=== PATIENT | female | born 1960 | race Caucasian/White ===

== ENCOUNTER 2018-02-24 00:49 | Outpatient (CLI) | payer BC, SELFPAY ==
--- NOTE | 2018-02-24 16:10 | DI.MAMMO_ITS ---
SYMPTOM/DIAGNOSIS: SCREENING, Z12.31 MAMMOGRAMS: Mammograms were interpreted according to the usual protocol including computer analysis with CAD system, tomosynthesis and C view imaging. Comparison is made with prior examinations. Breast density, Category B. No masses or microcalcifications are seen. There is nothing to suggest malignancy. IMPRESSION: Negative mammogram. Routine screening is recommended. Category 1. MQSA ASSESSMENT OF FINDINGS: Negative. Category 1. Patient will receive a letter notifying them of these results. BI-RADS category B. There are scattered areas of fibroglandular density.
== END 2018-02-24 01:09 ==
PROVIDERS: PCP Nurse Practitioner; Visit Provider Nurse Practitioner
DX: Z12.31 Encounter for screening mammogram for malignant neoplasm of breast (principal)
CPT/HCPCS: 77063; 77067

== ENCOUNTER 2018-02-27 07:25 | Outpatient (CLI) | payer BC, SELFPAY ==
[2018-02-27 07:48] LABS: HCT 43.3 % (36.0-46.0); HGB 15.2 g/dL (12.0-15.5); Mean Corp. HGB Concentration 35.1 g/dL (32.0-36.0); Mean Corpuscular Hemoglobin 34.6 pg (27.0-33.0); Mean Corpuscular Volume 98.6 fL (80-95); Mean Platelet Volume 9.2 fL (8.0-11.0); Platelet Count 277 x1000/uL (130-400); RBC 4.39 m/cumm (4.00-5.20); RBC Distribution Width 11.6 % (11.7-14.6); White Blood Cell Count 5.58 k/cumm (4.4-10.8)
[2018-02-27 08:34] LABS: ALT 23 U/L (12-78); AST 16 U/L (15-37); Albumin 3.8 g/dL (3.4-5.0); Alkaline Phosphatase 68 U/L (46-116); Anion Gap 9.7 mmol/L (3-11); BUN 15 mg/dL (7-18); Bilirubin, Total 1.1 mg/dL (0.2-1.0); CO2 28.3 mmol/L (21.0-32.0); Calcium 9.3 mg/dL (8.5-10.1); Chloride 101 mmol/L (98-107); Cholesterol 236 mg/dL (50-200); Glucose 100 mg/dL (70-100); HDL Cholesterol 92 mg/dL (40-60); LDL CHOLESTEROL 127 mg/dL (<100); Potassium 4.2 mmol/L (3.5-5.1); Sodium 139 mmol/L (136-145); TSH (W/Ref FT4) 2.96 uIU/mL (0.358-3.74); Total Protein 6.7 g/dL (6.4-8.2); Triglyceride 70 mg/dL (30-150)
== END 2018-02-27 07:45 ==
PROVIDERS: PCP Nurse Practitioner; Visit Provider Nurse Practitioner
DX: I35.0 Nonrheumatic aortic (valve) stenosis (principal); I47.1 Supraventricular tachycardia; E78.5 Hyperlipidemia, unspecified; R79.89 Other specified abnormal findings of blood chemistry
CPT/HCPCS: 36415; 80053; 80061; 83721; 85027; 84443

== ENCOUNTER 2018-04-17 03:14 | Emergency (ER) | payer BC, SELFPAY ==
[2018-04-17] VITALS (59 sets, daily range): BP systolic 120–176; BP diastolic 69–101; PULSE 63–89; RESP 9–27; TEMP 36.8; O2SAT 94–98
--- NOTE | 2018-04-17 03:39 | W.ED.GENAD ---
Discharge Plan Disposition Patient Disposition: [facility] INPATIENT Condition: Good Discharge Details Chief Complaint: Chest Pain Clinical Impression: Chest pain Primary Care Provider: Evelyne Hunt ED Provider: Yovani Barrera [place] Meds and New Rx's Prescriptions: No Action atorvastatin 10 mg tablet 10 mg PO DAILY RF: 0 biotin 5 mg capsule 5 mg PO DAILY RF: 0 diltiazem HCl 180 mg capsule,extended release 24hr 180 mg PO DAILY Qty: 90 RF: 3 clobetasol-emollient 0.05 % cream 15 gm Topical BID Qty: 1 RF: 5 Estring 2 mg (7.5 mcg /24 hour) ring 1 vag ring VG [id number] Qty: 1 RF: 5 hydrochlorothiazide 25 MG tablet 25 mg PO DAILY Qty: 90 RF: 3 diltiazem HCl 30 MG tablet 30 mg PO PRN Qty: 30 RF: 0 bupropion HCl [Wellbutrin XL] 300 mg tablet extended release 24 hr 300 mg PO QAM Qty: 90 RF: 3 Medical Decision Making Patient presenting with atypical chest pain lasting minutes. She does have risk factors. Her EKG is sinus rhythm at a rate of 89. She has subtle ST depression in V3 through V6 that is nondiagnostic. May have a little depression in lead II but otherwise the limb leads look good. There is no ST elevation. She is given aspirin. She is not having chest pain here. IV established and laboratory studies obtained. Chest x-ray obtained. Laboratory studies unremarkable other than being hemoconcentrated. First troponin negative. D-dimer negative. Chest x-ray per my review unremarkable. Patient's HEART score is [address] and with the ST depression despite the atypical presentation, I feel observation admission and stress testing is appropriate. Case discussed with hospitalist. Patient accepted for admission. Lab Data Lab results reviewed: Yes I reviewed the patient's lab results. ECG Data Attestation: I personally reviewed and interpreted this ECG (s) as follows: Prior ECG tracings: available for review Interpretation: Normal sinus rhythm at 89. Normal axis and intervals. ST depression noted in V3 through V6 approximately one box. Possible mild depression in lead II. This is new compared to old. HPI General Mode of arrival: ambulatory. Date/Time Provider Initiated Documentation: 04/17/18 03:38. Limitations to Documentation: no limitations. Information obtained by: patient. HPI Narrative: Patient presents to ED with complaint of chest pain. Patient reports that she has had intermittent left-sided chest pain lasting minutes at a time. It does not radiate anywhere. She has no associated symptoms with it. She has no trauma. She has not been ill. She has never had this before. She has known SVT and aortic stenosis. She does have high blood pressure and high cholesterol. She has brothers with heart disease at young age. She has not smoked in a long time. She is not having chest pain currently. Related Data Home Medications Medication Instructions Recorded Confirmed hydrochlorothiazide 25 mg PO DAILY #90 tab 04/23/17 04/17/18 diltiazem HCl 30 mg PO PRN #30 tab-cap 09/03/17 04/17/18 bupropion HCl XL 300 mg 24 hr 300 mg PO QAM #90 tab 12/23/17 04/17/18 tablet, extended release atorvastatin 10 mg tablet 10 mg PO DAILY 12/30/17 04/17/18 biotin 5 mg capsule 5 mg PO DAILY 02/04/18 04/17/18 diltiazem CD 180 mg 180 mg PO DAILY #90 tab-cap 02/04/18 04/17/18 capsule,extended release 24 hr clobetasol-emollient 0.05 % 15 gm TOPICAL BID #1 tube 03/09/18 04/17/18 topical cream estradiol 2 mg (7.5 mcg/24 hour) 1 vag ring VG [id number] #1 each 03/09/18 04/17/18 vaginal ring Previous Rx's Medication Instructions Recorded hydrochlorothiazide 25 mg PO DAILY #90 tab 04/23/17 diltiazem HCl 30 mg PO PRN #30 tab-cap 09/03/17 bupropion HCl XL 300 mg 24 hr 300 mg PO QAM #90 tab 12/23/17 tablet, extended release diltiazem CD 180 mg 180 mg PO DAILY #90 tab-cap 02/04/18 capsule,extended release 24 hr clobetasol-emollient 0.05 % 15 gm TOPICAL BID #1 tube 03/09/18 topical cream estradiol 2 mg (7.5 mcg/24 hour) 1 vag ring VG [id number] #1 each 03/09/18 vaginal ring Allergies Allergy/AdvReac Type Severity Reaction Status Date / Time paroxetine Allergy Intermediate Unverified 04/17/18 03:39 penicillin V Allergy Intermediate Unverified 04/17/18 03:39 sertraline AdvReac Intermediate Unverified 04/17/18 03:39 venlafaxine AdvReac Intermediate Unverified 04/17/18 03:39 General Stated Complaint: Chest Pain KADY: 2 Review of Systems Review of Systems All systems reviewed & are unremarkable except as noted in HPI and below Constitutional Denies body ache(s), Denies chills, Denies fatigue, Denies fever(s), Denies headache(s), Denies malaise and Denies weakness Eyes Denies change in vision, Denies eye discharge and Denies eye pain ENT Denies otalgia, Denies facial pain, Denies headache(s), Denies nasal congestion, Denies neck pain, Denies sinus pain and Denies sore throat Cardiovascular Reports chest pain, Denies diaphoresis, Denies syncope, Denies pedal edema, Denies edema, Denies lightheadedness, Denies radiating jaw, neck or arm pain, Denies palpitations, Denies dyspnea and Denies dyspnea on exertion Respiratory Denies cough, Denies pain on inspiration, Denies pain with cough, Denies dyspnea and Denies dyspnea on exertion Gastrointestinal Denies abdominal pain, Denies diarrhea, Denies nausea and Denies vomiting Genitourinary Denies hematuria, Denies dysuria and Denies pelvic pain Musculoskeletal Denies back pain, Denies myalgias, Denies arthralgias, Denies neck pain and Denies numbness Integumentary/Breasts Denies erythema and Denies rash Neurologic Denies confusion, Denies syncope, Denies headache(s), Denies focal weakness, Denies numbness and Denies weakness Psychiatric Denies confusion Endocrine Denies fatigue and Denies palpitations [facility] Medical History Elevated cholesterol Depression Hypertension Dyspareunia (Acute 12/02/14) Atrophic vaginitis (Chronic 11/28/16) 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 [employer] frequency: 5-6 times per week Smoking/Tobacco Use Status: Former Tobacco Use alcohol intake: current alcohol intake frequency: 0-2 drinks per day Alcohol type: wine substance use type: does not use Female Reproductive History Menstrual control method: none Menopause type: natural Date of menopause: 04/21/10 (approximately 50yo) History History 2 Para Hx # Term Pregnancies 2 Multiple births Hx # Pregnancies 0 Ectopic pregnancies 0 AB induced Hx Number of Living Children AB spontaneous Exam Const General: cooperative, comfortable and no acute distress Orientation: alert and oriented x3 HENMT Head: normocephalic and atraumatic Mouth: moist mucous membranes Eyes Conjunctivae: conjunctivae normal Pupils: PERRL EOM: EOM intact bilaterally Neck Neck: normal visual inspection, trachea midline and supple Chest Chest: no tenderness Resp Effort & Inspection: normal respiratory effort Auscultation: clear to auscultation bilaterally Cardio Rate: regular rate Rhythm: regular rhythm Heart Sounds: S1 normal, S2 normal and murmur Pulses: normal peripheral pulses GI Inspection: non-distended Palpation: soft, not firm, no guarding and nontender Skin General skin exam: no erythema Rashes: no rashes Trauma: no lacerations or abrasions Other: warm and dry Neuro General: alert, oriented x3, no focal motor deficits and CN's II-XI intact bilaterally Cognition: normal cognition Speech: speech normal Sensory Exam: no sensory deficits noted Extrem General: normal to inspection, full ROM, no clubbing, cyanosis or edema and no calf tenderness Psych Appearance: grossly normal Mental Status: mental status grossly normal Affect: normal affect Attitude: cooperative Course Vital Signs Temperature 98.2 F 04/17/18 03:35 Pulse 78 04/17/18 03:35 Respiratory Rate 12 04/17/18 03:35 Blood Pressure 166/87 H 04/17/18 03:35 Pulse Oximetry 97 04/17/18 03:35 Temperature 98.2 F 04/17/18 03:35 Temperature Source Temporal Artery Scan 04/17/18 03:35 Pulse 78 04/17/18 03:35 Respiratory Rate 12 04/17/18 03:35 Respiratory Effort Non-Labored 04/17/18 03:35 Blood Pressure 166/87 H 04/17/18 03:35 Blood Pressure Position Sitting 04/17/18 03:35 Pulse Oximetry 97 04/17/18 03:35 Oxygen Delivery Method Room Air 04/17/18 03:35 Oxygen Flow Rate 0 04/17/18 03:35 Pain Level 7 04/17/18 03:35
[2018-04-17 03:55] LABS: Abs Immature Grans 0.01 k/cumm (0.0-0.09); Absolute Basophil Count 0.09 k/cumm (0.0-0.2); Absolute Eosinophil Count 0.27 k/cumm (0.0-0.7); Absolute Neutrophil Count 2.97 k/cumm (1.2-6.7); Basophils % 1.5; Eosinophils % 4.6; HCT 47.4 % (36.0-46.0); HGB 16.6 g/dL (12.0-15.5); Immature Grans % 0.2; Lymphocytes % 34.2; Mean Corpuscular Hemoglobin 34.4 pg (27.0-33.0); Mean Corpuscular Volume 98.3 fL (80-95); Mean Platelet Volume 9.4 fL (8.0-11.0); Monocytes % 8.6; Neutrophils % 50.9; Platelet Count 284 x1000/uL (130-400); RBC 4.82 m/cumm (4.00-5.20); RBC Distribution Width 11.5 % (11.7-14.6); White Blood Cell Count 5.84 k/cumm (4.4-10.8)
[2018-04-17] MEDS: Aspirin 81 MG CHEW 324 MG CH (03:55)
--- NOTE | 2018-04-17 04:00 | DI.RAD_ITS ---
SYMPTOM/DIAGNOSIS: CHEST PAIN PA AND LATERAL CHEST; The heart is normal in size. The lungs are clear. The mediastinal structures and pleura appear intact. CONCLUSION: Normal chest. No evidence of acute cardiopulmonary disease.
[2018-04-17 04:10] LABS: ALT 27 U/L (12-78); AST 18 U/L (15-37); Albumin 4.2 g/dL (3.4-5.0); Alkaline Phosphatase 86 U/L (46-116); Anion Gap 9.4 mmol/L (3-11); BUN 12 mg/dL (7-18); Bilirubin, Total 0.7 mg/dL (0.2-1.0); CO2 28.6 mmol/L (21.0-32.0); CREATININE 0.68 mg/dL (0.55-1.02); Calcium 9.6 mg/dL (8.5-10.1); Chloride 101 mmol/L (98-107); Glucose 107 mg/dL (70-100); Potassium 3.8 mmol/L (3.5-5.1); Sodium 139 mmol/L (136-145); Total Protein 8.1 g/dL (6.4-8.2)
[2018-04-17 04:12] LABS: Troponin I < 0.02 ng/mL (0.00-0.06)
[2018-04-17 04:25] LABS: D-Dimer 202 ng/mlFEU (<500)
--- NOTE | 2018-04-17 05:45 | DI.VRAD_ITS ---
EXAM: XR Chest, 2 Views EXAM DATE/TIME: 04/17/2018 3:49 AM CLINICAL HISTORY: 57 years old, female; Pain; Chest pain; Type not specified; Patient HX: Chest pain since last evening, no prior surgery TECHNIQUE: XR of the chest, 2 views. COMPARISON: CR LEFT RIBS TO INCLUDE CXR 07/07/2017 4:05 PM FINDINGS: Lungs: The lung rodríguez appear clear bilaterally. Pleural space: No pleural effusion or pneumothorax is seen. Heart/Mediastinum: The heart is normal in size. The mediastinal contours appear normal. Bones/joints: The visualized bony structures appear grossly intact. IMPRESSION: No active disease is seen in the chest. Dictated and Authenticated by: Alessandro Zaidi MD. Ordering:NEYDA Pina MD
[2018-04-17 07:45] LABS: Troponin I 0.02 ng/mL (0.00-0.06)
== END 2018-04-17 10:24 | disposition short-term general hospital (02) ==
PROVIDERS: Emergency Medicine; Emergency Provider Student in an Organized Health Care Education/Training Program; PCP Nurse Practitioner
DX: R07.9 Chest pain, unspecified (principal); I47.1 Supraventricular tachycardia; I35.0 Nonrheumatic aortic (valve) stenosis; I10 Essential (primary) hypertension; E78.5 Hyperlipidemia, unspecified; Z82.49 Family history of ischemic heart disease and other diseases of the circulatory system
CPT/HCPCS: 36415; 80053; 93005; 96374; 99285; 71046; 83735; 84484; 85025; 85379; 93010; J2405

== ENCOUNTER 2019-04-08 07:41 | Outpatient (CLI) | payer OTHER, SELFPAY ==
[2019-04-08 08:07] LABS: HCT 43.4 % (36.0-46.0); HGB 15.1 g/dL (12.0-15.5); Mean Corp. HGB Concentration 34.8 g/dL (32.0-36.0); Mean Corpuscular Hemoglobin 33.9 pg (27.0-33.0); Mean Corpuscular Volume 97.3 fL (80-95); Mean Platelet Volume 9.4 fL (8.0-11.0); Platelet Count 277 x1000/uL (130-400); RBC 4.46 m/cumm (4.00-5.20); RBC Distribution Width 11.5 % (11.7-14.6); White Blood Cell Count 5.29 k/cumm (4.4-10.8)
[2019-04-08 09:30] LABS: ALT 25 U/L (14-59); AST 15 U/L (15-37); Albumin 4.1 g/dL (3.4-5.0); Alkaline Phosphatase 71 U/L (46-116); Anion Gap 8.5 mmol/L (3-11); BUN 14 mg/dL (7-18); Bilirubin, Total 0.9 mg/dL (0.2-1.0); CO2 28.5 mmol/L (21.0-32.0); CREATININE 0.72 mg/dL (0.55-1.02); Calcium 9.1 mg/dL (8.5-10.1); Calculated LDL 134 mg/dL; Chloride 102 mmol/L (98-107); Cholesterol 239 mg/dL (<200); Glucose 88 mg/dL (74-106); HDL Cholesterol 88 mg/dL (40-60); Potassium 3.9 mmol/L (3.5-5.1); Sodium 139 mmol/L (136-145); Total Protein 7.4 g/dL (6.4-8.2); Triglyceride 88 mg/dL (<150)
== END 2019-04-08 08:01 ==
PROVIDERS: PCP Nurse Practitioner; Visit Provider Nurse Practitioner
DX: E78.5 Hyperlipidemia, unspecified (principal)
CPT/HCPCS: 36415; 80053; 80061; 85027

== ENCOUNTER 2019-05-05 13:37 | Outpatient (CLI) | payer OTHER, SELFPAY ==
--- NOTE | 2019-05-05 14:00 | DI.US_ITS ---
APPROVED REPORT EXAM: Comprehensive 2D, Doppler, and color-flow Echocardiogram Patient Location: Out-Patient Undercutter: Luana Tariq RDCS (AE) Rhythm: NSR Indications: non rheumatic moderate aortic stenosis i35.0 Conclusion Left Ventricle : The left ventricle is normal size. There is normal left ventricular wall thickness. The left ventricular systolic function is normal. The left ventricular ejection fraction is within th e normal range. There is normal LV segmental wall motion. Diastolic function is indeterminate. LVEF i s estimated to be 60-65%. Right Ventricle : The right ventricle is normal size. The right ventricular systolic function appears normal. Atria : The left atrium size is mildly dilated. The right atrium size is normal. Aortic Valve : Aortic valve leaflets are moderately thickened. Moderate aortic valve sclerosis. Aorti c valve is possibly bicuspid. Moderate regurgitation is present. Moderate to severe aortic stenosis ( mean gradient is 39 m mercury. Aortic valve area is 1.01 cm???). Mitral Valve : Mitral valve leaflets are mildly thickened. Mild mitral regurgitation. Mild mitral aly ve prolapse of PVML. No evidence of mitral valve stenosis. Tricuspid Valve : Tricuspid valve leaflets are midly thickened but open well. Mild tricuspid regurgit ation. Great Vessels : IVC is normal in size and collapses >50% with inspiration. Estimated RVSP is 27-30 m mHg. Compared to prior echocardiogram dated 08/28/2017, patient's aortic valve stenosis has worsened with a mean gradient increasing from 30 to 39 mmHg. LV dimensions remain within normal limits. Wall motion Left Ventricle The left ventricle is normal size. The left ventricular systolic function is normal. The left ventric ular ejection fraction is within the normal range. There is normal left ventricular wall thickness. T here is normal LV segmental wall motion. Diastolic function is indeterminate LVEF is estimated to be 60-65%. Right Ventricle The right ventricle is normal size. The right ventricular systolic function appears normal. Atria The left atrium size is mildly dilated. The right atrium size is normal. Aortic Valve Aortic valve leaflets are moderately thickened. Moderate aortic valve sclerosis. Aortic valve is poss ibly bicuspid. Moderate to severe aortic stenosis (mean gradient is 39 m mercury. Aortic valve area i s 1.01 cm???). Moderate regurgitation is present. Mitral Valve Mitral valve leaflets are mildly thickened. No evidence of mitral valve stenosis. Mild mitral regurgi tation. Mild mitral valve prolapse of PVML. Tricuspid Valve Tricuspid valve leaflets are midly thickened but open well. Mild tricuspid regurgitation. Great Vessels The aortic root is normal in size. The ascending aorta is top normal in size. IVC is normal in size a nd collapses >50% with inspiration. Estimated RVSP is 27-30 mmHg. Pericardium There is no pericardial effusion. 2D Dimensions IVSd 0.80 cm F: 0.6-1.0 LV EDV A2C 68.30 mL PWd 0.85 cm F: 0.6 - 1.0 LV EDV A4C 74.70 mL LVDd 4.95 cm F: 3.8 - 5.2 LA Volume Index A2C 39.32 mL/m2 LVDs 3.15 cm F: 2.2 - 3.5 LA Volume Index A4C 39.45 mL/m2 Aortic Root 3.25 cm F: 2.7 - 3.3 LA Volume Index Biplane 40.63 mL/m2 RVID Base (AP4) 3.40 cm (M/F) 2.5-4.1 LA Area A4C 20.58 cm2 RA Area A4C 16.44 cm2 LA Area A2C 21.19 cm2 LVOT 2.00 cm (M/F) 1.5-2.5 EF AP4 64.93 % Ascending Aorta 3.50 cm F: 2.3 - 3.1 EF AP2 55.93 % LVEF (Teich) 65.67 % EF BP 56.42 % LVEF (Arndt's) 56.42 % F: 54 - 74 IVC 2.01 cm LV Volume 56.59 mL F: 46 - 106 LV Volume Index 33.88 mL/m2 F: 29 - 61 FS 36.20 % LV Diastology E/A Ratio 1.3 MED E' 0.07 (>0.07 m/s) LV E/e MED 10.50 (<14) LAT E' 0.08 (>0.1 m/s) LV E/e LAT 9.10 (<14) Aortic Valve LVOT Area 3.21 cm2 LVOT Vmax 1.22 m/s LVOT Mean Kiko. 0.91 m/s LVOT Peak Gr. 6.0 mmHg LVOT Mean Gr. 3.7 mmHg AoV Area/ BSA (Vmax) 0.56 cm2/m2 LVOT VTI 0.300 m AoV Vmax 4.20 (0.5-1.3 m/s) SUDHAKAR Mean Kiko. Index 0.60 cm2/m2 AoV Mean Kiko. 2.92 m/s AoV Peak Grad 70.5 mmHg AI PHT 250.74 msec AoV Mean Grad 38.9 (<5 mmHg) AoV VTI 0.956 (0.18-0.25 m) AV Regurg Decel. 864.61 msec AoV Area VTI 1.01 (2.5-4.5 cm2) AoV Area/ BSA (VTI) 0.60 cm/m2 Mitral Valve MV E Max Kiko. 0.76 (0.4-1.3 m/s) MVA VTI 9.52 (4.0-6.0 cm2) MV A Velocity 0.60 (0.4-1.3 m/s) E/A Ratio 1.21 MV Decel. Time 201.45 (160-240 msec) MV PHT 58.43 msec MVA PHT 3.75 cm2 Pulmonary Valve PV Peak Velocity 0.82 (0.5-1.5 m/s) RVOT Peak Gr. 1.75 mmHg RVOT Peak Kiko. 0.66 m/s RVOT Mean Gr. 1.20 mmHg RVOT VTI 0.15 m Tricuspid Valve TR P. Velocity 2.61 m/s TV Regurg Vmax 2.61 m/s RAP Estimate 3.00 mmHg RVSP 30.19 mmHg TR P. Gradient 27.15 mmHg
== END 2019-05-05 13:57 ==
PROVIDERS: PCP Nurse Practitioner; Visit Provider Nurse Practitioner
DX: I35.2 Nonrheumatic aortic (valve) stenosis with insufficiency (principal); I34.1 Nonrheumatic mitral (valve) prolapse; I10 Essential (primary) hypertension; E78.5 Hyperlipidemia, unspecified
CPT/HCPCS: 93306

== ENCOUNTER 2019-07-05 10:38 | Outpatient (CLI) | payer OTHER, SELFPAY ==
--- NOTE | 2019-07-05 13:00 | DI.US_ITS ---
EXAM: US PELVIS AND TRANSVAGINAL CLINICAL HISTORY: PELVIC PAIN FOR TWO WEEKS, R10.2. TECHNIQUE: Transabdominal and transvaginal pelvic ultrasound was performed using standard protocol. COMPARISON: PELVIS TRANSVAG US from 05/19/2012 ABD PELVIS WITH CONTRAST from 08/26/2013 FINDINGS: KIDNEYS: Kidneys are symmetric in size. No evidence of renal calculi. No evidence of hydronephrosis. No renal mass or cyst identified. Note is made again of a simple cyst in the right lobe of the liver. This was present on the CT scan of the abdomen and pelvis from 08/26/2013. UTERUS: Position: Anteverted. Size: 6.5 x 2.9 x 3.8 cm Endometrium: 0.2 cm. Normal for patient's menstrual status. Myometrium: 2 discrete fundal masses are noted. The larger measures 1.7 x 1.6 x 1.9 cm. The smaller measures 0.9 x 0.9 x 1.0 cm. These are most suggestive of uterine fibroids. Cervix: Unremarkable. OVARIES: Right: 3.8 x 1.3 x 3.3 cm Cyst or mass: Complex fluid is seen around the right ovary. This may represent hemorrhagic or infect ed material. Left: 3.2 x 1.6 x 2.9 cm Cyst or mass: There is a 7.3 x 5.4 cm complex round lesion surrounding the left ovary. No internal b lood flow is seen. There is posterior acoustic enhancement. DOPPLER: Color: Symmetric and uniform flow to both ovaries. No hyperemia. Duplex: Normal ovarian arterial waveforms visualized. CUL-DE-SAC: Free fluid: Complex fluid is seen in the cul-de-sac and pelvis. This may represent hemorrhagic or in fected material. Other: None. IMPRESSION: 1. Normal sonographic appearance of the kidneys. 2. Uterine fibroids. 3. 7.3 x 5.4 cm complex lesion surrounding the left ovary. There is internal debris and posterior ac oustic enhancement suggesting complex fluid. 4. Complex free fluid in the pelvis and cul-de-sac. This may represent hemorrhage or infection. 5. CT scan of the abdomen and pelvis with oral and intravenous contrast material is recommended for f urther evaluation. DATA REPOSITORY:
== END 2019-07-05 10:58 ==
PROVIDERS: PCP Nurse Practitioner; Visit Provider Nurse Practitioner
DX: R10.2 Pelvic and perineal pain (principal); K76.89 Other specified diseases of liver; D25.9 Leiomyoma of uterus, unspecified; N83.8 Other noninflammatory disorders of ovary, fallopian tube and broad ligament
CPT/HCPCS: 76830; 76856

== ENCOUNTER 2019-07-05 13:01 | Outpatient (REF) | payer OTHER, SELFPAY | END 2019-07-05 13:21 | LOC: LBN 13:01 | PROVIDERS: PCP Nurse Practitioner; Visit Provider Nurse Practitioner | DX: R10.2 Pelvic and perineal pain (principal) | CPT/HCPCS: 87086 ==

== ENCOUNTER 2019-07-08 00:35 | Outpatient (CLI) | payer OTHER, SELFPAY ==
--- NOTE | 2019-07-08 06:45 | DI.CT_ITS ---
EXAM: CT ABDOMEN PELVIS W CLINICAL HISTORY: PELVIC Pain, large left ovarian complex cyst,FREE FLUID,N83.292,R10.2 COMPARISON: ABD PELVIS WITH CONTRAST from 08/26/2013 US PELVIS TRANSVAGINAL from 07/05/2019 US PELVIS TRANSVAGINAL from 07/05/2019 FINDINGS: CT examination of the abdomen and pelvis was performed with a bolus infusion of 100 cc of Omnipaque 3 50 and ingestion of dilute barium. Images obtained through the lung bases are unremarkable. There is mild hepatic steatosis and there is a low-attenuation, well-circumscribed posterior segment right hepatic lobe lesion consistent with cyst, a cyst was also present although smaller on prior CT of 2013 at this site. Spleen is unremarkable in appearance. No biliary dilatation or gallbladder ab normality by CT criteria. Pancreas is unremarkable. Adrenals and kidneys appear normal, no evidence of urinary tract calcification or obstruction. Abdominal aorta is of normal diameter and no major vascular abnormality is seen. There are vascular clips at the expected site of the appendix, no evidence of appendicitis, diverticu litis or bowel obstruction. No significant abdominal wall hernia seen. No gross abdominal or pelvic adenopathy. There is a complex multi cystic mass of the pelvis with multiple apparent solid components, overall a j ulis the level of the uterine fundus, this measures about 12 x 8 cm in diameter. Although the findin gs could represent inflammatory process, in this age group neoplastic disease is much more likely, ov cj carcinoma is suspected. Urinary bladder grossly unremarkable although deformed by the pelvic m ass. Uterus grossly intact, please see the recent ultrasound report. IMPRESSION: Large complex pelvic mass, multi septated with significant solid components, findings are worrisome f or ovarian carcinoma in this age group. Small quantity of free pelvic fluid noted but no general asc ites. No other significant findings apart from hepatic steatosis.
[2019-07-08] MEDS: Breeza Beverage 473 ML BTL PO ×2 (07:31→07:32)
[2019-07-08] MEDS: Omnipaque 350 MG/ML 50 ML BTL IJ (07:31)
[2019-07-08 07:37] LABS: CREATININE 0.65 mg/dL (0.55-1.02)
[2019-07-08] MEDS: Omnipaque 350 MG/ML 100 ML BTL IV (08:59)
== END 2019-07-08 00:55 ==
PROVIDERS: PCP Nurse Practitioner; Visit Provider Nurse Practitioner
DX: R10.2 Pelvic and perineal pain (principal); N83.292 Other ovarian cyst, left side; K76.89 Other specified diseases of liver; R19.07 Generalized intra-abdominal and pelvic swelling, mass and lump
CPT/HCPCS: 74177; 82565; J3490; Q9967

== ENCOUNTER 2019-08-25 02:07 | Outpatient (CLI) | payer OTHER, SELFPAY ==
[2019-08-25 15:16] LABS: Abs Immature Grans 0.01 k/cumm (0.0-0.09); Absolute Basophil Count 0.04 k/cumm (0.0-0.2); Absolute Eosinophil Count 0.31 k/cumm (0.0-0.7); Absolute Lymphocyte Count 1.95 k/cumm (1.2-3.4); Absolute Monocyte Count 0.54 k/cumm (0.11-0.7); Basophils % 0.5; Eosinophils % 3.9; HCT 38.8 % (36.0-46.0); HGB 13.7 g/dL (12.0-15.5); Immature Grans % 0.1 %; Lymphocytes % 24.2; Mean Corp. HGB Concentration 35.3 g/dL (32.0-36.0); Mean Corpuscular Hemoglobin 33.6 pg (27.0-33.0); Mean Corpuscular Volume 95.1 fL (80-95); Monocytes % 6.7; Neutrophils % 64.6; Platelet Count 294 x1000/uL (130-400); RBC 4.08 m/cumm (4.00-5.20); RBC Distribution Width 11.8 % (11.7-14.6); White Blood Cell Count 8.05 k/cumm (4.4-10.8)
[2019-08-25 16:10] LABS: ALT 24 U/L (14-59); AST 15 U/L (15-37); Albumin 4.1 g/dL (3.4-5.0); Alkaline Phosphatase 93 U/L (46-116); Anion Gap 7.9 mmol/L (3-11); BUN 14 mg/dL (7-18); Bilirubin, Total 0.8 mg/dL (0.2-1.0); CO2 28.1 mmol/L (21.0-32.0); CREATININE 0.59 mg/dL (0.55-1.02); Calcium 9.7 mg/dL (8.5-10.1); Chloride 100 mmol/L (98-107); Glucose 104 mg/dL (74-106); Potassium 3.3 mmol/L (3.5-5.1); Sodium 136 mmol/L (136-145); Total Protein 7.2 g/dL (6.4-8.2)
[2019-08-26 11:49] LABS: CA 125 23 U/mL (<30)
== END 2019-08-25 02:27 ==
PROVIDERS: PCP Nurse Practitioner; Visit Provider Obstetrics & Gynecology Gynecologic Oncology
DX: C56.9 Malignant neoplasm of unspecified ovary (principal)
CPT/HCPCS: 36415; 80053; 86304; 85025

== ENCOUNTER 2019-09-14 01:55 | Outpatient (CLI) | payer OTHER, SELFPAY ==
[2019-09-14 12:37] LABS: Abs Immature Grans 0.01 k/cumm (0.0-0.09); Absolute Basophil Count 0.05 k/cumm (0.0-0.2); Absolute Eosinophil Count 0.08 k/cumm (0.0-0.7); Absolute Lymphocyte Count 1.58 k/cumm (1.2-3.4); Absolute Monocyte Count 0.84 k/cumm (0.11-0.7); Absolute Neutrophil Count 1.16 k/cumm (1.2-6.7); Basophils % 1.3; Eosinophils % 2.2; Immature Grans % 0.3 %; Lymphocytes % 42.5; Mean Corp. HGB Concentration 35.9 g/dL (32.0-36.0); Mean Corpuscular Hemoglobin 33.4 pg (27.0-33.0); Mean Corpuscular Volume 93.1 fL (80-95); Mean Platelet Volume 9.2 fL (8.0-11.0); Monocytes % 22.6; Neutrophils % 31.1; Platelet Count 273 x1000/uL (130-400); RBC 4.19 m/cumm (4.00-5.20); RBC Distribution Width 12.5 % (11.7-14.6); White Blood Cell Count 3.72 k/cumm (4.4-10.8)
[2019-09-14 13:50] LABS: ALT 35 U/L (14-59); AST 19 U/L (15-37); Albumin 4.1 g/dL (3.4-5.0); Alkaline Phosphatase 84 U/L (46-116); Anion Gap 9.6 mmol/L (3-11); BUN 15 mg/dL (7-18); Bilirubin, Total 0.8 mg/dL (0.2-1.0); CO2 27.4 mmol/L (21.0-32.0); CREATININE 0.64 mg/dL (0.55-1.02); Calcium 9.5 mg/dL (8.5-10.1); Chloride 99 mmol/L (98-107); Glucose 98 mg/dL (74-106); Potassium 3.5 mmol/L (3.5-5.1); Sodium 136 mmol/L (136-145); Total Protein 7.2 g/dL (6.4-8.2)
[2019-09-15 10:17] LABS: CA 125 12 U/mL (<30)
== END 2019-09-14 02:15 ==
PROVIDERS: PCP Nurse Practitioner; Visit Provider Obstetrics & Gynecology Gynecologic Oncology
DX: C56.9 Malignant neoplasm of unspecified ovary (principal)
CPT/HCPCS: 36415; 80053; 86304; 85025

== ENCOUNTER 2019-10-18 01:53 | Outpatient (RCR) | payer OTHER, SELFPAY ==
[2019-09-27] MEDS: Normal Saline Flush 10 ML SYR IVP (11:22)
[2019-09-27 11:23] LABS: Abs Immature Grans 0.02 k/cumm (0.0-0.09); Absolute Basophil Count 0.03 k/cumm (0.0-0.2); Absolute Eosinophil Count 0.12 k/cumm (0.0-0.7); Absolute Lymphocyte Count 1.39 k/cumm (1.2-3.4); Absolute Monocyte Count 0.26 k/cumm (0.11-0.7); Absolute Neutrophil Count 4.09 k/cumm (1.2-6.7); Basophils % 0.5; HCT 36.7 % (36.0-46.0); HGB 13.4 g/dL (12.0-15.5); Immature Grans % 0.3 %; Lymphocytes % 23.5; Mean Corp. HGB Concentration 36.5 g/dL (32.0-36.0); Mean Corpuscular Hemoglobin 33.6 pg (27.0-33.0); Mean Platelet Volume 9.1 fL (8.0-11.0); Monocytes % 4.4; Neutrophils % 69.3; Platelet Count 213 x1000/uL (130-400); RBC 3.99 m/cumm (4.00-5.20); RBC Distribution Width 12.8 % (11.7-14.6); White Blood Cell Count 5.91 k/cumm (4.4-10.8)
[2019-09-27] MEDS: Heparin 500 UNITS/5 ML SYRINGE IV (11:23)
[2019-10-04] MEDS: Heparin 500 UNITS/5 ML SYRINGE IV (11:06)
[2019-10-04] MEDS: Normal Saline Flush 10 ML SYR IVP (11:06)
[2019-10-04 11:55] LABS: Absolute Basophil Count 0.02 k/cumm (0.0-0.2); Absolute Eosinophil Count 0.05 k/cumm (0.0-0.7); Absolute Lymphocyte Count 1.34 k/cumm (1.2-3.4); Absolute Monocyte Count 0.61 k/cumm (0.11-0.7); Absolute Neutrophil Count 2.01 k/cumm (1.2-6.7); Basophils % 0.5; Eosinophils % 1.2; HCT 39.1 % (36.0-46.0); HGB 13.9 g/dL (12.0-15.5); Lymphocytes % 33.3; Mean Corp. HGB Concentration 35.5 g/dL (32.0-36.0); Mean Corpuscular Volume 95.6 fL (80-95); Mean Platelet Volume 9.4 fL (8.0-11.0); Monocytes % 15.1; Neutrophils % 49.9; Platelet Count 231 x1000/uL (130-400); RBC 4.09 m/cumm (4.00-5.20); White Blood Cell Count 4.03 k/cumm (4.4-10.8)
[2019-10-07 11:15] LABS: Abs Immature Grans 0.01 k/cumm (0.0-0.09); Absolute Basophil Count 0.02 k/cumm (0.0-0.2); Absolute Eosinophil Count 0.05 k/cumm (0.0-0.7); Absolute Monocyte Count 0.59 k/cumm (0.11-0.7); Absolute Neutrophil Count 2.42 k/cumm (1.2-6.7); Basophils % 0.4; Eosinophils % 1.1; HCT 37.8 % (36.0-46.0); HGB 13.5 g/dL (12.0-15.5); Immature Grans % 0.2 %; Lymphocytes % 32.7; Mean Corp. HGB Concentration 35.7 g/dL (32.0-36.0); Mean Corpuscular Hemoglobin 34.3 pg (27.0-33.0); Mean Corpuscular Volume 95.9 fL (80-95); Mean Platelet Volume 8.8 fL (8.0-11.0); Monocytes % 12.9; Neutrophils % 52.7; Platelet Count 226 x1000/uL (130-400); RBC 3.94 m/cumm (4.00-5.20); RBC Distribution Width 14.4 % (11.7-14.6); White Blood Cell Count 4.59 k/cumm (4.4-10.8)
[2019-10-07 11:30] LABS: ALT 35 U/L (14-59); AST 19 U/L (15-37); Albumin 4.1 g/dL (3.4-5.0); Alkaline Phosphatase 76 U/L (46-116); Anion Gap 9.2 mmol/L (3-11); BUN 14 mg/dL (7-18); Bilirubin, Total 0.9 mg/dL (0.2-1.0); CO2 27.8 mmol/L (21.0-32.0); CREATININE 0.78 mg/dL (0.55-1.02); Calcium 9.2 mg/dL (8.5-10.1); Chloride 98 mmol/L (98-107); Glucose 103 mg/dL (74-106); Potassium 3.7 mmol/L (3.5-5.1); Sodium 135 mmol/L (136-145); Total Protein 7.6 g/dL (6.4-8.2)
[2019-10-07] MEDS: Heparin 500 UNITS/5 ML SYRINGE IV (11:45)
[2019-10-07] MEDS: Normal Saline Flush 10 ML SYR IVP (11:45)
[2019-10-08 11:33] LABS: CA 125 10 U/mL (<30)
[2019-10-18 11:07] LABS: Abs Immature Grans 0.01 k/cumm (0.0-0.09); Absolute Basophil Count 0.02 k/cumm (0.0-0.2); Absolute Eosinophil Count 0.08 k/cumm (0.0-0.7); Absolute Lymphocyte Count 1.38 k/cumm (1.2-3.4); Absolute Monocyte Count 0.21 k/cumm (0.11-0.7); Absolute Neutrophil Count 2.83 k/cumm (1.2-6.7); Basophils % 0.4; Eosinophils % 1.8; HCT 35.4 % (36.0-46.0); HGB 12.8 g/dL (12.0-15.5); Immature Grans % 0.2 %; Lymphocytes % 30.5; Mean Corp. HGB Concentration 36.2 g/dL (32.0-36.0); Mean Corpuscular Hemoglobin 34.3 pg (27.0-33.0); Mean Corpuscular Volume 94.9 fL (80-95); Mean Platelet Volume 8.9 fL (8.0-11.0); Monocytes % 4.6; Neutrophils % 62.5; Platelet Count 166 x1000/uL (130-400); RBC 3.73 m/cumm (4.00-5.20); RBC Distribution Width 14.1 % (11.7-14.6); White Blood Cell Count 4.53 k/cumm (4.4-10.8)
[2019-10-18] MEDS: Heparin 500 UNITS/5 ML SYRINGE IV (11:25)
[2019-10-18] MEDS: Normal Saline Flush 10 ML SYR IVP (11:25)
== END 2019-10-19 23:59 | disposition home or self-care (01) ==
LOC: INF 01:53
PROVIDERS: PCP Nurse Practitioner; Visit Provider Obstetrics & Gynecology Gynecologic Oncology
DX: C56.9 Malignant neoplasm of unspecified ovary (principal); Z45.2 Encounter for adjustment and management of vascular access device
CPT/HCPCS: 36591; 80053; 86304; 85025

== ENCOUNTER 2019-10-26 07:55 | Outpatient (CLI) | payer OTHER, SELFPAY ==
[2019-10-26 22:51] LABS: COVID-19 RT-PCR UVMMC Result Negative (Negative)
== END 2019-10-26 08:15 ==
PROVIDERS: PCP Nurse Practitioner; Visit Provider Nurse Practitioner
DX: Z11.59 Encounter for screening for other viral diseases (principal)
CPT/HCPCS: U0003

== ENCOUNTER 2019-11-18 01:56 | Outpatient (RCR) | payer OTHER, SELFPAY ==
[2019-10-25 11:45] LABS: Absolute Basophil Count 0.02 k/cumm (0.0-0.2); Absolute Eosinophil Count 0.02 k/cumm (0.0-0.7); Absolute Lymphocyte Count 1.09 k/cumm (1.2-3.4); Absolute Monocyte Count 0.46 k/cumm (0.11-0.7); Basophils % 0.8; Eosinophils % 0.8; HGB 12.6 g/dL (12.0-15.5); Lymphocytes % 42.1; Mean Corpuscular Hemoglobin 34.8 pg (27.0-33.0); Mean Corpuscular Volume 96.7 fL (80-95); Mean Platelet Volume 8.9 fL (8.0-11.0); Monocytes % 17.8; Neutrophils % 38.5; Platelet Count 270 x1000/uL (130-400); RBC 3.62 m/cumm (4.00-5.20); RBC Distribution Width 15.7 % (11.7-14.6); White Blood Cell Count 2.59 k/cumm (4.4-10.8)
[2019-10-25] MEDS: Normal Saline Flush 10 ML SYR IVP (12:05)
[2019-10-25] MEDS: Heparin 500 UNITS/5 ML SYRINGE IV (12:05)
[2019-10-28] MEDS: Normal Saline Flush 10 ML SYR IVP (10:58)
[2019-10-28] MEDS: Heparin 500 UNITS/5 ML SYRINGE IV (10:58)
[2019-10-28 11:18] LABS: Abs Immature Grans 0.01 k/cumm (0.0-0.09); Absolute Basophil Count 0.01 k/cumm (0.0-0.2); Absolute Eosinophil Count 0.03 k/cumm (0.0-0.7); Absolute Lymphocyte Count 1.27 k/cumm (1.2-3.4); Absolute Monocyte Count 0.57 k/cumm (0.11-0.7); Absolute Neutrophil Count 1.73 k/cumm (1.2-6.7); Basophils % 0.3; Eosinophils % 0.8; HCT 36.2 % (36.0-46.0); Immature Grans % 0.3 %; Lymphocytes % 35.1; Mean Corp. HGB Concentration 35.9 g/dL (32.0-36.0); Mean Corpuscular Hemoglobin 34.9 pg (27.0-33.0); Mean Corpuscular Volume 97.3 fL (80-95); Mean Platelet Volume 8.6 fL (8.0-11.0); Monocytes % 15.7; Neutrophils % 47.8; Platelet Count 323 x1000/uL (130-400); RBC 3.72 m/cumm (4.00-5.20); RBC Distribution Width 15.8 % (11.7-14.6); White Blood Cell Count 3.62 k/cumm (4.4-10.8)
[2019-10-28 11:37] LABS: ALT 32 U/L (14-59); AST 19 U/L (15-37); Alkaline Phosphatase 76 U/L (46-116); Anion Gap 9.8 mmol/L (3-11); BUN 12 mg/dL (7-18); Bilirubin, Total 0.9 mg/dL (0.2-1.0); CO2 28.2 mmol/L (21.0-32.0); CREATININE 0.66 mg/dL (0.55-1.02); Calcium 9.7 mg/dL (8.5-10.1); Chloride 98 mmol/L (98-107); Glucose 109 mg/dL (74-106); Potassium 3.5 mmol/L (3.5-5.1); Sodium 136 mmol/L (136-145); Total Protein 7.8 g/dL (6.4-8.2)
[2019-10-29 10:07] LABS: CA 125 9 U/mL (<30)
[2019-11-08] MEDS: Heparin 500 UNITS/5 ML SYRINGE IV (11:26)
[2019-11-08] MEDS: Normal Saline Flush 10 ML SYR IVP (11:26)
[2019-11-08 11:35] LABS: Abs Immature Grans 0.02 k/cumm (0.0-0.09); Absolute Basophil Count 0.03 k/cumm (0.0-0.2); Absolute Eosinophil Count 0.05 k/cumm (0.0-0.7); Absolute Lymphocyte Count 1.16 k/cumm (1.2-3.4); Absolute Monocyte Count 0.15 k/cumm (0.11-0.7); Absolute Neutrophil Count 2.83 k/cumm (1.2-6.7); Basophils % 0.7; Eosinophils % 1.2; HCT 32.6 % (36.0-46.0); HGB 11.7 g/dL (12.0-15.5); Immature Grans % 0.5 %; Lymphocytes % 27.4; Mean Corp. HGB Concentration 35.9 g/dL (32.0-36.0); Mean Corpuscular Hemoglobin 35.3 pg (27.0-33.0); Mean Corpuscular Volume 98.5 fL (80-95); Monocytes % 3.5; Neutrophils % 66.7; Platelet Count 179 x1000/uL (130-400); RBC 3.31 m/cumm (4.00-5.20); White Blood Cell Count 4.24 k/cumm (4.4-10.8)
[2019-11-15] MEDS: Heparin 500 UNITS/5 ML SYRINGE IV (11:10)
[2019-11-15] MEDS: Normal Saline Flush 10 ML SYR IVP (11:10)
[2019-11-15 11:11] LABS: Absolute Basophil Count 0.01 k/cumm (0.0-0.2); Absolute Eosinophil Count 0.03 k/cumm (0.0-0.7); Absolute Lymphocyte Count 1.07 k/cumm (1.2-3.4); Absolute Neutrophil Count 1.19 k/cumm (1.2-6.7); Basophils % 0.3; Lymphocytes % 36.9; Mean Corp. HGB Concentration 35.3 g/dL (32.0-36.0); Mean Corpuscular Hemoglobin 35.6 pg (27.0-33.0); Mean Corpuscular Volume 100.9 fL (80-95); Mean Platelet Volume 8.5 fL (8.0-11.0); Monocytes % 20.7; Neutrophils % 41.1; Platelet Count 234 x1000/uL (130-400); RBC 3.37 m/cumm (4.00-5.20); RBC Distribution Width 15.1 % (11.7-14.6)
[2019-11-18] MEDS: Heparin 500 UNITS/5 ML SYRINGE IV (11:00)
[2019-11-18] MEDS: Normal Saline Flush 10 ML SYR IVP (11:00)
[2019-11-18 11:20] LABS: Abs Immature Grans 0.01 10^3/uL (0.0-0.06); Absolute Basophil Count 0.02 10^3/uL (0.0-0.2); Absolute Eosinophil Count 0.02 10^3/uL (0.0-0.7); Absolute Lymphocyte Count 1.18 10^3/uL (1.2-3.4); Absolute Monocyte Count 0.57 10^3/uL (0.1-0.8); Absolute Neutrophil Count 1.92 10^3/uL (1.2-6.7); Basophils % 0.5; Eosinophils % 0.5; HGB 11.9 g/dL (11.2-15.7); Immature Grans % 0.3; Lymphocytes % 31.7; MCH 35.6 pg (27.0-33.0); MCV 101.8 fL (80-95); MPV 8.7 fL (8.0-11.0); Monocytes % 15.3; Neutrophils % 51.7; Platelet Count 224 10^3/uL (130-400); RBC 3.34 10^6/uL (3.93-5.22); RDW 15.3 % (11.7-14.6); RDW-SD 56.4 fL; WBC 3.72 10^3/uL (4.4-10.8)
[2019-11-18 11:35] LABS: ALT 28 U/L (14-59); AST 18 U/L (15-37); Albumin 3.9 g/dL (3.4-5.0); Alkaline Phosphatase 75 U/L (46-116); Anion Gap 9.4 mmol/L (3-11); BUN 10 mg/dL (7-18); Bilirubin, Total 0.8 mg/dL (0.2-1.0); CO2 27.6 mmol/L (21.0-32.0); CREATININE 0.61 mg/dL (0.55-1.02); Calcium 9.4 mg/dL (8.5-10.1); Chloride 98 mmol/L (98-107); Glucose 108 mg/dL (74-106); Potassium 3.4 mmol/L (3.5-5.1); Sodium 135 mmol/L (136-145); Total Protein 7.5 g/dL (6.4-8.2)
[2019-11-19 10:42] LABS: CA 125 9 U/mL (<30)
== END 2019-11-19 23:59 | disposition home or self-care (01) ==
LOC: INF 01:56
PROVIDERS: PCP Nurse Practitioner; Visit Provider Obstetrics & Gynecology Gynecologic Oncology
DX: C56.1 Malignant neoplasm of right ovary (principal); Z45.2 Encounter for adjustment and management of vascular access device
CPT/HCPCS: 36591; 80053; 86304; 85025

== ENCOUNTER 2019-12-20 02:42 | Outpatient (RCR) | payer OTHER, SELFPAY ==
[2019-11-29] MEDS: Heparin 500 UNITS/5 ML SYRINGE IV (10:58)
[2019-11-29] MEDS: Normal Saline Flush 10 ML SYR IVP (10:58)
[2019-11-29 11:07] LABS: Abs Immature Grans 0.04 10^3/uL (0.0-0.06); Absolute Basophil Count 0.02 10^3/uL (0.0-0.2); Absolute Eosinophil Count 0.07 10^3/uL (0.0-0.7); Absolute Lymphocyte Count 1.13 10^3/uL (1.2-3.4); Absolute Monocyte Count 0.17 10^3/uL (0.1-0.8); Basophils % 0.4; Eosinophils % 1.3; HCT 31.5 % (36.0-46.0); HGB 11.3 g/dL (11.2-15.7); Immature Grans % 0.8; Lymphocytes % 21.2; MCH 36.2 pg (27.0-33.0); MCHC 35.9 % (32.0-36.0); MPV 9.2 fL (8.0-11.0); Monocytes % 3.2; Neutrophils % 73.1; Nucleated RBC 0 %; Platelet Count 128 10^3/uL (130-400); RBC 3.12 10^6/uL (3.93-5.22); RDW 12.9 % (11.7-14.6); RDW-SD 47.8 fL; WBC 5.33 10^3/uL (4.4-10.8)
[2019-12-06] MEDS: Heparin 500 UNITS/5 ML SYRINGE IV (11:05)
[2019-12-06] MEDS: Normal Saline Flush 10 ML SYR IVP (11:05)
[2019-12-06 11:13] LABS: Absolute Basophil Count 0.02 10^3/uL (0.0-0.2); Absolute Eosinophil Count 0.03 10^3/uL (0.0-0.7); Absolute Lymphocyte Count 1.15 10^3/uL (1.2-3.4); Absolute Monocyte Count 0.57 10^3/uL (0.1-0.8); Absolute Neutrophil Count 1.21 10^3/uL (1.2-6.7); Basophils % 0.7; HCT 32.4 % (36.0-46.0); HGB 11.3 g/dL (11.2-15.7); Lymphocytes % 38.6; MCH 36.3 pg (27.0-33.0); MCHC 34.9 % (32.0-36.0); MCV 104.2 fL (80-95); MPV 9.2 fL (8.0-11.0); Monocytes % 19.1; Neutrophils % 40.6; Nucleated RBC 0 %; Platelet Count 158 10^3/uL (130-400); RBC 3.11 10^6/uL (3.93-5.22); RDW 14.1 % (11.7-14.6); RDW-SD 51.8 fL; WBC 2.98 10^3/uL (4.4-10.8)
[2019-12-09] MEDS: Heparin 500 UNITS/5 ML SYRINGE IV (10:55)
[2019-12-09] MEDS: Normal Saline Flush 10 ML SYR IVP (10:55)
[2019-12-09 11:11] LABS: Abs Immature Grans 0.01 10^3/uL (0.0-0.06); Absolute Basophil Count 0.01 10^3/uL (0.0-0.2); Absolute Eosinophil Count 0.02 10^3/uL (0.0-0.7); Absolute Neutrophil Count 2.36 10^3/uL (1.2-6.7); Basophils % 0.2; Eosinophils % 0.5; HCT 33.6 % (36.0-46.0); Immature Grans % 0.2; Lymphocytes % 30.2; MCH 37.5 pg (27.0-33.0); MCHC 35.7 % (32.0-36.0); MPV 8.9 fL (8.0-11.0); Neutrophils % 54.9; Nucleated RBC 0 %; Platelet Count 165 10^3/uL (130-400); RDW 14.6 % (11.7-14.6); RDW-SD 56.2 fL
[2019-12-09 11:24] LABS: ALT 30 U/L (14-59); AST 20 U/L (15-37); Alkaline Phosphatase 76 U/L (46-116); Anion Gap 11.1 mmol/L (3-11); BUN 12 mg/dL (7-18); Bilirubin, Total 0.8 mg/dL (0.2-1.0); CO2 27.9 mmol/L (21.0-32.0); CREATININE 0.59 mg/dL (0.55-1.02); Calcium 9.5 mg/dL (8.5-10.1); Chloride 99 mmol/L (98-107); Glucose 101 mg/dL (74-106); Potassium 3.5 mmol/L (3.5-5.1); Sodium 138 mmol/L (136-145); Total Protein 7.9 g/dL (6.4-8.2)
[2019-12-10 09:28] LABS: CA 125 8 U/mL (<30)
[2019-12-20] MEDS: Normal Saline Flush 10 ML SYR IVP (11:05)
[2019-12-20] MEDS: Heparin 500 UNITS/5 ML SYRINGE IV (11:05)
[2019-12-20 11:13] LABS: Abs Immature Grans 0.05 10^3/uL (0.0-0.06); Absolute Basophil Count 0.02 10^3/uL (0.0-0.2); Absolute Eosinophil Count 0.05 10^3/uL (0.0-0.7); Absolute Lymphocyte Count 1.34 10^3/uL (1.2-3.4); Absolute Monocyte Count 0.23 10^3/uL (0.1-0.8); Absolute Neutrophil Count 3.34 10^3/uL (1.2-6.7); Basophils % 0.4; HGB 11.2 g/dL (11.2-15.7); Lymphocytes % 26.6; MCH 36.4 pg (27.0-33.0); MCHC 36.1 % (32.0-36.0); MCV 100.6 fL (80-95); MPV 9.3 fL (8.0-11.0); Monocytes % 4.6; Neutrophils % 66.4; Nucleated RBC 0 %; Platelet Count 135 10^3/uL (130-400); RBC 3.08 10^6/uL (3.93-5.22); RDW-SD 47.7 fL; WBC 5.03 10^3/uL (4.4-10.8)
== END 2019-12-20 23:59 | disposition home or self-care (01) ==
LOC: INF 02:42
PROVIDERS: PCP Nurse Practitioner; Visit Provider Obstetrics & Gynecology Gynecologic Oncology
DX: C56.9 Malignant neoplasm of unspecified ovary (principal); Z45.2 Encounter for adjustment and management of vascular access device
CPT/HCPCS: 36591; 80053; 86304; 85025

== ENCOUNTER 2019-12-28 03:58 | Outpatient (RCR) | payer OTHER, SELFPAY ==
[2019-12-28] MEDS: Normal Saline Flush 10 ML SYR IVP (10:54)
[2019-12-28] MEDS: Heparin 500 UNITS/5 ML SYRINGE IV (10:54)
[2019-12-28 10:58] LABS: Absolute Basophil Count 0.01 10^3/uL (0.0-0.2); Absolute Eosinophil Count 0.03 10^3/uL (0.0-0.7); Absolute Lymphocyte Count 1.22 10^3/uL (1.2-3.4); Absolute Monocyte Count 0.55 10^3/uL (0.1-0.8); Absolute Neutrophil Count 0.79 10^3/uL (1.2-6.7); Basophils % 0.4; Eosinophils % 1.2; HCT 30.1 % (36.0-46.0); HGB 10.5 g/dL (11.2-15.7); Lymphocytes % 46.9; MCH 36.7 pg (27.0-33.0); MCHC 34.9 % (32.0-36.0); MCV 105.2 fL (80-95); MPV 9.2 fL (8.0-11.0); Monocytes % 21.2; Neutrophils % 30.3; Nucleated RBC 0 %; Platelet Count 124 10^3/uL (130-400); RBC 2.86 10^6/uL (3.93-5.22); RDW 14.9 % (11.7-14.6); RDW-SD 54.1 fL
[2019-12-28 11:11] LABS: ALT 25 U/L (14-59); AST 19 U/L (15-37); Albumin 3.8 g/dL (3.4-5.0); Alkaline Phosphatase 75 U/L (46-116); Anion Gap 7.3 mmol/L (3-11); BUN 15 mg/dL (7-18); Bilirubin, Total 0.8 mg/dL (0.2-1.0); CO2 28.7 mmol/L (21.0-32.0); CREATININE 0.68 mg/dL (0.55-1.02); Chloride 99 mmol/L (98-107); Glucose 105 mg/dL (74-106); Potassium 3.2 mmol/L (3.5-5.1); Sodium 135 mmol/L (136-145); Total Protein 7.4 g/dL (6.4-8.2)
[2019-12-28 11:14] LABS: Diff Comment Agrees w/ Instrument
[2019-12-28 11:15] LABS: Macrocytosis 2+; Polychromasia Present
[2019-12-29 10:58] LABS: CA 125 9 U/mL (<30)
== END 2020-01-19 23:59 | disposition home or self-care (01) ==
LOC: INF 03:58
PROVIDERS: PCP Nurse Practitioner; Visit Provider Obstetrics & Gynecology Gynecologic Oncology
DX: C56.1 Malignant neoplasm of right ovary (principal); Z45.2 Encounter for adjustment and management of vascular access device
CPT/HCPCS: 36591; 80053; 86304; 96523; 85025

== ENCOUNTER 2020-01-27 09:47 | Emergency (ER) | payer OTHER, SELFPAY ==
[2020-01-27] VITALS (37 sets, daily range): BP systolic 123–167; BP diastolic 80–119; PULSE 82–114; RESP 9–18; TEMP 36.3–37; O2SAT 98–100
--- NOTE | 2020-01-27 09:45 | RT.EKG_ITS ---
APPROVED REPORT Exam: Resting ECG Patient Location: E HR:109 bpm ECG Measurements Heart Rate 109 AXIS SD 163 P 0 QRSd 92 QRS 33 QT 332 T 54 QTc 447 Conclusion Sinus tachycardia...rate 109 Anterolateral...ST dep, I aVL V2-V6
--- NOTE | 2020-01-27 10:00 | ED.GENADUL_ITS ---
Discharge Plan Disposition Patient Disposition: HOME Condition: Stable Discharge Details Clinical Impression: Heart palpitations Primary Care Provider: Evelyne Hunt ED Provider: Rosamaria Whitlock Home Meds and New Rx's Prescriptions: Continued cannabidiol 100 mg/mL solution 25 mg PO ONCE RF: 0 atorvastatin 10 mg tablet 10 mg PO DAILY Qty: 90 RF: 3 hydrochlorothiazide 25 mg tablet 25 mg PO DAILY Qty: 90 RF: 3 cholecalciferol (vitamin D3) 2,000 unit tablet,chewable 2,000 unit PO DAILY RF: 0 diltiazem HCl 180 mg capsule,extended release 24hr 180 mg PO DAILY Qty: 90 RF: 3 acetaminophen [Tylenol] 325 mg tablet 650 mg PO Q6H PRN (Reason: pain) Qty: 300 RF: 6 ibuprofen 600 mg tablet 600 mg PO Q6H PRN (Reason: pain) Qty: 120 RF: 6 prochlorperazine maleate [Compazine] 10 mg tablet 10 mg PO Q6H PRNRF: 0 ondansetron HCl [Zofran] 8 mg tablet 8 mg PO Q8H PRN (Reason: nausea ) RF: 0 bupropion HCl [Wellbutrin XL] 300 mg tablet extended release 24 hr 300 mg PO QAM Qty: 90 RF: 3 zinc 50 mg tablet 50 mg PO DAILY RF: 0 ascorbic acid (vitamin C) 1,000 mg tablet 1 gm PO DAILY RF: 0 pyridoxine (vitamin B6) 100 mg tablet 100 mg PO DAILY RF: 0 glutamine 15 gram powder in packet 15 gm PO DAILY RF: 0 alpha lipoic acid 600 mg capsule 600 mg PO DAILY RF: 0 diltiazem HCl 30 mg tablet 30 mg PO .COMPLEX PRNRF: 0 Zejula 100 mg capsule 200 mg PO HS RF: 0 Discharge Instructions Instructions: Heart Palpitations (ED) Additional Instructions: Follow up with primary care provider in 3-5 days. Return to ED sooner if any worsening or concerns. Increase oral fluids. Please follow-up with cardiology regarding Holter monitor reading. Follow respiratory therapies instructions regarding monitor. Return to the ED for any chest pain, worsening shortness of breath, worsening palpitations or any concerns. I spoke with Dr. Vallejo who recommended that you continue taking the Zejula medication as previously prescribed. She is aware of the Holter monitor being placed and is in agreement with plan of care. Referrals: Evelyne Hunt NP [Primary Care Provider] - Medical Decision Making 59-year-old female presents to the ED chief complaint of palpitations and heart racing which began yesterday while riding in a car. She is currently undergoing treatment for metastatic ovarian cancer. She began a new medication called Zejula or niraparib shortly before the palpitations began. She also endorses shortness of breath with exertion. She denies any fever, chest pain, abdominal pain, nausea vomiting diarrhea or any other associated symptoms. She does have a past medical history of aortic stenosis, depression, hyper cholesterolemia, hypertension past surgical history includes appendectomy, , total abdominal hysterectomy and bilateral salpingo-oophorectomy. She does have a Port-A-Cath in place. Upon initial exam she is tachycardic at a rate of 114, sinus tachycardia. Cardiac work-up ordered including chest CT to rule out PE. EKG was reviewed by Manfred Jackson MD ER attending, please see his official reading. Does have sinus tachycardia with some slightly depressed ST segments in the anterior lateral leads. Old EKG available for review. EXAM: CT CHEST PE CTA CLINICAL HISTORY: SOB, Tachycardia, hx of CA. TECHNIQUE: Imaging Protocol: Axial CT angiography was performed with multi- slice acquisition and multi-planar and/or 3D reconstructions. CONTRAST MATERIAL: Intravenous: Omnipaque 350 Contrast volume:structured data in ml COMPARISON: CT CT ABDOMEN PELVIS W from 07/08/2019 FINDINGS: CT angiography of the chest was performed with intravenous infusion of 60 cc of Omnipaque 350. The lungs are clear with an incidental small calcified left upper lobe pulmonary nodule.. No pleural effusion. Tracheobronchial tree appears intact. No evidence of pulmonary embolic disease. Thoracic aorta is of normal diameter, no thoracic aortic aneurysm or dissection, major branch vessels appear intact. No mediastinal or hilar adenopathy. Images obtained through the upper abdomen show unremarkable appearance of the visualized portions of the liver, except for an apparent right hepatic cyst. There is unremarkable appearance of the visualized portions of the, spleen, pancreas, adrenals, and kidneys. IMPRESSION: Negative CT angiogram of the chest. No evidence of pulmonary embolic disease. 1149[place] [facility] [place]. Patients DrBogdan Ramirez 1316: Spoke with Dr. Soria with [facility] oncology discussed patient case in details with him. He reports that this is a diagnostic patient and not under his service but he does recommend a possible Holter monitor to go home with patient. 1317: Spoke with Dr White regarding patient she agrees to Holter monitor and cardiology follow up. Spoke with patient regarding home care, verbalized understanding. Medical Records Medical records reviewed: Yes I reviewed the patient's medical records. Medical records narrative: Medical records reviewed from [facility] from September 14, 2019 from [facility] with cardiology, echocardiogram reviewed from May 05, 2019 which showed mild tricuspid regurgitation, normal left ventricular pole segmental wall motion and ejection fraction estimated to be 60 to 65% which is within normal limits, telehealth visit record reviewed from January 03, 2020 [place] [facility] [place] started taking niraparib 200 mg p.o. twice daily on the sixth, HPI General Mode of arrival: ambulatory . Date/Time Provider Initiated Documentation: 01/27/20 09:48 . Limitations to Documentation: no limitations . Information obtained by: patient and old records reviewed . HPI Narrative: 59-year-old female presents to the ED chief complaint of palpitations and heart racing which began yesterday while riding in a car. She is currently undergoing treatment for metastatic ovarian cancer. She began a new medication called Zejula or niraparib shortly before the palpitations began. She also endorses shortness of breath with exertion. She denies any fever, chest pain, abdominal pain, nausea vomiting diarrhea or any other associated symptoms. She does have a past medical history of aortic stenosis, depression, hyper cholesterolemia, hypertension past surgical history includes appendectomy, , total abdominal hysterectomy and bilateral salpingo-oophorectomy. She does have a Port-A-Cath in place. Upon initial exam she is tachycardic at a rate of 114, sinus tachycardia. Related Data Home Medications Medication Instructions Recorded Confirmed diltiazem HCl 180 mg 180 mg PO DAILY #90 tab-cap 02/19/19 01/27/20 capsule,extended release 24 hr atorvastatin 10 mg tablet 10 mg PO DAILY #90 tab 03/29/19 01/27/20 hydrochlorothiazide 25 mg tablet 25 mg PO DAILY #90 tab 03/29/19 01/27/20 cannabidiol 100 mg/mL oral solution 25 mg PO ONCE ml 06/01/19 01/27/20 cholecalciferol (vitamin D3) 50 2,000 unit PO DAILY 06/01/19 10/25/19 mcg (2,000 unit) chewable tablet acetaminophen 325 mg tablet 650 mg PO Q6H PRN #300 tab 08/11/19 01/27/20 ibuprofen 600 mg tablet 600 mg PO Q6H PRN #120 tab 08/11/19 01/27/20 ondansetron HCl 8 mg tablet 8 mg PO Q8H PRN 08/19/19 01/27/20 prochlorperazine maleate 10 mg 10 mg PO Q6H PRN 08/19/19 01/27/20 tablet bupropion HCl 300 mg 24 hr tablet, 300 mg PO QAM #90 tab 09/17/19 01/27/20 extended release alpha lipoic acid 600 mg capsule 600 mg PO DAILY 09/21/19 10/25/19 ascorbic acid (vitamin C) 1,000 mg 1 gm PO DAILY tab 09/21/19 10/25/19 tablet diltiazem HCl 30 mg tablet 30 mg PO .COMPLEX PRN 09/21/19 01/27/20 glutamine 15 gram oral powder 15 gm PO DAILY 09/21/19 10/25/19 packet pyridoxine (vitamin B6) 100 mg 100 mg PO DAILY tab 09/21/19 01/27/20 tablet zinc 50 mg tablet 50 mg PO DAILY 09/21/19 10/25/19 Zejula 200 mg PO HS 01/27/20 01/27/20 Previous Rx's Medication Instructions Recorded diltiazem HCl 180 mg 180 mg PO DAILY #90 tab-cap 02/19/19 capsule,extended release 24 hr atorvastatin 10 mg tablet 10 mg PO DAILY #90 tab 03/29/19 hydrochlorothiazide 25 mg tablet 25 mg PO DAILY #90 tab 03/29/19 acetaminophen 325 mg tablet 650 mg PO Q6H PRN #300 tab 08/11/19 ibuprofen 600 mg tablet 600 mg PO Q6H PRN #120 tab 08/11/19 bupropion HCl 300 mg 24 hr tablet, 300 mg PO QAM #90 tab 09/17/19 extended release Allergies Allergy/AdvReac Type Severity Reaction Status Date / Time penicillin V Allergy Severe Verified 01/27/20 09:58 paroxetine Allergy Intermediate Verified 01/27/20 09:58 paclitaxel [From Taxol] AdvReac Intermediate Other (See Verified 01/27/20 09:58 Comment) sertraline AdvReac Intermediate Verified 01/27/20 09:58 venlafaxine AdvReac Intermediate Verified 01/27/20 09:58 General Stated Complaint: Palpitatns KADY: 2 Review of Systems Narrative: Constitutional: Negative for weight loss, alert and oriented, well groomed, normal body habitus, appears comfortable. HEENT: Denies trauma, headaches, blurry vision, nasal discharge, sore throat, trouble swallowing. Chest: Denies chest pain, irregular rhythm, hypertension. Positive palpitations Respiratory: Denies cough, hemoptysis. Positive shortness of breath. GI: Denies abdominal pain, nausea, vomiting, diarrhea, constipation. : Denies dysuria, hematuria, flank pain, rectal bleeding. Neuro: Denies dizziness, blurry vision, weakness, syncope, headache or facial numbness. Hematologic: Denies easy bruising, intolerance to heat or cold. FORMERLY [facility], [facility]–1983 Medical History Aortic stenosis, severe [place] [facility] [place] Atrophic vaginitis (11/28/16) 10/2017 RX vaginal estrogen 10 mcg tablet 2x/week 02/2018 Rx for Estring. Depression (08/08/15) Long-term use of Wellbutrin, stopped and takes CBD oil. Has increased vitamin D supplements. Dyspareunia (12/02/14) Elevated cholesterol Hypertension Lichen sclerosus et atrophicus of the vulva Involving the periclitoral region and labia minora treated with clobetasol 0.05% with good results. 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 Tumor grade IIIB. 08/18/19 [place] [facility] [place] Teaching Pelvic pain Onset 05/2019 left sided. Surgical History Appendectomy (08/26/13) Dr. Rabago section x2 S/P total abdominal hysterectomy and bilateral salpingo-oophorectomy (07/20/19) bilateral pelvic and paraaortic lymphadenectomy, infracolic omentectomy, rectosigmoid resection and reanastomosis Family History Mother Personal history of malignant neoplasm cervical Father No problems noted. 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 Appears stated age. Normal body habitus. Head: Normocephalic, no trauma. Eyes: Pupils PERRLA, Red reflex noted, EOM's intact. Eyelids symmetrical without lesions, discharge, or swelling. ENT: Bilateral TM's WNL, External ear normal to inspection, no mastoid TTP, swelling, or erythema, Nasal turbinates WNL, no nasal discharge. Normal dentition, Posterior pharynx WNL, no exudate. Chest: Sinus tachycardia, normal S1, S2, distal pulses intact. Resp: Lungs clear to auscultation bilaterally, no wheezes, rales, or rhonchi. Musculoskeletal: Normal gait, 5/5 strength to all four extremities. Skin: No suspicious rashes or lesions. Capillary refill less than 2 sec. Neurologic: Cranial nerves II-XII intact. Alert and oriented x 3. DTR's intact. Hematologic/Lymphatic: No ecchymosis, no lymphadenopathy. Course Vital Signs Vital signs: Vital Signs Temperature 36.3 C L 01/27/20 09:50 Pulse 114 H 01/27/20 09:50 Respiratory Rate 16 01/27/20 09:50 Blood Pressure 167/109 H 01/27/20 09:50 Pulse Oximetry 100 10/08/20 09:50 Temperature 36.3 C L 01/27/20 09:50 Temperature Source Temporal Artery Scan 01/27/20 09:50 Pulse 114 H 01/27/20 09:50 Respiratory Rate 16 01/27/20 09:50 Respiratory Effort Non-Labored 01/27/20 09:56 Blood Pressure 167/109 H 01/27/20 09:50 Blood Pressure Position Supine 01/27/20 09:50 Pulse Oximetry 100 01/27/20 09:50 Oxygen Delivery Method Room Air 01/27/20 09:50 Oxygen Flow Rate 0 01/27/20 09:50 Pain Level 0 01/27/20 09:50
[2020-01-27] MEDS: Normal Saline Flush 10 ML SYR IVP (10:13)
[2020-01-27] MEDS: Normal Saline 1,000 ML 1000 ML IV (10:13)
[2020-01-27 10:16] LABS: Abs Immature Grans 0.03 10^3/uL (0.0-0.06); Absolute Basophil Count 0.04 10^3/uL (0.0-0.2); Absolute Eosinophil Count 0.23 10^3/uL (0.0-0.7); Absolute Lymphocyte Count 1.11 10^3/uL (1.2-3.4); Absolute Monocyte Count 0.69 10^3/uL (0.1-0.8); Absolute Neutrophil Count 6.31 10^3/uL (1.2-6.7); Basophils % 0.5; Eosinophils % 2.7; HCT 38.4 % (36.0-46.0); HGB 13.1 g/dL (11.2-15.7); Immature Grans % 0.4; Lymphocytes % 13.2; MCH 36.1 pg (27.0-33.0); MCHC 34.1 % (32.0-36.0); MCV 105.8 fL (80-95); MPV 8.7 fL (8.0-11.0); Monocytes % 8.2; Nucleated RBC 0 %; Platelet Count 240 10^3/uL (130-400); RBC 3.63 10^6/uL (3.93-5.22); RDW 13.1 % (11.7-14.6); RDW-SD 51.2 fL; WBC 8.41 10^3/uL (4.4-10.8)
[2020-01-27 10:37] LABS: Bilirubin Negative (Negative); Blood Negative (Negative); Clarity Clear (Clear); Glucose Negative (Negative); Ketones Negative (Negative); Leukocyte Esterase Negative (Negative); Nitrite Negative (Negative); Specific Gravity 1.015 (1.005-1.025); Urobilinogen 0.2 EU/dL (Up TO 0.2)
[2020-01-27 10:46] LABS: ALT 21 U/L (14-59); AST 19 U/L (15-37); Albumin 3.9 g/dL (3.4-5.0); Alkaline Phosphatase 72 U/L (46-116); Anion Gap 9.2 mmol/L (3-11); BUN 14 mg/dL (7-18); Bilirubin, Total 0.8 mg/dL (0.2-1.0); CO2 27.8 mmol/L (21.0-32.0); CREATININE 0.72 mg/dL (0.55-1.02); Calcium 9.6 mg/dL (8.5-10.1); Chloride 99 mmol/L (98-107); Glucose 96 mg/dL (74-106); Macrocytosis 1+; Magnesium 1.5 mg/dL (1.8-2.4); Polychromasia Present; Potassium 3.7 mmol/L (3.5-5.1); Sodium 136 mmol/L (136-145); TSH 4.16 uIU/mL (0.36-3.74); Total Protein 7.6 g/dL (6.4-8.2)
[2020-01-27 10:47] LABS: Troponin I < 0.05 ng/mL (<0.06)
[2020-01-27] MEDS: Normal Saline - Diluent 50 ML VIAL IV ×2 (10:56→11:00)
[2020-01-27] MEDS: Omnipaque 350 MG/ML 100 ML BTL IJ ×2 (10:59→11:04)
--- NOTE | 2020-01-27 11:09 | DI.CT_ITS ---
EXAM: CT CHEST PE CTA CLINICAL HISTORY: SOB, Tachycardia, hx of CA. TECHNIQUE: Imaging Protocol: Axial CT angiography was performed with multi-slice acquisition and mu lti-planar and/or 3D reconstructions. CONTRAST MATERIAL: Intravenous: Omnipaque 350 Contrast volume:structured data in ml COMPARISON: CT CT ABDOMEN PELVIS W from 07/08/2019 FINDINGS: CT angiography of the chest was performed with intravenous infusion of 60 cc of Omnipaque 350. The lungs are clear with an incidental small calcified left upper lobe pulmonary nodule.. No pleural effusion. Tracheobronchial tree appears intact. No evidence of pulmonary embolic disease. Thoracic aorta is of normal diameter, no thoracic aortic an eurysm or dissection, major branch vessels appear intact. No mediastinal or hilar adenopathy. Images obtained through the upper abdomen show unremarkable appearance of the visualized portions of the liver, except for an apparent right hepatic cyst. There is unremarkable appearance of the visual ized portions of the, spleen, pancreas, adrenals, and kidneys. IMPRESSION: Negative CT angiogram of the chest. No evidence of pulmonary embolic disease. RADIATION DOSE DELIVERED: 259.37mGy.cm Total DLP 259.37mGy.cm Total DLP DATA REPOSITORY: All CT scans at this facility are submitted to the National Radiology Data Registry (NRDR) Dose Index Registry (DIR) with the [employer] ([employer]). RADIATION OPTIMIZATION: All CT scans at this facility use at least one of these dose optimization te chniques: automated exposure control; mA and/or kV adjustment per patient size (includes targeted exa ms where dose is matched to clinical indication); or iterative reconstruction.
[2020-01-27 11:44] LABS: FREE T4 0.95 ng/dL (0.76-1.46)
[2020-01-27] MEDS: MAGNESIUM SULFATE 1 GM/100 ML BAG IVPB (11:45)
[2020-01-27 13:23] LABS: Troponin I < 0.05 ng/mL (<0.06)
[2020-01-27] MEDS: Heparin 500 UNITS/5 ML SYRINGE (13:30)
[2020-01-27 17:44] LABS: T3,Free 3.5 pg/mL (2.8-5.3)
== END 2020-01-27 13:50 | disposition home or self-care (01) ==
PROVIDERS: Emergency Provider Registered Nurse Emergency; PCP Nurse Practitioner
DX: R00.2 Palpitations (principal); R06.02 Shortness of breath; T45.1X5A Adverse effect of antineoplastic and immunosuppressive drugs, initial encounter; C56.1 Malignant neoplasm of right ovary; C56.2 Malignant neoplasm of left ovary; Z95.828 Presence of other vascular implants and grafts; I10 Essential (primary) hypertension
CPT/HCPCS: 36591; 71275; 80053; 93005; 96361; 96365; 99285; 81003; 83735; 84439; 84443; 84481; 84484; 85025; 93010; 93225; J3475; J3490

== ENCOUNTER 2020-01-31 09:31 | Outpatient (CLI) | payer OTHER, SELFPAY ==
--- NOTE | 2020-01-31 11:48 | W.HOLTRPT ---
Date of service: 01/31/20 Time of Service: 11:48 Holter Monitor Report Referring Provider:: Tati Indications:: Tachycardia Holter Monitor Note: This is a 48-hour Holter monitor ordered for indication of tachycardia. ?Patient was in normal sinus rhythm for majority of the recording with an average heart rate of 83 bpm. ?There were 15 episodes of supraventricular tachycardia with the longest lasting 54 beats. ?There were rare PACs and rare PVCs. There are no episodes of ventricular tachycardia. ?There were no episodes of atrial fibrillation, no pauses or in 3 seconds no evidence of high degree heart block.
== END 2020-01-31 09:51 ==
PROVIDERS: PCP Nurse Practitioner; Visit Provider Registered Nurse Emergency
DX: R00.0 Tachycardia, unspecified (principal); I47.1 Supraventricular tachycardia
CPT/HCPCS: 93226

== ENCOUNTER 2020-02-18 11:00 | Outpatient (RCR) | payer OTHER, SELFPAY ==
[2020-01-24] MEDS: Heparin 500 UNITS/5 ML SYRINGE (11:15)
[2020-01-24] MEDS: Normal Saline Flush 10 ML SYR IVP (11:17)
[2020-01-24 11:27] LABS: Abs Immature Grans 0.02 10^3/uL (0.0-0.06); Absolute Basophil Count 0.05 10^3/uL (0.0-0.2); Absolute Eosinophil Count 0.08 10^3/uL (0.0-0.7); Absolute Lymphocyte Count 1.32 10^3/uL (1.2-3.4); Absolute Monocyte Count 0.52 10^3/uL (0.1-0.8); Absolute Neutrophil Count 4.16 10^3/uL (1.2-6.7); Basophils % 0.8; Eosinophils % 1.3; HCT 37.3 % (36.0-46.0); HGB 13.1 g/dL (11.2-15.7); Immature Grans % 0.3; Lymphocytes % 21.5; MCH 37.3 pg (27.0-33.0); MCHC 35.1 % (32.0-36.0); MCV 106.3 fL (80-95); Monocytes % 8.5; Neutrophils % 67.6; Nucleated RBC 0 %; RBC 3.51 10^6/uL (3.93-5.22); RDW 13.4 % (11.7-14.6); RDW-SD 52.6 fL; WBC 6.15 10^3/uL (4.4-10.8)
[2020-01-24 11:42] LABS: Diff Comment RBC Morph Reviewed; Macrocytosis 2+; Platelet Count 263 10^3/uL (130-400); Polychromasia Present
[2020-01-24 11:57] LABS: ALT 22 U/L (14-59); AST 18 U/L (15-37); Albumin 4.1 g/dL (3.4-5.0); Alkaline Phosphatase 70 U/L (46-116); Anion Gap 8.9 mmol/L (3-11); BUN 8 mg/dL (7-18); CO2 28.1 mmol/L (21.0-32.0); CREATININE 0.63 mg/dL (0.55-1.02); Calcium 9.9 mg/dL (8.5-10.1); Chloride 99 mmol/L (98-107); Glucose 92 mg/dL (74-106); Potassium 3.5 mmol/L (3.5-5.1); Sodium 136 mmol/L (136-145); Total Protein 7.8 g/dL (6.4-8.2)
[2020-01-29 12:19] LABS: TSH 4.29 uIU/mL (0.36-3.74)
[2020-01-31] MEDS: Heparin 500 UNITS/5 ML SYRINGE IV (11:39)
[2020-01-31] MEDS: Normal Saline Flush 10 ML SYR IVP (11:39)
[2020-01-31 11:44] LABS: Abs Immature Grans 0.02 10^3/uL (0.0-0.06); Absolute Basophil Count 0.04 10^3/uL (0.0-0.2); Absolute Eosinophil Count 0.15 10^3/uL (0.0-0.7); Absolute Lymphocyte Count 1.24 10^3/uL (1.2-3.4); Absolute Monocyte Count 0.56 10^3/uL (0.1-0.8); Absolute Neutrophil Count 4.88 10^3/uL (1.2-6.7); Basophils % 0.6; Eosinophils % 2.2; HCT 37.9 % (36.0-46.0); HGB 13.4 g/dL (11.2-15.7); Immature Grans % 0.3; MCH 36.7 pg (27.0-33.0); MCHC 35.4 % (32.0-36.0); MCV 103.8 fL (80-95); MPV 8.5 fL (8.0-11.0); Monocytes % 8.1; Neutrophils % 70.8; Nucleated RBC 0 %; Platelet Count 254 10^3/uL (130-400); RBC 3.65 10^6/uL (3.93-5.22); RDW 12.4 % (11.7-14.6); RDW-SD 47.4 fL; WBC 6.89 10^3/uL (4.4-10.8)
[2020-01-31 13:31] LABS: TSH (W/Ref FT4) 7.43 uIU/mL (0.36-3.74)
[2020-01-31 22:09] LABS: Thyroglobulin Antibody <15 U/mL (<=60); Thyroperoxidase Antibody 32 U/mL (<=60)
[2020-02-08 09:15] LABS: Abs Immature Grans 0.02 10^3/uL (0.0-0.06); Absolute Basophil Count 0.09 10^3/uL (0.0-0.2); Absolute Eosinophil Count 0.28 10^3/uL (0.0-0.7); Absolute Neutrophil Count 3.78 10^3/uL (1.2-6.7); Basophils % 1.5; Eosinophils % 4.8; HCT 32.2 % (36.0-46.0); HGB 11.5 g/dL (11.2-15.7); Immature Grans % 0.3; Lymphocytes % 22.1; MCHC 35.7 % (32.0-36.0); MCV 103.5 fL (80-95); Monocytes % 6.8; Neutrophils % 64.5; Nucleated RBC 0 %; Platelet Count 128 10^3/uL (130-400); RBC 3.11 10^6/uL (3.93-5.22); RDW 12.2 % (11.7-14.6); RDW-SD 45.9 fL; WBC 5.87 10^3/uL (4.4-10.8)
[2020-02-08] MEDS: Heparin 500 UNITS/5 ML SYRINGE IV (09:20)
[2020-02-08] MEDS: Normal Saline Flush 10 ML SYR IVP (09:20)
[2020-02-08 09:31] LABS: ALT 35 U/L (14-59); AST 27 U/L (15-37); Albumin 3.8 g/dL (3.4-5.0); Alkaline Phosphatase 82 U/L (46-116); Anion Gap 7.2 mmol/L (3-11); BUN 16 mg/dL (7-18); Bilirubin, Total 1.1 mg/dL (0.2-1.0); CO2 28.8 mmol/L (21.0-32.0); Calcium 9.3 mg/dL (8.5-10.1); Chloride 97 mmol/L (98-107); Glucose 106 mg/dL (74-106); Potassium 3.5 mmol/L (3.5-5.1); Sodium 133 mmol/L (136-145); Total Protein 7.3 g/dL (6.4-8.2)
[2020-02-14] MEDS: Normal Saline Flush 10 ML SYR IVP (11:15)
[2020-02-14] MEDS: Heparin 500 UNITS/5 ML SYRINGE IV (11:15)
[2020-02-14 11:22] LABS: Abs Immature Grans 0.02 10^3/uL (0.0-0.06); Absolute Basophil Count 0.06 10^3/uL (0.0-0.2); Absolute Eosinophil Count 0.24 10^3/uL (0.0-0.7); Absolute Lymphocyte Count 1.82 10^3/uL (1.2-3.4); Absolute Neutrophil Count 3.94 10^3/uL (1.2-6.7); Basophils % 0.9; Eosinophils % 3.8; HGB 10.2 g/dL (11.2-15.7); Immature Grans % 0.3; Lymphocytes % 28.5; MCH 35.7 pg (27.0-33.0); MCHC 35.2 % (32.0-36.0); MCV 101.4 fL (80-95); MPV 11.4 fL (8.0-11.0); Monocytes % 4.7; Neutrophils % 61.8; Nucleated RBC 0 %; RBC 2.86 10^6/uL (3.93-5.22); WBC 6.38 10^3/uL (4.4-10.8)
[2020-02-14 11:37] LABS: ALT 35 U/L (14-59); AST 24 U/L (15-37); Albumin 3.9 g/dL (3.4-5.0); Alkaline Phosphatase 95 U/L (46-116); Anion Gap 5.4 mmol/L (3-11); BUN 22 mg/dL (7-18); CO2 28.6 mmol/L (21.0-32.0); CREATININE 0.83 mg/dL (0.55-1.02); Calcium 9.4 mg/dL (8.5-10.1); Chloride 99 mmol/L (98-107); Glucose 115 mg/dL (74-106); Potassium 3.5 mmol/L (3.5-5.1); Sodium 133 mmol/L (136-145); Total Protein 7.5 g/dL (6.4-8.2)
[2020-02-14 11:48] LABS: Diff Comment PLT Morph Reviewed; Platelet Count 18 10^3/uL (130-400)
[2020-02-14 11:49] LABS: Macrocytosis 1+
[2020-02-15 09:01] LABS: CA 125 7 U/mL (<30)
[2020-02-16] MEDS: Normal Saline Flush 10 ML SYR IVP (11:11)
[2020-02-16 11:18] LABS: Abs Immature Grans 0.01 10^3/uL (0.0-0.06); Absolute Basophil Count 0.06 10^3/uL (0.0-0.2); Absolute Eosinophil Count 0.23 10^3/uL (0.0-0.7); Absolute Monocyte Count 0.33 10^3/uL (0.1-0.8); Absolute Neutrophil Count 3.08 10^3/uL (1.2-6.7); HCT 27.2 % (36.0-46.0); HGB 9.8 g/dL (11.2-15.7); Immature Grans % 0.2; Lymphocytes % 36.1; MCH 36.4 pg (27.0-33.0); MCV 101.1 fL (80-95); MPV 11.7 fL (8.0-11.0); Monocytes % 5.7; Nucleated RBC 0 %; RBC 2.69 10^6/uL (3.93-5.22); RDW 12.1 % (11.7-14.6); RDW-SD 44.8 fL; WBC 5.81 10^3/uL (4.4-10.8)
[2020-02-16 11:33] LABS: Diff Comment Diff Reviewed; Macrocytosis 1+
[2020-02-16 11:40] LABS: Platelet Count 8 10^3/uL (130-400)
[2020-02-18] MEDS: Normal Saline Flush 10 ML SYR IVP (11:23)
[2020-02-18 11:44] LABS: Abs Immature Grans 0.01 10^3/uL (0.0-0.06); Absolute Basophil Count 0.05 10^3/uL (0.0-0.2); Absolute Eosinophil Count 0.16 10^3/uL (0.0-0.7); Absolute Lymphocyte Count 2.19 10^3/uL (1.2-3.4); Absolute Monocyte Count 0.27 10^3/uL (0.1-0.8); Absolute Neutrophil Count 2.12 10^3/uL (1.2-6.7); Eosinophils % 3.3; HCT 26.2 % (36.0-46.0); HGB 9.3 g/dL (11.2-15.7); Immature Grans % 0.2; Lymphocytes % 45.6; MCH 35.9 pg (27.0-33.0); MCHC 35.5 % (32.0-36.0); MCV 101.2 fL (80-95); MPV 10.7 fL (8.0-11.0); Monocytes % 5.6; Neutrophils % 44.3; Nucleated RBC 0 %; RBC 2.59 10^6/uL (3.93-5.22); RDW 11.9 % (11.7-14.6)
[2020-02-18 11:57] LABS: Diff Comment PLT Morph Reviewed; Platelet Count 50 10^3/uL (130-400); RBC Morphology Normal
== END 2020-02-19 23:59 | disposition home or self-care (01) ==
LOC: INF 11:00
PROVIDERS: Nurse Practitioner Adult Health; Student in an Organized Health Care Education/Training Program; PCP Nurse Practitioner; Visit Provider Obstetrics & Gynecology Gynecologic Oncology
DX: C56.9 Malignant neoplasm of unspecified ovary (principal); Z45.2 Encounter for adjustment and management of vascular access device; E07.81 Sick-euthyroid syndrome; R00.2 Palpitations; F41.9 Anxiety disorder, unspecified
CPT/HCPCS: 36591; 80053; 86304; 86376; 84439; 84443; 85025

== ENCOUNTER 2020-02-23 12:30 | Emergency (ER) | payer OTHER, SELFPAY ==
[2020-02-23] VITALS (42 sets, daily range): BP systolic 110–149; BP diastolic 67–113; PULSE 71–94; RESP 10–23; TEMP 36.6–36.9; O2SAT 98–100
--- NOTE | 2020-02-23 12:30 | RT.EKG_ITS ---
APPROVED REPORT Exam: Resting ECG Patient Location: E HR:77 bpm ECG Measurements Heart Rate 77 AXIS LA 133 P 74 QRSd 106 QRS 52 QT 403 T 55 QTc 457 Conclusion Sinus rhythm...normal P axis, V-rate 60- [address] depression, anterolateral leads...ST <-0.07mV, I aVL V2-V6. 1mm ST depression in II, III, aVF, V3-6, seen in previous EKG 01/27/20. No STEMI. I have reviewed and interpreted ECG and agree with software generated interpretation.
--- NOTE | 2020-02-23 12:37 | ED.GENADUL_ITS ---
Discharge Plan Disposition Patient Disposition: HOME Condition: Improving Discharge Details Clinical Impression: Acute on chronic anemia, Thrombocytopenia, History of ovarian cancer, Medication adverse effect Primary Care Provider: Evelyne Hunt ED Provider: Vanda Diaz Home Meds and New Rx's Prescriptions: Continued cannabidiol 100 mg/mL solution 25 mg PO ONCE RF: 0 atorvastatin 10 mg tablet 10 mg PO DAILY Qty: 90 RF: 3 cholecalciferol (vitamin D3) 2,000 unit tablet,chewable 2,000 unit PO DAILY RF: 0 diltiazem HCl 180 mg capsule,extended release 24hr 180 mg PO DAILY Qty: 90 RF: 3 acetaminophen [Tylenol] 325 mg tablet 650 mg PO Q6H PRN (Reason: pain) Qty: 300 RF: 6 ibuprofen 600 mg tablet 600 mg PO Q6H PRN (Reason: pain) Qty: 120 RF: 6 prochlorperazine maleate [Compazine] 10 mg tablet 10 mg PO Q6H PRNRF: 0 ondansetron HCl [Zofran] 8 mg tablet 8 mg PO Q8H PRN (Reason: nausea ) RF: 0 bupropion HCl [Wellbutrin XL] 300 mg tablet extended release 24 hr 300 mg PO QAM Qty: 90 RF: 3 zinc 50 mg tablet 50 mg PO DAILY RF: 0 ascorbic acid (vitamin C) 1,000 mg tablet 1 gm PO DAILY RF: 0 pyridoxine (vitamin B6) 100 mg tablet 100 mg PO DAILY RF: 0 glutamine 15 gram powder in packet 15 gm PO DAILY RF: 0 alpha lipoic acid 600 mg capsule 600 mg PO DAILY RF: 0 diltiazem HCl 30 mg tablet 30 mg PO .COMPLEX PRNRF: 0 metoprolol succinate 50 mg tablet extended release 24 hr 50 mg PO DAILY RF: 0 Zejula 100 mg capsule 200 mg PO HS RF: 0 Discharge Instructions Instructions: Anemia (ED) Additional Instructions: Call Dr. White's office tomorrow to schedule a follow-up appointment for reevaluation. Call the infusion center tomorrow to have a recheck of your hemoglobin and platelets on Friday. Return immediately to the emergency department if you develop any worsening or new concerning symptoms. 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 1400 -- labs and imaging reviewed. Hemoglobin down trended from 8-7.4 within the last couple hours. Platelets 21. Troponin negative. Magnesium 1.6. CT chest negative for PE. Patient reassessed and she appears in no acute distress. Will order a unit of PRBCs. Patient would prefer to go home which I feel like is a reasonable plan at this time. Will give transfusion and continue to monitor. Will reach out to her oncologist Dr. Vallejo. 1600 --Case discussed with [facility] heme-onc who agreed with plan for RBC transfusion. Agrees that her anemia and thrombocytopenia could likely be caused by the Zejula which was recently stopped, but also could be due to underlying bone marrow disease from cancer. Recommend that she have a repeat CBC in 2 days and follow-up with Dr. Vallejo this week. 1730 --patient finished 1 unit PRBC transfusion and feels great and is requesting to go home. Vitals within normal limits. She appears nontoxic and in no acute distress. Usual and customary return precautions given prior to discharge. Medical Records Medical records reviewed: Yes I reviewed the patient's medical records. Imaging Data Radiologic Study: Radiologist's impression: CT CHEST PE CTA CLINICAL HISTORY: sob, r/o acute PE. TECHNIQUE: Imaging Protocol: Axial CT angiography was performed with multi- slice acquisition and multi-planar and/or 3D reconstructions. CONTRAST MATERIAL: Intravenous: Omnipaque 350 Contrast volume:60 mL COMPARISON: CT CT CHEST PE CTA from 01/27/2020 FINDINGS: Pulmonary Arteries: No evidence of filling defect to suggest pulmonary emboli. Tracheobronchial tree: Patent where visualized. Mediastinum and Kae: No dominant adenopathy or fluid collection. Small hiatal hernia. Pulmonary parenchyma: No consolidation or dominant measurable mass. No architectural distortion. Mild dependent atelectasis. Pleura: No effusion or pneumothorax. Heart: The heart is not dilated. Mild coronary artery calcification. No pericardial effusion. Aorta: Thoracic aorta non-dilated. No evidence of dissection. Upper abdomen: Stable right hepatic cyst. Bones: Degenerative changes in the spine. Tubes, Catheters, and Lines: There is an indwelling central venous catheter in good position. Soft tissues: Unremarkable. IMPRESSION: No evidence of pulmonary embolism, thoracic aortic dissection or aneurysm. Lab Data Lab results reviewed: Yes I reviewed the patient's lab results. Labs: Laboratory Tests Range/Units 02/23/20 02/23/20 02/23/20 13:11 13:11 13:11 WBC (4.4-10.8) 10^3/uL 3.97 L RBC (3.93-5.22) 10^6/uL 2.10 L Hgb (11.2-15.7) g/dL 7.4 L Hct (36.0-46.0) % 21.0 L MCV (80-95) fL 100.0 H MCH (27.0-33.0) pg 35.2 H MCHC (32.0-36.0) % 35.2 RDW (11.7-14.6) % 11.8 Plt Count (130-400) 10^3/uL 21 L* MPV (8.0-11.0) fL 10.8 Immature Gran % 0.3 Neutrophils % 38.4 Lymphocytes % 48.4 Monocytes % 10.6 Eosinophils % 1.8 Basophils % 0.5 Nucleated RBC % % 0 Absolute Neutrophils (1.2-6.7) 10^3/uL 1.52 Absolute Lymphocytes (1.2-3.4) 10^3/uL 1.92 Absolute Monocytes (0.1-0.8) 10^3/uL 0.42 Absolute Eosinophils (0.0-0.7) 10^3/uL 0.07 Absolute Basophils (0.0-0.2) 10^3/uL 0.02 RBC Morphology Normal PT (9.3-11.0) sec 10.4 INR (0.9-1.1) 1.0 APTT (21.0-27.5) sec 20.8 L Sodium (136-145) mmol/L 138 Potassium (3.5-5.1) mmol/L 3.6 Chloride (98-107) mmol/L 102 Carbon Dioxide (21.0-32.0) mmol/L 25.9 Anion Gap (3-11) mmol/L 10.1 BUN (7-18) mg/dL 16 Creatinine (0.55-1.02) mg/dL 0.82 Estimated GFR/1.73 m2 (mL/min/1.73m2) >= 60.00 Glucose (74-106) mg/dL 116 H Calcium (8.5-10.1) mg/dL 9.2 Magnesium (1.8-2.4) mg/dL 1.6 L Total Bilirubin (0.2-1.0) mg/dL 0.8 AST (15-37) U/L 14 L ALT (14-59) U/L 22 Alkaline Phosphatase (46-116) U/L 78 Troponin I (<0.06) ng/mL < 0.05 Total Protein (6.4-8.2) g/dL 7.0 Albumin (3.4-5.0) g/dL 3.8 Patient ABO/Rh Antibody Screen Crossmatch Range/Units 02/23/20 14:00 WBC (4.4-10.8) 10^3/uL RBC (3.93-5.22) 10^6/uL Hgb (11.2-15.7) g/dL Hct (36.0-46.0) % MCV (80-95) fL MCH (27.0-33.0) pg MCHC (32.0-36.0) % RDW (11.7-14.6) % Plt Count (130-400) 10^3/uL MPV (8.0-11.0) fL Immature Gran % Neutrophils % Lymphocytes % Monocytes % Eosinophils % Basophils % Nucleated RBC % % Absolute Neutrophils (1.2-6.7) 10^3/uL Absolute Lymphocytes (1.2-3.4) 10^3/uL Absolute Monocytes (0.1-0.8) 10^3/uL Absolute Eosinophils (0.0-0.7) 10^3/uL Absolute Basophils (0.0-0.2) 10^3/uL RBC Morphology PT (9.3-11.0) sec INR (0.9-1.1) APTT (21.0-27.5) sec Sodium (136-145) mmol/L Potassium (3.5-5.1) mmol/L Chloride (98-107) mmol/L Carbon Dioxide (21.0-32.0) mmol/L Anion Gap (3-11) mmol/L BUN (7-18) mg/dL Creatinine (0.55-1.02) mg/dL Estimated GFR/1.73 m2 (mL/min/1.73m2) Glucose (74-106) mg/dL Calcium (8.5-10.1) mg/dL Magnesium (1.8-2.4) mg/dL Total Bilirubin (0.2-1.0) mg/dL AST (15-37) U/L ALT (14-59) U/L Alkaline Phosphatase (46-116) U/L Troponin I (<0.06) ng/mL Total Protein (6.4-8.2) g/dL Albumin (3.4-5.0) g/dL Patient ABO/Rh O Positive Antibody Screen Negative Crossmatch See Detail ECG Data Attestation: I personally reviewed and interpreted this ECG (s) as follows: Interpretation: Rate of 77, sinus, less than [address] depression in 2, 3, aVF, V3 through V6 which has been seen in previous EKG. No STEMI. NJ 133. QRS 106. QTc 457. HPI General Mode of arrival: ambulatory . Date/Time Provider Initiated Documentation: 02/23/20 12:31 . Limitations to Documentation: no limitations . Information obtained by: patient . HPI Narrative: Patient is a 59-year-old female with a history of ovarian cancer s/p TAHBSO, bilateral pelvic and paraaortic lymphadenectomy, infracolic omentectomy, rectosigmoid resection and reanastomosis currently receiving chemotherapy treatments to gynecology oncology at [facility] presents after sent by [facility] rail switch operator onc for increasing shortness of breath and to r/o PE. Hemoglobin on labs drawn today 8, compared to 9.3 on labs drawn 5 days ago. Related Data Home Medications Medication Instructions Recorded Confirmed diltiazem HCl 180 mg 180 mg PO DAILY #90 tab-cap 02/19/19 02/23/20 capsule,extended release 24 hr atorvastatin 10 mg tablet 10 mg PO DAILY #90 tab 03/29/19 02/23/20 cannabidiol 100 mg/mL oral solution 25 mg PO ONCE ml 06/01/19 02/23/20 cholecalciferol (vitamin D3) 50 2,000 unit PO DAILY 06/01/19 02/23/20 mcg (2,000 unit) chewable tablet acetaminophen 325 mg tablet 650 mg PO Q6H PRN #300 tab 08/11/19 02/23/20 ibuprofen 600 mg tablet 600 mg PO Q6H PRN #120 tab 08/11/19 02/23/20 ondansetron HCl 8 mg tablet 8 mg PO Q8H PRN 08/19/19 02/23/20 prochlorperazine maleate 10 mg 10 mg PO Q6H PRN 08/19/19 02/23/20 tablet bupropion HCl 300 mg 24 hr tablet, 300 mg PO QAM #90 tab 09/17/19 02/23/20 extended release alpha lipoic acid 600 mg capsule 600 mg PO DAILY 09/21/19 02/23/20 ascorbic acid (vitamin C) 1,000 mg 1 gm PO DAILY tab 09/21/19 02/23/20 tablet diltiazem HCl 30 mg tablet 30 mg PO .COMPLEX PRN 09/21/19 02/23/20 glutamine 15 gram oral powder 15 gm PO DAILY 09/21/19 02/23/20 packet pyridoxine (vitamin B6) 100 mg 100 mg PO DAILY tab 09/21/19 02/23/20 tablet zinc 50 mg tablet 50 mg PO DAILY 09/21/19 02/23/20 Zejula 200 mg PO HS 01/27/20 02/23/20 metoprolol succinate 50 mg 50 mg PO DAILY 02/07/20 02/23/20 tablet,extended release 24 hr Previous Rx's Medication Instructions Recorded diltiazem HCl 180 mg 180 mg PO DAILY #90 tab-cap 02/19/19 capsule,extended release 24 hr atorvastatin 10 mg tablet 10 mg PO DAILY #90 tab 03/29/19 acetaminophen 325 mg tablet 650 mg PO Q6H PRN #300 tab 08/11/19 ibuprofen 600 mg tablet 600 mg PO Q6H PRN #120 tab 08/11/19 bupropion HCl 300 mg 24 hr tablet, 300 mg PO QAM #90 tab 09/17/19 extended release Allergies Allergy/AdvReac Type Severity Reaction Status Date / Time penicillin V Allergy Severe Verified 02/23/20 13:21 paroxetine Allergy Intermediate Verified 02/23/20 13:21 paclitaxel [From Taxol] AdvReac Intermediate Other (See Verified 02/23/20 13:21 Comment) sertraline AdvReac Intermediate Verified 02/23/20 13:21 venlafaxine AdvReac Intermediate Verified 02/23/20 13:21 General KADY: 2 Review of Systems All systems reviewed & are unremarkable except as noted in HPI and below Constitutional Constitutional: Reports as per HPI, Denies chills, Reports fatigue, Denies f ever(s) and Reports poor appetite Eyes Eyes: Denies blurry vision ENT Ears, Nose, Mouth, and Throat: Denies dizziness, Denies sore throat and Denies throat swelling Cardiovascular Cardiovascular: Denies chest pain and Reports dyspnea Respiratory Respiratory: Denies cough and Reports dyspnea Gastrointestinal Gastrointestinal: Denies abdominal pain, Denies diarrhea and Denies vomiting Genitourinary Genitourinary: Denies hematuria and Denies dysuria Musculoskeletal Musculoskeletal: Denies back pain and Denies numbness Integumentary/Breasts Skin/Breast: Denies lesions and Denies rash Neurologic Neurologic: Denies dizziness, Denies localized weakness and Denies numbness Endocrine Endocrine: Reports fatigue Allergic/Immunologic Allergic/Immunologic: Denies throat swelling [facility] Medical History Aortic stenosis, severe [place] [facility] [place] vaginitis (11/28/16) 10/2017 RX vaginal estrogen 10 mcg tablet 2x/week 02/2018 Rx for Estring. Depression (08/08/15) Long-term use of Wellbutrin, stopped and takes CBD oil. Has increased vitamin D supplements. Dyspareunia (12/02/14) Elevated cholesterol Hypertension Lichen sclerosus et atrophicus of the vulva Involving the periclitoral region and labia minora treated with clobetasol 0.05% with good results. 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 Tumor grade IIIB. 08/18/19 [place] [facility] [place] Teaching Pelvic pain Onset 05/2019 left sided. Pulse irregularity Per palpation & puls-ox. Wearing HOLTOR MON[employer]OR, so no EKG done.. considering marleny BECKHAM (01/28/20). Sick-euthyroid syndrome Possible Dx .. Palpitations with Hx changing TSH levels.. Surgical History Appendectomy (08/26/13) Dr. Rabago section x2 S/P total abdominal hysterectomy and bilateral salpingo-oophorectomy (07/20/19) bilateral pelvic and paraaortic lymphadenectomy, infracolic omentectomy, rectosigmoid resection and reanastomosis Family History Mother Personal history of malignant neoplasm cervical Father No problems noted. 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 [employer] What type of physical activity do you participate in: swimming and additional Details: up and down stairs at work Frequency: 5-6 times per week Do you feel safe at home: Yes Do you feel safe in your relationship?: Yes Female Reproductive History Menstrual control method: none Menopause type: natural Date of menopause: 04/21/10 (approximately 50yo) History History 2 Para Hx # Term Pregnancies 2 Multiple births Hx # Pregnancies 0 Ectopic pregnancies 0 AB induced Hx Number of Living Children AB spontaneous Exam Const General: cooperative, healthy appearing and no acute distress HENMT Head: normal to inspection Face and sinus: normal facial exam Eyes General: appearance normal, both eyes and all related structures Pupils: PERRL EOM: EOM intact bilaterally Neck Neck: normal visual inspection and No submandibular swelling Lymphatic: no lymphadenopathy noted Chest Chest: normal inspection of the chest and no tenderness Resp Effort & Inspection: normal respiratory effort and able to speak in complete sentences Auscultation: clear to auscultation bilaterally Cardio Rate: regular rate Rhythm: regular rhythm GI Inspection: normal to inspection Palpation: soft, not firm, not rigid and nontender Auscultation: normal bowel sounds Back/Spine/Pelvis Thoracic/Lumbar Spine: thoracic and lumbar spine normal to inspection Pelvis: no pain with anterior-posterior compression Skin General skin exam: no rashes or lesions noted Neuro General: patient alert, patient awake and patient oriented x3 Cognition: normal cognition Speech: speech normal Motor: muscle tone normal throughout Sensory Exam: no sensory deficits noted Extrem General: normal to inspection, full ROM, capillary refill normal, no calf tenderness bilaterally and no edema Psych Appearance: grossly normal Mental Status: mental status grossly normal Speech and Movement: speech and movement normal Affect: normal affect
--- NOTE | 2020-02-23 13:15 | DI.CT_ITS ---
EXAM: CT CHEST PE CTA CLINICAL HISTORY: sob, r/o acute PE. TECHNIQUE: Imaging Protocol: Axial CT angiography was performed with multi-slice acquisition and mu lti-planar and/or 3D reconstructions. CONTRAST MATERIAL: Intravenous: Omnipaque 350 Contrast volume:60 mL COMPARISON: CT CT CHEST PE CTA from 01/27/2020 FINDINGS: Pulmonary Arteries: No evidence of filling defect to suggest pulmonary emboli. Tracheobronchial tree: Patent where visualized. Mediastinum and Kae: No dominant adenopathy or fluid collection. Small hiatal hernia. Pulmonary parenchyma: No consolidation or dominant measurable mass. No architectural distortion. Mild dependent atelectasis. Pleura: No effusion or pneumothorax. Heart: The heart is not dilated. Mild coronary artery calcification. No pericardial effusion. Aorta: Thoracic aorta non-dilated. No evidence of dissection. Upper abdomen: Stable right hepatic cyst. Bones: Degenerative changes in the spine. Tubes, Catheters, and Lines: There is an indwelling central venous catheter in good position. Soft tissues: Unremarkable. IMPRESSION: No evidence of pulmonary embolism, thoracic aortic dissection or aneurysm. Findings were discussed with the emergency department on the date of the examination. RADIATION DOSE DELIVERED: 239.36mGy.cm Total DLP DATA REPOSITORY: All CT scans at this facility are submitted to the National Radiology Data Registry (NRDR) Dose Index Registry (DIR) with the [employer] (A[employer]). RADIATION OPTIMIZATION: All CT scans at this facility use at least one of these dose optimization te chniques: automated exposure control; mA and/or kV adjustment per patient size (includes targeted exa ms where dose is matched to clinical indication); or iterative reconstruction.
[2020-02-23 13:17] LABS: Abs Immature Grans 0.01 10^3/uL (0.0-0.06); Absolute Basophil Count 0.02 10^3/uL (0.0-0.2); Absolute Eosinophil Count 0.07 10^3/uL (0.0-0.7); Absolute Lymphocyte Count 1.92 10^3/uL (1.2-3.4); Absolute Monocyte Count 0.42 10^3/uL (0.1-0.8); Basophils % 0.5; Eosinophils % 1.8; HGB 7.4 g/dL (11.2-15.7); Immature Grans % 0.3; Lymphocytes % 48.4; MCH 35.2 pg (27.0-33.0); MCHC 35.2 % (32.0-36.0); MPV 10.8 fL (8.0-11.0); Monocytes % 10.6; Neutrophils % 38.4; Nucleated RBC 0 %; RDW 11.8 % (11.7-14.6); RDW-SD 42.8 fL; WBC 3.97 10^3/uL (4.4-10.8)
[2020-02-23 13:33] LABS: ALT 22 U/L (14-59); AST 14 U/L (15-37); Absolute Neutrophil Count 1.52 10^3/uL (1.2-6.7); Albumin 3.8 g/dL (3.4-5.0); Alkaline Phosphatase 78 U/L (46-116); Anion Gap 10.1 mmol/L (3-11); BUN 16 mg/dL (7-18); Bilirubin, Total 0.8 mg/dL (0.2-1.0); CO2 25.9 mmol/L (21.0-32.0); CREATININE 0.82 mg/dL (0.55-1.02); Calcium 9.2 mg/dL (8.5-10.1); Chloride 102 mmol/L (98-107); Glucose 116 mg/dL (74-106); Magnesium 1.6 mg/dL (1.8-2.4); Potassium 3.6 mmol/L (3.5-5.1); Sodium 138 mmol/L (136-145)
[2020-02-23 13:34] LABS: Troponin I < 0.05 ng/mL (<0.06)
[2020-02-23 13:35] LABS: PTT Activated 20.8 sec (21.0-27.5); Prothrombin Time 10.4 sec (9.3-11.0)
[2020-02-23 13:38] LABS: Platelet Count 21 10^3/uL (130-400)
[2020-02-23 13:39] LABS: RBC Morphology Normal
[2020-02-23 13:40] LABS: Diff Comment Diff Reviewed
[2020-02-23] MEDS: Omnipaque 350 MG/ML 100 ML BTL 60 ML IJ (14:07)
[2020-02-23] MEDS: Normal Saline - Diluent 50 ML VIAL IV (14:08)
[2020-02-23] MEDS: Normal Saline 500 ML IV (14:27)
== END 2020-02-23 17:38 | disposition home or self-care (01) ==
PROVIDERS: Emergency Provider Physician Assistant; PCP Nurse Practitioner
DX: D64.81 Anemia due to antineoplastic chemotherapy (principal); D69.6 Thrombocytopenia, unspecified; T45.1X5A Adverse effect of antineoplastic and immunosuppressive drugs, initial encounter; C56.1 Malignant neoplasm of right ovary; Z79.899 Other long term (current) drug therapy; Z95.828 Presence of other vascular implants and grafts
CPT/HCPCS: 36430; 36591; 71275; 80053; 86850; 86900; 86901; 86920; 93005; 96360; 99285; 83735; 84484; 85025; 85610; 85730; 93010; J3490; P9016

== ENCOUNTER 2020-03-20 02:01 | Outpatient (RCR) | payer OTHER, SELFPAY ==
[2020-02-23] MEDS: Normal Saline Flush 10 ML SYR IVP (11:17)
[2020-02-23 11:27] LABS: Abs Immature Grans 0.01 10^3/uL (0.0-0.06); Absolute Basophil Count 0.01 10^3/uL (0.0-0.2); Absolute Eosinophil Count 0.09 10^3/uL (0.0-0.7); Absolute Monocyte Count 0.53 10^3/uL (0.1-0.8); Absolute Neutrophil Count 1.95 10^3/uL (1.2-6.7); Basophils % 0.2; Eosinophils % 1.9; HCT 22.8 % (36.0-46.0); Immature Grans % 0.2; Lymphocytes % 45.9; MCH 35.4 pg (27.0-33.0); MCHC 35.1 % (32.0-36.0); MCV 100.9 fL (80-95); Monocytes % 11.1; Neutrophils % 40.7; Nucleated RBC 0 %; RBC 2.26 10^6/uL (3.93-5.22); RDW 11.9 % (11.7-14.6); RDW-SD 43.7 fL; WBC 4.79 10^3/uL (4.4-10.8)
[2020-02-23 11:39] LABS: ALT 22 U/L (14-59); AST 15 U/L (15-37); Alkaline Phosphatase 83 U/L (46-116); Anion Gap 7.2 mmol/L (3-11); BUN 16 mg/dL (7-18); Bilirubin, Total 0.8 mg/dL (0.2-1.0); CO2 27.8 mmol/L (21.0-32.0); CREATININE 0.73 mg/dL (0.55-1.02); Calcium 9.2 mg/dL (8.5-10.1); Chloride 101 mmol/L (98-107); Glucose 113 mg/dL (74-106); Potassium 4.1 mmol/L (3.5-5.1); Sodium 136 mmol/L (136-145); Total Protein 7.5 g/dL (6.4-8.2)
[2020-02-23 11:59] LABS: Diff Comment PLT Morph Reviewed
[2020-02-23 12:00] LABS: RBC Morphology Normal
[2020-02-23 12:01] LABS: Platelet Count 26 10^3/uL (130-400)
[2020-02-23 12:24] LABS: TSH (W/Ref FT4) 3.98 uIU/mL (0.36-3.74)
[2020-02-23 12:45] LABS: FREE T4 0.98 ng/dL (0.76-1.46)
[2020-02-24 16:35] LABS: T3,Free 4.06 pg/mL (2.8-5.3)
[2020-02-28 11:22] LABS: Abs Immature Grans 0.04 10^3/uL (0.0-0.06); Absolute Basophil Count 0.01 10^3/uL (0.0-0.2); Absolute Eosinophil Count 0.05 10^3/uL (0.0-0.7); Absolute Lymphocyte Count 1.75 10^3/uL (1.2-3.4); Absolute Monocyte Count 0.77 10^3/uL (0.1-0.8); Absolute Neutrophil Count 2.47 10^3/uL (1.2-6.7); Basophils % 0.2; HCT 27.8 % (36.0-46.0); HGB 9.7 g/dL (11.2-15.7); Immature Grans % 0.8; Lymphocytes % 34.4; MCH 34.6 pg (27.0-33.0); MCHC 34.9 % (32.0-36.0); MCV 99.3 fL (80-95); MPV 9.9 fL (8.0-11.0); Monocytes % 15.1; Neutrophils % 48.5; Nucleated RBC 0 %; Platelet Count 145 10^3/uL (130-400); RDW 14.4 % (11.7-14.6); RDW-SD 50.4 fL; WBC 5.09 10^3/uL (4.4-10.8)
[2020-02-28] MEDS: Normal Saline Flush 10 ML SYR IVP (11:32)
[2020-02-28 11:34] LABS: ALT 21 U/L (14-59); AST 15 U/L (15-37); Alkaline Phosphatase 82 U/L (46-116); Anion Gap 9.4 mmol/L (3-11); BUN 12 mg/dL (7-18); Bilirubin, Total 0.7 mg/dL (0.2-1.0); CO2 26.6 mmol/L (21.0-32.0); CREATININE 0.72 mg/dL (0.55-1.02); Calcium 9.5 mg/dL (8.5-10.1); Chloride 102 mmol/L (98-107); Glucose 104 mg/dL (74-106); Potassium 3.9 mmol/L (3.5-5.1); Sodium 138 mmol/L (136-145); Total Protein 7.6 g/dL (6.4-8.2)
[2020-03-06] MEDS: Heparin 500 UNITS/5 ML SYRINGE IV (11:02)
[2020-03-06] MEDS: Normal Saline Flush 10 ML SYR IVP (11:02)
[2020-03-06 11:16] LABS: Abs Immature Grans 0.03 10^3/uL (0.0-0.06); Absolute Basophil Count 0.05 10^3/uL (0.0-0.2); Absolute Eosinophil Count 0.01 10^3/uL (0.0-0.7); Absolute Lymphocyte Count 1.38 10^3/uL (1.2-3.4); Absolute Monocyte Count 0.58 10^3/uL (0.1-0.8); Absolute Neutrophil Count 3.87 10^3/uL (1.2-6.7); Basophils % 0.8; Eosinophils % 0.2; HCT 31.2 % (36.0-46.0); HGB 10.3 g/dL (11.2-15.7); Immature Grans % 0.5; Lymphocytes % 23.3; MCH 34.2 pg (27.0-33.0); MCV 103.7 fL (80-95); MPV 9.1 fL (8.0-11.0); Monocytes % 9.8; Neutrophils % 65.4; Nucleated RBC 0 %; Platelet Count 306 10^3/uL (130-400); RBC 3.01 10^6/uL (3.93-5.22); RDW 18.2 % (11.7-14.6); RDW-SD 68.1 fL; WBC 5.92 10^3/uL (4.4-10.8)
[2020-03-06 11:25] LABS: ALT 24 U/L (14-59); AST 14 U/L (15-37); Albumin 3.9 g/dL (3.4-5.0); Alkaline Phosphatase 81 U/L (46-116); Anion Gap 8.1 mmol/L (3-11); BUN 11 mg/dL (7-18); Bilirubin, Total 0.6 mg/dL (0.2-1.0); CO2 25.9 mmol/L (21.0-32.0); Calcium 9.1 mg/dL (8.5-10.1); Chloride 104 mmol/L (98-107); Glucose 103 mg/dL (74-106); Potassium 3.8 mmol/L (3.5-5.1); Sodium 138 mmol/L (136-145); Total Protein 7.4 g/dL (6.4-8.2)
[2020-03-13] MEDS: Normal Saline Flush 10 ML SYR IVP (11:06)
[2020-03-13] MEDS: Heparin 500 UNITS/5 ML SYRINGE IV (11:06)
[2020-03-13 11:21] LABS: Abs Immature Grans 0.02 10^3/uL (0.0-0.06); Absolute Basophil Count 0.07 10^3/uL (0.0-0.2); Absolute Eosinophil Count 0.02 10^3/uL (0.0-0.7); Absolute Lymphocyte Count 1.29 10^3/uL (1.2-3.4); Absolute Monocyte Count 0.68 10^3/uL (0.1-0.8); Absolute Neutrophil Count 5.98 10^3/uL (1.2-6.7); Basophils % 0.9; Eosinophils % 0.2; HCT 32.5 % (36.0-46.0); Immature Grans % 0.2; MCH 35.5 pg (27.0-33.0); MCHC 33.8 % (32.0-36.0); MCV 104.8 fL (80-95); Monocytes % 8.4; Neutrophils % 74.3; Nucleated RBC 0 %; Platelet Count 275 10^3/uL (130-400); RDW 17.7 % (11.7-14.6); RDW-SD 68.5 fL; WBC 8.06 10^3/uL (4.4-10.8)
[2020-03-13 11:43] LABS: ALT 20 U/L (14-59); AST 18 U/L (15-37); Alkaline Phosphatase 77 U/L (46-116); Anion Gap 9.5 mmol/L (3-11); BUN 16 mg/dL (7-18); Bilirubin, Total 1.1 mg/dL (0.2-1.0); CO2 25.5 mmol/L (21.0-32.0); CREATININE 0.71 mg/dL (0.55-1.02); Chloride 101 mmol/L (98-107); Glucose 96 mg/dL (74-106); Potassium 3.9 mmol/L (3.5-5.1); Sodium 136 mmol/L (136-145); Total Protein 7.5 g/dL (6.4-8.2)
[2020-03-20] MEDS: Heparin 500 UNITS/5 ML SYRINGE IV (11:14)
[2020-03-20] MEDS: Normal Saline Flush 10 ML SYR IVP (11:14)
[2020-03-20 11:30] LABS: Abs Immature Grans 0.02 10^3/uL (0.0-0.06); Absolute Basophil Count 0.05 10^3/uL (0.0-0.2); Absolute Eosinophil Count 0.13 10^3/uL (0.0-0.7); Absolute Lymphocyte Count 1.15 10^3/uL (1.2-3.4); Absolute Monocyte Count 0.49 10^3/uL (0.1-0.8); Absolute Neutrophil Count 4.89 10^3/uL (1.2-6.7); Basophils % 0.7; Eosinophils % 1.9; HCT 35.9 % (36.0-46.0); HGB 11.9 g/dL (11.2-15.7); Immature Grans % 0.3; Lymphocytes % 17.1; MCH 35.1 pg (27.0-33.0); MCHC 33.1 % (32.0-36.0); MCV 105.9 fL (80-95); MPV 9.1 fL (8.0-11.0); Monocytes % 7.3; Neutrophils % 72.7; Nucleated RBC 0 %; Platelet Count 188 10^3/uL (130-400); RBC 3.39 10^6/uL (3.93-5.22); RDW 17.6 % (11.7-14.6); RDW-SD 68.8 fL; WBC 6.73 10^3/uL (4.4-10.8)
[2020-03-20 11:43] LABS: CA 125 6 U/mL (<30)
[2020-03-20 11:43] LABS: ALT 27 U/L (14-59); AST 17 U/L (15-37); Albumin 4.1 g/dL (3.4-5.0); Alkaline Phosphatase 76 U/L (46-116); Anion Gap 7.1 mmol/L (3-11); BUN 14 mg/dL (7-18); Bilirubin, Total 0.9 mg/dL (0.2-1.0); CO2 26.9 mmol/L (21.0-32.0); CREATININE 0.86 mg/dL (0.55-1.02); Calcium 9.5 mg/dL (8.5-10.1); Chloride 104 mmol/L (98-107); Glucose 81 mg/dL (74-106); Potassium 3.9 mmol/L (3.5-5.1); Sodium 138 mmol/L (136-145); Total Protein 7.6 g/dL (6.4-8.2)
== END 2020-03-20 23:59 | disposition home or self-care (01) ==
LOC: INF 02:01
PROVIDERS: Student in an Organized Health Care Education/Training Program; PCP Nurse Practitioner; Visit Provider Obstetrics & Gynecology Gynecologic Oncology
DX: C56.9 Malignant neoplasm of unspecified ovary (principal); Z45.2 Encounter for adjustment and management of vascular access device
CPT/HCPCS: 36591; 80053; 86304; 84439; 84443; 84481; 85025

== ENCOUNTER 2020-04-18 11:00 | Outpatient (RCR) | payer OTHER, SELFPAY ==
[2020-03-27] MEDS: Normal Saline Flush 10 ML SYR IVP (11:13)
[2020-03-27] MEDS: Heparin 500 UNITS/5 ML SYRINGE IV (11:14)
[2020-03-27 11:18] LABS: Abs Immature Grans 0.03 10^3/uL (0.0-0.06); Absolute Basophil Count 0.04 10^3/uL (0.0-0.2); Absolute Eosinophil Count 0.14 10^3/uL (0.0-0.7); Absolute Lymphocyte Count 1.38 10^3/uL (1.2-3.4); Absolute Neutrophil Count 4.44 10^3/uL (1.2-6.7); Basophils % 0.6; Eosinophils % 2.1; HCT 35.3 % (36.0-46.0); HGB 11.8 g/dL (11.2-15.7); Immature Grans % 0.5; Lymphocytes % 20.8; MCH 35.4 pg (27.0-33.0); MCHC 33.4 % (32.0-36.0); MPV 8.9 fL (8.0-11.0); Nucleated RBC 0 %; Platelet Count 165 10^3/uL (130-400); RBC 3.33 10^6/uL (3.93-5.22); RDW 16.7 % (11.7-14.6); RDW-SD 66.5 fL; WBC 6.63 10^3/uL (4.4-10.8)
[2020-03-27 11:30] LABS: Anisocytosis 1+; Diff Comment RBC Morph Reviewed; Macrocytosis 2+; Polychromasia Present
[2020-03-27 11:38] LABS: ALT 25 U/L (14-59); AST 18 U/L (15-37); Albumin 4.1 g/dL (3.4-5.0); Alkaline Phosphatase 79 U/L (46-116); Anion Gap 5.5 mmol/L (3-11); BUN 16 mg/dL (7-18); Bilirubin, Total 0.9 mg/dL (0.2-1.0); CO2 27.5 mmol/L (21.0-32.0); CREATININE 0.81 mg/dL (0.55-1.02); Calcium 9.5 mg/dL (8.5-10.1); Chloride 101 mmol/L (98-107); Glucose 115 mg/dL (74-106); Potassium 4.1 mmol/L (3.5-5.1); Sodium 134 mmol/L (136-145); Total Protein 7.6 g/dL (6.4-8.2)
[2020-04-18] MEDS: Normal Saline Flush 10 ML SYR IVP (11:16)
[2020-04-18] MEDS: Heparin 500 UNITS/5 ML SYRINGE IV (11:17)
[2020-04-18 11:34] LABS: Abs Immature Grans 0.02 10^3/uL (0.0-0.06); Absolute Basophil Count 0.04 10^3/uL (0.0-0.2); Absolute Eosinophil Count 0.09 10^3/uL (0.0-0.7); Absolute Monocyte Count 0.52 10^3/uL (0.1-0.8); Absolute Neutrophil Count 4.58 10^3/uL (1.2-6.7); Basophils % 0.6; Eosinophils % 1.3; HCT 36.9 % (36.0-46.0); HGB 12.5 g/dL (11.2-15.7); Immature Grans % 0.3; Lymphocytes % 22.2; MCH 36.2 pg (27.0-33.0); MCHC 33.9 % (32.0-36.0); MPV 9.2 fL (8.0-11.0); Monocytes % 7.7; Neutrophils % 67.9; Nucleated RBC 0 %; Platelet Count 178 10^3/uL (130-400); RBC 3.45 10^6/uL (3.93-5.22); RDW 14.6 % (11.7-14.6); RDW-SD 57.1 fL; WBC 6.75 10^3/uL (4.4-10.8)
[2020-04-18 11:54] LABS: ALT 27 U/L (14-59); AST 17 U/L (15-37); Albumin 4.1 g/dL (3.4-5.0); Alkaline Phosphatase 81 U/L (46-116); Anion Gap 6.8 mmol/L (3-11); BUN 21 mg/dL (7-18); Bilirubin, Total 0.9 mg/dL (0.2-1.0); CO2 27.2 mmol/L (21.0-32.0); CREATININE 0.83 mg/dL (0.55-1.02); Calcium 9.5 mg/dL (8.5-10.1); Chloride 103 mmol/L (98-107); Glucose 98 mg/dL (74-106); Sodium 137 mmol/L (136-145); Total Protein 7.5 g/dL (6.4-8.2)
[2020-04-19 09:48] LABS: CA 125 6 U/mL (<30)
== END 2020-04-20 23:59 | disposition home or self-care (01) ==
LOC: INF 11:00
PROVIDERS: PCP Nurse Practitioner; Visit Provider Obstetrics & Gynecology Gynecologic Oncology
DX: C56.9 Malignant neoplasm of unspecified ovary (principal); Z45.2 Encounter for adjustment and management of vascular access device
CPT/HCPCS: 36591; 80053; 86304; 85025

== ENCOUNTER 2020-05-08 01:56 | Outpatient (RCR) | payer OTHER, SELFPAY ==
[2020-05-08 11:28] LABS: Abs Immature Grans 0.01 10^3/uL (0.0-0.06); Absolute Basophil Count 0.05 10^3/uL (0.0-0.2); Absolute Lymphocyte Count 1.67 10^3/uL (1.2-3.4); Absolute Monocyte Count 0.54 10^3/uL (0.1-0.8); Absolute Neutrophil Count 4.26 10^3/uL (1.2-6.7); Basophils % 0.8; Eosinophils % 1.5; HCT 36.5 % (36.0-46.0); HGB 12.7 g/dL (11.2-15.7); Immature Grans % 0.2; Lymphocytes % 25.2; MCHC 34.8 % (32.0-36.0); MCV 106.4 fL (80-95); MPV 8.8 fL (8.0-11.0); Monocytes % 8.1; Neutrophils % 64.2; Nucleated RBC 0 %; Platelet Count 187 10^3/uL (130-400); RBC 3.43 10^6/uL (3.93-5.22); RDW 13.2 % (11.7-14.6); RDW-SD 51.5 fL; WBC 6.63 10^3/uL (4.4-10.8)
[2020-05-08 11:40] LABS: ALT 28 U/L (14-59); AST 18 U/L (15-37); Alkaline Phosphatase 87 U/L (46-116); Anion Gap 7.5 mmol/L (3-11); BUN 18 mg/dL (7-18); Bilirubin, Total 0.8 mg/dL (0.2-1.0); CO2 27.5 mmol/L (21.0-32.0); Calcium 9.3 mg/dL (8.5-10.1); Chloride 103 mmol/L (98-107); Glucose 91 mg/dL (74-106); Potassium 3.7 mmol/L (3.5-5.1); Sodium 138 mmol/L (136-145); Total Protein 7.4 g/dL (6.4-8.2)
[2020-05-08] MEDS: Heparin 500 UNITS/5 ML SYRINGE IV (11:53)
[2020-05-08] MEDS: Normal Saline Flush 10 ML SYR IVP (11:53)
[2020-05-09 10:10] LABS: CA 125 6 U/mL (<30)
== END 2020-05-21 23:59 | disposition home or self-care (01) ==
LOC: INF 01:56
PROVIDERS: PCP Nurse Practitioner; Visit Provider Obstetrics & Gynecology Gynecologic Oncology
DX: C56.9 Malignant neoplasm of unspecified ovary (principal); Z45.2 Encounter for adjustment and management of vascular access device
CPT/HCPCS: 36591; 80053; 86304; 85025

== ENCOUNTER 2020-06-05 01:21 | Outpatient (RCR) | payer OTHER, SELFPAY ==
[2020-06-05] MEDS: Heparin 500 UNITS/5 ML SYRINGE IV (11:18)
[2020-06-05] MEDS: Normal Saline Flush 10 ML SYR IVP (11:18)
[2020-06-05 11:33] LABS: Abs Immature Grans 0.02 10^3/uL (0.0-0.06); Absolute Basophil Count 0.05 10^3/uL (0.0-0.2); Absolute Eosinophil Count 0.11 10^3/uL (0.0-0.7); Absolute Lymphocyte Count 1.86 10^3/uL (1.2-3.4); Absolute Monocyte Count 0.61 10^3/uL (0.1-0.8); Absolute Neutrophil Count 5.38 10^3/uL (1.2-6.7); Basophils % 0.6; Eosinophils % 1.4; HCT 36.8 % (36.0-46.0); HGB 12.7 g/dL (11.2-15.7); Immature Grans % 0.2; Lymphocytes % 23.2; MCH 36.9 pg (27.0-33.0); MCHC 34.5 % (32.0-36.0); MPV 9.2 fL (8.0-11.0); Monocytes % 7.6; Nucleated RBC 0 %; Platelet Count 201 10^3/uL (130-400); RBC 3.44 10^6/uL (3.93-5.22); RDW 12.5 % (11.7-14.6); RDW-SD 49.1 fL; WBC 8.03 10^3/uL (4.4-10.8)
[2020-06-05 11:44] LABS: ALT 30 U/L (14-59); AST 21 U/L (15-37); Albumin 3.9 g/dL (3.4-5.0); Alkaline Phosphatase 96 U/L (46-116); Anion Gap 7.8 mmol/L (3-11); BUN 19 mg/dL (7-18); CO2 26.2 mmol/L (21.0-32.0); CREATININE 0.7 mg/dL (0.55-1.02); Calcium 9.2 mg/dL (8.5-10.1); Chloride 103 mmol/L (98-107); Glucose 110 mg/dL (74-106); Potassium 3.8 mmol/L (3.5-5.1); Sodium 137 mmol/L (136-145); Total Protein 7.3 g/dL (6.4-8.2)
[2020-06-06 11:05] LABS: CA 125 6 U/mL (<30)
== END 2020-06-18 23:59 | disposition home or self-care (01) ==
LOC: INF 01:21
PROVIDERS: PCP Nurse Practitioner; Visit Provider Obstetrics & Gynecology Gynecologic Oncology
DX: C56.9 Malignant neoplasm of unspecified ovary (principal); Z45.2 Encounter for adjustment and management of vascular access device
CPT/HCPCS: 36591; 80053; 86304; 85025

== ENCOUNTER 2020-07-20 22:33 | Observation (INO) | payer OTHER, SELFPAY ==
[2020-07-20] VITALS (12 sets, daily range): BP systolic 102–148; BP diastolic 64–103; PULSE 80–122; RESP 9–17; TEMP 36.9; O2SAT 95–97
--- NOTE | 2020-07-20 22:30 | RT.EKG_ITS ---
APPROVED REPORT Exam: Resting ECG Patient Location: E HR:111 bpm ECG Measurements Heart Rate 111 AXIS OK 176 P 101 QRSd 78 QRS 41 QT 319 T 33 QTc 434 Conclusion Sinus tachycardia...rate> 99 Consider anteroseptal infarct...Q >30mS, dimin R, V1-V2 Physician: No STEMI, sinus tach, no significant ST elevations or depressions, intervals unremarkable.
--- NOTE | 2020-07-20 22:44 | W.ED.GENAD ---
Discharge Plan Disposition Patient Disposition: [facility] INPATIENT Condition: Stable Discharge Details Clinical Impression: Heart palpitations Admit Date/Time: 07/21/20 00:57 Admit Provider: Cristóbal Zendejas Attending Provider: Cristóbal Zendejas Primary Care Provider: Evelyne Hunt ED Provider: Rosamaria Whitlock Discharge Data Discharge Date/Time-TO BE ENTERED AT DEPARTURE: 07/21/20 04:28 Medical Decision Making 59-year-old female presents to the ER with chief complaint of heart racing and palpitations which began this morning. Patient does have a history of SVT. She states that she did take a breakthrough medication prior to arrival. She takes diltiazem 30 mg tablets and diltiazem 240 extended release daily. She does not take any blood thinners or aspirin. She denies any chest pain, shortness of breath, nausea vomiting diarrhea or any other associated symptoms. Patient has a past medical history of aortic stenosis, ovarian cancer, depression, high cholesterol, hypertension she did not take any anticoagulation currently. At this time work-up ordered including CBC, CMP, serial troponins, CT chest rule out PE. EKG was reviewed by Jono Izquierdo DO ER attending, please see his official report. There was no old EKG available for review. At this time rate is regular, does not appear patient is in atrial fibrillation. At this time differential diagnosis includes but not limited to coronary artery disease, dehydration, converted SVT, pulmonary embolism. Work-up is initially largely within normal limits, CBC shows no leukocytosis, CMP largely within normal limits, albumin 4.1 initial troponin is less than 0.05, repeat troponin is due at 01 37. 0018: Patient's heart rate is now 89, she did have a short 3 to 4-second run of tachycardia and then converted out of this rhythm 0040: Discussed admission for observation and cardiology consult with patient who verbalizes understanding and is in agreement with the plan. COMPARISON: CT CHEST PE CTA 02/23/2020 1:53 PM FINDINGS: Tubes, catheters and devices: Right chest wall medication port with central venous catheter. Pulmonary arteries: Normal. No pulmonary emboli. Aorta: Unremarkable. No aortic aneurysm. No aortic dissection. Lungs: Calcified granuloma in the lingula. Mild biapical pleuroparenchymal scarring. Dependent subsegmental atelectasis in the lung bases. Pleural spaces: Unremarkable. No pneumothorax. No pleural effusion. Heart: Unremarkable. No cardiomegaly. No pericardial effusion. Lymph nodes: Unremarkable. No enlarged lymph nodes. Liver: No intrahepatic contrast reflux. 2.6 cm posterior right lobe hepatic cyst. Bones/joints: Unremarkable. No acute fracture. Soft tissues: Unremarkable. IMPRESSION: 1. No pulmonary embolism. 2. Prior granulomatous infection. 3. Unchanged posterior right lobe hepatic cyst. 0056: Spoke with Dr. Zendejas regarding patient case and details. He agrees to accept patient for admission. Will place ED holding orders. HPI General Mode of arrival: ambulatory. Date/Time Provider Initiated Documentation: 07/20/20 22:37. Limitations to Documentation: no limitations. Information obtained by: patient. HPI Narrative: 59-year-old female presents to the ER with chief complaint of heart racing and palpitations which began this morning. Patient does have a history of SVT. She states that she did take a breakthrough medication prior to arrival. She takes diltiazem 30 mg tablets and diltiazem 240 extended release daily. She does not take any blood thinners or aspirin. She denies any chest pain, shortness of breath, nausea vomiting diarrhea or any other associated symptoms. Patient has a past medical history of aortic stenosis, ovarian cancer, depression, high cholesterol, hypertension she does not take any anticoagulation currently. Related Data Home Medications Medication Instructions Recorded Confirmed prochlorperazine maleate 10 mg 10 mg PO Q6H PRN 08/19/19 07/21/20 tablet bupropion HCl 300 mg 24 hr tablet, 300 mg PO QAM #90 tab 09/17/19 07/21/20 extended release pyridoxine (vitamin B6) 100 mg 100 mg PO DAILY tab 09/21/19 07/21/20 tablet niraparib 100 mg capsule 100 mg PO HS cap 04/03/20 07/21/20 metoprolol succinate 25 mg 25 mg PO DAILY 05/11/20 07/21/20 tablet,extended release 24 hr atorvastatin 10 mg tablet 10 mg PO DAILY #90 tab 05/24/20 07/21/20 diltiazem HCl 360 mg PO DAILY #30 cap 07/21/20 Previous Rx's Medication Instructions Recorded bupropion HCl 300 mg 24 hr tablet, 300 mg PO QAM #90 tab 09/17/19 extended release atorvastatin 10 mg tablet 10 mg PO DAILY #90 tab 05/24/20 diltiazem HCl 360 mg PO DAILY #30 cap 07/21/20 Allergies Allergy/AdvReac Type Severity Reaction Status Date / Time penicillin V Allergy Severe Verified 02/23/20 13:21 paroxetine Allergy Intermediate Verified 02/23/20 13:21 paclitaxel [From Taxol] AdvReac Intermediate Other (See Verified 02/23/20 13:21 Comment) sertraline AdvReac Intermediate Verified 02/23/20 13:21 venlafaxine AdvReac Intermediate Verified 02/23/20 13:21 General Stated Complaint: Palpitatns KADY: 2 Review of Systems Narrative: Constitutional: Negative for weight loss, alert and oriented, well groomed, normal body habitus, appears comfortable. HEENT: Denies trauma, headaches, blurry vision, nasal discharge, sore throat, trouble swallowing. Chest: Denies chest pain, positive palpitations, heart racing which began early this morning. Has a history of SVT. Has a Port-A-Cath in place is on some oral chemo treatment for diagnosis of ovarian cancer. Respiratory: Denies Shortness of breath, cough, hemoptysis. GI: Denies abdominal pain, nausea, vomiting, diarrhea, constipation. : Denies dysuria, hematuria, flank pain, rectal bleeding. Neuro: Denies dizziness, blurry vision, weakness, syncope, headache or facial numbness. Hematologic: Denies easy bruising, intolerance to heat or cold, hair loss. [facility] Medical History Aortic stenosis, severe Followed at [facility] Atrophic vaginitis (11/28/16) 10/2017 RX vaginal estrogen 10 mcg tablet 2x/week 02/2018 Rx for Estring. Depression (08/08/15) Long-term use of Wellbutrin, stopped and takes CBD oil. Has increased vitamin D supplements. Dyspareunia (12/02/14) Elevated cholesterol Hypertension Lichen sclerosus et atrophicus of the vulva Involving the periclitoral region and labia minora treated with clobetasol 0.05% with good results. 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 Tumor grade IIIB. 08/18/19 Telehealth [facility] for Chemo Teaching Pelvic pain Onset 05/2019 left sided. Pulse irregularity Per palpation & puls-ox. Wearing [employer]OL[employer], so no EKG done.. considering [place] ik (01/28/20). Sick-euthyroid syndrome Possible Dx .. Palpitations with Hx changing TSH levels.. Surgical History Appendectomy (08/26/13) Dr. Rabago section x2 S/P total abdominal hysterectomy and bilateral salpingo-oophorectomy (07/20/19) bilateral pelvic and paraaortic lymphadenectomy, infracolic omentectomy, rectosigmoid resection and reanastomosis Family History Mother Personal history of malignant neoplasm cervical Father No problems noted. 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 Appears stated age. Normal body habitus. Head: Normocephalic, no trauma. Eyes: Pupils PERRLA, Red reflex noted, EOM's intact. Eyelids symmetrical without lesions, discharge, or swelling. ENT: Bilateral TM's WNL, External ear normal to inspection Chest: Sinus tachycardia at a rate of 120, normal S1, S2, distal pulses intact and equal bilaterally. Does have a Port-A-Cath noted to the right anterior chest wall. Resp: Lungs clear to auscultation bilaterally, no wheezes, rales, or rhonchi. Abdomen: Soft, nontender to palpation all 4 quadrants. Musculoskeletal: Normal gait, 5/5 strength to all four extremities. Skin: No suspicious rashes or lesions. Capillary refill less than 2 sec. Neurologic: Cranial nerves II-XII intact. Alert and oriented x 3. DTR's intact. Hematologic/Lymphatic: No ecchymosis, no lymphadenopathy. Course Vital Signs Vital signs: Vital Signs Temperature 36.9 C 07/20/20 22:38 Pulse 122 H 07/20/20 22:38 Respiratory Rate 12 07/20/20 22:38 Blood Pressure 148/103 H 07/20/20 22:38 Pulse Oximetry 97 07/20/20 22:38 Temperature 36.9 C 07/20/20 22:38 Temperature Source Temporal Artery Scan 07/20/20 22:38 Pulse 122 H 07/20/20 22:38 Respiratory Rate 12 07/20/20 22:38 Respiratory Effort Non-Labored 07/20/20 22:42 Blood Pressure 148/103 H 07/20/20 22:38 Pulse Oximetry 97 07/20/20 22:38 Oxygen Delivery Method Room Air 07/20/20 22:38 Oxygen Flow Rate 0 07/20/20 22:38 Pain Level 0 07/20/20 22:38
[2020-07-20] MEDS: Aspirin 81 MG CHEW 324 MG CH (22:56)
[2020-07-20 23:00] LABS: Abs Immature Grans 0.01 10^3/uL (0.0-0.06); Absolute Basophil Count 0.06 10^3/uL (0.0-0.2); Absolute Eosinophil Count 0.27 10^3/uL (0.0-0.7); Absolute Lymphocyte Count 2.12 10^3/uL (1.2-3.4); Absolute Monocyte Count 0.68 10^3/uL (0.1-0.8); Absolute Neutrophil Count 3.31 10^3/uL (1.2-6.7); Basophils % 0.9; Eosinophils % 4.2; HCT 39.4 % (36.0-46.0); Immature Grans % 0.2; Lymphocytes % 32.9; MCH 37.7 pg (27.0-33.0); MCHC 35.5 % (32.0-36.0); MCV 106.2 fL (80-95); MPV 8.9 fL (8.0-11.0); Monocytes % 10.5; Neutrophils % 51.3; Nucleated RBC 0 %; Platelet Count 188 10^3/uL (130-400); RBC 3.71 10^6/uL (3.93-5.22); RDW-SD 47.6 fL; WBC 6.45 10^3/uL (4.4-10.8)
[2020-07-20 23:07] LABS: Diff Comment RBC Morph Reviewed
[2020-07-20 23:10] LABS: Macrocytosis 1+
[2020-07-20 23:12] LABS: ALT 31 U/L (14-59); AST 17 U/L (15-37); Albumin 4.1 g/dL (3.4-5.0); Alkaline Phosphatase 106 U/L (46-116); Anion Gap 12.2 mmol/L (3-11); BUN 16 mg/dL (7-18); Bilirubin, Total 0.6 mg/dL (0.2-1.0); CO2 24.8 mmol/L (21.0-32.0); CREATININE 0.9 mg/dL (0.55-1.02); Calcium 9.9 mg/dL (8.5-10.1); Chloride 104 mmol/L (98-107); Glucose 105 mg/dL (74-106); Magnesium 1.8 mg/dL (1.8-2.4); Potassium 3.9 mmol/L (3.5-5.1); Sodium 141 mmol/L (136-145); Total Protein 7.9 g/dL (6.4-8.2)
[2020-07-20 23:15] LABS: Troponin I < 0.05 ng/mL (<0.06)
[2020-07-20] MEDS: Normal Saline 1,000 ML 1000 ML IV (23:21)
--- NOTE | 2020-07-20 23:55 | DI.CT_ITS ---
EXAM: CT CHEST PE CTA CLINICAL HISTORY: R/O PE, Palpitations, Port cath in place. TECHNIQUE: Imaging Protocol: Axial CT angiography was performed with multi-slice acquisition and mu lti-planar and/or 3D reconstructions. CONTRAST MATERIAL: Intravenous: Omnipaque 350 Contrast volume:structured data in ml COMPARISON: CT CT CHEST PE CTA from 02/23/2020 FINDINGS: CT angiography of the chest was performed with intravenous infusion of 61 cc of Omnipaque 350. The lungs are predominantly clear with an incidental left upper lobe calcified pulmonary granuloma no seferino.. No pleural effusion. Tracheobronchial tree appears intact. No evidence of pulmonary embolic disease. Thoracic aorta is of normal diameter, no thoracic aortic an eurysm or dissection, major branch vessels appear intact. No mediastinal or hilar adenopathy. Images obtained through the upper abdomen show unremarkable appearance of the visualized portions of the liver with a previously noted incidental hepatic cyst. Visualized portions of spleen pancreas ad renals and kidneys are unremarkable., IMPRESSION: Negative CT angiogram of the chest. No evidence of pulmonary embolic disease. RADIATION DOSE DELIVERED: 307.25mGy.cm Total DLP 307.25mGy.cm Total DLP DATA REPOSITORY: All CT scans at this facility are submitted to the National Radiology Data Registry (NRDR) Dose Index Registry (DIR) with the [employer] (ACR). RADIATION OPTIMIZATION: All CT scans at this facility use at least one of these dose optimization te chniques: automated exposure control; mA and/or kV adjustment per patient size (includes targeted exa ms where dose is matched to clinical indication); or iterative reconstruction.
[2020-07-21] VITALS (41 sets, daily range): BP systolic 100–139; BP diastolic 60–84; PULSE 68–98; RESP 10–25; TEMP 36.3–36.9; O2SAT 95–100
--- NOTE | 2020-07-21 | DI.US_ITS ---
APPROVED REPORT EXAM: Comprehensive 2D, Doppler, and color-flow Echocardiogram Patient Location: In-Patient Speedboat Driver: Harper Garcia RDCS (AE) Indications: Aortic Stenosis, New Arrhythmia, presycope Other Information Study Quality: Good Conclusion Left Ventricle : The left ventricle is normal size. The left ventricular systolic function is normal. The left ventricular ejection fraction is within the normal range. There is normal left ventricular wall thickness with basal septal hypertrophy. Echo findings are consistent with a mild left ventricul ar outflow tract obstruction. There is normal LV segmental wall motion. The left ventricular diastoli c function is normal. LVEF is 60-65%. Right Ventricle : The right ventricle is normal size. The right ventricular systolic function is norm al. The RVSP is 30.4mmHg. Aortic Valve : Severe aortic valve sclerosis. Number of aortic valve leaflets could not be assessed. Moderate aortic stenosis. Peak aortic valve gradient is 50.2mmHg. Highest mean aortic valve gradient is 30mmHg. Calculated SUDHAKAR by the continuity equation is 1.06cm2. Moderate aortic regurgitation. Mitral Valve : The mitral valve is normal in structure. Mild mitral regurgitation. No evidence of geremias ral valve stenosis. Great Vessels : The aortic root is normal in size. Ascending aorta is not well visualized. Aortic arc h is normal in caliber. IVC is normal in size and collapses >50% with inspiration. Compared to study at [facility] from January 2020, there is no significant change. Wall motion Left Ventricle The left ventricle is normal size. The left ventricular systolic function is normal. The left ventric ular ejection fraction is within the normal range. There is normal left ventricular wall thickness wi th basal septal hypertrophy. Echo findings are consistent with a mild left ventricular outflow tract obstruction. There is normal LV segmental wall motion. The left ventricular diastolic function is nor mal. There is no ventricular septal defect visualized. LVEF is 60-65%. Right Ventricle The right ventricle is normal size. The right ventricular systolic function is normal. The RVSP is 30 .4mmHg. Atria The left atrium size is normal. The right atrium size is normal. The interatrial septum is intact wit h no evidence for an atrial septal defect. Aortic Valve Severe aortic valve sclerosis. Number of aortic valve leaflets could not be assessed. Moderate aortic stenosis. Peak aortic valve gradient is 50.2mmHg. Highest mean aortic valve gradient is 30mmHg. Calc ulated SUDHAKAR by the continuity equation is 1.06cm2. Moderate aortic regurgitation. Mitral Valve The mitral valve is normal in structure. No evidence of mitral valve stenosis. Mild mitral regurgitat ion. There is a small degree of JERRY Tricuspid Valve The tricuspid valve is normal in structure. There is no tricuspid valve stenosis. Trace to mild tricu spid regurgitation. Pulmonic Valve Pulmonic valve is not well visualized. There is no pulmonic valvular stenosis. There is no pulmonic v alvular regurgitation. Great Vessels The aortic root is normal in size. Ascending aorta is not well visualized. Aortic arch is normal in c aliber. IVC is normal in size and collapses >50% with inspiration. Pericardium There is no pericardial effusion. 2D Dimensions IVSD d PLAX 1.00 cm F: 0.6-1.0 LV Vol A2C d MOD 83.2 mL LVPW d PLAX 1.04 cm F: 0.6 - 1.0 LV Vol A4C d MOD 94.7 mL LVID d PLAX 4.10 cm F: 3.8 - 5.2 LA vol/ BSA A2C s A-L 26.9 mL/m2 LVDs 2.70 cm F: 2.2 - 3.5 LA vol/ BSA A4C s A-L 18.0 mL/m2 Ao Root d 3.37 cm F: 2.7 - 3.3 LA Vol/ BSA Biplane s A-L 23.7 mL/m2 LV EF Teichholz 62.3 % LA Area A4C s MOD 11.94 cm2 LVEF (Arndt's) 62.67 % F: 54 - 74 LA Area A2C s MOD 15.70 cm2 LV Volume 71.03 mL F: 46 - 106 LV EF A4C MOD 65.9 % LV Volume Index 43.04 mL/m2 F: 29 - 61 LV EF A2C MOD 60.1 % LV Vol Biplane MOD 88.6 mL LV EF Biplane MOD 62.7 % FS 33.20 % SV 55.53 mL SV Index 33.50 mL/m2 M-Mode TAPSE 2.36 cm (M/F) >1.7 LV Diastology MV E' medial 0.057 (>0.07 m/s) E/A Ratio 1.0 LV E/e MED 9.20 (<14) MV E Vmax 0.53 (0.4-1.3 m/s) MV E' lateral 0.086 (>0.1 m/s) MV A Vmax 0.55 (0.4-1.3 m/s) LV E/e LAT 6.20 (<14) MV E/A Ratio 0.89 MV E/E' medial 9.24 MV E/E' lateral 6.20 Aortic Valve LVOT Area 3.40 cm2 AoV Area Vmax 1.06 cm2 LVOT Vmax 1.10 m/s AoV Area/ BSA (Vmax) 0.64 cm2/m2 LVOT Mean Kiko. 0.91 m/s SUDHAKAR Mean Kiko. 1.20 cm2 LVOT Peak Grad 4.9 mmHg SUDHAKAR Mean Kiko. Index 0.72 cm2/m2 LVOT Mean Grad 3.5 mmHg AR DT 1908 msec LVOT VTI 0.276 m AR PHT 553 msec LVOT Diam s 2.05 cm AoV Vmax 3.54 m/s Velocity Ratio 0.31 AoV Mean Kiko. 2.59 m/s AoV Peak Grad 50.2 mmHg LVOT SV 93.91 mL AoV Mean Grad 29.9 mmHg AoV VTI 0.691 m AoV Area VTI 1.36 cm2 AoV Area/ BSA (VTI) 0.82 cm/m2 Mitral Valve MV DT 294 (160-240 msec) MV PHT 85 msec MV Area PHT 2.58 cm2 Pulmonary Valve PV Vmax 0.83 (0.5-1.5 m/s) RVOT Peak Gr. 2.35 mmHg PV Peak Grad 2.8 mmHg RVOT Mean Gr. 1.30 mmHg PV Mean Grad 1.4 mmHg RVOT VTI 0.145 m PV VTI 0.165 m RVOT Vmax 0.77 m/s Tricuspid Valve TR Peak Grad 27.3 mmHg TR Vmax 2.62 m/s RA Pressure 3.00 mmHg RVSP (TR) 30.4 mmHg
[2020-07-21] MEDS: Normal Saline - Diluent 50 ML VIAL IV (00:21)
[2020-07-21] MEDS: Omnipaque 350 MG/ML 100 ML BTL IJ (00:21)
[2020-07-21] MEDS: Normal Saline Flush 10 ML SYR IVP (00:22)
--- NOTE | 2020-07-21 00:43 | DI.VRAD_ITS ---
PROCEDURE INFORMATION: Exam: CT Angiography Chest With Contrast Exam date and time: 07/20/2020 11:11 PM Age: 59 years old Clinical indication: Other: R/O pe, palpitations, port cath in place TECHNIQUE: Imaging protocol: Computed tomographic angiography of the chest with contrast. 3D rendering (Not supervised by radiologist): MIP and/or 3D reconstructed images were created by the technologist. Radiation optimization: All CT scans at this facility use at least one of these dose optimization techniques: automated exposure control; mA and/or kV adjustment per patient size (includes targeted exams where dose is matched to clinical indication); or iterative reconstruction. Contrast material: OMNIPAQUE 350; Contrast volume: 61 ml; Contrast route: IV; COMPARISON: CT CHEST PE CTA 02/23/2020 1:53 PM FINDINGS: Tubes, catheters and devices: Right chest wall medication port with central venous catheter. Pulmonary arteries: Normal. No pulmonary emboli. Aorta: Unremarkable. No aortic aneurysm. No aortic dissection. Lungs: Calcified granuloma in the lingula. Mild biapical pleuroparenchymal scarring. Dependent subsegmental atelectasis in the lung bases. Pleural spaces: Unremarkable. No pneumothorax. No pleural effusion. Heart: Unremarkable. No cardiomegaly. No pericardial effusion. Lymph nodes: Unremarkable. No enlarged lymph nodes. Liver: No intrahepatic contrast reflux. 2.6 cm posterior right lobe hepatic cyst. Bones/joints: Unremarkable. No acute fracture. Soft tissues: Unremarkable. IMPRESSION: 1. No pulmonary embolism. 2. Prior granulomatous infection. 3. Unchanged posterior right lobe hepatic cyst. Dictated and Authenticated by: Erick Hoover MD. Ordering:KRISTY Blank MD
--- NOTE | 2020-07-21 00:45 | RT.EKG_ITS ---
APPROVED REPORT Exam: Resting ECG Patient Location: E HR:78 bpm ECG Measurements Heart Rate 78 AXIS ND 138 P 54 QRSd 94 QRS 38 QT 392 T 46 QTc 448 Conclusion Sinus rhythm...normal P axis, V-rate 60- 99 Physician: No STEMI
[2020-07-21 01:49] LABS: Source Nasal/Nares
[2020-07-21 01:59] LABS: Troponin I < 0.05 ng/mL (<0.06)
--- NOTE | 2020-07-21 06:25 | HPE_ITS ---
Date of service: 07/21/20 Time of Service: 05:40 Assessment and Plan Assessment and plan (1) Heart palpitations: Status: Acute Assessment and plan: Patient has a well documented and assessed history of paroxysmal supraventricular tachycardia which accounts for much of her symptoms. However, it is unclear why her symtpoms are suddenly worse in the day prior to admission, and she also appears to be experiencing new symptoms of skipped heartbeats, causing significant distress. Given her history, I she was admitted for cardiac monitoring. I will also order an echocardiogram to reassess her to make sure it hasn't become critical. Given complex history I requested cardiology consult, I will not adjust medications myself. (2) SVT (supraventricular tachycardia): Status: Acute Assessment and plan: As above. No clear trigger for increase in symptoms. Continue diltiazem and metoprolol. (3) Aortic stenosis, severe: Status: Acute Assessment and plan: As above progressing could be trigger for symptoms, I think reassessing this is the most important aspect of evaluation. Echo ordered. (4) Hypertension: Status: None Assessment and plan: well controlled on current medications (5) Subclinical hypothyroidism: Status: Acute Assessment and plan: I doubt this is related but will recheck. (6) Ovarian cancer, bilateral: Status: Acute Assessment and plan: Has been in remission on niraparib, a PARP inhibitor. Had thrombocytopenia related to this in the past, but not currently (7) DVT prophylaxis: Status: Acute Assessment and plan: lovenox (8) Discharge planning issues: Status: Acute Assessment and plan: currently stable on medical floor on tele. Full code. History of Present Illness History of Present Illness Chief Complaint: heart skipping/racing Narrative: 59 yo F in remission from ovarian cancer on niraparib with history of moderate to severe aortic stenosis and well documented history of SVTs presented with worsening episodes of heart racing and stopping which began the morning prior to admission. She takes diltiazem 240mg and metoprolol succinate 25mg chronically and has prn short acting 30mg diltiazem that she took the day of admission, but it did not resolve her symptoms. She also tried doing valsava maneuvers prior to taking her prn but it didn't help. Prior to these episodes she had been feeling as good as she has felt in a long time. She has been active and exercis ing but nothing too vigorous. She has not been getting symtpoms such as chest pain or dizziness with activity. She has not changed her medication or diet recently. She is meditating more recently. She describes heart racing, which is not new for her. SHe also describes feeling that her heart is stopping for a few seconds, which feels aweful to her and is what really prompted her to come in. She feels unsteady during these episodes. SHe asked her neighbor who is a nurse to listen to her heart and she was concerned so she came into ED. She [place] [facility] [place], was doing well and had plan to repeat echo for in one year. To clarify, she does not have a history of atrial fibrillation, just SVTs. Her BP meds were adjusted at that point (stopped diuretic due to physiology). Anxiety has not been worse, though she is now back to work. Has been on bupropion for years. Review of Systems Constitutional Constitutional: Denies chills, Denies fever(s), Denies headache(s), Denies lethargy, Denies poor appetite, Denies weakness, Denies weight gain and Denies weight loss Eyes Eyes: Denies change in vision and Denies irritation ENT Ears, Nose, Mouth, and Throat: Denies vertigo, Denies headache(s), Denies nasal congestion, Denies nasal discharge and Denies sore throat Cardiovascular Cardiovascular: Denies chest pain, Denies leg edema, Denies dyspnea on exertion and Denies orthopnea Respiratory Respiratory: Denies cough, Denies excessive phlegm production, Denies dyspnea on exertion and Denies wheezing Gastrointestinal Gastrointestinal: Denies abdominal pain, Denies change in stool character, See es nausea and Denies vomiting Genitourinary Genitourinary: Denies hematuria, Denies dysuria and Denies urinary incontinence Musculoskeletal Musculoskeletal: Denies arthralgias Integumentary/Breasts Skin/Breast: Denies rash and Denies skin ulcer Neurologic Neurologic: Denies confusion, Denies vertigo, Denies headache(s), Denies sensory deficit and Denies weakness Psychiatric Psychiatric: Denies confusion, Denies mood swings and Denies panic attacks Endocrine Endocrine: Denies heat intolerance Hematologic/Lymphatic Hematologic/Lymphatic: Denies easy bleeding Allergic/Immunologic Allergic/Immunologic: Denies wheezing [facility] Medical History Aortic stenosis, severe [place] [facility] [place]rophic vaginitis (11/28/16) 10/2017 RX vaginal estrogen 10 mcg tablet 2x/week 02/2018 Rx for Estring. Depression (08/08/15) Long-term use of Wellbutrin, stopped and takes CBD oil. Has increased vitamin D supplements. Dyspareunia (12/02/14) Elevated cholesterol Hypertension Lichen sclerosus et atrophicus of the vulva Involving the periclitoral region and labia minora treated with clobetasol 0.05% with good results. 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 Tumor grade IIIB. 08/18/19 [place]health [facility] [place] Teaching Pelvic pain Onset 05/2019 left sided. Pulse irregularity Per palpation & puls-ox. Wearing HOLTOR MONITOR, so no EKG done.. considering marleny BECKHAM (01/28/20). Sick-euthyroid syndrome Possible Dx .. Palpitations with Hx changing TSH levels.. Surgical History Appendectomy (08/26/13) Dr. Rabago section x2 S/P total abdominal hysterectomy and bilateral salpingo-oophorectomy (07/20/19) bilateral pelvic and paraaortic lymphadenectomy, infracolic omentectomy, rectosigmoid resection and reanastomosis Family History Mother Personal history of malignant neoplasm cervical Father No problems noted. 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 [employer] What type of physical activity do you participate in: swimming and additional Details: up and down stairs at work Frequency: 5-6 times per week Do you feel safe at home: Yes Do you feel safe in your relationship?: Yes Female Reproductive History Menstrual control method: none Menopause type: natural Date of menopause: 04/21/10 (approximately 50yo) History History 2 Para Hx # Term Pregnancies 2 Multiple births Hx # Pregnancies 0 Ectopic pregnancies 0 AB induced Hx Number of Living Children AB spontaneous Meds Home Medications and Allergies Allergies Allergy/AdvReac Type Severity Reaction Status Date / Time penicillin V Allergy Severe Verified 02/23/20 13:21 paroxetine Allergy Intermediate Verified 02/23/20 13:21 paclitaxel [From Taxol] AdvReac Intermediate Other (See Verified 02/23/20 13:21 Comment) sertraline AdvReac Intermediate Verified 02/23/20 13:21 venlafaxine AdvReac Intermediate Verified 02/23/20 13:21 Home Medications Medication Instructions Recorded Confirmed Type prochlorperazine maleate 10 mg 10 mg PO Q6H PRN 08/19/19 07/21/20 History tablet bupropion HCl 300 mg 24 hr tablet, 300 mg PO QAM #90 tab 09/17/19 07/21/20 Rx extended release diltiazem HCl 30 mg tablet 30 mg PO .COMPLEX PRN 09/21/19 07/21/20 History pyridoxine (vitamin B6) 100 mg 100 mg PO DAILY tab 09/21/19 07/21/20 History tablet niraparib 100 mg capsule 100 mg PO HS cap 04/03/20 07/21/20 History diltiazem HCl 240 mg 240 mg PO DAILY 05/11/20 07/21/20 History capsule,extended release 24 hr metoprolol succinate 25 mg 25 mg PO DAILY 05/11/20 07/21/20 History tablet,extended release 24 hr atorvastatin 10 mg tablet 10 mg PO DAILY #90 tab 05/24/20 07/21/20 Rx Exam Narrative Exam Narrative: GEN: Alert and oriented, pleasent and cooperative, gives linear history. No acute distress at rest. HEENT: Head atraumatic. Conjunctiva clear, no icterus. PEERL, EOMI. no rhinorrhea. MMM, OP benign. Neck is supple with no masses or lymphadenopathy, trachea midline LUNGS: CTAB with normal effort CV: RRR with 2-3/6 systolic murmur loudest in upper chest radiating to neck. no gallops, or rubs. Carotid pulse strong susan. ABD: +BS, soft, NT/ND EXT: no cyanosis, clubbing, or edema. legs not tender MSK: No joint redness or swelling NEURO: CN 2-12 grossly intact. Normal movement of 4 extremities. Normal spe ech and coordination SKIN: No rashs or open wounds. PSYCH: normal mood and affect Results Imaging CT scan - chest: report reviewed (no masses or PE) EKG: report reviewed (EKG x 3, sinus rhythm each time, no change in [address] ST depression) and image reviewed Labs Result diagrams: 07/20/20 22:50 07/20/20 22:50 Labs: Laboratory Results - last 24 hr 07/20/20 07/20/20 07/21/20 22:50 22:50 01:30 WBC 6.45 RBC 3.71 L Hgb 14.0 Hct 39.4 MCV 106.2 H MCH 37.7 H MCHC 35.5 RDW 12.0 Plt Count 188 MPV 8.9 Immature Gran % 0.2 Neutrophils % 51.3 Lymphocytes % 32.9 Monocytes % 10.5 Eosinophils % 4.2 Basophils % 0.9 Nucleated RBC % 0 Absolute Neutrophils 3.31 Absolute Lymphocytes 2.12 Absolute Monocytes 0.68 Absolute Eosinophils 0.27 Absolute Basophils 0.06 RBC Morphology See below Macrocytosis 1+ Sodium 141 Potassium 3.9 Chloride 104 Carbon Dioxide 24.8 Anion Gap 12.2 H BUN 16 Creatinine 0.9 Estimated GFR/1.73 m2 >= 60.00 Glucose 105 Calcium 9.9 Magnesium 1.8 Total Bilirubin 0.6 AST 17 ALT 31 Alkaline Phosphatase 106 Troponin I < 0.05 < 0.05 Total Protein 7.9 Albumin 4.1 COVID-19 Source 07/21/20 01:30 WBC RBC Hgb Hct MCV MCH MCHC RDW Plt Count MPV Immature Gran % Neutrophils % Lymphocytes % Monocytes % Eosinophils % Basophils % Nucleated RBC % Absolute Neutrophils Absolute Lymphocytes Absolute Monocytes Absolute Eosinophils Absolute Basophils RBC Morphology Macrocytosis Sodium Potassium Chloride Carbon Dioxide Anion Gap BUN Creatinine Estimated GFR/1.73 m2 Glucose Calcium Magnesium Total Bilirubin AST ALT Alkaline Phosphatase Troponin I Total Protein Albumin COVID-19 Source Nasal/nares Last Vital Signs Temp 36.7 C 07/21/20 03:57 Pulse 82 07/21/20 04:16 Resp 17 07/21/20 03:57 BP 109/74 07/21/20 03:57 Pulse Ox 100 07/21/20 03:57 COVID-19 Screening Have you, or household traveled for leisure in last 14 days?: No Had IN PERSON contact w/suspected or confirmed C-19 person: No
[2020-07-21 07:32] LABS: TSH (W/Ref FT4) 3.58 uIU/mL (0.36-3.74)
[2020-07-21] MEDS: Atorvastatin 10 MG TAB PO (08:12)
[2020-07-21] MEDS: Metoprolol CR 25 MG TABCR PO (08:13)
[2020-07-21] MEDS: buPROPion-XL 150 MG TABCR 300 MG PO (08:13)
[2020-07-21] MEDS: Enoxaparin 40 MG/0.4 ML SYR SC (08:13)
[2020-07-21] MEDS: dilTIAZem CD 120 MG CAPCR 240 MG PO (08:13)
--- NOTE | 2020-07-21 08:56 | CCONE_ITS ---
Date of service: 07/21/20 Time of Service: 08:56 Assessment and Plan Assessment and plan (1) Heart palpitations: Status: Acute (2) Aortic stenosis, severe: Status: Acute (3) SVT (supraventricular tachycardia): Status: Acute Assessment and plan: 1. Aortic stenosis: Moderate to severe with last SUDHAKAR 1.3 cm?. Mean gradient was in the high 30s. This last echocardiogram was done just 6 months ago. I think it is reasonable to repeat the echocardiogram here though I do not think her aortic stenosis is the main cause of her symptoms, when her heart is racing that could lead to decreased preload and worsening symptoms especially in the setting of mild LVOT obstruction due to her basal septal hypertrophy. ?Echocardiogram as above ?Encourage good hydration ?Continue both calcium channel jessa and beta-jessa given her difficult to control SVT. Would avoid any significant afterload reduction 2. History of SVT: She has been monitored on telemetry which is showed a few brief episodes of SVT but no other significant worrisome arrhythmias. ?Continue dual AV clark blocking agents. It sounds as though she had some symptoms with higher doses of metoprolol so I do not think we can push that much further at this point. ?I discussed with her briefly the option of antiarrhythmic medicine versus ablation after being seen by EP. She is favoring ablation as she says she is already taking a lot of medications and does not want to add something that could potentially have side effects as well. I will set her up to see electrophysiology locally at the next available appointment. 3. Mild LVOT obstruction due to basal septal hypertrophy. She has a little bit of systolic anterior motion of her mitral valve as well. We will repeat echocardiogram. Encouraged maneuvers to keep her preload up including hydration and limiting episodes of tachycardia. ?Echocardiogram as above ?Continue dual AV clark blockade I offered her the option to see me locally as well and she thinks she would like to do that as it is more convenient than going down to [facility]. History of Present Illness History of Present Illness Chief Complaint: heart racing Narrative: Ms. Luna is a 59-year-old female with past medical history significant for moderate to severe aortic stenosis (echo in 01/2020:SUDHAKAR of 1.3 with a mean gradient of 33 mmHg), mild LVOT obstruction due to basal septal hypertrophy and JERRY, as well as SVT who presented yesterday with feelings of heart racing heart pauses. The patient is followed at [facility] for her cardiac conditions and most recently saw Dr. Franklyn Toure in [place] [facility] in January 2020. Since that time she is also noted worsening fatigue and question whether or not this had to do with thyroid or metoprolol. Her loader machine did not feel this was due to her aortic stenosis. She had a Holter monitor done at [facility] which showed 15 brief episodes of SVT over a period of 48 hours. She has had her diltiazem uptitrated as well as given a as needed dose. She is also had increased doses of metoprolol but has not tolerated them well and is settled on 25 mg daily. Despite these increased doses she says she still has periods of her heart racing quite often. They usually abort on their own or with vagal maneuvers. The patient reports that yesterday she had a number of episodes of feeling like her heart was racing which is not a new symptom for her. However she did notice when she felt that her heart was stopping which made her feel quite symptomatic and brought her to the emergency room. This morning she feels back to her normal self though did notice some heart racing yesterday. She says she is quite frustrated with the fact that she cannot control this tachycardia. That said she has been feeling well as her ovarian cancer is now in remission and she has been exercising more. Review of Systems All systems reviewed & are unremarkable except as noted in HPI and below PFSH Medical History Aortic stenosis, severe [place] [facility] [place] Atrophic vaginitis (11/28/16) 10/2017 RX vaginal estrogen 10 mcg tablet 2x/week 02/2018 Rx for Estring. Depression (08/08/15) Long-term use of Wellbutrin, stopped and takes CBD oil. Has increased vitamin D supplements. Dyspareunia (12/02/14) Elevated cholesterol Hypertension Lichen sclerosus et atrophicus of the vulva Involving the periclitoral region and labia minora treated with clobetasol 0.05% with good results. 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 Tumor grade IIIB. 08/18/19 [place] [facility] [place]o Teaching Pelvic pain Onset 05/2019 left sided. Pulse irregularity Per palpation & puls-ox. Wearing HOLTOR MONITOR, so no EKG done.. considering marleny BECKHAM (01/28/20). Sick-euthyroid syndrome Possible Dx .. Palpitations with Hx changing TSH levels.. Surgical History Appendectomy (08/26/13) Dr. Rabago section x2 S/P total abdominal hysterectomy and bilateral salpingo-oophorectomy (07/20/19) bilateral pelvic and paraaortic lymphadenectomy, infracolic omentectomy, rectosigmoid resection and reanastomosis Family History Mother Personal history of malignant neoplasm cervical Father No problems noted. 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 What type of physical activity do you participate in: swimming and additional Details: up and down stairs at work Frequency: 5-6 times per week Do you feel safe at home: Yes Do you feel safe in your relationship?: Yes Female Reproductive History Menstrual control method: none Menopause type: natural Date of menopause: 04/21/10 (approximately 50yo) History History 2 Para Hx # Term Pregnancies 2 Multiple births Hx # Pregnancies 0 Ectopic pregnancies 0 AB induced Hx Number of Living Children AB spontaneous Exam Const General: comfortable and no acute distress HENMT Head: normocephalic and atraumatic Eyes General: appearance normal, both eyes and all related structures Resp Effort & Inspection: normal respiratory effort Auscultation: clear to auscultation bilaterally Cardio Jugular venous pressure: no JVD Palpation: normal PMI Rate: regular rate Rhythm: regular rhythm Heart Sounds: S1 normal and murmur systolic mid and II/ GI Palpation: soft Auscultation: normoactive bowel sounds Skin General skin exam: no rashes or lesions noted Extrem General: normal to inspection and no clubbing, cyanosis or edema Psych Appearance: grossly normal Results Last Vital Signs Temp 36.5 C 07/21/20 08:01 Pulse 82 07/21/20 08:01 Resp 18 07/21/20 08:01 BP 119/82 07/21/20 08:01 Pulse Ox 98 07/21/20 08:01 Labs Result diagrams: 07/20/20 22:50 07/20/20 22:50 Labs: Laboratory Results - last 24 hr 07/20/20 07/20/20 07/21/20 22:50 22:50 01:30 WBC 6.45 RBC 3.71 L Hgb 14.0 Hct 39.4 MCV 106.2 H MCH 37.7 H MCHC 35.5 RDW 12.0 Plt Count 188 MPV 8.9 Immature Gran % 0.2 Neutrophils % 51.3 Lymphocytes % 32.9 Monocytes % 10.5 Eosinophils % 4.2 Basophils % 0.9 Nucleated RBC % 0 Absolute Neutrophils 3.31 Absolute Lymphocytes 2.12 Absolute Monocytes 0.68 Absolute Eosinophils 0.27 Absolute Basophils 0.06 RBC Morphology See below Macrocytosis 1+ Sodium 141 Potassium 3.9 Chloride 104 Carbon Dioxide 24.8 Anion Gap 12.2 H BUN 16 Creatinine 0.9 Estimated GFR/1.73 m2 >= 60.00 Glucose 105 Calcium 9.9 Magnesium 1.8 Total Bilirubin 0.6 AST 17 ALT 31 Alkaline Phosphatase 106 Troponin I < 0.05 < 0.05 Total Protein 7.9 Albumin 4.1 TSH COVID-19 Source 07/21/20 07/21/20 01:30 01:30 WBC RBC Hgb Hct MCV MCH MCHC RDW Plt Count MPV Immature Gran % Neutrophils % Lymphocytes % Monocytes % Eosinophils % Basophils % Nucleated RBC % Absolute Neutrophils Absolute Lymphocytes Absolute Monocytes Absolute Eosinophils Absolute Basophils RBC Morphology Macrocytosis Sodium Potassium Chloride Carbon Dioxide Anion Gap BUN Creatinine Estimated GFR/1.73 m2 Glucose Calcium Magnesium Total Bilirubin AST ALT Alkaline Phosphatase Troponin I Total Protein Albumin TSH 3.58 COVID-19 Source Nasal/nares
[2020-07-21 10:06] LABS: COVID-19 PCR Negative (Negative)
--- NOTE | 2020-07-21 13:06 | PDOC.CMIN ---
- If Service Date Differs Date of service: 07/21/20 Time of Service: 13:06 Care Management Initial Assess REASON FOR HOSPITALIZATION:: Heart Palpitations PAST MEDICAL HISTORY/PAST SURGICAL HISTORY:: Medical History . Aortic stenosis, severe. Followed at [facility] [place]. Atrophic vaginitis (11/28/16). 10/2017 RX vaginal estrogen 10 mcg tablet 2x/week. 02/2018 Rx for Estring. Depression (08/08/15). Long-term use of Wellbutrin, stopped and takes CBD oil. Has increased vitamin D supplements. Dyspareunia (12/02/14). Elevated cholesterol. Hypertension. Lichen sclerosus et atrophicus of the vulva. Involving the periclitoral region and labia minora treated with clobetasol 0.05% with good results. Ovarian cancer, bilateral. 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 Tumor grade IIIB. 08/18/19 Telehealth [facility] for Chemo Teaching. Pelvic pain. Onset 05/2019 left sided. Pulse irregularity. Per palpation & puls-ox. Wearing HOLTOR MONITOR, so no EKG done.. considering BB, ik (01/28/20). Sick-euthyroid syndrome. Possible Dx .. Palpitations with Hx changing TSH levels.. Surgical History . Appendectomy (08/26/13). Dr. Rabago. section. x2. S/P total abdominal hysterectomy and bilateral salpingo-oophorectomy (07/20/19). 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 She is independent in the community. CURRENT FUNCTIONAL STATUS:: Gabi was sitting up in bed when CM met with her. She was preparing for discharge at the time. Gabi denied the need for services. ADVANCE DIRECTIVES:: none on file Has patient been provided with info about the portal/API?: Yes Did the patient sign up for the portal?: Yes (previously) CODE STATUS:: Full Code INSURANCE COVERAGE / FINANCIAL ISSUES:: [facility] CURRENT HOME/COMMUNITY SERVICES/EQUIPMENT:: none PRIMARY CARE PHYSICIAN:: Evelyne Hunt POTENTIAL DISCHARGE NEEDS:: Follow up with PCP and plan of care PATIENT/FAMILY EDUCATION NEEDS:: Review of discharge plan, follow up plan, limitations, Ask Me Three TRANSPORTATION:: via private vehicle with family PLAN:: Gabi will be discharged home with no new services. She will follow up with his community providers and plan of care and transport with family.
--- NOTE | 2020-07-21 14:17 | W.PM.DS.N ---
Date of service: 07/21/20 Time of Service: 14:17 DS: Diagnosis Discharge Diagnosis (1) Heart palpitations: Start date: 07/21/20 Start time: 14:18 Status: Acute Asessment and Plan: She did have 2 bouts of SVT overnight, no CP or pressure. She has been in SR with Regular rate all day. She is agreeable to increase in diltiazem. Will increase to 360 mg PO daily. She has appt with cardiology next week. Will order 30 day event recorder She is interested in ablation (2) Aortic stenosis, severe: Start date: 07/21/20 Start time: 14:31 Status: Acute Asessment and Plan: Conclusion Left Ventricle : The left ventricle is normal size. The left ventricular systolic function is normal. The left ventricular ejection fraction is within the normal range. There is normal left ventricular wall thickness with basal septal hypertrophy. Echo findings are consistent with a mild left ventricular outflow tract obstruction. There is normal LV segmental wall motion. The left ventricular diastolic function is normal. LVEF is 60-65%. Right Ventricle : The right ventricle is normal size. The right ventricular systolic function is normal. The RVSP is 30.4mmHg. Aortic Valve : Severe aortic valve sclerosis. Number of aortic valve leaflets could not be assessed. Moderate aortic stenosis. Peak aortic valve gradient is 50.2mmHg. Highest mean aortic valve gradient is 30mmHg. Calculated SUDHAKAR by the continuity equation is 1.06cm2. Moderate aortic regurgitation. Mitral Valve : The mitral valve is normal in structure. Mild mitral regurgitation. No evidence of mitral valve stenosis. Great Vessels : The aortic root is normal in size. Ascending aorta is not well visualized. Aortic arch is normal in caliber. IVC is normal in size and collapses >50% with inspiration. Compared to study at [facility] from January 2020, there is no significant change. (3) SVT (supraventricular tachycardia): Start date: 07/21/20 Start time: 14:31 Status: Acute Asessment and Plan: Will increase dilt to 360 as above above case discussed with Dr. Guadarrama. Discharge Plan Disposition Patient Disposition: HOME Condition: Stable Discharge Details Reason For Visit: PALPITATIONS Admit Date/Time: 07/21/20 00:57 Admit Provider: Cristóbal Zendejas Attending Provider: Cristóbal Zendejas [facility] Course: 59 yo F in remission from ovarian cancer on niraparib with history of moderate to severe aortic stenosis and well documented history of SVTs presented with worsening episodes of heart racing and stopping which began the morning prior to admission. She takes diltiazem 240mg and metoprolol succinate 25mg chronically and has prn short acting 30mg diltiazem that she took the day of admission, but it did not resolve her symptoms. She also tried doing valsava maneuvers prior to taking her prn but it didn't help. Prior to these episodes she had been feeling as good as she has felt in a long time. She has been active and exercising but nothing too vigorous. She has not been getting symtpoms such as chest pain or dizziness with activity. She has not changed her medication or diet recently. She is meditating more recently. She describes heart racing, which is not new for her. She also describes feeling that her heart is stopping for a few seconds, which feels aweful to her and is what really prompted her to come in. She feels unsteady during these episodes. She asked her neighbor who is a nurse to listen to her heart and she was concerned so she came into ED. She last saw cardiology 02/19/20 at [facility] with echo, was doing well and had plan to repeat echo for in one year. To clarify, she does not have a history of atrial fibrillation, just SVTs. Her BP meds were adjusted at that point (stopped diuretic due to physiology). Anxiety has not been worse, though she is now back to work. Has been on bupropion for years. Admitted to [facility] for further management. Over night she did have 2 episodes of SVT, no requiring any intervention. She denies CP or pressure. Repeat echo with EF 60-65% EF. RVSP 30.4, mild left vent outflow tract obstruction. Severe aortic valve sclerosis. Moderate aortic stenosis. Cardiology consulted, encourage hydration, she would like to be evaluated for an ablation by EP vs taking medication. She has an appt with cardiology on the to further discuss this until then we will increase her dilt to 360 mg daily. She is being discharged home. She feels good. She will have a 30 day event recorder. Follow up appt next week and push fluids. She denies CP, SOB, N/v/d Home Meds and New Rx's Prescriptions: New diltiazem HCl 120 mg Capsule,Extended Release 24hr 360 mg PO DAILY Qty: 30 RF: 0 Continued prochlorperazine maleate [Compazine] 10 mg tablet 10 mg PO Q6H PRNRF: 0 bupropion HCl [Wellbutrin XL] 300 mg tablet extended release 24 hr 300 mg PO QAM Qty: 90 RF: 3 pyridoxine (vitamin B6) 100 mg tablet 100 mg PO DAILY RF: 0 Zejula 100 mg capsule 100 mg PO HS RF: 0 metoprolol succinate 25 mg tablet extended release 24 hr 25 mg PO DAILY RF: 0 atorvastatin 10 mg tablet 10 mg PO DAILY Qty: 90 RF: 3 Discontinued diltiazem HCl 30 mg tablet 30 mg PO .COMPLEX PRNRF: 0 diltiazem HCl 240 mg capsule,extended release 24hr 240 mg PO DAILY RF: 0 Discharge Instructions Instructions: Supraventricular Tachycardia (DC), Valsalva Maneuver (ED), Cardiac Ablation (DC) Additional Instructions: Increase fluid intake, drink more Your diltizem dosing has been increased to 360 mg daily. Stop taking the 30 mg as needed dosing Follow up with Dr. Gibson on 06/25 Continue with the equipment monitor phototypesetting for 30 days Referrals: Dwain Gibson MD [MD CONSULTING PHYSICIAN] - 07/26/20 3:00 pm (Appointment at [facility]) Erick Subramanian MD [ CONSULTING PHYSICIAN] - 09/01/20 10:40 am (Appt at [facility]) Activity:: Activity as Tolerated Equipment/Supplies:: cardiac event recorder Diet:: As Tolerated Discharge Orders Discharge Orders: Discharge Order (Routine); Ordered 07/21/20 Ordered By: Akanksha Frye DS: Summary Time Spent with Patient providing and/or coordinating discharge services: Greater than 30 minutes (approx 40 mins) Status at Discharge Functional status at discharge: independent ambulation Overall status at discharge: patient is back to baseline Mental Status: mental status grossly normal Speech and Movement: speech and movement normal Mood: congruent mood Affect: normal affect Exam Narrative Exam Narrative: GEN: Alert and oriented, pleasent and cooperative, gives linear history. No acute distress at rest. HEENT: Head atraumatic. Conjunctiva clear, no icterus. PEERL, EOMI. no rhinorrhea. MMM, OP benign. Neck is supple with no masses or lymphadenopathy, trachea midline LUNGS: CTAB with normal effort CV: RRR with 2-3/6 systolic murmur loudest in upper chest radiating to neck. no gallops, or rubs. Carotid pulse strong susan. ABD: +BS, soft, NT/ND EXT: no cyanosis, clubbing, or edema. legs not tender MSK: No joint redness or swelling NEURO: CN 2-12 grossly intact. Normal movement of 4 extremities. Normal speech and coordination SKIN: No rashs or open wounds. PSYCH: normal mood and affect Psych Mental Status: mental status grossly normal Speech and Movement: speech and movement normal Mood: congruent mood Affect: normal affect DS: Data Vitals/I&O Vitals and I&O: Vital Signs Temperature 36.3 C L 07/21/20 11:37 Temperature Source Tympanic 07/21/20 11:37 Pulse 73 07/21/20 11:37 Pulse Rhythm Regular 07/21/20 03:57 Pulse 71 07/21/20 03:20 Respiratory Rate 18 07/21/20 11:37 Respiratory Effort Non-Labored 07/21/20 03:57 Respiratory Depth Normal 07/21/20 03:57 Respiratory Pattern Normal 07/21/20 03:57 Blood Pressure 124/84 07/21/20 11:37 Blood Pressure Mean 80 07/21/20 03:16 Pulse Oximetry 98 07/21/20 11:37 Oxygen Delivery Method Room Air 07/21/20 11:37 Oxygen Flow Rate 0 07/21/20 11:37 Pain Level 0 07/21/20 12:15 Comment 07/21/20 12:15 Intake & Output 07/20/20 07/21/20 07/21/20 23:59 11:59 23:59 Intake Total 173 / 1910 180 / 1910 Balance [id number] 180 / 1910 Weight 62.8 kg 60.2 kg Intake: IV 1000 / 1000 Oral 730 / 910 180 / 910 Other: Urine Color Yellow Urine Appearance Clear Urine Odor Normal Comment Void x1 in the toilet. Voiding Methods Toilet Data Completed and Pending Completed studies during hospitalization [Text1]: Exam(s) a CT:CT chest PE CTA EXAM: CT CHEST PE CTA CLINICAL HISTORY: R/O PE, Palpitations, Port cath in place. TECHNIQUE: Imaging Protocol: Axial CT angiography was performed with multi-slice acquisition and multi-planar and/or 3D reconstructions. CONTRAST MATERIAL: Intravenous: Omnipaque 350 Contrast volume:structured data in ml COMPARISON: CT CT CHEST PE CTA from 02/23/2020 FINDINGS: CT angiography of the chest was performed with intravenous infusion of 61 cc of Omnipaque 350. The lungs are predominantly clear with an incidental left upper lobe calcified pulmonary granuloma noted.. No pleural effusion. Tracheobronchial tree appears intact. No evidence of pulmonary embolic disease. Thoracic aorta is of normal diameter, no thoracic aortic aneurysm or dissection, major branch vessels appear intact. No mediastinal or hilar adenopathy. Images obtained through the upper abdomen show unremarkable appearance of the visualized portions of the liver with a previously noted incidental hepatic cyst. Visualized portions of spleen pancreas adrenals and kidneys are unremarkable., IMPRESSION: Negative CT angiogram of the chest. No evidence of pulmonary embolic disease. EXAM: Comprehensive 2D, Doppler, and color-flow Echocardiogram Patient Location: In-Patient Clinical Staff Anesthesiologist: Harper Garcia RDCS (AE) Indications: Aortic Stenosis, New Arrhythmia, presycope Other Information Study Quality: Good Conclusion Left Ventricle : The left ventricle is normal size. The left ventricular systolic function is normal. The left ventricular ejection fraction is within the normal range. There is normal left ventricular wall thickness with basal septal hypertrophy. Echo findings are consistent with a mild left ventricular outflow tract obstruction. There is normal LV segmental wall motion. The left ventricular diastolic function is normal. LVEF is 60-65%. Right Ventricle : The right ventricle is normal size. The right ventricular systolic function is normal. The RVSP is 30.4mmHg. Aortic Valve : Severe aortic valve sclerosis. Number of aortic valve leaflets could not be assessed. Moderate aortic stenosis. Peak aortic valve gradient is 50.2mmHg. Highest mean aortic valve gradient is 30mmHg. Calculated SUDHAKAR by the continuity equation is 1.06cm2. Moderate aortic regurgitation. Mitral Valve : The mitral valve is normal in structure. Mild mitral regurgitation. No evidence of mitral valve stenosis. Great Vessels : The aortic root is normal in size. Ascending aorta is not well visualized. Aortic arch is normal in caliber. IVC is normal in size and collapses >50% with inspiration. Compared to study at [facility] from January 2020, there is no significant change. Wall motion Labs on day of discharge: Labs from last 24 hours 07/21/20 07/21/20 07/21/20 01:30 01:30 01:30 WBC RBC Hgb Hct MCV MCH MCHC RDW Plt Count MPV Immature Gran % Neutrophils % Lymphocytes % Monocytes % Eosinophils % Basophils % Nucleated RBC % Absolute Neutrophils Absolute Lymphocytes Absolute Monocytes Absolute Eosinophils Absolute Basophils RBC Morphology Macrocytosis Sodium Potassium Chloride Carbon Dioxide Anion Gap BUN Creatinine Estimated GFR/1.73 m2 Glucose Calcium Magnesium Total Bilirubin AST ALT Alkaline Phosphatase Troponin I < 0.05 Total Protein Albumin TSH 3.58 COVID-19 Source Nasal/nares SARS-CoV-2 (PCR) Negative 07/20/20 07/20/20 22:50 22:50 WBC 6.45 RBC 3.71 L Hgb 14.0 Hct 39.4 MCV 106.2 H MCH 37.7 H MCHC 35.5 RDW 12.0 Plt Count 188 MPV 8.9 Immature Gran % 0.2 Neutrophils % 51.3 Lymphocytes % 32.9 Monocytes % 10.5 Eosinophils % 4.2 Basophils % 0.9 Nucleated RBC % 0 Absolute Neutrophils 3.31 Absolute Lymphocytes 2.12 Absolute Monocytes 0.68 Absolute Eosinophils 0.27 Absolute Basophils 0.06 RBC Morphology See below Macrocytosis 1+ Sodium 141 Potassium 3.9 Chloride 104 Carbon Dioxide 24.8 Anion Gap 12.2 H BUN 16 Creatinine 0.9 Estimated GFR/1.73 m2 >= 60.00 Glucose 105 Calcium 9.9 Magnesium 1.8 Total Bilirubin 0.6 AST 17 ALT 31 Alkaline Phosphatase 106 Troponin I < 0.05 Total Protein 7.9 Albumin 4.1 TSH COVID-19 Source SARS-CoV-2 (PCR) [facility] Medical History Aortic stenosis, severe Followed at [facility] Atrophic vaginitis (11/28/16) 10/2017 RX vaginal estrogen 10 mcg tablet 2x/week 02/2018 Rx for Estring. Depression (08/08/15) Long-term use of Wellbutrin, stopped and takes CBD oil. Has increased vitamin D supplements. Dyspareunia (12/02/14) Elevated cholesterol Hypertension Lichen sclerosus et atrophicus of the vulva Involving the periclitoral region and labia minora treated with clobetasol 0.05% with good results. 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 Tumor grade IIIB. 08/18/19 Telehealth [facility] for Chemo Teaching Pelvic pain Onset 05/2019 left sided. Pulse irregularity Per palpation & puls-ox. Wearing HOLTOR MONITOR, so no EKG done.. considering [place] ik (01/28/20). Sick-euthyroid syndrome Possible Dx .. Palpitations with Hx changing TSH levels.. Surgical History Appendectomy (08/26/13) Dr. Rabago section x2 S/P total abdominal hysterectomy and bilateral salpingo-oophorectomy (07/20/19) bilateral pelvic and paraaortic lymphadenectomy, infracolic omentectomy, rectosigmoid resection and reanastomosis Family History Mother Personal history of malignant neoplasm cervical Father No problems noted. 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
[2020-07-21] MEDS: dilTIAZem CD 120 MG CAPCR PO (15:11)
--- NOTE | 2020-08-11 12:34 | W.CARDEVENT ---
Date of service: 08/11/20 Time of Service: 12:35 Cardiac Event Recorder Referring Provider:: Cristóbal Zenedjas Indications:: Palpitations Cardiac Event Note: This event monitor recorded for a total period of 19 days, indications being palpitations and supraventricular tachycardia The rhythm throughout was sinus. Average heart rate was 70. Minimum was 57 There was no atrial fibrillation. There were no pauses greater than 3 seconds. There was no high-grade AV block Rare PVCs were noted
== END 2020-07-21 15:52 | disposition home or self-care (01) | DRG 310 ==
LOC: ER 07-21 01:08 → MS 07-21 04:16
PROVIDERS: Admitting Provider Family Medicine; Emergency Provider Registered Nurse Emergency; PCP Nurse Practitioner; Visit Provider Family Medicine
DX: I47.1 Supraventricular tachycardia (principal); I35.0 Nonrheumatic aortic (valve) stenosis; I10 Essential (primary) hypertension; Z85.43 Personal history of malignant neoplasm of ovary; Z79.899 Other long term (current) drug therapy; F32.9 Major depressive disorder, single episode, unspecified; E78.00 Pure hypercholesterolemia, unspecified; E07.81 Sick-euthyroid syndrome
CPT/HCPCS: 36415; 71275; 80053; 87635; 93005; 93270; 96360; 96361; 99222; 99239; 99254; 99285; J1650; 83735; 84443; 84484; 85025; 93010; 93306; J3490

== ENCOUNTER 2020-07-31 02:52 | Outpatient (RCR) | payer OTHER, SELFPAY ==
[2020-07-31] MEDS: Normal Saline Flush 10 ML SYR IVP (12:31)
[2020-07-31] MEDS: Heparin 500 UNITS/5 ML SYRINGE IV (12:32)
[2020-07-31 12:43] LABS: Abs Immature Grans 0.02 10^3/uL (0.0-0.06); Absolute Basophil Count 0.07 10^3/uL (0.0-0.2); Absolute Eosinophil Count 0.22 10^3/uL (0.0-0.7); Absolute Lymphocyte Count 1.45 10^3/uL (1.2-3.4); Absolute Monocyte Count 0.53 10^3/uL (0.1-0.8); Absolute Neutrophil Count 3.51 10^3/uL (1.2-6.7); Basophils % 1.2; Eosinophils % 3.8; HCT 35.8 % (36.0-46.0); HGB 12.8 g/dL (11.2-15.7); Immature Grans % 0.3; MCH 38.1 pg (27.0-33.0); MCHC 35.8 % (32.0-36.0); MCV 106.5 fL (80-95); MPV 8.9 fL (8.0-11.0); Monocytes % 9.1; Neutrophils % 60.6; Nucleated RBC 0 %; Platelet Count 207 10^3/uL (130-400); RBC 3.36 10^6/uL (3.93-5.22); RDW-SD 47.1 fL
[2020-07-31 12:56] LABS: ALT 28 U/L (14-59); AST 18 U/L (15-37); Albumin 4.3 g/dL (3.4-5.0); Alkaline Phosphatase 95 U/L (46-116); Anion Gap 9.8 mmol/L (3-11); BUN 13 mg/dL (7-18); Bilirubin, Total 0.8 mg/dL (0.2-1.0); CO2 27.2 mmol/L (21.0-32.0); CREATININE 0.8 mg/dL (0.55-1.02); Chloride 101 mmol/L (98-107); Glucose 128 mg/dL (74-106); Potassium 3.8 mmol/L (3.5-5.1); Sodium 138 mmol/L (136-145); Total Protein 7.6 g/dL (6.4-8.2)
[2020-08-01 09:29] LABS: CA 125 3 U/mL (<30)
== END 2020-08-18 23:59 | disposition home or self-care (01) ==
LOC: INF 02:52
PROVIDERS: PCP Nurse Practitioner; Visit Provider Obstetrics & Gynecology Gynecologic Oncology
DX: C56.9 Malignant neoplasm of unspecified ovary (principal); Z45.2 Encounter for adjustment and management of vascular access device
CPT/HCPCS: 36591; 80053; 86304; 85025

== ENCOUNTER 2020-09-12 02:53 | Outpatient (RCR) | payer OTHER, SELFPAY ==
[2020-09-12] MEDS: Normal Saline Flush 10 ML SYR IVP (14:34)
[2020-09-12] MEDS: Heparin 500 UNITS/5 ML SYRINGE IV (14:35)
[2020-09-12 14:45] LABS: Abs Immature Grans 0.02 10^3/uL (0.0-0.06); Absolute Basophil Count 0.08 10^3/uL (0.0-0.2); Absolute Eosinophil Count 0.27 10^3/uL (0.0-0.7); Absolute Lymphocyte Count 1.78 10^3/uL (1.2-3.4); Absolute Monocyte Count 0.72 10^3/uL (0.1-0.8); Absolute Neutrophil Count 4.18 10^3/uL (1.2-6.7); Basophils % 1.1; Eosinophils % 3.8; HCT 34.9 % (36.0-46.0); HGB 12.2 g/dL (11.2-15.7); Immature Grans % 0.3; Lymphocytes % 25.2; MCH 37.4 pg (27.0-33.0); MCV 107.1 fL (80-95); MPV 8.9 fL (8.0-11.0); Monocytes % 10.2; Neutrophils % 59.4; Nucleated RBC 0 %; Platelet Count 208 10^3/uL (130-400); RBC 3.26 10^6/uL (3.93-5.22); RDW 12.2 % (11.7-14.6); RDW-SD 48.6 fL; WBC 7.05 10^3/uL (4.4-10.8)
[2020-09-12 15:02] LABS: ALT 26 U/L (14-59); AST 21 U/L (15-37); Alkaline Phosphatase 96 U/L (46-116); Anion Gap 9.3 mmol/L (3-11); BUN 17 mg/dL (7-18); Bilirubin, Total 0.8 mg/dL (0.2-1.0); CO2 26.7 mmol/L (21.0-32.0); Calcium 9.1 mg/dL (8.5-10.1); Chloride 100 mmol/L (98-107); Estimated GFR 56.75 (mL/min/1.73m2); Glucose 101 mg/dL (74-106); Sodium 136 mmol/L (136-145); Total Protein 7.2 g/dL (6.4-8.2)
[2020-09-13 10:16] LABS: CA 125 5 U/mL (<30)
== END 2020-09-18 23:59 | disposition home or self-care (01) ==
LOC: INF 02:53
PROVIDERS: PCP Nurse Practitioner; Visit Provider Obstetrics & Gynecology Gynecologic Oncology
DX: C56.9 Malignant neoplasm of unspecified ovary (principal); Z45.2 Encounter for adjustment and management of vascular access device
CPT/HCPCS: 36591; 80053; 86304; 85025

== ENCOUNTER 2020-10-26 03:02 | Outpatient (CLI) | payer OTHER, SELFPAY ==
[2020-10-26 11:20] LABS: Abs Immature Grans 0.01 10^3/uL (0.0-0.06); Absolute Basophil Count 0.07 10^3/uL (0.0-0.2); Absolute Eosinophil Count 0.21 10^3/uL (0.0-0.7); Absolute Lymphocyte Count 1.51 10^3/uL (1.2-3.4); Absolute Monocyte Count 0.54 10^3/uL (0.1-0.8); Basophils % 1.1; Eosinophils % 3.2; HCT 41.7 % (36.0-46.0); HGB 14.6 g/dL (11.2-15.7); Immature Grans % 0.2; Lymphocytes % 22.7; MCV 108.6 fL (80-95); MPV 8.8 fL (8.0-11.0); Monocytes % 8.1; Neutrophils % 64.7; Nucleated RBC 0 %; Platelet Count 229 10^3/uL (130-400); RBC 3.84 10^6/uL (3.93-5.22); RDW 12.3 % (11.7-14.6); RDW-SD 49.1 fL; WBC 6.64 10^3/uL (4.4-10.8)
[2020-10-26 12:16] LABS: ALT 34 U/L (14-59); AST 25 U/L (15-37); Albumin 4.5 g/dL (3.4-5.0); Alkaline Phosphatase 125 U/L (46-116); Anion Gap 11.7 mmol/L (3-11); BUN 17 mg/dL (7-18); CO2 26.3 mmol/L (21.0-32.0); CREATININE 0.8 mg/dL (0.55-1.02); Calcium 9.4 mg/dL (8.5-10.1); Chloride 99 mmol/L (98-107); Glucose 82 mg/dL (74-106); Potassium 4.1 mmol/L (3.5-5.1); Sodium 137 mmol/L (136-145); Total Protein 7.6 g/dL (6.4-8.2)
[2020-10-27 10:18] LABS: CA 125 7 U/mL (<30)
== END 2020-10-26 03:03 | disposition home or self-care (01) ==
LOC: LBO 03:03
PROVIDERS: PCP Nurse Practitioner; Visit Provider Obstetrics & Gynecology Gynecologic Oncology
DX: C56.1 Malignant neoplasm of right ovary (principal); C56.2 Malignant neoplasm of left ovary
CPT/HCPCS: 36415; 80053; 86304; 85025

== ENCOUNTER 2020-11-10 12:56 | Outpatient (CLI) | payer OTHER, SELFPAY ==
--- OUTSIDE RECORDS SUMMARY | 2020-11-10 12:58 | XMS_ITS | Encounter Summary ---
:1960 Author Reason for Visit None recorded. Assessment and Plan Assessment Note Ddx for fatigue: cardiac--SVT/ dx , significant stress following dx and tx for cancer, nutritional deficiencies, functional mitochondrial concern -I will review recent medical records to further work on ddx/etiologic considerations. Reviewing labs on VITL. -Discussed ongoing self-care, working wi th lovingkindness meditations in context of sensation of fear/grief. 1. Fatigue Discussed Organix Comprehensiv e Profile in context of ongoing fatigue. ? unlisted lab - organix com prehensive profile 2. History of malignant neoplasm of ovary Discussion Note: None recorded.Patient educational handouts: No information available. Plan of Care Patient Instructions Dear Ivana, It was such a pleasure to meet you on ! I am looking forward to having the [facility] to review the Organic Acid test profile together when this is final. I will also be reviewing your recent medical records as I consider your care plan recommendations. I was thinking of our conversation about meditation. As I mentioned in the visit, I really like the idea of working with lovingkindness or metta meditations. I love these books: Lovingkindness by Roderick Abarca and Johanny by Jimena ramirez. Those have both been influential in my own healing and they might resonate with you if you haven't already read them. Reminders Provider Appointments Telehealth - Ne ton He [place] Return Patient 11/16/2020 1:30PM Lab Unlisted Lab [facility] 10/16/2020 Referral None ? ? recorded. Procedures None ? ? recorded. Surgeries None ? ? recorded. Imaging None ? ? recorded. Medications Name Start Date ? ? atorvastatin 10 mg tablet ? TAKE 1 TABLET BY MOUTH DAILY bupropion HCl XL 150 mg 24 hr tablet, extended release ? TK 1 T PO QAM bupropion HCl XL 300 mg 24 hr tablet, extended release ? TAKE 1 TABLET BY MOUTH EVERY MORNING clobetasol 0.05 % topical ointment ? APPLY A SMALL DOT SPARINGLY 3 MM WIDE E VERY NIGHT FOR 6 WEEKS THEN 1TO 3 TIMES PER WEEK FOR MAINTAINCE diltiazem CD 120 mg capsule,extended release 24 hr ? TAKE 3 CAPSULES BY MOUTH DAILY diltiazem CD 180 mg capsule,extended release 24 hr ? TK ONE C PO D diltiazem CD 240 mg capsule,extended release 24 hr ? TAKE 1 CAPSULE BY MOUTH DAILY hydrochlorothiazide 25 mg tablet ? TK 1 T PO QD hydrocodone 5 mg-acetaminophen 325 mg tablet ? ibuprofen 800 mg tablet ? TAKE 1 TABLET BY MOUTH THREE TIMES DAILY NEEDED FO R FOR PAIN lorazepam 0.5 mg tablet ? TAKE 1 TABLET BY MOUTH EVERY 6 HOURS NEEDED FOR AN XIETY metoprolol succinate ER 25 mg tablet,extended release 24 hr ? TAKE 1 TABLET BY MOUTH DAILY metoprolol succinate ER 50 mg tablet,extended release 24 hr ? TAKE ONE TABLET BY MOUTH DAILY prochlorperazine maleate 10 mg tablet ? TK 1 T PO Q 6 H PRF NAUSEA Zejula 100 mg capsule ? Take 1 capsule every day by oral route. Medications Administered None recorded. Vitals Height Weight BMI 5 ft 5 in 134 lbs 22.3 kg/m2 Results Lab Results None recorded. Allergies Code Code System Name Reaction Severity Onset 11346 RxNorm Paclitaxel Anaphylaxis ? ? 25869 RxNorm Paroxetine Other ? ? Penicillins Anaphylaxis ? ? Problems None recorded. Procedures Date Name Performed by ? 04/21/2019 Appendectomy Information not avai lable 04/21/2019 Hysterectomy Information not avai lable 04/21/[address] [facility] Notes: 1981 Vaccine List None recorded. Social History None recorded. Family History Relation Problem Onset Age of Age Notes Brother Heart disease (No N/A (No Notes) Information) Brother Parkinson's disease (No N/A (No Note s) Information) Brother Alcohol abuse (No N/A (No Notes) Information) Mother Heart disease (No N/A (No Notes) Information) Mother Asthma (No N/A (No Notes) Information) Father Alcohol abuse (No N/A (No Notes) Information) Maternal Aunt Ovarian cancer, (No N/A (No Notes) disseminated Information) Functional Status Unknown. Past Encounters 08/21/2020 Fatigue; History of Malignant Neoplasm o f Ovary Jaqueline He, [place]: [address] [facility] [address] [place] [address], [place] [address], Ph. History of Present Illness Note: <p>Ivana and I had an in person DUKEY RIDER consult today to discuss fatigue associated with post-cancer tx and SVT/aortic stenosis concerns. </p><p>
</p><p>History ofovarian cancer:</p><p>Ovarian cancer remissioning healthy</p><p>Stage 3B when diagnosed with mets to upper abdodmen</p><p>Full hysterectomy</p><p>Primarily seeking support in stay</p><p>
</p><p>Dx with ovarian cancer during the first week of the pandemic.</p><p>Has been diagnosed due to continual pain. Pain in the abdomen. She would feel discomfort when she would sit down.</p><p>Tired all the time. Busy in work life, but fatigue was more pronounced.</p><p>Lack of appetite.</p><p>Hysterectomy in July.</p><p>Last chemo was December 19.</p><p>Chemo dri p</p><p>
</p><p>PCP: Evelyne Hunt</p><p>Regi Harrison gy necologist</p><p>Chemotherapy tx and full hysterectomy following diagnosis. </p><p>
</p><p>Current has cardiac functional monitor patch, Zio patch, this is being removed this week and then she will have follow-up with Dr. Taylor, lithographed plate inspector, on 09/01/20.< /p><p>
</p><p>Diltiazem and metropolol are pharmaceutical current strategies to address SVT.</p><p>
</p><p>1 month ago. Severe tachycardiaepisode, required ER visit..</p><p>Dajuan Carranza at the [facility] is providing care and she's had some relief from this modality. </p><p>Incorporates breathing into tryingto self regulate her heart.</p><p>
</p><p>Point Of Care Specialist: Dr. Esqueda</p><p>Mother: heart disease, brothers heart disease</p><p>
</p><p>Dx with SVT and aortic stenosis</p><p>Unsuccessful cardiac ablation 2 weeks ago.</p><p>Hospitalized about 1 month ago</p><p>Severe palpitations related to SVT.</p><p>Heart would go tachy and then drop out.</p><p>2 episodes while in the ER.</p><p>This was the impetus for the ablation. Couldn't perform the ablationdue to lack of SVT episode at the time of the procedure.</p><p>
</p><p>Meditates daily.</p><p>No stamina. No energy.</p><p>The episodes take a lot out of her when she has more severe tachycardia. </p><p>
</p><p>Lost mother and brother in the same year--2 years ago.</p><p>
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 Workaholic. Starting this week, she will be working 32 hours per week.</p><p>
</p><p>Son (38 yo) and Hung (infant) and daughter (36 yo). Granddaughter Shahnaz (11 yo).</p><p>
</p><p><br& gt;</p><p>
</p> Review of Systems ? Comprehensive General Adult ROS Reported By: Patient Constitutional: Constitutional: ; Frequently wakes to urinate. Drinks a great deal of water all day long. 2 cups of coffee per day. Goes back to sleep relatively wel l. Bedtime between 8-9 nightly, Up by 6:00 to 6:30AM. Feels refreshed upon awakening. Morning person.Gets tired by the early evening, when she gets home from work. Ready to drop by 3:30-4:00pm. Energy level concern: she really fe els that this is related to her cardiac health. No stamina. Exhausts at the drop of a hat. Walking up a hill is untenab le. Walking on flat surface is enough to wear her out. Had been 118 lbs when she was ill. Lost 2 lbs per week when goi ng through chemo. She has a good appetite. She has moved up to around 130 lb. Eyes: Eyes: no vision change, wear s glasses/contact lenses ENMT: Ears: no difficulty hearing, no ear pain. Nose: no frequent nosebleeds, no nose problems , no sinus problems. Mouth/Throat: no sore throat, no bleeding gums, no snoring, no dry mouth, no mouth ulcers, no ringing in the ears; mouth ulcers resolved following discontinuation of chemotherapy Cardiovascular: Cardiovascular: no chest arnulfo n, light-headed on standing; SOB with acute SVTLightheadednes s at night Respiratory: Respiratory: no cough, no wh eezing Gastrointestinal: Gastrointestinal: constipati on; Bowel movements: constipation during chemotherapy. Severe , involving enemas.Currently regulated with dliligent. V ega vegan protein powder with miralax. Must use this to f aciliate BM. 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 Inguinal (right sided)neuro flo has resolved. This has been an AE of chemotherpy tx Psychiatric: Psych: feeling safe in a rel ationship, depression, sleep disturbances; lives with hus band and 2 dogs Endocrine: Endocrine: fatigue, increase d thirst, hair loss Hematologic/Lymphatic: Hematologic/Lymphatic no bru ising, anemia; post-chemo Allergic/Immunologic: Allergy/Immunologic: no hive s Physical Exam ? General Adult Exam Reported By: Patient Constitutional: General Appearance: healthy- appearing, well-nourished, well-developed. Level of Dis tress: NAD. Ambulation: ambulating normally Psychiatric: Insight: good judgement. Men stephon Status: active and alert, normal mood, normal affect. Orienta tion: to time, to place, to person. Memory: recent memory normal , remote memory normal Head: Head: normocephalic, atrauma tic Eyes: Lids and Conjunctivae: non-i njected, no discharge, no pallor. Pupils: PERRLA ENMT: Ears: no lesions on external ear, EACs clear, TMs clear. Nose: no lesions on external nose, na res patent. Lips, Teeth, and Gums: no mouth or lip ulcers, no blee ding gums, normal dentition. Oropharynx: moist mucous mem branes, no erythema, no exudates Neck: Neck: supple, trachea midlin e, no masses. Lymph Nodes: no cervical LAD, no supraclavicular LAD. Thyroid: no enlargement, non-tender, no nodules Lungs: Respiratory effort: no dyspn ea. Auscultation: breath sounds normal, good air movement Cardiovascular: Heart Auscultation: RRR, nor mal S1, normal S2, murmur; murmur consistent with aortic steno sis concern Abdomen: Bowel Sounds: normal. Inspec tion and Palpation: soft, non-distended, no tenderness , no guarding, no rebound tenderness, no masses. Liver: non-tender , no hepatomegaly. Spleen: non-tender, no splenomegaly. Hernia: non e palpable; surgical scar noted at midline of the abdomen, vert ical orientation, well-healed from hysterectomy. Skin intact. No evidence of infection Musculoskeletal:: Extremities: no cyanosis, no edema Neurologic: Gait and Station: normal gai t, normal station Skin: Inspection and palpation: no rash, no lesions, good turgor. Nails: normal; capillary refill WNL Notes: <p></p>
--- OUTSIDE RECORDS SUMMARY | 2020-11-10 12:58 | XMS_ITS | Encounter Summary ---
:1960 Author Reason for Visit Telemedicine Consult reviewed diet diary; reviewed diet diary ; Assessment and Plan Assessment Note Telemedicine consult today. Consent attained prior to our meeting today, concept of telemedicine is well-understood. 30 minutes in consult today. Reviewed organic acid profile, reviewed diet diary. Discussed care plan options. 1. Fatigue Discussed Organix Comprehensiv e Profile findings in context of ongoing fatigue. Remarkable for abnormal markers consiste nt with need for additional antioxidant support, B-vitamin support, GI mucosa support. Recommendations are noted below. 2. History of malignant neoplasm of ovary 3. Supraventricular tachycardia -monitored by cardiology, ongo ing concern 4. Aortic valve stenosis -monitored by cardiology, ongo ing concern Discussion Note: None recorded.Patient educational handouts: No information available. Plan of Care Patient Instructions Ivana Atkins! It was so nice to see you today in our v isit. As promised, I am including an attachment (See the attachment to this correspondence) with an interpretive guide to the organic acid testing. I am hoping th e the recommendations that I made will b e a helpful part of your healing strategy. I was able to locate a liposomal form of the glutathione supplement here, so it will be straightforward to have it ordered all in one spot after all. The glutathione is a powerful antioxidan t. Make sure to hold under your tongue for 30 seconds before swallowing. The glutathione was directly indicated o n your organic acid test and I hope it will be helpful in gnosticism. I would like to start the GI healing wit h a glutamine supplement indicated below. This is utilized frequently post-chemo to assist in healing cells and I am hoping it may be restorative to your gastrointestinal tract. The CoQ10 recommended here is important in a number of chemical reactions and often gets depleted with statin drugs. This is used in the mitochondria of the cells for energy production. The B vitamins were indicated in a numbe r of areas. These should be important to improving energy levels as well. For dietary recommendations, let's focus on the following: -Make it a goal to eat 5 full servings o f vegetables daily. For reference, a full serving is generally 1/2 cup cooked vegetables or 1 cup raw. -Consider the food choices on the low-gl ycemic handout that I have attached here. -Ideally, please include at least 1 anim al source of protein per day. -Focus on hydration. I want to make sure we support your digestive tract with adequate water each day. Make sure to drink at least 60 oz water per day. Continue to work with salomon/janak ss exercises daily. I am hoping this is a good start. We hav e lots of tools to help in your healing process. Let's plan to follow-up on your progress in 4 weeks. Jose A, MM Attached documents: [email or web address]_[email or web address], Organix_ -_Interpretive_Guide.pdf Supplement recommendations: Active B-Complex (60 capsules) ([employer]): Please take 2 capsules, once / day (with meals. With breakfast or lunch. Can divide dose to one capsule daily. ). Liposomal Glutathione (50 Milliliters) ( [employer]): 2 pumps, twice daily. Hold under tongue for 30 seconds before swallowing. Can be taken with or away from meals. . CoQ10 100mg (60 Softgels) ([employer]): Please take 1 gel, twice / day (with meals). L-Glutamine Powder (300 Grams) (Klaire L abs): Please take 1 scoop, twice / day (1 scoop to liquid twice daily. Morning, Evening. Away from food by 30 minutes or more. ) Reminders Provider Appointments Telehealth - Sd ton He, Return Patient 11/16/2020 ND 1:30PM Lab None recorded. ? ? Referral None recorded. ? ? Procedures None recorded. ? ? Surgeries None recorded. ? ? Imaging None recorded. ? ? Medications Name Start Date ? ? atorvastatin [...] oral route. Medications Administered None recorded. Vitals None recorded. Results Lab Results None recorded. Allergies Code Code System Name Reaction Severity Onset 87457 RxNorm Paclitaxel Anaphylaxis ? ? 12075 RxNorm Paroxetine Other ? ? Penicillins Anaphylaxis ? ? Problems None recorded. Procedures Date Name Performed by ? 04/21/2019 Appendectomy Information not avai lable 04/21/2019 Hysterectomy Information not avai lable 04/21/1981 Section Information not avai lable Notes: 1981 Vaccine List None recorded. Social [...] disseminated Information) Functional Status Unknown. Past Encounters 09/19/2020 Fatigue; History of Malignant Neoplasm o f Ovary; Supraventricular Tachycardia; Aortic Valve Stenosis Jaqueline He, ND: [address] [address], Ph. 08/21/2020 Fatigue; History of Malignant Neoplasm o f Ovary Jaqueline He, [place]: 250 [facility], [facility] [address], [place] [address], Ph. History of Present Illness Note: <p>Ivana and I met by by telemedicine today to review labs and to review updates since last meeting.
</p><p>
</p><p>Ivana reports that she did have continuous cardiac event monitoring for 19 days. 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 </p><p>
</p><p>Ivana reports intense fatigue. This is the aspect of her current health status that creates disruption. </p><p>
</p><p>Ivana has anemia following chemo and constipation tendency. She is currently monitored for this concern. </p><p>
</p> Review of Systems None recorded. Physical Exam ? General Adult Exam Reported By: Patient Constitutional: General Appearance: healthy- appearing. Level of Distress: NAD Psychiatric: Insight: good judgement. Men stephon Status: active and alert, normal mood, normal affect. Orienta tion: to time, to place, to person
--- OUTSIDE RECORDS SUMMARY | 2020-11-10 12:58 | XMS_ITS | Encounter Summary ---
:1960 Author Reason for Visit Telemedicine Consult Assessment and Plan Assessment Note Telemedicine consult today. Consent attained prior to our meeting today, concept of telemedicine is well-understood. 30 minutes in consult today. 1. Fatigue -improving on current protocol , continue all except glutamine -for cognitive concern, memory, add: dakota sphatidylserine as a trial 2. History of malignant neoplasm of ovary -blood test next week to asses s CBC, CMP, CA125, will contact me with any updates 3. Supraventricular tachycardia -monitored by cardiology, ongo ing concern -palpitations have been absent since las t reporting 4. Aortic valve stenosis -monitored by cardiology, ongo ing concern Discussion Note: None recorded.Patient educational handouts: No information available. Plan of Care Patient Instructions Ivana Atkins! It was so nice to see you today! As a summary: -Consider a chiropractic consult for you r neck pain and leg swelling. -Keep an eye on the swelling. If you not e that there is any pain, throbbing, or discoloration of your skin, please get a physical exam or elicit an urgent care visit. Let's plan to discontinue glutamine for now to make sure that it's not contributing to the headaches. I am more suspicious that this is sinus related. -Let's plan to try mucinex and do some n serafin/saline rinses to clear passages. I like the NeilMed rinses and squeeze bottles which can be found at the drug store. For memory, let's trial the phosphatidyl serine listed below. Here are the recommendations that we'll trial this time. MAU Naranjo Supplement recommendations: Active B-Complex (60 capsules) ([employer]): Please take 2 capsules, once / day (with meals. With breakfast or lunch. Can divide dose to one capsule daily. ). Liposomal Glutathione (50 Milliliters) ( [employer]): 2 pumps, twice daily. Hold under tongue for 30 seconds before swallowing. Can be taken with or away from meals. . CoQ10 100mg (60 Softgels) ([facility] herapeutics): Please take 1 gel, twice / day (with meals). Phosphatidyl Serine (60 capsules) ([employer]): Please take 1 capsule, twice / day Reminders Provider Appointments Telehealth - ton He, Return Patient 11/16/2020 ND 1:30PM [...] Code Code System Name Reaction Severity Onset 25292 RxNorm Paclitaxel Anaphylaxis ? ? 45533 RxNorm Paroxetine Other ? ? Penicillins Anaphylaxis ? ? Problems None recorded. Procedures Date Name Performed by ? 04/21/2019 Appendectomy Information not avai lable 04/21/2019 Hysterectomy Information not avai lable 04/21/1981 Section Information not [facility] lable Notes: 1983, 1981 Vaccine List None recorded. Social History [...] disseminated Information) Functional Status Unknown. Past Encounters 10/18/2020 Fatigue; History of Malignant Neoplasm o f Ovary; Supraventricular Tachycardia; Aortic Valve Stenosis Jaqueline He, ND: [address] [address], Ph. 09/19/2020 Fatigue; History of Malignant Neoplasm o f Ovary; Supraventricular Tachycardia; Aortic Valve Stenosis Jaqueline He, ND: [address] [address], [place] [address], Ph. History of Present Illness Note: <p>Ivana and I had a telemedicine consult today to check in on chronic concerns and progress on protocol.</p><p>
</p><p>A couple of weeks ago, she had a massage and after this, had an onset of symptoms come on for which she cannot pinpoint a cause.</p><p>
</p><p>Ivana noted that she had some body work recently and found herself very sore after the body work.</p><p>Swelling of left leg. This is up and down, intermit tently symptom. She notes that there is no pitting edema. Swelling includes knee to ankle.</p><p>
</p><p>Prior trauma to the L. ankle but nothing recent.</p><p>She denies pain in the leg. No throbbing, no temperature change in the leg.</p><p>Shedoes have neuropathy in both feet.</p><p>She finds that her left foot looks a bit more blue, but this is not a major concern to her.</p><p>
</p><p>She notesthat the symptom tends to come on late in the day.</p><p>Elevating the leg helps somewhat.</p><p>
</p><p>She felt very sore following the</p><p>She notes swelling of the left leg.</p><p>She is having headache, origin is at the left or bit.</p><p>She finds that her neck is very sore.</p><p>
</p><p>She has had MONTANO intermittently. Several times per week.</p><p>Ivana has a hx of migr rich MONTANO.</p><p>She has a hx of left-sided migraines.</p><p>These current MONTANO are not as severe. This is a dull, constant ache.</p><p>Localized pain in the orbit.</p ><p>She is trying not to take acetaminophen or NSAIDs for fear of rebound MONTANO.</p><p>She is adequately hydrated.</p><p>
</p><p>She has had more post- nasal drip than typical.</p><p>
</p><p>She has had once incident inwhich she feels cross eyed. This seems to last for a few seconds. She can close her eyes and things improve shortly thereafter.</p><p>
</p><p>Ivana had her port removed 2 weeks ago today.</p><p>She is scheduled for blood work next week and has a meeting withthe oncologist soon.</p><p>
</p><p>She reports that since she begantaking the new supplements, her energy has improved and fatigue has been minimized.</p><p>
</p><p>Ivana reports that she hasn't had any palpitations. This has improved.&l t;/p><p>
</p><p>She was planning to have her blood drawn next Friday or Friday.</p><p>
</p><p>Neck pain--worse with movement. Pain in upper traps and neck. 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
</p><p>She reports that one things she had hoped to discuss today is that she's having some memory issues.This is making her feel less confident in her professional life. She notes that the healthier she gets, the more she notices this. She gets stuck. Someone can tell her something and then in five minutes, she cannot recall what they have said.</p>Review of Systems: ROS as noted in the HPI Review of Systems ? Notes: <p>
</p> Physical Exam ? General Adult Exam Reported By: Patient Constitutional: General Appearance: healthy- appearing. Level of Distress: NAD Psychiatric: Insight: good judgement. Men stephon Status: active and alert, normal mood, normal affect. Orienta tion: to time, to place, to person
--- OUTSIDE RECORDS SUMMARY | 2020-11-10 12:58 | XMS_ITS ---
:1960 Author Care Team Providers Name Role Phone Jaqueline He Primary Care Provider Unavailable Allergies Code Code System Name Reaction Severity Status Onset 03639 RxNorm Paclitaxel Anaphylaxis ? Active ? 76557 RxNorm Paroxetine Other ? Active ? Penicillins Anaphylaxis ? Active ? Medications Name Status Start Date Stop Date ? ? atorvastatin 10 mg tablet Active ? Not av ailable TAKE 1 TABLET BY MOUTH DAILY bupropion HCl XL 150 mg 24 hr tablet, extended release Active ? Not available TK 1 T PO QAM bupropion HCl XL 300 mg 24 hr tablet, extended release Active ? Not available TAKE 1 TABLET BY MOUTH EVERY MORNING clobetasol 0.05 % topical ointment Active ? Not available APPLY A SMALL DOT SPARINGLY 3 MM WIDE E VERY NIGHT FOR 6 WEEKS THEN 1TO 3 TIMES PER WEEK FOR MAINTAINCE diltiazem CD 120 mg capsule,extended release 24 hr Active ? Not available TAKE 3 CAPSULES BY MOUTH DAILY diltiazem CD 180 mg capsule,extended release 24 hr Active ? Not available TK ONE C PO D diltiazem CD 240 mg capsule,extended Active ? Not available release 24 hr hydrochlorothiazide 25 mg tablet Active ? Not available TK 1 T PO QD hydrocodone 5 mg-acetaminophen 325 mg Active ? Not available tablet ibuprofen 800 mg tablet Active ? Not avai lable TAKE 1 TABLET BY MOUTH THREE TIMES DAILY NEEDED FOR FOR PAIN lorazepam 0.5 mg tablet Active ? Not avai lable TAKE 1 TABLET BY MOUTH EVERY 6 HOURS NEEDED FOR ANXIETY metoprolol succinate ER 25 mg tablet,extended release 24 hr Acti ve ? Not available TAKE 1 TABLET BY MOUTH DAILY metoprolol succinate ER 50 mg tablet,extended release 24 hr Acti ve ? Not available TAKE ONE TABLET BY MOUTH DAILY prochlorperazine maleate 10 mg tablet Active ? Not available TK 1 T PO Q 6 H PRF NAUSEA Zejula 100 mg capsule Active ? Not availa ble Problems None recorded. Procedures Date Name Performed by ? 04/21/2019 Appendectomy Information not avai lable 04/21/2019 Hysterectomy Information not avai lable 04/21/1981 Section Information not avai lable Notes: 1983, 1981 Results Lab Results None recorded. Past Encounters 10/18/2020 Fatigue; History of Malignant Neoplasm o f Ovary; Supraventricular Tachycardia; Aortic Valve Stenosis Jaqueline He, ND: [address] [facility], [place] [address], [place] [address], Ph. 09/19/2020 Fatigue; History of Malignant Neoplasm o f Ovary; Supraventricular Tachycardia; Aortic Valve Stenosis Jaqueline He, ND: [address] [facility], [place] [address], [place] [address], Ph. 08/21/2020 Fatigue; History of Malignant Neoplasm o f Ovary Jaqueline He, ND: [address] [facility], [place] [address], [place] [address], Ph. Social History None recorded. Vaccine List None recorded. Plan of Care Patient Instructions Ivana Atkins! [...] the recommendations that we'll trial this time. Warmly, MM Supplement recommendations: Active B-Complex (60 capsules) ([employer] T1 [employer]): Please take 2 capsules, once / day (with meals. With breakfast or lunch. Can divide dose to one capsule daily. ). Liposomal Glutathione (50 Milliliters) ( [employer]): 2 pumps, twice daily. Hold under tongue for 30 seconds before swallowing. Can be taken with or away from meals. . CoQ10 100mg (60 Softgels) ([employer]): Please take 1 gel, twice / day (with meals). Phosphatidyl Serine (60 capsules) ([employer]): Please take 1 capsule, twice / day Ivana Atkins! 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 I would like to start the GI [...] water per day. Continue to work with metta/janak ss exercises daily. I am hoping this [...] daily. ). Liposomal Glutathione (50 Milliliters) ( [employer]): 2 pumps, twice daily. Hold under tongue [...] food by 30 minutes or more. ) Dear Ivana, It was such a pleasure to meet you on [place] ! I am looking forward to having the [facility] department e to review the Organic Acid test [...] haven't already read them. Reminders Provider Appointments None recorded. ? ? Lab None recorded. ? ? Referral None recorded. ? ? Procedures None recorded. ? ? Surgeries None recorded. ? ? Imaging None recorded. ? ? Vitals Height Weight BMI 5 ft 5 in 134 lbs 22.3 kg/m2
[2020-11-10 13:22] LABS: Abs Immature Grans 0.02 10^3/uL (0.0-0.06); Absolute Basophil Count 0.06 10^3/uL (0.0-0.2); Absolute Eosinophil Count 0.16 10^3/uL (0.0-0.7); Absolute Lymphocyte Count 1.45 10^3/uL (1.2-3.4); Absolute Monocyte Count 0.56 10^3/uL (0.1-0.8); Absolute Neutrophil Count 3.54 10^3/uL (1.2-6.7); Eosinophils % 2.8; HCT 38.6 % (36.0-46.0); HGB 13.5 g/dL (11.2-15.7); Immature Grans % 0.3; MCH 36.9 pg (27.0-33.0); MCV 105.5 fL (80-95); Monocytes % 9.7; Neutrophils % 61.2; Nucleated RBC 0 %; Platelet Count 223 10^3/uL (130-400); RBC 3.66 10^6/uL (3.93-5.22); RDW-SD 47.2 fL; WBC 5.79 10^3/uL (4.4-10.8)
[2020-11-10 13:31] LABS: ESR 5 mm/hr (0-30)
[2020-11-10 13:35] LABS: ALT 27 U/L (14-59); AST 27 U/L (15-37); Albumin 4.3 g/dL (3.4-5.0); Alkaline Phosphatase 105 U/L (46-116); BUN 19 mg/dL (7-18); CREATININE 0.8 mg/dL (0.55-1.02); Calcium 9.5 mg/dL (8.5-10.1); Calculated LDL 87 mg/dL (<100); Chloride 103 mmol/L (98-107); Cholesterol 201 mg/dL (<200); Glucose 89 mg/dL (74-106); HDL Cholesterol 84 mg/dL (40-60); Sodium 140 mmol/L (136-145); Total Protein 7.4 g/dL (6.4-8.2); Triglyceride 151 mg/dL (<150)
== END 2020-11-10 12:57 | disposition home or self-care (01) ==
LOC: LBO 12:56
PROVIDERS: PCP Nurse Practitioner; Visit Provider Nurse Practitioner Adult Health
DX: L29.9 Pruritus, unspecified (principal); R21 Rash and other nonspecific skin eruption; E78.5 Hyperlipidemia, unspecified; R74.8 Abnormal levels of other serum enzymes
CPT/HCPCS: 36415; 80053; 80061; 85652; 84080; 85025

== ENCOUNTER 2020-11-20 00:50 | Outpatient (CLI) | payer OTHER, SELFPAY ==
--- NOTE | 2020-11-20 15:38 | DI.MAMMO_ITS ---
Exam(s) MAMMO SCREENING EXAM: MAMMO SCREENING CLINICAL HISTORY: screening,Z12.39. TECHNIQUE: Bilateral full field digital CC and MLO mammographic images were obtained with 3D tomosyn thesis and utilizing computer aided detection (CAD). COMPARISON: Prior mammograms dating back to 2010, the most recent being February 2018. FINDINGS: There are no CAD designations There are no new spiculated masses nor malignant appearing microcalcification groups. There is no significant architectural distortion nor skin thickening-retraction. IMPRESSION: No radiographic evidence of malignancy. BI-RADS Category 1 - Negative Breast Density - Category B - Scattered areas of fibroglandular density Breast density Category C or D implies that the patient has dense breast tissue. Dense breast tissue can make it harder to find cancer on a mammogram. Dense breast tissue is also associated with an incr eased risk of breast cancer. This information about the result of the mammogram report was provided to the patient to raise their awareness. Use this report when you speak with the patient about their risks for breast cancer, which includes their family history. At that time, you may recommend additional screening tests (Ultrasoun d or MRI) as these tests may add significant information. A negative radiographic report should not delay biopsy if a dominant or clinically suspicious mass is present. Up to ten percent of cancers are not identified on mammography. A negative report may reinforce clinical impression. Adenosis and dense breasts may obscure an underlying neoplasm. False positive reports average 6 to 10%. Patient will receive a letter notifying them of these results.
== END 2020-11-20 01:10 ==
PROVIDERS: PCP Nurse Practitioner; Visit Provider Nurse Practitioner
DX: Z12.31 Encounter for screening mammogram for malignant neoplasm of breast (principal)
CPT/HCPCS: 77063; 77067

== ENCOUNTER 2020-12-28 02:55 | Outpatient (CLI) | payer OTHER, SELFPAY ==
[2020-12-28 11:31] LABS: Abs Immature Grans 0.02 10^3/uL (0.0-0.06); Absolute Basophil Count 0.05 10^3/uL (0.0-0.2); Absolute Eosinophil Count 0.15 10^3/uL (0.0-0.7); Absolute Monocyte Count 0.67 10^3/uL (0.1-0.8); Absolute Neutrophil Count 3.07 10^3/uL (1.2-6.7); HCT 38.6 % (36.0-46.0); HGB 13.6 g/dL (11.2-15.7); Immature Grans % 0.4; Lymphocytes % 20.2; MCH 38.3 pg (27.0-33.0); MCHC 35.2 % (32.0-36.0); MCV 108.7 fL (80-95); MPV 8.7 fL (8.0-11.0); Monocytes % 13.5; Neutrophils % 61.9; Nucleated RBC 0 %; Platelet Count 191 10^3/uL (130-400); RBC 3.55 10^6/uL (3.93-5.22); RDW-SD 48.4 fL; WBC 4.96 10^3/uL (4.4-10.8)
[2020-12-28 11:55] LABS: Macrocytosis 1+
[2020-12-28 13:04] LABS: ALT 26 U/L (14-59); AST 21 U/L (15-37); Albumin 4.4 g/dL (3.4-5.0); Alkaline Phosphatase 114 U/L (46-116); Anion Gap 10.9 mmol/L (3-11); BUN 13 mg/dL (7-18); CO2 25.1 mmol/L (21.0-32.0); CREATININE 0.8 mg/dL (0.55-1.02); Calcium 9.2 mg/dL (8.5-10.1); Chloride 100 mmol/L (98-107); Glucose 95 mg/dL (74-106); Potassium 3.9 mmol/L (3.5-5.1); Sodium 136 mmol/L (136-145); Total Protein 7.3 g/dL (6.4-8.2)
[2020-12-29 09:37] LABS: CA 125 6 U/mL (<30)
== END 2020-12-28 02:56 | disposition home or self-care (01) ==
LOC: LBO 02:56
PROVIDERS: PCP Nurse Practitioner; Visit Provider Obstetrics & Gynecology Gynecologic Oncology
DX: C56.1 Malignant neoplasm of right ovary (principal); C56.2 Malignant neoplasm of left ovary
CPT/HCPCS: 80053; 86304; 85025

== ENCOUNTER 2021-01-30 03:33 | Outpatient (CLI) | payer OTHER, SELFPAY ==
[2021-01-30 10:43] LABS: Abs Immature Grans 0.01 10^3/uL (0.0-0.06); Absolute Basophil Count 0.04 10^3/uL (0.0-0.2); Absolute Eosinophil Count 0.12 10^3/uL (0.0-0.7); Absolute Lymphocyte Count 1.01 10^3/uL (1.2-3.4); Absolute Monocyte Count 0.51 10^3/uL (0.1-0.8); Absolute Neutrophil Count 4.89 10^3/uL (1.2-6.7); Basophils % 0.6; Eosinophils % 1.8; HCT 38.6 % (36.0-46.0); HGB 13.4 g/dL (11.2-15.7); Immature Grans % 0.2; Lymphocytes % 15.3; MCH 37.4 pg (27.0-33.0); MCHC 34.7 % (32.0-36.0); MCV 107.8 fL (80-95); MPV 8.7 fL (8.0-11.0); Monocytes % 7.8; Neutrophils % 74.3; Nucleated RBC 0 %; Platelet Count 194 10^3/uL (130-400); RBC 3.58 10^6/uL (3.93-5.22); RDW 11.7 % (11.7-14.6); WBC 6.58 10^3/uL (4.4-10.8)
[2021-01-30 12:15] LABS: ALT 27 U/L (14-59); AST 19 U/L (15-37); Albumin 4.2 g/dL (3.4-5.0); Alkaline Phosphatase 105 U/L (46-116); Anion Gap 9.6 mmol/L (3-11); BUN 18 mg/dL (7-18); Bilirubin, Total 1.1 mg/dL (0.2-1.0); CO2 26.4 mmol/L (21.0-32.0); CREATININE 0.8 mg/dL (0.55-1.02); Calcium 9.2 mg/dL (8.5-10.1); Chloride 101 mmol/L (98-107); Glucose 97 mg/dL (74-106); Potassium 4.2 mmol/L (3.5-5.1); Sodium 137 mmol/L (136-145)
[2021-01-31 11:52] LABS: CA 125 5 U/mL (<30)
== END 2021-01-30 03:34 | disposition home or self-care (01) ==
LOC: LBO 03:33
PROVIDERS: PCP Nurse Practitioner; Visit Provider Obstetrics & Gynecology Gynecologic Oncology
DX: C56.9 Malignant neoplasm of unspecified ovary (principal)
CPT/HCPCS: 36415; 80053; 86304; 85025

== ENCOUNTER 2021-02-05 14:28 | Outpatient (REF) | payer OTHER, SELFPAY ==
[2021-02-05 13:42] LABS: C Diff PCR Negative (Negative)
[2021-02-06 11:54] LABS: Campylobacter PCR Negative (Negative); Salmonella PCR Negative (Negative); Shiga Toxin PCR Negative (Negative); Shigella/Enteroinvasive Ecoli Negative (Negative)
== END 2021-02-05 14:29 | disposition home or self-care (01) ==
LOC: LBN 14:28
PROVIDERS: PCP Nurse Practitioner; Visit Provider Nurse Practitioner
DX: R10.9 Unspecified abdominal pain (principal); R19.7 Diarrhea, unspecified
CPT/HCPCS: 87493; 87505; 87177

== ENCOUNTER 2021-03-22 02:26 | Outpatient (CLI) | payer OTHER, SELFPAY ==
[2021-03-22 11:34] LABS: Abs Immature Grans 0.01 10^3/uL (0.0-0.06); Absolute Basophil Count 0.05 10^3/uL (0.0-0.2); Absolute Eosinophil Count 0.18 10^3/uL (0.0-0.7); Absolute Lymphocyte Count 1.48 10^3/uL (1.2-3.4); Absolute Monocyte Count 0.66 10^3/uL (0.1-0.8); Absolute Neutrophil Count 3.71 10^3/uL (1.2-6.7); Basophils % 0.8; HCT 38.5 % (36.0-46.0); HGB 13.4 g/dL (11.2-15.7); Immature Grans % 0.2; Lymphocytes % 24.3; MCH 37.9 pg (27.0-33.0); MCHC 34.8 % (32.0-36.0); MCV 108.8 fL (80-95); MPV 8.8 fL (8.0-11.0); Monocytes % 10.8; Neutrophils % 60.9; Nucleated RBC 0 %; Platelet Count 208 10^3/uL (130-400); RBC 3.54 10^6/uL (3.93-5.22); RDW 11.9 % (11.7-14.6); RDW-SD 48.1 fL; WBC 6.09 10^3/uL (4.4-10.8)
[2021-03-22 12:33] LABS: ALT 36 U/L (14-59); AST 21 U/L (15-37); Albumin 4.1 g/dL (3.4-5.0); Alkaline Phosphatase 109 U/L (46-116); Anion Gap 8.1 mmol/L (3-11); BUN 17 mg/dL (7-18); Bilirubin, Total 0.9 mg/dL (0.2-1.0); CO2 26.9 mmol/L (21.0-32.0); CREATININE 0.7 mg/dL (0.55-1.02); Calcium 9.3 mg/dL (8.5-10.1); Chloride 100 mmol/L (98-107); Glucose 90 mg/dL (74-106); Potassium 4.5 mmol/L (3.5-5.1); Sodium 135 mmol/L (136-145)
[2021-03-23 09:50] LABS: CA 125 7 U/mL (<30)
== END 2021-03-22 02:27 | disposition home or self-care (01) ==
LOC: LBO 02:27
PROVIDERS: PCP Nurse Practitioner; Visit Provider Obstetrics & Gynecology Gynecologic Oncology
DX: C56.9 Malignant neoplasm of unspecified ovary (principal)
CPT/HCPCS: 36415; 80053; 86304; 85025

== ENCOUNTER 2021-05-08 02:33 | Outpatient (CLI) | payer OTHER, SELFPAY ==
[2021-05-08 12:09] LABS: Abs Immature Grans 0.01 10^3/uL (0.0-0.06); Absolute Basophil Count 0.05 10^3/uL (0.0-0.2); Absolute Eosinophil Count 0.14 10^3/uL (0.0-0.7); Absolute Lymphocyte Count 1.52 10^3/uL (1.2-3.4); Absolute Neutrophil Count 3.53 10^3/uL (1.2-6.7); Basophils % 0.9; Eosinophils % 2.4; HCT 39.9 % (36.0-46.0); HGB 13.8 g/dL (11.2-15.7); Immature Grans % 0.2; Lymphocytes % 26.4; MCH 37.3 pg (27.0-33.0); MCHC 34.6 % (32.0-36.0); MCV 107.8 fL (80-95); MPV 8.9 fL (8.0-11.0); Monocytes % 8.7; Neutrophils % 61.4; Nucleated RBC 0 %; Platelet Count 218 10^3/uL (130-400); RDW 11.8 % (11.7-14.6); RDW-SD 46.7 fL; WBC 5.75 10^3/uL (4.4-10.8)
[2021-05-08 13:05] LABS: ALT 28 U/L (14-59); AST 18 U/L (15-37); Albumin 4.3 g/dL (3.4-5.0); Alkaline Phosphatase 118 U/L (46-116); Anion Gap 7.4 mmol/L (3-11); BUN 14 mg/dL (7-18); CO2 28.6 mmol/L (21.0-32.0); CREATININE 1.2 mg/dL (0.55-1.02); Calcium 9.5 mg/dL (8.5-10.1); Chloride 102 mmol/L (98-107); Estimated GFR 45.83 (mL/min/1.73m2); Glucose 103 mg/dL (74-106); Potassium 4.6 mmol/L (3.5-5.1); Sodium 138 mmol/L (136-145); Total Protein 7.4 g/dL (6.4-8.2)
[2021-05-09 11:24] LABS: CA 125 8 U/mL (<30)
== END 2021-05-08 02:34 | disposition home or self-care (01) ==
LOC: LBO 02:33
PROVIDERS: PCP Nurse Practitioner; Visit Provider Obstetrics & Gynecology Gynecologic Oncology
DX: C56.9 Malignant neoplasm of unspecified ovary (principal)
CPT/HCPCS: 36415; 80053; 86304; 85025

== ENCOUNTER 2021-06-25 16:05 | Outpatient (CLI) | payer OTHER, SELFPAY ==
--- NOTE | 2021-06-25 12:12 | DI.RAD_ITS ---
Exam(s) XR LUMBAR SPINE COMPLETE EXAM: XR LUMBAR SPINE COMPLETE CLINICAL HISTORY: right hip and buttock pain for over a month, M25.551, M79.18. TECHNIQUE: 2D digital imaging was performed. COMPARISON: No exams were available for comparison FINDINGS: BONES: No fracture or destructive lesion. Vertebral bodies are unremarkable. Mild facet hypertrophy i dentified. DISKS: Intervertebral disc spaces are maintained. Small endplate osteophytes at L3-4 and L4-5. ALIGNMENT: Lumbar spinal alignment is within normal limits. SOFT TISSUE: Surgical clips pelvis and right paraspinal region. Bowel gas pattern unremarkable. IMPRESSION: Mild degenerative changes lower lumbar spine. DATA REPOSITORY: RADIATION DOSE DELIVERED:
--- NOTE | 2021-06-25 12:12 | DI.RAD_ITS ---
Exam(s) XR HIP RT COMPLETE AP PELVIS EXAM: XR HIP RT COMPLETE AP PELVIS INDICATION: right hip and buttock pain for over a month, M25.551, M79.18. COMPARISON: No exams were available for comparison TECHNIQUE: 2D digital imaging was performed. FINDINGS: Hip joint spaces are well maintained. There is minimal bilateral acetabular spurring and mild spurri ng at the margin of the femoral heads. Surgical clips are noted and right lower quadrant. No soft t issue or joint space calcifications. IMPRESSION: Mild degenerative changes of both hips. DATA REPOSITORY: RADIATION DOSE DELIVERED:
== END 2021-06-25 16:25 ==
PROVIDERS: PCP Nurse Practitioner; Visit Provider Nurse Practitioner
DX: M25.551 Pain in right hip (principal); M16.11 Unilateral primary osteoarthritis, right hip; M53.3 Sacrococcygeal disorders, not elsewhere classified; M47.816 Spondylosis without myelopathy or radiculopathy, lumbar region; M79.18 Myalgia, other site
CPT/HCPCS: 72110; 73502

== ENCOUNTER 2021-08-10 02:06 | Outpatient (CLI) | payer OTHER, SELFPAY ==
[2021-08-10 11:55] LABS: Abs Immature Grans 0.02 10^3/uL (0.0-0.06); Absolute Basophil Count 0.06 10^3/uL (0.0-0.2); Absolute Eosinophil Count 0.19 10^3/uL (0.0-0.7); Absolute Lymphocyte Count 1.55 10^3/uL (1.2-3.4); Absolute Monocyte Count 0.62 10^3/uL (0.1-0.8); Absolute Neutrophil Count 3.85 10^3/uL (1.2-6.7); HCT 38.4 % (36.0-46.0); HGB 13.4 g/dL (11.2-15.7); Immature Grans % 0.3; Lymphocytes % 24.6; MCH 37.9 pg (27.0-33.0); MCHC 34.9 % (32.0-36.0); MCV 108.5 fL (80-95); MPV 8.4 fL (8.0-11.0); Monocytes % 9.9; Neutrophils % 61.2; Platelet Count 212 10^3/uL (130-400); RBC 3.54 10^6/uL (3.93-5.22); RDW 11.8 % (11.7-14.6); RDW-SD 47.2 fL; WBC 6.29 10^3/uL (4.4-10.8)
[2021-08-10 12:08] LABS: ALT 29 U/L (14-59); AST 20 U/L (15-37); Alkaline Phosphatase 117 U/L (46-116); Anion Gap 6.2 mmol/L (3-11); BUN 15 mg/dL (7-18); Bilirubin, Total 1.1 mg/dL (0.2-1.0); CO2 26.8 mmol/L (21.0-32.0); CREATININE 0.8 mg/dL (0.55-1.02); Chloride 97 mmol/L (98-107); Glucose 95 mg/dL (74-106); Potassium 4.2 mmol/L (3.5-5.1); Sodium 130 mmol/L (136-145); Total Protein 7.2 g/dL (6.4-8.2)
[2021-08-13 10:44] LABS: CA 125 8 U/mL (<30)
== END 2021-08-10 02:07 | disposition home or self-care (01) ==
LOC: LBO 02:06
PROVIDERS: PCP Nurse Practitioner; Visit Provider Obstetrics & Gynecology Gynecologic Oncology
DX: Z85.43 Personal history of malignant neoplasm of ovary (principal)
CPT/HCPCS: 36415; 80053; 86304; 85025

== ENCOUNTER 2021-09-25 08:51 | Outpatient (CLI) | payer OTHER, SELFPAY | END 2021-09-25 08:52 | disposition home or self-care (01) | PROVIDERS: PCP Nurse Practitioner; Visit Provider Dermatology | DX: L80 Vitiligo (principal) | CPT/HCPCS: 96900 ==

== ENCOUNTER 2021-09-28 07:22 | Outpatient (CLI) | payer OTHER, SELFPAY | END 2021-09-28 07:23 | disposition home or self-care (01) | LOC: PUVA 07:22 | PROVIDERS: PCP Nurse Practitioner; Visit Provider Dermatology | DX: L80 Vitiligo (principal) | CPT/HCPCS: 96900 ==

== ENCOUNTER 2021-10-02 08:58 | Outpatient (CLI) | payer OTHER, SELFPAY | END 2021-10-02 08:59 | disposition home or self-care (01) | LOC: PUVA 08:58 | PROVIDERS: PCP Nurse Practitioner; Visit Provider Dermatology | DX: L80 Vitiligo (principal) | CPT/HCPCS: 96900 ==

== ENCOUNTER 2021-10-05 07:42 | Outpatient (CLI) | payer OTHER, SELFPAY | END 2021-10-05 07:43 | disposition home or self-care (01) | LOC: PUVA 07:43 | PROVIDERS: PCP Nurse Practitioner; Visit Provider Dermatology | DX: L80 Vitiligo (principal) | CPT/HCPCS: 96900 ==

== ENCOUNTER 2021-10-09 09:30 | Outpatient (CLI) | payer OTHER, SELFPAY | END 2021-10-09 09:31 | disposition home or self-care (01) | LOC: PUVA 09:31 | PROVIDERS: PCP Nurse Practitioner; Visit Provider Dermatology | DX: L80 Vitiligo (principal) | CPT/HCPCS: 96900 ==

== ENCOUNTER 2021-10-12 07:15 | Outpatient (CLI) | payer OTHER, SELFPAY | END 2021-10-12 07:16 | disposition home or self-care (01) | LOC: PUVA 07:15 | PROVIDERS: PCP Nurse Practitioner; Visit Provider Dermatology | DX: L80 Vitiligo (principal) | CPT/HCPCS: 96900 ==

== ENCOUNTER 2021-10-16 07:32 | Outpatient (CLI) | payer OTHER, SELFPAY | END 2021-10-16 07:33 | disposition home or self-care (01) | LOC: PUVA 07:32 | PROVIDERS: PCP Nurse Practitioner; Visit Provider Dermatology | DX: L80 Vitiligo (principal) | CPT/HCPCS: 96900 ==

== ENCOUNTER 2021-10-19 07:49 | Outpatient (CLI) | payer OTHER, SELFPAY | END 2021-10-19 07:50 | disposition home or self-care (01) | LOC: PUVA 07:49 | PROVIDERS: PCP Nurse Practitioner; Visit Provider Dermatology | DX: L80 Vitiligo (principal) | CPT/HCPCS: 96900 ==

== ENCOUNTER 2021-10-23 07:16 | Outpatient (CLI) | payer OTHER, SELFPAY | END 2021-10-23 07:17 | disposition home or self-care (01) | LOC: PUVA 07:16 | PROVIDERS: PCP Nurse Practitioner; Visit Provider Dermatology | DX: L80 Vitiligo (principal) | CPT/HCPCS: 96900 ==

== ENCOUNTER 2021-10-26 02:24 | Outpatient (CLI) | payer OTHER, SELFPAY ==
[2021-10-26 12:34] LABS: Abs Immature Grans 0.03 10^3/uL (0.0-0.06); Absolute Basophil Count 0.05 10^3/uL (0.0-0.2); Absolute Eosinophil Count 0.15 10^3/uL (0.0-0.7); Absolute Lymphocyte Count 1.57 10^3/uL (1.2-3.4); Absolute Monocyte Count 0.52 10^3/uL (0.1-0.8); Absolute Neutrophil Count 3.28 10^3/uL (1.2-6.7); Basophils % 0.9; Eosinophils % 2.7; HCT 39.7 % (36.0-46.0); HGB 14.2 g/dL (11.2-15.7); Immature Grans % 0.5; MCH 38.4 pg (27.0-33.0); MCHC 35.8 % (32.0-36.0); MCV 107 fL (80-95); Monocytes % 9.3; Neutrophils % 58.6; Platelet Count 225 10^3/uL (130-400); RDW 11.6 % (11.7-14.6); RDW-SD 45.7 fL
[2021-10-26 12:57] LABS: ALT 27 U/L (14-59); AST 21 U/L (15-37); Albumin 4.2 g/dL (3.4-5.0); Alkaline Phosphatase 127 U/L (46-116); Anion Gap 8.5 mmol/L (3-11); BUN 12 mg/dL (7-18); Bilirubin, Total 0.9 mg/dL (0.2-1.0); CO2 27.5 mmol/L (21.0-32.0); CREATININE 0.7 mg/dL (0.55-1.02); Calcium 9.3 mg/dL (8.5-10.1); Calculated LDL 78 mg/dL (<100); Chloride 97 mmol/L (98-107); Cholesterol 232 mg/dL (<200); Glucose 106 mg/dL (74-106); HDL Cholesterol 94 mg/dL (40-60); Potassium 3.5 mmol/L (3.5-5.1); Sodium 133 mmol/L (136-145); Total Protein 7.4 g/dL (6.4-8.2); Triglyceride 303 mg/dL (<150)
[2021-10-26 13:01] LABS: Diff Comment RBC Morph Reviewed; Macrocytosis 2+
[2021-10-29 09:04] LABS: CA 125 8 U/mL (<30)
== END 2021-10-26 02:25 | disposition home or self-care (01) ==
LOC: LBO 02:25
PROVIDERS: PCP Nurse Practitioner; Visit Provider Obstetrics & Gynecology Gynecologic Oncology
DX: E78.5 Hyperlipidemia, unspecified (principal); Z85.43 Personal history of malignant neoplasm of ovary
CPT/HCPCS: 36415; 80053; 80061; 86304; 85025

== ENCOUNTER 2021-10-26 07:35 | Outpatient (CLI) | payer OTHER, SELFPAY | END 2021-10-26 07:36 | disposition home or self-care (01) | LOC: PUVA 07:36 | PROVIDERS: PCP Nurse Practitioner; Visit Provider Dermatology | DX: L80 Vitiligo (principal) | CPT/HCPCS: 96900 ==

== ENCOUNTER 2021-10-30 09:28 | Outpatient (CLI) | payer OTHER, SELFPAY | END 2021-10-30 09:29 | disposition home or self-care (01) | LOC: PUVA 09:28 | PROVIDERS: PCP Nurse Practitioner; Visit Provider Dermatology | DX: L80 Vitiligo (principal) | CPT/HCPCS: 96900 ==

== ENCOUNTER 2021-11-02 07:28 | Outpatient (CLI) | payer OTHER, SELFPAY | END 2021-11-02 07:29 | disposition home or self-care (01) | PROVIDERS: PCP Nurse Practitioner; Visit Provider Dermatology ==

== ENCOUNTER 2021-11-06 08:36 | Outpatient (CLI) | payer OTHER, SELFPAY | END 2021-11-06 08:37 | disposition home or self-care (01) | LOC: PUVA 08:37 | PROVIDERS: PCP Nurse Practitioner; Visit Provider Dermatology | DX: L80 Vitiligo (principal) | CPT/HCPCS: 96900 ==

== ENCOUNTER 2021-11-09 07:37 | Outpatient (CLI) | payer OTHER, SELFPAY | END 2021-11-09 07:38 | disposition home or self-care (01) | LOC: PUVA 07:37 | PROVIDERS: PCP Nurse Practitioner; Visit Provider Dermatology | DX: L80 Vitiligo (principal) | CPT/HCPCS: 96900 ==

== ENCOUNTER 2021-11-13 07:55 | Outpatient (CLI) | payer OTHER, SELFPAY | END 2021-11-13 07:56 | LOC: PUVA 11-19 07:55 | PROVIDERS: PCP Nurse Practitioner; Visit Provider Dermatology | DX: L80 Vitiligo (principal) | CPT/HCPCS: 96900 ==

== ENCOUNTER 2021-11-16 10:26 | Outpatient (CLI) | payer OTHER, SELFPAY | END 2021-11-16 10:27 | disposition home or self-care (01) | LOC: PUVA 10:26 | PROVIDERS: PCP Nurse Practitioner; Visit Provider Dermatology | DX: L80 Vitiligo (principal) | CPT/HCPCS: 96900 ==

== ENCOUNTER 2021-11-23 07:51 | Outpatient (CLI) | payer OTHER, SELFPAY | END 2021-11-23 07:52 | disposition home or self-care (01) | LOC: PUVA 07:52 | PROVIDERS: PCP Nurse Practitioner; Visit Provider Dermatology | DX: L80 Vitiligo (principal) | CPT/HCPCS: 96900 ==

== ENCOUNTER 2021-11-30 07:56 | Outpatient (CLI) | payer OTHER, SELFPAY | END 2021-11-30 07:57 | disposition home or self-care (01) | LOC: PUVA 07:56 | PROVIDERS: PCP Nurse Practitioner; Visit Provider Dermatology | DX: L80 Vitiligo (principal) | CPT/HCPCS: 96900 ==

== ENCOUNTER 2021-12-04 09:05 | Outpatient (CLI) | payer OTHER, SELFPAY | END 2021-12-04 09:06 | disposition home or self-care (01) | LOC: PUVA 09:06 | PROVIDERS: PCP Nurse Practitioner; Visit Provider Dermatology | DX: L80 Vitiligo (principal) | CPT/HCPCS: 96900 ==

== ENCOUNTER 2021-12-11 07:11 | Outpatient (CLI) | payer OTHER, SELFPAY | END 2021-12-11 07:12 | disposition home or self-care (01) | LOC: PUVA 07:11 | PROVIDERS: PCP Nurse Practitioner; Visit Provider Dermatology | DX: L80 Vitiligo (principal) | CPT/HCPCS: 96900 ==

== ENCOUNTER 2021-12-14 07:38 | Outpatient (CLI) | payer OTHER, SELFPAY | END 2021-12-14 07:39 | disposition home or self-care (01) | LOC: PUVA 07:38 | PROVIDERS: PCP Nurse Practitioner; Visit Provider Dermatology | DX: L80 Vitiligo (principal) | CPT/HCPCS: 96900 ==

== ENCOUNTER 2021-12-19 16:51 | Outpatient (CLI) | payer OTHER, SELFPAY | END 2021-12-19 16:52 | disposition home or self-care (01) | LOC: PUVA 16:52 | PROVIDERS: PCP Nurse Practitioner; Visit Provider Dermatology | DX: L80 Vitiligo (principal) | CPT/HCPCS: 96900 ==

== ENCOUNTER 2021-12-25 08:37 | Outpatient (CLI) | payer OTHER, SELFPAY | END 2021-12-25 08:38 | disposition home or self-care (01) | LOC: PUVA 08:37 | PROVIDERS: PCP Nurse Practitioner; Visit Provider Dermatology | DX: L80 Vitiligo (principal) | CPT/HCPCS: 96900 ==

== ENCOUNTER 2021-12-28 12:24 | Outpatient (CLI) | payer OTHER, SELFPAY | END 2021-12-28 12:25 | disposition home or self-care (01) | LOC: PUVA 01-04 12:24 | PROVIDERS: PCP Nurse Practitioner; Visit Provider Dermatology | DX: L80 Vitiligo (principal) | CPT/HCPCS: 96900 ==

== ENCOUNTER 2022-01-01 12:24 | Outpatient (CLI) | payer OTHER, SELFPAY | END 2022-01-01 12:25 | disposition home or self-care (01) | LOC: PUVA 01-04 12:24 | PROVIDERS: PCP Nurse Practitioner; Visit Provider Dermatology | DX: L80 Vitiligo (principal) | CPT/HCPCS: 96900 ==

== ENCOUNTER 2022-01-04 12:25 | Outpatient (CLI) | payer OTHER, SELFPAY | END 2022-01-04 12:26 | disposition home or self-care (01) | LOC: PUVA 12:25 | PROVIDERS: PCP Nurse Practitioner; Visit Provider Dermatology | DX: L80 Vitiligo (principal) | CPT/HCPCS: 96900 ==

== ENCOUNTER 2022-01-08 14:30 | Outpatient (CLI) | payer OTHER, SELFPAY | END 2022-01-08 14:31 | disposition home or self-care (01) | LOC: PUVA 01-11 14:30 | PROVIDERS: PCP Nurse Practitioner; Visit Provider Dermatology | DX: L80 Vitiligo (principal) | CPT/HCPCS: 96900 ==

== ENCOUNTER 2022-01-11 14:34 | Outpatient (CLI) | payer OTHER, SELFPAY | END 2022-01-11 14:35 | disposition home or self-care (01) | LOC: PC 14:35 | PROVIDERS: PCP Nurse Practitioner; Visit Provider Dermatology | DX: L80 Vitiligo (principal) | CPT/HCPCS: 96900 ==

== ENCOUNTER 2022-01-15 09:58 | Outpatient (CLI) | payer OTHER, SELFPAY | END 2022-01-15 09:59 | disposition home or self-care (01) | LOC: PUVA 09:58 | PROVIDERS: PCP Nurse Practitioner; Visit Provider Dermatology | DX: L80 Vitiligo (principal) | CPT/HCPCS: 96900 ==

== ENCOUNTER 2022-01-18 10:03 | Outpatient (CLI) | payer OTHER, SELFPAY | END 2022-01-18 10:04 | disposition home or self-care (01) | PROVIDERS: PCP Nurse Practitioner; Visit Provider Dermatology | DX: L80 Vitiligo (principal) | CPT/HCPCS: 96900 ==

== ENCOUNTER 2022-01-22 10:11 | Outpatient (CLI) | payer OTHER, SELFPAY | END 2022-01-22 10:12 | disposition home or self-care (01) | LOC: PUVA 10:12 | PROVIDERS: PCP Nurse Practitioner; Visit Provider Dermatology | DX: L80 Vitiligo (principal) | CPT/HCPCS: 96900 ==

== ENCOUNTER 2022-01-25 10:07 | Outpatient (CLI) | payer OTHER, SELFPAY | END 2022-01-25 10:08 | disposition home or self-care (01) | LOC: PUVA 10:07 | PROVIDERS: PCP Nurse Practitioner; Visit Provider Dermatology | DX: L80 Vitiligo (principal) | CPT/HCPCS: 96900 ==

== ENCOUNTER 2022-02-12 15:29 | Outpatient (REF) | payer OTHER, SELFPAY ==
[2022-02-12 13:59] LABS: HCT 36.9 % (36.0-46.0); HGB 12.5 g/dL (11.2-15.7); MCHC 33.9 % (32.0-36.0); MCV 109 fL (80-95); MPV 8.8 fL (8.0-11.0); Platelet Count 445 10^3/uL (130-400); RBC 3.38 10^6/uL (3.93-5.22); RDW 12.5 % (11.7-14.6); RDW-SD 49.4 fL; WBC 8.97 10^3/uL (4.4-10.8)
== END 2022-02-12 15:30 | disposition home or self-care (01) ==
LOC: LBN 15:29
PROVIDERS: PCP Nurse Practitioner; Visit Provider Nurse Practitioner
DX: R42 Dizziness and giddiness (principal)
CPT/HCPCS: 85027

== ENCOUNTER 2022-03-20 11:02 | Outpatient (RCR) | payer OTHER, SELFPAY | END 2022-03-20 23:59 | disposition home or self-care (01) | LOC: CR 11:02 | PROVIDERS: PCP Nurse Practitioner; Visit Provider Internal Medicine Cardiovascular Disease | DX: Z95.2 Presence of prosthetic heart valve (principal); Z51.89 Encounter for other specified aftercare | CPT/HCPCS: S9472 ==

== ENCOUNTER 2022-04-19 10:41 | Outpatient (RCR) | payer OTHER, SELFPAY | END 2022-04-20 23:59 | disposition home or self-care (01) | LOC: CR 10:41 | PROVIDERS: PCP Nurse Practitioner; Visit Provider Internal Medicine Cardiovascular Disease | DX: Z95.2 Presence of prosthetic heart valve (principal); Z51.89 Encounter for other specified aftercare | CPT/HCPCS: S9472 ==

== ENCOUNTER 2022-05-20 10:18 | Outpatient (RCR) | payer OTHER, SELFPAY | END 2022-05-21 23:59 | disposition home or self-care (01) | LOC: CR 10:18 | PROVIDERS: PCP Nurse Practitioner; Visit Provider Internal Medicine Cardiovascular Disease | DX: Z95.2 Presence of prosthetic heart valve (principal); Z51.89 Encounter for other specified aftercare | CPT/HCPCS: S9472 ==

== ENCOUNTER 2022-05-21 03:10 | Outpatient (CLI) | payer OTHER, SELFPAY ==
[2022-05-21 09:23] LABS: Calculated LDL 93 mg/dL (<100); Cholesterol 197 mg/dL (<200); HDL Cholesterol 87 mg/dL (40-60); Triglyceride 85 mg/dL (<150)
[2022-05-21 09:49] LABS: FREE T4 0.54 ng/dL (0.76-1.46)
[2022-05-21 09:55] LABS: Lab Add On Test DONE
[2022-05-22 10:39] LABS: CA 125 7 U/mL (<30)
== END 2022-05-21 03:11 | disposition home or self-care (01) ==
LOC: LBO 03:10
PROVIDERS: PCP Nurse Practitioner; Visit Provider Nurse Practitioner
DX: E78.5 Hyperlipidemia, unspecified (principal); I10 Essential (primary) hypertension; C56.1 Malignant neoplasm of right ovary; C56.2 Malignant neoplasm of left ovary
CPT/HCPCS: 36415; 80061; 86304; 84439; 84443

== ENCOUNTER 2022-06-12 10:35 | Outpatient (RCR) | payer OTHER, SELFPAY | END 2022-06-18 23:59 | disposition home or self-care (01) | LOC: CR 10:35 | PROVIDERS: PCP Nurse Practitioner; Visit Provider Internal Medicine Cardiovascular Disease | DX: Z95.2 Presence of prosthetic heart valve (principal); Z51.89 Encounter for other specified aftercare | CPT/HCPCS: S9472 ==

== ENCOUNTER 2022-06-19 09:46 | Outpatient (REF) | payer OTHER, SELFPAY ==
[2022-06-19 15:30] LABS: COVID-19 PCR Negative (Negative); Influenza A PCR Negative (Negative); Influenza B PCR Negative (Negative); RSV PCR Negative (Negative)
[2022-06-19 15:32] LABS: Source Nasopharynx
== END 2022-06-19 09:47 | disposition home or self-care (01) ==
LOC: LBN 09:46
PROVIDERS: PCP Nurse Practitioner; Referring Provider Nurse Practitioner; Visit Provider Nurse Practitioner
DX: R05.8 Other specified cough (principal); R53.83 Other fatigue; Z20.822 Contact with and (suspected) exposure to COVID-19
CPT/HCPCS: 87637

== ENCOUNTER 2022-07-01 10:04 | Outpatient (RCR) | payer OTHER, SELFPAY | END 2022-07-19 23:59 | disposition home or self-care (01) | LOC: CR 10:04 | PROVIDERS: PCP Nurse Practitioner; Visit Provider Internal Medicine Cardiovascular Disease | DX: Z95.2 Presence of prosthetic heart valve (principal) | CPT/HCPCS: S9472 ==

== ENCOUNTER 2022-07-17 02:12 | Outpatient (CLI) | payer OTHER, SELFPAY ==
[2022-07-17 12:34] LABS: Abs Immature Grans 0.03 10^3/uL (0.0-0.06); Absolute Basophil Count 0.08 10^3/uL (0.0-0.2); Absolute Lymphocyte Count 1.47 10^3/uL (1.2-3.4); Absolute Monocyte Count 0.53 10^3/uL (0.1-0.8); Absolute Neutrophil Count 4.84 10^3/uL (1.2-6.7); Basophils % 1.1; Eosinophils % 2.8; HCT 38.2 % (36.0-46.0); HGB 13.5 g/dL (11.2-15.7); Immature Grans % 0.4; Lymphocytes % 20.6; MCH 37.1 pg (27.0-33.0); MCHC 35.3 % (32.0-36.0); MCV 105 fL (80-95); MPV 8.8 fL (8.0-11.0); Monocytes % 7.4; Neutrophils % 67.7; Platelet Count 219 10^3/uL (130-400); RBC 3.64 10^6/uL (3.93-5.22); RDW 11.7 % (11.7-14.6); RDW-SD 45.1 fL; WBC 7.15 10^3/uL (4.4-10.8)
[2022-07-17 12:59] LABS: ALT 26 U/L (14-59); AST 20 U/L (15-37); Alkaline Phosphatase 99 U/L (46-116); Anion Gap 10.5 mmol/L (3-11); BUN 13 mg/dL (7-18); Bilirubin, Total 1.2 mg/dL (0.2-1.0); CO2 24.5 mmol/L (21.0-32.0); CREATININE 0.9 mg/dL (0.55-1.02); Calcium 9.4 mg/dL (8.5-10.1); Chloride 100 mmol/L (98-107); Estimated GFR 72.73 (mL/min/1.73m2); Glucose 88 mg/dL (74-106); Potassium 4.3 mmol/L (3.5-5.1); Sodium 135 mmol/L (136-145); Total Protein 7.1 g/dL (6.4-8.2)
[2022-07-19 09:49] LABS: CA 125 8 U/mL (<30)
[2022-07-22 11:01] LABS: FREE T4 1.17 ng/dL (0.76-1.46)
[2022-07-22 11:05] LABS: TSH 5.63 uIU/mL (0.36-3.74)
== END 2022-07-17 02:13 | disposition home or self-care (01) ==
PROVIDERS: PCP Nurse Practitioner; Visit Provider Obstetrics & Gynecology Gynecologic Oncology
DX: Z85.43 Personal history of malignant neoplasm of ovary (principal)
CPT/HCPCS: 36415; 80053; 86304; 84439; 84443; 85025

== ENCOUNTER 2022-07-17 10:52 | Outpatient (RCR) | payer SELFPAY ==
[2022-07-05 10:11] VITALS: BP 112/76; PULSE 74
[2022-07-10 11:12] VITALS: BP 141/84; PULSE 63
== END 2022-07-19 23:59 | disposition home or self-care (01) ==
LOC: CR 10:52
PROVIDERS: PCP Nurse Practitioner; Visit Provider Internal Medicine Cardiovascular Disease

== ENCOUNTER 2022-08-02 10:58 | Outpatient (RCR) | payer SELFPAY ==
[2022-07-20 00:23] VITALS: BP 141/84; PULSE 63
[2022-07-26 11:09] VITALS: BP 128/81; PULSE 62
[2022-08-02 10:56] VITALS: BP 113/71; PULSE 63
== END 2022-08-18 23:59 | disposition home or self-care (01) ==
LOC: CR 10:58
PROVIDERS: PCP Nurse Practitioner; Visit Provider Internal Medicine Cardiovascular Disease
DX: R69 Illness, unspecified (principal)

== ENCOUNTER 2022-09-04 10:58 | Outpatient (RCR) | payer SELFPAY ==
[2022-08-19 00:20] VITALS: BP 113/71; PULSE 63
[2022-08-21 15:32] VITALS: BP 122/83; PULSE 63
[2022-08-23 11:04] VITALS: BP 147/79; PULSE 66
[2022-08-28 11:25] VITALS: BP 112/75; PULSE 66
[2022-09-04 13:36] VITALS: BP 130/86; PULSE 68
== END 2022-09-18 23:59 | disposition home or self-care (01) ==
LOC: CR 10:58
PROVIDERS: PCP Nurse Practitioner; Visit Provider Internal Medicine Cardiovascular Disease

== ENCOUNTER 2022-11-18 07:50 | Outpatient (CLI) | payer OTHER, SELFPAY | END 2022-11-18 07:51 | disposition home or self-care (01) | LOC: PUVA 07:51 | PROVIDERS: PCP Nurse Practitioner; Visit Provider Dermatology | DX: L80 Vitiligo (principal) | CPT/HCPCS: 96900 ==

== ENCOUNTER 2022-11-21 12:07 | Outpatient (REF) | payer OTHER, SELFPAY ==
[2022-11-21 15:15] LABS: Abs Immature Grans 0.02 10^3/uL (0.0-0.06); Absolute Basophil Count 0.08 10^3/uL (0.0-0.2); Absolute Eosinophil Count 0.32 10^3/uL (0.0-0.7); Absolute Lymphocyte Count 1.35 10^3/uL (1.2-3.4); Absolute Monocyte Count 0.51 10^3/uL (0.1-0.8); Absolute Neutrophil Count 3.59 10^3/uL (1.2-6.7); Basophils % 1.4; Eosinophils % 5.5; HCT 41.5 % (36.0-46.0); HGB 14.6 g/dL (11.2-15.7); Immature Grans % 0.3; MCH 36.7 pg (27.0-33.0); MCHC 35.2 % (32.0-36.0); MCV 104 fL (80-95); MPV 9.3 fL (8.0-11.0); Monocytes % 8.7; Neutrophils % 61.1; Platelet Count 226 10^3/uL (130-400); RBC 3.98 10^6/uL (3.93-5.22); RDW 10.8 % (11.7-14.6); RDW-SD 41.7 fL; WBC 5.87 10^3/uL (4.4-10.8)
[2022-11-21 15:35] LABS: ALT 25 U/L (14-59); AST 21 U/L (15-37); Albumin 4.2 g/dL (3.4-5.0); Alkaline Phosphatase 98 U/L (46-116); Anion Gap 6.9 mmol/L (3-11); BUN 16 mg/dL (7-18); Bilirubin, Total 1.2 mg/dL (0.2-1.0); CO2 28.1 mmol/L (21.0-32.0); CREATININE 0.8 mg/dL (0.55-1.02); Calcium 9.8 mg/dL (8.5-10.1); Chloride 102 mmol/L (98-107); Estimated GFR 83.26 (mL/min/1.73m2); FREE T4 0.99 ng/dL (0.76-1.46); Glucose 87 mg/dL (74-106); Potassium 4.6 mmol/L (3.5-5.1); Sodium 137 mmol/L (136-145); TSH 5.07 uIU/mL (0.36-3.74); Total Protein 7.2 g/dL (6.4-8.2)
[2022-11-21 15:45] LABS: Vitamin D 25 Total 71.2 ng/mL (30-100)
[2022-11-21 18:42] LABS: Vitamin B12 559 pg/mL (193-986)
[2022-11-22 12:18] LABS: Lyme Ab w Rflx to Lyme Confirm Negative (Negative)
[2022-11-23 23:50] LABS: Anaplasma phagocytophilum Negative (Negative); B. miyamotoi PCR Negative (Negative); Babesia divergens/MO-1 Negative (Negative); Babesia duncani Negative (Negative); Babesia microti Negative (Negative); Ehrlichia chaffeensis Negative (Negative); Ehrlichia ewingii/canis Negative (Negative); Ehrlichia muris eauclairensis Negative (Negative)
== END 2022-11-21 12:08 | disposition home or self-care (01) ==
LOC: LBN 12:07
PROVIDERS: PCP Nurse Practitioner; Visit Provider Nurse Practitioner
DX: E03.9 Hypothyroidism, unspecified (principal); E55.9 Vitamin D deficiency, unspecified; R53.83 Other fatigue; J45.909 Unspecified asthma, uncomplicated; F41.8 Other specified anxiety disorders; Z79.899 Other long term (current) drug therapy; I10 Essential (primary) hypertension; Z85.43 Personal history of malignant neoplasm of ovary
CPT/HCPCS: 80053; 82306; 87798; 82607; 84439; 84443; 85025; 86618

== ENCOUNTER 2022-11-22 07:12 | Outpatient (CLI) | payer OTHER, SELFPAY | END 2022-11-22 07:13 | disposition home or self-care (01) | LOC: PUVA 07:12 | PROVIDERS: PCP Nurse Practitioner; Visit Provider Dermatology | DX: L80 Vitiligo (principal) | CPT/HCPCS: 96900 ==

== ENCOUNTER 2022-11-25 07:47 | Outpatient (CLI) | payer OTHER, SELFPAY | END 2022-11-25 07:48 | disposition home or self-care (01) | LOC: PUVA 12-02 07:48 | PROVIDERS: PCP Nurse Practitioner; Visit Provider Dermatology | DX: L80 Vitiligo (principal) | CPT/HCPCS: 96900 ==

== ENCOUNTER → 2022-11-29 01:04 | Outpatient (CLI) | payer OTHER, SELFPAY ==
--- NOTE | 2022-11-29 09:28 | DI.MAMMO_ITS ---
Exam(s) MAMMO SCREENING EXAM: MAMMO SCREENING CLINICAL HISTORY: screening,Z12.39 TECHNIQUE: Mammograms were interpreted according to the usual protocol including computer analysis w [employer] CAD system, tomosynthesis and C-view imaging. COMPARISON: 2015 through 2020 FINDINGS: The breasts are composed of scattered fibroglandular densities, Breast Density category B. No suspicious masses or suspicious microcalcifications are seen. No skin thickening or abnormal axillary lymph nodes are seen. There has been no significant change from prior exams. IMPRESSION: BI-RADS Category 1, Negative mammogram Yearly screening mammography is recommended. Breast Density - Category B, scattered fibroglandular densities. A negative radiographic report should not delay biopsy if a dominant or clinically suspicious mass is present. Up to ten percent of cancers are not identified on mammography. A negative report may reinforce clinical impression. Adenosis and dense breasts may obscure an underlying neoplasm. False positive reports average 6 to 10%. Patient will receive a letter notifying them of these results.
== END ==
PROVIDERS: PCP Nurse Practitioner; Visit Provider Nurse Practitioner
DX: Z12.31 Encounter for screening mammogram for malignant neoplasm of breast (principal)
CPT/HCPCS: 77063; 77067

== ENCOUNTER 2022-11-29 07:48 | Outpatient (CLI) | payer OTHER, SELFPAY | END 2022-11-29 07:49 | disposition home or self-care (01) | LOC: PUVA 12-02 07:48 | PROVIDERS: PCP Nurse Practitioner; Visit Provider Dermatology | DX: L80 Vitiligo (principal) | CPT/HCPCS: 96900 ==

== ENCOUNTER 2022-12-02 07:31 | Outpatient (CLI) | payer OTHER, SELFPAY | END 2022-12-02 07:32 | disposition home or self-care (01) | LOC: PUVA 07:31 | PROVIDERS: PCP Nurse Practitioner; Visit Provider Dermatology | DX: L80 Vitiligo (principal) | CPT/HCPCS: 96900 ==

== ENCOUNTER 2022-12-06 07:15 | Outpatient (CLI) | payer OTHER, SELFPAY | END 2022-12-06 07:16 | disposition home or self-care (01) | LOC: PUVA 07:15 | PROVIDERS: PCP Nurse Practitioner; Visit Provider Dermatology | DX: L80 Vitiligo (principal) | CPT/HCPCS: 96900 ==

== ENCOUNTER 2022-12-09 07:19 | Outpatient (CLI) | payer OTHER, SELFPAY | END 2022-12-09 07:20 | disposition home or self-care (01) | LOC: PUVA 07:19 | PROVIDERS: PCP Nurse Practitioner; Visit Provider Dermatology | DX: L80 Vitiligo (principal) | CPT/HCPCS: 96900 ==

== ENCOUNTER 2022-12-13 07:17 | Outpatient (CLI) | payer OTHER, SELFPAY | END 2022-12-13 07:18 | disposition home or self-care (01) | LOC: PUVA 07:17 | PROVIDERS: PCP Nurse Practitioner; Visit Provider Dermatology | DX: L80 Vitiligo (principal) | CPT/HCPCS: 96900 ==

== ENCOUNTER 2022-12-16 07:08 | Outpatient (CLI) | payer OTHER, SELFPAY | END 2022-12-16 07:09 | disposition home or self-care (01) | LOC: PUVA 07:09 | PROVIDERS: PCP Nurse Practitioner; Visit Provider Dermatology | DX: L80 Vitiligo (principal) | CPT/HCPCS: 96900 ==

== ENCOUNTER 2022-12-20 07:19 | Outpatient (CLI) | payer OTHER, SELFPAY | END 2022-12-20 07:20 | disposition home or self-care (01) | LOC: PUVA 07:19 | PROVIDERS: PCP Nurse Practitioner; Visit Provider Dermatology | DX: L80 Vitiligo (principal) | CPT/HCPCS: 96900 ==

== ENCOUNTER 2022-12-27 07:07 | Outpatient (CLI) | payer OTHER, SELFPAY | END 2022-12-27 07:08 | disposition home or self-care (01) | LOC: PUVA 07:07 | PROVIDERS: PCP Nurse Practitioner; Visit Provider Dermatology | DX: L80 Vitiligo (principal) | CPT/HCPCS: 96900 ==

== ENCOUNTER 2022-12-30 07:03 | Outpatient (CLI) | payer OTHER, SELFPAY | END 2022-12-30 07:04 | disposition home or self-care (01) | LOC: PUVA 07:04 | PROVIDERS: PCP Nurse Practitioner; Visit Provider Dermatology | DX: L80 Vitiligo (principal) | CPT/HCPCS: 96900 ==

== ENCOUNTER → 2023-08-02 09:58 | Outpatient (REF) | payer MEDICARE, OTHER, SELFPAY ==
--- NOTE | 2023-08-02 | DI.RAD_ITS ---
Exam(s) XR CHEST 2V PA LATERAL EXAM: XR CHEST 2V PA LATERAL CLINICAL HISTORY: COUGH TECHNIQUE: 2D digital imaging was performed of the chest. Two images were obtained. PA and lateral views were obtained. COMPARISON: CR XR CHEST 2V PA LATERAL from 04/17/2018 FINDINGS: MEDIASTINUM: Normal. HEART: Normal. There is an aortic valve prosthesis. PULMONARY VASCULATURE: Normal. LUNGS: Clear. PLEURAL SPACE: No pleural effusion or pneumothorax. BONE:Within normal limits for the patient's age. Sternal wires are in place. OTHER FINDINGS:Normal. IMPRESSION: No acute pulmonary findings. DATA REPOSITORY: RADIATION DOSE DELIVERED:
--- NOTE | 2023-08-02 10:38 | DI.VRAD_ITS ---
PROCEDURE INFORMATION: Exam: XR Chest Exam date and time: 08/02/2023 10:10 AM Age: 62 years old Clinical indication: Cough; Prior surgery; Surgery date: 6+ months; Surgery type: Heart TECHNIQUE: Imaging protocol: Radiologic exam of the chest. Views: 2 views. COMPARISON: CT CHEST/ABD/PEL W 02/01/2021 1:52 PM FINDINGS: Lungs: Unremarkable. No consolidation. Pleural spaces: Unremarkable. No pleural effusion. No pneumothorax. Heart/Mediastinum: No cardiomegaly. The aorta is normal in diameter. Prior sternotomy for aortic valve replacement. Bones/joints: See Heart/Mediastinum finding. IMPRESSION: No acute findings. Dictated and Authenticated by: Rayray Olivarez MD. Ordering:DARIEL WINN MD
== END ==
LOC: DI 09:58
PROVIDERS: PCP Nurse Practitioner; Visit Provider Nurse Practitioner Family
DX: R05.9 Cough, unspecified (principal)
CPT/HCPCS: 71046

== ENCOUNTER 2023-08-04 11:36 | Outpatient (REF) | payer MEDICARE, SELFPAY ==
[2023-08-04 16:42] LABS: COVID-19 PCR Negative (Negative); Influenza A PCR Negative (Negative); Influenza B PCR Negative (Negative); RSV PCR Negative (Negative)
[2023-08-04 16:50] LABS: Source Nasopharynx
== END 2023-08-04 11:37 | disposition home or self-care (01) ==
LOC: LBN 11:36
PROVIDERS: PCP Nurse Practitioner; Visit Provider Nurse Practitioner
DX: R06.2 Wheezing (principal); R05.9 Cough, unspecified
CPT/HCPCS: 87637

== ENCOUNTER 2023-08-13 05:03 | Outpatient (CLI) | payer MEDICARE, SELFPAY ==
[2023-08-13 19:27] LABS: CA 125 13 U/mL (<30)
== END 2023-08-13 05:04 | disposition home or self-care (01) ==
PROVIDERS: PCP Nurse Practitioner; Referring Provider Nurse Practitioner; Visit Provider Nurse Practitioner
DX: Z85.43 Personal history of malignant neoplasm of ovary (principal)
CPT/HCPCS: 36415; 86304

== ENCOUNTER 2023-09-13 22:05 | Observation (INO) | payer MEDICARE, SELFPAY ==
[2023-09-13] VITALS (14 sets, daily range): BP systolic 141–206; BP diastolic 101–169; PULSE 80–139; RESP 12–29; TEMP 36.8; O2SAT 99
--- NOTE | 2023-09-13 22:00 | RT.EKG_ITS ---
APPROVED REPORT Exam: Resting ECG Reason for Exam: afib Patient Location: E HR:111 bpm ECG Measurements Heart Rate 111 AXIS WV [id number] P [id number] QRSd 100 QRS -44 QT 358 T 102 QTc 487 Conclusion Atrial fibrillation...? atrial activity Left axis deviation...QRS axis (-30,-90) Anteroseptal infarct, age indeterminate...Q >35mS, T neg, V1-V2 no ST segment or T wave abnormalities to suggest occlusive MO
--- NOTE | 2023-09-13 22:10 | ED.GENADUL_ITS ---
Discharge Plan Disposition Patient Disposition: Admit to [facility] Condition: Serious Discharge Details Chief Complaint: Arrhythmia Clinical Impression: Heart failure, A-fib Admit Date/Time: 09/14/23 02:24 Admit Provider: Erick Bryan Attending Provider: Erick Bryan Primary Care Provider: Evelyne Hunt ED Provider: Jody De Santiago Discharge Data Discharge Date/Time-TO BE ENTERED AT DEPARTURE: 09/14/23 04:07 HPI General Mode of arrival: EMS . Date/Time Provider Initiated Documentation: 09/13/23 22:10 . Limitations to Documentation: no limitations . Information obtained by: patient, EMS and old records reviewed . HPI Narrative: 62yo F with hx ovarian cancer, aortic stenosis and regurg s/p AVR (2021), SVT with unsuccessfull ablation, presenting for palpitations. Was previously on amiodarone and Eliquis for possible afib, had Zio for a time which showed no episodes so these were discontinued. This evening began to feel unwell, diaphoretic, lightheaded, palpitations, short of breath and so called EMS; EMS found her to be in afib with rate in 110's. She did take her evening metoprolol already. No chest pain at any point. Feeling somewhat better now but still having palpitations and some lightheadedness. She is otherwise in her usual state of health with no fevers, chills, rash, nausea, vomiting, abdominal pain, dysuria, hematuria, pleurtic pain, LE edema, numbness, weakness, or other concerns. Related Data Home Medications Medication Instructions Recorded Confirmed aspirin 81 mg tablet,delayed 81 mg PO DAILY 02/22/22 09/13/23 release (Adult Aspirin Regimen) cholecalciferol (vitamin D3) 50 50 mcg PO DAILY 06/19/22 09/13/23 mcg (2,000 unit) capsule ebfvnfkdxnwa-Me-nrid-minerals 1 tab PO DAILY 06/19/22 09/13/23 metoprolol succinate 50 mg 50 mg PO HS 11/18/22 09/13/23 tablet,extended release 24 hr atorvastatin 10 mg tablet 10 mg PO HS #90 tabs 05/26/23 09/13/23 trazodone 50 mg tablet See Rx Instructions .Route 06/23/23 09/13/23 .COMPLEX #180 tabs bupropion HCl 300 mg 24 hr tablet, 300 mg PO QAM #90 tabs 08/04/23 09/13/23 extended release (Wellbutrin XL) Previous Rx's Medication Instructions Recorded atorvastatin 10 mg tablet 10 mg PO HS #90 tabs 05/26/23 trazodone 50 mg tablet See Rx Instructions .Route 06/23/23 .COMPLEX #180 tabs bupropion HCl 300 mg 24 hr tablet, 300 mg PO QAM #90 tabs 08/04/23 extended release (Wellbutrin XL) Allergies Allergy/AdvReac Type Severity Reaction Status Date / Time penicillin V Allergy Severe swollen Verified 09/13/23 22:14 lips, couldnt breath paroxetine Allergy Unknown unknown Verified 09/13/23 22:14 paclitaxel [From Taxol] AdvReac Intermediate Other (See Verified 09/13/23 22:14 Comment) sertraline AdvReac Intermediate unknown Verified 09/13/23 22:14 venlafaxine AdvReac Intermediate unknown Verified 09/13/23 22:14 betamethasone AdvReac anxious, Verified 09/13/23 22:14 irritated, raceing heart General KADY: 2 Review of Systems Narrative: see HPI Exam Narrative Exam Narrative: General: Alert, well appearing, well nourished, in no acute distress. Head: Normocephalic, atraumatic Neck: Trachea midline, ?Neck supple. Cardiac: ?Irregular, HR 110's Resp: No respiratory distress. CTAB. Abd: ?Soft, non-distended, nontender : ?No suprapubic tenderness. Extremities: ?No deformities.? No peripheral edema. Neurologic: GCS 15. ? Moves all extremities freely against gravity Medical Decision Making 62yo F with hx ovarian cancer, aortic stenosis and regurg s/p AVR (2021), SVT with unsuccessfull ablation, presenting for palpitations. History from patient, EMS, and [facility] cardiology consult note 07/16/23. Was previously on amiodarone and Eliquis for possible afib, had Zio for a time which showed no episodes so these were discontinued. This evening began to feel unwell, diaphoretic, lightheaded, palpitations, short of breath and so called EMS; EMS found her to be in afib with rate in 110's. 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 No chest pain at any po int. Hypertensive on arrival 202/169 with HR in 113; on my exam shortly after arrival she is non-toxic appearing, not in distress, HR in 110's with clear lungs and BP 160's/110. EKG shows afib with rate in 110's, no no ST segment or T wave abnormalities to suggest occlusive ME. Will give additional dose of 50mg PO metoprolol here for rate control and blood pressure management. Will evalaute for provoking causes with labs, UA, CXR given shortness of breath. -CXR independently reviewed, no focal pneumonia or pneumothorax on my view, agree with radiology read below. -Labs reviewed as below, CBC reassuring with no leukocytosis or anemia, CMP with mild hyponatremia at 131 (pt asymptomatic with this; will give additional 500cc NS ), Mg slightly low (oral replacement ordered), TSH high with normal T4, dimer + (CTA ordered), troponin negative x 2. BNP markedly elevated at ~3500; pt with no history of heart failure and clinically not in failure at this time with clear lungs and normal O2 sat with no increased work of breathing and no shortness of breath at this time. UA not suggestive of infection. Respiratory viral swab negative. -CT independently reviewed, no large saddle embolus on my view, agree with radiology read below. -Repeat EKG remains afib, rate now in 90's. Discussed with [facility] cardiology Dr. David, including potential for cardioversion. With symptoms since this afternoon, she recommended against electrical or chemical cardioversion until atrial appendage able to be assessed for thrombus i.e. with TON. Advised restarting anticoagulation; options include 21 days of AC followed by cardioversion, or cardioversion sooner if atrial appendage clear. All recommended EP followup upon discharge. On reassessment patient continues to feel symptomatic, distressing palpitations, intermittent lightheadedness despite heart rate in 80's. BP 140's/80's. Given her age, significant prior cardiac history and valvular issues, and elevated BNP as well as persistent symptoms, warrants hospitalization for new-onset afib, TON when available, and possibly cardioversion. Discussed with hospitalist Dr. Bryan; patient accepted to medicine service. Requested bridging orders be placed including anticoagulation and code status which was done. Awaiting transfer to the floor. Medical Records Medical records reviewed: Yes I reviewed the patient's medical records. Imaging Data Radiologic Study: Radiologist's impression: IMPRESSION: The lungs are hyperinflated, consistent with underlying small airways disease. Radiologic Study #2: Imaging: CT Scan Radiologist's impression: IMPRESSION: 1. There is mild heterogeneous attenuation of the pulmonary parenchyma, consistent with mild air trapping from underlying small airways disease. 2. Scattered patchy ground-glass opacities within the lungs. These findings are nonspecific and may represent hypoventilatory change,edema, hemorrhage, or an infectious/inflammatory process (acute or chronic). The pulmonary arteries are normal in caliber. 3. No evidence of acute pulmonary embolism. Lab Data Lab results reviewed: Yes I reviewed the patient's lab results. Labs: Laboratory Tests Range/Units 09/13/23 09/13/23 09/13/23 22:20 22:30 22:50 WBC (4.4-10.8) 10^3/uL 6.34 RBC (3.93-5.22) 10^6/uL 4.07 Hgb (11.2-15.7) g/dL 13.8 Hct (36.0-46.0) % 39.6 MCV (80-95) fL 97 H MCH (27.0-33.0) pg 33.9 H MCHC (32.0-36.0) % 34.8 RDW (11.7-14.6) % 11.5 L Plt Count (130-400) 10^3/uL 220 MPV (8.0-11.0) fL 9.3 Immature Gran % % 0.5 Neutrophils % % 53.1 Lymphocytes % % 32.5 Monocytes % % 9.8 Eosinophils % % 3.2 Basophils % % 0.9 Nucleated RBC % (0.0-0.3) % 0.0 Absolute Neutrophils (1.2-6.7) 10^3/uL 3.37 Absolute Lymphocytes (1.2-3.4) 10^3/uL 2.06 Absolute Monocytes (0.1-0.8) 10^3/uL 0.62 Absolute Eosinophils (0.0-0.7) 10^3/uL 0.20 Absolute Basophils (0.0-0.2) 10^3/uL 0.06 PT (9.1-11.1) sec 10.5 INR (0.9-1.1) 1.0 APTT (23.6-32.8) sec 28.3 D-Dimer (<500) ng/mlFEU 1930 H Sodium Cancelled 131 L Potassium Cancelled 3.8 Chloride Cancelled 97 L Carbon Dioxide Cancelled 24.3 Anion Gap Cancelled 9.7 BUN Cancelled 13 Creatinine Cancelled 0.7 Est GFR (CKD-EPI 2020) Cancelled 97.72 Glucose Cancelled 102 Calcium Cancelled 8.9 Magnesium Cancelled 1.4 L Total Bilirubin Cancelled 0.8 AST Cancelled 25 ALT Cancelled 29 Alkaline Phosphatase Cancelled 92 Troponin I Cancelled < 50 Total Protein Cancelled 6.9 Albumin Cancelled 3.4 TSH Cancelled 5.71 H Free T4 (0.76-1.46) ng/dL 1.14 Urine Color (Yellow) Yellow Urine Clarity (Clear) Clear Urine pH (5-8) 7.0 Ur Specific [place] (1.005-1.025) 1.010 Urine Protein (Neg-Trace) mg/dL Negative Urine Ketones (Negative) mg/dL Negative Urine Blood (Negative) Negative Urine Nitrite (Negative) Negative Urine Bilirubin (Negative) Negative Urine Urobilinogen (Up to 0.2) mg/dL 0.2 Ur Leukocyte Esterase (Negative) Negative Urine Glucose (Negative) mg/dL Negative COVID-19 Source Nasopharynx SARS-CoV-2 (PCR) (Negative) Negative Influenza Type A (PCR) (Negative) Negative Influenza Type B (PCR) (Negative) Negative RSV (PCR) (Negative) Negative Quality:SDOH Health Related Social Needs: No Data to Display [facility] All Active Problems (Updated 09/14/23 @ 04:46 by Jody De Santiago MD) A-fib (Chronic) Heart failure (Acute) Irritable bowel syndrome with mixed bowel habits (Acute) [facility] 07/04/23 Bloating (Acute ~05/2023) 06/03/23 [facility] Acne vulgaris (Acute ~11/2022) 12/09/22 Derm History of ovarian cancer (Acute) Bilateral tinnitus (Acute) History of aortic valve replacement (Acute) 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 Wearing HOLTOR MONITOR, so no EKG done.. considering BB ik (01/28/20). 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 2019 FREDI/BSO debulking. 6 cycles of Taxol/Carbo/Avastin. 3 yrs ARPi stopped 10/07/22. Q6mo exam with CA 125. Pelvic pain (Acute) Onset 05/2019 left sided. Depression (Chronic 08/08/15) Long-term use of Wellbutrin, stopped and takes CBD oil. Has increased vitamin D supplements. Complex cyst of left ovary (Acute) Pelvic pain (Acute) Aortic stenosis, severe (Acute) Followed at [facility], echo 11/29/21 w/ mod regurgitation Cough (Acute) Muscle spasm (Acute) Subclinical hypothyroidism (Acute 11/03/12) TSH slightly elevated in 05/2012 Started on Levothyroxine 2013 levothyroxin stopped 11/21/[address] Cortes per pt inquiry, SVT (supraventricular tachycardia) (Acute 09/23/17) 09/17/17 [facility] Lichen sclerosus et atrophicus of the vulva (Chronic 10/20/17) No biopsy performed. Clobetasol improving symptoms Hyperlipidemia, unspecified (Acute 07/02/17) Hot flashes, menopausal (Acute 11/30/13) RX Gabapentin, 11/2013 Headache (Acute 06/06/11) Family history of cardiovascular disease (Acute 07/07/13) M Bx3; all >55yo Essential hypertension (Acute 06/06/15) Elevated blood pressure reading (Acute 08/29/11) ASCVD risk score: 1.6% DASH Plans on decreasing salt intake Elevated blood pressure reading without diagnosis of hypertension (Acute 08/29/11) ASCVD risk score: 1.6% DASH Plans on decreasing salt intake Dyspareunia (Acute 12/02/14) Atrophic vaginitis (Chronic 11/28/16) 10/2017 RX vaginal estrogen 10 mcg tablet 2x/week 02/2018 Rx for Estring. Aortic valve disorder (Acute 09/23/17) [facility] 09/17/17 Anxiety (Acute 12/23/12) Allergic rhinitis (Acute 11/03/12) History of Surgical Procedure (Chronic) a. sections x2. b. Laparoscopic appendectomy - 08/26/13. Appendiceal abscess (Acute) Hypothyroidism (Chronic) Medical History Notalgia paresthetica (~07/2022) 07/29/22 Derm shelter current use of anticoagulants with INR goal of 2.0-3.0 dc'd 03/2022 Ovarian mass, left 07/08/2019 12 x 8 cm cystic mass with solid components. Patient has been referred to [facility] [employer] [facility] oncology. 10/07/22 F/U Abnormal ultrasound of pelvis Lichen sclerosus et atrophicus of the vulva Involving the periclitoral region and labia minora treated with clobetasol 0.05% with good results. Surgical History H/O ventricular septal myectomy (~01/29/22) S/P AVR (~01/29/22) H/O colectomy S/P total abdominal hysterectomy S/P total abdominal hysterectomy and bilateral salpingo-oophorectomy (07/20/19) bilateral pelvic and paraaortic lymphadenectomy, infracolic omentectomy, rectosigmoid resection and reanastomosis section x2 Appendectomy (08/26/13) Dr. Rabago Family History Mother Personal history of malignant neoplasm cervical Father No problems noted. Brother Myocardial infarction Brother Myocardial infarction Brother Myocardial infarction Grandfather Myocardial infarction Social History Smoking/Tobacco Use Status: Former Tobacco Use Smoking risk assessment performed?: Yes Alcohol Intake: current Alcohol Intake frequency: a few times a month Alcohol type: wine Drug use: Never Substance use type: does not use Adopted: No Household members: spouse Housing: house Number of Children: 2 number of grandchildren: 3 current occupation: not working at this time What is your relationship status?: How often do you talk on the phone with friends or family?: three or more times per week How often do you get together with friends or relatives?: three or more times per week Panel score (0-1 are the most socially isolated patients): 2 What type of physical activity do you participate in: walking and additional Details: starting to get back into exercise, meditating daily Frequency: 5-6 times per week Seatbelt use: always Working smoke detector in home: Yes Fire extinguisher in home: Yes Carbon monox detector in home: Yes Do you feel safe at home: Yes Do you feel safe in your relationship?: Yes Female Reproductive History Menstrual control method: none Menopause type: natural Date of menopause: 04/21/10 History History 2 Para Hx # Term Pregnancies 2 Multiple births Hx # Pregnancies 0 Ectopic pregnancies 0 AB induced Hx Number of Living Children AB spontaneous
--- NOTE | 2023-09-13 22:15 | DI.RAD_ITS ---
Exam(s) XR CHEST 2V PA LATERAL EXAM: XR CHEST 2V PA LATERAL CLINICAL HISTORY: short of breath TECHNIQUE: 2D digital imaging was performed. Two views. COMPARISON: CR,XR XR CHEST 2V PA LATERAL from 08/02/2023 FINDINGS: HEART: Normal size. Aorta: Not dilated. Aortic valve prosthesis. PULMONARY VASCULATURE: Normal. LUNGS: Clear. PLEURAL SPACE: No pleural effusion or pneumothorax. BONE:Unremarkable for age. Sternal wires. Soft tissues: Unremarkable. IMPRESSION: No acute abnormality. DATA REPOSITORY: RADIATION DOSE DELIVERED:
--- NOTE | 2023-09-13 22:30 | RT.EKG_ITS ---
APPROVED REPORT Exam: Resting ECG Reason for Exam: afib Patient Location: E HR:96 bpm ECG Measurements Heart Rate 96 AXIS WY [id number] P [id number] QRSd 102 QRS -43 QT 396 T 89 QTc 501 Conclusion Atrial fibrillation...? atrial activity Left axis deviation...QRS axis (-30,-90) Anteroseptal infarct, age indeterminate...Q >35mS, T neg, V1-V2 Prolonged QT interval...QTc >500mS no ST segment or T wave abnormalities to suggest occlusive NH
[2023-09-13 22:34] LABS: Abs Immature Grans 0.03 10^3/uL (0.0-0.06); Absolute Basophil Count 0.06 10^3/uL (0.0-0.2); Absolute Lymphocyte Count 2.06 10^3/uL (1.2-3.4); Absolute Monocyte Count 0.62 10^3/uL (0.1-0.8); Absolute Neutrophil Count 3.37 10^3/uL (1.2-6.7); Basophils % 0.9 %; Eosinophils % 3.2 %; HCT 39.6 % (36.0-46.0); HGB 13.8 g/dL (11.2-15.7); Immature Grans % 0.5 %; Lymphocytes % 32.5 %; MCH 33.9 pg (27.0-33.0); MCHC 34.8 % (32.0-36.0); MCV 97 fL (80-95); MPV 9.3 fL (8.0-11.0); Monocytes % 9.8 %; Neutrophils % 53.1 %; Platelet Count 220 10^3/uL (130-400); RBC 4.07 10^6/uL (3.93-5.22); RDW 11.5 % (11.7-14.6); RDW-SD 41.6 fL; WBC 6.34 10^3/uL (4.4-10.8)
[2023-09-13] MEDS: Metoprolol 50 MG TAB PO (22:39)
[2023-09-13 22:46] LABS: PTT Activated 28.3 sec (23.6-32.8); Prothrombin Time 10.5 sec (9.1-11.1)
[2023-09-13 22:46] LABS: Bilirubin Negative (Negative); Blood Negative (Negative); Clarity Clear (Clear); Glucose Negative (Negative); Ketones Negative (Negative); Leukocyte Esterase Negative (Negative); Nitrite Negative (Negative); Urobilinogen 0.2 mg/dL (Up to 0.2)
[2023-09-13 23:20] LABS: ALT 29 U/L (14-59); AST 25 U/L (15-37); Albumin 3.4 g/dL (3.4-5.0); Alkaline Phosphatase 92 U/L (46-116); Anion Gap 9.7 mmol/L (3-11); BUN 13 mg/dL (7-18); Bilirubin, Total 0.8 mg/dL (0.2-1.0); CO2 24.3 mmol/L (21.0-32.0); CREATININE 0.7 mg/dL (0.55-1.02); Calcium 8.9 mg/dL (8.5-10.1); Chloride 97 mmol/L (98-107); Estimated GFR 97.72 (mL/min/1.73m2); Glucose 102 mg/dL (74-106); Magnesium 1.4 mg/dL (1.8-2.4); Potassium 3.8 mmol/L (3.5-5.1); Sodium 131 mmol/L (136-145); TSH (W/Ref FT4) 5.71 uIU/mL (0.36-3.74); Total Protein 6.9 g/dL (6.4-8.2); Troponin I < 50 ng/L (< or =60)
[2023-09-13 23:22] LABS: COVID-19 PCR Negative (Negative); Influenza A PCR Negative (Negative); Influenza B PCR Negative (Negative); RSV PCR Negative (Negative)
[2023-09-13 23:27] LABS: Source Nasopharynx
--- NOTE | 2023-09-13 23:28 | DI.VRAD_ITS ---
PROCEDURE INFORMATION: Exam: XR Chest Exam date and time: 09/13/2023 10:48 PM Age: 62 years old Clinical indication: Shortness of breath TECHNIQUE: Imaging protocol: Radiologic exam of the chest. Views: 2 views. COMPARISON: CR XR CHEST 2V PA LATERAL 08/02/2023 10:10 AM FINDINGS: Tubes, catheters and devices: There are sternal wires consistent with previous sternotomy incision. Lungs: The lungs are hyperinflated, consistent with underlying small airways disease. Pleural spaces: No pleural effusion. No pneumothorax. Heart/Mediastinum: There is an aortic valvular replacement. The cardiac structures are normal. Bones/joints: The skeletal structures and soft tissues show no evidence of fracture or other acute processes. Soft tissues: Probable right nipple piercing. The soft tissues of the extrathoracic region are unremarkable. Other findings: These are determined to be new findings when correlated with the prior examination. IMPRESSION: The lungs are hyperinflated, consistent with underlying small airways disease. Dictated and Authenticated by: Akira Casper MD. Ordering:MARIA VICTORIA Vera MD
[2023-09-13 23:29] LABS: D-Dimer 1930 ng/mlFEU (<500)
--- NOTE | 2023-09-13 23:30 | DI.CT_ITS ---
Exam(s) CT CHEST PE CTA EXAM: CT CHEST PE CTA CLINICAL HISTORY: new afib tachycardia elevated dimer. TECHNIQUE: Imaging Protocol: Axial CT angiography was performed with multi-slice acquisition and mu lti-planar reconstructions as well as axial, coronal and sagittal MIP reconstructions. CONTRAST MATERIAL: Intravenous: Omnipaque 350 Contrast volume:59 ml COMPARISON: CT CT ABDOMEN PELVIS W from 08/30/2022 FINDINGS: Pulmonary Arteries: No evidence of filling defect to suggest pulmonary emboli. Tracheobronchial tree: No mucous plugging. Mediastinum and Kae: No dominant adenopathy or fluid collection. Pulmonary parenchyma: Dependent changes. No consolidation or dominant measurable mass. Pleura: No effusion or pneumothorax. Heart: There is [id number] dilatation of both atria. Mild coronary artery calcifications are s een. Aortic valve replacement. Aorta: Ascending aorta measures 4 cm. Descending aorta measures 2.4 cm. No dissection. Upper abdomen: No acute findings. Bones: Sternal wires. Tubes, Catheters, and Lines: None Soft tissues: Unremarkable. IMPRESSION: No evidence of pulmonary embolism or other acute abnormality. RADIATION DOSE DELIVERED: Total DLP DATA REPOSITORY: All CT scans at this facility are submitted to the National Radiology Data Registry (NRDR) Dose Index Registry (DIR) with the [employer] (ACR). RADIATION OPTIMIZATION: All CT scans at this facility use at least one of these dose optimization te chniques: automated exposure control; mA and/or kV adjustment per patient size (includes targeted exa ms where dose is matched to clinical indication); or iterative reconstruction.
[2023-09-13 23:46] LABS: FREE T4 1.14 ng/dL (0.76-1.46)
[2023-09-14] VITALS (33 sets, daily range): BP systolic 105–167; BP diastolic 83–117; PULSE 66–115; RESP 14–30; TEMP 36.2–37.1; O2SAT 95–100
[2023-09-14] MEDS: Normal Saline 500 ML IV (00:06)
[2023-09-14] MEDS: Magnesium Gluconate 500 MG TAB 1000 MG PO (00:06)
[2023-09-14] MEDS: Omnipaque 350 MG/ML 100 ML BTL IJ (00:10)
[2023-09-14] MEDS: Normal Saline Flush 10 ML SYR IVP ×2 (00:11→20:00)
[2023-09-14] MEDS: Normal Saline - Diluent 50 ML VIAL IJ (00:11)
--- NOTE | 2023-09-14 00:35 | DI.VRAD_ITS ---
PROCEDURE INFORMATION: Exam: CTA Chest With Contrast Exam date and time: 09/13/2023 11:56 PM Age: 62 years old Clinical indication: Other: New afib tachycardia, elevated d dimer; Prior surgery; Surgery date: 6+ months; Surgery type: Heart value replaced; Patient HX: New afib achycardia, elevated d dimer TECHNIQUE: Imaging protocol: Computed tomographic angiography of the chest with contrast. Exam focused on the arteries. 3D rendering (Not supervised by radiologist): MIP and/or 3D reconstructed images were created by the technologist. Radiation optimization: All CT scans at this facility use at least one of these dose optimization techniques: automated exposure control; mA and/or kV adjustment per patient size (includes targeted exams where dose is matched to clinical indication); or iterative reconstruction. Contrast material: [id number]; Contrast volume: 59 ml; Contrast route: INTRAVENOUS (IV); COMPARISON: CT CHEST PE CTA 07/21/2020 12:00 AM FINDINGS: Tubes, catheters and devices: There are sternal wires consistent with previous sternotomy incision. Pulmonary arteries: No evidence of acute pulmonary embolism. Aorta: The aorta is normal without evidence of aneurysmal dilatation, dissection or occlusive disease. Lungs: There is mild heterogeneous attenuation of the pulmonary parenchyma, consistent with mild air trapping from underlying small airways disease. There is minimal bibasilar atelectasis. Scattered patchy ground-glass opacities within the lungs. These findings are nonspecific and may represent hypoventilatory change,edema, hemorrhage, or an infectious/inflammatory process (acute or chronic). Mild paraseptal emphysematous changes at the lung bases. There is no evidence of pulmonary masses. Pleural spaces: There is no evidence of pneumothorax. There are no pleural effusions present. Heart: There has been an aortic valve replacement. The cardiac structures are normal. The right ventricular to left ventricular ratio is normal measuring approximately 0.8. Coronary arteries: There is mild atherosclerotic calcification of the coronary arteries. Lymph nodes: There is no evidence of lymphadenopathy. Bones/joints: The spine, sternum, ribs, and pectoral girdles show no evidence of acute abnormality. Soft tissues: There are no soft tissue masses or fluid collections. The upper abdominal viscera are unremarkable. Other findings: The mediastinal structures are normal. IMPRESSION: 1. There is mild heterogeneous attenuation of the pulmonary parenchyma, consistent with mild air trapping from underlying small airways disease. 2. Scattered patchy ground-glass opacities within the lungs. These findings are nonspecific and may represent hypoventilatory change,edema, hemorrhage, or an infectious/inflammatory process (acute or chronic). The pulmonary arteries are normal in caliber. 3. No evidence of acute pulmonary embolism. Dictated and Authenticated by: Akira Casper MD. Ordering:MARIA VICTORIA Vera MD
[2023-09-14 01:34] LABS: Troponin I < 50 ng/L (< or =60)
[2023-09-14 01:38] LABS: NT-proBNP 3583 pg/mL (<300)
--- NOTE | 2023-09-14 06:30 | W.PM.HP.N ---
Date of service: 09/14/23 Time of Service: 06:31 Assessment and Plan Assessment and plan (1) A-fib: Start date: 09/13/23 Status: Acute Assessment and plan: This is a 62-year-old lady who had previous atrial fibrillation after aortic valve replacement in 2021 and now has symptomatic, recurrent atrial fibrillation though she is not necessarily tachycardic or hypotensive at this time. He does have slightly elevated blood pressure and is on metoprolol chronically. She is not on anticoagulation and this was initiated in the ED with plans for either a TON and cardioversion if she remains symptomatic versus anticoagulation for at least 21 days prior to elective cardioversion. Patient is stable with negative troponins and these will be trended. She does need her echocardiogram updated also for evaluation of previous CHF with a BNP elevated. She does have slight low sodium and a decreased magnesium which will be repleted. She is comfortable at time of my exam with no complaints of chest discomfort or palpitations. She is a full code. Qualifiers: Atrial fibrillation type: paroxysmal Qualified Code(s): I48.0 - Paroxysmal atrial fibrillation (2) Nonrheumatic aortic (valve) stenosis: Status: Chronic Assessment and plan: Patient is status post aortic valve replacement with tissue valve in 2021. She was not on anticoagulation but now just initiated because of her rhythm change. (3) Hyperlipidemia, unspecified: Status: Chronic Assessment and plan: Continue statin therapy. Qualifiers: Hyperlipidemia type: other hyperlipidemia Qualified Code(s): E78.49 - Other hyperlipidemia (4) Heart failure: Status: Chronic Assessment and plan: Patient BNP is elevated and needs follow-up echocardiogram despite whether she has TON for elective cardioversion of atrial fibrillation. Qualifiers: Heart failure type: other Qualified Code(s): I50.89 - Other heart failure (5) Depression: Status: Chronic Assessment and plan: Continue outpatient medical therapy. Patient is on trazodone and Wellbutrin. Qualifiers: Depression Type: other depression Qualified Code(s): F32.89 - Other specified depressive episodes History of Present Illness History of Present Illness Chief Complaint: Palpitations with acute onset of racing heart Narrative: This is a 62-year-old female patient has a history of paroxysmal atrial fibrillation after aortic valve replacement with tissue valve in 2021. She was on anticoagulation with beta-blockade and return to normal sinus rhythm for a prolonged time and anticoagulation was discontinued. She continues to be on metoprolol for treatment of hypertension. She has also had some dysrhythmias with PSVT and atrial fibrillation as well as a diagnosis of CHF though no recent echocardiogram greater than 2020 with this prior to her aortic valve replacement. She is not on chronic diuretics. She has sudden onset of palpitations with racing heart at 7 in the morning on the day prior to admission. She was seen in the ED for evaluation and found to have atrial fibrillation as a rhythm change with consultation by phone with cardiology at [facility] recommending not cardioversion at this time until patient can have TON to ensure no clot in the left atrium or be on anticoagulation least 21 days prior to cardioversion with patient not decompensating but symptomatic. She was stable with no hypotension but was symptomatic. She was initiated on Eliquis which will be continued and I will split dose of metoprolol for blood pressure and heart rate control. She is on Toprol-XL 50 mg daily. This will be switched to metoprolol to tartrate 25 mg every 8 hours. The patient troponins were negative and EKG did not show any acute ischemic changes with labs to be trended. Will order TON and this was initiated. The patient is a full code. Review of Systems Narrative: 13 point review of systems otherwise unrevealing or stable. PFS All Active Problems (Updated 09/14/23 @ 10:01 by Erick Bryan) A-fib (Acute) Heart failure (Chronic) Irritable bowel syndrome with mixed bowel habits (Acute) [facility] 07/04/23 Bloating (Acute ~05/2023) 06/03/23 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 Wearing HOLTOR MONITOR, so no EKG done.. considering marleny BECKHAM (01/28/20). 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 2019 FREDI/BSO debulking. 6 cycles of Taxol/Carbo/Avastin. 3 yrs ARPi stopped 10/07/22. Q6mo exam with CA 125. Pelvic pain (Acute) Onset 05/2019 left sided. Depression (Chronic 08/08/15) Long-term use of Wellbutrin, stopped and takes CBD oil. Has increased vitamin D supplements. Complex cyst of left ovary (Acute) Pelvic pain (Acute) Aortic stenosis, severe (Acute) Followed at [facility], echo 11/29/21 w/ mod regurgitation Cough (Acute) Muscle spasm (Acute) Subclinical hypothyroidism (Acute 11/03/12) TSH slightly elevated in 05/2012 Started on Levothyroxine 2013 levothyroxin stopped 11/21/[address] Cortes per pt inquiry, SVT (supraventricular tachycardia) (Acute 09/23/17) 09/17/17 [facility] Lichen sclerosus et atrophicus of the vulva (Chronic 10/20/17) No biopsy performed. Clobetasol improving symptoms Hyperlipidemia, unspecified (Chronic 07/02/17) Hot flashes, menopausal (Acute 11/30/13) RX Gabapentin, 11/2013 Headache (Acute 06/06/11) Family history of cardiovascular disease (Acute 07/07/13) M Bx3; all >55yo Essential hypertension (Acute 06/06/15) Elevated blood pressure reading (Acute 08/29/11) ASCVD risk score: 1.6% DASH Plans on decreasing salt intake Elevated blood pressure reading without diagnosis of hypertension (Acute 08/29/11) ASCVD risk score: 1.6% DASH Plans on decreasing salt intake Dyspareunia (Acute 12/02/14) Atrophic vaginitis (Chronic 11/28/16) 10/2017 RX vaginal estrogen 10 mcg tablet 2x/week 02/2018 Rx for Estring. Aortic valve disorder (Acute 09/23/17) [facility] 09/17/17 Anxiety (Acute 12/23/12) Allergic rhinitis (Acute 11/03/12) History of Surgical Procedure (Chronic) a. sections x2. b. Laparoscopic appendectomy - 08/26/13. 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 Patient has been referred to [facility] oncology. 10/07/22 F/U Abnormal ultrasound of pelvis Lichen sclerosus et atrophicus of the vulva Involving the periclitoral region and labia minora treated with clobetasol 0.05% with good results. Surgical History H/O ventricular septal myectomy (~01/29/22) S/P AVR (~01/29/22) H/O colectomy S/P total abdominal hysterectomy S/P total abdominal hysterectomy and bilateral salpingo-oophorectomy (07/20/19) bilateral pelvic and paraaortic lymphadenectomy, infracolic omentectomy, rectosigmoid resection and reanastomosis section x2 Appendectomy (08/26/13) Dr. Rabago Family History Mother Personal history of malignant neoplasm cervical Father No problems noted. Brother Myocardial infarction Brother Myocardial infarction Brother Myocardial infarction Grandfather Myocardial infarction Social History Smoking/Tobacco Use Status: Former Tobacco Use Smoking risk assessment performed?: Yes Alcohol Intake: current Alcohol Intake frequency: a few times a month Alcohol type: wine Drug use: Never Substance use type: does not use Adopted: No Household members: spouse Housing: house Number of Children: 2 number of grandchildren: 3 current occupation: not working at this time What is your relationship status?: How often do you talk on the phone with friends or family?: three or more times per week How often do you get together with friends or relatives?: three or more times per week Panel score (0-1 are the most socially isolated patients): 2 What type of physical activity do you participate in: walking and additional Details: starting to get back into exercise, meditating daily Frequency: 5-6 times per week Seatbelt use: always Working smoke detector in home: Yes Fire extinguisher in home: Yes Carbon monox detector in home: Yes Do you feel safe at home: Yes Do you feel safe in your relationship?: Yes Female Reproductive History Menstrual control method: none Menopause type: natural Date of menopause: 04/21/10 History History 2 Para Hx # Term Pregnancies 2 Multiple births Hx # Pregnancies 0 Ectopic pregnancies 0 AB induced Hx Number of Living Children AB spontaneous Meds Allergies and Home Medications Allergies Allergy/AdvReac Type Severity Reaction Status Date / Time penicillin V Allergy Severe swollen Verified 09/13/23 22:14 lips, couldnt breath paroxetine Allergy Unknown unknown Verified 09/13/23 22:14 paclitaxel [From Taxol] AdvReac Intermediate Other (See Verified 09/13/23 22:14 Comment) sertraline AdvReac Intermediate unknown Verified 09/13/23 22:14 venlafaxine AdvReac Intermediate unknown Verified 09/13/23 22:14 betamethasone AdvReac anxious, Verified 09/13/23 22:14 irritated, raceing heart Home Medications Medication Instructions Recorded Confirmed Type aspirin 81 mg tablet,delayed 81 mg PO DAILY 02/22/22 09/13/23 History release (Adult Aspirin Regimen) cholecalciferol (vitamin D3) 50 50 mcg PO DAILY 06/19/22 09/13/23 History mcg (2,000 unit) capsule mbzycpsllvyz-Df-oluq-minerals 1 tab PO DAILY 06/19/22 09/13/23 History metoprolol succinate 50 mg 50 mg PO HS 11/18/22 09/13/23 History tablet,extended release 24 hr atorvastatin 10 mg tablet 10 mg PO HS #90 tabs 05/26/23 09/13/23 Rx trazodone 50 mg tablet See Rx Instructions .Route 06/23/23 09/13/23 Rx .COMPLEX #180 tabs bupropion HCl 300 mg 24 hr tablet, 300 mg PO QAM #90 tabs 08/04/23 09/13/23 Rx extended release (Wellbutrin XL) Exam Narrative Exam Narrative: General: Patient appears appropriate for age of slightly older, darkly tanned, alert and oriented x 3 and in no acute distress. She is thinly built. HEENT: Normocephalic, eyes with pupils equal and reactive light symmetrically, extraocular movement intact and sclera anicteric. Oropharynx with moist mucosa and fair dentition. Neck: Supple without JVD. Back: Normal posture without CVA tenderness. Lungs: Clear to auscultation percussion with no focalizing rales or rhonchi. No increased expiratory phase or expiratory wheeze. Vesicular breath sounds with fair aeration. Breast: Exam deferred. Heart: Irregularly irregular rhythm with 2/6 to 3/6 systolic murmur left border. Sternal scar. No gallops or rubs. Abdomen: Scaphoid contour, soft and nontender to palpation with no palpable hepatosplenomegaly. Bowel sounds positive in all quadrants. Genitalia/rectal: Exam deferred. Extremities: Without clubbing, cyanosis or peripheral edema. Peripheral pulses intact. Skin: Darkly tanned, otherwise normal color, warm and dry. Neuro: Cranial nerves II through XII gross intact, no focalizing motor deficits. No tremor. Psych: Normal affect and mood, no abnormal thought processes. Remote and recent memory intact. Results Imaging Imaging Studies: Exam: XR Chest Exam date and time: 09/13/2023 10:48 PM Age: 62 years old Clinical indication: Shortness of breath TECHNIQUE: Imaging protocol: Radiologic exam of the chest. Views: 2 views. COMPARISON: CR XR CHEST 2V PA LATERAL 08/02/2023 10:10 AM FINDINGS: Tubes, catheters and devices: There are sternal wires consistent with previous sternotomy incision. Lungs: The lungs are hyperinflated, consistent with underlying small airways disease. Pleural spaces: No pleural effusion. No pneumothorax. Heart/Mediastinum: There is an aortic valvular replacement. The cardiac structures are normal. Bones/joints: The skeletal structures and soft tissues show no evidence of fracture or other acute processes. Soft tissues: Probable right nipple piercing. The soft tissues of the extrathoracic region are unremarkable. Other findings: These are determined to be new findings when correlated with the prior examination. IMPRESSION: The lungs are hyperinflated, consistent with underlying small airways disease. Exam: CTA Chest With Contrast Exam date and time: 09/13/2023 11:56 PM Age: 62 years old Clinical indication: Other: New afib tachycardia, elevated d dimer; Prior surgery; Surgery date: 6+ months; Surgery type: Heart value replaced; Patient HX: New afib achycardia, elevated d dimer TECHNIQUE: Imaging protocol: Computed tomographic angiography of the chest with contrast. Exam focused on the arteries. 3D rendering (Not supervised by radiologist): MIP and/or 3D reconstructed images were created by the technologist. Radiation optimization: All CT scans at this facility use at least one of these dose optimization techniques: automated exposure control; mA and/or kV adjustment per patient size (includes targeted exams where dose is matched to clinical indication); or iterative reconstruction. Contrast material: [id number]; Contrast volume: 59 ml; Contrast route: INTRAVENOUS (IV); COMPARISON: CT CHEST PE CTA 07/21/2020 12:00 AM FINDINGS: Tubes, catheters and devices: There are sternal wires consistent with previous sternotomy incision. Pulmonary arteries: No evidence of acute pulmonary embolism. Aorta: The aorta is normal without evidence of aneurysmal dilatation, dissection or occlusive disease. Lungs: There is mild heterogeneous attenuation of the pulmonary parenchyma, consistent with mild air trapping from underlying small airways disease. There is minimal bibasilar atelectasis. Scattered patchy ground-glass opacities within the lungs. These findings are nonspecific and may represent hypoventilatory change,edema, hemorrhage, or an infectious/inflammatory process (acute or chronic). Mild paraseptal emphysematous changes at the lung bases. There is no evidence of pulmonary masses. Pleural spaces: There is no evidence of pneumothorax. There are no pleural effusions present. Heart: There has been an aortic valve replacement. The cardiac structures are normal. The right ventricular to left ventricular ratio is normal measuring approximately 0.8. Coronary arteries: There is mild atherosclerotic calcification of the coronary arteries. Lymph nodes: There is no evidence of lymphadenopathy. Bones/joints: The spine, sternum, ribs, and pectoral girdles show no evidence of acute abnormality. Soft tissues: There are no soft tissue masses or fluid collections. The upper abdominal viscera are unremarkable. Other findings: The mediastinal structures are normal. IMPRESSION: 1. There is mild heterogeneous attenuation of the pulmonary parenchyma, consistent with mild air trapping from underlying small airways disease. 2. Scattered patchy ground-glass opacities within the lungs. These findings are nonspecific and may represent hypoventilatory change,edema, hemorrhage, or an infectious/inflammatory process (acute or chronic). The pulmonary arteries are normal in caliber. 3. No evidence of acute pulmonary embolism. Labs 09/13/23 22:20 09/14/23 07:50 Labs: Laboratory Results - last 24 hr 09/13/23 09/13/23 09/13/23 22:20 22:30 22:50 WBC 6.34 RBC 4.07 Hgb 13.8 Hct 39.6 MCV 97 H MCH 33.9 H MCHC 34.8 RDW 11.5 L Plt Count 220 MPV 9.3 Immature Gran % 0.5 Neutrophils % 53.1 Lymphocytes % 32.5 Monocytes % 9.8 Eosinophils % 3.2 Basophils % 0.9 Nucleated RBC % 0.0 Absolute Neutrophils 3.37 Absolute Lymphocytes 2.06 Absolute Monocytes 0.62 Absolute Eosinophils 0.20 Absolute Basophils 0.06 PT 10.5 INR 1.0 APTT 28.3 D-Dimer 1930 H Sodium Cancelled 131 L Potassium Cancelled 3.8 Chloride Cancelled 97 L Carbon Dioxide Cancelled 24.3 Anion Gap Cancelled 9.7 BUN Cancelled 13 Creatinine Cancelled 0.7 Est GFR (CKD-EPI 2020) Cancelled 97.72 Glucose Cancelled 102 Calcium Cancelled 8.9 Magnesium Cancelled 1.4 L Total Bilirubin Cancelled 0.8 AST Cancelled 25 ALT Cancelled 29 Alkaline Phosphatase Cancelled 92 Troponin I Cancelled < 50 NT-Pro-B Natriuret Pep Total Protein Cancelled 6.9 Albumin Cancelled 3.4 TSH Cancelled 5.71 H Free T4 1.14 Urine Color Yellow Urine Clarity Clear Urine pH 7.0 Ur Specific Phyllis 1.010 Urine Protein Negative Urine Ketones Negative Urine Blood Negative Urine Nitrite Negative Urine Bilirubin Negative Urine Urobilinogen 0.2 Ur Leukocyte Esterase Negative Urine Glucose Negative COVID-19 Source Nasopharynx SARS-CoV-2 (PCR) Negative Influenza Type A (PCR) Negative Influenza Type B (PCR) Negative RSV (PCR) Negative 09/14/23 01:15 WBC RBC Hgb Hct MCV MCH MCHC RDW Plt Count MPV Immature Gran % Neutrophils % Lymphocytes % Monocytes % Eosinophils % Basophils % Nucleated RBC % Absolute Neutrophils Absolute Lymphocytes Absolute Monocytes Absolute Eosinophils Absolute Basophils PT INR APTT D-Dimer Sodium Potassium Chloride Carbon Dioxide Anion Gap BUN Creatinine Est GFR (CKD-EPI 2020) Glucose Calcium Magnesium Total Bilirubin AST ALT Alkaline Phosphatase Troponin I < 50 NT-Pro-B Natriuret Pep 3583 H Total Protein Albumin TSH Free T4 Urine Color Urine Clarity Urine pH Ur Specific Phyllis Urine Protein Urine Ketones Urine Blood Urine Nitrite Urine Bilirubin Urine Urobilinogen Ur Leukocyte Esterase Urine Glucose COVID-19 Source SARS-CoV-2 (PCR) Influenza Type A (PCR) Influenza Type B (PCR) RSV (PCR) Last Vital Signs Temp 36.6 C 09/14/23 04:06 Pulse 87 09/14/23 04:06 Resp 16 09/14/23 04:06 BP 112/83 09/14/23 04:06 Pulse Ox 97 09/14/23 04:06 PAWSS Have you Been Recently Intoxicated or Drunk Within the Last 30 days?: No Have you Ever Experienced Previous Episodes of Alcohol Withdrawal?: No Have you ever Experienced Withdrawal Seizures?: No Have you ever Experienced Delirium Tremens(DT)s?: No Have you ever undergone Alcohol Rehabilitation Treatment (i.e, inpt ot outpatient treatment programs)?: No Have you ever Experienced Blackouts?: No Have you ever Combined Alcohol with other Downers within the last 90 days?: No Have you ever Combined Alcohol with any other Substance of Abuse during the last 90 days?: No Positive Blood Alcohol level on Presentation? [PCS.BAL]: No Evidence of Increased Autonomic Activity (i.e. HR>120, tremor, sweating, agitation, nausea)?: No Result: 0 Time Spent Time spent with Patient: >75 minutes Time was spent: preparing to see the patient(eg.review tests), obtaining and/or reviewing separately otained hiistory, ordering medications,tests, procedures, referring, communicating with other health home health care case manager, indepentently interpreting results, counseling the patient and care coordination
[2023-09-14 08:24] LABS: Anion Gap 9.7 mmol/L (3-11); BUN 8 mg/dL (7-18); CO2 26.3 mmol/L (21.0-32.0); CREATININE 0.7 mg/dL (0.55-1.02); Calcium 9.5 mg/dL (8.5-10.1); Chloride 103 mmol/L (98-107); Estimated GFR 97.72 (mL/min/1.73m2); Glucose 102 mg/dL (74-106); Magnesium 1.8 mg/dL (1.8-2.4); Potassium 4.2 mmol/L (3.5-5.1); Sodium 139 mmol/L (136-145); Troponin I < 50 ng/L (< or =60)
[2023-09-14] MEDS: Cholecalciferol (Vitamin D3) 1,000 UNIT TAB 2000 UNITS PO (08:30)
[2023-09-14] MEDS: Multivitamin w/Minerals TAB 1 TAB PO (08:30)
[2023-09-14] MEDS: buPROPion-CR 150 MG TABCR 300 MG PO (08:31)
[2023-09-14] MEDS: Aspirin E.C. 81 MG TABEC PO (08:31)
[2023-09-14] MEDS: Apixaban 5 MG TAB PO ×2 (08:31→19:57)
--- NOTE | 2023-09-14 09:54 | PDOC.CMIN ---
Date of service: 09/14/23 Time of Service: 09:54 Care Management Initial Assmt Initial Assessment Reason for Hospitalization: New onset Afib with PAF Functional Status/Living Situation Patient Presentation: Independent at baseline Town of Residence: [place] Resides with: Spouse Significant Other/Family: Local Advance Directives Advance Directives: Do you have an Advance Directive: N 02/28/22 09:57 AD On File at [facility]: N 02/28/22 09:57 Date Asked 09/13/23 09/13/23 22:12 AD Date Reviewed COLST On File at [facility] No 09/13/23 22:12 COLST Date Scanned Code Status Resuscitation Status Full Code Insurance Coverage/Financial Issues Insurance: BC/BS ACO Member: No Care Team Visit Care Team Role Provider Type Evelyne Hunt NP Primary Care Provider NURSE PRACTITIONER Jody De Santiago MD Emergency Provider [facility] STAFF PHYSICIAN Erick Bryan Admit Provider NON-[facility] STAFF PHYSICIAN Attending Provider Discharge Potential Discharge Needs: Imaging/labs Anticipated Barriers to Discharge: None Identified Patient/Family Education Needs: Review discharge instructions, discuss Ask Me Three Transportation: Private vehicle Plan: Anticipate Ivana will return home when ready per MD. She will follow up with her PCP and plan of care as prescribed, and per MD will likely have new prescription for anticoagulation. She will transport via private vehicle. 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 Wearing HOLTOR MONITOR, so no EKG done.. considering marleny BECKHAM (01/28/20). 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 2019 FREDI/BSO debulking. 6 cycles of Taxol/Carbo/Avastin. 3 yrs ARPi stopped 10/07/22. Q6mo exam with CA 125. Pelvic pain (Acute) Onset 05/2019 left sided. Depression (Chronic 08/08/15) Long-term use of Wellbutrin, stopped and takes CBD oil. Has increased vitamin D supplements. Complex cyst of left ovary (Acute) Pelvic pain (Acute) Aortic stenosis, severe (Acute) Followed at [facility] [place] [place], echo 11/29/21 w/ mod regurgitation Cough (Acute) Muscle spasm (Acute) Subclinical hypothyroidism (Acute 11/03/12) TSH slightly elevated in 05/2012 Started on Levothyroxine 2013 levothyroxin stopped 11/21/[address] Cortes per pt inquiry, SVT (supraventricular tachycardia) (Acute 09/23/17) 09/17/17 [facility] [place] [place] Lichen sclerosus et atrophicus of the vulva (Chronic 10/20/17) No biopsy performed. Clobetasol improving symptoms Hyperlipidemia, unspecified (Chronic 07/02/17) Hot flashes, menopausal (Acute 11/30/13) RX Gabapentin, 11/2013 Headache (Acute 06/06/11) Family history of cardiovascular disease (Acute 07/07/13) M Bx3; all >55yo Essential hypertension (Acute 06/06/15) Elevated blood pressure reading (Acute 08/29/11) ASCVD risk score: 1.6% DASH Plans on decreasing salt intake Elevated blood pressure reading without diagnosis of hypertension (Acute 08/29/11) ASCVD risk score: 1.6% DASH Plans on decreasing salt intake Dyspareunia (Acute 12/02/14) Atrophic vaginitis (Chronic 11/28/16) 10/2017 RX vaginal estrogen 10 mcg tablet 2x/week 02/2018 Rx for Estring. Aortic valve disorder (Acute 09/23/17) [facility] [place] [place] 09/17/17 Anxiety (Acute 12/23/12) Allergic rhinitis (Acute 11/03/12) History of Surgical Procedure (Chronic) a. sections x2. b. Laparoscopic appendectomy - 08/26/13. 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 10/07/22 F/U Abnormal ultrasound of pelvis Lichen sclerosus et atrophicus of the vulva Involving the periclitoral region and labia minora treated with clobetasol 0.05% with good results. Surgical History H/O ventricular septal myectomy (~01/29/22) S/P AVR (~01/29/22) H/O colectomy S/P total abdominal hysterectomy S/P total abdominal hysterectomy and bilateral salpingo-oophorectomy (07/20/19) bilateral pelvic and paraaortic lymphadenectomy, infracolic omentectomy, rectosigmoid resection and reanastomosis section x2 Appendectomy (08/26/13) Dr. Rabago Family History Mother Personal history of malignant neoplasm cervical Father No problems noted. Brother Myocardial infarction Brother Myocardial infarction Brother Myocardial infarction Grandfather Myocardial infarction Social History Smoking/Tobacco Use Status: Former Tobacco Use Smoking risk assessment performed?: Yes Alcohol Intake: current Alcohol Intake frequency: a few times a month Alcohol type: wine Drug use: Never Substance use type: does not use Adopted: No Household members: spouse Housing: house Number of Children: 2 number of grandchildren: 3 current occupation: not working at this time What is your relationship status?: How often do you talk on the phone with friends or family?: three or more times per week How often do you get together with friends or relatives?: three or more times per week Panel score (0-1 are the most socially isolated patients): 2 What type of physical activity do you participate in: walking and additional Details: starting to get back into exercise, meditating daily Frequency: 5-6 times per week Seatbelt use: always Working smoke detector in home: Yes Fire extinguisher in home: Yes Carbon monox detector in home: Yes Do you feel safe at home: Yes Do you feel safe in your relationship?: Yes Female Reproductive History Menstrual control method: none Menopause type: natural Date of menopause: 04/21/10 History History 2 Para Hx # Term Pregnancies 2 Multiple births Hx # Pregnancies 0 Ectopic pregnancies 0 AB induced Hx Number of Living Children AB spontaneous SDOH(Care Management) Screening Will the Patient Participate in the Screening?: Yes Do you worry about having a steady place to live?: no Problems where you live: no known problems In the past 12 months, have you had to go without electric, gas, oil or water in your home?: no Have you or anyone in your house had to go without enough food to eat?: no Has lack of transportation kept you from medical appointments or from doing things needed for daily living?: no Has anyone in your support network made you feel unsafe for any reason?: no
[2023-09-14] MEDS: Metoprolol 25 MG TAB PO ×2 (10:38→17:28)
[2023-09-14] MEDS: Atorvastatin 10 MG TAB PO (19:58)
[2023-09-14] MEDS: traZODone 50 MG TAB PO (21:35)
[2023-09-15 03:27] VITALS: BP 97/68; PULSE 78; RESP 16; TEMP 36; O2SAT 97
[2023-09-15] MEDS: Metoprolol 25 MG TAB PO ×3 (06:08→12:17)
[2023-09-15 06:59] LABS: HCT 45.7 % (36.0-46.0); HGB 15.6 g/dL (11.2-15.7); MCH 34.1 pg (27.0-33.0); MCHC 34.1 % (32.0-36.0); MCV 100 fL (80-95); MPV 9.1 fL (8.0-11.0); Platelet Count 308 10^3/uL (130-400); RBC 4.58 10^6/uL (3.93-5.22); RDW 11.9 % (11.7-14.6); RDW-SD 43.7 fL; WBC 5.17 10^3/uL (4.4-10.8)
[2023-09-15 07:18] LABS: ALT 25 U/L (14-59); AST 15 U/L (15-37); Albumin 3.4 g/dL (3.4-5.0); Alkaline Phosphatase 83 U/L (46-116); Anion Gap 9.1 mmol/L (3-11); BUN 12 mg/dL (7-18); Bilirubin, Total 0.8 mg/dL (0.2-1.0); CO2 25.9 mmol/L (21.0-32.0); CREATININE 0.7 mg/dL (0.55-1.02); Calcium 9.4 mg/dL (8.5-10.1); Chloride 103 mmol/L (98-107); Estimated GFR 97.72 (mL/min/1.73m2); Glucose 91 mg/dL (74-106); Magnesium 1.8 mg/dL (1.8-2.4); Potassium 4.2 mmol/L (3.5-5.1); Sodium 138 mmol/L (136-145); Total Protein 7.3 g/dL (6.4-8.2)
[2023-09-15 07:47] VITALS: BP 99/76; PULSE 76; RESP 17; TEMP 36.5; O2SAT 97
[2023-09-15] MEDS: Multivitamin w/Minerals TAB 1 TAB PO (08:48)
[2023-09-15] MEDS: buPROPion-CR 150 MG TABCR 300 MG PO (08:48)
[2023-09-15] MEDS: Aspirin E.C. 81 MG TABEC PO (08:48)
[2023-09-15] MEDS: Cholecalciferol (Vitamin D3) 1,000 UNIT TAB 2000 UNITS PO (08:48)
[2023-09-15] MEDS: Apixaban 5 MG TAB PO (08:49)
--- NOTE | 2023-09-15 10:55 | W.PM.DS.N ---
Date of service: 09/15/23 Time of Service: 10:55 DS: Diagnosis Discharge Diagnosis (1) A-fib: Status: Acute (2) Nonrheumatic aortic (valve) stenosis: Status: Chronic (3) Hyperlipidemia, unspecified: Status: Chronic (4) Heart failure: Status: Chronic (5) Depression: Status: Chronic Discharge Plan Disposition Patient Disposition: Home Condition: Stable Discharge Details Reason For Visit: New onset atrial fibrillation with PAF Admit Date/Time: 09/14/23 02:24 Admit Provider: Erick Bryan Attending Provider: Erick Bryan Primary Care Provider: Evelyne Hunt [place] Hospital Course Hospital Course: This is a 62-year-old female patient has a history of paroxysmal atrial fibrillation after aortic valve replacement with tissue valve in 2021. She was on anticoagulation with beta-blockade and return to normal sinus rhythm for a prolonged time and anticoagulation was discontinued. She continues to be on metoprolol for treatment of hypertension. She has also had some dysrhythmias with PSVT and atrial fibrillation as well as a diagnosis of CHF though no recent echocardiogram greater than 2020 with this prior to her aortic valve replacement. She is not on chronic diuretics. She has sudden onset of palpitations with racing heart at 7 in the morning on the day prior to admission. She was seen in the ED for evaluation and found to have atrial fibrillation as a rhythm change with consultation by phone with cardiology at [facility] [place] recommending not cardioversion at this time until patient can have TON to ensure no clot in the left atrium or be on anticoagulation least 21 days prior to cardioversion with patient not decompensating but symptomatic. She was stable with no hypotension but was symptomatic. She was initiated on Eliquis which will be continued. She is on Toprol-XL 50 mg daily. This will be switched to metoprolol to tartrate 25 mg every 8 hours. The patient troponins were negative and EKG did not show any acute ischemic changes. She remained hemodynamically stable and tolerating the 75 mg of Metroprolol daily she will be discharged home on the increased dose and will be given a prescription of Metroprolol tartrate if she has breakthrough symptoms. She will follow-up outpatient with her machine skiver. I did try to arrange a cardiac event recorder which will need to be done outpatient. Discharge discussed with Dr. Zendejas Home Meds and New Rx's Prescriptions: New metoprolol tartrate 25 mg Tablet 25 mg PO Q6H PRN (Reason: Tachycardia) Qty: 20 0RF Eliquis 5 mg Tablet 5 mg PO BID Qty: 60 0RF Continued cholecalciferol (vitamin D3) 50 mcg (2,000 unit) capsule 50 mcg PO DAILY hoxuluyetfwb-Xh-rbxo-minerals Tablet 1 tab PO DAILY bupropion HCl [Wellbutrin XL] 300 mg tablet extended release 24 hr 300 mg PO QAM Qty: 90 3RF aspirin [Adult Aspirin Regimen] 81 mg tablet,delayed release (DR/EC) 81 mg PO DAILY Rx Instructions: [facility] [place] 02/06- atorvastatin 10 mg tablet 10 mg PO HS Qty: 90 3RF trazodone 50 mg tablet See Rx Instructions .ROUTE .COMPLEX Qty: 180 3RF Dose Instruction: TAKE ONE TO TWO TABLETS BY MOUTH AT BEDTIME NEEDED Rx Instructions: TAKE ONE TO TWO TABLETS BY MOUTH AT BEDTIME NEEDED Changed metoprolol succinate 50 mg tablet extended release 24 hr 75 mg PO HS Qty: 0 0RF Patient Comments: TAKE ONE TABLET BY MOUTH EVERY DAY Discharge Instructions Instructions: A-fib (Atrial Fibrillation) (DC) Additional Instructions: wear heart monitor as directed Stand Alone Forms: Nursing Discharge Form Referrals: Gus Mcarthur [ NON-[facility] STAFF PHYSICIAN] - (Please call on Friday and set up a hospital follow up ) Activity:: Activity as Tolerated Equipment/Supplies:: No Equipment Needed Diet:: As Tolerated Discharge Orders Discharge Orders: Discharge Order (Routine); Ordered 09/15/23 Ordered By: Lisy Ritter Other Ambulatory Orders: Cardiac Event Recorder (Routine) Timeframe: [id number] Facility: [facility] - Location: Respiratory Therapy Ordered By: Lisy Ritter Discharge Data Discharge Date/Time-TO BE ENTERED AT DEPARTURE: 09/15/23 12:39 DS: Summary Time Spent with Patient providing and/or coordinating discharge services: Greater than 30 minutes Status at Discharge Functional status at discharge: independent ambulation Overall status at discharge: patient is progressing back to baseline Mental Status: mental status grossly normal Speech and Movement: speech and movement normal Mood: congruent mood Affect: normal affect Quality:SDOH Health Related Social Needs: No Data to Display Exam Const General: cooperative, healthy appearing, comfortable and no acute distress Nutritional Appearance: average body habitus Orientation: alert, awake and oriented x3 HENMT Head: normal to inspection, normocephalic and atraumatic Face and sinus: normal facial exam Mouth: oral mucosae normal Chest Chest: normal inspection of the chest Resp Effort & Inspection: normal respiratory effort Auscultation: clear to auscultation bilaterally Cardio Rate: regular rate Rhythm: abnormal rhythm (Controlled atrial fibrillation) GI Inspection: normal to inspection Palpation: soft Skin General skin exam: no rashes or lesions noted Neuro General: patient alert, patient awake and patient oriented x3 Cognition: normal cognition Speech: speech normal Extrem General: normal to inspection and full ROM Psych Mental Status: mental status grossly normal Speech and Movement: speech and movement normal Mood: congruent mood Affect: normal affect DS: Data Vitals/I&O Vitals and I&O: Vital Signs Temperature 36.5 C 09/15/23 07:47 Temperature Source Skin 09/15/23 07:47 Pulse 76 09/15/23 07:47 Pulse Rhythm Irregular 09/14/23 17:30 Pulse 82 09/14/23 03:00 Respiratory Rate 17 09/15/23 07:47 Respiratory Effort Normal, Non-Labored 09/14/23 20:05 Respiratory Depth Normal 09/14/23 20:05 Respiratory Pattern Normal 09/14/23 20:05 Blood Pressure 99/76 L 09/15/23 07:47 Blood Pressure Mean 107 09/14/23 02:31 Blood Pressure Position Supine 09/13/23 22:05 Pulse Oximetry 97 09/15/23 07:47 Oxygen Delivery Method Room Air 09/15/23 07:47 Oxygen Flow Rate 0 09/15/23 07:47 Pain Level 0 09/15/23 07:47 Comment RN Notified 09/15/23 03:27 Intake & Output 09/14/23 09/14/23 09/15/23 11:59 23:59 11:59 Intake Total 500 / 1240 740 / 1240 250 / 250 Output Total 1250 / 1850 600 / 1850 Balance -750 / -610 140 / -610 250 / 250 Weight 56.382 kg 54.522 kg Intake: IV 500 / 500 Oral 740 / 740 250 / 250 Output: Urine 1250 / 1850 600 / 1850 Other: Urine Color Yellow Yellow Urine Appearance Clear Clear Urine Odor None Comment pt uses toilet independently. Voiding Methods Toilet Toilet Toilet Data Completed and Pending Labs on day of discharge: Labs from last 24 hours 09/15/23 06:31 WBC 5.17 RBC 4.58 Hgb 15.6 Hct 45.7 MCV 100 H MCH 34.1 H MCHC 34.1 RDW 11.9 Plt Count 308 MPV 9.1 Sodium 138 Potassium 4.2 Chloride 103 Carbon Dioxide 25.9 Anion Gap 9.1 BUN 12 Creatinine 0.7 Est GFR (CKD-EPI 2020) 97.72 Glucose 91 Calcium 9.4 Magnesium 1.8 Total Bilirubin 0.8 AST 15 ALT 25 Alkaline Phosphatase 83 Total Protein 7.3 Albumin 3.4 PFSH All Active Problems (Updated 09/16/23 @ 00:08 by KASIA PRIETO) A-fib (Acute) Heart failure (Chronic) Irritable bowel syndrome with mixed bowel habits (Acute) [facility] 07/04/23 Bloating (Acute ~05/2023) 06/03/23 [facility] Acne vulgaris (Acute ~11/2022) 12/09/22 Derm History of ovarian cancer (Acute) Bilateral tinnitus (Acute) History of aortic valve replacement (Acute) Systolic anterior movement of mitral valve (Acute ~12/2021) Nonrheumatic aortic (valve) stenosis (Chronic) 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 Wearing HOLTOR MONITOR, so no EKG done.. considering marleny BECKHAM (01/28/20). 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 2019 FREDI/BSO debulking. 6 cycles of Taxol/Carbo/Avastin. 3 yrs ARPi stopped 6/19/23. Q6mo exam with CA 125. Pelvic pain (Acute) Onset 05/2019 left sided. Depression (Chronic 08/08/15) Long-term use of Wellbutrin, stopped and takes CBD oil. Has increased vitamin D supplements. Complex cyst of left ovary (Acute) Pelvic pain (Acute) Aortic stenosis, severe (Acute) Followed at [facility] [place], echo 11/29/21 w/ mod regurgitation Cough (Acute) Muscle spasm (Acute) Subclinical hypothyroidism (Acute 11/03/12) TSH slightly elevated in 05/2012 Started on Levothyroxine 2013 levothyroxin stopped 11/21/[address] 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 Clobetasol improving symptoms Hyperlipidemia, unspecified (Chronic 07/02/17) Hot flashes, menopausal (Acute 11/30/13) RX Gabapentin, 11/2013 Headache (Acute 06/06/11) Family history of cardiovascular disease (Acute 07/07/13) M Bx3; all >55yo Essential hypertension (Acute 06/06/15) Elevated blood pressure reading (Acute 08/29/11) ASCVD risk score: 1.6% DASH Plans on decreasing salt intake Elevated blood pressure reading without diagnosis of hypertension (Acute 08/29/11) ASCVD risk score: 1.6% DASH Plans on decreasing salt intake Dyspareunia (Acute 12/02/14) Atrophic vaginitis (Chronic 11/28/16) 10/2017 RX vaginal estrogen 10 mcg tablet 2x/week 02/2018 Rx for Estring. Aortic valve disorder (Acute 09/23/17) [facility] [place] 09/17/17 Anxiety (Acute 12/23/12) Allergic rhinitis (Acute 11/03/12) History of Surgical Procedure (Chronic) a. sections x2. b. Laparoscopic appendectomy - 08/26/13. Appendiceal abscess (Acute) Hypothyroidism (Chronic) Medical History Notalgia paresthetica (~07/2022) 07/29/22 Derm intermediate current use of anticoagulants with INR goal of 2.0-3.0 dc'd 03/2022 Ovarian mass, left 07/08/2019 12 x 8 cm cystic mass with solid components. 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 10/07/22 F/U Abnormal ultrasound of pelvis Lichen sclerosus et atrophicus of the vulva Involving the periclitoral region and labia minora treated with clobetasol 0.05% with good results. Surgical History H/O ventricular septal myectomy (~01/29/22) S/P AVR (~01/29/22) H/O colectomy S/P total abdominal hysterectomy S/P total abdominal hysterectomy and bilateral salpingo-oophorectomy (07/20/19) bilateral pelvic and paraaortic lymphadenectomy, infracolic omentectomy, rectosigmoid resection and reanastomosis section x2 Appendectomy (08/26/13) Dr. Rabago Family History Mother Personal history of malignant neoplasm cervical Father No problems noted. Brother Myocardial infarction Brother Myocardial infarction Brother Myocardial infarction Grandfather Myocardial infarction Social History Smoking/Tobacco Use Status: Former Tobacco Use Smoking risk assessment performed?: Yes Alcohol Intake: current Alcohol Intake frequency: a few times a month Alcohol type: wine Drug use: Never Substance use type: does not use Adopted: No Household members: spouse Housing: house Number of Children: 2 number of grandchildren: 3 current occupation: not working at this time What is your relationship status?: How often do you talk on the phone with friends or family?: three or more times per week How often do you get together with friends or relatives?: three or more times per week Panel score (0-1 are the most socially isolated patients): 2 What type of physical activity do you participate in: walking and additional Details: starting to get back into exercise, meditating daily Frequency: 5-6 times per week Seatbelt use: always Working smoke detector in home: Yes Fire extinguisher in home: Yes Carbon monox detector in home: Yes Do you feel safe at home: Yes Do you feel safe in your relationship?: Yes Female Reproductive History Menstrual control method: none Menopause type: natural Date of menopause: 04/21/10 History History 2 Para Hx # Term Pregnancies 2 Multiple births Hx # Pregnancies 0 Ectopic pregnancies 0 AB induced Hx Number of Living Children AB spontaneous Time Spent with Patient Time Spent with Patient: >85 minutes Time was spent: preparing to see the patient(eg.review tests), obtaining and/or reviewing separately otained hiistory, ordering medications,tests, procedures, indepentently interpreting results and counseling the patient
[2023-09-15 11:02] VITALS: BP 110/88; BP 114/87; BP 114/90; PULSE 61; PULSE 90; PULSE 93; RESP 18; TEMP 36.7; O2SAT 96
--- NOTE | 2023-09-18 10:18 | NUR.NOTE ---
Patient called with frustration about getting a referral to [facility] Electrophysiology, that she was told that she needed when she was in the ED. She stated that she was also told that one would be sent. Patient was admitted at that time. After reviewing the provider notes for Med/Surg and ED; the ED is the only one that refers to the need of this referral. I called Care Mgmt.; sent a referral to Anna so that she can send out the referral so that the patient can be seen. Nursing Note:
--- NOTE | 2023-09-22 15:17 | NUR.NOTE ---
Accessed pt chart. Patient called stating that she is trying to get the follow up that is mentioned in her portal notes. I told the patient that she could speak with the care managers at [facility] or the one that is at [place]. I suggested the one at [place] first and that she should be able to help her with all these referrals. Nursing Note:
== END 2023-09-15 12:39 | disposition home or self-care (01) ==
LOC: ER 09-14 02:34 → MS 09-14 03:56
PROVIDERS: Admitting Provider Family Medicine; Emergency Provider Student in an Organized Health Care Education/Training Program; PCP Nurse Practitioner; Visit Provider Family Medicine
DX: I48.0 Paroxysmal atrial fibrillation (principal); E78.5 Hyperlipidemia, unspecified; F32.A Depression, unspecified; I50.9 Heart failure, unspecified; Z95.3 Presence of xenogenic heart valve; Z79.899 Other long term (current) drug therapy; I11.0 Hypertensive heart disease with heart failure; K58.2 Mixed irritable bowel syndrome; Z85.43 Personal history of malignant neoplasm of ovary; F41.9 Anxiety disorder, unspecified
CPT/HCPCS: 00123; 36415; 71275; 80048; 80053; 85027; 87637; 93005; 96360; 99285; 71046; 81003; 83735; 83880; 84439; 84443; 84484; 85025; 85379; 85610; 85730; 93010; 99233; 99239; G0378; J3490

== ENCOUNTER 2023-09-18 15:04 | Outpatient (CLI) | payer MEDICARE, SELFPAY | END 2023-09-18 15:05 | disposition home or self-care (01) | PROVIDERS: PCP Nurse Practitioner; Visit Provider Nurse Practitioner Acute Care | DX: I48.91 Unspecified atrial fibrillation (principal) | CPT/HCPCS: 93270 ==

== ENCOUNTER 2023-10-06 07:49 | Outpatient (CLI) | payer MEDICARE, SELFPAY ==
--- NOTE | 2023-10-06 14:24 | W.CARDCONSUL ---
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 Wearing HOLTOR MONITOR, so no EKG done.. considering marleny BECKHAM (01/28/20). 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 2019 FREDI/BSO debulking. 6 cycles of Taxol/Carbo/Avastin. 3 yrs ARPi stopped 10/07/22. Q6mo exam with CA 125. Pelvic pain (Acute) Onset 05/2019 left sided. Depression (Chronic 08/08/15) Long-term use of Wellbutrin, stopped and takes CBD oil. Has increased vitamin D supplements. Complex cyst of left ovary (Acute) Pelvic pain (Acute) Aortic stenosis, severe (Acute) Followed at [facility], echo 11/29/21 w/ mod regurgitation Cough (Acute) Muscle spasm (Acute) Subclinical hypothyroidism (Acute 11/03/12) TSH slightly elevated in 05/2012 Started on Levothyroxine 2013 levothyroxin stopped 11/21/[address] 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 Clobetasol improving symptoms Hyperlipidemia, unspecified (Chronic 07/02/17) Hot flashes, menopausal (Acute 11/30/13) RX Gabapentin, 11/2013 Headache (Acute 06/06/11) Family history of cardiovascular disease (Acute 07/07/13) M Bx3; all >55yo Essential hypertension (Acute 06/06/15) Elevated blood pressure reading (Acute 08/29/11) ASCVD risk score: 1.6% DASH Plans on decreasing salt intake Elevated blood pressure reading without diagnosis of hypertension (Acute 08/29/11) ASCVD risk score: 1.6% DASH Plans on decreasing salt intake Dyspareunia (Acute 12/02/14) Atrophic vaginitis (Chronic 11/28/16) 10/2017 RX vaginal estrogen 10 mcg tablet 2x/week 02/2018 Rx for Estring. Aortic valve disorder (Acute 09/23/17) [facility] 09/17/17 Anxiety (Acute 12/23/12) Allergic rhinitis (Acute 11/03/12) History of Surgical Procedure (Chronic) a. sections x2. b. Laparoscopic appendectomy - 08/26/13. Appendiceal abscess (Acute) Hypothyroidism (Chronic) Medical History Notalgia paresthetica (~07/2022) 07/29/22 Derm detention current use of anticoagulants with INR goal of 2.0-3.0 dc'd 03/2022 Ovarian mass, left 07/08/2019 12 x 8 cm cystic mass with solid components. Patient has been referred to [facility] oncology. 10/07/22 F/U Abnormal ultrasound of pelvis Lichen sclerosus et atrophicus of the vulva Involving the periclitoral region and labia minora treated with clobetasol 0.05% with good results. Surgical History H/O ventricular septal myectomy (~01/29/22) S/P AVR (~01/29/22) H/O colectomy S/P total abdominal hysterectomy S/P total abdominal hysterectomy and bilateral salpingo-oophorectomy (07/20/19) bilateral pelvic and paraaortic lymphadenectomy, infracolic omentectomy, rectosigmoid resection and reanastomosis section x2 Appendectomy (08/26/13) Dr. Rabago Family History Mother Personal history of malignant neoplasm cervical Father No problems noted. Brother Myocardial infarction Brother Myocardial infarction Brother Myocardial infarction Grandfather Myocardial infarction Social History Smoking/Tobacco Use Status: Former Tobacco Use Smoking risk assessment performed?: Yes Alcohol Intake: current Alcohol Intake frequency: a few times a month Alcohol type: wine Drug use: Never Substance use type: does not use Adopted: No Household members: spouse Housing: house Number of Children: 2 number of grandchildren: 3 current occupation: not working at this time What is your relationship status?: How often do you talk on the phone with friends or family?: three or more times per week How often do you get together with friends or relatives?: three or more times per week Panel score (0-1 are the most socially isolated patients): 2 What type of physical activity do you participate in: walking and additional Details: starting to get back into exercise, meditating daily Frequency: 5-6 times per week Seatbelt use: always Working smoke detector in home: Yes Fire extinguisher in home: Yes Carbon monox detector in home: Yes Do you feel safe at home: Yes Do you feel safe in your relationship?: Yes Female Reproductive History Menstrual control method: none Menopause type: natural Date of menopause: 04/21/10 History History 2 Para Hx # Term Pregnancies 2 Multiple births Hx # Pregnancies 0 Ectopic pregnancies 0 AB induced Hx Number of Living Children AB spontaneous
--- NOTE | 2023-10-06 14:25 | W.CARDEVENT ---
Date of service: 10/06/23 Time of Service: 14:25 Cardiac Event Recorder Referring Provider:: Evelyne Hunt Indications:: Atrial fibrillation Cardiac Event Note: This is a cardiac event monitor. Patient was monitored for 6 days and 2 hours rhythm throughout was atrial fibrillation. Average heart rate was 81 Minimum heart rate was 58, maximum 125 There were no significant ventricular dysrhythmias Symptoms were reported which correlated with atrial fibrillation controlled ventricular response
== END 2023-10-06 07:50 | disposition home or self-care (01) ==
LOC: CARDOPNVT 07:49
PROVIDERS: PCP Nurse Practitioner; Visit Provider Internal Medicine Cardiovascular Disease
DX: I48.91 Unspecified atrial fibrillation (principal)
CPT/HCPCS: 93272

== ENCOUNTER 2023-12-01 02:06 | Outpatient (CLI) | payer MEDICARE, SELFPAY ==
--- OUTSIDE RECORDS SUMMARY | 2023-12-01 02:08 | XMS_ITS | Encounter Summary ---
[place] [address] Care Team Providers Care Lamps Tester And Inspector Name Role Phone Evelyne Hunt APRN Primary Care Provider [phone] Reason for Visit * Reason Onset Date Comments Questions 10/21/2023 About medication interaction (Paxlovid) Encounter Details Date Type Department Care Team (Late st Contact Info) Description 10/21/2023 Telephone Cardiology at [address] [phone] Maria Esther Villatoro, RN Questions (About medication interaction (Paxlovid)) Social History Tobacco Use Types Packs/Day Years Used Date Smoking Tobacco: Former Cigarettes Q uit: 07/12/1977 Smokeless Tobacco: Never Alcohol Use Standard Drinks/Week Comments Not Currently 0 (1 standard drink = 0.6 oz pur e alcohol) [facility] Utilities Answer Date Recorded In the past 12 months has e [employer], gas, oil, or water [employer] threatened to shut off services in your home? No 09/25/2023 Hunger Vital Sign Answer Date Recorded Worried About Running Out of Food in the Last Ye ar Not on file 09/25/2023 Within the past 12 months, t he food you bought just didn't last and you didn't have money to get more. Never true 09/25/2023 PRAPARE - Transportation Answer Date Re corded In the past 12 months, has l ack of transportation kept you from medical appointments or from getting medications? No 09/2023 In the past 12 months, has l ack of transportation kept you from meetings, work, or from getting things needed for daily living? No 09/25/2023 Housing Stability Vital Sign Answer Srikanth e Recorded In the last 12 months, was t here a time when you were not able to pay the mortgage or rent on time? No 09/25/2023 Number of Times Moved in the Last Year Not on fi le 09/25/2023 At any time in the past 12 m [facility], were you homeless or living in a senior care (including now)? No 09/25/2023 DH IPV Inpatient Questions Answer Date Recorded Does Anyone Try to Keep You From Having Contact with Others or Doing Things Outside Your Home? no 09/25/2023 Feels Threatened by Someone no 09/2023 Feels Unsafe at Home or Work/School no 09/25/2023 Physical Signs of Abuse Present no 09/25/2023 Sex and Gender Information Value Date Recorded Sex Assigned at Not on file Gender Identity Not on file Sexual Orientation Not on file documented as of this encounter Miscellaneous Notes * Telephone Encounter - Maria Esther Villatoro RN - 10/30/2023 1:49 PM EDT Pt was notified by DMITRY Grissom of the information below from RENU Morales. * Telephone Encounter - Carmen Castaneda PA - 10/21/2023 8:56 PM EDT Wilbert, I agree that she should avoid taking Paxlovid with the combination of the Eliquis, especially sinceit is for prophylactic use at this time. She can also review this interaction more in depth with her local pharmacist who will likely be able to provide further details on the specific interaction. All the best, Carmen * Telephone Encounter - Maria Esther Villatoro RN - 10/21/2023 4:00 PM EDT Ivana called today stating that she was exposed to COVID via her daughter and although she is currently not positive for it, she is wondering if she can take Paxlovid? She is concerned about a possible interaction between Paxlovid and her cardiac meds and wanted to check with her complementary health therapists first. This RN noted upon medication review/research that Paxlovid has a severe interaction warning with Eliquis which she is currently taking. It can cause life-threatening bleeding. Will send this encounter to pt's complementary health therapists for final review and call her back when we receive a response. documented in this encounter Plan of Treatment Upcoming Encounters Date Type Department Care Team (Latest Contact Info) Description 12/25/2023 9:[address] [place] [phone] Xavier Malhotra MD [facility] [place] [address] 12/29/2023 Hospital Encounter Electrophysiology Lab at [place] [phone] Xavier Malhotra MD [facility] [place] [address] Paroxysmal atrial fibrillation 12/29/2023 7:30 AM EDT - 12/29/2023 12:00 PM EDT Surgery Electrophysiology [place] [phone] Xavier Malhotra MD [facility] [place] [address] ELECTROPHYSIOLOGY PROCEDURE 01/14/2024 10:40 AM EDT Office Visit Cardiology at [address] [phone] Carmen Castaneda PA [facility] [place] [address] Scheduled Procedures Name Priority Associated Diagnoses Date/Ti me TRANSESOPHAGEAL ECHO DURING CATH/EP PROCEDURE Paroxysmal atrial fibrillation 12/29/2023 7:30 AM EDT documented as of this encounter Goals Goal Patient Goal Type Associated Problems Recent Progress Patient-Stated? Author DH Home Medication Compliance and Understanding Patient Facing Action Plan No Lani Vargas, [facility] Note: Maintain control of disease for as long as possible as assessed by tumor marker levels and scans in clinic every 3 to 6 months documented as of this encounter Visit Diagnoses Not on filedocumented in this encounter Care Teams Lamps Tester And Inspector Relationship Specialty Start Date End Date Evelyne Hunt APRN [address] [place] [address] PCP - General Internal Medicine 09/23/17 documented as of this encounter
--- OUTSIDE RECORDS SUMMARY | 2023-12-01 02:08 | XMS_ITS | Encounter Summary ---
Author Organization [facility] Address [facility] [place] [address] Care Team Providers Care Orthotic/Prosthetic Clinician Name Role Phone Evelyne Hunt APRN Primary Care Provider [phone] Reason for Referral * Consultation (Routine) - Authorized Specialty Diagnoses / Procedures Referred By Marcel edwards Referred To Contact Cardiology Diagnoses Atrial fibrillation, unspecified type S/P ED [facility] for HF & afib. Last seen 07/16/23 [facility]-Kspfzb-Kpgghb/Joan pt Lisy Ritter APRN [address] [place] [address] [place] [address] Mandeep Franco MD [facility] [place] [address] Referral ID Status Reason Start Date Expiration Date Visits Requested Visits Authorized [id number] Authorized Consult, Test & Treat PCP Updated and/or Approved 09/26/2023 09/25/2024 6 6 Encounter Details Date Type Department Care Team (Latest Contact Info) Description 09/26/2023 Transcribe Orders eDH Incoming Referrals [phone] Lisy Ritter APRN [facility] [address] [place] [address] Atrial fibrillation, unspecified type Social History Tobacco Use Types Packs/Day Years Used Date Smoking Tobacco: Former Cigarettes Q uit: 07/12/1977 Smokeless Tobacco: Never Alcohol Use Standard Drinks/Week Comments Not Currently 0 (1 standard drink = 0.6 oz pur e alcohol) [facility] Utilities Answer Date Recorded In the past 12 months has th e electric, gas, oil, or water company threatened to shut off services in your [...] any time in the past 12 m [facility], were you homeless or living in a halfway (including now)? No 09/25/2023 IPV Inpatient Questions Answer Date Recorded Does [...] on file documented as of this encounter Plan of Treatment Upcoming Encounters Date Type Department Care Team (Latest Contact Info) Description 12/25/2023 9:[address] [place] [place] [address] Xavier Malhotra MD [facility] [place] [address] 12/29/2023 Hospital Encounter [place] [phone] Xavier Malhotra MD [facility] [place] [address] Paroxysmal atrial fibrillation 12/29/2023 7:30 AM EDT - 12/29/2023 12:00 PM EDT Surgery [place] [phone] Xavier Malhotra MD [facility] [place] [address] ELECTROPHYSIOLOGY PROCEDURE 01/14/2024 10:40 AM EDT Office Visit Cardiology at [address] [phone] Carmen Castaneda PA [facility] [place] [address] Scheduled Procedures Name Priority Associated Diagnoses Date/Ti me TRANSESOPHAGEAL ECHO DURING CATH/EP PROCEDURE Paroxysmal atrial fibrillation 12/29/2023 7:30 AM EDT Scheduled Referrals Name Type Priority Associated Diagnoses Orde r Schedule Referral to Cardiology Outpatient Referral Routine Atrial fibrillation, unspecified type Ordered: 09/26/2023 documented as of this encounter Goals Goal Patient Goal Type Associated Problems Recent Progress Patient-Stated? Author DH Home Medication Compliance and Understanding Patient Facing Action Plan Lani Love, [facility] Note: Maintain control of disease for as long as possible as assessed by tumor marker levels and scans in clinic every 3 to 6 months documented as of this encounter Visit Diagnoses Diagnosis Atrial fibrillation, unspecified type Paroxysmal atrial fibrillation Atrial fibrillation Paroxysmal atrial fibrillation Atrial fibrillation documented in this encounter Care Teams Orthotic/Prosthetic Clinician Relationship Specialty Start Date End Date Evelyne Hunt APRN [address] [place] [address] PCP - General Internal Medicine 09/23/17 documented as of this encounter
--- OUTSIDE RECORDS SUMMARY | 2023-12-01 02:08 | XMS_ITS | Encounter Summary ---
Author Organization [facility] Address [facility] [place] [address] Care Team Providers Care Ice Cream Truck Driver Name Role Phone Evelyne Hunt APRN Primary Care Provider [phone] Reason for Referral * Diagnostic Test (Routine) - Authorized Specialty Diagnoses / Procedures Referred By Contbeatriz t Referred To Contact Radiology Diagnoses Paroxysmal atrial fibrillation Procedures CT Cardiac for Morphology & Function Nadia Good PA [facility] [place] [address] [facility] [place] [address] Referral ID Status Reason Start Date Expiration Date Visits Requested Visits Authorized [id number] Authorized Specialty Service Requested 11/18/2023 05/20/2025 1 1 Encounter Details Date Type Department Care Team (Late st Contact Info) Description 11/18/2023 Orders Only Cardiology at [address] [phone] Nadia Godo PA [facility] [place] [address] Paroxysmal atrial fibrillation Social History Tobacco Use Types Packs/Day Years Used Date Smoking Tobacco: Former Cigarettes Q uit: 07/12/1977 Smokeless Tobacco: Never Alcohol Use Standard Drinks/Week Comments Not Currently 0 (1 standard drink = 0.6 oz pur e alcohol) [facility] Utilities Answer Date Recorded In the past [...] any time in the past 12 m [facility], were you homeless or living in a usp (including now)? No 09/25/2023 IPV Inpatient Questions [...] 9:[address] [place] [phone] Xavier Malhotra MD [facility] [place] [address] 12/29/2023 Hospital Encounter [place] [phone] Xavier Malhotra MD [facility] [place] [address] Paroxysmal atrial fibrillation 12/29/2023 7:30 AM EDT - 12/29/2023 12:00 PM EDT Surgery Electrophysiology Lab at [place] [phone] Xavier Malhotra MD [facility] [place] [address] ELECTROPHYSIOLOGY PROCEDURE 01/14/2024 10:40 AM EDT Office [place] [address] Carmen Castaneda PA [facility] [place] [address] Scheduled Orders Name Type Priority Associated Diagnoses Orde r Schedule CT Cardiac for Morphology & Function Imaging Routine Paroxysmal atrial fibrillation Expected: 12/02/2023 (Approximate), Expires: 06/02/2024 Scheduled Procedures Name Priority Associated Diagnoses Date/Ti me TRANSESOPHAGEAL ECHO DURING CATH/EP PROCEDURE Paroxysmal atrial fibrillation 12/29/2023 7:30 AM EDT documented as of this encounter Goals Goal Patient Goal Type Associated Problems Recent Progress Patient-Stated? Author [facility] Medication Compliance and Understanding Patient Facing Action Plan No Lani Vargas, [facility] Note: Maintain control of disease for as long as possible as assessed by tumor marker levels and scans in clinic every 3 to 6 months documented as of this encounter Visit Diagnoses Diagnosis Paroxysmal atrial fibrillation Atrial fibrillation Paroxysmal atrial fibrillation Atrial fibrillation Paroxysmal atrial fibrillation Atrial fibrillation documented in this encounter Care Teams Ice Cream Truck Driver Relationship Specialty Start Date End Date Evelyne Hunt APRN [address] [place] [address] PCP - General Internal Medicine 09/23/17 documented as of this encounter
--- OUTSIDE RECORDS SUMMARY | 2023-12-01 02:08 | XMS_ITS | Encounter Summary ---
Author Organization [facility] [place] [address] Care Team Providers Care Audiology Doctor Name Role Phone Evelyne Hunt APRN Primary Care Provider [phone] Encounter Details Date Type Department Care Team (Latest Contact Info) Description 11/18/2023 Travel Social History Tobacco Use Types Packs/Day Years Used Date Smoking Tobacco: Former Cigarettes Q uit: 07/12/1977 Smokeless Tobacco: Never Alcohol Use Standard Drinks/Week Comments Not Currently 0 (1 standard drink = 0.6 oz pur e alcohol) [facility] Utilities Answer Date Recorded In the [...] any time in the past 12 m [facility], were you homeless or living in a [...] 9:[address] Scan at [place] [phone] Xavier Malhotra MD [facility] [place] [address] 12/29/2023 Hospital Encounter Electrophysiology Lab at [place] [phone] Xavier Malhotra MD [facility] [place] [address] Paroxysmal atrial fibrillation 12/29/2023 7:30 AM EDT - 12/29/2023 12:00 PM EDT Surgery Electrophysiology Lab at [place] [phone] Xavier Malhotra MD [facility] [place] [address] ELECTROPHYSIOLOGY PROCEDURE 01/14/2024 10:40 AM EDT Office Visit Cardiology at [place] [phone] Carmen Castaneda PA [facility] [place] [address] Scheduled Procedures Name Priority Associated Diagnoses Date/Ti me TRANSESOPHAGEAL ECHO DURING CATH/EP PROCEDURE Paroxysmal atrial fibrillation 12/29/2023 7:30 AM EDT documented as of this encounter Goals Goal Patient Goal Type Associated Problems Recent Progress Patient-Stated? Author DH Home Medication Compliance and Understanding Patient Facing Action Plan Lani Love, [facility] Note: Maintain control of disease for as long as possible as assessed by tumor marker levels and scans in clinic every 3 to 6 months documented as of this encounter Visit Diagnoses Not on filedocumented in this encounter Care Teams Audiology Doctor Relationship Specialty Start Date End Date Evelyne Hunt APRN [address] [place] [address] PCP - General Internal Medicine 09/23/17 documented as of this encounter
--- OUTSIDE RECORDS SUMMARY | 2023-12-01 02:08 | XMS_ITS | Encounter Summary ---
Author Organization [facility] Address [facility] [place] [address] Care Team Providers Care Internal Control Analyst Name Role Phone MarileeEvelyne hoffmann APRN Primary Care Provider [phone] Reason for Referral * Physical Therapy (Routine) - Authorized Specialty Diagnoses / Procedures Referred By Contbeatriz t Referred To Contact Physical Therapy Diagnoses Dyspareunia, female Iram Laird MD [facility] [address] OBST[place] [address] Physical Therapy, Jerem[address] [address] Referral ID Status Reason Start Date Expiration Date Visits Requested Visits Authorized [id number] Authorized Evaluate and Treat 11/09/2023 05/07/2024 12 12 Encounter Details Date Type Department Care Team (Late st Contact Info) Description 11/07/2023 Orders Only [place] [address] Sayda Doan RN Dyspareunia, female Social History Tobacco Use Types Packs/Day Years Used Date Smoking Tobacco: Former Cigarettes Q uit: 07/12/1977 Smokeless Tobacco: Never Alcohol Use Standard Drinks/Week Comments Not Currently 0 (1 standard drink = 0.6 oz pur e alcohol) [facility] Utilities Answer Date Recorded In the past 12 months has [employer], gas, oil, or water company threatened to [...] any time in the past 12 m [facility], were you homeless or living in a penitentiary (including now)? No 09/25/2023 IPV Inpatient Questions [...] 9:[address] [place] [phone] Xavier Malhotra MD [facility] [place] [address] 12/29/2023 Hospital Encounter [place] [phone] Xavier Malhotra MD [facility] [place] [address] Paroxysmal atrial fibrillation 12/29/2023 7:30 AM EDT - 12/29/2023 12:00 PM EDT Surgery [place] [phone] Xavier Malhotra MD [facility] [place] [address] ELECTROPHYSIOLOGY PROCEDURE 01/14/2024 10:40 AM EDT Office Visit Cardiology at [address] [phone] Carmen Castaneda PA [facility] [place] [place] [address] Scheduled Procedures Name Priority Associated Diagnoses Date/Ti me TRANSESOPHAGEAL ECHO DURING CATH/EP PROCEDURE Paroxysmal atrial fibrillation 12/29/2023 7:30 AM EDT Scheduled Referrals Name Type Priority Associated Diagnoses Orde r Schedule Referral to Physical Therapy Outpatient Referral Routine Dyspareunia, female Ordered: 11/09/2023 documented as of this encounter Goals Goal Patient Goal Type Associated Problems Recent Progress Patient-Stated? Author [facility] Medication Compliance and Understanding Patient Facing Action Plan Lani Love, [facility] Note: Maintain control of disease for as long as possible as assessed by tumor marker levels and scans in clinic every 3 to 6 months documented as of this encounter Visit Diagnoses Diagnosis Dyspareunia, female Dyspareunia Paroxysmal atrial fibrillation Atrial fibrillation Paroxysmal atrial fibrillation Atrial fibrillation documented in this encounter Care Teams Internal Control Analyst Relationship Specialty Start Date End Date Evelyne Hunt APRN [address] [place] [address] PCP - General Internal Medicine 09/23/17 documented as of this encounter
--- OUTSIDE RECORDS SUMMARY | 2023-12-01 02:08 | XMS_ITS | Encounter Summary ---
Author Organization [facility] Address [facility] [place] [address] Care Team Providers Care Upholstery Tech Name Role Phone Evelyne Hunt APRN Primary Care Provider [phone] Reason for Referral * Diagnostic Test (Routine) - Closed Specialty Diagnoses / Procedures Referred By Contac t Referred To Contact Cardiology Diagnoses Atrial fibrillation, unspecified type SOB (shortness of breath) Fatigue, unspecified type Procedures Ziopatch 48 Hrs-15 Days Carmen Castaneda PA [facility] [place] [address] [facility] [place] [address] Referral ID Status Reason Start Date Expiration Date V isits Requested Visits Authorized [id number] Closed Specialty Service Requested 10/09/2023 10/08/2024 1 1 Encounter Details Date Type Department Care Team (Late st Contact Info) Description 10/09/2023 Orders Only Cardiology at [address] [phone] Carmen Castaneda PA [facility] [place] [address] Atrial fibrillation, unspecified type (Primary Dx); SOB (shortness of breath); Fatigue, unspecified type Social History Tobacco Use Types Packs/Day Years Used Date Smoking Tobacco: Former Cigarettes Q uit: 07/12/1977 Smokeless Tobacco: Never Alcohol Use Standard Drinks/Week Comments Not Currently 0 (1 standard drink = 0.6 oz pur e alcohol) [facility] Utilities Answer Date Recorded In the [...] any time in the past 12 m [facility], were you homeless or living in a prison (including now)? No 09/25/2023 IPV Inpatient Questions [...] 9:[address] [place] [phone] Xavier Malhotra MD [facility] [place] [address] 12/29/2023 Hospital Encounter Electrophysiology Lab at [place] [phone] Xavier Malhotra MD [facility] [place] [address] Paroxysmal atrial fibrillation 12/29/2023 7:30 AM EDT - 12/29/2023 12:00 PM EDT Surgery [place] [phone] Xavier Malhotra MD [facility] [place] [place] [address] ELECTROPHYSIOLOGY PROCEDURE 01/14/2024 10:40 AM EDT Office Visit Cardiology at [address] [phone] Carmen Castaneda PA [facility] [place] [address] Scheduled Procedures Name Priority Associated Diagnoses Date/Ti me TRANSESOPHAGEAL ECHO DURING CATH/EP PROCEDURE Paroxysmal atrial fibrillation 12/29/2023 7:30 AM EDT documented as of this encounter Goals Goal Patient Goal Type Associated Problems Recent Progress Patient-Stated? Author [facility] Medication Compliance and Understanding Patient Facing Action Plan Lani Love, [facility] Note: Maintain control of disease for as long as possible as assessed by tumor marker levels and scans in clinic every 3 to 6 months documented as of this encounter Results * Ziopatch 48 Hrs-15 Days (10/31/2023 7:27 AM EDT) Pathologist [facility] Total Enrollment Period [id number] IRHYTHM Anatomical Region Laterality Modality Other 10/31/2023 Narrative 11/28/2023 7:53 AM EDT [facility] ? [facility]io [facility] Ambulatory Cardiac Event Monitor Report Indication for Study: [Unspecified atrial fibrillation] Duration of recording: ??[10 days 19 hours] Summary Data: Minimum rate: ??[44] Average rate: ??[62] Maximum rate: ??[89] Predominant Rhythm: ??[Normal sinus rhythm] Atrial fibrillation: ??[None seen] Significant Pauses: ??[None seen] Patient Diary Events: Triggered Events (button pushes): ??[9] Diary Events: [0] Ectopic beats: Atrial premature beats (APC? s): [Less than 1%] Ventricular premature beats (VPC's): [Less than 1%] Lucas Rhythm Findings: 1. ??[Throughout the recording normal sinus rhythm is the predominant rhythm with an average heart rate of 62 bpm Rare isolated supraventricular ectopic beats were seen. ??There were 52 supraventricular tachycardia episodes with the longest episode lasting 25 seconds and the fastest for 7 beats at a rate of 160 bpm. ??These episodes where symptomatic. ??There were no episodes of atrial fibrillation Rare isolated premature ventricular contractions were seen with no complex ventricular arrhythmia episodes There were no pauses] Note: ??The full PDF version of this Zio evaluation is available for review. ??For medical providers accessing via the electronic medical record, the PDF can be found on the Chart Review > Media tab. ??For patients accessing the study from [facility] (My Chart), click on the link or links found in the IMAGES area below the text of the report. Valeriy Waddell MD FACC Mandeep Franco MD CARDIAC SERVICES [facility] documented in this encounter Visit Diagnoses Diagnosis Atrial fibrillation, unspecified type- Primary SOB (shortness of breath) Shortness of breath Fatigue, unspecified type Atrial fibrillation, unspecified type SOB (shortness of breath) Shortness of breath Fatigue, unspecified type Paroxysmal atrial fibrillation Atrial fibrillation Paroxysmal atrial fibrillation Atrial fibrillation documented in this encounter Care Teams Upholstery Tech Relationship Specialty Start Date End Date Evelyne Hunt APRN [address] [place] [address] PCP - General Internal Medicine 09/23/17 documented as of this encounter
--- OUTSIDE RECORDS SUMMARY | 2023-12-01 02:08 | XMS_ITS | Encounter Summary ---
Author Organization [facility] Address [facility] [place] [address] Care Team Providers Care Sausage Maker Name Role Phone Evelyne Hunt APRN Primary Care Provider [phone] Encounter Details Date Type Department Care Team (Latest Contact Info) Description 11/04/2023 9:35 AM EDT - 11/04/2023 11:59 PM EDT Hospital Encounter Hematology [place] [address] Ovarian cancer, unspecified laterality Discharge Disposition: Home Social History Tobacco Use Types Packs/Day Years Used Date Smoking Tobacco: Former Cigarettes Q uit: 07/12/1977 Smokeless Tobacco: Never Alcohol Use Standard Drinks/Week Comments Not Currently 0 (1 standard drink = 0.6 oz pur e alcohol) [facility] Utilities Answer Date Recorded In the past 12 months has e [employer], gas, oil, or water [employer] threatened to shut off services in your [...] any time in the past 12 m [facility], were you homeless or living in a chcf (including now)? No 09/25/2023 DH IPV Inpatient [...] on file documented as of this encounter Medications at Time of Discharge Medication Sig Dispensed Refills Start Date End Date metoproloL tartrate (Lopressor) 25 mg tabletIndications:SOB (shortness of breath) Take 1 tablet by mouth as needed. 180 tablet 3 10/17/2023 magnesium oxide (Mag-Ox) 400 mg (241.3 mg magnesium) TabletIndications:Atria l fibrillation, unspecified type Take 1 tablet by mouth daily. 10/17/2023 Eliquis 5 mg tablet Take 1 tablet by mouth 2 times daily. 09/19/2023 metoprolol succinate XL (Toprol-XL) 50 mg ER 24 hr tablet Take 1.5 tablets by mouth nightly. 30 tablet 3 09/25/2023 aspirin EC 81 mg EC (DR) tablet daily. 02/22/2022 clobetasoL (Temovate) 0.05 % OintmentIndications:Lic hen sclerosus et atrophicus Apply topically daily. 30 g 10/07/2022 cholecalciferol, Vitamin D3, 50 mcg (2,000 unit) Capsule Take by mouth. multivitamin Capsule Take 1 capsule by mouth daily. traZODone (Desyrel) 50 mg Tablet TAKE ONE TO TWO TABLETS BY MOUTH AT BEDTIME NEEDED 02/20/2022 atorvastatin (Lipitor) 10 mg Tablet Take 10 mg by mouth daily. 11/24/2021 buPROPion XL (Wellbutrin XL) 300 mg Tablet Extended Release 24 hr TK 1 T PO QAM 10/01/2019 documented as of this encounter Plan of Treatment Upcoming Encounters Date Type Department Care Team (Latest Contact Info) Description 12/25/2023 9:[address] Scan at [place] [phone] Xavier Malhotra MD [facility] [place] [address] 12/29/2023 Hospital Encounter [place] [phone] Xavier Malhotra MD [facility] [place] [address] Paroxysmal atrial fibrillation 12/29/2023 7:30 AM EDT - 12/29/2023 12:00 PM EDT Surgery [place] [phone] Xavier Malhotra MD [facility] [place] [address] ELECTROPHYSIOLOGY PROCEDURE 01/14/2024 10:40 AM EDT Office Visit Cardiology at [address] [phone] Carmen Castaneda PA [facility] [place] [address] Scheduled Procedures Name Priority Associated Diagnoses Date/Ti me TRANSESOPHAGEAL ECHO DURING CATH/EP PROCEDURE Paroxysmal atrial fibrillation 12/29/2023 7:30 AM EDT documented as of this encounter Goals Goal Patient Goal Type Associated Problems Recent Progress Patient-Stated? Author [facility] Medication Compliance and Understanding Patient Facing Action Plan Lani Love, [facility] Note: Maintain control of disease for as long as possible as assessed by tumor marker levels and scans in clinic every 3 to 6 months documented as of this encounter Procedures Procedure Name Priority Date/Time Associated Diagnosis Comments CANCER ANTIGEN 125 Routine 11/04/2023 9: 44 AM EDT Ovarian cancer, unspecified laterality documented in this encounter Results * Cancer Antigen 125 (11/04/2023 9:44 AM EDT) CA 125 9.9 <=38.1 unit/mL [facility] Comment: CA 125 Reference Interval ??Postmenopausal: 6.2 to 31.5 U/mL. ??Premenopausal: 6.9 to 45.9 U/mL. ??Pre and Postmenopausal subjects combined: 6.4 to 38.1 U/mL. This result was generated using a Elo Elizabeth immunoassay. ??Results obtained from other methods or manufacturers cannot be used interchangeably with this method. Blood 11/04/2023 9:44 AM EDT 11/04/2023 9:53 AM EDT Narrative Resulting Agency Comment Spec In Lab Iram Laird MD CHEMISTRY ORDERABLES Performing Organization Address City/State/[facility] Co de Phone Number [facility] [place] [address] documented in this encounter Visit Diagnoses Diagnosis Ovarian cancer, unspecified laterality Paroxysmal atrial fibrillation Atrial fibrillation Paroxysmal atrial fibrillation Atrial fibrillation documented in this encounter Care Teams Sausage Maker Relationship Specialty Start Date End Date Evelyne Hunt APRN [address] [place] [address] PCP - General Internal Medicine 09/23/17 documented as of this encounter
--- OUTSIDE RECORDS SUMMARY | 2023-12-01 02:08 | XMS_ITS | Encounter Summary ---
Author Organization [facility] [address] Care Team Providers Care Mixing Machine Operator Name Role Phone Evelyne Hunt APRN Primary Care Provider [phone] Encounter Details Date Type Department Care Team (Latest Contact Info) Description 11/04/2023 Travel Social History Tobacco Use Types Packs/Day Years Used Date Smoking Tobacco: Former Cigarettes Q uit: 07/12/1977 Smokeless Tobacco: Never Alcohol Use Standard Drinks/Week Comments Not Currently 0 (1 standard drink = 0.6 oz pur e alcohol) [facility] Utilities Answer Date Recorded In the [...] any time in the past [address] [facility], were you homeless or living in a [...] 9:[address] Scan at [place] [phone] Xavier Malhotra MD [facility] [place] [place] [address] 12/29/2023 Hospital Encounter Electrophysiology Lab at [place] [phone] Xavier Malhotra MD [facility] [place] [address] Paroxysmal atrial fibrillation 12/29/2023 7:30 AM EDT - 12/29/2023 12:00 PM EDT Surgery Electrophysiology Lab at [place] [phone] Xavier Malhotra MD [facility] [place] [address] ELECTROPHYSIOLOGY PROCEDURE 01/14/2024 10:40 AM EDT Office Visit Cardiology at [place] [phone] Carmen Castaneda PA [facility] [place] [address] Scheduled Procedures Name Priority Associated Diagnoses Date/Ti me TRANSESOPHAGEAL ECHO DURING CATH/EP PROCEDURE Paroxysmal atrial fibrillation 12/29/2023 7:30 AM EDT documented as of this encounter Goals Goal Patient Goal Type Associated Problems Recent Progress Patient-Stated? Author [facility] Home Medication Compliance and Understanding Patient Facing Action Plan Lani Love, [facility] Note: Maintain control of disease for as long as possible as assessed by tumor marker levels and scans in clinic every 3 to 6 months documented as of this encounter Visit Diagnoses Not on filedocumented in this encounter Care Teams Mixing Machine Operator Relationship Specialty Start Date End Date Evelyne Hunt APRN [address] [place] [address] PCP - General Internal Medicine 09/23/17 documented as of this encounter
--- OUTSIDE RECORDS SUMMARY | 2023-12-01 02:08 | XMS_ITS | Encounter Summary ---
Author Organization [facility] Address [facility] [place] [address] Care Team Providers Care Webmaster Name Role Phone Evelyne Hunt APRN Primary Care Provider [phone] Reason for Referral * Consultation (Urgent) - Closed Specialty Diagnoses / Procedures Referred By Contact Referred To Contact Electrophysiology / Cardiology Diagnoses Palpitations S/P ED @ for worsening fatigue, palpitations and nausea in setting of Afib in which she underwent TON/cardioversion successfully on 09/24. 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 Jody De Santiago MD [address] [place] [address] [place] [address] [facility] Cardiology [address] [place] [phone] Referral ID Status Reason Start Date Expiration Date V isits Requested Visits Authorized [id number] Closed Consult, Test & Treat 09/26/2023 09/25/2024 1 1 Encounter Details Date Type Department Care Team (Late st Contact Info) Description 09/26/2023 Transcribe Orders Cardiology at [address] [phone] Alyssa Keene Stephany Palpitations Social History Tobacco Use Types Packs/Day Years Used Date Smoking Tobacco: Former Cigarettes Q uit: 07/12/1977 Smokeless Tobacco: Never Alcohol Use Standard Drinks/Week Comments Not Currently 0 (1 standard drink = 0.6 oz pur e alcohol) [facility] Utilities Answer Date Recorded In the [...] any time in the past 12 m [facility], were you homeless or living in a detention (including now)? No 09/25/2023 IPV Inpatient Questions [...] 9:[address] [place] [phone] Xavier Malhotra MD [facility] [place] [address] 12/29/2023 Hospital Encounter [place] [phone] Xavier Malhotra MD [facility] [place] [address] Paroxysmal atrial fibrillation 12/29/2023 7:30 AM EDT - 12/29/2023 12:00 PM EDT Surgery [place] [phone] Xavier Malhotra MD [facility] [place] [address] ELECTROPHYSIOLOGY PROCEDURE 01/14/2024 10:40 AM EDT Office Visit Cardiology at [address] [phone] Carmen Castaneda PA [facility] [place] [address] Scheduled Procedures Name Priority Associated Diagnoses Date/Ti me TRANSESOPHAGEAL ECHO DURING CATH/EP PROCEDURE Paroxysmal atrial fibrillation 12/29/2023 7:30 AM EDT Scheduled Referrals Name Type Priority Associated Diagnoses Order Schedule Referral to Cardiac Electrophysiology Outpatient Referral Urgent Palpitations Ordered: 09/26/2023 documented as of this encounter Goals Goal Patient Goal Type Associated Problems Recent Progress Patient-Stated? Author [facility] Medication Compliance and Understanding Patient Facing Action Plan Lani Love, [facility] Note: Maintain control of disease for as long as possible as assessed by tumor marker levels and scans in clinic every 3 to 6 months documented as of this encounter Visit Diagnoses Diagnosis Palpitations Paroxysmal atrial fibrillation Atrial fibrillation Paroxysmal atrial fibrillation Atrial fibrillation documented in this encounter Care Teams Webmaster Relationship Specialty Start Date End Date Evelyne Hunt APRN [address] [place] [address] PCP - General Internal Medicine 09/23/17 documented as of this encounter
--- OUTSIDE RECORDS SUMMARY | 2023-12-01 02:08 | XMS_ITS ---
[place] [address] Care Team Providers Care Grain Roaster Name Role Phone Evelyne Hunt Dat STEVEN Primary Care Provider [phone] Active Problems Problem Noted Date Diagnosed Date Atrial fibrillation 09/25/2023 (aortic stenosis) 01/29/2022 BRCA negative 10/18/2019 Overview (10/18/2019): no germline (heritable) mutation was detected. This means that Ivana does not carry a mutation in the genes detectable by this test. The genes included on this panel are APC, KIRSTIN, BARD1, BMPR1A, BRCA1, BRCA2, BRIP1, CDH1, CDK4, CDKN2A, CHEK2, DICER1, HOXB13, MLH1, MRE11A, MSH2, MSH6, MUTYH, NBN, NF1, PALB2, PMS2, POLD1, POLE, PTEN, RAD50, RAD51C, RAD51D, SMAD4, SMARCA4, STK11, TP53, (sequencing and deletion/duplication); EPCAM andGREM1 (deletion/duplication only). ?? The TumorNext-HRD analysis showed no mutation in Ivana's tumor tissue. The genes included on this panel are KIRSTIN, BARD1, BRIP1, CHEK2, MRE11A, NBN, PALB2, RAD51C, RAD51D, BRCA1, BRCA2 (sequencing only). ? Ovarian cancer, lateral, sta ge IIIb high-grade serous/endometrioid, 07/20/2019 s/p FREDI/BSO/oment/PPALND/RSReanstomosis 08/10/2019 HTN (hypertension) 07/13/2019 Aortic valve stenosis 05/18/2019 Chest pain 04/17/2018 SVT (supraventricular tachycardia) 09/17/2017 Bicuspid aortic valve 09/17/2017 Hypothyroidism 09/10/2013 Current Oncology Plans [facility] Plan Start Date:09/20/2019 Plan Provider:Amrit Ram MD Linked Problems Ovarian cancer, unspecified laterality Treatment Medications No medications scheduled. Past Plans ADULT TREATMENT Plan Name Start Date Discontinue Date Treatment Medications Discontinue Reason Plan Provider Cycles BCN AMB VALVE MACHINE OPERATOR ONC OVARIAN CANCER - CARBOplatin / PACLitaxel / BEVACizumab 08/30/19 20 06/28/2020 BEVACizumab-awwb (MVASI) in sodium chloride 0.9% 100 mL infusionCARBOplatin (Paraplatin) in 150 mL infusionPACLitaxeL (Taxol) in Non-PVC sodium chloride 0.9% 250 mL infusion Therapy Complete Natalie Vallejo MD 6 of 6 cycles started Radiation Treatments * No radiation treatments are documented for this patient in [facility]. Treatments may have been administered in another system. Resolved Problems Problem Noted Date Diagnosed Date Resolved Date Pelvic mass 07/20/2019 08/10/2019 H/O: 09/10/2013 07/13/2019 Overview (09/10/2013): x2
--- OUTSIDE RECORDS SUMMARY | 2023-12-01 02:08 | XMS_ITS | Encounter Summary ---
Author Organization [facility] Address [facility] [place] [address] Care Team Providers Care Imaging Engineer Name Role Phone Evelyne Hunt APRN Primary Care Provider [phone] Reason for Visit * Reason Comments Follow-up 6 month follow u Encounter Details Date Type Department Care Team (Late st Contact Info) Description 11/04/2023 10:20 AM EDT Office Visit [place] [address] Iram Laird MD [facility] [address] OBSTETRICS [place] [address] Ovarian cancer, unspecified laterality Social History Tobacco Use Types Packs/Day Years Used Date Smoking Tobacco: Former Cigarettes Q uit: 07/12/1977 Smokeless Tobacco: Never Alcohol Use Standard Drinks/Week Comments Not Currently 0 (1 standard drink = 0.6 oz pur e alcohol) [facility] Utilities Answer Date Recorded In the past 12 months has e [employer], gas, oil, or water [employer] threatened to shut off services in your [...] any time in the past 12 m [facility], were you homeless or living in a correction (including now)? No 09/25/2023 DH IPV Inpatient [...] on file documented as of this encounter Last Filed Vital Signs Vital Sign Reading Time Taken Comments Blood Pressure 133/87 11/04/2023 11:16 AM EDT Pulse 53 11/04/2023 11:16 AM EDT Temperature 36.4 ??C (97.6 ??F) 11/04/2023 11:16 AM E DT Respiratory Rate 15 11/04/2023 11:16 AM EDT Oxygen Saturation 99% 11/04/2023 11:16 AM EDT Inhaled Oxygen Concentration - - Weight 55.6 kg (122 lb 8 oz) 11/04/2023 11:16 AM EDT Height 165.1 cm (5' 5) 11/04/2023 11:16 AM EDT Body Mass Index 20.39 11/04/2023 11:16 AM EDT documented in this encounter Progress Notes * Iram Laird MD - 11/04/2023 10:20 AM EDT Division [place] [address] 11/04/2023 Follow-up Visit: Patient Active Problem List Diagnosis Code Hypothyroidism E03.9 SVT (supraventricular tachycardia) I47.10 Bicuspid aortic valve Q23.1 Chest pain R07.9 Aortic valve stenosis I35.0 HTN (hypertension) I10 Ovarian cancer, lateral, stage IIIb high-grade serous/endometrioid, 07/20/2019 s/p FREDI/BSO/oment/PPALND/RSReanstomosis C56.9 BRCA negative Z13.71 (aortic stenosis) I35.0 Atrial fibrillation I48.91 History anemia necessitated transfusion X 2 01/2020 Oncology history: 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 07/20/19 TAHBSO/omentectomy/rectosigmoid resection/PPALND. R0. CA125 350. 08/30/19 #1 Taxol/carbo/Avastin - 01/08 #6 12/2019 Patient started PARP inhibitors 200 mg bid 04/11: CA125 14.9 10/07/22: CA125 10.9, Stopped PARP inhibitor 11/04/23: CA125 9.9 Tumor Testing: The CancerNext analysis of Ivana's blood showed no germline (heritable) mutation was detected. This [...] (sequencing and deletion/duplication); EPCAM andGREM1 (deletion/duplication only). The TumorNext-HRD analysis showed no mutation in Ivana's tumor tissue. The genes included on this panel are KIRSTIN, BARD1, BRIP1, CHEK2, MRE11A, NBN, PALB2, RAD51C, RAD51D, BRCA1, BRCA2 (sequencing only). 01/25/20: Niraparib maintenance, 200-->100 mg qhs Pertinent history: On 01/29/22, she underwent an aortic valve replacement and septal for progressive aortic stensosis,in the setting of congenital bicuspid valve. She has recovered from this well and is off of warfarin and back to driving. She remains established with a pourer buggy ladle. Subjective: Gabi Luna returns to the office today for a cancer surveillance visit. She stopped taking her PARP inhibitor on 10/07/22. She went to the lab prior to today's appointment to obtain CA 125, which was wnl at 9.9. Last visit 04/2023 Interval history: GI: Saw primary care for abdominal discomfort no precipitating factors , healthy diet. Small amountfull bowel movement daily does not feel like normal evacuation sometimes. Gas worse and foul smelling more than usual. Not more distended and no unusual bloating. All of the bowel discomfort has since resolved. Vulva: Has had lichen flare recently. Using clobetasol, pea sized 2x per week. Right side there are3 spots that are bothering her. Urinary: No problems Neuropathy: Longstanding neuropathy is stable, located on the bottoms of her feet, does not impact gait or stability Ambulation: Not as active with cardiac sx Cardiac: Visiting with pourer buggy ladle next week. Had an admission on 09/23/23 for A fib and underwent cardioversion. Metoprolol and eliquis now. Hx of SVT in addition to Afib. Patient can feel the difference. Hx open heart surgery in 2021 with valve replacement. She lost her friend Emelina to ovarian cancer last week, which was upsetting. She reports no changes to her medical history, surgical history, medications, allergies since her last visit. ROS - Negative for fever, chills, SOB, chest pain, AUB Health care maintenance Mammogram - [facility] Colonoscopy - 04/2021 DATA - Latest Reference Range & Units 10/07/22 08:19 01/06/23 07:31 05/05/23 11:20 11/04/23 09:44 CA 125 <=38.1 unit/mL 10.9 10.7 11.1 9.9 Objective: BP 133/87 (Patient Position: Sitting) Pulse 53 Temp 36.4 ??C (97.6 ??F) (Temporal) Resp 15 Ht 165.1 cm (5' 5) Wt 55.6 kg (122 lb 8 oz) SpO2 99% BMI 20.39 kg/m?? General: Well appearing female. Skin: no rashes Neck: no thyromegaly Lungs: clear to auscultation bilaterally, no wheezes or rales Heart: bradycardia, regular rhythm, normal S1/S2, + murmur Breast: no axillary or supraclavicular lymphadenopathy Abdomen: vertical midline scar well healed; no masses or hepatosplenomegaly; soft, nontender, nondistended Extremities: no lower ext edema Neuro: grossly intact Pelvic: External genitalia/vulva- hypopigmentation in an hourglass distribution, atrophy of labia majora, minimal clitoral beaver retraction Bartholin's- normal, no masses or tenderness Urethral meatus- normal size, no prolapse, no lesions Vagina- light pink vaginal mucosa, physiologic discharge, no blood in the vault, no lesions, no adnexal masses palpated Bladder- no masses or tendernes Pelvic floor - pain and hypertonicity at the levator ani, no prasad with light touch of the vulva, main with initial insertion, no pain with deep penetration Assessment and Plan: Gabi Luna is a 63 y.o. 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 #Stage IIIB Mixed Serous and Endometrioid Ovarian Cancer In 2019 she underwent FREDI BSO Debulking, followed by 6 cycles of Taxol/Carbo/Avastin. She subsequently did almost 3 years of PARPi. She stopped the PARPi on 10/07/2022 with a plan for i5pywnv visits and CA-125. CA 125 values have been stable throughout the year. Today she is doing well and has no evidence of recurrent cancer. CA125 was reassuring. Based on reassuring exam today, we will continue with surveillance physical exam and CA125 every [address] Laird or TENISHA. Signs and symptoms of recurrent disease reviewed. - RTC 6 months + CA 125 #Lichen Sclerosis Symptomatic and signs of active disease on physical exam today. - Continue clobetasol twice weekly. - Referral to Dr. Webster, vulvar derm specialist #Pelvic Floor Hypertonicity #Dyspareunia One of the patient's goals is to have penetrative sexual intercourse. Physical exam today was able to accommodate a Julia speculum and revealed appropriate vaginal length. It appears that hypertonicity of the pelvic floor muscles is the main source of her pain. No signs of vulvodynia on exam. - Referral to pelvic floor PT, near [place] if possible. If not, could consider referral toDr Webster here at [facility]. I personally spent a total of 30 minute visit independently reviewing relevant interval data including imaging, lab tests, counseling and coordinating care for Gabi Luna. We discussed the plan and rationale for ongoing surveillance. Eleni Ng DO, PGY-3 Obstetrics and Gynecology CEMENT KILN OPERATOR ONC ATTENDING I have reviewed and concur with the resident's note, exam, and assessment. The patient was seen andexamined by Dr. Laird and all pertinent portions of the history, exam and decision-making for this patient encounter were performed by Dr Laird. 11/04/23 documented in this encounter Plan of Treatment Upcoming Encounters Date Type Department Care Team (Latest Contact Info) Description 12/25/2023 9:[address] Scan at [place] [phone] Xavier Malhotra MD [facility] [address] [place] [address] 12/29/2023 Hospital Encounter Electrophysiology Lab at [place] [phone] Xavier Malhotra MD [facility] [place] [address] Paroxysmal atrial fibrillation 12/29/2023 7:30 AM EDT - 12/29/2023 12:00 PM EDT Surgery Electrophysiology Lab at [place] [phone] Xavier Malhotra MD [facility] [place] [address] ELECTROPHYSIOLOGY PROCEDURE 01/14/2024 10:40 AM EDT Office Visit Cardiology at [place] [phone] Carmen Castaneda PA [facility] [place] [address] Scheduled Procedures Name Priority Associated Diagnoses Date/Ti me TRANSESOPHAGEAL ECHO DURING CATH/EP PROCEDURE Paroxysmal atrial fibrillation 12/29/2023 7:30 AM EDT documented as of this encounter Goals Goal Patient Goal Type Associated Problems Recent Progress Patient-Stated? Author DH Home Medication Compliance and Understanding Patient Facing Action Plan Lani Love, [facility] Note: Maintain control of disease for as long as possible as assessed by tumor marker levels and scans in clinic every 3 to 6 months documented as of this encounter Visit Diagnoses Diagnosis Ovarian cancer, unspecified laterality Paroxysmal atrial fibrillation Atrial fibrillation Paroxysmal atrial fibrillation Atrial fibrillation documented in this encounter Care Teams Imaging Engineer Relationship Specialty Start Date End Date Evelyne Hunt, TRAVEL REGISTERED NURSE ONCOLOGY [address] [place] [address] PCP - General Internal Medicine 09/23/17 documented as of this encounter
--- OUTSIDE RECORDS SUMMARY | 2023-12-01 02:08 | XMS_ITS | Encounter Summary ---
Author Organization [facility] [place] [address] Care Team Providers Care Classification Inspector Name Role Phone Evelyne Hunt APRN Primary Care Provider [phone] Encounter Details Date Type Department Care Team (Late st Contact Info) Description 10/09/2023 Telephone Cardiology at [address] [phone] Praveena Petty, RN Social History Tobacco Use Types Packs/Day Years Used Date Smoking Tobacco: Former Cigarettes Q uit: 07/12/1977 Smokeless Tobacco: Never Alcohol Use Standard Drinks/Week Comments Not Currently 0 (1 standard drink = 0.6 oz pur e alcohol) [facility] Utilities Answer Date Recorded In the past [...] any time in the past 12 m [facility], were you homeless or living in a alf (including now)? No 09/25/2023 IPV Inpatient Questions [...] encounter Miscellaneous Notes * Telephone Encounter - Praveena Petty RN - 10/09/2023 9:41 AM EDT Patient called to report that she is still not feeling well after her CV on [facility]23[facility],palpitations and nausea. She had the CV and felt better for about a week then sx came back. Since 2019 she feels she has had little relief and she is still SOB, drained all the time and shehas chest pressure. All this is keeping her from watching her grandson and doing her usual activities. She ended up taking an extra metoprolol for breakthrough sx but overall not much has changed. She continues to take Eliquis and Toprol 75mg HS. Patient had a failed ablation in the past for SVT. She says I can't live like this. Praveena Vega RNrailroad car checker [facility] General Team-Ottoniel documented in this encounter Plan of Treatment Upcoming Encounters Date Type Department Care Team (Latest Contact Info) Description 12/25/2023 9:[address] [place] [phone] Xavier Malhotra MD [facility] [place] [address] 12/29/2023 Hospital Encounter [place] [phone] Xavier Malhotra MD [facility] [place] [address] Paroxysmal atrial fibrillation 12/29/2023 7:30 AM EDT - 12/29/2023 12:00 PM EDT Surgery [place] [phone] Xavier Malhotra MD [facility] [place] [address] ELECTROPHYSIOLOGY PROCEDURE 01/14/2024 10:40 AM EDT Office Visit Cardiology at [address] [phone] Carmen Castaneda PA [facility] [place] [address] Scheduled Procedures Name Priority Associated Diagnoses Date/Ti me TRANSESOPHAGEAL ECHO DURING CATH/EP PROCEDURE Paroxysmal atrial fibrillation 12/29/2023 7:30 AM EDT documented as of this encounter Goals Goal Patient Goal Type Associated Problems Recent Progress Patient-Stated? Author DH Home Medication Compliance and Understanding Patient Facing Action Plan No Lani Vargas, [facility] Note: Maintain control of disease for as long as possible as assessed by tumor marker levels and scans in clinic every 3 to 6 months documented as of this encounter Visit Diagnoses Not on filedocumented in this encounter Care Teams Classification Inspector Relationship Specialty Start Date End Date Evelyne Hunt APRN [address] [facility] [place] [address] PCP - General Internal Medicine 09/23/17 documented as of this encounter
--- OUTSIDE RECORDS SUMMARY | 2023-12-01 02:08 | XMS_ITS | Encounter Summary ---
Author Organization [facility] Address [facility] [place] [address] Care Team Providers Care Family Program Specialist Name Role Phone Evelyne Hunt APRN Primary Care Provider [phone] Reason for Visit * Consultation (Urgent) - Closed Specialty Diagnoses [...] h/o Ovarian Cancer. Jody De Santiago MD [address] [place] [address] [place] [address] [facility] [address] [place] [id number] Referral ID Status Reason Start Date Expiration Date V isits Requested Visits Authorized [id number] Closed Consult, Test & Treat 09/26/2023 09/25/2024 1 1 Encounter Details Date Type Department Care Team (Late st Contact Info) Description 11/18/2023 11:00 AM EDT Office Visit Cardiology at [address] [phone] Nadia Good, PA [facility] [place] [address] Paroxysmal atrial fibrillation Social History Tobacco Use Types Packs/Day Years Used Date Smoking Tobacco: Former Cigarettes Q uit: 07/12/1977 Smokeless Tobacco: Never Alcohol Use Standard Drinks/Week Comments Not Currently 0 (1 standard drink = 0.6 oz pur e alcohol) [facility] Utilities Answer Date Recorded In the past [...] any time in the past 12 m [facility], were you homeless or living in a retirement (including now)? No 09/25/2023 IPV Inpatient Questions [...] Sign Reading Time Taken Comments Blood Pressure 125/81 11/18/2023 10:45 AM EDT Pulse 56 11/18/2023 10:45 AM EDT Temperature - - Respiratory Rate - - Oxygen Saturation 100% 11/18/2023 10:45 AM EDT Inhaled Oxygen Concentration - - Weight 55.9 kg (123 lb 3.2 oz) 11/18/2023 10:45 AM EDT Height 165.1 cm (5' 5) 11/18/2023 10:45 AM EDT Body Mass Index 20.5 11/18/2023 10:45 AM EDT documented in this encounter Progress Notes * Nadia Good PA - 11/18/2023 11:00 AM EDT Cardiac Electrophysiology Clinic Note Atrial Fibrillation Management Patient: Gabi Luna : 1960 Indication for Referral: Atrial fibrillation/flutter Problem List: Patient Active Problem List Diagnosis Atrial fibrillation (aortic stenosis) BRCA negative Overview Note: no germline (heritable) mutation was detected. This [...] PALB2, RAD51C, RAD51D, BRCA1, BRCA2 (sequencing only). Ovarian cancer, lateral, stage IIIb high-grade serous/endometrioid, 07/20/2019 s/p FREDI/BSO/oment/PPALND/RSReanstomosis HTN (hypertension) Aortic valve stenosis Chest pain SVT (supraventricular tachycardia) Bicuspid aortic valve Hypothyroidism HPI: 63 y.o. female with a past medical history of paroxysmal atrial fibrillation on Eliquis, palpitations s/p EPS 08/08/20 (not inducible for SVT), severe , moderate AI s/p AVR (01/2022), ovarian cancer s/p FREDI/BSO, bilateral pelvic and paraaortic lymph adenectomy, omentectomy, rectosigmoid resection and reanastomosis for large multicystic pelvic mass, HTN, hypothyroidism, who presents to discuss atrial fibrillation management. Diagnosis: Post-op s/p AVR in 01/2022, then September 2023- admitted to [facility] [place] for management of afib with RVR Symptoms: palpitations, lightheadedness, MIRANDA, exertional fatigue Anticoagulation: Eliquis Current Rate Control: Metoprolol succinate 75mg nightly Current Rhythm control: Prior AAD: Previously on amiodarone following AVR in 01/2022, discontinued in February 2022 Prior Ablation: None (EPS for SVT, although no ablation, not inducible) Prior DCCV: 09/25/2023 (during admission for AF with RVR) Currently wearing a Zio patch- to be returned for analysis on 11/21/23 (will take ~2 weeks to process). Today, Mrs. Donnelly explains that since discharge, she believes she has had minimal recurrence ofAF, if any. However, she is profoundly fatigued. She reports that she gets emotional discussing hersymptoms because she feels that she is a young 63 yo and wants to get her life back. She enjoys hiking with her , boating, and spending time with her grandchildren. She adds that she previously belonged to a walking group and now cannot participate in these activities. Since discharge on metoprolol, she has been feeling extremely limited, predominantly with fatigue. Her goal is to get off (or at least reduce metoprolol), reduce recurrence of atrial fibrillation, and get back to an active lifestyle. She experiences lightheadedness while in AF, none since discharge. She has occasional palpitations.She denies CP and leg swelling. Denies bleeding issues on Eliquis (aside from minor bruising). However, she is interested in the Watchman in the future to hopefully discontinue oral anticoagulation. She lives in [place], [place] [address] with her , Sandoval. They have twins, and grandchildren with whom they enjoy spending time. Risk Factor Assessment Risk Factor Goal Current Weight management (BMI) <27 kg/m2 Body mass index is 20.5 kg/m??. Exercise at least 30 mins, 3-4x per week Limited by exertional fatigue HLD LDL <129 mg/dL TG <150 mg/dL Total Chol <200 mg/dL Lipid Panel N/A LOUISE CPAP if indicated Low risk HTN <130/80mmHg Controlled Diabetes HbA1c <6.5% No results found for: HA1C Tobacco Use Abstinence/Cessation Abstinence EtOH Women: <1 drink/day, <7/week Men: <2/day, <14/week LA Size Normal 09/2023 TTE Olamide ELLIS et al., Eur Heart J 2016 Vitals: Last Set of Vitals and range of vitals over past 24 hours: Last value Range last 24 hrs Temperature Temp: -- Heart Rate Heart Rate: 56 Heart Rate: [56] Blood Pressure BP: 125/81 BP: (125)/(81) Respiratory Rate Resp: -- SpO2 SpO2: 100 % SpO2: [100 %] Physical Exam: General- No acute distress, sitting comfortably in exam room chair HEENT- Head atraumatic, normocephalic Skin- Warm and dry Neck- No JVD noted, no goiter appreciated Cardiovascular- S1/S2 regular rate and regular rhythm. Lungs- Clear to auscultation bilaterally Extremities- Pulses equal bilaterally. No edema noted Neuro- A&Ox3 EKG - SR at 53 bpm, MN 126ms, QRS 92ms, QT 458ms, QTc 429ms Laboratory (Last 24 Hours): Lab Results Component Value Date WBC 6.2 09/25/2023 HGB 14.4 09/25/2023 HCT 40.9 09/25/2023 PLATELET 260 09/25/2023 Lab Results Component Value Date NA 137 10/17/2023 K 4.4 10/17/2023 CL 102 10/17/2023 BUN 11 10/17/2023 CREATININE 0.76 10/17/2023 MAGNESIUM 0.89 10/17/2023 CrCl: 67 mL/min Lab Results Component Value Date TSH 1.74 10/17/2023 Diagnostics: Rima In progress Transthoracic Echo 09/25/23 Interpretation Summary -Left ventricle is of normal size. Wall thickness is normal. Left ventricular systolic function is normal. The left ventricular ejection fraction is 58% by 3D volumetric assessment. There are no segmental wall motion abnormalities -The right ventricle is of normal size. Right ventricular systolic function is normal. -The aortic prosthetic valve appears to be functioning normally. -There is moderate tricuspid regurgitation. -Compared to 03/08/2022, there has not been a significant change. Assessment: 63 y.o. female with a past medical history of paroxysmal atrial fibrillation on Eliquis, palpitations s/p EPS 08/08/20 (not inducible for SVT), severe , moderate AI s/p AVR (01/2022), ovarian cancers/p FREDI/BSO, bilateral pelvic and paraaortic lymph adenectomy, omentectomy, rectosigmoid resection and reanastomosis for large multicystic pelvic mass, HTN, hypothyroidism, who presents to discuss atrial fibrillation management. Mrs. Luna believes she has had a minimal burden of AF since her admission for AF with RVR and successful DCCV in September, however, she is experiencing profound exertional fatigue with metoprolol. Her primary goal is to pursue a more definitive approach to atrial fibrillation management acknowledging that she is likely to experience recurrence and has a strong preference to avoid medications. She is particularly interested in a PFA. She is a good ablation candidate as she is relatively healthywith a normal LA size and normal LVEF. Currently wearing a Zio which she will return on Friday, although it is unlikely that these resultswill alter recommendations. 1. Atrial fibrillation, paroxysmal - Currently in SR 2. Anticoagulation: Eliquis 5mg BID - Would like to discuss PALLAVI-C in the future 3. Rate control: Metoprolol succinate 75mg daily - Symptoms consistent with chronotropic incompetence - Rates in the low 50s today 4. Rhythm control: No current AAD, interested in PFA Plan: No medication changes today Discuss scheduled PFA with Dr. Malhotra I appreciate the opportunity to be involved with Ms. Luna's care. Please do not hesitate to contact EP with any further questions (pager [phone]). RENU Mann 11:00 AM 11/18/23 documented in this encounter Plan of Treatment Upcoming Encounters Date Type Department Care Team (Latest Contact Info) Description 12/25/2023 9:[address] [place] [phone] Xavier Malhotra MD [facility] [place] [address] 12/29/2023 Hospital Encounter Electrophysiology Lab at [place] [phone] Xavier Malhotra MD [facility] [place] [address] Paroxysmal atrial fibrillation 12/29/2023 7:30 AM EDT - 12/29/2023 12:00 PM EDT Surgery Electrophysiology Lab at [place] [phone] Xavier Malhotra MD [facility] [place] [address] ELECTROPHYSIOLOGY PROCEDURE 01/14/2024 10:40 AM EDT Office Visit Cardiology at [address] [phone] Carmen Castaneda PA [facility] [place] [address] Scheduled Procedures Name Priority Associated Diagnoses Date/Ti [...] Procedure Name Priority Date/Time Associated Diagnosis Comments EKG 12-LEAD Routine 11/18/2023 11:02 AM EDT Paroxysmal atrial fibrillation documented in this encounter Results * EKG 12 Lead (11/18/2023 11:02 AM EDT) Ventricular rate 53 BPM MUSE SYSTEM Atrial Rate 53 BPM MUSE SYSTEM P-R Interval 126 ms MUSE SYSTEM QRS Duration 92 ms MUSE SYSTEM Q-T Interval 458 ms MUSE SYSTEM QTC Calculated (Bezet) 429 ms MUSE SYSTEM Calculated P [place] 63 degrees MUSE SYSTEM Calculated R [place] -17 degrees MUSE SYSTEM Calculated T [place] 49 degrees MUSE SYSTEM INTERPRETATION Sinus bradycardia Septal infarct , age undetermined Abnormal ECG When compared with ECG of 17-OCT-2023 08:34, Septal infarct is now Present Confirmed by MD Erin, Favio ([id number]) on 11/18/2023 1:41:38 PM MUSE SYSTEM 11/18/2023 11:0 2 AM EDT 11/18/2023 1:41 PM EDT Chon Reynoso MD ECG ORDERABLES MUSE SYSTEM documented in this encounter Visit Diagnoses Diagnosis Paroxysmal atrial fibrillation Atrial fibrillation Paroxysmal atrial fibrillation Atrial fibrillation Paroxysmal atrial fibrillation Atrial fibrillation documented in this encounter Care Teams Family Program Specialist Relationship Specialty Start Date End Date Evelyne Hunt APRN [address] [place] [address] PCP - General Internal Medicine 09/23/17 documented as of this encounter
--- OUTSIDE RECORDS SUMMARY | 2023-12-01 02:08 | XMS_ITS | Encounter Summary ---
Author Organization [facility] [place] [address] Care Team Providers Care Motor Boss Name Role Phone Evelyne Hunt APRN Primary Care Provider [phone] Encounter Details Date Type Department Care Team (Latest Contact Info) Description 10/17/2023 Travel Social History Tobacco Use Types Packs/Day Years Used Date Smoking Tobacco: Former Cigarettes Q uit: 07/12/1977 Smokeless Tobacco: Never Alcohol Use Standard Drinks/Week Comments Not Currently 0 (1 standard drink = 0.6 oz pur e alcohol) [facility] Utilities Answer Date Recorded In [...] any time in the past 12 m [facility], were you homeless or living in a half-way (including now)? No 09/25/2023 IPV Inpatient Questions [...] 9:[address] Scan at [place] [phone] Xavier Malhotra MD [facility] [place] [address] 12/29/2023 Hospital Encounter Electrophysiology Lab at [place] [phone] Xavier Malhotra MD [facility] [place] [address] Paroxysmal atrial fibrillation 12/29/2023 7:30 AM EDT - 12/29/2023 12:00 PM EDT Surgery Electrophysiology Lab at [place] [phone] Xavier Malhotra MD [facility] [place] [place] [address] ELECTROPHYSIOLOGY PROCEDURE 01/14/2024 10:40 AM EDT Office Visit Cardiology at [place] [phone] Carmen Castaneda PA [facility] [place] [address] Scheduled Procedures Name Priority Associated Diagnoses Date/Ti me TRANSESOPHAGEAL ECHO DURING CATH/EP PROCEDURE Paroxysmal atrial fibrillation 12/29/2023 7:30 AM EDT documented as of this encounter Goals Goal Patient Goal Type Associated Problems Recent Progress Patient-Stated? Author DH Home Medication Compliance and Understanding Patient Facing Action Plan Lani Love, [facility] Note: Maintain control of disease for as long as possible as assessed by tumor marker levels and scans in clinic every 3 to 6 months documented as of this encounter Visit Diagnoses Not on filedocumented in this encounter Care Teams Motor Boss Relationship Specialty Start Date End Date Evelyne Hunt APRN [address] [place] [address] PCP - General Internal Medicine 09/23/17 documented as of this encounter
--- OUTSIDE RECORDS SUMMARY | 2023-12-01 02:08 | XMS_ITS | Encounter Summary ---
Author Organization [facility] Address [facility] [place] [address] Care Team Providers Care Papier Mache' Molder Name Role Phone Evelyne Hunt APRN Primary Care Provider [phone] Reason for Visit * Consultation (Routine) - Authorized Specialty Diagnoses / Procedures Referred By Marcel t Referred To Contact Cardiology Diagnoses Atrial fibrillation, unspecified type S/P ED @[facility] for HF & afib. Last seen 07/16/23 IAU-Xirldu-Xtegev/Joan pt Lisy Ritter APRN [address] [place] [address] [place] [address] Mandeep Franco MD [facility] [place] [address] Referral ID Status Reason Start Date Expiration Date Visits Requested Visits Authorized [id number] Authorized Consult, Test & Treat PCP Updated and/or Approved 09/26/2023 09/25/2024 6 6 Encounter Details Date Type Department Care Team (Late st Contact Info) Description 10/17/2023 8:40 AM EDT Office Visit Cardiology at [address] [phone] Carmen Castaneda PA [facility] [place] [address] SOB (shortness of breath); Atrial fibrillation, unspecified type Social History Tobacco Use Types Packs/Day Years Used Date Smoking Tobacco: Former Cigarettes Q uit: 07/12/1977 Smokeless Tobacco: Never Alcohol Use Standard Drinks/Week Comments Not Currently 0 (1 standard drink = 0.6 oz pur e alcohol) [facility] Utilities Answer Date Recorded In the [...] any time in the past 12 m [facility], were you homeless or living in a custodial (including now)? No 09/25/2023 IPV Inpatient Questions [...] Sign Reading Time Taken Comments Blood Pressure 129/91 10/17/2023 8:24 AM EDT Pulse 53 10/17/2023 8:24 AM EDT Temperature - - Respiratory Rate - - Oxygen Saturation 100% 10/17/2023 8:24 AM EDT Inhaled Oxygen Concentration - - Weight 55.5 kg (122 lb 6.4 oz) 10/17/2023 8:24 A M EDT Height 165.1 cm (5' 5) 10/17/2023 8:24 AM EDT Body Mass Index 20.37 10/17/2023 8:24 AM EDT documented in this encounter Patient Instructions * Patient Instructions* Carmen Castaneda PA - 10/17/2023 8:40 AM EDT - ZioPatch will be mailed to you, you can wear this for 7 days then send back to us - Continue daily metoprolol and as needed metoprolol - Continue Eliquis as prescribed - Will arrange for labwork today to check electrolytes and thyroid function - Arranging for EP appointment as soon as possible with cancellation list - Seek care in the ER if your heart rate sustains over 120bpm for more than 1 hours or if your symptoms do not mayco on their own - Continue hydration, limit caffeine, limit alcohol intake - Recommend Kardia device to track rhythm documented in this encounter Progress Notes * Carmen Castaneda PA - 10/17/2023 8:40 AM EDT Images from the original note were not included. [facility] [place] [address] CARDIOVASCULAR MEDICINE OUTPATIENT VISIT Gabi Luna [id number] 10/17/2023 REFERRING PROVIDER: Evelyne Hunt PROBLEM LIST: Patient Active Problem List Diagnosis Atrial fibrillation (aortic stenosis) BRCA negative no germline (heritable) mutation was detected. This [...] SVT (supraventricular tachycardia) Bicuspid aortic valve Hypothyroidism HISTORY OF PRESENT ILLNESS: Gabi Luna is a 63 y.o. female with PMHx of ovarian cancer, severe , moderate AI s/p bp AVR (01/2022) as well as SVT status post unsuccessful ablation previously followed by Dr. Subramanian. Presents today for follow up. Last seen by Dr. Franco in 04/2022 and at that time reported that she was feeling well without specific complaints. Completed cardiac rehab at [facility] 3 days/week. Last seen by myself in 06/2023 and had been feeling well at that time without any new symptoms. TODAY: Recently admission to the Cardiology Service 09/24/23 for atrial fibrillation with RVR and now s/p DCCV About a week after her discharge from the hospital she developed recurrent shortness of breath and palpitations She can tell SVT vs atrial fibrillation symptoms ; SVT is short in duration, goes away on it's own vs atrial fibrillation symptoms are more intense, last longer, and requires metoprolol tartrate to feel better The metoprolol tartrate does help relieve her symptoms when she gets her paroxysms Continues on her DOAC without interrupted doses No exacerbating factors that seem to trigger the atrial fibrillation She has cut out alcohol, caffeine and increased her hydration No chest pain, dizziness, weakness, falls, or other symptoms REVIEW OF SYSTEMS: Negative unless stated above PAST MEDICAL HISTORY: Past Medical History: Diagnosis Date Allergic rhinitis Anxiety Aortic insufficiency due to bicuspid aortic valve Aortic stenosis, moderate Bicuspid aortic valve BRCA negative 10/18/2019 no germline (heritable) mutation was detected. This means that Ivana does not carry a mutation in the genes detectable by this test. The genes included on this panel are APC, KIRSTIN, BARD1, BMPR1A, BRCA1, BRCA2, BRIP1, CDH1, CDK4, CDKN2A, CHEK2, DICER1, HOXB13, MLH1, MRE11A, MSH2, MSH6, MUTYH, NBN, NF1, PALB2, PMS2, POLD1, POLE, PTEN, RAD50, RAD51C, RAD51D, SMAD4, SMARCA4, STK11, TP53, (sequencing an H/O: 09/10/2013 x2 Heart valve disease aortic stenosis High blood pressure CONTROLLED WITH MEDICATION History of appendectomy Hyperlipidemia Hypertension Irregular heart beat SVT last episode 07-04-2019, does vagal maneuvers, and medication for breakthrough Ovarian cancer, lateral, stage IIIb high-grade serous/endometrioid, 07/20/2019 s/p FREDI/BSO/oment/PPALND/RSReanstomosis 08/10/2019 Ovarian cancer, lateral, stage IIIb high-grade serous/endometrioid, 07/20/2019 s/p FREDI/BSO/oment/PPALND/RSReanstomosis 08/10/2019 Subclinical hypothyroidism SVT (supraventricular tachycardia) SOCIAL HISTORY: Social History Tobacco Use Smoking status: Former Current packs/day: 0.00 Types: Cigarettes Quit date: 07/12/1977 Years since quittin.2 Smokeless tobacco: Never Substance Use Topics Alcohol use: Not Currently MEDICATIONS: No outpatient medications have been marked as taking for the 10/17/23 encounter (Office Visit) with Carmen Castaneda PA. ALLERGIES: Paclitaxel, Paroxetine, Penicillins, Sertraline, Venlafaxine, and Betamethasone PHYSICAL EXAMINATION: Vital Signs: BP (!) 129/91 Pulse 53 Ht 165.1 cm (5' 5) Wt 55.5 kg (122 lb 6.4 oz) SpO2 100% BMI 20.37kg/m?? Exam Details: General: Pleasant female in no acute distress. HEENT: No scleral icterus, moist mucous membranes. Neck: JVP <8 cm of water Heart: Regular rate and rhythm, normal S1/S2, soft 2/6 KANDY. No rubs/gallops appreciated Lungs: Clear to ascultation bilaterally Abdomen: Soft, non-tender, non-distended, normoactive bowel sounds noted. Extremities: No peripheral edema noted. Distal pulses intact. Skin: Warm and well perfused. No visible lesions or rashes. Neuro: No gross abnormalities noted. Psych: Alert and oriented 3 x, normal affect DATA PERSONALLY REVIEWED: Last 3 wbc, hgb, hct plt Recent Labs 09/25/23 0307 09/24/231999 WBC 6.2 7.8 HGB 14.4 14.7 HCT 40.9 41.5 PLATELET 260 302 Last 3 Lytes Recent Labs 10/17/23 0954 09/25/23 0307 09/24/231999 NA 137 138 134* K 4.4 3.9 4.2 CL 102 105 98 CO2 26 22 23 BUN 11 8 11 CREATININE 0.76 0.67* 0.71 Lipid Panel TTE 09/25/23: Interpretation Summary -Left ventricle is of normal [...] there has not been a significant change. TTE 02/2022 Interpretation Summary Left ventricle is of normal size. Wall thickness is normal. Left ventricular systolic function is normal. The left ventricular ejection fraction is 70% by Arndt's biplane. There are no segmental wall motion abnormalities. There is no JERRY or LVOT gradient. The right ventricle is of normal size. Right ventricular systolic function is normal. There is a 23 mm Inspiris bioprosthetic valve in the aortic position implanted on 01-29-2022. The mean gradient across the aortic valve is 9 mmHg. The dimensionless index is 0.65. No significant regurgitation. Zio Patch 2021 Conclusion(s): This monitor is notable for normal sinus rhythm with a relatively constricted rate histogram between 53 and 87 bpm. This could correspond to pharmacotherapy or patient inactivity. There is no atrial fibrillation detected. The 14 triggered or diary events correspond to normal sinus rhythm with normal rates. [facility] 11/2021 Hemodynamics: Right Heart Pressures Resting: Syst Diast EDP a v m RA 5 3 3 RV 28 5 PA 28 11 18 PCW 13 15 12 Hemodynamic Profile: Profile 1 CO 4.10 CI 2.48 TSR 1,854 SVR 1,795 TPR 351 PVR 117 Technique Estimated Brendan Left Heart Pressures Resting: Syst Diast EDP a v m Ao 127 72 95 Oximetry: Location %Sat Location %Sat Superior Vena Cava 74.0 Main Pulmonary Artery 68.0 Peripheral Arterial 96.0 Coronary Angiography: Dominance: Right Left Main The left main was normal, free of disease. Left Anterior Descending There was mild diffuse (<=25% stenosis) disease of the proximal segment of the left anterior descending artery (LAD). The mid segment of the LAD had mild diffuse (<=25% stenosis) disease. There was a 25% hazy single discrete stenosis of the ostial segment of the first diagonal branch (Diagonal 1) of the LAD. The Diagonal 1 was large. Left Circumflex The left circumflex (LCX) was normal, free of disease. Right Coronary Artery There was mild diffuse (<=25% stenosis) disease of the proximal segment of the right coronary artery (RCA). The RCA was large. Ramus The ramus was normal, free of disease. Indication for Selected Procedures: Right Heart catheterization was initiated for Nonrheumatic aortic (valve) stenosis (I35.0). Vascular Access: Vascular Access Management: Manual Compression of the right median antecubital vein access site was performed. Mechanical Compression of the right radial artery access site was performed. Conclusions: * Nonobstructive coronary artery disease TON/DCCV 09/23/23 Interpretation Summary TON performed to rule PALLAVI/LA thrombus prior to DCCV: - There was no thrombus in the LA/PALLAVI. The left atrial emptying velocity before DCCV was normal. - After the LA/PALLAVI were cleared, the patient underwent cardioversion with 120J with successful conversion to normal sinus rhythm. Imaging of the remaining cardiac structures was then performed. - The left ventricular function was normal with an LV EF of 56% by 3D analysis. - The right ventricular function is mildly decreased with an RV EF of 40% by 3D analysis. FAC 34%. - There is a bioprosthetic valve in the aortic position. It appears well- positioned with a mean gradient of 6 mmHg and trace intravalvular regurgitation. - There is moderate tricuspid regurgitation. - Refer to report for additional details. - Compared with TTE from earlier today, RV dysfunction now identified. ASSESSMENT AND PLAN: 63 y.o. female with PMHx of ovarian cancer, severe , moderate AI s/p bp AVR (01/2022) as well as SVT status post unsuccessful ablation previously followed by Dr. Subramanian. TTE at that visit demonstrated a bicuspid valve now with severe stenosis and moderate regurgitation. The mean gradient across her valve increased from 33 mmHg on her last study (01/2020) to 49 mmHg. Calculated SUDHAKAR is 0.7 cm?? with a max velocity across the aortic valve of 4.6 m/s. There is moderate basal septal hypertrophy with JERRY and an LVOT gradient of 5 mmHg at rest (34 mmHg with Valsalva). Referred for Surgery and s/p AVR in 01/2022. Last saw Dr. Franco in 04/2022 and was feeling well. Completed cardiac rehab. A Zio in 02/2022 showed no atrial fibrillation so her amiodarone and Eliquis were discontinued. At our last visit in Spring 2023 she was without symptoms and feeling well overall. Recurrence of atrial fibrillation with RVR symptoms in August which resulted in an admission to Cardiology in early September. She underwent a TON/cardioversion during that admission which restored her to normal sinus rhythm. Unfortunately, her symptoms quickly returned post discharge from the hospital. She struggles with her symptoms when she is in atrial fibrillation and this causes her much disruptionof her daily activities. When she is in normal sinus her rates are historically fairly bradycardic leading to difficulty with increasing her AV clark blockade. Today we plan to keep long acting metoprolol succinate 75mg daily the same and keep her as needed metoprolol tartrate 25mg if symptoms of palpitations. We plan for a ZioPatch to assess her atrial fibrillation burden. We also discussed obtaining a Kardia to monitor her symptoms as they are paroxysmal. We have referred her to Electrophysiology given her debilitating symptoms when she is in atrial fibrillation and bradycardia which she is sinus. She likely would be a good antiarrhythmic candidate or ablation candidate. She has been on amiodarone in the past but we discussed deferring this today given potential side effects and her young age. Also given it's long half life it may delay other ant iarrhythmic drug strategies. Red flag symptoms of when to seek emergent care reviewed. # Atrial fibrillation, paroxysmal, post operative - Last Zio revealed no AF (02/2022) - Recent hospitalization for recurrence of atrial fibrillation with RVR - ZioPatch reordered to assess burden of arrhythmia ; Kardia recommended for the interim - Continue metoprolol succinate 75mg daily ; metoprolol tartrate 25mg PRN for symptoms - Referral to EP for discussion of antiarrhythmic therapy vs ablation - Continue Eliquis 5mg BID - TSH, BMP, Mag ordered today # Severe s/p bp AVR (23 mm Inspiris) # Hx of bicuspid aortic valve - Prior to surgery-- SUDHAKAR: 0.7 cm2, M mmHg, Vmax: 4.6 m/sec - Recent TTE 09/2023 reveals MG 9 mmHg. The dimensionless index is 0.65. - Repeat TTE in 2026 for 5 year surveillance as per 2020 ACC/AHA valve guidelines - continue ASA 81mg daily # Septal thickening w/ JERRY s/p myectomy - prior to surgery-- MG at rest: 5 mmHg; MG with Valsalva: 34 mmHg - MG during surgery was 7 mmHg; no gradient on TTE (02/2022) - continue metoprolol succinate 75mg daily # ASCVD, non-obstructive - continue ASA, statin, BB - lipids managed through her PCP # SVT - No SVT during EPS Return in 3 months. Thank you for allowing me to participate in the care of your patient. Please donot hesitate to contact me with any questions or concerns. [facility] [address] Patient Instructions - ZioPatch will be mailed to you, you can wear this for 7 days then send back to us - Continue daily metoprolol and as needed metoprolol - Continue Eliquis as prescribed - Will arrange for labwork today to check electrolytes and thyroid function - Arranging for EP appointment as soon as possible with cancellation list - Seek care in the ER if your heart rate sustains over 120bpm for more than 1 hours or if your symptoms do not mayco on their own - Continue hydration, limit caffeine, limit alcohol intake - Recommend Kardia device to track rhythm documented in this encounter Plan of Treatment Upcoming Encounters Date Type Department Care Team (Latest Contact Info) Description 12/25/2023 9:[address] [place] [phone] Xavier Malhotra MD [facility] [place] [address] 12/29/2023 Hospital Encounter Electrophys[place] [phone] Xavier Malhotra MD [facility] [place] [address] Paroxysmal atrial fibrillation 12/29/2023 7:30 AM EDT - 12/29/2023 12:00 PM EDT Surgery [place]rophys[place] [phone] Xavier Malhotra MD [facility] [place] [place] [address] ELECTROPHYSIOLOGY PROCEDURE 01/14/2024 10:40 AM EDT Office Visit Cardiology at [address] [phone] Carmen Castaneda PA [facility] [place] [address] Scheduled Procedures Name Priority Associated Diagnoses Date/Ti me TRANSESOPHAGEAL ECHO DURING CATH/EP PROCEDURE Paroxysmal atrial fibrillation 12/29/2023 7:30 AM EDT documented as of this encounter Goals Goal Patient Goal Type Associated Problems Recent Progress Patient-Stated? Author DH Home Medication Compliance and Understanding Patient Facing Action Plan No Lani Vargas, [facility] Note: Maintain control of disease for as long as possible as assessed by tumor marker levels and scans in clinic every 3 to 6 months documented as of this encounter Procedures Procedure Name Priority Date/Time Associated Diagnosis Comments TSH CASCADE Routine 10/17/2023 9:54 AM EDT Atrial fibrillation, unspecified type MAGNESIUM Routine 10/17/2023 9:54 AM EDT Atrial fibrillation, unspecified type BASIC METABOLIC PANEL Routine 10/17/2023 9:54 AM EDT Atrial fibrillation, unspecified type EKG 12-LEAD Routine 10/17/2023 8:34 AM EDT SOB (shortness of breath) documented in this encounter Results * Magnesium (10/17/2023 9:54 AM EDT) Magnesium 0.89 0.69 - 1.07 mmol/L [facility] Blood 10/17/2023 9:54 AM EDT 10/17/2023 10:05 AM EDT Narrative Resulting Agency Comment Spec In Lab Mandeep Franco MD CHEMISTRY ORDERABL ES Performing Organization Address City/State/[facility] Co de Phone Number [facility] [place] [address] * Basic Metabolic Panel (non-fasting) (10/17/2023 9:54 AM EDT) Glucose 94 65 - 199 mg/dL [facility] Comment:Diabetes: >=200 mg/d L plus symptoms Blood Urea Nitrogen 11 8 - 18 mg/dL [facility] Creatinine 0.76 0.70 - 1.20 mg/dL [facility] Sodium 137 135 - 145 mmol/L [facility] Potassium 4.4 3.5 - 5.0 mmol/L [facility] Comment: Please note: ??Patients with WBC >100,000 may have falsely elevated Potassium levels. ??For accurate Potassium quantification in these patients send serum separator tube (gold top) for subsequent determinations. ??Contact the Clinical Chemistry Laboratory if there are any questions. Chloride 102 98 - 107 mmol/L [facility] Carbon Dioxide 26 22 - 31 mmol/L [facility] Anion Gap 9 5 - 15 mmol/L [facility] Calcium 10.3 8.5 - 10.5 mg/dL [facility] Est Glomerular Filtration Rate 88 >=60 mL/min/1. 73 m?? [facility] Comment: This patient's estimated GFR was calculated using the 2020 CKD-EPI equation. The estimated GFR can vary from the measured GFR by up to 30% in the absence of rapidly changing kidney function. Assessment of the estimated GFR is not appropriate when creatinine concentrations are rapidly changing. For clinical situations in which a more precise estimate of GFR is necessary, consider alternative methods of GFR estimation such as a 24-hour urine creatinine clearance. Assignment of CKD stage 1-5 for patients with an eGFR near the transition point between stages may be based on clinical assessment of muscle mass and symptoms in addition to eGFR. Blood 10/17/2023 9:54 AM EDT 10/17/2023 10:05 AM EDT Narrative Resulting Agency Comment Spec In Lab Mandeep Franco MD CHEMISTRY ORDERABL ES Performing Organization Address [facility] Co de Phone Number [facility] [place] [address] * TSH [place] (10/17/2023 9:54 AM EDT) Thyroid Stimulating Hormone 1.74 0.27 - 4.20 mcIU/mL [facility] Comment: Reference Interval (mcIU/mL): Females: ??First Trimester: 0.23-3.88 ??Second Trimester: 0.22-3.90 ??Third Trimester: 0.44-4.66 Blood 10/17/2023 9:54 AM EDT 10/17/2023 10:05 AM EDT Narrative Resulting Agency Comment Spec In Lab Mandeep Franco MD CHEMISTRY ORDERABL ES Performing Organization Address City/[facility] Co de Phone Number [facility] [place] [address] * EKG 12 Lead (10/17/2023 8:34 AM EDT) Ventricular rate 50 BPM MUSE SYSTEM Atrial Rate 50 BPM MUSE SYSTEM P-R Interval 132 ms MUSE SYSTEM QRS Duration 98 ms MUSE SYSTEM Q-T Interval 468 ms MUSE SYSTEM QTC Calculated (Bezet) 426 ms MUSE SYSTEM Calculated P Rohwer 65 degrees MUSE SYSTEM Calculated R Rohwer -43 degrees MUSE SYSTEM Calculated T Rohwer 28 degrees MUSE SYSTEM INTERPRETATION Sinus bradycardia Left axis deviation Incomplete right bundle branch block Nonspecific ST abnormality Abnormal ECG When compared with ECG of 25-SEP-2023 14:08, Borderline criteria for Anterior infarct are no longer Present Confirmed by MD Bairon, Valeriy ([id number]) on 10/17/2023 11:50:17 AM MUSE SYSTEM 10/17/2023 8:34 AM EDT 10/17/2023 11:50 AM EDT Mandeep Franco MD ECG ORDERABLES MUSE SYSTEM documented in this encounter Visit Diagnoses Diagnosis SOB (shortness of breath) Shortness of breath Atrial fibrillation, unspecified type Paroxysmal atrial fibrillation Atrial fibrillation Paroxysmal atrial fibrillation Atrial fibrillation documented in this encounter Care Teams Papier Mache' Molder Relationship Specialty Start Date End Date Evelyne Hunt, [employer] [address] [place] [address] PCP - General Internal Medicine 09/23/17 documented as of this encounter
--- OUTSIDE RECORDS SUMMARY | 2023-12-01 02:08 | XMS_ITS | Clinical Summary ---
Author Organization [facility] Address [facility] [place] [address] Care Team Providers Care Retail Pos Specialist Name Role Phone Evelyne Hunt APRN Primary Care Provider [phone] Allergies Active Allergy Reactions Criticality Noted Date Comments Betamethasone 11/21/2022 Other Reaction(s): anxious, irritated, raceing heart Paclitaxel Other (See Comments),Palpitations High 08/30/2019 17 mls into Taxol C/O of palpitations/lower back pain.Drug stopped. Benadryl/Pepcid/Ativan given. Was able to start drug at half rate when symptoms subsided and increased rate every 30-60 mins. Was able to complete drug. Other Reaction(s): Other (See Comment) Paroxetine High 01/28/2020 Penicillins Anaphylaxis High PAT Penicillin Allergy Risk Assessment 01/07/2022: Moderate risk reaction. Patient referred to allergy clinic for pre-op testing. Patient refused referral. Sertraline High 01/28/2020 Venlafaxine High 01/28/2020 Medications Medication Sig Dispensed Refills Start Date End Date Status buPROPion XL (Wellbutrin XL) 300 mg Tablet Extended Release 24 hr TK 1 T PO QAM 10/01/2019 Active atorvastatin (Lipitor) 10 mg Tablet Take 10 mg by mouth daily. 11/24/2021 Active traZODone (Desyrel) 50 mg Tablet TAKE ONE TO TWO TABLETS BY MOUTH AT BEDTIME NEEDED 02/20/2022 Active cholecalciferol, Vitamin D3, 50 mcg (2,000 unit) Capsule Take by mouth. Active multivitamin Capsule Take 1 capsule by mouth daily. Active clobetasoL (Temovate) 0.05 % OintmentIndications :Lichen sclerosus et atrophicus Apply topically daily. 30 g 10/07/2022 Active aspirin EC 81 mg EC (DR) tablet daily. 02/22/2022 Active Eliquis 5 mg tablet Take 1 tablet by mouth 2 times daily. 09/19/2023 Active metoprolol succinate XL (Toprol-XL) 50 mg ER 24 hr tablet Take 1.5 tablets by mouth nightly. 30 tablet 3 09/25/2023 Active metoproloL tartrate (Lopressor) 25 mg tabletIndications:S OB (shortness of breath) Take 1 tablet by mouth as needed. 180 tablet 3 10/17/2023 Active Additional Information Patient taking differently: 75 mgOral PRN, Reported on 11/04/2023 magnesium oxide (Mag-Ox) 400 mg (241.3 mg magnesium) TabletIndications:A trial fibrillation, unspecified type Take 1 tablet by mouth daily. 10/17/2023 Active Additional Information Patient not taking.Reported on 11/18/2023 Active Problems Problem Noted Date Diagnosed Date [...] 09/17/2017 Bicuspid aortic valve 09/17/2017 Hypothyroidism 09/10/2013 Resolved Problems Problem Noted Date Diagnosed Date Resolved Date Pelvic mass 07/20/2019 08/10/2019 H/O: 09/10/2013 07/13/2019 Overview (09/10/2013): x2 Encounters Date Type Department Care Team Description 11/18/2023 11:00 AM EDT Office Visit Cardiology at [address] [phone] Nadia Good PA Paroxysmal atrial fibrillation 11/18/2023 Orders Only Cardiology at [address] [phone] Nadia Good PA Paroxysmal atrial fibrillation 11/18/2023 Travel 11/07/2023 Orders Only [place] [address] Sayda Doan RN Dyspareunia, female 11/04/2023 10:20 AM EDT Office Visit [place] [address] Iram Laird MD Ovarian cancer, unspecified laterality 11/04/2023 9:35 AM EDT - 11/04/2023 11:59 PM EDT Hospital Encounter [place] [address] Ovarian cancer, unspecified laterality Discharge Disposition: Home 11/04/2023 Telephone [place] [address] Eleni Ng DO 11/04/2023 Travel 11/02/2023 Travel 10/31/2023 7:27 AM EDT - 10/31/2023 11:59 PM EDT Hospital Encounter Non-Invasive Cardiology Lab [place] [phone] Mandeep Franco MD Atrial fibrillation, unspecified type; SOB (shortness of breath); Fatigue, unspecified type Discharge Disposition: Home 10/21/2023 Telephone Cardiology at [place] [phone] Maria Esther Villatoro RN Questions (About medication interaction (Paxlovid)) 10/17/2023 8:40 AM EDT Office Visit Cardiology at [place] [phone] Carmen Castaneda PA SOB (shortness of breath); Atrial fibrillation, unspecified type 10/17/2023 Travel 10/09/2023 Orders Only Cardiology at [place] [phone] Carmen Castaneda PA Atrial fibrillation, unspecified type (Primary Dx); SOB (shortness of breath); Fatigue, unspecified type 10/09/2023 Telephone Cardiology at [address] [phone] Praveena Petty RN 09/26/2023 Transcribe Orders eDH Incoming Referrals [phone] Lisy Ritter APRN Atrial fibrillation, unspecified type 09/26/2023 Transcribe Orders Cardiology at [address] [phone] Alyssa Keene Palpitations 09/25/2023 11:15 AM EDT - 09/25/2023 12:05 PM EDT Surgery Main Operating Room [place] [phone] Arben Leon MD TRANSESOPHAGEAL ECHOCARDIOGRAM (WRVU 2.3) 09/25/2023 11:14 AM EDT Anesthesia Event Main Operating Room [place] [phone] Rebecca Turner MD 09/24/2023 8:36 PM EDT - 09/25/2023 4:33 PM EDT Emergency Heart and Vascular Unit Level 4 [place] [phone] Favio Topete MD Ahmad, Shawn M, MD Atrial fibrillation (Primary Dx); Nonrheumatic aortic valve stenosis Discharge Disposition: Home 09/24/2023 Telephone Cardiology [place] [phone] Aakash Joseph MD 09/22/2023 Telephone Cardiology at [address] [phone] Praveena Petty RN 09/18/2023 Transcribe Orders eDH Incoming Referrals [phone] Jody De Santiago MD 09/14/2023 Telephone Cardiology at [address] [phone] Ernie Saenz MD 09/14/2023 External [place] [address] 09/13/2023 12:05 AM EDT Ancillary Procedure [place] [phone] Jody De Santiago MD 09/13/2023 Ancillary Procedure [place] [phone] Jody De Santiago MD from Last 3 Months Immunizations Name Administration Dates Next Due Influenza (Novel [id number]) Injectable 04/06/2009 Family History Medical History Relation Comments Heart Disease Brother 3 brothers, all with history of PA; one with valvular disease Ovarian Cancer Maternal Aunt Breast Cancer Maternal Cousin 1 recurrence at 71 Breast Cancer Maternal Cousin 2 daughter had b reast cancer in her 30's Heart Disease Maternal Grandfather Heart Disease Mother Relation Status Comments Brother Alive Maternal Aunt Maternal Cousin 1 Maternal Cousin 2 Maternal Grandfather Mother Social History Tobacco Use Types Packs/Day Years Used Date Smoking Tobacco: Former Cigarettes Q uit: 07/12/1977 Smokeless Tobacco: Never Alcohol Use Standard Drinks/Week Comments Not Currently 0 (1 standard drink = 0.6 oz pur e alcohol) [facility] Utilities Answer Date Recorded In [...] any time in the past 12 m [facility], were you homeless or living in a long term (including now)? No 09/25/2023 IPV Inpatient Questions [...] on file Sexual Orientation Not on file Last Filed Vital Signs Vital Sign Reading Time Taken Comments Blood Pressure 125/81 11/18/2023 10:45 AM EDT Pulse 56 11/18/2023 10:45 AM EDT Temperature 36.4 ??C (97.6 ??F) 11/04/2023 11:16 AM E DT Respiratory Rate 15 11/04/2023 11:16 AM EDT Oxygen Saturation 100% 11/18/2023 10:45 AM EDT Inhaled Oxygen Concentration - - Weight 55.9 kg (123 lb 3.2 oz) 11/18/2023 10:45 AM EDT Height 165.1 cm (5' 5) 11/18/2023 10:45 AM EDT Body Mass Index 20.5 11/18/2023 10:45 AM EDT Plan of Treatment Upcoming Encounters Date Type Department Care Team (Latest Contact Info) Description 12/25/2023 9:[address] [place] [place] [phone] Xavier Malhotra MD [facility] [place] [address] 12/29/2023 Hospital Encounter [place] [phone] Xavier Malhotra MD [facility] [place] [address] Paroxysmal atrial fibrillation 12/29/2023 7:30 AM EDT - 12/29/2023 12:00 PM EDT Surgery [place] [phone] Xavier Malhotra MD [facility] [place] [address] ELECTROPHYSIOLOGY PROCEDURE 01/14/2024 10:40 AM EDT Office Visit Cardiology at [address] [phone] Carmen Castaneda PA [facility] [place] [address] Scheduled Procedures Name Priority Associated Diagnoses Date/Ti me TRANSESOPHAGEAL ECHO DURING CATH/EP PROCEDURE Paroxysmal atrial fibrillation 12/29/2023 7:30 AM EDT Health Maintenance Due Date Last Done Comments CT Colonography 1960 FIT DNA 1960 FIT 1960 Sigmoidoscopy 1960 HIV screen 1978 Hepatitis C Screening 1978 Tdap adult 09/30/1979 Tetanus vaccine 09/30/1979 HPV test 1990 PAP Smear 1990 Breast Cancer Share Decision Needed 2000 Breast Cancer screening 2000 Zoster vaccine (1 of 2) 2010 Advance Directive 09/30/2015 Covid-19 Vaccine (1 - 2022-24 season) 2022 Influenza (Flu) vaccine (1 o f 1 - Influenza standard series) 12/21/2023 04/06/2009 Colonoscopy 05/01/2031 05/01/2021, 05/01/2021 Colorectal Cancer Screening 05/01/2031 Sigmoidoscopy (10 year) with FIT yearly 05/01/2031 0 05/01/2021, 05/01/2021 Goals Goal Patient Goal Type Associated Problems Recent Progress Patient-Stated? Author DH Home Medication Compliance and Understanding Patient Facing Action Plan Lani Love, [facility] Note: Maintain control of disease for as long as possible as assessed by tumor marker levels and scans in clinic every 3 to 6 months Medical Devices Implanted Type Area Canary Breeder Device Identifier Shelf Expiration Date Model / Serial / Lot Cable 45in Sternal Tapered Blunt Needle Curved Bijal ([id number]) - [id number] Implanted:Qty : 2 on 01/29/2022 by Efrain Felder MD at [facility] IMPLANTS N/A: Sternum [employer] - A E MEDICA 03/29/2026 [id number] / / [id number] Cable Sternal Tapered Blunt Needle Cutting Edge Plover ([id number]) - [id number] Implanted:Qty : 1 on 01/29/2022 by Efrain Felder MD at [facility] IMPLANTS N/A: Sternum [employer] - RTI SURGIC 10/29/2026 [id number] / / [id number] Description:4 cables used Valve Coronary Aortic 23mm Tissue Trnscath Biopros Inspiris ([id number]) (Autoreq) - [id number] Implanted:Qty : 1 on 01/29/2022 by Efrain Felder MD at [facility] IMPLANTS N/A: Heart [employer] - LAW LI 11/11/2025 [id number] 23MM / [id number] / Explanted Type Area Canary Breeder Device Identifier Shelf Expiration Date Model / Serial / Lot Pro Silva WGabriela Marilyn awad, 8f ([id number])-08/19 Implanted:Qty : 1 on 08/20/2019 by Jourdan Lopez PA Explanted:Qty : 1 on 10/04/2020 by Mahesh Wick MD IMPLANTS Right: Chest Wall [employer] - MED[employer] [place] 01/19/2024 [id number] / [id number] / [id number] Procedures Procedure Name Priority Date/Time Associated Diagnosis Comments EKG 12-LEAD Routine 11/18/2023 11:02 AM EDT Paroxysmal atrial fibrillation CANCER ANTIGEN 125 Routine 11/04/2023 9: 44 AM EDT Ovarian cancer, unspecified laterality ZIOPATCH 48 HRS-15 DAYS Routine 10/31/19 24 7:27 AM EDT Atrial fibrillation, unspecified type SOB (shortness of breath) Fatigue, unspecified type TSH CASCADE Routine 10/17/2023 9:54 AM EDT Atrial fibrillation, unspecified type BASIC METABOLIC PANEL Routine 10/17/2023 9:54 AM EDT Atrial fibrillation, unspecified type MAGNESIUM Routine 10/17/2023 9:54 AM EDT Atrial fibrillation, unspecified type EKG 12-LEAD Routine 10/17/2023 8:34 AM EDT SOB (shortness of breath) EKG 12-LEAD STAT 09/25/2023 2:08 PM EDT SCAN DOC: TELEMETRY STRIPS 09/25/2023 2:03 PM EDT TON W LMTD SPECTRAL DOPPLER COLOR DOPPLER AND CARDIOVERSION Routine 09/25/2023 1:14 PM EDT Atrial fibrillation SCAN DOC: TELEMETRY STRIPS 09/25/2023 12:23 PM EDT Cardioversion Elective Arrhythmia External (67091) 09/25/2023 11:14 AM EDT af TON complete wo contrast (06465) 09/25/2023 11:14 AM EDT af TRANSESOPHAGEAL ECHOCARDIOGRAM-OR Routine 09/25/2023 8:10 AM EDT CARDIOVERSION-OR Routine 09/25/2023 8:10 AM EDT ECHO COMPLETE Routine 09/25/2023 8:09 AM EDT Nonrheumatic aortic valve stenosis SCAN DOC: TELEMETRY STRIPS 09/25/2023 7:53 AM EDT SCAN DOC: TELEMETRY STRIPS 09/25/2023 7:30 AM EDT SCAN DOC: TELEMETRY STRIPS 09/25/2023 7:26 AM EDT SCAN DOC: TELEMETRY STRIPS 09/25/2023 3:49 AM EDT EKG 12-LEAD STAT 09/25/2023 3:08 AM EDT Atrial fibrillation GOLD TUBE HOLD Routine 09/25/2023 3:07 AM EDT BLUE TUBE HOLD Routine 09/25/2023 3:07 AM EDT MAGNESIUM Routine 09/25/2023 3:07 AM EDT COMPREHENSIVE METABOLIC PANEL Routine 09/25/2023 3:07 AM EDT HEMOGRAM Routine 09/25/2023 3:07 AM EDT HC TROPONIN T STAT 09/24/2023 10:56 PM EDT XR CHEST PA AND LATERAL STAT 09/24/19 10:55 PM EDT PRO-BRAIN NATRIURETIC PEPTIDE STAT 09/24/2023 8:00 PM EDT MAGNESIUM STAT 09/24/2023 8:00 PM EDT HEPATIC FUNCTION PANEL STAT 8:00 PM EDT DIFFERENTIAL, AUTOMATED STAT 09/24/19 8:00 PM EDT HEMOGRAM STAT 09/24/2023 8:00 PM EDT GOLD TUBE HOLD STAT 09/24/2023 8:00 PM EDT BLUE TUBE HOLD STAT 09/24/2023 8:00 PM EDT HC TROPONIN T STAT 09/24/2023 8:00 PM EDT BASIC METABOLIC PANEL STAT 09/24/2023 8:00 PM EDT CBC (WITH DIFF) STAT 09/24/2023 8:00 PM EDT 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 Ventricular rate 53 BPM MUSE SYSTEM Atrial Rate 53 BPM MUSE SYSTEM P-R Interval 126 ms MUSE SYSTEM QRS Duration 92 ms MUSE SYSTEM Q-T Interval 458 ms MUSE SYSTEM QTC Calculated (Bezet) 429 ms MUSE SYSTEM Calculated P [employer] Mdl 63 degrees MUSE SYSTEM Calculated R [employer] Mdl -17 degrees MUSE SYSTEM Calculated T [employer] Mdl 49 degrees MUSE SYSTEM INTERPRETATION Sinus bradycardia Septal infarct , age undetermined Abnormal ECG When compared with ECG of 17-OCT-2023 08:34, Septal infarct is now Present Confirmed by MD Erin, Favio ([id number]) on 11/18/2023 1:41:38 PM MUSE SYSTEM 11/18/2023 11:0 2 AM EDT 11/18/2023 1:41 PM EDT Chon Reynoso MD ECG ORDERABLES Performing Organization Address City/[facility]/ZIP Co de Phone Number MUSE SYSTEM * Cancer Antigen 125 (11/04/2023 9:44 AM EDT) CA 125 9.9 <=38.1 unit/mL [facility] Comment: CA 125 Reference Interval [...] Laird MD CHEMISTRY ORDERABLES Performing Organization Address City/[facility]/ZIP Co de Phone Number [facility] [place] [address] * Ziopatch 48 Hrs-15 Days (10/31/2023 7:27 AM EDT) Total Enrollment Period [id number] Anatomical Region Laterality Modality Other 10/31/2023 Narrative 11/28/2023 7:53 AM EDT [facility] ? [facility]io Patch Ambulatory Cardiac Event Monitor [...] tab. ??For patients accessing the study from [facility] (My Chart), click on the link or links found in the IMAGES area below the text of the report. Valeriy Waddell MD FACC Mandeep Franco MD CARDIAC SERVICES O [place] * TSH [place] (10/17/2023 9:54 AM EDT) Thyroid Stimulating Hormone 1.74 0.27 - 4.20 mcIU/mL [facility] Comment: Reference Interval (mcIU/mL): Females: ??First Trimester: 0.23-3.88 ??Second Trimester: 0.22-3.90 ??Third Trimester: 0.44-4.66 Blood 10/17/2023 9:54 AM EDT 10/17/2023 10:05 AM EDT Narrative Resulting Agency Comment Spec In Lab Mandeep Franco MD CHEMISTRY ORDERABL ES Performing Organization Address [facility] Co de Phone Number [facility] [place] [address] * Magnesium (10/17/2023 9:54 AM EDT) Only the most recent of3 resultswithin the time period is included. Magnesium 0.89 0.69 - 1.07 mmol/L [facility] Blood 10/17/2023 9:54 AM EDT 10/17/2023 10:05 AM EDT Narrative Resulting Agency Comment Spec In Lab Mandeep Franco MD CHEMISTRY ORDERABL ES Performing Organization Address [facility] de Phone Number [facility] [place] [address] * Basic Metabolic Panel (non-fasting) (10/17/2023 9:54 AM EDT) Only the most recent of2 resultswithin the time period is included. Glucose 94 65 - 199 mg/dL [facility] Comment:Diabetes: >=200 mg/d L plus symptoms Blood Urea Nitrogen 11 8 - 18 mg/dL [facility] Creatinine 0.76 0.70 - 1.20 mg/dL [facility] Sodium 137 135 - 145 mmol/L [facility] Potassium 4.4 3.5 - 5.0 mmol/L [facility] Comment: Please note: ??Patients with WBC >100,000 may have falsely elevated Potassium levels. ??For accurate Potassium quantification in these patients send serum separator tube (gold top) for subsequent determinations. ??Contact the Clinical Chemistry Laboratory if there are any questions. Chloride 102 98 - 107 mmol/L [facility] Carbon Dioxide 26 22 - 31 mmol/L [facility] Anion Gap 9 5 - 15 mmol/L [facility] Calcium 10.3 8.5 - 10.5 mg/dL [facility] Est Glomerular Filtration Rate 88 >=60 mL/min/1. 73 m?? [facility] Comment: This patient's estimated GFR [...] Lab Mandeep Franco MD CHEMISTRY ORDERABL ES [facility] [place] [address] * Scan Doc: Telemetry Strips (09/25/2023 2:03 PM EDT) Only the most recent of6 resultswithin the time period is included. Narrative 09/25/2023 2:03 PM EDT Ordered by an unspecified provider. Scanning Provider MEDIA MGR SCAN EXT O RDR/RSLT * TON W LMTD SPECTRAL DOPPLER COLOR DOPPLER AND CARDIOVERSION (09/25/2023 1:14 PM EDT) EF 56 HEART[facility] SYSTEM Anatomical Region Laterality Modality Cardiac Other 09/25/2023 11:2 1 AM EDT Narrative 09/25/2023 2:18 PM EDT ? Transesophageal Echocardiogram Report Name: NIALISAErmiasGABI ?Study Date: 09/25/2023 11:21 AM ? Patient Location: [address] : 1960 ? Account: [id number] Age: 62 yrs Gender: Female Ordering Physician: AAKASH JOSEPH Performed By: Rosalva David Interpreting Fellow: Rosalva David. Exam Location: [facility]. Interpretation Summary TON performed to rule PALLAVI/LA [...] from earlier today, RV dysfunction now identified. Procedure A complete TON study was performed under deep sedation with anesthesia provided by the anesthesiology service. Standard views were obtained in the transgastric, mid esophageal, and basal planes using a multiplane transesophageal echo probe. Additional evaluation with color flow Doppler and limited spectral Doppler was performed. After suitable sedation by anesthesia, the probe was inserted without difficulty. Probe passed by: Rosalva David. 3D image acquisition, rendering with interpretation and reporting, not requiring post-processing on an independent workstation. There were no complications during the procedure. Informed consent from the patient in writing. The risks and benefits of the procedure were explained in detail to the patient, including but not limited to the risk of aspiration, dysphagia, and esophageal perforation. Patient agreed to proceed. Left Ventricle Left ventricle is of normal size. Left ventricular size and systolic function are normal. The left ventricular ejection fraction is 56% by 3D volumetric assessment. There are no segmental wall motion abnormalities. Right Ventricle The right ventricle is of normal size. Right ventricular systolic function is mildly decreased. Right ventricular ejection fraction by 3D is 40%. Right ventricular fractional area change is mildly decreased at 33%. Left Atrium There is no thrombus in the left atrial appendage. There is no evidence for a patent foramen ovale. Pulsed wave Doppler of the left atrial appendage demonstrates normal emptying velocity. Aortic Valve There is a bioprosthetic valve in the aortic position. The date or year of insertion is 2021. The peak gradient across the prosthesis is 6.3 mmHg . The mean gradient across the prosthesis is 3.3 mmHg . The aortic prosthetic valve appears to be functioning normally. There appears to be trace intravalvular regurgitation. The mean gradient across the prosthesis is 6 mmHg. Mitral Valve The mitral valve is structurally normal. There is no mitral stenosis. There is mild mitral regurgitation. Blunted systolic flow in the pulmonary veins suggests significant mitral regurgitation. Tricuspid Valve The tricuspid valve is structurally normal. There is moderate tricuspid regurgitation. Pulmonic Valve The pulmonic valve is not well visualized. There is no pulmonic valve regurgitation. Great Arteries The ascending aorta is not well visualized. Aortic Arch Plaque grade 1: (normal Intima). Descending Thoracic Aorta Plaque grade 1: (normal Intima). Pericardium/Pleural There is no pericardial effusion. Doppler LV V1 VTI: 35.0 cm Ao V2 VTI: 46.4 cm Ao Max: 216.2 cm/sec Ao valve max: 18.7 mmHg Ao valve mean: 5.8 mmHg Dimensionless index Aov: 0.75 TR max kiko: 232.0 cm/sec I ?WMSI = 1.00 ? % Normal = 100 ?Segments ??Size X - Cannot ?2 - ?4 - ?1-2 ? small Interpret ?1 - Normal ?? Hypokinetic 3 - Akinetic Dyskinetic ?? 3-5 ? moderate 5 - ? 6-14 ?large Aneurysmal ?15-16 ?? diffuse Procedure Note Arben Leon MD - 09/25/2023 Transesophageal Echocardiogram Report Name: SRIDHAR GABI Velázquez Study Date: 1:21 AM Patient Location: [address] : 1960 Account: [id number] Age: 62 yrs Gender: Female Ordering Physician: AAKASH JOSEPH Performed By: Rosalva David Interpreting Fellow: Rosalva David. Exam Location: [facility]. Interpretation Summary TON performed to rule PALLAVI/LA thrombus prior to DCCV: - There was no thrombus in the LA/PALLAVI. The left atrial emptying velocitybefore DCCV was normal. - After the LA/PALLAVI were cleared, the patient underwent cardioversion [id number] with successful conversion to normal sinus rhythm. Imaging of theremaining cardiac structures was then performed. - The left ventricular function was normal with an LV EF of 56% by 3Danalysis. - The right ventricular function is mildly decreased with an RV EF of 40%by 3D analysis. FAC 34%. - There is a bioprosthetic valve in the aortic position. It appearswell- positioned with a mean gradient of 6 mmHg and trace intravalvularregurgitation. - There is moderate tricuspid regurgitation. - Refer to report for additional details. - Compared with TTE from earlier today, RV dysfunction now identified. Procedure A complete TON study was performed under deep sedation with anesthesiaprovided by the anesthesiology service. Standard views were obtained in thetransgastric, mid esophageal, and basal planes using a multiplane transesophageal echoprobe. Additional evaluation with color flow Doppler and limited spectral Dopplerwas performed. After suitable sedation by anesthesia, the probe was insertedwithout difficulty. Probe passed by: Rosalva David. 3D image acquisition, renderingwith interpretation and reporting, not requiring post-processing on anindependent workstation. There were no complications during the procedure. Informedconsent from the patient in writing. The risks and benefits of the procedurewere explained in detail to the patient, including but not limited to the riskof aspiration, dysphagia, and esophageal perforation. Patient agreed toproceed. Left Ventricle Left ventricle is of normal size. Left ventricular size and systolicfunction are normal. The left ventricular ejection fraction is 56% by 3D volumetricassessment. There are no segmental wall motion abnormalities. Right Ventricle The right ventricle is of normal size. Right ventricular systolic functionis mildly decreased. Right ventricular ejection fraction by 3D is 40%.Right ventricular fractional area change is mildly decreased at 33%. Left Atrium There is no thrombus in the left atrial appendage. There is no evidencefor a patent foramen ovale. Pulsed wave Doppler of the left atrial appendage demonstrates normal emptying velocity. Aortic Valve There is a bioprosthetic valve in the aortic position. The date or yearof insertion is 2021. The peak gradient across the prosthesis is 6.3 mmHg .The mean gradient across the prosthesis is 3.3 mmHg . The aortic prosthetic valveappears to be functioning normally. There appears to be trace intravalvularregurgitation. The mean gradient across the prosthesis is 6 mmHg. Mitral Valve The mitral valve is structurally normal. There is no mitral stenosis.There is mild mitral regurgitation. Blunted systolic flow in the pulmonary veinssuggests significant mitral regurgitation. Tricuspid Valve The tricuspid valve is structurally normal. There is moderate tricuspid regurgitation. Pulmonic Valve The pulmonic valve is not well visualized. There is no pulmonic valve regurgitation. Great Arteries The ascending aorta is not well visualized. Aortic Arch Plaque grade 1:(normal Intima). Descending Thoracic Aorta Plaque grade 1: (normal Intima). Pericardium/Pleural There is no pericardial effusion. Doppler LV V1 VTI: 35.0 cm Ao V2 VTI: 46.4 cm Ao Max: 216.2 cm/sec Ao valve max: 18.7 mmHg Ao valve mean: 5.8 mmHg Dimensionless index Aov: 0.75 TR max kiko: 232.0 cm/sec I WMSI = 1.00 % Normal = 100 SegmentsSize X - Cannot 2 - 4 - 1-2small Interpret 1 - Normal Hypokinetic 3 - Akinetic Dyskinetic 3-5moderate 5 - 6-14large Aneurysmal 15-16diffuse Aakash Joseph MD ECHO ORDERABLES * ECHO COMPLETE (09/25/2023 8:09 AM EDT) Anatomical Region Laterality Modality Cardiac Other 09/25/2023 6:57 AM EDT Narrative 09/25/2023 12:00 PM EDT [address] [place] [address] ? Echocardiogram Report Name: GABI WALLER ?Study Date: 09/25/2023 06:57 AMBP: 102/75 mmHg ? Patient Location: [address] : 1960 ? Height: 165 cm ? Account: [id number] Age: 62 yrs ? Weight: 56 kg Gender: Female ?BSA: 1.6 m2 Ordering Physician: LINDA BAILEY Performed By: Shaylee Suazo RDCS Reason For Study: avr Exam Location: [facility]. Interpretation Summary -Left ventricle is of normal [...] there has not been a significant change. Procedure Complete-[id number]. Satisfactory quality. Left Ventricle Left ventricle is of normal size. Wall thickness is normal. Left ventricular systolic function is normal. The left ventricular ejection fraction is 58% by 3D volumetric assessment. There are no segmental wall motion abnormalities. Right Ventricle The right ventricle is of normal size. Right ventricular systolic function is normal. Left Atrium The left atrium is normal. No abnormality of the interatrial septum is identified. Right Atrium The right atrium is normal. Aortic Valve The aortic valve is tricuspid. There is no aortic stenosis. There is no aortic regurgitation. The date or year of insertion is 2021. The peak gradient across the prosthesis is 6.3 mmHg . The mean gradient across the prosthesis is 3.3 mmHg . The aortic prosthetic valve appears to be functioning normally. Mitral Valve The mitral valve is structurally normal. There is no mitral stenosis. There is mild mitral regurgitation. Tricuspid Valve The tricuspid valve is structurally and functionally normal. There is no tricuspid stenosis. There is moderate tricuspid regurgitation. Pulmonic Valve The pulmonic valve appears to be structurally and functionally normal. Great Arteries The aortic root is of normal size. No abnormalities are identified. No abnormalities of the pulmonary artery are identified. Venous Inferior vena cava is normal in size. Inferior vena cava collapse greater than 50% with respiration. Pericardium/Pleural There is no pericardial effusion. Hemodynamics The estimated right atrial pressure is 3mmHg. The peak right ventricular systolic pressure is 24 mmHg. Left ventricular diastolic function is normal. Left ventricular filling pressure is normal. Ejection Fraction ?2D Measurements ? Volumes EF (HM)_phl: 58.0 % ? IVSd: 0.98 cm ?LAV(MOD-bp) Indexed: ?LVIDd: 3.6 cm ?LVIDs: 2.1 cm ?28.0 ml/m2 ? RA A4Cs_phl: 17.9 cm2 ?LVPWd: 0.93 cm ? EDV(HM) Indexed: ?RWT: 0.52 {ratio} ?LV mass(C)d: 99.4 grams ?68.4 ml/m2 ?LV mass(C)dI: 61.8 grams/m2 ?ESV(HM) Indexed: ?LVOT diam: 1.7 cm ?29.2 ml/m2 ?TAPSE_phl: 1.7 cm ?SV(LVOT): 26.0 ml ? SI(LVOT): 16.2 ml/m2 Doppler LV V1 VTI: 11.7 cm Ao V2 VTI: 21.3 cm Ao Max: 125.3 cm/sec Ao valve max: 6.3 mmHg Ao valve mean: 3.3 mmHg MV E max kiko: 77.2 cm/sec Med Peak E' Kiko: 9.6 cm/sec E/e' (med): 8.1 SUDHAKAR(I,D): 1.2 cm2 Dimensionless index Aov: 0.55 TR max kiko: 214.2 cm/sec I ?WMSI = 1.00 ? % Normal = 100 ?Segments ??Size X - Cannot ?2 - ?4 - ?1-2 ? small Interpret ?1 - Normal ?? Hypokinetic 3 - Akinetic Dyskinetic ?? 3-5 ? moderate 5 - ? 6-14 ?large Aneurysmal ?15-16 ?? diffuse Procedure Note Mandeep Franco MD - 09/25/2023 [address] [place] [address] Echocardiogram Report Name: GABI WALLER Study Date: 406:57 AMBP: 102/75 mmHg Patient Location: [address] : 1960 Height: 165 cm Account: [id number] Age: 62 yrs Weight: 56 kg Gender: Female BSA: 1.6 m2 Ordering Physician: LINAD BAILEY Performed By: Shaylee Suazo RDCS Reason For Study: avr Exam Location: [facility]. Interpretation Summary -Left ventricle is of normal size. Wall thickness is normal. Leftventricular systolic function is normal. The left ventricular ejection fraction is 58%by 3D volumetric assessment. There are no segmental wall motion abnormalities -The right ventricle is of normal size. Right ventricular systolicfunction is normal. -The aortic prosthetic valve appears to be functioning normally. -There is moderate tricuspid regurgitation. -Compared to 03/08/2022, there has not been a significant change. Procedure Complete-[id number]. Satisfactory quality. Left Ventricle Left ventricle is of normal size. Wall thickness is normal. Leftventricular systolic function is normal. The left ventricular ejection fraction is 58%by 3D volumetric assessment. There are no segmental wall motion abnormalities. Right Ventricle The right ventricle is of normal size. Right ventricular systolic functionis normal. Left Atrium The left atrium is normal. No abnormality of the interatrial septum isidentified. Right Atrium The right atrium is normal. Aortic Valve The aortic valve is tricuspid. There is no aortic stenosis. There is noaortic regurgitation. The date or year of insertion is 2021. The peak gradientacross the prosthesis is 6.3 mmHg . The mean gradient across the prosthesis is 3.3mmHg . The aortic prosthetic valve appears to be functioning normally. Mitral Valve The mitral valve is structurally normal. There is no mitral stenosis.There is mild mitral regurgitation. Tricuspid Valve The tricuspid valve is structurally and functionally normal. There is notricuspid stenosis. There is moderate tricuspid regurgitation. Pulmonic Valve The pulmonic valve appears to be structurally and functionally normal. Great Arteries The aortic root is of normal size. No abnormalities are identified. No abnormalities of the pulmonary artery are identified. Venous Inferior vena cava is normal in size. Inferior vena cava collapse greaterthan 50% with respiration. Pericardium/Pleural There is no pericardial effusion. Hemodynamics The estimated right atrial pressure is 3mmHg. The peak right ventricularsystolic pressure is 24 mmHg. Left ventricular diastolic function is normal. Left ventricular filling pressure is normal. Ejection Fraction 2D Measurements Volumes EF (HM)_phl: 58.0 % IVSd: 0.98 cm LAV(MOD-bp)Indexed: LVIDd: 3.6 cm LVIDs: 2.1 cm 28.0 ml/m2 RA A4Cs_phl: 17.9cm2 LVPWd: 0.93 cm EDV()Indexed: RWT: 0.52 {ratio} LV mass(C)d: 99.4 grams 68.4 ml/m2 LV mass(C)dI: 61.8 grams/m2 ESV()Indexed: LVOT diam: 1.7 cm 29.2 ml/m2 TAPSE_phl: 1.7 cm SV(LVOT): 26.0ml SI(LVOT): 16.2ml/m2 Doppler LV V1 VTI: 11.7 cm Ao V2 VTI: 21.3 cm Ao Max: 125.3 cm/sec Ao valve max: 6.3 mmHg Ao valve mean: 3.3 mmHg MV E max kiko: 77.2 cm/sec Med Peak E' Kiko: 9.6 cm/sec E/e' (med): 8.1 SUDHAKAR(I,D): 1.2 cm2 Dimensionless index Aov: 0.55 TR max kiko: 214.2 cm/sec I WMSI = 1.00 % Normal = 100 SegmentsSize X - Cannot 2 - 4 - 1-2small Interpret 1 - Normal Hypokinetic 3 - Akinetic Dyskinetic 3-5moderate 5 - 6-14large Aneurysmal 15-16diffuse Linda Bailey MD ECHO ORDERABLES * (ABNORMAL) Hemogram (09/25/2023 3:07 AM EDT) Only the most recent of2 resultswithin the time period is included. White Blood Cell 6.2 4.0 - 9.5 x10(3)/mc L [facility] Red Blood Cell 4.23 4.00 - 5.21 x10(6)/mc L [facility] Hemoglobin 14.4 11.7 - 15.5 g/dL [facility] Hematocrit 40.9 35.7 - 45.8 % [facility] Mean Cell Volume 96.7(H) 82.6 - 94.4 fL [facility] Mean Cell Hemoglobin 34.0(H) 27.1 - 32.0 pg [facility] Mean Cell Hemoglobin Concentration 35.2(H) 31.7 - 35.0 g/dL [facility] Platelet 260 145 - 357 x10(3)/mc L [facility] RDW Standard Deviation 40.9 37.0 - 46.0 fL [facility] RDW coefficient of variation 11.5 11.5 - 14.1 % [facility] Mean Platelet Volume 8.7 7.6 - 12.9 fL [facility] NRBC% auto 0.0 % [facility] NRBC Absolute 0.000 0.000 - 0.000 x10(3)/mc L [facility] Blood 09/25/2023 3:07 AM EDT 09/25/2023 3:17 AM EDT Narrative Resulting Agency Comment Spec In Lab Linda Bailey MD HEMATOLOGY ORDERABLE S Performing Organization Address City/[facility]/ZIP Co de Phone Number [facility] [place] [address] * Gold Tube HOLD (09/25/2023 3:07 AM EDT) Only the most recent of2 resultswithin the time period is included. Gold Hold Sample in lab. [facility] Blood Venous Draw / Unknown 09/25/2023 3:07 AM EDT 09/25/2023 3:[address] Wiliam Hidalgo MD CHEMISTRY ORDERABLES [facility] [place] [id number] * Blue Tube HOLD (09/25/2023 3:07 AM EDT) Only the most recent of2 resultswithin the time period is included. Blue Hold Sample in lab. [facility] Blood Venous Draw / Unknown 09/25/2023 3:07 AM EDT 09/25/2023 3:[address] Wiliam Hidalgo MD HEMATOLOGY ORDERABLE S [facility] [place] [address] * (ABNORMAL) Comprehensive metabolic panel (non-fasting) (09/25/2023 3:07 AM EDT) Glucose 100 65 - 199 mg/dL [facility] Comment:Diabetes: >=200 mg/d L plus symptoms Blood Urea Nitrogen 8 8 - 18 mg/dL [facility] Creatinine 0.67(L) 0.70 - 1.20 mg/dL [facility] Sodium 138 135 - 145 mmol/L [facility] Potassium 3.9 3.5 - 5.0 mmol/L [facility] Comment: Please note: ??Patients with WBC >100,000 may have falsely elevated Potassium levels. ??For accurate Potassium quantification in these patients send serum separator tube (gold top) for subsequent determinations. ??Contact the Clinical Chemistry Laboratory if there are any questions. Chloride 105 98 - 107 mmol/L [facility] Carbon Dioxide 22 22 - 31 mmol/L [facility] Anion Gap 11 5 - 15 mmol/L [facility] Calcium 9.7 8.5 - 10.5 mg/dL [facility] Protein, Total 6.6 6.1 - 8.0 g/dL [facility] Albumin 4.1 3.2 - 5.2 g/dL [facility] Aspartate Aminotransferase 18 0 - 30 unit/L [facility] Alanine Aminotransferase 21 0 - 30 unit/L [facility] Alkaline Phosphatase 83 35 - 105 unit/L [facility] Bilirubin, Total 0.8 0.2 - 1.3 mg/dL [facility] Est Glomerular Filtration Rate 99 >=60 mL/min/1. 73 m?? [facility] Comment: This patient's estimated GFR [...] and symptoms in addition to eGFR. Blood 09/25/2023 3:07 AM EDT 09/25/2023 3:17 AM EDT Narrative Resulting Agency Comment Spec In Lab Linda Bailey MD CHEMISTRY ORDERABLES [facility] [place] [address] * Troponin (09/24/2023 10:56 PM EDT) Only the most recent of2 resultswithin the time period is included. Troponin-T, High Sensitivity 7 <=14 ng/L [facility] Comment: This patient's troponin T concentration was determined using the Elo 5th Generation troponin T assay. The 99th percentile for Troponin T for this test is 14 ng/L for females, and 22 ng/L for males. According to the fourth universal definition of myocardial infarction, the term acute myocardial infarction should be used when there is acute myocardial injury with clinical evidence of acute myocardial ischemia and with detection of a rise and/or fall of cardiac troponin values with at least one value above the 99th percentile and at least one of the following: - Symptoms of myocardial ischemia; - New ischemic ECG changes; - Development of pathological Q waves; - Imaging evidence of new loss of viable myocardium or new regional wall motion abnormality in a pattern consistent with an ischemic etiology; - Identification of a coronary thrombus by angiography or autopsy (not for type 2 or 3 MIs) Serial measurement of troponin and the change in troponin concentration over time (delta) is crucial for the diagnosis of acute myocardial infarction. Guidance on the interpretation of the new 5th Generation Troponin T values and the delta troponin value can be found in the [facility] Test Catalog Troponin - [facility] Test Catalog Reference: Fourth Mears Definition of Myocardial Infarction. Journal of the [place] [employer] 2018;72:5686-2284 Blood 09/24/2023 10:5 6 PM EDT 09/24/2023 11:02 PM EDT Narrative Resulting Agency Comment Spec In Lab Nick Nichols MD CHEMISTRY ORDERABLE S [facility] [place] [address] * XR Chest PA & Lateral (Generic) (09/24/2023 10:55 PM EDT) WORKSTATION ID [id number] RAD Anatomical Region Laterality Modality Chest N/A Digital Radiogra phy Impressions 09/24/2023 11:06 PM EDT No acute finding. Thank you for letting us participate in the care of this patient. ??If you are a health care provider and have any questions regarding this report, please contact the number below. ??For patients who have questions please contact the health aged or disabled care worker that requested your imaging first. ? Narrative 09/24/2023 11:06 PM EDT EXAMINATION: XR CHEST PA AND LATERAL (GENERIC) CLINICAL HISTORY: SOB, a fib, ? edema TECHNIQUE: PA and lateral views of the chest COMPARISON: Chest CT 09/13/2023 and chest radiograph 09/13/2023 FINDINGS: Unchanged appearance of median sternotomy and aortic valve. The lungs are clear. The kassie and cardiomediastinal silhouette are normal. No pleural collection or pneumothorax. Review of bone windows is unremarkable. Procedure Note Sabrina Sánchez MD - 09/24/2023 EXAMINATION: XR CHEST PA AND LATERAL (GENERIC) CLINICAL HISTORY: SOB, a fib, ? edema TECHNIQUE: PA and lateral views of the chest COMPARISON: Chest CT 09/13/2023 and chest radiograph 09/13/2023 FINDINGS: Unchanged appearance of median sternotomy and aortic valve. The lungs are clear. The kassie and cardiomediastinal silhouette are normal.No pleural collection or pneumothorax. Review of bone windows is unremarkable. IMPRESSION No acute finding. Thank you for letting us participate in the care of this patient. If youare a health care provider and have any questions regarding this report,please contact the number below. For patients who have questions please contactthe health aged or disabled care worker that requested your imaging first. Favio Topete MD IMG DX ORDERABLES * Differential, Automated (09/24/2023 8:00 PM EDT) Neutrophil % 51.3 % [facility] Neutrophil Absolute 3.99 1.70 - 6.10 x10(3)/[facility] Lymph % 34.7 % [facility] Lymphocytes Abs 2.7 0.9 - 3.2 x10(3)/[facility] Monocyte % 8.9 % [facility] Monocyte Abs 0.7 0.3 - 0.9 x10(3)/[facility] Eos % 3.3 % [facility] Eosinophils Abs 0.3 0.0 - 0.4 x10(3)/[facility] Basophil % 1.3 % [facility] Baso Absolute 0.1 0.0 - 0.1 x10(3)/[facility] Immature Gran % 0.50 % [facility] Comment: Immature granulocytes(IG's)percentage and absolute count will include metamyelocytes, myelocytes, and promyelocytes. Blood smears from CBCs yielding IG's will be scanned manually for concordance. If this scan disagrees with the automated IG or if promyelocytes are noted, a manual differential will be performed. Immature Gran Absolute 0.04 0.00 - 0.04 x10(3)/mcL [facility] Blood 09/24/2023 8:00 PM EDT 09/24/2023 8:27 PM EDT Narrative Resulting Agency Comment Spec In Lab Clem SEARS HEMATOLOGY ORDERABLE S Performing Organization Address [facility] Co de Phone Number [facility] [place] [address] * (ABNORMAL) pro-Brain Natriuretic Peptide (09/24/2023 8:00 PM EDT) NT-proBNP 1,397(H) <=124 pg/mL [facility] Blood Venous Draw / Unknown 09/24/2023 8:00 PM EDT 09/24/2023 8:13 PM EDT Narrative Resulting Agency Comment Spec In Lab Vivian Campbell MD CHEMISTRY ORDERABLES Performing Organization Address [facility] Co de Phone Number [facility] [place] [address] * Hepatic Function Panel (09/24/2023 8:00 PM EDT) Protein, Total 7.1 6.1 - 8.0 g/dL [facility] Albumin 4.4 3.2 - 5.2 g/dL [facility] Aspartate Aminotransferase 27 0 - 30 unit/L [facility] Alanine Aminotransferase 24 0 - 30 unit/L [facility] Alkaline Phosphatase 99 35 - 105 unit/L [facility] Bilirubin, Total 0.6 0.2 - 1.3 mg/dL [facility] Bilirubin, Direct 0.1 0.0 - 0.3 mg/dL [facility] Blood Venous Draw / Unknown 09/24/2023 8:00 PM EDT 09/24/2023 8:13 PM EDT Narrative Resulting Agency Comment Spec In Lab Vivian Campbell MD CHEMISTRY ORDERABLES Performing Organization Address [facility]/ZIP Co de Phone Number [facility] [place] [address] * Scan Doc: Blood Bank Business Manager (09/24/2023 12:00 AM EDT) Anatomical Region Laterality Modality Other Narrative 09/24/2023 12:00 AM EDT Ordered by an unspecified provider. Scanning Provider MEDIA MGR SCAN EXT O RDR/RSLT * Scan Doc: ECG (09/14/2023 1:03 AM EDT) Historical Provider MEDIA MGR SCAN EX T ORDR/RSLT * Film Library- Storage Only DX Chest (09/13/2023 12:05 AM EDT) Narrative [facility] 09/14/2023 12:46 AM EDT This exam is auto-finalizing. It's purpose is for storage only. Jody De Santiago MD IMG FILM LIBRARY ORD ERABLES Performing Organization Address [facility] de Phone Number [place], [place] * Film Library- Storage Only CT Chest (09/13/2023 12:00 AM EDT) Narrative [facility] 09/14/2023 12:46 AM EDT This exam is auto-finalizing. It's purpose is for storage only. Jody De Santiago MD IMG FILM LIBRARY ORD ERABLES Performing Organization Address [facility] Co de Phone Number [place], [place] * COLONOSCOPY (05/01/2021 10:39 AM EST) COLONOSCOPY [facility] Endoscopy Procedure Date: 05/01/2021 10:39 AM ? Patient Name: Gabi Waller ? Date of : 1960 ? Age: 60 ? Order #: [id number] ? Instrument Name: [id number] ? Procedure: ? Colonoscopy Indications: ? Screening for colorectal malignant ? neoplasm Providers: ? Arlin Agudelo MD, Adriana Gray ? Alvarez Phipps, Manager Strategic Marketing Referring MD: ?Evelyne Hunt Medicines: ? Midazolam 4 mg IV, Fentanyl 175 ? micrograms IV Complications: ? No immediate complications. Procedure: ? The procedure, indications, benefits, ? risks and alternatives were explained ? to the patient. Specifically ? discussed were potential ? complications including, but not ? limited to, bleeding, perforation, ? infection, missing a cancer, and ? adverse medication reactions. The ? patient was placed in the left ? lateral decubitus position, and a ? digital rectal exam was performed. ? The Colonoscope was inserted in the ? anus and under direct visualization, ? advanced to the cecum, identified by ? appendiceal orifice and ileocecal ? valve. Careful inspection was made as ? the colonoscope was withdrawn. The ? colonoscopy was performed without ? difficulty. The patient tolerated the ? procedure well. The quality of the ? bowel preparation was evaluated using ? the BBPS (Mabie Bowel Preparation ? Scale) with scores of: Right Colon = ? 2, Transverse Colon = 3 and Left ? Colon = 3. The total BBPS score ? equals 8. The quality of the bowel ? preparation was excellent. ? Findings: ? A 3 mm polyp was found in the ascending colon. The ? polyp was sessile. The polyp was removed with a cold ? snare. Resection and retrieval were complete. ? The exam was otherwise normal. ? Moderate Sedation: ? I was present during the intraservice time as ? documented by the sedation RN. Impression: ?- One 3 mm polyp in the ascending ? colon, removed with a cold snare. ? Resected and retrieved. ? - The examination was otherwise ? normal. Recommendation: ?- Await pathology results. Interval ? of next colonoscopy to be determined ? after reviewing pathology (anticipate ? 10 years). ? - Discharge home ambulatory. ? Attending Participation: ? I personally performed the entire procedure. ? Arlin Agudelo MD 05/01/2021 11:10:41 AM Number of Addenda: 0 Note Initiated On: 05/01/2021 10:39 AM PROVATION 05/01/2021 10:3 9 AM EST Evelyne Hunt APRN GENERAL SURGICAL ORD ERABLES PROVATION from Last 3 Months or Most Recently Relevant to Health Maintenance Advance Directives * Attempt Cardiopulmonary Resuscitation - Inpatient (Latest Code Status on File) Date Activated Date Inactivated Comments 09/25/2023 1:44 AM 09/25/2023 6:38 PM Question Answer Comments Code Status decision made by: Patient * Attempt Cardiopulmonary Resuscitation - Inpatient Date Activated Date Inactivated Comments 01/29/2022 12:45 PM 02/06/2022 1:11 PM Question Answer Comments Code Status decision made by: Patient * Attempt Cardiopulmonary Resuscitation - Inpatient Date Activated Date Inactivated Comments 01/29/2022 7:08 AM 01/29/2022 12:45 PM Question Answer Comments Code Status decision made by: Patient * Attempt Cardiopulmonary Resuscitation - Inpatient Date Activated Date Inactivated Comments 12/17/2021 11:55 AM 12/17/2021 6:54 PM Question Answer Comments Code Status decision made by: Patient * Attempt Cardiopulmonary Resuscitation - Inpatient Date Activated Date Inactivated Comments 12/17/2021 11:55 AM 12/17/2021 11:55 AM Question Answer Comments Code Status decision made by: Patient Care Teams Retail Pos Specialist Relationship Specialty Start Date End Date Evelyne Hunt APRN [address] [place] [address] PCP - General Internal Medicine 09/23/17
--- OUTSIDE RECORDS SUMMARY | 2023-12-01 02:08 | XMS_ITS | Encounter Summary ---
Author Organization [facility] [place] [address] Care Team Providers Care Upholstery Auto Trimmer Name Role Phone Evelyne Hunt APRN Primary Care Provider [phone] Encounter Details Date Type Department Care Team (Latest Contact Info) Description 11/02/2023 Travel Social History Tobacco Use Types Packs/Day Years Used Date Smoking Tobacco: Former Cigarettes Q uit: 07/12/1977 Smokeless Tobacco: Never Alcohol Use Standard Drinks/Week Comments Not Currently 0 (1 standard drink = 0.6 oz pur e alcohol) [facility] Utilities Answer Date Recorded In [...] any time in the past 12 m [facility], were you homeless or living in a senior living (including now)? No 09/25/2023 IPV Inpatient Questions [...] 9:[address] Scan at [place] [phone] Xavier Malhotra MD [facility] [place] [address] 12/29/2023 Hospital Encounter Electrophysiology Lab at [place] [phone] Xavier Malhotra MD [facility] [place] [address] Paroxysmal atrial fibrillation 12/29/2023 7:30 AM EDT - 12/29/2023 12:00 PM EDT Surgery Electrophysiology Lab at [place] [phone] Xavier Malhotra MD [facility] [place] [address] ELECTROPHYSIOLOGY PROCEDURE 01/14/2024 10:40 AM EDT Office Visit Cardiology at [place] [phone] Carmen Castaneda PA [facility] [place] [address] Scheduled Procedures Name Priority Associated Diagnoses Date/Ti me TRANSESOPHAGEAL ECHO DURING CATH/EP PROCEDURE Paroxysmal atrial fibrillation 12/29/2023 7:30 AM EDT documented as of this encounter Goals Goal Patient Goal Type Associated Problems Recent Progress Patient-Stated? Author DH Home Medication Compliance and Understanding Patient Facing Action Plan Lani Love, [facility] Note: Maintain control of disease for as long as possible as assessed by tumor marker levels and scans in clinic every 3 to 6 months documented as of this encounter Visit Diagnoses Not on filedocumented in this encounter Care Teams Upholstery Auto Trimmer Relationship Specialty Start Date End Date Evelyne Hunt APRN [address] [place] [address] PCP - General Internal Medicine 09/23/17 documented as of this encounter
--- OUTSIDE RECORDS SUMMARY | 2023-12-01 02:08 | XMS_ITS | Encounter Summary ---
Author Organization [facility] Address [facility] [place] [address] Care Team Providers Care Exotic Dancer Name Role Phone Evelyne Hunt APRN Primary Care Provider [phone] Reason for Referral * Diagnostic Test (Routine) - Closed Specialty Diagnoses / Procedures Referred By Contac t Referred To Contact Cardiology Diagnoses Atrial fibrillation, unspecified type SOB (shortness of breath) Fatigue, unspecified type Procedures Ziopatch 48 Hrs-15 Days Carmen Castaneda PA [facility] [place] [address] [facility] [place] [address] Referral ID Status Reason Start Date Expiration Date V isits Requested Visits Authorized [id number] Closed Specialty Service Requested 10/09/2023 10/08/2024 1 1 Reason for Visit * Diagnostic Test (Routine) - Closed Specialty Diagnoses / Procedures Referred By Contac t Referred To Contact Cardiology Diagnoses Atrial fibrillation, unspecified type SOB (shortness of breath) Fatigue, unspecified type Procedures Ziopatch 48 Hrs-15 Days Carmen Castaneda PA [facility] [place] [address] [facility] [place] [address] Referral ID Status Reason Start Date Expiration Date V isits Requested Visits Authorized [id number] Closed Specialty Service Requested 10/09/2023 10/08/2024 1 1 Encounter Details Date Type Department Care Team (Latest Contact Info) Description 10/31/2023 7:27 AM EDT - 10/31/2023 11:59 PM EDT Hospital Encounter Non-Invasive Cardiology Lab [facility] [place] [phone] Mandeep Franco MD [facility] [place] [address] Atrial fibrillation, unspecified type; SOB (shortness of breath); Fatigue, unspecified type Discharge Disposition: Home Social History Tobacco Use Types Packs/Day Years Used Date Smoking Tobacco: Former Cigarettes Q uit: 07/12/1977 Smokeless Tobacco: Never Alcohol Use Standard Drinks/Week Comments Not Currently 0 (1 standard drink = 0.6 oz pur e alcohol) [facility] Utilities Answer Date Recorded In [...] any time in the past 12 m [facility], were you homeless or [...] 9:[address] [place] [address] Xavier Malhotra MD [facility] [address] [place] [address] 12/29/2023 Hospital Encounter Electrophysiology Lab at [place] [phone] Xavier Malhotra MD [facility] [place] [address] Paroxysmal atrial fibrillation 12/29/2023 7:30 AM EDT - 12/29/2023 12:00 PM EDT Surgery Electrophysiology Lab at [address] Xavier Malhotra MD [facility] [place] [address] ELECTROPHYSIOLOGY PROCEDURE 01/14/2024 10:40 AM EDT Office [place] [address] Carmen Castaneda PA [facility] [place] [address] Scheduled Procedures Name Priority Associated Diagnoses Date/Ti me TRANSESOPHAGEAL ECHO DURING CATH/EP PROCEDURE Paroxysmal atrial fibrillation 12/29/2023 7:30 AM EDT documented as of this encounter Goals Goal Patient Goal Type Associated Problems Recent Progress Patient-Stated? Author DH Home Medication Compliance and Understanding Patient Facing Action Plan Lani Love, [facility] Note: Maintain control of disease for as long as possible as assessed by tumor marker levels and scans in clinic every 3 to 6 months documented as of this encounter Procedures Procedure Name Priority Date/Time Associated Diagnosis Comments ZIOPATCH 48 HRS-15 DAYS Routine 10/31/2023 7:27 AM EDT Atrial fibrillation, unspecified type SOB (shortness of breath) Fatigue, unspecified type documented in this encounter Results * Ziopatch 48 Hrs-15 Days (10/31/2023 7:27 AM EDT) Total Enrollment Period [id number] IRHYTHM Anatomical Region Laterality Modality Other 10/31/2023 Narrative 11/28/2023 7:53 AM EDT [facility] ? [facility]io Patch Ambulatory Cardiac Event [...] tab. ??For patients accessing the study from [facility] (My Chart), click on the link or links found in the IMAGES area below the text of the report. Valeriy Waddell MD FACC Mandeep Franco MD CARDIAC [facility] documented in this encounter Visit Diagnoses Diagnosis Atrial fibrillation, unspecified type SOB (shortness of breath) Shortness of breath Fatigue, unspecified type Paroxysmal atrial fibrillation Atrial fibrillation Paroxysmal atrial fibrillation Atrial fibrillation documented in this encounter Care Teams Exotic Dancer Relationship Specialty Start Date End Date Evelyne Hunt, CALENDER OPERATOR HELPER [address] [place] [address] PCP - General Internal Medicine 09/23/17 documented as of this encounter
--- OUTSIDE RECORDS SUMMARY | 2023-12-01 02:08 | XMS_ITS | Encounter Summary ---
Author Organization [facility] [place] [address] Care Team Providers Care Service Unit Operator Name Role Phone Evelyne Hunt APRN Primary Care Provider [phone] Encounter Details Date Type Department Care Team (Late st Contact Info) Description 11/04/2023 Telephone [place] [phone] Eleni Ng, [facility] OBSTETRICS & [place] [address] Social History Tobacco Use Types Packs/Day Years Used Date Smoking Tobacco: Former Cigarettes Q uit: 07/12/1977 Smokeless Tobacco: Never Alcohol Use Standard Drinks/Week Comments Not Currently 0 (1 standard drink = 0.6 oz pur e alcohol) [facility] Utilities Answer Date Recorded In the past 12 months has e [place] [employer], gas, oil, or water [employer] threatened to shut off services in your [...] any time in the past 12 m [facility], were you homeless or living in a group home (including now)? No 09/25/2023 IPV Inpatient Questions [...] encounter Miscellaneous Notes * Telephone Encounter - Eleni Ng DO - 11/04/2023 3:35 PM EDT Voicemail confirmed name and phone number in patient voice. Left a message offering referral to Consumer Relations Complaint Clerk Dr. Webster who specializes in both her problems oflichen sclerosis and pelvic pain. Instructed the patient to call the clinic if she wishes to schedule with Dr. Webster. I would anticipate it appropriate to schedule in ~3 months, so that she can see if pelvic floor PT is helping when she comes for follow up on the pelvic pain / dyspareunia problem. Eleni Ng DO, PGY-3 Obstetrics and Gynecology 11/04/23 documented in this encounter Plan of Treatment Upcoming Encounters Date Type Department Care Team (Latest Contact Info) Description 12/25/2023 9:[address] [place] [address] [facility] [place] [address] 12/29/2023 Hospital Encounter [place] [address] [facility] ELECTROP[place] [address] Paroxysmal atrial fibrillation 12/29/2023 7:30 AM EDT - 12/29/2023 12:00 PM EDT Surgery [place] [phone] [facility] [place] [address] ELECTROPHYSIOLOGY PROCEDURE 01/14/2024 10:40 AM EDT Office Visit Cardiology at [address] [place] [address] [phone] [facility] [place] [address] Scheduled Procedures Name Priority Associated Diagnoses Date/Ti me TRANSESOPHAGEAL ECHO DURING CATH/EP PROCEDURE Paroxysmal atrial fibrillation 12/29/2023 7:30 AM EDT documented as of this encounter Goals Goal Patient Goal Type Associated Problems Recent Progress Patient-Stated? Author [facility] Medication Compliance and Understanding Patient Facing Action Plan Lani Love, [facility] Note: Maintain control of disease for as long as possible as assessed by tumor marker levels and scans in clinic every 3 to 6 months documented as of this encounter Visit Diagnoses Not on filedocumented in this encounter Care Teams Service Unit Operator Relationship Specialty Start Date End Date Evelyne Hunt APRN [address] [facility] [place] [address] PCP - General Internal Medicine 09/23/17 documented as of this encounter
--- OUTSIDE RECORDS SUMMARY | 2023-12-01 02:09 | XMS_ITS | Encounter Summary ---
Author Organization [facility] Address [facility] [place] [address] Care Team Providers Care Welt Slasher Name Role Phone Evelyne Hunt Dat STEVEN Primary Care Provider [phone] Encounter Details Date Type Department Care Team (Late st Contact Info) Description 07/11/2023 Notes [place] [phone] Cait Giron, DEANDRE Social History Tobacco Use Types Packs/Day Years Used Date Smoking Tobacco: Former Cigarettes Q uit: 07/12/1977 Smokeless Tobacco: Never Alcohol Use Standard Drinks/Week Comments Not Currently 0 (1 standard drink = 0.6 oz pur e alcohol) Sex and Gender Information Value Date Recorded Sex Assigned at Not on file Gender Identity Not on file Sexual Orientation Not on file documented as of this encounter Progress Notes * Cait Giron MSW - 07/11/2023 10:40 AM EDT Per referral from bushel worker onc nursing team I'm able to contact Ivana to assess for supports and resources in addition to mental health referral placed by gynecology oncologist Dr. Iram Laird. Ivana reports that she was diagnosed with ovarian cancer in 2019 during and found herself veryisolated during this time. She realized then that she needed to be very self-reliant. She describesself care practice that includes meditation, walking almost every day with different friends (one an ovarian cancer survivor and another with metastatic ovarian disease). She recently attended the [employer] in [facility], a group for women that includes meditation, sound healing, and support. She has done therapy in the past and feels ready to try it again. We review option of starting with usp practitioner in the community (e.g. [facility] atebere) but Ivana would like to follow through with [facility] psychotherapy team for short term counseling, as she's interested to begin therapy with a practitioner familiar with cancer diagnosis and treatment. Ivana reports that the impetus for getting back into therapy is that she has lost many people lately, stating I feel like I'm surrounded by sadness and loss. Someone she knows recently committed suicide. She states, I live constantly like I live in two worlds, the living and the sadness. I'm sad all the time and I don't want to be. We discuss the reality of Ivana's perception of sadness in the world, and the need for robust support as she experiences this. She reports that in the past she would try to avoid feeling/awareness of the sadness, but this didn't worked. Ivana receives another call and we have to hang up quickly. I will continue to be available to her as needed throughout treatment. Completed today: Brief assessment Supportive Counseling Nola Giron (Stephanie) [facility] Comprehensive Breast Program [facility] documented in this encounter Plan of Treatment Upcoming Encounters Date Type Department Care Team (Latest Contact Info) Description 12/25/2023 9:[address] [place] [phone] Xavier Malhotra MD [facility] [place] [address] 12/29/2023 Hospital Encounter [place] [phone] Xavier Malhotra MD [facility] [place] [address] Paroxysmal atrial fibrillation 12/29/2023 7:30 AM EDT - 12/29/2023 12:00 PM EDT Surgery [place] [phone] Xavier Malhotra MD [facility] [place] [address] ELECTROPHYSIOLOGY PROCEDURE 01/14/2024 10:40 AM EDT Office Visit Cardiology at [address] [phone] Carmen Castaneda PA [facility] [place] [address] Scheduled Procedures Name Priority Associated Diagnoses Date/Ti me TRANSESOPHAGEAL ECHO DURING CATH/EP PROCEDURE Paroxysmal atrial fibrillation 12/29/2023 7:30 AM EDT documented as of this encounter Goals Goal Patient Goal Type Associated Problems Recent Progress Patient-Stated? Author DH Home Medication Compliance and Understanding Patient Facing Action Plan Lani Love, [facility] Note: Maintain control of disease for as long as possible as assessed by tumor marker levels and scans in clinic every 3 to 6 months documented as of this encounter Visit Diagnoses Not on filedocumented in this encounter Care Teams Welt Slasher Relationship Specialty Start Date End Date Evelyne Hunt APRN [address] [place] [address] PCP - General Internal Medicine 09/23/17 documented as of this encounter
--- OUTSIDE RECORDS SUMMARY | 2023-12-01 02:09 | XMS_ITS | Encounter Summary ---
Author Organization [facility] [place] [address] Care Team Providers Care Electrical Systems Drafter Name Role Phone Kiki Huntjunaid Daugherty APRN Primary Care Provider [phone] Encounter Details Date Type Department Care Team (Latest Contact Info) Description 11/11/2022 Travel Social History Tobacco Use Types Packs/Day [...] 9:[address] [place] [address] Xavier Malhotra MD [facility] [place] [address] 12/29/2023 Hospital Encounter [place] [phone] Xavier Malhotra MD [facility] [place] [address] Paroxysmal atrial fibrillation 12/29/2023 7:30 AM EDT - 12/29/2023 12:00 PM EDT Surgery [place] [address] Xavier Malhotra MD [facility] [place] [address] ELECTROPHYSIOLOGY PROCEDURE 01/14/2024 10:40 AM EDT Office Visit Cardiology at [address] [phone] Carmen Castaneda PA [facility] [place] [address] Scheduled Procedures Name Priority Associated Diagnoses Date/Ti me TRANSESOPHAGEAL ECHO DURING CATH/EP PROCEDURE Paroxysmal atrial fibrillation 12/29/2023 7:30 AM EDT documented as of this encounter Goals Goal Patient Goal Type Associated Problems Recent Progress Patient-Stated? Author DH Home Medication Compliance and Understanding Patient Facing Action Plan No Lani Vargas, [facility] Note: Maintain control of disease for as long as possible as assessed by tumor marker levels and scans in clinic every 3 to 6 months documented as of this encounter Visit Diagnoses Not on filedocumented in this encounter Care Teams Electrical Systems Drafter Relationship Specialty Start Date End Date Evelyne Hunt APRN [address] [place] [address] PCP - General Internal Medicine 09/23/17 documented as of this encounter
--- OUTSIDE RECORDS SUMMARY | 2023-12-01 02:09 | XMS_ITS | Encounter Summary ---
Author Organization [facility] [place] [address] Care Team Providers Care Lead Systems Analyst Name Role Phone Marilee Evelyne Daugherty APRN Primary Care Provider [phone] Encounter Details Date Type Department Care Team (Late st Contact Info) Description 09/14/2023 Telephone Cardiology at [address] [phone] Ernie Saenz MD [facility] [place] [address] Social History Tobacco Use Types Packs/Day Years [...] encounter Miscellaneous Notes * Telephone Encounter - Ernie Saenz MD - 09/14/2023 1:05 AM EDT Telephone Triage Note Initial Contact Date: 09/14/2023 Initial Contact Time: 1:06 Referring Provider: Dr. De Santiago Patient [facility] Presenting Symptoms per OSH: Ms. 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 VS: BP 145/112, HR 118, RR 15, SpO2 98% on RA Pertinent Diagnostic Findings: - ECG notable for atrial fibrillation (HR 111 BPM) and LAFB, non-specific TW changes OSH Interventions: - Metoprolol with improvement in HR 110s to 90s - Mg replacement - No K derrangement Plan: Symptomatic atrial fibrillation, hemodynamically stable and currently rate controlled Recommend starting therapeutic anticoagulation Can plan for cardioversion, though the PALLAVI MUST be cleared beforehand (I see a history of paroxysmal atrial fibrillation in the chart). This can be achieved either by TON or dedicated cardiac CT. If unable to clear the PALLAVI, can plan for cardioversion after 21 days of therapeutic anticoagulation. Recommend follow-up with EP outpatient. Above recommendations/plans are based on my conversation with the referring provider. I have not personally interviewed or examined this patient. Ernie Saenz MD Heel Coverer PGY-6 [facility] documented in this encounter Plan of Treatment Upcoming Encounters Date Type Department Care Team (Latest Contact Info) Description 12/25/2023 9:[address] [place] [address] Xavier Malhotra MD [facility] [place] [address] 12/29/2023 Hospital Encounter Electrophys[place] [address] Xavier Malhotra MD [facility] [place] [address] Paroxysmal atrial fibrillation 12/29/2023 7:30 AM EDT - 12/29/2023 12:00 PM EDT Surgery Electrophys[place] [address] Xavier Malhotra MD [facility] [place] [address] ELECTROPHYSIOLOGY PROCEDURE 01/14/2024 10:40 AM EDT Office Visit Cardiology at [address] [address] Carmen Castaneda PA [facility] [place] [address] Scheduled Procedures Name Priority Associated Diagnoses Date/Ti me TRANSESOPHAGEAL ECHO DURING CATH/EP PROCEDURE Paroxysmal atrial fibrillation 12/29/2023 7:30 AM EDT documented as of this encounter Goals Goal Patient Goal Type Associated Problems Recent Progress Patient-Stated? Author [facility] Medication Compliance and Understanding Patient Facing Action Plan Lani Love, [facility] Note: Maintain control of disease for as long as possible as assessed by tumor marker levels and scans in clinic every 3 to 6 months documented as of this encounter Visit Diagnoses Not on filedocumented in this encounter Care Teams Lead Systems Analyst Relationship Specialty Start Date End Date Evelyne Hunt, TENISHA [address] [place] [address] PCP - General Internal Medicine 09/23/17 documented as of this encounter
--- OUTSIDE RECORDS SUMMARY | 2023-12-01 02:09 | XMS_ITS | Encounter Summary ---
[place] [address] Care Team Providers Care Engineer Booster And Exhauster Name Role Phone Kiki Huntyce Dat STEVEN Primary Care Provider [phone] Reason for Visit * Reason Comments Skin Check Encounter Details Date Type Department Care Team (Late st Contact Info) Description 11/11/2022 8:00 AM EDT Office Visit Dermatology at [address] [phone] Haresh Erwin MD [address] [facility] [place] [address] Vitiligo; Actinic keratosis Social History Tobacco Use Types Packs/Day Years [...] as of this encounter Progress Notes * Haresh Erwin MD - 11/11/2022 8:00 AM EDT Problem: 1. Follow-up vitiligo 2. Patient vitiligo, successfully treated with 4 months of narrowband UVB phototherapy through January 2022 3. History of ovarian cancer 4. Status post aortic valve replacement Ivana follows up regarding recurrence of her vitiligo. Physical examination reveals a pleasant 62-year-old woman who for the last month or so has noted new areas of involvement on her wrist the dorsal hands and shins. She does not have any involvement onher face. She is a single actinic on her left forehead Assessment plan: Vitiligo, recurrent 1. Resume narrowband UVB phototherapy at [facility] orders written, consent signed 2. Return to clinic in 3 months for repeat check Actinic keratosis left forehead 1. LN 2 x 2 applied to single site. CC: Evelyne Hunt APRN documented in this encounter Plan of Treatment Upcoming Encounters Date Type Department Care Team (Latest Contact Info) Description 12/25/2023 9:[address] Scan at [place] [phone] Xavier Malhotra MD [facility] [place] [address] 12/29/2023 Hospital Encounter Electrophysiology Lab at [place] [phone] Xavier Malhotra MD [facility] [place] [address] Paroxysmal atrial fibrillation 12/29/2023 7:30 AM EDT - 12/29/2023 12:00 PM EDT Surgery Electrophysiology Lab at [address] Xavier Malhotra MD [facility] [place] [address] ELECTROPHYSIOLOGY PROCEDURE 01/14/2024 10:40 AM EDT Office Visit Cardiology at [place] [phone] Carmen Castaneda PA [facility] [place] [address] Scheduled Procedures Name Priority Associated Diagnoses Date/Ti me TRANSESOPHAGEAL ECHO DURING CATH/EP PROCEDURE Paroxysmal atrial fibrillation 12/29/2023 7:30 AM EDT documented as of this encounter Goals Goal Patient Goal Type Associated Problems Recent Progress Patient-Stated? Author DH Home Medication Compliance and Understanding Patient Facing Action Plan Lani Love, [facility] Note: Maintain control of disease for as long as possible as assessed by tumor marker levels and scans in clinic every 3 to 6 months documented as of this encounter Visit Diagnoses Diagnosis Vitiligo Actinic keratosis Paroxysmal atrial fibrillation Atrial fibrillation Paroxysmal atrial fibrillation Atrial fibrillation documented in this encounter Care Teams Engineer Booster And Exhauster Relationship Specialty Start Date End Date Evelyne Hunt, MARINA [employer] DOCK MANAGER [address] [place] [address] PCP - General Internal Medicine 09/23/17 documented as of this encounter
--- OUTSIDE RECORDS SUMMARY | 2023-12-01 02:09 | XMS_ITS | Encounter Summary ---
Author Organization Formerly [facility] [place] [address] Care Team Providers Care Printing Assistant Name Role Phone Kiki Huntyce Dat STEVEN Primary Care Provider [phone] Reason for Visit * Reason Comments Shortness of Breath Atrial Fibrillation * Auth/Cert (Routine) Specialty Diagnoses / Procedures Referred By Marcel t Referred To Contact Diagnoses Atrial fibrillation Nonrheumatic aortic valve stenosis Procedures ER OBSLinda Newby MD [facility] [place] [address] [facility] Referral ID Status Reason Start Date Expiration Date Visits Re quested Visits Authorized [id number] 1 1 Encounter Details Date Type Department Care Team (Late st Contact Info) Description 09/25/2023 11:15 AM EDT - 09/25/2023 12:05 PM EDT Surgery [place] [id number] Arben Leon MD [facility] [place] [address] TRANSESOPHAGEAL ECHOCARDIOGRAM (WRVU 2.3) Social History Tobacco Use Types Packs/Day Years Used Date Smoking Tobacco: Former Cigarettes Q uit: 07/12/1977 Smokeless Tobacco: Never Alcohol Use Standard Drinks/Week Comments Not Currently 0 (1 standard drink = 0.6 oz pur e alcohol) [facility] Utilities Answer Date Recorded In the past [...] any time in the past [address] [facility], were you homeless or living in a skilled nursing (including now)? No 09/25/2023 IPV Inpatient Questions [...] Sign Reading Time Taken Comments Blood Pressure 99/84 09/25/2023 8:10 AM EDT Pulse 70 09/25/2023 8:10 AM EDT Temperature 36.7 ??C (98.1 ??F) 09/25/2023 8:10 AM ED T Respiratory Rate 18 09/25/2023 8:10 AM EDT Oxygen Saturation 100% 09/25/2023 8:10 AM EDT Inhaled Oxygen Concentration - - Weight 55.8 kg (123 lb 1.6 oz) 09/25/2023 3:53 A M EDT Height 165.1 cm (5' 5) 09/25/2023 3:53 AM EDT Body Mass Index 20.48 09/25/2023 3:53 AM EDT documented in this encounter Discharge Summaries * Kar Bryant MD - 09/25/2023 3:34 PM EDT Images from the original note were not included. Hospital Discharge Summary Patient Name: Gabi Waller Patient Age: 62 y.o. Birthdate: 1960 Admit date: 09/24/2023 Discharge date and time: 09/25/2023 Attending Physician: Linda Bailey MD ID: Gabi Waller 62 y.o. 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 Follow-up Recommendations: 1) Ivana underwent TON/Cardioversion on 09/24 and converted back to sinus successfully. She is kept onher home medications: metoprolol 75 mg daily and Eliquis 5 mg BID for her Afib. Her home ASA is also continued due to hx of aortic valve replacement. The rest of medications are as below. Discharge Diagnoses (Hospital Problems) and Secondary Diagnoses (Chronic Problems): Active Hospital Problems Diagnosis Atrial fibrillation Resolved Hospital Problems No resolved problems to display. Active Non-Hospital Problems Diagnosis (aortic stenosis) BRCA negative no germline (heritable) [...] SVT (supraventricular tachycardia) Bicuspid aortic valve Hypothyroidism History of Presentation (per 09/24/2023 Admission H&P): Gabi Eber Luisrhonda 62 y.o. 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 History was obtained from patient at bedside. The patient was recently admitted to [facility] 2 weeks ago due to feelings of dizziness and palpitations. During that admission she was found to be in A-fib with RVR. Pertelephone triage note on 09/14/2023, the patient was treated with metoprolol with improvement in heart rate, started on therapeutic anticoagulation with Eliquis with the plan for cardioversion after assessment of left atrial appendage by either TON or dedicated cardiac CT through an outpatient follow-up with electrophysiology. Per the patient, she was subsequently discharged with an increase in her home but ligia succinate from 50 mg to 75 mg and being started on Eliquis. Since her hospital visit, she mentions that she has not reached her baseline. Mentions that over the last 2 weeks her symptoms of fatigue and palpitation have progressively worsened, associated with a chest tightness. She says she has not felt like this since her valve replacement back in 2021, buteven with that she says she did not experience this level of fatigue. Due to the persistence of her symptoms, she decided to report to [facility] for further management. She denies any symptoms of fevers, chills, visual changes, changes in hearing, focal weakness worsening cough, chest pain, diarrhea, abdominal pain, dysuria, rash in any parts of the body. She mentions that she has been compliant with her medications since discharge. Social Hx - Lives in [place], [place] [address] - Enjoys swimming and walking for exercise. Is very active at baseline, hikes regularly. - Spends time with grandchildren - Has 1 son and 1 daughter - Tobacco: Non smoker - EtOH: 1 glass of wine on the weekends Family Hx: - Mother (Anuja Cain, 02/09/23) had a Bicuspid aortic valve and was cared for by Dr. Scherer - Brothers with BAV as well In the ER Vitals: 144/90, HR 90s irregular, on room air RR 18 SpO2 98% Labs: WBC 7.8, Hb 14.7, platelets 302 Sodium 134, potassium 4.2, bicarb 23 Creatinine 0.71, BUN 11 Magnesium 0.8 At bedtime troponin 7> 7 AST 27 ALT 24 ALP 99 proBNP 1397 Chest x-ray showed no acute findings. Patient was admitted to cardiology for further management Hospital Course: Gabi Waller was admitted to the Cardiology Service on 09/24/2023. The following acute and chronic medical issues were identified during this phase of their hospitalization, and managed as summarized below by problem: A fib s/p TON/Cardioversion on 09/24 H/o paroxysmal A fib H/o SVT s/p unsuccessful ablation Ivana presented with dizziness/fatigue/palpitations in setting of known Afib. She underwent TON, clear her appendage, and successfully cardioverted on 09/24 to sinus rythm. She was put back on her home medications: metoprolol 75 mg qd and eliquis 5 mg BID. Severe s/p bp aortic valve replacement ASCVD non obstructive Septal thickening w/ JERRY s/p myectomy She was continued on home ASA , Lipitor, and metoprolol. Insomnia She was continued on trazodone 100 mg PRN HS MDD/peripheral neuropathy She was continued on wellbutrin 300 mg daily Procedures: TON and cardioversion Pertinent diagnostic studies: TON Interpretation Summary TON performed to rule PALLAVI/LA [...] from earlier today, RV dysfunction now identified. TTE Interpretation Summary -Left ventricle is of normal [...] there has not been a significant change. Pertinent radiology studies: XR Chest PA & Lateral (Generic) Final Result No acute finding. Thank you for letting us participate in the care of this patient. If you are a health care provider and have any questions regarding this report, please contact the number below. For patients who have questions please contact the health daycare worker that requested your imaging first. Electronically signed by: Sabrina Sánchez MD, [facility] ([phone]), at 09/24/2023 11:06 PM Microbiology: N/A Discharge Conditions/Prognosis: Upon discharge the pt is hemodynamically stable, fully ambulatory without requiring supplemental oxygen, afebrile and pain free . Discharge to: home Discharge Medications: Your Medications Continued medications, unchanged Dose Details aspirin EC 81 mg EC (DR) tablet daily. Refills: 0 atorvastatin 10 mg tablet Commonly known as: Lipitor Take 10 mg by mouth daily. 10 mg Refills: 0 buPROPion XL 300 mg XL 24 hr tablet Commonly known as: Wellbutrin XL TK 1 T PO QAM Refills: 0 cholecalciferol (Vitamin D3) 50 mcg (2,000 unit) Capsule Take by mouth. Refills: 0 clobetasoL 0.05 % Ointment Commonly known as: Temovate Apply topically daily. Quantity: 30 g Refills: 0 Eliquis 5 mg tablet Take 1 tablet by mouth 2 times daily. Generic drug: apixaban 1 tablet Refills: 0 metoprolol succinate XL 50 mg ER 24 hr tablet Commonly known as: Toprol-XL Take 1.5 tablets by mouth nightly. 75 mg Quantity: 30 tablet Refills: 3 multivitamin Capsule Take 1 capsule by mouth daily. 1 capsule Refills: 0 traZODone 50 mg tablet Commonly known as: Desyrel TAKE ONE TO TWO TABLETS BY MOUTH AT BEDTIME NEEDED Refills: 0 Instructions Given to Patient at Discharge: Patient Instructions Instructions on Discharge to Home Why you were hospitalized - You were hospitalized due to worsening shortness of breath /palpitations from your Atrial fibrillation in which you undergone a procedure called transesophageal echocardiogram (TON) along with cardioversion (shock) in which your heart rhythm was successfully converted tonormal regular rhythm. We have made no changes to your home medications. Please continue to take those medications as prescribed. Call your doctor or seek medical attention if you develop the following - chest pain, shortness of breath, fever, cough, weakness in an arm or leg Activity level - as tolerated Diet - Heart-healthy diet. Please try to eat fresh fruits and vegetables. Please try to limit your intake of: fats (especially saturated and trans), salt (sodium), and limit alcohol use. Driving - as before hospitalization Shower/Bath - as before Wound Care - None Home Oxygen therapy - None Your Medications Continued medications, unchanged Dose Details aspirin EC 81 mg EC (DR) tablet daily. Refills: 0 atorvastatin 10 mg tablet Commonly known as: Lipitor Take 10 mg by mouth daily. 10 mg Refills: 0 buPROPion XL 300 mg XL 24 hr tablet Commonly known as: Wellbutrin XL TK 1 T PO QAM Refills: 0 cholecalciferol (Vitamin D3) 50 mcg (2,000 unit) Capsule Take by mouth. Refills: 0 clobetasoL 0.05 % Ointment Commonly known as: Temovate Apply topically daily. Quantity: 30 g Refills: 0 Eliquis 5 mg tablet Take 1 tablet by mouth 2 times daily. Generic drug: apixaban 1 tablet Refills: 0 metoprolol succinate XL 50 mg ER 24 hr tablet Commonly known as: Toprol-XL Take 1.5 tablets by mouth nightly. 75 mg Quantity: 30 tablet Refills: 3 multivitamin Capsule Take 1 capsule by mouth daily. 1 capsule Refills: 0 traZODone 50 mg tablet Commonly known as: Desyrel TAKE ONE TO TWO TABLETS BY MOUTH AT BEDTIME NEEDED Refills: 0 Follow-up: Future Appointments Date Time Provider Department Center 11/04/2023 10:20 AM Iram Laird MD [facility] SMART ENERGY SPECIALIST [address] [place] [address] 11/28/2023 10:00 AM Mandeep Franco MD [facility] CARD [address] [place] [address] Your Inpatient Doctor: MD Linda Contreras MD ChanBormey Leatheng, MD Your Primary Care Provider: Evelyne Hunt, [employer] [phone] For questions regarding this document or issues relating to this hospitalization on the Medical Service, please contact your inpatient physician through the [facility] Chemistry Account Manager . Issues afterhours and on weekends will be handled by the Hospitalist staff on-call. General Instructions None Future Appointments and Orders Future Appointments and Orders Future Appointments Provider Department Dept Phone 11/04/2023 10:20 AM Iram Laird MD Gynecology Oncology at [facility] Arrive at: [employer] Preparer Area 3K [phone] 11/28/2023 10:00 AM Mandeep Franco MD Cardiology at [facility] Arrive at: [employer] [facility] Area [phone] Provider Contact Information: Evelyne Hunt, [employer] [address] [facility] [place] [address] Discharge References/Attachments: Discharge References/Attachments None documented in this encounter Discharge Instructions * Patient Instructions* Kar Bryant MD - 09/25/2023 3:45 PM EDT Instructions on Discharge to Home Why you were hospitalized - You were hospitalized due to worsening shortness of breath /palpitations from your Atrial fibrillation in which you undergone a procedure called transesophageal echocardiogram (TON) along with cardioversion (shock) in which your heart rhythm was successfully converted tonormal regular rhythm. We have made no changes to your home medications. Please continue to take those medications as prescribed. Call your doctor or seek medical attention if you develop the following - chest pain, shortness of breath, fever, cough, weakness in an arm or leg Activity level - as tolerated Diet - Heart-healthy diet. Please try to eat fresh fruits and vegetables. Please try to limit your intake of: fats (especially saturated and trans), salt (sodium), and limit alcohol use. Driving - as before hospitalization Shower/Bath - as before Wound Care - None Home Oxygen therapy - None Your Medications Continued medications, unchanged Dose Details aspirin EC 81 mg EC (DR) tablet daily. Refills: 0 atorvastatin 10 mg tablet Commonly known as: Lipitor Take 10 mg by mouth daily. 10 mg Refills: 0 buPROPion XL 300 mg XL 24 hr tablet Commonly known as: Wellbutrin XL TK 1 T PO QAM Refills: 0 cholecalciferol (Vitamin D3) 50 mcg (2,000 unit) Capsule Take by mouth. Refills: 0 clobetasoL 0.05 % Ointment Commonly known as: Temovate Apply topically daily. Quantity: 30 g Refills: 0 Eliquis 5 mg tablet Take 1 tablet by mouth 2 times daily. Generic drug: apixaban 1 tablet Refills: 0 metoprolol succinate XL 50 mg ER 24 hr tablet Commonly known as: Toprol-XL Take 1.5 tablets by mouth nightly. 75 mg Quantity: 30 tablet Refills: 3 multivitamin Capsule Take 1 capsule by mouth daily. 1 capsule Refills: 0 traZODone 50 mg tablet Commonly known as: Desyrel TAKE ONE TO TWO TABLETS BY MOUTH AT BEDTIME NEEDED Refills: 0 Follow-up: Future Appointments Date Time Provider Department Center 11/04/2023 10:20 AM Iram Larid MD [facility] SMART ENERGY SPECIALIST 3K [facility] 11/28/2023 10:00 AM Mandeep Franco MD [facility] CARD 4A [facility] Your Inpatient Doctor: MD Linda Contreras MD ChanBormey Leatheng, MD Your Primary Care Provider: Evelyne A Marilee, [employer] [phone] For questions regarding this document or issues relating to this hospitalization on the Medical Service, please contact your inpatient physician through the [facility] Chemistry Account Manager . Issues afterhours and on weekends will be handled by the Hospitalist staff on-call. documented in this encounter Medications at Time of Discharge Medication Sig Dispensed Refills Start Date End Date Eliquis 5 mg tablet Take 1 tablet [...] QAM 10/01/2019 documented as of this encounter Progress Notes * Love Gutierres RN - 09/25/2023 4:33 PM EDT Patient AVS reviewed, questions answered, PIV removed intact, VSS, patient discharge to home. * Sia Marino RN - 09/25/2023 12:40 PM EDT 1210) Patient into PACU from [facility]. Attached to monitors, alarms on and appropriate for patient.Kylah ANDRES 1240) BP WNL as patient awake. Handoff accepted to nurse for 490A. Will grab one more bp and then request transportation. Kylah RN documented in this encounter H&P Notes * Aakash Joseph MD - 09/25/2023 6:23 AM EDT Gabi Waller is a 62 y.o. female referred for TON + DCCV There have not been any changes in health status since last seen in clinic. No fevers, no chills, no bleeding. Outpatient Medications Marked as Taking for the 09/24/23 encounter (Hospital Encounter) Medication Sig Dispense Refill Eliquis 5 mg tablet Take 1 tablet by mouth 2 times daily. metoprolol succinate XL (Toprol-XL) 50 mg ER 24 hr tablet TAKE ONE TABLET BY MOUTH EVERY DAY (Patient taking differently: Take 75 mg by mouth nightly.) 90 tablet 1 aspirin EC 81 mg EC (DR) tablet daily. cholecalciferol, Vitamin D3, 50 mcg (2,000 unit) Capsule Take by mouth. traZODone (Desyrel) 50 mg Tablet TAKE ONE TO TWO TABLETS BY MOUTH AT BEDTIME NEEDED atorvastatin (Lipitor) 10 mg Tablet Take 10 mg by mouth daily. buPROPion XL (Wellbutrin XL) 300 mg Tablet Extended Release 24 hr TK 1 T PO QAM BP (!) 117/93 (Patient Position: Sitting) Pulse 76 Temp 36.6 ??C (97.8 ??F) (Oral) Resp 18 Ht 165.1 cm (5' 5) Wt 55.8 kg (123 lb 1.6 oz) SpO2 98% BMI 20.48 kg/m?? Gen: Alert, comfortable appearing, in NAD CV: RRR, no M/R/G appreciated Pulm CTAB Abd soft, nt MSK/SKIN warm, dry Pulses: 2+ bilateral radial pulses, 2+ bilateral femoral pulses, no femoral bruit appreciated, 2+ bilateral DP pulses Labs reviewed and notable for: Lab Results Component Value Date WBC 6.2 09/25/2023 HGB 14.4 09/25/2023 HCT 40.9 09/25/2023 MCV 96.7 (H) 09/25/2023 PLATELET 260 09/25/2023 Lab Results Component Value Date CREATININE 0.67 (L) 09/25/2023 BUN 8 09/25/2023 NA 138 09/25/2023 K 3.9 09/25/2023 CL 105 09/25/2023 CO2 22 09/25/2023 Lab Results Component Value Date INR 2.3 02/06/2022 A/P 62 y.o. female here for TEEDCCV - consent signed [employer] Pager [phone] * Linda Bailey MD - 09/25/2023 1:58 AM EDT Images from the original note were not included. Cardiovascular Medicine Admission History and Physical Patient Name: Gabi Waller Service: Cardiology S 1 Responsible Attending: Linda Bailey MD PCP: Evelyne Hunt APRN ID:Gabi Smithrhonda 62 y.o. 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 07/20/19 TAHBSO, s/p adjuvant chemo Taxol/carbo/Avastin 6 cycles maintenance PARP/niraparib 09/2022), Vitiligo, MDD, peripheral neuropathy. History of Present Illness: Gabi Smithrhonda 62 y.o. 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 History was obtained from patient at bedside. The patient was recently admitted to [facility] 2 weeks ago due to feelings of dizziness and palpitations. During that admission she was found to be in A-fib with RVR. Pertelephone triage note on 09/14/2023, the patient was treated with metoprolol with improvement in heart rate, started on therapeutic anticoagulation with Eliquis with the plan for cardioversion after assessment of left atrial appendage by either TON or dedicated cardiac CT through an outpatient follow-up with electrophysiology. Per the patient, she was subsequently discharged with an increase in her home but ligia succinate from 50 mg to 75 mg and being started on Eliquis. Since her hospital visit, she mentions that she has not reached her baseline. Mentions that over the last 2 weeks her symptoms of fatigue and palpitation have progressively worsened, associated with a chest tightness. She says she has not felt like this since her valve replacement back in 2021, buteven with that she says she did not experience this level of fatigue. Due to the persistence of her symptoms, she decided to report to [facility] for further management. She denies any symptoms of fevers, chills, visual changes, changes in hearing, focal weakness worsening cough, chest pain, diarrhea, abdominal pain, dysuria, rash in any parts of the body. She mentions that she has been compliant with her medications since discharge. Social Hx - Lives in [place], [place] on [address] - Enjoys swimming and walking for exercise. Is very active at baseline, hikes regularly. - Spends time with grandchildren - Has 1 son and 1 daughter - Tobacco: Non smoker - EtOH: 1 glass of wine on the weekends Family Hx: - Mother (Anuja Cain, 02/09/23) had a Bicuspid aortic valve and was cared for by Dr. Scherer - Brothers with BAV as well In the ER Vitals: 144/90, HR 90s irregular, on room air RR 18 SpO2 98% Labs: WBC 7.8, Hb 14.7, platelets 302 Sodium 134, potassium 4.2, bicarb 23 Creatinine 0.71, BUN 11 Magnesium 0.8 At bedtime troponin 7> 7 AST 27 ALT 24 ALP 99 proBNP 1397 Chest x-ray showed no acute findings. Patient was admitted to cardiology for further management Review of Systems: as per HPI. Problem List/Past Medical History Patient Active Problem List Diagnosis Atrial fibrillation [...] SVT (supraventricular tachycardia) Bicuspid aortic valve Hypothyroidism Meds: Allergies: Allergies Allergen Reactions Paclitaxel Other (See Comments) and Palpitations 17 mls into Taxol C/O of palpitations/lower back pain.Drug stopped. Benadryl/Pepcid/Ativan given. Was able to start drug at half rate when symptoms subsided and increased rate every 30-60 mins. Was able to complete drug. Other Reaction(s): Other (See Comment) Paroxetine Penicillins Anaphylaxis PAT Penicillin Allergy Risk Assessment 01/07/2022: Moderate risk reaction. Patient referred to allergy clinic for pre-op testing. Patient refused referral. Sertraline Venlafaxine Betamethasone Other Reaction(s): anxious, irritated, raceing heart Family History: Mother: Father: Social History: Tobacco: EtOH: Illicits: Living Situation: Vitals: Last value Range last 24 hrs Temperature Temp: 36.4 ??C (97.5 ??F) Temp: [36.4 ??C (97.5 ??F)] Heart Rate Heart Rate: 81 Heart Rate: [77-94] Blood Pressure BP: (!) 121/100 BP: (121-153)/(86-108) Respiratory Rate Resp: 12 Resp: [10-20] SpO2 SpO2: 97 % SpO2: [97 %-99 %] Examination: General: pleasant, alert, appropriate, in no acute distress. Appears stated age. HEENT: EOMI, PERRL, anicteric sclera. Oropharynx clear w/o lesions. Moist mucous membranes Neck: supple with normal range of motion. JVD ~ Cardiac: Irregularly irregular heart rate, and A-fib, radial 2+, DP 2+, S1 plus S2 plus mild systolic murmur Respiratory: non labored. Clear to auscultation bilaterally; No wheezes/ rhonci/ crackles appreciated. Abd: + BS; soft, non-tender, non-distended, no obvious masses. Ext: WWP without le edema Neuro: The patient is alert and oriented x 3 Paresthesias plantar surface of her feet, from chemotherapy Motor Exam: Upper Limb Bilateral: Rescue Instructor Strength 5/5 Wrist Flexion/Extension 5/5 Elbow Flexion/Extension 5/5 Shoulder Abduction 5/5 Lower Limb Bilateral: Dorsi/Plantarflexion 5/5 Knee Flexion/Extension 5/5 Hip Flexion 5/5 Finger to nose test not significant Gait not assessed Skin: No rashs, no lesions, no petechiae. Laboratory: CBC: Recent Labs 09/24/231999 WBC 7.8 HGB 14.7 PLATELET 302 Chemistry: Recent Labs 09/24/231999 NA 134* K 4.2 CL 98 CO2 23 BUN 11 CREATININE 0.71 GLUCOSE 92 Recent Labs 09/24/231999 CALCIUM 10.2 MAGNESIUM 0.80 LFT's: Recent Labs 09/24/231999 BILITOT 0.6 BILIDIR 0.1 ALBUMIN 4.4 ALKPHOS 99 ALT 24 AST 27 Coags: No results for input(s): PT, INR, PTT, FIBRINOGEN, DDIMER in the last 168 hours. Invalid input(s): THROMBIN TIME Cardiac enzymes: No results for input(s): TROPONINT, CK in the last 7068 hours. Endocrine: No results for input(s): TSH, CORTISOL in the last 7068 hours. Invalid input(s): [id number] Heme: No results for input(s): LDH, HAPTOGLOBIN, URICACID in the last 168 hours. Diagnostic Studies: CXR: No acute findings ECG: Pending TTE: TTE 03/08/2022 Interpretation Summary Left ventricle is of normal [...] dimensionless index is 0.65. No significant regurgitation. ASSESSMENT: Gabi Waller 62 y.o. 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 The patient currently presents due to her symptomatic A-fib, and RVR. Though during her time in theER she was mostly rate controlled. She had previous episodes of paroxysmal A fib post surgery in 02/2022, but a zio patch at the time did not reveal A fib. She did have a history of SVT for which there was an unsuccessful trial at ablation. Will make her n.p.o., with plans for TON tomorrow and DC cardioversion. Will hold Eliquis, continueon heparin for now. Remaining plan as below A fib with RVR H/o paroxysmal A fib H/o SVT > Home meds: Eliquis 5 mg BID, metoprolol [id number] mg PLAN - Currently rate controlled. - Cont with metop tartrate 37.5 mg BID, PRN metop 5 mg IV pushes - Hold eliquis, cont on heparin ggt for now - NPO for TON and DCCV in morning. Severe s/p bp aortic valve replacement ASCVD non obstructive - Cont ASA, lipitor and Beta jessa. Septal thickening w/ JERRY s/p myectomy ->prior to surgery-- MG at rest: 5 mmHg; MG with Valsalva: 34 mmHg > MG during surgery was 7 mmHg; no gradient on TTE (02/2022) - continue metoprolol Insomnia - Cont trazodone 100 mg PRN HS MDD/peripheral neuropathy - cont wellbutrin 300 mg daily Routine: - DVT prophylaxis: heparin ggt - GI prophylaxis: none - Diet: NPO - Code Status: full code - Dispo:admit to inpatient cardiology service Claudine Fox MD PGY-2 Internal Medicine Inpatient cardiology Service Cardiology Staff Addendum Gabi Waller is a 62 y.o. female whom I saw today with Dr. Fox. Patient with history of post-op AF now admitted with rate controlled though symptomatic atrial fibrillation. For TON-DCCV. Linda Bailey MD, LYUBOV, FACC, FACP, FASE Cardiovascular Medicine documented in this encounter ED Notes * Yesi Byrd RN - 09/24/2023 10:55 PM EDT Pt reports feeling crappy, my breathing, the fluttering in my chest, I am dizzy and my stomach is just not good. Pts last BM was this morning normal for her, pt denies any vomiting. Pt reports today felt different, it was hard to catch a breath. * Vivian Campbell MD - 09/24/2023 10:30 PM EDT ED Resident Note HPI: Gabi Waller is a 62 y.o. female with hx of TAVR, a fib who presents to the Emergency Department with c/o fatigue, MIRANDA and lightheadedness. Patient reports she had a fib briefly after her TAVR 2 years ago. 2 weeks ago she developed palpitations and was seen at an OSH. Diagnosed with a fib again.. She was started on eliquis and had a zio placed. She reports persistent fatigue, worsening lightheadedness and MIRANDA. Denies chest pain. Deniesfever, cough, congestion, MONTANO, nausea, vomiting, abdominal pain, leg swelling. ROS as per HPI Vitals: ED Triage Vitals [09/24/230] BP: (!) 144/97 Pulse: n/a Resp: 20 Temp: 36.4 ??C (97.5 ??F) Temp src: n/a SpO2: 99 % O2 Device: RA O2 Flow Rate (L/min): n/a Physical Exam Gen: awake and alert, speaking in full sentences, well-developed and well-nourished HEENT: normocephalic, atraumatic; no scleral icterus, no conjunctival injection; normal nares; MMM Pulm: CTAB, no wheezes/rhonchi/rales Card: irregularly irregular, no LE edema, well perfused Abd: soft, nontender, no rebound or guarding Ext: moves all extremities equally, no appreciable joint swelling or deformity Neuro: aox3, no focal deficit, fluent speech Skin: no rashes or lesions noted on already exposed skin Psych: normal affect and behavior ED Course: I have reviewed labs and imaging, images and available reports, and they are significant for: ED Course as of 09/25/232043 Louisa Sep 25, 2023 0016 Paged cardiology 0113 WBC: 7.8 0113 Hemoglobin: 14.7 0113 Platelets: 302 0113 CBC (with Diff)(!) Unremarkable CBC 0113 Glucose Lvl: 92 0113 BUN: 11 0113 Creatinine: 0.71 0113 Sodium(!): 134 0113 Potassium: 4.2 0113 Chloride: 98 0113 CO2: 23 0113 Anion Gap: 13 0113 Calcium: 10.2 0113 Basic Metabolic Panel (non-fasting)(!) Slight hyponatremia otherwise normal 0113 ProBNP(!): 1,397 Mildly elevated 0113 AST: 27 0113 ALT: 24 0113 Alk Phos: 99 0113 Total Bilirubin: 0.6 0113 Bili, Direct: 0.1 0113 Hepatic Function Panel Normal LFTs 0113 Magnesium: 0.80 normal 0113 Troponin-T HS: 7 Delta 0, ACS ruled out 2043 EKG 12 Lead A fib with a ventricular rate in the 70s. Normal axis and intervals. No ST/TW changes concerning for ischemia. XR Chest PA & Lateral (Generic) Final Result No acute finding. Thank you for letting us participate in the care of this patient. If you are a health care provider and have any questions regarding this report, please contact the number below. For patients who have questions please contact the health daycare worker that requested your imaging first. Electronically signed by: Sabrina Sánchez MD, [facility] ([phone]), at 09/24/2023 11:06 PM Procedures Assessment and Plan: 62 y.o. female with hx of TAVR, a fib who presents to the Emergency Department with c/o fatigue, MIRANDA and lightheadedness. The patient was hemodynamically stable and vital signs were notable for tachycardia. Patient presented with symptoms consistent with symptomatic a fib. Considered ACS, EKG non-ischemic and troponin reassuring. Considered tachycardiomyopathy, BNP mildly elevated but no significant pulmonary or periph eral edema. Patient is anticoagulated and her lightheadednes/MIRANDA began after her anticoagulation - inconsistent with PE. No infectious symptoms. Cardiology was consulted. As she has not been anticoagulated for a sufficient period of time and is symptomatic she was admitted for TON and cardioversion. The visit findings, diagnosis, and care plan were discussed with the patient. Vivian Campbell MD Resident 09/25/232043 Associated attestation - Favio Topete MD - 09/26/2023 11:38 PM EDT ED ATTENDING ATTESTATION NOTE The patient was seen in conjunction with the resident physician. I have independently performed thekey portions of the history and physical exam. I have reviewed the diagnostic studies including labs, imaging studies and EKGs. I have discussed the details of the case with the resident and agree with the assessment and plan as described in the resident note unless noted below or in my separate note. * Clem Johnson PA - 09/24/2023 7:37 PM EDT Brief Provider Triage Note: 62 y.o. female presents to the emergency department with with lightheadedness. She states she went into a-fib about 2 weeks ago and was seen at an OSH for this, but today she started feeling significantly worse with lightheadedness, sweating, shortness of breath. Denies chest pain States she had a-fib in the past after her aortic valve was replaced. Preliminary testing was ordered. The patient is awaiting a bed in the Emergency Department. Clem Johnson PA 09/24/231940 documented in this encounter Miscellaneous Notes * Initial Assessments - Kalpesh Smith RN - 09/25/2023 2:15 PM EDT Office of Care Management Initial Assessment Medical record reviewed. Plan of care and patient status discussed with direct care Registered Nurse and/or Care Team in multidisciplinary rounds. Reason for Hospitalization: Heart problems and lightheadedness Per H&P: 62 y.o. 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 The patient currently presents due to her symptomatic A-fib, and RVR. Though during her time in theER she was mostly rate controlled. She had previous episodes of paroxysmal A fib post surgery in 02/2022, but a zio patch at the time did not reveal A fib. She did have a history of SVT for which there was an unsuccessful trial at ablation. Will make her n.p.o., with plans for TON tomorrow and DC cardioversion. Will hold Eliquis, continueon heparin for now. Last COVID test: Lab Results Component Value Date [id number] Not Detected 08/08/2020 Present on Admission: Atrial fibrillation 09/24: s/p Cardioversion Hospitalizations Within the Past 30 Days: The patient was recently admitted to [facility] 2 weeks ago due to feelings of dizziness and palpitations. Patient receiving hospital care under Inpatient status. Admission order reviewed. Health/Prescription Coverage: Primary Insurance: [employer] MEDICARE Payor: [employer] MEDICARE / Plan: [place] [employer] [facility] / Product Type: *No Product type* / Secondary Insurance: N/A ; Prescription Coverage: Yes Preferred Pharmacy: [facility] Home Delivery - [facility] [address] [facility] [address] [facility] [address] [address] - [place], [place] - [address] [facility] [address] [facility] [address] Advance Care Planning: Attempt Cardiopulmonary Resuscitation - Inpatient <no information> -Advanced Directive: Other (Sandoval Cheryl (Spouse)) Current Functional Ability: Independent Functional Status Prior to Admission: Independent Home Environment: Others in the home: spouse. Current Living Arrangements: home/apartment/condo. Accessibility Concerns:denies issues. Current DME: none [address] [place] [id number] Social & Family Supports: All names listed below confirmed with patient as current and correct Extended Emergency Contact Information Primary Emergency Contact: Sandoval Waller Address: [address] [address] [facility] Mobile Relation: Spouse Secondary Emergency Contact: [place] [address] [facility] Relation: Friend Current Care Provided by: self Transportation: no concerns Transportation Anticipated: family or friend will provide Assessment: Patient with no apparent RNCM/SW needs at this time. No housing, transportation, insurance, resources concerns identified at this time. Supports in place to achieve a safe post-hospital transition. No identified barriers to accessing necessary care and/or follow-up after discharge. Plan: Patient to d/c to home without services via car when medically ready. Registered Nurse Sugar Mill Worker / Roll Forming Machine Operator will continue to follow patient???s progress and remain available if situation changes for coordination of care, psychosocial support and/or discharge planning. Office of Care Management Kalpesh Smith RN RN/CM - Cellphone: [phone] Pager: [phone] Covering Service RN/CM * Plan of Care - Nabor Hammond RN - 09/25/2023 6:03 AM EDT SHIFT EVALUATION NOTE: SHIFT SUMMARY: Pt arrived to HVU in service technician. Pt AOx4. VSS on RA, assessment as charted. Pt denies CP or SOB.Afib on tele, see scanned documents. See flowsheets for I&O. Mag repleted (See EMAR). NPO for TON & cardioversion. PRN trazadone given (See EMAR). Heparin gtt started (EMAR). Uneventful shiftfor pt, call sun within reach. PLAN MOVING FORWARD: Continue to monitor per protocol Discharge planning as appropriate INDIVIDUALIZED FALL PREVENTION INTERVENTIONS: Patient-specific fall risk factors per assessment: [current deficits]: Limited mobility, tele wires, SpO2 monitor wire, unfamiliar environment Assistance [level of assistance required for transfers and ambulation]: Independent Supervision [direct monitoring required during toileting and ADLs]: Independent Surveillance [continuous indirect monitoring]: Telemetry, continuous pulse oximetry Patient-specific fall prevention interventions for sensory deficits provided, if applicable: Lighting adjusted for specific tasks/activities, purposeful rounding, able to make needs known, non skid socks, bed in lowest/locked position, personal items within reach, call sun within reach CARE PLAN GOAL OUTCOME EVALUATION: Problem: Adult Inpatient Plan of Care Goal: Plan of Care Review Outcome: Ongoing (Interventions Implemented as Appropriate) Goal: Patient-Specific Goal (Individualized) Outcome: Ongoing (Interventions Implemented as Appropriate) Goal: Absence of Hospital-Acquired Illness or Injury Outcome: Ongoing (Interventions Implemented as Appropriate) Goal: Optimal Comfort and Wellbeing Outcome: Ongoing (Interventions Implemented as Appropriate) Goal: Readiness for Transition of Care Outcome: Ongoing (Interventions Implemented as Appropriate) Problem: Dysrhythmia Goal: Normalized Cardiac Rhythm Outcome: Ongoing (Interventions Implemented as Appropriate) * ED Triage - Praveena Hopson RN - 09/24/2023 7:40 PM EDT Pt speaking in clear, logical, full sentences. Reports slight SOB with ambulation. Alert & oriented x4. HPI (Adult) Stated Reason for Visit: Pt had afib 2 weks ago (hx of open heart suregery), when in afib she has palpitations as is symptomatic but this afternoon she began feeling worse and is now also lightheaded, nauseous, and SOB. History Obtained From: patient documented in this encounter Plan of Treatment Upcoming Encounters Date Type Department Care Team (Latest Contact Info) Description 12/25/2023 9:[address] [place] [address] Xavier Malhotra MD [facility] [place] [address] 12/29/2023 Hospital Encounter Electrophysiology [place] [address] Xavier Malhotra MD [facility] [place] [address] Paroxysmal atrial fibrillation 12/29/2023 7:30 AM EDT - 12/29/2023 12:00 PM EDT Surgery Electrophysiology [place] [address] Xavier Malhotra MD [facility] [place] [address] ELECTROPHYSIOLOGY PROCEDURE 01/14/2024 10:40 AM EDT Office Visit Cardiology at [address] [phone] Carmen Castaneda PA [facility] [place] [address] Scheduled Procedures Name Priority Associated Diagnoses Date/Ti me TRANSESOPHAGEAL ECHO DURING CATH/EP PROCEDURE Paroxysmal atrial fibrillation 12/29/2023 7:30 AM EDT documented as of this encounter Goals Goal Patient Goal Type Associated Problems Recent Progress Patient-Stated? Author DH Home Medication Compliance and Understanding Patient Facing Action Plan Lani Love, [facility] Note: Maintain control of disease for as long as possible as assessed by tumor marker levels and scans in clinic every 3 to 6 months documented as of this encounter Procedures Procedure Name Priority Date/Time Associated Diagnosis Comments EKG 12-LEAD STAT 09/25/2023 2:08 PM EDT TON W LMTD SPECTRAL DOPPLER COLOR DOPPLER AND CARDIOVERSION Routine 09/25/2023 1:14 PM EDT Atrial fibrillation Cardioversion Elective Arrhythmia External ([id number]) 09/25/2023 11:14 AM EDT af TON complete wo contrast ([id number]) 09/25/2023 11:14 AM EDT af TRANSESOPHAGEAL ECHOCARDIOGRAM-OR Routine 09/25/2023 8:10 AM EDT CARDIOVERSION-OR Routine 09/25/2023 8:10 AM EDT ECHO COMPLETE Routine 09/25/2023 8:09 AM EDT Nonrheumatic aortic valve stenosis EKG 12-LEAD STAT 09/25/2023 3:08 AM EDT Atrial fibrillation HEMOGRAM Routine 09/25/2023 3:07 AM EDT GOLD TUBE HOLD Routine 09/25/2023 3:07 AM EDT BLUE TUBE HOLD Routine 09/25/2023 3:07 AM EDT MAGNESIUM Routine 09/25/2023 3:07 AM EDT COMPREHENSIVE METABOLIC PANEL Routine 09/25/2023 3:07 AM EDT HC TROPONIN T STAT 09/24/2023 10:56 PM EDT XR CHEST PA AND LATERAL STAT 09/24/19 10:55 PM EDT HC TROPONIN T STAT 09/24/2023 8:00 PM EDT HEMOGRAM STAT 09/24/2023 8:00 PM EDT DIFFERENTIAL, AUTOMATED STAT 09/24/19 8:00 PM EDT GOLD TUBE HOLD STAT 09/24/2023 8:00 PM EDT BLUE TUBE HOLD STAT 09/24/2023 8:00 PM EDT CBC (WITH DIFF) STAT 09/24/2023 8:00 PM EDT PRO-BRAIN NATRIURETIC PEPTIDE STAT 09/24/2023 8:00 PM EDT MAGNESIUM STAT 09/24/2023 8:00 PM EDT HEPATIC FUNCTION PANEL STAT 8:00 PM EDT BASIC METABOLIC PANEL STAT 09/24/2023 8:00 PM EDT documented in this encounter Results * EKG 12 Lead (09/25/2023 2:08 PM EDT) Ventricular rate 67 BPM MUSE SYSTEM Atrial Rate 67 BPM MUSE SYSTEM P-R Interval 140 ms MUSE SYSTEM QRS Duration 92 ms MUSE SYSTEM Q-T Interval 432 ms MUSE SYSTEM QTC Calculated (Bezet) 456 ms MUSE SYSTEM Calculated R Bagley -44 degrees MUSE SYSTEM Calculated T Bagley 9 degrees MUSE SYSTEM INTERPRETATION Normal sinus rhythm Left axis deviation Possible Anterior infarct (cited on or before 01-FEB-2022) Abnormal ECG When compared with ECG of 25-SEP-2023 03:08, Sinus rhythm has replaced Atrial fibrillation Questionable change in initial forces of Anteroseptal leads Nonspecific T wave abnormality, improved in Lateral leads Confirmed by MD JARED, DANIEL ([id number]) on 09/25/2023 10:17:38 PM MUSE SYSTEM 09/25/2023 2:08 PM EDT 09/25/2023 10:17 PM EDT Linda Bailey MD ECG ORDERABLES MUSE SYSTEM * TON W LMTD SPECTRAL DOPPLER COLOR DOPPLER AND CARDIOVERSION (09/25/2023 1:14 PM EDT) EF 56 HEARTLAB SYSTEM Anatomical Region Laterality Modality Cardiac Other 09/25/2023 11:2 1 AM EDT Narrative 09/25/2023 2:18 PM EDT ? Transesophageal Echocardiogram Report Name: GABI WALLER ?Study Date: 09/25/2023 11:21 AM ? Patient Location: [address] : 1960 ? Account: [id number] Age: 62 yrs Gender: Female Ordering Physician: AAKASH JOSEPH Performed By: Rosalva David Interpreting Fellow: Rosalva David. Exam Location: [facility]. Interpretation Summary TON performed to rule PALLAVI/LA [...] MD - 09/25/2023 Transesophageal Echocardiogram Report Name: GABI WALLER Study Date: :21 AM Patient Location: [address] : 1960 Account: [id number] Age: 62 yrs Gender: Female Ordering Physician: AAKASH JOSEPH Performed By: Rosalva David Interpreting Fellow: Rosalva David. Exam Location: [facility]. Interpretation Summary TON performed to rule PALLAVI/LA thrombus prior to DCCV: - There was no thrombus in the LA/PALLAVI. The left atrial emptying velocitybefore DCCV was normal. - After the LA/PALLAVI were cleared, the patient underwent cardioversion [id number] with successful conversion to normal sinus rhythm. [...] EDT Narrative 09/25/2023 12:00 PM EDT [address] [place] [address] ? Echocardiogram Report Name: GABI WALLER ?Study Date: 09/25/2023 06:57 AMBP: 102/75 mmHg ? Patient Location: [address] : 1960 ? Height: 165 cm ? Account: [id number] Age: 62 yrs ? Weight: 56 kg Gender: Female ?BSA: 1.6 m2 Ordering Physician: LINDA BAILEY Performed By: Shaylee Suazo RDCS Reason For Study: avr Exam Location: [facility]. Interpretation Summary -Left ventricle is of normal [...] has not been a significant change. Procedure Complete-[id number]. Satisfactory quality. Left Ventricle Left ventricle is [...] Note Mandeep Franco MD - 09/25/2023 [address] [place] [address] Echocardiogram Report Name: GABI WALLER Study Date: 406:57 AMBP: 102/75 mmHg Patient Location: [id number] : 1960 Height: 165 cm Account: [id number] Age: 62 yrs Weight: 56 kg Gender: Female BSA: 1.6 m2 Ordering Physician: LINDA BAILEY Performed By: Shaylee Suazo RDCS Reason For Study: avr Exam Location: [facility]. Interpretation Summary -Left ventricle is of normal [...] has not been a significant change. Procedure Complete-[id number]. Satisfactory quality. Left Ventricle Left ventricle is [...] normal. Ejection Fraction 2D Measurements Volumes EF ()_phl: 58.0 % IVSd: 0.98 cm LAV(MOD-bp)Indexed: LVIDd: [...] 15-16diffuse Linda Bailey MD ECHO ORDERABLES * EKG 12 Lead (09/25/2023 3:08 AM EDT) Ventricular rate 69 BPM MUSE SYSTEM QRS Duration 102 ms MUSE SYSTEM Q-T Interval 416 ms MUSE SYSTEM QTC Calculated (Bezet) 445 ms MUSE SYSTEM Calculated R Bagley -23 degrees MUSE SYSTEM Calculated T Bagley 81 degrees MUSE SYSTEM INTERPRETATION Atrial fibrillation Septal infarct (cited on or before 01-FEB-2022) Abnormal ECG When compared with ECG of 01-FEB-2022 04:30, Vent. rate has decreased BY ??58 BPM T wave inversion no longer evident in Lateral leads I personally reviewed the tracing and edited the fellows interpretation Confirmed by fellow MD Gregoria, Alf ([id number]) on 09/25/2023 10:12:30 AM Confirmed by MD JARED, DANIEL ([id number]) on 09/25/2023 9:12:17 PM MUSE SYSTEM 09/25/2023 3:08 AM EDT 09/25/2023 9:12 PM EDT Linda Bailey MD ECG ORDERABLES MUSE SYSTEM * Gold Tube HOLD (09/25/2023 3:07 AM EDT) Gold Hold Sample in lab. [facility] Blood Venous Draw / Unknown 09/25/2023 3:07 AM EDT 09/25/2023 3:[address] Wiliam Hidalgo MD CHEMISTRY ORDERABLES [facility] [place] [address] * Blue Tube HOLD (09/25/2023 3:07 AM EDT) [facility] Blue Hold Sample in lab. [facility] Blood Venous Draw / Unknown 09/25/2023 3:07 AM EDT 09/25/2023 3:[address] Wiliam Hidalgo MD HEMATOLOGY ORDERABLE S Performing Organization Address [facility] Co de Phone Number [facility] [place] [address] * (ABNORMAL) Comprehensive metabolic panel (non-fasting) (09/25/2023 3:07 AM EDT) [facility] Glucose 100 65 - 199 mg/dL [facility] Comment:Diabetes: >=200 mg/d L plus symptoms Blood Urea Nitrogen 8 8 - 18 mg/dL [facility] Creatinine 0.67(L) 0.70 - 1.20 mg/dL [facility] Sodium 138 135 - 145 mmol/L [facility] Potassium 3.9 3.5 - 5.0 mmol/L [facility] Comment: Please note: ??Patients with WBC >100,000 may have falsely elevated Potassium levels. ??For accurate Potassium quantification in these patients send serum separator tube (gold top) for subsequent determinations. ??Contact the Clinical Chemistry Laboratory if there are any questions. Chloride 105 98 - 107 mmol/L [facility] Carbon Dioxide 22 22 - 31 mmol/L [facility] Anion Gap 11 5 - 15 mmol/L [facility] Calcium 9.7 8.5 - 10.5 mg/dL [facility] Protein, Total 6.6 6.1 - 8.0 g/dL [facility] Albumin 4.1 3.2 - 5.2 g/dL [facility] Aspartate Aminotransferase 18 0 - 30 unit/L [facility] Alanine Aminotransferase 21 0 - 30 unit/L [facility] Alkaline Phosphatase 83 35 - 105 unit/L [facility] Bilirubin, Total 0.8 0.2 - 1.3 mg/dL [facility] Est Glomerular Filtration Rate 99 >=60 mL/min/1. 73 m?? [facility] Comment: This patient's estimated GFR [...] In Lab Linda Bailey MD CHEMISTRY ORDERABLES [facility] [place] [address] * (ABNORMAL) Hemogram (09/25/2023 3:07 AM EDT) White Blood Cell 6.2 4.0 - 9.5 x10(3)/mc L [facility] Red Blood Cell 4.23 4.00 - 5.21 x10(6)/mc L [facility] Hemoglobin 14.4 11.7 - 15.5 g/dL [facility] Hematocrit 40.9 35.7 - 45.8 % [facility] Mean Cell Volume 96.7(H) 82.6 - 94.[address] [facility] Mean Cell Hemoglobin 34.0(H) 27.1 - 32.[address] [facility] Mean Cell Hemoglobin Concentration 35.2(H) 31.7 - 35.0 g/dL [facility] Platelet 260 145 - 357 x10(3)/mc L [facility] RDW Standard Deviation 40.9 37.0 - 46.[address] [facility] RDW coefficient of variation 11.5 11.5 - 14.1 % [facility] Mean Platelet Volume 8.7 7.6 - 12.[address] [facility] NRBC% auto 0.0 % [facility] NRBC Absolute 0.000 0.000 - 0.000 x10(3)/mc L [facility] Blood 09/25/2023 3:07 AM EDT 09/25/2023 3:17 AM EDT Narrative Resulting Agency Comment Spec In Lab Linda Bailey MD HEMATOLOGY ORDERABLE S [facility] [place] [address] * Magnesium (09/25/2023 3:07 AM EDT) Pathologist [facility] Magnesium 0.84 0.69 - 1.07 mmol/L [facility] Blood 09/25/2023 3:07 AM EDT 09/25/2023 3:17 AM EDT Narrative Resulting Agency Comment Spec In Lab Linda Bailey MD CHEMISTRY ORDERABLES [facility] [place] [address] * Troponin (09/24/2023 10:56 PM EDT) [facility] [place] Troponin-T, High Sensitivity 7 <=14 ng/L [facility] Comment: This patient's troponin T [...] troponin value can be found in the [facility] Test Catalog Troponin - [facility] Test Catalog Reference: Fourth [place] Definition of Myocardial Infarction. Journal of the [place] [employer] 2018;72:6085-3896 Blood 09/24/2023 10:5 6 PM EDT 09/24/2023 11:02 PM EDT Narrative Resulting Agency Comment Spec In Lab Nick Nichols MD CHEMISTRY ORDERABLE S Performing Organization Address City/State/[facility] Co de Phone Number [facility] [place] [address] * XR Chest PA & Lateral (Generic) (09/24/2023 10:55 PM EDT) WORKSTATION ID [id number] RAD Anatomical Region Laterality Modality Chest N/A Digital Radiogra phy Impressions 09/24/2023 11:06 PM EDT No acute finding. Thank you for letting us participate in the care of this patient. ??If you are a health care provider and have any questions regarding this report, please contact the number below. ??For patients who have questions please contact the health daycare worker that requested your imaging first. ? Electronically signed by: Sabrina Sánchez MD, [facility] ([phone]), at 09/24/2023 11:06 PM Narrative 09/24/2023 11:06 PM EDT EXAMINATION: XR [...] patients who have questions please contactthe health daycare worker that requested your imaging first. Electronically signed by: Sabrina Sánchez MD, [facility]([phone]), at 09/24/2023 11:06 PM Favio Topete MD IMG DX ORDERABLES * (ABNORMAL) pro-Brain Natriuretic Peptide (09/24/2023 8:00 PM EDT) NT-proBNP 1,397(H) <=124 pg/mL [facility] Blood Venous Draw / Unknown 09/24/2023 8:00 PM EDT 09/24/2023 8:13 PM EDT Narrative Resulting Agency Comment Spec In Lab Vivian Campbell MD CHEMISTRY ORDERABLES Performing Organization Address City/[facility]/ZIP Co de Phone Number [facility] [place] [address] * Magnesium (09/24/2023 8:00 PM EDT) Magnesium 0.80 0.69 - 1.07 mmol/L [facility] Blood Venous Draw / Unknown 09/24/2023 8:00 PM EDT 09/24/2023 8:13 PM EDT Narrative Resulting Agency Comment Spec In Lab Vivian Campbell MD CHEMISTRY ORDERABLES Performing Organization Address [facility] Co de Phone Number [facility] [place] [address] * Hepatic Function Panel (09/24/2023 8:00 PM EDT) Protein, Total 7.1 6.1 - 8.0 g/dL [facility] Albumin 4.4 3.2 - 5.2 g/dL [facility] Aspartate Aminotransferase 27 0 - 30 unit/L [facility] Alanine Aminotransferase 24 0 - 30 unit/L [facility] Alkaline Phosphatase 99 35 - 105 unit/L [facility] Bilirubin, Total 0.6 0.2 - 1.3 mg/dL [facility] Bilirubin, Direct 0.1 0.0 - 0.3 mg/dL [facility] Blood Venous Draw / Unknown 09/24/2023 8:00 PM EDT 09/24/2023 8:13 PM EDT Narrative Resulting Agency Comment Spec In Lab Vivian Campbell MD CHEMISTRY ORDERABLES [facility] [place] [address] * Differential, Automated (09/24/2023 8:00 PM EDT) Pathologist [facility] Neutrophil % 51.3 % [facility] Neutrophil Absolute 3.99 1.70 - 6.10 x10(3)/[facility] Lymph % 34.7 % [facility] Lymphocytes Abs 2.7 0.9 - 3.2 x10(3)/[facility] Monocyte % 8.9 % [facility] Monocyte Abs 0.7 0.3 - 0.9 x10(3)/[facility] Eos % 3.3 % [facility] Eosinophils Abs 0.3 0.0 - 0.4 x10(3)/[facility] Basophil % 1.3 % [facility] Baso Absolute 0.1 0.0 - 0.1 x10(3)/[facility] Immature Gran % 0.50 % [facility] Comment: Immature granulocytes(IG's)percentage and absolute count will include metamyelocytes, myelocytes, and promyelocytes. Blood smears from CBCs yielding IG's will be scanned manually for concordance. If this scan disagrees with the automated IG or if promyelocytes are noted, a manual differential will be performed. Immature Gran Absolute 0.04 0.00 - 0.04 x10(3)/[facility] Blood 09/24/2023 8:00 PM EDT 09/24/2023 8:27 PM EDT Narrative Resulting Agency Comment Spec In Lab Clem SEARS HEMATOLOGY ORDERABLE S Performing Organization Address City/[facility]/ZIP Co de Phone Number [facility] [place] [address] * (ABNORMAL) Hemogram (09/24/2023 8:00 PM EDT) [facility] White Blood Cell 7.8 4.0 - 9.5 x10(3)/[facility] Red Blood Cell 4.27 4.00 - 5.21 x10(6)/[facility] Hemoglobin 14.7 11.7 - 15.5 g/dL [facility] Hematocrit 41.5 35.7 - 45.8 % [facility] Mean Cell Volume 97.2(H) 82.6 - 94.[address] [facility] Mean Cell Hemoglobin 34.4(H) 27.1 - 32.[address] [facility] Mean Cell Hemoglobin Concentration 35.4(H) 31.7 - 35.0 g/dL [facility] Platelet 302 145 - 357 x10(3)/[facility] RDW Standard Deviation 41.6 37.0 - 46.[address] [facility] RDW coefficient of variation 11.6 11.5 - 14.1 % [facility] Mean Platelet Volume 8.8 7.6 - 12.[address] [facility] NRBC% auto 0.0 % [facility] NRBC Absolute 0.000 0.000 - 0.000 x10(3)/[facility] Blood 09/24/2023 8:00 PM EDT 09/24/2023 8:27 PM EDT Narrative Resulting Agency Comment Spec In Lab Clem SEARS HEMATOLOGY ORDERABLE S [facility] [place] [address] * Gold Tube HOLD (09/24/2023 8:00 PM EDT) Gold Hold Sample in lab. [facility] Blood Venous Draw / Unknown 09/24/2023 8:00 PM EDT 09/24/2023 8:12 PM EDT Clem SEARS CHEMISTRY ORDERABLES Performing Organization Address City/[facility]/ZIP Co de Phone Number [facility] [place] [address] * Blue Tube HOLD (09/24/2023 8:00 PM EDT) Blue Hold Sample in lab. [facility] Blood Venous Draw / Unknown 09/24/2023 8:00 PM EDT 09/24/2023 8:11 PM EDT Clem SEARS HEMATOLOGY ORDERABLE S Performing Organization Address [facility] Co de Phone Number [facility] [place] [address] * Troponin (09/24/2023 8:00 PM EDT) Pathologist [facility] Troponin-T, High Sensitivity 7 <=14 ng/L [facility] Comment: This patient's troponin T [...] troponin value can be found in the [facility] Test Catalog Troponin - [facility] Test Catalog Reference: Fourth [place] Definition of Myocardial Infarction. Journal of the [place] [employer] 2018;72:8664-4074 Blood 09/24/2023 8:00 PM EDT 09/24/2023 8:10 PM EDT Narrative Resulting Agency Comment Spec In Lab Nick Nichols MD CHEMISTRY ORDERABLE S [facility] [place] [address] * (ABNORMAL) Basic Metabolic Panel (non-fasting) (09/24/2023 8:00 PM EDT) Glucose 92 65 - 199 mg/dL [facility] Comment:Diabetes: >=200 mg/d L plus symptoms Blood Urea Nitrogen 11 8 - 18 mg/dL [facility] Creatinine 0.71 0.70 - 1.20 mg/dL [facility] Sodium 134(L) 135 - 145 mmol/L [facility] Potassium 4.2 3.5 - 5.0 mmol/L [facility] Comment: Please note: ??Patients with WBC >100,000 may have falsely elevated Potassium levels. ??For accurate Potassium quantification in these patients send serum separator tube (gold top) for subsequent determinations. ??Contact the Clinical Chemistry Laboratory if there are any questions. Chloride 98 98 - 107 mmol/L [facility] Carbon Dioxide 23 22 - 31 mmol/L [facility] Anion Gap 13 5 - 15 mmol/L [facility] Calcium 10.2 8.5 - 10.5 mg/dL [facility] Est Glomerular Filtration Rate 96 >=60 mL/min/1. 73 m?? [facility] Comment: This patient's estimated GFR [...] and symptoms in addition to eGFR. Blood 09/24/2023 8:00 PM EDT 09/24/2023 8:10 PM EDT Narrative Resulting Agency Comment Spec In Lab Nick Nichols MD CHEMISTRY ORDERABLE S [facility] [place] [address] documented in this encounter Visit Diagnoses Not on filedocumented in this encounter Admitting Diagnoses Diagnosis Atrial fibrillation documented in this encounter Administered Medications Inactive Administered Medications - up to 3 most recent administrations Medication Order MAR Action Action Date Dose Rate Site apixaban (Eliquis) tablet 5 mg 5 mg, Oral, 2 TIMES DAILY, First dose on Louisa 09/25/23 at 1500, Until Discontinued, Anticoagulant, Routine, apixaban (Eliquis) Indication: Non-Valvular Atrial Fibrillation Given 09/25/2023 2:24 PM EDT 5 mg aspirin EC tablet 81 mg 81 mg, Oral, DAILY, First dose on Louisa 09/25/23 at 0900, Until Discontinued, Routine Given 09/25/2023 9:13 AM EDT 81 mg atorvastatin (Lipitor) tablet 10 mg 10 mg, Oral, DAILY, First dose on Louisa 09/25/23 at 0900, Until Discontinued, Routine Given 09/25/2023 9:13 AM EDT 10 mg buPROPion XL (Wellbutrin XL) tablet 300 mg 300 mg, Oral, DAILY, First dose on Louisa 09/25/23 at 0900, Until Discontinued, DO NOT CRUSH OR OPEN, Routine Given 09/25/2023 9:13 AM EDT 300 mg cholecalciferoL (Vitamin D3) tablet 2,000 Units 2,000 Units, Oral, DAILY, First dose on Louisa 09/25/23 at 0900, Until Discontinued Given 09/25/2023 9:13 AM EDT 2,000 Units heparin (porcine) 50 units/mL in dextrose 5% 500 mL infusion 0-5,000 Units/hr (0-100 mL/hr), Intravenous, CONTINUOUS, Starting on Louisa 09/25/23 at 0615, Until Louisa 09/25/23 at 1350, Begin infusion at 850 units per hr (15 units/kg/hr). Maximum initial infusion rate is 2,000 units/hr Infusion doses are rounded to the nearest 50 units. Target Heparin UFH Level (anti-Xa activity) = 0.3 - 0.7 international unit/mL Start adjustment schedule 6 hours after starting infusion. If Heparin UFH Level is: -?Less than 0.1 international unit/mL:?Administer PRN bolus and increase rate by 200 units per hr (4 units/kg/hr) -?0.1 - 0.19 international unit/mL:? Administer PRN bolus and increase rate by 100 units per hr (2 units/kg/hr) -?0.2 - 0.29 international unit/mL:?NO BOLUS and increase rate by 100 units per hr (2 units/kg/hr) -?0.3 - 0.7 international unit/mL:?No change -?0.71 - 0.79 international unit/mL:?NO BOLUS and decrease rate by 50 units per hr (1 units/kg/hr) -?0.8 - 0.99 international unit/mL:?NO BOLUS and decrease rate by 100 units per hr (2 units/kg/hr) -?Greater than or equal to 1.00 international unit/mL:?Hold infusion for 60 minutes then decrease rate by 150 units per hour (3 units/kg/hr) Obtain Heparin UFH Level 6 hours after initiating heparin. Then 6 hours after each dose adjustment. When 2 consecutive Heparin UFH Level within target range of 0.3 - 0.7 international unit/mL, change Heparin UFH Level to once every 24 hours with A.M. labs while on heparin. RN to order required Heparin UFH Level - Per Protocol, Routine Rate/Dose Change 09/25/2023 11:22 AM EDT 850 Units/hr 17 mL/hr New Bag 09/25/2023 6:30 AM EDT 850 Units/hr 17 mL/hr lidocaine (Xylocaine) 5 % ointment PRN, Starting on Louisa 09/25/23 at 1121, Until Louisa 09/25/23 at 1833, Intra-Operative (Intra-Procedure) Given 09/25/2023 11:21 AM EDT 1 inch magnesium sulfate 2 g in sterile water 50 mL infusion 2 g, Intravenous, ONCE, 1 dose, On Louisa 09/25/23 at 0223, Administer over 120 Minutes New Bag 09/25/2023 3:10 AM EDT 2 g 25 mL/hr metoprolol (LOPRESSOR) injection 5 mg 5 mg, Intravenous, EVERY 5 MIN PRN, Starting on Louisa 09/25/23 at 0526, Until Louisa 09/25/23 at 1833, Elevated Heart Rate, HR > 130 metoprolol tartrate (Lopressor) tablet 37.5 mg 37.5 mg, Oral, EVERY 12 HOURS SCHEDULED (2 times per day), First dose on Louisa 09/25/23 at 0615, Until Discontinued, Routine Given 09/25/2023 6:30 AM EDT 37.5 mg traZODone (Desyrel) tablet 100 mg 100 mg, Oral, NIGHTLY PRN, Starting on Louisa 09/25/23 at 0145, Until Louisa 09/25/23 at 1833, Sleep, Routine Given 09/25/2023 4:04 AM EDT 100 mg documented in this encounter Active and Recently Administered Medications Times are shown in EDT. Scheduled Medication Order 09/23/2023 09/24/2023 09/25/2023 apixaban (Eliquis) tablet 5 mg 5 mg, Oral, 2 TIMES DAILY, First dose on Louisa 09/25/23 at 1500, Until Discontinued, Anticoagulant, Routine, apixaban (Eliquis) Indication: Non-Valvular Atrial Fibrillation 1424 (Given - Provid er: Love Gutierres RN) aspirin EC tablet 81 mg 81 mg, Oral, DAILY, First dose on Louisa 09/25/23 at 0900, Until Discontinued, Routine 09 (Given - Provid er: Love Gutierres RN)1115 (JUN Hold - Provider: Admin Adt - Reason: Transfer to a Procedural area)1312 (JUN Unhold - Provider: Admin Adt) atorvastatin (Lipitor) tablet 10 mg 10 mg, Oral, DAILY, First dose on Louisa 24 at 0900, Until Discontinued, Routine 0913 (Given - Provid er: Love Gutierres RN)1115 (JUN Hold - Provider: Admin Adt - Reason: Transfer to a Procedural area)131 ([facility] Unhold - Provider: Admin Adt) buPROPion XL (Wellbutrin XL) tablet 300 mg 300 mg, Oral, DAILY, First dose on Louisa 09/25/23 at 0900, Until Discontinued, DO NOT CRUSH OR OPEN, Routine 0913 (Given - Provid er: Love Gutierres RN)1115 ([facility] Hold - Provider: Admin Adt - Reason: Transfer to a Procedural area)131 ([facility] Unhold - Provider: Admin Adt) cholecalciferoL (Vitamin D3) tablet 2,000 Units 2,000 Units, Oral, DAILY, First dose on Louisa 09/25/23 at 0900, Until Discontinued 09 (Given - Provid er: Love Gutierres RN)111 ([facility] Hold - Provider: Admin Adt - Reason: Transfer to a Procedural area)131 ([facility] Unhold - Provider: Admin Adt) magnesium sulfate 2 g in sterile water 50 mL infusion (COMPLETED) 2 g, Intravenous, ONCE, 1 dose, On Louisa 09/25/23 at 0223, Administer over 120 Minutes 0310 (New Bag - Prov ider: Dali Gonzalez RN)0510 (Stopped - Provider: Nabor Hammond RN) metoprolol tartrate (Lopressor) tablet 37.5 mg 37.5 mg, Oral, EVERY 12 HOURS SCHEDULED (2 times per day), First dose on Louisa 09/25/23 at 0615, Until Discontinued, Routine 0630 (Given - Provid er: Nabor Hammond RN)111 ([facility] Hold - Provider: Admin Adt - Reason: Transfer to a Procedural area)131 ([facility] Unhold - Provider: Admin Adt) sodium chloride 0.9 % (flush) (BD PosiFlush Normal Saline 0.9) flush 5 mL 5 mL, Intravenous, 2 TIMES DAILY, First dose on Louisa 09/25/23 at 0146, Until Discontinued, Routine 0146 (Not Given - Pr ovider: Dali Gonzalez RN - Reason: See comment - Comment: not needed, line in use)0900 (Not Given - Provider: Love Gutierres RN - Reason: See comment - Comment: infusing)1115 (MAR Hold - Provider: Admin Adt - Reason: Transfer to a Procedural area)1312 (MAR Unhold - Provider: Admin Adt) Continuous Medication Order 09/23/2023 09/24/2023 09/25/2023 heparin (porcine) 50 units/mL in dextrose 5% 500 mL infusion (CANCELED)(Linked Group 1) 0-5,000 Units/hr (0-100 mL/hr), Intravenous, CONTINUOUS, Starting on Louisa 09/25/23 at 0615, Until Louisa 09/25/23 at 1350, Begin infusion at 850 units per hr (15 units/kg/hr). Maximum initial infusion rate is 2,000 units/hr Infusion doses are rounded to the nearest 50 units. Target Heparin UFH Level (anti-Xa activity) = 0.3 - 0.7 international unit/mL Start adjustment schedule 6 hours after starting infusion. If Heparin UFH Level is: -?Less than 0.1 international unit/mL:?Administer PRN bolus and increase rate by 200 units per hr (4 units/kg/hr) -?0.1 - 0.19 international unit/mL:? Administer PRN bolus and increase rate by 100 units per hr (2 units/kg/hr) -?0.2 - 0.29 international unit/mL:?NO BOLUS and increase rate by 100 units per hr (2 units/kg/hr) -?0.3 - 0.7 international unit/mL:?No change -?0.71 - 0.79 international unit/mL:?NO BOLUS and decrease rate by 50 units per hr (1 units/kg/hr) -?0.8 - 0.99 international unit/mL:?NO BOLUS and decrease rate by 100 units per hr (2 units/kg/hr) -?Greater than or equal to 1.00 international unit/mL:?Hold infusion for 60 minutes then decrease rate by 150 units per hour (3 units/kg/hr) Obtain Heparin UFH Level 6 hours after initiating heparin. Then 6 hours after each dose adjustment. When 2 consecutive Heparin UFH Level within target range of 0.3 - 0.7 international unit/mL, change Heparin UFH Level to once every 24 hours with A.M. labs while on heparin. RN to order required Heparin UFH Level - Per Protocol, Routine 0630 (New Bag - Prov ider: Nabor Hammond RN)1115 ([facility] Hold - Provider: Admin Adt - Reason: Transfer to a Procedural area)1122 (Rate/Dose Change - Provider: Germiane Capellan CRNA - Comment: Continued from floor; verified with cardiology)1312 ([facility] Unhold - Provider: Admin Adt) PRN Medication Order 09/23/2023 09/24/2023 09/25/2023 lidocaine (Xylocaine) 1% (10 mg/mL) injection 3 mg 3 mg (0.3 mL), Subcutaneous, ONCE PRN, 1 dose, Starting on Louisa 624 at 0145, Until Louisa 624 at 1833, for discomfort with PIV insertion, Routine 1115 (JUN Hold - Pro vider: Admin Adt - Reason: Transfer to a Procedural area)1312 ([facility] Unhold - Provider: Admin Adt) lidocaine (Xylocaine) 5 % ointment (CANCELED) PRN, Starting on Louisa 09/25/23 at 1121, Until Louisa 6//24 at 1833, Intra-Operative (Intra-Procedure) 1121 (Given - Provid er: Jil Moraes RN) metoprolol (LOPRESSOR) injection 5 mg 5 mg, Intravenous, EVERY 5 MIN PRN, Starting on Louisa 24 at 0526, Until Louisa 624 at 1833, Elevated Heart Rate, HR > 130 1115 (JUN Hold - Pro vider: Admin Adt - Reason: Transfer to a Procedural area)1312 ([facility] Unhold - Provider: Admin Adt) nitroGLYcerin (Nitrostat) disintegrating tablet 0.4 mg 0.4 mg, Sublingual, EVERY 5 MIN PRN, Starting on Louisa 624 at 0145, Until Louisa 624 at 1833, Chest pain, May repeat every 5 minutes for a total of three doses. Notify provider if chest pain not relieved with nitroglycerin. Do not administer nitroglycerin if the patient has received or taken phosphodiesterase (PDE-5) inhibitors such as sildenafil, tadalafil or vardenafil within the last 24 to 72 hours., Routine 1115 (JUN Hold - Pro vider: Admin Adt - Reason: Transfer to a Procedural area)1312 ([facility] Unhold - Provider: Admin Adt) sodium chloride 0.9 % (flush) (BD PosiFlush Normal Saline 0.9) flush 5-20 mL 5-20 mL, Intravenous, EVERY 1 MIN PRN, Starting on Louisa 6/6/24 at 0145, Until Louisa 6/6/24 at 1833, flush, Flush pertains to all indwelling lines. Flush per protocol found in the job aid using the link provided on this medication record., Routine 1115 (JUN Hold - Pro vider: Admin Adt - Reason: Transfer to a Procedural area)1312 ([facility] Unhold - Provider: Admin Adt) traZODone (Desyrel) tablet 100 mg 100 mg, Oral, NIGHTLY PRN, Starting on Louisa 6/6/24 at 0145, Until Louisa 6/6/24 at 1833, Sleep, Routine 0404 (Given - Provid er: Nabor Hammond RN)1115 ([facility] Hold - Provider: Admin Adt - Reason: Transfer to a Procedural area)1312 ([facility] Unhold - Provider: Admin Adt) Linked Groups Order Group 1: heparin (porcine) 50 units/mL in dextrose 5% 500 mL infusion (CANCELED)Jump to med 0-5,000 Units/hr (0-100 mL/hr), Intravenous, CONTINUOUS, Starting on Louisa 6/6/24 at 0615, Until Louisa 6/6/24 at 1350, Begin infusion at 850 units per hr (15 units/kg/hr). Maximum initial infusion rate is 2,000 units/hr Infusion doses are rounded to the nearest 50 units. Target Heparin UFH Level (anti-Xa activity) = 0.3 - 0.7 international unit/mL Start adjustment schedule 6 hours after starting infusion. If Heparin UFH Level is: -?Less than 0.1 international unit/mL:?Administer PRN bolus and increase rate by 200 units per hr (4 units/kg/hr) -?0.1 - 0.19 international unit/mL:? Administer PRN bolus and increase rate by 100 units per hr (2 units/kg/hr) -?0.2 - 0.29 international unit/mL:?NO BOLUS and increase rate by 100 units per hr (2 units/kg/hr) -?0.3 - 0.7 international unit/mL:?No change -?0.71 - 0.79 international unit/mL:?NO BOLUS and decrease rate by 50 units per hr (1 units/kg/hr) -?0.8 - 0.99 international unit/mL:?NO BOLUS and decrease rate by 100 units per hr (2 units/kg/hr) -?Greater than or equal to 1.00 international unit/mL:?Hold infusion for 60 minutes then decrease rate by 150 units per hour (3 units/kg/hr) Obtain Heparin UFH Level 6 hours after initiating heparin. Then 6 hours after each dose adjustment. When 2 consecutive Heparin UFH Level within target range of 0.3 - 0.7 international unit/mL, change Heparin UFH Level to once every 24 hours with A.M. labs while on heparin. RN to order required Heparin UFH Level - Per Protocol, Routine And heparin (porcine) (1,000 units/mL) injection 0-8,000 Units (CANCELED) 0-8,000 Units, Intravenous, BOLUS PER HEPARIN PROTOCOL, Starting on Louisa 6/24 at 0518, Until Louisa 6/24 at 1350, Per Protocol, START ADJUSTMENT SCHEDULE 6 HOURS AFTER STARTING INFUSION Bolus doses are rounded to the nearest 100 units. If Heparin UFH Level is: - Less than 0.1 international unit/mL: Bolus 70 units/kg (Maximum of 8,000 units) = Bolus 3,900 units - 0.1 - 0.19 International unit/mL: Bolus 35 units/kg (Maximum of 4,000 units) = Bolus 2,000 units - Equal to or greater than 0.2 international unit/mL: No Bolus, Routine documented in this encounter Care Teams Printing Assistant Relationship Specialty Start Date End Date Evelyne Hunt APRN [id number] [place] [address] PCP - General Internal Medicine 09/23/17 documented as of this encounter
--- OUTSIDE RECORDS SUMMARY | 2023-12-01 02:09 | XMS_ITS | Encounter Summary ---
Author Organization [facility] [place] [address] Care Team Providers Care International Sourcing Manager Name Role Phone Evelyne Hunt Dat STEVEN Primary Care Provider [phone] Encounter Details Date Type Department Care Team (Late st Contact Info) Description 04/18/2023 Orders Only [place] [address] Sayda Doan RN Ovarian cancer, unspecified laterality Social History Tobacco [...] 9:[address] [place] [address] Xavier Malhotra MD [facility] [place] [address] 12/29/2023 Hospital Encounter [place] [address] Xavier Malhotra MD [facility] [place] [address] Paroxysmal atrial fibrillation 12/29/2023 7:30 AM EDT - 12/29/2023 12:00 PM EDT Surgery [place] [phone] Xavier Malhotra MD [facility] [place] [address] ELECTROPHYSIOLOGY PROCEDURE 01/14/2024 10:40 AM EDT Office Visit Cardiology at [address] [phone] Carmen Castaneda PA [facility] [place] [address] Scheduled Orders Name Type Priority Associated Diagnoses Orde r Schedule Cancer Antigen 125 Lab Routine Ovarian cancer, unspecified laterality Every 3 months for 4 Occurrences starting 04/18/2023 until 04/18/2024, 2 completed Scheduled Procedures Name Priority Associated Diagnoses Date/Ti me TRANSESOPHAGEAL ECHO DURING CATH/EP PROCEDURE Paroxysmal atrial fibrillation 12/29/2023 7:30 AM EDT documented as of this encounter Goals Goal Patient Goal Type Associated Problems Recent Progress Patient-Stated? Author DH Home Medication Compliance and Understanding Patient Facing Action Plan Lani Love, [facility] Note: Maintain control of disease for as long as possible as assessed by tumor marker levels and scans in clinic every 3 to 6 months documented as of this encounter Results * Cancer Antigen 125 (11/04/2023 9:44 AM EDT) CA 125 9.9 <=38.1 unit/mL [facility] Comment: CA 125 Reference Interval [...] Laird MD CHEMISTRY ORDERABLES Performing Organization Address [facility] Co de Phone Number [facility] [place] [address] * Cancer Antigen 125 (05/05/2023 11:20 AM EST) CA 125 11.1 <=38.1 unit/mL [facility] Comment: CA 125 Reference Interval ??Postmenopausal: 6.2 to 31.5 U/mL. ??Premenopausal: 6.9 to 45.9 U/mL. ??Pre and Postmenopausal subjects combined: 6.4 to 38.1 U/mL. This result was generated using a Elo Elizabeth immunoassay. ??Results obtained from other methods or manufacturers cannot be used interchangeably with this method. Blood 05/05/2023 11:2 0 AM EST 05/05/2023 11:28 AM EST Narrative Resulting Agency Comment Spec In Lab Iram Laird MD CHEMISTRY ORDERABLES Performing Organization Address City/[facility]/ZIP Co de Phone Number [facility] [place] [address] documented in this encounter Visit Diagnoses Diagnosis Ovarian cancer, unspecified laterality Paroxysmal atrial fibrillation Atrial fibrillation Paroxysmal atrial fibrillation Atrial fibrillation documented in this encounter Care Teams International Sourcing Manager Relationship Specialty Start Date End Date Evelyne Hunt APRN [address] [place] [address] PCP - General Internal Medicine 09/23/17 documented as of this encounter
--- OUTSIDE RECORDS SUMMARY | 2023-12-01 02:09 | XMS_ITS | Encounter Summary ---
Author Organization [facility] [place] [address] Care Team Providers Care Typing Teacher Name Role Phone Evelyne Hunt Dat STEVEN Primary Care Provider [phone] Encounter Details Date Type Department Care Team (Late st Contact Info) Description 10/14/2022 Telephone [place] [address] Yulisa Alves Social History Tobacco Use Types Packs/Day Years [...] encounter Miscellaneous Notes * Telephone Encounter - Yulisa Alves - 10/14/2022 2:12 PM EDT Left message to schedule follow up (around ) with Dr. Laird. documented in this encounter Plan of Treatment Upcoming Encounters Date Type Department Care Team (Latest Contact Info) Description 12/25/2023 9:[address] [place] [phone] Xavier Malhotra MD [facility] [place] [place] [address] 12/29/2023 Hospital Encounter [place] [phone] Xavier Malhotra MD [facility] [place] [address] Paroxysmal atrial fibrillation 12/29/2023 7:30 AM EDT - 12/29/2023 12:00 PM EDT Surgery [place] [phone] Xavier Malhotra MD [facility] [place] [address] ELECTROPHYSIOLOGY PROCEDURE 01/14/2024 10:40 AM EDT Office Visit Cardiology at [address] [phone] Carmen Castaneda PA [facility] [place] [address] Scheduled Procedures Name Priority Associated Diagnoses Date/Ti me TRANSESOPHAGEAL ECHO DURING CATH/EP PROCEDURE Paroxysmal atrial fibrillation 12/29/2023 7:30 AM EDT documented as of this encounter Goals Goal Patient Goal Type Associated Problems Recent Progress Patient-Stated? Author DH Home Medication Compliance and Understanding Patient Facing Action Plan No Lani Vargas, [facility] Note: Maintain control of disease for as long as possible as assessed by tumor marker levels and scans in clinic every 3 to 6 months documented as of this encounter Visit Diagnoses Not on filedocumented in this encounter Care Teams Typing Teacher Relationship Specialty Start Date End Date Evelyne Hunt APRN [address] [place] [address] PCP - General Internal Medicine 09/23/17 documented as of this encounter
--- OUTSIDE RECORDS SUMMARY | 2023-12-01 02:09 | XMS_ITS | Encounter Summary ---
Author Organization [facility] [place] [address] Care Team Providers Care Firestopper Installer Name Role Phone Evelyne Hunt APRN Primary Care Provider [phone] Encounter Details Date Type Department Care Team (Latest Contact Info) Description 01/06/2023 7:08 AM EDT - 01/06/2023 11:59 PM EDT Hospital Encounter [place] [address] History of ovarian cancer Discharge Disposition: Home Social History Tobacco Use [...] Sig Dispensed Refills Start Date End Date aspirin EC 81 mg EC (DR) tablet daily. 02/22/2022 clobetasoL (Temovate) 0.05 % OintmentIndications:Tri garcia sclerosus et atrophicus Apply topically daily. 30 [...] hr TK 1 T PO QAM 10/01/2019 dilTIAZem (Tiazac) 240 mg ER 24 hr capsule Take 1 capsule by mouth daily. 02/13/2023 metoproloL tartrate (Lopressor) 25 mg tablet Take 25 mg by mouth 2 times daily. 05/07/2022 02/13/2023 metoprolol succinate XL (Toprol-XL) 50 mg Tablet Sustained Release 24 hr Take 1 tablet by mouth daily. 90 tablet 3 05/07/2022 05/05/2023 clindamycin (CLEOCIN) 300 mg Capsule Take 2 capsules by mouth as needed (dental procedures). Take 1 hour prior to dental procedures 2 capsule 02/06/2022 02/13/2023 documented as of this encounter Plan of Treatment Upcoming Encounters Date Type Department Care Team (Latest Contact Info) Description 12/25/2023 9:[address] [place] [place] [address] Xavier Malhotra MD [facility] [place] [place] [address] 12/29/2023 Hospital Encounter [place] [phone] Xavier Malhotra MD [facility] [place] [place] [address] Paroxysmal atrial fibrillation 12/29/2023 7:30 AM EDT - 12/29/2023 12:00 PM EDT Surgery [place] [phone] Xavier Malhotra MD [facility] [place] [address] ELECTROPHYSIOLOGY PROCEDURE 01/14/2024 10:40 AM EDT Office Visit Cardiology at [address] [phone] Carmen Castaneda PA [facility] CARDIOLOGY [place] [id number] Scheduled Procedures Name Priority Associated Diagnoses Date/Ti [...] Associated Diagnosis Comments CANCER ANTIGEN 125 Routine 01/06/2023 7: 31 AM EDT History of ovarian cancer documented in this encounter Results * Cancer Antigen 125 (01/06/2023 7:31 AM EDT) CA 125 10.7 <=38.1 unit/mL [facility] Comment: CA 125 Reference Interval ??Postmenopausal: 6.2 to 31.5 U/mL. ??Premenopausal: 6.9 to 45.9 U/mL. ??Pre and Postmenopausal subjects combined: 6.4 to 38.1 U/mL. This result was generated using a Elo Elizabeth immunoassay. ??Results obtained from other methods or manufacturers cannot be used interchangeably with this method. Blood 01/06/2023 7:31 AM EDT 01/06/2023 7:35 AM EDT Narrative Resulting Agency Comment Spec In Lab Gabriela Singh MD CHEMISTRY ORDERABL ES [facility] [place] [address] documented in this encounter Visit Diagnoses Diagnosis History of ovarian cancer Personal history of malignant neoplasm of ovary Paroxysmal atrial fibrillation Atrial fibrillation Paroxysmal atrial fibrillation Atrial fibrillation documented in this encounter Care Teams Firestopper Installer Relationship Specialty Start Date End Date Evelyne Hunt APRN [address] [place] [address] PCP - General Internal Medicine 09/23/17 documented as of this encounter
--- OUTSIDE RECORDS SUMMARY | 2023-12-01 02:09 | XMS_ITS | Encounter Summary ---
Author Organization [facility] [place] [address] Care Team Providers Care Accountant Supervisor Name Role Phone Kiki Huntyce Dat STEVEN Primary Care Provider [phone] Encounter Details Date Type Department Care Team (Late st Contact Info) Description 09/22/2023 Telephone Cardiology at [address] [phone] Praveena Petty, RN Social History Tobacco Use [...] Telephone Encounter - Praveena Petty RN - 09/22/2023 3:09 PM EDT Patient called asking what to do about her recent ED visit at [facility] 2 weeks ago with a return of herAF. She says she went 2 years without it and was doing great. Reference Dr. Saenz's note as on-call was contacted for advice by the ED. So far patient has not had a referral to EP done as promised and no TON has been arranged or appt's. Plan was for CV if she hada cleared PALLAVI. Patient was advised to reach back out to the ED to see where the plans have stalled and see if she can get some answers. If she has any resistance she will call team nurse back. In the meantime patient has been prescribed Eliquis 5mg BID in the ED and she is on metoprolol. Praveena Vega RNdemand planning manager Cardiovascular [facility] General Team-Ottoniel documented in this encounter Plan of Treatment Upcoming Encounters Date Type Department Care Team (Latest Contact Info) Description 12/25/2023 9:[address] Scan at [place] [phone] Xavier Malhotra MD [facility] [place] [address] 12/29/2023 Hospital Encounter Electrophysiology Lab at [place] [phone] Xavier Malhotra MD [facility] [place] [address] Paroxysmal atrial fibrillation 12/29/2023 7:30 AM EDT - 12/29/2023 12:00 PM EDT Surgery Electrophysiology Lab at [address] Xavier Malhotra MD [facility] [place] [address] ELECTROPHYSIOLOGY PROCEDURE 01/14/2024 10:40 AM EDT Office Visit Cardiology at [place] [phone] Carmen Castaneda PA [facility] [place] [address] Scheduled Procedures Name Priority Associated Diagnoses Date/Ti me TRANSESOPHAGEAL ECHO DURING CATH/EP PROCEDURE Paroxysmal atrial fibrillation 12/29/2023 7:30 AM EDT documented as of this encounter Goals Goal Patient Goal Type Associated Problems Recent Progress Patient-Stated? Author DH Home Medication Compliance and Understanding Patient Facing Action Plan Lani Love, [facility] Note: Maintain control of disease for as long as possible as assessed by tumor marker levels and scans in clinic every 3 to 6 months documented as of this encounter Visit Diagnoses Not on filedocumented in this encounter Care Teams Accountant Supervisor Relationship Specialty Start Date End Date Evelyne Hunt APRN [address] [place] [address] PCP - General Internal Medicine 09/23/17 documented as of this encounter
--- OUTSIDE RECORDS SUMMARY | 2023-12-01 02:09 | XMS_ITS | Encounter Summary ---
[place] [address] Care Team Providers Care Applied Mathematician Name Role Phone Kiki Huntyce Dat STEVEN Primary Care Provider [phone] Reason for Visit * Reason Comments Follow-up Encounter Details Date Type Department Care Team (Late st Contact Info) Description 02/13/2023 8:00 AM EDT Office Visit Dermatology at [address] [address] Haresh Erwin MD [address] [facility] [place] [address] Vitiligo Social History Tobacco Use Types Packs/Day Years [...] Progress Notes * Haresh Erwin MD - 02/13/2023 8:00 AM EDT Problem: 1. Follow-up vitiligo 2. Patient vitiligo, successfully treated with 4 months of narrowband UVB phototherapy through January 2022 3. History of ovarian cancer 4. Status post aortic valve replacement Ivana follows up for repeat check on her vitiligo. I last saw her 3 months ago. I prescribed narrowband UVB phototherapy which has been successful for her in the past, but her insurance would not donnie prior authorization for treatment this time around. Their decision was rendered however after she had already received quite a number of treatments hashad pretty good response with clearance of the dorsal hands the volar wrists and most of her shins.She is happy with the level of control now and does not need any further therapy. Physical examination reveals a pleasant 62-year-old woman who has had near total resolution of her vitiligo. Assessment plan: Vitiligo, in remission 1. We have contacted [facility] where the light unit is housed and they will work with Ivana find a payment solution for the treatments given to date, and we gave Ivana a phone number to the 4 patient assistance program at [facility] in case future for therapy is required so that she can receive it at a reduced rate. 2. We are both very disappointed with her [facility] insurance and lack of coverage for this noncosmetic condition 3. Discontinue narrowband phototherapy for now 4. Return to clinic here as needed CC: Evelyne Hunt APRN documented in this encounter Plan of Treatment Upcoming Encounters Date Type Department Care Team (Latest Contact Info) Description 12/25/2023 9:[address] [place] [phone] Xavier Malhotra MD [facility] [place] [address] 12/29/2023 Hospital Encounter [place] [phone] Xavier Malhotra MD [facility] [place] [address] Paroxysmal atrial fibrillation 12/29/2023 7:30 AM EDT - 12/29/2023 12:00 PM EDT Surgery [place] [phone] Xavier Malhotra MD [facility] [place] [address] ELECTROPHYSIOLOGY PROCEDURE 01/14/2024 10:40 AM EDT Office Visit Cardiology at [address] [address] Carmen Castaneda PA [facility] [place] [address] Scheduled Procedures Name Priority Associated Diagnoses Date/Ti [...] of this encounter Visit Diagnoses Diagnosis Vitiligo Paroxysmal atrial fibrillation Atrial fibrillation Paroxysmal atrial fibrillation Atrial fibrillation documented in this encounter Care Teams Applied Mathematician Relationship Specialty Start Date End Date Evelyne Hunt APRN [address] [place] [address] PCP - General Internal Medicine 09/23/17 documented as of this encounter
--- OUTSIDE RECORDS SUMMARY | 2023-12-01 02:09 | XMS_ITS | Encounter Summary ---
[place] [address] Care Team Providers Care Magneto Specialist Name Role Phone Evelyne Hunt APRN Primary Care Provider [phone] Encounter Details Date Type Department Care Team (Late st Contact Info) Description 07/08/2023 Telephone Cardiology at [address] [phone] Antionette Doran, RN Social History Tobacco Use Types Packs/Day [...] encounter Miscellaneous Notes * Telephone Encounter - Antionette Doran RN - 07/08/2023 11:12 AM EDT VMM left by patient on nurse line to see if she still needed to take antibiotics before her dental procedure tomorrow. RTC to Patient and explained the following from her discharge instructions from valve replacement surgery: Antibiotic prophylaxis: You will need to take antibiotics prior to many invasive tests and treatments, such as dental cleaning, which should be done every 6 months. Your primary care physician or your dentist can prescribe this medication. A one time prescription has been ordered for you today. Any future refills should go through your PCP or Dentist. This nurse confirmed that patient had clindamycin 300 mg tablets on hand. Patient confirmed antibiotic and stated she had 5 pills ordered by her PCP. Patient instructed to take 2 pills one hour before her procedure tomorrow. Patient able to repeat medication, dosing and instructions back to this nurse. Patient verbalizes understanding and has no further questions at this time. Antionette Doran RN, BSN Ambulatory Cardiology Clinic, [facility] [phone] documented in this encounter Plan of Treatment Upcoming Encounters Date Type Department Care Team (Latest Contact Info) Description 12/25/2023 9:[address] [place] [address] Xavier Malhotra MD [facility] [place] [address] 12/29/2023 Hospital Encounter Elect[place] [phone] Xavier Malhotra MD [facility] [place] [address] Paroxysmal atrial fibrillation 12/29/2023 7:30 AM EDT - 12/29/2023 12:00 PM EDT Surgery [place]rophys[place] [phone] Xavier Malhotra MD [facility] [place] [address] ELECTROPHYSIOLOGY PROCEDURE 01/14/2024 10:40 AM EDT Office Visit Cardiology at [address] [phone] Carmen Csataneda PA [facility] [place] [place] [address] Scheduled Procedures Name Priority Associated Diagnoses Date/Ti me TRANSESOPHAGEAL ECHO DURING CATH/EP PROCEDURE Paroxysmal atrial fibrillation 12/29/2023 7:30 AM EDT documented as of this encounter Goals Goal Patient Goal Type Associated Problems Recent Progress Patient-Stated? Author DH Home Medication Compliance and Understanding Patient Facing Action Plan No Lani Vargas, [facility] Note: Maintain control of disease for as long as possible as assessed by tumor marker levels and scans in clinic every 3 to 6 months documented as of this encounter Visit Diagnoses Not on filedocumented in this encounter Care Teams Magneto Specialist Relationship Specialty Start Date End Date Evelyne Hunt, [employer] [address] [place] [address] PCP - General Internal Medicine 09/23/17 documented as of this encounter
--- OUTSIDE RECORDS SUMMARY | 2023-12-01 02:09 | XMS_ITS | Encounter Summary ---
Author Organization [facility] [place] [address] Care Team Providers Care Box Blank Machine Operator Helper Name Role Phone Kiki Huntyce Dat STEVEN Primary Care Provider [phone] Encounter Details Date Type Department Care Team (Latest Contact Info) Description 05/05/2023 Travel Social History Tobacco Use Types Packs/Day [...] 9:[address] [place] [address] Xavier Malhotra MD [facility] [address] 12/29/2023 Hospital Encounter Electrophys[place] [phone] Xavier Malhotra MD [facility] [place] [address] Paroxysmal atrial fibrillation 12/29/2023 7:30 AM EDT - 12/29/2023 12:00 PM EDT Surgery [place] [address] Xavier Malhotra MD [facility] [place] [address] ELECTROPHYSIOLOGY PROCEDURE 01/14/2024 10:40 AM EDT Office Visit Cardiology at [address] [phone] Carmen Castaneda PA [facility] [place] [address] Scheduled Procedures Name Priority Associated Diagnoses Date/Ti me TRANSESOPHAGEAL ECHO DURING CATH/EP PROCEDURE Paroxysmal atrial fibrillation 12/29/2023 7:30 AM EDT documented as of this encounter Goals Goal Patient Goal Type Associated Problems Recent Progress Patient-Stated? Author DH Home Medication Compliance and Understanding Patient Facing Action Plan No Lani Vargas, [facility] Note: Maintain control of disease for as long as possible as assessed by tumor marker levels and scans in clinic every 3 to 6 months documented as of this encounter Visit Diagnoses Not on filedocumented in this encounter Care Teams Box Blank Machine Operator Helper Relationship Specialty Start Date End Date Evelyne Hunt APRN [address] [place] [address] PCP - General Internal Medicine 09/23/17 documented as of this encounter
--- OUTSIDE RECORDS SUMMARY | 2023-12-01 02:09 | XMS_ITS | Encounter Summary ---
Author Organization [facility] [place] [address] Care Team Providers Care Raspberry Checker Name Role Phone Kiki Huntjunaid Daugherty APRN Primary Care Provider [phone] Encounter Details Date Type Department Care Team (Latest Contact Info) Description 02/13/2023 Travel Social History Tobacco Use Types Packs/Day [...] 9:[address] [place] [address] Xavier Malhotra MD [facility] [place] [address] 12/29/2023 Hospital Encounter [place] [phone] Xavier Malhotra MD [facility] [place] [address] Paroxysmal atrial fibrillation 12/29/2023 7:30 AM EDT - 12/29/2023 12:00 PM EDT Surgery [place] [address] Xavier Malhotra MD [facility] [place] [address] ELECTROPHYSIOLOGY PROCEDURE 01/14/2024 10:40 AM EDT Office Visit Cardiology at [address] [phone] Carmen Castaneda PA [facility] [place] [address] Scheduled Procedures Name Priority Associated Diagnoses Date/Ti me TRANSESOPHAGEAL ECHO DURING CATH/EP PROCEDURE Paroxysmal atrial fibrillation 12/29/2023 7:30 AM EDT documented as of this encounter Goals Goal Patient Goal Type Associated Problems Recent Progress Patient-Stated? Author DH Home Medication Compliance and Understanding Patient Facing Action Plan No Lani Vargas, [facility] Note: Maintain control of disease for as long as possible as assessed by tumor marker levels and scans in clinic every 3 to 6 months documented as of this encounter Visit Diagnoses Not on filedocumented in this encounter Care Teams Raspberry Checker Relationship Specialty Start Date End Date Evelyne Hunt APRN [address] [place] [address] PCP - General Internal Medicine 09/23/17 documented as of this encounter
--- OUTSIDE RECORDS SUMMARY | 2023-12-01 02:09 | XMS_ITS | Encounter Summary ---
Author Organization Formerly [facility] [place] [address] Care Team Providers Care Assembly Hand Name Role Phone MarileeEvelyne APRN Primary Care Provider [phone] Reason for Visit * Reason Comments Shortness of Breath Atrial Fibrillation * Auth/Cert (Routine) Specialty Diagnoses / Procedures Referred By Marcel t Referred To Contact Diagnoses Atrial fibrillation Nonrheumatic aortic valve stenosis Procedures ER OBSVO Linda Bailey MD [facility] [place] [address] [facility] Referral ID Status Reason Start Date Expiration Date Visits Re quested Visits Authorized [id number] 1 1 Encounter Details Date Type Department Care Team (Late st Contact Info) Description 09/24/2023 8:36 PM EDT - 09/25/2023 4:33 PM EDT Emergency Heart and Vascular Unit Level 4 [place] [address] Favio Topete MD [facility] [place] [address] Linda Bailey MD [facility] [place] [address] Atrial fibrillation (Primary Dx); Nonrheumatic aortic valve stenosis Discharge Disposition: Home Social History Tobacco Use Types Packs/Day Years Used Date Smoking Tobacco: Former Cigarettes Q uit: 07/12/1977 Smokeless Tobacco: Never Alcohol Use Standard Drinks/Week Comments Not Currently 0 (1 standard drink = 0.6 oz pur e alcohol) [facility] Utilities Answer Date Recorded In the [...] any time in the past 12 m [facility], were you homeless or living in a intermediate (including now)? No 09/25/2023 IPV Inpatient Questions [...] Sign Reading Time Taken Comments Blood Pressure 99/78 09/25/2023 1:15 PM EDT Pulse 63 09/25/2023 1:15 PM EDT Temperature 36.6 ??C (97.8 ??F) 09/25/2023 1:15 PM ED T Respiratory Rate 16 09/25/2023 1:15 PM EDT Oxygen Saturation 99% 09/25/2023 1:15 PM EDT Inhaled Oxygen Concentration - - Weight [...] of Presentation (per 09/24/2023 Admission H&P): Gabi Waller 62 y.o. female with a [...] bedside. The patient was recently admitted to [facility] 2 weeks ago due to feelings of dizziness and palpitations. During that admission she was found to be in A-fib with RVR. [facility] on 09/14/2023, the patient was [...] her symptoms, she decided to report to [facility] for further management. She denies any symptoms of fevers, chills, visual changes, changes in hearing, focal weakness worsening cough, chest pain, diarrhea, abdominal pain, dysuria, rash in any parts of the body. She mentions that she has been compliant with her medications since discharge. Social Hx - Lives in [place], [place] on [facility] - Enjoys swimming and walking for exercise. [...] who have questions please contact the health care transition coordinator that requested your imaging first. Electronically signed by: Sabrina Sánchez MD, [facility] ([phone]), at 09/24/2023 11:06 PM Microbiology: N/A Discharge [...] Center 11/04/2023 10:20 AM Iram Laird MD [facility] DIE PRESSER 3K [facility] 11/28/2023 10:00 AM Mandeep Franco MD [facility] CARD 4A [facility] Your Inpatient Doctor: MD Linda Contreras MD ChanBormey Leatheng, MD Your Primary Care Provider: Evelyne Hunt, HOUSEKEEPING LEAD [phone] For questions regarding this document or issues relating to this hospitalization on the Medical Service, please contact your inpatient physician through the [facility] Technical Cable Jointer . Issues afterhours and on weekends will be handled by the Hospitalist staff on-call. General Instructions None Future Appointments and Orders Future Appointments and Orders Future Appointments Provider Department Dept Phone 11/04/2023 10:20 AM Iram Laird MD Gynecology Oncology at [facility] Arrive at: Epidemiologist Area [phone] 11/28/2023 10:00 AM Mandeep Franco MD Cardiology at [facility] Arrive at: Epidemiologist Area [phone] Provider Contact Information: Evelyne Hunt, HOUSEKEEPING LEAD [address] / [place] [address] Discharge References/Attachments: Discharge References/Attachments None documented in [...] Center 11/04/2023 10:20 AM Iram Laird MD [facility] DIE PRESSER 3K [facility] 11/28/2023 10:00 AM Mandeep Franco MD [facility] CARD 4A [facility] Your Inpatient Doctor: MD Linda Contreras MD ChanBormey Leatheng, MD Your Primary Care Provider: Evelyne Hunt, TENISHA [phone] For questions regarding this document or issues relating to this hospitalization on the Medical Service, please contact your inpatient physician through the [facility] Technical Cable Jointer . Issues afterhours and on weekends will [...] here for TEEDCCV - consent signed Max myContactCard Pager [phone] * Linda Bailey MD - 09/25/2023 1:58 AM EDT Images from the original note were not included. Cardiovascular Medicine Admission History and Physical Patient Name: Gabi Velázquez Cheryl Service: Cardiology S 1 Responsible Attending: Linda Bailey MD PCP: Evelyne Hunt APRN ID:Gabi Eber Waller 62 y.o. female with a PMH [...] peripheral neuropathy. History of Present Illness: Gabi Waller 62 y.o. female with a [...] bedside. [facility] [...] her symptoms, she decided to report to [facility] for further management. She denies any symptoms of fevers, chills, visual changes, changes in hearing, focal weakness worsening cough, chest pain, diarrhea, abdominal pain, dysuria, rash in any parts of the body. She mentions that she has been compliant with her medications since discharge. Social Hx - Lives in [place], [place] on [employer] [address] - Enjoys swimming and walking for [...] from chemotherapy Motor Exam: Upper Limb Bilateral: Home Coordinator Strength 5/5 Wrist Flexion/Extension 5/5 Elbow Flexion/Extension [...] in the last 7068 hours. Invalid input(s): [id number] Heme: No results for input(s): LDH, HAPTOGLOBIN, [...] Home meds: Eliquis 5 mg BID, metoprolol [id number] mg PLAN - Currently rate controlled. - [...] as per HPI Vitals: ED Triage Vitals [09/24/23 1940] BP: (!) 144/97 Pulse: n/a Resp: 20 [...] significant for: ED Course as of 09/25/232043 [facility] Sep 25, 2023 0016 Paged cardiology [phone] [...] who have questions please contact the health care transition coordinator that requested your imaging first. Electronically signed by: Sabrina Sánchez MD, [facility] ([phone]), at 09/24/2023 11:06 PM Procedures Assessment and [...] COVID test: Lab Results Component Value Date [id number] Not Detected 08/08/2020 Present on Admission: Atrial fibrillation 09/24: s/p Cardioversion Hospitalizations Within the Past 30 Days: The patient was recently admitted to [facility] 2 weeks ago due to feelings of dizziness and palpitations. Patient receiving hospital care under Inpatient status. Admission order reviewed. Health/Prescription Coverage: Primary Insurance: [employer] [facility] MGD MEDICARE Payor: [facility] MGD MEDICARE / Plan: [facility] / Product Type: *No Product type* / Secondary Insurance: N/A ; Prescription Coverage: Yes Preferred Pharmacy: [facility] - [address] [facility] [address] [address] [id number] - [place], [place] - [address] [facility] [address] [place] [id number] Advance Care Planning: Attempt Cardiopulmonary Resuscitation - Inpatient <no information> -Advanced Directive: Other (Sandoval Waller (Spouse)) Current Functional Ability: Independent Functional Status Prior to Admission: Independent Home Environment: Others in the home: spouse. Current Living Arrangements: home/apartment/condo. Accessibility Concerns:denies issues. Current DME: none [address] [facility] [address] Social & Family Supports: All names listed below confirmed with patient as current and correct Extended Emergency Contact Information Primary Emergency Contact: Sandoval Waller Address: [address] [place] [address] [facility] Relation: Spouse Secondary Emergency Contact: [place] [address] [facility] Relation: Friend Current Care Provided by: [...] via car when medically ready. Registered Nurse Bag Cutter / Box Covering Machine Operator will continue to follow patient???s progress and remain available if situation changes for coordination of care, psychosocial support and/or discharge planning. Office of Care Management Kalpesh Smith RN RN/CM - Cellphone: [phone] Pager: [phone] Covering Service RN/CM * Plan of Care - Nabor Hammond RN - 09/25/2023 6:03 AM EDT SHIFT EVALUATION NOTE: SHIFT SUMMARY: Pt arrived to HVU in activities counselor. Pt AOx4. VSS on RA, assessment as [...] 9:[address] [place] [phone] Xavier Malhotra MD [facility] [place] [address] 12/29/2023 Hospital Encounter [place] [phone] Xavier Malhotra MD [facility] [place] [address] Paroxysmal atrial fibrillation 12/29/2023 7:30 AM EDT - 12/29/2023 12:00 PM EDT Surgery [place] [phone] Xavier Malhotra MD [facility] ELECTROPHY[place] [address] ELECTROPHYSIOLOGY PROCEDURE 01/14/2024 10:40 AM EDT Office Visit Cardiology at [address] [phone] Carmen Castaneda PA [facility] [place] [address] Scheduled Procedures Name Priority Associated Diagnoses Date/Ti me TRANSESOPHAGEAL ECHO DURING CATH/EP PROCEDURE Paroxysmal atrial fibrillation 12/29/2023 7:30 AM EDT documented as of this encounter Goals Goal Patient Goal Type Associated Problems Recent Progress Patient-Stated? Author [facility] Medication Compliance and Understanding Patient Facing Action Plan Lani Love, [facility] Note: Maintain control [...] EDT Atrial fibrillation Cardioversion Elective Arrhythmia External (59540) 09/25/2023 11:14 AM EDT af TON complete wo contrast (38892) 09/25/2023 11:14 AM EDT af TRANSESOPHAGEAL ECHOCARDIOGRAM-OR [...] (Bezet) 456 ms MUSE SYSTEM Calculated R Sula -44 degrees MUSE SYSTEM Calculated T Sula 9 degrees MUSE SYSTEM INTERPRETATION Normal sinus [...] Date: 09/25/2023 11:21 AM ? Patient Location: [address] : 1960 ? Account: [id number] Age: 62 yrs Gender: Female Ordering Physician: AAKASH JOSEPH Performed By: Rosalva David Interpreting Fellow: Rosalva David. Exam Location: [facility]. Interpretation Summary TON performed to rule [...] Echocardiogram Report Name: GABI WALLER Study Date: 1:21 AM Patient Location: [address] : 1960 Account: [id number] Age: 62 yrs Gender: Female Ordering Physician: AAKASH JOSEPH Performed By: Rosalva David Interpreting Fellow: Rosalva David. Exam Location: [facility]. Interpretation Summary TON performed to rule PALLAVI/LA thrombus prior to DCCV: - There was no thrombus in the LA/PALLAVI. The left atrial emptying velocitybefore DCCV was normal. - After the LA/PALLAVI were cleared, the patient underwent cardioversion [id number] with successful conversion to normal sinus rhythm. [...] AM EDT Narrative 09/25/2023 12:00 PM EDT [address] [place] [address] ? Echocardiogram Report Name: GABI WALLER ?Study Date: 09/25/2023 06:57 AMBP: 102/75 mmHg ? Patient Location: [address] : 1960 ? Height: 165 cm ? Account: [id number] Age: 62 yrs ? Weight: 56 kg Gender: Female ?BSA: 1.6 m2 Ordering Physician: LINDA BAILEY Performed By: Shaylee Suazo RDCS Reason For Study: avr Exam Location: [facility]. Interpretation Summary -Left ventricle is of [...] has not been a significant change. Procedure Complete-54126. Satisfactory quality. Left Ventricle Left ventricle is [...] Note Mandeep Franco MD - 09/25/2023 1 [place] [address] Echocardiogram Report Name: GABI WALLER Study Date: 406:57 AMBP: 102/75 mmHg Patient Location: [address] : 1960 Height: 165 cm Account: [id number] Age: 62 yrs Weight: 56 kg Gender: Female BSA: 1.6 m2 Ordering Physician: LINDA BAILEY Performed By: Shaylee Suazo RDCS Reason For Study: avr Exam Location: [facility]. Interpretation Summary -Left ventricle is of [...] has not been a significant change. Procedure Complete-55740. Satisfactory quality. Left Ventricle Left ventricle is [...] grams 68.4 ml/m2 LV mass(C)dI: 61.8 grams/m2 ESV(HM)Indexed: LVOT diam: 1.7 cm 29.2 ml/m2 TAPSE_phl: [...] (Bezet) 445 ms MUSE SYSTEM Calculated R Sula -23 degrees MUSE SYSTEM Calculated T Sula 81 degrees MUSE SYSTEM INTERPRETATION Atrial fibrillation Septal infarct (cited on or before 01-FEB-2022) Abnormal ECG When compared with ECG of 01-FEB-2022 04:30, Vent. rate has decreased BY ??58 BPM T wave inversion no longer evident in Lateral leads I personally reviewed the tracing and edited the fellows interpretation Confirmed by fellow MD Gregoria, Alf ([id number]) on 09/25/2023 10:12:30 AM Confirmed by MD JARED, DANIEL ([id number]) on 09/25/2023 9:12:17 PM MUSE SYSTEM 09/25/2023 3:08 AM EDT 09/25/2023 9:12 PM EDT Linda Bailey MD ECG ORDERABLES MUSE SYSTEM * Gold Tube HOLD (09/25/2023 3:07 AM EDT) Gold Hold Sample in lab. [facility] Blood Venous Draw / Unknown 09/25/2023 3:07 AM EDT 09/25/2023 3:[address] Wiliam Hidalgo MD CHEMISTRY ORDERABLES Performing Organization Address [facility] Co de Phone Number [facility] [place] [address] * Blue Tube HOLD (09/25/2023 3:07 AM EDT) [facility] Blue Hold Sample in lab. [facility] Blood Venous Draw / Unknown 09/25/2023 3:07 AM EDT 09/25/2023 3:[address] Wiliam Hidalgo MD HEMATOLOGY ORDERABLE S Performing Organization Address [facility] Co de Phone Number [facility] [place] [address] * (ABNORMAL) Comprehensive metabolic panel (non-fasting) (09/25/2023 3:07 AM EDT) Pathologist [facility] Glucose 100 65 - 199 mg/dL [facility] Comment:Diabetes: >=200 mg/d L plus symptoms Blood Urea Nitrogen 8 8 - 18 mg/dL [facility] Creatinine 0.67(L) 0.70 - 1.20 mg/dL [facility] Sodium 138 135 - 145 mmol/L [facility] Potassium 3.9 3.5 - 5.0 mmol/L [facility] Comment: Please note: ??Patients with WBC >100,000 may have falsely elevated Potassium levels. ??For accurate Potassium quantification in these patients send serum separator tube (gold top) for subsequent determinations. ??Contact the Clinical Chemistry Laboratory if there are any questions. Chloride 105 98 - 107 mmol/L [facility] Carbon Dioxide 22 22 - 31 mmol/L [facility] Anion Gap 11 5 - 15 mmol/L [facility] Calcium 9.7 8.5 - 10.5 mg/dL [facility] Protein, Total 6.6 6.1 - 8.0 g/dL [facility] Albumin 4.1 3.2 - 5.2 g/dL [facility] Aspartate Aminotransferase 18 0 - 30 unit/L [facility] Alanine Aminotransferase 21 0 - 30 unit/L [facility] Alkaline Phosphatase 83 35 - 105 unit/L [facility] Bilirubin, Total 0.8 0.2 - 1.3 mg/dL [facility] Est Glomerular Filtration Rate 99 >=60 mL/min/1. 73 m?? [facility] Comment: This patient's estimated GFR [...] In Lab Linda Bailey MD CHEMISTRY ORDERABLES [facility] [place] [address] * (ABNORMAL) Hemogram (09/25/2023 3:07 AM EDT) White Blood Cell 6.2 4.0 - 9.5 x10(3)/mc L [facility] Red Blood Cell 4.23 4.00 - 5.21 x10(6)/mc [facility] Hemoglobin 14.4 11.7 - 15.5 g/dL [facility] Hematocrit 40.9 35.7 - 45.8 % [facility] Mean Cell Volume 96.7(H) 82.6 - 94.4 fL [facility] Mean Cell Hemoglobin 34.0(H) 27.1 - 32.0 pg [facility] Mean Cell Hemoglobin Concentration 35.2(H) 31.7 - 35.0 g/dL [facility] Platelet 260 145 - 357 x10(3)/mc L [facility] RDW Standard Deviation 40.9 37.0 - 46.0 [facility] RDW coefficient of variation 11.5 11.5 - 14.1 % [facility] Mean Platelet Volume 8.7 7.6 - 12.9 [facility] NRBC% auto 0.0 % [facility] NRBC Absolute 0.000 0.000 - 0.000 x10(3)/mc L [facility] Blood 09/25/2023 3:07 AM EDT 09/25/2023 3:17 AM EDT Narrative Resulting Agency Comment Spec In Lab Linda Bailey MD HEMATOLOGY ORDERABLE S Performing Organization Address City/[facility] Co de Phone Number [facility] [place] [address] * Magnesium (09/25/2023 3:07 AM EDT) [facility] Magnesium 0.84 0.69 - 1.07 mmol/L [facility] Blood 09/25/2023 3:07 AM EDT 09/25/2023 3:17 AM EDT Narrative Resulting Agency Comment Spec In Lab Linda Bailey MD CHEMISTRY ORDERABLES Performing Organization Address [facility]/ZIP Co de Phone Number [facility] [place] [address] * Troponin (09/24/2023 10:56 PM EDT) Pathologist [facility] Troponin-T, High Sensitivity 7 <=14 ng/L [facility] Comment: This patient's troponin T [...] troponin value can be found in the [facility] Test Catalog Troponin - [facility] Test Catalog Reference: Fourth Squires Definition of Myocardial Infarction. Journal of the [place] [employer] 2018;72:6798-1092 Blood 09/24/2023 10:5 6 PM EDT 09/24/2023 11:02 PM EDT Narrative Resulting Agency Comment Spec In Lab Nick Nichols MD CHEMISTRY ORDERABLE S [facility] [place] [address] * XR Chest PA & Lateral (Generic) (09/24/2023 10:55 PM EDT) Pathologist [facility] WORKSTATION ID [id number] DH RAD Anatomical Region Laterality Modality Chest N/A Digital Radiogra phy Impressions 09/24/2023 11:06 PM EDT No acute finding. Thank you for letting us participate in the care of this patient. ??If you are a health care provider and have any questions regarding this report, please contact the number below. ??For patients who have questions please contact the health care transition coordinator that requested your imaging first. ? Electronically signed by: Sabrina Sánchez MD, [facility] ([phone]), at 09/24/2023 11:06 PM Narrative 09/24/2023 11:06 [...] patients who have questions please contactthe health care transition coordinator that requested your imaging first. Electronically signed by: Sabrina Sánchez MD, [facility]([phone]), at 09/24/2023 11:06 PM Favio Topete MD IMG DX ORDERABLES * (ABNORMAL) pro-Brain Natriuretic Peptide (09/24/2023 8:00 PM EDT) Pathologist [facility] NT-proBNP 1,397(H) <=124 pg/mL [facility] Blood Venous Draw / Unknown 09/24/2023 8:00 PM EDT 09/24/2023 8:13 PM EDT Narrative Resulting Agency Comment Spec In Lab Vivian Campbell MD CHEMISTRY ORDERABLES Performing Organization Address City/[facility]/ZIP Co de Phone Number [facility] [place] [address] * Magnesium (09/24/2023 8:00 PM EDT) [facility] Magnesium 0.80 0.69 - 1.07 mmol/L [facility] Blood Venous Draw / Unknown 09/24/2023 8:00 PM EDT 09/24/2023 8:13 PM EDT Narrative Resulting Agency Comment Spec In Lab Vivian Campbell MD CHEMISTRY ORDERABLES Performing Organization Address City/[facility]/ZIP Co de Phone Number [facility] [place] [address] * Hepatic Function Panel (09/24/2023 8:00 PM EDT) Pathologist [facility] Protein, Total 7.1 6.1 - 8.0 g/dL [facility] Albumin 4.4 3.2 - 5.2 g/dL [facility] Aspartate Aminotransferase 27 0 - 30 unit/L [facility] Alanine Aminotransferase 24 0 - 30 unit/L [facility] Alkaline Phosphatase 99 35 - 105 unit/L [facility] Bilirubin, Total 0.6 0.2 - 1.3 mg/dL [facility] Bilirubin, Direct 0.1 0.0 - 0.3 mg/dL [facility] Blood Venous Draw / Unknown 09/24/2023 8:00 PM EDT 09/24/2023 8:13 PM EDT Narrative Resulting Agency Comment Spec In Lab Vivian Campbell MD CHEMISTRY ORDERABLES [facility] [place] [address] * Differential, Automated (09/24/2023 8:00 PM EDT) Neutrophil % 51.3 % [facility] Neutrophil Absolute 3.99 1.70 - 6.10 x10(3)/[facility] Lymph % 34.7 % [facility] Lymphocytes Abs 2.7 0.9 - 3.2 x10(3)/[facility] Monocyte % 8.9 % [facility] Monocyte Abs 0.7 0.3 - 0.9 x10(3)/[facility] Eos % 3.3 % [facility] Eosinophils Abs 0.3 0.0 - 0.4 x10(3)/[facility] Basophil % 1.3 % [facility] Baso Absolute 0.1 0.0 - 0.1 x10(3)/[facility] LABORATORY Immature Gran % 0.50 % [facility] Comment: Immature granulocytes(IG's)percentage and absolute count will include metamyelocytes, myelocytes, and promyelocytes. Blood smears from CBCs yielding IG's will be scanned manually for concordance. If this scan disagrees with the automated IG or if promyelocytes are noted, a manual differential will be performed. Immature Gran Absolute 0.04 0.00 - 0.04 x10(3)/[facility] Blood 09/24/2023 8:00 PM EDT 09/24/2023 8:27 PM EDT Narrative Resulting Agency Comment Spec In Lab Clem SEARS HEMATOLOGY ORDERABLE S [facility] [place] [address] * (ABNORMAL) Hemogram (09/24/2023 8:00 PM EDT) White Blood Cell 7.8 4.0 - 9.5 x10(3)/[facility]OR[facility] Red Blood Cell 4.27 4.00 - 5.21 x10(6)/[facility] Hemoglobin 14.7 11.7 - 15.5 g/dL [facility] Hematocrit 41.5 35.7 - 45.8 % [facility] Mean Cell Volume 97.2(H) 82.6 - 94.4 fL [facility] Mean Cell Hemoglobin 34.4(H) 27.1 - 32.0 pg [facility] Mean Cell Hemoglobin Concentration 35.4(H) 31.7 - 35.0 g/dL [facility] Platelet 302 145 - 357 x10(3)/[facility] LABORATORY RDW Standard Deviation 41.6 37.0 - 46.0 [facility]ORATORY RDW coefficient of variation 11.6 11.5 - 14.1 % [facility] Mean Platelet Volume 8.8 7.6 - 12.9 [facility] LABORATORY NRBC% auto 0.0 % [facility] NRBC Absolute 0.000 0.000 - 0.000 x10(3)/[facility] Blood 09/24/2023 8:00 PM EDT 09/24/2023 8:27 PM EDT Narrative Resulting Agency Comment Spec In Lab Clem SEARS HEMATOLOGY ORDERABLE S [facility] [place] [address] * Gold Tube HOLD (09/24/2023 8:00 PM EDT) Pathologist [facility] Gold Hold Sample in lab. [facility] Blood Venous Draw / Unknown 09/24/2023 8:00 PM EDT 09/24/2023 8:12 PM EDT Clem SEARS CHEMISTRY ORDERABLES Performing Organization Address City/[facility] Co de Phone Number [facility] [place] [address] * Blue Tube HOLD (09/24/2023 8:00 PM EDT) Blue Hold Sample in lab. [facility] Blood Venous Draw / Unknown 09/24/2023 8:00 PM EDT 09/24/2023 8:11 PM EDT Clem SEARS HEMATOLOGY ORDERABLE S Performing Organization Address [facility] de Phone Number [facility] [place] [address] * Troponin (09/24/2023 8:00 PM EDT) Troponin-T, High Sensitivity 7 <=14 ng/L [facility] Comment: This patient's troponin T [...] troponin value can be found in the [facility] Test Catalog Troponin - [facility] Test Catalog Reference: Fourth Squires Definition of Myocardial Infarction. Journal of the [employer] 2018;72:9471-3836 Blood 09/24/2023 8:00 PM EDT 09/24/2023 8:10 PM EDT Narrative Resulting Agency Comment Spec In Lab Nick Nichols MD CHEMISTRY ORDERABLE S [facility] [place] [address] * (ABNORMAL) Basic Metabolic Panel (non-fasting) (09/24/2023 8:00 PM EDT) Glucose 92 65 - 199 mg/dL [facility] Comment:Diabetes: >=200 mg/d L plus symptoms Blood Urea Nitrogen 11 8 - 18 mg/dL [facility] Creatinine 0.71 0.70 - 1.20 mg/dL [facility] Sodium 134(L) 135 - 145 mmol/L [facility] Potassium 4.2 3.5 - 5.0 mmol/L [facility] Comment: Please note: ??Patients with WBC >100,000 may have falsely elevated Potassium levels. ??For accurate Potassium quantification in these patients send serum separator tube (gold top) for subsequent determinations. ??Contact the Clinical Chemistry Laboratory if there are any questions. Chloride 98 98 - 107 mmol/L [facility] Carbon Dioxide 23 22 - 31 mmol/L [facility] Anion Gap 13 5 - 15 mmol/L [facility] Calcium 10.2 8.5 - 10.5 mg/dL [facility] Est Glomerular Filtration Rate 96 >=60 mL/min/1. 73 m?? [facility] Comment: This patient's estimated GFR [...] Lab Nick Nichols MD CHEMISTRY ORDERABLE S [facility] [place] [address] documented in this encounter Visit Diagnoses Diagnosis Atrial fibrillation- Primary Atrial fibrillation Nonrheumatic aortic valve stenosis Aortic valve disorders Paroxysmal atrial fibrillation Atrial fibrillation Paroxysmal atrial fibrillation Atrial fibrillation documented in this encounter Admitting Diagnoses Diagnosis Atrial [...] 6:30 AM EDT 850 Units/hr 17 mL/hr magnesium sulfate 2 g in sterile water 50 mL infusion 2 g, Intravenous, ONCE, 1 dose, On Luoisa 09/25/23 at 0223, Administer over 120 Minutes [...] Louisa 09/25/23 at 0900, Until Discontinued, Routine 912 (Given - Provid er: Love Gutierres RN)1115 (JUN Hold - Provider: Admin Adt - Reason: Transfer to a Procedural area)1312 (JUN Unhold - Provider: Admin Adt) atorvastatin (Lipitor) tablet 10 mg 10 mg, Oral, DAILY, First dose on Louisa 09/25/23 at 0900, Until Discontinued, Routine 912 (Given - Provid er: Love Gutierres RN)1115 ([facility] Hold - Provider: Admin Adt - Reason: Transfer to a Procedural area)131 ([facility] Unhold - Provider: Admin Adt) buPROPion XL (Wellbutrin XL) tablet 300 mg 300 mg, Oral, DAILY, First dose on Louisa 09/25/23 at 0900, Until Discontinued, DO NOT CRUSH OR OPEN, Routine 0913 (Given - Provid er: Love Gutierres RN)111 ([facility] Hold - Provider: Admin Adt - Reason: Transfer to a Procedural area)131 ([facility] Unhold - Provider: Admin Adt) cholecalciferoL (Vitamin D3) tablet 2,000 Units 2,000 Units, Oral, DAILY, First dose on Louisa 09/25/23 at 0900, Until Discontinued 09 (Given - Provid er: Love Gutierres RN)111 ([facility] Hold - Provider: Admin Adt - Reason: Transfer to a Procedural area)131 ([facility] Unhold - Provider: Admin Adt) magnesium sulfate [...] (Given - Provid er: Nabor Hammond RN)111 ([facility] Hold - Provider: Admin Adt - Reason: Transfer to a Procedural area)131 ([facility] Unhold - Provider: Admin Adt) sodium chloride 0.9 % (flush) (BD PosiFlush Normal Saline 0.9) flush 5 mL 5 mL, Intravenous, 2 TIMES DAILY, First dose on Louisa 09/25/23 at 0146, Until Discontinued, Routine 0146 (Not Given - Pr ovider: Dali Gonzalez RN - Reason: See comment - Comment: not needed, line in use)0900 (Not Given - Provider: Love M Potter, RN - Reason: See comment - Comment: [...] Heparin UFH Level - Per Protocol, Routine 06 (New Bag - Prov ider: Nabor Hammond RN)1115 ([facility] Hold - Provider: Admin Adt - Reason: Transfer to a Procedural area)1122 (Rate/Dose Change - Provider: Germaine Capellan CRNA - Comment: Continued from floor; verified with cardiology)1312 ([facility] Unhold - Provider: Admin Adt) PRN Medication Order 09/23/2023 09/24/2023 09/25/2023 lidocaine (Xylocaine) 1% (10 mg/mL) injection 3 mg 3 mg (0.3 mL), Subcutaneous, ONCE PRN, 1 dose, Starting on Louisa 624 at 0145, Until Louisa 624 at 1833, for discomfort with PIV insertion, Routine 1115 (JUN Hold - Pro vider: Admin Adt - Reason: Transfer to a Procedural area)1312 ([facility] Unhold - Provider: Admin Adt) lidocaine (Xylocaine) 5 % ointment (CANCELED) PRN, Starting on Louisa 624 at 1121, Until Louisa 6//24 at 1833, Intra-Operative (Intra-Procedure) 112 (Given - Provid er: Jil Moraes RN) metoprolol (LOPRESSOR) injection 5 mg 5 mg, Intravenous, EVERY 5 MIN PRN, Starting on Louisa 24 at 0526, Until Louisa 6/24 at 1833, Elevated Heart Rate, HR > 130 1115 (JUN Hold - Pro vider: Admin Adt - Reason: Transfer to a Procedural area)1312 ([facility] Unhold - Provider: Admin Adt) nitroGLYcerin (Nitrostat) disintegrating tablet 0.4 mg 0.4 mg, Sublingual, EVERY 5 MIN PRN, Starting on Louisa 6//24 at 0145, Until Louisa 6//24 at 1833, Chest pain, May repeat every [...] - Reason: Transfer to a Procedural area)1312 ([facility] Unhold - Provider: Admin Adt) sodium chloride 0.9 % (flush) (BD PosiFlush Normal Saline 0.9) flush 5-20 mL 5-20 mL, Intravenous, EVERY 1 MIN PRN, Starting on Louisa 6//24 at 0145, Until Louisa 6/24 at 1833, flush, Flush pertains to all indwelling lines. Flush per protocol found in the job aid using the link provided on this medication record., Routine 1115 (JUN Hold - Pro vider: Admin Adt - Reason: Transfer to a Procedural area)1312 ([facility] Unhold - Provider: Admin Adt) traZODone (Desyrel) tablet 100 mg 100 mg, Oral, NIGHTLY PRN, Starting on Louisa 624 at 0145, Until Louisa 624 at 1833, Sleep, Routine 0404 (Given - Provid er: Nabor Hammond RN)1115 ([facility] Hold - Provider: Admin Adt - Reason: Transfer to a Procedural area)1312 ([facility] Unhold - Provider: Admin Adt) Linked Groups Order Group 1: heparin (porcine) 50 units/mL in dextrose 5% 500 mL infusion (CANCELED)Jump to med 0-5,000 Units/hr (0-100 mL/hr), Intravenous, CONTINUOUS, Starting on Louisa 624 at 0615, Until Louisa 6/24 at 1350, Begin infusion at 850 units [...] BOLUS PER HEPARIN PROTOCOL, Starting on Louisa 6/6/24 at 0518, Until Louisa 6/6/24 at 1350, Per Protocol, START ADJUSTMENT SCHEDULE [...] Routine documented in this encounter Care Teams Assembly Hand Relationship Specialty Start Date End Date Evelyne Hunt APRN [address], [place] [id number] PCP - General Internal Medicine 09/23/17 documented as of this encounter
--- OUTSIDE RECORDS SUMMARY | 2023-12-01 02:09 | XMS_ITS | Encounter Summary ---
Author Organization Formerly [facility] [place] [address] Care Team Providers Care Burn Nurse Name Role Phone Kiki Huntyce Dat STEVEN Primary Care Provider [phone] Reason for Visit * Auth/Cert (Routine) Specialty Diagnoses / Procedures Referred By Contac t Referred To Contact Diagnoses Atrial fibrillation Nonrheumatic aortic valve stenosis Procedures ER OBSVO Yasmani Bailey MD [facility] [place] [address] [facility] Referral ID Status Reason Start Date Expiration Date Visits Re quested Visits Authorized [id number] 1 1 Encounter Details Date Type Department Care Team (Late st Contact Info) Description 09/25/2023 11:14 AM EDT Anesthesia Event [place] [address] Rebecca Turner MD [facility] [place] [address] Anesthesia Record Procedure Summary Procedure Name Responsible Anesthesiologist Anesthesia Start Time Anesthesia Stop Time TRANSESOPHAGEAL ECHOCARDIOGRAM (WRVU 2.3) Rebecca Turner MD 09/25/23 1114 09/25/23 1213 Events Date Time Event Comment 09/25/2023 1114 AN Verify 1114 Start 1114 An Start Data 1122 1122 Anesthesia Ready 1126 An Induction 1132 Procedure Start 1139 Quick Note cardioversion 1206 an stop data 1213 Recovery or ICU Handoff Lorena ent care was transferred to the destination unit staff after review of the patient's medical history, current anesthetic/surgical status and plan, according to the Provider Handoff Checklist. 1213 Stop Meds Name Total Propofol 100 mg Propofol INF 227.39 mg heparin (porcine) 50 units/mL in dextros e 5% 500 mL infusion 722.5 Units PHENYLephrine 240 mcg ePHEDrine 10 mg lactated ringers 500 mL * Agents Name O2 Air N2O O2 Auxiliary Flowmeter 1 * Blood No blood administrations on file. Lines, Drains, and Airways Type Details Placement Removal Incision 01/29/22; 837; midl ine; sternal; vertical 01/29/22837 by Vincenzo Nick RN PIV 09/24/23; 1957; over -the-needle catheter system; 18 gauge; median cubital vein (antecubital fossa), left; Anatomical Landmarks; US Not Used; Charissa Sanches; tolerated well, appears comfortable 09/24/231957 by Jody Sanches documented in this encounter Social History Tobacco Use Types Packs/Day Years Used Date Smoking Tobacco: Former Cigarettes Q uit: 07/12/1977 Smokeless Tobacco: Never Alcohol Use Standard Drinks/Week Comments Not Currently 0 (1 standard drink = 0.6 oz pur e alcohol) [facility] Utilities Answer Date Recorded In the past 12 months has th e [employer], gas, oil, or water [employer] threatened to shut off services in your [...] time in the past 12 m [facility], were you homeless or living in a fdc (including now)? No 09/25/2023 DH IPV Inpatient [...] on file documented as of this encounter OR Notes * Anesthesia Postprocedure Evaluation - Rebecca Turner MD - 09/25/2023 1:43 PM EDT Department of Anesthesiology Post-procedure Note Patient: Gabi Luna Procedure Summary Date: 09/25/23 Room / Location: [facility] MINOR SURGERY 2 / [facility] MAIN OR Anesthesia Start: 1114 Anesthesia Stop: 1213 Procedures: TRANSESOPHAGEAL ECHOCARDIOGRAM (WRVU 2.3) CARDIOVERSION-ELECTIVE (WRVU 2) Diagnosis: (af) Surgeons: Arben Leon MD Responsible Provider: Rebecca Turner MD Anesthesia Type: general ASA Status: 3 All Anesthesia Providers: Anesthesiologist: Rebecca Turner MD CHIEF MERCHANDISING OFFICER: Germaine Capellan CRNA Vitals Value Taken Time BP 97/77 09/25/23 1245 Temp Pulse 53 09/25/23 1246 Resp 14 09/25/23 1246 SpO2 96 % 09/25/23 1259 Pain Level Vitals shown include unfiled device data. Patient Location: PACU/[facility] Level of Consciousness: Awake and Alert Pain Management: Satisfactory Analgesia PONV: None Cardiovascular Status: At Baseline and Hemodynamically Stable Respiratory Status: At Baseline and Room Air Postoperative Fluid Status: Intravascular EUvolemia Possible Anesthetic Complications: NONE apparent at time of evaluation Final Primary Anesthesia Type: MAC (The anesthetic type performed was the same as planned.) Comments: Rebecca Turner MD * Anesthesia Preprocedure Evaluation - Rebecca Turner MD - 09/25/2023 10:14 AM EDT Pre-Anesthesia Evaluation for: Gabi Luna a 62 y.o. female. Procedure(s): TRANSESOPHAGEAL ECHOCARDIOGRAM (WRVU 2.3) CARDIOVERSION-ELECTIVE (WRVU 2) Patient Active Problem List Diagnosis Date Noted ??? *Atrial fibrillation 09/25/2023 ??? (aortic stenosis) 01/29/2022 ??? BRCA negative 10/18/2019 ??? Ovarian cancer, lateral, stage IIIb high-grade serous/endometrioid, 07/20/2019 s/p FREDI/BSO/oment/PPALND/RSReanstomosis 08/10/2019 ??? HTN (hypertension) 07/13/2019 ??? Aortic valve stenosis 05/18/2019 ??? Chest pain 04/17/2018 ??? SVT (supraventricular tachycardia) 09/17/2017 ??? Bicuspid aortic valve 09/17/2017 ??? Hypothyroidism 09/10/2013 Past Medical History: Diagnosis Date ??? Allergic rhinitis ??? Anxiety ??? Aortic insufficiency due to bicuspid aortic valve ??? Aortic stenosis, moderate ??? Bicuspid aortic valve ??? BRCA negative 10/18/2019 no germline (heritable) mutation [...] RAD51D, SMAD4, SMARCA4, STK11, TP53, (sequencing an ??? H/O: 09/10/2013 x2 ??? Heart valve disease aortic stenosis ??? High blood pressure CONTROLLED WITH MEDICATION ??? History of appendectomy ??? Hyperlipidemia ??? Hypertension ??? Irregular heart beat SVT last episode 07-04-2019, does vagal maneuvers, and medication for breakthrough ??? Ovarian cancer, lateral, stage IIIb high-grade serous/endometrioid, 07/20/2019 s/p FREDI/BSO/oment/PPALND/RSReanstomosis 08/10/2019 ??? Ovarian cancer, lateral, stage IIIb high-grade serous/endometrioid, 07/20/2019 s/p FREDI/BSO/oment/PPALND/RSReanstomosis 08/10/2019 ??? Subclinical hypothyroidism ??? SVT (supraventricular tachycardia) Past Surgical History: Procedure Laterality Date ??? APPENDECTOMY 08/26/2013 ??? SECTION ??? IR MEDIPORT PLACEMENT 08/20/2019 IR Mediport Placement 08/20/2019 Jourdan Lopez PA [facility] INTERVENTIONL RAD ??? IR MEDIPORT REMOVAL 10/04/2020 IR Mediport Removal 10/04/2020 Mahesh Wick MD [facility] INTERVENTIONL RAD ? ? PRG CATH PLND CORONARY ART W/INJ FOR ANGIO W/R HEART CATH IMG S&I N/A 12/17/2021 CORONARY ANGIOGRAPHY; W RHC performed by Cristóbal Cuevas MD at [facility] CATH LABS ??? PRO GINA SALP-OOPH W/OMENTECT, FREDI, RAD DISSECT N/A 07/20/2019 @HYSTERECTOMY, FREDI, BSO, DEBULKING (WRVU 34.13) performed by Natalie Vallejo MD at [facility] MAIN OR ??? PRO COLONOSCOPY, REMV LESN, SNARE N/A 05/01/2021 COLONOSCOPY, POLYPECTOMY, REMOVAL LESION BY SNARE (WRVU 4.67) performed by Arlin Agudelo MDat [facility] ENDOSCOPY ??? PRO REPLACEMENT PROSTHETIC AORTIC VALVE OPEN W CARDIOPULMONARY BYPASS HOMOGRF/STENT N/A 01/29/2022 @REPLACE AORTIC VALVE, OPEN, W\CPB, W\PROSTHETIC VALVE (WRVU 41.32) performed by Efrain Felder MD at [facility] MAIN OR ??? PRO FABRIZIO VENT MUSC FOR IHSS N/A 01/29/2022 @VENTRICULOMYOTOMY (-MYECTOMY) FOR IDIOPATHIC HYPERTROPHIC SUBAORTIC STENOSIS (WRVU 36.56) performed by Efrain Felder MD at [facility] MAIN OR Social History Tobacco Use ??? Smoking status: Former Current packs/day: 0.00 Types: Cigarettes Quit date: 07/12/1977 Years since quittin.2 ??? Smokeless tobacco: Never Substance Use Topics ??? Alcohol use: Not Currently Social History Substance and Sexual Activity Drug Use Never Allergies Allergen Reactions ??? Paclitaxel Other (See Comments) and Palpitations 17 mls into Taxol C/O of palpitations/lower back pain.Drug stopped. Benadryl/Pepcid/Ativan given. Was able to start drug at half rate when symptoms subsided and increased rate every 30-60 mins. Was able to complete drug. Other Reaction(s): Other (See Comment) ??? Paroxetine ??? Penicillins Anaphylaxis PAT Penicillin Allergy Risk Assessment 01/07/2022: Moderate risk reaction. Patient referred to allergy clinic for pre-op testing. Patient refused referral. ??? Sertraline ??? Venlafaxine ??? Betamethasone Other Reaction(s): anxious, irritated, raceing heart Medications: MAR and/or home medications have been reviewed. Physical Exam: Preprocedure Vitals Current as of 09/25/23 1014 BP: 99/84 Pulse: 70 Resp: 18 SpO2: 100 Temp: 36.7 ??C (98.1 ??F) Height: 165.1 cm (5' 5) (09/25/23) Weight: 55.8 kg (123 lb 1.6 oz) (09/25/23) BMI: 20.48 IBW: 57 kg (125 lb 10.6 oz) Last edited 09/25/23 0810 by Airway Assessment: Mallampati: II TM distance: >3 FB Neck ROM: full Cardiovascular Assessment: Rhythm: irregular Pulmonary Assessment: pulmonary exam normal Dental Assessment: - normal exam Misc Assessment: Patient is wearing No contact(s). IV access: Peripheral line Last Filed Perioperative Cognitive Screening Value Time User CFS Frailty Score: 3 01/07/2022 11:00 AM Cristóbal Eddy RN Anesthesia Plan: ASA 3 general, with a(n) intravenous induction 62 yo 56kg F with history of bicuspid aortic valve stenosis s/p AVR/myotomy in 01/2022 currently admitted with symptomatic Afib presenting for TON/DCCV. TTE from 03/08/22 (post AVR) showed normal LV (EF ~70%), normal RV, normally functioning prostheticvalve, no JERRY or LVOT. PMH is otherwise notable for stage III ovarian cancer s/p TAHBSO in 06/2019, s/p adjuvant chemo, SVTs/p unsuccessful ablation, anxiety, HTN, HLD. Airway hx: Gr2v with Mac 3 DL, easy mask ventilation. Allergy to PCN (anaphylaxis) Plan is MAC with topical lidocaine and gentle titration of sedation. The patient was informed of the risks, benefits and alternatives of anesthesia. These risks included, but were not limited to, post-operative nausea and/or vomiting, pain, sore throat, dental/lip trauma, and other rare but serious complications such as major organ damage, awareness, severe allergicreactions, position-related nerve injuries, corneal abrasion/blindness and need blood transfusions.All questions were sought and answered. Consent was signed and placed in chart. Region - Other Informed Consent: Anesthetic plan and risks discussed with patient. Plan discussed with CHIEF MERCHANDISING OFFICER. Anesthesia Screening documented in this encounter Plan of Treatment Upcoming Encounters Date Type Department Care Team (Latest Contact Info) Description 12/25/2023 9:[address] [place] [phone] Xavier Malhotra MD [facility] [place] [address] 12/29/2023 Hospital Encounter Electrophys[place] [phone] Xavier Malhotra MD [facility] [place] [address] Paroxysmal atrial fibrillation 12/29/2023 7:30 AM EDT - 12/29/2023 12:00 PM EDT Surgery [place]rophys[place] [phone] Xavier Mlahotra MD [facility] [address] [place] [address] ELECTROPHYSIOLOGY PROCEDURE 01/14/2024 10:40 AM EDT Office Visit Cardiology at [address] [place] [address] Carmen Castaneda PA [facility] [address] Scheduled Procedures Name Priority Associated Diagnoses Date/Ti me TRANSESOPHAGEAL ECHO DURING CATH/EP PROCEDURE Paroxysmal atrial fibrillation 12/29/2023 7:30 AM EDT documented as of this encounter Goals Goal Patient Goal Type Associated Problems Recent Progress Patient-Stated? Author [facility] Medication Compliance and Understanding Patient Facing Action Plan Lani Love, [facility] Note: Maintain control of disease for as long as possible as assessed by tumor marker levels and scans in clinic every 3 to 6 months documented as of this encounter Visit Diagnoses Not on filedocumented in this encounter Administered Medications Inactive Administered Medications - up to 3 most recent administrations Medication Order MAR Action Action Date Dose Rate Site ePHEDrine sulfate (5 mg/mL) multi-dose injection Intravenous, PRN, Starting on Louisa 09/25/23 at 1156, Until Louisa 09/25/23 at 1213, Anesthesia Intra-op, Routine Given 09/25/2023 12:13 PM EDT 5 mg Given 09/25/2023 11:56 AM EDT 5 mg heparin (porcine) 50 units/mL in dextrose 5% 500 mL infusion 0-5,000 Units/hr (0-100 mL/hr), Intravenous, CONTINUOUS, Starting on Louisa 09/25/23 at 0615, Until Luoisa 09/25/23 at 1350, Begin infusion at 850 [...] 6:30 AM EDT 850 Units/hr 17 mL/hr lactated ringers infusion Intravenous, CONTINUOUS PRN, Starting on Louisa 09/25/23 at 1114, Until Louisa 09/25/23 at 1213, Anesthesia Intra-op New Bag 09/25/2023 11:14 AM EDT PHENYLephrine in NS (PF) (JESUS-SYNEPHRINE) 0.8 mg/10 mL (80 mcg/mL) multi-dose injection Syringe Intravenous, PRN, Starting on Louisa 09/25/23 at 1137, Until Louisa 09/25/23 at 1213, Anesthesia Intra-op, Routine Given 09/25/2023 11:43 AM EDT 80 mcg Given 09/25/2023 11:38 AM EDT 80 mcg Given 09/25/2023 11:37 AM EDT 80 mcg propofoL (Diprivan) (10 mg/mL) infusion Intravenous, CONTINUOUS PRN, Starting on Louisa 09/25/23 at 1126, Until Louisa 09/25/23 at 1213, Anesthesia Intra-op, Routine Rate/Dose Change 09/25/2023 11:58 AM EDT 50 mcg/kg/min 16.74 mL/hr Rate/Dose Change 09/25/2023 11:43 AM EDT 75 mcg/kg/min 25. 11 mL/hr Rate/Dose Change 09/25/2023 11:34 AM EDT 100 mcg/kg/min 33 .48 mL/hr propofoL (Diprivan) 10 mg/mL bolus injection (Anesthesia) Intravenous, PRN, Starting on Louisa 09/25/23 at 1132, Until Louisa 09/25/23 at 1213, Anesthesia Intra-op Given 09/25/2023 11:35 AM EDT 50 mg Given 09/25/2023 11:33 AM EDT 20 mg Given 09/25/2023 11:32 AM EDT 30 mg documented in this encounter Care Teams Burn Nurse Relationship Specialty Start Date End Date Evelyne Hunt APRN [address] [place] [address] PCP - General Internal Medicine 09/23/17 documented as of this encounter
--- OUTSIDE RECORDS SUMMARY | 2023-12-01 02:09 | XMS_ITS | Encounter Summary ---
Author Organization [facility] [place] [address] Care Team Providers Care Shared Services Manager Name Role Phone MarileeEvelyne APRN Primary Care Provider [phone] Encounter Details Date Type Department Care Team (Late st Contact Info) Description 12/02/2022 Telephone Cardiology at [address] [phone] Praveena Petty, RN Social History Tobacco Use [...] Telephone Encounter - Praveena Petty RN - 12/02/2022 1:15 PM EDT Patient called to report that over the past few weeks so has felt dizziness and LH but on further description it may be vertigo- she senses the room spinning even at rest. She also has felt faint butno LOC. It comes and goes. No recent illnesses or fever, chills reported, no appetite changes, she feels she does well with fluid intake daily. She saw her PCP last week who did an assessment and didn't find anything particular going on, labs at [facility] were reportedly OK and patient will call to get those faxed to the team. She sees her Oncologist next week ( Q 3 months). She had a friend/neighbor who is a nurse check her BP and HR: 120/80, HR 54-56. She is still taking her Metoprolol. Before this she was feeling healthy overall. Patient was transferred to scheduling but schedule is not open yet for February per Jose Daniel ( and no mid levels available). She will be put on the call list. Praveena Vega RNwind operations manager Cardiovascular Clinic General Team-Green documented in this encounter Plan of Treatment Upcoming Encounters Date Type Department Care Team (Latest Contact Info) Description 12/25/2023 9:[address] [place] [phone] Xavier Malhotra MD [facility] [place] [address] 12/29/2023 Hospital Encounter [place] [phone] Xavier Malhotra MD [facility] [place] [address] Paroxysmal atrial fibrillation 12/29/2023 7:30 AM EDT - 12/29/2023 12:00 PM EDT Surgery [place] [phone] Xavier Malhotra MD [facility] [place] [address] ELECTROPHYSIOLOGY PROCEDURE 01/14/2024 10:40 AM EDT Office Visit Cardiology at [address] [phone] Carmen Castaneda PA [facility] [place] [address] Scheduled Procedures Name Priority Associated Diagnoses Date/Ti me TRANSESOPHAGEAL ECHO DURING CATH/EP PROCEDURE Paroxysmal atrial fibrillation 12/29/2023 7:30 AM EDT documented as of this encounter Goals Goal Patient Goal Type Associated Problems Recent Progress Patient-Stated? Author DH Home Medication Compliance and Understanding Patient Facing Action Plan No Lani Vargas, [facility] Note: Maintain control of disease for as long as possible as assessed by tumor marker levels and scans in clinic every 3 to 6 months documented as of this encounter Visit Diagnoses Not on filedocumented in this encounter Care Teams Shared Services Manager Relationship Specialty Start Date End Date Evelyne Hunt APRN [address] [place] [address] PCP - General Internal Medicine 09/23/17 documented as of this encounter
--- OUTSIDE RECORDS SUMMARY | 2023-12-01 02:09 | XMS_ITS | Encounter Summary ---
Author Organization [facility] [place] [address] Care Team Providers Care Bill Collector Name Role Phone Evelyne Hunt Dat STEVEN Primary Care Provider [phone] Encounter Details Date Type Department Care Team (Late st Contact Info) Description 09/13/2023 12:05 AM EDT Ancillary Procedure [place] [address] Jody De Santiago MD [address] [place] [address] [address] [place], [place] [address] Social History Tobacco Use Types Packs/Day Years [...] 9:[address] [place] [address] Xavier Malhotra MD [facility] [place] [address] 12/29/2023 Hospital Encounter [place] [address] Xavier Malhotra MD [facility] [place] [address] Paroxysmal atrial fibrillation 12/29/2023 7:30 AM EDT - 12/29/2023 12:00 PM EDT Surgery [place] [phone] Xavier Malhotra MD [facility] [place] [address] ELECTROPHYSIOLOGY PROCEDURE 01/14/2024 10:40 AM EDT Office Visit Cardiology at [address] [phone] Carmen Castaneda PA [facility] [place] [place] [address] Scheduled Procedures Name Priority Associated Diagnoses Date/Ti me TRANSESOPHAGEAL ECHO DURING CATH/EP PROCEDURE Paroxysmal atrial fibrillation 12/29/2023 7:30 AM EDT documented as of this encounter Goals Goal Patient Goal Type Associated Problems Recent Progress Patient-Stated? Author Home Medication Compliance and Understanding Patient Facing Action Plan Lani Love, [facility] Note: Maintain control of disease for as long as possible as assessed by tumor marker levels and scans in clinic every 3 to 6 months documented as of this encounter Procedures Procedure Name Priority Date/Time Associated Diagnosis Comments FILM LIBRARY STORAGE ONLY DX CHEST Routine 09/13/2023 12:05 AM EDT documented in this encounter Results * Film Library- Storage Only DX Chest (09/13/2023 12:05 AM EDT) Narrative MART[facility]N - 09/14/2023 12:46 AM EDT This exam is auto-finalizing. It's purpose is for storage only. Jody De Santiago MD IMG FILM LIBRARY ORD ERABLES [place], [place] documented in this encounter Visit Diagnoses Not on filedocumented in this encounter Care Teams Bill Collector Relationship Specialty Start Date End Date Evelyne Hunt, TENISHA [address] [place] [address] PCP - General Internal Medicine 09/23/17 documented as of this encounter
--- OUTSIDE RECORDS SUMMARY | 2023-12-01 02:09 | XMS_ITS | Encounter Summary ---
Author Organization [facility] [place] [address] Care Team Providers Care Sr Vice President Name Role Phone Kiki Huntyce Dat STEVEN Primary Care Provider [phone] Encounter Details Date Type Department Care Team (Late st Contact Info) Description 09/14/2023 External Results [place] [address] Social History Tobacco Use Types Packs/Day Years [...] 9:[address] [place] [address] Xavier Malhotra MD [facility] [place] [address] 12/29/2023 Hospital Encounter Electrophys[place] [address] Xavier Malhotra MD [facility] [place] [address] Paroxysmal atrial fibrillation 12/29/2023 7:30 AM EDT - 12/29/2023 12:00 PM EDT Surgery [place]rophys[place] [phone] Xavier Malhotra MD [facility] [place] [address] ELECTROPHYSIOLOGY PROCEDURE 01/14/2024 10:40 AM EDT Office Visit Cardiology at [address] [phone] Carmen Castaneda PA [facility] [place] [address] Scheduled Procedures Name Priority Associated Diagnoses Date/Ti me TRANSESOPHAGEAL ECHO DURING CATH/EP PROCEDURE Paroxysmal atrial fibrillation 12/29/2023 7:30 AM EDT documented as of this encounter Goals Goal Patient Goal Type Associated Problems Recent Progress Patient-Stated? Author Home Medication Compliance and Understanding Patient Facing Action Plan No Lani Vargas, [facility] Note: Maintain control of disease for as long as possible as assessed by tumor marker levels and scans in clinic every 3 to 6 months documented as of this encounter Procedures Procedure Name Priority Date/Time Associated Diagnosis Comments ECG SCAN Routine 09/14/2023 1:03 AM EDT documented in this encounter Results * Scan Doc: ECG (09/14/2023 1:03 AM EDT) Historical Provider MD [facility] Laura SCAN EX T ORDR/RSLT documented in this encounter Visit Diagnoses Not on filedocumented in this encounter Care Teams Sr Vice President Relationship Specialty Start Date End Date Evelyne Hunt APRN [address] [place] [address] PCP - General Internal Medicine 09/23/17 documented as of this encounter
--- OUTSIDE RECORDS SUMMARY | 2023-12-01 02:09 | XMS_ITS | Encounter Summary ---
Author Organization [facility] [place] [address] Care Team Providers Care Air Pumper Name Role Phone Kiki Huntyce Dat STEVEN Primary Care Provider [phone] Encounter Details Date Type Department Care Team (Late st Contact Info) Description 09/13/2023 Ancillary Procedure [place] [address] Jody De Santiago MD [address] [place] [address] [address] [place], [place] [address] Social History Tobacco Use Types Packs/Day Years [...] 9:[address] [place] [address] Xavier Malhotra MD [facility] [place] [address] 12/29/2023 Hospital Encounter [place] [address] Xavier Malhotra MD [facility] [place] [address] Paroxysmal atrial fibrillation 12/29/2023 7:30 AM EDT - 12/29/2023 12:00 PM EDT Surgery Electrophys[place] [phone] Xavier Malhotra MD [facility] [place] [address] ELECTROPHYSIOLOGY PROCEDURE 01/14/2024 10:40 AM EDT Office Visit Cardiology at [address] [phone] Carmen Castaneda PA [facility] [place] [address] Scheduled Procedures Name Priority Associated Diagnoses Date/Ti me TRANSESOPHAGEAL ECHO DURING CATH/EP PROCEDURE Paroxysmal atrial fibrillation 12/29/2023 7:30 AM EDT documented as of this encounter Goals Goal Patient Goal Type Associated Problems Recent Progress Patient-Stated? Author Home Medication Compliance and Understanding Patient Facing Action Plan Lani Love, [facility] Note: Maintain control of disease for as long as possible as assessed by tumor marker levels and scans in clinic every 3 to 6 months documented as of this encounter Procedures Procedure Name Priority Date/Time Associated Diagnosis Comments FILM LIBRARY STORAGE ONLY CT CHEST Routine 09/13/2023 12:00 AM EDT documented in this encounter Results * Film Library- Storage Only CT Chest (09/13/2023 12:00 AM EDT) Narrative [facility] - 09/14/2023 12:46 AM EDT This exam is auto-finalizing. It's purpose is for storage only. Jody De Santiago MD IMG FILM LIBRARY ORD ERABLES [place], [place] documented in this encounter Visit Diagnoses Not on filedocumented in this encounter Care Teams Air Pumper Relationship Specialty Start Date End Date Evelyne Hunt APRN [address] [place] [address] PCP - General Internal Medicine 09/23/17 documented as of this encounter
--- OUTSIDE RECORDS SUMMARY | 2023-12-01 02:09 | XMS_ITS | Encounter Summary ---
Author Organization [facility] [place] [address] Care Team Providers Care Coil Shaper Name Role Phone Kiki Huntyce Dat STEVEN Primary Care Provider [phone] Encounter Details Date Type Department Care Team (Latest Contact Info) Description 01/06/2023 Travel Social History Tobacco Use Types Packs/Day [...] AM EDT [place]ment [place] [address] Xavier Malhotra MD [facility] [place] [address] 12/29/2023 Hospital Encounter Electrophys[place] [phone] Xavier Malhotra MD [facility] [place] [place] [address] Paroxysmal atrial fibrillation 12/29/2023 7:30 AM EDT - 12/29/2023 12:00 PM EDT Surgery [place]rophys[place] [address] Xavier Malhotra MD [facility] [place] [address] ELECTROPHYSIOLOGY PROCEDURE 01/14/2024 10:40 AM EDT Office Visit Cardiology at [address] [phone] Carmen Castaneda PA [facility] [place] [address] Scheduled Procedures Name Priority Associated Diagnoses Date/Ti me TRANSESOPHAGEAL ECHO DURING CATH/EP PROCEDURE Paroxysmal atrial fibrillation 12/29/2023 7:30 AM EDT documented as of this encounter Goals Goal Patient Goal Type Associated Problems Recent Progress Patient-Stated? Author DH Home Medication Compliance and Understanding Patient Facing Action Plan No Lani Vargas, [facility] Note: Maintain control of disease for as long as possible as assessed by tumor marker levels and scans in clinic every 3 to 6 months documented as of this encounter Visit Diagnoses Not on filedocumented in this encounter Care Teams Coil Shaper Relationship Specialty Start Date End Date Evelyne Hunt APRN [address] [place] [address] PCP - General Internal Medicine 09/23/17 documented as of this encounter
--- OUTSIDE RECORDS SUMMARY | 2023-12-01 02:09 | XMS_ITS | Encounter Summary ---
Author Organization [facility] Address [facility] [place] [address] Care Team Providers Care Feeder/Folder Name Role Phone Evelyne Hunt APRN Primary Care Provider [phone] Encounter Details Date Type Department Care Team (Late st Contact Info) Description 07/16/2023 10:40 AM EDT Office Visit Cardiology at [address] [phone] Carmen Castaneda PA [facility] [place] [address] Aortic valve stenosis, etiology of cardiac valve disease unspecified Social History Tobacco Use Types Packs/Day Years [...] Sign Reading Time Taken Comments Blood Pressure 142/88 07/16/2023 10:35 AM EDT Pulse 60 07/16/2023 10:35 AM EDT Temperature - - Respiratory Rate - - Oxygen Saturation 99% 07/16/2023 10:35 AM EDT Inhaled Oxygen Concentration - - Weight 56.9 kg (125 lb 6.4 oz) 07/16/2023 10:35 AM EDT Height 165.1 cm (5' 5) 07/16/2023 10:35 AM EDT Body Mass Index 20.87 07/16/2023 10:35 AM EDT documented in this encounter Patient Instructions * Patient Instructions* Carmen Castaneda PA - 07/16/2023 10:40 AM EDT Follow up in one year. Plan for echo in 4 years Plan for a lipid panel at your PCP office Keep up the diet, exercise, lifestyle changes Call us if any change in your symptoms [phone] ; option 1 scheduling and option 4 for nursing documented in this encounter Progress Notes * Carmen Castaneda PA - 07/16/2023 10:40 AM EDT Images from the original note were not included. [facility] [place] [address] CARDIOVASCULAR MEDICINE OUTPATIENT VISIT Gabi Eber Luna [id number] 07/16/2023 REFERRING PROVIDER: Evelyne Hunt PROBLEM LIST: Patient Active Problem List Diagnosis (aortic stenosis) BRCA negative no germline [...] lateral, stage IIIb high-grade serous/endometrioid, 07/20/2019 s/p FRDEI/BSO/oment/PPALND/RSReanstomosis HTN (hypertension) Aortic valve stenosis Chest pain SVT (supraventricular tachycardia) Bicuspid aortic valve Hypothyroidism HISTORY OF PRESENT ILLNESS: Gabi Luna is a 62 y.o. female with PMHx of ovarian cancer, severe , moderate AI s/p bp AVR (01/2022) as well as SVT status post unsuccessful ablation previously followed by Dr. Subramanian. Presents today for follow up. Last seen by Dr. Franco in 04/2022 and at that time reported that she was feeling well without specific complaints. Completed cardiac rehab at [facility] 3 days/week. TODAY: Feeling incredibly well Energy has greatly improved post valve repair Is active, hiking, cross country skiing, walking Denies LE swelling, orthopnea, SOB, MIRANDA Diet is varied with fruits, vegetables, limited sweets No tobacco, minimal alcohol Mother and brother with need for AV repairs, both brothers requiring cardiac stenting REVIEW OF SYSTEMS: Review of Systems Constitutional: Negative for activity change, appetite change, chills, diaphoresis, fatigue, fever and unexpected weight change. Respiratory: Negative for apnea, cough, choking, chest tightness, shortness of breath, wheezing andstridor. Cardiovascular: Negative for chest pain, palpitations and leg swelling. Gastrointestinal: Negative for abdominal distention, diarrhea, nausea and vomiting. Neurological: Negative for dizziness, tremors, speech difficulty, weakness and headaches. PAST MEDICAL HISTORY: Past Medical History: Diagnosis [...] Social History Tobacco Use Smoking status: Former Types: Cigarettes Quit date: 07/12/1977 Years since quittin.0 Smokeless tobacco: Never Substance Use Topics Alcohol use: Not Currently MEDICATIONS: Outpatient Medications Marked as Taking for the 07/16/23 encounter (Office Visit) with Carmen Castaneda PA Medication Sig Dispense Refill metoprolol succinate XL (Toprol-XL) 50 mg ER 24 hr tablet TAKE ONE TABLET BY MOUTH EVERY DAY 90 tablet 1 aspirin EC 81 mg EC (DR) tablet daily. clobetasoL (Temovate) 0.05 % Ointment Apply topically daily. 30 g 0 cholecalciferol, Vitamin D3, 50 mcg (2,000 unit) Capsule Take by mouth. multivitamin Capsule Take 1 capsule by mouth daily. traZODone (Desyrel) 50 mg Tablet TAKE ONE TO TWO TABLETS BY MOUTH AT BEDTIME NEEDED atorvastatin (Lipitor) 10 mg Tablet Take 10 mg by mouth daily. buPROPion XL (Wellbutrin XL) 300 mg Tablet Extended Release 24 hr TK 1 T PO QAM ALLERGIES: Paclitaxel, Paroxetine, Penicillins, Sertraline, Venlafaxine, and Betamethasone PHYSICAL EXAMINATION: Vital Signs: BP 142/88 Pulse 60 Ht 165.1 cm (5' 5) Wt 56.9 kg (125 lb 6.4 oz) SpO2 99% BMI 20.87 kg/m?? Exam Details: General: Pleasant female in no acute distress. HEENT: No scleral icterus, moist mucous membranes. Neck: JVP <8 cm of water. No carotid bruits appreciated. Heart: Regular rate and rhythm, normal S1/S2, [...] 3 wbc, hgb, hct plt Recent Labs 10/07/22 08 WBC 6.4 HGB 15.0 HCT 42.3 PLATELET 218 Last 3 Lytes Recent Labs 10/07/22818 NA 139 K 4.5 CL 103 CO2 26 BUN 13 CREATININE 0.80 Lipid Panel TTE 02/2022 Interpretation Summary Left ventricle is [...] to normal sinus rhythm with normal rates. [facility] 11/2021 Hemodynamics: Right Heart Pressures Resting: Syst [...] performed. Conclusions: * Nonobstructive coronary artery disease ASSESSMENT AND PLAN: 62 y.o. female with PMHx of ovarian cancer, [...] so her amiodarone and Eliquis were discontinued. Today she is feeling well. Some episodes of SVT but not frequent and not cumbersome. Plan to keep all medications as is and will follow up with routine exam in one year. # Severe s/p bp AVR (23 mm Inspiris) # Hx of bicuspid aortic valve - Prior to surgery-- SUDHAKAR: 0.7 cm2, M mmHg, Vmax: 4.6 m/sec - Recent TTE reveals M mmHg with DVI of 0.65 (02/2022) - Repeat TTE in 2026 for 5 year surveillance as per 2020 ACC/AHA valve guidelines - continue ASA 81mg daily # Septal thickening w/ JERRY s/p myectomy - prior to surgery-- MG at rest: 5 mmHg; MG with Valsalva: 34 mmHg - MG during surgery was 7 mmHg; no gradient on TTE (02/2022) - continue metoprolol succinate 50mg daily # Atrial fibrillation, paroxysmal, post operative - recent Zio revealed no AF (02/2022) - not currently on DOAC or amiodarone # ASCVD, non-obstructive - continue ASA, statin, BB - follow up lipid panel to be obtained with PCP # SVT - No SVT during EPS Return to clinic in one year. Thank you for allowing me to participate in the care of your patient.Please do not hesitate to contact me with any questions or concerns. [facility] [address] Patient Instructions Follow up in one year Plan to get echocardiogram at that visit Plan for a lipid panel at your PCP office Keep up the diet, exercise, lifestyle changes Call us if any change in your symptoms [phone] ; option 1 scheduling and option 4 for nursing documented in this encounter Plan of Treatment Upcoming Encounters Date Type Department Care Team (Latest Contact Info) Description 12/25/2023 9:[address] [place] [phone] Xavier Malhotra MD [facility] [place] [address] 12/29/2023 Hospital Encounter [place]rophys[place] [phone] Xavier Malhotra MD [facility] [place] [address] Paroxysmal atrial fibrillation 12/29/2023 7:30 AM EDT - 12/29/2023 12:00 PM EDT Surgery [place]rophys[place] [phone] Xavier Malhotra MD [facility] [place] [address] ELECTROPHYSIOLOGY PROCEDURE 01/14/2024 10:40 AM EDT Office Visit Cardiology at [address] [phone] Carmen Castaneda PA [facility] [place] [address] Scheduled Procedures Name Priority Associated Diagnoses Date/Ti me TRANSESOPHAGEAL ECHO DURING CATH/EP PROCEDURE Paroxysmal atrial fibrillation 12/29/2023 7:30 AM EDT documented as of this encounter Goals Goal Patient Goal Type Associated Problems Recent Progress Patient-Stated? Author DH Home Medication Compliance and Understanding Patient Facing Action Plan Lani Love, [facility] Note: Maintain control of disease for as long as possible as assessed by tumor marker levels and scans in clinic every 3 to 6 months documented as of this encounter Visit Diagnoses Diagnosis Aortic valve stenosis, etiology of cardiac valve disease unspecified Paroxysmal atrial fibrillation Atrial fibrillation Paroxysmal atrial fibrillation Atrial fibrillation documented in this encounter Care Teams Feeder/Folder Relationship Specialty Start Date End Date Evelyne Hunt APRN [address] [place] [address] PCP - General Internal Medicine 09/23/17 documented as of this encounter
--- OUTSIDE RECORDS SUMMARY | 2023-12-01 02:09 | XMS_ITS | Encounter Summary ---
[place] [address] Care Team Providers Care Import/Export Clerk Name Role Phone Evelyne Hunt APRN Primary Care Provider [phone] Encounter Details Date Type Department Care Team (Latest Contact Info) Description 05/05/2023 11:10 AM EST - 05/05/2023 11:59 PM [facility] Hospital Encounter [place] [address] Ovarian cancer, unspecified laterality; History of ovarian cancer Discharge Disposition: Home [...] tablet daily. 02/22/2022 clobetasoL (Temovate) 0.05 % OintmentIndications:Li garcia sclerosus et atrophicus Apply topically daily. [...] hr TK 1 T PO QAM 10/01/2019 metoprolol succinate XL (Toprol-XL) 50 mg ER 24 hr tablet TAKE ONE TABLET BY MOUTH EVERY DAY 90 tablet 1 05/05/2023 09/25/2023 documented as of this encounter Plan of Treatment Upcoming Encounters Date Type Department Care Team (Latest Contact Info) Description 12/25/2023 9:[address] [place] [phone] Xavier Malhotra MD [facility] [place] [address] 12/29/2023 Hospital Encounter [place] [phone] Xavier Malhotra MD [facility] [place] [address] Paroxysmal atrial fibrillation 12/29/2023 7:30 AM EDT - 12/29/2023 12:00 PM EDT Surgery [place] [phone] Xavier Malhotra MD [facility] [place] [address] ELECTROPHYSIOLOGY PROCEDURE 01/14/2024 10:40 AM EDT Office Visit Cardiology at [address] [phone] Carmen Castaneda PA [facility] [place] [address] Scheduled Orders Name Type Priority Associated Diagnoses Orde r Schedule Cancer Antigen 125 Lab Routine History of ovarian cancer 1 Occurrences starting 05/05/2023 until 05/05/2023 Scheduled Procedures Name Priority Associated Diagnoses Date/Ti me TRANSESOPHAGEAL ECHO DURING CATH/EP PROCEDURE Paroxysmal atrial fibrillation 12/29/2023 7:30 AM EDT documented as of this encounter Goals Goal Patient Goal Type Associated Problems Recent Progress Patient-Stated? Author DH Home Medication Compliance and Understanding Patient Facing Action Plan No Lani Vargas, [facility] Note: Maintain control of disease for as long as possible as assessed by tumor marker levels and scans in clinic every 3 to 6 months documented as of this encounter Procedures Procedure Name Priority Date/Time Associated Diagnosis Comments CANCER ANTIGEN 125 Routine 05/05/2023 11 :20 AM EST Ovarian cancer, unspecified laterality documented in this encounter Results * Cancer Antigen 125 (05/05/2023 11:20 AM EST) CA 125 11.1 <=38.1 unit/mL [facility] Comment: CA 125 Reference Interval ??Postmenopausal: [...] Laird MD CHEMISTRY ORDERABLES Performing Organization Address City/State/[facility] Co de Phone Number [facility] [place] [address] documented in this encounter Visit Diagnoses Diagnosis Ovarian cancer, unspecified laterality History of ovarian cancer Personal history of malignant neoplasm of ovary Paroxysmal atrial fibrillation Atrial fibrillation Paroxysmal atrial fibrillation Atrial fibrillation documented in this encounter Care Teams Import/Export Clerk Relationship Specialty Start Date End Date Evelyne Hunt APRN [address] [place] [address] PCP - General Internal Medicine 09/23/17 documented as of this encounter
--- OUTSIDE RECORDS SUMMARY | 2023-12-01 02:09 | XMS_ITS | Encounter Summary ---
Author Organization [facility] [place] [address] Care Team Providers Care Utilities Ground Worker Name Role Phone Evelyne Hunt APRN Primary Care Provider [phone] Encounter Details Date Type Department Care Team (Late st Contact Info) Description 01/06/2023 8:20 AM EDT Office Visit [place] [phone] Iram Laird MD [facility] [place] [address] Ovarian cancer, unspecified laterality Social History Tobacco [...] Sign Reading Time Taken Comments Blood Pressure 128/85 01/06/2023 9:10 AM EDT Pulse 52 01/06/2023 9:10 AM EDT Temperature 35.8 ??C (96.4 ??F) 01/06/2023 9:10 AM ED T Respiratory Rate 14 01/06/2023 9:10 AM EDT Oxygen Saturation 99% 01/06/2023 9:10 AM EDT Inhaled Oxygen Concentration - - Weight 58.6 kg (129 lb 3.2 oz) 01/06/2023 9:10 A M EDT Height - - Body Mass Index 21.5 05/07/2022 12:46 PM EST documented in this encounter Progress Notes * Iram Laird MD - 01/06/2023 8:20 AM EDT Division of [place] [address] 01/06/2023 Follow-up Visit: Patient Active Problem List Diagnosis Code Hypothyroidism E03.9 SVT (supraventricular tachycardia) I47.1 Bicuspid aortic valve Q23.1 Chest pain R07.9 Aortic valve stenosis I35.0 HTN (hypertension) I10 Ovarian cancer, lateral, stage IIIb high-grade serous/endometrioid, 07/20/2019 s/p FREDI/BSO/oment/PPALND/RSReanstomosis C56.9 BRCA negative Z13.71 (aortic stenosis) I35.0 History anemia necessitated transfusion X 2 01/2020 Oncology history: 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 07/20/19 TAHBSO/omentectomy/rectosigmoid resection/PPALND. R0. CA125 350. 5/03/10 #1 Taxol/carbo/Avastin - 01/08 #6 12/2019 Patient started PARP inhibitors 200 mg bid 04/11: CA125 14.9 10/07/22: CA125 10.9, Stopped PARP inhibitor Tumor Testing: The CancerNext analysis of Ivana's [...] only). 01/25/20: Niraparib maintenance, 200-->100 mg qhs Last visit: 10/07/22 Subjective: Gabi Luna returns to the office today for a cancer surveillance visit. She stopped taking her PARP inhibitor the day of her last visit with Dr. Laird on 10/07/22. She went to the lab prior to today's appointment to obtain CA 125. Fatigue: Reports less since coming off PARPi Pain: No pelvic pain, pelvic pressure or abdominal fullness Diet: Tolerating regular diet without N/V. Bowels: Regular, no bloating Urinary: No problems Neuropathy: Longstanding neuropathy is stable Ambulation: Very active this summer with hiking, walking, and pickleball. Notes that if she has lost some weight, it is likely due to all of her activity. Rash: None Continues to have dryness with sexual intercourse. Pertinent history: On 01/29/22, she underwent an aortic valve replacement and septal for progressive aortic stensosis , in the setting of congenital bicuspid valve. She has recovered from this well and is off of warfarin and back to driving. 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 She reports no changes to her medical history, surgical history, medications, allergies since her last visit. ROS - Negative for fever, chills, SOB, chest pain, AUB Health care maintenance Mammogram - [facility] Colonoscopy - 04/2021 DATA - Latest Reference Range & Units 01/07/22 12:14 04/08/22 13:17 10/07/22 08:19 CA 125 <=38.1 unit/mL 10.8 14.9 10.9 CA 125 pending today Objective: Vitals: 01/06/23 0910 BP: 128/85 Patient Position: Sitting Pulse: 52 Resp: 14 Temp: 35.8 ??C (96.4 ??F) TempSrc: Temporal SpO2: 99% Weight: 58.6 kg (129 lb 3.2 oz) Body mass index is 21.5 kg/m??. Body surface area is 1.64 meters squared. Physical Exam Constitutional: General: She is not in acute distress. Appearance: Normal appearance. She is well-developed. She is not ill-appearing. Comments: Here with her . Eyes: General: No scleral icterus. Right eye: No discharge. Left eye: No discharge. Cardiovascular: Rate and Rhythm: Normal rate and regular rhythm. Heart sounds: Murmur heard. No friction rub. No gallop. Pulmonary: Effort: Pulmonary effort is normal. No respiratory distress. Breath sounds: Normal breath sounds. No wheezing, rhonchi or rales. Abdominal: General: Abdomen is flat. There is no distension. Palpations: Abdomen is soft. There is no mass. Tenderness: There is no abdominal tenderness. There is no rebound. Comments: Vertical midline scar Musculoskeletal: General: No tenderness. Cervical back: Neck supple. Lymphadenopathy: Cervical: No cervical adenopathy. Upper Body: Right upper body: No supraclavicular adenopathy. Left upper body: No supraclavicular adenopathy. Skin: General: Skin is warm and dry. Coloration: Skin is not pale. Findings: No erythema or rash. Neurological: Mental Status: She is alert. Coordination: Coordination normal. Psychiatric: Behavior: Behavior normal. : External genitalia/vulva- normal, no lesions Bartholin's- normal, no masses or tenderness Urethral meatus- normal size, no prolapse, no lesions Vagina- no lesions palpated Rectal/perineum- no nodularity Assessment and Plan: Gabi Luna is a 62 y.o. 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 In 2019 she underwent FREDI BSO Debulking, followed by 6 cycles of Taxol/Carbo/Avastin. She subsequently did almost 3 years of PARPi. She stopped the PARPi the day of her last visit on 10/07/2022 with aplan for d2qqbai visits and CA-125. Today she is doing well and has no evidence of recurrent cancer. CA125 was drawn this morning and pending. We will message her with the results when they become available. Based on reassuring exam today, we will continue with surveillance physical exam and CA125 every 3 months. Signs and symptoms of recurrent disease reviewed. - RTC 3 months - q3 month CA 125 Eleni Ng DO, PGY-2 Obstetrics and Gynecology 01/06/23 I personally spent a total of 30 minute visit independently reviewing relevant interval data including imaging, lab tests, counseling and coordinating care for Gabi Luna. We discussed the plan and rationale for ongoing surveillance. Iram Laird MD documented in this encounter Plan of Treatment Upcoming Encounters Date Type Department Care Team (Latest Contact Info) Description 12/25/2023 9:[address] Scan at [place] [phone] Xavier Malhotra MD [facility] [place] [address] 12/29/2023 Hospital Encounter [place] [address] Xavier Malhotra MD [facility] [address] [place] [address] Paroxysmal atrial fibrillation 12/29/2023 7:30 AM EDT - 12/29/2023 12:00 PM EDT Surgery Electrophysiology Lab at [address] Xavier Malhotra MD [facility] [place] [address] ELECTROPHYSIOLOGY PROCEDURE 01/14/2024 10:40 AM EDT Office [place] [address] Carmen Castaneda PA [facility] [place] [address] Scheduled Procedures Name Priority Associated Diagnoses Date/Ti me TRANSESOPHAGEAL ECHO DURING CATH/EP PROCEDURE Paroxysmal atrial fibrillation 12/29/2023 7:30 AM EDT documented as of this encounter Goals Goal Patient Goal Type Associated Problems Recent Progress Patient-Stated? Author DH [place] Medication Compliance and Understanding Patient Facing Action Plan Lani Love, [facility] Note: Maintain control of disease for as long as possible as assessed by tumor marker levels and scans in clinic every 3 to 6 months documented as of this encounter Visit Diagnoses Diagnosis Ovarian cancer, unspecified laterality Paroxysmal atrial fibrillation Atrial fibrillation Paroxysmal atrial fibrillation Atrial fibrillation documented in this encounter Care Teams Utilities Ground Worker Relationship Specialty Start Date End Date Evelyne Hunt APRN [address] [place] [address] PCP - General Internal Medicine 09/23/17 documented as of this encounter
--- OUTSIDE RECORDS SUMMARY | 2023-12-01 02:09 | XMS_ITS | Encounter Summary ---
Author Organization [facility] Address [facility] [place] [address] Care Team Providers Care Counseling Center Manager Name Role Phone MarileeEvelyne APRN Primary Care Provider [phone] Encounter Details Date Type Department Care Team (Late st Contact Info) Description 10/18/2022 Specialty [place] [phone] Lani Vargas [facility] Social History Tobacco Use Types Packs/Day Years [...] as of this encounter Progress Notes * Lani Vargas RPH - 10/18/2022 1:22 PM EDT Clinical Management Plan: Discontinuation of Therapy Specialty Services (Optional) If modifying Specialty services, patient unenrolls from: n/a Specialty Pharmacy Consultation; Lani Vargas RPH Comprehensive Medication Management (CMM) Gabi Benitoyvonne [address] [facility] [address] Telephone Information: Work Phone Not on file. Medication: Zejula Reason for discontinuation or transfer: Pt tolerated 2 years of goal oral chemotherapy Approximate date of discontinuation or transfer: 10/18/22 Patient's response to therapy: Labs remained stable (CA 125) Summary of services provided by D- Specialty: Counseling, billing assistance, refill reminders Summary of on-going needs: follow up scheduled Referral for additional services (if applicable): N/A Instructions provided to patient about discharge/transfer: Yes, per specialist Provider aware of discontinuation or transfer: Yes Patient understands no changes to current drug regimen were made at the appointment and that [facility] is[facility] recommendations (summary located at top of note) for provider review and follow up. Lani Vargas RPH 10/18/22 1:23 PM documented in this encounter Miscellaneous Notes * Addendum Note - Adilene Brown RPH - 10/18/2022 1:22 PM EDTAddended by: ADILENE BROWN on: 11/05/2022 08:57 AM Modules accepted: Orders documented in this encounter Plan of Treatment Upcoming Encounters Date Type Department Care Team (Latest Contact Info) Description 12/25/2023 9:[address] [place] [address] Xavier Malhotra MD [facility] [place] [address] 12/29/2023 Hospital Encounter Elect[place] [address] Xavier Malhotra MD [facility] [place] [address] Paroxysmal atrial fibrillation 12/29/2023 7:30 AM EDT - 12/29/2023 12:00 PM EDT Surgery [place] [phone] Xavier Malhotra MD [facility] [place] [address] ELECTROPHYSIOLOGY PROCEDURE 01/14/2024 10:40 AM EDT Office Visit Cardiology at [address] [address] Carmen Castaneda PA [facility] [place] [address] Scheduled Procedures Name Priority Associated Diagnoses Date/Ti me TRANSESOPHAGEAL ECHO DURING CATH/EP PROCEDURE Paroxysmal atrial fibrillation 12/29/2023 7:30 AM EDT documented as of this encounter Goals Goal Patient Goal Type Associated Problems Recent Progress Patient-Stated? Author [facility] Medication Compliance and Understanding Patient Facing Action Plan No Lani Vargas, [facility] Note: Maintain control of disease for as long as possible as assessed by tumor marker levels and scans in clinic every 3 to 6 months documented as of this encounter Visit Diagnoses Not on filedocumented in this encounter Care Teams Counseling Center Manager Relationship Specialty Start Date End Date Evelyne Hunt APRN [address] [place] [address] PCP - General Internal Medicine 09/23/17 documented as of this encounter
--- OUTSIDE RECORDS SUMMARY | 2023-12-01 02:09 | XMS_ITS | Encounter Summary ---
Author Organization [facility] [place] [address] Care Team Providers Care Senior Environmental Scientist Name Role Phone Kiki Huntyce Dat STEVEN Primary Care Provider [phone] Encounter Details Date Type Department Care Team (Latest Contact Info) Description 04/28/2023 Travel Social History Tobacco Use Types Packs/Day [...] 9:[address] [place] [address] Xavier Malhotra MD [facility] [place] [address] 12/29/2023 Hospital Encounter [place]rophys[place] [phone] Xavier Malhotra MD [facility] [place] [address] Paroxysmal atrial fibrillation 12/29/2023 7:30 AM EDT - 12/29/2023 12:00 PM EDT Surgery [place] [address] Xavier Malhotra MD [facility] [place] [address] ELECTROPHYSIOLOGY PROCEDURE 01/14/2024 10:40 AM EDT Office Visit Cardiology at [address] [phone] Carmen Castaneda PA [facility] [place] [address] Scheduled Procedures Name Priority Associated Diagnoses Date/Ti me TRANSESOPHAGEAL ECHO DURING CATH/EP PROCEDURE Paroxysmal atrial fibrillation 12/29/2023 7:30 AM EDT documented as of this encounter Goals Goal Patient Goal Type Associated Problems Recent Progress Patient-Stated? Author DH Home Medication Compliance and Understanding Patient Facing Action Plan No Lani Vargas, [facility] Note: Maintain control of disease for as long as possible as assessed by tumor marker levels and scans in clinic every 3 to 6 months documented as of this encounter Visit Diagnoses Not on filedocumented in this encounter Care Teams Senior Environmental Scientist Relationship Specialty Start Date End Date Evelyne Hunt APRN [address] [place] [address] PCP - General Internal Medicine 09/23/17 documented as of this encounter
--- OUTSIDE RECORDS SUMMARY | 2023-12-01 02:09 | XMS_ITS | Encounter Summary ---
Author Organization [facility] [place] [address] Care Team Providers Care Transformer Maker Name Role Phone Evelyne Hunt Dat STEVEN Primary Care Provider [phone] Reason for Visit * Reason Comments Medication Refill Encounter Details Date Type Department Care Team (Late st Contact Info) Description 05/03/2023 Refill Cardiology at [address] [address] Mandeep Franco MD [facility] [place] [address] Medication Refill Social History Tobacco Use Types Packs/Day Years [...] 9:[address] [place] [address] Xavier Malhotra MD [facility] [address] [place], [place] [phone] 12/29/2023 Hospital Encounter [place] [address] Xavier Malhotra MD [facility] [place] [address] Paroxysmal atrial fibrillation 12/29/2023 7:30 AM EDT - 12/29/2023 12:00 PM EDT Surgery [place] [phone] Xavier Malhotra MD [facility] [place] [address] ELECTROPHYSIOLOGY PROCEDURE 01/14/2024 10:40 AM EDT Office Visit Cardiology at [address] [phone] Carmen Castaneda PA [facility] [place] [address] Scheduled Procedures Name Priority Associated Diagnoses Date/Ti me TRANSESOPHAGEAL ECHO DURING CATH/EP PROCEDURE Paroxysmal atrial fibrillation 12/29/2023 7:30 AM EDT documented as of this encounter Goals Goal Patient Goal Type Associated Problems Recent Progress Patient-Stated? Author DH Home Medication Compliance and Understanding Patient Facing Action Plan Lani Love, [facility] Note: Maintain control of disease for as long as possible as assessed by tumor marker levels and scans in clinic every 3 to 6 months documented as of this encounter Visit Diagnoses Not on filedocumented in this encounter Care Teams Transformer Maker Relationship Specialty Start Date End Date Evelyne Hunt APRN [address] [place] [address] PCP - General Internal Medicine 09/23/17 documented as of this encounter
--- OUTSIDE RECORDS SUMMARY | 2023-12-01 02:09 | XMS_ITS | Encounter Summary ---
Author Organization [facility] Address [facility] [place] [address] Care Team Providers Care Night Worker Name Role Phone Evelyne Hunt APRN Primary Care Provider [phone] Encounter Details Date Type Department Care Team (Late st Contact Info) Description 09/24/2023 [place] [phone] Aakash Hayes MD [facility] [place] [address] Social History Tobacco Use Types Packs/Day Years Used Date Smoking Tobacco: Former Cigarettes Q uit: 07/12/1977 Smokeless Tobacco: Never Alcohol Use Standard Drinks/Week Comments Not Currently 0 (1 standard drink = 0.6 oz pur e alcohol) [facility] Utilities Answer Date Recorded In the past 12 months has e [employer], gas, oil, or water [employer] threatened to shut off services in your [...] any time in the past 12 m onths, were you homeless or living in a assisted (including now)? No 09/25/2023 IPV Inpatient Questions [...] encounter Miscellaneous Notes * Telephone Encounter - Aakash Hayes MD - 09/24/2023 5:35 PM EDT Received a TC call from patient's physician due to significant symptomatic AF/AFL, and issues with being seen outpatient. Given the significant limitation, I recommended that, should she wish to, daphniecould present to the ED here and we can figure out what is going on from there. documented in this encounter Plan of Treatment Upcoming Encounters Date Type Department Care Team (Latest Contact Info) Description 12/25/2023 9:[address] [place] [phone] Xavier Malhotra MD [facility] [place] [address] 12/29/2023 Hospital Encounter Elect[place] [phone] Xavier Malhotra MD [facility] [place] [address] Paroxysmal atrial fibrillation 12/29/2023 7:30 AM EDT - 12/29/2023 12:00 PM EDT Surgery [place] [phone] Xavier Malhotra MD [facility] [place] [address] ELECTROPHYSIOLOGY PROCEDURE 01/14/2024 10:40 AM EDT Office Visit Cardiology at [address] [phone] Carmen Castaneda PA [facility] CARDIOLOGY [place], [place] [phone] Scheduled Procedures Name Priority Associated Diagnoses Date/Ti me TRANSESOPHAGEAL ECHO DURING CATH/EP PROCEDURE Paroxysmal atrial fibrillation 12/29/2023 7:30 AM EDT documented as of this encounter Goals Goal Patient Goal Type Associated Problems Recent Progress Patient-Stated? Author [facility] Medication Compliance and Understanding Patient Facing Action Plan No Lani Vargas, [facility] Note: Maintain control of disease for as long as possible as assessed by tumor marker levels and scans in clinic every 3 to 6 months documented as of this encounter Visit Diagnoses Not on filedocumented in this encounter Care Teams Night Worker Relationship Specialty Start Date End Date Evelyne Hunt APRN [address] [facility] [place] [place] [address] PCP - General Internal Medicine 09/23/17 documented as of this encounter
--- OUTSIDE RECORDS SUMMARY | 2023-12-01 02:09 | XMS_ITS | Encounter Summary ---
Author Organization [facility] [place] [address] Care Team Providers Care Ore Puncher Name Role Phone Kiki Huntyce Dat STEVEN Primary Care Provider [phone] Encounter Details Date Type Department Care Team (Latest Contact Info) Description 07/16/2023 Travel Social History Tobacco Use Types Packs/Day [...] 9:[address] [place] [address] Xavier Malhotra MD [facility] [place] [address] 12/29/2023 Hospital Encounter [place] [phone] Xavier Malhotra MD [facility] [place] [address] Paroxysmal atrial fibrillation 12/29/2023 7:30 AM EDT - 12/29/2023 12:00 PM EDT Surgery [place] [address] Xavier Malhotra MD [facility] [place] [address] ELECTROPHYSIOLOGY PROCEDURE 01/14/2024 10:40 AM EDT Office Visit Cardiology at [address] [phone] Carmen Castaneda PA [facility] [place] [address] Scheduled Procedures Name Priority Associated Diagnoses Date/Ti me TRANSESOPHAGEAL ECHO DURING CATH/EP PROCEDURE Paroxysmal atrial fibrillation 12/29/2023 7:30 AM EDT documented as of this encounter Goals Goal Patient Goal Type Associated Problems Recent Progress Patient-Stated? Author DH Home Medication Compliance and Understanding Patient Facing Action Plan No Lani Vargas, [facility] Note: Maintain control of disease for as long as possible as assessed by tumor marker levels and scans in clinic every 3 to 6 months documented as of this encounter Visit Diagnoses Not on filedocumented in this encounter Care Teams Ore Puncher Relationship Specialty Start Date End Date Evelyne Hunt APRN [address] [place] [address] PCP - General Internal Medicine 09/23/17 documented as of this encounter
--- OUTSIDE RECORDS SUMMARY | 2023-12-01 02:09 | XMS_ITS | Encounter Summary ---
Author Organization [facility] [place] [address] Care Team Providers Care Grounds Keeper Name Role Phone MarileeEvelyne hoffmann APRN Primary Care Provider [phone] Encounter Details Date Type Department Care Team (Late st Contact Info) Description 09/18/2023 Transcribe Orders eDH Incoming Referrals [phone] Jody De Santiago MD [address] [place] [address] [address] [place], [place] [address] Social History Tobacco Use Types Packs/Day Years [...] 9:[address] [place] [phone] Xavier Malhotra MD [facility] [place] [address] 12/29/2023 Hospital Encounter [place] [address] Xavier Malhotra MD [facility] [place] [address] Paroxysmal atrial fibrillation 12/29/2023 7:30 AM EDT - 12/29/2023 12:00 PM EDT Surgery [place] [phone] Xavier Malhotra MD [facility] [place] [address] ELECTROPHYSIOLOGY PROCEDURE 01/14/2024 10:40 AM EDT Office Visit Cardiology at [address] [phone] Carmen Castaneda PA [facility] [place] [address] Scheduled Procedures Name Priority Associated Diagnoses Date/Ti me TRANSESOPHAGEAL ECHO DURING CATH/EP PROCEDURE Paroxysmal atrial fibrillation 12/29/2023 7:30 AM EDT documented as of this encounter Goals Goal Patient Goal Type Associated Problems Recent Progress Patient-Stated? Author DH Home Medication Compliance and Understanding Patient Facing Action Plan No Lani Vargas, [facility] Note: Maintain control of disease for as long as possible as assessed by tumor marker levels and scans in clinic every 3 to 6 months documented as of this encounter Visit Diagnoses Not on filedocumented in this encounter Care Teams Grounds Keeper Relationship Specialty Start Date End Date Evelyne Hunt APRN [address] [place] [address] PCP - General Internal Medicine 09/23/17 documented as of this encounter
--- OUTSIDE RECORDS SUMMARY | 2023-12-01 02:09 | XMS_ITS | Encounter Summary ---
Author Organization [facility] Address [facility] [place] [address] Care Team Providers Care Geotechnical Field Technician Name Role Phone Evelyne Hunt APRN Primary Care Provider [phone] Reason for Visit * Reason Comments Established 3 month follow up Encounter Details Date Type Department Care Team (Late st Contact Info) Description 05/05/2023 12:00 PM EST Office Visit [place] [address] Iram Laird MD [facility] DR OBSTETRICS [place] [address] Ovarian cancer, unspecified laterality Social History Tobacco [...] Reading Time Taken Comments Blood Pressure 125/81 05/05/2023 12:04 PM EST Pulse 61 05/05/2023 12:04 PM EST Temperature 35.7 ??C (96.3 ??F) 05/05/2023 12:[address] Respiratory Rate 16 05/05/2023 12:04 PM EST Oxygen Saturation 99% 05/05/2023 12:04 PM EST Inhaled Oxygen Concentration - - Weight - - Height - - Body Mass Index - - documented in this encounter Progress Notes * Iram Laird MD - 05/05/2023 12:00 PM EST Division [place] [address] 05/02/2023 Follow-up Visit: Patient Active Problem List Diagnosis [...] to driving. 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 Subjective: Gabi Luna returns to the office today for a cancer surveillance visit. She stopped taking her PARP inhibitor on 10/07/22. She went to the lab prior to today's appointment to obtain CA 125. Last visit 12/2022 Interval history: saw primary care for abdominal discomfort no precipitating factors , healthy diet small amount full bowel movement daily does not feel like normal evacuation sometimes Gas worse and foul smelling more than usual Not more distended and no unusual bloating Urinary: No problems Neuropathy: Longstanding neuropathy is stable Ambulation: Very active this summer with hiking, walking, and pickleball. Notes that if she has lost some weight, it is likely due to all of her activity. Continues to have dryness with sexual intercourse using samples uberlube She reports no changes to her medical history, surgical history, medications, allergies since her last visit. ROS - Negative for fever, chills, SOB, chest pain, AUB Health care maintenance Mammogram - [facility] Colonoscopy - 04/2021 DATA - Latest Reference Range & Units 10/07/22 08:19 01/06/23 07:31 05/05/23 11:20 CA 125 <=38.1 unit/mL 10.9 10.7 11.1 Objective: BP 125/81 (Patient Position: Sitting) Pulse 61 Temp 35.7 ??C (96.3 ??F) (Temporal) Resp 16 SpO2 99% Physical Exam Constitutional: General: She is not [...] last visit on 10/07/2022 with aplan for [id number] visits and CA-125. Today she is doing well and has no evidence of recurrent cancer. CA125 was reassuring. We will message her with the results when they become available. Based on reassuring exam today, we will continue with surveillance physical exam and CA125 every 3 months. Signs and symptoms of recurrent disease reviewed. Patient is encouraged to follow-up with her PCP for possible gastroenterology referral in light of the patient's complaints of increased belching and abdominal discomfort especially following eating.The patient was otherwise reassured with regards to the status of her history of ovarian cancer that she remains without any evidence of disease. The patient appeared very reassured by this information. - RTC 6 months - q3 month CA 125 I personally spent a total of 30 minute visit independently reviewing relevant interval data including imaging, lab tests, counseling and coordinating care for Gabi Luna. We discussed the plan and rationale for ongoing surveillance. Iram Laird MD * Blake Peralta LNA - 05/05/2023 12:00 PM EST This patient was seen in the OBGYN clinic today. I was present as rn gyn for the sensitive partsof her examination. In 3K with ALEJANDRO Armenta documented in this encounter Plan of Treatment Upcoming Encounters Date Type Department Care Team (Latest Contact Info) Description 12/25/2023 9:[address] [place] [place] [address] Xavier Malhotra MD [facility] [place] [address] 12/29/2023 Hospital Encounter [place] [phone] Xavier Malhotra MD [facility] [place] [address] Paroxysmal atrial fibrillation 12/29/2023 7:30 AM EDT - 12/29/2023 12:00 PM EDT Surgery [place] [phone] Xavier Malhotra MD [facility] [place] [address] ELECTROPHYSIOLOGY PROCEDURE 01/14/2024 10:40 AM EDT Office Visit Cardiology at [address] [phone] Carmen Castaneda PA [facility] [place] [address] Scheduled Procedures Name Priority Associated Diagnoses Date/Ti [...] fibrillation documented in this encounter Care Teams Geotechnical Field Technician Relationship Specialty Start Date End Date Evelyne Hunt, CUSTOMER EXPERIENCE LEADER [address] [place] [address] PCP - General Internal Medicine 09/23/17 documented as of this encounter
--- OUTSIDE RECORDS SUMMARY | 2023-12-01 02:10 | XMS_ITS | Encounter Summary ---
Author Organization [facility] [place] [address] Care Team Providers Care Technical Service Specialist Name Role Phone Kiki Huntjunaid Daugherty APRN Primary Care Provider [phone] Encounter Details Date Type Department Care Team (Latest Contact Info) Description 04/04/2022 Travel Social History Tobacco Use Types Packs/Day [...] 9:[address] [place] [address] Xavier Malhotra MD [facility] [place] [address] 12/29/2023 Hospital Encounter [place] [phone] Xavier Malhotra MD [facility] [place] [address] Paroxysmal atrial fibrillation 12/29/2023 7:30 AM EDT - 12/29/2023 12:00 PM EDT Surgery [place] [address] Xavier Malhotra MD [facility] [place] [address] ELECTROPHYSIOLOGY PROCEDURE 01/14/2024 10:40 AM EDT Office Visit Cardiology at [address] [phone] Carmen aCstaneda PA [facility] [place] [address] Scheduled Procedures Name Priority Associated Diagnoses Date/Ti [...] on filedocumented in this encounter Care Teams Technical Service Specialist Relationship Specialty Start Date End Date Evelyne Hunt APRN [address] [place] [address] PCP - General Internal Medicine 09/23/17 documented as of this encounter
--- OUTSIDE RECORDS SUMMARY | 2023-12-01 02:10 | XMS_ITS | Encounter Summary ---
Author Organization [facility] [place] [address] Care Team Providers Care Counselor Manager Name Role Phone Evelyne Hunt Dat STEVEN Primary Care Provider [phone] Encounter Details Date Type Department Care Team (Late st Contact Info) Description 03/28/2022 Abstract Cardiology at [address] [address] Praveena Petty, RN Social History Tobacco Use [...] 9:[address] [place] [address] Xavier Malhotra MD [facility] [place] [place] [address] 12/29/2023 Hospital Encounter [place] [address] Xavier Malhotra MD [facility] [place] [address] Paroxysmal atrial fibrillation 12/29/2023 7:30 AM EDT - 12/29/2023 12:00 PM EDT Surgery [place] [phone] aXvier Malhotra MD [facility] [place] [address] ELECTROPHYSIOLOGY PROCEDURE 01/14/2024 10:40 AM EDT Office Visit Cardiology at [address] [phone] Carmen Castaneda PA [facility] CARDIOLOGY [place], [place] [phone] Scheduled Procedures Name Priority Associated Diagnoses Date/Ti me TRANSESOPHAGEAL ECHO DURING CATH/EP PROCEDURE Paroxysmal atrial fibrillation 12/29/2023 7:30 AM EDT documented as of this encounter Goals Goal Patient Goal Type Associated Problems Recent Progress Patient-Stated? Author [facility] Medication Compliance and Understanding Patient Facing Action Plan No Lani Vargas, [facility] Note: Maintain control of disease for as long as possible as assessed by tumor marker levels and scans in clinic every 3 to 6 months documented as of this encounter Visit Diagnoses Not on filedocumented in this encounter Care Teams Counselor Manager Relationship Specialty Start Date End Date Evelyne Hunt APRN [address] [place] [address] PCP - General Internal Medicine 09/23/17 documented as of this encounter
--- OUTSIDE RECORDS SUMMARY | 2023-12-01 02:10 | XMS_ITS | Encounter Summary ---
Author Organization [facility] [place] [address] Care Team Providers Care Sales Administration Manager Name Role Phone Evelyne Hunt APRN Primary Care Provider [phone] Reason for Referral * Diagnostic Test (Routine) - Closed Specialty Diagnoses / Procedures Referred By Contac t Referred To Contact Cardiology Diagnoses Aortic valve stenosis, etiology of cardiac valve disease unspecified Procedures Echocardiogram Transthoracic Jourdan Beyer PA [facility] DR [place] [address] [place] [address] Referral ID Status Reason Start Date Expiration Date V isits Requested Visits Authorized [id number] Closed Specialty Service Requested 01/09/2022 01/09/2023 1 1 Reason for Visit * Diagnostic Test (Routine) - Closed Specialty Diagnoses / Procedures Referred By Contac t Referred To Contact Cardiology Diagnoses Aortic valve stenosis, etiology of cardiac valve disease unspecified Procedures Echocardiogram Transthoracic Jourdan Beyer PA [facility] DR [place] [address] [facility] [address] Referral ID Status Reason Start Date Expiration Date V isits Requested Visits Authorized [id number] Closed Specialty Service Requested 01/09/2022 01/09/2023 1 1 Encounter Details Date Type Department Care Team (Latest Contact Info) Description 03/08/2022 10:00 AM EST - 03/08/2022 11:59 PM EST Hospital Encounter Non-Invasive Cardiology Lab [facility] [place] [address] Estrella Felder MD [facility] [place] [address] Aortic valve stenosis, etiology of cardiac valve disease unspecified Discharge Disposition: Home Social History Tobacco Use [...] 81 mg EC (DR) tablet daily. 02/22/2022 traZODone (Desyrel) 50 mg Tablet TAKE ONE TO TWO TABLETS BY MOUTH AT BEDTIME NEEDED 02/20/2022 atorvastatin (Lipitor) 10 mg Tablet Take 10 mg by mouth daily. 11/24/2021 buPROPion XL (Wellbutrin XL) 300 mg Tablet Extended Release 24 hr TK 1 T PO QAM 10/01/2019 warfarin (Coumadin) 2.5 mg Tablet Take as instructed by your PCP 90 tablet 03/04/2022 03/28/2022 LORazepam (Ativan) 0.5 mg Tablet Take 0.5 mg by mouth 2 times daily as needed. 02/11/2022 07/29/2022 AMIOdarone (PACERONE) 400 mg Tablet Take 1 tablet by mouth daily for 30 days. 30 tablet 02/07/2022 03/09/2022 aspirin 81 mg Tablet, Chewable Take 81 mg by mouth daily for 90 days. 30 tablet 2 02/07/2022 05/08/2022 acetaminophen (Tylenol) 500 mg Tablet Take 2 tablets by mouth every 6 hours as needed for Pain. 30 tablet 1 02/06/2022 07/29/2022 metoproloL tartrate (Lopressor) 25 mg Tablet Take 1 tablet by mouth 2 times daily for 90 days. 60 tablet 2 02/06/2022 05/07/2022 clindamycin (CLEOCIN) 300 mg Capsule Take 2 capsules by mouth as needed (dental procedures). Take 1 hour prior to dental procedures 2 capsule 02/06/2022 02/13/2023 niraparib (Zejula) 100 mg capsuleIndications:ep ithelial ovarian cancer Take 1 capsule (100 mg) by mouth daily. 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 30 capsule 11 04/24/2021 05/02/2022 documented as of this encounter Plan of Treatment Upcoming Encounters Date Type Department Care Team (Latest Contact Info) Description 12/25/2023 9:[address] [place] [address] Xavier Malhotra MD [facility] [place] [address] 12/29/2023 Hospital Encounter [place] [phone] Xavier Malhotra MD [facility] [place] [address] Paroxysmal atrial fibrillation 12/29/2023 7:30 AM EDT - 12/29/2023 12:00 PM EDT Surgery [place] [address] Xavier Malhotra MD [facility] [place] [address] ELECTROPHYSIOLOGY PROCEDURE 01/14/2024 10:40 AM EDT Office Visit Cardiology at [address] [phone] Carmen Castaneda PA [facility] [place] [address] Scheduled Procedures Name Priority Associated Diagnoses Date/Ti me TRANSESOPHAGEAL ECHO DURING CATH/EP PROCEDURE Paroxysmal atrial fibrillation 12/29/2023 7:30 AM EDT documented as of this encounter Goals Goal Patient Goal Type Associated Problems Recent Progress Patient-Stated? Author [facility] Home Medication Compliance and Understanding Patient Facing Action Plan No Lani Vargas, [facility] Note: Maintain control of disease for as long as possible as assessed by tumor marker levels and scans in clinic every 3 to 6 months documented as of this encounter Procedures Procedure Name Priority Date/Time Associated Diagnosis Comments ECHO COMPLETE Routine 03/08/2022 11:59 AM EST Aortic valve stenosis, etiology of cardiac valve disease unspecified documented in this encounter Results * ECHO COMPLETE (03/08/2022 11:59 AM EST) Anatomical Region Laterality Modality Cardiac Other 03/08/2022 11:0 4 AM EST Narrative 03/08/2022 1:03 PM EST ? Echocardiogram Report Name: GABI WALLER ?Study Date: 03/08/2022 11:04 AMBP: 121/72 mmHg ? Patient Location: : 1960 ? Height: 166 cm ? Account: [id number] Age: 61 yrs ? Weight: 59 kg Gender: Female ?BSA: 1.7 m2 Ordering Physician: ESTRELLA FELDER Referring Physician: JOURDAN BEYER Performed By: Praveena Alvarez RDCS Reason For Study: Aortic valve stenosis Exam Location: [facility]. Interpretation Summary Left ventricle is of normal [...] dimensionless index is 0.65. No significant regurgitation. Procedure Complete-[id number]. Satisfactory quality. Left Ventricle There is no ventricular septal defect. Left ventricle is of normal size. Wall thickness is normal. Left ventricular systolic function is normal. The left ventricular ejection fraction is 70% by Arndt's biplane. There are no segmental wall motion abnormalities. Right Ventricle The right ventricle is of normal size. Right ventricular systolic function is normal. Left Atrium The left atrium is mildly dilated. There is no evidence for a patent foramen ovale. Right Atrium The right atrium is normal. Aortic Valve There is a 23 mm Inspiris bioprosthetic valve in the aortic position implanted on 01-29-2022. The peak instantaneous gradient across the aortic valve is 15.5 mmHg. The mean gradient across the aortic valve is 9 mmHg. The aortic valve area calculated using the continuity equation is 1.8 cm2. The dimensionless index is 0.65. The stroke volume index is 49 mL/m2. There appears to be no paravalvular regurgitation. There appears to be trace intravalvular regurgitation. Mitral Valve Minimal calcification of the mitral annulus. There is mild to moderate mitral regurgitation. Tricuspid Valve The tricuspid valve is structurally normal. There is mild tricuspid regurgitation. Pulmonic Valve The pulmonic valve is not well visualized. Great Arteries The aortic root at the level of the sinuses of Valsalva is mildly dilated. (3.7 cm). The ascending aorta is not well visualized. Venous Inferior vena cava is normal in size. Inferior vena cava collapse greater than 50% with respiration. Pericardium/Pleural The pericardium appears normal. Hemodynamics The peak right ventricular systolic pressure is 25 mmHg. The estimated right atrial pressure is 3mmHg. Left ventricular filling pressure is normal. Ejection Fraction ?2D Measurements ? Volumes LV Biplane EF: 69.6 % ? IVSd: 1.1 cm ? LA Volume Index: ?LVIDd: 4.0 cm ?LVIDs: 2.4 cm ?38.1 ml/m2 ?LVPWd: 1.0 cm ?RA A4Cs_phl: 17.2 cm2 ? EDV Biplane: 65.7 ml ?LV mass(C)d: 137.9 grams ? EDV Biplane Index: 39.7 ?LV mass(C)dI: 83.4 grams/m2 ?ESV Biplane: 20.0 ml ?Ao Sinus Diam_phl: 3.7 cm ?ESV Biplane Index: 12.1 ?LVOT diam: 1.9 cm ?SV(LVOT): 80.5 ml ? LV Stroke Volume: 81.0 ml ? SI(LVOT): 48.7 ml/m2 Doppler TR max kiko: 234.9 cm/sec RVSP(TR): 25.1 mmHg LV V1 VTI: 28.4 cm LVOT max Velocity: 132.0 cm/sec Ao V2 VTI: 43.8 cm Ao Max: 197.0 cm/sec Ao valve max: 15.5 mmHg Ao valve mean: 9.0 mmHg MV E max kiko: 85.0 cm/sec MV A max kiko: 56.3 cm/sec MV E/A: 1.5 MV dec time: 0.21 sec Lat Peak E' Kiko: 14.6 cm/sec E/ e' (lat): 5.8 Med Peak E' Kiko: 8.5 cm/sec E/e' (med): 10.0 E/e' Average: 7.9 SUDHAKAR(I,D): 1.8 cm2 Dimensionless index Aov: 0.65 I ?WMSI = 1.00 ? % Normal = 100 ?Segments ??Size X - Cannot ?? 1 - Normal ?? 2 - ? 3 - Akinetic 4 - ?1-2 ? small Interpret ? Hypokinetic ?Dyskinetic ?? 3-5 ? moderate 5 - ? 6-14 ?large Aneurysmal ?15-16 ?? diffuse Procedure Note Mandeep Franco MD - 03/08/2022 Echocardiogram Report Name: GABI WALLER Study Date: 1:04 AMBP: 121/72 mmHg Patient Location: : 1960 Height: 166 cm Account: [id number] Age: 61 yrs Weight: 59 kg Gender: Female BSA: 1.7 m2 Ordering Physician: ESTRELLA FELDER Referring Physician: JOURDAN BEYER Performed By: Praveena Alvarez RDCS Reason For Study: Aortic valve stenosis Exam Location: [facility]. Interpretation Summary Left ventricle is of normal size. Wall thickness is normal. Leftventricular systolic function is normal. The left ventricular ejection fraction is 70%by Arndt's biplane. There are no segmental wall motion abnormalities. Thereis no JERRY or LVOT gradient. The right ventricle is of normal size. Right ventricular systolic functionis normal. There is a 23 mm Inspiris bioprosthetic valve in the aortic positionimplanted on 01-29-2022. The mean gradient across the aortic valve is 9 mmHg. Thedimensionless index is 0.65. No significant regurgitation. Procedure Complete-[id number]. Satisfactory quality. Left Ventricle There is no ventricular septal defect. Left ventricle is of normal size.Wall thickness is normal. Left ventricular systolic function is normal. Theleft ventricular ejection fraction is 70% by Arndt's biplane. There are nosegmental wall motion abnormalities. Right Ventricle The right ventricle is of normal size. Right ventricular systolic functionis normal. Left Atrium The left atrium is mildly dilated. There is no evidence for a patentforamen ovale. Right Atrium The right atrium is normal. Aortic Valve There is a 23 mm Inspiris bioprosthetic valve in the aortic positionimplanted on 01-29-2022. The peak instantaneous gradient across the aortic valve is15.5 mmHg. The mean gradient across the aortic valve is 9 mmHg. The aortic valvearea calculated using the continuity equation is 1.8 cm2. The dimensionlessindex is 0.65. The stroke volume index is 49 mL/m2. There appears to be noparavalvular regurgitation. There appears to be trace intravalvular regurgitation. Mitral Valve Minimal calcification of the mitral annulus. There is mild to moderatemitral regurgitation. Tricuspid Valve The tricuspid valve is structurally normal. There is mild tricuspidregurgitation. Pulmonic Valve The pulmonic valve is not well visualized. Great Arteries The aortic root at the level of the sinuses of Valsalva is mildly dilated.(3.7 cm). The ascending aorta is not well visualized. Venous Inferior vena cava is normal in size. Inferior vena cava collapse greaterthan 50% with respiration. Pericardium/Pleural The pericardium appears normal. Hemodynamics The peak right ventricular systolic pressure is 25 mmHg. The estimatedright atrial pressure is 3mmHg. Left ventricular filling pressure is normal. Ejection Fraction 2D Measurements Volumes LV Biplane EF: 69.6 % IVSd: 1.1 cm LA VolumeIndex: LVIDd: 4.0 cm LVIDs: 2.4 cm 38.1 ml/m2 LVPWd: 1.0 cm RA A4Cs_phl: 17.2cm2 EDV Biplane: 65.7ml LV mass(C)d: 137.9 grams EDV BiplaneIndex: 39.7 LV mass(C)dI: 83.4 grams/m2 ESV Biplane: 20.0ml Ao Sinus Diam_phl: 3.7 cm ESV BiplaneIndex: 12.1 LVOT diam: 1.9 cm SV(LVOT): 80.5ml LV Stroke Volume:81.0 ml SI(LVOT): 48.7ml/m2 Doppler TR max kiko: 234.9 cm/sec RVSP(TR): 25.1 mmHg LV V1 VTI: 28.4 cm LVOT max Velocity: 132.0 cm/sec Ao V2 VTI: 43.8 cm Ao Max: 197.0 cm/sec Ao valve max: 15.5 mmHg Ao valve mean: 9.0 mmHg MV E max kiko: 85.0 cm/sec MV A max kiko: 56.3 cm/sec MV E/A: 1.5 MV dec time: 0.21 sec Lat Peak E' Kiko: 14.6 cm/sec E/ e' (lat): 5.8 Med Peak E' Kiko: 8.5 cm/sec E/e' (med): 10.0 E/e' Average: 7.9 SUDHAKAR(I,D): 1.8 cm2 Dimensionless index Aov: 0.65 I WMSI = 1.00 % Normal = 100 SegmentsSize X - Cannot 1 - Normal 2 - 3 - Akinetic 4 - 1-2small Interpret Hypokinetic Dyskinetic 3-5moderate 5 - 6-14large Aneurysmal 15-16diffuse Estrella Felder MD ECHO ORDERABLES documented in this encounter Visit Diagnoses Diagnosis Aortic valve stenosis, etiology of cardiac valve disease unspecified Paroxysmal atrial fibrillation Atrial fibrillation Paroxysmal atrial fibrillation Atrial fibrillation documented in this encounter Care Teams Sales Administration Manager Relationship Specialty Start Date End Date Evelyne Hunt APRN [address] [place] [address] PCP - General Internal Medicine 09/23/17 documented as of this encounter
--- OUTSIDE RECORDS SUMMARY | 2023-12-01 02:10 | XMS_ITS | Encounter Summary ---
Author Organization [facility] [place] [address] Care Team Providers Care Mower Operator Name Role Phone Evelyne Hunt Dat STEVEN Primary Care Provider [phone] Encounter Details Date Type Department Care Team (Late st Contact Info) Description 07/16/2022 Telephone [place] [phone] Eleni Marcial LNA Social History Tobacco Use Types Packs/Day Years [...] Miscellaneous Notes * Telephone Encounter - Eleni Marcial LNA - 07/16/2022 1:27 PM EDT Called and spoke with patient. Informed her of the departure of Dr. Vallejo from [facility] [employer] Load[employer]ed Onc. Answered patient's questions and concerns to the best of ability. Informed patient that their care wouldbe taken over by [facility] one of Dr. Vallejo's colleagues. Patient was encouraged to call to clinic or send a message with any further questions or concerns should they arise. documented in this encounter Plan of Treatment Upcoming Encounters Date Type Department Care Team (Latest Contact Info) Description 12/25/2023 9:[address] [place] [address] Xavier Malhotra MD [facility] [address] 12/29/2023 Hospital Encounter Electrophysiology Lab at [address] Xavier Malhotra MD [facility] [place] [address] Paroxysmal atrial fibrillation 12/29/2023 7:30 AM EDT - 12/29/2023 12:00 PM EDT Surgery Electrophysiology Lab at [place] [phone] Xavier Malhotra MD [facility] [place] [address] ELECTROPHYSIOLOGY PROCEDURE 01/14/2024 10:40 AM EDT Office Visit Cardiology at [place] [phone] Carmen Catsaneda PA [facility] [place] [address] Scheduled Procedures Name Priority Associated Diagnoses Date/Ti me TRANSESOPHAGEAL ECHO DURING CATH/EP PROCEDURE Paroxysmal atrial fibrillation 12/29/2023 7:30 AM EDT documented as of this encounter Goals Goal Patient Goal Type Associated Problems Recent Progress Patient-Stated? Author [facility] Medication Compliance and Understanding Patient Facing Action Plan Lani Love, [facility] Note: Maintain control of disease for as long as possible as assessed by tumor marker levels and scans in clinic every 3 to 6 months documented as of this encounter Visit Diagnoses Not on filedocumented in this encounter Care Teams Mower Operator Relationship Specialty Start Date End Date Evelyne Hunt APRN [address] [place] [address] PCP - General Internal Medicine 09/23/17 documented as of this encounter
--- OUTSIDE RECORDS SUMMARY | 2023-12-01 02:10 | XMS_ITS | Encounter Summary ---
Author Organization [facility] [place] [address] Care Team Providers Care Hatch Supervisor Name Role Phone Evelyne Hunt APRN Primary Care Provider Encounter Details Date Type Department Care Team (Latest Contact Info) Description 08/27/2022 Transcribe [place] [address] Evelyne Hunt APRN [address] [place], [place] [address] Hypothyroidism, unspecified type Social History Tobacco Use Types [...] 9:[address] [place] [address] Xavier Malhotra MD [facility] [place] [address] 12/29/2023 Hospital Encounter [place] [address] Xavier Malhotra MD [facility] [place] [address] Paroxysmal atrial fibrillation 12/29/2023 7:30 AM EDT - 12/29/2023 12:00 PM EDT Surgery [place]rophys[place] [phone] Xavier Malhotra MD [facility] [place] [address] ELECTROPHYSIOLOGY PROCEDURE 01/14/2024 10:40 AM EDT Office Visit Cardiology at [address] [phone] Carmen Castaneda PA [facility] [place] [address] Scheduled Procedures Name Priority Associated Diagnoses Date/Ti [...] as of this encounter Visit Diagnoses Diagnosis Hypothyroidism, unspecified type Paroxysmal atrial fibrillation Atrial fibrillation Paroxysmal atrial fibrillation Atrial fibrillation documented in this encounter Care Teams Hatch Supervisor Relationship Specialty Start Date End Date Evelyne Hunt APRN [address] [place] [address] PCP - General Internal Medicine 09/23/17 documented as of this encounter
--- OUTSIDE RECORDS SUMMARY | 2023-12-01 02:10 | XMS_ITS | Encounter Summary ---
[place] [address] Care Team Providers Care Division Field Inspector Name Role Phone Kiki Huntyce Dat STEVEN Primary Care Provider [phone] Reason for Visit * Reason Onset Date Comments Advice Only 03/12/2022 Warfarin Encounter Details Date Type Department Care Team (Late st Contact Info) Description 03/12/2022 Telephone Cardiology at [address] [phone] Rosalee Toledo, stitch bonding machine tender helper Only (Warfarin) Social History Tobacco Use Types Packs/Day Years [...] encounter Miscellaneous Notes * Telephone Encounter - Rosalee Toledo RN - 03/12/2022 11:05 AM EST VM from pt asking if now that she is done wearing her ZIO does she stop her Warfarin. Chart reviewed.I plan to extend her Coumadin until we have the results of her Zio. We discussed this today. as per visit with Dr. Franco on 03-04-22 Call to pt and reviewed visit in structions Teach back method done. Rosalee Toledo RN 4A Cardiology documented in this encounter Plan of Treatment Upcoming Encounters Date Type Department Care Team (Latest Contact Info) Description 12/25/2023 9:[address] Scan at [place] [phone] Xavier Malhotra MD [facility] [place] [address] 12/29/2023 Hospital Encounter Electrophysiology Lab at [place] [phone] Xavier Malhotra MD [facility] [place] [address] Paroxysmal atrial fibrillation 12/29/2023 7:30 AM EDT - 12/29/2023 12:00 PM EDT Surgery Electrophysiology Lab at [place] [phone] Xavier Malhotra MD [facility] [place] [address] ELECTROPHYSIOLOGY PROCEDURE 01/14/2024 10:40 AM EDT Office Visit Cardiology at [address] [phone] Carmen Castaneda PA [facility] [place] [address] Scheduled Procedures Name Priority Associated Diagnoses Date/Ti me TRANSESOPHAGEAL ECHO DURING CATH/EP PROCEDURE Paroxysmal atrial fibrillation 12/29/2023 7:30 AM EDT documented as of this encounter Goals Goal Patient Goal Type Associated Problems Recent Progress Patient-Stated? Author [facility] Medication Compliance and Understanding Patient Facing Action Plan Lani Love, [facility] Note: Maintain control of disease for as long as possible as assessed by tumor marker levels and scans in clinic every 3 to 6 months documented as of this encounter Visit Diagnoses Not on filedocumented in this encounter Care Teams Division Field Inspector Relationship Specialty Start Date End Date Evelyne Hunt, BORDERER [address] [place] [address] PCP - General Internal Medicine 09/23/17 documented as of this encounter
--- OUTSIDE RECORDS SUMMARY | 2023-12-01 02:10 | XMS_ITS | Encounter Summary ---
Author Organization [facility] [place] [address] Care Team Providers Care Solid Waste Disposal Manager Name Role Phone Marilee Evelyne Daugherty APRN Primary Care Provider [phone] Encounter Details Date Type Department Care Team (Late st Contact Info) Description 07/19/2022 Telephone Gynecology [place] [phone] Sayda Doan RN Social History Tobacco Use Types Packs/Day [...] encounter Miscellaneous Notes * Telephone Encounter - Sayda Doan RN - 07/19/2022 12:55 PM EDT Called and spoke with patient. Informed her that her CA 125 from 07/17/22 is 8. Patient verbalized understanding and denies any questions at this time. * Telephone Encounter - Sayda Doan RN - 07/19/2022 12:55 PM EDT ----- Message from Radha Marcial sent at 07/19/2022 12:50 PM EDT ----- Patietn calling about CA 125 lab results, I cannot see anything in her chart. Can you please call her back at [phone] documented in this encounter Plan of Treatment Upcoming Encounters Date Type Department Care Team (Latest Contact Info) Description 12/25/2023 9:[address] [place] [address] Xavier Malhotra MD [facility] [place] [address] 12/29/2023 Hospital Encounter [place] [address] Xavier Malhotra MD [facility] [place] [address] Paroxysmal atrial fibrillation 12/29/2023 7:30 AM EDT - 12/29/2023 12:00 PM EDT Surgery [place] [address] Xavier Malhotra MD [facility] [place] [address] ELECTROPHYSIOLOGY PROCEDURE 01/14/2024 10:40 AM EDT Office Visit Cardiology at [place] [phone] Carmen Castaneda PA [facility] [place] [address] Scheduled Procedures Name Priority Associated Diagnoses Date/Ti me TRANSESOPHAGEAL ECHO DURING CATH/EP PROCEDURE Paroxysmal atrial fibrillation 12/29/2023 7:30 AM EDT documented as of this encounter Goals Goal Patient Goal Type Associated Problems Recent Progress Patient-Stated? Author [facility] Home Medication Compliance and Understanding Patient Facing Action Plan Lani Love, [facility] Note: Maintain control of disease for as long as possible as assessed by tumor marker levels and scans in clinic every 3 to 6 months documented as of this encounter Visit Diagnoses Not on filedocumented in this encounter Care Teams Solid Waste Disposal Manager Relationship Specialty Start Date End Date Evelyne Hunt APRN [address] [place] [address] PCP - General Internal Medicine 09/23/17 documented as of this encounter
--- OUTSIDE RECORDS SUMMARY | 2023-12-01 02:10 | XMS_ITS | Encounter Summary ---
Author Organization [facility] Address [facility] [place] [address] Care Team Providers Care Director Of Medical Review Name Role Phone Evelyne Hunt APRN Primary Care Provider [phone] Encounter Details Date Type Department Care Team (Late st Contact Info) Description 03/08/2022 11:40 AM EST Office [place] [phone] Efrain Felder MD [facility] [place] [address] S/P AVR; S/P ventricular septal myectomy Social History Tobacco Use Types Packs/Day Years [...] Sign Reading Time Taken Comments Blood Pressure 141/90 03/08/2022 11:55 AM EST Pulse 67 03/08/2022 11:55 AM EST Temperature - - Respiratory Rate - - Oxygen Saturation 100% 03/08/2022 11:55 AM EST Inhaled Oxygen Concentration - - Weight 60 kg (132 lb 3.2 oz) 03/08/2022 11:55 AM EST Height 165.1 cm (5' 5) 03/08/2022 11:55 AM EST Body Mass Index 22 03/08/2022 11:55 AM EST documented in this encounter Progress Notes * Efrain Felder MD - 03/08/2022 11:40 AM EST I am seeing Ivana in followup. She has had her ups and downs. Some days she feels great and other days she does not. Pain has not been a big issue. Breathing seems ok. Energy level has been a problem. She has had significant constipation as well. She saw Dr. Franco, who had her start a ZIO patch for continued palpitations. CXR shows clear lung rodríguez without effusion ECHO shows hyperdynamic lv function, no significant outflow tract obstruction, mild MR and no significant AI Outpatient Medications Marked as Taking for the 03/08/22 encounter (Office Visit) with Efrain Felder MD Medication Sig Dispense Refill ??? traZODone (Desyrel) 50 mg Tablet TAKE ONE TO TWO TABLETS BY MOUTH AT BEDTIME NEEDED ??? warfarin (Coumadin) 2.5 mg Tablet Take as instructed by your PCP 90 tablet 0 ??? LORazepam (Ativan) 0.5 mg Tablet Take 0.5 mg by mouth 2 times daily as needed. ??? aspirin 81 mg Tablet, Chewable Take 81 mg by mouth daily for 90 days. 30 tablet 2 ??? metoproloL tartrate (Lopressor) 25 mg Tablet Take 1 tablet by mouth 2 times daily for 90 days. 60 tablet 2 ??? atorvastatin (Lipitor) 10 mg Tablet Take 10 mg by mouth daily. ??? niraparib (Zejula) 100 mg capsule Take 1 capsule (100 mg) by mouth daily. 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 buPROPion XL (Wellbutrin XL) 300 mg Tablet Extended Release 24 hr TK 1 T PO QAM Physical Exam: BP 141/90 Pulse 67 Ht 165.1 cm (5' 5) Wt 60 kg (132 lb 3.2 oz) SpO2 100% BMI 22.00 kg/m?? Sternum is stable, incision is well healed No edema A/P: I think she is actually doing pretty well. She may resume driving and increase activity as tolerated. She will stay on coumadin until the zio is finished and she gets the results. I will let decided about this. She does not need to see me again, but I would be happy to see her should the need arise. documented in this encounter Plan of Treatment Upcoming Encounters Date Type Department Care Team (Latest Contact Info) Description 12/25/2023 9:[address] [place] [address] Xavier Malhotra MD [facility] [place] [address] 12/29/2023 Hospital Encounter [place] [address] Xavier Malhotra MD [facility] [place] [address] Paroxysmal atrial fibrillation 12/29/2023 7:30 AM EDT - 12/29/2023 12:00 PM EDT Surgery [place] [address] Xavier Malhotra MD [facility] [place] [address] ELECTROPHYSIOLOGY PROCEDURE 01/14/2024 10:40 AM EDT Office Visit Cardiology at [place] [phone] Carmen Castaneda PA [facility] [place] [address] Scheduled Procedures Name Priority Associated Diagnoses Date/Ti [...] as of this encounter Visit Diagnoses Diagnosis S/P AVR Heart valve replaced by other means S/P ventricular septal myectomy Other postprocedural status Paroxysmal atrial fibrillation Atrial fibrillation Paroxysmal atrial fibrillation Atrial fibrillation documented in this encounter Care Teams Director Of Medical Review Relationship Specialty Start Date End Date Evelyne Hunt APRN [address] [place] [address] PCP - General Internal Medicine 09/23/17 documented as of this encounter
--- OUTSIDE RECORDS SUMMARY | 2023-12-01 02:10 | XMS_ITS | Encounter Summary ---
Author Organization [facility] [place] [address] Care Team Providers Care Welding Machine Setter Name Role Phone Kiki Huntyce Dat STEVEN Primary Care Provider [phone] Reason for Visit * Reason Comments Specialty Pharmacy Review Zejula 100mg c apsule Encounter Details Date Type Department Care Team (Late st Contact Info) Description 04/08/2022 Specialty [place] [address] Jody Zaragoza, [facility] Social History Tobacco Use Types Packs/Day Years [...] as of this encounter Progress Notes * Jody Zaragoza - 04/08/2022 11:59 PM EST The [facility] has completed a benefits investigation for Gabi Luna to review their eligibility to fill at [facility]. Per patient's medication list they are prescribed Zejula 100mg capsule and the medication is able to be filled at the [facility]. The patient currently fills the medication through [facility] with a $0 copay. No PA required at this time. documented in this encounter Plan of Treatment Upcoming Encounters Date Type Department Care Team (Latest Contact Info) Description 12/25/2023 9:[address] [place] [phone] Xavier Malhotra MD [facility] [place] [address] 12/29/2023 Hospital Encounter [place] [phone] Xavier Malhotra MD [facility] [place] [address] Paroxysmal atrial fibrillation 12/29/2023 7:30 AM EDT - 12/29/2023 12:00 PM EDT Surgery [place] [phone] Xavier Malhotra MD [facility] [place] [address] ELECTROPHYSIOLOGY PROCEDURE 01/14/2024 10:40 AM EDT Office Visit Cardiology at [address] [phone] Carmen Castaneda PA [facility] [address] Scheduled Procedures Name Priority Associated Diagnoses Date/Ti me TRANSESOPHAGEAL ECHO DURING CATH/EP PROCEDURE Paroxysmal atrial fibrillation 12/29/2023 7:30 AM EDT documented as of this encounter Goals Goal Patient Goal Type Associated Problems Recent Progress Patient-Stated? Author DH Home Medication Compliance and Understanding Patient Facing Action Plan Lani Love, [facility] Note: Maintain control of disease for as long as possible as assessed by tumor marker levels and scans in clinic every 3 to 6 months documented as of this encounter Visit Diagnoses Not on filedocumented in this encounter Care Teams Welding Machine Setter Relationship Specialty Start Date End Date Evelyne Hunt, ASSOCIATE TRAINER [address] [place] [address] PCP - General Internal Medicine 09/23/17 documented as of this encounter
--- OUTSIDE RECORDS SUMMARY | 2023-12-01 02:10 | XMS_ITS | Encounter Summary ---
Author Organization [facility] [place] [address] Care Team Providers Care Career Based Intervention Coordinator Name Role Phone Evelyne Hunt Dat STEVEN Primary Care Provider [phone] Encounter Details Date Type Department Care Team (Late st Contact Info) Description 05/02/2022 Orders Only [place] [address] Natalie Vallejo MD [facility] [place] [address] Social History Tobacco Use Types Packs/Day Years [...] AM EDT [place] [address] Xavier Malhotra MD [facility] [place] [address] 12/29/2023 Hospital Encounter [place] [address] Xavier Malhotra MD [facility] [place] [address] Paroxysmal atrial fibrillation 12/29/2023 7:30 AM EDT - 12/29/2023 12:00 PM EDT Surgery [place] [phone] Xavier Malhotra MD [facility] [place] [address] ELECTROPHYSIOLOGY PROCEDURE 01/14/2024 10:40 AM EDT Office Visit Cardiology at [address] [phone] Carmen Castaneda PA [facility] [place] [address] Scheduled Procedures Name Priority Associated Diagnoses Date/Ti me TRANSESOPHAGEAL ECHO DURING CATH/EP PROCEDURE Paroxysmal atrial fibrillation 12/29/2023 7:30 AM EDT documented as of this encounter Goals Goal Patient Goal Type Associated Problems Recent Progress Patient-Stated? Author DH Home Medication Compliance and Understanding Patient Facing Action Plan Lani Love, [facility] Note: Maintain control of disease for as long as possible as assessed by tumor marker levels and scans in clinic every 3 to 6 months documented as of this encounter Visit Diagnoses Not on filedocumented in this encounter Care Teams Career Based Intervention Coordinator Relationship Specialty Start Date End Date Evelyne Hunt APRN [address] [place] [address] PCP - General Internal Medicine 09/23/17 documented as of this encounter
--- OUTSIDE RECORDS SUMMARY | 2023-12-01 02:10 | XMS_ITS | Encounter Summary ---
Author Organization [facility] [place] [address] Care Team Providers Care Tree Pruner Name Role Phone Kiki Huntyce Dat STEVEN Primary Care Provider [phone] Reason for Visit * Reason Comments Specialty Pharmacy Review Zajula 100mg c apsule Encounter Details Date Type Department Care Team (Late st Contact Info) Description 10/07/2022 Specialty [place] [address] Jody Zaragoza, [facility] Social History Tobacco Use Types Packs/Day Years [...] encounter Progress Notes * Jody Zaragoza - 10/07/2022 11:59 PM EDT The [facility] has completed a benefits investigation for Gabi Luna to review their eligibility to fill at [facility]. Per patient's medication list they are prescribed Zejula 100mg capsule and the medication is able to be filled at the [facility]. The patient currently fills the medication through [facility] with a $0 copay. No PA required at this time. documented in this encounter Plan of Treatment Upcoming Encounters Date Type Department Care Team (Latest Contact Info) Description 12/25/2023 9:[address] Scan at [place] [phone] Xavier Malhotra MD [facility] [place] [address] 12/29/2023 Hospital Encounter Electrophysiology Lab at [place] [phone] Xavier Malhotra MD [facility] [place] [address] Paroxysmal atrial fibrillation 12/29/2023 7:30 AM EDT - 12/29/2023 12:00 PM EDT Surgery [place] [phone] Xavier Malhotra MD [facility] [place] [address] ELECTROPHYSIOLOGY PROCEDURE 01/14/2024 10:40 AM EDT Office Visit Cardiology at [address] [phone] Carmen Castaneda PA [facility] [place] [address] Scheduled Procedures Name Priority Associated Diagnoses Date/Ti me TRANSESOPHAGEAL ECHO DURING CATH/EP PROCEDURE Paroxysmal atrial fibrillation 12/29/2023 7:30 AM EDT documented as of this encounter Goals Goal Patient Goal Type Associated Problems Recent Progress Patient-Stated? Author DH Home Medication Compliance and Understanding Patient Facing Action Plan Lani Love, [facility] Note: Maintain control of disease for as long as possible as assessed by tumor marker levels and scans in clinic every 3 to 6 months documented as of this encounter Visit Diagnoses Not on filedocumented in this encounter Care Teams Tree Pruner Relationship Specialty Start Date End Date Evelyne Hunt, PROCESS ARCHITECT [address] [place] [address] PCP - General Internal Medicine 09/23/17 documented as of this encounter
--- OUTSIDE RECORDS SUMMARY | 2023-12-01 02:10 | XMS_ITS | Encounter Summary ---
Author Organization [facility] [place] [address] Care Team Providers Care Testing Engineer Name Role Phone Evelyne Hunt Dat STEVEN Primary Care Provider [phone] Encounter Details Date Type Department Care Team (Late st Contact Info) Description 08/20/2022 Orders Only [place] [address] Iram Laird MD [facility] [place] [address] Social History Tobacco Use Types [...] 9:[address] [place] [address] Xavier Malhotra MD [facility] [place] [address] 12/29/2023 Hospital Encounter [place] [address] Xavier Malhotra MD [facility] [place] [address] Paroxysmal atrial fibrillation 12/29/2023 7:30 AM EDT - 12/29/2023 12:00 PM EDT Surgery [place] [phone] Xavier Malhotra MD [facility] [place] [address] ELECTROPHYSIOLOGY PROCEDURE 01/14/2024 10:40 AM EDT Office Visit Cardiology at [address] [phone] Carmen Castaneda PA [facility] [place] [address] Scheduled Procedures Name Priority Associated Diagnoses Date/Ti [...] on filedocumented in this encounter Care Teams Testing Engineer Relationship Specialty Start Date End Date Evelyne Hunt APRN [address] [place] [address] PCP - General Internal Medicine 09/23/17 documented as of this encounter
--- OUTSIDE RECORDS SUMMARY | 2023-12-01 02:10 | XMS_ITS | Encounter Summary ---
Author Organization [facility] [place] [address] Care Team Providers Care Vice President Medical Affairs Name Role Phone Kiki Huntyce Dat STEVEN Primary Care Provider [phone] Reason for Visit * Reason Comments Specialty Refill Management Encounter Details Date Type Department Care Team (Late st Contact Info) Description 06/17/2022 Specialty [place] [phone] Cait Bass CPHT Social History Tobacco Use Types Packs/Day Years [...] of this encounter Progress Notes * Cait Bass CPHT - 06/17/2022 10:03 AM EST Clinical Management Plan: Refill Specialty Pharmacy Consultation; Cait Bass CPHT Comprehensive Medication Management (CMM) Gabi Benitoyvonne Ms. Gabi Luna is a 61 y.o. (1960) female who was contacted in regard to a specialty medication refill reminder. Contact made with patient regarding Zejula. A review of the medication therapy was performed. The medication was refilled as scheduled, and all medication related questions and concerns were addressed. The specialty pharmacy staff will follow up with the patient 5-7 days prior to next refill. Was a change made to the Care Plan: No Allergies and Drug intolerance: Allergies Allergen Reactions ??? Paroxetine ??? Penicillins Anaphylaxis PAT Penicillin Allergy Risk Assessment 01/07/2022: Moderate risk reaction. Patient referred to allergy clinic for pre-op testing. Patient refused referral. ??? Sertraline ??? Venlafaxine ??? Taxol [Paclitaxel] Palpitations and Other (See Comments) 17 mls into Taxol C/O of palpitations/lower back pain.Drug stopped. Benadryl/Pepcid/Ativan given. Was able to start drug at half rate when symptoms subsided and increased rate every 30-60 mins. Was able to complete drug. Medication Reconciliation Discrepancies (compared to [facility] med list) No Specialty Pharmacy Refill Questionnaire Refill Questionnaire 06/17/2022 What is the name of the specialty medication you are refilling? Zejula Are you taking any new medications? No Please explain - Any new medical condition? No Please explain - Any new allergies? No Any new side effects that are bothersome? No What date will you need this fill by? 06/24/2022 Adherence: Any missed doses? No Patient understands no changes to current drug regimen were made. Cait Bass CPHT 06/17/22 10:04 AM documented in this encounter Plan of Treatment Upcoming Encounters Date Type Department Care Team (Latest Contact Info) Description 12/25/2023 9:[address] [place] [phone] Xavier Malhotra MD [facility] [place] [address] 12/29/2023 Hospital Encounter [place] [phone] Xavier Malhotra MD [facility] [place] [address] Paroxysmal atrial fibrillation 12/29/2023 7:30 AM EDT - 12/29/2023 12:00 PM EDT Surgery [place] [address] Xavier Malhotra MD [facility] [place] [address] ELECTROPHYSIOLOGY PROCEDURE 01/14/2024 10:40 AM EDT Office Visit Cardiology at [address] [phone] Carmen Castaneda PA [facility] [place] [address] Scheduled Procedures Name Priority Associated Diagnoses Date/Ti [...] on filedocumented in this encounter Care Teams Vice President Medical Affairs Relationship Specialty Start Date End Date Evelyne Hunt APRN [address] [place] [address] PCP - General Internal Medicine 09/23/17 documented as of this encounter
--- OUTSIDE RECORDS SUMMARY | 2023-12-01 02:10 | XMS_ITS | Encounter Summary ---
Author Organization [facility] [place] [address] Care Team Providers Care Principal Systems Architect Name Role Phone Kiki Huntyce Dat STEVEN Primary Care Provider [phone] Encounter Details Date Type Department Care Team (Latest Contact Info) Description 10/07/2022 Travel Social History Tobacco Use Types Packs/Day [...] 9:[address] [place] [address] Xavier Malhotra MD [facility] [place] [address] 12/29/2023 Hospital Encounter [place] [phone] Xavier Malhotra MD [facility] [place] [address] Paroxysmal atrial fibrillation 12/29/2023 7:30 AM EDT - 12/29/2023 12:00 PM EDT Surgery [place] [address] Xavier Malhotra MD [facility] [address] ELECTROPHYSIOLOGY PROCEDURE 01/14/2024 10:40 AM EDT Office Visit Cardiology at [address] [phone] Carmen Castaneda PA [facility] [place] [address] Scheduled Procedures Name Priority Associated Diagnoses Date/Ti [...] on filedocumented in this encounter Care Teams Principal Systems Architect Relationship Specialty Start Date End Date Evelyne Hunt APRN [address] [place] [address] PCP - General Internal Medicine 09/23/17 documented as of this encounter
--- OUTSIDE RECORDS SUMMARY | 2023-12-01 02:10 | XMS_ITS | Encounter Summary ---
Author Organization [facility] Address [facility] [place] [address] Care Team Providers Care Lithostripper Name Role Phone Evelyne Hunt APRN Primary Care Provider [phone] Encounter Details Date Type Department Care Team (Latest Contact Info) Description 04/08/2022 1:00 PM EST - 04/08/2022 11:59 PM EST Hospital Encounter Hematology [place] [address] Discharge Disposition: Home Social History Tobacco Use [...] hr TK 1 T PO QAM 10/01/2019 LORazepam (Ativan) 0.5 mg Tablet Take 0.5 mg by mouth 2 times daily as needed. 02/11/2022 07/29/2022 aspirin 81 mg Tablet, Chewable Take 81 [...] 9:[address] [place] [address] Xavier Malhotra MD [facility] [place] [address] 12/29/2023 Hospital Encounter [place] [address] Xavier Malhotra MD [facility] [place] [address] Paroxysmal atrial fibrillation 12/29/2023 7:30 AM EDT - 12/29/2023 12:00 PM EDT Surgery [place] [address] Xavier Malhotra MD [facility] [place] [address] ELECTROPHYSIOLOGY PROCEDURE 01/14/2024 10:40 AM EDT Office Visit Cardiology at [address] [address] Carmen Castaneda PA [facility] [place] [address] Scheduled Procedures Name Priority Associated Diagnoses Date/Ti me TRANSESOPHAGEAL ECHO DURING CATH/EP PROCEDURE Paroxysmal atrial fibrillation 12/29/2023 7:30 AM EDT documented as of this encounter Goals Goal Patient Goal Type Associated Problems Recent Progress Patient-Stated? Author DH Home Medication Compliance and Understanding Patient Facing Action Plan Lani Love, [facility] Note: Maintain control of disease for as long as possible as assessed by tumor marker levels and scans in clinic every 3 to 6 months documented as of this encounter Visit Diagnoses Not on filedocumented in this encounter Care Teams Lithostripper Relationship Specialty Start Date End Date Evelyne Hunt APRN [address] [place] [address] PCP - General Internal Medicine 09/23/17 documented as of this encounter
--- OUTSIDE RECORDS SUMMARY | 2023-12-01 02:10 | XMS_ITS | Encounter Summary ---
Author Organization [facility] [place] [address] Care Team Providers Care Boiling House Hand Name Role Phone Evelyne Hunt Dat STEVEN Primary Care Provider [phone] Reason for Visit * Reason Comments Medication Refill Encounter Details Date Type Department Care Team (Late st Contact Info) Description 07/16/2022 Specialty [place] [phone] Lizz Jones [facility] Social History Tobacco Use Types Packs/Day Years [...] as of this encounter Progress Notes * Lizz Jones RPH - 07/16/2022 9:26 AM EDT Clinical Management Plan: Refill Specialty Pharmacy Consultation; Lizz Jones Red Comprehensive Medication Management (CMM) Gabi Benitoyvonne Ms. Gabi Luna is a 61 y.o. (1960) female who was contacted in regard to a specialty medication refill reminder. Contact made with caregiver. Caregiver name: patient, Ivana Alonso. A review of the medication therapy was performed. The medication was refilled as scheduled, and all medication related questions and concerns were addressed. The specialty pharmacy staff will follow up with the patient 5-7 days prior to next refill. Was a change made to the Care Plan: no If yes, should the medication be held: No Assessment and Recommendations: Medication Management Type of Medication Management: targeted medication review Recipient: beneficiary Provider: plan sponsor pharmacist Visit Type: [facility] Follow-up Time Spent: 1-15 min Method of Contact: by telephone Cognitive Ability: good Cognitive Impairment Status Verified this Year: no Allergies and Drug intolerance: Allergies Allergen Reactions [...] complete drug. Medication Reconciliation Discrepancies (compared to [facility] med list) -now taking levothyroxine Specialty Pharmacy Refill Questionnaire 07/16/2022 Refill Questionnaire What is the name of the specialty medication you are refilling? Zejula Are you taking any new medications? Yes Please explain levothyroxine Any new medical condition? No Any new allergies? No Any missed doses since your last fill? 0 Any new side effects that are bothersome? No What date will you need this fill by? 07/23/2022 Multiple values from one day are sorted in reverse-chronological order Adherence: Specialty Med Adherence Patient Demonstrates Understanding of Importance of Adherence: Yes Educational Information or Adherence Tools Provided: No How many doses does patient have remaining at home?: 8 Patient Reported X Missed Doses in the Last Month: 0 Provider-Estimated Medication Adherence Level: 90-100% Adherence Tools Used: directed education, calendar Pt understands no changes to current drug regimen were made at the appointment and that [facility] is providing recommendations (summary located at top of note) for provider review and follow up. Lizz Jones RPH 07/16/22 9:29 AM documented in this encounter Plan of Treatment Upcoming Encounters Date Type Department Care Team (Latest Contact Info) Description 12/25/2023 9:[address] Scan at [place] [phone] Xavier Malhotra MD [facility] [address] 12/29/2023 Hospital Encounter Electrophysiology Lab at [place] [phone] Xavier Malhotra MD [facility] [place] [address] Paroxysmal atrial fibrillation 12/29/2023 7:30 AM EDT - 12/29/2023 12:00 PM EDT Surgery Electrophysiology Lab at [place] [phone] Xavier Malhotra MD [facility] [place] [address] ELECTROPHYSIOLOGY PROCEDURE 01/14/2024 10:40 AM EDT Office Visit Cardiology at [address] [phone] Carmen Castaneda PA [facility] [place] [address] Scheduled Procedures Name Priority Associated Diagnoses Date/Ti me TRANSESOPHAGEAL ECHO DURING CATH/EP PROCEDURE Paroxysmal atrial fibrillation 12/29/2023 7:30 AM EDT documented as of this encounter Goals Goal Patient Goal Type Associated Problems Recent Progress Patient-Stated? Author [facility] Medication Compliance and Understanding Patient Facing Action Plan Lani Love, [facility] Note: Maintain control of disease for as long as possible as assessed by tumor marker levels and scans in clinic every 3 to 6 months documented as of this encounter Visit Diagnoses Not on filedocumented in this encounter Care Teams Boiling House Hand Relationship Specialty Start Date End Date Evelyne Hunt APRN [address] [place] [address] PCP - General Internal Medicine 09/23/17 documented as of this encounter
--- OUTSIDE RECORDS SUMMARY | 2023-12-01 02:10 | XMS_ITS | Encounter Summary ---
Author Organization [facility] [place] [address] Care Team Providers Care Air Motor Repairer Name Role Phone Kiki Huntyce Dat STEVEN Primary Care Provider [phone] Reason for Visit * Reason Comments Medication Management Medication Refill Encounter Details Date Type Department Care Team (Late st Contact Info) Description 02/20/2022 Specialty Pharmacy [place] [phone] Gus Call, [facility] Social History Tobacco Use Types Packs/Day [...] as of this encounter Progress Notes * Gus Call RPH - 02/20/2022 2:06 PM EDT Specialty Pharmacy Consultation; Gus Call RPH Comprehensive Medication Management (CMM) Gabi Benitoyvonne Diagnosis: ovarian cancer Therapy Start Date: 01/06/2020 Contact in person or via telephone: telephone Ms. Gabi Luna is a 61 y.o. (1960) female who was contacted in regard to specialty medication. Spoke with patient regarding ZEJULA. A review of the medication therapy was performed. The medication was refilled as scheduled, and all medication related questions and concerns were addressed. The specialty pharmacy staff will follow up with the patient 5-7 days prior to next refill. Is the patient willing to proceed with the Clinical Assessment? Yes Summary and Recommendations: Provided follow-up consult and assessment with Ivana regarding her Zejula therapy. Ivana has been on the Zejula for a few years and said that she is tolerating it very well with no side effects. She still takes 100mg once a day by mouth. She was a bit hesitant to do the follow-up because she is rehabi litating at home from recent cardiac surgery but we were able to complete the encounter without herhaving to get up and check any of her meds, and she was otherwise alert, oriented, and engaged. Ivana opted out of formal review of the drug information since she has been using it for this length of time without problems. But we reviewed her allergy list and reconciled / updated her medication list. While she didn't rate her quality of life in the context of her rehab, she said that prior to surgery she felt fine and that the Zejula had no effect on her quality of life. She denied any issues with pain, aside from the surgery, and said that her mood is fine other than she does not like the process of rehab and having limited activity. But no s/s depression offered. Ivana's goal is maintainingcontrol of her disease as long as possible, and it sounds like she is on target with that. We also reviewed safe handling, storage, and home safety - especially in the context of her post-surgical status. She mentioned that she has frequent visits from home health workers which helps with home safety. Clinic follow-up needed: yes - Ivana will maintain her regularly scheduled onc FUVs Allergies and Drug intolerance: Allergies Allergen Reactions [...] 30-60 mins. Was able to complete drug. Problem List: Patient Active Problem List Diagnosis Code ??? Hypothyroidism E03.9 ??? SVT (supraventricular tachycardia) I47.1 ??? Bicuspid aortic valve Q23.1 ??? Chest pain R07.9 ??? Aortic valve stenosis I35.0 ??? HTN (hypertension) I10 ??? 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 BRCA negative Z13.71 ??? (aortic stenosis) I35.0 Special Dietary or Hydration Requirements: no Medication Reconciliation Discrepancies (compared to [facility] med list) yes - imported prn lorazepam from outside pharmacy records, and marked clindamycin as not using at this time Medication List: Current Outpatient Medications Medication Sig Note Dispense Refill ??? LORazepam (Ativan) 0.5 mg Tablet Take 0.5 mg by mouth 2 times daily as needed. ??? acetaminophen (Tylenol) 500 mg Tablet Take 2 tablets by mouth every 6 hours as needed for Pain.30 tablet 1 ??? AMIOdarone (PACERONE) 400 mg Tablet Take 1 tablet by mouth daily for 30 days. 30 tablet 0 ??? aspirin 81 mg Tablet, Chewable Take 81 mg by mouth daily for 90 days. 30 tablet 2 ??? metoproloL tartrate (Lopressor) 25 mg Tablet Take 1 tablet by mouth 2 times daily for 90 days. 60 tablet 2 ??? warfarin (Coumadin) 2.5 mg Tablet Take as instructed by your PCP 30 tablet 0 ??? atorvastatin (Lipitor) 10 mg Tablet Take 10 mg by mouth daily. ??? niraparib (Zejula) 100 mg capsule Take 1 capsule (100 mg) by mouth daily. 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 buPROPion XL (Wellbutrin XL) 300 mg Tablet Extended Release 24 hr TK 1 T PO QAM ??? clindamycin (CLEOCIN) 300 mg Capsule Take 2 capsules by mouth as needed (dental procedures). Take 1 hour prior to dental procedures (Patient not taking: Reported on 02/20/2022) 02/20/2022: Not using 2 capsule 0 No current facility-administered medications for this visit. Most Recent Vitals: Ht Readings from Last 1 Encounters: 01/29/22 166.4 cm (5' 5.5) Wt Readings from Last 3 Encounters: 02/05/22 63.2 kg (139 lb 4.8 oz) 01/07/22 60.6 kg (133 lb 8 oz) 12/17/21 59.5 kg (131 lb 3.2 oz) Temp Readings from Last 3 Encounters: 02/06/22 37 ??C (98.6 ??F) (Oral) 12/17/21 36.6 ??C (97.9 ??F) (Temporal) 05/01/21 36.7 ??C (98 ??F) (Temporal) BP Readings from Last 3 Encounters: 02/06/22 146/89 01/07/22 144/73 12/17/21 117/78 Pulse Readings from Last 3 Encounters: 02/06/22 66 01/07/22 74 12/17/21 65 There is no height or weight on file to calculate BMI. Pertinent Lab values: Lab Results Component Value Date NA 136 02/01/2022 K 3.6 02/06/2022 CL 103 02/01/2022 CO2 24 02/01/2022 BUN 10 02/01/2022 CREATININE 0.64 (L) 02/01/2022 GLUCOSE 95 02/01/2022 GLUCFASTING 100 (H) 12/17/2021 CALCIUM 8.7 02/01/2022 Lab Results Component Value Date ALT 27 02/06/2022 AST 16 02/06/2022 ALKPHOS 81 02/06/2022 BILITOT 0.4 02/06/2022 BILIDIR 0.1 02/06/2022 ALBUMIN 3.7 02/06/2022 PROT 5.9 (L) 02/06/2022 Lab Results Component Value Date WBC 8.9 02/01/2022 HGB 9.6 (L) 02/01/2022 HCT 27.4 (L) 02/01/2022 MCV 108.3 (H) 02/01/2022 PLATELET 145 02/01/2022 No results found for: HA1C Immunization History Administered Date(s) Administered ??? Influenza Vaccine (Novel) [id number], Injectable 04/06/2009 Assessment and Recommendations: Patient Counseling Patient accepted offer to membership counselor: select all, adherence/missed doses, cost of medications/cost implications, doses and administration, possible drug/OTC drug and food interactions, possible adverse side effects and management, pharmacy contact information, lab monitoring/follow up, possible drug/Rx drug interactions, safe handling, storage, and disposal, therapeutic rationale Medication Management Summary Topics discussed: reviewed medication changes since last visit, medication safety precautions education provided, drug interaction education provided to patient, safe handling, storage, and disposal discussed, possible adverse effects and management discussed, lab monitoring and follow-up discussed, cost of medications and cost implications discussed, adherence and missed doses discussed, monitoring medication discussed, over the counter products discussed, referral needs discussed Number of adverse drug events identified: 0 Time spent: 16-30 min Treatment Outcomes 02/20/2022 1435 Disease progression: Stable Patient Overall Status: Stable Reviewed in detail with patient: Dose appropriateness based on recommended standard dosing Current medication list including OTC medications Medication and disease problems Allergies Comorbid conditions/ Problem List Past adverse events if any Special needs of the patient including physical and cognitive limitations Goals of therapy and management strategies Warnings, precautions, and contraindications Side effects Drug-drug and drug-food interactions Administration instructions including dose, frequency and method Handling, storage, and disposal Verifying expiration dates on products before use Rotating medication inventory to use oldest product first Relevant lab data Treatments impact on disease Dose appropriateness based on recommended standard dosing schedule, including any variations from FDA approved dosing Patient verbalizes understanding and is able to read-back instructions on self-administration/injection, proper storage, drug stability, importance of adherence and management strategies, side effect avoidance and mitigation strategies, and interruptions in therapy: Yes Patient is aware a licensed pharmacist is available 24 hours a day, 7 days a week to discuss medication-related questions or concerns: Yes Patient verbalizes understanding of the common side effect profile of their medication. The patient is able to call 911 or seek urgent care if signs/symptoms of allergy or harmful adverse reactions occur: Yes Additional care/services needed: No Additional equipment/supplies required: No Patient satisfied with care/services provided: Yes Specialty Assessment: Physical and Cognitive Assessment: Functional limitations identified: Yes If yes, explain: s/p open heart surgery Cognitive limitations identified: No Concern regarding orientation/memory: No Concern with reasoning/judgement: No Is patient a fall risk: Yes If yes, explain: rehab at home but has home health to help w safety Social Assessment: Does patient have a primary janitor caretaker: No Does patient have an emergency contact on file: Yes Does patient need referral to social media marketing analyst: No Does patient need referral to advocacy group: No Home Health Assessment: Is the patient in a safe home environment?: Yes Is the patient able to store their medication as directed?: Yes Does the patient have a support network at home?: Yes Reviewed potential home safety hazards with patient: Yes Economic Assessment: Patient is agreeable to medication copay: Yes Actual Copay: $: 0 Days Supply: 30 Welcome Packet and Rights and Responsibilities: Patient provided welcome packet/rights and responsibilities: Yes Date Confirmed: 08/22/20 Confirmation: Verbal Specialty Med Adherence Patient Demonstrates Understanding of Importance of Adherence: Yes Educational Information or Adherence Tools Provided: No How many doses does patient have remaining at home?: 4 Patient Reported X Missed Doses in the Last Month: 4 If >0, reason for missed doses: instructed by provider to hold or take differently Other reason for missed dose: told to hold in proximity to cardiac surgery Provider-Estimated Medication Adherence Level: 90-100% Adherence Tools Used: directed education, calendar Therapy Assessment: Current Medication Dosing/Route/Frequency: ZEJULA: Take one capsule (100mg) by mouth every day. Appropriate Therapy: Yes Effective: yes, in the context of patient maintaining her quality of life during therapy and not feeling any side effects as well as provider noting that she is doing well from a cancer standpoint. Patient-Reported Side Effects: no Patient assessed for pertinent side effects such as arthralgia, neuropathy, vision changes, cough, rash, hand/foot syndrome, hot flashes, nausea, and diarrhea or constipation. Adjunct medication needed? no Is the patient experiencing pain? no Patient Goals: Hematology/Oncology related goals may include remission, palliative or hospice care, a bridge to future surgery, transplant, and radiation or infusion therapy. Patient's specific desired goal: maintain control of disease for as long as possible Measured by: tumor markers, scans, provider assessments, patient-reported symptoms Time-frame to meet goal: assessed every 3-6 months or as indicated Is the patient on track to achieve goals of therapy? Yes If no, what are the barriers and action plan to reach the goal: n/a Care Plan and Interventions: Care Plan Reviewed and Approved by both Pharmacist and Patient: Yes Did Care Plan Change? Yes If yes: Change to plans of care based on: Patient's request: no Condition: yes - aortic stenosis diagnosed & repair needed Response to therapy: no Provider request: recommended by non-onc provider (carburizing furnace operator) Follow-up needed: Yes Interventions (if applicable): no Patient experienced change in condition that affects treatment: yes - Zejula was held for a short time pre and post surgery Patient Satisfied with Therapy: yes - happy that she is not experiencing any side effects Pharmacist follow-up needed: Yes Patient understands no changes to current drug regimen were made at the appointment and that [facility]summary located at top of note) for provider review and follow up. Gus Call RPH 02/20/22 2:35 PM documented in this encounter Plan of Treatment Upcoming Encounters Date Type Department Care Team (Latest Contact Info) Description 12/25/2023 9:[address] [place] [phone] Xavier Malhotra MD [facility] [place] [address] 12/29/2023 Hospital Encounter [place] [phone] Xavier Malhotra MD [facility] [place] [place] [address] Paroxysmal atrial fibrillation 12/29/2023 7:30 AM EDT - 12/29/2023 12:00 PM EDT Surgery [place]rophys[place] [phone] Xavier Malhotra MD [facility] [place] [address] ELECTROPHYSIOLOGY PROCEDURE 01/14/2024 10:40 AM EDT Office Visit Cardiology at [address] [phone] Carmen Castaneda PA [facility] [place] [address] Scheduled Procedures Name Priority Associated Diagnoses Date/Ti me TRANSESOPHAGEAL ECHO DURING CATH/EP PROCEDURE Paroxysmal atrial fibrillation 12/29/2023 7:30 AM EDT documented as of this encounter Goals Goal Patient Goal Type Associated Problems Recent Progress Patient-Stated? Author [facility] Medication Compliance and Understanding Patient Facing Action Plan Lani Love, [facility] Note: Maintain control of disease for as long as possible as assessed by tumor marker levels and scans in clinic every 3 to 6 months documented as of this encounter Visit Diagnoses Not on filedocumented in this encounter Care Teams Air Motor Repairer Relationship Specialty Start Date End Date Evelyne Hunt APRN [address] [place] [address] PCP - General Internal Medicine 09/23/17 documented as of this encounter
--- OUTSIDE RECORDS SUMMARY | 2023-12-01 02:10 | XMS_ITS | Encounter Summary ---
Author Organization [facility] [place] [address] Care Team Providers Care Dag Coater Name Role Phone Evelyne Hunt Dat STEVEN Primary Care Provider [phone] Encounter Details Date Type Department Care Team (Late st Contact Info) Description 07/16/2022 Orders Only Gynecology [place] [address] Sayda Doan RN History of ovarian cancer Social History Tobacco Use Types Packs/Day Years [...] 9:[address] [place] [address] Xavier Malhotra MD [facility] [place] [address] 12/29/2023 Hospital Encounter [place] [address] Xavier Malhotra MD [facility] [place] [address] Paroxysmal atrial fibrillation 12/29/2023 7:30 AM EDT - 12/29/2023 12:00 PM EDT Surgery [place] [phone] Xavier Malhotra MD [facility] [place] [address] ELECTROPHYSIOLOGY PROCEDURE 01/14/2024 10:40 AM EDT Office Visit Cardiology at [address] [phone] Carmen Castaneda PA [facility] [place] [address] Scheduled Procedures Name Priority Associated Diagnoses Date/Ti me TRANSESOPHAGEAL ECHO DURING CATH/EP PROCEDURE Paroxysmal atrial fibrillation 12/29/2023 7:30 AM EDT documented as of this encounter Goals Goal Patient Goal Type Associated Problems Recent Progress Patient-Stated? Author [facility] Medication Compliance and Understanding Patient Facing Action Plan No Lani Vargas, [facility] Note: Maintain control of disease for as long as possible as assessed by tumor marker levels and scans in clinic every 3 to 6 months documented as of this encounter Visit Diagnoses Diagnosis History of ovarian cancer Personal history of malignant neoplasm of ovary Paroxysmal atrial fibrillation Atrial fibrillation Paroxysmal atrial fibrillation Atrial fibrillation documented in this encounter Care Teams Dag Coater Relationship Specialty Start Date End Date Evelyne Hunt APRN [address] [place] [address] PCP - General Internal Medicine 09/23/17 documented as of this encounter
--- OUTSIDE RECORDS SUMMARY | 2023-12-01 02:10 | XMS_ITS | Encounter Summary ---
Author Organization [facility] Address [facility] [place] [address] Care Team Providers Care Political Anthropologist Name Role Phone Kiki Huntyce Dat STEVEN Primary Care Provider [phone] Reason for Visit * Reason Comments Established 6month f/u STIC cons ent Encounter Details Date Type Department Care Team (Late st Contact Info) Description 10/07/2022 9:20 AM EDT Office Visit [place] [address] Iram Laird MD [facility] OBSTETRICS [place] [address] Encounter for chemotherapy management; Ovarian cancer, lateral, stage IIIb high-grade serous/endometrioid, 07/20/2019 s/p FREDI/BSO/oment/PPALND/ RSReanstomosis; BRCA negative; Lichen sclerosus et atrophicus Social History Tobacco Use Types Packs/Day Years [...] Sign Reading Time Taken Comments Blood Pressure 123/89 10/07/2022 8:26 AM EDT Pulse 60 10/07/2022 8:26 AM EDT Temperature 35.6 ??C (96.1 ??F) 10/07/2022 8:26 AM ED T Respiratory Rate 18 10/07/2022 8:26 AM EDT Oxygen Saturation 99% 10/07/2022 8:26 AM EDT Inhaled Oxygen Concentration - - Weight 57.4 kg (126 lb 8 oz) 10/07/2022 8:26 AM EDT Height - - Body Mass Index 21.05 05/07/2022 12:46 PM EST documented in this encounter Progress Notes * Iram Laird MD - 10/07/2022 9:20 AM EDT Division of Gynecologic Oncology [place] [id number] 10/07/22 Follow-up Visit: Patient Active Problem List Diagnosis [...] serous ovarian carcinoma. 07/20/19 TAHBSO/omentectomy/rectosigmoid resection/PPALND. R0. 5/03/10 #1 Taxol/carbo/Avastin - 01/08 #6 CA 125 07/08 350 12/2019 Patient started PARP inhibitors 200 mg bid Tumor Testing: The CancerNext analysis of Ivana's [...] only). 01/25/20: Niraparib maintenance, 200-->100 mg qhs Subjective: Gabi Luna returns to the office today for a cancer surveillance visit. This is her first inperson follow-up visit after many telehealth visits. On 01/29/22, she underwent an aortic valve replacement and spetal myectomy for progressive aortic stensosis . She has recovered from this well and is off of warfarin and back to driving. Patient has congenital bicuspid valve Patient walking a lot ongoing cardiac rehab Bowel movement She is having regular bowel movements and is eating well. Prone constipation uses colace and miralax since chemotherapy Her appetite and energy level is improving since her heart surgery. She denies fevers, chills, dysuria, abdominal/pelvic pain, vaginal bleeding, nausea, vomiting or diarrhea. She has no abdominal or pelvic pain. 4. Sexually active -dryness tried uber She stopped her zejula for a few days around the surgery and has been tolerating it well at 100 mg per day. Health care maintenance Mammogram - [facility] Colonoscopy - 04/2021 DATA - CBC 07/2022 hgb 13 Latest Reference Range & Units 04/08/22 13:17 10/07/22 08:19 CA 125 <=38.1 unit/mL 14.9 10.9 Objective: There were no vitals filed for this visit. There is no height or weight on file to calculate BMI. There is no height or weight on file to calculate BSA. Physical Exam Constitutional: General: She is not [...] no abdominal tenderness. There is no rebound. Musculoskeletal: General: No tenderness. Cervical back: Neck supple. Lymphadenopathy: Cervical: No cervical adenopathy. Upper Body: Right upper body: No supraclavicular adenopathy. Left upper body: No supraclavicular adenopathy. Skin: General: Skin is warm and dry. Coloration: Skin is not pale. Findings: No erythema or rash. Neurological: Mental Status: She is alert. Coordination: Coordination normal. Psychiatric: Behavior: Behavior normal. Assessment and Plan: Gabi Luna is a 62 y.o. 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 She is doing well and has no evidence of recurrent cancer. Signs and symptoms of recurrent disease reviewed. She is currently on maintenance niraparib and is tolerating this very well which is approaching 3 years of treatment. D/w patient and at length rationale for d/c of medication in consideration of side effects and cost and potential impact on future chemotherapy agents. D/w patient plan to d/c niraparib by 12/2022 based upon literature and available data and could d/c anytime as we approach end Mckenna and 34 months of PARP treatment. We discussed monitoring lab with CA 125 every 3 months in future as surveillance as ratioanle for this surveillance plan. Patient and b\very pleased with plan. RTC 3 months. I personally spent a total of 30 minute visit independently reviewing relevant interval data including imaging, lab tests, counseling and coordinating care for Gabi Luna. We discussed the plan and rationale for ongoing surveillance. Iram Laird MD documented in this encounter Plan of Treatment Upcoming Encounters Date Type Department Care Team (Latest Contact Info) Description 12/25/2023 9:[address] [place] [address] Xavier Malhotra MD [facility] [place] [address] 12/29/2023 Hospital Encounter [place] [phone] Xavier Malhotra MD [facility] [place] [address] Paroxysmal atrial fibrillation 12/29/2023 7:30 AM EDT - 12/29/2023 12:00 PM EDT Surgery [place]rophys[place] [phone] Xavier Malhotra MD [facility] [place] [address] ELECTROPHYSIOLOGY PROCEDURE 01/14/2024 10:40 AM EDT Office Visit Cardiology at [address] [phone] Carmen Castaneda PA [facility] [place] [address] Scheduled Procedures Name Priority Associated Diagnoses Date/Ti me TRANSESOPHAGEAL ECHO DURING CATH/EP PROCEDURE Paroxysmal atrial fibrillation 12/29/2023 7:30 AM EDT documented as of this encounter Goals Goal Patient Goal Type Associated Problems Recent Progress Patient-Stated? Author DH Home Medication Compliance and Understanding Patient Facing Action Plan Lani Love, [facility] Note: Maintain control of disease for as long as possible as assessed by tumor marker levels and scans in clinic every 3 to 6 months documented as of this encounter Visit Diagnoses Diagnosis Encounter for chemotherapy management Ovarian cancer, lateral, stage IIIb high-grade serous/endometrioid, 07/20/2019 s/p FREDI/BSO/oment/PPALND/RSReanstomosis BRCA negative Screening for genetic disease carrier status Lichen sclerosus et atrophicus Circumscribed scleroderma Paroxysmal atrial fibrillation Atrial fibrillation Paroxysmal atrial fibrillation Atrial fibrillation documented in this encounter Care Teams Political Anthropologist Relationship Specialty Start Date End Date Evelyne Hunt APRN [address] [place] [address] PCP - General Internal Medicine 09/23/17 documented as of this encounter
--- OUTSIDE RECORDS SUMMARY | 2023-12-01 02:10 | XMS_ITS | Encounter Summary ---
[place] [address] Care Team Providers Care Biazzi Nitrator Operator Name Role Phone Kiki Huntyce Dat STEVEN Primary Care Provider [phone] Reason for Visit * Reason Comments Follow-up Encounter Details Date Type Department Care Team (Late st Contact Info) Description 04/04/2022 9:45 AM EST Office Visit Dermatology at [address] [phone] Haresh Erwin MD [address] [facility] DERMATOLOGY [place], [place] [id number] Vitiligo Social History Tobacco Use Types Packs/Day [...] Progress Notes * Haresh Erwin MD - 04/04/2022 9:45 AM EST Problem: 1. ??Follow-up vitiligo, status post 4 months of narrowband UVB phototherapy 2. History of ovarian cancer Ivana follows up for a 3-month check on her vitiligo being treated with narrowband UVB at [facility]. Physical examination reveals a pleasant 61-year-old woman who has had essentially total resolution of her vitiligo with repigmentation at sites of involvement on dorsal hands on her wrists on her shins and also around her mouth. Assessment plan: Vitiligo with total response narrowband UVB phototherapy 1. Patient stopped phototherapy in mid January at the time of a open heart surgery/valve replacement 2. Her total treatment has been around 40 treatment sessions 3. No further treatment is necessary, patient is very happy with her care at [facility] in response to therapy 4. Return to clinic here as needed 5. In case of recurrence, first initiate her corticosteroid creams at home for a month and a half and if no response then return to clinic for UVB therapy CC: Evelyne Hunt APRN documented in this encounter Plan of Treatment Upcoming Encounters Date Type Department Care Team (Latest Contact Info) Description 12/25/2023 9:[address] [place] [address] Xavier Malhotra MD [facility] [place] [address] 12/29/2023 Hospital Encounter [place] [phone] Xavier Malhotra MD [facility] [place] [address] Paroxysmal atrial fibrillation 12/29/2023 7:30 AM EDT - 12/29/2023 12:00 PM EDT Surgery [place] [address] Xavier Malhotra MD [facility] [place] [address] ELECTROPHYSIOLOGY PROCEDURE 01/14/2024 10:40 AM EDT Office Visit Cardiology at [address] [phone] Carmen Castaneda PA [facility] [place] [address] Scheduled Procedures Name Priority Associated Diagnoses Date/Ti me TRANSESOPHAGEAL ECHO DURING CATH/EP PROCEDURE Paroxysmal atrial fibrillation 12/29/2023 7:30 AM EDT documented as of this encounter Goals Goal Patient Goal Type Associated Problems Recent Progress Patient-Stated? Author DH Home Medication Compliance and Understanding Patient Facing Action Plan No Lani Vargas, [facility] Note: Maintain control of disease for as long as possible as assessed by tumor marker levels and scans in clinic every 3 to 6 months documented as of this encounter Visit Diagnoses Diagnosis Vitiligo Paroxysmal atrial fibrillation Atrial fibrillation Paroxysmal atrial fibrillation Atrial fibrillation documented in this encounter Care Teams Biazzi Nitrator Operator Relationship Specialty Start Date End Date Evelyne Hunt APRN [address] [place] [address] PCP - General Internal Medicine 09/23/17 documented as of this encounter
--- OUTSIDE RECORDS SUMMARY | 2023-12-01 02:10 | XMS_ITS | Encounter Summary ---
Author Organization [facility] [place] [address] Care Team Providers Care Educational Therapist Name Role Phone Kiki Huntyce Dat STEVEN Primary Care Provider [phone] Reason for Visit * Reason Comments Medication Refill Encounter Details Date Type Department Care Team (Late st Contact Info) Description 04/16/2022 Specialty [place] [phone] Lizz Jones [facility] Social History Tobacco Use Types Packs/Day Years [...] Progress Notes * Lizz Jones RPH - 04/16/2022 10:26 AM EST Clinical Management Plan: Refill Specialty Pharmacy Consultation; Lizz Jones [facility] Comprehensive Medication Management (CMM) Gabi Benitoyvonne Ms. [...] complete drug. Medication Reconciliation Discrepancies (compared to [facility] med list) No Specialty Pharmacy Refill Questionnaire Refill Questionnaire 04/16/2022 What is the name of the specialty medication you are refilling? zejula Are you taking any new medications? No Please explain - Any new medical condition? No Please explain - Any new allergies? No Any new side effects that are bothersome? No What date will you need this fill by? 04/26/2022 Adherence: Any missed doses? No Patient understands no changes to current drug regimen were made. Lizz Jones RPH 04/16/22 10:28 AM documented in this encounter Plan of Treatment Upcoming Encounters Date Type Department Care Team (Latest Contact Info) Description 12/25/2023 9:[address] [place] [phone] Xavier Malhotra MD [facility] [place] [address] 12/29/2023 Hospital Encounter [place] [phone] Xavier Malhotra MD [facility] [place] [address] Paroxysmal atrial fibrillation 12/29/2023 7:30 AM EDT - 12/29/2023 12:00 PM EDT Surgery [place] [phone] Xavier Malhotra MD [facility] [place] [address] ELECTROPHYSIOLOGY PROCEDURE 01/14/2024 10:40 AM EDT Office Visit Cardiology at [address] [phone] Carmen Castaneda PA [facility] [place] [address] Scheduled Procedures Name Priority Associated Diagnoses Date/Ti me TRANSESOPHAGEAL ECHO DURING CATH/EP PROCEDURE Paroxysmal atrial fibrillation 12/29/2023 7:30 AM EDT documented as of this encounter Goals Goal Patient Goal Type Associated Problems Recent Progress Patient-Stated? Author DH Home Medication Compliance and Understanding Patient Facing Action Plan Lani Love, [facility] Note: Maintain control of disease for as long as possible as assessed by tumor marker levels and scans in clinic every 3 to 6 months documented as of this encounter Visit Diagnoses Not on filedocumented in this encounter Care Teams Educational Therapist Relationship Specialty Start Date End Date Evelyne Hunt APRN [address] [place] [address] PCP - General Internal Medicine 09/23/17 documented as of this encounter
--- OUTSIDE RECORDS SUMMARY | 2023-12-01 02:10 | XMS_ITS | Encounter Summary ---
Author Organization [facility] Address [facility] [place] [address] Care Team Providers Care Hairspring Studder Name Role Phone Evelyne Hunt APRN Primary Care Provider [phone] Reason for Referral * Diagnostic Test (Routine) - Closed Specialty Diagnoses / Procedures Referred By Contac t Referred To Contact Cardiology Diagnoses PAF (paroxysmal atrial fibrillation) Procedures Ziopatch 48 Hrs-15 Days Mandeep Franco MD [facility] [place] [address] [facility] [place] [address] Referral ID Status Reason Start Date Expiration Date V isits Requested Visits Authorized [id number] Closed Specialty Service Requested 03/04/2022 03/04/2023 1 1 Encounter Details Date Type Department Care Team (Late st Contact Info) Description 03/04/2022 1:20 PM EST Office Visit Cardiology at [address] [phone] Mandeep Franco MD [facility] [place] [address] PAF (paroxysmal atrial fibrillation); Generalized weakness; Bicuspid aortic valve Social History Tobacco Use Types Packs/Day Years [...] Sign Reading Time Taken Comments Blood Pressure 137/87 03/04/2022 1:12 PM EST Pulse 73 03/04/2022 1:12 PM EST Temperature - - Respiratory Rate - - Oxygen Saturation 100% 03/04/2022 1:12 PM EST Inhaled Oxygen Concentration - - Weight 59.3 kg (130 lb 11.2 oz) 03/04/2022 1:12 PM EST Height 166.4 cm (5' 5.5) 03/04/2022 1:12 PM EST Body Mass Index 21.42 03/04/2022 1:12 PM EST documented in this encounter Progress Notes * Mandeep Franco MD - 03/04/2022 1:20 PM EST Images from the original note were not included. Formerly [facility] [place] [phone] Cardiology Clinic Note CC: Aortic valve disease Patient Name: Gabi Luna HPI: Gabi Luna is a 61 y.o. year old female with a PMH of ovarian cancer, severe , moderate AI s/p bp AVR (01/2022) as well as SVT status post unsuccessful ablation previously followed by Dr. Subramanian. Here today for follow up after cardiac surgery. Has been home for ~ 4 weeks. States that she is getting stronger every day. Notices that her leftchest is numb. Complains of generalized fatigue and static in her right ear. Seen by ENT for the latter issue, which was attributed to tinnitus. Had AF briefly post-operatively. Notices occasional palpitations particularly when she is laying inbed. Was discharged on amiodarone and warfarin; just about out of both medications. Due to start cardiac rehab next week at [facility]. States that she is walking all of the time. Goes out for a 30 min walk essentially everyday. States that she feels fine with this level of activity. Feels better when she is active than when she isn't. Has a TTE and f/u with Dr. Felder this Friday. FROM D/C SUMMARY (01/2022)-- Major Procedures/Operations: 01/29/22 AVR (23 INSPIRIS), LV MYECTOMY, TON ?? Hospital Course: s/p AVR and Septal Myectomy Gabi Luna was admitted to [facility] on 01/29/2022 via the Same DayProgram. She was brought to the operating room where Dr. Efrain Felder performed a tissue aortic valve replacement with septal myectomy. She tolerated the procedure and was brought to the Cardiovascular Intensive Care Unit for recovery. She initially required the pharmacologic support of intravenous vasopressin and levophed. She was extubated from the ventilator on the day of surgery. ?? All drips were weaned to off. Routine postoperative and home medications were started. Aspirin 81mgdaily was started. Statin therapy was continued. She was continued on beta blockade and this was optimized. Diuretics were started and she responded appropriately. She was near euvolemic by discharge. Coumadin was started for postop pAF (see below). ?? She was transferred to the Intermediate Cardiac Care Unit for continued rehabilitation. All tubes, lines, and epicardial pacing wires were removed without incident. She voided normally after her [place] was removed. She was seen by Physical Therapy and Cardiac Rehabilitation. Sternal precaution education was provided. She had walked 5 minutes and gone up and down stairs. She was tolerating a regular diet and had a bowel movement. Pain was controlled on oral medications. ?? Postoperative course was complicated by the following: Postoperative atrial fibrillation secondary to cardiac surgery Patient developed several episodes of atrial fibrillation postop. She initially was symptomatic with mild hypotension requiring IVF and subjective symptoms. She received several boluses of IV amio/amio infusion. Her rhythm settled down over days. She was transitioned to PO amio x 30 days and metoprolol was titrated. Coumadin was added for AC therapy. She maintained NSR for >48hrs prior to disch arge. 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 Felder - Brothers with BAV as well Patient Active Problem List Diagnosis Code ??? Hypothyroidism E03.9 ??? SVT (supraventricular tachycardia) I47.1 ??? Bicuspid aortic valve Q23.1 ??? Chest pain R07.9 ??? Aortic valve stenosis I35.0 ??? HTN (hypertension) I10 ??? 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 BRCA negative Z13.71 ??? (aortic stenosis) I35.0 Past Surgical History: Procedure Laterality Date ??? APPENDECTOMY 08/26/2013 ??? SECTION ??? IR MEDIPORT PLACEMENT 08/20/2019 IR Mediport Placement 08/20/2019 Jourdan Lopez PA [facility] INTERVENTIONL RAD ??? IR MEDIPORT REMOVAL 10/04/2020 IR Mediport Removal 10/04/2020 Mahesh Wick MD [facility] INTERVENTIONL RAD ? ? PRG CATH [facility] CORONARY ART W/INJ FOR ANGIO W/R HEART CATH IMG S&I N/A 12/17/2021 CORONARY ANGIOGRAPHY; W RHC performed by Cristóbal Cuevas MD at [facility] CATH LABS ??? PRO GINA SALP-OOPH W/OMENTECT, FREDI, RAD DISSECT N/A 07/20/2019 @HYSTERECTOMY, FREDI, BSO, DEBULKING (WRVU 34.13) performed by Natalie Vallejo MD at [facility] MAIN OR ??? PRO COLONOSCOPY, REMV LESN, SNARE N/A 05/01/2021 COLONOSCOPY, POLYPECTOMY, REMOVAL LESION BY SNARE (WRVU 4.67) performed by Arlin Agudelo MDat [facility] ENDOSCOPY ??? PRO REPLACEMENT PROSTHETIC AORTIC VALVE OPEN W CARDIOPULMONARY BYPASS HOMOGRF/STENT N/A 01/29/2022 @REPLACE AORTIC VALVE, OPEN, W\CPB, W\PROSTHETIC VALVE (WRVU 41.32) performed by Efrain Felder MD at [facility] MAIN OR ??? PRO FABRIZIO VENT MUSC FOR IHSS N/A 01/29/2022 @VENTRICULOMYOTOMY (-MYECTOMY) FOR IDIOPATHIC HYPERTROPHIC SUBAORTIC STENOSIS (WRVU 36.56) performed by Efrain Felder MD at [facility] MAIN OR Current Outpatient Medications Medication Instructions ??? acetaminophen (TYLENOL) 1,000 mg, Oral, EVERY 6 HOURS PRN ??? AMIOdarone (PACERONE) 400 mg, Oral, DAILY ??? aspirin 81 mg, Oral, DAILY ??? atorvastatin (LIPITOR) 10 mg, Oral, DAILY ??? buPROPion XL (Wellbutrin XL) 300 mg Tablet Extended Release 24 hr TK 1 T PO QAM ??? clindamycin (CLEOCIN) 600 mg, Oral, PRN, Take 1 hour prior to dental procedures ??? LORazepam (ATIVAN) 0.5 mg, Oral, 2 TIMES DAILY PRN ??? metoproloL tartrate (LOPRESSOR) 25 mg, Oral, 2 TIMES DAILY ??? niraparib (ZEJULA) 100 mg, Oral, DAILY ??? traZODone (Desyrel) 50 mg Tablet TAKE ONE TO TWO TABLETS BY MOUTH AT BEDTIME NEEDED ??? warfarin (Coumadin) 2.5 mg Tablet Take as instructed by your PCP Social History Socioeconomic History ??? Marital status: Spouse name: Not on file ??? Number of children: Not on file ??? Years of education: Not on file ??? Highest education level: Not on file Occupational History ??? Not on file Tobacco Use ??? Smoking status: Former Types: Cigarettes Quit date: 07/12/1977 Years since quittin.6 ??? Smokeless tobacco: Never Vaping Use ??? Vaping Use: Never used Substance and Sexual Activity ??? Alcohol use: Not Currently ??? Drug use: Never ??? Sexual activity: Not on file Other Topics Concern ??? Not on file Social History Narrative ??? Not on file Social Determinants of Health Financial Resource Strain: Not on file Food Insecurity: Not on file Transportation Needs: Not on file Physical Activity: Not on file Housing Stability: Not on file 24 HR Review of Systems: Constitutional: No fevers; chills or malaise Eyes: No visual disturbances ENT: No jaw pain; no difficulty swallowing or chewing, no mouth sores/mucositis Neck: No neck pain Cardiovascular: No Chest Pain; No palpitations Respiratory: No SOB; No MIRANDA; No cough GI/Abdomen: No Diarrhea; No Constipation; No Nausea/Vomiting : No dysuria; no hematuria Extremities: No swelling; No calf tenderness; no bleeding Neuro: No headaches; No sensory deficits Vitals: Last value Range last 24 hrs Temperature Temp: -- Heart Rate Heart Rate: 73 Heart Rate: [73] Blood Pressure BP: 137/87 BP: (137)/(87) Respiratory Rate Resp: -- SpO2 SpO2: 100 % SpO2: [100 %] Examination: CONST: Pleasant, Well-appearing NEURO: Oriented x3; no obvious deficits PSYCH: NAD, Normal mood HEENT: Non-icteric sclera MSK: Ambulates w/o difficulty CV: JVP not elevated; RRR, well healed sternotomy, soft, 1/6 KANDY at LUSB PULM: CTAB GI: Soft, non-tender, non-distended, +BS EXTREMITIES: No lower extremity edema; 2+ Radial pulses bilaterally SKIN: No rashes Laboratory: No results for input(s): WBC, HGB, HCT, PLATELET in the last 168 hours. No results for input(s): NA, K, CL, CO2, BUN, CREATININE in the last 168 hours. No results for input(s): AST, ALT, ALKPHOS, BILITOT, BILIDIR in the last 168 hours. No results for input(s): CALCIUM, PHOS in the last 168 hours. Diagnostic Studies: TON (01/2022) Post Procedure Findings: Patient is s/p bioprosthetic aortic valve replacement. Myectomy. Left ventricular ejection fraction is estimated visually at 75 %. No changes from pre-bypass exam. There are no segmental wall motion abnormalities,. No changes from pre-bypass exam. Right ventricular systolic function is normal. No changes from pre-bypass exam. The date of insertion is 01/29/2022. 23mm Inspiris valve placed in the aortic position. There is no evidence of addie-valvular leak. Gradient through the LVOT was 7mmHG at 70bpm though this might be an overestimate due to ongoing volume resuscitation and relative LV underfilling. Cardiac Cath (11/2021) Conclusions: * Nonobstructive coronary artery disease TTE (11/2021) Interpretation Summary 1. The left ventricle is normal in chamber size with moderate basal septal hypertrophy and mitral JERRY with evidence of flow acceleration and a mild inducible gradient (5mmHg at rest, 34mmHg with Valsalva). Global and segmental LV systolic function is normalwith LVEF of 74% by Arndt's biplane. 2. The right ventricle is normal in size and global systolic function. Estimated PASP is 25mmHg. 3. The aortic valve appears bicommissural with possible fusion of the non- coronary and left coronary cusps. It is very thickened and calcified. There is evidence for severe aortic stenosis (SUDHAKAR 0.74cm2 by VTI continuity, gradients 83/49mmHg, DOI 0.28). There is probably also moderate eccentric regurgitation. 4. See remainder of report for additional findings. When compared to the prior study dated 02/01/2020, LVOT gradients appear decreased but the aortic valve disease has progressed to severe. TTE (01/2020) 1. Technically limited imaging. 2. The left ventricular chamber size is normal. Basal septal hypertrophy is observed (1.7 cm). Global left ventricular systolic function appears hyperdynamic. The quantitative left ventricular ejection fraction by biplane Arndt's method is 75%. 3. There is LV mid-cavitary flow acceleration (obstruction). There is also systolic anterior motion of the mitral valve is present with what appears to be mild left ventricular outflow tract obstruction (peak resting LVOT gradient of approximately 14 mmHg). 4. The right ventricle is normal in size. Right ventricular global systolic function is normal. Theestimated pulmonary artery systolic pressure is 27 mmHg. 5. The aortic valve is not well visualized but appears bicommissural and heavily calcified. There appears to be moderate aortic valve stenosis. Doppler assessment is made less accurate by LV obstructive physiology. The calculated aortic valve area is 1.34 cm2. The mean trans-valvular gradient across the aortic valve is 33 mmHg. Moderate (2+/4+) aortic valve regurgitation is present. 6. There is mild dilatation of the aortic root (4 cm). 7. See remainder of report for additional findings. Compared to the outside TTE dated 1/15/20, findings appear qualitatively similar. I have personally reviewed the above ECG & imaging studies ASSESSMENT: This is an extraordinarily pleasant 61-year-old woman with a history of a bicuspid aortic valve andSVT who was previously followed by Dr. Subramanian. I met her once previously in November 2021. Her echo performed at that visit demonstrated a bicuspid valve now with severe stenosis and moderate regurgitation. The valve appears calcified with impaired systolic motion of the leaflets. The meangradient across her valve increased from 33 mmHg on her last study (01/2020) to 49 mmHg. CalculatedAVA is 0.7 cm?? with a max velocity across the aortic valve of 4.6 m/s. There is moderate basal septal hypertrophy with JERRY and an LVOT gradient of 5 mmHg at rest (34 mmHg with Valsalva). Given that she had symptoms (MIRANDA, lightheadedness) in the setting of severe , I referred her for a surgical valve replacement. She has been home for ~ 4 weeks and is getting stronger every day. Still notices fatigue as well as some tinnitus and lip numbness which she finds bothersome. From a cardiovascular perspective, she appears to be progressing nicely. She has been walking on a daily basis and notices that she feels better when she is active. Her sternotomy has healed well and there is no detectable, pathologicmurmur notable on her exam. She has an echocardiogram coming up later this week to evaluate both valve function and LVOT gradient (was 7 mmHg on TON during her surgery). Regarding her palpitations, Iplan to get a Zio today to further evaluate. This could be SVT, PACs/PVCs or paroxysms of atrial fibrillation which were noted during her hospitalization. She finishes her amiodarone and Coumadin in a few days, however, I plan to extend her Coumadin until we have the results of her Zio. We discussed this today. She is due to start cardiac rehab next week and has a follow-up with Dr. Felder on Friday. PLAN: # Severe s/p bp AVR (23 mm Inspiris) # Hx of bicuspid aortic valve - Prior to surgery-- SUDHAKAR: 0.7 cm2, M mmHg, Vmax: 4.6 m/sec - due for repeat TTE later this week - continue ASA # Septal thickening w/ JERRY s/p myectomy - prior to surgery-- MG at rest: 5 mmHg; MG with Valsalva: 34 mmHg - MG during surgery was 7 mmHg - will reassess with TTE later this week - continue metoprolol # Atrial fibrillation, paroxysmal, post operative - discharged with 30 days of amiodarone and warfarin - experiencing palpitations in the evening - will check a Zio to evaluate for AF - continue coumadin for now # ASCVD, non-obstructive - continue ASA, statin, BB # SVT - No SVT during EPS Mandeep Franco MD, FACP, FACC Section of Cardiovascular Medicine [facility] [employer] Feederdecker operator [facility] [employer] [facility] documented in this encounter Plan of Treatment Upcoming Encounters Date Type Department Care Team (Latest Contact Info) Description 12/25/2023 9:[address] [place] [phone] Xavier Malhotra MD [facility] [place] [address] 12/29/2023 Hospital Encounter Electrophysiology Lab at [place] [phone] Xavier Malhotra MD [facility] [place] [address] Paroxysmal atrial fibrillation 12/29/2023 7:30 AM EDT - 12/29/2023 12:00 PM EDT Surgery [place] [phone] Xavier Malhotra MD [facility] [place] [address] ELECTROPHYSIOLOGY PROCEDURE 01/14/2024 10:40 AM EDT Office Visit Cardiology at [place] [phone] Carmen Castaneda PA [facility] [place] [address] Scheduled Procedures Name Priority Associated Diagnoses Date/Ti me TRANSESOPHAGEAL ECHO DURING CATH/EP PROCEDURE Paroxysmal atrial fibrillation 12/29/2023 7:30 AM EDT documented as of this encounter Goals Goal Patient Goal Type Associated Problems Recent Progress Patient-Stated? Author DH Home Medication Compliance and Understanding Patient Facing Action Plan Lani Love, [facility] Note: Maintain control of disease for as long as possible as assessed by tumor marker levels and scans in clinic every 3 to 6 months documented as of this encounter Results * Ziopatch 48 Hrs-15 Days (03/04/2022 2:07 PM EST) Anatomical Region Laterality Modality Other Narrative 03/27/2022 6:46 PM EST [facility] ? Zio Patch? Ambulatory Cardiac Event Monitor Report Duration of recording : 6 days and 16 hours Indication: Paroxysmal atrial fibrillation Summary Data Predominant rhythm: Sinus rhythm Minimum sinus rate 53. Maximum sinus rate 87. Average heart rate 64 bpm Sinus rates >100bpm occurred 0% of the time. Sinus rates <50bpm occurred 0% of the time. Atrial fibrillation: Was not detected Pauses: Were not detected Atrial ectopic beats: Rare atrial premature beats (APC? s) Ventricular ectopic beats: Rare ventricular premature beats (VPC's) (less than 1%) No high grade ectopy Abnormal tachycardia: There were 2 episodes of supraventricular tachycardia with an average rate of 113 bpm. ??Longest lasted 8 beats with an average rate of 103 bpm. Triggered and Patient Diary Events There were 10 triggered and 4 patient diary events: The 14 triggered or diary events corresponded to normal sinus rhythm with rates between 58 and 67 bpm without ectopy. Conclusion(s): ?? This monitor is notable for normal sinus rhythm with a relatively constricted rate histogram between 53 and 87 bpm. ??This could correspond to pharmacotherapy or patient inactivity. There is no atrial fibrillation detected. The 14 triggered or diary events correspond to normal sinus rhythm with normal rates. Mandeep Franco MD [facility] documented in this encounter Visit Diagnoses Diagnosis PAF (paroxysmal atrial fibrillation) Atrial fibrillation Generalized weakness Other malaise and fatigue Bicuspid aortic valve Congenital insufficiency of aortic valve PAF (paroxysmal atrial fibrillation) Atrial fibrillation Paroxysmal atrial fibrillation Atrial fibrillation Paroxysmal atrial fibrillation Atrial fibrillation documented in this encounter Care Teams Hairspring Studder Relationship Specialty Start Date End Date Evelyne Hunt APRN [address] [place] [address] PCP - General Internal Medicine 09/23/17 documented as of this encounter
--- OUTSIDE RECORDS SUMMARY | 2023-12-01 02:10 | XMS_ITS | Encounter Summary ---
[place] [address] Care Team Providers Care Muffle Worker Name Role Phone Evelyne Hunt APRN Primary Care Provider [phone] Reason for Visit * Reason Comments Patient Education Encounter Details Date Type Department Care Team (Late st Contact Info) Description 08/15/2022 Specialty [place] [phone] Lani Vargas Red Social History Tobacco Use Types Packs/Day Years [...] Progress Notes * Lani Vargas RPH - 08/15/2022 10:18 AM EDT Specialty Pharmacy Consultation; Lani Vargas RPH Comprehensive Medication Management (CMM): Specialty Consult, Opt Out Gabi Benitoyvonne Diagnosis: 1. Ovarian cancer, lateral, stage IIIb high-grade serous/endometrioid, 07/20/2019 s/p FREDI/BSO/oment/PPALND/RSReanstomosis Therapy Start Date: 01/06/2020 Contact in person or via telephone: phone Ms. Gabi Luna is a 61 y.o. (1960) female who was contacted in regard to specialty medication. Spoke with patient regarding Zejula. A review of the medication therapy was performed. The medication was refilled as scheduled, and all medication related questions and concerns were addressed. The specialty pharmacy staff will follow up with the patient 7 days prior to next refill. Is the patient willing to proceed with the Clinical Assessment? No Summary and Recommendations: The patient was feeling well today and not experiencing any side effects such as nausea, rash, or edema. Med list reviewed with no major interactions identified. The patient is aware of the importance of lab follow up and infection prevention precautions as well as adherence to treatment. The patient was instructed to notify the clinic of any upcoming procedures or new medications and OTC products . Resources are available to the patient from the cancer center such as gas refrigerator servicer consultation or social scientist. Administration, allergies, dosage, safe storage reviewed. The pharmacy's contact information and operating hours with on-call services were given to the patient both verbally and in writing. Economic Assessment: Patient is agreeable to medication copay: Yes Copay Amount: $0 Day Supply: 30 Date Needed: 08/23/22 Therapy Assessment: Appropriate Therapy: Yes Current Medication Dosing/Route/Frequency: Zejula 100mg PO QD Additional equipment/supplies required: No Care Plan Reviewed and Approved by Pharmacist : Yes Problem List: Patient Active Problem List Diagnosis Code ??? Hypothyroidism E03.9 ??? SVT (supraventricular tachycardia) I47.1 ??? Bicuspid aortic valve Q23.1 ??? Chest pain R07.9 ??? Aortic valve stenosis I35.0 ??? HTN (hypertension) I10 ??? 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 BRCA negative Z13.71 ??? (aortic stenosis) I35.0 Medications Reviewed: Yes Medications reconciled: No Allergies Reviewed: Yes Allergies reconciled: No Pharmacist follow-up needed: No Informed patient of specialty pharmacy services: Yes (Optional) Patient unenrolls from routine specialty pharmacy services (Y/N): Yes. If yes, services unenrolled from: Consults Welcome Packet and Rights and Responsibilities: Patient provided welcome packet/rights and responsibilities: Yes Date Confirmed: 08/22/20 Confirmation: Verbal -Patient is aware a licensed pharmacist is available 24 hours a day, 7 days a week to discuss medication-related questions or concerns: Yes -Patient verbalizes understanding of the common side effect profile of their medication. The patient is able to call 911 or seek urgent care if signs/symptoms of allergy or harmful adverse reactions occur: Yes Patient understands no changes to current drug regimen were made at the appointment and that the pharmacist is providing recommendations (summary located at top of note) for provider review and follow up. Lani Vargas RPH 08/15/22 10:21 AM documented in this encounter Plan of Treatment Upcoming Encounters Date Type Department Care Team (Latest Contact Info) Description 12/25/2023 9:[address] [place] [address] Xavier Malhotra MD [facility] [place] [address] 12/29/2023 Hospital Encounter [place] [address] Xavier Malhotra MD [facility] [place] [address] Paroxysmal atrial fibrillation 12/29/2023 7:30 AM EDT - 12/29/2023 12:00 PM EDT Surgery [place] [address] Xavier Malhotra MD [facility] [place] [address] ELECTROPHYSIOLOGY PROCEDURE 01/14/2024 10:40 AM EDT Office Visit Cardiology at [address] [address] Carmen Castaneda PA [facility] [place] [address] Scheduled Procedures Name Priority Associated Diagnoses Date/Ti me TRANSESOPHAGEAL ECHO DURING CATH/EP PROCEDURE Paroxysmal atrial fibrillation 12/29/2023 7:30 AM EDT documented as of this encounter Goals Goal Patient Goal Type Associated Problems Recent Progress Patient-Stated? Author DH Home Medication Compliance and Understanding Patient Facing Action Plan No Lani Vargas, [facility] Note: Maintain control of disease for as long as possible as assessed by tumor marker levels and scans in clinic every 3 to 6 months documented as of this encounter Visit Diagnoses Diagnosis Ovarian cancer, lateral, stage IIIb high-grade serous/endometrioid, 07/20/2019 s/p FREDI/BSO/oment/PPALND/RSReanstomosis Paroxysmal atrial fibrillation Atrial fibrillation Paroxysmal atrial fibrillation Atrial fibrillation documented in this encounter Care Teams Muffle Worker Relationship Specialty Start Date End Date Evelyne Hunt APRN [address] [place] [address] PCP - General Internal Medicine 09/23/17 documented as of this encounter
--- OUTSIDE RECORDS SUMMARY | 2023-12-01 02:10 | XMS_ITS | Encounter Summary ---
Author Organization [facility] [place] [address] Care Team Providers Care Rn Neurology Name Role Phone Kiki Huntyce Dat STEVEN Primary Care Provider [phone] Reason for Visit * Reason Comments Medication Refill Encounter Details Date Type Department Care Team (Late st Contact Info) Description 03/20/2022 Specialty [place] [phone] Lani Vargas [facility] Social History Tobacco Use Types Packs/Day [...] Progress Notes * Lani Vargas RPH - 03/20/2022 4:10 PM EST Clinical Management Plan: Refill Specialty Pharmacy Consultation; Lani Vargas Red Comprehensive Medication Management (CMM) Gabi Smithrhonda Ms. Gabi Luna is a 61 y.o. [...] complete drug. Medication Reconciliation Discrepancies (compared to [facility] med list) No Specialty Pharmacy Refill Questionnaire Refill Questionnaire 03/20/2022 What is the name of the specialty medication you are refilling? Zejula Are you taking any new medications? No Please explain - Any new medical condition? No Please explain - Any new allergies? No Any new side effects that are bothersome? No What date will you need this fill by? 03/27/2022 Adherence: Any missed doses? No Patient understands no changes to current drug regimen were made. Lani Vargas RPH 03/20/22 4:12 PM documented in this encounter Plan of Treatment Upcoming Encounters Date Type Department Care Team (Latest Contact Info) Description 12/25/2023 9:[address] [place] [phone] Xavier Malhotra MD [facility] [place] [address] 12/29/2023 Hospital Encounter Elect[place] [phone] Xavier Malhotra MD [facility] [place] [address] Paroxysmal atrial fibrillation 12/29/2023 7:30 AM EDT - 12/29/2023 12:00 PM EDT Surgery [place] [phone] Xavier Malhotra MD [facility] [place] [address] ELECTROPHYSIOLOGY PROCEDURE 01/14/2024 10:40 AM EDT Office Visit Cardiology at [address] [phone] Carmen Castaneda PA [facility] [place] [address] Scheduled Procedures Name Priority Associated Diagnoses Date/Ti me TRANSESOPHAGEAL ECHO DURING CATH/EP PROCEDURE Paroxysmal atrial fibrillation 12/29/2023 7:30 AM EDT documented as of this encounter Goals Goal Patient Goal Type Associated Problems Recent Progress Patient-Stated? Author DH Home Medication Compliance and Understanding Patient Facing Action Plan No Lani Vargas, [facility] Note: Maintain control of disease for as long as possible as assessed by tumor marker levels and scans in clinic every 3 to 6 months documented as of this encounter Visit Diagnoses Not on filedocumented in this encounter Care Teams Rn Neurology Relationship Specialty Start Date End Date Evelyne Hunt APRN [address] [place] [address] PCP - General Internal Medicine 09/23/17 documented as of this encounter
--- OUTSIDE RECORDS SUMMARY | 2023-12-01 02:10 | XMS_ITS | Encounter Summary ---
Author Organization [facility] [place] [address] Care Team Providers Care Reliability Technologist Name Role Phone Evelyne Hunt APRN Primary Care Provider [phone] Reason for Referral * Diagnostic Test (Routine) - Closed Specialty Diagnoses / Procedures Referred By Contac t Referred To Contact Cardiology Diagnoses PAF (paroxysmal atrial fibrillation) Procedures Ziopatch 48 Hrs-15 Days Mandeep Franco MD [facility] [place] [address] [facility] [place] [address] Referral ID Status Reason Start Date Expiration Date V isits Requested Visits Authorized [id number] Closed Specialty Service Requested 03/04/2022 03/04/2023 1 1 Reason for Visit * Diagnostic Test (Routine) - Closed Specialty Diagnoses / Procedures Referred By Contac t Referred To Contact Cardiology Diagnoses PAF (paroxysmal atrial fibrillation) Procedures Ziopatch 48 Hrs-15 Days Mandeep Franco MD [facility] [place] [address] [facility] [place] [address] Referral ID Status Reason Start Date Expiration Date V isits Requested Visits Authorized [id number] Closed Specialty Service Requested 03/04/2022 03/04/2023 1 1 Encounter Details Date Type Department Care Team (Latest Contact Info) Description 03/04/2022 2:00 PM EST - 03/04/2022 11:59 PM EST Hospital Encounter Non-Invasive Cardiology Lab [facility] [place] [address] Mandeep Franco MD [facility] [place] [address] PAF (paroxysmal atrial fibrillation) Discharge Disposition: Home Social History Tobacco Use [...] 9:[address] [place] [address] Xavier Malhotra MD [facility] [place] [address] 12/29/2023 Hospital Encounter Electrophys[place] [phone] Xavier Malhotra MD [facility] [place] [address] Paroxysmal atrial fibrillation 12/29/2023 7:30 AM EDT - 12/29/2023 12:00 PM EDT Surgery [place]rophys[place] [address] Xavier Malhotra MD [facility] [place] [address] ELECTROPHYSIOLOGY PROCEDURE 01/14/2024 10:40 AM EDT Office Visit Cardiology at [address] [address] Carmen Castaneda PA [facility] [place] [address] Scheduled Procedures Name Priority Associated Diagnoses Date/Ti me TRANSESOPHAGEAL ECHO DURING CATH/EP PROCEDURE Paroxysmal atrial fibrillation 12/29/2023 7:30 AM EDT documented as of this encounter Goals Goal Patient Goal Type Associated Problems Recent Progress Patient-Stated? Author Home Medication Compliance and Understanding Patient Facing Action Plan Lani Love, [facility] Note: Maintain control of disease for as long as possible as assessed by tumor marker levels and scans in clinic every 3 to 6 months documented as of this encounter Procedures Procedure Name Priority Date/Time Associated Diagnosis Comments ZIOPATCH 48 HRS-15 DAYS Routine 03/04/2022 2:07 PM EST PAF (paroxysmal atrial fibrillation) documented in this encounter Results * Ziopatch 48 Hrs-15 Days (03/04/2022 2:07 PM EST) Anatomical Region Laterality Modality Other Narrative 03/27/2022 6:[address] [facility] ? Zio Patch? Ambulatory Cardiac Event [...] Diagnosis PAF (paroxysmal atrial fibrillation) Atrial fibrillation Paroxysmal atrial fibrillation Atrial fibrillation Paroxysmal atrial fibrillation Atrial fibrillation documented in this encounter Care Teams Reliability Technologist Relationship Specialty Start Date End Date Evelyne Hunt APRN [address] [place] [address] PCP - General Internal Medicine 09/23/17 documented as of this encounter
--- OUTSIDE RECORDS SUMMARY | 2023-12-01 02:10 | XMS_ITS | Encounter Summary ---
Author Organization [facility] [place] [address] Care Team Providers Care Prepared Foods Associate Name Role Phone Kiki Huntyce Dat STEVEN Primary Care Provider [phone] Reason for Visit * Reason Comments Medication Refill Encounter Details Date Type Department Care Team (Late st Contact Info) Description 05/16/2022 Specialty [place] [phone] Lizz Jones [facility] Social History Tobacco Use Types Packs/Day [...] Progress Notes * Lizz Jones RPH - 05/16/2022 10:34 AM EST Clinical Management Plan: Refill Specialty Pharmacy Consultation; Lizz Jones [facility] Comprehensive Medication Management (CMM) Gabi Benitoyvonne Ms. [...] complete drug. Medication Reconciliation Discrepancies (compared to [facility] med list) No Specialty Pharmacy Refill Questionnaire Refill Questionnaire 05/16/2022 What is the name of the specialty medication you are refilling? Zejula Are you taking any new medications? No Please explain - Any new medical condition? No Please explain - Any new allergies? No Any new side effects that are bothersome? No What date will you need this fill by? 05/26/2022 Adherence: Any missed doses? No Patient understands no changes to current drug regimen were made. Lizz Jones RPH 05/16/22 10:35 AM documented in this encounter Plan of Treatment Upcoming Encounters Date Type Department Care Team (Latest Contact Info) Description 12/25/2023 9:[address] [place] [phone] Xavier Malhotra MD [facility] [place] [address] 12/29/2023 Hospital Encounter [place] [phone] Xavier Malhotra MD [facility] [place] [address] Paroxysmal atrial fibrillation 12/29/2023 7:30 AM EDT - 12/29/2023 12:00 PM EDT Surgery [place] [address] Xavier Malhotra MD [facility] [place] [address] ELECTROPHYSIOLOGY PROCEDURE 01/14/2024 10:40 AM EDT Office Visit Cardiology at [address] [phone] Carmen Castaneda PA [facility] [place] [address] Scheduled Procedures Name Priority Associated Diagnoses Date/Ti me TRANSESOPHAGEAL ECHO DURING CATH/EP PROCEDURE Paroxysmal atrial fibrillation 12/29/2023 7:30 AM EDT documented as of this encounter Goals Goal Patient Goal Type Associated Problems Recent Progress Patient-Stated? Author DH Home Medication Compliance and Understanding Patient Facing Action Plan Lani Love, [facility] Note: Maintain control of disease for as long as possible as assessed by tumor marker levels and scans in clinic every 3 to 6 months documented as of this encounter Visit Diagnoses Not on filedocumented in this encounter Care Teams Prepared Foods Associate Relationship Specialty Start Date End Date Evelyne Hunt APRN [address] [place] [address] PCP - General Internal Medicine 09/23/17 documented as of this encounter
--- OUTSIDE RECORDS SUMMARY | 2023-12-01 02:10 | XMS_ITS | Encounter Summary ---
[place] [address] Care Team Providers Care Vegetable Thinner Name Role Phone Kiki Huntyce Dat STEVEN Primary Care Provider [phone] Reason for Visit * Reason Comments Follow-up Encounter Details Date Type Department Care Team (Late st Contact Info) Description 07/29/2022 8:00 AM EDT Office Visit Dermatology at [address] [phone] Haresh Erwin MD [address] [facility] [place] [address] Vitiligo; SK (seborrheic keratosis); Notalgia paresthetica Social History Tobacco Use Types Packs/Day Years [...] Progress Notes * Haresh Erwin MD - 07/29/2022 8:00 AM EDT Problem: 1.?Follow-up vitiligo 2. Patient vitiligo, successfully treated with 4 months of narrowband UVB phototherapy through January 2022 3. ??History of ovarian cancer 4. Status post aortic valve replacement Ivana follows up for a repeat check. She has noticed a spot on her back. It has been quite itchy butnow seems better the last couple of days. I last saw her in January 2022. She has been doing well. Her vitiligo is not recurrent. After her heart surgery she had A-fib for a time but that is spontaneously resolved and she is pleased how well she is doing now with her bovine valve placement. Physical examination reveals a pleasant 61-year-old who has a 3 cm patch of hyperpigmentation on her lower back just right of midline consistent with notalgia paresthetica. Otherwise examination of the face the chest the back the hands arms and forearms is benign. Patient without any evidence of recurrent vitiligo today. Assessment and plan: Notalgia paresthetica, low back just right of midline 1. Patient reassured about benign nature of this nitrogen treatment today 2. Discussed use of Sarna lotion or similar emollient for symptomatic relief of itching. History of vitiligo 1. No evidence of recurrent vitiligo today 2. Patient congratulated CC: Evelyne Hunt APRN ?? documented in this encounter Plan of Treatment Upcoming Encounters Date Type Department Care Team (Latest Contact Info) Description 12/25/2023 9:[address] [place] [phone] Xavier Malhotra MD [facility] [place] [place] [address] 12/29/2023 Hospital Encounter [place] [phone] Xavier Malhotra MD [facility] [place] [address] Paroxysmal atrial fibrillation 12/29/2023 7:30 AM EDT - 12/29/2023 12:00 PM EDT Surgery [place] [phone] Xavier Malhotra MD [facility] [place] [address] ELECTROPHYSIOLOGY PROCEDURE 01/14/2024 10:40 AM EDT Office Visit Cardiology at [address] [address] Carmen Castaneda PA [facility] [place] [address] Scheduled Procedures Name Priority Associated Diagnoses Date/Ti [...] of this encounter Visit Diagnoses Diagnosis Vitiligo SK (seborrheic keratosis) Other seborrheic keratosis Notalgia paresthetica Disturbance of skin sensation Paroxysmal atrial fibrillation Atrial fibrillation Paroxysmal atrial fibrillation Atrial fibrillation documented in this encounter Care Teams Vegetable Thinner Relationship Specialty Start Date End Date Evelyne Hunt APRN [address] [place] [address] PCP - General Internal Medicine 09/23/17 documented as of this encounter
--- OUTSIDE RECORDS SUMMARY | 2023-12-01 02:10 | XMS_ITS | Encounter Summary ---
Author Organization [facility] Address [facility] [place] [address] Care Team Providers Care Accounting Tutor Name Role Phone MarileeEvelyne APRN Primary Care Provider [phone] Reason for Visit * Reason Comments Established 3 mth ck Encounter Details Date Type Department Care Team (Late st Contact Info) Description 04/08/2022 2:20 PM EST Office Visit [place] [address] Pasquale Mederos MD [facility] [place] [address] Encounter for chemotherapy management; History of ovarian cancer; BRCA negative; S/P AVR (aortic valve replacement) Social History Tobacco Use Types Packs/Day Years [...] Sign Reading Time Taken Comments Blood Pressure 149/96 04/08/2022 2:22 PM EST bp up today at home normal Pulse 89 04/08/2022 2:22 PM EST Temperature 36.3 ??C (97.3 ??F) 04/08/2022 2 :22 PM EST Respiratory Rate 16 04/08/2022 2:22 PM EST Oxygen Saturation 99% 04/08/2022 2:2 2 PM EST Inhaled Oxygen Concentration - - Weight 59 kg (130 lb) 04/08/2022 2:22 PM EST Height 164.4 cm (5' 4.72) 04/08/2022 2 :22 PM EST Body Mass Index 21.82 04/08/2022 2:22 PM EST documented in this encounter Progress Notes * Pasquale Mederos MD - 04/08/2022 2:20 PM EST Division [place] [address] Follow-up Visit: Patient Active Problem List Diagnosis Code ??? Hypothyroidism E03.9 ??? SVT (supraventricular tachycardia) I47.1 ??? Bicuspid aortic valve Q23.1 ??? Chest pain R07.9 ??? Aortic valve stenosis I35.0 ??? HTN (hypertension) I10 ??? 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 BRCA negative Z13.71 ??? 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 07/20/19 TAHBSO/omentectomy/rectosigmoid resection/PPALND. R0. #1 Taxol/carbo/Avastin. Tumor Testing: The CancerNext analysis of Ivana's [...] replacement and spetal myectomy for progressive aortic stensosis. She has recovered from this well and is off of warfarin and back to driving. She is feeling less winded and looking forward to skiing. She is having regular bowel movements and is eating well. Her appetite and energy level is improving since her heart surgery. She denies fevers, chills, dysuria, abdominal/pelvic pain, vaginal bleeding, nausea, vomiting or diarrhea. She has no abdominal or pelvic pain. She stopped her zejula for a few days around the surgery and has been tolerating it well at 100 mg per day. Objective: Vitals: 04/08/22 1422 BP: (!) 149/96 Patient Position: Sitting Pulse: 89 Resp: 16 Temp: 36.3 ??C (97.3 ??F) TempSrc: Temporal SpO2: 99% Weight: 59 kg (130 lb) Height: 164.4 cm (5' 4.72) Body mass index is 21.82 kg/m??. Body surface area is 1.64 meters [...] Coordination: Coordination normal. Psychiatric: Behavior: Behavior normal. Latest Reference Range & Units 04/08/22 13:17 WBC 4.0 - 9.5 x10(3)/mcL 5.8 RBC 4.00 - 5.21 x10(6)/mcL 3.93 (L) Hemoglobin 11.7 - 15.5 g/dL 13.9 Hematocrit 35.7 - 45.8 % 40.8 MCV 82.6 - 94.4 fL 103.8 (H) MCH 27.1 - 32.0 pg 35.4 (H) MCHC 31.7 - 35.0 g/dL 34.1 RDWSD 37.0 - 46.0 fL 48.8 (H) RDWCV 11.5 - 14.1 % 12.6 Platelets 145 - 357 x10(3)/mcL 230 MPV 7.6 - 12.9 fL 8.9 nRBC % Auto % 0.0 nRBC Abs Auto 0.000 - 0.000 x10(3)/mcL 0.000 Neutr Abs (ANC) 1.70 - 6.10 x10(3)/mcL 3.59 Neutrophils % % 62.3 Immature Gran % % 0.30 Lymphocytes % % 24.5 Monocytes % % 7.5 Eosinophils % % 4.0 Basophils % % 1.4 Mercedes Gran Abs 0.00 - 0.04 x10(3)/mcL 0.02 Lymphocytes Abs 0.9 - 3.2 x10(3)/mcL 1.4 Monocyte Abs 0.3 - 0.9 x10(3)/mcL 0.4 Eosinophils Abs 0.0 - 0.4 x10(3)/mcL 0.2 Basophils Abs 0.0 - 0.1 x10(3)/mcL 0.1 Sodium 135 - 145 mmol/L 138 Potassium 3.5 - 5.0 mmol/L 4.5 Chloride 98 - 107 mmol/L 101 CO2 22 - 31 mmol/L 28 Anion Gap 5 - 15 mmol/L 9 BUN 8 - 18 mg/dL 12 Creatinine 0.70 - 1.20 mg/dL 0.83 Estimated GFR >=60 mL/min/1.73 m?? 80 Calcium 8.5 - 10.5 mg/dL 10.2 Glucose Lvl 65 - 199 mg/dL 97 Total Protein 6.1 - 8.0 g/dL 7.3 Albumin 3.2 - 5.2 g/dL 4.8 Total Bilirubin 0.2 - 1.3 mg/dL 0.8 Alk Phos 35 - 105 unit/L 106 (H) AST 0 - 30 unit/L 25 ALT 0 - 30 unit/L 37 (H) (L): Data is abnormally low (H): Data is abnormally high Latest Reference Range & Units 09/12/20 00:00 01/07/22 12:14 04/08/22 13:17 CA 125 <=38.1 unit/mL 5 (E) 10.8 14.9 (E): External lab result Assessment and Plan: Gabi Luna is a 61 y.o. 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 She is doing well and has no evidence of recurrent cancer. Signs and symptoms of recurrent disease reviewed. Her CA125 is still within the normal range but slightly up from her usual baseline as isto be expected as she has had recent open heart surgery. She is currently on maintenance niraparib and is tolerating this very well. She wishes to stay on this and we reviewed the risks, relative unknowns and she is aware but would like to continue. Will continue monitoring labs. RTC 6 months. PASQUALE MEDEROS MD * Eleni Marcial LNA - 04/08/2022 2:20 PM EST Examination chaperoned by ALEJANDRO DAI. 04/08/22 In the [facility] clinic. documented in this encounter Plan of Treatment Upcoming Encounters Date Type Department Care Team (Latest Contact Info) Description 12/25/2023 9:[address] Scan at [place] [phone] Xavier Malhotra MD [facility] [place] [address] 12/29/2023 Hospital Encounter Electrophysiology Lab at [place] [address] Xavier Malhotra MD [facility] [place] [place] [address] Paroxysmal atrial fibrillation 12/29/2023 7:30 AM EDT - 12/29/2023 12:00 PM EDT Surgery [place] [address] Xavier Malhotra MD [facility] [place] [address] ELECTROPHYSIOLOGY PROCEDURE 01/14/2024 10:40 AM EDT Office Visit Cardiology at [place] [address] Carmen Castaneda PA [facility] [place] [address] Scheduled Procedures Name Priority Associated Diagnoses Date/Ti me TRANSESOPHAGEAL ECHO DURING CATH/EP PROCEDURE Paroxysmal atrial fibrillation 12/29/2023 7:30 AM EDT documented as of this encounter Goals Goal Patient Goal Type Associated Problems Recent Progress Patient-Stated? Author DH [place] Medication Compliance and Understanding Patient Facing Action Plan Lani Love, [facility] Note: Maintain control of disease for as long as possible as assessed by tumor marker levels and scans in clinic every 3 to 6 months documented as of this encounter Visit Diagnoses Diagnosis Encounter for chemotherapy management History of ovarian cancer Personal history of malignant neoplasm of ovary BRCA negative Screening for genetic disease carrier status S/P AVR (aortic valve replacement) Heart valve replaced by other means Paroxysmal atrial fibrillation Atrial fibrillation Paroxysmal atrial fibrillation Atrial fibrillation documented in this encounter Care Teams Accounting Tutor Relationship Specialty Start Date End Date Evelyne Hunt APRN [address] [place] [address] PCP - General Internal Medicine 09/23/17 documented as of this encounter
--- OUTSIDE RECORDS SUMMARY | 2023-12-01 02:10 | XMS_ITS | Encounter Summary ---
Author Organization [facility] [place] [address] Care Team Providers Care Tape Controlled Machine Stitcher Name Role Phone Kiki Huntyce Dat STEVEN Primary Care Provider [phone] Reason for Visit * Reason Comments Specialty Refill Management Zejula 100mg caps Encounter Details Date Type Department Care Team (Late st Contact Info) Description 09/13/2022 Specialty [place] [address] Teofilo Mccullough, ZONING TECHNICIAN Social History Tobacco Use Types Packs/Day Years [...] as of this encounter Progress Notes * Teofilo Mccullough - 09/13/2022 9:56 AM EDT Clinical Management Plan: Refill Specialty Pharmacy Consultation; Teofilo Mccullough Comprehensive Medication Management (CMM) Gabi Luna is a 61 y.o. (1960) [...] complete drug. Medication Reconciliation Discrepancies (compared to [facility] med list) No Specialty Pharmacy Refill Questionnaire 09/13/2022 Refill Questionnaire What is the name of the specialty medication you are refilling? Zejula 100mg caps Are you taking any new medications? No Any new medical condition? No Any new allergies? No Any new side effects that are bothersome? No What date will you need this fill by? 09/20/2022 Adherence: Any missed doses? No Patient understands no changes to current drug regimen were made. Teofilo Mccullough 09/13/22 9:56 AM documented in this encounter Plan of Treatment Upcoming Encounters Date Type Department Care Team (Latest Contact Info) Description 12/25/2023 9:[address] [place] [address] Xavier Malhotra MD [facility] [place] [address] 12/29/2023 Hospital Encounter [place] [phone] Xavier Malhotra MD [facility] [place] [address] Paroxysmal atrial fibrillation 12/29/2023 7:30 AM EDT - 12/29/2023 12:00 PM EDT Surgery [place] [phone] Xavier Malhotra MD [facility] [place] [address] ELECTROPHYSIOLOGY PROCEDURE 01/14/2024 10:40 AM EDT Office Visit Cardiology at [address] [phone] Carmen Castaneda PA [facility] [place] [address] Scheduled Procedures Name Priority Associated Diagnoses Date/Ti me TRANSESOPHAGEAL ECHO DURING CATH/EP PROCEDURE Paroxysmal atrial fibrillation 12/29/2023 7:30 AM EDT documented as of this encounter Goals Goal Patient Goal Type Associated Problems Recent Progress Patient-Stated? Author DH Home Medication Compliance and Understanding Patient Facing Action Plan No Lani Vargas, [facility] Note: Maintain control of disease for as long as possible as assessed by tumor marker levels and scans in clinic every 3 to 6 months documented as of this encounter Visit Diagnoses Not on filedocumented in this encounter Care Teams Tape Controlled Machine Stitcher Relationship Specialty Start Date End Date Evelyne Hunt APRN [address] [place] [address] PCP - General Internal Medicine 09/23/17 documented as of this encounter
--- OUTSIDE RECORDS SUMMARY | 2023-12-01 02:10 | XMS_ITS | Encounter Summary ---
Author Organization Formerly [facility], [facility] Address [facility] [place] [address] Care Team Providers Care Wired Sweatband Cutter Name Role Phone Evelyne Hunt APRN Primary Care Provider [phone] Encounter Details Date Type Department Care Team (Late st Contact Info) Description 05/07/2022 1:00 PM EST Office Visit Cardiology at [address] [phone] Mandeep Franco MD [facility] [place] [address] PAF (paroxysmal atrial fibrillation); Bicuspid aortic valve; Hypertension, unspecified type Social History Tobacco Use Types [...] Sign Reading Time Taken Comments Blood Pressure 144/74 05/07/2022 12:46 PM EST Pulse 58 05/07/2022 12:46 PM EST Temperature - - Respiratory Rate - - Oxygen Saturation 100% 05/07/2022 12: 46 PM EST Inhaled Oxygen Concentration - - Weight 58.6 kg (129 lb 1.6 oz) 05/07/2022 12:46 PM EST Height 165.1 cm (5' 5) 05/07/2022 12:4 6 PM EST patient reported Body Mass Index 21.48 05/07/2022 12:46 PM EST documented in this encounter Patient Instructions * Patient Instructions* Mandeep Franco MD - 05/07/2022 1:00 PM EST F/u in 3-6 months documented in this encounter Progress Notes * Mandeep Franco MD - 05/07/2022 1:00 PM EST Images from the original note were not included. [facility] [place] [address] [address] Cardiology Clinic Note CC: Aortic valve disease Patient Name: Gabi Luna HPI: Gabi Luna is a 61 yr old year old woman with a PMH of ovarian cancer, severe , moderate AI s/p bp AVR (01/2022) as well as SVT status post unsuccessful ablation previously followed by Dr. Subramanian. Here today for routine follow up. Last seen in 02/2022. Reports that she is feeling well and has no specific complaints. Doing cardiac rehab at [facility] 3 days/week. States that she is working hard and reports this is going really well. Using the TM, resistance bands, weights, etc. States I really, really like it. States that she feels fine with physical activity; no exertional symptoms or concerns. Overall, she feels really good and states that, At this point, I have to remind myself that I had surgery. Has had a TTE since our last visit. This showed that he valve was functioning normally No CP, MIRANDA, orthopnea, PND, or edema. 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 IR MEDIPORT REMOVAL 10/04/2020 IR Mediport Removal 10/04/2020 Mahesh Wick MD [facility] INTERVENTIONL RAD ? ? PRG CATH [facility] CORONARY ART W/INJ FOR ANGIO W/R HEART CATH IMG S&I N/A 12/17/2021 CORONARY ANGIOGRAPHY; W RHC performed by Cristóbal Cuevas MD at [facility] CATH LABS ??? PRO GINA SALP-OOPH W/OMENTECT, FREDI, RAD DISSECT N/A 07/20/2019 @HYSTERECTOMY, FREDI, BSO, DEBULKING (WRVU 34.13) performed by Natalie Vallejo MD at [facility] MAIN OR ??? PRO COLONOSCOPY, REMV LESN, SNARE N/A 05/01/2021 COLONOSCOPY, POLYPECTOMY, REMOVAL LESION BY SNARE (WRVU 4.67) performed by Arlin Agudelo MDat [facility] ENDOSCOPY ??? PRO REPLACEMENT PROSTHETIC AORTIC VALVE OPEN W CARDIOPULMONARY BYPASS HOMOGRF/STENT N/A 01/29/2022 @REPLACE AORTIC VALVE, OPEN, W\CPB, W\PROSTHETIC VALVE (WRVU 41.32) performed by Efrain Felder MD at [facility] MAIN OR ??? PRO FABRIZIO VENT MUSC FOR IHSS N/A 01/29/2022 @VENTRICULOMYOTOMY (-MYECTOMY) FOR IDIOPATHIC HYPERTROPHIC SUBAORTIC STENOSIS (WRVU 36.56) performed by Efrain Felder MD at [facility] MAIN OR Current Outpatient Medications Medication Instructions ??? acetaminophen (TYLENOL) 1,000 mg, Oral, EVERY 6 HOURS PRN ??? aspirin 81 mg, Oral, DAILY ??? [...] TWO TABLETS BY MOUTH AT BEDTIME NEEDED Social History Socioeconomic History ??? Marital status: Spouse name: Not on file ??? Number of children: Not on file ??? Years of education: Not on file ??? Highest education level: Not on file Occupational History ??? Not on file Tobacco Use ??? Smoking status: Former Types: Cigarettes Quit date: 07/12/1977 Years since quittin.8 ??? Smokeless tobacco: Never Vaping Use ??? [...] Temperature Temp: -- Heart Rate Heart Rate: 58 Heart Rate: [58] Blood Pressure BP: 144/74 BP: (144)/(74) Respiratory Rate Resp: -- SpO2 SpO2: 100 [...] in the last 168 hours. Diagnostic Studies: Rima (02/2022) Conclusion(s): 1. This monitor is notable for normal sinus rhythm with a relatively constricted rate histogram between 53 and 87 bpm. This could correspond to pharmacotherapy or patient inactivity. 2. There is no atrial fibrillation detected. 3. The 14 triggered or diary events correspond to normal sinus rhythm with normal rates. TTE (02/2022) Left ventricle is of normal size. Wall [...] dimensionless index is 0.65. No significant regurgitation. TON (01/2022) Post Procedure Findings: Patient is [...] findings. Compared to the outside TTE dated 05/05/19, findings appear qualitatively similar. I have personally reviewed the above ECG & imaging studies ASSESSMENT: This is an extraordinarily pleasant 61-year-old woman with a history of a bicuspid aortic valve andSVT who was previously followed by Dr. Subramanian. TTE at that visit demonstrated a bicuspid valve now with severe stenosis and moderate regurgitation. The valve appears calcified with impaired systolic motion of the leaflets. The mean gradient across her valve increased [...] (MIRANDA, lightheadedness) in the setting of severe ,I referred her for a surgical valve replacement which was done in January 2022. Here today for routine follow up and doing very well from a cardiac perspective. She is going to cardiac rehab and is really enjoying this. She feels well and has no exertional symptoms or concerns to report today. I am pleased with the progress she has made since our last visit. Her recent TTE showed normal prosthetic AoV function and no LVOT gradient. A Zio in 02/2022 showed no atrial fibrillation so her amiodarone and Eliquis were discontinued. PLAN: # Severe s/p bp AVR (23 mm Inspiris) # Hx of bicuspid aortic valve - Prior to surgery-- SUDHAKAR: 0.7 cm2, M mmHg, Vmax: 4.6 m/sec - Recent TTE reveals M mmHg with DVI of 0.65 (02/2022) - continue ASA # Septal thickening w/ JERRY s/p myectomy - prior to surgery-- MG at rest: 5 mmHg; MG with Valsalva: 34 mmHg - MG during surgery was 7 mmHg; no gradient on TTE (02/2022) - continue metoprolol # Atrial fibrillation, paroxysmal, post operative - recent Zio revealed no AF (02/2022) - not currently on OAC or amiodarone # ASCVD, non-obstructive - continue ASA, statin, BB # SVT - No SVT during EPS Mandeep Franco MD, FACP, FACC Section of Cardiovascular Medicine [facility] Finisherenamel buffer [facility] documented in this encounter Plan of Treatment Upcoming Encounters Date Type Department Care Team (Latest Contact Info) Description 12/25/2023 9:[address] [place] [address] Xavier Malhotra MD [facility] [place] [address] 12/29/2023 Hospital Encounter [place] [phone] Xavier Malhotra MD [facility] [place] [address] Paroxysmal atrial fibrillation 12/29/2023 7:30 AM EDT - 12/29/2023 12:00 PM EDT Surgery [place] [address] Xavier Malhotra MD [facility] [place] [place] [address] ELECTROPHYSIOLOGY PROCEDURE 01/14/2024 10:40 AM EDT Office Visit Cardiology at [address] [phone] Carmen Castaneda [place] [address] Scheduled Procedures Name Priority Associated Diagnoses Date/Ti [...] as of this encounter Visit Diagnoses Diagnosis PAF (paroxysmal atrial fibrillation) Atrial fibrillation Bicuspid aortic valve Congenital insufficiency of aortic valve Hypertension, unspecified type Paroxysmal atrial fibrillation Atrial fibrillation Paroxysmal atrial fibrillation Atrial fibrillation documented in this encounter Care Teams Wired Sweatband Cutter Relationship Specialty Start Date End Date Evelyne Hunt APRN [address] [place] [address] PCP - General Internal Medicine 09/23/17 documented as of this encounter
--- OUTSIDE RECORDS SUMMARY | 2023-12-01 02:10 | XMS_ITS | Encounter Summary ---
Author Organization [facility] [place] [address] Care Team Providers Care Senior Engineering Tech Name Role Phone Kiki Huntyce Dat STEVEN Primary Care Provider [phone] Encounter Details Date Type Department Care Team (Latest Contact Info) Description 07/29/2022 Travel Social History Tobacco Use Types Packs/Day [...] 9:[address] [place] [place] [address] Xavier Malhotra MD [facility] [place] [address] 12/29/2023 Hospital Encounter [place] [phone] Xavier Malhotra MD [facility] [place] [address] Paroxysmal atrial fibrillation 12/29/2023 7:30 AM EDT - 12/29/2023 12:00 PM EDT Surgery [place] [address] Xavier Malhotra MD [facility] [place] [address] ELECTROPHYSIOLOGY PROCEDURE 01/14/2024 10:40 AM EDT Office Visit Cardiology at [address] [phone] Carmen Castaneda PA [facility] [place] [address] Scheduled Procedures Name Priority Associated Diagnoses Date/Ti [...] filedocumented in this encounter Care Teams Senior Engineering Tech Relationship Specialty Start Date End Date Evelyne Hunt APRN [address] [place] [address] PCP - General Internal Medicine 09/23/17 documented as of this encounter
--- OUTSIDE RECORDS SUMMARY | 2023-12-01 02:10 | XMS_ITS | Encounter Summary ---
Author Organization [facility] [place] [address] Care Team Providers Care Jet Engine Mechanic Name Role Phone Kiki Huntyce Dat STEVEN Primary Care Provider [phone] Encounter Details Date Type Department Care Team (Latest Contact Info) Description 04/30/2022 Travel Social History Tobacco Use Types Packs/Day [...] 9:[address] [place] [address] Xavier Malhotra MD [facility] [place] [address] 12/29/2023 Hospital Encounter [place] [phone] Xavier Malhotra MD [facility] [place] [address] Paroxysmal atrial fibrillation 12/29/2023 7:30 AM EDT - 12/29/2023 12:00 PM EDT Surgery [place] [address] Xavier Malhotra MD [facility] [place] [address] ELECTROPHYSIOLOGY PROCEDURE 01/14/2024 10:40 AM EDT Office Visit Cardiology at [address] [phone] Carmen Castaneda PA [facility] [place] [address] Scheduled Procedures Name Priority Associated Diagnoses Date/Ti me TRANSESOPHAGEAL ECHO DURING CATH/EP PROCEDURE Paroxysmal atrial fibrillation 12/29/2023 7:30 AM EDT documented as of this encounter Goals Goal Patient Goal Type Associated Problems Recent Progress Patient-Stated? Author DH Home Medication Compliance and Understanding Patient Facing Action Plan No Lani Vargas, [facility] Note: Maintain control of disease for as long as possible as assessed by tumor marker levels and scans in clinic every 3 to 6 months documented as of this encounter Visit Diagnoses Not on filedocumented in this encounter Care Teams Jet Engine Mechanic Relationship Specialty Start Date End Date Evelyne Hunt APRN [address] [place] [address] PCP - General Internal Medicine 09/23/17 documented as of this encounter
--- OUTSIDE RECORDS SUMMARY | 2023-12-01 02:10 | XMS_ITS | Encounter Summary ---
Author Organization [facility] [place] [address] Care Team Providers Care Forest Aide Name Role Phone Kiki Huntjunaid Daugherty APRN Primary Care Provider [phone] Encounter Details Date Type Department Care Team (Latest Contact Info) Description 02/27/2022 Travel Social History Tobacco Use Types Packs/Day [...] 9:[address] [place] [address] [facility] [place] [address] 12/29/2023 Hospital Encounter [place] [phone] [facility] [place] [address] Paroxysmal atrial fibrillation 12/29/2023 7:30 AM EDT - 12/29/2023 12:00 PM EDT Surgery [place] [address] [facility] [place] [address] ELECTROPHYSIOLOGY PROCEDURE 01/14/2024 10:40 AM EDT Office Visit Cardiology at [address] [phone] [facility] [address] Scheduled Procedures Name Priority Associated Diagnoses Date/Ti me TRANSESOPHAGEAL ECHO DURING CATH/EP PROCEDURE Paroxysmal atrial fibrillation 12/29/2023 7:30 AM EDT documented as of this encounter Goals Goal Patient Goal Type Associated Problems Recent Progress Patient-Stated? Author DH Home Medication Compliance and Understanding Patient Facing Action Plan No Lani Vargas, [facility] Note: Maintain control of disease for as long as possible as assessed by tumor marker levels and scans in clinic every 3 to 6 months documented as of this encounter Visit Diagnoses Not on filedocumented in this encounter Care Teams Forest Aide Relationship Specialty Start Date End Date Evelyne Hunt APRN [address] [place] [address] PCP - General Internal Medicine 09/23/17 documented as of this encounter
--- OUTSIDE RECORDS SUMMARY | 2023-12-01 02:10 | XMS_ITS | Encounter Summary ---
Author Organization [facility] [place] [address] Care Team Providers Care Diesel Stationary Engineer Name Role Phone Kiki Huntjunaid Daugherty APRN Primary Care Provider [phone] Encounter Details Date Type Department Care Team (Latest Contact Info) Description 03/03/2022 Travel Social History Tobacco Use Types Packs/Day [...] 9:[address] [place] [address] Xavier Malhotra MD [facility] [place] [address] 12/29/2023 Hospital Encounter [place] [phone] Xavier Malhotra MD [facility] [place] [address] Paroxysmal atrial fibrillation 12/29/2023 7:30 AM EDT - 12/29/2023 12:00 PM EDT Surgery [place] [address] Xavier Malhotra MD [facility] [place] [address] ELECTROPHYSIOLOGY PROCEDURE 01/14/2024 10:40 AM EDT Office Visit Cardiology at [address] [phone] Carmen Castaneda PA [facility] [place] [address] Scheduled Procedures Name Priority Associated Diagnoses Date/Ti me TRANSESOPHAGEAL ECHO DURING CATH/EP PROCEDURE Paroxysmal atrial fibrillation 12/29/2023 7:30 AM EDT documented as of this encounter Goals Goal Patient Goal Type Associated Problems Recent Progress Patient-Stated? Author DH Home Medication Compliance and Understanding Patient Facing Action Plan No Lani Vargas, [facility] Note: Maintain control of disease for as long as possible as assessed by tumor marker levels and scans in clinic every 3 to 6 months documented as of this encounter Visit Diagnoses Not on filedocumented in this encounter Care Teams Diesel Stationary Engineer Relationship Specialty Start Date End Date Evelyne Hunt APRN [address] [place] [address] PCP - General Internal Medicine 09/23/17 documented as of this encounter
--- OUTSIDE RECORDS SUMMARY | 2023-12-01 02:10 | XMS_ITS | Encounter Summary ---
[place] [address] Care Team Providers Care Biometrician Name Role Phone Evelyne Hunt APRN Primary Care Provider [phone] Encounter Details Date Type Department Care Team (Late st Contact Info) Description 07/15/2022 Telephone Cardiology at [address] [phone] Praveena Petty, RN Social History Tobacco Use [...] Telephone Encounter - Praveena Petty RN - 07/15/2022 2:10 PM EDT Patient called to report that last evening she developed some heart palpitations/racing heart that she hadn't had in some time. She has been doing great and feeling better than she had in years- she just finished her cardiac rehab though now she plans on going 2x/week on her own to continue activity. She says the palpitations lasted most of the evening ( usually only lasts for seconds) but then shewent to bed and felt better this morning but still feels a little off maybe. She plans on going to rehab still. When discussing the episode and her medications she says that her PCP had put her on Levothyroxine 50mcg daily back in April ( low thyroid) so that will be added to her med list. She also says she tried some powdered OTC collagen peptide for her skin/nails/hair. She had 2 scoops of that in 2 separate doses Friday. And then she also started drinking some blueberry kombucha. She is staying hydrated with water and as far as she knows not drinking much by way of caffeinated drinks. She denies any CP, SOB or other sx and was able to walk normally today. She is taking her Metoprolol and she was taken off her AC back in March when her Zio did not show any AF. She does have a hxof SVT as well. Patient says she did try the pill in a pocket in the past but nothing recent. Patient wonders if anxiety that she feels is contributing- this was discussed.it was discussed that she may need another zio or med adjustment should the episode happen again. This was the first time in a long time she felt this way. Praveena Vega RNlayup worker Cardiovascular Clinic General Team-Ottoniel documented in this encounter Plan of Treatment Upcoming Encounters Date Type Department Care Team (Latest Contact Info) Description 12/25/2023 9:[address] [place] [place] [address] Xavier Malhotra MD [facility] [place] [address] 12/29/2023 Hospital Encounter [place] [address] Xavier Malhotra MD [facility] [place] [address] Paroxysmal atrial fibrillation 12/29/2023 7:30 AM EDT - 12/29/2023 12:00 PM EDT Surgery [place] [phone] Xavier Malhotra MD [facility] [place]ROP[place] [address] ELECTROPHYSIOLOGY PROCEDURE 01/14/2024 10:40 AM EDT Office Visit Cardiology at [address] [address] Carmen Castaneda PA [facility] [place] [address] Scheduled Procedures Name Priority Associated Diagnoses Date/Ti ky TRANSESOPHAGEAL ECHO DURING CATH/EP PROCEDURE Paroxysmal atrial fibrillation 12/29/2023 7:30 AM EDT documented as of this encounter Goals Goal Patient Goal Type Associated Problems Recent Progress Patient-Stated? Author DH Home Medication Compliance and Understanding Patient Facing Action Plan Lani Love, [facility] Note: Maintain control of disease for as long as possible as assessed by tumor marker levels and scans in clinic every 3 to 6 months documented as of this encounter Visit Diagnoses Not on filedocumented in this encounter Care Teams Biometrician Relationship Specialty Start Date End Date [facility]elyne Hunt [facility]N [address] [facility] [address] PCP - General Internal Medicine 09/23/17 documented as of this encounter
--- OUTSIDE RECORDS SUMMARY | 2023-12-01 02:10 | XMS_ITS | Encounter Summary ---
Author Organization Count Includes [facility] [place] [address] Care Team Providers Care Television Repairer Name Role Phone MarileeEvelyne APRN Primary Care Provider [phone] Encounter Details Date Type Department Care Team (Late st Contact Info) Description 03/28/2022 Telephone Cardiology at [address] [phone] Praveena Petty, RN Social History Tobacco Use [...] Telephone Encounter - Praveena Petty RN - 03/28/2022 11:26 AM EST Patient called to ask if she can now go off Coumadin after her Zio patch results came back not showing any AF. She says Dr. Felder said she only needed to be on the Coumadin for a month post-op ( AVR 01/29/22w/post-op AF) and then without any AF she felt that Dr. Franco had said she may be able to go offit too. She says she has had a hard time getting her INR's level so she has to keep going back for finger sticks including tomorrow morning. She would really like to be off the medication. On a side note she is really enjoying cardiac rehab. Praveena Vega RNmanufactured buildings supervisor Cardiovascular Clinic General Team-[place] documented in this encounter Plan of Treatment Upcoming Encounters Date Type Department Care Team (Latest Contact Info) Description 12/25/2023 9:[address] Scan at [address] Xavier Malhotra MD [facility] [place] [address] 12/29/2023 Hospital Encounter [place] [address] Xavier Malhotra MD [facility] [place] [address] Paroxysmal atrial fibrillation 12/29/2023 7:30 AM EDT - 12/29/2023 12:00 PM EDT Surgery Electrophysiology Lab at [place] [address] Xavier Malhotra MD [facility] [place] [address] ELECTROPHYSIOLOGY PROCEDURE 01/14/2024 10:40 AM EDT Office Visit Cardiology at [address] Carmen Castaneda PA [facility] [place] [address] Scheduled Procedures Name Priority Associated Diagnoses Date/Ti me TRANSESOPHAGEAL ECHO DURING CATH/EP PROCEDURE Paroxysmal atrial fibrillation 12/29/2023 7:30 AM EDT documented as of this encounter Goals Goal Patient Goal Type Associated Problems Recent Progress Patient-Stated? Author DH Home Medication Compliance and Understanding Patient Facing Action Plan Lani Love, [facility] Note: Maintain control of disease for as long as possible as assessed by tumor marker levels and scans in clinic every 3 to 6 months documented as of this encounter Visit Diagnoses Not on filedocumented in this encounter Care Teams Television Repairer Relationship Specialty Start Date End Date Evelyne Hunt APRN [address] [place] [address] PCP - General Internal Medicine 09/23/17 documented as of this encounter
--- OUTSIDE RECORDS SUMMARY | 2023-12-01 02:10 | XMS_ITS | Encounter Summary ---
Author Organization [facility] [place] [address] Care Team Providers Care Yolk Spray Drier Name Role Phone Kiki Huntjunaid Daugherty APRN Primary Care Provider [phone] Encounter Details Date Type Department Care Team (Latest Contact Info) Description 04/08/2022 Travel Social History Tobacco Use Types Packs/Day [...] 9:[address] [place] [address] Xavier Malhotra MD [facility] [place] [address] 12/29/2023 Hospital Encounter [place] [phone] Xavier Malhotra MD [facility] [place] [address] Paroxysmal atrial fibrillation 12/29/2023 7:30 AM EDT - 12/29/2023 12:00 PM EDT Surgery [place] [address] Xavier Malhotra MD [facility] [place] [address] ELECTROPHYSIOLOGY PROCEDURE 01/14/2024 10:40 AM EDT Office Visit Cardiology at [address] [phone] Carmen Castaneda PA [facility] [place] [address] Scheduled Procedures Name Priority Associated Diagnoses Date/Ti me TRANSESOPHAGEAL ECHO DURING CATH/EP PROCEDURE Paroxysmal atrial fibrillation 12/29/2023 7:30 AM EDT documented as of this encounter Goals Goal Patient Goal Type Associated Problems Recent Progress Patient-Stated? Author DH Home Medication Compliance and Understanding Patient Facing Action Plan No Lani Vargas, [facility] Note: Maintain control of disease for as long as possible as assessed by tumor marker levels and scans in clinic every 3 to 6 months documented as of this encounter Visit Diagnoses Not on filedocumented in this encounter Care Teams Yolk Spray Drier Relationship Specialty Start Date End Date Evelyne Hunt APRN [address] [place] [address] PCP - General Internal Medicine 09/23/17 documented as of this encounter
--- OUTSIDE RECORDS SUMMARY | 2023-12-01 02:10 | XMS_ITS | Encounter Summary ---
Author Organization [facility] Address [facility] [place] [address] Care Team Providers Care Help Desk Manager Name Role Phone Evelyne Hunt APRN Primary Care Provider [phone] Encounter Details Date Type Department Care Team (Latest Contact Info) Description 03/08/2022 9:38 AM EST - 03/08/2022 9:59 AM EST Hospital Encounter XRay at [address] [place] [address] Efrain Felder MD [facility] [place] [address] Aortic valve stenosis, etiology of cardiac valve [...] 9:[address] [place] [phone] Xavier Malhotra MD [facility] [place] [address] 12/29/2023 Hospital Encounter [place] [phone] Xavier Malhotra MD [facility] [place] [address] Paroxysmal atrial fibrillation 12/29/2023 7:30 AM EDT - 12/29/2023 12:00 PM EDT Surgery [place] [phone] Xavier Malhotra MD [facility] [place] [address] ELECTROPHYSIOLOGY PROCEDURE 01/14/2024 10:40 AM EDT Office Visit Cardiology at [address] [phone] Carmen Castaneda PA [facility] DR CARDIOLOGY [place], [place] [id number] Scheduled Procedures Name Priority Associated Diagnoses Date/Ti [...] Procedure Name Priority Date/Time Associated Diagnosis Comments XR CHEST PA AND LATERAL Routine 03/08/2022 9:50 AM EST Aortic valve stenosis, etiology of cardiac valve disease unspecified documented in this encounter Results * XR Chest PA & Lateral (Generic) (03/08/2022 9:50 AM EST) Anatomical Region Laterality Modality Chest N/A Digital Radiogra phy Impressions 03/08/2022 10:39 AM EST Status post aortic valve repair without evidence of complication. Previously seen effusions and atelectasis have resolved. I have personally reviewed the image(s) and the resident's interpretation and agree with the findings, Tammi Rea MD at 03/08/2022 10:39 AM Thank you for letting us participate in the care of this patient. ??If you are a health care provider and have any questions regarding this report, please contact the number below. ??For patients who have questions please contact the health child care group leader that requested your imaging first. ? Narrative 03/08/2022 10:39 AM EST EXAMINATION: XR CHEST PA AND LATERAL (GENERIC) CLINICAL HISTORY: s/p AVR for post-op only TECHNIQUE: PA and lateral views of the chest COMPARISON: PA and lateral views of the chest 02/01/2022 FINDINGS: Prosthetic aortic valve replacement unchanged in appearance. Intact sternotomy cerclage wires. Small electronic device exterior to the patient on left chest. Scattered surgical clips in the hemithorax. The lungs are clear and well aerated. Contours of the mediastinum and cardiac silhouette are normal. Resolved bilateral pleural effusions. No pneumothorax. No displaced rib fractures. Procedure Note Tammi Oquendo MD - 03/08/2022 EXAMINATION: XR CHEST PA AND LATERAL (GENERIC) CLINICAL HISTORY: s/p AVR for post-op only TECHNIQUE: PA and lateral views of the chest COMPARISON: PA and lateral views of the chest 02/01/2022 FINDINGS: Prosthetic aortic valve replacement unchanged in appearance. Intactsternotomy cerclage wires. Small electronic device exterior to the patient on leftchest. Scattered surgical clips in the hemithorax. The lungs are clear and well aerated. Contours of the mediastinum andcardiac silhouette are normal. Resolved bilateral pleural effusions. Nopneumothorax. No displaced rib fractures. IMPRESSION Status post aortic valve repair without evidence of complication. Previously seen effusions and atelectasis have resolved. I have personally reviewed the image(s) and the resident's interpretationand agree with the findings, Tammi Rea MD at 0:39 AM Thank you for letting us participate in the care of this patient. If youare a health care provider and have any questions regarding this report,please contact the number below. For patients who have questions please contactthe health child care group leader that requested your imaging first. Efrain Felder MD IMG DX ORDERABLES documented in this encounter Visit Diagnoses Diagnosis Aortic valve stenosis, etiology of cardiac valve disease unspecified Paroxysmal atrial fibrillation Atrial fibrillation Paroxysmal atrial fibrillation Atrial fibrillation documented in this encounter Care Teams Help Desk Manager Relationship Specialty Start Date End Date Evelyne Hunt APRN [address] [place] [address] PCP - General Internal Medicine 09/23/17 documented as of this encounter
--- OUTSIDE RECORDS SUMMARY | 2023-12-01 02:10 | XMS_ITS | Encounter Summary ---
Author Organization Formerly [facility] [place] [address] Care Team Providers Care Retail Sales Consultant Name Role Phone Evelyne Hunt APRN Primary Care Provider [phone] Encounter Details Date Type Department Care Team (Latest Contact Info) Description 10/07/2022 8:05 AM EDT - 10/07/2022 11:59 PM EDT Hospital Encounter Hematology [place] [address] History of ovarian cancer Discharge Disposition: Home [...] tablet daily. 02/22/2022 clobetasoL (Temovate) 0.05 % OintmentIndications:L ichen sclerosus et atrophicus Apply topically daily. 30 [...] hr TK 1 T PO QAM 10/01/2019 niraparib (Zejula) 100 mg capsuleIndications:ep ithelial ovarian cancer Take 1 capsule (100 mg) by mouth daily. 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 05/23/2022 11/11/2022 metoproloL tartrate (Lopressor) 25 mg tablet Take [...] 9:[address] [place] [address] Xavier Malhotra MD [facility] [place] [address] 12/29/2023 Hospital Encounter Electrophys[place] [phone] Xavier Malhotra MD [facility] [place] [address] Paroxysmal atrial fibrillation 12/29/2023 7:30 AM EDT - 12/29/2023 12:00 PM EDT Surgery [place]rophys[place] [phone] Xavier Malhotra MD [facility] [place] [address] ELECTROPHYSIOLOGY PROCEDURE 01/14/2024 10:40 AM EDT Office Visit Cardiology at [address] [address] Carmen Castaneda PA [facility] [place] [address] Scheduled Procedures Name Priority Associated Diagnoses Date/Ti me TRANSESOPHAGEAL ECHO DURING CATH/EP PROCEDURE Paroxysmal atrial fibrillation 12/29/2023 7:30 AM EDT documented as of this encounter Goals Goal Patient Goal Type Associated Problems Recent Progress Patient-Stated? Author [facility] Medication Compliance and Understanding Patient Facing Action Plan No Lani Vargas, [facility] Note: Maintain control of disease for as long as possible as assessed by tumor marker levels and scans in clinic every 3 to 6 months documented as of this encounter Procedures Procedure Name Priority Date/Time Associated Diagnosis Comments HEMOGRAM Routine 10/07/2022 8:19 AM EDT History of ovarian cancer DIFFERENTIAL, AUTOMATED Routine 10/07/2022 8:19 AM EDT History of ovarian cancer CBC (WITH DIFF) Routine 10/07/2022 8:19 AM EDT History of ovarian cancer CANCER ANTIGEN 125 Routine 10/07/2022 8: 19 AM EDT History of ovarian cancer COMPREHENSIVE METABOLIC PANEL Routine 10/07/2022 8:19 AM EDT History of ovarian cancer documented in this encounter Results * Differential, Automated (10/07/2022 8:19 AM EDT) Neutrophil % 64.8 % [facility] Neutrophil Absolute 4.14 1.70 - 6.10 x10(3)/mcL [facility] Lymph % 20.8 % [facility] Lymphocytes Abs 1.3 0.9 - 3.2 x10(3)/[facility] Monocyte % 8.3 % [facility] Monocyte Abs 0.5 0.3 - 0.9 x10(3)/[facility] Eos % 4.5 % [facility] Eosinophils Abs 0.3 0.0 - 0.4 x10(3)/[facility] Basophil % 1.3 % [facility] Baso Absolute 0.1 0.0 - 0.1 x10(3)/[facility] Immature Gran % 0.30 % [facility] Comment: Immature granulocytes(IG's)percentage and absolute count will include metamyelocytes, myelocytes, and promyelocytes. Blood smears from CBCs yielding IG's will be scanned manually for concordance. If this scan disagrees with the automated IG or if promyelocytes are noted, a manual differential will be performed. Immature Gran Absolute 0.02 0.00 - 0.04 x10(3)/[facility] Blood 10/07/2022 8:19 AM EDT 10/07/2022 8:28 AM EDT Narrative Resulting Agency Comment Spec In Lab Gabriela Singh MD HEMATOLOGY ORDERAB LES [facility] [place] [address] * (ABNORMAL) Hemogram (10/07/2022 8:19 AM EDT) White Blood Cell 6.4 4.0 - 9.5 x10(3)/mc L [facility] Red Blood Cell 4.02 4.00 - 5.21 x10(6)/mc L [facility] Hemoglobin 15.0 11.7 - 15.5 g/dL [facility] Hematocrit 42.3 35.7 - 45.8 % [facility] Mean Cell Volume 105.2(H) 82.6 - 94.4 fL [facility] Mean Cell Hemoglobin 37.3(H) 27.1 - 32.0 pg [facility] Mean Cell Hemoglobin Concentration 35.5(H) 31.7 - 35.0 g/dL [facility] Platelet 218 145 - 357 x10(3)/mc L [facility] RDW Standard Deviation 45.8 37.0 - 46.0 fL [facility] RDW coefficient of variation 11.8 11.5 - 14.1 % [facility] Mean Platelet Volume 8.9 7.6 - 12.9 fL [facility] NRBC% auto 0.0 % [facility] NRBC Absolute 0.000 0.000 - 0.000 x10(3)/mc L [facility] Blood 10/07/2022 8:19 AM EDT 10/07/2022 8:28 AM EDT Narrative Resulting Agency Comment Spec In Lab Gabriela Singh MD HEMATOLOGY ORDERAB LES Performing Organization Address [facility] Co de Phone Number [facility] [place] [address] * Cancer Antigen 125 (10/07/2022 8:19 AM EDT) CA 125 10.9 <=38.1 unit/mL [facility] Comment: CA 125 Reference Interval ??Postmenopausal: 6.2 to 31.5 U/mL. ??Premenopausal: 6.9 to 45.9 U/mL. ??Pre and Postmenopausal subjects combined: 6.4 to 38.1 U/mL. This result was generated using a Elo Elizabeth immunoassay. ??Results obtained from other methods or manufacturers cannot be used interchangeably with this method. Blood 10/07/2022 8:19 AM EDT 10/07/2022 8:28 AM EDT Narrative Resulting Agency Comment Spec In Lab Gabriela Singh MD CHEMISTRY ORDERABL ES Performing Organization Address [facility] [place] [address] * (ABNORMAL) Comprehensive metabolic panel (non-fasting) (10/07/2022 8:19 AM EDT) Glucose 62(L) 65 - 199 mg/dL [facility] Comment:Diabetes: >=200 mg/d L plus symptoms Blood Urea Nitrogen 13 8 - 18 mg/dL [facility] Creatinine 0.80 0.70 - 1.20 mg/dL [facility] Sodium 139 135 - 145 mmol/L [facility] Potassium 4.5 3.5 - 5.0 mmol/L [facility] Comment: Please note: ??Patients with WBC >100,000 may have falsely elevated Potassium levels. ??For accurate Potassium quantification in these patients send serum separator tube (gold top) for subsequent determinations. ??Contact the Clinical Chemistry Laboratory if there are any questions. Chloride 103 98 - 107 mmol/L [facility] Carbon Dioxide 26 22 - 31 mmol/L [facility] Anion Gap 10 5 - 15 mmol/L [facility] Calcium 10.2 8.5 - 10.5 mg/dL [facility] Protein, Total 7.5 6.1 - 8.0 g/dL [facility] Albumin 4.7 3.2 - 5.2 g/dL [facility] Aspartate Aminotransferase 25 0 - 30 unit/L [facility] Alanine Aminotransferase 21 0 - 30 unit/L [facility] Alkaline Phosphatase 113(H) 35 - 105 unit/L [facility] Bilirubin, Total 0.9 0.2 - 1.3 mg/dL [facility] Est Glomerular Filtration Rate 83 >=60 mL/min/1. 73 m?? [facility] Comment: This patient's estimated GFR [...] and symptoms in addition to eGFR. Blood 10/07/2022 8:19 AM EDT 10/07/2022 8:27 AM EDT Narrative Resulting Agency Comment Spec In Lab Gabriela Singh MD CHEMISTRY ORDERABL ES [facility] [place] [address] documented in this encounter Visit Diagnoses Diagnosis History of ovarian cancer Personal history of malignant neoplasm of ovary Paroxysmal atrial fibrillation Atrial fibrillation Paroxysmal atrial fibrillation Atrial fibrillation documented in this encounter Care Teams Retail Sales Consultant Relationship Specialty Start Date End Date Evelyne Hunt APRN [address] [place] [address] PCP - General Internal Medicine 09/23/17 documented as of this encounter
--- OUTSIDE RECORDS SUMMARY | 2023-12-01 02:10 | XMS_ITS | Encounter Summary ---
Author Organization [facility] [place] [address] Care Team Providers Care Paving Machine Operator Name Role Phone Kiki Huntjunaid Daugherty APRN Primary Care Provider [phone] Encounter Details Date Type Department Care Team (Latest Contact Info) Description 03/08/2022 Travel Social History Tobacco Use Types Packs/Day [...] 9:[address] [place] [address] Xavier Malhotra MD [facility] [place] [address] 12/29/2023 Hospital Encounter [place] [phone] Xavier Malhotra MD [facility] [place] [address] Paroxysmal atrial fibrillation 12/29/2023 7:30 AM EDT - 12/29/2023 12:00 PM EDT Surgery [place] [address] Xavier Malhotra MD [facility] [place] [address] ELECTROPHYSIOLOGY PROCEDURE 01/14/2024 10:40 AM EDT Office Visit Cardiology at [address] [phone] Carmen Castaneda PA [facility] [place] [address] Scheduled Procedures Name Priority Associated Diagnoses Date/Ti [...] on filedocumented in this encounter Care Teams Paving Machine Operator Relationship Specialty Start Date End Date Evelyne Hunt APRN [address] [place] [address] PCP - General Internal Medicine 09/23/17 documented as of this encounter
--- OUTSIDE RECORDS SUMMARY | 2023-12-01 02:10 | XMS_ITS | Encounter Summary ---
Author Organization [facility] [place] [address] Care Team Providers Care Salesperson Floor Coverings Name Role Phone Kiki Huntjunaid Daugherty APRN Primary Care Provider [phone] Encounter Details Date Type Department Care Team (Latest Contact Info) Description 03/04/2022 Travel Social History Tobacco Use Types Packs/Day [...] 9:[address] [place] [address] Xavier Malhotra MD [facility] [place] [place] [address] 12/29/2023 Hospital Encounter [place] [phone] Xavier Malhotra MD [facility] [place] [address] Paroxysmal atrial fibrillation 12/29/2023 7:30 AM EDT - 12/29/2023 12:00 PM EDT Surgery [place] [address] Xavier Malhotra MD [facility] [place] [address] ELECTROPHYSIOLOGY PROCEDURE 01/14/2024 10:40 AM EDT Office Visit Cardiology at [address] [phone] Carmen Castaneda PA [facility] [place] [address] Scheduled Procedures Name Priority Associated Diagnoses Date/Ti [...] on filedocumented in this encounter Care Teams Salesperson Floor Coverings Relationship Specialty Start Date End Date Evelyne Hunt APRN [address] [place] [address] PCP - General Internal Medicine 09/23/17 documented as of this encounter
--- OUTSIDE RECORDS SUMMARY | 2023-12-01 02:10 | XMS_ITS | Encounter Summary ---
Author Organization [facility] [place] [address] Care Team Providers Care Radio Equipment Installer Name Role Phone Kiki Huntyce Dat STEVEN Primary Care Provider [phone] Encounter Details Date Type Department Care Team (Latest Contact Info) Description 05/07/2022 Travel Social History Tobacco Use Types Packs/Day [...] 9:[address] [place] [address] Xavier Malhotra MD [facility] [place] [address] 12/29/2023 Hospital Encounter [place] [phone] Xavier Malhotra MD [facility] [place] [place] [address] Paroxysmal atrial fibrillation 12/29/2023 7:30 AM EDT - 12/29/2023 12:00 PM EDT Surgery [place] [address] Xavier Malhotra MD [facility] [place] [address] ELECTROPHYSIOLOGY PROCEDURE 01/14/2024 10:40 AM EDT Office Visit Cardiology at [address] [phone] Carmen Castaneda PA [facility] [place] [address] Scheduled Procedures Name Priority Associated Diagnoses Date/Ti me TRANSESOPHAGEAL ECHO DURING CATH/EP PROCEDURE Paroxysmal atrial fibrillation 12/29/2023 7:30 AM EDT documented as of this encounter Goals Goal Patient Goal Type Associated Problems Recent Progress Patient-Stated? Author [facility] Medication Compliance and Understanding Patient Facing Action Plan No Lani Vargas, [facility] Note: Maintain control of disease for as long as possible as assessed by tumor marker levels and scans in clinic every 3 to 6 months documented as of this encounter Visit Diagnoses Not on filedocumented in this encounter Care Teams Radio Equipment Installer Relationship Specialty Start Date End Date Evelyne Hunt APRN [address] [place] [address] PCP - General Internal Medicine 09/23/17 documented as of this encounter
--- OUTSIDE RECORDS SUMMARY | 2023-12-01 02:11 | XMS_ITS | Encounter Summary ---
Author Organization [facility] Address [facility] Bert cassidy [place] [id number] Care Team Providers Care Sheet Sewer Name Role Phone EdwardEvelyne APRN Primary Care Provider [phone] Reason for Referral * Consultation (Routine) - Closed Specialty Diagnoses / Procedures Referred By Contac t Referred To Contact Diagnoses S/P Efrain Almazan MD [facility] DR CARDIOTHORACIC [place] [address] Cardiac Rehab, [address] [place] [address] Referral ID Status Reason Start Date Expiration Date V isits Requested Visits Authorized [id number] Closed Consult, Test & Treat 02/06/2022 08/05/2022 36 36 * Home Health Care (Routine) - Closed Specialty Diagnoses / Procedures Referred By Contac t Referred To Contact Diagnoses S/P Efrain Almazan MD [facility] C[place]OTH[place] [address] Referral ID Status Reason Start Date Expiration Date V isits Requested Visits Authorized [id number] Closed Consult, Test & Treat 02/06/2022 08/05/2022 999 999 Reason for Visit * Auth/Cert Specialty Diagnoses / Procedures Referred By Marcel t Referred To Contact Diagnoses Aortic stenosis Other nonrheumatic mitral valve disorders , RICHELLE Procedures PRO REPLACEMENT PROSTHETIC AORTIC VALVE OPEN W CARDIOPULMONARY BYPASS HOMOGRF/STENT PRO FABRIZIO VENT [facility] FOR IHSS @REPLACE AORTIC VALVE, OPEN, W\CPB, W\PROSTHETIC VALVE (WRVU 41.32) @VENTRICULOMYOTOMY (-MYECTOMY) FOR IDIOPATHIC HYPERTROPHIC SUBAORTIC STENOSIS (WRVU 36.56) Efrain Bah MD [facility] [place]OTHOR[place] [address] [facility] [[email or web address]] Referral ID Status Reason Start Date Expiration Date Visits Re quested Visits Authorized [id number] 1 1 Encounter Details Date Type Department Care Team (Latest Contact Info) Description 01/29/2022 5:37 AM EDT - 02/06/2022 11:10 AM EDT Hospital Encounter Intermediate [place] [id number] Efrain Bah MD [facility] DR CARDIOTHORACIC [place] [address] Aortic valve stenosis, etiology of cardiac valve disease unspecified; Systolic anterior movement of mitral valve; S/P AVR Discharge Disposition: Home with VNA Social History Tobacco Use Types Packs/Day Years [...] Sign Reading Time Taken Comments Blood Pressure 146/89 02/06/2022 8:24 AM EDT Pulse 66 02/06/2022 8:24 AM EDT Temperature 37 ??C (98.6 ??F) 02/06/2022 8:24 AM EDT Respiratory Rate 18 02/06/2022 8:24 AM EDT Oxygen Saturation 97% 02/06/2022 8:24 AM EDT Inhaled Oxygen Concentration - - Weight 63.2 kg (139 lb 4.8 oz) 02/05/2022 5:52 A M EDT Height 166.4 cm (5' 5.5) 01/29/2022 6:12 AM EDT Body Mass Index 22.83 01/29/2022 6:12 AM EDT documented in this encounter Discharge Summaries * Efrain Bah MD - 02/06/2022 9:48 AM EDT Inpatient - Discharge Summary Patient Name: Mark Waller Patient Age: 61 y.o. Birthdate: 1960 Language: Honduran Race: White Ethnicity: Not nor Admit Date: 01/29/2022 Discharge Date: 02/07/2022 Attending Physician: Efrain Bah MD Follow-up Recommendations for Providers: ??? Please continue routine management of cardiovascular risk factors including blood pressure, lipids, glucose, etc. ??? Please note any changes to medications. ??? Patient to follow up with PCP, Evelyne Hunt APRN, in 1-2 weeks. ??? Patient to follow up with Cardiac Surgeon, Dr. Efrain Bah, with a chest x-ray, EKG, and Echo. ??? Coumadin management arranged with PCP, Evelyne Hunt APRN, to start tomorrow 02/07 Inpatient Provider Contact Information: [facility] Section of Cardiac Surgery [facility] [address] FAX [phone] Discharge Diagnoses (Hospital Problems) Primary Diagnoses: Aortic Stenosis with septal hypertrophy Secondary Diagnoses: Postoperative atrial fibrillation Active Hospital Problems Diagnosis ??? (aortic stenosis) Resolved Hospital Problems No resolved problems to display. Other Diagnoses (Chronic Problems): Active Non-Hospital Problems Diagnosis ??? BRCA negative ??? Ovarian cancer, lateral, stage IIIb high-grade serous/endometrioid, 07/20/2019 s/p FREDI/BSO/oment/PPALND/RSReanstomosis ??? HTN (hypertension) ??? Aortic valve stenosis ??? Chest pain ??? SVT (supraventricular tachycardia) ??? Bicuspid aortic valve ??? Hypothyroidism Discharged to: Patient discharged to home Functional and Cognitive Status: stable Discharge Conditions/Prognosis: improved Past Medical History: Diagnosis Date ??? Allergic [...] IR Mediport Placement 08/20/2019 Jourdan Lopez PA [facility] INTERVENTIONL RAD ??? IR MEDIPORT REMOVAL 10/04/2020 IR Mediport Removal 10/04/2020 Mahesh Wick MD [facility] INTERVENTIONL RAD ? ? PRG CATH PLMO CORONARY ART W/INJ FOR ANGIO W/R HEART CATH IMG S&I N/A 12/17/2021 CORONARY ANGIOGRAPHY; W RHC performed by Cristóbal Cuevas MD at [facility] CATH LABS ??? PRO GINA SALP-OOPH W/OMENTECT, FREDI, RAD DISSECT N/A 07/20/2019 @HYSTERECTOMY, FREDI, BSO, DEBULKING (WRVU 34.13) performed by Natalie Vallejo MD at [facility] MAIN OR ??? PRO COLONOSCOPY, REMV LESN, SNARE N/A 05/01/2021 COLONOSCOPY, POLYPECTOMY, REMOVAL LESION BY SNARE (WRVU 4.67) performed by Arlin Agudelo MDat [facility] ENDOSCOPY ??? PRO REPLACEMENT PROSTHETIC AORTIC VALVE OPEN W CARDIOPULMONARY BYPASS HOMOGRF/STENT N/A 01/29/2022 @REPLACE AORTIC VALVE, OPEN, W\CPB, W\PROSTHETIC VALVE (WRVU 41.32) performed by Efrain Bah MD at [facility] MAIN OR ??? PRO FABRIZIO VENT [facility] FOR IHSS N/A 01/29/2022 @VENTRICULOMYOTOMY (-MYECTOMY) FOR IDIOPATHIC HYPERTROPHIC SUBAORTIC STENOSIS (WRVU 36.56) performed by Efrain Bah MD at [facility] MAIN OR Prior To Admission Medications Medications Prior to Admission Medication Sig Dispense Refill Last Dose ??? [DISCONTINUED] chlorhexidine (HIBICLENS) 4 % Liquid Apply topically daily as needed. Shower from head to toe with Chlorhexidine the night before surgery . 120 mL 0 01/29/2022 at Unknown time ??? atorvastatin (Lipitor) 10 mg Tablet Take 10 mg by mouth daily. 01/29/2022 at 0400 ??? dilTIAZem CD (Cardizem CD) 120 mg Capsule, Sust. Release 24 hr Take 360 mg by mouth daily. 01/29/2022 at 0400 ??? metoprolol succinate XL (Toprol-XL) 25 mg Tablet Sustained Release 24 hr Take 1 tablet by mouthdaily. 90 tablet 2 01/28/2022 at Unknown time ??? niraparib (Zejula) 100 mg capsule Take 1 capsule (100 mg) by mouth daily. 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 30 capsule 11 Past Month at Unknown time ??? buPROPion XL (Wellbutrin XL) 300 mg Tablet Extended Release 24 hr TK 1 T PO QAM 01/29/2022 at 0400 ??? ergocalciferol, vitamin D2, (VITAMIN D ORAL) Take by mouth daily. Past Month at Unknown time ??? atorvastatin (Lipitor) 40 mg Tablet atorvastatin 40 mg tablet Unknown Updated Allergies/ADRs: Allergies Allergen Reactions ??? Paroxetine ??? Penicillins [...] 30-60 mins. Was able to complete drug. History of Presentation: 61 yo female who has been followed for a period of time with progressive aortic stenosis. ??Her most recent echo shows LVEF 75%, mean gradient of 49 mmHg, moderate AI. ??She also has some RICHELLE with mild to moderate LVOT gradients. ??She has noted increasing fatigue, dyspnea and lightheadedness. ??She also has a history of SVT and tried to undergo ablation, but they could not induce the arrhythmia.??Cardiac cath shows fairly normal PAP and no CAD. Major Procedures/Operations: 01/29/22 AVR (23 INSPIRIS), LV MYECTOMY, TON Hospital Course: s/p AVR and Septal Myectomy Mark Waller was admitted to [facility] on 01[facility]29/2022 via the Same DayProgram. She was brought to the operating room where Dr. Efrain Bah performed a tissue aortic valve replacement with septal myectomy. She tolerated the procedure and was brought to the Cardiovascular Intensive Care Unit for recovery. She initially required the pharmacologic support of intravenous vasopressin and levophed. She was extubated from the ventilator on the day of surgery. All drips were weaned to off. Routine postoperative and home medications were started. Aspirin 81mgdaily was started. Statin therapy was continued. She was continued on beta blockade and this was optimized. Diuretics were started and she responded appropriately. She was near euvolemic by discharge. Coumadin was started for postop pAF (see below). She was transferred to the Intermediate Cardiac Care Unit for continued rehabilitation. All tubes, lines, and epicardial pacing wires were removed without incident. She voided normally after her Wong was removed. She was seen by Physical Therapy and Cardiac Rehabilitation. Sternal precaution education was provided. She had walked 5 minutes and gone up and down stairs. She was tolerating a regular diet and had a bowel movement. Pain was controlled on oral medications. Postoperative course was complicated by the following: [...] NSR for >48hrs prior to disch arge. The remainder of the her hospital course was uneventful and by postoperative day #8 she had met allcriteria for discharge. Her discharge plan at this time is to home with . Vital Signs at Discharge: Last set of vitals: BP 146/89 (BP Location (NBP): Left arm, Patient Position: Sitting) Pulse 66 Temp 37 ??C (98.6 ??F) (Oral) Resp 18 Ht 166.4 cm (5' 5.5) Wt 63.2 kg (139 lb 4.8 oz) FrS053% BMI 22.83 kg/m?? Patient Vitals for the past 168 hrs: Weight 02/05/22 0552 63.2 kg (139 lb 4.8 oz) 02/04/22 0649 64.5 kg (142 lb 3.2 oz) 02/03/22 0526 63.9 kg (140 lb 12.8 oz) 02/02/22 0431 64.1 kg (141 lb 5 oz) 02/01/22 0332 63.4 kg (139 lb 12.4 oz) 01/31/22 0513 64.9 kg (143 lb) Current weight: 63.2 kg Admit/Preop weight: 61.1 kg Pertinent physical exam findings prior to discharge: General: Sitting in bed. No distress Neuro: A&Ox4. Moves all extremities without focal deficit. Lungs: Non-labored respirations on room air Heart: regular rate and rhythm. No murmur, gallop, rub Abdomen: Soft, nontender Ext: WWP, no edema Incisions: clean, dry, intact without erythema, CT sutures remain Important Studies and Lab Data: Lab Results Component Value Date WBC 8.9 02/01/2022 RBC 2.53 (L) 02/01/2022 HGB 9.6 (L) 02/01/2022 HCT 27.4 (L) 02/01/2022 PLATELET 145 02/01/2022 Recent Labs 02/06/22 0345 INR 2.3 Lab Results Component Value Date NA 136 02/01/2022 K 3.6 02/06/2022 CL 103 02/01/2022 CO2 24 02/01/2022 BUN 10 02/01/2022 CREATININE 0.64 (L) 02/01/2022 Pending Studies and Lab Data: INR tomorrow Immunizations Given this Hospitalization: Immunization History Administered Date(s) Administered ??? Influenza Vaccine (Novel) [id number], Injectable 04/06/2009 Smoking Status at Discharge: Social History Tobacco Use Smoking Status Former Smoker ??? Quit date: 07/12/1977 ??? Years since quittin.6 Smokeless Tobacco Never Used STS Data Medications: Pre-operative beta jessa? Given Discharge beta jessa? Given Discharge lipid therapy? Given Discharge anti-platelet therapy? Given Discharge IRENA or ARB restarted? Not indicated Discharge Medications: Your Medications New Medications Dose Details acetaminophen 500 mg Tab Commonly known as: Tylenol Take 2 tablets by mouth every 6 hours as needed for Pain. 1,000 mg Quantity: 30 tablet Refills: 1 AMIOdarone 400 mg Tab Commonly known as: PACERONE Take 1 tablet by mouth daily for 30 days. Start taking on: February 07, 2022 400 mg Quantity: 30 tablet Refills: 0 aspirin 81 mg Chew Take 81 mg by mouth daily for 90 days. Start taking on: February 07, 2022 81 mg Quantity: 30 tablet Refills: 2 clindamycin 300 mg Cap Commonly known as: CLEOCIN Take 2 capsules by mouth as needed (dental procedures). Take 1 hour prior to dental procedures 600 mg Quantity: 2 capsule Refills: 0 metoproloL tartrate 25 mg Tab Commonly known as: Lopressor Take 1 tablet by mouth 2 times daily for 90 days. 25 mg Quantity: 60 tablet Refills: 2 warfarin 2.5 mg Tab Commonly known as: Coumadin Take as instructed by your PCP Start taking on: February 07, 2022 Quantity: 30 tablet Refills: 0 Continued medications with new dosing Dose Details atorvastatin 10 mg Tab Commonly known as: Lipitor Take 10 mg by mouth daily. What changed: Another medication with the same name was removed. Continue taking this medication, and follow the directions you see here. 10 mg Refills: 0 Continued medications, unchanged Dose Details buPROPion XL 300 mg Tablet Extended Release 24 hr Commonly known as: Wellbutrin XL TK 1 T PO QAM Refills: 0 niraparib 100 mg capsule Commonly known as: Zejula Take 1 capsule (100 mg) by mouth daily. 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 100 mg Quantity: 30 capsule Refills: 11 STOPPED Medications chlorhexidine 4 % Liqd Commonly known as: HIBICLENS dilTIAZem CD 120 mg Cp24 Commonly known as: Cardizem CD metoprolol succinate XL 25 mg Tablet sr Commonly known as: Toprol-XL VITAMIN D ORAL Anticoagulation (???Blood Thinner?? ) Management upon Discharge: 1. Reason for anticoagulation therapy: postop atrial fibrillation 2. Your warfarin (Coumadin??) dosing instruction upon discharge is: (Follow this schedule below until your first INR check after discharge (usually in 2- 4 days): ??? Day of discharge (day #1): Hold ??? Day #2: Pending INR 3. Follow up INR is scheduled on: Tomorrow 02/07/22 4. INR Goal: 2.0-3.0 5. Expected duration of treatment: 1 month 6. Provider/Team responsible for ongoing outpatient anticoagulation management: ??? Provider/Team/Clinic: Office of Evelyne Hunt APRN ??? 7. If you have not received a call from your provider within 24 hrs of having your INR drawn, please call your outpatient provider for further dose instructions. 8. Warfarin (Coumadin??) should be taken at the same time every day, preferably after 5:00 pm. 9. Please review your Warfarin (Coumadin??) Pack upon discharge. 10. If you will be on Warfarin (Coumadin??) indefinitely you should carry an identification card orwear a medical alert bracelet stating that you take Warfarin (Coumadin??). 11. Warfarin Education that was reviewed with you in the hospital: (please see your warfarin (Coumadin) packet for more information) ? Diet and medications can affect your INR ? Maintaining a diet with a consistent amount of vitamin K containing foods is important to keep your INR in range ? Avoid major changes in dietary habits ? Do not take or discontinue any prescription or gihg-osu-eihgstf medications without asking your doctor or pharmacist ? Inform all your doctors, pharmacists and other healthcare providers that you take warfarin (Coumadin??) ? Warfarin (Coumadin??) increases your risk of bleeding ? If you experience any of these signs or symptoms of bleeding or blood clot please seek immediate medical attention: - increased pain, swelling or sudden shortness of breath - severe headache - dizziness - unusual bleeding or bruising - changes in urine or bowel movement color - coughing or spitting up of blood, or nosebleeds that do not stop or occur more often The following table shows your most recent INR results and Warfarin (Coumadin??) doses. Please bring this to your first warfarin INR check appointment after discharge. Recent Labs 02/06/22 0345 02/05/22 0408 02/04/22 1158 INR 2.3 1.2 1.2 Coumadin Hold 5mg 5mg Note: Patient was discharged with 2.5mg tablets. Instructions Given to Patient at Discharge: Cardiac Surgery Discharge Instructions: Call your doctor if: You have a fever of greater than 101 degrees, shaking chills, if you develop redness or drainage from your incision sites, or if you have questions. Please call your surgeon's office if you have any discharge or drainage from your chest incision. Your surgeon, Dr. Efrain Bah and/or the Cardiac Surgery Physician Milk Route Deliverer Team may be reached at . Antibiotic prophylaxis: You will need to take antibiotics prior to many invasive tests and treatments, such as dental cleaning, which should be done every 6 months. Your primary care physician or your dentist can prescribe this medication. A one time prescription has been ordered for you today. Anyfuture refills should go through your PCP or Dentist. Please refer to the card with the [place] [employer] Guidelines for more information. You have been provided with a copy of this card. Please refer to the [place] [employer] Guidelines for more information. Good dental care is important for your overall health. We recommend waiting ~3 months from your surgery date before returning to your dentist except in cases of emergency. Weight: Weigh yourself daily. Please call the office if you notice increasing weight, increasing fluid retention (edema), and/or SOB. Sternal (breast bone) precautions: No lifting greater than 7-10 pounds; no pushing or pulling with upper extremities; no excessive chest stretching for the first 4 weeks. Further instructions will begiven to you at your follow-up appointment. Activity level: Walk three times a day. You should continue to increase your walks by 1-2 minutes each day. It is expected that you will be walking 20-30 minutes twice a day within 3-4 weeks after discharge to home. Rest between activities and after meals. Use common sense, don't exhaust yourself. Biking: You may use a stationary bicycle whenever you are comfortable enough to permit this. Tighten the resistance slightly. Increase the amount of time on the bicycle as you would do for your walks, a minute or two each day. No biking outside until after your return appointment with Dr. Efrain Bah. You may use a [place] or treadmill but avoid any pulling motion with the arms. Home activities: You may do light housework, e.g. dusting, setting the table, washing dishes, preparing a meal. Light carpentry and gardening are allowed. Avoid trying to open tight jars and stuck windows. No vacuuming, mopping, raking, shoveling, digging or hoeing until after your return visit with the surgeon. Sexual activity: You may engage in sexual activity when you feel ready. Use a position that protects your sternum (breastbone). Do not have your partner lie on your chest. Stairs: There are no restrictions on stair climbing. Use common sense. Don't exhaust yourself. Activities outside the home: After the first week home you may go out to dinner, visit friends, go to a movie, go to roman catholic, etc. Heavy activities: No hunting, skiing, jogging, snow shoveling, snowmobiling, lawn mowing, swimming,golf or tennis until after your return appointment with the surgeon. Do not ride motorcycles, ATV'stractors or horses. Avoid the use of a rifle with kickback against the shoulder for six months. Sleep: Try to establish normal sleep patterns. Long naps during the day may make it hard for you tosleep at night. Use the pain medication at bedtime for the first week at home. Smoking: It is very important that you not smoke after surgery. Smoking cessation education was provided as appropriate. If you need further assistance with this please call and you will be referred to a smoking cessation specialist. Medications: Take only those medications listed on your discharge information. Keep your pain undercontrol so you can be active, do your coughing and breathing exercises and sleep. Contact us if thepain medication isn't working for you. Do not take any herbal preparations until after you return to see the surgeon. Diet: You should follow a regular diet until your appetite returns to normal. At that point in timeyou should resume a low fat, low cholesterol, [place] [employer] Diet. Driving: No driving until cleared by your surgeon. Avoid long trips if possible. If you must go on a long trip, stop the car and walk every hour. Shower/Bath: You may shower daily. No baths, soaking, or swimming until cleared by your surgeon. Wound care: Wash your incisions daily with soap and rinse well, pat dry. Assess for any signs of infection such as increased redness, pain, warmth or drainage. Please call your surgeon's office if you have any discharge or drainage from your chest incision. If there is a lot of swelling, apply irena wraps during the day and remove at bedtime. Elevate your legs when you are sitting. MEDICATION REFILL REQUESTS - Please note that Cardiac Surgery will not maintain regular refill requests for your medications as these can change during and after your recovery while being managed by your PCP and/or Manager Analytical. For future medication refills, please refer to your PCP and/or Manager Analytical after your discharge from our service. Thank you REMOVE CHEST TUBE SUTURES ON OR AFTER 02/08/22 Home oxygen therapy: N/A Follow up appointments: ??? You should follow up with your PCP, Evelyne Hunt APRN, in 1-2 weeks. ??? You have an appointment with your Cardiac Surgeon, Dr. Efrain Bah, with a chest x-ray,EKG, and Echo before your appointment. ??? Coumadin management arranged with PCP, Evelyne Hunt APRN, to start tomorrow 02/07 Cardiac Rehabilitation: Mark Waller was seen today regarding participation in the outpatient Phase 2 Cardiac Rehabilitation at [facility]. The patient agrees to a referral to this program. The referral will be sent at discharge and the patient should be contacted by the Program within 1- 2 weeks from discharge. Future Appointments and Orders Future Appointments and Orders Future Appointments Provider Department Dept Phone 03/04/2022 1:20 PM Mandeep Franco MD Cardiology at [facility] Arrive at: [facility] [phone] 03/08/2022 10:15 AM [facility] DX ROOM 2 XRay at [facility] Arrive at: [facility] [phone] Please go to [facility] 3T ([place] Location). 03/08/2022 11:00 AM ECHO REGULAR Non-Invasive Cardiology Lab [facility] Arrive at: [facility] [phone] 03/08/2022 11:40 AM Efrain Bah MD Cardiac Surgery at [facility] Arrive at: [facility] [phone] 03/26/2022 3:15 PM Haresh Erwin MD Dermatology at [place] Arrive at: [facility] [address] [phone] Future Orders Complete By Expires Referral to Cardiac Rehab [[id number] Custom] As directed Process Instructions: If no progress note charted, please enter Clinical details in comments. Scheduling Instructions: Questions: My question or request is: s/p AVR. Cardiac rehab at [facility]. Referral to Home Health [REF34 Custom] As directed Process Instructions: If no progress note charted, please enter Clinical details in comments. Scheduling Instructions: Comments: Please evaluate Mark Waller for admission to Home Health. [address] [facility] [address] (home) Date of : 1960 Inpatient DOCUMENTATION FOR VNA SERVICES (INCLUDING THOSE PATIENTS WITH MEDICARE COVERAGE REQUIRINGHOME VNA SERVICES AND/OR HOSPICE SERVICES) PATIENT'S LOCATION: Mark Waller [address] [facility] [address] (home) Cell: Telephone Information: Certified Nurse Operating Room's Name: Self In discussion with the attending physician, it is certified that this patient is under their care and that they, or a Nurse Practitioner,Clinical Nurse specialist or Physician Milk Route Deliverer who is working directly with them, had a face to face encounter that meets the physician face to face encounter requirements with this patient on 02/06/2022 The encounter with the patient was in whole, or in part, for the following medical condition, whichis the primary reason for home health care services: s/p AVR, septal myectomy In discussion with the provider, it is certified that, based on their findings, the following services are medically necessary for home health services. To provide the following care/treatments with the clinical findings supporting the need for services as follows: HOME CARE ORDERS: RN ORDERS:Assess wound or incision, vital signs, cardiopulmonary status, nutrition, hydration, elimination, meds effectiveness and management; reinforce education re health issues PT ORDERS: Continue rehab for endurance, gait stability and strength with mobility and transfers. Home safety evaluation. Home exercise program if appropriate. INR: Please get INR tomorrow 02/07/22 Provider/Team/Clinic: Office of Evelyen Hunt APRN HOME HEALTH CARE AGENCY: [facility] [address] [address] Start of care: 24 to 48 hours. FOR MEDICARE ONLY: (please delete this section if not Medicare) In discussion with the attending physician, it is certified that the clinical findings support thatthis patient is homebound because absences from home require considerable and taxing effort due to:Patient is unable to leave home without assistance and ambulation is severely limited by pain, decreased strength and/or endurance. Please note that any additional orders needs or changes will need to be obtained from this patient's PCP: Evelyne Hunt APRN [address] [facility] / [facility] [address] All VNA agencies which cover the area of patient's residence have been reviewed, either verbally katia writing, and patient/family have chosen the home health care agency noted Questions: Disciplines Requested: Nursing Physical Therapy Arrangements for VNA/home care: As above. VN RN OR PCP TO PLEASE REMOVE CHEST TUBE SUTURES ON OR AFTER 02/08/22. Signed: Sahra Britton PA-C [facility] Section of Cardiac Surgery [facility] [place] [id number] FAX [phone] Date: 02/06/2022 CC: TENISHA Camp Joyce A, APRN [address] [place] [address] documented in this encounter Discharge Instructions * Patient Instructions* Sahra Britton PA - 02/06/2022 9:36 AM EDT Instructions Given to Patient at Discharge: Cardiac Surgery Discharge Instructions: Call your doctor if: You have a fever of greater than 101 degrees, shaking chills, if you develop redness or drainage from your incision sites, or if you have questions. Please call your surgeon's office if you have any discharge or drainage from your chest incision. Your surgeon, Dr. Efrain Bah and/or the Cardiac Surgery Physician Milk Route Deliverer Team may be reached at . Antibiotic prophylaxis: You will need to take antibiotics prior to many invasive tests and treatments, such as dental cleaning, which should be done every 6 months. Your primary care physician or your dentist can prescribe this medication. A one time prescription has been ordered for you today. Anyfuture refills should go through your PCP or Dentist. Please refer to the card with the [place] [employer] Guidelines for more information. You have been provided with a copy of this card. Please refer to the [place] [employer] Guidelines for more information. Good dental care is important for your overall health. We recommend waiting ~3 months from your surgery date before returning to your dentist except in cases of emergency. Weight: Weigh yourself daily. Please call the office if you notice increasing weight, increasing fluid retention (edema), and/or SOB. Sternal (breast bone) precautions: No lifting greater than 7-10 pounds; no pushing or pulling with upper extremities; no excessive chest stretching for the first 4 weeks. Further instructions will begiven to you at your follow-up appointment. Activity level: Walk three times a day. You should continue to increase your walks by 1-2 minutes each day. It is expected that you will be walking 20-30 minutes twice a day within 3-4 weeks after discharge to home. Rest between activities and after meals. Use common sense, don't exhaust yourself. Biking: You may use a stationary bicycle whenever you are comfortable enough to permit this. Tighten the resistance slightly. Increase the amount of time on the bicycle as you would do for your walks, a minute or two each day. No biking outside until after your return appointment with Dr. Efrain Bah. You may use a [place] or treadmill but avoid any pulling motion with the arms. Home activities: You may do light housework, e.g. dusting, setting the table, washing dishes, preparing a meal. Light carpentry and gardening are allowed. Avoid trying to open tight jars and stuck windows. No vacuuming, mopping, raking, shoveling, digging or hoeing until after your return visit with the surgeon. Sexual activity: You may engage in sexual activity when you feel ready. Use a position that protects your sternum (breastbone). Do not have your partner lie on your chest. Stairs: There are no restrictions on stair climbing. Use common sense. Don't exhaust yourself. Activities outside the home: After the first week home you may go out to dinner, visit friends, go to a movie, go to roman catholic, etc. Heavy activities: No hunting, skiing, jogging, snow shoveling, snowmobiling, lawn mowing, swimming,golf or tennis until after your return appointment with the surgeon. Do not ride motorcycles, ATV'stractors or horses. Avoid the use of a rifle with kickback against the shoulder for six months. Sleep: Try to establish normal sleep patterns. Long naps during the day may make it hard for you tosleep at night. Use the pain medication at bedtime for the first week at home. Smoking: It is very important that you not smoke after surgery. Smoking cessation education was provided as appropriate. If you need further assistance with this please call and you will be referred to a smoking cessation specialist. Medications: Take only those medications listed on your discharge information. Keep your pain undercontrol so you can be active, do your coughing and breathing exercises and sleep. Contact us if thepain medication isn't working for you. Do not take any herbal preparations until after you return to see the surgeon. Diet: You should follow a regular diet until your appetite returns to normal. At that point in timeyou should resume a low fat, low cholesterol, [place] [employer] Diet. Driving: No driving until cleared by your surgeon. Avoid long trips if possible. If you must go on a long trip, stop the car and walk every hour. Shower/Bath: You may shower daily. No baths, soaking, or swimming until cleared by your surgeon. Wound care: Wash your incisions daily with soap and rinse well, pat dry. Assess for any signs of infection such as increased redness, pain, warmth or drainage. Please call your surgeon's office if you have any discharge or drainage from your chest incision. If there is a lot of swelling, apply irena wraps during the day and remove at bedtime. Elevate your legs when you are sitting. MEDICATION REFILL REQUESTS - Please note that Cardiac Surgery will not maintain regular refill requests for your medications as these can change during and after your recovery while being managed by your PCP and/or Manager Analytical. For future medication refills, please refer to your PCP and/or Manager Analytical after your discharge from our service. Thank you REMOVE CHEST TUBE SUTURES ON OR AFTER 02/08/22 Home oxygen therapy: N/A Follow up appointments: You should follow up with your PCP, Evelyne Hunt APRN, in 1-2 weeks. You have an appointment with your Cardiac Surgeon, Dr. Efrain Bah, with a chest x-ray, EKG, and Echo before your appointment. Coumadin management arranged with PCP, Evelyne Hunt APRN, to start tomorrow 02/07 Cardiac Rehabilitation: Mark Eber Waller was seen today regarding participation in the outpatient Phase 2 Cardiac Rehabilitation at [facility]. The patient agrees to a referral to this program. The referral will be sent at discharge and the patient should be contacted by the Program within 1- 2 weeks from discharge. documented in this encounter Medications at Time of Discharge Medication Sig Dispensed Refills Start Date End Date atorvastatin (Lipitor) 10 mg Tablet Take 10 mg by mouth daily. 11/24/2021 buPROPion XL (Wellbutrin XL) 300 mg Tablet Extended Release 24 hr TK 1 T PO QAM 10/01/2019 AMIOdarone (PACERONE) 400 mg Tablet Take 1 [...] 90 days. 60 tablet 2 02/06/2022 05/07/2022 warfarin (Coumadin) 2.5 mg Tablet Take as instructed by your PCP 30 tablet 02/07/2022 03/04/2022 clindamycin (CLEOCIN) 300 mg Capsule Take 2 capsules by mouth as needed (dental procedures). Take 1 hour prior to dental procedures 2 capsule 02/06/2022 02/13/2023 niraparib (Zejula) 100 mg capsuleIndications:ep ithelial ovarian cancer Take 1 capsule (100 mg) by mouth daily. 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 30 capsule 11 04/24/2021 05/02/2022 documented as of this encounter Progress Notes * Sahra Britton PA - 02/06/2022 9:06 AM EDT Cardiac Surgery Progress Note Mark Waller is a 61 y.o. 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 Denies pain, SOB, dizziness. ToleratingPO diet, moving bowels. O: Temp: [36.5 ??C (97.7 ??F)-37 ??C (98.6 ??F)] Heart Rate: [59-74] Resp: [16-18] BP: (112-161)/(63-90) SpO2: [94 %-99 %] Heart Rate from SpO2: [66 bpm] 02/05 0701 - 02/06 0700 In: 700 [P.O.:700] Out: 0 Admit weight: 61.14 kg Current weight: Weight: (scale unavailable) Physical Exam: General: Sitting in bed. No distress Neuro: A&Ox4. Moves all extremities without focal deficit. Lungs: Non-labored respirations on room air Heart: regular rate and rhythm. No murmur, gallop, rub Abdomen: Soft, nontender Ext: WWP, no edema Incisions: JUAN CDI T/L/D/W: PIV Assessment/Plan: 61 y.o. female 8 Days Post-Op tissue AVR, LV myectomy. Recovering as expected. Postop atrial fibrillation as a complication of surgery, hx SVT. Amio PO 400mg daily Metoprolol 25 BID Stop Hydrocortisone Coumadin for poAF Ambulate Neuro: tylenol, received toradol x 5 doses, oxy prn, wellbutrin 300 CV: metop 25 bid, lipitor 10, amio 400 qd PO Pulm: RA, db/is, pulm hygiene GI: regular diet, protonix, rbos : no issues Renal: k prn, no lasix Heme: asa, coumadin, home Zejula ID: no issues Endo: no dm hx. Hydrocortisone course complete Dispo: iccu, full code Discussed with attending surgeon on rounds this morning. RENU Kohli 02/06/2022 Between the hours of 1800 - 0600 and on the weekends please page [phone]. * Sahra Britton PA - 02/05/2022 8:47 AM EDT Cardiac Surgery Progress Note Mark Waller is a 61 y.o. 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 Best she has felt so far postop. Denies pain, SOB, nausea. O: Temp: [36.6 ??C (97.9 ??F)-36.8 ??C (98.3 ??F)] Heart Rate: [60] Resp: [16-18] BP: (132-158)/(77-104) SpO2: [93 %-97 %] Heart Rate from SpO2: [61 bpm-65 bpm] No intake/output data recorded. Admit weight: 61.14 kg Current weight: Weight: 63.2 kg (139 lb 4.8 oz) Physical Exam: General: Sitting in bed. No distress Neuro: A&Ox4. Moves all extremities without focal deficit. Lungs: Non-labored respirations on room air Heart: regular rate and rhythm. No murmur, gallop, rub Abdomen: Soft, nontender Ext: WWP, no edema Incisions: JUAN CDI T/L/D/W: PIV Assessment/Plan: 61 y.o. female 7 Days Post-Op tissue AVR, LV myectomy. Recovering as expected. Postop atrial fibrillation as a complication of surgery, hx SVT. Resume home Zejula Amio PO 400mg daily Cont metoprolol 25 TID Hydrocortisone wean to 25mg Q8hrs Coumadin for poAF Ambulate Neuro: tylenol, received toradol x 5 doses, oxy prn, wellbutrin 300 CV: metop 25 tid, lipitor 10, amio 400 qd PO Pulm: RA, db/is, pulm hygiene GI: regular diet, protonix, rbos : no issues Renal: k prn, no lasix Heme: asa, coumadin, resume home Zejula ID: no issues Endo: no dm hx. hydrocortisone 25 IV q8hrs Dispo: iccu, full code Discussed with attending surgeon on rounds this morning. RENU Kohli 02/05/2022 Between the hours of 1800 - 0600 and on the weekends please page [phone]. * Maddie Hernandez, PT - 02/04/2022 4:53 PM EDT Physical Therapy Note Treatment Number PT: 2 Patient profile: Mark Waller is a 61 y.o. 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 24h Events: pAF overnight, received 150mg IV bolus for HR 120s Metoprolol 25 TID Ongoing steroid therapy ?? Social History: Pt lives with her in a 1 level home with 3 steps to etner. 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 ?? Precautions/Special Considerations: STERNAL PRECAUTIONS (No pushing, pulling or lifting >8-10lbs) ?? Mobility and Positioning Recommendations: ?? Ambulate 3-4x/daily with nursing with 1 assist, no device ?? OOB in chair for all meals ?? Subjective: This was helpful. Objective: Patient seen for physical therapy and demonstrated the following: Pain: denies pain Mental Status: alert, oriented, appropriate Vital Signs: SpO2: 96% HR: 70-80 NSR BP:175/86 post walk (nurse aware) ?? Exercises: reviewed post-op stretching and breathing exs; pt able to complete exs with good quality; IS to 1500, good cough, clear ?? Pt able to transfers supine<>sit without difficulty; she does also have a recliner for home (electric) ?? Pt stood with supervision. Ambu;ated about 300 ft on level without device with good brandon and arm swing and posture. ?? Pt ascended and descended a flight of stairs without difficulty. ?? Pt left sitting EOB, visiting with family. Education: reviewed precautions and rationale, reviewed post-op stretched and DB and coughing technique.Discussed walking as best rehab exercise . Assessment: Mark Waller was seen today for physical therapy treatment session for continuation of POC. Pt weaned from O2 , pain well controlled, mobilizing well on level and stairs and is cleared for d/c from a PT standpoint. Pt has clear understanding of precautions and is able to abide thenfunctionally. Vitals stable throughout, (nurse aware of HTN) Pt should follow-up with outpt cardiacrehab as outpt. Anticipated Discharge Disposition (PT): home with supervision ( home with pt) Consult Recommendations: No other consults recommended at this time. Anticipated Equipment Needs at Discharge (PT): None Goals to be achieved by 02/03/22. ?? 1. Pt will perform supine to sit transfers with supervision to/from flat bed, log roll technique with assist of family. 2. Pt will perform sit><stand transfers with supervision with no device 3. Pt will perform bed to chair transfers with supervision with no device 4. Pt will ambulate at least 160' with supervision with no device. 5. Pt will perform a flight stairs with rail, LRAD and supervision. ?? Plan: Therapy Frequency (PT): Monitor as outlined in initial evaluation. Patient agrees with plan as stated. Time IN / OUT:4509-7783 Total Minutes, Physical Therapy: 28 Billing Code: [id number] MADDIE HERNANDEZ PT Pager: [phone] Physical Therapy Inpatient Rehabilitation Department * Addis Braxton - 02/04/2022 3:25 PM EDTSummary: Advanced Directives Spoke with Ivana regarding advanced directives. Ivana asked if she could look over them and return them to me. I let her know I would follow up tomorrow to see if she had any questions regarding the completion of the advanced directives. * Sahra Britton PA - 02/04/2022 1:38 PM EDT Cardiac Surgery Progress Note Mark J Bertolini is a 61 y.o. 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 Fearful of heart arrhythmias returning as she experiences palpitations when in AF. Denies pain, SOB dizziness. O: Temp: [36.6 ??C (97.9 ??F)-37.1 ??C (98.8 ??F)] Heart Rate: [63-122] Resp: [16-18] BP: (122-157)/(69-106) SpO2: [94 %-96 %] Heart Rate from SpO2: [64 bpm-122 bpm] 02/03 0701 - 02/04 0700 In: 785 [P.O.:785] Out: 500 [Urine:500] Admit weight: 61.14 kg Current weight: Weight: 64.5 kg (142 lb 3.2 oz) Physical Exam: General: Sitting in bed. No distress Neuro: A&Ox4. Moves all extremities without focal deficit. Lungs: Non-labored respirations on room air Heart: regular rate and rhythm. 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 female 6 Days Post-Op tissue AVR, LV myectomy. Recovering as expected. Postop atrial fibrillation as a complication of surgery, hx SVT. Amio PO 400mg daily Cont metoprolol 25 TID Hydrocortisone wean to 50mg Q8hrs Initiating coumadin for AF Ambulate Neuro: tylenol, received toradol x 5 doses, oxy prn, wellbutrin 300 CV: metop 25 tid, lipitor 10, amio 400 qd PO Pulm: RA, db/is, pulm hygiene GI: regular diet, protonix, rbos : no issues Renal: k prn, no lasix Heme: asa, coumadin, likely resume home Zejula tomorrow ID: no issues Endo: no dm hx. hydrocortisone 80 IV q8hrs Dispo: iccu, full code Discussed with attending surgeon on rounds this morning. RENU Kohli 02/04/2022 Between the hours of 1800 - 0600 and on the weekends please page [phone]. * Cici Shipley, CERTIFIED DRUG COUNSELOR - 02/03/2022 10:04 AM EDT Cardiac Surgery Progress Note Mark Waller is a 61 y.o. 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 Denies pain, SOB, dizziness. No palpitations. +bm O: Temp: [36.5 ??C (97.7 ??F)-37 ??C (98.6 ??F)] Heart Rate: [64-95] Resp: [16-18] BP: (121-139)/(75-93) SpO2: [94 %-97 %] Heart Rate from SpO2: [64 bpm-95 bpm] 02/02 0701 - 02/03 0700 In: 1240.4 [P.O.:625; I.V.:615.4] Out: 1300 [Urine:1300] Admit weight: 61.14 kg Current weight: Weight: 63.9 kg (140 lb 12.8 oz) Physical Exam: General: Sitting in bed. No distress Neuro: Awake and alert. Moves all extremities without focal deficit. Lungs: Non-labored respirations on room air Heart: regular, no murmur, gallop, rub Abdomen: Soft, nontender Ext: WWP, no edema Incisions: JUAN CDI T/L/D/W: Assessment/Plan: 61 y.o. female 5 Days Post-Op tissue AVR, LV myectomy. Recovering as expected. Post op afib x2, hx SVT. Keep amio 200 qd Continue hydrocortisone q 8 hrs will start wean tomorrow Encourage ambulation Melatonin for sleep Neuro: tylenol, toradol x 5 doses, oxy prn, wellbutrin 300 CV: metop 25 bid, lipitor 10, amio 200 qd PO Pulm: ra, db/is, pulm hygiene GI: regular diet, protonix, rbo's, reglan prn : no issues Renal: k prn, no lasix Heme: asa ID: no issues Endo: no dm hx. hydrocortisone 100 IV q8hrs Dispo: iccu, full code Discussed with attending surgeon on rounds this morning. CICI SHIPLEY, TENISHA 02/03/2022 Between the hours of 1800 - 0600 and on the weekends please page [phone]. * Mercedes Alcazar RN - 02/02/2022 5:59 PM EDT Pt a/ox4 no c/o CP. Pain managed w/ PRN and scheduled meds. PT on amiodarone gtt Started by provider on PO amiodarone see MAR. Pt ambulating around unit standby assist. See flowsheets for I/O, see saved tele strips. Safety maintained. * Sahra Britton PA - 02/02/2022 12:29 PM EDT Cardiac Surgery Progress Note Mark Waller is a 61 y.o. 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 Expected to feel better than she does. Denies pain, SOB, dizziness. No palpitations. Poor PO appetite, nausea at times. O: Temp: [36.6 ??C (97.9 ??F)-37.1 ??C (98.8 ??F)] Heart Rate: -- Resp: [16-18] BP: (89-127)/(59-92) SpO2: [93 %-97 %] Heart Rate from SpO2: [69 bpm-97 bpm] 02/01 0701 - 02/02 0700 In: 1553.3 [P.O.:1300; I.V.:253.3] Out: 2049 [Urine:2049] Admit weight: 61.14 kg Current weight: Weight: 64.1 kg (141 lb 5 oz) Physical Exam: General: Sitting in bed. No distress Neuro: Awake and alert. Moves all extremities without focal deficit. Lungs: Non-labored respirations on room air Heart: regular, no murmur, gallop, rub Abdomen: Soft, nontender Ext: WWP, no edema Incisions: JUAN CDI T/L/D/W: TPW Assessment/Plan: 61 y.o. female 4 Days Post-Op tissue AVR, LV myectomy. Recovering as expected. Post op afib x2, hx SVT. Amio gtt, transition to PO Stop IVF Remove TPW Random AM cortisol low, start hydrocort IV 100 Q8hrs K replacement Neuro: tylenol, toradol x 5 doses, oxy prn, wellbutrin 300 CV: metop 25 bid, lipitor 10, amio drip > PO Pulm: ra, db/is, pulm hygiene GI: regular diet, protonix, rbo's, reglan prn : no issues Renal: k prn, no lasix as giving volume Heme: asa, no a/c yet ID: no issues Endo: no dm hx. hydrocortisone 100 IV q8hrs Dispo: iccu, full code Discussed with attending surgeon on rounds this morning. RENU Kohli 02/02/2022 Between the hours of 1800 - 0600 and on the weekends please page [phone]. * Geoff Bauer PA - 02/01/2022 11:52 AM EDT Cardiac Surgery Progress Note Mark Waller is a 61 y.o. 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 Given amio bolus and drip started. Remained in Afib into the afternoon. Repeat bolusgiven. Pt converted to accelerated junctional with RBBB. Pt symptomatic - lightheaded, nauseous, palpitations. BP 80s/50s. Given albumin and amiodarone stopped. Back in afib with RVR this morning ~0400. Pt refused further amio. BB increased to 25 bid and givenearly. Wong removed, voiding S: Feels lousy. +Palpitations, lightheadedness, and mild nausea. Hasn't eaten anything since surgery. No appetite. Passing gas. Ambulated with PT several laps pod1. Having pain but not wanting to take pain meds. O: Temp: [36.8 ??C (98.2 ??F)-37.2 ??C (99 ??F)] Heart Rate: [79-95] Resp: [18-20] BP: (90-125)/(58-88) SpO2: [92 %-96 %] Heart Rate from SpO2: [78 bpm-130 bpm] 01/31 0701 - 02/01 0700 In: 260 [P.O.:260] Out: 1200 [Urine:1200] Admit weight: 61.14 kg Current weight: Weight: 63.4 kg (139 lb 12.4 oz) Physical Exam: General: Sitting in bed. Neuro: Awake and alert. CN II-XII grossly intact, moves all extremities without focal deficit. Lungs: Non-labored respirations on room air Heart: Tachy, irregularly irregular, Afib on tele Abdomen: Soft Ext: WWP, no edema Incisions: JUAN CDI T/L/D/W: TPW Assessment/Plan: 61 y.o. female 3 Days Post-Op tissue AVR, LV myectomy. Recovering as expected. Post op afib. Give albumin x2 and start D5 NS at 50/hr After volume in, rebolus amio over 45min and restart drip at 1 mg/min ADAT, no DCCV given going in/out of AF Reglan prn if zofran ineffective Keep TPW Day 3 labs reviewed F/U CXR Neuro: tylenol, toradol x 5 doses, oxy prn, wellbutrin 300 CV: metop 25 bid, lipitor 10, amio drip Pulm: ra, db/is, pulm hygiene GI: adat, protonix, rbo's, reglan prn : no issues Renal: k prn, no lasix as giving volume Heme: asa, no a/c yet ID: no issues Endo: no dm hx Dispo: iccu, full code Discussed with attending surgeon on rounds this morning. RENU HOLLAND 02/01/2022 Between the hours of 1800 - 0600 and on the weekends please page [phone]. * Sherin Bay RN - 02/01/2022 6:11 AM EDT 02/01 AM- approx 04:04 on tele from junctional to afib HR 120-130s, Vitals taken, pt assisted back to bed from chair, EKG X2 complete placed in paper chart, Xavier Gtz Notified , new orders received to initiate amiodarone gtt- pt refused initiation of amio, per pt request spouse called and updated on pt condition, and Xavier Gtz Updated, 6am CXR postponed to at later time when HR stable, new orders received to give metoprolol 25mg PO. Sherin Bay RN * Sherin Bay RN - 01/31/2022 8:41 PM EDT Covered by: 2042 Xavier Gtz Notified to confirm okay to give metoprolol PM dose-pt in a Junctional Rhythm HR 70s. Sherin Bay RN * Mercedes Alcazar RN - 01/31/2022 6:48 PM EDT Pt a/ox4 no c/o CP. PT converted to afib w/ rates in 150s team notified pt started on IV amiodaronesee MAR. X1 albumin for soft bps. Pt converted to accelerated junctional team notified amiodarone stopped. Pain moderately controlled w/ PRN and scheduled meds. See flowsheets for I/O wong removed per provider order. See saved tele strips. * Alessandro Babcock, PT - 01/31/2022 3:44 PM EDT Physical Therapy Evaluation Patient profile: Mark Waller is a 61 y.o. 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 Precautions/Special Considerations: STERNAL PRECAUTIONS (No pushing, pulling or lifting >8-10lbs); at risk to fall; amnio drip in afib Mobility and Positioning Recommendations: Ambulate 3-4x/daily with nursing with 1 assist, no device OOB in chair for all meals Subjective: ???I just feel dizzy.?? Objective: Pt seen in the ICCU for initial evaluation, post operative protocol exs and precaution teaching w/ transfers and gait. Pt in bed at start of session; in chair at end of session with call sun in reach. Vital Signs: afib; 104 bpm; 102/73 seated; 90/58 standing. 89/56 in chair. RN aware. Incentive Spirometer: 1000 mL with cues Pain: 2/10 reported by patient at rest; 2/10 with mobility Mental Status: A & O x 4 Skin: Sternal incision CDI. Musculoskeletal: ROM: WFL Strength: B LE's 5 Bed Mobility: Supine ->Sit: supervision; log roll to the right Sit-> Supine: not assessed Transfers: Sit to Stand: supervision; indep with sternal precautions Stand to Sit: supervision Gait: 5-6 steps to chair; deferred increased distance secondary hypotension Balance: good Stairs: not assessed Education/Exercise Instruction: Pt issued an exercise list and instructed in the ex's for home including: ankle pumps, shoulder ff to prevent shoulder contractures, IS with deep breathing and cough technique. Pt was instructed in precautions and demonstrated understanding. Assessment: Pt is s/p above CT surgery with sternotomy presenting with expected post operative pain, impaired skin integrity, impaired breathing mechanics, impaired cough, impaired activity toleranceresulting in decreased functional balance, impaired transfers and gait. Pt requires close hemodynamic monitoring. She remains in afib and hypotensive. Deferred ambulation secondary BP. Did attempt again this afternoon and pt nauseated. Pt requires cues for sternal precautions, pacing and breathing techniques with all mobility at this time. Pt requires close hemodynamic monitoring. Anticipate pt will make gains with mobility and be safe for home d/c with assist once medically ready. Plan: 1-3 more sessions for continued transfer training, gait, stairs and pt education. Discharge Recommendations: Home with Equipment needs for home at d/c: No equipment necessary Goals to be achieved by 02/03/22. Pt will perform supine to sit transfers with supervision to/from flat bed, log roll technique with assist of family. Pt will perform sit><stand transfers with supervision with no device Pt will perform bed to chair transfers with supervision with no device Pt will ambulate at least 160' with supervision with no device. Pt will perform a flight stairs with rail, LRAD and supervision. Patient status, treatment, and mobility recommendations have been discussed with nursing, Care management and Medical team. Thank you for this consult. 2017 PT Evaluation Code Rationale: Diagnosis & Pertinent Co-Morbidities, personal factors, and present illness affecting Plan of Care: (see above); Additional personal factors or co- morbidities that impact plan: Total # of Factors: 0 1-2 3+ x Examination of body system impairments, functional limitations and behaviors, and/or participation restrictions. Addressing 1-2 elements Addressing 3 + elements Addressing 4 + elements x Clinical presentation: See assessment above. Stable/Uncomplicated Evolving/Fluctuating Symptoms Unstable/Unpredictable x Clinical decision making of moderate complexity based on pt's functional performance as outlined inthis evaluation. ALESSANDRO BABCOCK, PT Pager: [phone] Physical Therapy Inpatient Rehabilitation Department Time IN / OUT: [id number] Total time: 20 mins eval * Cici Shipley, CERTIFIED DRUG COUNSELOR - 01/31/2022 8:53 AM EDT Cardiac Surgery Progress Note Mark Waller is a 61 y.o. 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 NAD. Pleasant. Neuro: Awake and alert. moves all extremities with equal strength. Lungs: CTA Heart: iRRR, afib on tele Abdomen: Soft, NTND Ext: WWP, no edema Incisions: CDI without drainage or crepitus Tubes/Lines/Drains: piv, wong, pw Assessment/Plan: 61 y.o. female 2 Days Post-Op tissue AVR, LV myectomy. Recovering as expected. Post op afib Metop increase as able afib this am with rvr will add amio Npo after mn if still in afib will attempt cv Wong out Keep pw Neuro: tylenol, toradol x 5 doses, oxy, wellbutrin 300 CV: metop 12.5'', lipitor 10, amio Pulm: ra, db/is, pulm hygiene GI: adat, protonix, rbo's : wong dc Renal: k prn Heme: asa ID: no issues Endo: no dm hx Dispo: iccu, full code Discussed with attending surgeon on rounds this morning. CICI SHIPLEY, TENISHA 01/31/2022 Between the hours of 1800 - 0600 and on the weekends please page [phone]. 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 Situational Awareness & Contingency Planning - cardiac rehab -d/c? Sherin Bay RN * Avtar Guido PA - 01/30/2022 8:45 AM EDT Cardiac Surgery Progress Note Mark Waller is a 61 y.o. 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 NAD. Pleasant. Neuro: Awake and alert. CN II-XII grossly intact, moves all extremities with equal strength. Lungs: CTA Heart: RRR, SR on tele Abdomen: Soft, NTND Ext: WWP, no edema Incisions: CDI without drainage or crepitus Tubes/Lines/Drains: piv, wong, ct x2, jordy, rij, pw Assessment/Plan: 61 y.o. female 1 Day Post-Op tissue AVR, LV myectomy. Recovering as expected. Metop 12.5'' Hold/no lasix per MD-hyperdynamic LV and hx richelle Dc fem jordy Dc ct's Resume home zejula for ovarian CA, non-formulary request, awaiting pharmacy approval Transfer Neuro: tylenol, toradol x 5 doses, oxy, wellbutrin 300 CV: metop 12.5'', lipitor 10 Pulm: ra, db/is, pulm hygiene GI: adat, protonix, rbo's : wong Renal: k prn Heme: asa ID: no issues Endo: no dm hx Dispo: transfer Discussed with attending surgeon on rounds this morning. RENU GUEVARA 01/30/2022 Between the hours of 1800 - 0600 and on the weekends please page [phone]. * Saul Steele RCP - 01/29/2022 12:52 PM EDT Respiratory Care Mechanical Ventilation Note Protocol: CSVW Vent Mode: SIMV VC +PS Circuit: HME Settings: Tidal Volume Set: 420 Resp. Rate Set: 12 PS Above PEEP (cm H2O): 5 Set PEEP (cm H2O): 5 Set FiO2: 100 % Inspiratory Time: 1 Sec(s) Measurements: Tidal Volume Measured Exp.: 390 Resp: 12 Peak Inspiratory Pressure: 15 Mean Airway Pressure (cm H2O): 6.4 Minute Ventilation Total Exhaled (L/min): 4.8 SpO2: 100 % ETCO2 (mmHg): 39 mmHg Airway: Size: 8.0 ETT Depth: 22 cm @ teeth/gums. Cuff Pressure: 24 mmHg OETT was secure in place with no observed oral facial break down. Cuff maintained per guidelines, OETT was patent Lung sounds: Clear Secretions: None noted. Assessment: Pt was received to the unit by the OR staff, OETT was secured in per OR recommendations, vent settings per OR settings. Plan to wean per guideline. Pt tolerated change to PSV, pt was extubated per guidelines with no events or notable issues. Respiratory Pager# [phone] documented in this encounter H&P Notes * Efrain Bah MD - 01/29/2022 7:07 AM EDT I have seen and examined the ptatient and we are ready to proceed. Source Note - Efrain Bah MD - 01/28/2022 4:32 PM EDT 61 yo female who has been followed for a period of time with progressive aortic stenosis. Her most recent echo shows LVEF 75%, mean gradient of 49 mmHg, moderate AI. She also has some RICHELLE with mild to moderate LVOT gradients. She has noted increasing fatigue, dyspnea and lightheadedness. She also has a history of SVT and tried to undergo ablation, but they could not induce the arrhythmia. Cardiaccath shows fairly normal PAP and no CAD. ?? She comes in today to discuss valve surgery. ?? Allergies Allergen Reactions ??? Paroxetine ? Penicillins Anaphylaxis ??? Sertraline ? Venlafaxine ? Taxol [Paclitaxel] Palpitations and Other (See Comments) ? 17 mls into Taxol C/O of palpitations/lower back pain.Drug stopped. Benadryl/Pepcid/Ativan given. Was able to start drug at half rate when symptoms subsided and increased rate every 30-60 mins.Was able to complete drug. ?? Medications Taking Outpatient Medications Marked as Taking for the 01/07/22 encounter (Office Visit) with Efrain Bah MD Medication Sig Dispense Refill ??? atorvastatin (Lipitor) 10 mg Tablet Take 10 mg by mouth daily. ? dilTIAZem CD (Cardizem CD) 120 mg Capsule, Sust. Release 24 hr Take 360 mg by mouth daily. ? metoprolol succinate XL (Toprol-XL) 25 mg Tablet Sustained Release 24 hr Take 1 tablet by mouthdaily. 90 tablet 2 ??? niraparib (Zejula) 100 mg capsule Take 1 capsule (100 mg) by mouth daily. 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 buPROPion XL (Wellbutrin XL) 300 mg Tablet Extended Release 24 hr TK 1 T PO QAM ? ergocalciferol, vitamin D2, (VITAMIN D ORAL) Take by mouth daily. ? Patient Active Problem List Diagnosis Code ??? Hypothyroidism E03.9 ??? SVT (supraventricular tachycardia) I47.1 ??? Bicuspid aortic valve Q23.1 ??? Chest pain R07.9 ??? Aortic valve stenosis I35.0 ??? HTN (hypertension) I10 ??? 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 BRCA negative Z13.71 ?? Past Medical History Past Medical History: Diagnosis Date ??? Allergic rhinitis ? Anxiety ? Aortic insufficiency due to bicuspid aortic valve ? Aortic stenosis, moderate ? Bicuspid aortic valve ? BRCA negative 10/18/2019 ?? no germline (heritable) mutation was detected. This means that Ivana does not carry a mutation inthe genes detectable by this test. The genes included on this panel are APC, KIRSTIN, BARD1, BMPR1A, BRCA1, BRCA2, BRIP1, CDH1, CDK4, CDKN2A, CHEK2, DICER1, HOXB13, MLH1, MRE11A, MSH2, MSH6, MUTYH, NBN, NF1, PALB2, PMS2, POLD1, POLE, PTEN, RAD50, RAD51C, RAD51D, SMAD4, SMARCA4, STK11, TP53, (sequencingan ??? H/O: 09/10/2013 ?? x2 ??? Heart valve disease ? aortic stenosis ??? High blood pressure ? CONTROLLED WITH MEDICATION ??? History of appendectomy ? Hyperlipidemia ? Hypertension ? Irregular heart beat ? SVT last episode 07-04-2019, does vagal maneuvers, and medication for breakthrough ??? Ovarian cancer, lateral, stage IIIb high-grade serous/endometrioid, 07/20/2019 s/p FREDI/BSO/oment/PPALND/RSReanstomosis 08/10/2019 ??? Ovarian cancer, lateral, stage IIIb high-grade serous/endometrioid, 07/20/2019 s/p FREDI/BSO/oment/PPALND/RSReanstomosis 08/10/2019 ??? Subclinical hypothyroidism ? SVT (supraventricular tachycardia) ? Past Surgical History Past Surgical History: Procedure Laterality Date ??? APPENDECTOMY ?? 08/26/2013 ??? SECTION ? IR MEDIPORT PLACEMENT ?? 08/20/2019 ?? IR Mediport Placement 08/20/2019 Jourdan Lopez PA [facility] INTERVENTIONL RAD ??? IR MEDIPORT REMOVAL ?? 10/04/2020 ?? IR Mediport Removal 10/04/2020 Mahesh Wick MD [facility] INTERVENTIONL RAD ? ? PRG CATH PLMO CORONARY ART W/INJ FOR ANGIO W/R HEART CATH IMG S&I N/A 12/17/2021 ?? CORONARY ANGIOGRAPHY; W RHC performed by Cristóbal Cuevas MD at [facility] CATH LABS ??? PRO GINA SALP-OOPH W/OMENTECT, FREDI, RAD DISSECT N/A 07/20/2019 ?? @HYSTERECTOMY, FREDI, BSO, DEBULKING (WRVU 34.13) performed by Natalie Vallejo MD at [facility] MAIN OR ??? PRO COLONOSCOPY, REMV LESN, SNARE N/A 05/01/2021 ?? COLONOSCOPY, POLYPECTOMY, REMOVAL LESION BY SNARE (WRVU 4.67) performed by Arlin Agudelo MD at [facility] ENDOSCOPY ?? FH: + heart valve disease ?? SH: and seen with her , non-smoker, rare etoh ?? Review of Systems Constitutional: Negative. HENT: Negative. Eyes: Negative. Respiratory: Positive for shortness of breath. Cardiovascular: Positive for palpitations. Gastrointestinal: Negative. Genitourinary: Negative. Musculoskeletal: Negative. Skin: Negative. Neurological: Negative. Endo/Heme/Allergies: Negative. Psychiatric/Behavioral: Negative. ?? Physical Exam: BP 144/73 (BP Location (NBP): Left arm, Patient Position: Sitting) Pulse 74 Ht 165.1 cm (5' 5) Wt 60.6 kg (133 lb 8 oz) SpO2 100% BMI 22.22 kg/m?? HEENT: NC/AT, EOMI, PERRL, anicteric, pharynx clear NECK: supple, no masses, radiated murmur LUNG: CTA CV: RRR, 3/6 KANDY ABD: soft, NT, nd, no masses EXT: no CCE, FROM, normal pulse exam NEURO: grossly intact SKIN: + vitiligo, no other lesions or rashes ?? A/P: 61 yo female with symptomatic severe and possible issue with RICHELLE underneath the valve. She meets indications for surgery. Surgical risk is moderate. She understands the procedure, risks and expectations. Would plan for a tissue valve. She may require ventricular myectomy as well with there is an LVOT problem. She understands the risks of pacemaker implant. ?? I would like her to stop her niraparib one week prior to surgery. ?? Consent signed. * Efrain Bah MD - 01/28/2022 4:32 PM EDT 61 yo female who has been followed for a period of time with progressive aortic stenosis. Her most recent echo shows LVEF 75%, mean gradient of 49 mmHg, moderate AI. She also has some RICHELLE with mild to moderate LVOT gradients. She has noted increasing fatigue, dyspnea and lightheadedness. She also has a history of SVT and tried to undergo ablation, but they could not induce the arrhythmia. Cardiaccath shows fairly normal PAP and no CAD. ?? She comes in today to discuss valve surgery. ?? Allergies Allergen Reactions ??? Paroxetine ? Penicillins Anaphylaxis ??? Sertraline ? Venlafaxine ? Taxol [Paclitaxel] Palpitations and Other (See Comments) ? 17 mls into Taxol C/O of palpitations/lower back pain.Drug stopped. Benadryl/Pepcid/Ativan given. Was able to start drug at half rate when symptoms subsided and increased rate every 30-60 mins.Was able to complete drug. ?? Medications Taking Outpatient Medications Marked as Taking for the 01/07/22 encounter (Office Visit) with Efrain Bah MD Medication Sig Dispense Refill ??? atorvastatin (Lipitor) 10 mg Tablet Take 10 mg by mouth daily. ? dilTIAZem CD (Cardizem CD) 120 mg Capsule, Sust. Release 24 hr Take 360 mg by mouth daily. ? metoprolol succinate XL (Toprol-XL) 25 mg Tablet Sustained Release 24 hr Take 1 tablet by mouthdaily. 90 tablet 2 ??? niraparib (Zejula) 100 mg capsule Take 1 capsule (100 mg) by mouth daily. 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 buPROPion XL (Wellbutrin XL) 300 mg Tablet Extended Release 24 hr TK 1 T PO QAM ? ergocalciferol, vitamin D2, (VITAMIN D ORAL) Take by mouth daily. ? Patient Active Problem List Diagnosis Code ??? Hypothyroidism E03.9 ??? SVT (supraventricular tachycardia) I47.1 ??? Bicuspid aortic valve Q23.1 ??? Chest pain R07.9 ??? Aortic valve stenosis I35.0 ??? HTN (hypertension) I10 ??? 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 BRCA negative Z13.71 ?? Past Medical History Past Medical History: Diagnosis Date ??? Allergic rhinitis ? Anxiety ? Aortic insufficiency due to bicuspid aortic valve ? Aortic stenosis, moderate ? Bicuspid aortic valve ? BRCA negative 10/18/2019 ?? no germline (heritable) mutation was detected. This means that Ivana does not carry a mutation inthe genes detectable by this test. The genes included on this panel are APC, KIRSTIN, BARD1, BMPR1A, BRCA1, BRCA2, BRIP1, CDH1, CDK4, CDKN2A, CHEK2, DICER1, HOXB13, MLH1, MRE11A, MSH2, MSH6, MUTYH, NBN, NF1, PALB2, PMS2, POLD1, POLE, PTEN, RAD50, RAD51C, RAD51D, SMAD4, SMARCA4, STK11, TP53, (sequencingan ??? H/O: 09/10/2013 ?? x2 ??? Heart valve disease ? aortic stenosis ??? High blood pressure ? CONTROLLED WITH MEDICATION ??? History of appendectomy ? Hyperlipidemia ? Hypertension ? Irregular heart beat ? SVT last episode 07-04-2019, does vagal maneuvers, and medication for breakthrough ??? Ovarian cancer, lateral, stage IIIb high-grade serous/endometrioid, 07/20/2019 s/p FREDI/BSO/oment/PPALND/RSReanstomosis 08/10/2019 ??? Ovarian cancer, lateral, stage IIIb high-grade serous/endometrioid, 07/20/2019 s/p FREDI/BSO/oment/PPALND/RSReanstomosis 08/10/2019 ??? Subclinical hypothyroidism ? SVT (supraventricular tachycardia) ? Past Surgical History Past Surgical History: Procedure Laterality Date ??? APPENDECTOMY ?? 08/26/2013 ??? SECTION ? IR MEDIPORT PLACEMENT ?? 08/20/2019 ?? IR Mediport Placement 08/20/2019 Jourdan Lopez PA [facility] INTERVENTIONL RAD ??? IR MEDIPORT REMOVAL ?? 10/04/2020 ?? IR Mediport Removal 10/04/2020 Mahesh Wick MD [facility] INTERVENTIONL RAD ? ? PRG CATH PLMO CORONARY ART W/INJ FOR ANGIO W/R HEART CATH IMG S&I N/A 12/17/2021 ?? CORONARY ANGIOGRAPHY; W RHC performed by Cristóbal Cuevas MD at [facility] CATH LABS ??? PRO GINA SALP-OOPH W/OMENTECT, FREDI, RAD DISSECT N/A 07/20/2019 ?? @HYSTERECTOMY, FREDI, BSO, DEBULKING (WRVU 34.13) performed by Natalie Valleoj MD at [facility] MAIN OR ??? PRO COLONOSCOPY, REMV LESN, SNARE N/A 05/01/2021 ?? COLONOSCOPY, POLYPECTOMY, REMOVAL LESION BY SNARE (WRVU 4.67) performed by Arlin Agudelo MD at [facility] ENDOSCOPY ?? FH: + heart valve disease ?? SH: and seen with her , non-smoker, rare etoh ?? Review of Systems Constitutional: Negative. HENT: Negative. Eyes: Negative. Respiratory: Positive for shortness of breath. Cardiovascular: Positive for palpitations. Gastrointestinal: Negative. Genitourinary: Negative. Musculoskeletal: Negative. Skin: Negative. Neurological: Negative. Endo/Heme/Allergies: Negative. Psychiatric/Behavioral: Negative. ?? Physical Exam: BP 144/73 (BP Location (NBP): Left arm, Patient Position: Sitting) Pulse 74 Ht 165.1 cm (5' 5) Wt 60.6 kg (133 lb 8 oz) SpO2 100% BMI 22.22 kg/m?? HEENT: NC/AT, EOMI, PERRL, anicteric, pharynx clear NECK: supple, no masses, radiated murmur LUNG: CTA CV: RRR, 3/6 KANDY ABD: soft, NT, nd, no masses EXT: no CCE, FROM, normal pulse exam NEURO: grossly intact SKIN: + vitiligo, no other lesions or rashes ?? A/P: 61 yo female with symptomatic severe and possible issue with RICHELLE underneath the valve. She meets indications for surgery. Surgical risk is moderate. She understands the procedure, risks and expectations. Would plan for a tissue valve. She may require ventricular myectomy as well with there is an LVOT problem. She understands the risks of pacemaker implant. ?? I would like her to stop her niraparib one week prior to surgery. ?? Consent signed. documented in this encounter Miscellaneous Notes * Plan of Care - Giana Christian RN - 02/06/2022 11:08 AM EDT Pt reviewed AVS with RN & all questions were answered. Pt discharged to the [facility] via wheelchair. Problem: Adult Inpatient Plan of Care Goal: Plan of Care Review Outcome: Outcome (s) achieved Goal: Patient-Specific Goal (Individualized) Outcome: Outcome (s) achieved Goal: Absence of Hospital-Acquired Illness or Injury Outcome: Outcome (s) achieved Goal: Optimal Comfort and Wellbeing Outcome: Outcome (s) achieved Goal: Readiness for Transition of Care Outcome: Outcome (s) achieved Problem: Dysrhythmia Goal: Normalized Cardiac Rhythm Outcome: Outcome (s) achieved Problem: Activity Intolerance (Cardiovascular Surgery) Goal: Improved Activity Tolerance Outcome: Outcome (s) achieved Problem: Adjustment to Surgery (Cardiovascular Surgery) Goal: Optimal Coping with Heart Surgery Outcome: Outcome (s) achieved Problem: Bleeding (Cardiovascular Surgery) Goal: Absence of Bleeding Outcome: Outcome (s) achieved Problem: Bowel Elimination Impaired (Cardiovascular Surgery) Goal: Effective Bowel Elimination Outcome: Outcome (s) achieved Problem: Cardiac Function Impaired (Cardiovascular Surgery) Goal: Effective Cardiac Function Outcome: Outcome (s) achieved Problem: Cerebral Tissue Perfusion Risk (Cardiovascular Surgery) Goal: Effective Cerebral Perfusion Outcome: Outcome (s) achieved Problem: Fluid Imbalance (Cardiovascular Surgery) Goal: Fluid Balance Outcome: Outcome (s) achieved Problem: Infection (Cardiovascular Surgery) Goal: Absence of Infection Signs and Symptoms Outcome: Outcome (s) achieved Problem: Ongoing Anesthesia Effects (Cardiovascular Surgery) Goal: Anesthesia/Sedation Recovery Outcome: Outcome (s) achieved Problem: Pain (Cardiovascular Surgery) Goal: Acceptable Pain Control Outcome: Outcome (s) achieved Problem: Postoperative Nausea and Vomiting (Cardiovascular Surgery) Goal: Nausea and Vomiting Relief Outcome: Outcome (s) achieved Problem: Postoperative Urinary Retention (Cardiovascular Surgery) Goal: Effective Urinary Elimination Outcome: Outcome (s) achieved Problem: Respiratory Compromise (Cardiovascular Surgery) Goal: Effective Oxygenation and Ventilation Outcome: Outcome (s) achieved * Care Management Discharge - Susi Mehta RN - 02/06/2022 9:24 AM EDT CARE MANAGEMENT FINAL DISCHARGE NOTE Chart reviewed, care reviewed with primary team and at interdisciplinary rounds. Patient is medically ready for discharge to Home with [facility] . Needs for Transition of Care: Plan for discharge is: Home w/ Services Outpatient Agency/Support Group Needs: Homecare agency Home Health Services: Registered Nurse, Physical Therapy, Anticoagulation monitoring, Wound care Agency Referrals & Follow-up Care: Contact information for follow-up Home Health & Hospice[address] [facility] [id number] CM confirmed [facility] for INR Test tomorrow . Team aware Transportation: family or friend will provide Functional status prior to admission: Independent Home Environment: Others in the home: spouse, pet(s) (Sandovla (spouse) and 2 dogs.). Current Living Arrangements: home/apartment/condo. Accessibility Concerns:2 [address] Double level home and lives on main level.. 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 DME used at home: crutches, grab bar - tub/shower, tub bench DME Needed at Discharge: None at this time Patient is insured through: Primary Insurance: MVP Payor: MVP / Plan: MVP [place] / Product Type: *No Product type* / Secondary Insurance: N/A Prescription Coverage: Yes This plan was formulated with input from patient, and team. All are in agreement with plan. Office of Care Management Surgery Team Talent Acquisition Relationship Manager [email or web address] Pager #[phone] * Plan of Care - Giana Christian RN - 02/05/2022 6:06 PM EDT OUTCOME EVALUATION NOTE: OUTCOME SUMMARY: Pt had an uneventful day. Pt A&Ox4. NSR on telemetry. No reports of chest pain or SOB. Midsternal incision CDI & OPA. Home Zejula dose resumed and scheduled to start at 2100. Coumadin 5mg administered at 1700. Hydrocortisone wean to 25mg. Possible discharge tomorrow. See flowsheets for VS & I/Os. Call sun within reach. 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 I/Os discharge planning as appropriate INDIVIDUALIZED FALL PREVENTION INTERVENTIONS: Patient-specific fall risk factors per assessment: [current deficits]: telemetry Assistance [level of assistance required for transfers and ambulation]: IND Supervision [direct monitoring required during toileting and ADLs]: IND Surveillance [continuous indirect monitoring]: Telemetry Call sun within reach Hourly rounding CPG GOAL OUTCOME EVALUATION: ongoing assessment Problem: Adult Inpatient Plan of Care Goal: [...] Rhythm Outcome: Ongoing (Interventions Implemented as Appropriate) Problem: Activity Intolerance (Cardiovascular Surgery) Goal: Improved Activity Tolerance Outcome: Ongoing (Interventions Implemented as Appropriate) Problem: Adjustment to Surgery (Cardiovascular Surgery) Goal: Optimal Coping with Heart Surgery Outcome: Ongoing (Interventions Implemented as Appropriate) Problem: Bleeding (Cardiovascular Surgery) Goal: Absence of Bleeding Outcome: Ongoing (Interventions Implemented as Appropriate) Problem: Bowel Elimination Impaired (Cardiovascular Surgery) Goal: Effective Bowel Elimination Outcome: Ongoing (Interventions Implemented as Appropriate) Problem: Cardiac Function Impaired (Cardiovascular Surgery) Goal: Effective Cardiac Function Outcome: Ongoing (Interventions Implemented as Appropriate) Problem: Cerebral Tissue Perfusion Risk (Cardiovascular Surgery) Goal: Effective Cerebral Perfusion Outcome: Ongoing (Interventions Implemented as Appropriate) Problem: Fluid Imbalance (Cardiovascular Surgery) Goal: Fluid Balance Outcome: Ongoing (Interventions Implemented as Appropriate) Problem: Infection (Cardiovascular Surgery) Goal: Absence of Infection Signs and Symptoms Outcome: Ongoing (Interventions Implemented as Appropriate) Problem: Ongoing Anesthesia Effects (Cardiovascular Surgery) Goal: Anesthesia/Sedation Recovery Outcome: Ongoing (Interventions Implemented as Appropriate) Problem: Pain (Cardiovascular Surgery) Goal: Acceptable Pain Control Outcome: Ongoing (Interventions Implemented as Appropriate) Problem: Postoperative Nausea and Vomiting (Cardiovascular Surgery) Goal: Nausea and Vomiting Relief Outcome: Ongoing (Interventions Implemented as Appropriate) Problem: Postoperative Urinary Retention (Cardiovascular Surgery) Goal: Effective Urinary Elimination Outcome: Ongoing (Interventions Implemented as Appropriate) Problem: Respiratory Compromise (Cardiovascular Surgery) Goal: Effective Oxygenation and Ventilation Outcome: Ongoing (Interventions Implemented as Appropriate) * Care Management - Kaylen Cabrera RN - 02/05/2022 3:00 PM EDT OFFICE OF CARE MANAGEMENT PROGRESS NOTE LOS: Hospital Day 7 days Chart reviewed, care reviewed with primary team and at interdisciplinary rounds. Patient continues to meet inpatient level of care related to: Aortic Stenosis. POD 7 tissue AVR & LV myectomy. Started coumadin and on steroids. Decision Maker: Self Functional status prior to admission: Independent Home Environment: Others in the home: spouse, pet(s) (Sandoval (spouse) and 2 dogs.). Current Living Arrangements: home/apartment/condo. Accessibility Concerns: 2 [address] Double level home and lives on main level.. 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 DME used at home: crutches, grab bar - tub/shower, tub bench DME Needed at Discharge: None Patient is insured through: Primary Insurance: MVP Payor: MVP / Plan: MVP [place] / Product Type: *No Product type* / Secondary Insurance: N/A Last Physical Therapy Recommendation: home with supervision ( home with pt) with None Last Occupational Therapy Recommendation: with Plan for discharge is: Home w/ Services Outpatient Agency/Support Group Needs: Homecare agency Home Health Services: Registered Nurse, Physical Therapy, Anticoagulation monitoring, Wound care Agency Referrals: Not Applicable [facility] following patient. Transportation: family or friend will provide Barriers to discharge: Discharge planning Plan going forward: Care Management will continue to follow and assist with discharge planning and coordination of care as indicated. Anticipated Date of Discharge: 02/07/2022 * Plan of Care - Diane Hinds RN - 02/03/2022 11:52 PM EDT OUTCOME EVALUATION NOTE: OUTCOME SUMMARY: Upon assessment, pt AOx4, pain free and calm. VSS. At around 2130, flipped into afib with rates 100's-120's. Pt reporting feelings of fluttering in my chest, discomfort and anxiety. Hypertensive with systolic in 150's. Provider notified. Amio bolus 150mg ordered and administered. Xanax 0.5 mg ordered for anxiety and given. Metoprolol AM dose increased. After amio bolus, at around 2215 pt convert ed back to sinus rhythm. VSS. Pt reporting relief in symptoms. Urinating adequately in bathroom. UpSBA with no symptoms. Back in afib rates controlled at 0115, then back to NSR at 0315. Trouble sleeping, benadryl given for sleep. Safety maintained. PLAN MOVING FORWARD: Monitor rhythm. INDIVIDUALIZED FALL PREVENTION INTERVENTIONS: Patient-specific fall risk factors per assessment: [current deficits]: Tele. Unfamiliar environment. Assistance [level of assistance required for transfers and ambulation]: SBA Supervision [direct monitoring required during toileting and ADLs]: SBA Surveillance [continuous indirect monitoring]: Tele Patient-specific fall prevention interventions for sensory deficits provided, if applicable: [X] N/A * Plan of Care - Diane Hinds RN - 02/03/2022 1:57 AM EDT OUTCOME EVALUATION NOTE: OUTCOME SUMMARY: Upon assessment, pt AOX2, pleasant and cooperative. Reports of back stiffness/soreness from bed. Scheduled tylenol given with relief. VSS. NSR. Also, reports of inability to sleep, stating I feel jittery, restless and stirring in here. I need something to help me sleep. Refused steroid at 0000 due to symptoms, believing these are related to the steroid. Provider notified and asked for sleep aid. Melatonin 6mg given. Pt still unable to sleep. Feelings of restlessness. Back pain continues. Oxycodone 5mg given. Upon reassessment, pt asleep in bed. Urinating adequately in bathroom. No bowel movement overnight. IV's patent. Safety maintained. PLAN MOVING FORWARD: In rounds, need to touch base regarding steroid course. Monitor for pain. INDIVIDUALIZED FALL PREVENTION INTERVENTIONS: Patient-specific fall risk factors per assessment: [current deficits]: Tele. Unfamiliar environment. Assistance [level of assistance required for transfers and ambulation]: SBA Supervision [direct monitoring required during toileting and ADLs]: SBA Surveillance [continuous indirect monitoring]: Tele Patient-specific fall prevention interventions for sensory deficits provided, if applicable: [X] N/A * Plan of Care - Giana Christian RN - 02/02/2022 6:36 AM EDT OUTCOME EVALUATION NOTE: OUTCOME SUMMARY: Pt had an uneventful night. Pt A&Ox4. SR with intermittent afib on telemetry. No reports of chest pain or SOB. Amio infusion maintained per protocol. Midsternal incision CDI & OPA. Scheduled tylenol for pain. See flowsheets for VS & I/Os. Call sun within reach. 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 I/Os discharge planning as appropriate INDIVIDUALIZED FALL PREVENTION INTERVENTIONS: Patient-specific fall risk factors per assessment: [current deficits]: telemetry Assistance [level of assistance required for transfers and ambulation]: SBA/IND Supervision [direct monitoring required during toileting and ADLs]: SBA/IND Surveillance [continuous indirect monitoring]: Telemetry Call sun within reach Hourly rounding CPG GOAL OUTCOME EVALUATION: ongoing assessment Problem: Adult Inpatient Plan of Care Goal: [...] Rhythm Outcome: Ongoing (Interventions Implemented as Appropriate) Problem: Activity Intolerance (Cardiovascular Surgery) Goal: Improved Activity Tolerance Outcome: Ongoing (Interventions Implemented as Appropriate) Problem: Adjustment to Surgery (Cardiovascular Surgery) Goal: Optimal Coping with Heart Surgery Outcome: Ongoing (Interventions Implemented as Appropriate) Problem: Bleeding (Cardiovascular Surgery) Goal: Absence of Bleeding Outcome: Ongoing (Interventions Implemented as Appropriate) Problem: Bowel Elimination Impaired (Cardiovascular Surgery) Goal: Effective Bowel Elimination Outcome: Ongoing (Interventions Implemented as Appropriate) Problem: Cardiac Function Impaired (Cardiovascular Surgery) Goal: Effective Cardiac Function Outcome: Ongoing (Interventions Implemented as Appropriate) Problem: Cerebral Tissue Perfusion Risk (Cardiovascular Surgery) Goal: Effective Cerebral Perfusion Outcome: Ongoing (Interventions Implemented as Appropriate) Problem: Fluid Imbalance (Cardiovascular Surgery) Goal: Fluid Balance Outcome: Ongoing (Interventions Implemented as Appropriate) Problem: Infection (Cardiovascular Surgery) Goal: Absence of Infection Signs and Symptoms Outcome: Ongoing (Interventions Implemented as Appropriate) Problem: Ongoing Anesthesia Effects (Cardiovascular Surgery) Goal: Anesthesia/Sedation Recovery Outcome: Ongoing (Interventions Implemented as Appropriate) Problem: Pain (Cardiovascular Surgery) Goal: Acceptable Pain Control Outcome: Ongoing (Interventions Implemented as Appropriate) Problem: Postoperative Nausea and Vomiting (Cardiovascular Surgery) Goal: Nausea and Vomiting Relief Outcome: Ongoing (Interventions Implemented as Appropriate) Problem: Postoperative Urinary Retention (Cardiovascular Surgery) Goal: Effective Urinary Elimination Outcome: Ongoing (Interventions Implemented as Appropriate) Problem: Respiratory Compromise (Cardiovascular Surgery) Goal: Effective Oxygenation and Ventilation Outcome: Ongoing (Interventions Implemented as Appropriate) * Consult Note - Renu Quiroz RN - 02/01/2022 10:21 AM EDT [facility] C[facility] Mark Waller was seen today regarding participation in the outpatient Phase 2 Cardiac Rehabilitation at [facility]. The patient agrees to a referral to this program. The referral will be sent at discharge and the patient should be contacted by the Program within 1- 2 weeks from discharge. * Initial Assessments - Kaylen Cabrera RN - 01/31/2022 2:55 PM EDT Office of Care Management Initial Assessment Kaylen Cabrera RN reviewed record and discussed patient with Care Team. Source of Information: Team, bedside nurse, medical record, and Patient Mark Smithrhonda Introduced self/reviewed role; services accepted. Reason for Hospitalization: valve surgery Covid Vaccination Status: 1st, 2nd & booster (X5 w/Pfizer) Last COVID test: Lab Results Component Value Date [id number] Not Detected 08/08/2020 Past medical History: Past Medical History: Diagnosis Date ??? Allergic [...] ??? Subclinical hypothyroidism ??? SVT (supraventricular tachycardia) Hospitalizations Within the Past 30 Days: no previous admission in last 30 days Current Decision-Making Capacity: Self If AD's have not been completed the following surrogate would be surrogate decision maker per [place] surrogate decision making law. (Only good for 180 days) Any patient receiving care in [place] must abide by [place] law. The hierarchy for surrogate decision making is: (a) Patient???s spouse, or civil union partner or common law spouse unless there is a divorce proceeding, separation agreement, or restraining order limiting that person???s relationship with the patient. (b) Any adult son or daughter of the patient. (c) Either parent of the patient. (d) Any adult brother or sister of the patient. (e) Any adult grandchild of the patient. (f) Any grandparent of the patient. (g) Any adult aunt, uncle, niece, or nephew of the patient. (h) A close friend of the patient. (i) The agent with financial power of employee benefits attorney or a conservator appointed in accordance with RSA 464-A. (j) The guardian of the patient???s estate. Advance Care Planning: Attempt Cardiopulmonary Resuscitation - Inpatient <no information> -Advanced Directive: Other (Requesting AD to be done this hospitalization. RS notified.) Current Coping/Education/Information Needs: Pending hospital course. 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 Functional Status Prior to Admission: Independent Prior ADLs & IADLs: Independent with all ADLs & IADLs Home Environment: Others in the home: spouse, pet(s) (Sandoval (spouse) and 2 dogs.). Current Living Arrangements: home/apartment/condo. Accessibility Concerns:2 [address] Double level home and lives on main level.. Resource / Environmental Concerns: Resource/Environmental Concerns: none Current DME: crutches, grab bar - tub/shower, tub bench Home Address confirmed as: [address] [address] Social & Family Supports: All names listed below confirmed with patient as current and correct Extended Emergency Contact Information Primary Emergency Contact: CherylSandoval Address: [address] [address] [facility] [place] Relation: Spouse Secondary Emergency Contact: [place] [address] [facility] [place] Relation: Friend Current Care Provided by: self Provides Primary Care For: no one Caregiver if needed: spouse Quality of Family relationships: helpful, involved, supportive Community Resources being provided currently: none Behavioral Health History: Denies any. Substance Use/Abuse listed: Social History Tobacco Use Smoking Status Former Smoker ??? Quit date: 07/12/1977 ??? Years since quittin.5 Smokeless Tobacco Never Used In the past year have you used an illegal drug or used a prescription medication for non-medical reasons?: No 0 No problems reported 1-2 Low level 3-5 Moderate level 6-8 Substantial level 9- 10 Severe level In the past year have you had 4 or more drinks a day containing alcohol?: No 0 to 7 points: Low risk 8 to 15 points: Medium risk 16 to 19 points: High risk 20 to 40 points: Addiction likely Other Pertinent/Service Specific Information: Pending hospital course. Health/Prescription Coverage: Primary Insurance: MVP Payor: MVP / Plan: MVP [place] / Product Type: *No Product type* / Secondary Insurance: N/A Secondary Insurance? (Only Medicare A&B): No ; Why not?: N/A Prescription Coverage: Yes Preferred Pharmacy: [facility] Home Delivery - [facility] [address] [facility] [address] [facility] [address] [facility] [id number] - [place], [place] - [address] [facility] [address] [facility] [address] [place] Status: Patient is a : No Primary Care Provider: Evelyne Hunt APRN [phone] Patient/Caregiver Goals of Treatment: When medically stable discharge to home. Potential Needs for Transition of Care: home health care Agency Referrals: I have met with the patient to: ?? discuss discharge planning needs. ?? provide the [facility], Office of Care Management letter from the Consulting Business Developer pertaining to rehabreferrals. ?? provide a letter describing our affiliations within the [facility] and educate about their right to choose where referrals are sent. ?? provide a list of Home Health Agencies / Durable Medical Equipment vendors which serve their preferred geographic area. ?? provided patient with [facility] Star Quality Rating handout. They have requested referrals to: [facility]. [address] [place] [id number] Note routed to a Reinstatement Clerk who will communicate referrals to facilities and provide any required information. Transportation: no concerns Transportation Anticipated: family or friend will provide (Sandoval (spouse)) Concerns to be Addressed: discharge planning Assessment: Patient is admitted to cardiology (CT Surg) service for aortic stenosis; AVR. Plan: Monitor patient progress. Assess care needs and make referrals as needed. A member of the Care Management team will continue to monitor progress, follow for continuity of care and assist with transition of care planning. * Brief Op Note - Efrain Bah MD - 01/29/2022 12:16 PM EDT Brief Operative Note Patient Name: Mark Waller : [id number] MR#: [id number] Case Date: 01/29/2022 Surgeon: Surgeon(s) and Role: * Efrain Bah MD - Primary * Avtar Guido PA - Physician Milk Route Deliverer Preoperative diagnosis: , RICHELLE Postoperative diagnosis: , RICHELLE Procedure: AVR 23 INSPIRIS, LV MYECTOMY, TON Anesthesia: General Intake: Intraprocedure Crystalloid Total Intake Lactated Ringers 900.00 mL Sodium Chloride 0.9% 1300.00 mL Cell Saver Volume 566 mL Total Intake 2766 mL Output Urine Output 610 mL Blood Loss 566 mL Total Output 1176 mL Net Net Volume 1590 mL Transfusion No data found in the last 1 encounters. Output: Estimated Blood Loss: 566 mL Urine Output:: 610 mL Other Output: (no other output recorded) Drains: 2 CHEST TUBES Specimens removed during surgery: AORTIC VALVE, LV MUSCLE Disposition: [facility] Condition: STABLE CONDUCT OF CARDIOPULMONARY BYPASS: Venous Cannula THREE STAGE Arterial cannula 18 EOPA Temperature management: NORMOTHERMIC TPT 109 min/CCT 82 min FINDINGS: BICUSPID VALVE WITH FUSION OF LEFT AND RIGHT. SEPTUM NOT OVERLY THICK. DID A MYECTOMY EXTENDING TOWARDS THE MITRAL VALVE. COULD EASILY SEE THE PAPILLARY MUSCLES. WEANED EASILY FROM CPB. CHORDAL RICHELLE EVIDENT PRE AND POST. MEAN GRADIENT OF 7 ACROSS THE LVOT. VERY HYPERDYNAMIC LV FUNCTION WITH LVEF 80%+ Attestation: Case Date: 01/29/2022 I performed this procedure without the involvement of a resident. * Op Note - Efrain Bah MD - 01/29/2022 8:38 AM EDT [facility] Operative Note Patient Name: Mark Waller : [id number] MR#: [id number] Case Date: 01/29/2022 Surgeon: Surgeon(s) and Role: * Efrain Bah MD - Primary * Avtar Guido PA - Physician Milk Route Deliverer Preoperative diagnosis: , RICHELLE Postoperative diagnosis: , RICHELLE Procedure: AVR 23 INSPIRIS, Left Ventricular MYECTOMY, TON Indications for procedure: 61 yo female who has been followed for a period of time with progressiveaortic stenosis. ??Her most recent echo shows LVEF 75%, mean gradient of 49 mmHg, moderate AI. ??She also has some RICHELLE with mild to moderate LVOT gradients. ??She has noted increasing fatigue, dyspnea and lightheadedness. ??She also has a history of SVT and tried to undergo ablation, but they couldnot induce the arrhythmia. ??Cardiac cath shows fairly normal PAP and no CAD. She is taken to the operating room for proposed aortic valve replacement and possible left ventricular myectomy. Findings at the time of surgery: The aortic valve was bicuspid with fusion of the left and right leaflets. The septum did not appear overly thick however we did perform a left ventricular myectomy extending from the midpoint of the right coronary cusp towards the mitral valve. At the end of the myectomy I could easily see the papillary muscles through the left ventricular outflow tract. Patient weaned easily from cardiopulmonary bypass. There was chordal Richelle that was evident pre and post bypasswith a mean gradient of 7 mmHg across the LVOT at the conclusion of the operation. Left ventricularfunction was very hyperdynamic with an ejection fraction of 80% plus. Conduct of cardiopulmonary bypass: Routine aortic and venous cannulation was accomplished. Antegrade and retrograde cardioplegia cannulas were utilized with cold induction of arrest. Body temperaturewas maintained at normothermia. Total pump time was 109 minutes. Cross-clamp time was 82 minutes. Technical procedure used: The patient was placed on the table in a supine position and adequate general endotracheal anesthesia was induced. Appropriate monitoring lines were placed and the patient was prepped and draped in the usual fashion. Median sternotomy was performed and heparin was administered to the patient. Pericardium was opened in the midline. Routine aortic and venous cannulation was accomplished. Antegrade and retrograde cardioplegia cannulas were placed within the heart and cardiopulmonary bypass was initiated. The ascending aorta was crossclamped. Antegrade and retrograde cardioplegia were instilled to achieve arrest of the heart. Slush was used for topical cooling of the heart. The aortic root was opened with an oblique incision and the valve was examined with the above findings. The leaflets were excised and calcium was debrided from the annulus. Traction stitches were placed in the right coronary cusp to allow us to elevate the annulus and then the ventricular septum was examined. The septum itself did not appear to be particularly thickened however we decided toproceed with septal myectomy. A 15 blade was used to make an incision beginning at the midpoint of the right coronary cusp towards the mitral valve laterally. Scissors were used to create sharp dissection to dissect this down through the septum extending towards the apex of the heart. And a large pi kelley of myocardium was excised creating a sizable tunnel of muscle. We then used a pituitary forcepsto excise muscle deeper into the left ventricle and up to the base of the papillary muscle. We continued resecting muscle until the papillary muscles were easily seen without having to move the septum for visualization. At this point we were easily able to pass a 21 sizer through the left ventricular outflow tract. It should be noted that there was no evidence of septal scarring, which would be acommon sign of chronic LVOT obstruction. We now continue to place pledgeted mattress sutures in theaortic annulus circumferentially with pledgets on the ventricular side. The valve was sized to a 23Inspiris valve. The valve stitches were brought up through the sewing ring of the valve which was lo wered into position and secured in place. There was an excellent seat of the valve and the annulus.The aortotomy was then closed in 2 layers using running 5- 0 Prolene suture. Hotshot was then administered first retrograde, then antegrade, then sequentially antegrade and retrograde till the heart began to beat aortic cross-clamp was removed. Epicardial pacing wires were placed in the right atriumright ventricle and brought up through the anterior abdominal wall. 2 chest tubes were placed within the chest and the lungs were reinflated. TON was used to guide de-airing of the heart. When adequate de-airing had been accomplished antegrade and retrograde cardioplegia cannulas removed and the sit es were oversewn with 5-0 Prolene suture. Patient was then easily weaned from cardiopulmonary bypass. TON showed very hyperdynamic left ventricular function with some evidence of visual chordal Richelle in the region of the LVOT. LVOT gradients after weaning from bypass were 7 mmHg. Protamine was administered for reversal of heparin effect. At the conclusion of protamine administration the aortic cannula was removed and the site was oversewn with 5-0 Prolene suture. Pericardium was inspected for bleeding and when hemostasis was assured sternum was approximated using surgical steel cables. Subcutaneous tissues irrigated and closed using running 0 Vicryl suture. Skin was closed using running subcuticular stitch of 4-0 Monocryl. Patient tolerated the procedure and was transported to the cardiac surgical intensive care unit in stable condition. Needle and sponge counts reported correct at the conclusion of the procedure. documented in this encounter Plan of Treatment Upcoming Encounters Date Type Department Care Team (Latest Contact Info) Description 12/25/2023 9:[address] [place] [phone] Xavier Malhotra MD [facility] [place] [address] 12/29/2023 Hospital Encounter [place] [phone] Xavier Malhotra MD [facility] [place] [address] Paroxysmal atrial fibrillation 12/29/2023 7:30 AM EDT - 12/29/2023 12:00 PM EDT Surgery [place] [phone] Xavier Malhotra MD [facility] [place] [address] ELECTROPHYSIOLOGY PROCEDURE 01/14/2024 10:40 AM EDT Office Visit Cardiology at [address] [phone] Carmen Castaneda PA [facility] [place] [address] Scheduled Procedures Name Priority Associated Diagnoses Date/Ti me TRANSESOPHAGEAL ECHO DURING CATH/EP PROCEDURE Paroxysmal atrial fibrillation 12/29/2023 7:30 AM EDT Scheduled Referrals Name Type Priority Associated Diagnoses Orde r Schedule Referral to Home Health Outpatient Referral Routine S/P AVR Ordered: 02/06/2022 Referral to Cardiac Rehab Outpatient Referral Routine S/P AVR Ordered: 02/06/2022 documented as of this encounter Goals Goal Patient Goal Type Associated Problems Recent Progress Patient-Stated? Author DH Home Medication Compliance and Understanding Patient Facing Action Plan Lani Love, [facility] Note: Maintain control of disease for as long as possible as assessed by tumor marker levels and scans in clinic every 3 to 6 months documented as of this encounter Procedures Procedure Name Priority Date/Time Associated Diagnosis Comments HC PROTHROMBIN TIME Routine 02/06/2022 3 :45 AM EDT HC VENIPUNCTURE Routine 02/06/2022 3:45 AM EDT HC CORTISOL, BLOOD Routine 02/06/2022 3: 45 AM EDT HEPATIC FUNCTION PANEL Routine 3:45 AM EDT HC PROTHROMBIN TIME Routine 02/05/2022 4 :08 AM EDT HC VENIPUNCTURE Routine 02/05/2022 4:08 AM EDT HC CORTISOL, BLOOD Routine 02/05/2022 4: 08 AM EDT HC VENIPUNCTURE Routine 02/04/2022 11:58 AM EDT HC VENIPUNCTURE Routine 02/04/2022 3:00 AM EDT HC CORTISOL, BLOOD Routine 02/04/2022 3: 00 AM EDT HC VENIPUNCTURE Routine 02/03/2022 5:21 AM EDT HC CORTISOL, BLOOD Routine 02/03/2022 5: 21 AM EDT HC POTASSIUM Routine 02/02/2022 3:13 AM EDT HC CORTISOL, BLOOD Routine 02/02/2022 3: 13 AM EDT XR CHEST PA AND LATERAL Routine 02/02/20 12:12 PM EDT HEMOGRAM Routine 02/01/2022 3:16 AM EDT DIFFERENTIAL, AUTOMATED Routine 02/02/20 3:16 AM EDT HC CBC,PLT & AUTO DIFF Routine 3:16 AM EDT HC VENIPUNCTURE Routine 02/01/2022 3:16 AM EDT EKG 12-LEAD Routine 01/31/2022 3:58 PM EDT S/P AVR LAVENDER TUBE HOLD Routine 01/31/2022 3: 37 AM EDT HC VENIPUNCTURE Routine 01/31/2022 3:37 AM EDT BASIC METABOLIC PANEL Routine 01/31/2022 3:37 AM EDT POCT GLUCOSE Routine 01/30/2022 11:04 AM EDT POCT GLUCOSE Routine 01/30/2022 7:56 AM EDT POCT GLUCOSE Routine 01/30/2022 4:14 AM EDT HEMOGRAM Routine 01/30/2022 2:09 AM EDT DIFFERENTIAL, AUTOMATED Routine 01/31/20 2:09 AM EDT HC CBC,PLT & AUTO DIFF Routine 2:09 AM EDT BASIC METABOLIC PANEL Routine 01/30/2022 2:09 AM EDT POCT GLUCOSE Routine 01/29/2022 11:19 PM EDT POCT GLUCOSE Routine 01/29/2022 9:06 PM EDT EXTUBATE Routine 01/29/2022 3:07 PM EDT HC TROPONIN T STAT 01/29/2022 3:05 PM EDT HC HEMOGLOBIN, BLOOD Routine 01/29/2022 3:05 PM EDT HC POTASSIUM Routine 01/29/2022 3:05 PM EDT BLOOD GAS ARTERIAL POC Routine 3:02 PM EDT POCT GLUCOSE Routine 01/29/2022 2:36 PM EDT POCT GLUCOSE Routine 01/29/2022 1:14 PM EDT XR CHEST ONE VIEW STAT 01/29/2022 1:0 9 PM EDT HC TROPONIN T STAT 01/29/2022 1:09 PM EDT BLOOD GAS ARTERIAL POC Routine 1:05 PM EDT EKG 12-LEAD STAT 01/29/2022 1:04 PM EDT S/P AVR BLOOD GAS ARTERIAL POC Routine 11:38 AM EDT HEMOGRAM STAT 01/29/2022 11:30 AM EDT DIFFERENTIAL, AUTOMATED STAT 01/30/20 11:30 AM EDT HC PARTIAL THROMBOPLASTIN TIME Routine 01/29/2022 11:30 AM EDT HC PROTHROMBIN TIME STAT 01/29/2022 1 1:30 AM EDT HC FIBRINOGEN TITER STAT 01/29/2022 1 1:30 AM EDT HC CBC,PLT & AUTO DIFF STAT 11:30 AM EDT BLOOD GAS ARTERIAL POC Routine 10:25 AM EDT HC HEMOGLOBIN, BLOOD Routine 01/29/2022 10:25 AM EDT HC FIBRINOGEN TITER Routine 01/29/2022 1 0:25 AM EDT HC PLATELET COUNT Routine 01/29/2022 10: 25 AM EDT SPECIMEN TO PATHOLOGY Routine 01/29/2022 10:06 AM EDT SURGICAL PATHOLOGY REPORT Routine 01/29/2022 10:03 AM EDT SPECIMEN TO PATHOLOGY Routine 01/29/2022 10:03 AM EDT BLOOD GAS ARTERIAL POC Routine 9:58 AM EDT BLOOD GAS ARTERIAL POC Routine 9:35 AM EDT BLOOD GAS VENOUS POC Routine 01/29/2022 9:34 AM EDT BLOOD GAS ARTERIAL POC Routine 8:35 AM EDT Fabrizio Vent [facility] ([id number]) 01/29/2022 7:37 AM EDT , RICHELLE Replacement Prosthetic Aortic Valve Open W Cardiopulmonary Bypass Homogrf/Stent ([id number]) 01/29/2022 7:37 AM EDT , RICHELLE TRANSESOPHAGEAL ECHOCARDIOGRAM IN THE OR Routine 01/29/2022 7:18 AM EDT Aortic valve stenosis, etiology of cardiac valve disease unspecified Systolic anterior movement of mitral valve EKG 12-LEAD Routine 01/29/2022 7:10 AM EDT Aortic valve stenosis, etiology of cardiac valve disease unspecified PREPARE RBC STAT 01/29/2022 6:40 AM EDT @VENTRICULOMYOTOMY-MYEC NE FOR IDIOPAT HYPERTROP SUBAORTIC STENOSIS Routine 01/29/2022 5:58 AM EDT @REPLACE AORTIC VALVE, OPEN, W\CPB, W\PROSTHETIC VALVE Routine 01/29/2022 5:58 AM EDT documented in this encounter Results * (ABNORMAL) Prothrombin Time (02/06/2022 3:45 AM EDT) Prothrombin Time 25.7(H) 9.4 - 12.[address] [facility] International Normalization Ratio 2.3 [facility] Comment: An INR <2.0 indicates adequate procoagulant activity for hemostasis in most patients without underlying bleeding disorders, though the INR may not adequately reflect hemostatic capacity in patients with liver disease and synthetic impairment. The recommended target INR range for therapeutic anticoagulation is 2.0 ? 3.0 for most applications, though lower and higher ranges may be appropriate depending on clinical circumstances. Blood 02/06/2022 3:45 AM EDT 02/06/2022 3:55 AM EDT Narrative Resulting Agency Comment Spec In Lab Efrain Bah MD HEMATOLOGY ORDERAB LES Performing Organization Address [facility] Co de Phone Number [facility] [place] [address] * Cortisol (02/06/2022 3:45 AM EDT) Cortisol 24.8 mcg/dL [facility] Comment: Reference ranges: ??AM (6-10am): ??4.8-19.5 mcg/dL ??PM (4-8pm) : ??2.5-11.9 mcg/dL Blood 02/06/2022 3:45 AM EDT 02/06/2022 3:55 AM EDT Narrative Resulting Agency Comment Spec In Lab Efrain Bah MD CHEMISTRY ORDERABL ES Performing Organization Address [facility] de Phone Number [facility] [place] [address] * Potassium (02/06/2022 3:45 AM EDT) Potassium 3.6 3.5 - 5.0 mmol/L [facility] Comment: Please note: ??Patients with WBC >100,000 may have falsely elevated Potassium levels. ??For accurate Potassium quantification in these patients send serum separator tube (gold top) for subsequent determinations. ??Contact the Clinical Chemistry Laboratory if there are any questions. Blood 02/06/2022 3:45 AM EDT 02/06/2022 3:55 AM EDT Narrative Resulting Agency Comment Spec In Lab Efrain Bah MD CHEMISTRY ORDERABL ES Performing Organization Address [facility] Co de Phone Number [facility] [place] [address] * (ABNORMAL) Hepatic Function Panel (02/06/2022 3:45 AM EDT) Protein, Total 5.9(L) 6.1 - 8.0 g/dL [facility] Albumin 3.7 3.2 - 5.2 g/dL [facility] Aspartate Aminotransferase 16 0 - 30 unit/L [facility] Alanine Aminotransferase 27 0 - 30 unit/L [facility] Alkaline Phosphatase 81 35 - 105 unit/L [facility] Bilirubin, Total 0.4 0.2 - 1.3 mg/dL [facility] Bilirubin, Direct 0.1 0.0 - 0.3 mg/dL [facility] Blood 02/06/2022 3:45 AM EDT 02/06/2022 3:55 AM EDT Narrative Resulting Agency Comment Spec In Lab Efrain Bah MD CHEMISTRY ORDERABL ES Performing Organization Address [facility] Phone Number [facility] [place] [address] * (ABNORMAL) Prothrombin Time (02/05/2022 4:08 AM EDT) Prothrombin Time 13.9(H) 9.4 - 12.[address] [facility] International Normalization Ratio 1.2 [facility] Comment: An INR <2.0 indicates adequate procoagulant activity for hemostasis in most patients without underlying bleeding disorders, though the INR may not adequately reflect hemostatic capacity in patients with liver disease and synthetic impairment. The recommended target INR range for therapeutic anticoagulation is 2.0 ? 3.0 for most applications, though lower and higher ranges may be appropriate depending on clinical circumstances. Blood 02/05/2022 4:08 AM EDT 02/05/2022 4:18 AM EDT Narrative Resulting Agency Comment Spec In Lab Efrain Bah MD HEMATOLOGY ORDERAB LES Performing Organization Address [facility] Co de Phone Number [facility] [place] [place] [address] * Cortisol (02/05/2022 4:08 AM EDT) Cortisol 37.0 mcg/dL [facility] Comment: Reference ranges: ??AM (6-10am): ??4.8-19.5 mcg/dL ??PM (4-8pm) : ??2.5-11.9 mcg/dL Blood 02/05/2022 4:08 AM EDT 02/05/2022 4:18 AM EDT Narrative Resulting Agency Comment Spec In Lab Efrain Bah MD CHEMISTRY ORDERABL ES Performing Organization Address [facility] Co de Phone Number [facility] [place] [place] [address] * Potassium (02/05/2022 4:08 AM EDT) Potassium 3.7 3.5 - 5.0 mmol/L [facility] Comment: Please note: ??Patients with WBC >100,000 may have falsely elevated Potassium levels. ??For accurate Potassium quantification in these patients send serum separator tube (gold top) for subsequent determinations. ??Contact the Clinical Chemistry Laboratory if there are any questions. Blood 02/05/2022 4:08 AM EDT 02/05/2022 4:18 AM EDT Narrative Resulting Agency Comment Spec In Lab Efrain Bah MD CHEMISTRY ORDERABL ES Performing Organization Address [facility] de Phone Number [facility] [place] [address] * (ABNORMAL) Prothrombin Time (02/04/2022 11:58 AM EDT) Prothrombin Time 13.3(H) 9.4 - 12.[address] [facility] International Normalization Ratio 1.2 [facility] Comment: An INR <2.0 indicates adequate procoagulant activity for hemostasis in most patients without underlying bleeding disorders, though the INR may not adequately reflect hemostatic capacity in patients with liver disease and synthetic impairment. The recommended target INR range for therapeutic anticoagulation is 2.0 ? 3.0 for most applications, though lower and higher ranges may be appropriate depending on clinical circumstances. Blood 02/04/2022 11:5 8 AM EDT 02/04/2022 12:04 PM EDT Narrative Resulting Agency Comment Spec In Lab Efrain Bah MD HEMATOLOGY ORDERAB LES Performing Organization Address [facility]/ZIP Co de Phone Number [facility] [place] [place] [address] * Cortisol (02/04/2022 3:00 AM EDT) Cortisol >63.0 mcg/dL [facility] Comment: Reference ranges: ??AM (6-10am): ??4.8-19.5 mcg/dL ??PM (4-8pm) : ??2.5-11.9 mcg/dL Blood 02/04/2022 3:00 AM EDT 02/04/2022 3:15 AM EDT Narrative Resulting Agency Comment Spec In Lab Efrain Bah MD CHEMISTRY ORDERABL ES Performing Organization Address [facility] Co de Phone Number [facility] [place] [address] * Potassium (02/04/2022 3:00 AM EDT) Potassium 4.1 3.5 - 5.0 mmol/L [facility] Comment: Please note: ??Patients with WBC >100,000 may have falsely elevated Potassium levels. ??For accurate Potassium quantification in these patients send serum separator tube (gold top) for subsequent determinations. ??Contact the Clinical Chemistry Laboratory if there are any questions. Blood 02/04/2022 3:00 AM EDT 02/04/2022 3:15 AM EDT Narrative Resulting Agency Comment Spec In Lab Efrain Bah MD CHEMISTRY ORDERABL ES Performing Organization Address [facility] Co de Phone Number [facility] [place] [address] * Cortisol (02/03/2022 5:21 AM EDT) Cortisol 6.7 mcg/dL [facility] Comment: Reference ranges: ??AM (6-10am): ??4.8-19.5 mcg/dL ??PM (4-8pm) : ??2.5-11.9 mcg/dL Blood 02/03/2022 5:21 AM EDT 02/03/2022 5:38 AM EDT Narrative Resulting Agency Comment Spec In Lab Efrain Bah MD CHEMISTRY ORDERABL ES Performing Organization Address [facility] Co de Phone Number [facility] [place] [address] * Potassium (02/03/2022 5:21 AM EDT) Potassium 4.0 3.5 - 5.0 mmol/L [facility] Comment: Please note: ??Patients with WBC >100,000 may have falsely elevated Potassium levels. ??For accurate Potassium quantification in these patients send serum separator tube (gold top) for subsequent determinations. ??Contact the Clinical Chemistry Laboratory if there are any questions. Blood 02/03/2022 5:21 AM EDT 02/03/2022 5:38 AM EDT Narrative Resulting Agency Comment Spec In Lab Efrain Bah MD CHEMISTRY ORDERABL ES Performing Organization Address [facility] Co de Phone Number [facility] [place] [address] * Cortisol (02/02/2022 3:13 AM EDT) Cortisol 5.4 mcg/dL [facility] Comment: Reference ranges: ??AM (6-10am): ??4.8-19.5 mcg/dL ??PM (4-8pm) : ??2.5-11.9 mcg/dL Blood 02/02/2022 3:13 AM EDT 02/02/2022 3:25 AM EDT Narrative Resulting Agency Comment Spec In Lab Efrain Bah MD CHEMISTRY ORDERABL ES Performing Organization Address [facility] Co de Phone Number [facility] [place] [address] * Potassium (02/02/2022 3:13 AM EDT) Potassium 3.7 3.5 - 5.0 mmol/L [facility] Comment: Please note: ??Patients with WBC >100,000 may have falsely elevated Potassium levels. ??For accurate Potassium quantification in these patients send serum separator tube (gold top) for subsequent determinations. ??Contact the Clinical Chemistry Laboratory if there are any questions. Blood 02/02/2022 3:13 AM EDT 02/02/2022 3:25 AM EDT Narrative Resulting Agency Comment Spec In Lab Efrain Bah MD CHEMISTRY ORDERABL ES Performing Organization Address [facility] Co de Phone Number [facility] [place] [address] * XR Chest PA & Lateral (Generic) (02/01/2022 12:12 PM EDT) Anatomical Region Laterality Modality Chest N/A Digital Radiogra phy Impressions 02/01/2022 2:11 PM EDT New small bilateral pleural effusions. Associated bibasilar compression atelectasis. I have personally reviewed the image(s) and the resident's interpretation and agree with the findings, Tammi Rea MD at 02/01/2022 2:11 PM Thank you for letting us participate in the care of this patient. ??If you are a health care provider and have any questions regarding this report, please contact the number below. ??For patients who have questions please contact the health direct care supervisor that requested your imaging first. ? Narrative 02/01/2022 2:11 PM EDT EXAMINATION: XR CHEST PA AND LATERAL (GENERIC) CLINICAL HISTORY: avr TECHNIQUE: PA and lateral views of the chest COMPARISON: Chest radiograph 01/29/2022 FINDINGS: Prosthetic aortic valve replacement in place. Intact median sternotomy wires. Epicardial leads are still present. Mild basilar compression atelectasis. New small bilateral pleural effusions. No pneumothorax. Cardiomediastinal silhouette, kassie, pulmonary vascular markings are within normal limits. No acute osseous abnormality. Procedure Note Tammi Oquendo MD - 02/01/2022 EXAMINATION: XR CHEST PA AND LATERAL (GENERIC) CLINICAL HISTORY: avr TECHNIQUE: PA and lateral views of the chest COMPARISON: Chest radiograph 01/29/2022 FINDINGS: Prosthetic aortic valve replacement in place. Intact median sternotomywires. Epicardial leads are still present. Mild basilar compression atelectasis. New small bilateral pleuraleffusions. No pneumothorax. Cardiomediastinal silhouette, kassie, pulmonary vascularmarkings are within normal limits. No acute osseous abnormality. IMPRESSION New small bilateral pleural effusions. Associated bibasilar compression atelectasis. I have personally reviewed the image(s) and the resident's interpretationand agree with the findings, Tammi Rea MD at 02/01/2022 2:11PM Thank you for letting us participate in the care of this patient. If youare a health care provider and have any questions regarding this report,please contact the number below. For patients who have questions please contactthe health direct care supervisor that requested your imaging first. Electronically signed by: Tammi Rea MD, [facility] ([phone]), at 02/01/2022 2:11 PM Efrain Bah MD IMG DX ORDERABLES * (ABNORMAL) Differential, Automated (02/01/2022 3:16 AM EDT) Neutrophil % 74.5 % [facility] Neutrophil Absolute 6.64(H) 1.70 - 6.10 x10(3)/mc L [facility] Lymph % 14.8 % [facility] Lymphocytes Abs 1.3 0.9 - 3.2 x10(3)/ L [facility] Monocyte % 9.4 % [facility] Monocyte Abs 0.8 0.3 - 0.9 x10(3)/[facility] Eos % 0.2 % [facility] Eosinophils Abs 0.0 0.0 - 0.4 x10(3)/[facility] Basophil % 0.3 % [facility] Baso Absolute 0.0 0.0 - 0.1 x10(3)/[facility] Immature Gran % 0.80 % [facility] Comment: Immature granulocytes(IG's)percentage and absolute count will include metamyelocytes, myelocytes, and promyelocytes. Blood smears from CBCs yielding IG's will be scanned manually for concordance. If this scan disagrees with the automated IG or if promyelocytes are noted, a manual differential will be performed. Immature Gran Absolute 0.07(H) 0.00 - 0.04 x10(3)/ L [facility] Blood 02/01/2022 3:16 AM EDT 02/01/2022 3:36 AM EDT Narrative Resulting Agency Comment Spec In Lab [facility] SEARS HEMATOLOGY ORDERABLE S [facility] [place] [address] * (ABNORMAL) Hemogram (02/01/2022 3:16 AM EDT) White Blood Cell 8.9 4.0 - 9.5 x10(3)/ L [facility] Red Blood Cell 2.53(L) 4.00 - 5.21 x10(6)/mc L [facility] Hemoglobin 9.6(L) 11.7 - 15.5 g/dL [facility] Hematocrit 27.4(L) 35.7 - 45.8 % [facility] Mean Cell Volume 108.3(H) 82.6 - 94.[address] [facility] Mean Cell Hemoglobin 37.9(H) 27.1 - 32.[address] [facility] Mean Cell Hemoglobin Concentration 35.0 31.7 - 35.0 g/dL [facility] Platelet 145 145 - 357 x10(3)/[facility] RDW Standard Deviation 46.8(H) 37.0 - 46.0 [facility] RDW coefficient of variation 11.9 11.5 - 14.1 % [facility] Mean Platelet Volume 9.9 7.6 - 12.9 [facility] NRBC% auto 0.0 % [facility] NRBC Absolute 0.000 0.000 - 0.000 x10(3)/[facility] Blood 02/01/2022 3:16 AM EDT 02/01/2022 3:36 AM EDT Narrative Resulting Agency Comment Spec In Lab [facility] SEARS HEMATOLOGY ORDERABLE S [facility] [place] [place] [address] * (ABNORMAL) Basic Metabolic Panel (non-fasting) (02/01/2022 3:16 AM EDT) Glucose 95 65 - 199 mg/dL [facility] Comment:Diabetes: >=200 mg/d L plus symptoms Blood Urea Nitrogen 10 8 - 18 mg/dL [facility] Creatinine 0.64(L) 0.70 - 1.20 mg/dL [facility] Sodium 136 135 - 145 mmol/L [facility] Potassium 4.2 3.5 - 5.0 mmol/L [facility] Comment: Please note: ??Patients with WBC >100,000 may have falsely elevated Potassium levels. ??For accurate Potassium quantification in these patients send serum separator tube (gold top) for subsequent determinations. ??Contact the Clinical Chemistry Laboratory if there are any questions. Chloride 103 98 - 107 mmol/L [facility] Carbon Dioxide 24 22 - 31 mmol/L [facility] Anion Gap 9 5 - 15 mmol/L [facility] Calcium 8.7 8.5 - 10.5 mg/dL [facility] Est Glomerular Filtration Rate 100 >=60 mL/min/1. 73 m?? [facility] Comment: This patient's estimated GFR [...] and symptoms in addition to eGFR. Blood 02/01/2022 3:16 AM EDT 02/01/2022 3:36 AM EDT Narrative Resulting Agency Comment Spec In Lab Efrain Bah MD CHEMISTRY ORDERABL ES [facility] [place] [address] * EKG 12 Lead (01/31/2022 3:58 PM EDT) Ventricular rate 80 BPM MUSE SYSTEM QRS Duration 130 ms MUSE SYSTEM Q-T Interval 416 ms MUSE SYSTEM QTC Calculated (Bezet) 479 ms MUSE SYSTEM Calculated R Bradford 19 degrees MUSE SYSTEM Calculated T Bradford 25 degrees MUSE SYSTEM INTERPRETATION ? ectopic atrial rhythm (p waves in v5) versus junctional rhythm Right bundle branch block Abnormal ECG Confirmed by MD Jed, Saleem ([id number]) on 02/01/2022 8:38:05 AM MUSE SYSTEM 01/31/2022 3:58 PM EDT 02/01/2022 8:38 AM EDT Efrain Bah MD ECG ORDERABLES MUSE SYSTEM * Lavender Tube HOLD (01/31/2022 3:37 AM EDT) Lavender Hold Sample in lab. [facility] Blood Venous Draw / Unknown 01/31/2022 3:37 AM EDT 01/31/2022 4:31 AM EDT [facility] SEARS HEMATOLOGY ORDERABLE S Performing Organization Address City/[facility]/ZIP Co de Phone Number [facility] [place] [address] * (ABNORMAL) Basic Metabolic Panel (non-fasting) (01/31/2022 3:37 AM EDT) Glucose 89 65 - 199 mg/dL [facility] Comment:Diabetes: >=200 mg/d L plus symptoms Blood Urea Nitrogen 14 8 - 18 mg/dL [facility] Creatinine 0.67(L) 0.70 - 1.20 mg/dL [facility] Sodium 130(L) 135 - 145 mmol/L [facility] Potassium 4.1 3.5 - 5.0 mmol/L [facility] Comment: Please note: ??Patients with WBC >100,000 may have falsely elevated Potassium levels. ??For accurate Potassium quantification in these patients send serum separator tube (gold top) for subsequent determinations. ??Contact the Clinical Chemistry Laboratory if there are any questions. Chloride 100 98 - 107 mmol/L [facility] Carbon Dioxide 23 22 - 31 mmol/L [facility] Anion Gap 7 5 - 15 mmol/L [facility] Calcium 8.7 8.5 - 10.5 mg/dL ST [facility] Est Glomerular Filtration Rate 99 >=60 mL/min/1. 73 m?? [facility] Comment: This patient's estimated GFR [...] and symptoms in addition to eGFR. Blood 01/31/2022 3:37 AM EDT 01/31/2022 4:30 AM EDT Narrative Resulting Agency Comment Spec In Lab Efrain Bah MD CHEMISTRY ORDERABL ES Performing Organization Address City/[facility]/ZIP Co de Phone Number [facility] [place] [address] * Magnesium (01/31/2022 3:37 AM EDT) Magnesium 0.73 0.69 - 1.07 mmol/L [facility] Blood 01/31/2022 3:37 AM EDT 01/31/2022 4:30 AM EDT Narrative Resulting Agency Comment Spec In Lab Efrain Bah MD CHEMISTRY ORDERABL ES Performing Organization Address [facility]/ZIP Co de Phone Number [facility] [place] [address] * POCT Glucose (01/30/2022 11:04 AM EDT) Glucose, POC 118 65 - 199 mg/dL [facility] Comment: Supplemental ranges: <140 mg/dL before meals <180 mg/dL all other times of the day Blood 01/30/2022 11:0 4 AM EDT 01/30/2022 11:04 AM EDT Efrain Bah MD POINT OF CARE TEST ORDERABLES Performing Organization Address [facility] Co de Phone Number [facility] [place] [address] * POCT Glucose (01/30/2022 7:56 AM EDT) Glucose, POC 128 65 - 199 mg/dL [facility] Comment: Supplemental ranges: <140 mg/dL before meals <180 mg/dL all other times of the day Blood 01/30/2022 7:56 AM EDT 01/30/2022 7:56 AM EDT Efrain Bah MD POINT OF CARE TEST ORDERABLES Performing Organization Address [facility] Co de Phone Number [facility] [place] [address] * POCT Glucose (01/30/2022 4:14 AM EDT) Glucose, POC 111 65 - 199 mg/dL [facility] Comment: Supplemental ranges: <140 mg/dL before meals <180 mg/dL all other times of the day Blood 01/30/2022 4:14 AM EDT 01/30/2022 4:14 AM EDT Efrain Bah MD POINT OF CARE TEST ORDERABLES Performing Organization Address City/[facility] Co de Phone Number [facility] [place] [address] * (ABNORMAL) Differential, Automated (01/30/2022 2:09 AM EDT) Neutrophil % 85.7 % [facility] Neutrophil Absolute 10.11(H) 1.70 - 6.10 x10(3)/mc L [facility] Lymph % 6.3 % [facility] Lymphocytes Abs 0.7(L) 0.9 - 3.2 x10(3)/ L [facility] Monocyte % 7.4 % [facility] Monocyte Abs 0.9 0.3 - 0.9 x10(3)/ L [facility] Eos % 0.0 % [facility] Eosinophils Abs 0.0 0.0 - 0.4 x10(3)/ L [facility] Basophil % 0.2 % [facility] Baso Absolute 0.0 0.0 - 0.1 x10(3)/[facility] Immature Gran % 0.40 % [facility] Comment: Immature granulocytes(IG's)percentage and absolute count will include metamyelocytes, myelocytes, and promyelocytes. Blood smears from CBCs yielding IG's will be scanned manually for concordance. If this scan disagrees with the automated IG or if promyelocytes are noted, a manual differential will be performed. Immature Gran Absolute 0.05(H) 0.00 - 0.04 x10(3)/ L [facility] Blood 01/30/2022 2:09 AM EDT 01/30/2022 2:17 AM EDT Narrative Resulting Agency Comment Spec In Lab [facility] SEARS HEMATOLOGY ORDERABLE S [facility] [place] [address] * (ABNORMAL) Hemogram (01/30/2022 2:09 AM EDT) White Blood Cell 11.8(H) 4.0 - 9.5 x10(3)/[facility] Red Blood Cell 2.94(L) 4.00 - 5.21 x10(6)/ L [facility] Hemoglobin 11.0(L) 11.7 - 15.5 g/dL [facility] Hematocrit 30.7(L) 35.7 - 45.8 % [facility] Mean Cell Volume 104.4(H) 82.6 - 94.[address] [facility] Mean Cell Hemoglobin 37.4(H) 27.1 - 32.[address] [facility] Mean Cell Hemoglobin Concentration 35.8(H) 31.7 - 35.0 g/dL [facility] Platelet 151 145 - 357 x10(3)/mc L [facility] RDW Standard Deviation 46.4(H) 37.0 - 46.[address] [facility] RDW coefficient of variation 12.0 11.5 - 14.1 % [facility] Mean Platelet Volume 9.4 7.6 - 12.[address] [facility] NRBC% auto 0.0 % [facility] NRBC Absolute 0.000 0.000 - 0.000 x10(3)/mc L [facility] Blood 01/30/2022 2:09 AM EDT 01/30/2022 2:17 AM EDT Narrative Resulting Agency Comment Spec In Lab [facility] SEARS HEMATOLOGY ORDERABLE S Performing Organization Address City/State/[facility] Co de Phone Number [facility] [place] [address] * (ABNORMAL) Basic Metabolic Panel (non-fasting) (01/30/2022 2:09 AM EDT) Glucose 129 65 - 199 mg/dL [facility] Comment:Diabetes: >=200 mg/d L plus symptoms Blood Urea Nitrogen 9 8 - 18 mg/dL [facility] Creatinine 0.51(L) 0.70 - 1.20 mg/dL [facility] Sodium 136 135 - 145 mmol/L [facility] Potassium 4.4 3.5 - 5.0 mmol/L [facility] Comment: Please note: ??Patients with WBC >100,000 may have falsely elevated Potassium levels. ??For accurate Potassium quantification in these patients send serum separator tube (gold top) for subsequent determinations. ??Contact the Clinical Chemistry Laboratory if there are any questions. Chloride 105 98 - 107 mmol/L [facility] Carbon Dioxide 22 22 - 31 mmol/L [facility] Anion Gap 9 5 - 15 mmol/L [facility] Calcium 8.3(L) 8.5 - 10.5 mg/dL [facility] Est Glomerular Filtration Rate 106 >=60 mL/min/1. 73 m?? [facility] Comment: This patient's estimated GFR [...] and symptoms in addition to eGFR. Blood 01/30/2022 2:09 AM EDT 01/30/2022 2:17 AM EDT Narrative Resulting Agency Comment Spec In Lab Efrain Bah MD CHEMISTRY ORDERABL ES Performing Organization Address City/[facility]/ZIP Co de Phone Number [facility] [place] [address] * POCT Glucose (01/29/2022 11:19 PM EDT) Glucose, POC 128 65 - 199 mg/dL [facility] Comment: Supplemental ranges: <140 mg/dL before meals <180 mg/dL all other times of the day Blood 01/29/2022 11:1 9 PM EDT 01/29/2022 11:19 PM EDT Efrain Bah MD POINT OF CARE TEST ORDERABLES [facility] [place] [address] * POCT Glucose (01/29/2022 9:06 PM EDT) Glucose, POC 129 65 - 199 mg/dL [facility] Comment: Supplemental ranges: <140 mg/dL before meals <180 mg/dL all other times of the day Blood 01/29/2022 9:06 PM EDT 01/29/2022 9:06 PM EDT Efrain Bah MD POINT OF CARE TEST ORDERABLES [facility] [place] [address] * (ABNORMAL) Troponin (01/29/2022 3:05 PM EDT) Troponin-T, High Sensitivity 524(H) <=14 ng/L [facility] Comment: This patient's troponin T [...] troponin value can be found in the [facility] Laboratory Test Catalog Troponin - [facility] Laboratory Test Catalog Reference: Fourth [place] Definition of Myocardial Infarction. Journal of the [place] [employer] 2018;72:0557-9593 Blood 01/29/2022 3:05 PM EDT 01/29/2022 3:15 PM EDT Narrative Resulting Agency Comment Spec In Lab Efrain Bah MD CHEMISTRY ORDERABL ES Performing Organization Address [facility] Co de Phone Number [facility] [place] [address] * (ABNORMAL) Hemoglobin (01/29/2022 3:05 PM EDT) Hemoglobin 11.3(L) 11.7 - 15.5 g/dL [facility] Blood 01/29/2022 3:05 PM EDT 01/29/2022 3:15 PM EDT Narrative Resulting Agency Comment Spec In Lab Efrain Bah MD HEMATOLOGY ORDERAB LES Performing Organization Address [facility] Co de Phone Number [facility] [place] [address] * Potassium (01/29/2022 3:05 PM EDT) Potassium 3.6 3.5 - 5.0 mmol/L [facility] Comment: Please note: ??Patients with WBC >100,000 may have falsely elevated Potassium levels. ??For accurate Potassium quantification in these patients send serum separator tube (gold top) for subsequent determinations. ??Contact the Clinical Chemistry Laboratory if there are any questions. Blood 01/29/2022 3:05 PM EDT 01/29/2022 3:15 PM EDT Narrative Resulting Agency Comment Spec In Lab Efrain Bah MD CHEMISTRY ORDERABL ES Performing Organization Address [facility] Co de Phone Number [facility] [place] [address] * (ABNORMAL) BLOOD GAS 2 ARTERIAL (01/29/2022 3:02 PM EDT) pH, Arterial 7.39 7.35 - 7.45 [facility] PCO2, Arterial 41 35 - [address] [facility] PO2, Arterial 98 85 - [address] [facility] Bicarbonate, Arterial 24.3 20.0 - 26.0 mmol/L [facility] Base Excess, Arterial -0.7 -3.0 - 3.0 mmol/L [facility] Hgb Blood Gas 12.3 11.7 - 15.5 g/dL [facility] Oxyhemoglobin, Arterial 96.0 94.0 - 97.0 % [facility] Carboxyhemoglob in, Arterial 0.3 % [facility] Comment: Nonsmokers: 0.5-1.5% COHB Smokers: Variable, but usually less than 10% Toxic: 20-30% COHB Lethal: Greater than 60% COHB Methemoglobin, Arterial 0.6 <=1.5 % [facility] Na Whole Blood 137 135 - 145 mmol/L [facility] K Whole Blood 3.4(L) 3.5 - 5.0 mmol/L [facility] Comment: Please note: Patients with WBC >100,000 may have falsely elevated Potassium levels. Contact the Clinical Chemistry Laboratory if there are any questions. ICa Whole Blood 1.15 1.15 - 1.33 mmol/L [facility] Comment: Note: ??Total bilirubin higher than 20 mg/dL may lead to falsely low ionized calcium. CL Whole Blood 108(H) 98 - 107 mmol/L [facility] Gluc Whole Bld 159 65 - 199 mg/dL [facility] Comment:Diabetes: >=200 mg/d L plus symptoms. Lactate WB 0.9 0.5 - 2.2 mmol/L [facility] Blood 01/29/2022 3:02 PM EDT 01/29/2022 3:02 PM EDT Efrain Bah MD POINT OF CARE TEST ORDERABLES [facility] [place] [address] * POCT Glucose (01/29/2022 2:36 PM EDT) Glucose, POC 132 65 - 199 mg/dL [facility] Comment: Supplemental ranges: <140 mg/dL before meals <180 mg/dL all other times of the day Blood 01/29/2022 2:36 PM EDT 01/29/2022 2:36 PM EDT Efrain Bah MD POINT OF CARE TEST ORDERABLES Performing Organization Address [facility] Co de Phone Number [facility] [place] [address] * POCT Glucose (01/29/2022 1:14 PM EDT) Glucose, POC 90 65 - 199 mg/dL [facility] Comment: Supplemental ranges: <140 mg/dL before meals <180 mg/dL all other times of the day Blood 01/29/2022 1:14 PM EDT 01/29/2022 1:14 PM EDT Efrain Bah MD POINT OF CARE TEST ORDERABLES Performing Organization Address [facility] de Phone Number [facility] [place] [address] * XR Chest One View (01/29/2022 1:09 PM EDT) Anatomical Region Laterality Modality Chest N/A Digital Radiogra phy Impressions 01/29/2022 1:32 PM EDT 1. ??Interval aortic valve replacement. 2. ??Mild pulmonary vascular congestion. 3. ??No pneumothorax. 4. ??Pulmonary artery catheter tip at the descending right interlobar pulmonary artery. I have personally reviewed the image(s) and the resident's interpretation and agree with the findings, Regi Michel MD at 01/29/2022 1:32 PM Thank you for letting us participate in the care of this patient. ??If you are a health care provider and have any questions regarding this report, please contact the number below. ??For patients who have questions please contact the health direct care supervisor that requested your imaging first. ? Electronically signed by: Regi Michel MD, [facility] ([phone]), at 01/29/2022 1:32 PM Narrative 01/29/2022 1:32 PM EDT EXAMINATION: XR CHEST ONE VIEW CLINICAL HISTORY: status post AVR TECHNIQUE: 1 view of the chest AP COMPARISON: Chest radiograph dated 01/07/2022. FINDINGS: Interval placement of sternotomy cables and aortic valve prosthesis. Endotracheal tube projecting approximately 4 cm proximal to the jaclyn. Right internal jugular central venous access for pulmonary artery catheter tip at the descending right interlobar pulmonary artery. Mediastinal drain projecting over the heart. Cardiomediastinal silhouette within normal limits allowing for technique. Mild indistinct pulmonary vasculature. No new focal airspace opacities. External hardware obscures costophrenic angles. No pneumothorax. No radiographically evident pleural effusions. No displaced fractures. Procedure Note Regi Michel MD - 01/29/2022 EXAMINATION: XR CHEST ONE VIEW CLINICAL HISTORY: status post AVR TECHNIQUE: 1 view of the chest AP COMPARISON: Chest radiograph dated 01/07/2022. FINDINGS: Interval placement of sternotomy cables and aortic valve prosthesis. Endotracheal tube projecting approximately 4 cm proximal to the jaclyn. Right internal jugular central venous access for pulmonary artery cathetertip at the descending right interlobar pulmonary artery. Mediastinal drain projecting over the heart. Cardiomediastinal silhouette within normal limits allowing for technique.Mild indistinct pulmonary vasculature. No new focal airspace opacities.External hardware obscures costophrenic angles. No pneumothorax. Noradiographically evident pleural effusions. No displaced fractures. IMPRESSION 1. Interval aortic valve replacement. 2. Mild pulmonary vascular congestion. 3. No pneumothorax. 4. Pulmonary artery catheter tip at the descending right interlobarpulmonary artery. I have personally reviewed the image(s) and the resident's interpretationand agree with the findings, Regi Michel MD at 01/29/2022 1:32 PM Thank you for letting us participate in the care of this patient. If youare a health care provider and have any questions regarding this report,please contact the number below. For patients who have questions please contactthe health direct care supervisor that requested your imaging first. Efrain Bah MD IMG DX ORDERABLES * (ABNORMAL) Troponin (01/29/2022 1:09 PM EDT) [facility] Troponin-T, High Sensitivity 542(H) <=14 ng/L [facility] Comment: This patient's troponin T [...] troponin value can be found in the [facility] Laboratory Test Catalog Troponin - [facility] Laboratory Test Catalog Reference: Fourth [place] Definition of Myocardial Infarction. Journal of the [place] [employer] 2018;72:0735-3750 Blood 01/29/2022 1:09 PM EDT 01/29/2022 1:21 PM EDT Narrative Resulting Agency Comment Spec In Lab Efrain Bah MD CHEMISTRY ORDERABL ES [facility] [place] [address] * (ABNORMAL) BLOOD GAS 2 ARTERIAL (01/29/2022 1:05 PM EDT) pH, Arterial 7.33(L) 7.35 - 7.45 [facility] PCO2, Arterial 42 35 - [address] [facility] PO2, Arterial 309(H) 85 - [address] [facility] Bicarbonate, Arterial 21.7 20.0 - 26.0 mmol/L [facility] Base Excess, Arterial -4.3(L) -3.0 - 3.0 mmol/L [facility] Hgb Blood Gas 11.8 11.7 - 15.5 g/dL [facility] Oxyhemoglobin, Arterial 98.0(H) 94.0 - 97.0 % [facility] Carboxyhemoglob in, Arterial 0.3 % [facility] Comment: Nonsmokers: 0.5-1.5% COHB Smokers: Variable, but usually less than 10% Toxic: 20-30% COHB Lethal: Greater than 60% COHB Methemoglobin, Arterial 0.8 <=1.5 % [facility] Na Whole Blood 140 135 - 145 mmol/L [facility] K Whole Blood 3.2(L) 3.5 - 5.0 mmol/L [facility] Comment: Please note: Patients with WBC >100,000 may have falsely elevated Potassium levels. Contact the Clinical Chemistry Laboratory if there are any questions. ICa Whole Blood 1.14(L) 1.15 - 1.33 mmol/L [facility] Comment: Note: ??Total bilirubin higher than 20 mg/dL may lead to falsely low ionized calcium. CL Whole Blood 112(H) 98 - 107 mmol/L [facility] Gluc Whole Bld 66 65 - 199 mg/dL [facility] Comment:Diabetes: >=200 mg/d L plus symptoms. Lactate WB 1.1 0.5 - 2.2 mmol/L [facility] FIO2 Art 100 % [facility] PF Ratio Art 309 [facility] Blood 01/29/2022 1:05 PM EDT 01/29/2022 1:05 PM EDT Efrain Bah MD POINT OF CARE TEST ORDERABLES [facility] [place] [address] * EKG 12 Lead (01/29/2022 1:04 PM EDT) Ventricular rate 70 BPM MUSE SYSTEM Atrial Rate 70 BPM MUSE SYSTEM P-R Interval 158 ms MUSE SYSTEM QRS Duration 106 ms MUSE SYSTEM Q-T Interval 468 ms MUSE SYSTEM QTC Calculated (Bezet) 505 ms MUSE SYSTEM Calculated P Bradford 73 degrees MUSE SYSTEM Calculated R Bradford -39 degrees MUSE SYSTEM Calculated T Bradford 95 degrees MUSE SYSTEM INTERPRETATION Normal sinus rhythm Left axis deviation Left ventricular hypertrophy with repolarization abnormality ( R in aVL , [place] product ) Cannot rule out Septal infarct , age undetermined Abnormal ECG When compared with ECG of 29-JAN-2022 07:10, (unconfirmed) QRS axis Shifted left Minimal criteria for Septal infarct are now Present T wave amplitude has increased in Inferior leads T wave inversion now evident in Lateral leads Confirmed by Froy Love ([id number]) on 02/13/2022 2:14:28 PM MUSE SYSTEM 01/29/2022 1:04 PM EDT 02/13/2022 2:14 PM EDT Efrain Bah MD ECG ORDERABLES Performing Organization Address City/[facility]/ZIP Co de Phone Number MUSE SYSTEM * (ABNORMAL) BLOOD GAS 2 ARTERIAL (01/29/2022 11:38 AM EDT) pH, Arterial 7.36 7.35 - 7.45 [facility] PCO2, Arterial 46(H) 35 - [address] [facility] PO2, Arterial 361(H) 85 - [address] [facility] Bicarbonate, Arterial 25.6 20.0 - 26.0 mmol/L [facility] Base Excess, Arterial 0.3 -3.0 - 3.0 mmol/L [facility] Hgb Blood Gas 9.2(L) 11.7 - 15.5 g/dL [facility] Oxyhemoglobin, Arterial 99.1(H) 94.0 - 97.0 % [facility] Carboxyhemoglob in, Arterial 0.3 % [facility] Comment: Nonsmokers: 0.5-1.5% COHB Smokers: Variable, but usually less than 10% Toxic: 20-30% COHB Lethal: Greater than 60% COHB Methemoglobin, Arterial 0.3 <=1.5 % [facility] Na Whole Blood 136 135 - 145 mmol/L [facility] K Whole Blood 3.6 3.5 - 5.0 mmol/L [facility] Comment: Please note: Patients with WBC >100,000 may have falsely elevated Potassium levels. Contact the Clinical Chemistry Laboratory if there are any questions. ICa Whole Blood 1.19 1.15 - 1.33 mmol/L [facility] Comment: Note: ??Total bilirubin higher than 20 mg/dL may lead to falsely low ionized calcium. CL Whole Blood 109(H) 98 - 107 mmol/L [facility] Gluc Whole Bld 152 65 - 199 mg/dL [facility] Comment:Diabetes: >=200 mg/d L plus symptoms. Lactate WB 2.5(H) 0.5 - 2.2 mmol/L [facility] Blood 01/29/2022 11:3 8 AM EDT 01/29/2022 11:38 AM EDT Efrain Bah MD POINT OF CARE TEST ORDERABLES [facility] [place] [address] * (ABNORMAL) Differential, Automated (01/29/2022 11:30 AM EDT) Neutrophil % 81.8 % [facility] Neutrophil Absolute 11.00(H) 1.70 - 6.10 x10(3)/mc L [facility] Lymph % 15.2 % [facility] Lymphocytes Abs 2.0 0.9 - 3.2 x10(3)/ L [facility] Monocyte % 1.0 % [facility] Monocyte Abs 0.1(L) 0.3 - 0.9 x10(3)/ L [facility] Eos % 0.5 % [facility] Eosinophils Abs 0.1 0.0 - 0.4 x10(3)/[facility] Basophil % 0.4 % [facility] Baso Absolute 0.1 0.0 - 0.1 x10(3)/[facility] Immature Gran % 1.10 % [facility] Comment: Immature granulocytes(IG's)percentage and absolute count will include metamyelocytes, myelocytes, and promyelocytes. Blood smears from CBCs yielding IG's will be scanned manually for concordance. If this scan disagrees with the automated IG or if promyelocytes are noted, a manual differential will be performed. Immature Gran Absolute 0.15(H) 0.00 - 0.04 x10(3)/ L [facility] Blood 01/29/2022 11:3 0 AM EDT 01/29/2022 11:46 AM EDT Narrative Resulting Agency Comment Spec In Lab Kate Deleon CRNA HEMATOLOGY TONJA SUAREZ [facility] [place] [address] * (ABNORMAL) Hemogram (01/29/2022 11:30 AM EDT) White Blood Cell 13.4(H) 4.0 - 9.5 x10(3)/mc L [facility] Red Blood Cell 2.22(L) 4.00 - 5.21 x10(6)/mc L [facility] Hemoglobin 8.4(L) 11.7 - 15.5 g/dL [facility] Hematocrit 24.2(L) 35.7 - 45.8 % [facility] Comment: This result has been called to KYLE CORTÉS by Cristóbal oTth on 01 29 2022 at 1151, and has been read back. Mean Cell Volume 109.0(H) 82.6 - 94.[address] [facility] Mean Cell Hemoglobin 37.8(H) 27.1 - 32.[address] [facility] Mean Cell Hemoglobin Concentration 34.7 31.7 - 35.0 g/dL [facility] Platelet 154 145 - 357 x10(3)/[facility] RDW Standard Deviation 46.8(H) 37.0 - 46.0 [facility] RDW coefficient of variation 11.9 11.5 - 14.1 % [facility] Mean Platelet Volume 9.0 7.6 - 12.9 [facility] NRBC% auto 0.0 % [facility] NRBC Absolute 0.000 0.000 - 0.000 x10(3)/ L [facility] Blood 01/29/2022 11:3 0 AM EDT 01/29/2022 11:46 AM EDT Narrative Resulting Agency Comment Spec In Lab Kate Deleon CRNA HEMATOLOGY TONJA SUAREZ [facility] [place] [address] * APTT (01/29/2022 11:30 AM EDT) Partial Thromboplastin Time 32 25 - [address] [facility] Comment: OR Result called by ?? JOSE OR Results read back by: ? kyle sandoval at 2022-01-29 12:01:08 The PTT is NOT appropriate for heparin monitoring. Use the Anti-Xa level for heparin monitoring (HEP UFH) or LMWH monitoring (HEP LMW). A PTT less than 37 seconds generally indicates adequate hemostasis. Blood 01/29/2022 11:3 0 AM EDT 01/29/2022 11:46 AM EDT Narrative Resulting Agency Comment Spec In Lab Randal Rivera MD HEMATOLOGY ORDERABLE S Performing Organization Address [facility] Co de Phone Number [facility] [place] [address] * (ABNORMAL) Prothrombin Time (01/29/2022 11:30 AM EDT) Pathologist [facility] Prothrombin Time 18.2(H) 9.4 - 12.[address] [facility] Comment: OR Result called by ?? BOWECM OR Results read back by: ? kyle cortés at 2022-01-29 12:01:08 International Normalization Ratio 1.6 [facility] Comment: OR Result called by ?? BOWECM OR Results read back by: ? kyle cortés at 2022-01-29 12:01:08 An INR <2.0 indicates adequate procoagulant activity for hemostasis in most patients without underlying bleeding disorders, though the INR may not adequately reflect hemostatic capacity in patients with liver disease and synthetic impairment. The recommended target INR range for therapeutic anticoagulation is 2.0 ? 3.0 for most applications, though lower and higher ranges may be appropriate depending on clinical circumstances. Blood 01/29/2022 11:3 0 AM EDT 01/29/2022 11:46 AM EDT Narrative Resulting Agency Comment Spec In Lab Randal Rivera MD HEMATOLOGY ORDERABLE S Performing Organization Address City/[facility]/ZIP Co de Phone Number [facility] [place] [address] * (ABNORMAL) Fibrinogen (01/29/2022 11:30 AM EDT) Fibrinogen 187(L) 200 - 393 mg/dL [facility] Comment: OR Result called by ?? JOSE OR Results read back by: ? kyle cortés at 2022-01-29 12:01:08 A fibrinogen level >100 mg/dL is adequate for hemostasis in most patients without underlying bleeding disorders. Blood 01/29/2022 11:3 0 AM EDT 01/29/2022 11:46 AM EDT Narrative Resulting Agency Comment Spec In Lab Randal Rivera MD HEMATOLOGY ORDERABLE S [facility] [place] [address] * (ABNORMAL) BLOOD GAS 2 ARTERIAL (01/29/2022 10:25 AM EDT) Pathologist [facility] pH, Arterial 7.36 7.35 - 7.45 [facility] PCO2, Arterial 42 35 - [address] [facility] PO2, Arterial 390(H) 85 - [address] [facility] Bicarbonate, Arterial 23.3 20.0 - 26.0 mmol/L [facility] Base Excess, Arterial -2.2 -3.0 - 3.0 mmol/L [facility] Hgb Blood Gas 8.9(L) 11.7 - 15.5 g/dL [facility] Oxyhemoglobin, Arterial 98.8(H) 94.0 - 97.0 % [facility] Carboxyhemoglob in, Arterial 0.3 % [facility] Comment: Nonsmokers: 0.5-1.5% COHB Smokers: Variable, but usually less than 10% Toxic: 20-30% COHB Lethal: Greater than 60% COHB Methemoglobin, Arterial 0.3 <=1.5 % [facility] Na Whole Blood 132(L) 135 - 145 mmol/L [facility] K Whole Blood 5.6(H) 3.5 - 5.0 mmol/L [facility] Comment: Please note: Patients with WBC >100,000 may have falsely elevated Potassium levels. Contact the Clinical Chemistry Laboratory if there are any questions. ICa Whole Blood 0.98(L) 1.15 - 1.33 mmol/L [facility] Comment: Note: ??Total bilirubin higher than 20 mg/dL may lead to falsely low ionized calcium. CL Whole Blood 104 98 - 107 mmol/L [facility] Gluc Whole Bld 257(H) 65 - 199 mg/dL [facility] Comment:Diabetes: >=200 mg/d L plus symptoms. Lactate WB 1.3 0.5 - 2.2 mmol/L [facility] Blood 01/29/2022 10:2 5 AM EDT 01/29/2022 10:25 AM EDT Efrain Bah MD POINT OF CARE TEST ORDERABLES Performing Organization Address City/State/[facility] Co pa Phone Number [facility] [place] [address] * Platelet count (01/29/2022 10:25 AM EDT) Platelet 212 145 - 357 x10(3)/mc L [facility] Immature Plt % 1.5 0.0 - 7.4 % [facility] Comment: Limitation of the Immature Platelet Fraction (IPF)-May be less reliable when the platelet count is less than 19g628/uL due to statistical imprecision. The IPF value provides an assessment of the Bone Marrow production status. ??It is useful in differentiating Thrombocytopenia caused by platelet destruction/consumption versus decreased production. It also helps to determine the imminent release of platelets and can be therefore a helpful parameter in Chemotherapy and Bone marrow transplant patients. ELEVATED IPF value: ?? When the bone marrow is in a state of over production such as when increased destruction and consumption are the underlying issue. ?? When the marrow is recovering post chemotherapy or bone marrow transplant. LOW to NORMAL IPF value: ?? When the bone marrow in not responding and is in a decreased state of production. References: [employer] The Clinical Value of the Immature Platelet Fraction (IPF) in Cell Recovery Document Number 10-1143 09/2010 [employer] The Role of the Immature Platelet Fraction (IPF) in the Differential Diagnosis of Thrombocytopenia, Document [id number] V008/30/13 P009/01 Blood 01/29/2022 10:2 5 AM EDT 01/29/2022 10:28 AM EDT Narrative Resulting Agency Comment Spec In Lab Efrain Bah MD HEMATOLOGY ORDERAB LES Performing Organization Address City/[facility] Co de Phone Number [facility] [place] [address] * Fibrinogen (01/29/2022 10:25 AM EDT) Fibrinogen 208 200 - 393 mg/dL [facility] Comment: OR Result called by ?? BOWECM OR Results read back by: ? kyle cortés at 2022-01-29 10:42:19 A fibrinogen level >100 mg/dL is adequate for hemostasis in most patients without underlying bleeding disorders. Blood 01/29/2022 10:2 5 AM EDT 01/29/2022 10:28 AM EDT Narrative Resulting Agency Comment Spec In Lab Efrain Bah MD HEMATOLOGY ORDERAB LES Performing Organization Address [facility] Co de Phone Number [facility] [place] [address] * (ABNORMAL) Hemoglobin and Hematocrit, blood (01/29/2022 10:25 AM EDT) Hemoglobin 8.0(L) 11.7 - 15.5 g/dL [facility] Hematocrit 22.7(L) 35.7 - 45.8 % [facility] Comment: This result has been called to KYLE CORTÉS by Cristóbal Toth on 01 29 2022 at 1034, and has been read back. Blood 01/29/2022 10:2 5 AM EDT 01/29/2022 10:28 AM EDT Narrative Resulting Agency Comment Spec In Lab Efrain Bah MD HEMATOLOGY ORDERAB LES Performing Organization Address [facility] Co de Phone Number [facility] [place] [address] * Specimen to Pathology (01/29/2022 10:06 AM EDT) AP Specimen 01/29/2022 10:0 6 AM EDT 01/29/2022 10:[address] [facility] - 01/29/2022 10:06 AM EDT Specimen requisition ordered. ??Separate Pathology report to follow Efrain Bah MD PATHOLOGY/CYTOLOGY ORDERABLES Performing Organization Address [facility] Co de Phone Number [facility] [place] [address] * Surgical Pathology Report (01/29/2022 10:03 AM EDT) Final Diagnosis [id number] ? Location: [facility]; [facility]; The signing pathologist has (i) examined the relevant preparation(s) for the specimen(s) and (ii) rendered or confirmed the diagnosis(es). . ?Surgical Pathology DIAGNOSIS A - Aortic valve leaflets, excision: - ??Valve leaflet tissue with nodular calcific and myxoid degeneration. B - Myectomy, ventricular muscle, excision: - Hypertrophic cardiac muscle. Electronically signed by: ?MD Brandie, Gregg Ko Verified: ??02/01/2022 13:54 ??Pathologist Performed at: ??-[facility] Dept. of Pathology, [employer], [place] SPECIMEN(S) SUBMITTED A - Aortic Valve Leaflets, excision (1) B - Myectomy, Ventricular Muscle, excision (1) CLINICAL INFORMATION Aortic stenosis SPECIMEN PROCESSING A - Labeled/Fixative: Aortic valve leaflets, fresh. Quantity/Size: Fragments, 3.1 x 2.5 x 1.4 cm in aggregate. Tissue Description: Fragmented, semi-lunar valve with calcific debris. Number semi-lunar valve cusps identified: Two Average size of cusps: 2.1 cm Free edges: Free edge is involved with calcified nodules Sinuses: Sinuses disrupted by calcifications Sections Processing Blocks submitted for decalcification: A1. Impression Printer sections in 1 cassette labeled A1. B - Labeled/Fixative: Myectomy, ventricular muscle, formalin. Quantity/Size: Fragments, 2.6 x 1.5 x 1.5 cm in aggregate. Tissue Description: Fragments of red-foster soft tissue. Sections/Processi ng: Entirely submitted in 2 cassettes labeled B1-B2. ??po 02/01/2022 1:[address] [facility] MUSCLE SPECIMEN / Unknown 01/29/2022 10:03 AM EDT 01/29/2022 10:03 AM EDT MUSCLE SPECIMEN / Unknown 01/29/2022 10:03 AM EDT 01/29/2022 10:03 AM EDT Efrain Bah MD PATHOLOGY/CYTOLOGY ORDERABLES [facility] [place] [address] * Specimen to Pathology (01/29/2022 10:03 AM EDT) AP Specimen 01/29/2022 10:0 3 AM EDT 01/29/2022 10:[address] [facility] - 01/29/2022 10:03 AM EDT Specimen requisition ordered. ??Separate Pathology report to follow Efrain Bah MD PATHOLOGY/CYTOLOGY ORDERABLES [facility] [place] [address] * (ABNORMAL) BLOOD GAS 2 ARTERIAL (01/29/2022 9:58 AM EDT) pH, Arterial 7.39 7.35 - 7.45 [facility] PCO2, Arterial 39 35 - [address] [facility] PO2, Arterial 425(H) 85 - [address] [facility] Bicarbonate, Arterial 23.2 20.0 - 26.0 mmol/L [facility] Base Excess, Arterial -1.8 -3.0 - 3.0 mmol/L [facility] Hgb Blood Gas 8.3(L) 11.7 - 15.5 g/dL [facility] Oxyhemoglobin, Arterial 99.0(H) 94.0 - 97.0 % [facility] Carboxyhemoglob in, Arterial 0.2 % [facility] Comment: Nonsmokers: 0.5-1.5% COHB Smokers: Variable, but usually less than 10% Toxic: 20-30% COHB Lethal: Greater than 60% COHB Methemoglobin, Arterial 0.3 <=1.5 % [facility] Na Whole Blood 129(L) 135 - 145 mmol/L [facility] K Whole Blood 6.2(Critic al) 3.5 - 5.0 mmol/L [facility] Comment: Please note: Patients with WBC >100,000 may have falsely elevated Potassium levels. Contact the Clinical Chemistry Laboratory if there are any questions. ICa Whole Blood 0.99(L) 1.15 - 1.33 mmol/L [facility] Comment: Note: ??Total bilirubin higher than 20 mg/dL may lead to falsely low ionized calcium. CL Whole Blood 103 98 - 107 mmol/L [facility] Gluc Whole Bld 247(H) 65 - 199 mg/dL [facility] Comment:Diabetes: >=200 mg/d L plus symptoms. Lactate WB 1.1 0.5 - 2.2 mmol/L [facility] Blood 01/29/2022 9:58 AM EDT 01/29/2022 9:58 AM EDT Efrain Bah MD POINT OF CARE TEST ORDERABLES [facility] [place] [place] [address] * (ABNORMAL) BLOOD GAS 2 ARTERIAL (01/29/2022 9:35 AM EDT) pH, Arterial 7.40 7.35 - 7.45 [facility] PCO2, Arterial 37 35 - [address] [facility] PO2, Arterial 421(H) 85 - [address] [facility] Bicarbonate, Arterial 22.6 20.0 - 26.0 mmol/L [facility] Base Excess, Arterial -2.1 -3.0 - 3.0 mmol/L [facility] Hgb Blood Gas 8.3(L) 11.7 - 15.5 g/dL [facility] Oxyhemoglobin, Arterial 99.0(H) 94.0 - 97.0 % [facility] Carboxyhemoglob in, Arterial 0.3 % [facility] Comment: Nonsmokers: 0.5-1.5% COHB Smokers: Variable, but usually less than 10% Toxic: 20-30% COHB Lethal: Greater than 60% COHB Methemoglobin, Arterial 0.3 <=1.5 % [facility] Na Whole Blood 129(L) 135 - 145 mmol/L [facility] K Whole Blood 5.3(H) 3.5 - 5.0 mmol/L [facility] Comment: Please note: Patients with WBC >100,000 may have falsely elevated Potassium levels. Contact the Clinical Chemistry Laboratory if there are any questions. ICa Whole Blood 0.93(L) 1.15 - 1.33 mmol/L [facility] Comment: Note: ??Total bilirubin higher than 20 mg/dL may lead to falsely low ionized calcium. CL Whole Blood 103 98 - 107 mmol/L [facility] Gluc Whole Bld 202(H) 65 - 199 mg/dL [facility] Comment:Diabetes: >=200 mg/d L plus symptoms. Lactate WB 0.8 0.5 - 2.2 mmol/L [facility] Blood 01/29/2022 9:35 AM EDT 01/29/2022 9:35 AM EDT Efrani Bah MD POINT OF CARE TEST ORDERABLES [facility] [place] [place] [address] * (ABNORMAL) BLOOD GAS 2 VENOUS (01/29/2022 9:34 AM EDT) pH, Venous 7.38 7.32 - 7.42 [facility] PCO2, Venous 40(L) 41 - [address] [facility] PO2, Venous 56(H) 25 - [address] [facility] Bicarbonate, Venous 22.9 mmol/L [facility] Base Excess, Venous -2.3 mmol/L [facility] Hgb Blood Gas 8.2(L) 11.7 - 15.5 g/dL [facility] Oxyhemoglobin, Venous 87.5 % [facility] Carboxyhemoglob in, Venous 0.5 % [facility] Comment: Nonsmokers: 0.5-1.5% COHB Smokers: Variable, but usually less than 10% Toxic: 20-30% COHB Lethal: Greater than 60% COHB Methemoglobin, Venous 0.3 <=1.5 % [facility] Na Whole Blood 131(L) 135 - 145 mmol/L [facility] K Whole Blood 5.3(H) 3.5 - 5.0 mmol/L [facility] Comment: Please note: Patients with WBC >100,000 may have falsely elevated Potassium levels. Contact the Clinical Chemistry Laboratory if there are any questions. ICa Whole Blood 0.92(Criti aicha) 1.15 - 1.33 mmol/L [facility] Comment: Note: ??Total bilirubin higher than 20 mg/dL may lead to falsely low ionized calcium. CL Whole Blood 103 98 - 107 mmol/L [facility] Gluc Whole Bld 205(H) 65 - 199 mg/dL [facility] Comment:Diabetes: >=200 mg/d L plus symptoms Lactate WB 0.8 0.5 - 2.2 mmol/L [facility] Blood Gas Source Venous [facility] Blood 01/29/2022 9:34 AM EDT 01/29/2022 9:34 AM EDT Efrain Bah MD POINT OF CARE TEST ORDERABLES [facility] [place] [address] * (ABNORMAL) BLOOD GAS 2 ARTERIAL (01/29/2022 8:35 AM EDT) pH, Arterial 7.40 7.35 - 7.45 [facility] PCO2, Arterial 36 35 - [address] [facility] PO2, Arterial 349(H) 85 - [address] [facility] Bicarbonate, Arterial 21.6 20.0 - 26.0 mmol/L [facility] Base Excess, Arterial -3.3(L) -3.0 - 3.0 mmol/L [facility] Hgb Blood Gas 12.7 11.7 - 15.5 g/dL [facility] Oxyhemoglobin, Arterial 98.9(H) 94.0 - 97.0 % [facility] Carboxyhemoglob in, Arterial 0.6 % [facility] Comment: Nonsmokers: 0.5-1.5% COHB Smokers: Variable, but usually less than 10% Toxic: 20-30% COHB Lethal: Greater than 60% COHB Methemoglobin, Arterial 0.3 <=1.5 % [facility] Na Whole Blood 138 135 - 145 mmol/L [facility] K Whole Blood 3.7 3.5 - 5.0 mmol/L [facility] Comment: Please note: Patients with WBC >100,000 may have falsely elevated Potassium levels. Contact the Clinical Chemistry Laboratory if there are any questions. ICa Whole Blood 1.24 1.15 - 1.33 mmol/L [facility] Comment: Note: ??Total bilirubin higher than 20 mg/dL may lead to falsely low ionized calcium. CL Whole Blood 106 98 - 107 mmol/L [facility] Gluc Whole Bld 114 65 - 199 mg/dL [facility] Comment:Diabetes: >=200 mg/d L plus symptoms. Lactate WB 0.7 0.5 - 2.2 mmol/L [facility] Blood 01/29/2022 8:35 AM EDT 01/29/2022 8:35 AM EDT Efrain Bah MD POINT OF CARE TEST ORDERABLES Performing Organization Address [facility] Co de Phone Number [facility] [place] [address] * Transesophageal Echo/OR (01/29/2022 7:18 AM EDT) Anatomical Region Laterality Modality Cardiac Other 01/29/2022 7:18 AM EDT Narrative 01/29/2022 1:11 PM EDT ? Version: 1 Name: MARK WALLER ? Study Date: 01/29/2022, 7: 18 AM ?Patient Location: OR^OR18^A : 1960 (MM/DD/YYYY) ? Age: 61 Years Gender: Female Ordering Physician: [id number]^NIURKA^EFRAIN^W^^^^^EPIC^^^^PROVID Referring Physician: [id number]^EDWARD^EVELYNE^A^^^^^EPIC^^^^PROVID Pre Procedure Findings A complete transesophageal echocardiogram was performed in the [facility]. for immediate pre-operative and post-operative evaluation of cardiac function and valvular heart disease during cardiac surgery. Left ventricle is of normal size. Wall thickness is mildly increased. Mild increased thickness of the basal septum with RICHELLE, but no evidence of an obstruction to LV outflow. Left ventricular ejection fraction is estimated visually at 60%. There are no segmental wall motion abnormalities. The right ventricle is of normal size. Right ventricular systolic function is normal. Left atrium is of normal size. No abnormality of the interatrial septum is identified. There is no evidence for a patent foramen ovale. The right atrium is not well visualized. The aortic valve is bicuspid. Fusion of the left and right coronary cusps. There is mild to moderate aortic regurgitation. There is moderate to severe aortic stenosis. The mitral valve is structurally and functionally normal. There is trace mitral regurgitation. The tricuspid valve is structurally normal. There is mild tricuspid regurgitation. The pulmonic valve appears to be structurally and functionally normal. The aortic root is of normal size. No abnormalities are identified. The ascending aorta is of normal dimension. No abnormalities are identified. No abnormalities of the transverse aorta are identified. Post Procedure Findings Patient is s/p bioprosthetic aortic valve replacement. [...] ongoing volume resuscitation and relative LV underfilling. No changes from pre-bypass exam. No changes from pre-bypass exam. No changes from pre-bypass exam. No evidence of dissection. I ?WMSI ??= ??1.00 ? % Normal ??= ?? 100% X - ?1 - ? 2 - ?3 - ?4 - ? 5 - ?Segments ? Size Cannot Interpret ??Normal ? Hypokinetic ?Akinetic ?Dyskinetic ?? Aneurysmal ? 1-2 ? small ? 3-5 ? moderate ? 6-14 ?large ? 15-16 ? diffuse Reading Physician ?Randal Rivera MD ? 01/29/2022, 1: 11 PM Ordering Physician: EFRAIN BAH Referring Physician: EVELYNE HUNT Procedure Note Randal Rivera MD - 01/29/2022 Version: 1 Name: MARK WALLER Study Date: 01/29/2022,7: 18 AM Patient Location:OR^OR18^A : 1960 (MM/DD/YYYY) Age: 61 Years Gender: Female Ordering Physician: [id number]^NIURKA^EFRAIN^Uri^^^^^EPIC^^^^PROVID Referring Physician: [id number]^EDWARD^EVELYNE^Dat^^^^^EPIC^^^^PROVID Pre Procedure Findings A complete transesophageal echocardiogram was performed in the [facility] pre-operative and post-operative evaluation of cardiac function andvalvular heart disease during cardiac surgery. Left ventricle is of normal size. Wall thickness is mildly increased.Mild increased thickness of the basal septum with RICHELLE, but no evidence of an obstruction to LV outflow. Left ventricular ejection fraction isestimated visually at 60%. There are no segmental wall motion abnormalities. The right ventricle is of normal size. Right ventricular systolic functionis normal. Left atrium is of normal size. No abnormality of the interatrial septumis identified. There is no evidence for a patent foramen ovale. The rightatrium is not well visualized. The aortic valve is bicuspid. Fusion of the left and right coronary cusps.There is mild to moderate aortic regurgitation. There is moderate to severeaortic stenosis. The mitral valve is structurally and functionally normal. There is tracemitral regurgitation. The tricuspid valve is structurally normal. There is mild tricuspidregurgitation. The pulmonic valve appears to be structurally and functionally normal. The aortic root is of normal size. No abnormalities are identified. Theascending aorta is of normal dimension. No abnormalities are identified. Noabnormalities of the transverse aorta are identified. Post Procedure Findings Patient is s/p bioprosthetic aortic valve replacement. Myectomy. Left ventricular ejection fraction is estimated visually at 75 %. Nochanges from pre-bypass exam. There are no segmental wall motion abnormalities,. No changes from pre-bypass exam. Right ventricular systolic function isnormal. No changes from pre-bypass exam. The date of insertion is 01/29/2022. 23mm Inspiris valve placed in theaortic position. There is no evidence of addie-valvular leak. Gradient through theLVOT was 7mmHG at 70bpm though this might be an overestimate due to ongoingvolume resuscitation and relative LV underfilling. No changes from pre-bypass exam. No changes from pre-bypass exam. No changes from pre-bypass exam. No evidence of dissection. I WMSI = 1.00 % Normal = 100% X - 1 - 2 - 3 - 4 - 5 - Segments Size Cannot Interpret Normal Hypokinetic AkineticDyskinetic Aneurysmal 1-2 small 3-5 moderate 6-14 large 15-16 diffuse Reading Physician Randal Rivera MD 01/29/2022, 1: 11 PM Ordering Physician: EFRAIN BAH Referring Physician: EVELYNE HUNT Efrain Bah MD ECHO ORDERABLES * EKG 12 Lead (01/29/2022 7:10 AM EDT) Ventricular rate 62 BPM MUSE SYSTEM Atrial Rate 62 BPM MUSE SYSTEM P-R Interval 144 ms MUSE SYSTEM QRS Duration 92 ms MUSE SYSTEM Q-T Interval 452 ms MUSE SYSTEM QTC Calculated (Bezet) 458 ms MUSE SYSTEM Calculated P Bradford 72 degrees MUSE SYSTEM Calculated R Bradford 51 degrees MUSE SYSTEM Calculated T Bradford 51 degrees MUSE SYSTEM INTERPRETATION Normal sinus rhythm Normal ECG When compared with ECG of 17-DEC-2021 11:53, Nonspecific ST abnormality no longer present Confirmed by fellow MD Duke Daniel ([id number]) on 01/29/2022 8:59:46 AM Confirmed by MD ATKINS SALVATORE ([id number]) on 01/29/2022 1:42:36 PM MUSE SYSTEM 01/29/2022 7:10 AM EDT 01/29/2022 1:42 PM EDT Efrain Bah MD ECG ORDERABLES MUSE SYSTEM * Prepare RBC (01/29/2022 6:40 AM EDT) Dispensed? Yes [facility] Blood 01/29/2022 6:40 AM EDT 01/29/2022 6:40 AM EDT Efrain Bah MD BLOOD BANK PRODUCT ORDERABLES [facility] [place] [phone] documented in this encounter Visit Diagnoses Diagnosis Aortic valve stenosis, etiology of cardiac valve disease unspecified Systolic anterior movement of mitral valve Mitral valve disorders S/P AVR Heart valve replaced by other means (aortic stenosis) Aortic valve disorders Paroxysmal atrial fibrillation Atrial fibrillation Paroxysmal atrial fibrillation Atrial fibrillation documented in this encounter Admitting Diagnoses Diagnosis (aortic stenosis) Aortic valve disorders documented in this encounter Administered Medications Inactive Administered Medications - up to 3 most recent administrations Medication Order MAR Action Action Date Dose Rate Site acetaminophen (Ofirmev) (1000 mg/100 mL) infusion 1,000 mg 1,000 mg, Intravenous, at 400 mL/hr, Administer over 15 Minutes, EVERY 6 HOURS SCHEDULED, 4 doses, First dose on Fri01/29/22 at 1345, Last dose on Fri01/30/22 at 0600, Maximum dose of acetaminophen is 4000 mg from all sources in 24 hours. When ordered for pain, acetaminophen should be given even when other ordered pain medications are indicated., Routine, Is ketorolac (Toradol) IV contraindicated? Yes, Can this patient tolerate oral medications or suppositories? No Given 01/30/2022 5:42 AM EDT 1,000 mg 400 mL/hr Given 01/29/2022 11:19 PM EDT 1,000 mg 400 mL/hr Given 01/29/2022 5:28 PM EDT 1,000 mg 400 mL/hr acetaminophen (Tylenol) tablet 1,000 mg 1,000 mg, Oral, EVERY 6 HOURS SCHEDULED, First dose on Fri01/30/22 at 1200, Until Discontinued, For pain when taking by mouth. Maximum dose of acetaminophen is 4000 mg from all sources in 24 hours. When ordered for pain, acetaminophen should be given even when other ordered pain medications are indicated., Routine Given 02/06/2022 6:31 AM EDT 1,000 mg Given 02/06/2022 12:09 AM EDT 1,000 mg Given 02/05/2022 5:00 PM EDT 1,000 mg albumin (human) 25% 50 mL intravenous solution 12.5 g, Intravenous, EVERY 15 MIN PRN, 2 doses, Starting on Fri01/29/22 at 1251, Until Fri01/30/22 at 1127, Other, see admin instruction, PRN as needed for volume replacement to maintain cardiac index greater than or equal to 2.0 L/min/M2, Recovery ([facility]), STAT New Bag 01/30/2022 10:50 AM EDT 12.5 g albumin (human) 5% 250 mL intravenous solution 12.5 g, Intravenous, ONCE, 1 dose, On [place]a 01/31/22 at 1330, Call pharmacy for any issues., Routine New Bag 01/31/2022 2:02 PM EDT 12.5 g albumin (human) 5% 250 mL intravenous solution 12.5 g, Intravenous, 2 TIMES DAILY, 2 doses, First dose (after last reorder) on Fri02/01/22 at 0945, Last dose on Fri02/01/22 at 2100, Call pharmacy for any issues., STAT New Bag 02/01/2022 9:32 AM EDT 12.5 g albumin (human) 5% 250 mL intravenous solution 12.5 g, Intravenous, 2 TIMES DAILY, 1 dose, First dose (after last modification) on Fri02/01/22 at 1230, Call pharmacy for any issues., STAT New Bag 02/01/2022 11:46 AM EDT 12.5 g ALPRAZolam (Xanax) tablet 0.5 mg 0.5 mg, Oral, NIGHTLY PRN, Starting on 02/03/22 at 2154, Until 02/06/22 at 1311, Anxiety, Routine Given 02/04/2022 7:55 PM EDT 0.5 mg Given 02/03/2022 10:05 PM EDT 0.5 mg AMIOdarone (CORDARONE) bolus from bag 150 mg 150 mg, Intravenous, Administer over 10 Minutes, ONCE, 1 dose, On Fri01/31/22 at 0845, Warning Vesicant/Irritant Medication , Routine Bolus from Bag 01/31/2022 9:14 AM EDT 150 mg AMIOdarone (CORDARONE) bolus from bag 150 mg 150 mg, Intravenous, Administer over 10 Minutes, ONCE, 1 dose, On Fri01/31/22 at 1330, Warning Vesicant/Irritant Medication , Routine Bolus from Bag 01/31/2022 12:39 PM EDT 150 mg AMIOdarone (CORDARONE) bolus from bag 150 mg 150 mg, Intravenous, Administer over 10 Minutes, ONCE, 1 dose, On Fri02/01/22 at 0600, Warning Vesicant/Irritant Medication , Routine Bolus from Bag 02/01/2022 10:24 AM EDT 150 mg AMIOdarone (Nexterone) (1.8 mg/mL) in dextrose (iso-osmotic) infusion 1 mg/min (33.3333 mL/hr, rounded to 33.3 mL/hr), Intravenous, CONTINUOUS, Starting on Louisa 01/31/22 at 0845, Until Louisa 01/31/22 at 1631, 1 mg/min for 6 hrs, then 0.5 mg/min for 18 hrs. After first 24 hours, order maintenance dose 0.5 mg/min. Use in-line filter. Warning Vesicant/Irritant Medication New Bag 01/31/2022 9:29 AM EDT 1 mg/min 33.3 mL/hr AMIOdarone (Nexterone) (1.8 mg/mL) in dextrose (iso-osmotic) infusion 0.5 mg/min (16.6667 mL/hr, rounded to 16.7 mL/hr), Intravenous, CONTINUOUS, Starting on Fri02/01/22 at 0600, Until 02/02/22 at 2100, 1 mg/min for 6 hrs, then 0.5 mg/min for 18 hrs. After first 24 hours, order maintenance dose 0.5 mg/min. Use in-line filter. Warning Vesicant/Irritant Medication New Bag 02/02/2022 1:03 PM EDT 0.5 mg/min 16.7 mL/hr Rate/Dose Change 02/02/2022 10:27 AM EDT 0.5 mg/min 16.7 m L/hr New Bag 02/01/2022 11:06 PM EDT 0.5 mg/min 16.7 mL/hr AMIOdarone (Nexterone) (1.8 mg/mL) in dextrose (iso-osmotic) infusion 150 mg, at 499.8 mL/hr, Intravenous, ONCE, 1 dose, On Fri02/03/22 at 2245, Warning Vesicant/Irritant Medication New Bag 02/03/2022 10:03 PM EDT 150 mg 499.8 mL/hr AMIOdarone (Paceron) tablet 200 mg 200 mg, Oral, DAILY, 1 dose, First dose on 02/02/22 at 2100, Routine Given 02/02/2022 8:18 PM EDT 200 mg AMIOdarone (Paceron) tablet 200 mg 200 mg, Oral, DAILY, First dose on 02/02/22 at 1115, Until Discontinued, Routine Given 02/04/2022 9:02 AM EDT 200 mg Given 02/03/2022 9:02 AM EDT 200 mg Given 02/02/2022 11:41 AM EDT 200 mg AMIOdarone (Paceron) tablet 200 mg 200 mg, Oral, ONCE, 1 dose, On Fri02/04/22 at 1100, Routine Given 02/04/2022 11:45 AM EDT 200 mg AMIOdarone (Paceron) tablet 400 mg 400 mg, Oral, DAILY, First dose (after last modification) on Fri02/05/22 at 0900, Until Discontinued, Routine Given 02/06/2022 9:28 AM EDT 400 mg Given 02/05/2022 8:30 AM EDT 400 mg aspirin chewable tablet 81 mg 81 mg, Oral, DAILY, First dose on Fri01/30/22 at 0900, Until Discontinued, Start on Post-Op Day 1 in the AM, If unable to take PO, may give MN, Routine Given 02/06/2022 9:28 AM EDT 81 mg Given 02/05/2022 8:30 AM EDT 81 mg Given 02/04/2022 9:01 AM EDT 81 mg atorvastatin (Lipitor) tablet 10 mg 10 mg, Oral, DAILY, First dose on Fri01/30/22 at 0900, Until Discontinued, Routine Given 02/06/2022 9:28 AM EDT 10 mg Given 02/05/2022 8:30 AM EDT 10 mg Given 02/04/2022 9:01 AM EDT 10 mg buPROPion XL (Wellbutrin XL) tablet 300 mg 300 mg, Oral, DAILY, First dose on Fri01/30/22 at 0900, Until Discontinued, DO NOT CRUSH OR OPEN, Routine Given 02/06/2022 9:27 AM EDT 300 mg Given 02/05/2022 8:29 AM EDT 300 mg Given 02/04/2022 9:01 AM EDT 300 mg chlorhexidine (Peridex) 0.12 % oral solution 15 mL 15 mL, Oral, EVERY 12 HOURS SCHEDULED (2 times per day), First dose on Fri01/29/22 at 1345, Until Discontinued, Freedom teeth, Routine Given 01/29/2022 9:27 PM EDT 15 mLs Given 01/29/2022 1:17 PM EDT 15 mLs dextrose 5% and sodium chloride 0.9% infusion 50 mL/hr, Intravenous, CONTINUOUS, Starting on Fri02/01/22 at 0945, Until Fri02/06/22 at 1311 New Bag 02/02/2022 4:43 AM EDT 50 mL/hr 50 m L/hr Rate/Dose Verify 02/01/2022 12:56 PM EDT 50 mL/hr 50 mL/ hr New Bag 02/01/2022 9:28 AM EDT 50 mL/hr 50 mL/hr diphenhydrAMINE (Benadryl) capsule 25 mg 25 mg, Oral, NIGHTLY PRN, Starting on 02/03/22 at 1508, Until Fri02/06/22 at 1311, Itching, Sleep, Routine Given 02/06/2022 12:09 AM EDT 25 mg Given 02/05/2022 2:08 AM EDT 25 mg Given 02/04/2022 3:48 AM EDT 25 mg fentaNYL (50 mcg/mL) bolus from infusion 25 mcg 25 mcg, Intravenous, EVERY 10 MIN PRN, Starting on Fri01/29/22 at 1246, Until Fri01/30/22 at 1127, Pain, Maximum dose 300 mcg over one hour, Routine Bolus from Infusion 01/29/2022 1:49 PM EDT 25 mcg fentaNYL (PF) (50 mcg/mL) infusion syringe 50 mL 0-100 mcg/hr (0-2 mL/hr), Intravenous, CONTINUOUS, Starting on Fri01/29/22 at 1345, Until Fri01/30/22 at 1127, Titrate to patient comfort, pain scale 1-3. Start at 25 mcg/hr, adjust by 25 mcg/hr every 15 minutes. Dose not to exceed 100 mcg/hour., Routine Rate/Dose Verify 01/29/2022 2:00 PM EDT 25 mcg/hr 0.5 mL/hr New Bag 01/29/2022 1:08 PM EDT 25 mcg/hr 0.5 mL/hr hydrocortisone sod succ (pf) (Solu-CORTEF) (100 mg/2 mL) injection 100 mg 100 mg, Intravenous, EVERY 8 HOURS SCHEDULED, First dose on 02/02/22 at 1400, Until Discontinued Given 02/03/2022 11:36 PM EDT 100 mg Given 02/03/2022 4:30 PM EDT 100 mg Given 02/03/2022 9:02 AM EDT 100 mg hydrocortisone sod succ (pf) (Solu-CORTEF) (100 mg/2 mL) injection 25 mg 25 mg, Intravenous, EVERY 8 HOURS SCHEDULED, First dose (after last modification) on Fri02/05/22 at 0845, Until Discontinued Given 02/06/2022 12:09 AM EDT 25 mg Given 02/05/2022 5:00 PM EDT 25 mg Given 02/05/2022 8:43 AM EDT 25 mg hydrocortisone sod succ (pf) (Solu-CORTEF) (100 mg/2 mL) injection 50 mg 50 mg, Intravenous, EVERY 8 HOURS SCHEDULED, First dose (after last modification) on 02/04/22 at 1000, Until Discontinued Given 02/05/2022 12:34 AM EDT 50 mg Given 02/04/2022 5:29 PM EDT 50 mg Given 02/04/2022 9:54 AM EDT 50 mg ketorolac (Toradol) (15 mg/mL) injection 15 mg 15 mg, Intravenous, EVERY 6 HOURS, 5 doses, First dose on Fri01/29/22 at 1745, Last dose on Fri01/30/22 at 1745, Routine Given 01/30/2022 10:50 AM EDT 15 mg Given 01/30/2022 5:45 AM EDT 15 mg Given 01/29/2022 11:21 PM EDT 15 mg magnesium hydroxide (Milk of Magnesia) (240 mg/mL) oral liquid 10 mL 10 mL, Oral, DAILY, First dose on [place]a 01/31/22 at 0900, Until Discontinued, Post-op day 2. Do not use with renal insufficiency., Routine Given 02/01/2022 9:00 AM EDT 10 mLs Given 01/31/2022 9:20 AM EDT 10 mLs magnesium sulfate 1 g in dextrose 5% 100 mL infusion 1 g, Intravenous, ONCE, 1 dose, On 02/02/22 at 1115, Administer over 60 Minutes New Bag 02/02/2022 12:52 PM EDT 1 g 100 mL/hr melatonin tablet 6 mg 6 mg, Oral, NIGHTLY PRN, Starting on 02/03/22 at 0058, Until Fri02/06/22 at 1311, insomnia, Routine Given 02/03/2022 8:48 PM EDT 6 mg Given 02/03/2022 1:05 AM EDT 6 mg metoclopramide (Reglan) (5 mg/mL) injection 10 mg 10 mg, Intravenous, EVERY 8 HOURS PRN, Starting on 02/01/22 at 0855, Until Fri02/06/22 at 1311, Nausea, Doses greater than 10mg should be diluted into 50ml NS. Use if zofran ineffective metoprolol tartrate (Lopressor) tablet 12.5 mg 12.5 mg, Oral, EVERY 12 HOURS SCHEDULED (2 times per day), First dose on Fri01/30/22 at 0900, Until Discontinued, Hold for HR<50, SBP<90, Routine Given 01/31/2022 8:54 PM EDT 12.5 mg Given 01/31/2022 9:19 AM EDT 12.5 mg Given 01/30/2022 8:26 PM EDT 12.5 mg metoproloL tartrate (Lopressor) tablet 25 mg 25 mg, Oral, EVERY 12 HOURS SCHEDULED (2 times per day), First dose (after last modification) on Fri02/01/22 at 0530, Until Discontinued, Hold for HR<50, SBP<90, Routine Given 02/03/2022 8:47 PM EDT 25 mg Given 02/03/2022 9:01 AM EDT 25 mg Given 02/02/2022 8:18 PM EDT 25 mg metoproloL tartrate (Lopressor) tablet 25 mg 25 mg, Oral, EVERY 8 HOURS SCHEDULED, First dose (after last modification) on Fri02/04/22 at 0600, Until Discontinued, Hold for HR<50, SBP<90, Routine Given 02/06/2022 6:31 AM EDT 25 mg Given 02/05/2022 8:24 PM EDT 25 mg Given 02/05/2022 1:30 PM EDT 25 mg metoproloL tartrate (Lopressor) tablet 25 mg 25 mg, Oral, EVERY 12 HOURS SCHEDULED (2 times per day), First dose (after last modification) on Fri02/06/22 at 2100, Until Discontinued, Hold for HR<50, SBP<90, Routine niraparib (Zejula) Cap 100 mg 100 mg, Oral, NIGHTLY, First dose on Fri02/05/22 at 2100, Until Discontinued, Patients own medication return to patient on discharge Administer at approximately the same time each day, either with or without food. Swallow capsules whole; do not chew, crush, or split. Given 02/05/2022 8:23 PM EDT 100 mg NORepinephrine (Levophed) (16 mcg/mL) in dextrose 5% 250 mL infusion 0-30 mcg/min (0-112.5 mL/hr), Intravenous, CONTINUOUS, Starting on Fri01/29/22 at 1345, Until Fri01/30/22 at 1127, Titrate to keep systolic blood pressure greater than 90 mmHg. Start at 2 mcg/minute and adjust by 2 mcg/min every 3 minutes. Dose not to exceed 30 mcg/minute. Begin if PHENYLephrine and/or vasopressin ineffective. Call pager # [phone] if initiated., Routine Rate/Dose Change 01/29/2022 2:00 PM EDT 2 mcg/min 7.5 mL/hr Continued Bag 01/29/2022 1:16 PM EDT 2 mcg/min 7.5 mL/hr ondansetron (pf) (Zofran) (2 mg/mL) injection 4 mg 4 mg, Intravenous, EVERY 8 HOURS PRN, Starting on Fri01/29/22 at 1246, Until Fri02/06/22 at 1311, Nausea Given 02/02/2022 8:48 AM EDT 4 mg Given 02/01/2022 9:05 AM EDT 4 mg Given 01/31/2022 4:42 PM EDT 4 mg Oral Chemotherapy (Inpatient Use Only) Oral, Ordering for Dr. Natalie Vallejo oxyCODONE (Roxicodone) tablet 5-10 mg 5-10 mg, Oral, EVERY 4 HOURS PRN, Starting on Fri01/29/22 at 1246, Until Fri02/06/22 at 1311, Pain, - When tolerating oral medications. - Initial dose 5 mg. - If pain control not adequate in 60 minutes, give additional 5 mg., Routine Given 02/03/2022 2:10 AM EDT 5 mg Given 02/01/2022 2:25 PM EDT 5 mg Given 02/01/2022 9:09 AM EDT 5 mg pantoprazole (Protonix) injection 40 mg 40 mg, Intravenous, DAILY, First dose on Fri01/29/22 at 1345, Until Discontinued, Reconstitute with 10 mL of normal saline to a concentration of 4 mg/mL and infuse slowly over 2 minutes. , Routine Given 01/29/2022 1:17 PM EDT 40 mg pantoprazole EC (Protonix) tablet 40 mg 40 mg, Oral, DAILY, First dose on Fri01/29/22 at 1345, Until Discontinued, DO NOT CRUSH OR OPEN If unable to take PO, may give IV Given 02/06/2022 9:28 AM EDT 40 mg Given 02/05/2022 8:30 AM EDT 40 mg Given 02/04/2022 9:01 AM EDT 40 mg potassium chloride 20 mEq in sterile water 100 mL infusion 20 mEq, Intravenous, EVERY 1 HOUR PRN, Starting on Fri01/29/22 at 1246, Until Fri01/30/22 at 1127, Administer over 60 Minutes, hypokalemia, Administer for a serum potassium (mMol/L) of 3.9 - 4 See instructions for Potassium Protocol in online policies. New Bag 01/29/2022 9:24 PM EDT 20 mEq 100 mL/hr potassium chloride 20 mEq in sterile water 100 mL infusion 20 mEq, Intravenous, EVERY 1 HOUR PRN, Starting on Fri01/29/22 at 1246, Until Fri01/30/22 at 1127, Administer over 60 Minutes, hypokalemia, Administer 2 doses for a serum potassium (mMol/L) of 3.3 - 3.8 See instructions for Potassium Protocol in online policies. New Bag 01/29/2022 8:21 PM EDT 20 mEq 100 mL/hr potassium chloride ER (K-Dur/Klor-Con) tablet 20 mEq 20 mEq, Oral, ONCE, 1 dose, On Fri02/05/22 at 0715, 20 mEq tablet may be dissolved in water for administration, Routine Given 02/05/2022 7:15 AM EDT 20 mEq potassium chloride ER (K-Dur/Klor-Con) tablet 40 mEq 40 mEq, Oral, ONCE, 1 dose, On Fri02/02/22 at 1115, 20 mEq tablet may be dissolved in water for administration, Routine Given 02/02/2022 11:41 AM EDT 40 mEq potassium chloride ER (K-Dur/Klor-Con) tablet 40 mEq 40 mEq, Oral, ONCE, 1 dose, On Fri02/06/22 at 0700, 20 mEq tablet may be dissolved in water for administration, Routine Given 02/06/2022 6:31 AM EDT 40 mEq propofoL (Diprivan) (10 mg/mL) infusion 0-50 mcg/kg/min ? 61.1 kg (0-18.33 mL/hr, rounded to 0-18.3 mL/hr), Intravenous, CONTINUOUS, Starting on Fri01/29/22 at 1345, Until Fri01/30/22 at 1127, Titrate to sedation level of RASS Goal (-) 1. Start at 10 mcg/kg/min, adjust rate by 5 mcg/kg/min every 3 minutes. Dose not to exceed 50 mcg/kg/minute. Discontinue upon extubation., Routine Rate/Dose Verify 01/29/2022 2:00 PM EDT 30 mcg/kg/min 11 mL/hr Continued Bag 01/29/2022 1:16 PM EDT 30 mcg/kg/min 11 mL/h r senna-docusate (Pericolace) 8.6-50 mg per tablet 2 tablet 2 tablet, Oral, DAILY, First dose on Fri01/30/22 at 2100, Until Discontinued, Post-op day 1, Routine Given 01/30/2022 8:25 PM EDT 2 tablets sodium chloride 0.9 % (flush) (BD PosiFlush Normal Saline 0.9) flush 5 mL 5 mL, Intravenous, EVERY 8 HOURS, First dose on Fri01/30/22 at 1230, Until Discontinued, Routine Given 02/05/2022 8:24 PM EDT 5 mLs Given 02/04/2022 7:55 PM EDT 5 mLs Given 02/04/2022 12:23 PM EDT 5 mLs sodium chloride 0.9% infusion 0-500 mL/hr, Intravenous, CONTINUOUS, Starting on Fri01/29/22 at 1345, Until Fri01/30/22 at 1127, Bolus 250 mL every 5 minutes as needed for volume replacement to maintain cardiac index greater than or equal to 2.0 L/min/M2. Maximum volume 2 L. Call [facility] supervisor for additional fluid orders: pager #[phone]. New Bag 01/29/2022 1:18 PM EDT 1 mL/hr 1 mL/hr sodium chloride 0.9% infusion 10-30 mL/hr, Intravenous, DAILY PRN, Starting on Fri01/29/22 at 1246, Until Fri01/30/22 at 1127, Side port TKO rate, per [facility] nursing protocol. Rate/Dose Verify 01/29/2022 2:00 PM EDT 30 mL/hr 30 mL/hr New Bag 01/29/2022 1:15 PM EDT 30 mL/hr 30 mL/hr sodium chloride 0.9% infusion 10-30 mL/hr, Intravenous, DAILY PRN, Starting on Fri01/29/22 at 1246, Until Fri01/30/22 at 1127, Side port TKO rate, per [facility] nrusing protocol. Rate/Dose Verify 01/29/2022 2:00 PM EDT 30 mL/hr 30 mL/hr New Bag 01/29/2022 1:14 PM EDT 30 mL/hr 30 mL/hr vasopressin (Vasostrict) (0.2 units/mL) 100 mL infusion 0-0.1 Units/min (0-30 mL/hr), Intravenous, CONTINUOUS, Starting on Fri01/29/22 at 1345, Until Fri01/30/22 at 1127, Titrate to keep systolic blood pressure greater than 90 mmHg. Start at 0.04 units/min and adjust rate by 0.005 units/min every 10 minutes. Dose not to exceed 0.1 units/minute. Begin if PHENYLephrine ineffective or continue if drip running on admission to unit. Rate/Dose Change 01/29/2022 3:31 PM EDT 0.02 Units/min 6 mL/hr Rate/Dose Verify 01/29/2022 2:00 PM EDT 0.04 Units/min 12 mL/hr Continued Bag 01/29/2022 1:19 PM EDT 0.04 Units/min 12 mL/ hr warfarin (Coumadin) daily order reminder Oral, EVERY 24 HOURS, First dose on Fri02/05/22 at 0000, Until Discontinued, If the daily warfarin order has not been placed, contact the Provider to confirm that the order will be written, the dose is held or discontinued. warfarin (Coumadin) tablet 5 mg 5 mg, Oral, ONCE, 1 dose, On Fri02/04/22 at 1700, DO NOT SPLIT, CRUSH OR OPEN, Routine Given 02/04/2022 5: 29 PM EDT 5 mg warfarin (Coumadin) tablet 5 mg 5 mg, Oral, ONCE, 1 dose, On Fri02/05/22 at 1700, DO NOT SPLIT, CRUSH OR OPEN, Routine Given 02/05/2022 5: 00 PM EDT 5 mg documented in this encounter Active and Recently Administered Medications Times are shown in EDT. Scheduled Medication Order 02/04/2022 02/05/2022 02/06/2022 acetaminophen (Tylenol) tablet 1,000 mg(Linked Group 1) 1,000 mg, Oral, EVERY 6 HOURS SCHEDULED, First dose on Fri01/30/22 at 1200, Until Discontinued, For pain when taking by mouth. Maximum dose of acetaminophen is 4000 mg from all sources in 24 hours. When ordered for pain, acetaminophen should be given even when other ordered pain medications are indicated., Routine 0655 (Given - Provider: Diane Hinds RN)1145 (Given - Provider: Yadira Downing RN)1846 (Given - Provider: Yadira Downing RN) 0033 (Given - Provider: Germaine Pal RN)0553 (Given - Provider: Germaine Pal RN)1140 (Given - Provider: Giana Christian RN)1700 (Given - Provider: Giana Christian RN) 0009 (Given - Provider: Germaine Pal RN)0631 (Given - Provider: Germaine Pal RN) AMIOdarone (Paceron) tablet 200 mg (CANCELED) 200 mg, Oral, DAILY, First dose on Fri02/02/22 at 1115, Until Discontinued, Routine 0902 (Given - Provider: Yadira Downing RN) AMIOdarone (Paceron) tablet 200 mg (COMPLETED) 200 mg, Oral, ONCE, 1 dose, On Fri02/04/22 at 1100, Routine 1145 (Given - Provider: Yadira Downing RN) AMIOdarone (Paceron) tablet 400 mg 400 mg, Oral, DAILY, First dose (after last modification) on Fri02/05/22 at 0900, Until Discontinued, Routine 0830 (Given - Provider: Giana Christian RN) 0928 (Given - Provider: Giana Christian RN) aspirin chewable tablet 81 mg(Linked Group 2) 81 mg, Oral, DAILY, First dose on Fri01/30/22 at 0900, Until Discontinued, Start on Post-Op Day 1 in the AM, If unable to take PO, may give MN, Routine 0901 (Given - Provider: Yadira Downing RN) 08 (Given - Provider: Giana Christian RN) 0928 (Given - Provider: Giana Christian RN) atorvastatin (Lipitor) tablet 10 mg 10 mg, Oral, DAILY, First dose on Fri01/30/22 at 0900, Until Discontinued, Routine 900 (Given - Provider: Yadira Downing RN) 08 (Given - Provider: Giana Christian RN) 09 (Given - Provider: Giana Christian RN) buPROPion XL (Wellbutrin XL) tablet 300 mg 300 mg, Oral, DAILY, First dose on Fri01/30/22 at 0900, Until Discontinued, DO NOT CRUSH OR OPEN, Routine 900 (Given - Provider: Yadira Downing RN) 08 (Given - Provider: Giana hCristian RN) 09 (Given - Provider: Giana Christian RN) hydrocortisone sod succ (pf) (Solu-CORTEF) (100 mg/2 mL) injection 25 mg (CANCELED) 25 mg, Intravenous, EVERY 8 HOURS SCHEDULED, First dose (after last modification) on Fri02/05/22 at 0845, Until Discontinued 0843 (Given - Provider: Giana Christian RN)1700 (Given - Provider: Giana Christian RN) 0009 (Given - Provider: Germaine Pal RN)0830 (Not Given - Provider: Giana Christian RN - Reason: Per Order - Comment: per RENU Britton orders) hydrocortisone sod succ (pf) (Solu-CORTEF) (100 mg/2 mL) injection 50 mg (CANCELED) 50 mg, Intravenous, EVERY 8 HOURS SCHEDULED, First dose (after last modification) on Fri02/04/22 at 1000, Until Discontinued 0954 (Given - Provider: Yadira Downing RN)1729 (Given - Provider: Yadira Downing RN) 0034 (Given - Provider: Germaine Pal RN) magnesium hydroxide (Milk of Magnesia) (240 mg/mL) oral liquid 10 mL 10 mL, Oral, DAILY, First dose on Fri01/31/22 at 0900, Until Discontinued, Post-op day 2. Do not use with renal insufficiency., Routine 0900 (Not Given - Provider: Yadira Downing RN - Reason: Patient/family refused) 0900 (Not Given - Provider: Giana Christian RN - Reason: Patient/family refused) 0900 (Not Given - Provider: Giana Christian RN - Reason: Patient/family refused) metoproloL tartrate (Lopressor) tablet 25 mg (CANCELED) 25 mg, Oral, EVERY 8 HOURS SCHEDULED, First dose (after last modification) on Fri02/04/22 at 0600, Until Discontinued, Hold for HR<50, SBP<90, Routine 0655 (Given - Provider: Diane Hinds RN)1602 (Given - Provider: Yadira Downing RN)2129 (Given - Provider: Germaine Pal RN) 0553 (Given - Provider: Germaine Pal RN)1330 (Given - Provider: Giana Christian RN)2023 (Given - Provider: Germaine Pal RN)213 (Canceled Entry - Provider: Germaine Pal RN - Reason: Contraindicated) 0631 (Given - Provider: Germaine Pal RN) metoproloL tartrate (Lopressor) tablet 25 mg 25 mg, Oral, EVERY 12 HOURS SCHEDULED (2 times per day), First dose (after last modification) on Fri02/06/22 at 2100, Until Discontinued, Hold for HR<50, SBP<90, Routine niraparib (Zejula) Cap 100 mg 100 mg, Oral, NIGHTLY, First dose on Fri02/05/22 at 2100, Until Discontinued, Patients own medication return to patient on discharge Administer at approximately the same time each day, either with or without food. Swallow capsules whole; do not chew, crush, or split. 2022 (Given - Provider: Germaine Pal RN) pantoprazole EC (Protonix) tablet 40 mg(Linked Group 3) 40 mg, Oral, DAILY, First dose on Fri01/29/22 at 1345, Until Discontinued, DO NOT CRUSH OR OPEN If unable to take PO, may give IV 0901 (Given - Provider: Yadira Downing RN) 0830 (Given - Provider: Giana Christian, DMITRY) 0928 (Given - Provider: Giana Christian RN) potassium chloride ER (K-Dur/Klor-Con) tablet 20 mEq (COMPLETED) 20 mEq, Oral, ONCE, 1 dose, On Fri02/05/22 at 0715, 20 mEq tablet may be dissolved in water for administration, Routine 0715 (Given - Provider: Giana Christian RN) potassium chloride ER (K-Dur/Klor-Con) tablet 40 mEq (COMPLETED) 40 mEq, Oral, ONCE, 1 dose, On Fri02/06/22 at 0700, 20 mEq tablet may be dissolved in water for administration, Routine 06 (Given - Provider: Germaine Pal RN) senna-docusate (Pericolace) 8.6-50 mg per tablet 2 tablet 2 tablet, Oral, DAILY, First dose on Fri01/30/22 at 2100, Until Discontinued, Post-op day 1, Routine 2100 (Canceled Entry - Provider: eGrmaine Pal RN - Reason: Patient/family refused - Comment: pt having loose bm's) 2100 (Not Given - Provider: Germaine Pal RN - Reason: Patient/family refused) sodium chloride 0.9 % (flush) (BD PosiFlush Normal Saline 0.9) flush 5 mL 5 mL, Intravenous, EVERY 8 HOURS, First dose on Fri01/30/22 at 1230, Until Discontinued, Routine 0430 (Given - Provider: Diane Hinds RN)1223 (Given - Provider: Yadira Downing RN)195 (Given - Provider: Germaine Pal RN) 0430 (Not Given - Provider: Germaine Pal RN - Reason: Patient not available)1230 (Not Given - Provider: Giana Christian RN - Reason: See comment - Comment: grouping care already given)2023 (Given - Provider: Germaine Pal RN) 0430 (Not Given - Provider: Germaine Pal RN - Reason: Patient not available) warfarin (Coumadin) daily order reminder Oral, EVERY 24 HOURS, First dose on Fri02/05/22 at 0000, Until Discontinued, If the daily warfarin order has not been placed, contact the Provider to confirm that the order will be written, the dose is held or discontinued. 0000 (Dose confirmed - Provider: Germaine Pal RN) 0000 (Dose confirmed - Provider: Germaine Pal RN) warfarin (Coumadin) tablet 5 mg (COMPLETED) 5 mg, Oral, ONCE, 1 dose, On Fri02/04/22 at 1700, DO NOT SPLIT, CRUSH OR OPEN, Routine 1729 (Given - Provider: Yadira Downing RN) warfarin (Coumadin) tablet 5 mg (COMPLETED) 5 mg, Oral, ONCE, 1 dose, On Fri02/05/22 at 1700, DO NOT SPLIT, CRUSH OR OPEN, Routine 1700 (Given - Provider: Giana Christian RN) Continuous Medication Order 02/04/2022 02/05/2022 02/06/2022 dextrose 5% and sodium chloride 0.9% infusion 50 mL/hr, Intravenous, CONTINUOUS, Starting on Fri02/01/22 at 0945, Until Fri02/06/22 at 1311 PRN Medication Order 02/04/2022 02/05/2022 02/06/2022 ALPRAZolam (Xanax) tablet 0.5 mg 0.5 mg, Oral, NIGHTLY PRN, Starting on 02/03/22 at 2154, Until Fri02/06/22 at 1311, Anxiety, Routine 1955 (Given - Provider: Germaine Pal RN) bisacodyL (Dulcolax) suppository 10 mg 10 mg, Rectal, DAILY PRN, Starting on Fri02/01/22 at 0000, Until Fri02/06/22 at 1311, Constipation, Starting post-op day 3., Routine diphenhydrAMINE (Benadryl) capsule 25 mg 25 mg, Oral, NIGHTLY PRN, Starting on 02/03/22 at 1508, Until Fri02/06/22 at 1311, Itching, Sleep, Routine 0348 (Given - Provider: Diane Hinds RN) 0208 (Given - Provider: Germaine Pal RN) 0009 (Given - Provider: Germaine Pal RN) melatonin tablet 6 mg 6 mg, Oral, NIGHTLY PRN, Starting on Fri02/03/22 at 0058, Until Fri02/06/22 at 1311, insomnia, Routine metoclopramide (Reglan) (5 mg/mL) injection 10 mg 10 mg, Intravenous, EVERY 8 HOURS PRN, Starting on Fri02/01/22 at 0855, Until Fri02/06/22 at 1311, Nausea, Doses greater than 10mg should be diluted into 50ml NS. Use if zofran ineffective ondansetron (pf) (Zofran) (2 mg/mL) injection 4 mg 4 mg, Intravenous, EVERY 8 HOURS PRN, Starting on Fri01/29/22 at 1246, Until Fri02/06/22 at 1311, Nausea Oral Chemotherapy (Inpatient Use Only) Oral, Ordering for Dr. Natalie Vallejo oxyCODONE (Roxicodone) tablet 5-10 mg 5-10 mg, Oral, EVERY 4 HOURS PRN, Starting on Fri01/29/22 at 1246, Until Fri02/06/22 at 1311, Pain, - When tolerating oral medications. - Initial dose 5 mg. - If pain control not adequate in 60 minutes, give additional 5 mg., Routine Linked Groups Order Group 1: acetaminophen (Ofirmev) (1000 mg/100 mL) infusion 1,000 mg (COMPLETED) 1,000 mg, Intravenous, at 400 mL/hr, Administer over 15 Minutes, EVERY 6 HOURS SCHEDULED, 4 doses, First dose on Fri01/29/22 at 1345, Last dose on Fri01/30/22 at 0600, Maximum dose of acetaminophen is 4000 mg from all sources in 24 hours. When ordered for pain, acetaminophen should be given even when other ordered pain medications are indicated., Routine, Is ketorolac (Toradol) IV contraindicated? Yes, Can this patient tolerate oral medications or suppositories? No Followed by acetaminophen (Tylenol) tablet 1,000 mgJump to med 1,000 mg, Oral, EVERY 6 HOURS SCHEDULED, First dose on Fri01/30/22 at 1200, Until Discontinued, For pain when taking by mouth. Maximum dose of acetaminophen is 4000 mg from all sources in 24 hours. When ordered for pain, acetaminophen should be given even when other ordered pain medications are indicated., Routine Group 2: aspirin chewable tablet 81 mgJump to med 81 mg, Oral, DAILY, First dose on Fri01/30/22 at 0900, Until Discontinued, Start on Post-Op Day 1 in the AM, If unable to take PO, may give MN, Routine Or aspirin suppository 300 mg (CANCELED) 300 mg, Rectal, DAILY, First dose on Fri01/30/22 at 0900, Until Discontinued, Start on Post-Op Day 1 in the AM. Give MN if unable to take PO, Routine Group 3: pantoprazole EC (Protonix) tablet 40 mgJump to med 40 mg, Oral, DAILY, First dose on Fri01/29/22 at 1345, Until Discontinued, DO NOT CRUSH OR OPEN If unable to take PO, may give IV Or pantoprazole (Protonix) injection 40 mg (CANCELED) 40 mg, Intravenous, DAILY, First dose on Fri01/29/22 at 1345, Until Discontinued, Reconstitute with 10 mL of normal saline to a concentration of 4 mg/mL and infuse slowly over 2 minutes. , Routine documented in this encounter Care Teams Sheet Sewer Relationship Specialty Start Date End Date Evelyne Hunt APRN [id number] [place] [address] PCP - General Internal Medicine 09/23/17 documented as of this encounter
--- OUTSIDE RECORDS SUMMARY | 2023-12-01 02:11 | XMS_ITS | Encounter Summary ---
Author Organization [facility] [place] [address] Care Team Providers Care Tool/Die Maker Name Role Phone Evelyne Hunt APRN Primary Care Provider [phone] Reason for Visit * Auth/Cert Specialty Diagnoses / Procedures Referred By Yanelisac t Referred To Contact Diagnoses Aortic stenosis Other nonrheumatic mitral valve disorders , RICHELLE Procedures PRO REPLACEMENT PROSTHETIC AORTIC VALVE OPEN W CARDIOPULMONARY BYPASS HOMOGRF/STENT PRO FABRIZIO VENT MUSC FOR IHSS @REPLACE AORTIC VALVE, OPEN, W\CPB, W\PROSTHETIC VALVE (WRVU 41.32) @VENTRICULOMYOTOMY (-MYECTOMY) FOR IDIOPATHIC HYPERTROPHIC SUBAORTIC STENOSIS (WRVU 36.56) Efrain Bah MD [facility] [place] [address] [facility] Referral ID Status Reason Start Date Expiration Date Visits Re quested Visits Authorized [id number] 1 1 Encounter Details Date Type Department Care Team (Late st Contact Info) Description 01/29/2022 7:30 AM EDT - 01/29/2022 12:58 PM EDT [place] [phone] Efrain Bah MD [facility] [place] [address] @REPLACE AORTIC VALVE, OPEN, W\CPB, W\PROSTHETIC VALVE (WRVU 41.32) Social History Tobacco Use Types Packs/Day Years [...] Sign Reading Time Taken Comments Blood Pressure 120/90 01/29/2022 6:12 AM EDT 122/79 R arm Pulse 68 01/29/2022 12:45 PM EDT Temperature 35.5 ??C (95.9 ??F) 01/29/2022 1 2:45 PM EDT Respiratory Rate 12 01/29/2022 12:5 5 PM EDT Oxygen Saturation 100% 01/29/2022 12: 55 PM EDT Inhaled Oxygen Concentration - - Weight 61.1 kg (134 lb 12.8 oz) 01/29/2022 6:12 AM EDT Height 166.4 cm (5' 5.5) 01/29/2022 6: 12 AM EDT Body Mass Index 22.83 01/29/2022 6:12 AM EDT documented in this encounter Discharge Summaries * Efrain Bah MD - 02/06/2022 9:48 AM EDT Inpatient - Discharge Summary Patient Name: Mark Waller Patient Age: 61 y.o. Birthdate: 1960 Language: Comoran Race: White Ethnicity: Not nor Admit Date: [...] start tomorrow 02/07 Inpatient Provider Contact Information: [facility] Section of Cardiac Surgery [facility] [address] FAX [phone] Discharge Diagnoses (Hospital Problems) Primary Diagnoses: Aortic [...] IR Mediport Placement 08/20/2019 Jourdan Lopez PA [facility] ??? IR MEDIPORT REMOVAL 10/04/2020 IR Mediport Removal 10/04/2020 Mahesh Wick MD [facility] ? ? PRG CATH PLSD CORONARY ART W/INJ FOR ANGIO W/R HEART CATH IMG S&I N/A 12/17/2021 CORONARY ANGIOGRAPHY; W RHC performed by Crisótbal Cuevas MD at [facility] CATH LABS ??? PRO GINA SALP-OOPH W/OMENTECT, FREDI, RAD DISSECT N/A 07/20/2019 @HYSTERECTOMY, FREDI, BSO, DEBULKING (WRVU 34.13) performed by Natalie Vallejo MD at [facility] MAIN OR ??? PRO COLONOSCOPY, REMV LESN, SNARE N/A 05/01/2021 COLONOSCOPY, POLYPECTOMY, REMOVAL LESION BY SNARE (WRVU 4.67) performed by Arlin Agudelo MDat [facility] ENDOSCOPY ??? PRO REPLACEMENT PROSTHETIC AORTIC VALVE OPEN W CARDIOPULMONARY BYPASS HOMOGRF/STENT N/A 01/29/2022 @REPLACE AORTIC VALVE, OPEN, W\CPB, W\PROSTHETIC VALVE (WRVU 41.32) performed by Efrain Bah MD at [facility] MAIN OR ??? PRO FABRIZIO VENT MUSC FOR IHSS N/A 01/29/2022 @VENTRICULOMYOTOMY (-MYECTOMY) FOR IDIOPATHIC HYPERTROPHIC SUBAORTIC STENOSIS (WRVU 36.56) performed by Efrain Bah MD at [facility] MAIN OR Prior To Admission Medications [...] Septal Myectomy Mark Waller was admitted to [facility] on 01/29/2022 via the Same DayProgram. [...] Wt 63.2 kg (139 lb 4.8 oz) KuP028% BMI 22.83 kg/m?? Patient Vitals for the [...] Administered Date(s) Administered ??? Influenza Vaccine (Novel) [id number], Injectable 04/06/2009 Smoking Status at Discharge: Social [...] not take or discontinue any prescription or lveu-cls-bqxwmsh medications without asking your doctor or pharmacist [...] Efrain Bah and/or the Cardiac Surgery Physician Dental Ceramist Helper Team may be reached at . Antibiotic [...] Please refer to the card with the [place] Heart Association Guidelines for more information. You have been provided with a copy of this card. Please refer to the [place] Heart Association Guidelines for more information. Good [...] Dr. Efrain Bah. You may use a [place] Track or treadmill but avoid any pulling [...] friends, go to a movie, go to methodist, etc. Heavy activities: No hunting, skiing, jogging, [...] should resume a low fat, low cholesterol, [place] Heart Association Diet. Driving: No driving until [...] while being managed by your PCP and/or Unloader. For future medication refills, please refer to your PCP and/or Unloader after your discharge from our service. Thank [...] the outpatient Phase 2 Cardiac Rehabilitation at [facility]. The patient agrees to a referral to this program. The referral will be sent at discharge and the patient should be contacted by the Program within 1- 2 weeks from discharge. Future Appointments and Orders Future Appointments and Orders Future Appointments Provider Department Dept Phone 03/04/2022 1:20 PM Mandeep Franco MD Cardiology at [facility] Arrive at: [facility] Area 4A [phone] 03/08/2022 10:15 AM [facility] DX ROOM 2 XRay at [facility] Arrive at: [facility] 3T [phone] Please go to [facility] 3T ([place] Location). 03/08/2022 11:00 AM ECHO REGULAR Non-Invasive Cardiology Lab [facility] Arrive at: [facility] 4A [phone] 03/08/2022 11:40 AM Efrain Bah MD Cardiac Surgery at [facility] Arrive at: [facility] [phone] 03/26/2022 3:15 PM Haresh Erwin MD Dermatology at [place] Arrive at: [facility] [address] [phone] Future Orders Complete By Expires Referral to Cardiac Rehab [[id number] Custom] As directed Process Instructions: If no progress note charted, please enter Clinical details in comments. Scheduling Instructions: Questions: My question or request is: s/p AVR. Cardiac rehab at [facility]. Referral to Home Health [REF34 Custom] As directed Process Instructions: If no progress note charted, please enter Clinical details in comments. Scheduling Instructions: Comments: Please evaluate Mark Waller for admission to Home Health. 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. [address] [place] [address] Start of care: 24 to 48 hours. [...] from this patient's PCP: Evelyne Hunt APRN [address] [facility] [address] All VNA agencies which cover the area of patient's residence have been reviewed, either verbally katia writing, and patient/family have chosen the home health care agency noted Questions: Disciplines Requested: Nursing Physical Therapy Arrangements for VNA/home care: As above. VN RN OR PCP TO PLEASE REMOVE CHEST TUBE SUTURES ON OR AFTER 02/08/22. Signed: Sahra Britton PA-C [facility] Section of Cardiac Surgery [facility] [address] FAX [phone] Date: 02/06/2022 CC: TENISHA Camp Joyce A, APRN [address] [facility] [address] documented in this encounter Discharge Instructions * [...] Efrain Bah and/or the Cardiac Surgery Physician Dental Ceramist Helper Team may be reached at . Antibiotic [...] Please refer to the card with the [place] Heart Association Guidelines for more information. You have been provided with a copy of this card. Please refer to the [place] Heart Association Guidelines for more information. Good [...] Dr. Efrain Bah. You may use a [place] Track or treadmill but avoid any pulling [...] friends, go to a movie, go to [employer], etc. Heavy activities: No hunting, skiing, jogging, snow shoveling, snowmobiling, lawn mowing, swimming,golf or tennis until after your return appointment with the surgeon. Do not ride motorcycles, ATSkyRank'stractors or horses. Avoid the use of a [...] should resume a low fat, low cholesterol, [place] Heart Association Diet. Driving: No driving until [...] while being managed by your PCP and/or Unloader. For future medication refills, please refer to your PCP and/or Unloader after your discharge from our service. Thank [...] the outpatient Phase 2 Cardiac Rehabilitation at [facility]. The patient agrees to a referral to [...] 0600 and on the weekends please page [phone]. * Sahra Britton PA - 02/05/2022 8:47 [...] 0600 and on the weekends please page [phone]. * Maddie Hernandez, PT - 02/04/2022 4:53 [...] 3 steps to etner. Pt was indep WOOL GROWER. She does not use a device. ?? [...] does also have a recliner for home ([employer]) ?? Pt stood with supervision. Ambu;ated about 300 ft on level without device with good brandon and arm swing and posture. ?? Pt ascended and descended a flight of stairs without difficulty. ?? Pt left sitting EOB, visiting with family. Education: reviewed precautions and rationale, reviewed post-op stretched and DB and coughing technique.Discussed walking as best rehab exercise . Assessment: Mark Eber Luisrhonda was seen today for physical therapy treatment [...] with plan as stated. Time IN / OUT:3969-8435 Total Minutes, Physical Therapy: 28 Billing Code: [id number] MADDIE HERNANDEZ PT Pager: [phone] Physical Therapy Inpatient Rehabilitation Department * Addis [...] JUAN CDI T/L/D/W: Assessment/Plan: 61 y.o. female 6 [...] 0600 and on the weekends please page [phone]. * Cici Shipley, TENISHA - 02/03/2022 10:04 AM EDT Cardiac Surgery [...] Heart Rate from SpO2: [64 bpm-95 bpm] 10/15 0701 - 02/03 0700 In: 1240.4 [P.O.:625; I.V.:615.4] Out: 1300 [Urine:1300] Admit weight: 61.14 kg Current weight: Weight: 63.9 kg (140 lb 12.8 oz) Physical Exam: General: Sitting in bed. No distress Neuro: Awake and alert. Moves all extremities without focal deficit. Lungs: Non-labored respirations on room air Heart: regular, no murmur, gallop, rub Abdomen: Soft, nontender Ext: WWP, no edema Incisions: RN ORTHOPAEDICS CDI T/L/D/W: Assessment/Plan: 61 y.o. female 5 [...] attending surgeon on rounds this morning. CICI SHIPLEY APRN 02/03/2022 Between the hours of 1800 - 0600 and on the weekends please page [phone]. * Mercedes Alcazar RN - 02/02/2022 5:59 PM EDT Pt a/ox4 no c/o CP. Pain managed w/ PRN and scheduled meds. PT on amiodarone gtt Started by provider on PO amiodarone see JUN. Pt ambulating around unit standby assist. See [...] 0600 and on the weekends please page [phone]. * Geoff Bauer PA - 02/01/2022 11:52 [...] Abdomen: Soft Ext: WWP, no edema Incisions: RN ORTHOPAEDICS CDI T/L/D/W: TPW Assessment/Plan: 61 y.o. female [...] 0600 and on the weekends please page [phone]. * Sherin Bay RN - 02/01/2022 6:11 [...] 3 steps to etner. Pt was indep WOOL GROWER. She does not use a device. Precautions/Special [...] Sternal incision CDI. Musculoskeletal: ROM: WFL Strength: Stephany DAVIDSON's 08/23 Bed Mobility: Supine ->Sit: supervision; log roll [...] functional performance as outlined inthis evaluation. ALESSANDRO R BABCOCK, PT Pager: [phone] Physical Therapy Inpatient Rehabilitation Department Time IN / OUT: 7439-5086 Total time: 20 mins eval * Cici Shipley, BI DATA MODELER - 01/31/2022 8:53 AM EDT Cardiac Surgery [...] Incisions: CDI without drainage or crepitus Tubes/Lines/Drains: marvin ladd, pw Assessment/Plan: 61 y.o. female 2 Days [...] attending surgeon on rounds this morning. CICI BYERSFIELD, BI DATA MODELER 01/31/2022 Between the hours of 1800 - 0600 and on the weekends please page [phone]. 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 Situational Awareness & Contingency Planning - cardiac rehab -d/c? Sherin Bay, DMITRY * Avtar Guido PA - 01/30/2022 8:45 [...] Rate from SpO2: [64 bpm-85 bpm] 01/29 07 - 01/30 0700 In: 69388.2 [P.O.:40; I.V.:58149.2] Out: 3076 [Urine:2270] CT 240/160/85 Admit weight: [...] 0600 and on the weekends please page [phone]. * Saul Steele RCP - 01/29/2022 12:52 [...] no events or notable issues. Respiratory Pager# [phone] documented in this encounter H&P Notes * [...] IR Mediport Placement 08/20/2019 Jourdan Lopez PA [facility] ??? IR MEDIPORT REMOVAL ?? 10/04/2020 ?? IR Mediport Removal 10/04/2020 Mahesh Wick MD [facility] ? ? PRG CATH PLSD CORONARY ART W/INJ FOR ANGIO W/R HEART CATH IMG S&I N/A 12/17/2021 ?? CORONARY ANGIOGRAPHY; W RHC performed by Cristóbal Cuevas MD at [facility] CATH LABS ??? PRO GINA SALP-OOPH W/OMENTECT, FREDI, RAD DISSECT N/A 07/20/2019 ?? @HYSTERECTOMY, FREDI, BSO, DEBULKING (WRVU 34.13) performed by Natalie Vallejo MD at [facility] MAIN OR ??? PRO COLONOSCOPY, REMV LESN, SNARE N/A 05/01/2021 ?? COLONOSCOPY, POLYPECTOMY, REMOVAL LESION BY SNARE (WRVU 4.67) performed by Arlin Agudelo MD at [facility] ENDOSCOPY ?? FH: + heart valve [...] to surgery. ?? Consent signed. * Efrain aBh MD - 01/28/2022 4:32 PM EDT 61 [...] IR Mediport Placement 08/20/2019 Jourdan Lopez PA [facility] ??? IR MEDIPORT REMOVAL ?? 10/04/2020 ?? IR Mediport Removal 10/04/2020 Mahesh Wick MD [facility] ? ? PRG CATH PLSD CORONARY ART W/INJ FOR ANGIO W/R HEART CATH IMG S&I N/A 12/17/2021 ?? CORONARY ANGIOGRAPHY; W RHC performed by Cristóbal Cuevas MD at [facility] CATH LABS ??? PRO GINA SALP-OOPH W/OMENTECT, FREDI, RAD DISSECT N/A 07/20/2019 ?? @HYSTERECTOMY, FREDI, BSO, DEBULKING (WRVU 34.13) performed by Natalie Vallejo MD at [facility] MAIN OR ??? PRO COLONOSCOPY, REMV LESN, SNARE N/A 05/01/2021 ?? COLONOSCOPY, POLYPECTOMY, REMOVAL LESION BY SNARE (WRVU 4.67) performed by Arlin Agudelo MD at [facility] ENDOSCOPY ?? FH: + heart valve [...] questions were answered. Pt [facility]. Problem: Adult Inpatient Plan [...] Contact information for follow-up Home Health & Hospice, [place] [address] CM confirmed VNA for INR Test tomorrow [...] plan. Office of Care Management Surgery Team Wood Flooring Specialist [email or web address] Pager #[phone] * Plan of Care - Giana Christian [...] reach. PLAN MOVING FORWARD: pain management monitor media monitor I/Os discharge planning as appropriate INDIVIDUALIZED FALL [...] monitoring, Wound care Agency Referrals: Not Applicable - [facility] following patient. Transportation: family or friend will [...] reach. PLAN MOVING FORWARD: pain management monitor media monitor I/Os discharge planning as appropriate INDIVIDUALIZED FALL [...] Quiroz RN - 02/01/2022 10:21 AM EDT [facility] CARDIAC REHABILITATION Mark Waller was seen today regarding participation in the outpatient Phase 2 Cardiac Rehabilitation at [facility]. The patient agrees to a referral to [...] bedside nurse, medical record, and Patient Mark Waller Introduced self/reviewed role; services accepted. Reason for Hospitalization: valve surgery Covid Vaccination Status: 1st, 2nd & booster (X5 w/Pfizer) Last COVID test: Lab Results Component Value Date [id number] Not Detected 08/08/2020 Past medical History: Past [...] surrogate would be surrogate decision maker per [place] surrogate decision making law. (Only good for 180 days) Any patient receiving care in [place] must abide by [place] law. The hierarchy for surrogate decision making [...] (i) The agent with financial power of compliance attorney or a conservator appointed in accordance [...] tub/shower, tub bench Home Address confirmed as: [address] [address] Social & Family Supports: All names listed below confirmed with patient as current and correct Extended Emergency Contact Information Primary Emergency Contact: Sandoval Waller Address: [address] [address] [facility] Mobile Relation: Spouse Secondary Emergency Contact: [place] [address] [facility] Mobile Relation: Friend Current Care Provided by: [...] not?: N/A Prescription Coverage: Yes Preferred Pharmacy: [facility] - [place], [place] - [address] [facility] [address] [address] - [place], [place] - [address] [facility] [address] [facility] [address] [place] Status: Patient is a : No Primary Care Provider: Evelyne Hunt APRN [phone] Patient/Caregiver Goals of Treatment: When medically stable discharge to home. Potential Needs for Transition of Care: home health care Agency Referrals: I have met with the patient to: ?? discuss discharge planning needs. ?? provide the [facility], Office of Care Management letter from the [employer] Keeper pertaining to rehabreferrals. ?? provide a letter describing our affiliations within the [facility] and educate about their right to choose where referrals are sent. ?? provide a list of Home Health Agencies / Durable Medical Equipment vendors which serve their preferred geographic area. ?? provided patient with [facility] Star Quality Rating handout. They have requested referrals to: [facility] [employer]. [address] [place] [address] Note routed to a Patient Consumer Marketer who will communicate referrals to facilities and [...] Operative Note Patient Name: Mark Waller : [id number] MR#: [id number] Case Date: 01/29/2022 Surgeon: Surgeon(s) and Role: * Efrain Bah MD - Primary * Avtar Guido PA - Physician Dental Ceramist Helper Preoperative diagnosis: , RICHELLE Postoperative diagnosis: , [...] during surgery: AORTIC VALVE, LV MUSCLE Disposition: [facility] Condition: STABLE CONDUCT OF CARDIOPULMONARY BYPASS: Venous [...] Bah MD - 01/29/2022 8:38 AM EDT [facility] Operative Note Patient Name: Mark Waller : [id number] MR#: [id number] Case Date: 01/29/2022 Surgeon: Surgeon(s) and Role: * Efrain Bah MD - Primary * Avtar Guido PA - Physician Dental Ceramist Helper Preoperative diagnosis: , RICHELLE Postoperative diagnosis: , [...] 9:[address] Scan at [place] [id number] Xavier Malhotra MD [facility] [place] [address] 12/29/2023 Hospital Encounter [place] [phone] Xavier Malhotra MD [facility] [place] [address] Paroxysmal atrial fibrillation 12/29/2023 7:30 AM EDT - 12/29/2023 12:00 PM EDT Surgery [place]rophys[place] [phone] Xavier Malhotra MD [facility] [place] [address] ELECTROPHYSIOLOGY PROCEDURE 01/14/2024 10:40 AM EDT Office Visit Cardiology at [address] [phone] Carmen Castaneda PA [facility] [place] [address] Scheduled Procedures Name Priority Associated Diagnoses Date/Ti [...] Patient Facing Action Plan Lani Love, [facility] Note: Maintain control [...] POC Routine 8:35 AM EDT Fabrizio Vent [facility] For Ihss ([id number]) 01/29/2022 7:37 AM EDT , RICHELLE Replacement Prosthetic Aortic Valve Open W Cardiopulmonary Bypass Homogrf/Stent ([id number]) 01/29/2022 7:37 AM EDT , RICHELLE TRANSESOPHAGEAL [...] Prothrombin Time 25.7(H) 9.4 - 12.5 sec [facility] International Normalization Ratio 2.3 [facility] Comment: An INR <2.0 indicates [...] MD HEMATOLOGY ORDERAB LES Performing Organization Address [facility] Co de Phone Number [facility] [place] [address] * Cortisol (02/06/2022 3:45 AM EDT) Cortisol 24.8 mcg/dL [facility] Comment: Reference ranges: ??AM (6-10am): ??4.8-19.5 mcg/dL ??PM (4-8pm) : ??2.5-11.9 mcg/dL Blood 02/06/2022 3:45 AM EDT 02/06/2022 3:55 AM EDT Narrative Resulting Agency Comment Spec In Lab Efrain Bah MD CHEMISTRY ORDERABL ES Performing Organization Address [facility] Co de Phone Number [facility] [place] [address] * Potassium (02/06/2022 3:45 AM EDT) Potassium 3.6 3.5 - 5.0 mmol/L [facility] Comment: Please note: ??Patients [...] MD CHEMISTRY ORDERABL ES Performing Organization Address [facility] Co de Phone Number [facility] [place] [address] * (ABNORMAL) Hepatic Function Panel (02/06/2022 3:45 AM EDT) Protein, Total 5.9(L) 6.1 - 8.0 g/dL [facility] Albumin 3.7 3.2 - 5.2 g/dL [facility] Aspartate Aminotransferase 16 0 - 30 unit/L [facility] Alanine Aminotransferase 27 0 - 30 unit/L [facility] Alkaline Phosphatase 81 35 - 105 unit/L [facility] Bilirubin, Total 0.4 0.2 - 1.3 mg/dL [facility] Bilirubin, Direct 0.1 0.0 - 0.3 mg/dL [facility] Blood 02/06/2022 3:45 AM EDT 02/06/2022 3:55 AM EDT Narrative Resulting Agency Comment Spec In Lab Efrain Bah MD CHEMISTRY ORDERABL ES Performing Organization Address [facility] Co de Phone Number [facility] [place] [address] * (ABNORMAL) Prothrombin Time (02/05/2022 4:08 AM EDT) Prothrombin Time 13.9(H) 9.4 - 12.5 sec [facility] International Normalization Ratio 1.2 [facility] Comment: An INR <2.0 indicates [...] MD HEMATOLOGY ORDERAB LES Performing Organization Address [facility] de Phone Number [facility] [place] [address] * Cortisol (02/05/2022 4:08 AM EDT) Cortisol 37.0 mcg/dL [facility] Comment: Reference ranges: ??AM (6-10am): ??4.8-19.5 mcg/dL ??PM (4-8pm) : ??2.5-11.9 mcg/dL Blood 02/05/2022 4:08 AM EDT 02/05/2022 4:18 AM EDT Narrative Resulting Agency Comment Spec In Lab Efrain Bah MD CHEMISTRY ORDERABL ES Performing Organization Address [facility] de Phone Number [facility] [place] [address] * Potassium (02/05/2022 4:08 AM EDT) Potassium 3.7 3.5 - 5.0 mmol/L [facility] Comment: Please note: ??Patients [...] MD CHEMISTRY ORDERABL ES Performing Organization Address [facility]/ZIP Co de Phone Number [facility] [place] [address] * (ABNORMAL) Prothrombin Time (02/04/2022 11:58 AM EDT) Prothrombin Time 13.3(H) 9.4 - 12.5 sec [facility] International Normalization Ratio 1.2 [facility] Comment: An INR <2.0 indicates [...] MD HEMATOLOGY ORDERAB LES Performing Organization Address [facility]/ZIP Co de Phone Number [facility] [place] [address] * Cortisol (02/04/2022 3:00 AM EDT) Cortisol >63.0 mcg/dL [facility] Comment: Reference ranges: ??AM (6-10am): ??4.8-19.5 mcg/dL ??PM (4-8pm) : ??2.5-11.9 mcg/dL Blood 02/04/2022 3:00 AM EDT 02/04/2022 3:15 AM EDT Narrative Resulting Agency Comment Spec In Lab Efrain Bah MD CHEMISTRY ORDERABL ES Performing Organization Address [facility]/ZIP Co de Phone Number [facility] [place] [address] * Potassium (02/04/2022 3:00 AM EDT) Potassium 4.1 3.5 - 5.0 mmol/L [facility] Comment: Please note: ??Patients [...] Organization Address City/[facility]/ZIP Co de Phone Number [facility] [place] [address] * Cortisol (02/03/2022 5:21 AM EDT) Cortisol 6.7 mcg/dL [facility] Comment: Reference ranges: ??AM (6-10am): ??4.8-19.5 mcg/dL ??PM (4-8pm) : ??2.5-11.9 mcg/dL Blood 02/03/2022 5:21 AM EDT 02/03/2022 5:38 AM EDT Narrative Resulting Agency Comment Spec In Lab Efrain Bah MD CHEMISTRY ORDERABL ES Performing Organization Address City/[facility]/ZIP Co de Phone Number [facility] [place] [address] * Potassium (02/03/2022 5:21 AM EDT) Potassium 4.0 3.5 - 5.0 mmol/L [facility] Comment: Please note: ??Patients [...] MD CHEMISTRY ORDERABL ES Performing Organization Address [facility] Co de Phone Number [facility] [place] [address] * Cortisol (02/02/2022 3:13 AM EDT) Cortisol 5.4 mcg/dL [facility] Comment: Reference ranges: ??AM (6-10am): ??4.8-19.5 mcg/dL ??PM (4-8pm) : ??2.5-11.9 mcg/dL Blood 02/02/2022 3:13 AM EDT 02/02/2022 3:25 AM EDT Narrative Resulting Agency Comment Spec In Lab Efrain Bah MD CHEMISTRY ORDERABL ES Performing Organization Address [facility] de Phone Number [facility] [place] [address] * Potassium (02/02/2022 3:13 AM EDT) Potassium 3.7 3.5 - 5.0 mmol/L [facility] Comment: Please note: ??Patients [...] MD CHEMISTRY ORDERABL ES Performing Organization Address [facility] Co de Phone Number [facility] [place] [address] * XR Chest PA & Lateral (Generic) [...] who have questions please contact the health primary care nurse that requested your imaging first. ? Narrative [...] patients who have questions please contactthe health primary care nurse that requested your imaging first. Efrain Bah MD IMG DX ORDERABLES * (ABNORMAL) Differential, Automated (02/01/2022 3:16 AM EDT) Neutrophil % 74.5 % [facility] Neutrophil Absolute 6.64(H) 1.70 - 6.10 x10(3)/mc L [facility] Lymph % 14.8 % [facility] Lymphocytes Abs 1.3 0.9 - 3.2 x10(3)/mc L [facility] Monocyte % 9.4 % [facility] Monocyte Abs 0.8 0.3 - 0.9 x10(3)/mc L [facility] Eos % 0.2 % [facility] Eosinophils Abs 0.0 0.0 - 0.4 x10(3)/mc L [facility] Basophil % 0.3 % [facility] Baso Absolute 0.0 0.0 - 0.1 x10(3)/mc L [facility] Immature Gran % 0.80 % [facility] Comment: Immature granulocytes(IG's)percentage and absolute count will include metamyelocytes, myelocytes, and promyelocytes. Blood smears from CBCs yielding IG's will be scanned manually for concordance. If this scan disagrees with the automated IG or if promyelocytes are noted, a manual differential will be performed. Immature Gran Absolute 0.07(H) 0.00 - 0.04 x10(3)/mc L [facility] Blood 02/01/2022 3:16 AM EDT 02/01/2022 3:36 AM EDT Narrative Resulting Agency Comment Spec In Lab [facility] SEARS HEMATOLOGY ORDERABLE S [facility] [place] [address] * (ABNORMAL) Hemogram (02/01/2022 3:16 AM EDT) White Blood Cell 8.9 4.0 - 9.5 x10(3)/mc L [facility] Red Blood Cell 2.53(L) 4.00 - 5.21 x10(6)/ L [facility] Hemoglobin 9.6(L) 11.7 - 15.5 g/dL [facility] Hematocrit 27.4(L) 35.7 - 45.8 % [facility] Mean Cell Volume 108.3(H) 82.6 - 94.4 fL [facility] Mean Cell Hemoglobin 37.9(H) 27.1 - 32.0 pg [facility] Mean Cell Hemoglobin Concentration 35.0 31.7 - 35.0 g/dL [facility] Platelet 145 145 - 357 x10(3)/mc L [facility] RDW Standard Deviation 46.8(H) 37.0 - 46.0 fL [facility] RDW coefficient of variation 11.9 11.5 - 14.1 % [facility] Mean Platelet Volume 9.9 7.6 - 12.9 [facility] NRBC% auto 0.0 % [facility] NRBC Absolute 0.000 0.000 - 0.000 x10(3)/ L [facility] Blood 02/01/2022 3:16 AM EDT 02/01/2022 3:36 AM EDT Narrative Resulting Agency Comment Spec In Lab [employer] SEARS HEMATOLOGY ORDERABLE S [facility] [place] [address] * (ABNORMAL) Basic Metabolic Panel (non-fasting) (02/01/2022 3:16 AM EDT) Glucose 95 65 - 199 mg/dL [facility] Comment:Diabetes: >=200 mg/d L plus symptoms Blood Urea Nitrogen 10 8 - 18 mg/dL [facility] Creatinine 0.64(L) 0.70 - 1.20 mg/dL [facility] Sodium 136 135 - 145 mmol/L [facility] Potassium 4.2 3.5 - 5.0 mmol/L [facility] Comment: Please note: ??Patients with WBC >100,000 may have falsely elevated Potassium levels. ??For accurate Potassium quantification in these patients send serum separator tube (gold top) for subsequent determinations. ??Contact the Clinical Chemistry Laboratory if there are any questions. Chloride 103 98 - 107 mmol/L [facility] Carbon Dioxide 24 22 - 31 mmol/L [facility] Anion Gap 9 5 - 15 mmol/L [facility] Calcium 8.7 8.5 - 10.5 mg/dL [facility] Est Glomerular Filtration Rate 100 >=60 mL/min/1. 73 m?? [facility] Comment: This patient's estimated [...] MD CHEMISTRY ORDERABL ES Performing Organization Address [facility] Co de Phone Number [facility] [place] [address] * EKG 12 Lead (01/31/2022 3:58 PM EDT) Ventricular rate 80 BPM MUSE SYSTEM QRS Duration 130 ms MUSE SYSTEM Q-T Interval 416 ms MUSE SYSTEM QTC Calculated (Bezet) 479 ms MUSE SYSTEM Calculated R [place] 19 degrees MUSE SYSTEM Calculated T [place] 25 degrees MUSE SYSTEM INTERPRETATION ? ectopic atrial rhythm (p waves in v5) versus junctional rhythm Right bundle branch block Abnormal ECG Confirmed by MD Jed, Saleem ([id number]) on 02/01/2022 8:38:05 AM MUSE SYSTEM 01/31/2022 3:58 PM EDT 02/01/2022 8:38 AM EDT Efrain Bah MD ECG ORDERABLES Performing Organization Address [facility] Phone Number MUSE SYSTEM * Lavender Tube HOLD (01/31/2022 3:37 AM EDT) Lavender Hold Sample in lab. [facility] Blood Venous Draw / Unknown 01/31/2022 3:37 AM EDT 01/31/2022 4:31 AM EDT [facility] SEARS HEMATOLOGY ORDERABLE S Performing Organization Address [facility] Co de Phone Number [facility] [place] [address] * (ABNORMAL) Basic Metabolic Panel (non-fasting) (01/31/2022 3:37 AM EDT) Glucose 89 65 - 199 mg/dL [facility] Comment:Diabetes: >=200 mg/d L plus symptoms Blood Urea Nitrogen 14 8 - 18 mg/dL [facility] Creatinine 0.67(L) 0.70 - 1.20 mg/dL [facility] Sodium 130(L) 135 - 145 mmol/L [facility] Potassium 4.1 3.5 - 5.0 mmol/L [facility] Comment: Please note: ??Patients with WBC >100,000 may have falsely elevated Potassium levels. ??For accurate Potassium quantification in these patients send serum separator tube (gold top) for subsequent determinations. ??Contact the Clinical Chemistry Laboratory if there are any questions. Chloride 100 98 - 107 mmol/L [facility] Carbon Dioxide 23 22 - 31 mmol/L [facility] Anion Gap 7 5 - 15 mmol/L [facility] Calcium 8.7 8.5 - 10.5 mg/dL [facility] Est Glomerular Filtration Rate 99 >=60 mL/min/1. 73 m?? [facility] Comment: This patient's estimated [...] Lab Efrain Bah MD CHEMISTRY ORDERABL ES [facility] [place] [address] * Magnesium (01/31/2022 3:37 AM EDT) Magnesium 0.73 0.69 - 1.07 mmol/L [facility] Blood 01/31/2022 3:37 AM EDT 01/31/2022 4:30 AM EDT Narrative Resulting Agency Comment Spec In Lab Efrain Bah MD CHEMISTRY ORDERABL ES Performing Organization Address City/[facility]/ZIP Co de Phone Number [facility] [place] [address] * POCT Glucose (01/30/2022 11:04 AM EDT) Glucose, POC 118 65 - 199 mg/dL [facility] Comment: Supplemental ranges: <140 mg/dL before meals <180 mg/dL all other times of the day Blood 01/30/2022 11:0 4 AM EDT 01/30/2022 11:04 AM EDT Efrain Bah MD POINT OF CARE TEST ORDERABLES Performing Organization Address [facility]/ZIP Co de Phone Number [facility] [place] [address] * POCT Glucose (01/30/2022 7:56 AM EDT) Glucose, POC 128 65 - 199 mg/dL [facility] Comment: Supplemental ranges: <140 mg/dL before meals <180 mg/dL all other times of the day Blood 01/30/2022 7:56 AM EDT 01/30/2022 7:56 AM EDT Efrain Bah MD POINT OF CARE TEST ORDERABLES Performing Organization Address City/[facility]/ZIP Co de Phone Number [facility] [place] [address] * POCT Glucose (01/30/2022 4:14 AM EDT) Glucose, POC 111 65 - 199 mg/dL [facility] Comment: Supplemental ranges: <140 mg/dL before meals <180 mg/dL all other times of the day Blood 01/30/2022 4:14 AM EDT 01/30/2022 4:14 AM EDT Efrain Bah MD POINT OF CARE TEST ORDERABLES [facility] [place] [address] * (ABNORMAL) Differential, Automated (01/30/2022 2:09 AM EDT) Neutrophil % 85.7 % [facility] Neutrophil Absolute 10.11(H) 1.70 - 6.10 x10(3)/mc L [facility] Lymph % 6.3 % [facility] Lymphocytes Abs 0.7(L) 0.9 - 3.2 x10(3)/mc L [facility] Monocyte % 7.4 % [facility] Monocyte Abs 0.9 0.3 - 0.9 x10(3)/mc L [facility] Eos % 0.0 % [facility] Eosinophils Abs 0.0 0.0 - 0.4 x10(3)/mc L [facility] Basophil % 0.2 % [facility] Baso Absolute 0.0 0.0 - 0.1 x10(3)/mc L [facility] Immature Gran % 0.40 % [facility] Comment: Immature granulocytes(IG's)percentage and absolute count will include metamyelocytes, myelocytes, and promyelocytes. Blood smears from CBCs yielding IG's will be scanned manually for concordance. If this scan disagrees with the automated IG or if promyelocytes are noted, a manual differential will be performed. Immature Gran Absolute 0.05(H) 0.00 - 0.04 x10(3)/mc L [facility] Blood 01/30/2022 2:09 AM EDT 01/30/2022 2:17 AM EDT Narrative Resulting Agency Comment Spec In Lab [employer] SEARS HEMATOLOGY ORDERABLE S [facility] [place] [address] * (ABNORMAL) Hemogram (01/30/2022 2:09 AM EDT) White Blood Cell 11.8(H) 4.0 - 9.5 x10(3)/mc L [facility] Red Blood Cell 2.94(L) 4.00 - 5.21 x10(6)/mc L [facility] Hemoglobin 11.0(L) 11.7 - 15.5 g/dL [facility] Hematocrit 30.7(L) 35.7 - 45.8 % [facility] Mean Cell Volume 104.4(H) 82.6 - 94.4 fL [facility] Mean Cell Hemoglobin 37.4(H) 27.1 - 32.0 pg [facility] Mean Cell Hemoglobin Concentration 35.8(H) 31.7 - 35.0 g/dL [facility] Platelet 151 145 - 357 x10(3)/mc L [facility] RDW Standard Deviation 46.4(H) 37.0 - 46.0 fL [facility] RDW coefficient of variation 12.0 11.5 - 14.1 % [facility] Mean Platelet Volume 9.4 7.6 - 12.9 fL [facility] NRBC% auto 0.0 % [facility] NRBC Absolute 0.000 0.000 - 0.000 x10(3)/mc L [facility] Blood 01/30/2022 2:09 AM EDT 01/30/2022 2:17 AM EDT Narrative Resulting Agency Comment Spec In Lab [facility] SEARS HEMATOLOGY ORDERABLE S [facility] [place] [address] * (ABNORMAL) Basic Metabolic Panel (non-fasting) (01/30/2022 2:09 AM EDT) Glucose 129 65 - 199 mg/dL [facility] Comment:Diabetes: >=200 mg/d L plus symptoms Blood Urea Nitrogen 9 8 - 18 mg/dL [facility] Creatinine 0.51(L) 0.70 - 1.20 mg/dL [facility] Sodium 136 135 - 145 mmol/L [facility] Potassium 4.4 3.5 - 5.0 mmol/L [facility] Comment: Please note: ??Patients with WBC >100,000 may have falsely elevated Potassium levels. ??For accurate Potassium quantification in these patients send serum separator tube (gold top) for subsequent determinations. ??Contact the Clinical Chemistry Laboratory if there are any questions. Chloride 105 98 - 107 mmol/L [facility] Carbon Dioxide 22 22 - 31 mmol/L [facility] Anion Gap 9 5 - 15 mmol/L [facility] Calcium 8.3(L) 8.5 - 10.5 mg/dL [facility] Est Glomerular Filtration Rate 106 >=60 mL/min/1. 73 m?? [facility] Comment: This patient's estimated [...] Organization Address City/[facility]/ZIP Co de Phone Number [facility] [place] [address] * POCT Glucose (01/29/2022 11:19 PM EDT) Glucose, POC 128 65 - 199 mg/dL [facility] Comment: Supplemental ranges: <140 mg/dL before meals <180 mg/dL all other times of the day Blood 01/29/2022 11:1 9 PM EDT 01/29/2022 11:19 PM EDT Efrain Bah MD POINT OF CARE TEST ORDERABLES Performing Organization Address [facility]/ZIP Co de Phone Number [facility] [place] [address] * POCT Glucose (01/29/2022 9:06 PM EDT) Glucose, POC 129 65 - 199 mg/dL [facility] Comment: Supplemental ranges: <140 mg/dL before meals <180 mg/dL all other times of the day Blood 01/29/2022 9:06 PM EDT 01/29/2022 9:06 PM EDT Efrain Bah MD POINT OF CARE TEST ORDERABLES Performing Organization Address City/[facility]/ZIP Co de Phone Number [facility] [place] [address] * (ABNORMAL) Troponin (01/29/2022 3:05 PM EDT) Troponin-T, High Sensitivity 524(H) <=14 ng/L [facility] Comment: This patient's troponin [...] troponin value can be found in the [facility] Laboratory Test Catalog Troponin - [facility] Test Catalog Reference: Fourth [place] Definition of Myocardial Infarction. Journal of the [place] [employer] 2018;72:1114-5313 Blood 01/29/2022 3:05 PM EDT 01/29/2022 3:15 PM EDT Narrative Resulting Agency Comment Spec In Lab Efrain Bah MD CHEMISTRY ORDERABL ES Performing Organization Address City/[facility]/ZIP Co de Phone Number [facility] [place] [address] * (ABNORMAL) Hemoglobin (01/29/2022 3:05 PM EDT) Hemoglobin 11.3(L) 11.7 - 15.5 g/dL [facility] Blood 01/29/2022 3:05 PM EDT 01/29/2022 3:15 PM EDT Narrative Resulting Agency Comment Spec In Lab Efrain Bah MD HEMATOLOGY ORDERAB LES Performing Organization Address City/[facility]/ZIP Co de Phone Number [facility] [place] [address] * Potassium (01/29/2022 3:05 PM EDT) Potassium 3.6 3.5 - 5.0 mmol/L [facility] Comment: Please note: ??Patients [...] Lab Efrain Bah MD CHEMISTRY ORDERABL ES [facility] [place] [address] * (ABNORMAL) BLOOD GAS 2 ARTERIAL (01/29/2022 3:02 PM EDT) pH, Arterial 7.39 7.35 - 7.45 [facility] PCO2, Arterial 41 35 - 45 mmHg [facility] PO2, Arterial 98 85 - 104 mmHg [facility] Bicarbonate, Arterial 24.3 20.0 - 26.0 mmol/L [facility] Base Excess, Arterial -0.7 -3.0 - 3.0 mmol/L [facility] Hgb Blood Gas 12.3 11.7 - 15.5 g/dL [facility] Oxyhemoglobin, Arterial 96.0 94.0 - 97.0 % [facility] Carboxyhemoglob in, Arterial 0.3 % [facility] Comment: Nonsmokers: 0.5-1.5% COHB Smokers: Variable, but usually less than 10% Toxic: 20-30% COHB Lethal: Greater than 60% COHB Methemoglobin, Arterial 0.6 <=1.5 % [facility] Na Whole Blood 137 135 - 145 mmol/L [facility] K Whole Blood 3.4(L) 3.5 - 5.0 mmol/L [facility] Comment: Please note: Patients with WBC >100,000 may have falsely elevated Potassium levels. Contact the Clinical Chemistry Laboratory if there are any questions. ICa Whole Blood 1.15 1.15 - 1.33 mmol/L [facility] Comment: Note: ??Total bilirubin higher than 20 mg/dL may lead to falsely low ionized calcium. CL Whole Blood 108(H) 98 - 107 mmol/L [facility] Gluc Whole Bld 159 65 - 199 mg/dL [facility] Comment:Diabetes: >=200 mg/d L plus symptoms. Lactate WB 0.9 0.5 - 2.2 mmol/L [facility] Blood 01/29/2022 3:02 PM EDT 01/29/2022 3:02 PM EDT Efrain Bah MD POINT OF CARE TEST ORDERABLES [facility] [place] [address] * POCT Glucose (01/29/2022 2:36 PM EDT) Glucose, POC 132 65 - 199 mg/dL [facility] Comment: Supplemental ranges: <140 mg/dL before meals <180 mg/dL all other times of the day Blood 01/29/2022 2:36 PM EDT 01/29/2022 2:36 PM EDT Efrain Bah MD POINT OF CARE TEST ORDERABLES [facility] [place] [address] * POCT Glucose (01/29/2022 1:14 PM EDT) Glucose, POC 90 65 - 199 mg/dL [facility] Comment: Supplemental ranges: <140 mg/dL before meals <180 mg/dL all other times of the day Blood 01/29/2022 1:14 PM EDT 01/29/2022 1:14 PM EDT Efrain Bah MD POINT OF CARE TEST ORDERABLES [facility] [place] [address] * XR Chest One View (01/29/2022 1:09 [...] who have questions please contact the health primary care nurse that requested your imaging first. ? Electronically signed by: Regi Michel MD, [facility] ([phone]), at 01/29/2022 1:32 PM Narrative 01/29/2022 1:32 [...] patients who have questions please contactthe health primary care nurse that requested your imaging first. Electronically signed by: Regi Michel MD, [facility]([phone]), at 01/29/2022 1:32 PM Efrain Bah MD IMG DX ORDERABLES * (ABNORMAL) Troponin (01/29/2022 1:09 PM EDT) Troponin-T, High Sensitivity 542(H) <=14 ng/L [facility] Comment: This patient's troponin [...] troponin value can be found in the [facility] Laboratory Test Catalog Troponin - [facility] Test Catalog Reference: Fourth [place] Definition of Myocardial Infarction. Journal of the [place] [employer] 2018;72:8521-9036 Blood 01/29/2022 1:09 PM EDT 01/29/2022 1:21 PM EDT Narrative Resulting Agency Comment Spec In Lab Efrain Bah MD CHEMISTRY ORDERABL ES Performing Organization Address City/State/[facility] Co de Phone Number [facility] [place] [address] * (ABNORMAL) BLOOD GAS 2 ARTERIAL (01/29/2022 1:05 PM EDT) pH, Arterial 7.33(L) 7.35 - 7.45 [facility] PCO2, Arterial 42 35 - 45 mmHg [facility] PO2, Arterial 309(H) 85 - 104 mmHg [facility] Bicarbonate, Arterial 21.7 20.0 - 26.0 mmol/L [facility] Base Excess, Arterial -4.3(L) -3.0 - 3.0 mmol/L [facility] Hgb Blood Gas 11.8 11.7 - 15.5 g/dL [facility] Oxyhemoglobin, Arterial 98.0(H) 94.0 - 97.0 % [facility] Carboxyhemoglob in, Arterial 0.3 % [facility] Comment: Nonsmokers: 0.5-1.5% COHB Smokers: Variable, but usually less than 10% Toxic: 20-30% COHB Lethal: Greater than 60% COHB Methemoglobin, Arterial 0.8 <=1.5 % [facility] Na Whole Blood 140 135 - 145 mmol/L [facility] K Whole Blood 3.2(L) 3.5 - 5.0 mmol/L [facility] Comment: Please note: Patients with WBC >100,000 may have falsely elevated Potassium levels. Contact the Clinical Chemistry Laboratory if there are any questions. ICa Whole Blood 1.14(L) 1.15 - 1.33 mmol/L [facility] Comment: Note: ??Total bilirubin higher than 20 mg/dL may lead to falsely low ionized calcium. CL Whole Blood 112(H) 98 - 107 mmol/L [facility] Gluc Whole Bld 66 65 - 199 mg/dL [facility] Comment:Diabetes: >=200 mg/d L plus symptoms. Lactate WB 1.1 0.5 - 2.2 mmol/L [facility] FIO2 Art 100 % [facility] PF Ratio Art 309 [facility] Blood 01/29/2022 1:05 PM EDT 01/29/2022 1:05 PM EDT Efrain Bah MD POINT OF CARE TEST ORDERABLES [facility] [place] [address] * EKG 12 Lead (01/29/2022 1:04 PM EDT) Ventricular rate 70 BPM MUSE SYSTEM Atrial Rate 70 BPM MUSE SYSTEM P-R Interval 158 ms MUSE SYSTEM QRS Duration 106 ms MUSE SYSTEM Q-T Interval 468 ms MUSE SYSTEM QTC Calculated (Bezet) 505 ms MUSE SYSTEM Calculated P [place] 73 degrees MUSE SYSTEM Calculated R [place] -39 degrees MUSE SYSTEM Calculated T [place] 95 degrees MUSE SYSTEM INTERPRETATION Normal sinus rhythm Left axis deviation Left ventricular hypertrophy with repolarization abnormality ( R in aVL , Bryant product ) Cannot rule out Septal infarct , age undetermined Abnormal ECG When compared with ECG of 29-JAN-2022 07:10, (unconfirmed) QRS axis Shifted left Minimal criteria for Septal infarct are now Present T wave amplitude has increased in Inferior leads T wave inversion now evident in Lateral leads Confirmed by Froy Love ([id number]) on 02/13/2022 2:14:28 PM MUSE SYSTEM 01/29/2022 1:04 PM EDT 02/13/2022 2:14 PM EDT Efrain Bah MD ECG ORDERABLES MUSE SYSTEM * (ABNORMAL) BLOOD GAS 2 ARTERIAL (01/29/2022 11:38 AM EDT) pH, Arterial 7.36 7.35 - 7.45 [facility] PCO2, Arterial 46(H) 35 - 45 mmHg [facility] PO2, Arterial 361(H) 85 - 104 mmHg [facility] Bicarbonate, Arterial 25.6 20.0 - 26.0 mmol/L [facility] Base Excess, Arterial 0.3 -3.0 - 3.0 mmol/L [facility] Hgb Blood Gas 9.2(L) 11.7 - 15.5 g/dL [facility] Oxyhemoglobin, Arterial 99.1(H) 94.0 - 97.0 % [facility] Carboxyhemoglob in, Arterial 0.3 % [facility] Comment: Nonsmokers: 0.5-1.5% COHB Smokers: Variable, but usually less than 10% Toxic: 20-30% COHB Lethal: Greater than 60% COHB Methemoglobin, Arterial 0.3 <=1.5 % [facility] Na Whole Blood 136 135 - 145 mmol/L [facility] K Whole Blood 3.6 3.5 - 5.0 mmol/L [facility] Comment: Please note: Patients with WBC >100,000 may have falsely elevated Potassium levels. Contact the Clinical Chemistry Laboratory if there are any questions. ICa Whole Blood 1.19 1.15 - 1.33 mmol/L [facility] Comment: Note: ??Total bilirubin higher than 20 mg/dL may lead to falsely low ionized calcium. CL Whole Blood 109(H) 98 - 107 mmol/L [facility] Gluc Whole Bld 152 65 - 199 mg/dL [facility] Comment:Diabetes: >=200 mg/d L plus symptoms. Lactate WB 2.5(H) 0.5 - 2.2 mmol/L [facility] Blood 01/29/2022 11:3 8 AM EDT 01/29/2022 11:38 AM EDT Efrain Bah MD POINT OF CARE TEST ORDERABLES Performing Organization Address City/State/[facility] Co de Phone Number [facility] [place] [address] * (ABNORMAL) Differential, Automated (01/29/2022 11:30 AM EDT) Neutrophil % 81.8 % [facility] Neutrophil Absolute 11.00(H) 1.70 - 6.10 x10(3)/mc L [facility] Lymph % 15.2 % [facility] Lymphocytes Abs 2.0 0.9 - 3.2 x10(3)/mc L [facility] Monocyte % 1.0 % [facility] Monocyte Abs 0.1(L) 0.3 - 0.9 x10(3)/mc L [facility] Eos % 0.5 % [facility] Eosinophils Abs 0.1 0.0 - 0.4 x10(3)/mc L [facility] Basophil % 0.4 % [facility] Baso Absolute 0.1 0.0 - 0.1 x10(3)/mc L [facility] Immature Gran % 1.10 % [facility] Comment: Immature granulocytes(IG's)percentage and absolute count will include metamyelocytes, myelocytes, and promyelocytes. Blood smears from CBCs yielding IG's will be scanned manually for concordance. If this scan disagrees with the automated IG or if promyelocytes are noted, a manual differential will be performed. Immature Gran Absolute 0.15(H) 0.00 - 0.04 x10(3)/ L [facility] Blood 01/29/2022 11:3 0 AM EDT 01/29/2022 11:46 AM EDT Narrative Resulting Agency Comment Spec In Lab Kate Deleon CRNA HEMATOLOGY TONJA SUAREZ [facility] [place] [address] * (ABNORMAL) Hemogram (01/29/2022 11:30 AM EDT) White Blood Cell 13.4(H) 4.0 - 9.5 x10(3)/[facility] Red Blood Cell 2.22(L) 4.00 - 5.21 x10(6)/[facility] Hemoglobin 8.4(L) 11.7 - 15.5 g/dL [facility] Hematocrit 24.2(L) 35.7 - 45.8 % [facility] Comment: This result has been called to KYLE CORTÉS by Cristóbal Toth on 01 29 2022 at 1151, and has been read back. Mean Cell Volume 109.0(H) 82.6 - 94.4 fL [facility] Mean Cell Hemoglobin 37.8(H) 27.1 - 32.0 pg [facility] Mean Cell Hemoglobin Concentration 34.7 31.7 - 35.0 g/dL [facility] Platelet 154 145 - 357 x10(3)/mc L [facility] RDW Standard Deviation 46.8(H) 37.0 - 46.0 fL [facility] RDW coefficient of variation 11.9 11.5 - 14.1 % [facility] Mean Platelet Volume 9.0 7.6 - 12.9 fL [facility] NRBC% auto 0.0 % [facility] NRBC Absolute 0.000 0.000 - 0.000 x10(3)/mc L [facility] Blood 01/29/2022 11:3 0 AM EDT 01/29/2022 11:46 AM EDT Narrative Resulting Agency Comment Spec In Lab Kate Deleon CRNA HEMATOLOGY TONJA SUAREZ Performing Organization Address [facility] Co de Phone Number [facility] [place] [address] * APTT (01/29/2022 11:30 AM EDT) Partial Thromboplastin Time 32 25 - 37 sec [facility] Comment: OR Result called by ?? BOWECM OR Results read back by: ? kyle cortés at 2022-01-29 12:01:08 The PTT is NOT appropriate for heparin monitoring. Use the Anti-Xa level for heparin monitoring (HEP UFH) or LMWH monitoring (HEP LMW). A PTT less than 37 seconds generally indicates adequate hemostasis. Blood 01/29/2022 11:3 0 AM EDT 01/29/2022 11:46 AM EDT Narrative Resulting Agency Comment Spec In Lab Randal Rivera MD HEMATOLOGY ORDERABLE S Performing Organization Address [facility] Co de Phone Number [facility] [place] [address] * (ABNORMAL) Prothrombin Time (01/29/2022 11:30 AM EDT) Prothrombin Time 18.2(H) 9.4 - 12.5 sec [facility] Comment: OR Result called by ?? BOWECM OR Results read back by: ? kyle cortés at 2022-01-29 12:01:08 International Normalization Ratio 1.6 [facility] Comment: OR Result called by [...] MD HEMATOLOGY ORDERABLE S Performing Organization Address [facility] Co de Phone Number [facility] [place] [address] * (ABNORMAL) Fibrinogen (01/29/2022 11:30 AM EDT) Fibrinogen 187(L) 200 - 393 mg/dL [facility] Comment: OR Result called by ?? JOSE OR Results read back by: ? kyle cortés at 2022-01-29 12:01:08 A fibrinogen level >100 mg/dL is adequate for hemostasis in most patients without underlying bleeding disorders. Blood 01/29/2022 11:3 0 AM EDT 01/29/2022 11:46 AM EDT Narrative Resulting Agency Comment Spec In Lab Randal Rivera MD HEMATOLOGY ORDERABLE S Performing Organization Address [facility] Co de Phone Number [facility] [place] [address] * (ABNORMAL) BLOOD GAS 2 ARTERIAL (01/29/2022 10:25 AM EDT) pH, Arterial 7.36 7.35 - 7.45 [facility] PCO2, Arterial 42 35 - 45 mmHg [facility] PO2, Arterial 390(H) 85 - 104 mmHg [facility] Bicarbonate, Arterial 23.3 20.0 - 26.0 mmol/L [facility] Base Excess, Arterial -2.2 -3.0 - 3.0 mmol/L [facility] Hgb Blood Gas 8.9(L) 11.7 - 15.5 g/dL [facility] Oxyhemoglobin, Arterial 98.8(H) 94.0 - 97.0 % [facility] Carboxyhemoglob in, Arterial 0.3 % [facility] Comment: Nonsmokers: 0.5-1.5% COHB Smokers: Variable, but usually less than 10% Toxic: 20-30% COHB Lethal: Greater than 60% COHB Methemoglobin, Arterial 0.3 <=1.5 % [facility] Na Whole Blood 132(L) 135 - 145 mmol/L [facility] K Whole Blood 5.6(H) 3.5 - 5.0 mmol/L [facility] Comment: Please note: Patients with WBC >100,000 may have falsely elevated Potassium levels. Contact the Clinical Chemistry Laboratory if there are any questions. ICa Whole Blood 0.98(L) 1.15 - 1.33 mmol/L [facility] Comment: Note: ??Total bilirubin higher than 20 mg/dL may lead to falsely low ionized calcium. CL Whole Blood 104 98 - 107 mmol/L [facility] Gluc Whole Bld 257(H) 65 - 199 mg/dL [facility] Comment:Diabetes: >=200 mg/d L plus symptoms. Lactate WB 1.3 0.5 - 2.2 mmol/L [facility] Blood 01/29/2022 10:2 5 AM EDT 01/29/2022 10:25 AM EDT Efrain Bah MD POINT OF CARE TEST ORDERABLES [facility] [place] [address] * Platelet count (01/29/2022 10:25 AM EDT) Platelet 212 145 - 357 x10(3)/mc L [facility] Immature Plt % 1.5 0.0 - 7.4 % [facility] Comment: Limitation of the Immature Platelet Fraction (IPF)-May be less reliable when the platelet count is less than 33f631/uL due to statistical imprecision. The IPF value [...] in a decreased state of production. References: [employer] The Clinical Value of the Immature Platelet Fraction (IPF) in Cell Recovery Document Number [id number] 09/2010 [employer] The Role of the Immature Platelet Fraction (IPF) in the Differential Diagnosis of Thrombocytopenia, Document [id number] V05/04/03 P014 Blood 01/29/2022 10:2 5 AM EDT 01/29/2022 10:28 AM EDT Narrative Resulting Agency Comment Spec In Lab Efrain Bah MD HEMATOLOGY ORDERAB LES Performing Organization Address City/State/[facility] Co de Phone Number [facility] [place] [address] * Fibrinogen (01/29/2022 10:25 AM EDT) Fibrinogen 208 200 - 393 mg/dL [facility] Comment: OR Result called by ?? BOWECM OR Results read back by: ? kyle cortés at 2022-01-29 10:42:19 A fibrinogen level >100 mg/dL is adequate for hemostasis in most patients without underlying bleeding disorders. Blood 01/29/2022 10:2 5 AM EDT 01/29/2022 10:28 AM EDT Narrative Resulting Agency Comment Spec In Lab Efrain Bah MD HEMATOLOGY ORDERAB LES Performing Organization Address [facility] Co de Phone Number [facility] [place] [address] * (ABNORMAL) Hemoglobin and Hematocrit, blood (01/29/2022 10:25 AM EDT) Hemoglobin 8.0(L) 11.7 - 15.5 g/dL [facility] Hematocrit 22.7(L) 35.7 - 45.8 % [facility] Comment: This result has been called to KYLE CORTÉS by Cristóbal Toth on 01 29 2022 at 1034, and has been read back. Blood 01/29/2022 10:2 5 AM EDT 01/29/2022 10:28 AM EDT Narrative Resulting Agency Comment Spec In Lab Efrain Bah MD HEMATOLOGY ORDERAB LES Performing Organization Address [facility] Co de Phone Number [facility] [place] [address] * Specimen to Pathology (01/29/2022 10:06 AM EDT) AP Specimen 01/29/2022 10:0 6 AM EDT 01/29/2022 10:06 AM EDT Narrative [facility] - 01/29/2022 10:06 AM EDT Specimen requisition ordered. ??Separate Pathology report to follow Efrain Bah MD PATHOLOGY/CYTOLOGY ORDERABLES Performing Organization Address [facility] Co de Phone Number [facility] [place] [address] * Surgical Pathology Report (01/29/2022 10:03 AM EDT) Final Diagnosis [id number] ? [facility]; [facility]; B The signing pathologist has (i) examined the relevant preparation(s) for the specimen(s) and (ii) rendered or confirmed the diagnosis(es). . ?Surgical Pathology DIAGNOSIS A - Aortic valve leaflets, excision: - ??Valve leaflet tissue with nodular calcific and myxoid degeneration. B - Myectomy, ventricular muscle, excision: - Hypertrophic cardiac muscle. Electronically signed by: ?MD Brandie, Gregg Ko Verified: ??02/01/2022 13:54 ??Pathologist Performed at: ??-[facility] Dept. of Pathology, [place], [place] SPECIMEN(S) SUBMITTED A - Aortic Valve [...] Sections Processing Blocks submitted for decalcification: A1. [place] sections in 1 cassette labeled A1. B - Labeled/Fixative: Myectomy, ventricular muscle, formalin. Quantity/Size: Fragments, 2.6 x 1.5 x 1.5 cm in aggregate. Tissue Description: Fragments of red-foster soft tissue. Sections/Processi ng: Entirely submitted in 2 cassettes labeled B1-B2. ??po 02/01/2022 1:54 PM EDT [facility] MUSCLE SPECIMEN / Unknown 01/29/2022 10:03 AM EDT 01/29/2022 10:03 AM EDT MUSCLE SPECIMEN / Unknown 01/29/2022 10:03 AM EDT 01/29/2022 10:03 AM EDT Efrain Bah MD PATHOLOGY/CYTOLOGY ORDERABLES [facility] [place] [address] * Specimen to Pathology (01/29/2022 10:03 AM EDT) AP Specimen 01/29/2022 10:0 3 AM EDT 01/29/2022 10:03 AM EDT Narrative [facility] - 01/29/2022 10:03 AM EDT Specimen requisition ordered. ??Separate Pathology report to follow Efrain Bah MD PATHOLOGY/CYTOLOGY ORDERABLES [facility] [place] [address] * (ABNORMAL) BLOOD GAS 2 ARTERIAL (01/29/2022 9:58 AM EDT) pH, Arterial 7.39 7.35 - 7.45 [facility] PCO2, Arterial 39 35 - 45 mmHg [facility] PO2, Arterial 425(H) 85 - 104 mmHg [facility] Bicarbonate, Arterial 23.2 20.0 - 26.0 mmol/L [facility] Base Excess, Arterial -1.8 -3.0 - 3.0 mmol/L [facility] Hgb Blood Gas 8.3(L) 11.7 - 15.5 g/dL [facility] Oxyhemoglobin, Arterial 99.0(H) 94.0 - 97.0 % [facility] Carboxyhemoglob in, Arterial 0.2 % [facility] Comment: Nonsmokers: 0.5-1.5% COHB Smokers: Variable, but usually less than 10% Toxic: 20-30% COHB Lethal: Greater than 60% COHB Methemoglobin, Arterial 0.3 <=1.5 % [facility] Na Whole Blood 129(L) 135 - 145 mmol/L [facility] K Whole Blood 6.2(Critic al) 3.5 - 5.0 mmol/L [facility] Comment: Please note: Patients with WBC >100,000 may have falsely elevated Potassium levels. Contact the Clinical Chemistry Laboratory if there are any questions. ICa Whole Blood 0.99(L) 1.15 - 1.33 mmol/L [facility] Comment: Note: ??Total bilirubin higher than 20 mg/dL may lead to falsely low ionized calcium. CL Whole Blood 103 98 - 107 mmol/L [facility] Gluc Whole Bld 247(H) 65 - 199 mg/dL [facility] Comment:Diabetes: >=200 mg/d L plus symptoms. Lactate WB 1.1 0.5 - 2.2 mmol/L [facility] Blood 01/29/2022 9:58 AM EDT 01/29/2022 9:58 AM EDT Efrain Bah MD POINT OF CARE TEST ORDERABLES [facility] [place] [address] * (ABNORMAL) BLOOD GAS 2 ARTERIAL (01/29/2022 9:35 AM EDT) pH, Arterial 7.40 7.35 - 7.45 [facility] PCO2, Arterial 37 35 - 45 mmHg [facility] PO2, Arterial 421(H) 85 - 104 mmHg [facility] Bicarbonate, Arterial 22.6 20.0 - 26.0 mmol/L [facility] Base Excess, Arterial -2.1 -3.0 - 3.0 mmol/L [facility] Hgb Blood Gas 8.3(L) 11.7 - 15.5 g/dL [facility] Oxyhemoglobin, Arterial 99.0(H) 94.0 - 97.0 % [facility] Carboxyhemoglob in, Arterial 0.3 % [facility] Comment: Nonsmokers: 0.5-1.5% COHB Smokers: Variable, but usually less than 10% Toxic: 20-30% COHB Lethal: Greater than 60% COHB Methemoglobin, Arterial 0.3 <=1.5 % [facility] Na Whole Blood 129(L) 135 - 145 mmol/L [facility] K Whole Blood 5.3(H) 3.5 - 5.0 mmol/L [facility] Comment: Please note: Patients with WBC >100,000 may have falsely elevated Potassium levels. Contact the Clinical Chemistry Laboratory if there are any questions. ICa Whole Blood 0.93(L) 1.15 - 1.33 mmol/L [facility] Comment: Note: ??Total bilirubin higher than 20 mg/dL may lead to falsely low ionized calcium. CL Whole Blood 103 98 - 107 mmol/L [facility] Gluc Whole Bld 202(H) 65 - 199 mg/dL [facility] Comment:Diabetes: >=200 mg/d L plus symptoms. Lactate WB 0.8 0.5 - 2.2 mmol/L [facility] Blood 01/29/2022 9:35 AM EDT 01/29/2022 9:35 AM EDT Efrain Bah MD POINT OF CARE TEST ORDERABLES [facility] [place] [address] * (ABNORMAL) BLOOD GAS 2 VENOUS (01/29/2022 9:34 AM EDT) pH, Venous 7.38 7.32 - 7.42 [facility] PCO2, Venous 40(L) 41 - 51 mmHg [facility] PO2, Venous 56(H) 25 - 40 mmHg [facility] Bicarbonate, Venous 22.9 mmol/L [facility] Base Excess, Venous -2.3 mmol/L [facility] Hgb Blood Gas 8.2(L) 11.7 - 15.5 g/dL [facility] Oxyhemoglobin, Venous 87.5 % [facility] Carboxyhemoglob in, Venous 0.5 % [facility] Comment: Nonsmokers: 0.5-1.5% COHB Smokers: Variable, but usually less than 10% Toxic: 20-30% COHB Lethal: Greater than 60% COHB Methemoglobin, Venous 0.3 <=1.5 % [facility] Na Whole Blood 131(L) 135 - 145 mmol/L [facility] K Whole Blood 5.3(H) 3.5 - 5.0 mmol/L [facility] Comment: Please note: Patients with WBC >100,000 may have falsely elevated Potassium levels. Contact the Clinical Chemistry Laboratory if there are any questions. ICa Whole Blood 0.92(Criti aicha) 1.15 - 1.33 mmol/L [facility] Comment: Note: ??Total bilirubin higher than 20 mg/dL may lead to falsely low ionized calcium. CL Whole Blood 103 98 - 107 mmol/L [facility] Gluc Whole Bld 205(H) 65 - 199 mg/dL [facility] Comment:Diabetes: >=200 mg/d L plus symptoms Lactate WB 0.8 0.5 - 2.2 mmol/L [facility] Blood Gas Source Venous [facility] Blood 01/29/2022 9:34 AM EDT 01/29/2022 9:34 AM EDT Efrain Bah MD POINT OF CARE TEST ORDERABLES [facility] [place] [address] * (ABNORMAL) BLOOD GAS 2 ARTERIAL (01/29/2022 8:35 AM EDT) pH, Arterial 7.40 7.35 - 7.45 [facility] PCO2, Arterial 36 35 - 45 mmHg [facility] PO2, Arterial 349(H) 85 - 104 mmHg [facility] Bicarbonate, Arterial 21.6 20.0 - 26.0 mmol/L [facility] Base Excess, Arterial -3.3(L) -3.0 - 3.0 mmol/L [facility] Hgb Blood Gas 12.7 11.7 - 15.5 g/dL [facility] Oxyhemoglobin, Arterial 98.9(H) 94.0 - 97.0 % [facility] Carboxyhemoglob in, Arterial 0.6 % [facility] Comment: Nonsmokers: 0.5-1.5% COHB Smokers: Variable, but usually less than 10% Toxic: 20-30% COHB Lethal: Greater than 60% COHB Methemoglobin, Arterial 0.3 <=1.5 % [facility] Na Whole Blood 138 135 - 145 mmol/L [facility] K Whole Blood 3.7 3.5 - 5.0 mmol/L [facility] Comment: Please note: Patients with WBC >100,000 may have falsely elevated Potassium levels. Contact the Clinical Chemistry Laboratory if there are any questions. ICa Whole Blood 1.24 1.15 - 1.33 mmol/L [facility] Comment: Note: ??Total bilirubin higher than 20 mg/dL may lead to falsely low ionized calcium. CL Whole Blood 106 98 - 107 mmol/L [facility] Gluc Whole Bld 114 65 - 199 mg/dL [facility] Comment:Diabetes: >=200 mg/d L plus symptoms. Lactate WB 0.7 0.5 - 2.2 mmol/L [facility] Blood 01/29/2022 8:35 AM EDT 01/29/2022 8:35 AM EDT Efrain Bah MD POINT OF CARE TEST ORDERABLES [facility] [place] [address] * Transesophageal Echo/OR (01/29/2022 7:18 AM EDT) Anatomical Region Laterality Modality Cardiac Other 01/29/2022 7:18 AM EDT Narrative 01/29/2022 1:11 PM EDT ? Version: 1 Name: MARK WALLER ? Study Date: 01/29/2022, 7: 18 AM ?Patient Location: OR^OR18^A : 1960 (MM/DD/YYYY) ? Age: 61 Years Gender: Female Ordering Physician: [id number]^NIURKA^EFRAIN^W^^^^^EPIC^^^^PROVID Referring Physician: [id number]^EDWARD^EVELYNE^A^^^^^EPIC^^^^PROVID Pre Procedure Findings A complete transesophageal echocardiogram [...] Age: 61 Years Gender: Female Ordering Physician: [id number]^NIURKA^EFRAIN^W^^^^^EPIC^^^^PROVID Referring Physician: [id number]^EDWARD^EVELYNE^A^^^^^EPIC^^^^PROVID Pre Procedure Findings A complete transesophageal echocardiogram was performed in the [facility] pre-operative and post-operative evaluation of cardiac function [...] (Bezet) 458 ms MUSE SYSTEM Calculated P [place] 72 degrees MUSE SYSTEM Calculated R [place] 51 degrees MUSE SYSTEM Calculated T [place] 51 degrees MUSE SYSTEM INTERPRETATION Normal sinus rhythm Normal ECG When compared with ECG of 17-DEC-2021 11:53, Nonspecific ST abnormality no longer present Confirmed by fellow MD Duke Daniel ([id number]) on 01/29/2022 8:59:46 AM Confirmed by MD ATKINS SALVATORE ([id number]) on 01/29/2022 1:42:36 PM MUSE SYSTEM 01/29/2022 7:10 AM EDT 01/29/2022 1:42 PM EDT Efrain Bah MD ECG ORDERABLES MUSE SYSTEM * Prepare RBC (01/29/2022 6:40 AM EDT) Dispensed? Yes [facility] Blood 01/29/2022 6:40 AM EDT 01/29/2022 6:40 AM EDT Efrain Bah MD BLOOD BANK PRODUCT ORDERABLES [place] [address] documented in this encounter Visit Diagnoses Not on filedocumented in this encounter Admitting Diagnoses Diagnosis (aortic stenosis) Aortic valve disorders documented in this encounter Administered Medications Inactive Administered Medications - up to 3 most recent administrations Medication Order MAR Action Action Date Dose Rate Site acetaminophen (Tylenol) tablet 1,000 mg 1,000 mg, [...] Given 02/05/2022 5:00 PM EDT 1,000 mg ALPRAZolam (Xanax) tablet 0.5 mg 0.5 mg, Oral, NIGHTLY PRN, Starting on Fri02/03/22 at 2154, Until Fri02/06/22 at 1311, Anxiety, Routine Given 02/04/2022 7:55 PM EDT 0.5 mg Given 02/03/2022 10:05 PM EDT 0.5 mg AMIOdarone (Paceron) tablet 400 mg 400 [...] If unable to take PO, may give [place], Routine Given 02/06/2022 9:28 AM EDT 81 [...] Given 02/04/2022 9:01 AM EDT 300 mg calcium chloride 10% (100 mg/mL) injection ONCE PRN, Starting on Fri01/29/22 at 1044, Until Fri01/29/22 at 1224, Intra-Operative (Intra-Procedure), Routine Given 01/29/2022 10:44 AM EDT 1 g cardioplegic solution (Plegisol) induction solution CONTINUOUS PRN, Starting on Fri01/29/22 at 0931, Until Fri01/29/22 at 0931, Intra-Operative (Intra-Procedure) New Bag 01/29/2022 9:31 AM EDT 303 mLs cardioplegic solution no.20 (Maintenance 4:1) solution CONTINUOUS PRN, Starting on Fri01/29/22 at 1044, Until Fri01/29/22 at 1044, Intra-Operative (Intra-Procedure) New Bag 01/29/2022 10:44 AM EDT 279 mLs cardioplegic solution no.21 (Reperfusate 4:1) solution CONTINUOUS PRN, Starting on Fri01/29/22 at 1044, Until Fri01/29/22 at 1044, Intra-Operative (Intra-Procedure) New Bag 01/29/2022 10:44 AM EDT 151 mLs dextrose 5% and sodium chloride 0.9% infusion 50 mL/hr, Intravenous, CONTINUOUS, Starting on Fri02/01/22 at 0945, Until Fri02/06/22 at 1311 New Bag 02/02/2022 4:43 AM EDT 50 mL/hr 50 mL/hr Rate/Dose Verify 02/01/2022 12:56 PM EDT 50 mL/hr 50 mL/ hr New Bag 02/01/2022 9:28 AM EDT 50 mL/hr 50 mL/hr diphenhydrAMINE (Benadryl) capsule 25 mg 25 mg, Oral, NIGHTLY PRN, Starting on 02/03/22 at 1508, Until 02/06/22 at 1311, Itching, Sleep, Routine Given 02/06/2022 12:09 AM EDT 25 mg Given 02/05/2022 2:08 AM EDT 25 mg Given 02/04/2022 3:48 AM EDT 25 mg electrolyte replacement solution (pH 7.4) (Normosol-R, Plasmalyte-A) infusion CONTINUOUS PRN, Starting on Fri01/29/22 at 0935, Until Fri01/29/22 at 0935, Intra-Operative (Intra-Procedure) New Bag 01/29/2022 9:35 AM EDT 2 L heparin (porcine) (1,000 units/mL) injection ONCE PRN, Starting on Fri01/29/22 at 0935, Until Fri01/29/22 at 1224, Intra-Operative (Intra-Procedure), Routine Given 01/29/2022 9:43 AM EDT 5,000 Units Given 01/29/2022 9:35 AM EDT 5,000 Units lidocaine (pf) (Xylocaine) (20 mg/mL) 2% injection syringe ONCE PRN, Starting on Fri01/29/22 at 1045, Until Fri01/29/22 at 1224, Intra-Operative (Intra-Procedure), Routine Given 01/29/2022 10:45 AM EDT 200 mg magnesium hydroxide (Milk of Magnesia) (240 mg/mL) oral liquid 10 mL 10 mL, Oral, DAILY, First dose on Louisa 01/31/22 at 0900, Until Discontinued, Post-op day 2. Do not use with renal insufficiency., Routine Given 02/01/2022 9:00 AM EDT 10 mLs Given 01/31/2022 9:20 AM EDT 10 mLs magnesium sulfate (4 mEq/mL) (50 %) injection ONCE PRN, Starting on Fri01/29/22 at 1045, Until Fri01/29/22 at 1224, Intra-Operative (Intra-Procedure), Routine Given 01/29/2022 10:45 AM EDT 2 g mannitoL (Osmitrol) 20 % infusion CONTINUOUS PRN, Starting on Fri01/29/22 at 0935, Until Fri01/29/22 at 0935, Intra-Operative (Intra-Procedure) New Bag 01/29/2022 9:35 AM EDT 30 g melatonin tablet 6 mg 6 mg, Oral, [...] into 50ml NS. Use if zofran ineffective metoproloL tartrate (Lopressor) tablet 25 mg 25 [...] Given 02/05/2022 8:23 PM EDT 100 mg ondansetron (pf) (Zofran) (2 mg/mL) injection 4 [...] 02/01/2022 9:09 AM EDT 5 mg pantoprazole EC (Protonix) tablet 40 mg 40 mg, Oral, DAILY, First dose on Fri01/29/22 at 1345, Until Discontinued, DO NOT CRUSH OR OPEN If unable to take PO, may give IV Given 02/06/2022 9:28 AM EDT 40 mg Given 02/05/2022 8:30 AM EDT 40 mg Given 02/04/2022 9:01 AM EDT 40 mg senna-docusate (Pericolace) 8.6-50 mg per tablet 2 tablet 2 tablet, Oral, DAILY, First dose on Fri01/30/22 at 2100, Until Discontinued, Post-op day 1, Routine Given 01/30/2022 8:25 PM EDT 2 tablets sodium bicarbonate 8.4 % (1 meq/ml) IV solution ONCE PRN, Starting on Fri01/29/22 at 1007, Until Fri01/29/22 at 1224, Intra-Operative (Intra-Procedure), Routine Given 01/29/2022 10:32 AM EDT 25 mEq Given 01/29/2022 10:07 AM EDT 25 mEq sodium chloride 0.9 % (flush) (BD PosiFlush Normal Saline 0.9) flush 5 mL 5 mL, Intravenous, EVERY 8 HOURS, First dose on Fri01/30/22 at 1230, Until Discontinued, Routine Given 02/05/2022 8:24 PM EDT 5 mLs Given 02/04/2022 7:55 PM EDT 5 mLs Given 02/04/2022 12:23 PM EDT 5 mLs vancomycin (Vancocin) injection ONCE PRN, Starting on Fri01/29/22 at 0702, Until Fri01/29/22 at 1224, Intra-Operative (Intra-Procedure), Routine Given 01/29/2022 7:02 AM EDT 4 g warfarin (Coumadin) daily order reminder Oral, EVERY 24 HOURS, First dose on Fri02/05/22 at 0000, Until Discontinued, If the daily warfarin order has not been placed, contact the Provider to confirm that the order will be written, the dose is held or discontinued. documented in this encounter Active and Recently [...] If unable to take PO, may give WV, Routine 900 (Given - Provider: Yadira Downing RN) 08 (Given - Provider: Giana Christian RN) 09 (Given - Provider: Giana Christian RN) atorvastatin [...] Pal RN)1330 (Given - Provider: Giana Christian RN)202 (Given - Provider: Germaine Pal RN)2130 (Canceled Entry - Provider: Germaine Pal RN [...] Downing RN) 0830 (Given - Provider: Giana Christian RN) 0928 (Given - Provider: Giana Christian, DMITRY) potassium chloride ER (K-Dur/Klor-Con) tablet 20 mEq (COMPLETED) 20 mEq, Oral, ONCE, 1 dose, On Fri02/05/22 at 0715, 20 mEq tablet may be dissolved in water for administration, Routine 07 (Given - Provider: Giana Christian RN) potassium [...] 1, Routine 2100 (Canceled Entry - Provider: Germaine Pal RN - Reason: Patient/family refused - [...] 0.5 mg, Oral, NIGHTLY PRN, Starting on Fri02/03/22 at 2154, Until Fri02/06/22 at 1311, Anxiety, Routine 1955 (Given - Provider: Germaine Pal RN) bisacodyL (Dulcolax) suppository 10 mg 10 mg, Rectal, DAILY PRN, Starting on Fri02/01/22 at 0000, Until Fri02/06/22 at 1311, Constipation, Starting post-op day 3., Routine diphenhydrAMINE (Benadryl) capsule 25 mg 25 mg, Oral, NIGHTLY PRN, Starting on Fri02/03/22 at 1508, Until Fri02/06/22 at 1311, Itching, Sleep, Routine 0348 (Given - Provider: Diane Hinds, RN) 0208 (Given - Provider: Germaine Pal, RN) 0009 (Given - Provider: Germaine Pal, DMITRY) melatonin tablet 6 mg 6 mg, Oral, [...] If unable to take PO, may give WV, Routine Or aspirin suppository 300 mg (CANCELED) 300 mg, Rectal, DAILY, First dose on Fri01/30/22 at 0900, Until Discontinued, Start on Post-Op Day 1 in the AM. Give WV if unable to take PO, Routine Group [...] Routine documented in this encounter Care Teams Tool/Die Maker Relationship Specialty Start Date End Date Evelyne Hunt APRN [address] [place] [address] PCP - General Internal Medicine 09/23/17 documented as of this encounter
--- OUTSIDE RECORDS SUMMARY | 2023-12-01 02:11 | XMS_ITS | Encounter Summary ---
Author Organization [facility] [place] [address] Care Team Providers Care Licensed Occupational Therapist Name Role Phone Evelyne Hunt APRN Primary Care Provider [phone] Reason for Visit * Auth/Cert Specialty Diagnoses / Procedures Referred By Contac t Referred To Contact Diagnoses Aortic stenosis Other nonrheumatic mitral valve disorders , JERRY Procedures PRO REPLACEMENT PROSTHETIC AORTIC VALVE OPEN W CARDIOPULMONARY BYPASS HOMOGRF/STENT PRO FABRIZIO VENT [facility] [place] @REPLACE AORTIC VALVE, OPEN, W\CPB, W\PROSTHETIC VALVE (WRVU 41.32) @VENTRICULOMYOTOMY (-MYECTOMY) FOR IDIOPATHIC HYPERTROPHIC SUBAORTIC STENOSIS (WRVU 36.56) Efrain Felder MD [facility] [place] [address] [facility] Referral ID Status Reason Start Date Expiration Date Visits Re quested Visits Authorized [id number] 1 1 Encounter Details Date Type Department Care Team (Late st Contact Info) Description 01/29/2022 7:38 AM EDT Anesthesia Event Main Operating Room [address] [place] [id number] Randal Rivera MD [facility] [place] [address] Kate Deleon CRNA [facility] [place] [address] Anesthesia Record Procedure Summary Procedure Name Responsible Anesthesiologist Anesthesia Start Time Anesthesia Stop Time @REPLACE AORTIC VALVE, OPEN, W\CPB, W\PROSTHETIC VALVE (WRVU 41.32) (Chest) Randal Rivera MD 01/29/22 0738 01/29/22 1231 Events Date Time Event Comment 01/29/2022 0713 0738 AN Verify 0738 Start 0738 An Start Data 0757 An Induction 0804 An Intubation 0806 TON w/ REPORT 0821 Anesthesia Ready 0842 Sternotomy 0904 An Clamp start 0916 CV Bypass init 1032 Rewarming 1037 Steel Pickler 1042 An Clamp Remove 1104 CP Bypass Ended 1154 Chest Closed 1224 Transport 1231 an stop data 1231 Recovery or ICU Handoff Lorena ent care was transferred to the destination unit staff after review of the patient's medical history, current anesthetic/surgical status and plan, according to the Provider Handoff Checklist. 1231 Stop Meds Name Total Midazolam 4 mg fentaNYL 500 mcg Propofol 100 mg Propofol INF 91.65 mg PHENYLephrine 340 mcg Vecuronium 10 mg Heparin 20,000 Units Protamine 250 mg Tranexamic Acid 610 mg Tranexamic Acid INF 223.02 mg Insulin Regular Human 5 Units Rocuronium 100 mg Gentamicin 300 mg Vancomycin 1 g NORepinephrine INF 99.41 mg Insulin Regular INF 31.08 Units Vasopressin 5 Units Vasopressin INF 3.16 Units Sodium Chloride 0.9% 300 mL Sodium Chloride 0.9% 1,000 mL Lactated Ringers 900 mL * Agents Name O2 Air N2O Sevoflurane (et) Isoflurane (et) * Blood No blood administrations on file. Lines, Drains, and Airways Type Details Placement Removal Incision 01/29/22; 0838; midl ine; sternal; vertical 01/29/22 0838 by Vincenzo Nick RN Chest Tube 01/29/22; Midline; mediastinum; 28Fr Straight; 01/30/22; 1230 01/29/22 0000 by Vincenzo Nick RN 01/30/22 1230 by Lisy Adams, DMITRY Chest Tube 01/29/22; Midline; mediastinum; 28Fr Angled; 01/30/22; 1230 01/29/22 0000 by Vincenzo Nick RN 01/30/22 1230 by Lisy Adams, DMITRY (RETIRED) Peripheral IV Line - Single Lumen 01/29/22; 0635; cephalic vein (lateral side of arm), left; [id number] catheter system; Anatomical Landmarks; 20 gauge; dot ANDRES; tolerated well, appears comfortable; 0; removed per policy/procedure, site care per policy/procedure, site symptomatic, catheter/device intact; 02/02/22; 0919 01/29/22 0635 by Jody Rivera RN 02/02/22 0919 by Kennedi Redd RN Arterial Line 01/29/22; 0753; radi al artery, left; 20 gauge; Guidewire, Ultrasound Guidance; continuous blood pressure monitoring, frequent blood gas measurement; Migeul; Sterile Prep, Sterile Gloves; no longer indicated; 01/30/22; 1229 01/29/22 0753 by Kate Deleon, DAYSI 01/30/22 1229 by Lisy Adams RN (RETIRED) Percutaneous Central Line - Single Lumen 01/29/22; 0800; internal jugular vein, right; introducer; 9 Fr; MD Miguel; appears comfortable; no longer indicated, catheter/device intact; 01/30/22; 1229 01/29/22 0800 by Jessica Fowler RN 01/30/22 1229 by Lisy Adams RN ETT Mask Ventilation: Ea sy (1); ETT Type: Cuffed, Oral; ETT Size: 8 mm; Mac Blade: 3; Notes: Asleep, Pre-O2, Stylette; Attempts: 1; Laryngoscopy Grade: 2; ETT Placement Verified By: Auscultation, Capnometry, Visual; Secured at Teeth: 22 cm; Inserted by: Miguel; Removal Date: 01/29/22; Removal Time: 1330 01/29/22 0804 by Kate Deleon, WHEEL TUNER 01/29/22 1330 by Saul Steele RCP Urethral Catheter 01/29/22; 0809; Need for intraoperative urine output monitoring; hydrophilic coated; 14; inserted at this facility; 1; 10; 10; drainage bag to dependent drainage; 01/31/22; 1054 01/29/22 0809 by Vincenzo Nick RN 01/31/22 1054 by Mercedes Alcazar RN (RETIRED) Pulmonary Artery Catheter - Triple Lumen 01/29/22; 0816; Right; internal jugular vein; standard thermodilution catheter; 9 Fr; CVC Bundle Performed; DAYSI Deleon; 01/29/22; 203801/29/22 0816 by Kate Deleon CRNA 01/29/222038 by Mary White RN (RETIRED) Percutaneous Central Line - Triple Lumen 01/29/22; 0816; internal jugular vein, right; introducer; Ultrasound Guidance; 9 Fr; DAYSI Deleon; TON; CVC Bundle Performed; 01/29/22; 1433 01/29/22 08 by Kate Deleon CRNA 01/29/221432 by Jessica Fowler RN Arterial Line 01/29/22; 1127; femo ral artery, right; 5 Fr; Guidewire, Introducer Needle; continuous blood pressure monitoring; MD Emerita.; 01/30/22; 0801/29/22 112 by Silvia Schmidt RN 01/30/22829 by Dulce Maria Langston RN documented in this encounter Social History Tobacco [...] OR Notes * Anesthesia Postprocedure Evaluation - Randal Rivera MD - 01/30/2022 12:53 PM EDT Department of Anesthesiology Post-procedure Note Patient: Gabi Luna Procedure Summary Date: 01/29/22 Room / Location: [facility] OR [address] [place] [address] MAIN OR Anesthesia Start: 737 Anesthesia Stop: 123 Procedures: @REPLACE AORTIC VALVE, OPEN, W\CPB, W\PROSTHETIC VALVE (WRVU 41.32) (N/A Chest) @VENTRICULOMYOTOMY (-MYECTOMY) FOR IDIOPATHIC HYPERTROPHIC SUBAORTIC STENOSIS (WRVU 36.56) (N/A Chest) Diagnosis: (, JERRY) Surgeons: Efrain Felder MD Responsible Provider: Randal Rivera MD Anesthesia Type: general ASA Status: 3 All Anesthesia Providers: Anesthesiologist: Randal Rivera MD WHEEL TUNER: Kate Deleon CRNA Vitals Value Taken Time BP 92/61 01/30/22 1206 Temp 36.8 ??C (98.2 ??F) 01/30/22 1100 Pulse 70 01/30/22 1252 Resp 22 01/30/22 1252 SpO2 94 % 01/30/22 1252 Pain Level 6 01/30/22 1101 Vitals shown include unvalidated device data. Patient Location: [facility] Level of Consciousness: Awake and Alert Pain Management: Satisfactory Analgesia PONV: None Cardiovascular Status: Hemodynamically Stable and At Baseline Respiratory Status: Stable Respiratory Status and Supplemental O2 (NC or FM) Postoperative Fluid Status: Intravascular EUvolemia Possible Anesthetic Complications: NONE apparent at time of evaluation Final Primary Anesthesia Type: General (The anesthetic type performed was the same as planned.) Comments: * Anesthesia Preprocedure Evaluation - Randal Rivera MD - 01/28/2022 2:12 PM EDT Pre-Anesthesia Evaluation for: Gabi Luna a 61 y.o. female. Procedure(s): @REPLACE AORTIC VALVE, OPEN, W\CPB, W\PROSTHETIC VALVE (WRVU 41.32) @VENTRICULOMYOTOMY (-MYECTOMY) FOR IDIOPATHIC HYPERTROPHIC SUBAORTIC STENOSIS (WRVU 36.56) Patient Active Problem List Diagnosis Date Noted ??? BRCA negative 10/18/2019 ??? Ovarian cancer, [...] IR Mediport Placement 08/20/[address] [facility] INTERVENTIONL RAD ??? IR MEDIPORT REMOVAL 10/04/2020 IR Mediport Removal 10/04/[address] [facility] INTERVENTIONL RAD ? ? PRG CATH PLMT CORONARY ART W/INJ FOR ANGIO W/R HEART CATH IMG S&I N/A 12/17/2021 CORONARY ANGIOGRAPHY; W RHC performed by Cristóbal Cuevas MD at [facility] CATH LABS ??? PRO GINA SALP-OOPH W/OMENTECT, FREDI, RAD DISSECT N/A 07/20/2019 @HYSTERECTOMY, FREDI, BSO, DEBULKING (WRVU 34.13) performed by Natalie Vallejo MD at [facility] MAIN OR ??? PRO COLONOSCOPY, REMV LESN, SNARE N/A 05/01/2021 COLONOSCOPY, POLYPECTOMY, REMOVAL LESION BY SNARE (WRVU 4.67) performed by Arlin Agudelo MDat [facility] ENDOSCOPY Social History Tobacco Use ??? Smoking status: Former Smoker Quit date: 07/12/1977 Years since quittin.5 ??? Smokeless tobacco: Never Used Substance Use Topics ??? Alcohol use: Not Currently Social History Substance and Sexual Activity Drug Use Never Allergies Allergen Reactions ??? Paroxetine ??? Penicillins [...] 30-60 mins. Was able to complete drug. Medications: MAR and/or home medications have been reviewed. Physical Exam: Preprocedure Vitals Current as of 01/28/22 1412 No BP, pulse, respiration, SpO2, or temperature recorded. Height: 165.1 cm (5' 5) (01/07/22) Weight: 60.6 kg (133 lb 8 oz) (01/07/22) BMI: 22.21 IBW: 57 kg (125 lb 10.6 oz) Airway Assessment: Mallampati: II TM distance: >3 FB Neck ROM: full Cardiovascular Assessment: Rhythm: regular Rate: normal (+) murmur Pulmonary Assessment: breath sounds clear to auscultation Dental Assessment: - normal exam Misc Assessment: IV access: Peripheral line Last Filed Perioperative Cognitive Screening Value Time User CFS Frailty Score: 3 01/07/2022 11:00 AM Cristóbal Eddy RN Anesthesia Plan: ASA 3 general, with a(n) intravenous induction 61 yo F with bicuspid aortic stenosis with possible subvalvular stenosis for AVR +/- myectomy. Patient Active Problem List: Hypothyroidism (E03.9) SVT (supraventricular tachycardia) (I47.1) Bicuspid aortic valve (Q23.1) Chest pain (R07.9) Aortic valve stenosis (I35.0) HTN (hypertension) (I10) Ovarian cancer, lateral, stage IIIb high-grade serous/endometrioid, 07/20/2019 s/p FREDI/BSO/oment/PPALND/RSReanstomosis (C56.9) BRCA negative (Z13.71) Plan: GETA, A-line, CVL with PAC, TON. Risks, benefits, and alternatives discussed with patient including but not limited to dental, airway, lip injury, vascular injury, nerve injury, thrombosis, eye injury, blindness, adverse drug reactions, heart attack, stroke, intraoperative demise among others. All questions answered to patients sat isfaction. Region - Intrathoracic Cardiac Informed Consent: Plan discussed with WHEEL TUNER. Anesthesia Screening documented in this encounter Plan of Treatment Upcoming Encounters Date Type Department Care Team (Latest Contact Info) Description 12/25/2023 9:[address] [place] [address] Xavier Malhotra MD [facility] [place] [address] 12/29/2023 Hospital Encounter [place] [phone] Xavier Malhotra MD [facility] [place] [address] Paroxysmal atrial fibrillation 12/29/2023 7:30 AM EDT - 12/29/2023 12:00 PM EDT Surgery [place] [phone] Xavier Malhotra MD [facility] [place] [address] ELECTROPHYSIOLOGY PROCEDURE 01/14/2024 10:40 AM EDT Office Visit Cardiology at [address] [phone] Carmen Castaneda PA [facility] [place] [address] Scheduled Procedures Name Priority Associated Diagnoses Date/Ti me TRANSESOPHAGEAL ECHO DURING CATH/EP PROCEDURE Paroxysmal atrial fibrillation 12/29/2023 7:30 AM EDT documented as of this encounter Goals Goal Patient Goal Type Associated Problems Recent Progress Patient-Stated? Author DH Home Medication Compliance and Understanding Patient Facing Action Plan Lani Love, [facility] Note: Maintain control of disease for as long as possible as assessed by tumor marker levels and scans in clinic every 3 to 6 months documented as of this encounter Visit Diagnoses Not on filedocumented in this encounter Administered Medications Inactive Administered Medications - up to 3 most recent administrations Medication Order MAR Action Action Date Dose Rate Site fentaNYL (pf) (50 mcg/mL) multi-dose injection Intravenous, PRN, Starting on Fri01/29/22 at 0757, Until Fri01/29/22 at 1840, Anesthesia Intra-op, Routine Given 01/29/2022 8:37 AM EDT 300 mcg Given 01/29/2022 8:14 AM EDT 100 mcg Given 01/29/2022 7:57 AM EDT 100 mcg gentamicin (Garamycin) injection Intravenous, PRN, Starting on Fri01/29/22 at 0835, Until Fri01/29/22 at 1840, Anesthesia Intra-op, Routine Given 01/29/2022 8:35 AM EDT 300 mg heparin (porcine) (1,000 units/mL) injection Intravenous, PRN, Starting on Fri01/29/22 at 0855, Until Fri01/29/22 at 1840, Anesthesia Intra-op, Routine Given 01/29/2022 8:55 AM EDT 20,000 Units insulin regular (HumuLIN R,NovoLIN R) (100 unit/mL) injection vial Intravenous, PRN, Starting on Fri01/29/22 at 1049, Until Fri01/29/22 at 1840, Anesthesia Intra-op, Routine Given 01/29/2022 10:49 AM EDT 5 Units insulin regular (Myxredlin) (1 unit/mL) in sodium chloride 0.9% 100 mL infusion Intravenous, CONTINUOUS PRN, Starting on Fri01/29/22 at 0946, Until Fri01/29/22 at 1840, Anesthesia Intra-op, Routine Rate/Dose Change 01/29/2022 11:01 AM EDT 10 Units/hr 10 mL/hr Rate/Dose Change 01/29/2022 10:31 AM EDT 20 Units/hr 20 mL /hr Rate/Dose Change 01/29/2022 10:03 AM EDT 10 Units/hr 10 mL /hr lactated ringers infusion Intravenous, CONTINUOUS PRN, Starting on Fri01/29/22 at 0738, Until Fri01/29/22 at 1840, Anesthesia Intra-op New Bag 01/29/2022 7:38 AM EDT midazolam (pf) (Versed) (1 mg/mL) multi-dose injection Intravenous, PRN, Starting on Fri01/29/22 at 0738, Until Fri01/29/22 at 1840, Anesthesia Intra-op, Routine Given 01/29/2022 9:18 AM EDT 2 mg Given 01/29/2022 7:42 AM EDT 1 mg Given 01/29/2022 7:38 AM EDT 1 mg NORepinephrine (Levophed) (16 mcg/mL) in dextrose 5% 250 mL infusion Intravenous, CONTINUOUS PRN, Starting on Fri01/29/22 at 0810, Until Fri01/29/22 at 1840, Anesthesia Intra-op, Routine Rate/Dose Change 01/29/2022 11:03 AM EDT 10 mcg/kg/min 2291.25 mL/hr Rate/Dose Change 01/29/2022 10:44 AM EDT 8 mcg/kg/min 1833 mL/hr Rate/Dose Change 01/29/2022 9:29 AM EDT 6 mcg/kg/min 1374. 75 mL/hr PHENYLephrine in NS (PF) (JESUS-SYNEPHRINE) 0.8 mg/10 mL (80 mcg/mL) multi-dose injection Syrg Intravenous, PRN, Starting on Fri01/29/22 at 1104, Until Fri01/29/22 at 1840, Anesthesia Intra-op, Routine Given 01/29/2022 11:04 AM EDT 180 mcg Given 01/29/2022 8:14 AM EDT 80 mcg Given 01/29/2022 8:07 AM EDT 80 mcg propofoL (Diprivan) (10 mg/mL) infusion Intravenous, CONTINUOUS PRN, Starting on Fri01/29/22 at 1141, Until Fri01/29/22 at 1840, Anesthesia Intra-op, Routine New Bag 01/29/2022 11:41 AM EDT 30 mcg/kg/min 10.998 mL/hr propofoL (Diprivan) 10 mg/mL bolus injection (Anesthesia) Intravenous, PRN, Starting on Fri01/29/22 at 0759, Until Fri01/29/22 at 1840, Anesthesia Intra-op Given 01/29/2022 8:01 AM EDT 50 mg Given 01/29/2022 7:59 AM EDT 50 mg protamine (10 mg/mL) injection Intravenous, PRN, Starting on Fri01/29/22 at 1107, Until Fri01/29/22 at 1840, Anesthesia Intra-op, Routine Given 01/29/2022 11:19 AM EDT 40 mg Given 01/29/2022 11:17 AM EDT 50 mg Given 01/29/2022 11:14 AM EDT 50 mg rocuronium (Zemuron) (10 mg/mL) multi-dose injection Intravenous, PRN, Starting on Fri01/29/22 at 0801, Until Fri01/29/22 at 1840, Anesthesia Intra-op, Routine Given 01/29/2022 8:01 AM EDT 100 mg sodium chloride 0.9% infusion Intravenous, CONTINUOUS PRN, Starting on Fri01/29/22 at 0816, Until Fri01/29/22 at 1840, Anesthesia Intra-op New Bag 01/29/2022 8:16 AM EDT sodium chloride 0.9% infusion Intravenous, CONTINUOUS PRN, Starting on Fri01/29/22 at 0824, Until Fri01/29/22 at 1840, Anesthesia Intra-op New Bag 01/29/2022 11:21 AM EDT New Bag 01/29/2022 8:24 AM EDT tranexamic acid (Cyklokapron) (100 mg/mL) infusion Intravenous, Administer over 8 Hours, CONTINUOUS PRN, Starting on Fri01/29/22 at 0821, Until Fri01/29/22 at 1840, Anesthesia Intra-op, Routine New Bag 01/29/2022 8:21 AM EDT 1 mg/kg/hr 0.611 mL/hr tranexamic acid (Cyklokapron) (100 mg/mL) IV bolus Intravenous, Administer over 8 Hours, PRN, Starting on Fri01/29/22 at 0821, Until Fri01/29/22 at 1840, Anesthesia Intra-op, Routine Given 01/29/2022 8:21 AM EDT 610 mg vancomycin (Vancocin) injection Intravenous, PRN, Starting on Fri01/29/22 at 0827, Until Fri01/29/22 at 1840, Anesthesia Intra-op, Routine Given 01/29/2022 8:27 AM EDT 1 g vasopressin (VASOSTRICT) 0.2 units/mL IV infusion (Anesthesia) Intravenous, CONTINUOUS PRN, Starting on Fri01/29/22 at 1112, Until Fri01/29/22 at 1840 New Bag 01/29/2022 11:12 AM EDT 0.04 Units/min 12 mL/hr vasopressin (Vasostrict) injection Intravenous, PRN, Starting on Fri01/29/22 at 0927, Until Fri01/29/22 at 1840, Anesthesia Intra-op, Routine Given 01/29/2022 9:56 AM EDT 1 Units Given 01/29/2022 9:48 AM EDT 1 Units Given 01/29/2022 9:39 AM EDT 1 Units vecuronium (Norcuron) injection Intravenous, PRN, Starting on Fri01/29/22 at 0918, Until Fri01/29/22 at 1840, Anesthesia Intra-op, Routine Given 01/29/2022 10:43 AM EDT 5 mg Given 01/29/2022 9:18 AM EDT 5 mg documented in this encounter Care Teams Licensed Occupational Therapist Relationship Specialty Start Date End Date Evelyne Hnut APRN [address] [place] [address] PCP - General Internal Medicine 09/23/17 documented as of this encounter
--- OUTSIDE RECORDS SUMMARY | 2023-12-01 02:12 | XMS_ITS | Encounter Summary ---
Author Organization [facility] [place] [address] Care Team Providers Care Harbormaster Name Role Phone Evelyne Hunt Dat STEVEN Primary Care Provider [phone] Reason for Visit * Reason Comments Specialty Pharmacy Review Zejula Encounter Details Date Type Department Care Team (Late st Contact Info) Description 12/12/2021 Specialty [place] [phone] Marco Antonio Jarrell CPHT Social History Tobacco Use Types Packs/Day Years Used Date Smoking Tobacco: Former Cigarettes Q uit: 07/12/1977 Smokeless Tobacco: Never Alcohol Use Standard Drinks/Week Comments Yes 3 (1 standard drink = 0.6 oz pur e alcohol) Sex and Gender Information Value Date Recorded Sex Assigned at Not on file Gender Identity Not on file Sexual Orientation Not on file documented as of this encounter Progress Notes * Marco Antonio Jarrell CPHT - 12/12/2021 11:59 PM EDT The [facility] has completed a benefits investigation for Gabi Luna to review their eligibility to fill at [facility]. Per patient's medication list they are prescribed Zejula 100mg Capsule and the medication is able to be filled at the [facility]. The patient currently fills the medication through [facility]. documented in this encounter Plan of Treatment Upcoming Encounters Date Type Department Care Team (Latest Contact Info) Description 12/25/2023 9:[address] Scan at [place] [phone] Xavier Malhotra MD [facility] [place] [address] 12/29/2023 Hospital Encounter [place] [address] Xavier Malhotra MD [facility] [place] [address] Paroxysmal atrial fibrillation 12/29/2023 7:30 AM EDT - 12/29/2023 12:00 PM EDT Surgery Electrophysiology Lab at [place] [phone] Xavier Malhotra MD [facility] [place] [address] ELECTROPHYSIOLOGY PROCEDURE 01/14/2024 10:40 AM EDT Office [place] [address] Carmen Castaneda PA [facility] [place] [address] Scheduled Procedures Name Priority Associated Diagnoses Date/Ti [...] on filedocumented in this encounter Care Teams Harbormaster Relationship Specialty Start Date End Date Evelyne Hunt APRN [address] [place] [address] PCP - General Internal Medicine 09/23/17 documented as of this encounter
--- OUTSIDE RECORDS SUMMARY | 2023-12-01 02:12 | XMS_ITS | Encounter Summary ---
Author Organization [facility] Address [facility] [place] [address] Care Team Providers Care Plastics Fitter Name Role Phone Evelyne Hunt Dat STEVEN Primary Care Provider [phone] Encounter Details Date Type Department Care Team (Late st Contact Info) Description 08/20/2021 Telephone Dermatology at [facility] [address] [place] [address] Mitzi Benton MD [facility] [address] [place] [address] Social History Tobacco Use Types Packs/Day Years [...] encounter Miscellaneous Notes * Telephone Encounter - Mitzi Fitzgerald MD - 08/20/2021 12:50 PM EDT Responded to pt's message. * Telephone Encounter - Crystal Sinclair - 08/20/2021 9:38 AM EDT Gabi Luna called and wanted to know is it is really necessary that she continue taking the dexamethasone (Decadron) 4 mg Tablet. Please reach out to the patient as she is due to take the medication today and tomorrow. Best number is [phone]. documented in this encounter Plan of Treatment Upcoming Encounters Date Type Department Care Team (Latest Contact Info) Description 12/25/2023 9:[address] Scan at [place] [phone] Xavier Malhotra MD [facility] [place] [address] 12/29/2023 Hospital Encounter Electrophysiology Lab at [place] [phone] Xavier Malhotra MD [facility] [place] [address] Paroxysmal atrial fibrillation 12/29/2023 7:30 AM EDT - 12/29/2023 12:00 PM EDT Surgery Electrophysiology Lab at [place] [phone] Xavier Malhotra MD [facility] [place] [address] ELECTROPHYSIOLOGY PROCEDURE 01/14/2024 10:40 AM EDT Office Visit Cardiology at [address] [phone] Carmen Castaneda PA [facility] [place] [address] Scheduled Procedures Name Priority Associated Diagnoses Date/Ti me TRANSESOPHAGEAL ECHO DURING CATH/EP PROCEDURE Paroxysmal atrial fibrillation 12/29/2023 7:30 AM EDT documented as of this encounter Goals Goal Patient Goal Type Associated Problems Recent Progress Patient-Stated? Author DH Home Medication Compliance and Understanding Patient Facing Action Plan Lani Love, [facility] Note: Maintain control of disease for as long as possible as assessed by tumor marker levels and scans in clinic every 3 to 6 months documented as of this encounter Visit Diagnoses Not on filedocumented in this encounter Care Teams Plastics Fitter Relationship Specialty Start Date End Date Evelyne Hunt APRN [address] [place] [address] PCP - General Internal Medicine 09/23/17 documented as of this encounter
--- OUTSIDE RECORDS SUMMARY | 2023-12-01 02:12 | XMS_ITS | Encounter Summary ---
Author Organization [facility] Address [facility] [place] [address] Care Team Providers Care Laboratory Worker Name Role Phone Evelyne Hunt Dat STEVEN Primary Care Provider [phone] Encounter Details Date Type Department Care Team (Late st Contact Info) Description 09/12/2021 1:00 PM EDT TH Visit (TeleHealth) Dermatology at [facility] [address] [place] [address] Mitzi Benton MD [facility] [address] [address] Vitiligo Social History Tobacco Use Types Packs/Day [...] as of this encounter Progress Notes * Mitzi Fitzgerald MD - 09/12/2021 1:00 PM EDT Images from the original note were not included. DEPARTMENT OF DERMATOLOGY Medical Dermatology Clinic Provider: Mitzi Fitzgerald MD Patient's preferred name Ivana Preferred contact method for results [x]?Phone [x]?myD-H []?Letter Detailed phone message OK? Yes Are there any other people with whom we may discuss your care? , [place] ?? 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 Patient evaluated over telehealth today for vitiligo follow up. - At our last visit 07/20/21, we trialed dexamethasone 4mg twice weekly (Sat-Sun). Pt experienced adverse reaction of feeling anxious and irritated, heart racing. Therefore we discussed decreasing to 2mg twice weekly. Unclear if she tried this or not as she wanted to discontinue the dexamethasone as she was uncomfortable being on it. - We also discussed low-dose methotrexate as an alternative but pt uncomfortable with systemic medications. Therefore we decided to trial phototherapy in [facility] near where she lives. She will be initiating with Dr. Erwin (business performance analyst at [facility] who orders phototherapy in [facility]) in 1 week on September 20. - She called on 09/10/21 to again request discussion of additional treatments as she continues to have increased spread of her vitiligo. - Today she reports: now spreading around her mouth and feeling very itchy on her scalp and hair. She is very afraid of losing her hair and continuing to lose pigment in her skin. Using Protopic and clobetasol a few times per day. - associates it with a stressful event as trigger. Last visit at Dermatology: 07/20/2021 Medications: Reviewed in eD-H Allergies: Reviewed in eD-H Skin Examination: Not performed due to telephone visit. Assessment/Plan # Vitiligo, active, chronic with exacerbation - not evaluated today. Pt notes continuing to spread,previously on the left forehead, right lateral eyebrow, right deshpande, right ventral wrist, and b/l dorsal wrists, now also around the mouth as well. - Given this is active, we did speak about starting prednisone 20mg every other day vs trial of low-dose methotrexate vs SWAPNIL inhibitor; however given she experienced side effects with the dexamethasone I do not feel confident she would tolerate these. She is also concerned about side effects/interactions given her cancer treatment. Therefore we will defer for now, especially as she is already scheduled for phototherapy initiation with Dr. Erwin next week. We discussed that phototherapy is a widely accepted treatment for vitiligo. - I recommend at least a 3 month trial of phototherapy 2-3 times weekly. - Will escalate topical regimen for now. - Cont Rx: Protopic 0.1% ointment: Use twice daily and alternate with clobetasol except on face. Alternate with desonide as below. - Cont Rx Clobetasol 0.05% ointment: Use twice daily for 1 week and alternate with protopic. Do notuse on face. - Start Rx: desonide 0.05% ointment: use twice daily 3-4 days per week, and then use protopic the other days of the week on the face. # Hair loss/scalp pruritus- query telogen effluvium +/- seborrheic dermatitis. Pt reports had a stressful event which she believes triggered her vitiligo as well, but this has resolved. Main problem is scalp itching. - Start OTC Head and Shoulders- consider escalation to Rx ketoconazole shampoo if not effective (discussed can strip color from hair more readily and she highlights her hair so starting with OTC for now). Other: ??? OTC skin products discussed RTC: 09/20/21 in [place] to establish care with Dr. Erwin []Note routed to junior legal secretary []Recall placed in scheduling system [x]Appointment scheduled at checkout Scribe attestation: Mitzi Fitzgerald MD has performed the documentation for this encounter in the presence of and acting as a scribe for Mitzi Fitzgerald MD. I performed the above scribed service and agree with the accuracy of the documentation in this encounter. Reviewed and signed by: Mitzi Fitzgerald MD Dermatology [facility] documented in this encounter Plan of Treatment Upcoming Encounters Date Type Department Care Team (Latest Contact Info) Description 12/25/2023 9:[address] Scan at [place] [phone] Xavier Malhotra MD [facility] [place] [address] 12/29/2023 Hospital Encounter Electrophysiology Lab at [place] [phone] Xavier Malhotra MD [facility] [place] [address] Paroxysmal atrial fibrillation 12/29/2023 7:30 AM EDT - 12/29/2023 12:00 PM EDT Surgery Electrophysiology Lab at [place] [phone] Xavier Malhotra MD [facility] [place] [address] ELECTROPHYSIOLOGY PROCEDURE 01/14/2024 10:40 AM EDT Office Visit Cardiology at [address] [phone] Carmen Castaneda PA [facility] [place] [address] Scheduled Procedures Name Priority Associated Diagnoses Date/Ti [...] fibrillation documented in this encounter Care Teams Laboratory Worker Relationship Specialty Start Date End Date Evelyne Hunt APRN [address] [place] [address] PCP - General Internal Medicine 09/23/17 documented as of this encounter
--- OUTSIDE RECORDS SUMMARY | 2023-12-01 02:12 | XMS_ITS | Encounter Summary ---
Author Organization [facility] [place] [address] Care Team Providers Care Auto Hauler Name Role Phone Evelyne Hunt TENISHA Primary Care Provider [phone] Encounter Details Date Type Department Care Team (Late st Contact Info) Description 08/13/2021 Telephone Gyne[place] [address] Radha Cain, RN Social History Tobacco Use Types Packs/Day [...] encounter Miscellaneous Notes * Telephone Encounter - Radha Cain RN - 08/13/2021 9:15 AM EDT Reviewed patient's labs. Called and informed her that they are within treatment parameters. Patientverbalized understanding. Denies any further questions at this time. documented in this encounter Plan of Treatment Upcoming Encounters Date Type Department Care Team (Latest Contact Info) Description 12/25/2023 9:[address] [place] [phone] Xavier Malhotra MD [facility] [place] [address] 12/29/2023 Hospital Encounter Electrophysiology Lab at [place] [phone] Xavier Malhotra MD [facility] [place] [address] Paroxysmal atrial fibrillation 12/29/2023 7:30 AM EDT - 12/29/2023 12:00 PM EDT Surgery Electrophys[place] [phone] Xavier Malhotra MD [facility] [place] [address] ELECTROPHYSIOLOGY PROCEDURE 01/14/2024 10:40 AM EDT Office Visit Cardiology at [place] [phone] Carmen Castaneda PA [facility] [place] [address] Scheduled Procedures Name Priority Associated Diagnoses Date/Ti me TRANSESOPHAGEAL ECHO DURING CATH/EP PROCEDURE Paroxysmal atrial fibrillation 12/29/2023 7:30 AM EDT documented as of this encounter Goals Goal Patient Goal Type Associated Problems Recent Progress Patient-Stated? Author DH Home Medication Compliance and Understanding Patient Facing Action Plan Lani Love, [facility] Note: Maintain control of disease for as long as possible as assessed by tumor marker levels and scans in clinic every 3 to 6 months documented as of this encounter Visit Diagnoses Not on filedocumented in this encounter Care Teams Auto Hauler Relationship Specialty Start Date End Date Evelyne Hunt APRN [address] [place] [address] PCP - General Internal Medicine 09/23/17 documented as of this encounter
--- OUTSIDE RECORDS SUMMARY | 2023-12-01 02:12 | XMS_ITS | Encounter Summary ---
Author Organization [facility] [place] [address] Care Team Providers Care Head Of It Name Role Phone Evelyne Hunt Dat STEVEN Primary Care Provider [phone] Encounter Details Date Type Department Care Team (Late st Contact Info) Description 08/07/2021 Orders Only Dermatology at [address] [phone] Mitzi Benton MD [facility] [place] [address] Vitiligo Social History Tobacco Use Types Packs/Day [...] 9:[address] [place] [phone] Xavier Malhotra MD [facility] [address] [place], [place] [phone] 12/29/2023 Hospital Encounter [place] [phone] Xavier Malhotra MD [facility] [place] [address] Paroxysmal atrial fibrillation 12/29/2023 7:30 AM EDT - 12/29/2023 12:00 PM EDT Surgery [place] [phone] Xavier Malhotra MD [facility] [place] [place] [address] ELECTROPHYSIOLOGY PROCEDURE 01/14/2024 10:40 AM EDT Office Visit Cardiology at [address] [phone] Carmen Castaneda PA [facility] [address] Scheduled Procedures Name Priority Associated Diagnoses Date/Ti me TRANSESOPHAGEAL ECHO DURING CATH/EP PROCEDURE Paroxysmal atrial fibrillation 12/29/2023 7:30 AM EDT documented as of this encounter Goals Goal Patient Goal Type Associated Problems Recent Progress Patient-Stated? Author DH Home Medication Compliance and Understanding Patient Facing Action Plan Lani Love, [facility] Note: Maintain control of disease for as long as possible as assessed by tumor marker levels and scans in clinic every 3 to 6 months documented as of this encounter Visit Diagnoses Diagnosis Vitiligo Paroxysmal atrial fibrillation Atrial fibrillation Paroxysmal atrial fibrillation Atrial fibrillation documented in this encounter Care Teams Head Of It Relationship Specialty Start Date End Date Evelyne Hunt APRN [address] [place] [address] PCP - General Internal Medicine 09/23/17 documented as of this encounter
--- OUTSIDE RECORDS SUMMARY | 2023-12-01 02:12 | XMS_ITS | Encounter Summary ---
Author Organization [facility] Address [facility] [place] [address] Care Team Providers Care Skip Load Driver Name Role Phone Evelyne Hunt APRN Primary Care Provider [phone] Reason for Referral * Consultation (Routine) - Closed Specialty Diagnoses / Procedures Referred By Contac t Referred To Contact Cardiac Surgery Diagnoses Aortic valve stenosis, etiology of cardiac valve disease unspecified Mandeep Franco MD [facility] [address] Efrain Felder MD [facility] [place] [address] Referral ID Status Reason Start Date Expiration Date V isits Requested Visits Authorized [id number] Closed Consult, Test & Treat 11/29/2021 11/29/2022 1 1 Encounter Details Date Type Department Care Team (Late st Contact Info) Description 11/29/2021 10:40 AM EDT Office Visit Cardiology at [address] [address] Mandeep Franco MD [facility] [place] [address] Aortic valve stenosis, etiology of cardiac valve [...] Sign Reading Time Taken Comments Blood Pressure 128/70 11/29/2021 10:37 AM EDT Pulse 71 11/29/2021 10:37 AM EDT Temperature - - Respiratory Rate - - Oxygen Saturation 100% 11/29/2021 10:37 AM EDT Inhaled Oxygen Concentration - - Weight 60.4 kg (133 lb 1.6 oz) 11/29/2021 10:37 AM EDT Height 166.4 cm (5' 5.5) 11/29/2021 10:37 AM ED T Body Mass Index 21.81 11/29/2021 10:37 AM EDT documented in this encounter Patient Instructions * Patient Instructions* Mandeep Franco MD - 11/29/2021 10:40 AM EDT Needs appt with CT surgery ([place]) Needs RHC/LHC F/u with me in 1-2 month documented in this encounter Progress Notes * Mandeep Franco MD - 11/29/2021 10:40 AM EDT Images from the original note were not included. [facility] [place] [address] [place] [address] Cardiology Clinic Note CC: Aortic valve disease Patient Name: Gabi Luna HPI: Gabi Luna is a 61 y.o. year old female with a PMH of ovarian cancer, moderate , moderate AI as well as SVT status post unsuccessful ablation previously followed by Dr. Subramanian. ??She had electrophysiology procedure in July 2020 which was unable to induce and ablate episodes of SVT. She has been on low-dose metoprolol as well as diltiazem. Here today to establish care. States that her cardiac issues are all manageable and that she is feeling better than she has felt in a long time. However, she admits that she does notice dyspnea with exertion. Has had to backoff on some of the hills she could ascend more easily in the past. Experiences lightheadedness on occasion as well. Describes feeling like I could pass out though she has not lost consciousness. 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 BRCA negative Z13.71 Past Surgical History: Procedure Laterality Date ??? APPENDECTOMY 08/26/2013 ??? SECTION ??? IR MEDIPORT PLACEMENT 08/20/2019 IR Mediport Placement 08/20/2019 Jourdan Lopez PA [facility] RAD ??? IR MEDIPORT REMOVAL 10/04/2020 IR Mediport Removal 10/04/2020 Mahesh Wick MD [facility] RAD ??? PRO GINA SALP-OOPH W/OMENTECT, FREDI, RAD DISSECT N/A 07/20/2019 @HYSTERECTOMY, FREDI, BSO, DEBULKING (WRVU 34.13) performed by Natalie Vallejo MD at [facility] MAIN OR ??? PRO COLONOSCOPY, REMV LESN, SNARE N/A 05/01/2021 COLONOSCOPY, POLYPECTOMY, REMOVAL LESION BY SNARE (WRVU 4.67) performed by Arlin Agudelo MDat [facility] ENDOSCOPY Current Outpatient Medications Medication Instructions ??? atorvastatin (Lipitor) 40 mg Tablet atorvastatin 40 mg tablet ??? buPROPion XL (Wellbutrin XL) 300 mg Tablet Extended Release 24 hr TK 1 T PO QAM ??? clobetasoL (Temovate) 0.05 % Ointment Apply to the affected area daily at night for 6 to 12 weeks and then one to three times per week for maintenance. Apply sparingly (a dot 3 mm wide) in a thinfilm over the affected area. ??? desonide (DESOWEN) 0.05 % Ointment Topical (Top), 2 TIMES DAILY, Use for 3-4 days, then switch to protopic, and continue alternating in that manner. ??? dexamethasone (Decadron) 4 mg Tablet Take one tablet each Friday and friday ??? dilTIAZem CD (CARDIZEM CD) 360 mg, Oral, DAILY ??? ergocalciferol, vitamin D2, (VITAMIN D ORAL) Oral, DAILY ??? hydroCHLOROthiazide (HYDRODIURIL) 25 mg, Oral ??? HYDROcodone-acetaminophen ([place]) 5-325 mg Tablet 325 mg, Oral, PRN ??? ibuprofen (ADVIL) 800 mg, Oral, PRN ??? LORazepam (ATIVAN) 0.5 mg, Oral, PRN ??? metoprolol succinate XL (TOPROL-XL) 25 mg, Oral, DAILY ??? niraparib (ZEJULA) 100 mg, Oral, DAILY ??? tacrolimus (Protopic) 0.1 % Ointment Topical (Top), 2 TIMES DAILY ??? triamcinolone (Kenalog) 0.1 % Cream Apply twice daily to affected areas of the trunk and extremities for 14 days, then take 1 week off, repeat as needed ??? valACYclovir (Valtrex) 1 gram Tablet Take 2g twice daily for 1 day at first sign of infection. Social History Socioeconomic History ??? Marital status: Spouse name: Not on file ??? Number of children: Not on file ??? Years of education: Not on file ??? Highest education level: Not on file Occupational History ??? Not on file Tobacco Use ??? Smoking status: Former Smoker Quit date: 07/12/1977 Years since quittin.4 ??? Smokeless tobacco: Never Used Vaping Use ??? Vaping Use: Never used Substance and Sexual Activity ??? Alcohol use: Yes Alcohol/week: 3.0 standard drinks Types: 3 Glasses of wine per week ??? Drug use: Never ??? Sexual activity: [...] Temperature Temp: -- Heart Rate Heart Rate: 71 Heart Rate: [71] Blood Pressure BP: 128/70 BP: (128)/(70) Respiratory Rate Resp: -- SpO2 SpO2: 100 % SpO2: [100 %] Examination: CONST: Pleasant, Well-appearing NEURO: Oriented x3; no obvious deficits PSYCH: NAD, Normal mood HEENT: Non-icteric sclera MSK: Ambulates w/o difficulty CV: JVP not elevated; RRR, high pitched, late peaking KANDY at RUSB, absent A2 PULM: CTAB GI: Soft, non-tender, non-distended, +BS [...] in the last 168 hours. Diagnostic Studies: TTE (11/2021) Interpretation Summary 1. The left [...] who was previously followed by Dr. Subramanian. She is here today as a new patient for me and had anechocardiogram earlier this morning. Her echo performed this morning demonstrates a bicuspid valve now with severe stenosis and moderateregurgitation. The valve appears calcified with impaired systolic motion of the leaflets. The mean gradient across her valve increased from 33 mmHg on her last study (01/2020) to 49 mmHg on today's study. Calculated SUDHAKAR is 0.7 cm?? with a max velocity across the aortic valve of 4.6 m/s. There is moderate basal septal hypertrophy with JERRY and an LVOT gradient of 5 mmHg at rest (34 mmHg with Valsalva). I reviewed the images from her echocardiogram carefully and there are 2 distinct Doppler signals: 1 from the aortic stenosis and the other from JERRY/LVOT obstruction. Therefore, I believe that thevelocities across the AoV are indeed due to (and not subvalvular in origin). We spent the majority of this visit discussing the implications of her echocardiographic findings. Given that she has symptoms (MIRANDA, lightheadedness) in the setting of severe , she has a class I indication for a surgical valve replacement. We discussed the pathophysiology and natural history of aortic stenosis in the context of a bicuspid valve. She does have some familiarity with this as she has multiple family members with bicuspid valves including her mother who was cared for by Dr. Felder. I have entered a referral for CT surgery and referred her for coronary angiography and a right heart catheterization prior to that visit. We discussed signs and symptoms to monitor for and which should prompt her to call me. PLAN: # Bicuspid aortic valve # Aortic stenosis, severe, symptomatic # Aortic regurgitation, moderate - 01/2020: SUDHAKAR: 1.3 cm2, M mmHg - 09/2021: SUDHAKAR: 0.7 cm2, M mmHg, Vmax: 4.6 m/sec - referral to CT surgery entered - will send for a RHC/LHC prior to that visit # Septal thickening # JERRY, in setting of a hyperdynamic LV and thickened basal septum - MG at rest: 5 mmHg; MG with Valsalva: 34 mmHg # SVT - No SVT during EPS Mandeep Franco MD, FACP, FACC Section of Cardiovascular Medicine [facility] Mechanical Detailerradiation oncology therapist [facility] documented in this encounter Plan of Treatment Upcoming Encounters Date Type Department Care Team (Latest Contact Info) Description 12/25/2023 9:[address] Scan at [place] [phone] Xavier Malhotra MD [facility] [place] [address] 12/29/2023 Hospital Encounter Electrophysiology Lab at [place] [phone] Xavier Malhotra MD [facility] [place] [address] Paroxysmal atrial fibrillation 12/29/2023 7:30 AM EDT - 12/29/2023 12:00 PM EDT Surgery Electrophysiology Lab at [place] [id number] Xavier Malhotra MD [facility] [place] [address] ELECTROPHYSIOLOGY PROCEDURE 01/14/2024 10:40 AM EDT Office Visit Cardiology at [place] [phone] Carmen Castaneda PA [facility] [place] [address] Scheduled Procedures Name Priority Associated Diagnoses Date/Ti me TRANSESOPHAGEAL ECHO DURING CATH/EP PROCEDURE Paroxysmal atrial fibrillation 12/29/2023 7:30 AM EDT Scheduled Referrals Name Type Priority Associated Diagnoses Order Schedule Referral to Cardiothoracic Surgery Outpatient Referral Routine Aortic valve stenosis, etiology of cardiac valve disease unspecified Ordered: 11/29/2021 documented as of this encounter Goals Goal [...] fibrillation documented in this encounter Care Teams Skip Load Driver Relationship Specialty Start Date End Date Evelyne Hunt APRN [address] [place] [address] PCP - General Internal Medicine 09/23/17 documented as of this encounter
--- OUTSIDE RECORDS SUMMARY | 2023-12-01 02:12 | XMS_ITS | Encounter Summary ---
Author Organization [facility] [place] [address] Care Team Providers Care Linen Supply Load Builder Name Role Phone Kiki Huntyce Dat STEVEN Primary Care Provider [phone] Encounter Details Date Type Department Care Team (Late st Contact Info) Description 08/09/2021 Telephone [place] [phone] Radha Cain, RN Social History Tobacco Use [...] Telephone Encounter - Radha Cain RN - 08/09/2021 2:22 PM EDT Nurse called patient after speaking with . Patient states that she received a phone call from pairer inspector since we last spoke this morning and the plan is to decrease dose on the dexamethasone. No further questions at this time. * Telephone Encounter - Radha Cain RN - 08/09/2021 9:39 AM EDT Nurse called patient to inquire about labs as she is currently due. Patient states that she has an appointment scheduled for tomorrow, August 10 at [facility]. Assessment: Patient is very worried as she was recently seen by her pairer inspector for dx:vitiligo. She states that her skin is falling off and has a terrible flare up. Her hands and forehead turned completely white. She tried dexamethasone as prescribed by uri and states that she had heart pa lpitations that caused her to stop taking this medication altogether. Patient spoke with derm on 08/07 to try switching to methotrexate, but she doesn't want to take anything that will jeopardize herhealth or current treatment on Zejula. Patient states that she was informed that the methotrexate could make her more susceptible to infection and requires regular lab monitoring as it can cause anemia and leukopenia as well as stomach upset and mucositis. She states that she would like 's input on this medication and see what her recommendation is. Plan: Forward message to MD for review and medical advice. Patient would like a phone call from clinic. documented in this encounter Plan of Treatment Upcoming Encounters Date Type Department Care Team (Latest Contact Info) Description 12/25/2023 9:[address] [place] [address] Xavier Malhotra MD [facility] [place] [address] 12/29/2023 Hospital Encounter [place] [address] Xavier Malhotra MD [facility] [place] [address] Paroxysmal atrial fibrillation 12/29/2023 7:30 AM EDT - 12/29/2023 12:00 PM EDT Surgery [place] [address] Xavier Malhotra MD [facility] [place] [address] ELECTROPHYSIOLOGY PROCEDURE 01/14/2024 10:40 AM EDT Office Visit Cardiology at [address] [phone] Carmen Castaneda PA [facility] [place] [address] Scheduled Procedures Name Priority Associated Diagnoses Date/Ti me TRANSESOPHAGEAL ECHO DURING CATH/EP PROCEDURE Paroxysmal atrial fibrillation 12/29/2023 7:30 AM EDT documented as of this encounter Goals Goal Patient Goal Type Associated Problems Recent Progress Patient-Stated? Author [facility] Medication Compliance and Understanding Patient Facing Action Plan No Lani Vargas, [facility] Note: Maintain control of disease for as long as possible as assessed by tumor marker levels and scans in clinic every 3 to 6 months documented as of this encounter Visit Diagnoses Not on filedocumented in this encounter Care Teams Linen Supply Load Builder Relationship Specialty Start Date End Date Evelyne Hunt APRN [address] [place] [address] PCP - General Internal Medicine 09/23/17 documented as of this encounter
--- OUTSIDE RECORDS SUMMARY | 2023-12-01 02:12 | XMS_ITS | Encounter Summary ---
Author Organization [facility] Address [facility] [place] [address] Care Team Providers Care Client Relation Specialist Name Role Phone Evelyne Hunt Dat STEVEN Primary Care Provider [phone] Reason for Referral * Consultation (Routine) - Closed Specialty Diagnoses / Procedures Referred By Contbeatriz t Referred To Contact Dermatology Diagnoses Vitiligo Mitzi Benton MD [facility] [place] [address] Haresh Erwin MD [address] [place] [address], [facility] [place] [address] Referral ID Status Reason Start Date Expiration Date V isits Requested Visits Authorized [id number] Closed Consult, Test & Treat 08/20/2021 08/20/2022 1 1 Encounter Details Date Type Department Care Team (Late st Contact Info) Description 08/20/2021 Orders Only Dermatology at [facility] [address] [place] [address] Mitzi Benton MD [facility] [place] [address] Vitiligo Social History Tobacco Use Types Packs/Day [...] 9:[address] Scan at [place] [phone] Xavier Malhotra MD [facility] [place] [address] 12/29/2023 Hospital Encounter Electrophysiology Lab at [place] [address] Xavier Malhotra MD [facility] [place] [address] Paroxysmal atrial fibrillation 12/29/2023 7:30 AM EDT - 12/29/2023 12:00 PM EDT Surgery Electrophysiology Lab at [place] [address] Xavier Malhotra MD [facility] [place] [address] ELECTROPHYSIOLOGY PROCEDURE 01/14/2024 10:40 AM EDT Office Visit Cardiology at [place] [phone] Carmen Castaneda PA [facility] [address] Scheduled Procedures Name Priority Associated Diagnoses Date/Ti me TRANSESOPHAGEAL ECHO DURING CATH/EP PROCEDURE Paroxysmal atrial fibrillation 12/29/2023 7:30 AM EDT Scheduled Referrals Name Type Priority Associated Diagnoses Order Schedule Referral to Dermatology Outpatient Referral Routine Vitiligo Ordered: 08/20/2021 documented as of this encounter Goals Goal Patient Goal Type Associated Problems Recent Progress Patient-Stated? Author [facility] Medication Compliance and Understanding Patient Facing Action Plan Lani Love, [facility] Note: Maintain control of disease for as long as possible as assessed by tumor marker levels and scans in clinic every 3 to 6 months documented as of this encounter Visit Diagnoses Diagnosis Vitiligo Paroxysmal atrial fibrillation Atrial fibrillation Paroxysmal atrial fibrillation Atrial fibrillation documented in this encounter Care Teams Client Relation Specialist Relationship Specialty Start Date End Date Evelyne Hunt APRN [address] [place] [address] PCP - General Internal Medicine 09/23/17 documented as of this encounter
--- OUTSIDE RECORDS SUMMARY | 2023-12-01 02:12 | XMS_ITS | Encounter Summary ---
Author Organization [facility] [place] [address] Care Team Providers Care Consultant Nurse Name Role Phone Kiki Huntjunaid Daugherty APRN Primary Care Provider [phone] Encounter Details Date Type Department Care Team (Latest Contact Info) Description 01/07/2022 11:30 AM EDT Laboratory [place] [address] History of ovarian cancer; Aortic valve stenosis, etiology of cardiac valve disease unspecified; Systolic anterior movement of mitral valve Social History Tobacco Use Types Packs/Day [...] EDT [place]ment [place] [phone] Xavier Malhotra MD [facility] [place] [address] 12/29/2023 Hospital Encounter [place] [phone] Xavier Malhotra MD [facility] [place] [address] Paroxysmal atrial fibrillation 12/29/2023 7:30 AM EDT - 12/29/2023 12:00 PM EDT Surgery [place] [phone] Xavier Malhotra MD [facility] [place] [address] ELECTROPHYSIOLOGY PROCEDURE 01/14/2024 10:40 AM EDT Office Visit Cardiology at [address] [phone] Carmen Castaneda PA [facility] [place] [address] Scheduled Procedures Name Priority Associated Diagnoses Date/Ti [...] Procedure Name Priority Date/Time Associated Diagnosis Comments TYPE AND SCREEN VALIDITY Routine 01/07/2022 12:14 PM EDT ABORH RECHECK STATUS Routine 01/07/2022 12:14 PM EDT BILIRUBIN, DIRECT Routine 01/07/2022 12: 14 PM EDT HEMOGRAM Routine 01/07/2022 12:14 PM EDT History of ovarian cancer DIFFERENTIAL, AUTOMATED Routine 01/07/2022 12:14 PM EDT History of ovarian cancer HC ANTIBODY DETECTION,CAPTURE-R Routine 01/07/2022 12:14 PM EDT Aortic valve stenosis, etiology of cardiac valve disease unspecified Systolic anterior movement of mitral valve ABO/RH TYPING Routine 01/07/2022 12:14 PM EDT Aortic valve stenosis, etiology of cardiac valve disease unspecified Systolic anterior movement of mitral valve HC CBC,PLT & AUTO DIFF Routine 12:14 PM EDT History of ovarian cancer ANTIBODY SCREEN Routine 01/07/2022 12:14 PM EDT Aortic valve stenosis, etiology of cardiac valve disease unspecified Systolic anterior movement of mitral valve HC VENIPUNCTURE Routine 01/07/2022 12:14 PM EDT History of ovarian cancer COMPREHENSIVE METABOLIC PANEL Routine 01/07/2022 12:14 PM EDT History of ovarian cancer documented in this encounter Results * Type and Screen Validity (01/07/2022 12:14 PM EDT) T&S only valid at [facility] LABORATORY Comment:This Type and Screen result is only valid at the [facility] Blood 01/07/2022 12:1 4 PM EDT 01/07/2022 12:18 PM EDT Narrative Resulting Agency Comment Spec In Lab Efrain Felder MD BLOOD BANK LAB ORD ERABLES Performing Organization Address City/[facility]/ZIP Co de Phone Number [facility] [place] [address] * ABORH Recheck Status (01/07/2022 12:14 PM EDT) ABORH Type Recheck Completed [facility] Blood 01/07/2022 12:1 4 PM EDT 01/07/2022 12:18 PM EDT Narrative Resulting Agency Comment Spec In Lab Efrain Felder MD BLOOD BANK LAB ORD ERABLES Performing Organization Address City/[facility]/ZIP Co de Phone Number [facility] [place] [address] * Bilirubin, Direct (01/07/2022 12:14 PM EDT) Bilirubin, Direct 0.1 0.0 - 0.3 mg/dL [facility] Blood 01/07/2022 12:1 4 PM EDT 01/07/2022 12:25 PM EDT Narrative Resulting Agency Comment Spec In Lab Efrain Felder MD CHEMISTRY ORDERABL ES Performing Organization Address City/[facility]/ZIP Co de Phone Number [facility] [place] [address] * Antibody screen (01/07/2022 12:14 PM EDT) Ab Screen Interp Negative [facility] Expires at [id number] on: 02/01/2022 [facility] Blood 01/07/2022 12:1 4 PM EDT 01/07/2022 12:18 PM EDT Narrative Resulting Agency Comment Spec In Lab Efrain Felder MD BLOOD BANK LAB ORD ERABLES Performing Organization Address City/[facility]/ZIP Co de Phone Number [facility] [place] [address] * ABO/Rh Typing (01/07/2022 12:14 PM EDT) ABORH Type O Pos [facility] Blood 01/07/2022 12:1 4 PM EDT 01/07/2022 12:18 PM EDT Narrative Resulting Agency Comment Spec In Lab Efrain Felder MD BLOOD BANK LAB ORD ERABLES Performing Organization Address City/[facility]/ZIP Co de Phone Number [facility] [place] [address] * Differential, Automated (01/07/2022 12:14 PM EDT) Neutrophil % 61.8 % [facility] Neutrophil Absolute 3.57 1.70 - 6.10 x10(3)/[facility] LABORATORY Lymph % 25.4 % [facility] Lymphocytes Abs 1.5 0.9 - 3.2 x10(3)/[facility] LABORATORY Monocyte % 8.8 % [facility] Monocyte Abs 0.5 0.3 - 0.9 x10(3)/[facility] LABORATORY Eos % 2.4 % [facility] Eosinophils Abs 0.1 0.0 - 0.4 x10(3)/[facility] LABORATORY Basophil % 1.4 % [facility] Baso Absolute 0.1 0.0 - 0.1 x10(3)/[facility] LABORATORY Immature Gran % 0.20 % [facility] Comment: Immature granulocytes(IG's)percentage and absolute count will include metamyelocytes, myelocytes, and promyelocytes. Blood smears from CBCs yielding IG's will be scanned manually for concordance. If this scan disagrees with the automated IG or if promyelocytes are noted, a manual differential will be performed. Immature Gran Absolute 0.01 0.00 - 0.04 x10(3)/[facility] LABORATORY Blood 01/07/2022 12:1 4 PM EDT 01/07/2022 12:25 PM EDT Narrative Resulting Agency Comment Spec In Lab Natalie Vallejo MD HEMATOLOGY ORDERABLE S [facility] [place] [address] * (ABNORMAL) Hemogram (01/07/2022 12:14 PM EDT) White Blood Cell 5.8 4.0 - 9.5 x10(3)/mc L [facility] Red Blood Cell 3.83(L) 4.00 - 5.21 x10(6)/mc L [facility] Hemoglobin 14.7 11.7 - 15.5 g/dL [facility] Hematocrit 40.9 35.7 - 45.8 % [facility] Mean Cell Volume 106.8(H) 82.6 - 94.4 fL [facility] Mean Cell Hemoglobin 38.4(H) 27.1 - 32.0 pg [facility] Mean Cell Hemoglobin Concentration 35.9(H) 31.7 - 35.0 g/dL [facility] Platelet 231 145 - 357 x10(3)/mc L [facility] RDW Standard Deviation 47.8(H) 37.0 - 46.0 fL [facility] RDW coefficient of variation 12.1 11.5 - 14.1 % [facility] Mean Platelet Volume 8.9 7.6 - 12.9 fL [facility] NRBC% auto 0.0 % [facility] NRBC Absolute 0.000 0.000 - 0.000 x10(3)/mc L [facility] Blood 01/07/2022 12:1 4 PM EDT 01/07/2022 12:25 PM EDT Narrative Resulting Agency Comment Spec In Lab Natalie Vallejo MD HEMATOLOGY ORDERABLE S [facility] [place] [address] * (ABNORMAL) Comprehensive metabolic panel (non-fasting) (01/07/2022 12:14 PM EDT) Glucose 102 65 - 199 mg/dL [facility] Comment:Diabetes: >=200 mg/d L plus symptoms Blood Urea Nitrogen 10 8 - 18 mg/dL [facility] Creatinine 0.74 0.70 - 1.20 mg/dL [facility] Sodium 138 135 - 145 mmol/L [facility] [...] questions. Chloride 102 98 - 107 mmol/L [facility] Carbon Dioxide 24 22 - 31 mmol/L [facility] Anion Gap 12 5 - 15 mmol/L [facility] Calcium 10.2 8.5 - 10.5 mg/dL [facility] Protein, Total 7.5 6.1 - 8.0 g/dL [facility] Albumin 4.9 3.2 - 5.2 g/dL [facility] Aspartate Aminotransferase 17 0 - 30 unit/L [facility] Alanine Aminotransferase 15 0 - 30 unit/L [facility] Alkaline Phosphatase 121(H) 35 - 105 unit/L [facility] Bilirubin, Total 0.8 0.2 - 1.3 mg/dL [facility] Est Glomerular Filtration Rate 92 >=60 mL/min/1. 73 m?? [facility] [...] and symptoms in addition to eGFR. Blood 01/07/2022 12:1 4 PM EDT 01/07/2022 12:25 PM EDT Narrative Resulting Agency Comment Spec In Lab Natalie Vallejo MD CHEMISTRY ORDERABLES [facility] [place] [address] * Cancer Antigen 125 (01/07/2022 12:14 PM EDT) CA 125 10.8 <=38.1 unit/mL [facility] Comment: CA 125 Reference Interval ??Postmenopausal: 6.2 to 31.5 U/mL. ??Premenopausal: 6.9 to 45.9 U/mL. ??Pre and Postmenopausal subjects combined: 6.4 to 38.1 U/mL. This result was generated using a Elo Elizabeth immunoassay. ??Results obtained from other methods or manufacturers cannot be used interchangeably with this method. Blood 01/07/2022 12:1 4 PM EDT 01/07/2022 12:25 PM EDT Narrative Resulting Agency Comment Spec In Lab Natalie Vallejo MD CHEMISTRY ORDERABLES [facility] [place] [address] documented in this encounter Visit Diagnoses Diagnosis History of ovarian cancer Personal history of malignant neoplasm of ovary Aortic valve stenosis, etiology of cardiac valve disease unspecified Systolic anterior movement of mitral valve Mitral valve disorders Paroxysmal atrial fibrillation Atrial fibrillation Paroxysmal atrial fibrillation Atrial fibrillation documented in this encounter Care Teams Consultant Nurse Relationship Specialty Start Date End Date Evelyne Hunt, TENISHA Karen[address] [place] [address] PCP - General Internal Medicine 09/23/17 documented as of this encounter
--- OUTSIDE RECORDS SUMMARY | 2023-12-01 02:12 | XMS_ITS | Encounter Summary ---
Author Organization [facility] [place] [address] Care Team Providers Care Space Technologist Name Role Phone Evelyne Hunt Dat STEVEN Primary Care Provider [phone] Reason for Visit * Reason Comments Medication Refill Encounter Details Date Type Department Care Team (Late st Contact Info) Description 01/14/2022 Specialty [place] [phone] Lani Vargas [facility] Social History Tobacco Use Types [...] Progress Notes * Lani Vargas RPH - 01/14/2022 1:39 PM EDT error * Lizz Jones RP - 01/14/2022 1:39 PM EDT Clinical Management Plan: Refill Specialty Pharmacy Consultation; Lizz Jones RPH Comprehensive Medication Management (CMM) Gabi Eber Cheryl Ms. Gabi Luna is a 61 y.o. (1960) female who was contacted in regard to a specialty medication refill reminder. Contact made with patient regarding Zejula . A review of the medication therapy was [...] complete drug. Medication Reconciliation Discrepancies (compared to [facility] med list) No Specialty Pharmacy Refill Questionnaire Refill Questionnaire 01/14/2022 What is the name of the specialty medication you are refilling? Zejula Are you taking any new medications? No Please explain - Any new medical condition? No Any new allergies? No Any new side effects that are bothersome? No What date will you need this fill by? 01/22/2022 Adherence: Any missed doses? No Patient understands no changes to current drug regimen were made. Lizz Jones RPH 01/14/22 4:44 PM documented in this encounter Plan of Treatment Upcoming Encounters Date Type Department Care Team (Latest Contact Info) Description 12/25/2023 9:[address] [place] [phone] Xavier Malhotra MD [facility] [place] [address] 12/29/2023 Hospital Encounter [place] [address] Xavier Malhotra MD [facility] ELECTROP[place] [address] Paroxysmal atrial fibrillation 12/29/2023 7:30 AM EDT - 12/29/2023 12:00 PM EDT Surgery [place] [phone] Xavier Malhotra MD [facility] [place] [address] ELECTROPHYSIOLOGY PROCEDURE 01/14/2024 10:40 AM EDT Office Visit Cardiology at [address] [phone] Carmen Castaneda PA [facility] [place] [address] Scheduled Procedures Name Priority Associated Diagnoses Date/Ti me TRANSESOPHAGEAL ECHO DURING CATH/EP PROCEDURE Paroxysmal atrial fibrillation 12/29/2023 7:30 AM EDT documented as of this encounter Goals Goal Patient Goal Type Associated Problems Recent Progress Patient-Stated? Author DH Home Medication Compliance and Understanding Patient Facing Action Plan Lani Love, [facility] Note: Maintain control of disease for as long as possible as assessed by tumor marker levels and scans in clinic every 3 to 6 months documented as of this encounter Visit Diagnoses Not on filedocumented in this encounter Care Teams Space Technologist Relationship Specialty Start Date End Date Evelyne Hunt APRN [address] [place] [address] PCP - General Internal Medicine 09/23/17 documented as of this encounter
--- OUTSIDE RECORDS SUMMARY | 2023-12-01 02:12 | XMS_ITS | Encounter Summary ---
[place] [address] Care Team Providers Care Mold Chipper Name Role Phone Evelyne Hunt APRN Primary Care Provider [phone] Encounter Details Date Type Department Care Team (Late st Contact Info) Description 08/06/2021 Telephone Dermatology at [facility] [address] [place] [address] Magda Josue LPN Social History Tobacco Use Types Packs/Day Years [...] Telephone Encounter - Mitzi Fitzgerald MD - 08/09/2021 2:38 PM EDT Called pt back: decrease dexamethasone to 2mg twice weekly and reevaluate for return of symptoms. Would see how she does with this and then can consider low- dose methotrexate. Pt agrees and will let me know how she does. * Telephone Encounter - Mitzi Fitzgerald MD - 08/07/2021 4:31 PM EDT Returned pt's call. Agree with stopping dexamethasone 4mg Fri-Friday, would consider decreasing to 2mg if pt is okay with this. Would stop completely for any recurrence of symptoms. Discussed other treatment options include NB-UVB phototherapy although pt lives 1 hour away, low dose methotrexate. Pt willing to trial phototherapy, will start 2x/week. Order placed for phototherapy, and I ordered valtrex 2g BID x 1 day for any cold sore recurrences. Discussed that methotrexate will make her more susceptible to infection and requires regular lab monitoring as it can cause anemia and leukopenia as well as stomach upset and mucositis. Pt requests Idiscuss with her account solutions analyst provider because of the Zejula she is also on which can cause similar side effects and also requires regular lab monitoring. * Telephone Encounter - Magda Josue LPN - 08/06/2021 4:16 PM EDT Gabi called the office and stated she believes she is having a side effect to the Dexamethasone. She was diagnosed with Vitiligo upon her visit to Dermatology back on 07/20/2021. She had started the medication back on July 21 and took the first dose that Friday as directed. In the afternoon she started feeling anxious and irritated. She was on vacation and she was walking her heart started racing. She has a history of SVT and Aortic valve stenosis. Which she is on medication for and has beenstable for several years. She decided not to take the medication on Friday as directed. The week went past and she took a dose on that following Friday. Again in the PM she started having symptoms and she had to sit down when walking. She mentioned she thought if she was to have side effects it would of happened a few hours after the med's but not several hours after. Once again she did not take the med on Friday and seemed to be fine during the week. This is the only new med besides the topicals, she has started. She is wondering if there is something else that can use. She mentioned the tops of the hands are completley white. She feels they are worse now than when she came in the first time. She is using the topicals as directed. Her forehead is stable. It was suggested to hold the medication until Dr. Fitzgerald has a chance to review and we get back in contact with her. She agreed to plan. documented in this encounter Plan of Treatment Upcoming Encounters Date Type Department Care Team (Latest Contact Info) Description 12/25/2023 9:[address] Scan at [place] [phone] Xavier Malhotra MD [facility] [place] [address] 12/29/2023 Hospital Encounter [place] [address] Xavier Malhotra MD [facility] [place] [address] Paroxysmal atrial fibrillation 12/29/2023 7:30 AM EDT - 12/29/2023 12:00 PM EDT Surgery Electrophysiology Lab at [place] [phone] Xavier Malhotra MD [facility] [place] [address] ELECTROPHYSIOLOGY PROCEDURE 01/14/2024 10:40 AM EDT Office Visit Cardiology at [place] [phone] Carmen Castaneda PA [facility] [place] [address] Scheduled Procedures Name Priority Associated Diagnoses Date/Ti me TRANSESOPHAGEAL ECHO DURING CATH/EP PROCEDURE Paroxysmal atrial fibrillation 12/29/2023 7:30 AM EDT documented as of this encounter Goals Goal Patient Goal Type Associated Problems Recent Progress Patient-Stated? Author [facility] Medication Compliance and Understanding Patient Facing Action Plan Lani Love, [facility] Note: Maintain control of disease for as long as possible as assessed by tumor marker levels and scans in clinic every 3 to 6 months documented as of this encounter Visit Diagnoses Not on filedocumented in this encounter Care Teams Mold Chipper Relationship Specialty Start Date End Date Evelyne Hunt APRN Karen[address] [place] [address] PCP - General Internal Medicine 09/23/17 documented as of this encounter
--- OUTSIDE RECORDS SUMMARY | 2023-12-01 02:12 | XMS_ITS | Encounter Summary ---
Author Organization [place] [address] Care Team Providers Care Syrup Filterer Name Role Phone Kiki uHntyce Dat STEVEN Primary Care Provider [phone] Encounter Details Date Type Department Care Team (Late st Contact Info) Description 08/06/2021 Telephone Cardiology at [address] [phone] Praveena Petty, RN Social History Tobacco Use [...] Telephone Encounter - Praveena Petty RN - 08/06/2021 11:15 AM EDT Patient called to inquire about process for changing providers since Dr. Subramanian is leaving in October.After discussion patient would like to transition to Dr. Franco. Schedulers were contacted to reach out for her October F/U appt. Additionally, patient had questioned possible cardiac effects from her use of Dexamethasone for hervitiligo. She says she wants to continue it but after starting it per her Bed Teacher, she felt funky the first Friday used and then did not use it the following Friday as instructed. She then retired it but felt weak and anxious. She denies any CP or palpitations but did have one episode on feeling like her heart was racing. With her hx of SVT it was discussed that she could have had a brief episode due to stress and/or dehydration or other factors. She says that being on the higher dose of Diltiazem has helped reduce the sx. Patient says she also had called her oncologist but has not yet called her crusher and binder operator to discussher current sx but will after recommendation. Dr. Subramanian is away this week. Praveena Vega RNnuts and bolts assembler [facility] General Team-[place] documented in this encounter Plan of Treatment Upcoming Encounters Date Type Department Care Team (Latest Contact Info) Description 12/25/2023 9:[address] Scan at [place] [phone] Xavier Malhotra MD [facility] [place] [address] 12/29/2023 Hospital Encounter Electrophysiology Lab at [place] [phone] Xavier Malhotra MD [facility] [place] [place] [address] Paroxysmal atrial fibrillation 12/29/2023 7:30 AM EDT - 12/29/2023 12:00 PM EDT Surgery Electrophysiology Lab at [place] [phone] Xavier Malhotra MD [facility] [place] [address] ELECTROPHYSIOLOGY PROCEDURE 01/14/2024 10:40 AM EDT Office Visit Cardiology at [place] [phone] Carmen Castaneda PA [facility] [place] [place] [address] Scheduled Procedures Name Priority Associated Diagnoses Date/Ti [...] on filedocumented in this encounter Care Teams Syrup Filterer Relationship Specialty Start Date End Date Evelyne Hunt APRN [address] [place] [address] PCP - General Internal Medicine 09/23/17 documented as of this encounter
--- OUTSIDE RECORDS SUMMARY | 2023-12-01 02:12 | XMS_ITS | Encounter Summary ---
Author Organization [facility] Address [facility] [place] [address] Care Team Providers Care Spoke Maker Name Role Phone Evelyne Hunt APRN Primary Care Provider [phone] Encounter Details Date Type Department Care Team (Late Contact Info) Description 09/10/2021 Telephone Dermatology at [facility] [address] [place] [address] Mitzi Benton MD [facility] [address] [place] [address] Social History Tobacco Use Types Packs/Day Years [...] encounter Miscellaneous Notes * Telephone Encounter - Liana Sawyer - 09/10/2021 11:25 AM EDT Pt called and said her vitaligo is spreading over her face. She needs to know what she can do to help with this??? Call her at: [phone]. Liana documented in this encounter Plan of Treatment Upcoming Encounters Date Type Department Care Team (Latest Contact Info) Description 12/25/2023 9:[address] [place] [address] Xavier Malhotra MD [facility] [place] [address] 12/29/2023 Hospital Encounter [place] [phone] Xavier Malhotra MD [facility] [place] [address] Paroxysmal atrial fibrillation 12/29/2023 7:30 AM EDT - 12/29/2023 12:00 PM EDT Surgery [place] [phone] Xavier Malhotra MD [facility] [place] [address] ELECTROPHYSIOLOGY PROCEDURE 01/14/2024 10:40 AM EDT Office Visit Cardiology at [address] [phone] Carmen Castaneda PA [facility] [place] [address] Scheduled Procedures Name Priority Associated Diagnoses Date/Ti me TRANSESOPHAGEAL ECHO DURING CATH/EP PROCEDURE Paroxysmal atrial fibrillation 12/29/2023 7:30 AM EDT documented as of this encounter Goals Goal Patient Goal Type Associated Problems Recent Progress Patient-Stated? Author DH [place] Medication Compliance and Understanding Patient Facing Action Plan No Lani Vargas, [facility] Note: Maintain control of disease for as long as possible as assessed by tumor marker levels and scans in clinic every 3 to 6 months documented as of this encounter Visit Diagnoses Not on filedocumented in this encounter Care Teams Spoke Maker Relationship Specialty Start Date End Date Evelyne Hunt APRN [address] [place] [address] PCP - General Internal Medicine 09/23/17 documented as of this encounter
--- OUTSIDE RECORDS SUMMARY | 2023-12-01 02:12 | XMS_ITS | Encounter Summary ---
Author Organization [facility] Address [facility] [place] [address] Care Team Providers Care Borematic Operator Name Role Phone Kiki Huntyce Dat STEVEN Primary Care Provider [phone] Reason for Visit * Auth/Cert Specialty Diagnoses / Procedures Referred By Contac t Referred To Contact Diagnoses Nonrheumatic aortic (valve) stenosis Aortic valve stenosis, etiology of cardiac valve disease unspecified [I35.0] Procedures PRG CATH PLMT CORONARY ART W/INJ FOR ANGIO W/R HEART CATH IMG S&I CARDIAC CATHETERIZATION CORONARY ANGIOGRAPHY; [facility] Cristóbal Cuevas MD [facility] [place] [address] [facility] Referral ID Status Reason Start Date Expiration Date Visits Re quested Visits Authorized [id number] 1 1 Encounter Details Date Type Department Care Team (Late st Contact Info) Description 12/17/2021 11:30 AM EDT - 12/17/2021 12:30 PM EDT [place] [address] Cristóbal Cuevas MD [facility] [place] [address] CARDIAC CATHETERIZATION Social History Tobacco Use Types Packs/Day Years [...] Sign Reading Time Taken Comments Blood Pressure 131/82 12/17/2021 11:37 AM EDT Pulse 74 12/17/2021 11:37 AM EDT Temperature 36.3 ??C (97.3 ??F) 12/17/2021 11:37 AM E DT Respiratory Rate 14 12/17/2021 11:37 AM EDT Oxygen Saturation 99% 12/17/2021 11:37 AM EDT Inhaled Oxygen Concentration - - Weight 59.5 kg (131 lb 3.2 oz) 12/17/2021 11:37 AM EDT Height 165.1 cm (5' 5) 12/17/2021 11:37 AM EDT Body Mass Index 21.83 12/17/2021 11:37 AM EDT documented in this encounter Discharge Instructions * Discharge Instructions* Harper Rodriguez RN - 12/17/2021 3:55 PM EDT Radial Access for Heart Cath Activity If you are discharged the same day as your procedure, do not drive yourself home. Arrange to have another person drive. You may walk around when you get home, but keep your activity at a minimum until the morning. Try to avoid bending your wrist for the first 12-24 hours after the procedure to allow the artery to fully heal. Do not participate in active sports for 48 hours. Do not lift anything greater than 5 lbs. You may engage in sexual activity after 48 hours. Catheter Insertion Area Care Take the dressing off of the catheter insertion site the morning following the procedure. Leave thesite open to air. If the site is oozing you may cover it with a band aid. You may take a shower if you wish. Look for signs of infection over the next several days. It is uncommon to have any visible blood at the site, any obvious bleeding is abnormal. A bruise around the wrist or small lump under the skin is normal: they generally disappear in 3-5 days. Expect some mild tenderness over the area where the catheter was inserted. You will notice this after the local anesthetic (numbing medicine) wears off. This should improve during the 24-48 hours after the procedure. You may use acetaminophen (tylenol) if needed. Contact your doctor if the discomfort worsens. Problems to Watch for If there is bright red blood flowing from the catheter insertion area: *stop what you are doing *hold pressure steadily on the area for 15 minutes *call for help *if the bleeding does not stop in 15 minutes call 911 for an ambulance. If there is swelling with black and blue color at the catheter insertion site, there may be bleeding inside. Contact the doctor if there is any increase in size. Look at the insertion site for the first few days at home. Signs of infection are: *redness *swelling *yellow, white, green or brown foul smelling drainage. *increased soreness If you think there is an infection, take your temperature. Then call your doctor. The limb on the side where you had your catheterization should look and feel normal in color, sensation, and temperature. If your hand or fingers become cool, pale, blue or change color contact your doctor. If you are having numbness or tingling in your fingers or hand contact your doctor. If you feel faint or dizzy, lie down with your feet elevated. Have someone call the doctor. If you are alert, drink fluids. How to Deal with Chest Pain If you had only the cardiac catheterization, treat any angina or chest discomfort as instructed. Stop what you are doing, and sit or lie down. If prescribed, take nitroglycerin under your tongue. If the angina isn't relieved, take another nitroglycerin in 5 minutes. After another 5 minutes, a third nitroglycerin may be taken. If the angina isn't improved you should call for an ambulance to bring you to the nearest hospital emergency room. If your angina is more frequent or severe than before, contact your doctor. We usually would not expect you to have angina after an angioplasty. If you do get angina, treat itas you did before, but also contact your doctor. Return to Work The doctor will usually have told you when to return to work. If you do not perform heavy physical labor, most people can return to work in a few days. Diet Follow your previous diet unless otherwise instructed. Cardiac Risk Factor If you have coronary artery disease, it is important that you help control it by reducing your cardiac risk factors. If you smoke, we urge you to stop now. If you think this is going to be a problem,let us know so that we may help you. We have dieticians who can help you learn about a low fat, lowcholesterol diet. Cardiac rehabilitation programs can help you set up a regular exercise program. Work with your doctor if you have high blood pressure or sugar diabetes to keep these under control. Medications Take your usual medications medication changes If you are taking medications prescribed by your doctor, do not take any [id number] medicinesor herbal preparations without first discussing this with your doctor or pharmacist. There is the possibility of side effects and interactions when these are combined. Follow Up Care Who to call with questions or problems If there are any questions or problems that you think might be related to your cardiac cath or angioplasty, contact the therapeutic assistant comfort station attendant by calling [facility] at . documented in this encounter Medications at Time of Discharge Medication Sig Dispensed Refills Start Date End Date atorvastatin (Lipitor) 10 mg Tablet Take 10 mg by mouth daily. 11/24/2021 buPROPion XL (Wellbutrin XL) 300 mg Tablet Extended Release 24 hr TK 1 T PO QAM 10/01/2019 atorvastatin (Lipitor) 40 mg Tablet atorvastatin 40 mg tablet 02/06/2022 dilTIAZem CD (Cardizem CD) 120 mg Capsule, Sust. Release 24 hr Take 360 mg by mouth daily. 08/22/2021 02/06/2022 metoprolol succinate XL (Toprol-XL) 25 mg Tablet Sustained Release 24 hrIndications:Hyperte nsion, unspecified type,SVT (supraventricular tachycardia) Take 1 tablet by mouth daily. 90 tablet 2 06/18/2021 02/06/2022 niraparib (Zejula) 100 mg capsuleIndications:ep ithelial ovarian cancer Take 1 capsule (100 mg) by mouth daily. 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 30 capsule 11 04/24/2021 05/02/2022 ergocalciferol, vitamin D2, (VITAMIN D ORAL) Take by mouth daily. 022 documented as of this encounter H&P Notes * Dipak David DO - 12/17/2021 9:38 AM EDT Images from the original note were not included. Patient Name: Gabi Luna Patient Age: 61 y.o. Birthdate: 1960 Admit date: 12/17/2021 Attending Physician: Cristóbal Cuevas MD [facility] [place] [address] [address] SAME DAY CARDIAC CATHETERIZATION LAB H&P ID: Gabi Luna is a 61 y.o. female with past medical history noted below who presents for diagnostic coronary angiogram and right heart athwterization with family and prior history of bicuspidaortic valve seen by outpatient [facility] cardiology for evaluation of moderate to severe aortic stenosis Relevant past medical history ovarian cancer moderate moderate AI SVT status post unsuccessful ablation previously followed by Dr. Subramanian. Gabi Luna has no planned upcoming surgeries. No recent or ongoing bleeding events. No blackstools. Physical Exam: BP 131/82 Pulse 74 Temp 36.3 ??C (97.3 ??F) (Temporal) Resp 14 Ht 165.1 cm (5' 5) Wt 59.5 kg (131 lb 3.2 oz) SpO2 99% BMI 21.83 kg/m?? Gen: Pleasant female in no apparent distress, able to lay flat. Cardiac: Regular rate, holosystolic murmur Pulm: Clear to auscultation bilaterally, no increased work of breathing. Ext: Palpable radial and femoral pulses bilaterally. Palpable DP pulses bilaterally. Neuro: Grossly normal neurologic exam without apparent focal deficit. ASA: 2: Patient with mild systemic disease Mallampati: II: tonsillar pillars are blocked by the tongue Recent Labs: Recent CBC: No results for input(s): WBC, HGB, HCT, PLATELET in the last 7068 hours. Recent BMP: No results for input(s): NA, K, CL, CO2, BUN, CREATININE in the last 7068 hours. Previous cardiac diagnostic studies: Echo 11/29/2021: 1. The left ventricle is normal in chamber size with moderate basal septal hypertrophy and mitral JERRY with evidence of flow acceleration and a mild inducible gradient (5mmHg at rest, 34mmHg with Valsalva). Global and segmental LV systolic function is normal with LVEF of 74% by Arndt's biplane. 2. The right ventricle is normal in size and global systolic function. Estimated PASP is 25mmHg. 3. The aortic valve appears bicommissural with possible fusion of the non-coronary and left coronary cusps. It is very thickened and calcified. There is evidence for severe aortic stenosis (SUDHAKAR 0.74cm2 by VTI continuity, gradients 83/49mmHg, DOI 0.28). There is probably also moderate eccentric regurgitation. 4. See remainder of report for additional findings. When compared to the prior study dated 02/01/2020, LVOT gradients appear decreased but the aortic valve disease has progressed to severe. General consent statement: The indications, expected benefits, and potential risks of heart catheterization were reviewed in detail with the patient. The potential for , heart attack, stroke, kidney failure, hemorrhage, allergic reaction, vascular complications and infection were reviewed in detail. The possibility of stenting and other percutaneous intervention, with associated risk, was reviewed. The possible need for emergent coronary artery bypass surgery was reviewed. Alternatives were discussed and the patient's questions were answered in full. Following this discussion, the patient consented to the procedure and signed a form attesting to this, which is in the chart. Patient is full code. Plan: -no apparent contraindication to DAPT, patient denies upcoming or planned procedures/operations, and denies ongoing or recent bleeding events -proceed as planned -consent signed Dipak David DO [employer] 12/17/2021 documented in this encounter Plan of Treatment Upcoming Encounters Date Type Department Care Team (Latest Contact Info) Description 12/25/2023 9:[address] [place] [address] Xavier Malhotra MD [facility] [place] [address] 12/29/2023 Hospital Encounter [place] [address] Xavier Malhotra MD [facility] [place] [address] Paroxysmal atrial fibrillation 12/29/2023 7:30 AM EDT - 12/29/2023 12:00 PM EDT Surgery [place] [phone] Xavier Malhotra MD [facility] [place] [address] ELECTROPHYSIOLOGY PROCEDURE 01/14/2024 10:40 AM EDT Office Visit Cardiology at [address] [phone] Carmen Castaneda PA [facility] [place] [address] Scheduled Procedures Name Priority Associated Diagnoses Date/Ti me TRANSESOPHAGEAL ECHO DURING CATH/EP PROCEDURE Paroxysmal atrial fibrillation 12/29/2023 7:30 AM EDT documented as of this encounter Goals Goal Patient Goal Type Associated Problems Recent Progress Patient-Stated? Author DH Home Medication Compliance and Understanding Patient Facing Action Plan Lani Love, [facility] Note: Maintain control of disease for as long as possible as assessed by tumor marker levels and scans in clinic every 3 to 6 months documented as of this encounter Procedures Procedure Name Priority Date/Time Associated Diagnosis Comments CARDIAC CATHETERIZATION Routine 12/18/19 22 1:40 PM EDT Aortic valve stenosis, etiology of cardiac valve disease unspecified Cath Plmt Coronary Art W/Inj For Angio W/R Heart Cath Img S&I ([id number]) 12/17/2021 12:11 PM EDT Aortic valve stenosis, etiology of cardiac valve disease unspecified EKG 12-LEAD Routine 12/17/2021 11:53 AM EDT Aortic valve stenosis, etiology of cardiac valve disease unspecified HC VENIPUNCTURE STAT 12/17/2021 10:39 AM EDT SCAN, PERIPHERAL BLOOD STAT 10:39 AM EDT HEMOGRAM STAT 12/17/2021 10:39 AM EDT DIFFERENTIAL, AUTOMATED STAT 12/18/19 10:39 AM EDT HC PROTHROMBIN TIME STAT 12/17/2021 1 0:39 AM EDT HC CBC,PLT & AUTO DIFF STAT 10:39 AM EDT documented in this encounter Results * CARDIAC CATHETERIZATION (12/17/2021 1:40 PM EDT) Anatomical Region Laterality Modality Other Narrative 12/17/2021 2:04 PM EDT ?[facility] ? Cardiac Catheterization/Intervention Report ? Patient Name: Gabi Luna ? Procedure Date: 12/17/2021 ? A #: [id number] ? Primary Physician: Cristóbal Cuevas ? Case #: [id number] ? File Name: [id number] ? Catheterization Order Number: [id number] ? [facility] ? Final Report [place], [place] ? Patient Name: ? Gabi Cheryl ?ID#: ?[id number] ? : ?1960 ? Procedure Date: ? December 17, 2021 ?Case #: ? [id number] ? Room: ? 2 ? Case Physicians: ?Cristóbal Cuevas MBogdanD. ? Start: ?12:45 ?Awilda Dumont M.D. ? Admission: ??12/17/2021 ? Referring Physician: ??Mandeep Franco M.D. ? Procedures: ?* Coronary Angiography ?* Right Heart Catheterization ?* Oximetry ? History ?Gabi Luna is a 61 year old woman. The patient's smoking status is ?Never. The patient also has hypercholesterolemia managed with lipid ?therapy. Prior to the initiation of this procedure, the patient was ?designated as ASA Class III. The CSHA clinical frailty scale is 3: ?Managing Well. ? Diagnostic Tests: ?Prior Coronary Angiography: ? LV ejection fraction within 6 months is 74%. ?Electrocardiography: ? EKG was assessed by ECG. EKG was Abnormal. EKG showed other ? abnormality. ?Medications Prior to Procedure: ? Beta Lee Ann, Calcium Channel Blocking Agent and Statin. ? Indications for Diagnostic Cath: ?The priority of the diagnostic procedure was Elective. Chest pain symptom ?assessment was: Asymptomatic. One of the indications for cath is ?pre-operative assessment for Cardiac Surgery. Functional capacity is >=4 ?METS with symptoms. Surgical risk is Intermediate. One of the indications ?for cath is valvular heart disease. The patient has Severe aortic ?stenosis. ? Technique: ?A 6 SLFr sheath was inserted in the right radial artery utilizing the ?Seldinger technique. A 6 SLFr sheath was inserted in the right median ?antecubital vein utilizing the Seldinger technique. Right heart ?catheterization was performed utilizing a 6Fr BALLOON WEDGE catheter. The ?right coronary artery was injected utilizing a 5Fr JR 4 catheter. A 6Fr ?JL 3.5 catheter was used to inject the left coronary artery. 3,500 units ?of heparin were administered. A total of 150cc of Iso-Paulette were opened, ?61cc of Iso-Paulette were administered and 89cc of Iso-Paulette were wasted. ?Radiation: Fluoro time was 6.4 minutes, dose area product was 25,896 ?mGYcm2 and air kerma was 443 mGY. See the case log for additional ?details. ?The patient received the following medications prior to and during the ?procedure: ? Unfractionated Heparin. ? Hemodynamics: ?Right Heart Pressures ? Resting: ? Syst Diast ? EDP ?a ?v ? m ?RA ? 5 ?3 ? 3 ?RV 28 ?5 ?PA 28 ?11 ?18 ?PCW ?13 ?15 ?12 ? Hemodynamic Profile: ?Profile 1 ?CO ? 4.10 ?CI ? 2.48 ?TSR ? 1,854 ?SVR ? 1,795 ?TPR ?351 ?PVR ?117 ?Technique ?Estimated Brendan ?Left Heart Pressures ? Resting: ? Syst Diast ? EDP ?a ?v ? m ?Ao 127 ?? 72 ?95 ? Oximetry: ?Location ? %Sat ?Location ?%Sat ?Superior Vena Cava ? 74.0 ?Main Pulmonary Artery ?? 68.0 ?Peripheral Arterial ?96.0 ? Coronary Angiography: ?Dominance: Right ?Left Main ? The left main was normal, free of disease. ?Left Anterior Descending ? There was mild diffuse (<=25% stenosis) disease of the proximal ? segment of the left anterior descending artery (LAD). ??The mid ? segment of the LAD had mild diffuse (<=25% stenosis) disease. ? There was a 25% hazy single discrete stenosis of the ostial segment ? of the first diagonal branch (Diagonal 1) of the LAD. ??The Diagonal ? 1 was large. ?Left Circumflex ? The left circumflex (LCX) was normal, free of disease. ?Right Coronary Artery ? There was mild diffuse (<=25% stenosis) disease of the proximal ? segment of the right coronary artery (RCA). ??The RCA was large. ?Ramus ? The ramus was normal, free of disease. ? Indication for Selected Procedures: ?Right Heart catheterization was initiated for Nonrheumatic aortic (valve) ?stenosis (I35.0). ? Vascular Access: ?Vascular Access Management: ? Manual Compression of the right median antecubital vein access site ? was performed. ? Mechanical Compression of the right radial artery access site was ? performed. ? Conclusions: ?* Nonobstructive coronary artery disease ? Complications/Events: ?The patient had no complications during these procedures. ?The attending physician was present for the entire procedure. ?Dr. Cristóbal Cuevas M.D. was present during the moderate sedation ?intraservice time as documented by the sedation nurse. ??Case time = 00:48. ?Dr. Cristóbal Cuevas M.D. performed the coronary angiography, right heart ?catheterization and oximetry. Dr. Awilda Dumont M.D. performed the ?coronary angiography, right heart catheterization and oximetry. ? Cristóbal Cuevas M.D. ? Electronically Signed by: Cristóbal Cuevas M.D. ? Report Finalized: 12/17/2021 ??13:56 ? Cristóbal Cuevas MD CARDIAC CATH ORDERAB LES * EKG 12 Lead (12/17/2021 11:53 AM EDT) Ventricular rate 74 BPM MUSE SYSTEM Atrial Rate 74 BPM MUSE SYSTEM P-R Interval 152 ms MUSE SYSTEM QRS Duration 86 ms MUSE SYSTEM Q-T Interval 404 ms MUSE SYSTEM QTC Calculated (Bezet) 448 ms MUSE SYSTEM Calculated P [place] 62 degrees MUSE SYSTEM Calculated R [place] 37 degrees MUSE SYSTEM Calculated T [place] 24 degrees MUSE SYSTEM INTERPRETATION Normal sinus rhythm Nonspecific ST abnormality Abnormal ECG When compared with ECG of 18-MAY-2019 08:14, No significant change was found Confirmed by MD Erin, Favio ([id number]) on 12/17/2021 1:39:36 PM MUSE SYSTEM 12/17/2021 11:5 3 AM EDT 12/17/2021 1:39 PM EDT Cristóbal Cuevas MD ECG ORDERABLES MUSE SYSTEM * Scan, Peripheral Blood (12/17/2021 10:39 AM EDT) Plat estimate Normal [facility] RBC Morphology Abnormal [facility] Macrocyte 1-5 /HPF [facility] Blood 12/17/2021 10:3 9 AM EDT 12/17/2021 11:07 AM EDT Narrative Resulting Agency Comment Spec In Lab Mandeep Franco MD HEMATOLOGY ORDERAB LES [facility] [place] [address] * Differential, Automated (12/17/2021 10:39 AM EDT) Pathologist [facility] Neutrophil % 65.0 % [facility] Neutrophil Absolute 4.14 1.70 - 6.10 x10(3)/[facility] LABORATORY Lymph % 22.0 % [facility] Lymphocytes Abs 1.4 0.9 - 3.2 x10(3)/[facility] LABORATORY Monocyte % 8.9 % [facility] Monocyte Abs 0.6 0.3 - 0.9 x10(3)/[facility] LABORATORY Eos % 2.8 % [facility] Eosinophils Abs 0.2 0.0 - 0.4 x10(3)/[facility] LABORATORY Basophil % 1.1 % [facility] Baso Absolute 0.1 0.0 - 0.1 x10(3)/[facility] LABORATORY Immature Gran % 0.20 % [facility] Comment: Immature granulocytes(IG's)percentage and absolute count will include metamyelocytes, myelocytes, and promyelocytes. Blood smears from CBCs yielding IG's will be scanned manually for concordance. If this scan disagrees with the automated IG or if promyelocytes are noted, a manual differential will be performed. Immature Gran Absolute 0.01 0.00 - 0.04 x10(3)/[facility] LABORATORY Blood 12/17/2021 10:3 9 AM EDT 12/17/2021 11:07 AM EDT Narrative Resulting Agency Comment Spec In Lab Mandeep Franco MD HEMATOLOGY ORDERAB LES [facility] [place] [address] * (ABNORMAL) Hemogram (12/17/2021 10:39 AM EDT) White Blood Cell 6.4 4.0 - 9.5 x10(3)/mc L [facility] Red Blood Cell 3.77(L) 4.00 - 5.21 x10(6)/mc L [facility] Hemoglobin 14.1 11.7 - 15.5 g/dL [facility] Hematocrit 40.1 35.7 - 45.8 % [facility] Mean Cell Volume 106.4(H) 82.6 - 94.[address] [facility] Mean Cell Hemoglobin 37.4(H) 27.1 - 32.[address] [facility] Mean Cell Hemoglobin Concentration 35.2(H) 31.7 - 35.0 g/dL [facility] Platelet 237 145 - 357 x10(3)/mc L [facility] RDW Standard Deviation 46.0 37.0 - 46.[address] [facility] RDW coefficient of variation 11.7 11.5 - 14.1 % [facility] Mean Platelet Volume 9.1 7.6 - 12.[address] [facility] NRBC% auto 0.0 % [facility] NRBC Absolute 0.000 0.000 - 0.000 x10(3)/mc L [facility] Blood 12/17/2021 10:3 9 AM EDT 12/17/2021 11:07 AM EDT Narrative Resulting Agency Comment Spec In Lab Mandeep Franco MD HEMATOLOGY ORDERAB LES Performing Organization Address [facility] de Phone Number [facility] [place] [address] * Prothrombin Time (12/17/2021 10:39 AM EDT) Prothrombin Time 11.6 9.4 - 12.[address] [facility] International Normalization Ratio 1.0 [facility] Comment: An INR <2.0 indicates [...] be appropriate depending on clinical circumstances. Blood 12/17/2021 10:3 9 AM EDT 12/17/2021 11:07 AM EDT Narrative Resulting Agency Comment Spec In Lab Mandeep Franco MD HEMATOLOGY ORDERAB LES Performing Organization Address [facility] Co de Phone Number [facility] [place] [address] * (ABNORMAL) BMP w/fasting Glucose (12/17/2021 10:39 AM EDT) Glucose Fasting 100(H) 65 - 99 mg/dL [facility] Comment: ?Fasting* Glucose Interpretive Criteria Normal ?65-99 mg/dL Impaired Fasting glucose ?100-125 mg/dL Consistent with Diabetes Mellitus ? >or= 126 mg/dL *Fasting is defined as no caloric intake for at least 8 hours In the absence of unequivocal hyperglycemia a plasma glucose value of >or= 126 mg/dL should be repeated on a subsequent day. Diagnosis and Classification of Diabetes Mellitus, Position Statement from the [place] [employer]. ??Diabetes Care, Volume 33, Supplement 1, Apr 2009 Blood Urea Nitrogen 9 8 - 18 mg/dL [facility] Creatinine 0.80 0.70 - 1.20 mg/dL [facility] Sodium 135 135 - 145 mmol/L [facility] Potassium 4.1 3.5 - 5.0 mmol/L [facility] Comment: Please note: ??Patients with WBC >100,000 may have falsely elevated Potassium levels. ??For accurate Potassium quantification in these patients send serum separator tube (gold top) for subsequent determinations. ??Contact the Clinical Chemistry Laboratory if there are any questions. Chloride 99 98 - 107 mmol/L [facility] Carbon Dioxide 24 22 - 31 mmol/L [facility] Anion Gap 12 5 - 15 mmol/L [facility] Calcium 10.1 8.5 - 10.5 mg/dL [facility] Est Glomerular Filtration Rate 84 >=60 mL/min/1. 73 m?? [facility] [...] and symptoms in addition to eGFR. Blood 12/17/2021 10:3 9 AM EDT 12/17/2021 11:07 AM EDT Narrative Resulting Agency Comment Spec In Lab Mandeep Franco MD CHEMISTRY ORDERABL ES [facility] [address] documented in this encounter Visit Diagnoses Diagnosis Aortic valve stenosis, etiology of cardiac valve disease unspecified Aortic valve stenosis, etiology of cardiac valve disease unspecified Paroxysmal atrial fibrillation Atrial fibrillation Paroxysmal atrial fibrillation Atrial fibrillation documented in this encounter Administered Medications Inactive Administered Medications - up to 3 most recent administrations Medication Order MAR Action Action Date Dose Rate Site fentaNYL (pf) (50 mcg/mL) multi-dose injection ONCE PRN, Starting on Fri12/17/21 at 1235, Until Fri12/17/21 at 1337, Cath (Intra-Procedure), Routine Given 12/17/2021 12:50 PM EDT 12.5 mcg Given 12/17/2021 12:35 PM EDT 25 mcg heparin (porcine) (1,000 units/mL) injection ONCE PRN, Starting on Fri12/17/21 at 1315, Until Fri12/17/21 at 1337, Cath (Intra-Procedure), Routine Given 12/17/2021 1:15 PM EDT 3,500 Units iohexoL (Omnipaque) (350 mg/mL) solution ONCE PRN, Starting on Fri12/17/21 at 1336, Until Fri12/17/21 at 1337, Cath (Intra-Procedure), Routine Given 12/17/2021 1:36 PM EDT 61 mLs midazolam (pf) (Versed) (1 mg/mL) multi-dose injection ONCE PRN, Starting on Fri12/17/21 at 1235, Until Fri12/17/21 at 1337, Cath (Intra-Procedure), Routine Given 12/17/2021 12:49 PM EDT 0.5 mg Given 12/17/2021 12:35 PM EDT 1 mg sodium chloride 0.9% infusion 150 mL/hr, Intravenous, CONTINUOUS, Starting on Fri12/17/21 at 1445, Until Fri12/17/21 at 1644, Recovery (Recovery-Hospital Unit) Rate/Dose Verify 12/17/2021 4:00 PM EDT 150 mL/hr 150 mL/hr Rate/Dose Verify 12/17/2021 3:33 PM EDT 150 mL/hr 150 mL/ hr New Bag 12/17/2021 2:20 PM EDT 150 mL/hr 150 mL/hr verapamiL (Isoptin) (2.5 mg/mL) injection ONCE PRN, Starting on Fri12/17/21 at 1255, Until Fri12/17/21 at 1337, Administer over 2 Minutes, Cath (Intra-Procedure) Given 12/17/2021 12:55 PM EDT 2.5 mg documented in this encounter Active and Recently Administered Medications Times are shown in EDT. Continuous Medication Order 12/15/2021 12/16/2021 12/17/2021 sodium chloride 0.9% infusion 150 mL/hr, Intravenous, CONTINUOUS, Starting on Fri12/17/21 at 1445, Until Fri12/17/21 at 1644, Recovery (Recovery-Hospital Unit) 1420 (New Bag - Prov ider: Jody Jay RN)1533 (Rate/Dose Verify - Provider: Harper Rodriguez RN)1600 (Rate/Dose Verify - Provider: Harper Rodriguez RN) PRN Medication Order 12/15/2021 12/16/2021 12/17/2021 fentaNYL (pf) (50 mcg/mL) multi-dose injection (CANCELED) ONCE PRN, Starting on Fri12/17/21 at 1235, Until Fri12/17/21 at 1337, Cath (Intra-Procedure), Routine 1235 (Given - Provid er: Jeri De Paz RN)1250 (Given - Provider: Jeri De Paz RN) heparin (porcine) (1,000 units/mL) injection (CANCELED) ONCE PRN, Starting on Fri12/17/21 at 1315, Until Fri12/17/21 at 1337, Cath (Intra-Procedure), Routine 1315 (Given - Provid er: Jeri De Paz RN) iohexoL (Omnipaque) (350 mg/mL) solution (CANCELED) ONCE PRN, Starting on Fri12/17/21 at 1336, Until Fri12/17/21 at 1337, Cath (Intra-Procedure), Routine 1336 (Given - Provid er: Cristóbal Cuevas MD) midazolam (pf) (Versed) (1 mg/mL) multi-dose injection (CANCELED) ONCE PRN, Starting on Fri12/17/21 at 1235, Until Fri12/17/21 at 1337, Cath (Intra-Procedure), Routine 1235 (Given - Provid er: Jeri De Paz RN)1249 (Given - Provider: Jeri De Paz RN) verapamiL (Isoptin) (2.5 mg/mL) injection (CANCELED) ONCE PRN, Starting on Fri12/17/21 at 1255, Until Fri12/17/21 at 1337, Administer over 2 Minutes, Cath (Intra-Procedure) 1255 (Given - Provid er: Cristóbal Cuevas MD) documented in this encounter Care Teams Borematic Operator Relationship Specialty Start Date End Date Evelyne Hunt, NURSING EXECUTIVE [address] [place] [address] PCP - General Internal Medicine 09/23/17 documented as of this encounter
--- OUTSIDE RECORDS SUMMARY | 2023-12-01 02:12 | XMS_ITS | Encounter Summary ---
Author Organization [facility] Address [facility] [place] [address] Care Team Providers Care Surface Plate Inspector Name Role Phone Kiki Huntyce Dat STEVEN Primary Care Provider [phone] Encounter Details Date Type Department Care Team (Late st Contact Info) Description 10/24/2021 10:15 AM EDT Office Visit Dermatology at [facility] [address] [place] [address] Mitzi Benton MD [facility] [address] [place] [address] Vitiligo; Irritant contact dermatitis, unspecified trigger; SK (seborrheic keratosis) Social History Tobacco Use Types Packs/Day Years [...] Progress Notes * Mitzi Fitzgerald MD - 10/24/2021 10:15 AM EDT Images from the original note were not included. DEPARTMENT OF DERMATOLOGY Medical Dermatology Clinic Provider: Mitzi Fitzgerald MD Patient's preferred name Ivana Preferred contact method for results [x]??Phone [x]??myD-H []??Letter Detailed phone message OK? Yes Are there [...] AKs Yes, cryotherapy Other relevant past medical history?? 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 Pre-Procedure Questions Details Allergy to lidocaine, epinephrine, Dermabond, chlorhexidine, or adhesives No Bleeding disorder or blood thinners No Pacemaker, defibrillator, deep brain stimulator, cochlear implant No History of Present Illness: Gabi Luna is a 61 y.o. Patient returns to clinic today for the following: - Spot on right forehead that is fairly new but not bothersome. - Patient does PDT on Friday and Fridays. She has done this [address] Erwin and is beginning to noticing re pigmentation. - With this regiment, patient has noticed results of improvement of skin of forehead and hands, however around the mouth. - Rash on inner thighs and inner arms that is mildly itchy. She has applied Protopic ointment a couple of times. Worse at night. Last visit at Dermatology: 09/12/2021 Last visit with this provider: 09/12/2021 Medications: Reviewed in eD-H Allergies: Reviewed in eD-H Skin Examination: Focused skin examination of the legs and hands was normal with the exception of the findings below. Assessment/Plan: # Vitiligo, improved - depigmented patches with perifollicular repigmentation on the dorsal hands greater than face (Figure 1-3). - Continue phototherapy. - Continue Rx: Protopic 0.1% ointment: Use twice daily and alternate with clobetasol except on face. - Recommended patient avoid trauma to the affected area as this can increase the occurrence of vitiligo. #. Contact Dermatitis vs. Miliaria rubra- Faint pink macules ill-defined on inner left calf. Pt states it is improved today. Not really consistent with reaction to Zejula as it doesn't occur every day. - Discussed skin findings and differential diagnosis with patient. - Continue Rx: Protopic: Apply topically nightly. - Continue OTC Benadryl as needed nightly. Discussed OTC Zyrtec for daytime use. #. Seborrheic Keratosis - Stuck on, waxy papule on the right upper forehead. - Discussed benign nature of lesions and provided reassurance. No treatment necessary at this time. ?? Figure 1 Figure 2 Figure 3 Photo(s) taken and charted with patient's verbal consent. Other: ??? N/A RTC: December 2021 for FSE [x]Note routed to construction secretary []Recall placed in scheduling system []Appointment scheduled at checkout Scribe attestation: Cee Abel and KHOA Thomson have performed the documentation for this encounter in the presence of and acting as a scribe for Mitzi Fitzgerald MD. I performed the above scribed service and agree with the accuracy of the documentation in this encounter. Reviewed and signed by: Mitzi Fitzgerald MD Dermatology [facility] documented in this encounter Plan of Treatment Upcoming Encounters Date Type Department Care Team (Latest Contact Info) Description 12/25/2023 9:[address] [place] [address] Xavier Malhotra MD [facility] [place] [address] 12/29/2023 Hospital Encounter [place] [address] Xavier Malhotra MD [facility] [place] [address] Paroxysmal atrial fibrillation 12/29/2023 7:30 AM EDT - 12/29/2023 12:00 PM EDT Surgery [place] [address] Xavier Malhotra MD [facility] [place] [address] ELECTROPHYSIOLOGY PROCEDURE 01/14/2024 10:40 AM EDT Office Visit Cardiology at [address] [phone] Carmen Castaneda PA [facility] [place] [address] Scheduled Procedures Name Priority Associated Diagnoses Date/Ti [...] of this encounter Visit Diagnoses Diagnosis Vitiligo Irritant contact dermatitis, unspecified trigger SK (seborrheic keratosis) Other seborrheic keratosis Paroxysmal atrial fibrillation Atrial fibrillation Paroxysmal atrial fibrillation Atrial fibrillation documented in this encounter Care Teams Surface Plate Inspector Relationship Specialty Start Date End Date Evelyne Hunt APRN [address] [place] [address] PCP - General Internal Medicine 09/23/17 documented as of this encounter
--- OUTSIDE RECORDS SUMMARY | 2023-12-01 02:12 | XMS_ITS | Encounter Summary ---
Author Organization [facility] Address [facility] Bert [address] [place] [id number] Care Team Providers Care Shaft Tender Name Role Phone Evelyne Hunt APRN Primary Care Provider [phone] Reason for Visit * Reason Comments Skin Check * Consultation (Routine) - Closed Specialty Diagnoses / Procedures Referred By Marcel edwards Referred To Contact Dermatology Diagnoses Vitiligo Mitzi Benton MD [facility] [address] [place] [address] Haresh Erwin MD [address] [place] [address], [facility] [place] [address] Referral ID Status Reason Start Date Expiration Date V isits Requested Visits Authorized [id number] Closed Consult, Test & Treat 08/20/2021 08/20/2022 1 1 Encounter Details Date Type Department Care Team (Late st Contact Info) Description 09/20/2021 4:00 PM EDT Office Visit Dermatology at [address] [phone] Haresh Erwin MD [address] [place] [address], [facility] [place] [address] Vitiligo Social History Tobacco Use Types Packs/Day [...] Progress Notes * Haresh Erwin MD - 09/20/2021 4:00 PM EDT Images from the original note were not included. Problem: 1. Vitiligo 2. Recent history of ovarian cancer Ivana is a 60-year-old woman who for the last 2 months has been noticing worsening vitiligo particularly of the dorsal hands but also she states in the perioral facial localization over both shins. She was seen at [facility] dermatology on a number of occasions and treated with topicals including clobetasol cream, triamcinolone, Protopic and desonide without significant benefit. She then was given oral dexamethasone to take but could not tolerate this medication. She states that she felt anxious and irritated and experienced palpitations/ racing heart while on it. The option of narrowband UVB was discussed with her and, as she lives in [place], it was suggested that she consider narrowband UVB at [facility] in [place]. She sees me for access to this service. She recently spent some time in [facility] and has a moderate foster. She tends to foster relatively well withoutburning easily. Physical examination reveals a pleasant 60-year-old woman who has hypopigmentation of the dorsal hands bilaterally sparing most of the forearms and arms but involving again the mid anterior shins. She does not have significant involvement today in the perioral facial localization unfortunately. I do not see any involvement on her back she denies any involvement on her abdomen. The total loss of pigment bilateral nature of the pigmentary loss and disease progression is consistent with vitiligo Assessment plan: Vitiligo 1. Discussed diagnosis of vitiligo. 2. Discussed poorly understood triggers for this disease 3. Discussed the good success rate that can be experienced with an narrowband UVB phototherapy, butthat it is a slow process requiring up to 72-75 treatments, given twice weekly, to achieve maximal results. 4. We will begin treatments Tuesdays and Fridays. Orders will be written for day surgery and NVR H. 5. Patient is not available on as she cares for her grandson all day on that day. 6. Return to clinic here in 3 months for repeat check. Appointment will be on December 21, 2021 CC: TENISHA Patel MD documented in this encounter Plan of Treatment Upcoming Encounters Date Type Department Care Team (Latest Contact Info) Description 12/25/2023 9:[address] [place] [address] Xavier Malhotra MD [facility] [place] [address] 12/29/2023 Hospital Encounter [place] [address] Xavier Malhotra MD [facility] [address] [place] [address] Paroxysmal atrial fibrillation 12/29/2023 7:30 AM EDT - 12/29/2023 12:00 PM EDT Surgery Electrophysiology Lab at [address] Xavier Malhotra MD [facility] [place] [address] ELECTROPHYSIOLOGY PROCEDURE 01/14/2024 10:40 AM EDT Office [place] [address] Carmen Castaneda PA [facility] [place] [address] Scheduled Procedures Name Priority Associated Diagnoses Date/Ti [...] fibrillation documented in this encounter Care Teams Shaft Tender Relationship Specialty Start Date End Date Evelyne Hunt APRN [address] [place] [place] [address] PCP - General Internal Medicine 09/23/17 documented as of this encounter
--- OUTSIDE RECORDS SUMMARY | 2023-12-01 02:12 | XMS_ITS | Encounter Summary ---
Author Organization [facility] [place] [address] Care Team Providers Care Finance Specialist Name Role Phone Evelyne Hunt Dat STEVEN Primary Care Provider [phone] Reason for Visit * Reason Comments Medication Refill Encounter Details Date Type Department Care Team (Late st Contact Info) Description 12/11/2021 Specialty Pharmacy [place] [phone] Gus Call, [facility] Social History Tobacco Use Types Packs/Day [...] this encounter Progress Notes * Gus Call [facility] - 12/11/2021 11:02 AM EDT Clinical Management Plan: Refill Specialty Pharmacy Consultation; Gus Call [facility] Comprehensive Medication Management (CMM) Gabi Benitoyvonne Ms. Gabi Luna is a 61 y.o. (1960) female who was contacted in regard to a specialty medication refill reminder. Contact made with patient regarding ZEJULA. A review of [...] Allergen Reactions ??? Paroxetine ??? Penicillins Anaphylaxis ??? Sertraline ??? Venlafaxine ??? Taxol [Paclitaxel] Palpitations and Other (See Comments) 17 mls into Taxol C/O of palpitations/lower back pain.Drug stopped. Benadryl/Pepcid/Ativan given. Was able to start drug at half rate when symptoms subsided and increased rate every 30-60 mins. Was able to complete drug. Medication Reconciliation Discrepancies (compared to [facility] med list) No Specialty Pharmacy Refill Questionnaire Refill Questionnaire 12/11/2021 What is the name of the specialty medication you are refilling? ZEJULA Are you taking any new medications? No Please explain - Any new medical condition? No Any new allergies? No Any new side effects that are bothersome? No What date will you need this fill by? 12/21/2021 Adherence: Any missed doses? No Patient understands no changes to current drug regimen were made. Gus Call RPH 12/11/21 11:04 AM documented in this encounter Plan of Treatment Upcoming Encounters Date Type Department Care Team (Latest Contact Info) Description 12/25/2023 9:[address] [place] [address] Xavier Malhotra MD [facility] [place] [address] 12/29/2023 Hospital Encounter Electrophys[place] [address] Xavier Malhotra MD [facility] [place] [place] [address] Paroxysmal atrial fibrillation 12/29/2023 7:30 AM EDT - 12/29/2023 12:00 PM EDT Surgery Electrophys[place] [phone] Xavier Malhotra MD [facility] [place] [address] ELECTROPHYSIOLOGY PROCEDURE 01/14/2024 10:40 AM EDT Office Visit Cardiology at [address] [phone] Carmen Castaneda PA [facility] [place] [address] Scheduled Procedures Name Priority Associated Diagnoses Date/Ti mi TRANSESOPHAGEAL ECHO DURING CATH/EP PROCEDURE Paroxysmal atrial [...] on filedocumented in this encounter Care Teams Finance Specialist Relationship Specialty Start Date End Date Evelyne Hunt APRN [address] [place] [address] PCP - General Internal Medicine 09/23/17 documented as of this encounter
--- OUTSIDE RECORDS SUMMARY | 2023-12-01 02:12 | XMS_ITS | Encounter Summary ---
Author Organization [facility] Address [facility] [place] [address] Care Team Providers Care Cloth Opener Hand Name Role Phone Kiki Huntyce Dat STEVEN Primary Care Provider [phone] Encounter Details Date Type Department Care Team (Latest Contact Info) Description 12/12/2021 3:20 PM EDT TH Visit (TeleHealth) [place] [phone] Pasquale Mederos MD [facility] [place] [address] Ovarian cancer, unspecified laterality; Nonrheumatic aortic valve stenosis; Encounter for chemotherapy management Social History Tobacco Use Types Packs/Day Years [...] as of this encounter Progress Notes * Pasquale Mederos MD - 12/12/2021 3:20 PM EDT Gynecologic Oncology-Telehealth Encounter. [phone] on the video ?? Reason/purpose for telehealth encounter: ovarian cancer, niraparib followup Patient's physical location at the time of this telehealth/telephone visit: Home, in [place]. ?? 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 07/20/19 ??TAHBSO/omentectomy/rectosigmoid resection/PPALND. R0. #1 Taxol/carbo/Avastin. Tumor Testing: The CancerNext analysis of??Ivana's blood showed no germline (heritable) mutation was detected. Thismeans that??Ivana??does not carry a mutation in the genes detectable by this test. The genes included on this panel are APC, KIRSTIN, BARD1, BMPR1A, BRCA1, BRCA2, BRIP1, CDH1, CDK4, CDKN2A, CHEK2, DICER1,HOXB13, MLH1, MRE11A, MSH2, MSH6, MUTYH, NBN, NF1, PALB2, ??PMS2, POLD1, POLE, PTEN, RAD50, RAD51C,RAD51D, SMAD4, SMARCA4, STK11, TP53, (sequencing and deletion/duplication); EPCAM andGREM1 (deletion/duplication only). ? The TumorNext-HRD analysis showed no mutation in??Ivana's tumor tissue. ?The genes included on this panel are KIRSTIN, BARD1, BRIP1, CHEK2, MRE11A, NBN, PALB2, RAD51C, RAD51D, BRCA1, BRCA2 (sequencing only). ? Summary of conversation, decision making, and plan: ovarian cancer on maintenance niraparib She continues on niraparib at 100 mg each night. She has been feeling well from a cancer standpoint. She had what was supposed to be a routine f/u ECHO and was found to have severe aortic stenosis and SVT. She will be having a cardiac cath soon in planning for an open aortic valve replacement. She has been fatigued and easily winded lately and this has been a big difference over the last 6 months. This is especially noticed with stairs and mowing the lawn. She also has a new diagnosis of vitiligo and is doing phototherapy for it. She is not on steroids. She has no vaginal bleeding or blood in the stool. She is still tolerating the zejula well. She is currently on an antibiotic for an UTI. latest CA125 = 8 on 10/29/21. Remainder of labs are reviewed and are normal. Items to Complete - (To-Do List): Gabi Luna is a 61 y.o. 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 1. Tolerating PARP well. Continue at 100 mg at night. 2. Should be no need to pause zejula surrounding surgery though holding it for a week or 2 should not be of significant clinical issue if it would make her cardiothoracic surgeons more comfortable. Her CA125 may become falsely elevated in the postop setting. 3. followup via telehealth in 3 months or sooner for concerns. 4. She is aware to try to avoid systemic steroid be given her cancer diagnosis. She is pleased withhow her vitiligo is currently responding to phototherapy. PASQUALE MEDEROS MD documented in this encounter Plan of Treatment Upcoming Encounters Date Type Department Care Team (Latest Contact Info) Description 12/25/2023 9:[address] [place] [phone] Xavier Malhotra MD [facility] [place] [address] 12/29/2023 Hospital Encounter [place] [phone] Xavier Malhotra MD [facility] [place] [address] Paroxysmal atrial fibrillation 12/29/2023 7:30 AM EDT - 12/29/2023 12:00 PM EDT Surgery [place] [phone] Xavier Malhotra MD [facility] [place] [address] ELECTROPHYSIOLOGY PROCEDURE 01/14/2024 10:40 AM EDT Office Visit Cardiology at [address] [phone] Carmen Castaneda PA [facility] [place] [address] Scheduled Procedures Name Priority Associated Diagnoses Date/Ti me TRANSESOPHAGEAL ECHO DURING CATH/EP PROCEDURE Paroxysmal atrial fibrillation 12/29/2023 7:30 AM EDT documented as of this encounter Goals Goal Patient Goal Type Associated Problems Recent Progress Patient-Stated? Author Home Medication Compliance and Understanding Patient Facing Action Plan No Lani Vargas, [facility] Note: Maintain control of disease for as long as possible as assessed by tumor marker levels and scans in clinic every 3 to 6 months documented as of this encounter Visit Diagnoses Diagnosis Ovarian cancer, unspecified laterality Nonrheumatic aortic valve stenosis Aortic valve disorders Encounter for chemotherapy management Paroxysmal atrial fibrillation Atrial fibrillation Paroxysmal atrial fibrillation Atrial fibrillation documented in this encounter Care Teams Cloth Opener Hand Relationship Specialty Start Date End Date Evelyne Hunt APRN [address] [place] [address] PCP - General Internal Medicine 09/23/17 documented as of this encounter
--- OUTSIDE RECORDS SUMMARY | 2023-12-01 02:12 | XMS_ITS | Encounter Summary ---
Author Organization [facility] Address [facility] Bert cassidy [place] [id number] Care Team Providers Care Drug Worker Name Role Phone Evelyne Hunt Dat STEVEN Primary Care Provider [phone] Reason for Referral * Diagnostic Test (Routine) - Closed Specialty Diagnoses / Procedures Referred By Contac t Referred To Contact Cardiology Diagnoses Aortic valve stenosis, etiology of cardiac valve disease unspecified Procedures Echocardiogram Transthoracic Jourdan Beyer PA [facility] [place] [address] [facility] [place] [address] Referral ID Status Reason Start Date Expiration Date V isits Requested Visits Authorized [id number] Closed Specialty Service Requested 01/09/2022 01/09/2023 1 1 Encounter Details Date Type Department Care Team (Late st Contact Info) Description 01/09/2022 Orders [place] [address] Estrella Felder MD [facility] [place] [address] Aortic valve stenosis, etiology of cardiac valve disease unspecified (Primary Dx) Social History Tobacco Use Types Packs/Day Years [...] 9:[address] Scan at [address] Xavier Malhotra MD [facility] [place] [address] 12/29/2023 Hospital Encounter Electrophysiology Lab at [address] Xavier Malhotra MD [facility] [place] [address] Paroxysmal atrial fibrillation 12/29/2023 7:30 AM EDT - 12/29/2023 12:00 PM EDT Surgery Electrophysiology Lab at [place] [address] Xavier Malhotra MD [facility] [place] [address] ELECTROPHYSIOLOGY PROCEDURE 01/14/2024 10:40 AM EDT Office Visit Cardiology at [address] Carmen Castaneda PA [facility] [place] [address] Scheduled Procedures Name Priority Associated Diagnoses Date/Ti [...] documented as of this encounter Results * ECHO COMPLETE (03/08/2022 11:59 AM EST) Anatomical Region Laterality Modality Cardiac Other 03/08/2022 11:0 4 AM EST Narrative 03/08/2022 1:03 PM EST ? Echocardiogram Report Name: GABI WALLER ?Study Date: 03/08/2022 11:04 AMBP: 121/72 mmHg ? Patient Location: 3T : 1960 ? Height: 166 cm ? Account: [id number] Age: 61 yrs ? Weight: 59 kg Gender: Female ?BSA: 1.7 m2 Ordering Physician: ESTRELLA FELDER Referring Physician: JOURDAN BEYER Performed By: Praveena Alvarez RDCS Reason For Study: Aortic valve stenosis Exam Location: [facility]. Interpretation Summary Left ventricle is of normal [...] index is 0.65. No significant regurgitation. Procedure Complete-[id number]. Satisfactory quality. Left Ventricle There is no [...] Location: : 1960 Height: 166 cm Account: [id number] Age: 61 yrs Weight: 59 kg Gender: Female BSA: 1.7 m2 Ordering Physician: ESTRELLA FELDER Referring Physician: JOURDAN BEYER Performed By: Praveena Alvarez RDCS Reason For Study: Aortic valve stenosis Exam Location: [facility]. Interpretation Summary Left ventricle is of normal [...] index is 0.65. No significant regurgitation. Procedure Complete-[id number]. Satisfactory quality. Left Ventricle There is no [...] Aneurysmal 15-16diffuse Estrella Felder MD ECHO ORDERABLES * XR Chest PA & Lateral (Generic) [...] who have questions please contact the health career services coordinator that requested your imaging first. ? Narrative [...] with the findings, Tammi Rea MD at 210:39 AM Thank you for letting us participate in the care of this patient. If youare a health care provider and have any questions regarding this report,please contact the number below. For patients who have questions please contactthe health career services coordinator that requested your imaging first. Estrella Felder MD IMG DX ORDERABLES * EKG 12 Lead (01/29/2022 7:10 AM EDT) Ventricular rate 62 BPM MUSE SYSTEM Atrial Rate 62 BPM MUSE SYSTEM P-R Interval 144 ms MUSE SYSTEM QRS Duration 92 ms MUSE SYSTEM Q-T Interval 452 ms MUSE SYSTEM QTC Calculated (Bezet) 458 ms MUSE SYSTEM Calculated P [place] 72 degrees MUSE SYSTEM Calculated R [place] 51 degrees MUSE SYSTEM Calculated T [place] 51 degrees MUSE SYSTEM INTERPRETATION Normal sinus rhythm Normal ECG When compared with ECG of 17-DEC-2021 11:53, Nonspecific ST abnormality no longer present Confirmed by fellow MD Srikanth, Jourdan ([id number]) on 01/29/2022 8:59:46 AM Confirmed by MD WILBERT, MARCELL ([id number]) on 01/29/2022 1:42:36 PM MUSE SYSTEM 01/29/2022 7:10 AM EDT 01/29/2022 1:42 PM EDT Estrella Felder MD ECG ORDERABLES MUSE SYSTEM documented in this encounter Visit Diagnoses Diagnosis Aortic valve stenosis, etiology of cardiac valve disease unspecified- Primary Aortic valve stenosis, etiology of cardiac valve disease unspecified Aortic valve stenosis, etiology of cardiac valve disease unspecified Paroxysmal atrial fibrillation Atrial fibrillation Paroxysmal atrial fibrillation Atrial fibrillation documented in this encounter Care Teams Drug Worker Relationship Specialty Start Date End Date Evelyne Hunt APRN [address] [place] [address] PCP - General Internal Medicine 09/23/17 documented as of this encounter
--- OUTSIDE RECORDS SUMMARY | 2023-12-01 02:12 | XMS_ITS | Encounter Summary ---
Author Organization [facility] Address [facility] [place] [address] Care Team Providers Care Leasing Assistant Name Role Phone MarileeEvelyne APRN Primary Care Provider [phone] Reason for Referral * Diagnostic Test (Routine) - Closed Specialty Diagnoses / Procedures Referred By Contac t Referred To Contact Cardiology Diagnoses Aortic valve stenosis, etiology of cardiac valve disease unspecified Procedures Echocardiogram Transthoracic([facility]) Camelia Austin MD [facility] [place] [address] [facility] [place] [address] Referral ID Status Reason Start Date Expiration Date V isits Requested Visits Authorized [id number] Closed Specialty Service Requested 04/27/2021 04/27/2022 1 1 Reason for Visit * Diagnostic Test (Routine) - Closed Specialty Diagnoses / Procedures Referred By Contac t Referred To Contact Cardiology Diagnoses Aortic valve stenosis, etiology of cardiac valve disease unspecified Procedures Echocardiogram Transthoracic([facility] or [facility]) Camelia Austin MD [facility] [place] [address] [facility] [place] [address] Referral ID Status Reason Start Date Expiration Date V isits Requested Visits Authorized [id number] Closed Specialty Service Requested 04/27/2021 04/27/2022 1 1 Encounter Details Date Type Department Care Team (Latest Contact Info) Description 11/29/2021 8:35 AM EDT - 11/29/2021 11:59 PM EDT Hospital Encounter Non-Invasive Cardiology Lab [place] [place] [address] Camelia Austin MD [facility] [place] [address] Aortic valve stenosis, etiology of cardiac valve [...] 360 mg by mouth daily. 08/22/2021 02/06/2022 desonide (DESOWEN) 0.05 % OintmentIndications:V itiligo Apply topically 2 times daily. Use for 3-4 days, then switch to protopic, and continue alternating in that manner. 60 g 2 09/12/2021 12/14/2021 valACYclovir (Valtrex) 1 gram Tablet Take 2g twice daily for 1 day at first sign of infection. 8 tablet 3 08/07/2021 12/14/2021 tacrolimus (Protopic) 0.1 % OintmentIndications:V itiligo Apply topically 2 times daily. 100 g 3 07/20/2021 12/14/2021 dexamethasone (Decadron) 4 mg TabletIndications:Vit iligo Take one tablet each Friday and friday 24 tablet 07/20/2021 12/14/2021 metoprolol succinate XL (Toprol-XL) 25 mg Tablet Sustained Release 24 hrIndications:Hyperte nsion, unspecified type,SVT (supraventricular tachycardia) Take 1 tablet by mouth daily. 90 tablet 2 06/18/2021 02/06/2022 clobetasoL (Temovate) 0.05 % Ointment Apply to the affected area daily at night for 6 to 12 weeks and then one to three times per week for maintenance. Apply sparingly (a dot 3 mm wide) in a thin film over the affected area. 15 g 05/14/2021 12/14/2021 niraparib (Zejula) 100 mg capsuleIndications:ep ithelial ovarian cancer Take 1 capsule (100 mg) by mouth daily. 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 12/14/2021 ibuprofen (Advil;Motrin) 800 mg Tablet Take 800 mg by mouth as needed. 12/14/2021 hydroCHLOROthiazide (Hydrodiuril) 25 mg Tablet Take 25 mg by mouth. HYDROcodone-acetamino phen ([place]) 5-325 mg Tablet Take 325 mg by mouth as needed. 12/14/2021 ergocalciferol, vitamin D2, (VITAMIN D ORAL) Take by mouth daily. documented as of this encounter Plan of Treatment Upcoming Encounters Date Type Department Care Team (Latest Contact Info) Description 12/25/2023 9:[address] [place] [address] Xavier Malhotra MD [facility] [place] [address] 12/29/2023 Hospital Encounter Electrophysiology Lab at [place] [phone] Xavier Malhotra MD [facility] [place] [address] Paroxysmal atrial fibrillation 12/29/2023 7:30 AM EDT - 12/29/2023 12:00 PM EDT Surgery Electrophysiology [place] [phone] Xavier Malhotra MD [facility] [place] [address] ELECTROPHYSIOLOGY PROCEDURE 01/14/2024 10:40 AM EDT Office Visit Cardiology at [address] [phone] Carmen Castaneda PA [facility] [place] [address] Scheduled Procedures Name Priority Associated Diagnoses Date/Ti me TRANSESOPHAGEAL ECHO DURING CATH/EP PROCEDURE Paroxysmal atrial fibrillation 12/29/2023 7:30 AM EDT documented as of this encounter Goals Goal Patient Goal Type Associated Problems Recent Progress Patient-Stated? Author Home Medication Compliance and Understanding Patient Facing Action Plan Lani Love, [facility] Note: Maintain control of disease for as long as possible as assessed by tumor marker levels and scans in clinic every 3 to 6 months documented as of this encounter Procedures Procedure Name Priority Date/Time Associated Diagnosis Comments ECHO COMPLETE Routine 11/29/2021 10:18 AM EDT Aortic valve stenosis, etiology of cardiac valve disease unspecified documented in this encounter Results * ECHO COMPLETE (11/29/2021 10:18 AM EDT) EF 74 [facility] Anatomical Region Laterality Modality Cardiac Other 11/29/2021 8:59 AM EDT Narrative 11/29/2021 10:43 AM EDT ? Version 2 ? Echocardiogram Report Name: GABI WALLER ?Study Date: 11/29/2021 08:59 AMBP: 131/81 mmHg ? Patient Location: 4A 0000 : 1960 ? Height: 166 cm ? Account: [id number] Age: 61 yrs ? Weight: 61 kg Gender: Female ?BSA: 1.7 m2 Ordering Physician: CAMELIA AUSTIN Referring Physician: CAMELIA AUSTIN Performed By: YAS Rodrigez Reason For Study: Aortic stenosis Exam Location: [facility]. Interpretation Summary 1. The left ventricle is [...] aortic valve disease has progressed to severe. Procedure Complete-[id number]. Satisfactory quality. There is normal sinus rhythm. Left Ventricle Left ventricle is of normal size. The estimated peak gradient across the LV outflow tract is 5 mmHg. The estimated peak gradient across the LV outflow tract is 34 mmHg with Valsalva. There is no ventricular septal defect. Moderately increased thickness of the basal septum with JERRY. Left ventricular systolic function is normal. The left ventricular ejection fraction is 74% by Arndt's biplane. There are no segmental wall motion abnormalities. Right Ventricle The right ventricle is of normal size. Right ventricular systolic function is normal. Left Atrium The left atrium is normal. There is no evidence for a patent foramen ovale. Right Atrium The right atrium is normal. Aortic Valve The aortic valve is not well visualized. The aortic valve may be bicuspid. The aortic valve is moderately calcified. The aortic valve is moderately thickened. There is moderate to severe aortic stenosis. The peak instantaneous gradient across the aortic valve is 83 mmHg. The mean gradient across the aortic valve is 49 mmHg. The aortic valve area calculated using the continuity equation is 0.74 cm2. The dimensionless index is 0.28. The stroke volume index is 44.2 mL/m2. There is moderate aortic regurgitation. Mitral Valve The mitral valve is structurally and functionally normal. There is JERRY of the mitral valve with mild obstruction upon Valsalva. There is trace mitral regurgitation. Tricuspid Valve The tricuspid valve is structurally normal. There is trace tricuspid regurgitation. Pulmonic Valve The pulmonic valve is not well visualized. Great Arteries The aortic root is of normal size. No abnormalities are identified. The ascending aorta is mildly dilated. The maximum diameter of the proximal ascending aorta is 3.8 cm. Venous Inferior vena cava is normal in size. Inferior vena cava collapse greater than 50% with respiration. Pericardium/Pleural The pericardium appears normal. There is no pericardial effusion. Hemodynamics The peak right ventricular systolic pressure is 25 mmHg. The estimated right atrial pressure is 3mmHg. Left ventricular filling pressure is normal. Ejection Fraction ?2D Measurements ? Volumes EF(MOD-bp): 74.3 % ?IVSd: 1.6 cm ? LAV(MOD- bp) Indexed: ?LVIDd: 3.5 cm ?LVIDs: 2.1 cm ?34.6 ml/m2 ?LVPWd: 1.1 cm ?RA A4Cs_phl: 14.5 cm2 ? EDV (MOD-bp) Index: 41.5 ?LV mass(C)d: 168.7 grams ? ESV (MOD-bp) Index: 10.7 ?LV mass(C)dI: 100.2 grams/m2 ?? SV(LVOT): 74.4 ml ?Ao root diam: 2.9 cm ?Ao root diam index: 1.7 ?SI(LVOT): 44.2 ml/m2 ?asc Aorta Diam: 3.8 cm ?LVOT diam: 1.8 cm Doppler TR max kiko: 236.6 cm/sec RVSP(TR): 25.4 mmHg Ao V2 VTI: 100.9 cm Ao valve max: 83.3 mmHg Ao valve mean: 48.9 mmHg MV E max kiko: 63.2 cm/sec MV A max kiko: 67.2 cm/sec MV E/A: 0.94 Lat Peak E' Kiko: 8.1 cm/sec E/ e' (lat): 7.8 Med Peak E' Kiko: 6.5 cm/sec E/e' (med): 9.8 E/e' Average: 8.8 SUDHAKAR(I,D): 0.74 cm2 Dimensionless index Aov: 0.28 I ?WMSI = 1.00 ? % Normal = 100 ?Segments ??Size X - Cannot ?? 1 - Normal ?? 2 - ? 3 - Akinetic 4 - ?1-2 ? small Interpret ? Hypokinetic ?Dyskinetic ?? 3-5 ? moderate 5 - ? 6-14 ?large Aneurysmal ?15-16 ?? diffuse Procedure Note Emilee Munguia MD - 11/29/2021 Version 2 Echocardiogram Report Name: GABI WALLER Study Date: 208:59 AMBP: 131/81 mmHg Patient Location: [id number] : 1960 Height: 166 cm Account: [id number] Age: 61 yrs Weight: 61 kg Gender: Female BSA: 1.7 m2 Ordering Physician: CAMELIA AUSTIN Referring Physician: CAMELIA AUSTIN Performed By: YAS Rodrigez Reason For Study: Aortic stenosis Exam Location: [facility]. Interpretation Summary 1. The left ventricle is normal in chamber size with moderate basalseptal hypertrophy and mitral JERRY with evidence of flow acceleration and a mildinducible gradient (5mmHg at rest, 34mmHg with Valsalva). Global and segmental LVsystolic function is normal with LVEF of 74% by Arndt's biplane. 2. The right ventricle is normal in size and global systolic function.Estimated PASP is 25mmHg. 3. The aortic valve appears bicommissural with possible fusion of thenon- coronary and left coronary cusps. It is very thickened and calcified. There isevidence for severe aortic stenosis (SUDHAKAR 0.74cm2 by VTI continuity, jkpkkyotz21/49mmHg, DOI 0.28). There is probably also moderate eccentric regurgitation. 4. See remainder of report for additional findings. When compared to theprior study dated 02/01/2020, LVOT gradients appear decreased but the aorticvalve disease has progressed to severe. Procedure Complete-[id number]. Satisfactory quality. There is normal sinus rhythm. Left Ventricle Left ventricle is of normal size. The estimated peak gradient across theLV outflow tract is 5 mmHg. The estimated peak gradient across the LV outflowtract is 34 mmHg with Valsalva. There is no ventricular septal defect.Moderately increased thickness of the basal septum with JERRY. Left ventricularsystolic function is normal. The left ventricular ejection fraction is 74% bySimpson's biplane. There are no segmental wall motion abnormalities. Right Ventricle The right ventricle is of normal size. Right ventricular systolic functionis normal. Left Atrium The left atrium is normal. There is no evidence for a patent foramenovale. Right Atrium The right atrium is normal. Aortic Valve The aortic valve is not well visualized. The aortic valve may be bicuspid.The aortic valve is moderately calcified. The aortic valve is moderatelythickened. There is moderate to severe aortic stenosis. The peak instantaneousgradient across the aortic valve is 83 mmHg. The mean gradient across the aorticvalve is 49 mmHg. The aortic valve area calculated using the continuity equation is0.74 cm2. The dimensionless index is 0.28. The stroke volume index is 44.2mL/m2. There is moderate aortic regurgitation. Mitral Valve The mitral valve is structurally and functionally normal. There is JERRY ofthe mitral valve with mild obstruction upon Valsalva. There is trace mitral regurgitation. Tricuspid Valve The tricuspid valve is structurally normal. There is trace tricuspid regurgitation. Pulmonic Valve The pulmonic valve is not well visualized. Great Arteries The aortic root is of normal size. No abnormalities are identified. Theascending aorta is mildly dilated. The maximum diameter of the proximal ascendingaorta is 3.8 cm. Venous Inferior vena cava is normal in size. Inferior vena cava collapse greaterthan 50% with respiration. Pericardium/Pleural The pericardium appears normal. There is no pericardial effusion. Hemodynamics The peak right ventricular systolic pressure is 25 mmHg. The estimatedright atrial pressure is 3mmHg. Left ventricular filling pressure is normal. Ejection Fraction 2D Measurements Volumes EF(MOD-bp): 74.3 % IVSd: 1.6 cm LAV(MOD-bp)Indexed: LVIDd: 3.5 cm LVIDs: 2.1 cm 34.6 ml/m2 LVPWd: 1.1 cm RA A4Cs_phl: 14.5cm2 EDV (MOD-bp)Index: 41.5 LV mass(C)d: 168.7 grams ESV (MOD-bp)Index: 10.7 LV mass(C)dI: 100.2 grams/m2 SV(LVOT): 74.4ml Ao root diam: 2.9 cm Ao root diam index: 1.7 SI(LVOT): 44.2ml/m2 asc Aorta Diam: 3.8 cm LVOT diam: 1.8 cm Doppler TR max kiko: 236.6 cm/sec RVSP(TR): 25.4 mmHg Ao V2 VTI: 100.9 cm Ao valve max: 83.3 mmHg Ao valve mean: 48.9 mmHg MV E max kiko: 63.2 cm/sec MV A max kiko: 67.2 cm/sec MV E/A: 0.94 Lat Peak E' Kiko: 8.1 cm/sec E/ e' (lat): 7.8 Med Peak E' Kiko: 6.5 cm/sec E/e' (med): 9.8 E/e' Average: 8.8 SUDHAKAR(I,D): 0.74 cm2 Dimensionless index Aov: 0.28 I WMSI = 1.00 % Normal = 100 SegmentsSize X - Cannot 1 - Normal 2 - 3 - Akinetic 4 - 1-2small Interpret Hypokinetic Dyskinetic 3-5moderate 5 - 6-14large Aneurysmal 15-16diffuse Camelia Austin MD ECHO ORDERABLES documented in this encounter Visit Diagnoses Diagnosis Aortic valve stenosis, etiology of cardiac valve disease unspecified Paroxysmal atrial fibrillation Atrial fibrillation Paroxysmal atrial fibrillation Atrial fibrillation documented in this encounter Care Teams Leasing Assistant Relationship Specialty Start Date End Date Evelyne Hunt, [employer] FR[employer]TER [address] [place] [address] PCP - General Internal Medicine 09/23/17 documented as of this encounter
--- OUTSIDE RECORDS SUMMARY | 2023-12-01 02:12 | XMS_ITS | Encounter Summary ---
Author Organization [facility] [place] [address] Care Team Providers Care Time Study Analyst Name Role Phone MarileeEvelyne APRN Primary Care Provider [phone] Reason for Visit * Reason Comments Medication Management Encounter Details Date Type Department Care Team (Late st Contact Info) Description 08/14/2021 Specialty [place] [phone] Lani Vargas [facility] Social History Tobacco Use Types Packs/Day Years [...] of this encounter Progress Notes * Lani Coats RPH - 08/14/2021 8:40 AM EDT Specialty Pharmacy Consultation; Lani Coats RPH Comprehensive Medication Management (CMM): Specialty Consult, Opt Out Gabi Luna Diagnosis: Ovarian cancer Therapy Start Date: 01/06/2020 Contact in person or via telephone: phone Ms. Gabi Luna is a 60 y.o. 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 Administration, allergies, dosage, safe storage reviewed. The pharmacy's contact information and operating hours with on-call services were given to the patient both verbally and in writing. Economic Assessment: Patient is agreeable to medication copay: Yes Copay Amount: $0 Day Supply: 30 Date Needed: 08/20/21 Therapy Assessment: Appropriate Therapy: Yes Current Medication Dosing/Route/Frequency: Zejula 100mg PO QD Additional equipment/supplies required: no Care Plan Reviewed and Approved by Pharmacist : Yes Problem List: Patient Active Problem List Diagnosis Code ??? Hypothyroidism E03.9 ??? SVT (supraventricular tachycardia) I47.1 ??? Bicuspid aortic valve Q23.1 ??? Chest pain R07.9 ??? Aortic valve stenosis I35.0 ??? HTN (hypertension) I10 ??? 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 BRCA negative Z13.71 Medications Reviewed: Yes Medications reconciled: No Allergies Reviewed:Yes Allergies reconciled: No Pharmacist follow-up needed: Yes Informed patient of specialty pharmacy services: Yes Welcome Packet and Rights and Responsibilities: Patient [...] for provider review and follow up. Lani Coats RPH 08/21/21 12:33 PM documented in this encounter Plan of Treatment Upcoming Encounters Date Type Department Care Team (Latest Contact Info) Description 12/25/2023 9:[address] Scan at [place] [phone] Xavier Malhotra MD [facility] [place] [address] 12/29/2023 Hospital Encounter Electrophysiology Lab at [place] [phone] Xavier Malhotra MD [facility] [place] [address] Paroxysmal atrial fibrillation 12/29/2023 7:30 AM EDT - 12/29/2023 12:00 PM EDT Surgery Electrophysiology Lab at [address] Xavier Malhotra MD [facility] [place] [address] ELECTROPHYSIOLOGY PROCEDURE 01/14/2024 10:40 AM EDT Office Visit Cardiology at [place] [phone] Carmen Castaneda PA [facility] [place] [address] Scheduled Procedures Name Priority Associated Diagnoses Date/Ti me TRANSESOPHAGEAL ECHO DURING CATH/EP PROCEDURE Paroxysmal atrial fibrillation 12/29/2023 7:30 AM EDT documented as of this encounter Goals Goal Patient Goal Type Associated Problems Recent Progress Patient-Stated? Author DH Home Medication Compliance and Understanding Patient Facing Action Plan Lani Love RPH Note: Maintain control of disease for as long as possible as assessed by tumor marker levels and scans in clinic every 3 to 6 months documented as of this encounter Visit Diagnoses Not on filedocumented in this encounter Care Teams Time Study Analyst Relationship Specialty Start Date End Date Evelyne Hunt APRN [address] [place] [address] PCP - General Internal Medicine 09/23/17 documented as of this encounter
--- OUTSIDE RECORDS SUMMARY | 2023-12-01 02:12 | XMS_ITS | Encounter Summary ---
Author Organization [facility] [place] [address] Care Team Providers Care Basket Person Name Role Phone Evelyne Hunt TENISHA Primary Care Provider [phone] Encounter Details Date Type Department Care Team (Late st Contact Info) Description 08/14/2021 Telephone [place] [address] Radha Cain RN Social History Tobacco Use Types Packs/Day [...] Telephone Encounter - Radha Cain RN - 08/14/2021 11:02 AM EDT Nurse called patient and informed her of CA 125 = 8. Patient verbalized understanding and has no further questions or concerns at this time. documented in this encounter Plan of Treatment Upcoming Encounters Date Type Department Care Team (Latest Contact Info) Description 12/25/2023 9:[address] [place] [address] Xavier Malhotra MD [facility] [address] 12/29/2023 Hospital Encounter [place] [address] Xavier Malhotra MD [facility] [place] [address] Paroxysmal atrial fibrillation 12/29/2023 7:30 AM EDT - 12/29/2023 12:00 PM EDT Surgery [place] [phone] Xavier Malhotra MD [facility] [place] [address] ELECTROPHYSIOLOGY PROCEDURE 01/14/2024 10:40 AM EDT Office Visit Cardiology at [address] [phone] Carmen Castaneda PA [facility] [place] [address] Scheduled Procedures Name Priority Associated Diagnoses Date/Ti [...] on filedocumented in this encounter Care Teams Basket Person Relationship Specialty Start Date End Date Evelyne Hunt APRN [address] [place] [address] PCP - General Internal Medicine 09/23/17 documented as of this encounter
--- OUTSIDE RECORDS SUMMARY | 2023-12-01 02:12 | XMS_ITS | Encounter Summary ---
Author Organization [facility] [place] [address] Care Team Providers Care Wire Frame Lamp Shade Maker Name Role Phone Evelyne Hunt TENISHA Primary Care Provider [phone] Encounter Details Date Type Department Care Team (Late st Contact Info) Description 08/07/2021 Telephone Gynecology [place] [address] Radha Cain, RN Social History [...] Telephone Encounter - Radha Cain RN - 08/07/2021 8:41 AM EDT Nurse attempted to request lab results on patient, no answer. Left message on voicemail with phone and fax number. documented in this encounter Plan of Treatment Upcoming Encounters Date Type Department Care Team (Latest Contact Info) Description 12/25/2023 9:[address] [place] [address] Xavier Malhotra MD [facility] [address] 12/29/2023 Hospital Encounter Electrophysiology [place] [phone] Xavier Malhotra MD [facility] [place] [address] Paroxysmal atrial fibrillation 12/29/2023 7:30 AM EDT - 12/29/2023 12:00 PM EDT Surgery Electrophysiology [place] [phone] Xavier Malhotra MD [facility] [place] [address] ELECTROPHYSIOLOGY PROCEDURE 01/14/2024 10:40 AM EDT Office Visit Cardiology at [address] [phone] Carmen Castaneda PA [facility] [place] [address] Scheduled Procedures Name Priority Associated Diagnoses Date/Ti me TRANSESOPHAGEAL ECHO DURING CATH/EP PROCEDURE Paroxysmal atrial fibrillation 12/29/2023 7:30 AM EDT documented as of this encounter Goals Goal Patient Goal Type Associated Problems Recent Progress Patient-Stated? Author DH Home Medication Compliance and Understanding Patient Facing Action Plan Lani Love, [facility] Note: Maintain control of disease for as long as possible as assessed by tumor marker levels and scans in clinic every 3 to 6 months documented as of this encounter Visit Diagnoses Not on filedocumented in this encounter Care Teams Wire Frame Lamp Shade Maker Relationship Specialty Start Date End Date Evelyne Hunt APRN [address] [place] [address] PCP - General Internal Medicine 09/23/17 documented as of this encounter
--- OUTSIDE RECORDS SUMMARY | 2023-12-01 02:12 | XMS_ITS | Encounter Summary ---
Author Organization [facility] Address [facility] [place] [address] Care Team Providers Care Oven Dauber Name Role Phone Marilee, Evelyne Daugherty APRN Primary Care Provider [phone] Encounter Details Date Type Department Care Team (Latest Contact Info) Description 01/07/2022 12:38 PM EDT - 01/07/2022 11:59 PM EDT Hospital Encounter XRay at [address] [place] [address] Efrain Felder MD [facility] [place] [address] Aortic valve stenosis, etiology of cardiac valve disease unspecified; Systolic anterior movement of mitral valve Discharge Disposition: Home Social History Tobacco Use [...] 90 days. 30 tablet 2 02/07/2022 05/08/2022 clindamycin (CLEOCIN) 300 mg Capsule Take 2 capsules by mouth as needed (dental procedures). Take 1 hour prior to dental procedures 30 capsule 02/06/2022 02/06/2022 acetaminophen (Tylenol) 500 mg Tablet Take 2 [...] to dental procedures 2 capsule 02/06/2022 02/13/2023 chlorhexidine (HIBICLENS) 4 % Liquid Apply topically daily as needed. Shower from head to toe with Chlorhexidine the night before surgery . 120 mL 01/07/2022 01/29/2022 atorvastatin (Lipitor) 40 mg Tablet atorvastatin 40 mg tablet 02/06/2022 dilTIAZem CD (Cardizem CD) 120 mg Capsule, Sust. Release 24 hr Take 360 mg by mouth daily. 08/22/2021 02/06/2022 metoprolol succinate XL (Toprol-XL) 25 mg Tablet Sustained Release 24 hrIndications:Hypert ension, unspecified type,SVT (supraventricular tachycardia) Take 1 tablet by mouth daily. 90 tablet 2 06/18/2021 02/06/2022 niraparib (Zejula) 100 mg capsuleIndications:e pithelial ovarian cancer Take 1 capsule (100 mg) by mouth daily. 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 30 capsule 11 04/24/2021 05/02/2022 ergocalciferol, vitamin D2, (VITAMIN D ORAL) Take by mouth daily. 022 documented as of this encounter Plan of Treatment Upcoming Encounters Date Type Department Care Team (Latest Contact Info) Description 12/25/2023 9:[address] [place] [address] Xavier Malhotra MD [facility] [place] [address] 12/29/2023 Hospital Encounter [place] [phone] Xavier Malhotra MD [facility] [place] [address] Paroxysmal atrial fibrillation 12/29/2023 7:30 AM EDT - 12/29/2023 12:00 PM EDT Surgery [place] [phone] Xavier Malhotra MD [facility] [place] [address] ELECTROPHYSIOLOGY PROCEDURE 01/14/2024 10:40 AM EDT Office Visit Cardiology at [address] [phone] Carmen Castaneda PA [facility] [place] [address] Scheduled Procedures Name Priority Associated Diagnoses Date/Ti [...] Comments XR CHEST PA AND LATERAL Routine 01/07/2022 12:51 PM EDT Aortic valve stenosis, etiology of cardiac valve disease unspecified Systolic anterior movement of mitral valve documented in this encounter Results * XR Chest PA & Lateral (Generic) (01/07/2022 12:51 PM EDT) Anatomical Region Laterality Modality Chest N/A Digital Radiogra phy Impressions 01/07/2022 1:38 PM EDT Normal radiograph of the chest. I have personally reviewed the image(s) and the resident's interpretation and agree with the findings, Erick Pop DO at 01/07/2022 1:38 PM Thank you for letting us participate in the care of this patient. ??If you are a health care provider and have any questions regarding this report, please contact the number below. ??For patients who have questions please contact the health youth career specialist that requested your imaging first. ? Narrative 01/07/2022 1:38 PM EDT EXAMINATION: XR CHEST PA AND LATERAL (GENERIC) CLINICAL HISTORY: Preop AVR, history of ovarian cancer TECHNIQUE: PA and lateral views of the chest COMPARISON: Chest x-ray dated 02/01/[address] with contrast dated 12/30/2019. FINDINGS: There has been interval removal of the chest port catheter. No cardiomegaly. Normal cardiac silhouette, kassie, and pulmonary vessels. Lungs are clear bilaterally. Normal diaphragm. No pleural effusion or consolidation. No acute osseous abnormalities. Normal soft tissue. Procedure Note Erick Pop DO - 01/07/2022 EXAMINATION: XR CHEST PA AND LATERAL (GENERIC) CLINICAL HISTORY: Preop AVR, history of ovarian cancer TECHNIQUE: PA and lateral views of the chest COMPARISON: Chest x-ray dated 02/01/[address] with contrastdated 12/30/2019. FINDINGS: There has been interval removal of the chest port catheter. No cardiomegaly. Normal cardiac silhouette, kassie, and pulmonary vessels.Lungs are clear bilaterally. Normal diaphragm. No pleural effusion orconsolidation. No acute osseous abnormalities. Normal soft tissue. IMPRESSION Normal radiograph of the chest. I have personally reviewed the image(s) and the resident's interpretationand agree with the findings, Erick Pop DO at 01/07/2022 1:38 PM Thank you for letting us participate in the care of this patient. If youare a health care provider and have any questions regarding this report,please contact the number below. For patients who have questions please contactthe health youth career specialist that requested your imaging first. Efrain Felder MD IMG DX ORDERABLES documented in this encounter Visit Diagnoses Diagnosis Aortic valve stenosis, etiology of cardiac valve disease unspecified Systolic anterior movement of mitral valve Mitral valve disorders Paroxysmal atrial fibrillation Atrial fibrillation Paroxysmal atrial fibrillation Atrial fibrillation documented in this encounter Care Teams Oven Dauber Relationship Specialty Start Date End Date Evelyne Hunt APRN [address] [place] [address] PCP - General Internal Medicine 09/23/17 documented as of this encounter
--- OUTSIDE RECORDS SUMMARY | 2023-12-01 02:12 | XMS_ITS | Encounter Summary ---
Author Organization [facility] [place] [address] Care Team Providers Care Shop Clerk Name Role Phone Kiki Huntyce Dat STEVEN Primary Care Provider [phone] Reason for Visit * Reason Comments Medication Refill Encounter Details Date Type Department Care Team (Late st Contact Info) Description 10/15/2021 Specialty [place] [phone] Lizz Jones, [facility] Social History Tobacco Use Types [...] this encounter Progress Notes * Lizz Jones [facility] - 10/15/2021 10:08 AM EDT Clinical Management Plan: Refill Specialty Pharmacy Consultation; Lizz Jones [facility] Comprehensive Medication Management (CMM) Gabi Benitoyvonne Ms. [...] complete drug. Medication Reconciliation Discrepancies (compared to [facility] med list) No Specialty Pharmacy Refill Questionnaire Refill Questionnaire 10/15/2021 What is the name of the specialty medication you are refilling? Zejula Are you taking any new medications? No Please explain - Any new medical condition? No Any new allergies? No Any new side effects that are bothersome? No What date will you need this fill by? 10/22/2021 Adherence: Any missed doses? No Patient understands no changes to current drug regimen were made. Lizz Jones RPH 10/15/21 10:09 AM documented in this encounter Plan of Treatment Upcoming Encounters Date Type Department Care Team (Latest Contact Info) Description 12/25/2023 9:[address] [place] [address] Xavier Malhotra MD [facility] [place] [address] 12/29/2023 Hospital Encounter [place] [phone] Xavier Malhotra MD [facility] [place] [address] Paroxysmal atrial fibrillation 12/29/2023 7:30 AM EDT - 12/29/2023 12:00 PM EDT Surgery [place] [phone] Xavier Malhotra MD [facility] [place] [address] ELECTROPHYSIOLOGY PROCEDURE 01/14/2024 10:40 AM EDT Office Visit Cardiology at [address] [phone] Carmen Castaneda PA [facility] [place] [address] Scheduled Procedures Name Priority Associated Diagnoses Date/Ti me TRANSESOPHAGEAL ECHO DURING CATH/EP PROCEDURE Paroxysmal atrial fibrillation 12/29/2023 7:30 AM EDT documented as of this encounter Goals Goal Patient Goal Type Associated Problems Recent Progress Patient-Stated? Author DH Home Medication Compliance and Understanding Patient Facing Action Plan No Lani Vargas, [facility] Note: Maintain control of disease for as long as possible as assessed by tumor marker levels and scans in clinic every 3 to 6 months documented as of this encounter Visit Diagnoses Not on filedocumented in this encounter Care Teams Shop Clerk Relationship Specialty Start Date End Date Evelyne Hunt APRN [address] [place] [address] PCP - General Internal Medicine 09/23/17 documented as of this encounter
--- OUTSIDE RECORDS SUMMARY | 2023-12-01 02:12 | XMS_ITS | Encounter Summary ---
Author Organization [facility] [place] [address] Care Team Providers Care Rotary Operator Name Role Phone Evelyne Hunt Dat STEVEN Primary Care Provider [phone] Encounter Details Date Type Department Care Team (Late st Contact Info) Description 12/17/2021 Orders Only Gynecology [place] [address] Amrit Ram MD [facility] GYNECOLOGY ONCOLOGY [place], [place] [phone] Social History Tobacco Use Types Packs/Day Years [...] 9:[address] [place] [address] Xavier Malhotra MD [facility] [place] [address] 12/29/2023 Hospital Encounter Electrophys[place] [address] Xavier Malhotra MD [facility] [place] [address] Paroxysmal atrial fibrillation 12/29/2023 7:30 AM EDT - 12/29/2023 12:00 PM EDT Surgery Electrophys[place] [phone] Xavier Malhotra MD [facility] [place] [address] ELECTROPHYSIOLOGY PROCEDURE 01/14/2024 10:40 AM EDT Office Visit Cardiology at [address] [phone] Carmen Castaneda PA [facility] [place] [address] Scheduled Procedures Name Priority Associated Diagnoses Date/Ti [...] on filedocumented in this encounter Care Teams Rotary Operator Relationship Specialty Start Date End Date Evelyne Hunt APRN [address] [place] [address] PCP - General Internal Medicine 09/23/17 documented as of this encounter
--- OUTSIDE RECORDS SUMMARY | 2023-12-01 02:12 | XMS_ITS | Encounter Summary ---
Author Organization [facility] Address [facility] Bert cassidy [place] [id number] Care Team Providers Care Wealth Management Manager Name Role Phone Evelyne Hunt APRN Primary Care Provider [phone] Reason for Visit * Consultation (Routine) - Closed Specialty Diagnoses / Procedures Referred By Contac t Referred To Contact Cardiac Surgery Diagnoses Aortic valve stenosis, etiology of cardiac valve disease unspecified Mandeep Franco MD [facility] [place] [address] Efrain Felder MD [facility] [place] [address] Referral ID Status Reason Start Date Expiration Date V isits Requested Visits Authorized [id number] Closed Consult, Test & Treat 11/29/2021 11/29/2022 1 1 Encounter Details Date Type Department Care Team (Late st Contact Info) Description 01/07/2022 9:10 AM EDT Office [place] [address] Efarin Felder MD [facility] [place] [address] Aortic valve stenosis, etiology of cardiac valve [...] Sign Reading Time Taken Comments Blood Pressure 144/73 01/07/2022 9:19 AM EDT Pulse 74 01/07/2022 9:19 AM EDT Temperature - - Respiratory Rate - - Oxygen Saturation 100% 01/07/2022 9:19 AM EDT Inhaled Oxygen Concentration - - Weight 60.6 kg (133 lb 8 oz) 01/07/2022 9:19 AM EDT Height 165.1 cm (5' 5) 01/07/2022 9:19 AM EDT Body Mass Index 22.22 01/07/2022 9:19 AM EDT documented in this encounter Progress Notes * Efrain Felder MD - 01/07/2022 9:10 AM EDT I am seeing Ms Luna for aortic stenosis. 61 yo female who has been followed for a period of time with progressive aortic stenosis. Her most recent echo shows LVEF 75%, mean gradient of 49 mmHg, moderate AI. She also has some JERRY with mild to moderate LVOT gradients. She has noted increasing fatigue, dyspnea and lightheadedness. She also has a history of SVT and tried to undergo ablation, but they could not induce the arrhythmia. Cardiaccath shows fairly normal PAP and no CAD. She comes in today to discuss valve surgery. Allergies Allergen Reactions ??? Paroxetine ??? Penicillins Anaphylaxis ??? Sertraline ??? Venlafaxine ??? Taxol [Paclitaxel] Palpitations and Other (See Comments) 17 mls into Taxol C/O of palpitations/lower back pain.Drug stopped. Benadryl/Pepcid/Ativan given. Was able to start drug at half rate when symptoms subsided and increased rate every 30-60 mins. Was able to complete drug. Outpatient Medications Marked as Taking for the 01/07/22 encounter (Office Visit) with Efrain Felder MD Medication Sig Dispense Refill ??? atorvastatin (Lipitor) 10 mg Tablet Take 10 mg by mouth daily. ??? dilTIAZem CD (Cardizem CD) 120 mg Capsule, Sust. Release 24 hr Take 360 mg by mouth daily. ??? metoprolol succinate XL (Toprol-XL) 25 mg Tablet Sustained Release 24 hr Take 1 tablet by mouthdaily. 90 tablet 2 ??? niraparib (Zejula) 100 mg capsule Take 1 capsule (100 mg) by mouth daily. 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 buPROPion XL (Wellbutrin XL) 300 mg Tablet Extended Release 24 hr TK 1 T PO QAM ??? ergocalciferol, vitamin D2, (VITAMIN D ORAL) Take by mouth daily. Patient Active Problem List Diagnosis Code ??? Hypothyroidism E03.9 ??? SVT (supraventricular tachycardia) I47.1 ??? Bicuspid aortic valve Q23.1 ??? Chest pain R07.9 ??? Aortic valve stenosis I35.0 ??? HTN (hypertension) I10 ??? 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 BRCA negative Z13.71 Past Medical History: Diagnosis Date ??? Allergic [...] IR Mediport Placement 08/20/2019 Jourdan Lopez PA [facility] INTERVENTIONL RAD ??? IR MEDIPORT REMOVAL 10/04/2020 IR Mediport Removal 10/04/2020 Mahesh Wick MD [facility] INTERVENTIONL RAD ? ? PRG CATH [facility] CORONARY ART W/INJ FOR ANGIO W/R HEART CATH IMG S&I N/A 12/17/2021 CORONARY ANGIOGRAPHY; W RHC performed by Cristóbal Cuevas MD at [facility] CATH LABS ??? PRO GINA SALP-OOPH W/OMENTECT, FREDI, RAD DISSECT N/A 07/20/2019 @HYSTERECTOMY, FREDI, BSO, DEBULKING (WRVU 34.13) performed by Natalie Vallejo MD at [facility] MAIN OR ??? PRO COLONOSCOPY, REMV LESN, SNARE N/A 05/01/2021 COLONOSCOPY, POLYPECTOMY, REMOVAL LESION BY SNARE (WRVU 4.67) performed by Arlin Agudelo MDat [facility] ENDOSCOPY FH: + heart valve disease SH: and seen with her , non-smoker, rare etoh Review of Systems Constitutional: Negative. HENT: Negative. Eyes: Negative. Respiratory: Positive for shortness of breath. Cardiovascular: Positive for palpitations. Gastrointestinal: Negative. Genitourinary: Negative. Musculoskeletal: Negative. Skin: Negative. Neurological: Negative. Endo/Heme/Allergies: Negative. Psychiatric/Behavioral: Negative. Physical Exam: BP 144/73 (BP Location (NBP): [...] + vitiligo, no other lesions or rashes A/P: 61 yo female with symptomatic severe and possible issue with JERRY underneath the valve. She meets indications for surgery. Surgical risk is moderate. She understands the procedure, risks and expectations. Would plan for a tissue valve. She may require ventricular myectomy as well with there is an LVOT problem. She understands the risks of pacemaker implant. I would like her to stop her niraparib one week prior to surgery. Consent signed today. documented in this encounter Plan of Treatment Upcoming Encounters Date Type Department Care Team (Latest Contact Info) Description 12/25/2023 9:[address] [place] [address] Xavier Malhotra MD [facility] [place] [address] 12/29/2023 Hospital Encounter [place] [address] Xavier Malhotra MD [facility] [place] [address] Paroxysmal atrial fibrillation 12/29/2023 7:30 AM EDT - 12/29/2023 12:00 PM EDT Surgery [place] [address] Xavier Malhotra MD [facility] [place] [address] ELECTROPHYSIOLOGY PROCEDURE 01/14/2024 10:40 AM EDT Office Visit Cardiology at [address] [address] Carmen Castaneda PA [facility] [place] [address] Scheduled Orders Name Type Priority Associated Diagnoses Orde r Schedule CBC (with Diff) Lab Routine Aortic valve stenosis, etiology of cardiac valve disease unspecified Systolic anterior movement of mitral valve Expected: 01/07/2022, Expires: 07/09/2022 Scheduled Procedures Name Priority Associated Diagnoses Date/Ti me TRANSESOPHAGEAL ECHO DURING CATH/EP PROCEDURE Paroxysmal atrial fibrillation 12/29/2023 7:30 AM EDT documented as of this encounter Goals Goal Patient Goal Type Associated Problems Recent Progress Patient-Stated? Author [facility] Medication Compliance and Understanding Patient Facing Action Plan Lani Love, [facility] Note: Maintain control of disease for as long as possible as assessed by tumor marker levels and scans in clinic every 3 to 6 months documented as of this encounter Results * XR Chest PA & Lateral (Generic) (01/07/2022 12:51 PM EDT) Anatomical Region Laterality Modality Chest N/A Digital Radiogra phy Impressions 01/07/2022 1:38 PM EDT Normal radiograph of the chest. I have personally reviewed the image(s) and the resident's interpretation and agree with the findings, Erick Pop, DO at 01/07/2022 1:38 PM Thank you for letting us participate in the care of this patient. ??If you are a health care provider and have any questions regarding this report, please contact the number below. ??For patients who have questions please contact the health healthcare administrative assistant that requested your imaging first. ? Narrative [...] patients who have questions please contactthe health healthcare administrative assistant that requested your imaging first. Efrain Felder MD IMG DX ORDERABLES documented in this encounter Visit Diagnoses Diagnosis Aortic valve stenosis, etiology of cardiac valve disease unspecified Systolic anterior movement of mitral valve Mitral valve disorders Aortic valve stenosis, etiology of cardiac valve disease unspecified Systolic anterior movement of mitral valve Mitral valve disorders Paroxysmal atrial fibrillation Atrial fibrillation Paroxysmal atrial fibrillation Atrial fibrillation documented in this encounter Care Teams Wealth Management Manager Relationship Specialty Start Date End Date Evelyne Hunt, CULTURAL CENTRE MANAGER [address] [place] [address] PCP - General Internal Medicine 09/23/17 documented as of this encounter
--- OUTSIDE RECORDS SUMMARY | 2023-12-01 02:12 | XMS_ITS | Encounter Summary ---
[place] [address] Care Team Providers Care Hire Car Driver Name Role Phone Kiki Huntjunaid Daugherty APRN Primary Care Provider [phone] Encounter Details Date Type Department Care Team (Late st Contact Info) Description 12/25/2021 4:45 PM EDT Office Visit Dermatology at [address] [phone] Haresh Erwin MD [address] [facility], [facility] [place] [address] Vitiligo Social History Tobacco Use Types Packs/Day [...] Progress Notes * Haresh Erwin MD - 12/25/2021 4:45 PM EDT Problem: 1. Follow-up vitiligo, status post 3 months of narrowband UVB phototherapy 2. History of ovarian cancer Ivana follows up after last being seen some 3 months ago. She is very pleased with her progress [place] narrowband UVB light treatment for her vitiliginous skin. She been receiving 2 treatments a week and is only missed 1 during those 3 months. She has had 23 total treatments and is up to 561 mJ/cm?? . She has not had any gomez. The light unit is very convenient for her. The oldest areas of vitiligo for her are on her shins and right wrist, the newest on the dorsal hands they are only 3 months old. Physical examination reveals a pleasant 61-year-old woman who has significant repigmentation of thepreviously large vitiliginous patches on the dorsal hands bilaterally. Numerous macules of pigmentation have formed over the dorsal hands, with some also developing over the right anterior deshpande, morenoticeably on the left anterior deshpande at them at the older sites. She has little to no repigmentation of the right wrist. Also her forehead is repigmentation and around her mouth is repigmentation. Assessment plan: Vitiligo responding to narrowband UVB phototherapy, numerous macules of repigmentation present 1. Good response is noted in large part due to the patient's compliance with therapy and also the very acute nature of the dorsal hand vitiligo, having been present only for about the last 3 months 2. Continue vitiligo treatment with narrowband UVB continuing twice a week for 3 months then returnto clinic 3. Patient's had 20 treatments to date. We will aim to get up to about 23 for when her improvement levels off and then will likely discontinue phototherapy at that time. 4. Patient knows that we can restart it after discontinuation anytime should she have a recurrence. 5. Return to clinic in 3 months for repeat check. CC: TENISHA Patel MD documented in this encounter Plan of Treatment Upcoming Encounters Date Type Department Care Team (Latest Contact Info) Description 12/25/2023 9:[address] [place] [address] Xavier Malhotra MD [facility] [place] [address] 12/29/2023 Hospital Encounter [place] [address] Xavier Malhotra MD [facility] ELECTROPHYS[place] [address] Paroxysmal atrial fibrillation 12/29/2023 7:30 AM EDT - 12/29/2023 12:00 PM EDT Surgery [place]rophys[place] [phone] Xavier Malhotra MD [facility] [place] [address] ELECTROPHYSIOLOGY PROCEDURE 01/14/2024 10:40 AM EDT Office Visit Cardiology at [address] [phone] Carmen Castaneda PA [facility] [place] [address] Scheduled Procedures Name Priority Associated Diagnoses Date/Ti me TRANSESOPHAGEAL ECHO DURING CATH/EP PROCEDURE Paroxysmal atrial fibrillation 12/29/2023 7:30 AM EDT documented as of this encounter Goals Goal Patient Goal Type Associated Problems Recent Progress Patient-Stated? Author DH Home Medication Compliance and Understanding Patient Facing Action Plan Lani Love, [facility] Note: Maintain control of disease for as long as possible as assessed by tumor marker levels and scans in clinic every 3 to 6 months documented as of this encounter Visit Diagnoses Diagnosis Vitiligo Paroxysmal atrial fibrillation Atrial fibrillation Paroxysmal atrial fibrillation Atrial fibrillation documented in this encounter Care Teams Hire Car Driver Relationship Specialty Start Date End Date Evelyne Hunt APRN [address] [place] [address] PCP - General Internal Medicine 09/23/17 documented as of this encounter
--- OUTSIDE RECORDS SUMMARY | 2023-12-01 02:12 | XMS_ITS | Encounter Summary ---
Author Organization [facility] [place] [address] Care Team Providers Care Florist Manager Name Role Phone Kiki Huntyce Dat STEVEN Primary Care Provider [phone] Encounter Details Date Type Department Care Team (Late st Contact Info) Description 08/14/2021 Orders Only Pharmacy at [place] [phone] Lani Vargas, [facility] Social History Tobacco Use Types [...] 9:[address] [place] [address] Xavier Malhotra MD [facility] [place] [place] [address] 12/29/2023 Hospital Encounter [place] [address] Xavier Malhotra MD [facility] [address] [place] [place] [id number] Paroxysmal atrial fibrillation 12/29/2023 7:30 AM EDT - 12/29/2023 12:00 PM EDT Surgery [place] [phone] Xavier Malhotra MD [facility] [place] [address] ELECTROPHYSIOLOGY PROCEDURE 01/14/2024 10:40 AM EDT Office Visit Cardiology at [address] [phone] Carmen Castaneda PA [facility] CARDIOLOGY [place], [place] [phone] Scheduled Procedures Name Priority Associated Diagnoses Date/Ti me TRANSESOPHAGEAL ECHO DURING CATH/EP PROCEDURE Paroxysmal atrial fibrillation 12/29/2023 7:30 AM EDT documented as of this encounter Goals Goal Patient Goal Type Associated Problems Recent Progress Patient-Stated? Author [facility] Medication Compliance and Understanding Patient Facing Action Plan No Lani Vargas, [facility] Note: Maintain control of disease for as long as possible as assessed by tumor marker levels and scans in clinic every 3 to 6 months documented as of this encounter Visit Diagnoses Not on filedocumented in this encounter Care Teams Florist Manager Relationship Specialty Start Date End Date Evelyne Hunt APRN [address] [facility] [place] [address] PCP - General Internal Medicine 09/23/17 documented as of this encounter
--- OUTSIDE RECORDS SUMMARY | 2023-12-01 02:12 | XMS_ITS | Encounter Summary ---
Author Organization [facility] [place] [address] Care Team Providers Care Rod Placer Name Role Phone Evelyne Hunt Dat STEVEN Primary Care Provider [phone] Reason for Visit * Reason Comments Medication Refill Encounter Details Date Type Department Care Team (Late st Contact Info) Description 11/12/2021 Specialty Pharmacy [place] [phone] Gus Call, [facility] Social History Tobacco Use Types Packs/Day Years [...] this encounter Progress Notes * Gus Call [facility] - 11/12/2021 8:58 AM EDT Clinical Management Plan: Refill Specialty Pharmacy Consultation; Gus Call [facility] Comprehensive Medication Management (CMM) Gabi Benitoyvonne Ms. Gbai Luna is a 61 y.o. (1960) female [...] complete drug. Medication Reconciliation Discrepancies (compared to [facility] med list) No Specialty Pharmacy Refill Questionnaire Refill Questionnaire 11/12/2021 What is the name of the specialty medication you are refilling? ZEJULA Are you taking any new medications? No Please explain - Any new medical condition? No Any new allergies? No Any new side effects that are bothersome? No What date will you need this fill by? 11/21/2021 Adherence: Any missed doses? No Patient understands no changes to current drug regimen were made. Gus Call RPH 11/12/21 8:59 AM documented in this encounter Plan of Treatment Upcoming Encounters Date Type Department Care Team (Latest Contact Info) Description 12/25/2023 9:[address] [place] [address] Xavier Malhotra MD [facility] [place] [address] 12/29/2023 Hospital Encounter Electrophysiology [place] [address] Xavier Malhotra MD [facility] [place] [address] Paroxysmal atrial fibrillation 12/29/2023 7:30 AM EDT - 12/29/2023 12:00 PM EDT Surgery Electrophysiology [place] [phone] Xavier Malhotra MD [facility] [place] [address] ELECTROPHYSIOLOGY PROCEDURE 01/14/2024 10:40 AM EDT Office Visit Cardiology at [address] [phone] Carmen Castaneda PA [facility] [address] Scheduled Procedures Name Priority Associated Diagnoses Date/Ti ia TRANSESOPHAGEAL ECHO DURING CATH/EP PROCEDURE Paroxysmal atrial [...] on filedocumented in this encounter Care Teams Rod Placer Relationship Specialty Start Date End Date Evelyne Hunt APRN [address] [place] [address] PCP - General Internal Medicine 09/23/17 documented as of this encounter
--- OUTSIDE RECORDS SUMMARY | 2023-12-01 02:12 | XMS_ITS | Encounter Summary ---
Author Organization [facility] [place] [address] Care Team Providers Care Impregnator And Drier Name Role Phone Evelyne Hunt TENISHA Primary Care Provider [phone] Encounter Details Date Type Department Care Team (Late st Contact Info) Description 11/29/2021 Orders Only Cardiology at [address] [phone] Mandeep Franco MD [facility] [place] [address] Aortic valve stenosis, etiology of cardiac valve disease unspecified (Primary Dx); Bicuspid aortic valve Social History Tobacco Use [...] 9:[address] [place] [phone] Xavier Malhotra MD [facility] [place] [address] 12/29/2023 Hospital Encounter [place] [address] Xavier Malhotra MD [facility] [place] [address] Paroxysmal atrial fibrillation 12/29/2023 7:30 AM EDT - 12/29/2023 12:00 PM EDT Surgery [place] [address] Xavier Malhotra MD [facility] [address] [place] [address] ELECTROPHYSIOLOGY PROCEDURE 01/14/2024 10:40 AM EDT Office Visit Cardiology at [address] [phone] Carmen Castaneda PA [facility] [place] [address] Scheduled Procedures Name Priority Associated Diagnoses Date/Ti [...] etiology of cardiac valve disease unspecified- Primary Bicuspid aortic valve Congenital insufficiency of aortic valve Paroxysmal atrial fibrillation Atrial fibrillation Paroxysmal atrial fibrillation Atrial fibrillation documented in this encounter Care Teams Impregnator And Drier Relationship Specialty Start Date End Date Evelyne Hunt APRN [address] [place] [address] PCP - General Internal Medicine 09/23/17 documented as of this encounter
--- OUTSIDE RECORDS SUMMARY | 2023-12-01 02:12 | XMS_ITS | Encounter Summary ---
Author Organization [facility] [place] [address] Care Team Providers Care Retirement Actuary Name Role Phone Evelyne Hunt Dat STEVEN Primary Care Provider [phone] Encounter Details Date Type Department Care Team (Late st Contact Info) Description 01/07/2022 11:00 AM EDT Clinical Support Same Day at [facility] [place] [phone] Social History Tobacco Use Types Packs/Day Years [...] as of this encounter Progress Notes * Cristóbal Eddy RN - 01/07/2022 11:00 AM EDT PAT questionnaire reviewed with patient and Sandoval while in Pre Admission testing. Pre-operative instruction booklet reviewed with patient. Reviewed importance of pain control and cough and deep breathing exercise during the post-operative period. Instructed patient on use of Hibiclens soap to shower with the night before surgery or the morning of surgery. Pt verbalizes good understanding of all information reviewed. Pt aware they will receive Cardiac Surgery book and will bring DOS PLAN Testing: Labs T&S CXR Special medication instructions: None Procedure date: Not booked Potential date per patient 01-29-22 Emerita HORTA documented in this encounter Plan of Treatment Upcoming Encounters Date Type Department Care Team (Latest Contact Info) Description 12/25/2023 9:[address] Scan at [place] [phone] Xavier Malhotra MD [facility] [place] [address] 12/29/2023 Hospital Encounter Electrophysiology Lab at [place] [phone] Xavier Malhotra MD [facility] [place] [address] Paroxysmal atrial fibrillation 12/29/2023 7:30 AM EDT - 12/29/2023 12:00 PM EDT Surgery Electrophysiology Lab at [place] [phone] Xavier Malhotra MD [facility] [place] [address] ELECTROPHYSIOLOGY PROCEDURE 01/14/2024 10:40 AM EDT Office Visit Cardiology at [place] [phone] Carmen Castaneda PA [facility] [place] [address] Scheduled Procedures Name Priority Associated Diagnoses Date/Ti me TRANSESOPHAGEAL ECHO DURING CATH/EP PROCEDURE Paroxysmal atrial fibrillation 12/29/2023 7:30 AM EDT documented as of this encounter Goals Goal Patient Goal Type Associated Problems Recent Progress Patient-Stated? Author Home Medication Compliance and Understanding Patient Facing Action Plan Lani Love, [facility] Note: Maintain control of disease for as long as possible as assessed by tumor marker levels and scans in clinic every 3 to 6 months documented as of this encounter Visit Diagnoses Not on filedocumented in this encounter Care Teams Retirement Actuary Relationship Specialty Start Date End Date Evelyne Hunt APRN [address] [place] [address] PCP - General Internal Medicine 09/23/17 documented as of this encounter
--- OUTSIDE RECORDS SUMMARY | 2023-12-01 02:12 | XMS_ITS | Encounter Summary ---
Author Organization [facility] Address [facility] [place] [address] Care Team Providers Care Bonding Machine Operator Name Role Phone Kiki Huntyce Dat STEVEN Primary Care Provider [phone] Reason for Visit * Auth/Cert Specialty Diagnoses / Procedures Referred By Contac t Referred To Contact Diagnoses Nonrheumatic aortic (valve) stenosis Aortic valve stenosis, etiology of cardiac valve disease unspecified [I35.0] Procedures PRG CATH PLMT CORONARY ART W/INJ FOR ANGIO W/R HEART CATH IMG S&I CARDIAC CATHETERIZATION CORONARY ANGIOGRAPHY; [facility] Cristóbal Cuevas MD [facility] [place] [address] [facility] Referral ID Status Reason Start Date Expiration Date Visits Re quested Visits Authorized [id number] 1 1 Encounter Details Date Type Department Care Team (Latest Contact Info) Description 12/17/2021 10:13 AM EDT - 12/17/2021 4:54 PM EDT Hospital Encounter [place] [address] Cristóbal Cuevas MD [facility] [place] [address] Aortic valve stenosis, etiology of cardiac valve [...] Sign Reading Time Taken Comments Blood Pressure 117/78 12/17/2021 4:15 PM EDT Pulse 65 12/17/2021 3:15 PM EDT Temperature 36.6 ??C (97.9 ??F) 12/17/2021 3:33 PM ED T Respiratory Rate 16 12/17/2021 4:15 PM EDT Oxygen Saturation 98% 12/17/2021 4:15 PM EDT Inhaled Oxygen Concentration - - Weight 59.5 kg (131 lb 3.2 oz) 12/17/2021 11:37 AM EDT Height 165.1 cm (5' 5) 12/17/2021 11:37 AM EDT Body Mass Index 21.83 12/17/2021 11:37 AM EDT documented in this encounter Discharge Instructions * Discharge Instructions* Harper Rodriguez, DMITRY - 12/17/2021 3:55 PM EDT Radial Access [...] by your doctor, do not take any pbxo-fpo-viejkep medicinesor herbal preparations without first discussing this with your doctor or pharmacist. There is the possibility of side effects and interactions when these are combined. Follow Up Care Who to call with questions or problems If there are any questions or problems that you think might be related to your cardiac cath or angioplasty, contact the caterpillar tractor operator digital content marketing manager by calling [facility] at . documented in this encounter [...] date: 12/17/2021 Attending Physician: Cristóbal Cuevas MD [facility] [address] SAME DAY CARDIAC CATHETERIZATION LAB H&P ID: Gabi Luna is a 61 y.o. female with past medical history noted below who presents for diagnostic coronary angiogram and right heart athwterization with family and prior history of bicuspidaortic valve seen by outpatient [facility] cardiology for evaluation of moderate to [...] as planned -consent signed Dipak David DO Parts Designer 12/17/2021 documented in this encounter Plan of Treatment Upcoming Encounters Date Type Department Care Team (Latest Contact Info) Description 12/25/2023 9:[address] [place] [address] Xavier Malhotra MD [facility] [place] [place] [address] 12/29/2023 Hospital Encounter [place] [address] Xavier Malhotra MD [facility] [place] [address] Paroxysmal atrial fibrillation 12/29/2023 7:30 AM EDT - 12/29/2023 12:00 PM EDT Surgery [place] [phone] Xavier Malhotra MD [facility] [place] [address] ELECTROPHYSIOLOGY PROCEDURE 01/14/2024 10:40 AM EDT Office Visit Cardiology at [address] [phone] Carmen Castaneda PA [facility] [place] [address] Scheduled Procedures Name Priority Associated Diagnoses Date/Ti [...] For Angio W/R Heart Cath Img S&I ([id number]) 12/17/2021 12:11 PM EDT Aortic valve stenosis, [...] Modality Other Narrative 12/17/2021 2:04 PM EDT ?[facility] ? Cardiac Catheterization/Intervention Report ? Patient Name: Cheryl, Gabi ? Procedure Date: 12/17/2021 ? A #: [id number] ? Primary Physician: Cristóbal Cuevas ? Case #: [id number] ? File Name: [id number] ? Catheterization Order Number: [id number] ? [facility] ? Final Report [place], [place] ? Patient Name: ? Gabi Jignai ?ID#: ?[id number] ? : ?1960 ? Procedure Date: ? December 17, 2021 ?Case #: ? [id number] ? Room: ? 2 ? Case Physicians: ?Cristóbal Cuevas M.D. ? Start: ?12:45 ?Awilda Dumont M.D. ? [...] was ?designated as ASA Class III. The [facility] clinical frailty scale is 3: ?Managing Well. [...] right heart catheterization and oximetry. ? Cristóbal E Faith, M.D. ? Electronically Signed by: Cristóbal Cuevas [...] (Bezet) 448 ms MUSE SYSTEM Calculated P [place] 62 degrees MUSE SYSTEM Calculated R [place] 37 degrees MUSE SYSTEM Calculated T [place] 24 degrees MUSE SYSTEM INTERPRETATION Normal sinus rhythm Nonspecific ST abnormality Abnormal ECG When compared with ECG of 18-MAY-2019 08:14, No significant change was found Confirmed by MD Erin, Favio ([id number]) on 12/17/2021 1:39:36 PM MUSE SYSTEM 12/17/2021 11:5 3 AM EDT 12/17/2021 1:39 PM EDT Cristóbal Cuevas MD ECG ORDERABLES MUSE SYSTEM * Scan, Peripheral Blood (12/17/2021 10:39 AM EDT) Pathologist [facility] Plat estimate Normal [facility] RBC Morphology Abnormal [facility] Macrocyte 1-5 /HPF [facility] Blood 12/17/2021 10:3 9 AM EDT 12/17/2021 11:07 AM EDT Narrative Resulting Agency Comment Spec In Lab Mandeep Franco MD HEMATOLOGY ORDERAB LES [facility] [place] [address] * Differential, Automated (12/17/2021 10:39 AM EDT) Pathologist [facility] Neutrophil % 65.0 % [facility] Neutrophil Absolute 4.14 1.70 - 6.10 x10(3)/[facility] Lymph % 22.0 % [facility] Lymphocytes Abs 1.4 0.9 - 3.2 x10(3)/[facility] Monocyte % 8.9 % [facility] Monocyte Abs 0.6 0.3 - 0.9 x10(3)/[facility] Eos % 2.8 % [facility] Eosinophils Abs 0.2 0.0 - 0.4 x10(3)/[facility] Basophil % 1.1 % [facility] Baso Absolute 0.1 0.0 - 0.1 x10(3)/[facility] Immature Gran % 0.20 % [facility] Comment: Immature granulocytes(IG's)percentage and absolute count will include metamyelocytes, myelocytes, and promyelocytes. Blood smears from CBCs yielding IG's will be scanned manually for concordance. If this scan disagrees with the automated IG or if promyelocytes are noted, a manual differential will be performed. Immature Gran Absolute 0.01 0.00 - 0.04 x10(3)/[facility] Blood 12/17/2021 10:3 9 AM EDT 12/17/2021 11:07 AM EDT Narrative Resulting Agency Comment Spec In Lab Mandeep Franco MD HEMATOLOGY ORDERAB LES [facility] [place] [address] * (ABNORMAL) Hemogram (12/17/2021 10:39 AM EDT) [...] RDW Standard Deviation 46.0 37.0 - 46.0 [facility] RDW coefficient of variation 11.7 11.5 - 14.1 % [facility] Mean Platelet Volume 9.1 7.6 - 12.[address] [facility] NRBC% auto 0.0 % [facility] NRBC Absolute 0.000 0.000 - 0.000 x10(3)/mc L [facility] Blood 12/17/2021 10:3 9 AM EDT 12/17/2021 11:07 AM EDT Narrative Resulting Agency Comment Spec In Lab Mandeep Franco MD HEMATOLOGY ORDERAB LES Performing Organization Address [facility] Co de Phone Number [facility] [place] [address] * Prothrombin Time (12/17/2021 10:39 AM EDT) [...] MD HEMATOLOGY ORDERAB LES Performing Organization Address [facility] Co de Phone Number [facility] [place] [address] * (ABNORMAL) BMP w/fasting Glucose (12/17/2021 10:39 [...] of Diabetes Mellitus, Position Statement from the [place] [employer]. ??Diabetes Care, Volume 33, Supplement [...] CHEMISTRY ORDERABL ES [facility] [place] [address] documented in this encounter Visit Diagnoses Diagnosis Aortic valve stenosis, etiology of cardiac valve disease unspecified Aortic valve stenosis, etiology of cardiac valve disease unspecified Paroxysmal atrial fibrillation Atrial fibrillation Paroxysmal atrial fibrillation Atrial fibrillation documented in this encounter Administered Medications Inactive Administered Medications - up to 3 most recent administrations Medication Order MAR Action Action Date Dose Rate Site sodium chloride 0.9% infusion 150 mL/hr, Intravenous, CONTINUOUS, Starting on Fri12/17/21 at 1445, Until Fri12/17/21 at 1644, Recovery (Recovery-Hospital Unit) Rate/Dose Verify 12/17/2021 4:00 PM EDT 150 mL/hr 150 mL/hr Rate/Dose Verify 12/17/2021 3:33 PM EDT 150 mL/hr 150 mL/ hr New Bag 12/17/2021 2:20 PM EDT 150 mL/hr 150 mL/hr documented in this encounter Active and Recently [...] 1235 (Given - Provid er: Jeri De Paz, DMITRY)1250 (Given - Provider: Jeri De Paz RN) heparin (porcine) (1,000 units/mL) injection (CANCELED) ONCE PRN, Starting on Fri12/17/21 at 1315, Until Fri12/17/21 at 1337, Cath (Intra-Procedure), Routine 1315 (Given - Provid er: Jeri De Paz, DMITRY) iohexoL (Omnipaque) (350 mg/mL) solution (CANCELED) ONCE [...] MD) documented in this encounter Care Teams Bonding Machine Operator Relationship Specialty Start Date End Date Evelyne Hunt, TRANSFER KNITTER [address] [facility] [place] [address] PCP - General Internal Medicine 09/23/17 documented as of this encounter
--- OUTSIDE RECORDS SUMMARY | 2023-12-01 02:12 | XMS_ITS | Encounter Summary ---
Author Organization [facility] [place] [address] Care Team Providers Care Research Food Technologist Name Role Phone Kiki Huntyce Dat STEVEN Primary Care Provider [phone] Reason for Visit * Reason Comments Medication Management Encounter Details Date Type Department Care Team (Late st Contact Info) Description 09/18/2021 Specialty [place] [phone] Yeny Marcano Red Social History Tobacco Use Types Packs/Day [...] as of this encounter Progress Notes * Yeny Marcano RPH - 09/18/2021 9:22 AM EDT Clinical Management Plan: Refill Specialty Pharmacy Consultation; Yeny Marcano Red Comprehensive Medication Management (CMM) Gabi Velázquez Cheryl Ms. Gabi Luna is a 60 y.o. [...] complete drug. Medication Reconciliation Discrepancies (compared to [facility] med list) No Specialty Pharmacy Refill Questionnaire Refill Questionnaire 09/18/2021 What is the name of the specialty medication you are refilling? Zejula Are you taking any new medications? No Please explain - Any new medical condition? No Any new allergies? No Any new side effects that are bothersome? No What date will you need this fill by? 09/22/2021 Adherence: Any missed doses? No Patient understands no changes to current drug regimen were made. Yeny Marcano RPH 09/18/21 9:24 AM documented in this encounter Plan of Treatment Upcoming Encounters Date Type Department Care Team (Latest Contact Info) Description 12/25/2023 9:[address] [place] [address] Xavier Malhotra MD [facility] [place] [address] 12/29/2023 Hospital Encounter [place] [address] Xavier Malhotra MD [facility] [place] [address] Paroxysmal atrial fibrillation 12/29/2023 7:30 AM EDT - 12/29/2023 12:00 PM EDT Surgery [place] [address] Xavier Malhotra MD [facility] [place] [address] ELECTROPHYSIOLOGY PROCEDURE 01/14/2024 10:40 AM EDT Office Visit Cardiology at [address] [address] Carmen Castaneda PA [facility] [place] [address] Scheduled Procedures Name Priority Associated Diagnoses Date/Ti [...] on filedocumented in this encounter Care Teams Research Food Technologist Relationship Specialty Start Date End Date Evelyne Hunt APRN [address] [place] [address] PCP - General Internal Medicine 09/23/17 documented as of this encounter
--- OUTSIDE RECORDS SUMMARY | 2023-12-01 02:13 | XMS_ITS | Encounter Summary ---
Author Organization [facility] [place] [address] Care Team Providers Care Filter Plant Operator Name Role Phone Evelyne Hunt Dat STEVEN Primary Care Provider [phone] Reason for Visit * Reason Comments Specialty Refill Management Encounter Details Date Type Department Care Team (Late st Contact Info) Description 04/18/2021 Specialty [place] [address] Gus Call, [facility] Social History Tobacco Use Types Packs/Day Years Used Date Smoking Tobacco: Former Cigarettes Q uit: 07/12/1977 Smokeless Tobacco: Never Alcohol Use Standard Drinks/Week Comments Never 0 (1 standard drink = 0.6 oz pur e alcohol) rare Sex and Gender Information Value Date Recorded Sex Assigned at Not on file Gender Identity Not on file Sexual Orientation Not on file documented as of this encounter Progress Notes * Gus Call [facility] - 04/18/2021 8:48 AM EST Clinical Management Plan: Refill Specialty Pharmacy Consultation; Gus Call [facility] Comprehensive Medication Management (CMM) Gabi Benitoyvonne Ms. Gabi Luna is a 60 y.o. [...] complete drug. Medication Reconciliation Discrepancies (compared to [facility] med list) No Specialty Pharmacy Refill Questionnaire Refill Questionnaire 04/18/2021 What is the name of the specialty medication you are refilling? Zejula Are you taking any new medications? No Please explain - Any new medical condition? No Any new allergies? No Any new side effects that are bothersome? No What date will you need this fill by? 04/26/2021 Adherence: Any missed doses? No Patient understands no changes to current drug regimen were made. Gus Call RPH 04/18/21 9:16 AM documented in this encounter Plan of Treatment Upcoming Encounters Date Type Department Care Team (Latest Contact Info) Description 12/25/2023 9:[address] [place] [address] Xavier Malhotra MD [facility] [place] [address] 12/29/2023 Hospital Encounter [place] [address] Xavier Malhotra MD [facility] [place] [address] Paroxysmal atrial fibrillation 12/29/2023 7:30 AM EDT - 12/29/2023 12:00 PM EDT Surgery [place] [address] Xavier Malhotra MD [facility] [place] [address] ELECTROPHYSIOLOGY PROCEDURE 01/14/2024 10:40 AM EDT Office Visit Cardiology at [address] [phone] Carmen Castaneda PA [facility] [place] [address] Scheduled Procedures Name Priority Associated Diagnoses Date/Ti tn TRANSESOPHAGEAL ECHO DURING CATH/EP PROCEDURE Paroxysmal atrial fibrillation 12/29/2023 7:30 AM EDT documented as of this encounter Goals Goal Patient Goal Type Associated Problems Recent Progress Patient-Stated? Author Home Medication Compliance and Understanding Patient Facing Action Plan Lani Love, [facility] Note: Maintain control of disease for as long as possible as assessed by tumor marker levels and scans in clinic every 3 to 6 months documented as of this encounter Visit Diagnoses Not on filedocumented in this encounter Care Teams Filter Plant Operator Relationship Specialty Start Date End Date Evelyne Hunt APRN [address] [place] [address] PCP - General Internal Medicine 09/23/17 documented as of this encounter
--- OUTSIDE RECORDS SUMMARY | 2023-12-01 02:13 | XMS_ITS | Encounter Summary ---
Author Organization [facility] [place] [address] Care Team Providers Care Plaster Whittler Name Role Phone Evelyne Hunt Dat STEVEN Primary Care Provider [phone] Encounter Details Date Type Department Care Team (Late st Contact Info) Description 09/15/2020 External Results Obstetrics and Gynecology at [place] [phone] Akanksha Rojas RN Social History Tobacco Use Types Packs/Day [...] 9:[address] [place] [address] Xavier Malhotra MD [facility] [place] [address] 12/29/2023 Hospital Encounter [place] [address] Xavier Malhotra MD [facility] [address] [place] [id number] Paroxysmal atrial fibrillation 12/29/2023 7:30 AM EDT - 12/29/2023 12:00 PM EDT Surgery [place] [address] Xavier Malhotra MD [facility] [place] [address] ELECTROPHYSIOLOGY PROCEDURE 01/14/2024 10:40 AM EDT Office Visit Cardiology at [address] [address] Carmen Castaneda PA [facility] [place] [address] Scheduled Procedures Name Priority Associated Diagnoses Date/Ti me TRANSESOPHAGEAL ECHO DURING CATH/EP PROCEDURE Paroxysmal atrial fibrillation 12/29/2023 7:30 AM EDT documented as of this encounter Goals Goal Patient Goal Type Associated Problems Recent Progress Patient-Stated? Author [facility] Medication Compliance and Understanding Patient Facing Action Plan Lani Love, [facility] Note: Maintain control of disease for as long as possible as assessed by tumor marker levels and scans in clinic every 3 to 6 months documented as of this encounter Procedures Procedure Name Priority Date/Time Associated Diagnosis Comments CBC (WITH DIFF) Routine 09/12/2020 CANCER ANTIGEN 125 Routine 09/12/2020 COMPREHENSIVE METABOLIC PANEL Routine 09/12/2020 documented in this encounter Results * Cancer Antigen 125 (09/12/2020) CA 125 5 Blood 09/12/2020 Natalie Vallejo MD CHEMISTRY ORDERABLES * Comprehensive metabolic panel (non-fasting) (09/12/2020) Glucose 101 Blood Urea Nitrogen 17 Creatinine 1.0 Est Glomerular Filtration Rate 56.75 Sodium 136 Potassium 4.0 Chloride 100 Carbon Dioxide 27 Calcium 9.1 Protein, Total 7.2 Albumin 4.0 Bilirubin, Total 0.8 Alkaline Phosphatase 96 Aspartate Aminotransferase 21 Alanine Aminotransferase 26 Blood 09/12/2020 Natalie Vallejo MD CHEMISTRY ORDERABLES * CBC (with Diff) (09/12/2020) White Blood Cell 7.05 Red Blood Cell 3.26 Hemoglobin 12.2 Hematocrit 34.9 Mean Cell Volume 107.1 Mean Cell Hemoglobin 37.4 Mean Cell Hemoglobin Concentration 35.0 RDW coefficient of variation 12.2 Platelet 208 Mean Platelet Volume 8.9 Neutrophil % 59.4 Lymph % 25.2 Monocyte % 10.2 Eosinophil Manual 3.8 Basophil % 1.1 Immature Gran % 0.3 ANC 4.18 Lymph Absolute Manual 1.78 Monocyte Abs 0.72 Eos Absolute Manual 0.27 Baso Absolute Manual 0.08 Blood 09/12/2020 Natalie Vallejo MD HEMATOLOGY ORDERABLE S documented in this encounter Visit Diagnoses Not on filedocumented in this encounter Care Teams Plaster Whittler Relationship Specialty Start Date End Date Evelyne Hunt APRN [address] [place] [address] PCP - General Internal Medicine 09/23/17 documented as of this encounter
--- OUTSIDE RECORDS SUMMARY | 2023-12-01 02:13 | XMS_ITS | Encounter Summary ---
Author Organization [facility] Address [facility] [place] [address] Care Team Providers Care Production Control Supervisor Name Role Phone Kiki Huntyce Dat STEVEN Primary Care Provider [phone] Encounter Details Date Type Department Care Team (Late st Contact Info) Description 03/06/2021 2:20 PM EST Office Visit Dermatology at [facility] [address] [place] [address] Akanksha Denny MD [facility] [place] [address] Inflamed seborrheic keratosis Social History Tobacco Use Types Packs/Day [...] as of this encounter Progress Notes * Akanksha Denny - 03/06/2021 2:20 PM EST Images from the original note were not included. DEPARTMENT OF DERMATOLOGY Medical Dermatology Clinic Provider: Akanksha Denny MD Patient's preferred name Ivana Preferred contact method for results [x]Phone [x]myD-H []Letter Detailed phone message OK? Yes Are there any other people with whom we may discuss your care? 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 Patient returns to clinic today for follow up of a rash and a lesion on the central forehead. - The lesion on the central forehead becomes really yucky and dry. She is interested in removal of this lesion. Last visit at Dermatology: 01/08/2021 Last visit with this provider: 01/08/2021 Medications: Reviewed in eD-H Allergies: Reviewed in eD-H Skin Examination: Focused skin examination of the central forehead was normal with the exception of the findings below. Assessment/Plan #. Inflamed Seborrheic Keratosis - Inflamed, stuck on, waxy papule on the central forehead. - Discussed benign nature of lesion(s) and provided reassurance. - Due to irritation present on today's exam and history of symptoms, discussed removal with cryotherapy. - Patient elects to proceed with cryotherapy today. Procedure: Destruction of lesion(s) with cryotherapy (LN2). Location(s): As noted above Number: 1 Discussed procedure and expectations including risks and benefits. Verbal consent obtained. Treatedwith LN2. There were no complications; Patient tolerated the procedure well. Post-procedure expectations and wound care were reviewed. #. Favor Allergic Contact Dermatitis vs. Drug Eruption - resolved Other: ??? N/A RTC: December 2021 for a FSE [x]Note routed to alumni secretary []Recall placed in scheduling system []Appointment scheduled at checkout Scribe attestation: Cee Abel has performed the documentation for this encounter in the presence of and acting as a scribe for Akanksha Denny MD. I performed the above scribed service and agree with the accuracy of the documentation in this encounter. Reviewed and signed by: Akanksha Denny MD Dermatology [facility] Patient seen and evaluated with staff network/telecom engineer: Jasmin Johnson MD Dermatology [facility] * Jasmin Johnson MD - 03/06/2021 2:20 PM EST I directly supervised Dr. Denny during this office visit. Dr. Denny presented the history and physical exam to me. I then saw and examined this patient with Dr. Denny . We reviewed the history andpertinent details and I confirmed the physical findings. I agree with the details of the history and physical exam as documented in Dr. Dennys note. JASMIN JOHNSON MD Staff Physician documented in this encounter Plan of Treatment Upcoming Encounters Date Type Department Care Team (Latest Contact Info) Description 12/25/2023 9:[address] [place] [address] Xavier Malhotra MD [facility] [place] [address] 12/29/2023 Hospital Encounter [place] [address] Xavier Malhotra MD [facility] [place] [address] Paroxysmal atrial fibrillation 12/29/2023 7:30 AM EDT - 12/29/2023 12:00 PM EDT Surgery [place] [address] Xavier Malhotra MD [facility] [place] [place] [address] ELECTROPHYSIOLOGY PROCEDURE 01/14/2024 10:40 AM EDT Office Visit Cardiology at [address] [address] Carmen Castaneda PA [facility] [place] [address] Scheduled Procedures Name Priority Associated Diagnoses Date/Ti me TRANSESOPHAGEAL ECHO DURING CATH/EP PROCEDURE Paroxysmal atrial fibrillation 12/29/2023 7:30 AM EDT documented as of this encounter Goals Goal Patient Goal Type Associated Problems Recent Progress Patient-Stated? Author [facility] Medication Compliance and Understanding Patient Facing Action Plan No Lani Vargas, [facility] Note: Maintain control of disease for as long as possible as assessed by tumor marker levels and scans in clinic every 3 to 6 months documented as of this encounter Visit Diagnoses Diagnosis Inflamed seborrheic keratosis Paroxysmal atrial fibrillation Atrial fibrillation Paroxysmal atrial fibrillation Atrial fibrillation documented in this encounter Care Teams Production Control Supervisor Relationship Specialty Start Date End Date Evelyne Hunt APRN [address] [place] [address] PCP - General Internal Medicine 09/23/17 documented as of this encounter
--- OUTSIDE RECORDS SUMMARY | 2023-12-01 02:13 | XMS_ITS | Encounter Summary ---
Author Organization [facility] [place] [address] Care Team Providers Care Stopper Setter Name Role Phone Kiki Huntyce Dat STEVNE Primary Care Provider [phone] Reason for Visit * Reason Comments Specialty Refill Management Encounter Details Date Type Department Care Team (Late st Contact Info) Description 02/12/2021 Specialty Pharmacy [place] [phone] Michael Boss CPHT Social History Tobacco Use Types Packs/Day [...] as of this encounter Progress Notes * Michael Boss - 02/12/2021 5:53 PM EDT Clinical Management Plan: Refill Specialty Pharmacy Consultation; Michael Boss Comprehensive Medication Management (CMM) Gabi Eber Cheryl Ms. Gabi Luna is a 60 [...] complete drug. Medication Reconciliation Discrepancies (compared to [facility] med list) No Specialty Pharmacy Refill Questionnaire Refill Questionnaire 02/12/2021 What is the name of the specialty medication you are refilling? Zejula Are you taking any new medications? No Please explain - Any new medical condition? No Any new allergies? No Any new side effects that are bothersome? No What date will you need this fill by? 02/19/2021 Adherence: Any missed doses? No Patient understands no changes to current drug regimen were made. Michael Boss 02/12/21 5:55 PM documented in this encounter Plan of Treatment Upcoming Encounters Date Type Department Care Team (Latest Contact Info) Description 12/25/2023 9:[address] [place] [address] Xavier Malhotra MD [facility] [place] [address] 12/29/2023 Hospital Encounter Electrophys[place] [address] Xavier Malhotra MD [facility] [place] [address] Paroxysmal atrial fibrillation 12/29/2023 7:30 AM EDT - 12/29/2023 12:00 PM EDT Surgery Electrophys[place] [address] Xavier Malhotra MD [facility] [place] [address] ELECTROPHYSIOLOGY PROCEDURE 01/14/2024 10:40 AM EDT Office Visit Cardiology at [address] [address] Carmen Castaneda PA [facility] [place] [address] Scheduled Procedures Name Priority Associated Diagnoses Date/Ti ga TRANSESOPHAGEAL ECHO DURING CATH/EP PROCEDURE Paroxysmal atrial fibrillation 12/29/2023 7:30 AM EDT documented as of this encounter Goals Goal Patient Goal Type Associated Problems Recent Progress Patient-Stated? Author [facility] Home Medication Compliance and Understanding Patient Facing Action Plan No Lani Vargas, [facility] Note: Maintain control of disease for as long as possible as assessed by tumor marker levels and scans in clinic every 3 to 6 months documented as of this encounter Visit Diagnoses Not on filedocumented in this encounter Care Teams Stopper Setter Relationship Specialty Start Date End Date Evelyne Hunt APRN [address] [place] [address] PCP - General Internal Medicine 09/23/17 documented as of this encounter
--- OUTSIDE RECORDS SUMMARY | 2023-12-01 02:13 | XMS_ITS | Encounter Summary ---
Author Organization [facility] [place] [address] Care Team Providers Care Event Producer Name Role Phone Evelyne Hunt APRN Primary Care Provider [phone] Encounter Details Date Type Department Care Team (Late st Contact Info) Description 04/23/2021 Telephone [place] [address] Ludy Valencia Social History Tobacco Use Types Packs/Day Years [...] encounter Miscellaneous Notes * Telephone Encounter - Ludy Valencia - 04/23/2021 2:28 PM EST Gabi Luna [id number] Diagnosis/Indication: Encounter for screening for malignant neoplasm of colon / Nonrheumatic aortic(valve) stenosis 1. Have you ever had a/an Colonoscopy before? Yes: Date Maybe 10 years ago?? Unsure. If yes, did you have any problems with the procedure? No What type of sedation was used: Other: unsure 2. Do you take any blood thinners or have you been diagnosed with a bleeding disorder that increases your risk of bleeding with procedures? No 3. Do you have a Pacemaker or Defibrillator device? No 4. Are you a diabetic? No 5. Do you have any Allergies to Eggs, Latex or Medications? Yes: E-DH 6. Do you take any Oral Iron Supplements (Including multi-vitamins)? No 7. Do you have a history of three or more abdominal surgeries? Yes 8. Have you had a problem with sedation or anesthesia? No 9. Do you use a c-pap machine or oxygen tank? Neither 10. Do you take prescription narcotic pain medications, including suboxone or methodone? No 11. Do you have a preference regarding the gender of your provider? No Preference 12. Is there any other information you would like to us to note for the provider and nursing team who will perform your case? Yes: review cancer & other department notes 13. Say to patient: You must have a responsible constitution party who will drive you to your procedure, stay [place] for the entire duration of your procedure, and drive you home from your procedure? *Please Verify the height and weight, and adjust if height and/or weight have changed* Estimated body mass index is 21.42 kg/m?? as calculated from the following: Height as of 09/22/20: 166.4 cm (5' 5.51). Weight as of 09/22/20: 59.3 kg (130 lb 11.7 oz). Age:60 y.o. documented in this encounter Plan of Treatment Upcoming Encounters Date Type Department Care Team (Latest Contact Info) Description 12/25/2023 9:[address] [place] [address] Xavier Malhotra MD [facility] [place] [address] 12/29/2023 Hospital Encounter [place] [address] Xavier Malhotra MD [facility] [place] [address] Paroxysmal atrial fibrillation 12/29/2023 7:30 AM EDT - 12/29/2023 12:00 PM EDT Surgery [place] [address] Xavier Malhotra MD [facility] [place] [address] ELECTROPHYSIOLOGY PROCEDURE 01/14/2024 10:40 AM EDT Office Visit Cardiology at [address] [phone] Carmen Castaneda PA [facility] [place] [address] Scheduled Procedures Name Priority Associated Diagnoses Date/Ti me TRANSESOPHAGEAL ECHO DURING CATH/EP PROCEDURE Paroxysmal atrial fibrillation 12/29/2023 7:30 AM EDT documented as of this encounter Goals Goal Patient Goal Type Associated Problems Recent Progress Patient-Stated? Author [facility] Home Medication Compliance and Understanding Patient Facing Action Plan No Lani Vargas, [facility] Note: Maintain control of disease for as long as possible as assessed by tumor marker levels and scans in clinic every 3 to 6 months documented as of this encounter Visit Diagnoses Not on filedocumented in this encounter Care Teams Event Producer Relationship Specialty Start Date End Date Evelyne Hunt APRN [address] [place] [address] PCP - General Internal Medicine 09/23/17 documented as of this encounter
--- OUTSIDE RECORDS SUMMARY | 2023-12-01 02:13 | XMS_ITS | Encounter Summary ---
Author Organization [facility] Address [facility] [place] [address] Care Team Providers Care Engineering Librarian Name Role Phone Evelyne Hunt Dat STEVEN Primary Care Provider [phone] Encounter Details Date Type Department Care Team (Late st Contact Info) Description 09/26/2020 Telephone Gyne[place] [phone] Natalie Vallejo MD [facility] [place] [address] Social History Tobacco Use Types Packs/Day Years [...] encounter Miscellaneous Notes * Telephone Encounter - Jazmine Virk - 09/26/2020 12:48 PM EDT ----- Message from Natalie Vallejo MD sent at 09/25/2020 3:56 PM EDT ----- Please refer to IR for port removalty * Telephone Encounter - Jazmine Virk - 09/26/2020 12:48 PM EDT Port removable. documented in this encounter Plan of Treatment Upcoming Encounters Date Type Department Care Team (Latest Contact Info) Description 12/25/2023 9:[address] Scan at [place] [phone] Xavier Malhotra MD [facility] [place] [address] 12/29/2023 Hospital Encounter Electrophysiology Lab at [address] Xavier Malhotra MD [facility] [place] [address] Paroxysmal atrial fibrillation 12/29/2023 7:30 AM EDT - 12/29/2023 12:00 PM EDT Surgery [place]rophys[place] [phone] Xavier Malhotra MD [facility] [place] [address] ELECTROPHYSIOLOGY PROCEDURE 01/14/2024 10:40 AM EDT Office Visit Cardiology at [place] [phone] Carmen Castaneda PA [facility] [place] [address] Scheduled Procedures Name Priority Associated Diagnoses Date/Ti me TRANSESOPHAGEAL ECHO DURING CATH/EP PROCEDURE Paroxysmal atrial fibrillation 12/29/2023 7:30 AM EDT documented as of this encounter Goals Goal Patient Goal Type Associated Problems Recent Progress Patient-Stated? Author DH [place] Medication Compliance and Understanding Patient Facing Action Plan Lani Love, [facility] Note: Maintain control of disease for as long as possible as assessed by tumor marker levels and scans in clinic every 3 to 6 months documented as of this encounter Visit Diagnoses Diagnosis Malignant neoplasm of ovary, unspecified laterality Pelvic mass in female Abdominal or pelvic swelling, mass or lump, unspecified site Paroxysmal atrial fibrillation Atrial fibrillation Paroxysmal atrial fibrillation Atrial fibrillation documented in this encounter Care Teams Engineering Librarian Relationship Specialty Start Date End Date Evelyne Hunt APRN [address] [place] [address] PCP - General Internal Medicine 09/23/17 documented as of this encounter
--- OUTSIDE RECORDS SUMMARY | 2023-12-01 02:13 | XMS_ITS | Encounter Summary ---
Author Organization [facility] [place] [address] Care Team Providers Care Fiscal Economist Name Role Phone Kiki Huntyce Dat STEVEN Primary Care Provider [phone] Reason for Visit * Reason Comments Medication Refill Encounter Details Date Type Department Care Team (Late st Contact Info) Description 10/20/2020 Specialty Pharmacy [place] [phone] Lizz Jones [facility] Social History Tobacco [...] this encounter Progress Notes * Lizz Jones [facility] - 10/20/2020 9:13 AM EDT Clinical Management Plan: Refill Specialty Pharmacy Consultation; Lizz Jones [facility] Comprehensive Medication Management (CMM) Gabi Benitoyvonne [...] If yes, should the medication be held: Yes Assessment and Recommendations: Title Recipient: beneficiary Provider: plan sponsor pharmacist Visit Type: [facility] Follow[place] Method of Contact: by telephone Cognitive Ability: [...] to [facility] med list) -Gabi is working with Drake HORTA and has added Vit B, liposomal and Copu10 Specialty Pharmacy Refill Questionnaire Refill Questionnaire 10/20/2020 What is the name of the specialty medication you are refilling? Zejula Are you taking any new medications? Yes Please explain working with sharif HORTA, added Vit B, Liposomal and Copu10 Any new medical condition? No Any new allergies? No Any missed doses since your last fill? No Any new side effects that are bothersome? No What date will you need this fill by? 10/25/2020 Adherence: Medication Adherence Patient reported X missed doses in the last month: 0 Any gaps in refill history greater than 2 weeks in the last 3 months: no Demonstrates understanding of importance of adherence: yes Informant: patient Reliability of informant: reliable Provider-estimated medication adherence level: 90-100% Reasons for non-adherence: no problems identified Adherence tools used: cell phone Support network for adherence: family member Confirmed plan for next specialty medication refill: delivery by pharmacy Pt understands no changes to current drug regimen were made at the appointment and that [facility] is providing recommendations (summary located at top of note) for provider review and follow up. Lizz Jones RPH 10/20/20 9:16 AM documented in this encounter Plan of Treatment Upcoming Encounters Date Type Department Care Team (Latest Contact Info) Description 12/25/2023 9:[address] Scan at [place] [phone] Xavier Malhotra MD [facility] [place] [address] 12/29/2023 Hospital Encounter [place] [address] Xavier Malhotra MD [facility] [place] [address] Paroxysmal atrial fibrillation 12/29/2023 7:30 AM EDT - 12/29/2023 12:00 PM EDT Surgery Electrophysiology Lab at [place] [phone] Xavier Malhotra MD [facility] [place] [place] [address] ELECTROPHYSIOLOGY PROCEDURE 01/14/2024 10:40 AM EDT Office [place] [address] Carmen Castaneda PA [facility] [place] [address] Scheduled Procedures Name Priority Associated Diagnoses Date/Ti [...] on filedocumented in this encounter Care Teams Fiscal Economist Relationship Specialty Start Date End Date Evelyne Hunt APRN [address] [place] [address] PCP - General Internal Medicine 09/23/17 documented as of this encounter
--- OUTSIDE RECORDS SUMMARY | 2023-12-01 02:13 | XMS_ITS | Encounter Summary ---
Author Organization [facility] [place] [address] Care Team Providers Care Heat Treating Operator Name Role Phone Kiki Huntyce Dat STEVEN Primary Care Provider [phone] Encounter Details Date Type Department Care Team (Late st Contact Info) Description 05/07/2021 Telephone Gynecology [place] [phone] Sayda Doan RN Social History Tobacco Use [...] Telephone Encounter - Sayda Doan RN - 05/10/2021 4:10 PM EST Called patient and reviewed lab results. Her creatinine is a little elevated at 1.2 and alk phos isat 118. Assessed patient's hydration status. She reports she drinks half a gallon of water a day. Advised patient to drink at least 8, 8oz glasses of water a day. Informed her the labs would be reviewed with Dr. Vallejo. Patient has an appointment with Dr. Vallejo on 05/14/21. She denies any furtherquestions or concerns at this time. * Telephone Encounter - Sayda Doan RN - 05/10/2021 12:42 PM EST Called and spoke to [facility]. Requested they send the patient's results to us at [phone]. * Telephone Encounter - Sayda Doan RN - 05/07/2021 9:21 AM EST Called [facility] to request lab results. They don't have results since 03/22/21. Called patient. She states she was going to get her blood drawn today, however, she will not be able to go today due to weather. She will try to get this done in the next couple days. Patient asks how long she is going to be taking niraparib. See in last office visit note, patient was supposed to see Dr. Vallejo via telehealth in three months. She is overdue for this visit. Will send message to [facility] to get patient scheduled. Patient verbalized understanding of this plan and denies any further questions or concerns at this time. documented in this encounter Plan of Treatment Upcoming Encounters Date Type Department Care Team (Latest Contact Info) Description 12/25/2023 9:[address] [place] [address] Xavier Malhotra MD [facility] [place] [address] 12/29/2023 Hospital Encounter Electrophysiology [place] [phone] Xavier Malhotra MD [facility] [place] [address] Paroxysmal atrial fibrillation 12/29/2023 7:30 AM EDT - 12/29/2023 12:00 PM EDT Surgery Electrophysiology [place] [address] Xavier Malhotra MD [facility] [place] [address] ELECTROPHYSIOLOGY PROCEDURE 01/14/2024 10:40 AM EDT Office Visit Cardiology at [address] [phone] Carmen Castaneda PA [facility] [place] [address] Scheduled Procedures Name Priority Associated Diagnoses Date/Ti me TRANSESOPHAGEAL ECHO DURING CATH/EP PROCEDURE Paroxysmal atrial fibrillation 12/29/2023 7:30 AM EDT documented as of this encounter Goals Goal Patient Goal Type Associated Problems Recent Progress Patient-Stated? Author DH Home Medication Compliance and Understanding Patient Facing Action Plan No Lani Vargas, [facility] Note: Maintain control of disease for as long as possible as assessed by tumor marker levels and scans in clinic every 3 to 6 months documented as of this encounter Visit Diagnoses Not on filedocumented in this encounter Care Teams Heat Treating Operator Relationship Specialty Start Date End Date Evelyne Hunt APRN [address] [place] [address] PCP - General Internal Medicine 09/23/17 documented as of this encounter
--- OUTSIDE RECORDS SUMMARY | 2023-12-01 02:13 | XMS_ITS | Encounter Summary ---
Author Organization [facility] Address [facility] [place] [address] Care Team Providers Care Supervisor Self Service Store Name Role Phone MarileeEvelyne APRN Primary Care Provider [phone] Reason for Visit * Reason Comments TeleHealth Encounter Details Date Type Department Care Team (Latest Contact Info) Description 09/25/2020 3:20 PM EDT TH Visit (TeleHealth) Gynecology [place] [address] Natalie Vallejo MD [facility] [place] [address] History of ovarian cancer; Chemotherapy-induced neuropathy Social History Tobacco Use Types Packs/Day Years [...] Sign Reading Time Taken Comments Blood Pressure - - Pulse - - Temperature - - Respiratory Rate - - Oxygen Saturation - - Inhaled Oxygen Concentration - - Weight 59.3 kg (130 lb 11.7 oz) 09/22/2020 3:40 PM EDT Height 166.4 cm (5' 5.51) 09/22/2020 3:40 PM ED T Body Mass Index 21.42 09/22/2020 3:40 PM EDT documented in this encounter Progress Notes * Joy Nick LNA - 09/25/2020 3:20 PM EDT Patient reached for review of chart prior to telehealth vitis. The following information was reviewed/obtained per protocol. _XX__ Confirmed patient name and date of . _XX__ This a video visit and the Patient has a video capability. _XX__ Patient location at time of visit. [place] _XX___ [place] _XX__ Reviewed medications, allergies, pain, pharmacy, education _XX__ Documented height & weight the same as it has been Other information or concerns: * Natalie Vallejo MD - 09/25/2020 3:20 PM EDT Gynecologic Oncology-Telehealth Encounter. ?? Reason/purpose for telehealth encounter: ovarian cancer, niraparib followup Patient's physical location at the time of this telehealth/telephone visit: Home, in [place]. ?? [phone] ?? Summary of conversation, decision making, and plan: ovarian cancer on maintenance niraparib She is back on niraparib at 100 mg each night. She has been feeling well overall aside from some ongoing fatigue. She continues to have issues with her cardiac arrhythmia and had a failed ablation. She has a good plaster block layer that she is working with currently. She would like to have her port removed. She has had both of her Pfizer COVID vaccines. Her neuropathy continues. Results for SRIDHAR GABI WARREN ( ) as of 09/25/2020 15:40 Ref. Range 09/12/2020 00:00 WBC Unknown 7.05 RBC Unknown 3.26 Hemoglobin Unknown 12.2 Hematocrit Unknown 34.9 MCV Unknown 107.1 MCH Unknown 37.4 MCHC Unknown 35.0 RDWCV Unknown 12.2 Platelets Unknown 208 MPV Unknown 8.9 Neutr Abs (ANC) Unknown 4.18 Neutrophils % Unknown 59.4 Immature Gran % Unknown 0.3 Lymphocytes % Unknown 25.2 Monocytes % Unknown 10.2 Basophils % Unknown 1.1 Monocyte Abs Unknown 0.72 Eosinophil % Unknown 3.8 Lymphocyte Abs Unknown 1.78 Eosinophil Abs Unknown 0.27 Basophil Abs Unknown 0.08 Sodium Unknown 136 Potassium Unknown 4.0 Chloride Unknown 100 CO2 Unknown 27 BUN Unknown 17 Creatinine Unknown 1.0 Estimated GFR Unknown 56.75 Calcium Unknown 9.1 Glucose Lvl Unknown 101 Total Protein Unknown 7.2 Albumin Unknown 4.0 Total Bilirubin Unknown 0.8 Alk Phos Unknown 96 AST Unknown 21 ALT Unknown 26 CA 125 Unknown 5 ?? Items to Complete - (To-Do List): 1. Tolerating PARP well. Continue at 100 mg at night. 2. adjust [facility] labs to every 6 weeks. 3. Port removal referral 4. followup via telehealth in 3 months but with indefinite q 6 week labs. documented in this encounter Plan of Treatment Upcoming Encounters Date Type Department Care Team (Latest Contact Info) Description 12/25/2023 9:[address] Scan at [place] [phone] Xavier Malhotra MD [facility] [place] [address] 12/29/2023 Hospital Encounter [place] [address] Xavier Malhotra MD [facility] [place] [address] Paroxysmal atrial fibrillation 12/29/2023 7:30 AM EDT - 12/29/2023 12:00 PM EDT Surgery Electrophysiology Lab at [address] Xavier Malhotra MD [facility] [place] [address] ELECTROPHYSIOLOGY PROCEDURE 01/14/2024 10:40 AM EDT Office Visit Cardiology at [place] [phone] Carmen Castaneda PA 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
--- OUTSIDE RECORDS SUMMARY | 2023-12-01 02:13 | XMS_ITS | Encounter Summary ---
Author Organization [facility] Address [facility] [place] [address] Care Team Providers Care Linseed Oil Order Filler Name Role Phone Evelyne Hunt Dat STEVEN Primary Care Provider [phone] Encounter Details Date Type Department Care Team (Latest Contact Info) Description 12/01/2020 11:20 AM EDT TH Visit (TeleHealth) Gy[place] [phone] Pasquale Mederos MD [facility] [place] [address] Ovarian cancer, unspecified laterality; PAF (paroxysmal atrial fibrillation); Hives Social History Tobacco Use Types Packs/Day Years [...] as of this encounter Progress Notes * Eleni Marcial LNA - 12/01/2020 11:20 AM EDT Patient not reached to review medications and allergies prior to telehealth visit. Left message of reminder for upcomming telehealth visit. * Pasquale Mederos MD - 12/01/2020 11:20 AM EDT Gynecologic Oncology-Telehealth Encounter. ?? Reason/purpose for telehealth encounter: ovarian cancer, niraparib followup Patient's physical location at the time of this telehealth/telephone visit: Home, in [place]. ?? [phone] ?? Summary of conversation, decision making, and plan: ovarian cancer on maintenance niraparib She continues on niraparib at 100 mg each night. She has been feeling well overall and feels very well from a cancer standpoint. She has had 2 episodes of hives. She has not had this before. She had been using some naturopathic supplements and has since stopped these. She also had an episode of tachycardia with work and wonders if this was from work stress exacerbating her underlying arrhythmia vs anxiety. She is worried about how all this stress could be impacting her cancer. Her also fell off of a roof and fractured a vertebra. He is overall ok. October and November labs are personally reviewed and are all good. Her latest CA125 = 7 on 11/15. ?? Items to Complete - (To-Do List): 1. Tolerating PARP well. Continue at 100 mg at night. 2. continue [facility] labs to every 6 weeks. 3. New hives: suspect allergic reaction but unclear of the trigger. Recommend a referral to an assembler garment form. She prefers to see a fiberglass auto body repairer first as it is already scheduled and then will see what they think. 4. followup via telehealth in 3 months but with indefinite q 6 week labs. 5. Recommend seeing a counselor to help with stress management or decreasing her job duties. She knows she needs to make a job change and will figure out how to make this happen. PASQUALE MEDEROS MD documented in this encounter Plan of Treatment Upcoming Encounters Date Type Department Care Team (Latest Contact Info) Description 12/25/2023 9:[address] [place] [address] Xavier Malhotra MD [facility] [place] [address] 12/29/2023 Hospital Encounter [place] [phone] Xavier Malhotra MD [facility] [address] [place] [address] Paroxysmal atrial fibrillation 12/29/2023 7:30 AM EDT - 12/29/2023 12:00 PM EDT Surgery [place] [phone] Xavier Malhotra MD [facility] [place] [address] ELECTROPHYSIOLOGY PROCEDURE 01/14/2024 10:40 AM EDT Office Visit Cardiology at [place] [phone] Carmen Castaneda PA [facility] [place] [address] Scheduled Procedures Name Priority Associated Diagnoses Date/Ti me TRANSESOPHAGEAL ECHO DURING CATH/EP PROCEDURE Paroxysmal atrial fibrillation 12/29/2023 7:30 AM EDT documented as of this encounter Goals Goal Patient Goal Type Associated Problems Recent Progress Patient-Stated? Author [facility] Medication Compliance and Understanding Patient Facing Action Plan No Lani Vargas, [facility] Note: Maintain control of disease for as long as possible as assessed by tumor marker levels and scans in clinic every 3 to 6 months documented as of this encounter Visit Diagnoses Diagnosis Ovarian cancer, unspecified laterality PAF (paroxysmal atrial fibrillation) Atrial fibrillation Hives Urticaria, unspecified Paroxysmal atrial fibrillation Atrial fibrillation Paroxysmal atrial fibrillation Atrial fibrillation documented in this encounter Care Teams Linseed Oil Order Filler Relationship Specialty Start Date End Date Evelyne Hunt APRN [address] [place] [address] PCP - General Internal Medicine 09/23/17 documented as of this encounter
--- OUTSIDE RECORDS SUMMARY | 2023-12-01 02:13 | XMS_ITS | Encounter Summary ---
Author Organization [facility] [place] [address] Care Team Providers Care Electroplater Name Role Phone Evelyne Hunt APRN Primary Care Provider [phone] Reason for Referral * Diagnostic Test (Routine) - Closed Specialty Diagnoses / Procedures Referred By Contac t Referred To Contact Radiology Diagnoses Ovarian cancer, unspecified laterality Procedures IR Mediport Natalie Felix MD [facility] [place] [address] [facility] [place] [address] Referral ID Status Reason Start Date Expiration Date V isits Requested Visits Authorized [id number] Closed Specialty Service Requested 09/26/2020 03/28/2022 1 1 Reason for Visit * Diagnostic Test (Routine) - Closed Specialty Diagnoses / Procedures Referred By Contac t Referred To Contact Radiology Diagnoses Ovarian cancer, unspecified laterality Procedures IR Mediport Natalie Felix MD [facility] [place] [address] [facility] [place] [address] Referral ID Status Reason Start Date Expiration Date V isits Requested Visits Authorized [id number] Closed Specialty Service Requested 09/26/2020 03/28/2022 1 1 Encounter Details Date Type Department Care Team (Latest Contact Info) Description 10/04/2020 12:29 PM EDT - 10/04/2020 11:59 PM EDT Hospital [place] [address] Natalie Vallejo MD [facility] [place] [address] Ovarian cancer, lateral, stage IIIb high-grade serous/endometrioid , 07/20/2019 s/p FREDI/BSO/oment/PPALN D/RSReanstomosis; Ovarian cancer, unspecified laterality Discharge Disposition: Home [...] Sign Reading Time Taken Comments Blood Pressure 136/88 10/04/2020 2:27 PM EDT Pulse 70 10/04/2020 2:15 PM EDT Temperature 36.8 ??C (98.2 ??F) 10/04/2020 2:27 PM ED T Respiratory Rate 16 10/04/2020 2:27 PM EDT Oxygen Saturation 99% 10/04/2020 2:27 PM EDT Inhaled Oxygen Concentration - - Weight - - Height - - Body Mass Index - - documented in this encounter Discharge Instructions * Discharge Instructions* Erick Del Rosario RN - 10/04/2020 2:30 PM EDT Images from the original note were not included. [facility] Vascular and Interventional Radiology Discharge Instructions for your Chest Port Removal Activity: ??? Relax for the next 24 hours Diet: ??? Drink plenty of fluids. ??? Resume your regular diet Bandage: There is a sterile dressing consisting of small gauze with a clear dressing (Tegaderm or IV 3000). This dressing should be left in place for 48 hours. If the clear dressing becomes loose youshould place tape over the edges to secure it in place. No tub baths, swimming or whirlpools for 1 week. No showering for 48 hours. Note: If you have steri-strips beneath your dressing, simply allow them to fall off. Do not peel them off. There may be Montura-arroyo (skin glue) also, allow this to flake off. Do not pick this off. Bathing: Do not take a shower until 48 hours after your port is removed; after this time you may shower with the dressing in place, then remove it and pat your skin dry. After 48 hours, we recommend that you cover the area with THE AQUA GUARD PROVIDED for 1 week while showering, facing away from the shower stream. You may use a bandaid to cover the site after the 48 hours are up if there is any drainage. No tub baths, whirlpools or swimming for one week following port removal. Pain: Apply ice bag to site (s) at 30 minute intervals (30 minutes on and 30 minutes off) for 24 hours?? . May use as needed for pain and/or bruising after 24 hours. When to call your healthcare provider: ??? If you notice bleeding from the incision on your chest, you should lie flat and apply firm pressure over the site for 10-15 minutes, keeping the site covered and call your doctor. If you are still bleeding after 10-15 minutes, reapply pressure, and have someone drive you to the nearest Emergency Department, or call 911. ??? If you develop pain, redness, drainage or swelling at or around chest incision site. ??? If you develop a fever equal to or greater than 101 degrees Fahrenheit. When to call the Interventional Radiology Department: Please call with any questions or concerns. If it is during regular office hours, please call [phone]. If it is after regular office hours, or on weekends or holidays, please call [phone] and ask to speak to the Dairy Processing Supervisor paper control clerk for Interventional Radiology. You have received medication during your procedure to help lessen anxiety and keep you comfortable.These medications affect judgement and reaction time. We recommend that you do not drive, operate equipment, sign any important documents, or smoke unattended for 24 hours following your procedure. Because of the sedation, be careful on stairs, as you may be unsteady on your feet. You may resume your regular diet as tolerated. IV site -- slight redness, or tenderness is normal, you can use a warm compress. If tenderness and redness increases or foul drainage occurs, please contact your M. D. Revised 02/04/19 documented in this encounter Medications at Time of Discharge Medication Sig Dispensed Refills Start Date End Date buPROPion XL (Wellbutrin XL) 300 mg Tablet Extended Release 24 hr TK 1 T PO QAM 10/01/2019 niraparib (Zejula) 100 mg Capsule Take 100 mg by mouth. 04/24/2021 LORazepam (Ativan) 0.5 mg Tablet Take 0.5 mg by mouth as needed. 12/14/2021 ibuprofen (Advil;Motrin) 800 mg Tablet Take 800 mg by mouth as needed. 12/14/2021 hydroCHLOROthiazide (Hydrodiuril) 25 mg Tablet Take 25 mg by mouth. 022 HYDROcodone-acetaminoph en (Mills) 5-325 mg Tablet Take 325 mg by mouth as needed. 12/14/2021 dilTIAZem CD (Cardizem CD) 360 mg Capsule, Sust. Release 24 hr Take 360 mg by mouth daily. Take 1 tablet by mouth daily. 09/20/2021 metoprolol succinate XL (Toprol-XL) 25 mg Tablet Sustained Release 24 hrIndications:Hypertens ion, unspecified type,SVT (supraventricular tachycardia) Take 1 tablet by mouth daily. 30 tablet 12 02/25/2020 03/21/2021 clobetasoL (TEMOVATE) 0.05 % Ointment Apply to the affected area daily at night for 6 to 12 weeks and then one to three times per week for maintenance. Apply sparingly (a dot 3 mm wide) in a thin film over the affected area. 15 g 3 12/13/2019 05/14/2021 ergocalciferol, vitamin D2, (VITAMIN D ORAL) Take by mouth daily. 02/06/2022 atorvastatin (LIPITOR) 10 mg Tablet Take 10 mg by mouth daily. 09/20/2021 documented as of this encounter Progress Notes * Kate Borjas RN - 10/04/2020 11:59 PM EDT Interventional and Vascular Radiology Post-Procedure Call Name: Gabi Waller Age: 60 y.o. Sex: Female Date of : 1960 (home) Telephone Information: PCP Evelyne Hunt APRN [phone] Date/Time of call: October 05, 2020/3:22 PM Procedure: Mediport Removal Procedural Provider: Forauer Contact with patient or if not, with whom? patient Message left on answering machine? [X] N/A Are you having pain related to your procedure now? [X] No Lung bx: Any shortness of breath, coughing up blood or chest pain? na Liver bx: Any pain a biopsy site:na Are you having any swelling or bleeding from the site? No Are there any improvement in your symptoms? na Are you having any other problems related to your procedure? no Did you understand the discharge instructions given and do you have any questions? No questions Do you have any comments about your Nurse or Provider or the care you received? no Comments (if applicable): * Gertrude Whitlock RN - 10/04/2020 1:34 PM EDT ANGIO NURSING DATABASE Name: GABI WALLER Date of : 1960 AGE: 60 y.o. Address: [address] [address] (home) Mobile: Telephone Information: Referring Provider: Natalie Vallejo REASON FOR VISIT: Order Questions Answers Where will study be performed? [facility] Radiology [120] Reason for exam and clinical history: port removal Exam/Procedure requested: port removal Is the patient on anticoagulant / antiplatelet therapy ? No Allergies Allergen Reactions ??? Paroxetine ??? Penicillins Anaphylaxis ??? Sertraline ??? Venlafaxine ??? Taxol [Paclitaxel] Palpitations and Other (See Comments) 17 mls into Taxol C/O of palpitations/lower back pain.Drug stopped. Benadryl/Pepcid/Ativan given. Was able to start drug at half rate when symptoms subsided and increased rate every 30-60 mins. Was able to complete drug. Pertinent PMH: Patient Active Problem List Diagnosis Code ??? Hypothyroidism E03.9 ??? SVT (supraventricular tachycardia) I47.1 ??? Bicuspid aortic valve Q23.1 ??? Chest pain R07.9 ??? Aortic valve stenosis I35.0 ??? HTN (hypertension) I10 ??? 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 BRCA negative Z13.71 Date/Procedure Meds Given/Comments 08/20/19 Mediport placement Clindamycin 900 mg IV, Fentanyl 150 mcg IV, Versed 3 mg IV. Pt tolerated procedure well. 10/04/20 Mediport Removal Local Only ? 13:32 to procedure room 5 via stretcher. Maintained on stretcher. All monitors, O2, safety strap inplace. Meds per protocol. Laboratory Results: Lab Results Component Value Date INR 1.0 08/08/2020 Lab Results Component Value Date CREATININE 1.0 09/12/2020 Lab Results Component Value Date K 4.0 09/12/2020 Lab Results Component Value Date PLATELET 208 09/12/2020 documented in this encounter H&P Notes * Laci Manrique APRN - 10/03/2020 4:36 PM EDT INTERVENTIONAL RADIOLOGY FOCUSED H&P and PRE-PROCEDURE NOTE: PCP: Evelyne Hunt APRN Referring Provider: Natalie Vallejo Planned Procedure: Planned procedure: chest port removal Chest port removal Procedure request received through Interventional Radiology eDH order queue. Order Questions Answers Where will study be performed? [facility] Radiology [120] Reason for exam and clinical history: port removal Exam/Procedure requested: port removal Is the patient on anticoagulant / antiplatelet therapy ? No Presenting Diagnosis/ Complaint: Gabi Waller is a 60 y.o. female with ovarian cancer. Treatment complete and chest port, placed 08/2019, is no longer needed. Past Medical/Surgical History: Patient Active Problem List Diagnosis Code ??? [...] APPENDECTOMY 08/26/2013 ??? SECTION ??? IR MEDIPORT PLACEMENT/EXCHANGE 08/20/2019 IR Mediport Placement 08/20/2019 Jourdan Lopez PA [facility] INTERVENTIONL RAD ??? PRO GINA SALP-OOPH W/OMENTECT, FREDI, RAD DISSECT N/A 07/20/2019 @HYSTERECTOMY, FREDI, BSO, DEBULKING (WRVU 34.13) performed by Natalie Vallejo MD at [facility] MAIN OR Medications: Current Outpatient Medications on File Prior to Encounter Medication Sig Dispense Refill ??? niraparib (Zejula) 100 mg Capsule Take 100 mg by mouth. ??? LORazepam (Ativan) 0.5 mg Tablet Take 0.5 mg by mouth as needed. ??? ibuprofen (Advil;Motrin) 800 mg Tablet Take 800 mg by mouth as needed. ??? hydroCHLOROthiazide (Hydrodiuril) 25 mg Tablet Take 25 mg by mouth. ??? HYDROcodone-acetaminophen (Mills) 5-325 mg Tablet Take 325 mg by mouth as needed. ??? dilTIAZem CD (Cardizem CD) 360 mg Capsule, Sust. Release 24 hr Take 360 mg by mouth daily. Take1 tablet by mouth daily. ??? metoprolol succinate XL (Toprol-XL) 25 mg Tablet Sustained Release 24 hr Take 1 tablet by mouthdaily. 30 tablet 12 ??? clobetasoL (TEMOVATE) 0.05 % Ointment Apply to the affected area daily at night for 6 to 12 weeks and then one to three times per week for maintenance. Apply sparingly (a dot 3 mm wide) in a thinfilm over the affected area. 15 g 3 ??? buPROPion XL (Wellbutrin XL) 300 mg Tablet Extended Release 24 hr TK 1 T PO QAM ??? ergocalciferol, vitamin D2, (VITAMIN D ORAL) Take by mouth daily. ??? atorvastatin (LIPITOR) 10 mg Tablet Take 10 mg by mouth daily. No current facility-administered medications on file prior to encounter. Allergies: Paroxetine, Penicillins, Sertraline, Venlafaxine, and Taxol [paclitaxel] Social History and Habits: Social History Socioeconomic History ??? Marital status: Spouse name: Not on file ??? Number of children: Not on file ??? Years of education: Not on file ??? Highest education level: Not on file Occupational History ??? Not on file Tobacco Use ??? Smoking status: Former Smoker Quit date: 07/12/1977 Years since quittin.2 ??? Smokeless tobacco: Never Used Vaping Use ??? Vaping Use: Never used Substance and Sexual Activity ??? Alcohol use: Never Comment: rare ??? Drug use: Not Currently ??? Sexual activity: Not on file Other Topics Concern ??? Not on file Social History Narrative ??? Not on file Social Determinants of Health Financial Resource Strain: ??? Difficulty of Paying Living Expenses: Food Insecurity: ??? Worried About Running Out of Food in the Last Year: ??? Ran Out of Food in the Last Year: Transportation Needs: ??? Lack of Transportation (Medical): ??? Lack of Transportation (Non-Medical): Physical Activity: ??? Days of Exercise per Week: ??? Minutes of Exercise per Session: Significant Family History: Family History Problem Relation Age of Onset ??? Heart Disease Mother ??? Heart Disease Brother 3 brothers, all with history of IA; one with valvular disease ??? Heart Disease Maternal Grandfather ??? Ovarian Cancer Maternal Aunt 48 ??? Breast Cancer Maternal Cousin 61 recurrence at 71 ??? Breast Cancer Maternal Cousin 68 daughter had breast cancer in her 30's Pertinent ROS: as per HPI Labs: Lab Results Component Value Date WBC 7.05 09/12/2020 ANC 4.18 09/12/2020 HCT 34.9 09/12/2020 PLATELET 208 09/12/2020 INR 1.0 08/08/2020 BUN 17 09/12/2020 CREATININE 1.0 09/12/2020 ALKPHOS 96 09/12/2020 AST 21 09/12/2020 ALBUMIN 4.0 09/12/2020 BILITOT 0.8 09/12/2020 ALT 26 09/12/2020 PROT 7.2 09/12/2020 K 4.0 09/12/2020 Assessment: 60 y.o. female with ovarian cancer. Treatment complete and chest port, placed 08/2019, is no longer needed. Plan: Plan Planned procedure: chest port removal Labs to be performed day of procedure: No labs Sedation: No Sedation Prophylactic antibiotic : None Contrast: No contrast Additional medications for procedure: Lidocaine Position: Supine Consent: Pending Medications to discontinue (and days held): None Cytopathology presence needed: No Case Urgency:: G- Other (non E or F elective cases) 10/03/2020 documented in this encounter Plan of Treatment Upcoming Encounters Date Type Department Care Team (Latest Contact Info) Description 12/25/2023 9:[address] [place] [phone] Xavier Malhotra MD [facility] [place] [address] 12/29/2023 Hospital Encounter [place]rophys[place] [phone] Xavier Malhotra MD [facility] [place] [address] Paroxysmal atrial fibrillation 12/29/2023 7:30 AM EDT - 12/29/2023 12:00 PM EDT Surgery [place]rophys[place] [phone] Xavier Malhotra MD [facility] [place] [address] ELECTROPHYSIOLOGY PROCEDURE 01/14/2024 10:40 AM EDT Office Visit Cardiology at [address] [phone] Carmen Castaneda PA [facility] [place] [address] Scheduled Procedures Name Priority Associated Diagnoses Date/Ti [...] Procedure Name Priority Date/Time Associated Diagnosis Comments IR MEDIPORT REMOVAL Routine 10/04/2020 2 :29 PM EDT Ovarian cancer, unspecified laterality documented in this encounter Results * IR Mediport Removal (10/04/2020 2:29 PM EDT) Anatomical Region Laterality Modality X-Ray Angiograph y Narrative 10/04/2020 3:01 PM EDT IR Procedure Note Procedure: ?Right chest port removal History/indication: ?? 60 yr old F patient w/ ovarian Ca. ??Chest port placed 08/20/2019. Systemic therapy is complete and the port is no longer needed. Technique: ?The right anterior chest was prepped and draped in a sterile fashion. Maximal sterile barrier technique was employed throughout the case. ??1% lidocaine and bupivicaine with epinepherine were used as local anesthesia. An incision was made along the existing scar. Blunt and sharp dissection were then carried down to the port reservoir. The catheter was identified and secured with a hemostat. The catheter was then cut and the intravascular portion of the catheter removed in its entirety. ??The port reservoir was freed from the surrounding tissues and removed. ??All three components were visually accounted for on the table before the overlying skin was closed. The overlying skin was closed using a two layer technique (2-0 and 4-0 absorbable suture material). Tissue adhesive was also applied. ??The patient tolerated the procedure well. Complications: ?None immediate; ??EBL=0 Medications: ??1% lidocaine (<10 cc) Impression: ?? Right sided chest port removal as detailed above. Attending: ?Lavelle Wick MD ? I was present during the intraservice time as documented by the IR Nurse. Natalie Vallejo MD IMG IR ORDERABLES documented in this encounter Visit Diagnoses Diagnosis Ovarian cancer, lateral, stage IIIb high-grade serous/endometrioid, 07/20/2019 s/p FREDI/BSO/oment/PPALND/RSReanstomosis Paroxysmal atrial fibrillation Atrial fibrillation Paroxysmal atrial fibrillation Atrial fibrillation documented in this encounter Administered Medications Inactive Administered Medications - up to 3 most recent administrations Medication Order MAR Action Action Date Dose Rate Site lidocaine (Xylocaine) 1% (10 mg/mL) injection 10 mg 10 mg, Subcutaneous, ONCE, 1 dose, On Fri10/04/20 at 1315, For use in Interventional Radiology (IR) only for procedure with direct provider supervision and verbal order., Angio/IR (Intra-Procedure), Routine Given 10/04/2020 1:52 PM EDT 10 mg lidocaine-EPINEPHrine (1% - 1:100,000) injection 50 mL 50 mL, Intradermal, ONCE, 1 dose, On Fri10/04/20 at 1315, For use in Interventional Radiology (IR) only for Radiofrequency Ablation of Saphenous Vein procedure with direct provider supervision and verbal order., Angio/IR (Intra-Procedure), Routine Given 10/04/2020 1:56 PM EDT 50 mLs LORazepam (Ativan) tablet 1 mg 1 mg, Sublingual, ONCE, 1 dose, On Fri10/04/20 at 1330, Routine Given 10/04/2020 1:30 PM EDT 1 mg documented in this encounter Care Teams Electroplater Relationship Specialty Start Date End Date Evelyne Hunt APRN [address] [place] [address] PCP - General Internal Medicine 09/23/17 documented as of this encounter
--- OUTSIDE RECORDS SUMMARY | 2023-12-01 02:13 | XMS_ITS | Encounter Summary ---
Author Organization [facility] Address [facility] [place] [address] Care Team Providers Care Hand Surgeon Name Role Phone Evelyne Hunt APRN Primary Care Provider [phone] Reason for Referral * Diagnostic Test (Routine) - Closed Specialty Diagnoses / Procedures Referred By Contac t Referred To Contact Radiology Diagnoses Ovarian cancer, unspecified laterality Procedures IR Mediport Removal Natalie Vallejo MD [facility] [place] [address] [facility] [place] [address] Referral ID Status Reason Start Date Expiration Date V isits Requested Visits Authorized [id number] Closed Specialty Service Requested 09/26/2020 03/28/2022 1 1 Encounter Details Date Type Department Care Team (Late st Contact Info) Description 09/26/2020 Telephone [place] [address] Natalie Vallejo MD [facility] [place] [address] Social History Tobacco Use Types Packs/Day Years [...] 9:[address] Scan at [place] [phone] Xavier Malhotra MD [facility] E[facility]OPHYSR[facility] [place] [address] 12/29/2023 Hospital Encounter Electrophysiology Lab at [place] [address] Xavier Malhotra MD [facility] [address] [place] [address] Paroxysmal atrial fibrillation 12/29/2023 7:30 AM EDT - 12/29/2023 12:00 PM EDT Surgery Electrophysiology Lab at [place] [address] Xavier Malhotra MD [facility] [place] [address] ELECTROPHYSIOLOGY PROCEDURE 01/14/2024 10:40 AM EDT Office Visit Cardiology at [place] [address] Carmen Castaneda PA [facility] [place] [address] Scheduled Procedures Name Priority Associated Diagnoses Date/Ti me TRANSESOPHAGEAL ECHO DURING CATH/EP PROCEDURE Paroxysmal atrial fibrillation 12/29/2023 7:30 AM EDT documented as of this encounter Goals Goal Patient Goal Type Associated Problems Recent Progress Patient-Stated? Author [facility] Medication Compliance and Understanding Patient Facing Action Plan Lani Love, [facility] Note: Maintain control of disease for as long as possible as assessed by tumor marker levels and scans in clinic every 3 to 6 months documented as of this encounter Results * IR Mediport Removal [...] by the IR Nurse. Natalie Vallejo MD [facility] [place] ORDERABLES documented in this encounter Visit Diagnoses Diagnosis Ovarian cancer, lateral, stage IIIb high-grade serous/endometrioid, 07/20/2019 s/p FREDI/BSO/oment/PPALND/RSReanstomosis Ovarian cancer, lateral, stage IIIb high-grade serous/endometrioid, 07/20/2019 s/p FREDI/BSO/oment/PPALND/RSReanstomosis Paroxysmal atrial fibrillation Atrial fibrillation Paroxysmal atrial fibrillation Atrial fibrillation documented in this encounter Care Teams Hand Surgeon Relationship Specialty Start Date End Date Evelyne Hunt APRN [address] [place] [address] PCP - General Internal Medicine 09/23/17 documented as of this encounter
--- OUTSIDE RECORDS SUMMARY | 2023-12-01 02:13 | XMS_ITS | Encounter Summary ---
Author Organization [facility] Address [facility] [place] [address] Care Team Providers Care Metal Milling Machine Operator Name Role Phone Evelyne Hnut Dat STEVEN Primary Care Provider [phone] Reason for Visit * Reason Comments Medication Refill Encounter Details Date Type Department Care Team (Late st Contact Info) Description 06/17/2021 Refill Cardiology at [address] [phone] Franklyn Toure MD [facility] [place] [address] Medication Refill Social History Tobacco Use Types [...] 9:[address] [place] [address] Xavier Malhotra MD [facility] [place] [address] 12/29/2023 Hospital Encounter [place] [address] Xavier Malhotra MD [facility] [place] [address] Paroxysmal atrial fibrillation 12/29/2023 7:30 AM EDT - 12/29/2023 12:00 PM EDT Surgery [place] [phone] Xavier Malhotra MD [facility] [place] [address] ELECTROPHYSIOLOGY PROCEDURE 01/14/2024 10:40 AM EDT Office Visit Cardiology at [address] [phone] Carmen Castaneda PA [facility] [place] [address] Scheduled Procedures Name Priority Associated Diagnoses Date/Ti [...] as of this encounter Visit Diagnoses Diagnosis SVT (supraventricular tachycardia)- Primary Other specified cardiac dysrhythmias Hypertension, unspecified type Paroxysmal atrial fibrillation Atrial fibrillation Paroxysmal atrial fibrillation Atrial fibrillation documented in this encounter Care Teams Metal Milling Machine Operator Relationship Specialty Start Date End Date Evelyne Hunt APRN [address] [place] [address] PCP - General Internal Medicine 09/23/17 documented as of this encounter
--- OUTSIDE RECORDS SUMMARY | 2023-12-01 02:13 | XMS_ITS | Encounter Summary ---
Author Organization [facility] [place] [address] Care Team Providers Care Metal [employer] Name Role Phone Evelyne Hunt Dat STEVEN Primary Care Provider [phone] Reason for Visit * Reason Comments Medication Refill Encounter Details Date Type Department Care Team (Late st Contact Info) Description 07/16/2021 Specialty [place] [phone] Gus Call, [facility] Social History Tobacco Use Types Packs/Day [...] Progress Notes * Gus Call [facility] - 07/16/2021 2:07 PM EDT Clinical Management Plan: Refill Specialty Pharmacy Consultation; Gus Call [facility] Comprehensive Medication Management (CMM) Gabi Benitoyvonne Ms. Gabi Luan is a 60 y.o. (1960) female who [...] complete drug. Medication Reconciliation Discrepancies (compared to [facility] med list) No Specialty Pharmacy Refill Questionnaire Refill Questionnaire 07/16/2021 What is the name of the specialty medication you are refilling? Zejula Are you taking any new medications? No Please explain - Any new medical condition? No Any new allergies? No Any new side effects that are bothersome? No What date will you need this fill by? 07/25/2021 (needs sooner b/c going on deanne that day) Adherence: Any missed doses? No Patient understands no changes to current drug regimen were made. Gus Call RPH 07/16/21 2:10 PM documented in this encounter Plan of Treatment Upcoming Encounters Date Type Department Care Team (Latest Contact Info) Description 12/25/2023 9:[address] [place] [address] Xavier Malhotra MD [facility] [address] [place] [address] 12/29/2023 Hospital Encounter [place] [address] Xavier Malhotra MD [facility] [place] [address] Paroxysmal atrial fibrillation 12/29/2023 7:30 AM EDT - 12/29/2023 12:00 PM EDT Surgery [place] [phone] Xavier Malhotra MD [facility] [place] [address] ELECTROPHYSIOLOGY PROCEDURE 01/14/2024 10:40 AM EDT Office Visit Cardiology at [address] [phone] Carmen Castaneda PA [facility] [place] [address] Scheduled Procedures Name Priority Associated Diagnoses Date/Ti [...] on filedocumented in this encounter Care Teams [employer] Relationship Specialty Start Date End Date Evelyne Hunt APRN [address] [place] [address] PCP - General Internal Medicine 09/23/17 documented as of this encounter
--- OUTSIDE RECORDS SUMMARY | 2023-12-01 02:13 | XMS_ITS | Encounter Summary ---
Author Organization [facility] Address [facility] [place] [address] Care Team Providers Care Curriculum Assistant Name Role Phone Kiki Huntyce Dat STEVEN Primary Care Provider [phone] Encounter Details Date Type Department Care Team (Late st Contact Info) Description 09/14/2020 Orders Only Obstetrics [place] [address] Akanksha Rojas RN Ovarian cancer, lateral, stage IIIb high-grade serous/endometrioid, 07/20/2019 s/p FREDI/BSO/oment/PPALND/R SReanstomosis Social History Tobacco Use Types Packs/Day Years [...] [place] [address] Xavier Malhotra MD [facility] [place] [address] 12/29/2023 Hospital Encounter [place] [address] Xavier Malhotra MD [facility] [place] [address] Paroxysmal atrial fibrillation 12/29/2023 7:30 AM EDT - 12/29/2023 12:00 PM EDT Surgery [place] [phone] Xavier Malhotra MD [facility] [place] [address] ELECTROPHYSIOLOGY PROCEDURE 01/14/2024 10:40 AM EDT Office Visit Cardiology at [address] [phone] Carmen Castaneda PA [facility] [place] [address] Scheduled Procedures Name Priority Associated Diagnoses Date/Ti me TRANSESOPHAGEAL ECHO DURING CATH/EP PROCEDURE Paroxysmal atrial fibrillation 12/29/2023 7:30 AM EDT documented as of this encounter Goals Goal Patient Goal Type Associated Problems Recent Progress Patient-Stated? Author DH Home Medication Compliance and Understanding Patient Facing Action Plan Lani Love, [facility] Note: Maintain control of disease for as long as possible as assessed by tumor marker levels and scans in clinic every 3 to 6 months documented as of this encounter Visit Diagnoses Diagnosis Ovarian cancer, lateral, stage IIIb high-grade serous/endometrioid, 07/20/2019 s/p FREDI/BSO/oment/PPALND/RSReanstomosis Paroxysmal atrial fibrillation Atrial fibrillation Paroxysmal atrial fibrillation Atrial fibrillation documented in this encounter Care Teams Curriculum Assistant Relationship Specialty Start Date End Date Evelyne Hunt APRN [address] [place] [id number] PCP - General Internal Medicine 09/23/17 documented as of this encounter
--- OUTSIDE RECORDS SUMMARY | 2023-12-01 02:13 | XMS_ITS | Encounter Summary ---
Author Organization [facility] [place] [address] Care Team Providers Care Director Of Perioperative Services Name Role Phone Kiki Huntyce Dat STEVEN Primary Care Provider [phone] Reason for Visit * Reason Comments Specialty Refill Management Encounter Details Date Type Department Care Team (Late st Contact Info) Description 12/20/2020 Specialty [place] [phone] Michael Boss CPHT Social History Tobacco Use [...] encounter Progress Notes * Michael Boss - 12/20/2020 10:13 AM EDT Clinical Management Plan: Refill Specialty [...] complete drug. Medication Reconciliation Discrepancies (compared to [facility] med list) No Specialty Pharmacy Refill Questionnaire Refill Questionnaire 12/20/2020 What is the name of the specialty medication you are refilling? Zejula Are you taking any new medications? No Please explain - Any new medical condition? No Any new allergies? No Any new side effects that are bothersome? No What date will you need this fill by? 12/25/2020 Adherence: Any missed doses? No Patient understands no changes to current drug regimen were made.. Michael Boss 12/20/20 10:14 AM documented in this encounter Plan of Treatment Upcoming Encounters Date Type Department Care Team (Latest Contact Info) Description 12/25/2023 9:[address] [place] [address] Xavier Malhotra MD [facility] [address] [place] [address] 12/29/2023 Hospital Encounter [place] [address] Xavier Malhotra MD [facility] [place] [address] Paroxysmal atrial fibrillation 12/29/2023 7:30 AM EDT - 12/29/2023 12:00 PM EDT Surgery [place] [phone] Xavier Malhotra MD [facility] ELECTROPHY[place] [address] ELECTROPHYSIOLOGY PROCEDURE 01/14/2024 10:40 AM EDT Office Visit Cardiology at [address] [phone] Carmen Castaneda PA [facility] [place] [address] Scheduled Procedures Name Priority Associated Diagnoses Date/Ti [...] on filedocumented in this encounter Care Teams Director Of Perioperative Services Relationship Specialty Start Date End Date Evelyne Hunt APRN [address] [place] [address] PCP - General Internal Medicine 09/23/17 documented as of this encounter
--- OUTSIDE RECORDS SUMMARY | 2023-12-01 02:13 | XMS_ITS | Encounter Summary ---
Author Organization [facility] [place] [address] Care Team Providers Care Communication Center Coordinator Name Role Phone Evelyne Hunt APRN Primary Care Provider [phone] Reason for Visit * Reason Comments Skin Cancer Examination * Consultation (Routine) - Closed Specialty Diagnoses / Procedures Referred By Marcel edwards Referred To Contact Dermatology Diagnoses Disorder of the skin and subcutaneous tissue, unspecified Evelyne Hunt APRN [address] [place] [address] [facility] Dermatology [address] [place] [address] Referral ID Status Reason Start Date Expiration Date V isits Requested Visits Authorized [id number] Closed Consult, Test & Treat Connection Center PCP Updated and/or Approved 11/14/2020 11/14/2021 6 6 Encounter Details Date Type Department Care Team (Late st Contact Info) Description 01/08/2021 1:20 PM EDT Office Visit Dermatology at [facility] [address] [place] [phone] Akanksha Denny MD [facility] [place] [address] Multiple benign nevi; Seborrheic keratoses; Actinic keratoses; Neoplasm of uncertain behavior of skin; Dermatitis Social History Tobacco Use Types Packs/Day Years [...] on file documented as of this encounter Patient Instructions * Patient Instructions* Akanksha Kulkarni CMA - 01/08/2021 1:20 PM EDT Recommendations: - Discontinue ALL current personal care products. This includes soap, body wash, shampoo and conditioner, fragrance, lotions and creams, laundry soap and fabric softener. - Take short, cool showers. Use soap only where absolutely needed. Pat skin dry. - Immediately after bathing, apply moisturizing cream to body. - Use only the following personal care products. They are are recommended by our clinic because they have been extensively tested and are least likely to cause distress to your skin. - Soap: Dove Unscented Bar Soap or Vanicream bar soap - Facial cleanser: CeraVe Foaming Facial Cleanser or CeraVe Hydrating Cleanser - Shampoo and Conditioner: Free&Clear shampoo, Free&Clear conditioner - Moisturizer: CeraVe cream, CeraVe lotion, CeraVe lite lotion, Vanicream cream - Laundry Detergent: ALL Free&Clear. Do not use fabric softener or dryer sheets. documented in this encounter Progress Notes * Akanksha Denny - 01/08/2021 1:20 PM EDT Images from the original note were not included. DEPARTMENT OF DERMATOLOGY Medical Dermatology Clinic Note Provider: Akanksha Denny MD Patient's preferred name Ivana Preferred contact method for results [x]Phone [x]myD-H []Letter Detailed phone message OK? Yes Are there any other people with whom we may discuss your care? 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 Patient is referred to the clinic at [facility] of Evelyne Hunt for a full skin exam with the following concerns: - Rash on the arms and legs that appeared in the past 1-2 months. She notes that the rash initiallyappeared a few months ago and resolved with a course of antibiotics with a Medrol pack. She has notfound any triggers for the rash. She has been using Gladys cream on her skin. Patient denies new medications in the past few months. She has been seeing a Multiplex Operator and has started supplements, but the rash initially appeared prior to starting the supplements. She uses Gregg body soap. - Lesion on the face that has a similar appearance to a pimple. The lesion is asymptomatic. Review of Systems: General: Feeling well. Skin: No other skin concerns. Medications: Reviewed in eD-H Allergies: Reviewed in eD-H Skin Examination: Full skin examination: Patient asked to undress to their comfort level. Verbalized that the provider???s preference is that the patient remove all clothing and that the provider will not examine areas patient elects to keep covered. Patient elects to keep underwear on and have the following examined: scalp, hair, face, ears, neck, chest, axillae, abdomen, back, and upper and lower extremities. Genitalia and buttocks were not examined. Assessment/Plan #. Neoplasm of Uncertain Behavior - On the central upper back there is a 3 mm dark brown macule with central champion pigment (Figure 1) DDx: Nevus R/O Atypia - After review of risks and benefits, joint decision made to pursue shave biopsy today. Procedure: Skin biopsy by shave technique Location: central upper back Discussed indications for procedure and expectations including risks and benefits. Verbal consent obtained. Skin prep with alcohol. Local anesthesia with 1% lidocaine, 1/100,000 epinephrine. A sampleof the lesion was removed by shave technique to the level of the dermis and submitted to Pathology.Hemostasis obtained. There were no complications; the patient tolerated the procedure well. The wound was dressed. Post-procedure expectations, wound care and activity restrictions were reviewed. Follow-up based on pathology results. #. Actinic Keratosis - Scaly irregular pink papule located on right forehead - Discussed etiology and treatment options with patient - Joint decision to pursue LN2 x 2 to lesion. Advised to return if lesion does not resolve. Discussed etiology and patient agreed for cryotherapy Procedure Note: Procedure: Destruction of lesions with cryotherapy. Number: 1 Location: as above Discussed procedure and expectations including risks (including risk of hypopigmentation) and benefits. Verbal consent obtained. Frozen with LN2, 15-30 second thaw time, TWICE. There were no complications; the patient tolerated the procedure well. Post-procedure expectations and wound care were reviewed. #. Favor Allergic Contact Dermatitis vs. Drug Eruption - On the back, and upper and lower extremities (figure 2) - Taking Zejula chemotherapy - Discussed skin findings and differential diagnosis with patient. - Start Rx: Triamcinolone 0.1% cream: Apply twice daily to affected areas of the trunk and extremities for 14 days, then take 1 week off, repeat as needed - Recommend sensitive skin care - Recommend alternative moisturizing creams rather than Gladys, such as CeraVe or Cetaphil #. Benign Nevi - Scattered medium-brown macules and papules on the trunk and extremities. - Reassured of benign appearance on exam today. #. Seborrheic Keratoses - Scattered brown and flesh colored waxy nummular stuck on plaques located on the trunk and extremities, including the lesions on the left neck and face. - Reassured of benign nature, return to clinic if these lesions become inflamed or irritating - Discussed cosmetic removal options with LN2. Quoted patient for removal of $50 for removal of 2 lesions. Figure 1 Figure 2: Figure 2: Photo(s) taken and charted with patient's verbal consent. Other: ??? N/A RTC: Pending pathology. Otherwise 8 weeks for rash follow up []Note routed to assistant secretary []Recall placed in scheduling system [x]Appointment scheduled at checkout Scribe attestation: Akanksha Kulkarni CMA has performed the documentation for this encounter in the presence of and acting as a scribe for Akanksha Denny MD. I performed the above scribed service and agree with the accuracy of the documentation in this encounter. Reviewed and signed by: Akanksha Denny MD Dermatology [facility] Patient seen and evaluated with staff chainsaw mechanic: Gail Hollingsworth MD Department of Dermatology [facility] * Gail Hollingsworth MD - 01/08/2021 1:20 PM EDT I directly supervised Dr. Denny during this office visit. Dr. Denny presented the history and physical exam to me. I then saw and examined this patient with Dr. Denny . We reviewed the history andpertinent details and I confirmed the physical findings. I agree with the details of the history and physical exam as documented in Dr. Dennys note. Gail Hollingsworth MD Staff Physician documented in this encounter Plan of Treatment Upcoming Encounters Date Type Department Care Team (Latest Contact Info) Description 12/25/2023 9:[address] [place] [address] Xavier Malhotra MD [facility] [place] [address] 12/29/2023 Hospital Encounter Elect[place] [phone] Xavier Malhotra MD [facility] [place] [address] Paroxysmal atrial fibrillation 12/29/2023 7:30 AM EDT - 12/29/2023 12:00 PM EDT Surgery [place] [phone] Xavier Malhotra MD [facility] DR ELECTROPHYSI[place] [address] ELECTROPHYSIOLOGY PROCEDURE 01/14/2024 10:40 AM EDT Office Visit Cardiology at [address] [phone] Carmen Castaneda PA [facility] CARDIOLOGY [place], [place] [phone] Scheduled Procedures Name Priority Associated Diagnoses Date/Ti me TRANSESOPHAGEAL ECHO DURING CATH/EP PROCEDURE Paroxysmal atrial fibrillation 12/29/2023 7:30 AM EDT documented as of this encounter Goals Goal Patient Goal Type Associated Problems Recent Progress Patient-Stated? Author DH [place] Medication Compliance and Understanding Patient Facing Action Plan Lani Love, [facility] Note: Maintain control of disease for as long as possible as assessed by tumor marker levels and scans in clinic every 3 to 6 months documented as of this encounter Procedures Procedure Name Priority Date/Time Associated Diagnosis Comments SPECIMEN TO PATHOLOGY Routine 01/08/2021 2:02 PM EDT Neoplasm of uncertain behavior of skin SURGICAL PATHOLOGY REPORT Routine 01/08/2021 1:54 PM EDT documented in this encounter Results * Specimen to Pathology (01/08/2021 2:02 PM EDT) AP Specimen 01/08/2021 2:02 PM EDT 01/08/2021 2:02 PM EDT Narrative [facility] - 01/08/2021 2:02 PM EDT Specimen requisition ordered. ??Separate Pathology report to follow Gail Hollingsworth MD PATHOLOGY/CYTOLOGY O RDERABLES [facility] [place] [address] * Surgical Pathology Report (01/08/2021 1:54 PM EDT) Final Diagnosis [id number] ? Location: [facility] The signing pathologist has (i) examined the relevant preparation(s) for the specimen(s) and (ii) rendered or confirmed the diagnosis(es). . 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 extending close to peripheral and deep specimen edge(s) Electronically signed by: ?Sam Helms MD Verified: ??01/15/2021 16:08 ??Dermatopathologist , Bone & Soft Tissue Pathologist Performed at: ??-[facility] Dept. of Pathology, [place], [place] ADDITIONAL STUDIES Immunohistochemistry Studies: Formalin-fixed, paraffin-embedded tissue sections are studied using the polymer technique with appropriate positive and negative controls. ?These IHC studies provide the pathologist with adjunctive diagnostic information. Antibody specificity has been verified by testing antibodies on a series of in-house tissues with known immunohistochemical performance characteristics. The clinical interpretation of any antibody positive staining or its absence is evaluated within the context of clinical presentation, morphology, histopathological criteria and other diagnostic tests. Block ? Antibody ?Result (Positive/Negative) A1 ? PRAME ?Negative - ??Multiple deeper sections have been examined. SPECIMEN(S) SUBMITTED A - central upper back, skin shave biopsy (1) CLINICAL INFORMATION Nevus R/O atypia: 3 mm dark brown macule with central champion pigment SPECIMEN PROCESSING A - Labeled/Fixative: Central upper back, formalin. Quantity/Size: ??Single, 0.6 x 0.4 x 0.1 cm. Tissue Description: Irregular shave of foster-white skin with a central brown macule, 0.2 cm. Sections/Processing: Inked, trisected and entirely submitted in 1 cassette labeled A1. ??pps 01/15/2021 4:08 PM EDT [facility] SPECIMEN FROM SKIN / Unknown 01/08/2021 1:54 PM EDT 01/08/2021 1:54 PM EDT Akanksha Denny MD PATHOLOGY/CYTOLOGY O TAMICA Performing Organization Address City/State/[facility] Co de Phone Number [facility] [place] [address] documented in this encounter Visit Diagnoses Diagnosis Multiple benign nevi Benign neoplasm of skin, site unspecified Seborrheic keratoses Actinic keratoses Actinic keratosis Neoplasm of uncertain behavior of skin Dermatitis Contact dermatitis and other eczema, due to unspecified cause Paroxysmal atrial fibrillation Atrial fibrillation Paroxysmal atrial fibrillation Atrial fibrillation documented in this encounter Care Teams Communication Center Coordinator Relationship Specialty Start Date End Date Evelyne Hunt APRN [address] [place] [address] PCP - General Internal Medicine 09/23/17 documented as of this encounter
--- OUTSIDE RECORDS SUMMARY | 2023-12-01 02:13 | XMS_ITS | Encounter Summary ---
Author Organization [facility] Address [facility] [place] [address] Care Team Providers Care Reference Test Clerk Name Role Phone Evelyne Hunt APRN Primary Care Provider [phone] Reason for Visit * Auth/Cert Specialty Diagnoses / Procedures Referred By Marcel t Referred To Contact Diagnoses Encounter for screening for malignant neoplasm of colon Encounter for screening for malignant neoplasm of colon / Nonrheumatic aortic (valve) stenosis Procedures PRO COLONOSCOPY, DIAGNOSTIC PRO COLONOSCOPY, REMV LESN, SNARE PRO COLONOSCOPY, BIOPSY COLONOSCOPY, DIAGNOSTIC Referral ID Status Reason Start Date Expiration Date Visits Re quested Visits Authorized [id number] 1 1 Encounter Details Date Type Department Care Team (Latest Contact Info) Description 05/01/2021 9:36 AM EST - 05/01/2021 11:56 AM EST Hospital Encounter [place] [address] Arlin Agudelo MD [facility] [place] [address] Discharge Disposition: Home Social History Tobacco Use [...] Sign Reading Time Taken Comments Blood Pressure 114/74 05/01/2021 11:40 AM EST Pulse 76 05/01/2021 11:10 AM EST Temperature 36.7 ??C (98 ??F) 05/01/2021 10:12 AM EST Respiratory Rate 10 05/01/2021 11:10 AM EST Oxygen Saturation 98% 05/01/2021 11:40 AM EST Inhaled Oxygen Concentration - - Weight 61.2 kg (135 lb) 05/01/2021 10:12 AM EST Height 165.1 cm (5' 5) 05/01/2021 10:12 AM EST Body Mass Index 22.47 05/01/2021 10:12 AM EST documented in this encounter Discharge Instructions * Discharge Instructions* Fanta Novak, RN - 05/01/2021 11:19 AM EST Colonoscopy: What to Expect at Home Your Recovery Your doctor will talk to you about when you will need your next colonoscopy. Your doctor can help you decide how often you need to be checked. This will depend on the results of your test and your risk for colorectal cancer. After the test, you may be bloated or have gas pains. You may need to pass gas. If a biopsy was done or a polyp was removed, you may have streaks of blood in your stool (feces) for a few days. Problems such as heavy rectal bleeding may not occur until several weeks after the test. This isn't common. But it can happen after polyps are removed. This care sheet gives you a general idea about how long it will take for you to recover. But each person recovers at a different pace. Follow the steps below to get better as quickly as possible. How can you care for yourself at home? Activity Rest when you feel tired. ?? You can do your normal activities when it feels okay to do so. Diet ?? Follow your doctor's directions for eating. ?? Unless your doctor has told you not to, drink plenty of fluids. This helps to replace the fluidsthat were lost during the colon prep. ?? Do not drink alcohol. Medicines ?? Your doctor will tell you if and when you can restart your medicines. He or she will also give you instructions about taking any new medicines. ?? If you take blood thinners, such as warfarin (Coumadin), clopidogrel (Plavix), or aspirin, be sure to talk to your doctor. He or she will tell you if and when to start taking those medicines again. Make sure that you understand exactly what your doctor wants you to do. ?? If polyps were removed or a biopsy was done during the test, your doctor may tell you not to take aspirin or other anti-inflammatory medicines for a few days. These include ibuprofen (Advil, Motrin) and naproxen (Aleve). Other instructions ?? For your safety, do not drive or operate machinery until the medicine wears off and you can think clearly. Your doctor may tell you not to drive or operate machinery until the day after your test. ?? Do not sign legal documents or make major decisions until the medicine wears off and you can think clearly. The anesthesia can make it hard for you to fully understand what you are agreeing to. Additional Information for Sedation Patients For patients who received sedation: ?? You may have received medications before and/or during your procedure which effects your judgement and reaction time. ?? Do not drive, operate machinery, drink alcoholic beverages or make important decisions for 24 hours. ?? Be careful on stairs as you may be unsteady on your feet. ?? You may eat a regular diet as tolerated. ?? Do not smoke if you are alone. ?? IV site: Slight redness or tenderness is normal, you can use a warm compress if you would like. If tenderness and/or redness increase or if foul drainage occurs, please contact your Doctor. Please call [phone] before 8pm Mon-Fri with problems, questions or concerns. If you call after 8pm or on weekends, call the Hospital at [phone] and ask to speak to the Director Talent Management sheep boner and the jack tamp operator will contact that person for you. When should you call for help? Call [phone] anytime you think you may need emergency care. For example, call if: ?? You passed out (lost consciousness). ?? You pass maroon or bloody stools. ?? You have trouble breathing. Call your doctor now or seek immediate medical care if: ?? You have pain that does not get better after you take pain medicine. ?? You are sick to your stomach or cannot drink fluids. ?? You have new or worse belly pain. ?? You have blood in your stools. ?? You have a fever. ?? You cannot pass stools or gas. Watch closely for changes in your health, and be sure to contact your doctor if you have any problems. Where can you learn more? [facility] View your After Visit Summary and more online at [email or web address] If you would like to provide feedback about your hospital experience, please call the Office of Patient and Family Relations at . If you have received this After Visit Summary in error, please immediately return it in person to the department, or notify the [facility] Privacy Office by calling toll free at between the hours of 8AM and 5PM to arrange for our retrieval of the documents at no cost to you. Content Version: 12.2 ?? [id number] [employer]. Care instructions adapted under license by [facility]. If you have questions about a medical condition or this instruction, always ask your healthcare professional. [employer] disclaims any warranty or liability for your use of this information. documented in this encounter Medications at Time of Discharge Medication Sig Dispensed Refills Start Date End Date buPROPion XL (Wellbutrin XL) 300 mg Tablet Extended Release 24 hr TK 1 T PO QAM 10/01/2019 niraparib (Zejula) 100 mg capsuleIndications:ep ithelial ovarian cancer Take 1 capsule (100 mg) by mouth daily. 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 30 capsule 11 04/24/2021 05/02/2022 metoprolol succinate XL (Toprol-XL) 25 mg Tablet Sustained Release 24 hrIndications:Hyperte nsion, unspecified type,SVT (supraventricular tachycardia) Take 1 tablet by mouth daily. 90 tablet 03/21/2021 06/18/2021 triamcinolone (Kenalog) 0.1 % CreamIndications:Derm atitis Apply [...] Take 25 mg by mouth. HYDROcodone-acetamino phen ([place]) 5-325 mg Tablet Take 325 mg by mouth as needed. 12/14/2021 dilTIAZem CD (Cardizem CD) 360 mg Capsule, Sust. Release 24 hr Take 360 mg by mouth daily. Take 1 tablet by mouth daily. 09/20/2021 clobetasoL (TEMOVATE) 0.05 % Ointment Apply to the affected area daily at night for 6 to 12 weeks and then one to three times per week for maintenance. Apply sparingly (a dot 3 mm wide) in a thin film over the affected area. 15 g 3 12/13/2019 05/14/2021 ergocalciferol, vitamin D2, (VITAMIN D ORAL) Take by mouth daily. atorvastatin (LIPITOR) 10 mg Tablet Take 10 mg by mouth daily. 09/20/2021 documented as of this encounter H&P Notes * Arlin Agudelo MD - 05/01/2021 10:42 AM EST Gastroenterology and Hepatology Pre-Procedure History and Physical Exam Procedure: Colonoscopy: Indication: Screening No FH CRC PROBLEM LIST Patient Active Problem List Diagnosis Code ??? Hypothyroidism E03.9 ??? SVT (supraventricular tachycardia) I47.1 ??? Bicuspid aortic valve Q23.1 ??? Chest pain R07.9 ??? Aortic valve stenosis I35.0 ??? HTN (hypertension) I10 ??? 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 BRCA negative Z13.71 MEDICATIONS No current facility-administered medications on file prior to encounter. Current Outpatient Medications on File Prior to Encounter Medication Sig Dispense Refill ??? metoprolol succinate XL (Toprol-XL) 25 mg Tablet Sustained Release 24 hr Take 1 tablet by mouthdaily. 90 tablet 0 ??? dilTIAZem CD (Cardizem CD) 360 mg Capsule, Sust. Release 24 hr Take 360 mg by mouth daily. Take1 tablet by mouth daily. ??? buPROPion XL (Wellbutrin XL) 300 mg Tablet Extended Release 24 hr TK 1 T PO QAM ??? ergocalciferol, vitamin D2, (VITAMIN D ORAL) Take by mouth daily. ??? atorvastatin (LIPITOR) 10 mg Tablet Take 10 mg by mouth daily. ??? triamcinolone (Kenalog) 0.1 % Cream Apply twice daily to affected areas of the trunk and extremities for 14 days, then take 1 week off, repeat as needed 80 g 1 ??? LORazepam (Ativan) 0.5 mg Tablet Take 0.5 mg by mouth as needed. ??? ibuprofen (Advil;Motrin) 800 mg Tablet Take 800 mg by mouth as needed. ??? hydroCHLOROthiazide (Hydrodiuril) 25 mg Tablet Take 25 mg by mouth. ??? HYDROcodone-acetaminophen ([place]) 5-325 mg Tablet Take 325 mg by mouth as needed. ??? clobetasoL (TEMOVATE) 0.05 % Ointment Apply to the affected area daily at night for 6 to 12 weeks and then one to three times per week for maintenance. Apply sparingly (a dot 3 mm wide) in a thinfilm over the affected area. 15 g 3 PHYSICAL EXAM: GEN: Alert, cooperative, pleasant and in NAD HEENT: Airway examined, oropharyngeal clear without lesions Mallampati Score: I (soft palate, uvula, fauces, tonsillar pillars visible) Neck: Supple, no lymphadenopathy or masses LUNGS: Clear to auscultation HEART: Regular rate and rhythm, normal S1, S2 ABDOMEN: Normal bowel sounds, soft, non tender, non distended EXT: No clubbing, cyanosis or edenoma NEURO: No focal deficits RECENT LABS No results found for this or any previous visit (from the past 24 hour(s)). ASSESSMENT AND PLAN Gabi Eber Luisrhonda is a 60 y.o. y/o who presents for endoscopy. Risks and benefits of the procedure explained to the patient. We discussed in depth possible risks include reaction to anesthesia, bleeding, infection, perforation, bruising of other organs in the body, missed lesions including cancer, and/or other unforseen complication. All of the patients questions were answered. Patient wishes to proceed and consent was signed. Proceed with the planned endoscopic procedure. ASA 2 - Patient with mild systemic disease with no functional limitations Sedation Plan: moderate (conscious sedation) Arlin Agudelo MD Gastroenterology attending Pager [phone] documented in this encounter Plan of Treatment Upcoming Encounters Date Type Department Care Team (Latest Contact Info) Description 12/25/2023 9:[address] Scan at [place] [phone] Xavier Malhotra MD [facility] [place] [address] 12/29/2023 Hospital Encounter Electrophysiology Lab at [place] [phone] Xavier Malhotra MD [facility] [place] [address] Paroxysmal atrial fibrillation 12/29/2023 7:30 AM EDT - 12/29/2023 12:00 PM EDT Surgery Electrophysiology Lab at [place] [phone] Xavier Malhotra MD [facility] [place] [address] ELECTROPHYSIOLOGY PROCEDURE 01/14/2024 10:40 AM EDT Office Visit Cardiology at [address] [phone] Carmen Castnaeda PA [facility] [place] [address] Scheduled Procedures Name Priority Associated Diagnoses Date/Ti me TRANSESOPHAGEAL ECHO DURING CATH/EP PROCEDURE Paroxysmal atrial fibrillation 12/29/2023 7:30 AM EDT documented as of this encounter Goals Goal Patient Goal Type Associated Problems Recent Progress Patient-Stated? Author DH Home Medication Compliance and Understanding Patient Facing Action Plan Lani Love, [facility] Note: Maintain control of disease for as long as possible as assessed by tumor marker levels and scans in clinic every 3 to 6 months documented as of this encounter Procedures Procedure Name Priority Date/Time Associated Diagnosis Comments SPECIMEN TO PATHOLOGY Routine 05/01/2021 11:12 AM EST SURGICAL PATHOLOGY REPORT Routine 05/01/2021 11:06 AM EST Colonoscopy, Remv Jayro Keenan ([id number]) 05/01/2021 10:44 AM EST Encounter for screening for malignant neoplasm of colon / Nonrheumatic aortic (valve) stenosis COLONOSCOPY Routine 05/01/2021 10:39 AM EST documented in this encounter Results * Specimen to Pathology (05/01/2021 11:12 AM EST) AP Specimen 05/01/2021 11:1 2 AM EST 05/01/2021 11:12 AM EST Narrative [facility] - 05/01/2021 11:12 AM EST Specimen requisition ordered. ??Separate Pathology report to follow Arlin Agudelo MD PATHOLOGY/CYTOLOG Y ORDERABLES Performing Organization Address [facility]/State/RUST Co de Phone Number [facility] [place] [address] * Surgical Pathology Report (05/01/2021 11:06 AM EST) Final Diagnosis [id number] ? Location: 4T; EA10; A The signing pathologist has (i) examined the relevant preparation(s) for the specimen(s) and (ii) rendered or confirmed the diagnosis(es). . ?Surgical Pathology DIAGNOSIS A - Ascending colon polyp 3mm, resection: - ??Tubular adenoma. Electronically signed by: ?Jimmy HORTA, Regina Verified: ??05/05/2021 21:00 ??Pathologist Performed at: ??-[facility] Dept. of Pathology, [place], [place] SPECIMEN(S) SUBMITTED A - Ascending colon polyp 3mm, resection (1) CLINICAL INFORMATION 60 year-old female Screening colonoscopy SPECIMEN PROCESSING A - Labeled/Fixativ e: Ascending colon polyp 3 mm, formalin. Quantity/Size: Five, 0.2-0.4 cm. Tissue Description: Soft, foster-pink tissues. Sections/Proces sing: Submitted en toto ??in 1 cassette labeled A1. ??wilber 05/05/2021 9:00 PM EST [facility] GI Biopsy 05/01/2021 11:0 6 AM EST 05/01/2021 11:06 AM EST Arlin Agudelo MD PATHOLOGY/CYTOLOG Y ORDERABLES Performing Organization Address City/State/RUST Co de Phone Number [facility] [place] [address] * COLONOSCOPY (05/01/2021 10:39 AM EST) COLONOSCOPY [facility] Endoscopy Procedure Date: 05/01/2021 10:39 AM ? Patient Name: Gabi Luna ? Date of : 1960 ? Age: 60 ? Order #: [id number] ? Instrument Name: [id number] ? Procedure: ? Colonoscopy Indications: ? Screening for colorectal malignant ? neoplasm Providers: ? Arlin Agudelo MD, Adriana Gray ? Alvarez Phipps, Salon Coordinator Referring : ?Evelyne Hunt Medicines: ? Midazolam 4 mg [...] preparation was evaluated using ? the BBPS (Garland Bowel Preparation ? Scale) with scores of: [...] personally performed the entire procedure. ? Arlin Augdelo MD 05/01/2021 11:10:41 AM Number of Addenda: 0 Note Initiated On: 05/01/2021 10:39 AM PROVATION 05/01/2021 10:3 9 AM EST Evelyne Hunt APRN GENERAL SURGICAL ORD ERABLES PROVATION documented in this encounter Visit Diagnoses Not on filedocumented in this encounter Administered Medications Inactive Administered Medications - up to 3 most recent administrations Medication Order MAR Action Action Date Dose Rate Site lactated ringers infusion 100 mL/hr, Intravenous, CONTINUOUS, Starting on Fri05/01/21 at 1030, Until Fri05/01/21 at 1356, Endoscopy (Day of Procedure) documented in this encounter Active and Recently Administered Medications Times are shown in EST. Continuous Medication Order 04/29/2021 04/30/2021 05/01/2021 lactated ringers infusion 100 mL/hr, Intravenous, CONTINUOUS, Starting on Fri05/01/21 at 1030, Until Fri05/01/21 at 1356, Endoscopy (Day of Procedure) 1030 (Due) PRN Medication Order 04/29/2021 04/30/2021 05/01/2021 fentaNYL (pf) (50 mcg/mL) multi-dose injection (CANCELED) ONCE PRN, Starting on Fri05/01/21 at 1048, Until Fri05/01/21 at 1356, Intra-Operative (Intra-Procedure), Routine 1048 (Given - Provid er: Adriana Phipps RN)1051 (Given - Provider: Adriana Phipps RN)1058 (Given - Provider: Adriana Phipps RN)1059 (Given - Provider: Adriana Phipps RN)1101 (Given - Provider: Adriana Phipps RN) midazolam (pf) (Versed) (1 mg/mL) multi-dose injection (CANCELED) ONCE PRN, Starting on Fri05/01/21 at 1048, Until Fri05/01/21 at 1356, Intra-Operative (Intra-Procedure), Routine 1048 (Given - Provid er: Adriana Phipps RN)1051 (Given - Provider: Adriana Phipps RN)1054 (Given - Provider: Adriana Phipps RN)1057 (Given - Provider: Adriana Phipps RN)1058 (Given - Provider: Adriana Phipps RN)1100 (Given - Provider: Adriana Phipps RN) documented in this encounter Care Teams Reference Test Clerk Relationship Specialty Start Date End Date Evelyne Hunt APRN [address] [place] [address] PCP - General Internal Medicine 09/23/17 documented as of this encounter
--- OUTSIDE RECORDS SUMMARY | 2023-12-01 02:13 | XMS_ITS | Encounter Summary ---
Author Organization [facility] [place] [address] Care Team Providers Care Power Washer Name Role Phone MarileeEvelyne APRN Primary Care Provider [phone] Reason for Visit * Reason Comments Medication Refill Encounter Details Date Type Department Care Team (Late st Contact Info) Description 02/14/2021 Specialty [place] [phone] Lani Vargas [facility] Social History Tobacco Use Types Packs/Day [...] Progress Notes * Lani Coats RPH - 02/14/2021 11:17 AM EDT Specialty Pharmacy Consultation; aLni Coats RPH Comprehensive Medication Management (CMM): Specialty Consult, Opt Out Gabi Benitoyvonne Diagnosis: Ovarian cancer Therapy Start Date: 01/06/20 Contact in person or via telephone: phone [...] patient from the cancer center such as landscape account manager consultation or social service worker. Administration, allergies, dosage, safe storage reviewed. The pharmacy's contact information and operating hours with on-call services were given to the patient both verbally and in writing. Economic Assessment: Patient is agreeable to medication copay: Yes Copay Amount: $0 Day Supply: 30 Date Needed: 02/16/21 Therapy Assessment: Appropriate Therapy: Yes Current Medication [...] Informed patient of specialty pharmacy services: Yes -Patient will be provided with welcome and rights packet: Yes Date to be provided: 08/23/19 mailed -Patient is aware a licensed pharmacist is [...] review and follow up. Lani Coats RPH 02/14/21 11:44 AM documented in this encounter Plan of Treatment Upcoming Encounters Date Type Department Care Team (Latest Contact Info) Description 12/25/2023 9:[address] [place] [address] Xavier Malhotra MD [facility] [place] [address] 12/29/2023 Hospital Encounter [place]rophys[place] [address] Xavier Malhotra MD [facility] [place] [address] Paroxysmal atrial fibrillation 12/29/2023 7:30 AM EDT - 12/29/2023 12:00 PM EDT Surgery Electrophysiology Lab at [address] Xavier Malhotra MD [facility] [place] [address] ELECTROPHYSIOLOGY PROCEDURE 01/14/2024 10:40 AM EDT Office Visit Cardiology at [place] [phone] Carmen Castaneda PA [facility] [place] [address] Scheduled Procedures Name Priority Associated Diagnoses Date/Ti [...] on filedocumented in this encounter Care Teams Power Washer Relationship Specialty Start Date End Date Evelyne Hunt APRN [address] [place] [address] PCP - General Internal Medicine 09/23/17 documented as of this encounter
--- OUTSIDE RECORDS SUMMARY | 2023-12-01 02:13 | XMS_ITS | Encounter Summary ---
Author Organization [facility] [place] [address] Care Team Providers Care Professor/Nurse Anesthetist Name Role Phone Evelyne Hunt Dat STEVEN Primary Care Provider [phone] Reason for Visit * Reason Comments Specialty Refill Management Medication Management Encounter Details Date Type Department Care Team (Late st Contact Info) Description 03/21/2021 Specialty [place] [address] Gregg Crouch [facility] Social History Tobacco Use Types Packs/Day Years [...] as of this encounter Progress Notes * Gregg Crouch [facility] - 03/21/2021 9:37 AM EST Clinical Management Plan: Refill Specialty Pharmacy Consultation; Gregg Crouch [facility] Comprehensive Medication Management (CMM) Gabi Benitoyvonne Ms. [...] No Specialty Pharmacy Refill Questionnaire Refill Questionnaire 03/21/2021 What is the name of the specialty medication you are refilling? Zejula Are you taking any new medications? No Please explain - Any new medical condition? No Any new allergies? No Any new side effects that are bothersome? No What date will you need this fill by? 03/27/2021 Adherence: Any missed doses? No Patient understands no changes to current drug regimen were made. Gregg Crouch RPH 03/21/21 9:38 AM documented in this encounter Plan of Treatment Upcoming Encounters Date Type Department Care Team (Latest Contact Info) Description 12/25/2023 9:[address] [place] [address] Xavier Malhotra MD [facility] [place] [address] 12/29/2023 Hospital Encounter [place] [address] Xavier Malhotra MD [facility] [place] [address] Paroxysmal atrial fibrillation 12/29/2023 7:30 AM EDT - 12/29/2023 12:00 PM EDT Surgery [place] [phone] Xavier Malhotra MD [facility] [place] [address] ELECTROPHYSIOLOGY PROCEDURE 01/14/2024 10:40 AM EDT Office Visit Cardiology at [address] [place] [phone] Carmen Castaneda PA [facility] [place] [place] [address] Scheduled Procedures Name Priority Associated Diagnoses Date/Ti me TRANSESOPHAGEAL ECHO DURING CATH/EP PROCEDURE Paroxysmal atrial fibrillation 12/29/2023 7:30 AM EDT documented as of this encounter Goals Goal Patient Goal Type Associated Problems Recent Progress Patient-Stated? Author DH Home Medication Compliance and Understanding Patient Facing Action Plan Lani Love, [facility] Note: Maintain control of disease for as long as possible as assessed by tumor marker levels and scans in clinic every 3 to 6 months documented as of this encounter Visit Diagnoses Not on filedocumented in this encounter Care Teams Professor/Nurse Anesthetist Relationship Specialty Start Date End Date Evelyne Hunt APRN [address] [place] [address] PCP - General Internal Medicine 09/23/17 documented as of this encounter
--- OUTSIDE RECORDS SUMMARY | 2023-12-01 02:13 | XMS_ITS | Encounter Summary ---
Author Organization [facility] [place] [address] Care Team Providers Care Ice Skating Instructor Name Role Phone Kiki Huntyce Dat STEVEN Primary Care Provider [phone] Reason for Visit * Reason Comments Medication Management Encounter Details Date Type Department Care Team (Late st Contact Info) Description 01/15/2021 Specialty [place] [phone] Yeny Marcano RPH Social History Tobacco Use Types Packs/Day Years [...] Progress Notes * Yeny Marcano RPH - 01/15/2021 10:04 AM EDT Clinical Management Plan: Refill Specialty Pharmacy Consultation; Yeny Marcano RPH Comprehensive Medication Management (CMM) Gabi Smithrhonda Ms. Gabi uLna is a 60 y.o. (1960) female who [...] drug. Medication Reconciliation Discrepancies (compared to [facility] med list) No Specialty Pharmacy Refill Questionnaire Refill Questionnaire 01/15/2021 What is the name of the specialty medication you are refilling? Zejula Are you taking any new medications? No Please explain - Any new medical condition? No Any new allergies? No Any new side effects that are bothersome? No What date will you need this fill by? - Adherence: Any missed doses? No Patient understands no changes to current drug regimen were made. Yeny Marcano RPH 01/15/21 10:05 AM documented in this encounter Plan of Treatment Upcoming Encounters Date Type Department Care Team (Latest Contact Info) Description 12/25/2023 9:[address] [place] [address] Xavier Malhotra MD [facility] [place] [address] 12/29/2023 Hospital Encounter [place] [address] Xavier Malhotra MD [facility] [place] [address] Paroxysmal atrial fibrillation 12/29/2023 7:30 AM EDT - 12/29/2023 12:00 PM EDT Surgery [place] [phone] Xavier Malhotra MD [facility] [place] [address] ELECTROPHYSIOLOGY PROCEDURE 01/14/2024 10:40 AM EDT Office Visit Cardiology at [address] [address] Carmen Castaneda PA [facility] [place] [address] Scheduled Procedures Name Priority Associated Diagnoses Date/Ti mo TRANSESOPHAGEAL ECHO DURING CATH/EP PROCEDURE Paroxysmal atrial [...] on filedocumented in this encounter Care Teams Ice Skating Instructor Relationship Specialty Start Date End Date Evelyne Hunt APRN [address] [place] [address] PCP - General Internal Medicine 09/23/17 documented as of this encounter
--- OUTSIDE RECORDS SUMMARY | 2023-12-01 02:13 | XMS_ITS | Encounter Summary ---
Author Organization Formerly [facility] [place] [address] Care Team Providers Care Wrapper Operator Name Role Phone Evelyne Hunt TENISHA Primary Care Provider [phone] Reason for Visit * Reason Onset Date Comments Medication Refill 04/24/2021 Encounter Details Date Type Department Care Team (Late st Contact Info) Description 04/24/2021 Refill [place] [phone] Natalie Vallejo MD [facility] [place] [address] Social History Tobacco Use Types Packs/Day Years [...] 9:[address] [place] [phone] Xavier Malhotra MD [facility] [place] [address] 12/29/2023 Hospital Encounter [place] [address] Xavier Malhotra MD [facility] [place] [address] Paroxysmal atrial fibrillation 12/29/2023 7:30 AM EDT - 12/29/2023 12:00 PM EDT Surgery [place] [phone] Xavier Malhotra MD [facility] [place] [address] ELECTROPHYSIOLOGY PROCEDURE 01/14/2024 10:40 AM EDT Office Visit Cardiology at [address] [phone] Carmen Castaneda PA [facility] [place] [address] Scheduled Procedures Name Priority Associated Diagnoses Date/Ti [...] on filedocumented in this encounter Care Teams Wrapper Operator Relationship Specialty Start Date End Date Evelyne Hunt APRN [address] [place] [address] PCP - General Internal Medicine 09/23/17 documented as of this encounter
--- OUTSIDE RECORDS SUMMARY | 2023-12-01 02:13 | XMS_ITS | Encounter Summary ---
Author Organization Formerly [facility] Address [facility] [place] [address] Care Team Providers Care Hub Cutter Name Role Phone Kiki Huntyce Dat STEVEN Primary Care Provider [phone] Reason for Referral * Diagnostic Test (Routine) - Closed Specialty Diagnoses / Procedures Referred By Contac t Referred To Contact Cardiology Diagnoses Aortic valve stenosis, etiology of cardiac valve disease unspecified Procedures Echocardiogram Transthoracic([facility]) Camelia Austin MD [facility] [place] [address] [facility] [place] [address] Referral ID Status Reason Start Date Expiration Date V isits Requested Visits Authorized [id number] Closed Specialty Service Requested 04/27/2021 04/27/2022 1 1 Encounter Details Date Type Department Care Team (Latest Contact Info) Description 04/27/2021 10:20 AM EST TH Visit (TeleHealth) Cardiology at [address] [address] Camelia Austin MD [facility] [place] [address] Ovarian cancer, lateral, stage IIIb high-grade serous/endometrioid, 07/20/2019 s/p FREDI/BSO/oment/PPALND /RSReanstomosis; SVT (supraventricular tachycardia); Aortic valve stenosis, etiology of cardiac valve disease unspecified; Hypertension, unspecified type; Bicuspid aortic valve Social History Tobacco Use [...] as of this encounter Progress Notes * Camelia Austin MD - 04/27/2021 10:20 AM EST CARDIOLOGY TELE VISIT NOTE Gabi Waller 04/27/21 The patient consented to this being a virtual visit. HPI: Gabi Waller is a 60 y.o. year old female with a PMH of moderate , moderate AI as well as SVT status post unsuccessful ablation who presents now as a return patient. The patient was previously followed by me up in [facility] but is now reestablishing care at [facility]. She had electrophysiology procedure in July 2020 which was unable to induce and ablate episodes of SVT. She then had a repeat Zio patch which showed multiple brief episodes of SVT that did not correlate with symptoms. She has been on low-dose metoprolol as well as diltiazem. She says that since we last spoke she has quit her job and feels fantastic. She is staying busy with her grandchildren and has no desire to go back to work. She has not had any significant episodes of palpitations and only occasionally feels her heart race when she is laying down for bed. She had no LE edema, LH, dizziness or SOB. She is walking a lot and doing yoga twice a week. She plans to start XC skiing soon. 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 She has tried vitamin B which made her heart race a bit more. She overall feels quite good and is excited that she will soon be coming over her cancer therapy oral medication, Zejula. Brief ROS: Activity level: moderate No new orthopnea, PND, LE edema. No lightheadedness, dizziness, syncope/pre- syncope. No new CP. Medications: Current Outpatient Medications Medication Sig Dispense Refill ??? niraparib (Zejula) 100 mg capsule Take 1 capsule (100 mg) by mouth daily. 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 metoprolol succinate XL (Toprol-XL) 25 mg Tablet Sustained Release 24 hr Take 1 tablet by mouthdaily. 90 tablet 0 ??? triamcinolone (Kenalog) 0.1 % Cream Apply [...] Take 25 mg by mouth. ??? HYDROcodone-acetaminophen ([place]) 5-325 mg Tablet Take 325 mg by mouth as needed. ??? dilTIAZem CD (Cardizem CD) 360 mg Capsule, Sust. Release 24 hr Take 360 mg by mouth daily. Take1 tablet by mouth daily. ??? clobetasoL (TEMOVATE) 0.05 % Ointment Apply [...] Tablet Take 10 mg by mouth daily. Medications were reviewed with patient. Objective Data: Weight has been stable TESTING: I have reviewed the pertinent outside records, laboratory data, and imaging studies. I personally reviewed the images and developed my own interpretation of the echocardiogram, CT scan if available, chest xray, and ECG. Pertinent results for this evaluation include: Labs: Lab Results Component Value Date WBC 7.05 09/12/2020 HGB 12.2 09/12/2020 HCT 34.9 09/12/2020 MCV 107.1 09/12/2020 PLATELET 208 09/12/2020 No results for input(s): NA, K, CL, CO2, BUN, CREATININE, GLUCOSE in the last 168 hours. Lab Results Component Value Date INR 1.0 08/08/2020 Assessment and Plan 1. Aortic valve disease: The patient is a possible bicuspid valve with moderate AI/moderate . Sheis grossly asymptomatic at this point has had no trouble with fluid status. She is not on a diuretic. Her last echocardiogram was done in [facility] but her last one done here was about 2 yearsago. She had basal septal hypertrophy but no dilation of her LV at that point. -We will repeat echocardiogram in the next 6 months 2. History of SVT: She had unsuccessful SVT ablation and is now maintained on dual AV clark blocking agents. She is on just a small dose of metoprolol and we briefly discussed stopping that as she takes that at night with the diltiazem in the morning. She would like to keep things as they are untilshe is off of her chemotherapy so as to not have too many moving parts. She says now that she is stopped working her palpitations is significantly improved though she still notes them occasionally. -Continue diltiazem -Continue low-dose metoprolol for now -No further monitoring recommended at this point Return to clinic in 6 months or sooner as needed Camelia Austin MD Time spent: I spent a total of 25 minutes associated with this encounter including chart review, the patient encounter, and documentation. Please see Assessment and Plan above for details of the discussion. documented in this encounter Plan of Treatment Upcoming Encounters Date Type Department Care Team (Latest Contact Info) Description 12/25/2023 9:[address] [place] [address] Xavier Malhotra MD [facility] [place] [address] 12/29/2023 Hospital Encounter [place] [address] Xavier Malhotra MD [facility] [address] [place] [address] Paroxysmal atrial fibrillation 12/29/2023 7:30 AM EDT - 12/29/2023 12:00 PM EDT Surgery [place] [phone] Xavier Malhotra MD [facility] [place] [address] ELECTROPHYSIOLOGY PROCEDURE 01/14/2024 10:40 AM EDT Office Visit Cardiology at [address] [phone] Carmen Castaneda PA [facility] [place] [address] Scheduled Procedures Name Priority Associated Diagnoses Date/Ti me TRANSESOPHAGEAL ECHO DURING CATH/EP PROCEDURE Paroxysmal atrial fibrillation 12/29/2023 7:30 AM EDT documented as of this encounter Goals Goal Patient Goal Type Associated Problems Recent Progress Patient-Stated? Author [facility] Medication Compliance and Understanding Patient Facing Action Plan Lani Love, [facility] Note: Maintain control of disease for as long as possible as assessed by tumor marker levels and scans in clinic every 3 to 6 months documented as of this encounter Results * ECHO COMPLETE (11/29/2021 10:18 AM EDT) EF 74 HEARTLAB SYSTEM Anatomical Region Laterality Modality Cardiac Other 11/29/2021 8:59 AM EDT Narrative 11/29/2021 10:43 AM EDT ? Version 2 ? Echocardiogram Report Name: SRIDHAR GABI Velázquez ?Study Date: 11/29/2021 08:59 AMBP: 131/81 mmHg ? Patient Location: 4A 0000 : 1960 ? Height: 166 cm ? Account: [id number] Age: 61 yrs ? Weight: 61 kg Gender: Female ?BSA: 1.7 m2 Ordering Physician: CAMELIA AUSTIN Referring Physician: CAMELIA AUSTIN Performed By: YAS Rodrigez Reason For Study: Aortic stenosis Exam Location: [facility]. Interpretation Summary 1. The left ventricle is [...] valve disease has progressed to severe. Procedure Complete-81125. Satisfactory quality. There is normal sinus rhythm. [...] Date: 208:59 AMBP: 131/81 mmHg Patient Location: [facility] : 1960 Height: 166 cm Account: [id number] Age: 61 yrs Weight: 61 kg Gender: Female BSA: 1.7 m2 Ordering Physician: CAMELIA AUSTIN Referring Physician: CAMELIA AUSTIN Performed By: YAS Rodrigez Reason For Study: Aortic stenosis Exam Location: [facility]. Interpretation Summary 1. The left ventricle is [...] aortic stenosis (SUDHAKAR 0.74cm2 by VTI continuity, kjapydnwb00/49mmHg, DOI 0.28). There is probably also moderate eccentric regurgitation. 4. See remainder of report for additional findings. When compared to theprior study dated 02/01/2020, LVOT gradients appear decreased but the aorticvalve disease has progressed to severe. Procedure Complete-[id number]. Satisfactory quality. There is normal sinus rhythm. 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 s/p FREDI/BSO/oment/PPALND/RSReanstomosis SVT (supraventricular tachycardia) Other specified cardiac dysrhythmias Aortic valve stenosis, etiology of cardiac valve disease unspecified Hypertension, unspecified type Bicuspid aortic valve Congenital insufficiency of aortic valve Aortic valve stenosis, etiology of cardiac valve disease unspecified Paroxysmal atrial fibrillation Atrial fibrillation Paroxysmal atrial fibrillation Atrial fibrillation documented in this encounter Care Teams Hub Cutter Relationship Specialty Start Date End Date Evelyne Hunt FISH FROG OR OYSTER FARMER [address] [place] [address] PCP - General Internal Medicine 09/23/17 documented as of this encounter
--- OUTSIDE RECORDS SUMMARY | 2023-12-01 02:13 | XMS_ITS | Encounter Summary ---
Author Organization [facility] [place] [address] Care Team Providers Care Fund Accountant Name Role Phone Evelyne Hunt Dat STEVEN Primary Care Provider [phone] Reason for Visit * Reason Comments Specialty Refill Management Encounter Details Date Type Department Care Team (Late st Contact Info) Description 11/14/2020 Specialty [place] [phone] Cait Bass CPHT Social History Tobacco Use [...] Progress Notes * Cait Bass CPHT - 11/14/2020 3:37 PM EDT Clinical Management Plan: Refill Specialty Pharmacy Consultation; Cait Bass CPHT Comprehensive Medication Management (CMM) Gabi Smithrhonda Ms. Gabi Luna is a 60 y.o. [...] complete drug. Medication Reconciliation Discrepancies (compared to [facility] med list) No Specialty Pharmacy Refill Questionnaire Refill Questionnaire 11/14/2020 What is the name of the specialty medication you are refilling? Zejula Are you taking any new medications? No Please explain - Any new medical condition? No Any new allergies? No Any new side effects that are bothersome? No What date will you need this fill by? 11/27/2020 Adherence: Any missed doses? No Patient understands no changes to current drug regimen were made.. Cait Bass CPHT 11/14/20 3:38 PM documented in this encounter Plan of Treatment Upcoming Encounters Date Type Department Care Team (Latest Contact Info) Description 12/25/2023 9:[address] [place] [address] Xavier Malhotra MD [facility] [place] [address] 12/29/2023 Hospital Encounter [place] [address] Xavier Malhotra MD [facility] [place] [address] Paroxysmal atrial fibrillation 12/29/2023 7:30 AM EDT - 12/29/2023 12:00 PM EDT Surgery [place] [address] Xavier Malhotra MD [facility] [place] [address] ELECTROPHYSIOLOGY PROCEDURE 01/14/2024 10:40 AM EDT Office Visit Cardiology at [address] [phone] Carmen Castaneda PA [facility] [place] [address] Scheduled Procedures Name Priority Associated Diagnoses Date/Ti [...] on filedocumented in this encounter Care Teams Fund Accountant Relationship Specialty Start Date End Date Evelyne Hunt APRN [address] [place] [address] PCP - General Internal Medicine 09/23/17 documented as of this encounter
--- OUTSIDE RECORDS SUMMARY | 2023-12-01 02:13 | XMS_ITS | Encounter Summary ---
Author Organization [facility] [place] [address] Care Team Providers Care Airline Pilot Name Role Phone Evelyne Hunt Dat STEVEN Primary Care Provider [phone] Encounter Details Date Type Department Care Team (Late st Contact Info) Description 07/23/2021 Telephone [place] [address] Sayda Doan RN Social History Tobacco Use [...] Telephone Encounter - Sayda Doan RN - 07/23/2021 12:47 PM EDT Called patient to discuss her concern of starting a new medication. Used KIT digitalicomp to check for medication interactions between zejula and dexamethasone. No interactions found. Informed patient that this should not be an issue, but will forward a message to Dr. Vallejo to confirm. Will call the patient if she does not want the patient to take dexamethasone. Patient verbalized understanding and denies any further questions or concerns at this time. * Telephone Encounter - Sayda Doan RN - 07/23/2021 12:46 PM EDT ----- Message from Justina Jolly sent at 07/23/2021 10:35 AM EDT ----- Regarding: Dexamethasome Caller's name: Call back #: [phone] Patient's provider/team: Dr Vallejo Reason for call: Derm prescribed a New medication for her and she would like to make sure it is safe to take with the Zejula. It is Dexamethasome 4 mg tablets every Friday and Friday documented in this encounter Plan of Treatment Upcoming Encounters Date Type Department Care Team (Latest Contact Info) Description 12/25/2023 9:[address] [place] [address] Xavier Malhotra MD [facility] [place] [address] 12/29/2023 Hospital Encounter Electrophysiology Lab at [place] [phone] Xavier Malhotra MD [facility] [place] [address] Paroxysmal atrial fibrillation 12/29/2023 7:30 AM EDT - 12/29/2023 12:00 PM EDT Surgery [place] [address] Xavier Malhotra MD [facility] [place] [address] ELECTROPHYSIOLOGY PROCEDURE 01/14/2024 10:40 AM EDT Office Visit Cardiology at [address] [phone] Carmen Castaneda PA [facility] [place] [address] Scheduled Procedures Name Priority Associated Diagnoses Date/Ti [...] on filedocumented in this encounter Care Teams Airline Pilot Relationship Specialty Start Date End Date Evelyne Hunt APRN [address] [place] [address] PCP - General Internal Medicine 09/23/17 documented as of this encounter
--- OUTSIDE RECORDS SUMMARY | 2023-12-01 02:13 | XMS_ITS | Encounter Summary ---
Author Organization [facility] [place] [address] Care Team Providers Care Vision Impaired Teacher Name Role Phone MarileeEvelyne APRN Primary Care Provider [phone] Encounter Details Date Type Department Care Team (Late st Contact Info) Description 04/02/2021 Notes Only Gy[place] [address] Vanda Aldridge ENROLLMENT ADVISOR [facility] DR OBSTETRICS & [place] [address] Social History Tobacco Use Types Packs/Day Years [...] as of this encounter Progress Notes * Vanda Aldridge APRN - 04/02/2021 4:43 PM EST Division of [place] [address] This automotive service writer called patient as the last labs in her chart from [facility] are from 02/01/21. Pt lab frequency is q 6 weeks. Pt stated she had them drawn earlier this week and she monitors her counts through the portal. Plan: [facility] was called and labs from 12/2/21 are being faxed to the office. Vanda Aldridge APRN documented in this encounter Plan of Treatment Upcoming Encounters Date Type Department Care Team (Latest Contact Info) Description 12/25/2023 9:[address] Scan at [place] [phone] Xavier Malhotra MD [facility] [place] [address] 12/29/2023 Hospital Encounter Electrophysiology Lab at [address] Xavier Malhotra MD [facility] [place] [address] Paroxysmal atrial fibrillation 12/29/2023 7:30 AM EDT - 12/29/2023 12:00 PM EDT Surgery Electrophysiology Lab at [place] [address] Xavier Malhotra MD [facility] [place] [address] ELECTROPHYSIOLOGY PROCEDURE 01/14/2024 10:40 AM EDT Office Visit Cardiology at [address] Carmen Castaneda PA [facility] [place] [address] Scheduled Procedures Name Priority Associated Diagnoses Date/Ti me TRANSESOPHAGEAL ECHO DURING CATH/EP PROCEDURE Paroxysmal atrial fibrillation 12/29/2023 7:30 AM EDT documented as of this encounter Goals Goal Patient Goal Type Associated Problems Recent Progress Patient-Stated? Author [facility] Medication Compliance and Understanding Patient Facing Action Plan Lani Love, [facility] Note: Maintain control of disease for as long as possible as assessed by tumor marker levels and scans in clinic every 3 to 6 months documented as of this encounter Visit Diagnoses Not on filedocumented in this encounter Care Teams Vision Impaired Teacher Relationship Specialty Start Date End Date Evelyne Hunt APRN [address] [place] [address] PCP - General Internal Medicine 09/23/17 documented as of this encounter
--- OUTSIDE RECORDS SUMMARY | 2023-12-01 02:13 | XMS_ITS | Encounter Summary ---
Author Organization [facility] [place] [address] Care Team Providers Care Police Aide Name Role Phone Kiki Huntyce Dat STEVEN Primary Care Provider [phone] Encounter Details Date Type Department Care Team (Late st Contact Info) Description 10/27/2020 Notes Only Gy[place] [phone] Vanda Aldridge APRN [facility] DR OBSTETRICS & [place] [address] Social History Tobacco Use Types Packs/Day Years [...] Progress Notes * Vanda Aldridge APRN - 10/27/2020 1:58 PM EDT Division [place] [address] Message sent to patient regarding her lab results. Vanda Aldridge APRN documented in this encounter Plan of Treatment Upcoming Encounters Date Type Department Care Team (Latest Contact Info) Description 12/25/2023 9:[address] [place] [address] [facility] [place] [address] 12/29/2023 Hospital Encounter [place] [phone] [facility] [place] [address] Paroxysmal atrial fibrillation 12/29/2023 7:30 AM EDT - 12/29/2023 12:00 PM EDT Surgery [place]rophys[place] [phone] [facility] [place] [place] [address] ELECTROPHYSIOLOGY PROCEDURE 01/14/2024 10:40 AM EDT Office Visit Cardiology at [address] [address] [facility] [address] Scheduled Procedures Name Priority Associated Diagnoses Date/Ti me TRANSESOPHAGEAL ECHO DURING CATH/EP PROCEDURE Paroxysmal atrial fibrillation 12/29/2023 7:30 AM EDT documented as of this encounter Goals Goal Patient Goal Type Associated Problems Recent Progress Patient-Stated? Author DH Home Medication Compliance and Understanding Patient Facing Action Plan No Lani Vargas, [facility] Note: Maintain control of disease for as long as possible as assessed by tumor marker levels and scans in clinic every 3 to 6 months documented as of this encounter Visit Diagnoses Not on filedocumented in this encounter Care Teams Police Aide Relationship Specialty Start Date End Date Evelyne Hunt APRN [address] [place] [address] PCP - General Internal Medicine 09/23/17 documented as of this encounter
--- OUTSIDE RECORDS SUMMARY | 2023-12-01 02:13 | XMS_ITS | Encounter Summary ---
Author Organization [facility] [place] [address] Care Team Providers Care Bobbin Stripper Name Role Phone MarileeEvelyne APRN Primary Care Provider [phone] Reason for Visit * Auth/Cert Specialty Diagnoses [...] Expiration Date Visits Re quested Visits Authorized [id number] 1 1 Encounter Details Date Type Department Care Team (Late st Contact Info) Description 05/01/2021 11:05 AM EST - 05/01/2021 11:50 AM EST Surgery [place] [address] Arlin Agudelo MD [facility] [place] [address] COLONOSCOPY, POLYPECTOMY, REMOVAL LESION BY SNARE (WRVU 4.57) Social History Tobacco Use Types Packs/Day Years [...] encounter Discharge Instructions * Discharge Instructions* Fanta Novak RN - 05/01/2021 11:19 AM EST Colonoscopy: [...] occurs, please contact your Doctor. Please call [phone] before 8pm Mon-Fri with problems, questions or concerns. If you call after 8pm or on weekends, call the Hospital at [phone] and ask to speak to the Tobacco Stripping Machine Operator international broadcast music librarian and the vacuum closing machine operator will contact that person for you. When should you call for help? Call [phone] anytime you think you may need emergency [...] any problems. Where can you learn more? [facility] View your After Visit Summary and more online at [email or web address] If you would like to provide feedback about your hospital experience, please call the Office of Patient and Family Relations at . If you have received this After Visit Summary in error, please immediately return it in person to the department, or notify the [facility] Privacy Office by calling toll free at between the hours of 8AM and 5PM to arrange for our retrieval of the documents at no cost to you. Content Version: 12.2 ?? [id number] [employer]. Care instructions adapted under license by [facility]. If you have questions about a medical condition or this instruction, always ask your healthcare professional. [employer] disclaims any warranty or liability for your [...] Tablet Take 25 mg by mouth. 022 HYDROcodone-acetamino phen ([place]) 5-325 mg Tablet Take 325 mg by [...] Take 25 mg by mouth. ??? HYDROcodone-acetaminophen ([place]) 5-325 mg Tablet Take 325 mg by [...] past 24 hour(s)). ASSESSMENT AND PLAN Gabi Luna is a 60 y.o. y/o who presents [...] sedation) Arlin Agudelo MD Gastroenterology attending Pager [phone] documented in this encounter Plan of Treatment Upcoming Encounters Date Type Department Care Team (Latest Contact Info) Description 12/25/2023 9:[address] [place] [address] Xavier Malhotra MD [facility] [place] [address] 12/29/2023 Hospital Encounter [place] [phone] Xavier Malhotra MD [facility] [place] [address] Paroxysmal atrial fibrillation 12/29/2023 7:30 AM EDT - 12/29/2023 12:00 PM EDT Surgery [place] [address] Xavier Malhotra MD [facility] [place] [place] [address] ELECTROPHYSIOLOGY PROCEDURE 01/14/2024 10:40 AM EDT Office Visit Cardiology at [address] [phone] Carmen Castaneda PA [facility] [place] [address] Scheduled Procedures Name Priority Associated Diagnoses Date/Ti me TRANSESOPHAGEAL ECHO DURING CATH/EP PROCEDURE Paroxysmal atrial fibrillation 12/29/2023 7:30 AM EDT documented as of this encounter Goals Goal Patient Goal Type Associated Problems Recent Progress Patient-Stated? Author [facility] Medication Compliance and Understanding Patient Facing [...] 11:06 AM EST Colonoscopy, Remv Jayro Keenan ([id number]) 05/01/2021 10:44 AM EST Encounter for screening for malignant neoplasm of colon / Nonrheumatic aortic (valve) stenosis COLONOSCOPY Routine 05/01/2021 10:39 AM EST documented in this encounter Results * Specimen to Pathology (05/01/2021 11:12 AM EST) AP Specimen 05/01/2021 11:1 2 AM EST 05/01/2021 11:12 AM EST Narrative [facility] - 05/01/2021 11:12 AM EST Specimen requisition ordered. ??Separate Pathology report to follow Arlin Agudelo MD PATHOLOGY/CYTOLOG Y ORDERABLES [facility] [place] [address] * Surgical Pathology Report (05/01/2021 11:06 AM EST) Final Diagnosis [id number] ? Location: 4T; EA10; A The signing pathologist has (i) examined the relevant preparation(s) for the specimen(s) and (ii) rendered or confirmed the diagnosis(es). . ?Surgical Pathology DIAGNOSIS A - Ascending colon polyp 3mm, resection: - ??Tubular adenoma. Electronically signed by: ?Jimmy HORTA, Regina Verified: ??05/05/2021 21:00 ??Pathologist Performed at: ??-[facility] Dept. of Pathology, [place], [place] SPECIMEN(S) SUBMITTED A - Ascending colon polyp 3mm, resection (1) CLINICAL INFORMATION 60 year-old female Screening colonoscopy SPECIMEN PROCESSING A - Labeled/Fixativ e: Ascending colon polyp 3 mm, formalin. Quantity/Size: Five, 0.2-0.4 cm. Tissue Description: Soft, foster-pink tissues. Sections/Proces sing: Submitted en toto ??in 1 cassette labeled A1. ??wilber 05/05/2021 9:00 PM EST [facility] GI Biopsy 05/01/2021 11:0 6 AM EST 05/01/2021 11:06 AM EST Arlin Agudelo MD PATHOLOGY/CYTOLOG Y ORDERABLES Performing Organization Address City/State/[facility] Co de Phone Number [facility] [place] [address] * COLONOSCOPY (05/01/2021 10:39 AM EST) COLONOSCOPY [facility] Procedure Date: 05/01/2021 10:39 AM ? Patient Name: Gabi Luna ? Date of : 1960 ? Age: 60 ? Order #: [id number] ? Instrument Name: [id number] ? Procedure: ? Colonoscopy Indications: ? Screening for colorectal malignant ? neoplasm Providers: ? Arlin Agudelo MD, Adriana Gray ? Alvarez Phipps, House Cleaner Referring : ?Evelyne Hunt Medicines: ? Midazolam [...] preparation was evaluated using ? the BBPS ([place] Bowel Preparation ? Scale) with scores of: [...] mcg/mL) multi-dose injection ONCE PRN, Starting on Fri05/01/21 at 1048, Until Fri05/01/21 at 1356, Intra-Operative (Intra-Procedure), Routine Given 05/01/2021 11:01 AM EST 25 mcg Given 05/01/2021 10:59 AM EST 25 mcg Given 05/01/2021 10:58 AM EST 25 mcg lactated ringers infusion 100 mL/hr, Intravenous, CONTINUOUS, Starting on Fri05/01/21 at 1030, Until Fri05/01/21 at 1356, Endoscopy (Day of Procedure) midazolam (pf) (Versed) (1 mg/mL) multi-dose injection ONCE PRN, Starting on Fri05/01/21 at 1048, Until Fri05/01/21 at 1356, Intra-Operative (Intra-Procedure), Routine Given 05/01/2021 11:00 AM EST 0.5 mg Given 05/01/2021 10:58 AM EST 0.5 mg Given 05/01/2021 10:57 AM EST 0.5 mg documented in this encounter Active and [...] RN) documented in this encounter Care Teams Bobbin Stripper Relationship Specialty Start Date End Date Evelyne Hunt APRN [address] [place] [address] PCP - General Internal Medicine 09/23/17 documented as of this encounter
--- OUTSIDE RECORDS SUMMARY | 2023-12-01 02:13 | XMS_ITS | Encounter Summary ---
Author Organization [facility] [place] [address] Care Team Providers Care Visual Artist Name Role Phone Kiki Huntyce Dat STEVEN Primary Care Provider [phone] Encounter Details Date Type Department Care Team (Late st Contact Info) Description 07/11/2021 Telephone [place] [address] Sayda Doan RN Social History Tobacco Use [...] Telephone Encounter - Sayda Doan RN - 07/11/2021 9:33 AM EDT Patient returned call to clinic. She states she doesn't think her skin condition is related to her parp. Patient has a hx of vitiligo in the past, and reports she's been under increased stress lately. She has an appointment with dermatology. She denies any further questions or concerns at this time. * Telephone Encounter - Sayda Doan RN - 07/11/2021 9:07 AM EDT Returned call to patient. Reached voicemail. Left message requesting call back. This patient has a few spots of discoloration on her skin, she is on a med from Dr. Vallejo wondering if its related. Please call documented in this encounter Plan of Treatment Upcoming Encounters Date Type Department Care Team (Latest Contact Info) Description 12/25/2023 9:[address] [place] [address] Xavier Malhotra MD [facility] [place] [address] 12/29/2023 Hospital Encounter Electrophysiology Lab at [place] [phone] Xavier Malhotra MD [facility] [place] [address] Paroxysmal atrial fibrillation 12/29/2023 7:30 AM EDT - 12/29/2023 12:00 PM EDT Surgery [place] [address] Xavier Malhotra MD [facility] [place] [address] ELECTROPHYSIOLOGY PROCEDURE 01/14/2024 10:40 AM EDT Office Visit Cardiology at [address] [phone] Carmen Castaneda PA [facility] [place] [address] Scheduled Procedures Name Priority Associated Diagnoses Date/Ti [...] on filedocumented in this encounter Care Teams Visual Artist Relationship Specialty Start Date End Date Evelyne Hunt, PRESSER MACHINE [address] [place] [address] PCP - General Internal Medicine 09/23/17 documented as of this encounter
--- OUTSIDE RECORDS SUMMARY | 2023-12-01 02:13 | XMS_ITS | Encounter Summary ---
Author Organization [facility] [place] [address] Care Team Providers Care Traffic Recorder Name Role Phone Evelyne Hunt Dat STEVEN Primary Care Provider [phone] Encounter Details Date Type Department Care Team (Late st Contact Info) Description 05/15/2021 Orders Only [place] [address] Sayda Doan RN History of ovarian cancer [...] as of this encounter Progress Notes * Sayda Doan RN - 05/15/2021 10:56 AM EST Called patient and left message. Informed her that her labs will need to be drawn every 3 months now. Her next lab draw will be due 08/06/21 and the orders for these labs were sent to [facility]. Left a call back number in case she has any questions. documented in this encounter Plan of Treatment Upcoming Encounters Date Type Department Care Team (Latest Contact Info) Description 12/25/2023 9:[address] [place] [address] Xavier Malhotra MD [facility] [place] [address] 12/29/2023 Hospital Encounter Electrophysiology Lab at [place] [phone] Xavier Malhotra MD [facility] [place] [address] Paroxysmal atrial fibrillation 12/29/2023 7:30 AM EDT - 12/29/2023 12:00 PM EDT Surgery [place] [address] Xavier Malhotra MD [facility] [place] [address] ELECTROPHYSIOLOGY PROCEDURE 01/14/2024 10:40 AM EDT Office Visit Cardiology at [address] [address] Carmen Castaneda PA [facility] [place] [address] Scheduled Procedures Name Priority Associated Diagnoses Date/Ti me TRANSESOPHAGEAL ECHO DURING CATH/EP PROCEDURE Paroxysmal atrial fibrillation 12/29/2023 7:30 AM EDT documented as of this encounter Goals Goal Patient Goal Type Associated Problems Recent Progress Patient-Stated? Author DH Friona Medication Compliance and Understanding Patient Facing Action [...] fibrillation documented in this encounter Care Teams Traffic Recorder Relationship Specialty Start Date End Date Evelyne Hunt APRN [address] [place] [address] PCP - General Internal Medicine 09/23/17 documented as of this encounter
--- OUTSIDE RECORDS SUMMARY | 2023-12-01 02:13 | XMS_ITS | Encounter Summary ---
Author Organization [facility] [place] [address] Care Team Providers Care Book Trimmer Name Role Phone Kiki Huntyce Dat STEVEN Primary Care Provider [phone] Reason for Visit * Reason Comments Medication Refill Encounter Details Date Type Department Care Team (Late st Contact Info) Description 05/17/2021 Specialty [place] [phone] Lizz Jones [facility] [...] Progress Notes * Lizz Jones RPH - 05/17/2021 10:10 AM EST Clinical Management Plan: Refill Specialty Pharmacy Consultation; Lizz Jones [facility] Comprehensive Medication Management (CMM) Gabi Benitoyvonne [...] complete drug. Medication Reconciliation Discrepancies (compared to [facility] med list) No Specialty Pharmacy Refill Questionnaire Refill Questionnaire 05/17/2021 What is the name of the specialty medication you are refilling? Zejula Are you taking any new medications? No Please explain - Any new medical condition? No Any new allergies? No Any new side effects that are bothersome? No What date will you need this fill by? 05/25/2021 Adherence: Any missed doses? No Patient understands no changes to current drug regimen were made. Lizz Jones RPH 05/17/21 10:15 AM documented in this encounter Plan of Treatment Upcoming Encounters Date Type Department Care Team (Latest Contact Info) Description 12/25/2023 9:[address] [place] [address] Xavier Malhotra MD [facility] [place] [place] [address] 12/29/2023 Hospital Encounter [place] [address] Xavier Malhotra MD [facility] [place] [place] [address] Paroxysmal atrial fibrillation 12/29/2023 7:30 AM EDT - 12/29/2023 12:00 PM EDT Surgery [place] [phone] Xavier Malhotra MD [facility] [place] [address] ELECTROPHYSIOLOGY PROCEDURE 01/14/2024 10:40 AM EDT Office Visit Cardiology at [address] [place] [address] Carmen Castaneda PA [facility] [place] [address] Scheduled Procedures Name Priority Associated Diagnoses Date/Ti me TRANSESOPHAGEAL ECHO DURING CATH/EP PROCEDURE Paroxysmal atrial fibrillation 12/29/2023 7:30 AM EDT documented as of this encounter Goals Goal Patient Goal Type Associated Problems Recent Progress Patient-Stated? Author DH Home Medication Compliance and Understanding Patient Facing Action Plan No Lani Vargas, [facility] Note: Maintain control of disease for as long as possible as assessed by tumor marker levels and scans in clinic every 3 to 6 months documented as of this encounter Visit Diagnoses Not on filedocumented in this encounter Care Teams Book Trimmer Relationship Specialty Start Date End Date Evelyne Hunt APRN [address] [place] [address] PCP - General Internal Medicine 09/23/17 documented as of this encounter
--- OUTSIDE RECORDS SUMMARY | 2023-12-01 02:13 | XMS_ITS | Encounter Summary ---
Author Organization [facility] [place] [address] Care Team Providers Care Editorial Clerk Name Role Phone Evelyne Hunt Dat STEVEN Primary Care Provider [phone] Reason for Visit * Reason Comments Specialty Pharmacy Review Zejula Encounter Details Date Type Department Care Team (Late st Contact Info) Description 12/01/2020 Specialty [place] [address] Kennedi Soler Social History Tobacco Use Types Packs/Day Years [...] as of this encounter Progress Notes * Kennedi Soler - 12/01/2020 11:59 PM EDT The [facility] has completed a benefits investigation for Gabi Luna to review their eligibility to fill at [facility]. Per patient's medication list they are prescribed ZEJULA and the medication has been filled at the [facility]. documented in this encounter Plan of Treatment Upcoming Encounters Date Type Department Care Team (Latest Contact Info) Description 12/25/2023 9:[address] [place] [phone] Xavier Malhotra MD [facility] [place] [address] 12/29/2023 Hospital Encounter Electrophysiology Lab at [place] [address] Xavier Malhotra MD [facility] [place] [address] Paroxysmal atrial fibrillation 12/29/2023 7:30 AM EDT - 12/29/2023 12:00 PM EDT Surgery Electrophysiology Lab at [place] [address] Xavier Malhotra MD [facility] [place] [address] ELECTROPHYSIOLOGY PROCEDURE 01/14/2024 10:40 AM EDT Office Visit Cardiology at [place] [address] Carmen Castaneda PA [facility] [place] [address] Scheduled Procedures Name Priority Associated Diagnoses Date/Ti me TRANSESOPHAGEAL ECHO DURING CATH/EP PROCEDURE Paroxysmal atrial fibrillation 12/29/2023 7:30 AM EDT documented as of this encounter Goals Goal Patient Goal Type Associated Problems Recent Progress Patient-Stated? Author [facility] Medication Compliance and Understanding Patient Facing Action Plan Lani Love, [facility] Note: Maintain control of disease for as long as possible as assessed by tumor marker levels and scans in clinic every 3 to 6 months documented as of this encounter Visit Diagnoses Not on filedocumented in this encounter Care Teams Editorial Clerk Relationship Specialty Start Date End Date Evelyne Hunt APRN [address] [facility] [place] [address] PCP - General Internal Medicine 09/23/17 documented as of this encounter
--- OUTSIDE RECORDS SUMMARY | 2023-12-01 02:13 | XMS_ITS | Encounter Summary ---
Author Organization [facility] [place] [address] Care Team Providers Care Group Sales Representative Name Role Phone Marilee, Evelyne Daugherty APRN Primary Care Provider [phone] Encounter Details Date Type Department Care Team (Late st Contact Info) Description 02/06/2021 Telephone [place] [address] Sayda Doan RN Social History Tobacco Use [...] Telephone Encounter - Sayda Doan RN - 02/06/2021 3:30 PM EDT Returned call to patient. Patient states it's all being figured out. She reports she was experiencing severe abdominal pain that felt like heart burn in her lower abdomen. She also had bad diarrhea for a couple of days. She saw her GP and had a CT, blood work, and stool panel done and they all came back negative. She denies nausea and vomiting. She states she is just leaving her lathe winder now, they are trying to regulate her bowels. Informed patient that this would be forwarded to Dr. Vallejo as an FYI. She denies any further questions or concerns at this time. * Telephone Encounter - Sayda Doan RN - 02/06/2021 3:29 PM EDT ----- Message from Justina Jolly sent at 02/01/2021 8:09 AM EDT ----- Regarding: Abdominal Pain Caller's name: Ivana Luna Call back #: [phone] Patient's provider/team: Dr Vallejo Reason for call: Abdominal pain she is asking to speak with Dr Vallejo regarding this. I told her Iwould be sending the message to the Nurses documented in this encounter Plan of Treatment Upcoming Encounters Date Type Department Care Team (Latest Contact Info) Description 12/25/2023 9:[address] Scan at [place] [phone] Xavier Malhotra MD [facility] [place] [address] 12/29/2023 Hospital Encounter [place] [address] Xavier Malhotra MD [facility] [place] [address] Paroxysmal atrial fibrillation 12/29/2023 7:30 AM EDT - 12/29/2023 12:00 PM EDT Surgery [place] [phone] Xavier Malhotra MD [facility] [place] [address] ELECTROPHYSIOLOGY PROCEDURE 01/14/2024 10:40 AM EDT Office Visit Cardiology at [place] [phone] Carmen Castaneda PA [facility] [place] [address] Scheduled Procedures Name Priority Associated Diagnoses Date/Ti [...] on filedocumented in this encounter Care Teams Group Sales Representative Relationship Specialty Start Date End Date Evelyne Hunt APRN [address] [facility] [place] [address] PCP - General Internal Medicine 09/23/17 documented as of this encounter
--- OUTSIDE RECORDS SUMMARY | 2023-12-01 02:13 | XMS_ITS | Encounter Summary ---
Author Organization Formerly [facility] Address [facility] [place] [address] Care Team Providers Care Dental Appliance Fixer Name Role Phone Evelyne Hunt TENISHA Primary Care Provider [phone] Encounter Details Date Type Department Care Team (Late Contact Info) Description 09/05/2020 Telephone Cardiology at [address] [phone] Erick Subramanian MD [facility] DR [place] [address] Social History Tobacco Use Types Packs/Day Years [...] encounter Miscellaneous Notes * Telephone Encounter - Erick Subramanian MD - 09/05/2020 1:53 PM EDT I spoke with Ivana today and relayed the results of her Zio patch. I reassured her that while she had episodes of SVT, they are short lived. She was happy to know that the symptoms she occasionally feels are associated with rare PVCs and not something more serious. She will plan to continue her medications for now and she feels quite well. She will follow-up with me as scheduled in [facility]. documented in this encounter Plan of Treatment Upcoming Encounters Date Type Department Care Team (Latest Contact Info) Description 12/25/2023 9:[address] Scan at [place] [phone] Xavier Malhotra MD [facility] E[place] [address] 12/29/2023 Hospital Encounter Electrophysiology Lab at [place] [phone] Xavier Malhotra MD [facility] [place] [address] Paroxysmal atrial fibrillation 12/29/2023 7:30 AM EDT - 12/29/2023 12:00 PM EDT Surgery Electrophysiology Lab at [place] [phone] Xavier Malhotra MD [facility] [address] [place] [address] ELECTROPHYSIOLOGY PROCEDURE 01/14/2024 10:40 AM EDT Office Visit Cardiology at [place] [phone] Carmen Castaneda PA [facility] [place] [address] Scheduled Procedures Name Priority Associated Diagnoses Date/Ti [...] on filedocumented in this encounter Care Teams Dental Appliance Fixer Relationship Specialty Start Date End Date Evelyne Hunt, DIRECTOR OF INVESTIGATIONS [address] [place] [address] PCP - General Internal Medicine 09/23/17 documented as of this encounter
--- OUTSIDE RECORDS SUMMARY | 2023-12-01 02:13 | XMS_ITS | Encounter Summary ---
Author Organization Formerly [facility] [place] [address] Care Team Providers Care Inspector Plug Seam Name Role Phone Kiki Huntyce Dat STEVEN Primary Care Provider [phone] Reason for Visit * Reason Comments Medication Management Encounter Details Date Type Department Care Team (Late st Contact Info) Description 09/21/2020 Specialty [place] [phone] Yeny Marcano RPH Social History Tobacco Use [...] Progress Notes * Yeny Marcano RPH - 09/21/2020 8:55 AM EDT Clinical Management Plan: Refill Specialty Pharmacy Consultation; Yeny Marcano RPH Comprehensive Medication Management (CMM) Gabi Smithrhonda Ms. Gabi Luna is a 59 y.o. (1960) female who was contacted in [...] complete drug. Medication Reconciliation Discrepancies (compared to [facility] med list) No Specialty Pharmacy Refill Questionnaire Refill Questionnaire 09/21/2020 What is the name of the specialty medication you are refilling? Zejula Are you taking any new medications? No Any new medical condition? No Any new allergies? No Any new side effects that are bothersome? No What date will you need this fill by? 09/26/2020 Adherence: Any missed doses? No Patient understands no changes to current drug regimen were made.. Yeny Marcano Red 09/21/20 8:56 AM documented in this encounter Plan of Treatment Upcoming Encounters Date Type Department Care Team (Latest Contact Info) Description 12/25/2023 9:[address] [place] [address] Xavier Malhotra MD [facility] [place] [place] [address] 12/29/2023 Hospital Encounter [place] [address] Xavier Malhotra MD [facility] [place] [place] [address] Paroxysmal atrial fibrillation 12/29/2023 7:30 AM EDT - 12/29/2023 12:00 PM EDT Surgery [place] [phone] Xavier Malhotra MD [facility] [place] [address] ELECTROPHYSIOLOGY PROCEDURE 01/14/2024 10:40 AM EDT Office Visit Cardiology at [address] [address] Carmen Castaneda PA [facility] [place] [address] Scheduled Procedures Name Priority Associated Diagnoses Date/Ti [...] on filedocumented in this encounter Care Teams Inspector Plug Seam Relationship Specialty Start Date End Date Evelyne Hunt APRN [address] [place] [address] PCP - General Internal Medicine 09/23/17 documented as of this encounter
--- OUTSIDE RECORDS SUMMARY | 2023-12-01 02:13 | XMS_ITS | Encounter Summary ---
Author Organization Formerly [facility] Address [facility] [place] [address] Care Team Providers Care Transformer Builder Name Role Phone Evelyne Hunt TENISHA Primary Care Provider [phone] Reason for Visit * Reason Comments TeleHealth Encounter Details Date Type Department Care Team (Latest Contact Info) Description 05/14/2021 3:20 PM EST TH Visit (TeleHealth) [place] [address] [facility] [place] [address] History of ovarian cancer Social History Tobacco [...] as of this encounter Progress Notes * Joy Nick LNA - 05/14/2021 3:20 PM EST Patient not reached to complete the check-in process or review medications and allergies prior to telehealth visit. Left message of reminder for upcomming telehealth visit. * Pasquale Mederos MD - 05/14/2021 3:20 PM EST Gynecologic Oncology-Telehealth Encounter. ?? Reason/purpose for telehealth encounter: ovarian cancer, niraparib followup Patient's physical location at the time of this telehealth/telephone visit: Home, in [place]. ?? 3:13-330 on the video with an additional 5 mins in documentation and coordination of care Oncology history: Stage IIIb mixed endometrioid and [...] well from a cancer standpoint. She has been walking with a friend who is also a patient of mine. She has good energy. She did quit her job to focus on her family and is caring for her grandkids when she can. She does worry about her Cr and her alk phos as the RN from my office called her last week and thenshe got very worried. Her bowels are back to normal. She moves them regularly. She had her colonoscopy on 05/01/21. She has been working with a rd manager and feels great. latest CA125 = 8 on 05/08/21. Cr = 1.2 and alk phos = 118 Remainder of labs wnl ?? Items to Complete - (To-Do List): Gabi Luna is a 60 y.o. 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 1. Tolerating PARP well. Continue at 100 mg at night. 2. will assess lab interval given her stability on zejula 3. followup via telehealth in 3 months or sooner for concerns. PASQUALE MEDEROS MD documented in this encounter Plan of Treatment Upcoming Encounters Date Type Department Care Team (Latest Contact Info) Description 12/25/2023 9:[address] [place] [address] [facility] [place] [place] [address] 12/29/2023 Hospital Encounter [place] [phone] [facility] [place] [place] [address] Paroxysmal atrial fibrillation 12/29/2023 7:30 AM EDT - 12/29/2023 12:00 PM EDT Surgery [place] [phone] [facility] [place] [place] [address] ELECTROPHYSIOLOGY PROCEDURE 01/14/2024 10:40 AM EDT Office Visit Cardiology at [address] [address] [facility] [place] [address] Scheduled Procedures Name Priority Associated Diagnoses Date/Ti me TRANSESOPHAGEAL ECHO DURING CATH/EP PROCEDURE Paroxysmal atrial fibrillation 12/29/2023 7:30 AM EDT documented as of this encounter Goals Goal Patient Goal Type Associated Problems Recent Progress Patient-Stated? Author DH Home Medication Compliance and Understanding Patient Facing Action Plan Lani Love, [facility] Note: Maintain control of disease for as long as possible as assessed by tumor marker levels and scans in clinic every 3 to 6 months documented as of this encounter Visit Diagnoses Diagnosis History of ovarian cancer Personal history of malignant neoplasm of ovary Paroxysmal atrial fibrillation Atrial fibrillation Paroxysmal atrial fibrillation Atrial fibrillation documented in this encounter Care Teams Transformer Builder Relationship Specialty Start Date End Date Evelyne Hunt APRN [address] [facility] [place] [address] PCP - General Internal Medicine 09/23/17 documented as of this encounter
--- OUTSIDE RECORDS SUMMARY | 2023-12-01 02:13 | XMS_ITS | Encounter Summary ---
Author Organization Formerly [facility] [place] [address] Care Team Providers Care Larry Operator Name Role Phone Evelyne Hunt Dat STEVEN Primary Care Provider [phone] Encounter Details Date Type Department Care Team (Late st Contact Info) Description 06/15/2021 Specialty [place] [phone] Eulogio Martinez V, [facility] Social History Tobacco Use Types [...] as of this encounter Progress Notes * Eulogio Martinez V [facility] - 06/15/2021 12:39 PM EST Clinical Management Plan: Refill Specialty Pharmacy Consultation; Eulogio Martinez [facility] Comprehensive Medication Management (CMM) Gabi Smithrhonda Ms. [...] drug. Medication Reconciliation Discrepancies (compared to [facility] med list) No Specialty Pharmacy Refill Questionnaire Refill Questionnaire 06/15/2021 What is the name of the specialty medication you are refilling? Zejula Are you taking any new medications? No Please explain - Any new medical condition? No Any new allergies? No Any new side effects that are bothersome? No What date will you need this fill by? 06/24/2021 Adherence: Any missed doses? No Patient understands no changes to current drug regimen were made. Eulogio Martinez RPH 06/15/21 12:40 PM documented in this encounter Plan of Treatment Upcoming Encounters Date Type Department Care Team (Latest Contact Info) Description 12/25/2023 9:[address] [place] [address] Xavier Malhotra MD [facility] [place] [place] [address] 12/29/2023 Hospital Encounter [place] [address] Xavier Malhotra MD [facility] [place] [place] [address] Paroxysmal atrial fibrillation 12/29/2023 7:30 AM EDT - 12/29/2023 12:00 PM EDT Surgery [place] [phone] Xavier Malhotra MD [facility] [place] [address] ELECTROPHYSIOLOGY PROCEDURE 01/14/2024 10:40 AM EDT Office Visit Cardiology at [address] [address] Carmen Castaneda PA [facility] [place] [address] Scheduled Procedures Name Priority Associated Diagnoses Date/Ti [...] on filedocumented in this encounter Care Teams Larry Operator Relationship Specialty Start Date End Date Evelyne Hunt APRN [address] [place] [address] PCP - General Internal Medicine 09/23/17 documented as of this encounter
--- OUTSIDE RECORDS SUMMARY | 2023-12-01 02:13 | XMS_ITS | Encounter Summary ---
Author Organization [facility] Address [facility] [place] [address] Care Team Providers Care Access Analyst Name Role Phone Evelyne Hunt Dat STEVEN Primary Care Provider [phone] Reason for Visit * Reason Comments Medication Refill Encounter Details Date Type Department Care Team (Late st Contact Info) Description 03/19/2021 Refill Cardiology at [address] [phone] Franklyn Toure MD [facility] [place] [address] Medication Refill Social History Tobacco [...] 9:[address] [place] [address] Xavier Malhotra MD [facility] [place] [address] 12/29/2023 Hospital Encounter [place] [address] Xavier Malhotra MD [facility] [place] [address] Paroxysmal atrial fibrillation 12/29/2023 7:30 AM EDT - 12/29/2023 12:00 PM EDT Surgery [place] [phone] Xavier Malhotra MD [facility] [place] [address] ELECTROPHYSIOLOGY PROCEDURE 01/14/2024 10:40 AM EDT Office Visit Cardiology at [address] [phone] Carmen Castaneda PA [facility] [place] [address] Scheduled Procedures Name Priority Associated Diagnoses Date/Ti [...] fibrillation documented in this encounter Care Teams Access Analyst Relationship Specialty Start Date End Date Evelyne Hunt APRN [address] [place] [address] PCP - General Internal Medicine 09/23/17 documented as of this encounter
--- OUTSIDE RECORDS SUMMARY | 2023-12-01 02:13 | XMS_ITS | Encounter Summary ---
Author Organization [facility] Address [facility] [place] [address] Care Team Providers Care Steam Press Tender Name Role Phone Evelyne Hunt Dat STEVEN Primary Care Provider [phone] Encounter Details Date Type Department Care Team (Late st Contact Info) Description 07/20/2021 8:45 AM EDT Office Visit Dermatology at [facility] [address] [place] [address] Mitzi Benton MD [facility] DR HAY[place] [address] Vitiligo; Actinic keratosis Social History Tobacco Use [...] Progress Notes * Mitzi Fitzgerald MD - 07/20/2021 8:45 AM EDT Images from the original note [...] relevant family history N Social History 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 Patient returns to clinic today for the following: discoloration of skin on face and backs of hands. Itchy at times. Cerave moisturizer which helps. -Red bump on central forehead. Present since last visit. Previously treated with cryotherapy. Last visit at Dermatology: 03/06/2021 Medications: Reviewed in eD-H Allergies: Reviewed in eD-H Skin Examination: Focused skin examination of the central forehead, left forehead, right lateral eyebrow, right deshpande,right ventral wrist, and b/l dorsal wrists was normal with the exception of the findings below. Assessment/Plan # Actinic Keratosis-0.2-0.3cm scaly irregular pink papule(s) on the central forehead - Discussed the natural history and etiology of actinic keratoses including the premalignant potential of these lesions. -Discussed treatment options. Procedure Note: Procedure: Destruction of lesion(s) with cryotherapy. Number: 1 Location: as above Discussed procedure and expectations including risks (including risk of hypopigmentation) and benefits. Verbal consent obtained. Frozen with LN2, 15-30 second thaw time, TWICE. There were no complications; the patient tolerated the procedure well. Post-procedure expectations and wound care were reviewed. # Vitiligo, active, chronic with exacerbation - Depigmented macules and patches on the left forehead, right lateral eyebrow, right deshpande, right ventral wrist, and b/l dorsal wrists. Pt notes recent spread over the past week. - Discussed diagnosis, classification as an autoimmune disease, and difficulty with treatment - Reviewed treatment options including camouflaging makeup, protopic, topical steroids and phototherapy. Discussed variable responses and gradual improvement over months to years. - Start Rx: Protopic 0.1% ointment: Use twice daily for 1 week and alternate with clobetasol excepton face. - Start Rx Clobetasol 0.05% ointment: Use twice daily for 1 week and alternate with protopic. Do not use on face. - Start Rx: Dexamethasone 4mg: Take one tablet Friday and Friday for 3 months. - Side effects of systemic steroids reviewed including but not limited to immune suppression, increased risk of infection, HPA suppression, weight gain, increase in blood sugar/diabetes, increase in blood pressure/hypertension, glaucoma/cataracts, mood changes, sleep disturbances, osteoporosis/fract ures/avascular necrosis, GI upset, ulcers, acne, and/or hair growth. Discussed that most side effects are lessened with non-continuous dosing. -osteoporosis prophylaxis with calcium/vitamin D recommended. Other: ??? OTC skin products discussed RTC: 3 month vitiligo follow up []Note routed to epic interface analyst []Recall placed in scheduling system [x]Appointment scheduled at checkout Scribe attestation: Anu Seaman LPN has performed the documentation for this encounter in the presence of and acting as a scribe for Mitzi Fitzgerald MD. I performed the above scribed service and agree with the accuracy of the documentation in this encounter. Reviewed and signed by: Mitzi Fitzgerald MD Dermatology [facility] documented in this encounter Plan of Treatment Upcoming Encounters Date Type Department Care Team (Latest Contact Info) Description 12/25/2023 9:[address] [place] [address] Xavier Malhotra MD [facility] [place] [address] 12/29/2023 Hospital Encounter [place] [address] Xavier Malhotra MD [facility] [place] [address] Paroxysmal atrial fibrillation 12/29/2023 7:30 AM EDT - 12/29/2023 12:00 PM EDT Surgery [place] [address] Xavier Malhotra MD [facility] ELECTROPHYSRIS[place] [address] ELECTROPHYSIOLOGY PROCEDURE 01/14/2024 10:40 AM EDT Office Visit Cardiology at [address] [phone] Carmen Castaneda PA [facility] [place] [address] Scheduled Procedures Name Priority Associated Diagnoses Date/Ti [...] fibrillation documented in this encounter Care Teams Steam Press Tender Relationship Specialty Start Date End Date Evelyne Hunt APRN [address] [place] [address] PCP - General Internal Medicine 09/23/17 documented as of this encounter
--- OUTSIDE RECORDS SUMMARY | 2023-12-01 02:13 | XMS_ITS | Encounter Summary ---
Author Organization [facility] [place] [address] Care Team Providers Care Elementary Assistant Principal Name Role Phone Evelyne Hunt APRN Primary Care Provider [phone] Encounter Details Date Type Department Care Team (Late st Contact Info) Description 11/15/2020 Notes Only [place] [address] Vanda Aldridge THREAD WINDER [employer] [facility] DR OBSTETRICS & [place] [address] Social History Tobacco Use Types Packs/Day Years [...] Progress Notes * Vanda Aldridge APRN - 11/15/2020 3:49 PM EDT Division [place] [address] Patient message received stating that she has a rash, as well as asking if she can have a colonoscopy as her primary care provider has requested that she have this exam. Call to patient. There was no answer, and I left her a voicemail. Message stated it was fine from the perspective of gynecologic oncology for her to have a colonoscopy per her primary care provider. Message left to call back or send a message with further information about the rash. Vanda Aldridge APRN documented in this encounter Plan of Treatment Upcoming Encounters Date Type Department Care Team (Latest Contact Info) Description 12/25/2023 9:[address] [place] [address] Xavier Malhotra MD [facility] [place] [address] 12/29/2023 Hospital Encounter [place] [address] Xavier Malhotra MD [facility] [place] [address] Paroxysmal atrial fibrillation 12/29/2023 7:30 AM EDT - 12/29/2023 12:00 PM EDT Surgery Electrophysiology Lab at [place] [address] Xavier Malhotra MD [facility] [place] [address] ELECTROPHYSIOLOGY PROCEDURE 01/14/2024 10:40 AM EDT Office Visit Cardiology at [address] Carmen Castaneda PA [facility] [place] [address] Scheduled Procedures Name Priority Associated Diagnoses Date/Ti me TRANSESOPHAGEAL ECHO DURING CATH/EP PROCEDURE Paroxysmal atrial fibrillation 12/29/2023 7:30 AM EDT documented as of this encounter Goals Goal Patient Goal Type Associated Problems Recent Progress Patient-Stated? Author DH Home Medication Compliance and Understanding Patient Facing Action Plan Lani Love, [facility] Note: Maintain control of disease for as long as possible as assessed by tumor marker levels and scans in clinic every 3 to 6 months documented as of this encounter Visit Diagnoses Not on filedocumented in this encounter Care Teams Elementary Assistant Principal Relationship Specialty Start Date End Date Evelyne Hunt, TH[employer] W[employer]ER [employer] [address] [place] [address] PCP - General Internal Medicine 09/23/17 documented as of this encounter
--- OUTSIDE RECORDS SUMMARY | 2023-12-01 02:13 | XMS_ITS | Encounter Summary ---
Author Organization Formerly [facility] [place] [address] Care Team Providers Care Shipping Inspector Name Role Phone MarileeEvleyne APRN Primary Care Provider [phone] Reason for Visit * Reason Comments Medication Management Patient Education Encounter Details Date Type Department Care Team (Late st Contact Info) Description 08/22/2020 Specialty [place] [id number] Lani Vargas [facility] Social History Tobacco Use Types [...] Progress Notes * Lani Coats RPH - 08/22/2020 12:34 PM EDT Specialty Pharmacy Consultation; Lani Coats Red Comprehensive Medication Management (CMM) Gabi Luna Diagnosis: Ovarian cancer Therapy Start Date: 01/06/20 Contact in person or via telephone:phone Ms. Gabi Luna is a 59 y.o. (1960) female who was called today. I spoke with the patient regarding their specialty medication Zejula and a review of the drug therapy was performed. The medication was filled as scheduled, and all related questions and concerns were addressed. The specialty pharmacy staff will follow up with the patient 5-7 days prior to next refill. Is the patient willing to proceed with the Clinical Assessment? Yes Summary and Recommendations: The patient was feeling well today and not experiencing any new side effects on her current dose and is thankful the GI disturbances have improved. She noted that her dose of Diltiazem has increased for improved rate control by her Chemical Process Equipment Operator and is looking forward to her next scans when appropriate to assess her progress on therapy but his happy that her lab levels remain stable. Med list reviewed with no major interactions identified. The patient is aware of the importance of lab follow up and infection prevention precautions such as proper hand washing, appropriate vaccination, and wearing a mask during an illness. The importance of adherence to treatment and strategies to improve compliance including use of pill boxes, calendar reminders, or routine alarms was discussed. The patientwas instructed to notify the clinic of any upcoming procedures or new medications and OTC products.Resources are available to the patient from the cancer center such as dieticians and social sciences professor. Administration, allergies, dosage, safe storage away from pets or children, handling, and disposal were reviewed. The pharmacy's contact information and operating hours with on-call services were given to the patient both verbally and in writing. The medication will be mailed out for a $0 copay. Clinic follow-up needed: no Allergies and Drug intolerance: Allergies Allergen [...] s/p FREDI/BSO/oment/PPALND/RSReanstomosis C56.9 ??? BRCA negative Z13.71 Special Dietary or Hydration Requirements: no There is no height or weight on file to calculate BMI. Medication reconciliation discrepancies (compared to [facility] med list): no Medication Adherence Patient reported X missed doses [...] next specialty medication refill: delivery by pharmacy Refills needed for supportive medications: not needed Medication List: Current Outpatient Medications Medication Sig Dispense Refill ??? dilTIAZem CD (Cardizem CD) 360 mg Capsule, Sust. Release 24 hr Take 360 mg by mouth daily. Take1 tablet by mouth daily. ??? niraparib (ZEJULA) capsule Take 100 mg by mouth daily for 30 days. Call clinic before starting medication. 30 Doses of treatment to dispense 11 ??? metoprolol succinate XL (Toprol-XL) 25 [...] by mouth daily. No current facility-administered medications for this visit. Most Recent Vitals: Ht Readings from Last 1 Encounters: 08/08/20 166.4 cm (5' 5.5) Wt Readings from Last 3 Encounters: 08/08/20 59.3 kg (130 lb 12.8 oz) 06/12/20 59 kg (130 lb) 05/09/20 60.2 kg (132 lb 11.2 oz) Temp Readings from Last 3 Encounters: 08/08/20 36.8 ??C (98.2 ??F) (Temporal) 02/24/20 36.6 ??C (97.9 ??F) (Temporal) 02/16/20 35.8 ??C (96.4 ??F) (Temporal) BP Readings from Last 3 Encounters: 08/08/20 (!) 134/92 02/24/20 115/76 02/16/20 124/80 Pulse Readings from Last 3 Encounters: 08/08/20 96 02/24/20 84 02/16/20 72 Pertinent Lab values: Lab Results Component Value Date NA 141 08/08/2020 K 4.5 08/08/2020 CL 105 08/08/2020 CO2 25 08/08/2020 BUN 14 08/08/2020 CREATININE 0.81 08/08/2020 GLUCOSE 128 07/31/2020 GLUCFASTING 91 08/08/2020 CALCIUM 9.9 08/08/2020 Lab Results Component Value Date ALT 28 07/31/2020 AST 18 07/31/2020 ALKPHOS 95 07/31/2020 BILITOT 0.8 07/31/2020 ALBUMIN 4.3 07/31/2020 PROT 7.6 07/31/2020 Lab Results Component Value Date WBC 4.6 08/08/2020 HGB 13.0 08/08/2020 HCT 37.0 08/08/2020 MCV 106.6 (H) 08/08/2020 PLATELET 164 08/08/2020 No results found for: HA1C Immunization History Administered Date(s) Administered ??? Influenza Vaccine (Novel) [id number], Injectable 04/06/2009 Assessment and Recommendations: Title Type of Medication Management: chronic disease management Recipient: beneficiary Provider: plan sponsor pharmacist Method of Contact: by telephone Cognitive Ability: good Cognitive Impairment Status Verified this Year: no Patient Counseling Counseled the patient on the following: medication safety precautions education provided, possible adverse effects and management discussed, possible drug and OTC drug and food interactions discussed, lab monitoring and follow-up discussed, cost of medications and cost implications discussed, adherence and missed doses discussed, monitoring medication discussed, lifestyle modification education Drug Medication Management Summary Topics discussed: medication safety precautions education provided, possible adverse effects and management discussed, possible drug and OTC drug and food interactions discussed, lab monitoring and follow-up discussed, cost of medications and cost implications discussed, adherence and missed doses discussed, monitoring medication discussed, lifestyle modification education Number of adverse drug events identified: 0 Time spent: 16-30 min Treatment Outcomes 08/22/2020 1240 Disease progression: Stable Patient Overall Status: Stable [...] use oldest product first Relevant lab data Patient verbalizes understanding and is able to read-back instructions on self-administration/injection, proper storage, drug stability, importance of adherence and management strategies, side effectavoidance and mitigation strategies, and interruptions in therapy: Yes Relevant monitoring results reviewed for bone marrow suppression, opportunistic infection, tumor lysis syndrome, metabolic disturbance and end organ dysfunction yes - . Physical and Cognitive Assessment: Functional limitations identified: no Cognitive limitations identified: no Concern regarding orientation/memory: no Concern with reasoning/judgement: no Is patient a fall risk: no Other needed information: no Social Assessment: Does the patient have a primary career development counselor? no Does the patient have an emergency contact on file: Yes Does patient need referral to social sciences professor: No Does patient need referral to advocacy group: No Home Health Assessment: Is the patient in a safe home environment? Yes Is the patient able to store their medication as directed? Yes Does the patient have a support network at home? Yes Reviewed potential home safety hazards with patient: Yes Economic Assessment: Patient is agreeable to medication copay: yes Copay Amount: $0 Day Supply: 30 Date Needed: 08/28/20 Copay assistance required: no Therapy Assessment: Current Medication Dosing/Route/Frequency: Zejula 100mg PO QD Appropriate Therapy: Yes Effective: yes - patient may need scans soon - notified clinic. Labs stable Patient-Reported Side Effects: diarrhea much improved on this dose Patient assessed for pertinent side effects such as arthralgia, neuropathy, vision changes, cough, rash, hand/foot syndrome, hot flashes, nausea, and diarrhea or constipation. Adjunct medication needed? no Is the patient experiencing pain? no Patient Goals: Hematology/Oncology related goals may include remission, palliative or hospice care, a bridge to future surgery, transplant, and radiation or infusion therapy. Goals ??? [facility] Medication Compliance and Understanding Maintain control of disease for as long as possible as assessed by tumor marker levels and scans inclinic every 3 to 6 months Is the patient on track to achieve goals of therapy? Yes Care Plan and Interventions: Care Plan Reviewed and Approved by both Pharmacist and Patient: Yes Did Care Plan Change? No Interventions (if applicable): No Patient experienced change in condition that affects treatment: no Additional care/services needed: no Educational information or adherence tools provided: Yes Additional equipment/supplies required: no Pharmacist follow-up needed: Yes Patient Satisfaction with Care/Services Provided: Yes Informed patient of specialty pharmacy services: Yes -Patient received [employer] packet: Yes Date Received: pt verbally confirmed today that she received the packet by mail -Patient is aware a licensed pharmacist is available 24 hours a day, 7 days a week to discuss medication-related questions or concerns: Yes -Patient verbalizes understanding of education on the common side effect profile of the medication:Yes -The patient is able to call 911 or seek urgent care if signs/symptoms of allergy or harmful adverse reactions occur: Yes Patient Satisfaction with Therapy: yes - pt tolerates therapy with few side effects Patient understands any changes to current drug regimen were made at the appointment and that [facility] is providing recommendations (summary located at top of note) for provider review and follow up. Lani Coats RPH 08/22/20 12:40 PM documented in this encounter Plan of Treatment Upcoming Encounters Date Type Department Care Team (Latest Contact Info) Description 12/25/2023 9:[address] [place] [address] Xavier Malhotra MD [facility] [place] [address] 12/29/2023 Hospital Encounter Electrophysiology Lab at [place] [phone] Xavier Malhotra MD [facility] [place] [address] Paroxysmal atrial fibrillation 12/29/2023 7:30 AM EDT - 12/29/2023 12:00 PM EDT Surgery [place] [phone] Xavier Malhotra MD [facility] [place] [address] ELECTROPHYSIOLOGY PROCEDURE 01/14/2024 10:40 AM EDT Office Visit Cardiology at [address] [phone] Carmen Castaneda PA [facility] [place] [address] Scheduled Procedures Name Priority Associated Diagnoses Date/Ti me TRANSESOPHAGEAL ECHO DURING CATH/EP PROCEDURE Paroxysmal atrial fibrillation 12/29/2023 7:30 AM EDT documented as of this encounter Goals Goal Patient Goal Type Associated Problems Recent Progress Patient-Stated? Author [facility] Medication Compliance and Understanding Patient Facing Action Plan Lani Love, [facility] Note: Maintain control of disease for as long as possible as assessed by tumor marker levels and scans in clinic every 3 to 6 months documented as of this encounter Visit Diagnoses Not on filedocumented in this encounter Care Teams Shipping Inspector Relationship Specialty Start Date End Date Evelyne Hunt APRN [address] [place] [address] PCP - General Internal Medicine 09/23/17 documented as of this encounter
--- OUTSIDE RECORDS SUMMARY | 2023-12-01 02:14 | XMS_ITS | Encounter Summary ---
[place] [address] Care Team Providers Care Batt Machine Operator Name Role Phone Marilee Evelyne Daugherty APRN Primary Care Provider [phone] Encounter Details Date Type Department Care Team (Late st Contact Info) Description 08/01/2020 [place] [phone] Kathryn Tim Social History Tobacco Use Types Packs/Day Years Used Date Smoking Tobacco: Former Cigarettes Q uit: 07/12/1977 Smokeless Tobacco: Never Alcohol Use Standard Drinks/Week Comments Yes 0 (1 standard drink = 0.6 oz pur e alcohol) 4 drinks per week Sex and Gender Information Value Date Recorded Sex Assigned at Not on file Gender Identity Not on file Sexual Orientation Not on file documented as of this encounter Miscellaneous Notes * Telephone Encounter - Kathryn Tim - 08/01/2020 12:22 PM EDT Pt would like to go closer to home for pre-op covid test on 08/05 * Telephone Encounter - Kathryn Tim - 08/01/2020 12:22 PM EDT Telephone call placed/received to schedule covid 19 testing with patient. Ordering provider: Dr. Andrey Esqueda Testing Facility: [facility] Date of Testin/17 Time of Testin:30am Symptoms: No Is this the first test for Covid 19 No, July, Neg, [facility] If no, please list date of previous test, result, and type of test (Molecular, Antigen, Antibody orunknown): Resides in congregate care setting No Employee or Household Member of Employee No Healthcare Worker No * Telephone Encounter - Nely Aceves - 08/01/2020 12:22 PM EDT Pt called this am and said her pre-op COVID test result from [place] is inconclusive. The patient ws upset. I mentioned to her that she might need to get another test today and tried to come upwith a testing site with her. She said she has a lot of things to do today , including a telehealthappt at 12noon. She said she didn't thinkI was listening to her her and roadblocked every place she tried to go for testing today. I let her know that getting the result timely is the consideration. She said she would talk later and ended the call/ Msg to Lazara-op. * Telephone Encounter - Nely Aceves - 08/01/2020 12:22 PM EDT INCONCLUSIVE SCANNED TO CHART;[id number] TO TEST PT DOS documented in this encounter Plan of Treatment Upcoming Encounters Date Type Department Care Team (Latest Contact Info) Description 12/25/2023 9:[address] [place] [phone] Xavier Malhotra MD [facility] [place] [address] 12/29/2023 Hospital Encounter [place] [phone] Xavier Malhotra MD [facility] [place] [address] Paroxysmal atrial fibrillation 12/29/2023 7:30 AM EDT - 12/29/2023 12:00 PM EDT Surgery [place] [phone] Xavier Malhotra MD [facility] [place] [address] ELECTROPHYSIOLOGY PROCEDURE 01/14/2024 10:40 AM EDT Office Visit Cardiology at [address] [phone] Carmen Castaneda PA [facility] [place] [address] Scheduled Procedures Name Priority Associated Diagnoses Date/Ti [...] on filedocumented in this encounter Care Teams Batt Machine Operator Relationship Specialty Start Date End Date Evelyne Hunt APRN [address] [facility] [place] [address] PCP - General Internal Medicine 09/23/17 documented as of this encounter
--- OUTSIDE RECORDS SUMMARY | 2023-12-01 02:14 | XMS_ITS | Encounter Summary ---
Author Organization [facility] Address [facility] [place] [address] Care Team Providers Care Taximeter Repairer Name Role Phone Kiki Huntyce Dat STEVEN Primary Care Provider [phone] Encounter Details Date Type Department Care Team (Latest Contact Info) Description 08/07/2020 12:20 PM EDT TH Visit (TeleHealth) [place] [address] Natalie Vallejo MD [facility] [place] [address] History of ovarian cancer; Chemotherapy-induced neuropathy Social [...] as of this encounter Progress Notes * Natalie Vallejo MD - 08/07/2020 12:20 PM EDT Gynecologic Oncology-Telehealth Encounter. ?? Reason/purpose for telehealth encounter: ovarian cancer, niraparib followup Patient's physical location at the time of this telehealth/telephone visit: Home, in [place]. ?? The patient voiced an understanding of the reason and intent of the televisit/phone call, verified her date of , and provided verbal consent to discuss clinical issues by phone. Additionally, the patient acknowledged that a telephone consultation is potentially a billable encounter, and that the patient or their medical insurance carrier could be billed for this service, and provided verbal consent for the encounter. ?? Summary of conversation, decision making, and plan: ovarian cancer on maintenance niraparib She is back on niraparib at 100 mg each night. She had had a prior dose delay and reduction due to low platelets but things have been doing well since that time. She is feeling very well and feels better than she has in years. Her only new issue is with her heart arrhythmia and she will be having a cardiac ablation tomorrow.This is advised some significant intermittent fatigue. She has had both of her [employer] vaccines. Her neuropathy continues. She has been doing acupuncture with improvement in other symptoms but notmuch improvement in her neuropathy. Results for NIALISAErmias GABI Eber WARREN ( ) as of 08/07/2020 13:10 Ref. Range 07/31/2020 12:30 WBC Unknown 5.80 RBC Unknown 3.36 (L) Hemoglobin Unknown 12.8 Hematocrit Unknown 35.8 (L) MCV Unknown 106.5 (H) MCH Unknown 38.1 (H) MCHC Unknown 35.8 RDWCV Unknown 12.0 Platelets Unknown 207 MPV Unknown 8.9 Neutr Abs (ANC) Unknown 3.51 Neutrophils % Unknown 60.6 Immature Gran % Unknown 0.3 Lymphocytes % Unknown 25.0 Monocytes % Unknown 9.1 Basophils % Unknown 1.2 Monocyte Abs Unknown 0.53 Eosinophil % Unknown 3.8 Lymphocyte Abs Unknown 1.45 Eosinophil Abs Unknown 0.22 Basophil Abs Unknown 0.07 Sodium Unknown 138 Potassium Unknown 3.8 Chloride Unknown 101 CO2 Unknown 27 Anion Gap Unknown 10 BUN Unknown 13 Creatinine Unknown 0.8 Estimated GFR Unknown >60.00 Calcium Unknown 10.0 Glucose Lvl Unknown 128 Total Protein Unknown 7.6 Albumin Unknown 4.3 Total Bilirubin Unknown 0.8 Alk Phos Unknown 95 AST Unknown 18 ALT Unknown 28 CA 125 Unknown pending Ca125 = 3 per the patient ?? Items to Complete - (To-Do List): 1. Tolerating PARP well. Continue at 100 mg at night. 2. adjust [facility] labs to every 6 weeks. 4. followup via telehealth in 6 weeks after labs are resulted documented in this encounter Plan of Treatment Upcoming Encounters Date Type Department Care Team (Latest Contact Info) Description 12/25/2023 9:[address] Scan at [place] [phone] Xavier Malhotra MD [facility] [place] [address] 12/29/2023 Hospital Encounter Electrophysiology Lab at [address] Xavier Malhotra MD [facility] [place] [address] Paroxysmal atrial fibrillation 12/29/2023 7:30 AM EDT - 12/29/2023 12:00 PM EDT Surgery Electrophysiology Lab at [place] [phone] Xavier Malhotra MD [facility] [place] [address] ELECTROPHYSIOLOGY PROCEDURE 01/14/2024 10:40 AM EDT Office Visit Cardiology at [place] [phone] Carmen Castaneda PA [facility] [place] [address] Scheduled Procedures Name Priority Associated Diagnoses Date/Ti me TRANSESOPHAGEAL ECHO DURING CATH/EP PROCEDURE Paroxysmal atrial fibrillation 12/29/2023 7:30 AM EDT documented as of this encounter Goals Goal Patient Goal Type Associated Problems Recent Progress Patient-Stated? Author [facility] Medication Compliance and Understanding Patient [...] fibrillation documented in this encounter Care Teams Taximeter Repairer Relationship Specialty Start Date End Date Evelyne Hunt APRN [address] [place] [address] PCP - General Internal Medicine 09/23/17 documented as of this encounter
--- OUTSIDE RECORDS SUMMARY | 2023-12-01 02:14 | XMS_ITS | Encounter Summary ---
Author Organization [facility] Address [facility] [address] Care Team Providers Care Rv Repair Technician Name Role Phone MarileeEvelyne APRN Primary Care Provider [phone] Reason for Referral * Diagnostic Test (Routine) - Closed Specialty Diagnoses / Procedures Referred By Contac t Referred To Contact Cardiology Diagnoses Palpitations Procedures Ziopatch 48 Hrs-15 Days Franklyn Younger PA [facility] [place] [address] [facility] [place] [address] Referral ID Status Reason Start Date Expiration Date V isits Requested Visits Authorized [id number] Closed Specialty Service Requested 08/08/2020 11/07/2020 1 1 Encounter Details Date Type Department Care Team (Late st Contact Info) Description 08/08/2020 [place] [address] Franklyn Younger PA [facility] [place] [address] Palpitations Social History Tobacco Use Types Packs/Day [...] 9:[address] Scan at [place] [phone] Xavier Malhotra MD [facility] [place] [address] 12/29/2023 Hospital Encounter Electrophysiology Lab at [address] Xavier Malhotra MD [facility] [place] [address] Paroxysmal atrial fibrillation 12/29/2023 7:30 AM EDT - 12/29/2023 12:00 PM EDT Surgery Electrophysiology Lab at [address] Xavier Malhotra MD [facility] [place] [address] ELECTROPHYSIOLOGY PROCEDURE 01/14/2024 10:40 AM EDT Office Visit Cardiology at [address] Carmen Castaneda PA [facility] [place] [address] Scheduled Procedures Name Priority Associated Diagnoses Date/Ti me TRANSESOPHAGEAL ECHO DURING CATH/EP PROCEDURE Paroxysmal atrial fibrillation 12/29/2023 7:30 AM EDT documented as of this encounter Goals Goal Patient Goal Type Associated Problems Recent Progress Patient-Stated? Author [facility] Medication Compliance and Understanding Patient Facing Action Plan Lani Love, [facility] Note: Maintain control of disease for as long as possible as assessed by tumor marker levels and scans in clinic every 3 to 6 months documented as of this encounter Results * Ziopatch 48 Hrs-15 Days (08/08/2020 11:44 AM EDT) Anatomical Region Laterality Modality Other Narrative 09/04/2020 7:24 AM EDT [facility] ? Zio Patch? Ambulatory Cardiac Event Monitor Report Duration of recording ? 13 days and 12 hours Summary Data Predominant rhythm ? normal sinus rhythm Minimum sinus rate 54 bpm Maximum sinus rate 127 bpm Average heart rate 74 bpm Atrial fibrillation-there were no episodes of atrial fibrillation or atrial flutter. There were no pauses of 3 seconds or longer or high degree AV block. Ectopic beats Less than 1% atrial premature beats (APC? s) Less than 1% ventricular premature beats (VPC's). ?? Isolated ventricular ectopic beats were rare (less than 1%, 1222). ??There were 4 ventricular couplets and one ventricular triplet. ??Episodes of ventricular bigeminy (longest 9 seconds) and trigeminy (longest 18 seconds) were present. ??There was one 4 beat run of nonsustained ventricular tachycardia. There are 43 episodes of supraventricular tachycardia (4 beats or more). ?? The fastest being 10 beats at 182 bpm, and the longest lasting 14 seconds with an average rate of 98 bpm. Triggered and Patient Diary Events There were 13 triggered and 0 patient diary events: Triggered events corresponded to sinus rhythm with a range of 65 to 116 bpm and also episodes of ventricular bigeminy, trigeminy, and isolated ectopics. Conclusion(s): ?? 1) The predominant rhythm for the monitoring period is normal sinus rhythm with a range of 54 to ??127 bpm. 2) There are 43 episodes of SVT which did not correspond to triggered events. There were no episodes of atrial fibrillation or atrial flutter. 3) There were 13 triggered events which corresponded to isolated ventricular and supraventricular ectopics approximately 50% of the time. ?? The remaining episodes were triggered for normal sinus rhythm. 4) There were no pauses of 3 seconds or longer or high degree AV block. Xavier Malhotra MD [facility] ORD ERABLES documented in this encounter Visit Diagnoses Diagnosis Palpitations Paroxysmal atrial fibrillation Atrial fibrillation Paroxysmal atrial fibrillation Atrial fibrillation documented in this encounter Care Teams Rv Repair Technician Relationship Specialty Start Date End Date Evelyne Hunt APRN [address] [place] [address] PCP - General Internal Medicine 09/23/17 documented as of this encounter
--- OUTSIDE RECORDS SUMMARY | 2023-12-01 02:14 | XMS_ITS | Encounter Summary ---
Author Organization [facility] [place] [address] Care Team Providers Care Registered Art Therapist Name Role Phone Evelyne Hunt Dat STEVEN Primary Care Provider [phone] Encounter Details Date Type Department Care Team (Late st Contact Info) Description 06/28/2020 Orders Only Hematology and Oncology at [place] [phone] Mirtha Blanton Social History Tobacco Use Types Packs/Day Years [...] 9:[address] [place] [address] Xavier Malhotra MD [facility] [place] [address] 12/29/2023 Hospital Encounter [place] [address] Xavier Malhotra MD [facility] [address] [place], [place] [id number] Paroxysmal atrial fibrillation 12/29/2023 7:30 AM EDT - 12/29/2023 12:00 PM EDT Surgery [place] [phone] Xavier Malhotra MD [facility] ELECTROPHYSI[place] [address] ELECTROPHYSIOLOGY PROCEDURE 01/14/2024 10:40 AM EDT Office Visit Cardiology at [address] [phone] Carmen Castaneda PA [facility] [place] [address] Scheduled Procedures Name Priority Associated Diagnoses Date/Ti me TRANSESOPHAGEAL ECHO DURING CATH/EP PROCEDURE Paroxysmal atrial fibrillation 12/29/2023 7:30 AM EDT documented as of this encounter Goals Goal Patient Goal Type Associated Problems Recent Progress Patient-Stated? Author [facility] Medication Compliance and Understanding Patient Facing Action Plan No Lani Vargas, [facility] Note: Maintain control of disease for as long as possible as assessed by tumor marker levels and scans in clinic every 3 to 6 months documented as of this encounter Visit Diagnoses Not on filedocumented in this encounter Care Teams Registered Art Therapist Relationship Specialty Start Date End Date Evelyne Hunt APRN [address] [place] [address] PCP - General Internal Medicine 09/23/17 documented as of this encounter
--- OUTSIDE RECORDS SUMMARY | 2023-12-01 02:14 | XMS_ITS | Encounter Summary ---
Author Organization [facility] [place] [address] Care Team Providers Care Tetryl Nitrator Operator Name Role Phone Evelyne Hunt TENISHA Primary Care Provider Encounter Details Date Type Department Care Team (Late st Contact Info) Description 04/03/2020 Notes Only Gy[place] [address] Jaqueline Doran RN Social History Tobacco Use Types Packs/Day [...] as of this encounter Progress Notes * Jaqueline Doran RN - 04/03/2020 11:13 AM EST Faxed monthly lab slips to [facility] at [phone] and made pt aware. documented in this encounter Plan of Treatment Upcoming Encounters Date Type Department Care Team (Latest Contact Info) Description 12/25/2023 9:[address] [place] [address] Xavier Malhotra MD [facility] [address] 12/29/2023 Hospital Encounter Electrophysiology Lab at [place] [phone] Xavier Malhotra MD [facility] [place] [address] Paroxysmal atrial fibrillation 12/29/2023 7:30 AM EDT - 12/29/2023 12:00 PM EDT Surgery [place]rophys[place] [phone] Xavier Malhotra MD [facility] [place] [address] ELECTROPHYSIOLOGY PROCEDURE 01/14/2024 10:40 AM EDT Office Visit Cardiology at [place] [phone] Carmen Castaneda PA [facility] [place] [address] Scheduled Procedures Name Priority Associated Diagnoses Date/Ti [...] on filedocumented in this encounter Care Teams Tetryl Nitrator Operator Relationship Specialty Start Date End Date Evelyne Hunt APRN [address] [place] [address] PCP - General Internal Medicine 09/23/17 documented as of this encounter
--- OUTSIDE RECORDS SUMMARY | 2023-12-01 02:14 | XMS_ITS | Encounter Summary ---
Author Organization [facility] [place] [address] Care Team Providers Care Assistant News Director Name Role Phone Evelyne Hunt Dat STEVEN Primary Care Provider [phone] Encounter Details Date Type Department Care Team (Late st Contact Info) Description 04/19/2020 External Results Hematology and Oncology at [place] [phone] Mary Mclain, RN Social History Tobacco Use Types Packs/Day [...] 9:[address] [place] [address] [facility] [place] [address] 12/29/2023 Hospital Encounter Electrophysiology Lab at [place] [phone] [facility] [address] [place] [phone] Paroxysmal atrial fibrillation 12/29/2023 7:30 AM EDT - 12/29/2023 12:00 PM EDT Surgery [place] [phone] [facility] [place] [address] ELECTROPHYSIOLOGY PROCEDURE 01/14/2024 10:40 AM EDT Office Visit Cardiology at [address] [phone] [facility] [place] [address] Scheduled Procedures Name Priority Associated Diagnoses Date/Ti me TRANSESOPHAGEAL ECHO DURING CATH/EP PROCEDURE Paroxysmal atrial fibrillation 12/29/2023 7:30 AM EDT documented as of this encounter Goals Goal Patient Goal Type Associated Problems Recent Progress Patient-Stated? Author [facility] Medication Compliance and Understanding Patient Facing Action Plan Lani Love, [facility] Note: Maintain control of disease for as long as possible as assessed by tumor marker levels and scans in clinic every 3 to 6 months documented as of this encounter Procedures Procedure Name Priority Date/Time Associated Diagnosis Comments EXTERNAL LAB CBC CMP THYROID RESULTS PANEL Routine 04/18/2020 EXTERNAL LAB CBC CMP THYROID RESULTS PANEL Routine 04/18/2020 documented in this encounter Results * CBC / CMP / Thyroid External Results (04/18/2020) Historical Provider EXTERNAL LAB TONJA SUAREZ * (ABNORMAL) CBC / CMP / Thyroid External Results (04/18/2020) White Blood Cell 6.75(Exte rnal Lab) Hemoglobin 12.5(Exte rnal Lab) Hematocrit 36.9(Exte rnal Lab) Platelet 178(Exter nal Lab) Sodium 137(Exter nal Lab) Potassium 4.0(Exter nal Lab) Chloride 103(Exter nal Lab) Carbon Dioxide 27([facility]el Supervisor al Lab) Blood Urea Nitrogen 21(ExtH) Creatinine 0.83(Exte rnal Lab) Calcium 9.5(Exter nal Lab) Protein, Total 7.5(Exter nal Lab) Albumin 4.1(Exter nal Lab) Bilirubin, Total 0.9(Exter nal Lab) Alkaline Phosphatase 81([facility]) Aspartate Aminotransferase 17([facility]) Alanine Aminotransferase 27([facility]) Segmented Neutrophils Manual 67.9(Exte rnal Lab) Segs Absolute Manual 4,580(Ext ernal Lab) 04/18/2020 Natalie Vallejo MD EXTERNAL LAB ORDERAB LES documented in this encounter Visit Diagnoses Not on filedocumented in this encounter Care Teams Assistant News Director Relationship Specialty Start Date End Date Evelyne Hunt APRN [address] [place] [address] PCP - General Internal Medicine 09/23/17 documented as of this encounter
--- OUTSIDE RECORDS SUMMARY | 2023-12-01 02:14 | XMS_ITS | Encounter Summary ---
Author Organization [facility] [place] [address] Care Team Providers Care Broacher Name Role Phone Evelyne Hunt Dat STEVEN Primary Care Provider [phone] Reason for Visit * Reason Comments Specialty Pharmacy Review Zejula Encounter Details Date Type Department Care Team (Late st Contact Info) Description 05/11/2020 Specialty [place] [phone] Erick Guzman, [facility] Social History Tobacco Use Types Packs/Day Years [...] encounter Progress Notes * Kennedi Soler - 05/11/2020 11:59 PM EST The [facility] has completed a benefits investigation for Gabi Luna to review their eligibility to fill at [facility]. Per patient's medication list they are prescribed ZEJULA and the medication is able to be filled at the [facility]. Fills with pharmacy. documented in this encounter Plan of Treatment Upcoming Encounters Date Type Department Care Team (Latest Contact Info) Description 12/25/2023 9:[address] [place] [place] [address] Xavier Malhotra MD [facility] [place] [address] 12/29/2023 Hospital Encounter Electrophysiology Lab at [address] Xavier Malhotra MD [facility] [place] [address] Paroxysmal atrial fibrillation 12/29/2023 7:30 AM EDT - 12/29/2023 12:00 PM EDT Surgery Electrophysiology Lab at [place] [phone] Xavier Malhotra MD [facility] [place] [address] ELECTROPHYSIOLOGY PROCEDURE 01/14/2024 10:40 AM EDT Office Visit Cardiology at [place] [address] Carmen Castaneda PA [facility] [place] [address] Scheduled Procedures Name Priority Associated Diagnoses Date/Ti me TRANSESOPHAGEAL ECHO DURING CATH/EP PROCEDURE Paroxysmal atrial fibrillation 12/29/2023 7:30 AM EDT documented as of this encounter Goals Goal Patient Goal Type Associated Problems Recent Progress Patient-Stated? Author [facility] Medication Compliance and Understanding Patient Facing Action Plan Lani Love, [facility] Note: Maintain control of disease for as long as possible as assessed by tumor marker levels and scans in clinic every 3 to 6 months documented as of this encounter Visit Diagnoses Not on filedocumented in this encounter Care Teams Broacher Relationship Specialty Start Date End Date Evelyne Hunt APRN [address] [place] [address] PCP - General Internal Medicine 09/23/17 documented as of this encounter
--- OUTSIDE RECORDS SUMMARY | 2023-12-01 02:14 | XMS_ITS | Encounter Summary ---
Author Organization [facility] Address [facility] [place] [address] Care Team Providers Care Code Machine Operator Name Role Phone Kiki Huntyce Dat STEVEN Primary Care Provider [phone] Reason for Visit * Auth/Cert Specialty Diagnoses / Procedures Referred By Contac t Referred To Contact Diagnoses SVT (supraventricular tachycardia) [I47.1] Procedures PRO EPHYS EVAL W ABLATION SUPRAVENT ARRHYTHMIA PRO INTRACARDIAC CATHETER ABLATION ARRHYTHMIA ADD ON PRO LEFT HEART CATH BY TRANSEPTAL PUNCTURE PRO INTRACARD ELECTROPHYS 3-DIMENS MAPPING PRG ELECTROPHYS EV, L A-V PACE/REC, W INDUCT PRG ELECTROPHYS EV, L A-V PACE/REC, W/O INDUCT PRG INTRACARD ECHO, THER/DX INTERVENT ELECTROPHYSIOLOGY PROCEDURE Referral ID Status Reason Start Date Expiration Date Visits Re quested Visits Authorized [id number] 1 1 Encounter Details Date Type Department Care Team (Late st Contact Info) Description 08/08/2020 7:30 AM EDT - 08/08/2020 12:30 PM EDT Surgery Electrophysiology [place] [address] Andrey Esqueda MD [facility] [place] [address] ELECTROPHYSIOLOGY PROCEDURE Social History Tobacco Use Types Packs/Day Years [...] Sign Reading Time Taken Comments Blood Pressure 125/90 08/08/2020 12:30 PM EDT Pulse 84 08/08/2020 12:30 PM EDT Temperature 36.8 ??C (98.2 ??F) 08/08/2020 1 1:19 AM EDT Respiratory Rate 8 08/08/2020 12:3 0 PM EDT Oxygen Saturation 97% 08/08/2020 12: 30 PM EDT Inhaled Oxygen Concentration - - Weight 59.3 kg (130 lb 12.8 oz) 08/08/2020 6:37 AM EDT Height 166.4 cm (5' 5.5) 08/08/2020 6:37 AM EDT Body Mass Index 21.44 08/08/2020 6:37 AM EDT documented in this encounter Discharge Instructions * Discharge Instructions* Amy Molina RN - 08/08/2020 3:51 PM EDT ACTIVITY If you are discharged the same day as your procedure, do not drive yourself home. Arrange to have another person drive. You may walk around when you get home, but keep your activity at a minimum until the morning. Do not bend over, strain, or lift heavy objects for 24 hours after the procedure. Do not participate in active sports for 48 hours. You may engage in sexual activity after 48 hours. These restrictions do not apply if the catheter was placed in a blood vessel in your arm. CATHETER INSERTION AREA CARE Take the band-aid off the catheter insertion area in the morning following the procedure. You may take a shower if you wish. Wash the area with soap and water. Look for signs of infection over the next several days. A little spot of blood at the catheter insertion area is not unusual. A bruise or a small lump under the skin is normal; they generally disappear in 3 to 4 days. For the first several days at home ifyou cough or sneeze, hold your groin to help prevent bleeding. Expect some mild tenderness over the area where the catheter was inserted. You will notice this after the local anesthetic (numbing) wears off. This should improve during the 24 to 48 hours after theprocedure. Take Tylenol if needed. Contact your Doctor if the discomfort worsens. PROBLEMS TO WATCH FOR If there is BRIGHT RED BLOOD flowing from the Catheter insertion area: * Stop what you are doing and lie down. *Hold pressure steadily on the area for 15 minutes. * Call for help. * If the bleeding does not stop in 15 minutes, call 911 for an ambulance. If there is swelling with black and blue color at the catheter insertion area, there may be bleeding inside. Contact the doctor if there is any increase in size. Look at the insertion site for the first few days at home. Signs of infection are: * Redness * Swelling *Yellow, white, green, or brown foul smelling drainage * Increased soreness If you think there is an infection, take your temperature. Then call your Doctor. If you feel faint or dizzy, lie down with your feet elevated. Have someone call the Doctor. If you are alert, drink fluids. HOW TO DEAL WITH CHEST PAIN If you had only the cardiac catheterization, treat any angina or chest discomfort as instructed. Stop what you are doing, and sit or lie down. If prescribed, take nitroglycerin under your tongue. If the angina isn't relieved, take another nitroglycerin in 5 minutes. After another 5 minutes, a third Nitroglycerin may be taken. If the angina isn't improved, you should call for an ambulance to bringyou to the nearest Emergency Room. If your angina is more frequent or more severe than before, callyour Doctor. We usually would not expect you to have angina after an angioplasty. If you do get angina, treat itas you did before, but also contact your Doctor. RETURN TO WORK The Doctor will usually have told you when to return to work. If you do not perform any heavy physical labor, most people can return to work in a few days. ACTIVITY If you are discharged the same day as your procedure, do not drive yourself home. Arrange to have another person drive. You may walk around when you get home, but keep your activity at a minimum until the morning. Do not bend over, strain, or lift heavy objects for 24 hours after the procedure. Do not participate in active sports for 48 hours. You may engage in sexual activity after 48 hours. These restrictions do not apply if the catheter was placed in a blood vessel in your arm. CATHETER INSERTION AREA CARE Take the band-aid off the catheter insertion area in the morning following the procedure. You may take a shower if you wish. Wash the area with soap and water. Look for signs of infection over the next several days. A little spot of blood at the catheter insertion area is not unusual. A bruise or a small lump under the skin is normal; they generally disappear in 3 to 4 days. For the first several days at home ifyou cough or sneeze, hold your groin to help prevent bleeding. Expect some mild tenderness over the area where the catheter was inserted. You will notice this after the local anesthetic (numbing) wears off. This should improve during the 24 to 48 hours after theprocedure. Take Tylenol if needed. Contact your Doctor if the discomfort worsens. PROBLEMS TO WATCH FOR If there is BRIGHT RED BLOOD flowing from the Catheter insertion area: * Stop what you are doing and lie down. *Hold pressure steadily on the area for 15 minutes. * Call for help. * If the bleeding does not stop in 15 minutes, call 911 for an ambulance. If there is swelling with black and blue color at the catheter insertion area, there may be bleeding inside. Contact the doctor if there is any increase in size. Look at the insertion site for the first few days at home. Signs of infection are: * Redness * Swelling *Yellow, white, green, or brown foul smelling drainage * Increased soreness If you think there is an infection, take your temperature. Then call your Doctor. If you feel faint or dizzy, lie down with your feet elevated. Have someone call the Doctor. If you are alert, drink fluids. HOW TO DEAL WITH CHEST PAIN If you had only the cardiac catheterization, treat any angina or chest discomfort as instructed. Stop what you are doing, and sit or lie down. If prescribed, take nitroglycerin under your tongue. If the angina isn't relieved, take another nitroglycerin in 5 minutes. After another 5 minutes, a third Nitroglycerin may be taken. If the angina isn't improved, you should call for an ambulance to bringyou to the nearest Emergency Room. If your angina is more frequent or more severe than before, callyour Doctor. We usually would not expect you to have angina after an angioplasty. If you do get angina, treat itas you did before, but also contact your Doctor. RETURN TO WORK The Doctor will usually have told you when to return to work. If you do not perform any heavy physical labor, most people can return to work in a few days. Radial Access for Heart Cath Activity If [...] by your doctor, do not take any amsr-uqw-kyzikru medicinesor herbal preparations without first discussing this with your doctor or pharmacist. There is the possibility of side effects and interactions when these are combined. Follow Up Care Who to call with questions or problems If there are any questions or problems that you think might be related to your cardiac cath or angioplasty, contact the rotary shear worker helper conflicts analyst by calling [facility] at . documented in this encounter Medications at Time of Discharge Medication Sig Dispensed Refills Start Date End Date buPROPion XL (Wellbutrin XL) 300 mg Tablet Extended Release 24 hr TK 1 T PO QAM 10/01/2019 dilTIAZem CD (Cardizem CD) 240 mg Capsule, Sust. Release 24 hrIndications:SVT (supraventricular tachycardia) Take 1 capsule by mouth daily. 90 capsule 1 05/19/2020 08/09/2020 niraparib (ZEJULA) capsuleIndications:O varian cancer, unspecified laterality Take 100 mg by mouth daily for 30 days. Call clinic before starting medication. 30 Doses of treatment to dispense 11 05/08/2020 09/22/2020 metoprolol succinate XL (Toprol-XL) 25 mg Tablet [...] as of this encounter Progress Notes * Samy Adkins RN - 08/08/2020 4:09 PM EDT Patient alert and oriented, vital signs stable. Reviewed discharge instructions; Ivana and Sandoval and they both verbalized understanding. Copy of instruction sheet with contact numbers for questions/concerns with Ivana. Pain assessment documented. Patient escorted out of department via wheelchair with COTTON [employer] MAKER. documented in this encounter H&P Notes * Andrey Esqueda MD - 08/08/2020 7:43 AM EDT Cardiac Electrophysiology Procedure [place] August 08, 2020 Reason for Procedure: Rapid palpitations - suspected supraventricular tachycardia (SVT) Backgound: Mrs. Luna is a 59 year old woman previously evaluated by Dr. Gibson, who has arranged for her to undergo a diagnostic electrophysiology study +/- catheter ablation of suspected SVT. She has had SVT symptoms for years, and notes episodes more recently ~2 times per week (most recently 3 days ago). These episodes are abrupt in onset, and at least initially are with rapid and steady palpitations; the episodes 'fade' away rather than abruptly terminating, per her description. No actual rhythm strip is available for review of a typical symptomatic episode. More recently she has notedepisodes with feeling beats dropping, or with irregular slower palpitations per my understanding of her description. She has not been diagnosed with atrial fibrillation to date. For additional detail, please refer to the clinic note dated July 26 ([facility]) Allergies & Sensitivities: Paroxetine, Penicillins, Sertraline, Venlafaxine, and Taxol [paclitaxel] Medications: Diltiaem and metoprolol (held) Social History: , accompanied by her . Is followed by clearing supervisor. Smoking: Quit previously Alcohol: No Interval Review of Systems: Negative for fever, chills, cough, COVID symptoms. Physical Examination (cursory): Vital Signs: Blood pressure: 144/87 sitting arm (cuff). Pulse: 85/minute, regular Ventilations: 16/minute, unlabored Weight: 59.3 kg dressed Body mass index: 21.44 kg/m2 General: In no acute distress. Articulate and attentive. Skin: Warm and dry, normal turgor. HEENT: Normocephalic, atraumatic; anicteric sclerae. Neck: No elevated jugulovenous distention upright. Chest: Symmetric chest wall expansion with inspiration. Lungs: Good air movement. Heart: Regular rate. Abdomen: Nondistended. Extremities: Pulses present, no edema. Neurological: Grossly intact. Tests: Transthoracic Echocardiogram (February 01, 2020): > The left ventricular chamber size is normal. Basal septal hypertrophy is observed (1.7 cm). Global left ventricular systolic function appears hyperdynamic. The quantitative left ventricular ejection fraction by biplane Arndt's method is 75%. > There is LV mid-cavitary flow acceleration (obstruction). There is also systolic anterior motion of the mitral valve is present with what appears to be mild left ventricular outflow tract obstruction (peak resting LVOT gradient of approximately 14 mmHg). > The right ventricle is normal in size. Right ventricular global systolic function is normal. The estimated pulmonary artery systolic pressure is 27 mmHg. > The aortic valve is not well visualized but appears bicommissural and heavily calcified. Thereappears to be moderate aortic valve stenosis. Doppler assessment is made less accurate by LV obstructive physiology. The calculated aortic valve area is 1.34 cm2. The mean trans-valvular gradient across the aortic valve is 33 mmHg. Moderate (2+/4+) aortic valve regurgitation is present. > There is mild dilatation of the aortic root (4 cm). Holter Study 48 Hour (January 31, 2020): Noted 15 short instances of supraventricular tachycardia. Electrocardiogram (April 17, 2018): Sinus rhythm, bormal intervals Assessment: Mrs. Luna has a long history of self-limited episodes of abrupt onset rapid palpitations, and more recently has noted episodes of dropped beats (not always in conjunction with rapid palpitations. We discussed that this procedure places an emphasis on a diagnostic component, whichwould allow for information being acquired that would be useful in the management and treatment of her dysrhythmia condition(s) - including the possibility of her having some atrial fibrillation (which I mentioned would not be explicitly targeted for ablation on this occasion, if otherwise it is manifest during this procedure). We discussed possibilities for underlying SVT mechanisms, and approaches to ablating the SVT (along with a discussion of associated risks and limitations). I emphasized that dropped beats likely yet would persist as an issue, even following successful ablation of SVT. All of her questions were answered. Plan: Electrophysiology study, mapping, and ablation (with anesthesiology support) documented in this encounter Miscellaneous Notes * Brief Op Note - Andrey Esqueda MD - 08/08/2020 11:25 AM EDT Cardiac Electrophysiology - Brief Procedure Note Noninducible for supraventricular tachycardia, with stimulation limits resulting in atrial reentry and atrial fibrillation. Of note was dual atrioventricular node physiology with a nonconducted concentric atrial echo beat elicited neart clark refractoriness (but no available clinical tracings of her clinical tachycardia for context). No ablation performed today. * Op Note - Andrey Esqueda MD - 08/08/2020 7:30 AM EDT Comprehensive Electrophysiology Evaluation Indication: Recurrent supraventricular tachycardia It Programmer Analyst: Andrey Esqueda MD Procedure: After discussion with the patient and confirmation of her informed consent, the patient was brought to the Electrophysiology Laboratory in the fasting state. A time-out was accomplished.Continuous electrocardiographic monitoring was instituted. Monitored anesthesia care was accomplished by the Anesthesiology Service. Both femoral regions and the right base of the neck were prepared and draped in the usual sterile manner. Local anesthesia was achieved with a 1:1 mixture of 2% lidocaine and 0.5% bupivacaine administered subcutaneously. Using ultrasound venography for guidance, the following hemostatic sheaths (all with sidearms and flushed) were inserted utilizing a modified Seldinger technique. Electrode catheters were positioned under fluoroscopic guidance as follows: Sheath Catheter Electrodes Insertion Site Target 8 Fr 6 Fr 10 Rt int jugular Coronary sinus (CS) 6.5 Fr 5 Fr 4 Rt femoral vein Rt ventricle 8 Fr Rt femoral vein Rt atrium 7 Fr 6 Fr 10 Rt femoral vein His bundle ... blood pressure (monitored via arm cuff) Signal data was stored digitally using [employer] in Laboratory 4, and the stimulator utilizedwas the [employer] EP-4 system (atypically high local capture thresholds noted when using either channel 1 or 2). Baseline Assessment: 1) Baseline rhythm was sinus rhythm with mean ventricular cycle length 770 ms: VA: 150 ms AH: 60 ms HV: 50 ms QRS: 90 ms QT: 390 ms 2) Atrial overdrive pacing was accomplished from a bipole of the decapolar catheter within the coronary sinus, and the atrioventricular (AV) Wenckebach block cycle length (CL) was observed at 360 ms.There was no pre-excitation or conduction aberrancy identified. The [id number]-[id number] was slightly longer than the QRS-QRS interval just prior to the observed AV Wenckebach block CL, and no echo beats were elicited. 3) Atrial extrastimulus testing was accomplished using an atrial drive train of CL 500 ms; the atrial effective refractory period (ERP) was noted at an S2 coupling interval of 290 ms (atrial [id number] mA @ 2 ms), and the AV node ERP then was less than or equal to that interval. The AV node fast pathway ERP was approximately at 320-330 ms, and a nonconducted concentric atrial echo beat was elicited at an S2 coupling interval of 310 ms (with none seen at 300 ms, at which more atrial conduction delay in the CS was manifest). 4) Rapid atrial pacing down to 200 ms elicited 4 atrial reentrant beats, and pacing down to 190 ms elicited 8 rapid irregular atrial reentrant beats. 5) Pacing was accomplished from the right ventricle. Concentric ventriculo- atrial (VA) conduction was observed, with loss of 1:1 conduction at a paced cycle length of 340 ms. 6) Ventricular extrastimulus testing was accomplished using a drive train of CL 500 ms; a ventricular reentrant beat was elicited at an S2 coupling interval of 270 ms, with concentric delayed retrograde conduction to the atrium otherwise maintained. 7) Dobutamine was infused at 10 mcg/kg/minute. As the dobutamine effect was emerging, efforts to elicited supraventricular tachycardia (SVT) via rapid atrial pacing near the AV Wenkebach block CL failed. Atrial extrastimulus testing was accomplished using an atrial drive train of CL 400 ms; dual AVnode physiology was manifest, with the fast pathway ERP occurring at a coupling interval of 290 ms,along with the emergence of a nonconducted concentric atrial echo beat (also manifest at a couplinginterval of 280 ms and 270 ms). The AV node ERP occurred at an S2 coupling interval of 260 ms. Double atrial extrastimuli also failed to elicit anything more than single nonconducted echo beats. 8) During the dobutamine effect (with the dobuttamine infusion rate increased to 20 mcg/kg/minute),there was an increase of unifocal ventricular ectopy (not catheter induced, and not from the outflow tract), including ventricular bigeminy, which interfered some with atrial extrastimulus testing. Despite that, more atrial extrastimulus testing was accomplished also using an atrial drive train of CL 400 ms; the AV node fast pathway ERP was not reached prior to eliciting local atrial reentry at acoupling interval of 160 ms (very near the atrial ERP). 9) Rapid atrial pacing again was accomplished during the subsequent waning dobutamine effect. Pacing to a CL of 190 ms elicited 1 atrial reentrant beat, and pacing to a CL of 170 ms elicited fibrillatory atrial reentry (self- terminated after ~1 minute). 0) After the dobutamine effect largely had dissipated, a single well timed atrial CS extrastimulus (coupling interval 240 ms) elicited atrial fibrillation yet again - this self terminated just over 2minutes later. Total Fluoroscopy Time: 4.8 minutes, low intensity setting, single plane Dose Area Product: 267 mGy.cm2 Cumulated Dose: 31 mGy. At the conclusion of provocative testing, catheters and sheaths were removed, and hemostasis was achieved via manual compression. Total estimated blood loss: <10 cc. The patient tolerated the procedure well with no apparent acute complications, and was transferred to the recovery area in stable condition with a Durham catheter yet in place. Conclusions: 1) Normal baseline electrophysiology study. There was no evidence of an accessory pathway or aberrant conduction. 2) Dual atrioventricular node physiology (near clark refractoriness) with a concentric noncunductedatrial echo beat elicited. 3) No supraventricular tachycardia elicited. 4) Atrial reentry and atrial fibrillation elicited at limits of some of the more aggressive programmed electrical stimulation. The fibrillation was not sustained. documented in this encounter Plan of Treatment Upcoming Encounters Date Type Department Care Team (Latest Contact Info) Description 12/25/2023 9:[address] [place] [address] Xavier Malhotra MD [facility] [place] [address] 12/29/2023 Hospital Encounter Electrophysiology [place] [id number] Xavier Malhotra MD [facility] [place] [address] Paroxysmal atrial fibrillation 12/29/2023 7:30 AM EDT - 12/29/2023 12:00 PM EDT Surgery Electrophysiology [place] [phone] Xavier Malhotra MD [facility] [place] [address] ELECTROPHYSIOLOGY PROCEDURE 01/14/2024 10:40 AM EDT Office Visit Cardiology at [address] [phone] Carmen Castaneda PA [facility] [place] [address] Scheduled Procedures Name Priority Associated Diagnoses Date/Ti me TRANSESOPHAGEAL ECHO DURING CATH/EP PROCEDURE Paroxysmal atrial fibrillation 12/29/2023 7:30 AM EDT documented as of this encounter Goals Goal Patient Goal Type Associated Problems Recent Progress Patient-Stated? Author [facility] Medication Compliance and Understanding Patient Facing Action Plan Lani Love, [facility] Note: Maintain control of disease for as long as possible as assessed by tumor marker levels and scans in clinic every 3 to 6 months documented as of this encounter Procedures Procedure Name Priority Date/Time Associated Diagnosis Comments ZIOPATCH 48 HRS-15 DAYS Routine 08/09/19 11:44 AM EDT Palpitations ELECTROPHYSIOLOGY PROCEDURE Routine 08/08/2020 10:52 AM EDT SVT (supraventricular tachycardia) RAPID COVID-19 PCR (MH/APD/NLH) Routine 08/08/2020 7:48 AM EDT BMP W/FASTING GLUCOSE STAT 08/08/2020 7:15 AM EDT SCAN, PERIPHERAL BLOOD STAT 7:15 AM EDT HEMOGRAM STAT 08/08/2020 7:15 AM EDT DIFFERENTIAL, AUTOMATED STAT 08/09/19 7:15 AM EDT HC PROTHROMBIN TIME STAT 08/08/2020 7 :15 AM EDT HC CBC,PLT & AUTO DIFF STAT 7:15 AM EDT documented in this encounter Results * Ziopatch 48 Hrs-15 Days (08/08/2020 11:44 AM EDT) Anatomical Region Laterality Modality Other Narrative 09/04/2020 7:24 AM EDT [facility] ? Zio Patch? Ambulatory Cardiac Event [...] Xavier Malhotra MD CARDIAC SERVICES ORD ERABLES * ELECTROPHYSIOLOGY PROCEDURE (08/08/2020 10:52 AM EDT) Anatomical Region Laterality Modality Other Narrative 08/08/2020 4:57 PM EDT Cardiac Electrophysiology Please refer to the operative note filed under the inpatient tab following the completion of this procedure. Andrey Esqueda MD EP PROCEDURE ORDERAB LES * COVID-19 PCR (08/08/2020 7:48 AM EDT) SARS-CoV-2 RNA (Rapid) Not Detected Not Detected [facility] Comment: This result should be interpreted in combination with the clinical observations, patient history and epidemiological information. For testing of asymptomatic individuals, assay performance characteristics and clinical utility have not been evaluated. Testing for SARS-CoV-2 (Severe acute respiratory syndrome coronavirus 2, formerly known as 2019 novel coronavirus or 2019-nCoV) to aid in the diagnosis of COVID-19 is performed using the Simplexa COVID-19 Direct Assay by [employer] as authorized by the FDA issued Emergency Use Authorization (EUA). This assay is intended for In-vitro Diagnostic (IVD) use with nasopharyngeal swabs collected from individuals meeting the CDC criteria for testing. The assay is performed based on the instructions for use and additional guidance provided by the FDA. Testing is performed in the Microbiology Laboratory within the Department of Pathology and Laboratory Medicine at [facility], certified under the Clinical Laboratory Improvement Amendments of 1988 (CLIA), 42 U.S.C. section 263a, to perform high complexity tests. Assay performance has been verified according to clinical laboratory regulatory requirements. Test results are provided above. A result of Not Detected indicates that the viral RNA target is not present but does not preclude SARS-CoV-2 infection. False negative results may occur if a specimen is improperly collected, transported or handled; if amplification inhibitors are present; or if inadequate numbers of viral particles are present in the specimen. A result of Detected suggests a current or recent infection and the patient is presumed to be infected. Positive and negative predictive values for this test are highly dependent on disease prevalence. A result of Invalid indicates the inability to conclusively determine the presence or absence of SARS-CoV-2 RNA in the sample which can be due to a variety of factors. Recollection is recommended in the case of an invalid result. CDC COVID-19 criteria for testing on human specimens and clinical management guidance information are available at the CDC Coronavirus Disease 2019 (COVID-19) webpage under Information for Healthcare Professionals (https://www.cdc.gov/coronavirus/2019-ncov/hcp/index.html). Additional information about this and other EUA tests can be found in provider and patient fact sheets at the following FDA website: https://www.fda.gov/medical-devices/bcvozhpvwfa-clfkqpj-5387-mwkyg-32-mxktcmxpv- use-a dspnruyxxdukn-ebiiwmq-afsofps/klgmp-kcvimaxvmik-jjcp SARS-CoV-2 Source LITHOGRAPHY CONTACT WORKER Swab [facility] Nasopharyngeal swab (specimen) 08/08/2020 7:48 AM EDT 08/08/2020 8:26 AM EDT Comment:Symptoms->Surveillan ce Narrative Resulting Agency Comment Spec In Lab Alvarez Barnard MD MICROBIOLOGY - GENER AL ORDERABLES [facility] [place] [address] * Scan, Peripheral Blood (08/08/2020 7:15 AM EDT) Plat estimate Normal [facility] RBC Morphology Abnormal [facility] Macrocyte 1-5 /HPF [facility] Blood specimen (specimen) 08/08/2020 7:15 AM EDT 08/08/2020 7:27 AM EDT Narrative Resulting Agency Comment Spec In Lab Dwain Gibson MD HEMATOLOGY ORDERABLE S [facility] [place] [address] * Differential, Automated (08/08/2020 7:15 AM EDT) Pathologist [facility] Neutrophil % 57.4 % [facility] Neutrophil Absolute 2.64 1.70 - 6.10 x10(3)/[facility] Lymph % 27.0 % [facility] Lymphocytes Abs 1.2 0.9 - 3.2 x10(3)/[facility] Monocyte % 10.2 % [facility] Monocyte Abs 0.5 0.3 - 0.9 x10(3)/[facility] Eos % 4.1 % [facility] Eosinophils Abs 0.2 0.0 - 0.4 x10(3)/[facility] Basophil % 1.1 % [facility] Baso Absolute 0.0 0.0 - 0.1 x10(3)/[facility] Immature Gran % 0.20 % [facility] Comment: Immature granulocytes(IG's)percentage and absolute count will include metamyelocytes, myelocytes, and promyelocytes. Blood smears from CBCs yielding IG's will be scanned manually for concordance. If this scan disagrees with the automated IG or if promyelocytes are noted, a manual differential will be performed. Immature Gran Absolute 0.01 0.00 - 0.04 x10(3)/[facility] Blood specimen (specimen) 08/08/2020 7:15 AM EDT 08/08/2020 7:27 AM EDT Narrative Resulting Agency Comment Spec In Lab Dwain Gibson MD HEMATOLOGY ORDERABLE S [facility] [place] [address] * (ABNORMAL) Hemogram (08/08/2020 7:15 AM EDT) Pathologist [facility] White Blood Cell 4.6 4.0 - 9.5 x10(3)/ L [facility] Red Blood Cell 3.47(L) 4.00 - 5.21 x10(6)/mc L [facility] Hemoglobin 13.0 11.7 - 15.5 gm/dL [facility] Hematocrit 37.0 35.7 - 45.8 % [facility] Mean Cell Volume 106.6(H) 82.6 - 94.4 fL [facility] Mean Cell Hemoglobin 37.5(H) 27.1 - 32.0 pg [facility] Mean Cell Hemoglobin Concentration 35.1(H) 31.7 - 35.0 gm/dL [facility] Platelet 164 145 - 357 x10(3)/mc L [facility] RDW Standard Deviation 48.2(H) 37.0 - 46.0 fL [facility] RDW coefficient of variation 12.3 11.5 - 14.1 % [facility] Mean Platelet Volume 9.0 7.6 - 12.9 fL [facility] NRBC% auto 0.0 % [facility] NRBC Absolute 0.000 0.000 - 0.000 x10(3)/mc L [facility] Blood specimen (specimen) 08/08/2020 7:15 AM EDT 08/08/2020 7:27 AM EDT Narrative Resulting Agency Comment Spec In Lab Dwain Gibson MD HEMATOLOGY ORDERABLE S [facility] [place] [address] * Prothrombin Time (08/08/2020 7:15 AM EDT) Prothrombin Time 11.5 9.4 - 12.5 sec [facility] International Normalization Ratio 1.0 [facility] Comment: An INR <2.0 indicates [...] be appropriate depending on clinical circumstances. Blood specimen (specimen) 08/08/2020 7:15 AM EDT 08/08/2020 7:27 AM EDT Narrative Resulting Agency Comment Spec In Lab Dwain Gibson MD HEMATOLOGY ORDERABLE S [facility] [place] [address] * BMP w/fasting Glucose (08/08/2020 7:15 AM EDT) Glucose Fasting 91 65 - 99 mg/dL [facility] Comment: ?Fasting* Glucose Interpretive Criteria [...] of Diabetes Mellitus, Position Statement from the [place] [employer]. ??Diabetes Care, Volume 33, Supplement 1, Apr 2009 Blood Urea Nitrogen 14 8 - 18 mg/dL [facility] Creatinine 0.81 0.70 - 1.20 mg/dL [facility] Sodium 141 135 - 145 mmol/L [facility] Potassium 4.5 3.5 - 5.0 mmol/L [facility] Comment: Please note: ??Patients with WBC >100,000 may have falsely elevated Potassium levels. ??For accurate Potassium quantification in these patients send serum separator tube (gold top) for subsequent determinations. ??Contact the Clinical Chemistry Laboratory if there are any questions. Chloride 105 98 - 107 mmol/L [facility] Carbon Dioxide 25 22 - 31 mmol/L [facility] Anion Gap 11 5 - 15 mmol/L [facility] Calcium 9.9 8.5 - 10.5 mg/dL [facility] Est Glomerular Filtration Rate 79 >=60 mL/min/1. 73 m?? [facility] Comment: This patient? s estimated glomerular filtration rate (eGFR) is between 79 mL/min/1.73 m2 (patients with less muscle mass) and 92 mL/min/1.73 m2 (patients with more muscle mass) as determined by the CKD-EPI equation. Assessment of eGFR is not appropriate when creatinine concentrations are rapidly changing. For clinical decisions where creatinine clearance will affect therapy, a 24-hour urine creatinine clearance may be advised. Assignment of CKD stage 1 - 5 for patients with an eGFR near the transition point between stages may be based on clinical assessment of muscle mass and symptoms in addition to eGFR. Blood specimen (specimen) 08/08/2020 7:15 AM EDT 08/08/2020 7:27 AM EDT Narrative Resulting Agency Comment Spec In Lab Dwain Gibson MD CHEMISTRY ORDERABLES [facility] [place] [address] documented in this encounter Visit Diagnoses Diagnosis SVT (supraventricular tachycardia)- Primary Other specified cardiac dysrhythmias SVT (supraventricular tachycardia) Other specified cardiac dysrhythmias Palpitations SVT (supraventricular tachycardia) Other specified cardiac dysrhythmias Paroxysmal atrial fibrillation Atrial fibrillation Paroxysmal atrial fibrillation Atrial fibrillation documented in this encounter Admitting Diagnoses Diagnosis SVT (supraventricular tachycardia) Other specified cardiac dysrhythmias documented in this encounter Administered Medications Inactive Administered Medications - up to 3 most recent administrations Medication Order MAR Action Action Date Dose Rate Site BUpivacaine (pf) (Marcaine) (5 mg/mL) 0.5% injection 150 mg 150 mg (30 mL), Subcutaneous, ONCE, 1 dose, On Fri08/08/20 at 0915, EP (Intra-Procedure), Routine Given 08/08/2020 8:57 AM EDT 150 mg lidocaine (Xylocaine) (20 mg/mL) 2% injection 400 mg 400 mg (20 mL), Subcutaneous, ONCE, 1 dose, On Fri08/08/20 at 0915, EP (Intra-Procedure), Routine Given 08/08/2020 8:57 AM EDT 400 mg documented in this encounter Active and Recently Administered Medications Times are shown in EDT. Scheduled Medication Order 08/06/2020 08/07/2020 08/08/2020 BUpivacaine (pf) (Marcaine) (5 mg/mL) 0.5% injection 150 mg (COMPLETED) 150 mg (30 mL), Subcutaneous, ONCE, 1 dose, On Fri08/08/20 at 0915, EP (Intra-Procedure), Routine 0857 (Given - Provid er: Jose oLpez RN) lidocaine (Xylocaine) (20 mg/mL) 2% injection 400 mg (COMPLETED) 400 mg (20 mL), Subcutaneous, ONCE, 1 dose, On Fri08/08/20 at 0915, EP (Intra-Procedure), Routine 0857 (Given - Provid er: Jose Lopez RN) documented in this encounter Care Teams Code Machine Operator Relationship Specialty Start Date End Date Evelyne Hunt APRN [address] [place] [address] PCP - General Internal Medicine 09/23/17 documented as of this encounter
--- OUTSIDE RECORDS SUMMARY | 2023-12-01 02:14 | XMS_ITS | Encounter Summary ---
Author Organization [facility] [place] [address] Care Team Providers Care Miner Assistant Name Role Phone Marilee, Evelyne Daugherty APRN Primary Care Provider [phone] Encounter Details Date Type Department Care Team (Late st Contact Info) Description 04/20/2020 Telephone Cardiology at [address] [phone] Praveena Petty RN Social History Tobacco Use Types Packs/Day [...] Telephone Encounter - Praveena Petty RN - 04/20/2020 10:39 AM EST Patient called and reports that since last weekend she has been having more episodes of her SVT. Itstarted when she took a walk with her . The SVT runs come and go and they have been happening all week long which is different for her. She also had to take some breakthrough Diltiazem 30mg a couple oo times to help her feel better. Patient says she got a call today that her recent lab work all looked good. 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 Patient states she had previously been advised to decrease her Metoprolol due to fatigue but now she wonders if she can go up on her daily Diltiazem dose ( at 180mg now) or increase the breakthrough dosing) to help reduce the sx. She is notably frustrated at these episodes and that they interfere with her life and plans.She has tried the at home techniques for breaking the SVT but they have not been overly successful. Patient agrees to call on-call machine sole leveler this evening if she has not had a response from team nurse on message beforehand. When to utilize ED also reviewed with patient. Praveena Vega RNearth science laboratory technician [facility] General Team-[place] documented in this encounter Plan of Treatment Upcoming Encounters Date Type Department Care Team (Latest Contact Info) Description 12/25/2023 9:[address] [place] [address] Xavier Malhotra MD [facility] [place] [address] 12/29/2023 Hospital Encounter [place] [address] Xavier Malhotra MD [facility] [place] [address] Paroxysmal atrial fibrillation 12/29/2023 7:30 AM EDT - 12/29/2023 12:00 PM EDT Surgery [place] [phone] Xavier Malhotra MD [facility] [place] [address] ELECTROPHYSIOLOGY PROCEDURE 01/14/2024 10:40 AM EDT Office Visit Cardiology at [address] [phone] Carmen Castaneda PA [facility] [place] [address] Scheduled Procedures Name Priority Associated Diagnoses Date/Ti me TRANSESOPHAGEAL ECHO DURING CATH/EP PROCEDURE Paroxysmal atrial fibrillation 12/29/2023 7:30 AM EDT documented as of this encounter Goals Goal Patient Goal Type Associated Problems Recent Progress Patient-Stated? Author DH Home Medication Compliance and Understanding Patient Facing Action Plan No Lani Vargas, [facility] Note: Maintain control of disease for as long as possible as assessed by tumor marker levels and scans in clinic every 3 to 6 months documented as of this encounter Visit Diagnoses Not on filedocumented in this encounter Care Teams Miner Assistant Relationship Specialty Start Date End Date Evelyne Hunt APRN [address] [place] [address] PCP - General Internal Medicine 09/23/17 documented as of this encounter
--- OUTSIDE RECORDS SUMMARY | 2023-12-01 02:14 | XMS_ITS | Encounter Summary ---
Author Organization [facility] [place] [address] Care Team Providers Care Personal Assistant Name Role Phone Evelyne Hunt Dat STEVEN Primary Care Provider [phone] Encounter Details Date Type Department Care Team (Late st Contact Info) Description 06/06/2020 External Results [place] [address] Jaqueline Doran, RN Social History Tobacco Use Types [...] 9:[address] [place] [address] Xavier Malhotra MD [facility] [place] [address] 12/29/2023 Hospital Encounter [place] [address] Xavier Malhotra MD [facility] [place] [address] Paroxysmal atrial fibrillation 12/29/2023 7:30 AM EDT - 12/29/2023 12:00 PM EDT Surgery [place] [phone] Xavier Malhotra MD [facility] [place] [address] ELECTROPHYSIOLOGY PROCEDURE 01/14/2024 10:40 AM EDT Office Visit Cardiology at [address] [phone] Carmen Castaneda PA [facility] CARDIOLOGY [place], [place] [phone] Scheduled Procedures Name Priority Associated Diagnoses Date/Ti me TRANSESOPHAGEAL ECHO DURING CATH/EP PROCEDURE Paroxysmal atrial fibrillation 12/29/2023 7:30 AM EDT documented as of this encounter Goals Goal Patient Goal Type Associated Problems Recent Progress Patient-Stated? Author [facility] Medication Compliance and Understanding Patient Facing Action Plan No Lani Vargas, [facility] Note: Maintain control of disease for as long as possible as assessed by tumor marker levels and scans in clinic every 3 to 6 months documented as of this encounter Procedures Procedure Name Priority Date/Time Associated Diagnosis Comments EXTERNAL LAB CBC CMP THYROID RESULTS PANEL Routine 06/06/2020 EXTERNAL LAB CBC CMP THYROID RESULTS PANEL Routine 06/05/2020 documented in this encounter Results * CBC / CMP / Thyroid External Results (06/06/2020) Natalie Vallejo MD EXTERNAL LAB ORDERAB LES * CBC / CMP / Thyroid External Results (06/05/2020) White Blood Cell 8.03 Red Blood Cell 3.44 Hemoglobin 12.7 Hematocrit 36.8 Platelet 201 Sodium 137 Potassium 3.8 Chloride 103 Carbon Dioxide 26 Blood Urea Nitrogen 19 Creatinine 0.7 Glucose 110 Calcium 9.2 Protein, Total 7.3 Albumin 3.9 Bilirubin, Total 1.0 Alkaline Phosphatase 96 Aspartate Aminotransferase 21 Alanine Aminotransferase 30 ANC 5.38 CA 125 6 06/05/2020 Natalie Vallejo MD EXTERNAL LAB ORDERAB LES documented in this encounter Visit Diagnoses Not on filedocumented in this encounter Care Teams Personal Assistant Relationship Specialty Start Date End Date Evelyne Hunt, TENISHA [address] [place] [address] PCP - General Internal Medicine 09/23/17 documented as of this encounter
--- OUTSIDE RECORDS SUMMARY | 2023-12-01 02:14 | XMS_ITS | Encounter Summary ---
[place] [address] Care Team Providers Care Catering Associate Name Role Phone Evelyne Hunt APRN Primary Care Provider [phone] Reason for Visit * Reason Onset Date Comments Post Procedure Call 08/16/2020 Encounter Details Date Type Department Care Team (Late st Contact Info) Description 08/16/2020 Telephone Cardiology at [address] [phone] Edyta Mchugh, RN Post Procedure Call Social History Tobacco Use Types Packs/Day Years [...] encounter Miscellaneous Notes * Telephone Encounter - Edyta Mchugh RN - 08/16/2020 9:06 AM EDTSummary: Post Procedure Call: EPS EP RN POST-PROCEDURE CALL Patient Name: Gabi Luna Patient Performing MD: KALEIGH Date of Procedure: 08/08/20 Date of Discharge: 08/08/20 Procedure: EPS Date Patient was Called: 08/16/20 Assessment: Catheter Insertion Sites (bruising, swelling, redness, discharge): Negative - CP/dizziness/SOB/palpitations: Negative - currently wearing Zio UTI symptoms (pain, burning, urgency, frequency): Negative Headaches: Negative S/S of infection (fever/chills/malaise): Negative Med Changes/Clarification: N/A F/u plan - 09/[address] Subramanian documented in this encounter Plan of Treatment Upcoming Encounters Date Type Department Care Team (Latest Contact Info) Description 12/25/2023 9:[address] [place] [address] Xavier Malhotra MD [facility] [place] [address] 12/29/2023 Hospital Encounter Electrophysiology [place] [address] Xavier Malhotra MD [facility] [place] [address] Paroxysmal atrial fibrillation 12/29/2023 7:30 AM EDT - 12/29/2023 12:00 PM EDT Surgery Electrophysiology Lab at [place] [address] Xavier Malhotra MD [facility] [place] [address] ELECTROPHYSIOLOGY PROCEDURE 01/14/2024 10:40 AM EDT [place] [address] Carmen Castaneda PA [facility] [place] [address] Scheduled Procedures Name Priority Associated Diagnoses Date/Ti me TRANSESOPHAGEAL ECHO DURING CATH/EP PROCEDURE Paroxysmal atrial fibrillation 12/29/2023 7:30 AM EDT documented as of this encounter Goals Goal Patient Goal Type Associated Problems Recent Progress Patient-Stated? Author DH Home Medication Compliance and Understanding Patient Facing Action Plan Lani Love, [facility] Note: Maintain control of disease for as long as possible as assessed by tumor marker levels and scans in clinic every 3 to 6 months documented as of this encounter Visit Diagnoses Not on filedocumented in this encounter Care Teams Catering Associate Relationship Specialty Start Date End Date Evelyne Hunt APRN [address] [place] [address] PCP - General Internal Medicine 09/23/17 documented as of this encounter
--- OUTSIDE RECORDS SUMMARY | 2023-12-01 02:14 | XMS_ITS | Encounter Summary ---
[place] [address] Care Team Providers Care Folded Towel Machine Operator Name Role Phone MarileeEvelyne APRN Primary Care Provider [phone] Encounter Details Date Type Department Care Team (Late st Contact Info) Description 08/09/2020 Telephone Cardiology at [address] [phone] Stephanie Samuel, RN Social History Tobacco Use Types Packs/Day [...] encounter Miscellaneous Notes * Telephone Encounter - Stephanie Samuel, RN - 08/09/2020 10:28 AM EDT RTC to Mrs Luna regarding her message stating she would like to stop her medications, as she feels better this morning not having taken her Diltiazem, or her Metoprolol. Mrs Luna states she was recently seen in uncontrolled Atrial Fibrillation and her Diltiazem was increased to 360mg, ER, PO, QD. She confirms her Metoprolol Dosage of XL 25mg, PO, QD Mrs Luna had an unsuccessful ablation yesterday, and is questioning whether she wants to take these medications, now. Mrs Luna is wearing a ZIO monitor, for the next 2 weeks, and confirmed her appointment on July 25, 2020, with Dr Subramanian.. Advised it is best to allow her Cardiologists to recommend medication adjustments, or new medications are possible. The patient indicates understanding of these issues and agrees with the plan. documented in this encounter Plan of Treatment Upcoming Encounters Date Type Department Care Team (Latest Contact Info) Description 12/25/2023 9:[address] Scan at [place] [phone] Xavier Malhotra MD [facility] [address] 12/29/2023 Hospital Encounter Electrophysiology Lab at [place] [phone] Xavier Malhotra MD [facility] [place] [address] Paroxysmal atrial fibrillation 12/29/2023 7:30 AM EDT - 12/29/2023 12:00 PM EDT Surgery Electrophysiology Lab at [place] [phone] Xavier Malhotra MD [facility] [place] [address] ELECTROPHYSIOLOGY PROCEDURE 01/14/2024 10:40 AM EDT Office Visit Cardiology at [address] [phone] Carmen Castaneda PA [facility] [place] [address] Scheduled Procedures Name Priority Associated Diagnoses Date/Ti me TRANSESOPHAGEAL ECHO DURING CATH/EP PROCEDURE Paroxysmal atrial fibrillation 12/29/2023 7:30 AM EDT documented as of this encounter Goals Goal Patient Goal Type Associated Problems Recent Progress Patient-Stated? Author DH Home Medication Compliance and Understanding Patient Facing Action Plan Lani Love E, [facility] Note: Maintain control of disease for as long as possible as assessed by tumor marker levels and scans in clinic every 3 to 6 months documented as of this encounter Visit Diagnoses Not on filedocumented in this encounter Care Teams Folded Towel Machine Operator Relationship Specialty Start Date End Date Evelyne Hunt APRN [address] [place] [address] PCP - General Internal Medicine 09/23/17 documented as of this encounter
--- OUTSIDE RECORDS SUMMARY | 2023-12-01 02:14 | XMS_ITS | Encounter Summary ---
Author Organization [facility] [place] [address] Care Team Providers Care Ada Accommodation Consultant Name Role Phone Evelyne Hunt Dat STEVEN Primary Care Provider [phone] Encounter Details Date Type Department Care Team (Late st Contact Info) Description 07/26/2020 Orders Only Cardiology at [address] [phone] Dwain Gibson MD [facility] [place] [address] SVT (supraventricular tachycardia) Social History Tobacco Use Types Packs/Day Years [...] 9:[address] [place] [address] Xavier Malhotra MD [facility] [place] [address] 12/29/2023 Hospital Encounter [place] [address] Xavier Malhotra MD [facility] [place] [address] Paroxysmal atrial fibrillation 12/29/2023 7:30 AM EDT - 12/29/2023 12:00 PM EDT Surgery [place] [phone] Xavier Malhotra MD [facility] [place] [address] ELECTROPHYSIOLOGY PROCEDURE 01/14/2024 10:40 AM EDT Office Visit Cardiology at [address] [phone] Carmen Castaneda PA [facility] [place] [address] Scheduled Procedures Name Priority Associated Diagnoses Date/Ti [...] this encounter Visit Diagnoses Diagnosis SVT (supraventricular tachycardia) Other specified cardiac dysrhythmias Paroxysmal atrial fibrillation Atrial fibrillation Paroxysmal atrial fibrillation Atrial fibrillation documented in this encounter Care Teams Ada Accommodation Consultant Relationship Specialty Start Date End Date Evelyne Hunt APRN [address] [place] [address] PCP - General Internal Medicine 09/23/17 documented as of this encounter
--- OUTSIDE RECORDS SUMMARY | 2023-12-01 02:14 | XMS_ITS | Encounter Summary ---
Author Organization [facility] [place] [address] Care Team Providers Care Certified Medical Biller Name Role Phone Evelyne Hunt Dat STEVEN Primary Care Provider [phone] Reason for Visit * Reason Comments Specialty Pharmacy Review Zejula Encounter Details Date Type Department Care Team (Late st Contact Info) Description 06/15/2020 Specialty [place] [phone] Erick Guzman, [facility] Social History Tobacco Use Types Packs/Day [...] encounter Progress Notes * Kennedi Soler - 06/15/2020 11:59 PM EST The [facility] has completed a benefits investigation for Gabi Luna to review their eligibility to fill at [facility]. Per patient's medication list they are prescribed ZEJULA and the medication is able to be filled at the [facility]. Fills with pharmacy. documented in this encounter Plan of Treatment Upcoming Encounters Date Type Department Care Team (Latest Contact Info) Description 12/25/2023 9:[address] [place] [address] Xavier Malhotra MD [facility] [place] [address] 12/29/2023 Hospital Encounter Electrophysiology Lab at [address] Xavier Malhotra MD [facility] [place] [address] Paroxysmal atrial fibrillation 12/29/2023 7:30 AM EDT - 12/29/2023 12:00 PM EDT Surgery Electrophysiology Lab at [place] [phone] Xavier Malhotra MD [facility] [place] [address] ELECTROPHYSIOLOGY PROCEDURE 01/14/2024 10:40 AM EDT Office Visit Cardiology at [place] [address] Carmen Castaneda PA [facility] [place] [address] Scheduled Procedures Name Priority Associated Diagnoses Date/Ti me TRANSESOPHAGEAL ECHO DURING CATH/EP PROCEDURE Paroxysmal atrial fibrillation 12/29/2023 7:30 AM EDT documented as of this encounter Goals Goal Patient Goal Type Associated Problems Recent Progress Patient-Stated? Author DH [place] Medication Compliance and Understanding Patient Facing Action Plan Lani Love, [facility] Note: Maintain control of disease for as long as possible as assessed by tumor marker levels and scans in clinic every 3 to 6 months documented as of this encounter Visit Diagnoses Not on filedocumented in this encounter Care Teams Certified Medical Biller Relationship Specialty Start Date End Date Evelyne Hunt APRN [address] [place] [address] PCP - General Internal Medicine 09/23/17 documented as of this encounter
--- OUTSIDE RECORDS SUMMARY | 2023-12-01 02:14 | XMS_ITS | Encounter Summary ---
Author Organization [facility] [place] [address] Care Team Providers Care Manager Bilingual Name Role Phone Evelyne Hunt APRN Primary Care Provider [phone] Reason for Visit * Reason Onset Date Comments Results 04/20/2020 Encounter Details Date Type Department Care Team (Late st Contact Info) Description 04/20/2020 Telephone [place] [phone] Jaqueline Doran, RN Results Social History Tobacco Use Types Packs/Day Years [...] encounter Miscellaneous Notes * Telephone Encounter - Jaqueline Doran RN - 04/20/2020 7:54 AM EST Called to inform that CBC, CMP and Ca 125 are all great. She's happy with this good news. Recent Results (from the past 72 hour(s)) CBC / CMP / Thyroid External Results Result Value Ref Range WBC 6.75 (External Lab) Hemoglobin 12.5 (External Lab) Hematocrit 36.9 (External Lab) Platelets 178 (External Lab) Sodium 137 (External Lab) Potassium 4.0 (External Lab) Chloride 103 (External Lab) CO2 27 (External Lab) BUN 21 (ExtH) Creatinine 0.83 (External Lab) Calcium 9.5 (External Lab) Total Protein 7.5 (External Lab) Albumin 4.1 (External Lab) Total Bilirubin 0.9 (External Lab) Alk Phos 81 (External Lab) AST 17 (External Lab) ALT 27 (External Lab) Neutrophil % 67.9 (External Lab) Neutrophil Abs 4,580 (External Lab) Cancer Antigen 125 Result Value Ref Range CA 125 6 documented in this encounter Plan of Treatment Upcoming Encounters Date Type Department Care Team (Latest Contact Info) Description 12/25/2023 9:[address] Scan at [address] Xavier Malhotra MD [facility] [place] [address] 12/29/2023 Hospital Encounter [place] [phone] Xavier Malhotra MD [facility] [place] [address] Paroxysmal atrial fibrillation 12/29/2023 7:30 AM EDT - 12/29/2023 12:00 PM EDT Surgery [place] [phone] Xavier Malhotra MD [facility] [place] [address] ELECTROPHYSIOLOGY PROCEDURE 01/14/2024 10:40 AM EDT Office Visit Cardiology at [address] [phone] Carmen Castaneda PA [facility] [place] [address] Scheduled Procedures Name Priority Associated Diagnoses Date/Ti me TRANSESOPHAGEAL ECHO DURING CATH/EP PROCEDURE Paroxysmal atrial fibrillation 12/29/2023 7:30 AM EDT documented as of this encounter Goals Goal Patient Goal Type Associated Problems Recent Progress Patient-Stated? Author DH Home Medication Compliance and Understanding Patient Facing Action Plan No Lani Vargas, [facility] Note: Maintain control of disease for as long as possible as assessed by tumor marker levels and scans in clinic every 3 to 6 months documented as of this encounter Visit Diagnoses Not on filedocumented in this encounter Care Teams Manager Bilingual Relationship Specialty Start Date End Date Evelyne Hunt APRN [address] [place] [address] PCP - General Internal Medicine 09/23/17 documented as of this encounter
--- OUTSIDE RECORDS SUMMARY | 2023-12-01 02:14 | XMS_ITS | Encounter Summary ---
Author Organization [facility] [place] [address] Care Team Providers Care Beater Engineer Name Role Phone MarileeEvelyne APRN Primary Care Provider [phone] Reason for Visit * Reason Comments Medication Management Patient Education Encounter Details Date Type Department Care Team (Late st Contact Info) Description 05/05/2020 Specialty [place] [phone] Lani Vargas Red Social History Tobacco Use [...] Progress Notes * Lani Coats RPH - 05/05/2020 11:48 AM EST Specialty Pharmacy Consultation; Lani Coats RPH Comprehensive Medication Management (CMM) Gabi Luna Diagnosis: [...] today and not experiencing any new side effects. Her labs have improved and she is happy to have an effective treatment at her current dose. She would consider increasingher dose if ever instructed by her clinician although she had significant diarrhea intially which has improved on her lower dose. Her metoprolol had been lowered but the diltiazem was increased with her last cardiology appointment and her blood pressure has been normal. She no longer takes the CBD oil or antiemetics. Med list reviewed - no major interactions identified. The patient is aware of the importance of lab follow up and infection prevention precautions such as proper hand washing, inactive vaccination, and wearing a during an illness. The importance of adherence to treatment and strategies to improve compliance including use of pill boxes, calendar reminders, or routine alarms was discussed. The patient was instructed to notify the clinic of any upcoming procedures or new medications and OTC products. Resources are available to the patient from the cancer center such as particleboard factory worker consultation and social work services. Administration, allergies, dosage, safe storage away from pets or children, handling and disposal were reviewed. The pharmacy's contact information, operatinghours, and on-call services were given to the patient verbally and in writing. The medication will be mailed out for a $0 copay. Clinic follow-up needed: no Allergies and Drug intolerance: Allergies Allergen Reactions ??? Penicillins Anaphylaxis ??? Taxol [Paclitaxel] Palpitations and Other (See [...] calculate BMI. Medication reconciliation discrepancies (compared to [facility] med list): no Medication Adherence Patient reported [...] Dispense Refill ??? dilTIAZem CD (Cardizem CD) 240 mg Capsule, Sust. Release 24 hr Take 1 capsule by mouth daily. 30 capsule 0 ??? metoprolol succinate XL (Toprol-XL) 25 mg Tablet Sustained Release 24 hr Take 1 tablet by mouthdaily. 30 tablet 12 ??? niraparib (ZEJULA) capsule Take 200 mg by mouth daily for 30 days. Call clinic before starting medication. 30 Doses of treatment to dispense 11 ??? clobetasoL (TEMOVATE) 0.05 % Ointment Apply [...] Vitals: Ht Readings from Last 1 Encounters: 03/28/20 164.4 cm (5' 4.72) Wt Readings from Last 3 Encounters: 03/28/20 54 kg (119 lb) 02/01/20 54 kg (119 lb) 12/29/19 54.4 kg (120 lb) Temp Readings from Last 3 Encounters: 02/24/20 36.6 ??C (97.9 ??F) (Temporal) 02/16/20 35.8 ??C (96.4 ??F) (Temporal) 12/13/19 36.6 ??C (97.8 ??F) (Temporal) BP Readings from Last 3 Encounters: 02/24/20 115/76 02/16/20 124/80 02/01/20 139/88 Pulse Readings from Last 3 Encounters: 02/24/20 84 02/16/20 72 02/01/20 95 Pertinent Lab values: Lab Results Component Value Date NA 137 (External Lab) 04/18/2020 K 4.0 (External Lab) 04/18/2020 CL 103 (External Lab) 04/18/2020 CO2 27 (External Lab) 04/18/2020 BUN 21 (ExtH) 04/18/2020 CREATININE 0.83 (External Lab) 04/18/2020 GLUCOSE 93 07/23/2019 CALCIUM 9.5 (External Lab) 04/18/2020 Lab Results Component Value Date ALT 27 (External Lab) 04/18/2020 AST 17 (External Lab) 04/18/2020 ALKPHOS 81 (External Lab) 04/18/2020 BILITOT 0.9 (External Lab) 04/18/2020 ALBUMIN 4.1 (External Lab) 04/18/2020 PROT 7.5 (External Lab) 04/18/2020 Lab Results Component Value Date WBC 6.75 (External Lab) 04/18/2020 HGB 12.5 (External Lab) 04/18/2020 HCT 36.9 (External Lab) 04/18/2020 MCV 95.7 (H) 02/24/2020 PLATELET 178 (External Lab) 04/18/2020 No results found for: HA1C Immunization History Administered Date(s) Administered ??? Influenza Vaccine (Novel) [id number], Injectable 04/06/2009 Assessment and Recommendations: Title Type of Medication Management: chronic disease management Recipient: beneficiary Provider: plan sponsor pharmacist Method of Contact: by telephone Cognitive Ability: good Cognitive Impairment Status Verified this Year: no Patient Counseling Counseled the patient on the following: medication safety precautions education provided, possible drug and prescription drug interactions discussed, possible drug and OTC drug and food interactions discussed, cost of medications and cost implications discussed, adherence and missed doses discussed, monitoring medication discussed, preventative care discussed Drug Medication Management Summary Topics discussed: medication safety precautions education provided, possible drug and prescription drug interactions discussed, possible drug and OTC drug and food interactions discussed, cost of medications and cost implications discussed, adherence and missed doses discussed, monitoring medication discussed, preventative care discussed Number of adverse drug events identified: 0 Time spent: 16-30 min Treatment Outcomes 05/05/2020 1150 Disease progression: Stable Patient Overall Status: Stable [...] Assessment: Does the patient have a primary care worker? no Does the patient have an emergency contact on file: Yes Does patient need referral to social welfare research worker: No Does patient need referral to advocacy [...] Amount: $0 Day Supply: 30 Date Needed: 05/13/20 Copay assistance required: no Therapy Assessment: Current Medication Dosing/Route/Frequency: Zejula 100mg PO QD Appropriate Therapy: Yes Effective: yes - CA level reduced Patient-Reported Side Effects: diarrhea, thrombocytopenia improved Patient assessed for pertinent side effects such as arthralgia, neuropathy, vision changes, cough, rash, hand/foot syndrome, hot flashes, nausea, and diarrhea or constipation. Adjunct medication needed? no Is the patient experiencing pain? no Patient Goals: Hematology/Oncology related goals may include remission, palliative or hospice care, a bridge to future surgery, transplant, and radiation or infusion therapy. Goals ??? [facility] Medication Compliance and Understanding Maintain control of disease for as long as possible as assessed by tumor marker levels and scans inclinic every 3 to 6 months Is the patient on track to achieve goals of therapy? Yes Care Plan and Interventions: Care Plan Reviewed and Approved by both Pharmacist and Patient: Yes Did Care Plan Change? Yes - dose reduced for side effects per clinic Interventions (if applicable): No Patient experienced change in condition that affects treatment: no Additional care/services needed: no Educational information or adherence tools provided: Yes Additional equipment/supplies required: no Pharmacist follow-up needed: Yes Patient Satisfaction with Care/Services Provided: Yes Informed patient of specialty pharmacy services: Yes -Patient received welcome and rights packet: no - mailed again -Patient is aware a licensed pharmacist is [...] Patient Satisfaction with Therapy: yes - pt happy to have effective therapy Patient understands any changes to current drug regimen were made at the appointment and that [facility] is providing recommendations (summary located at top of note) for provider review and follow up. Lani Coats RPH 05/05/20 11:50 AM documented in this encounter Plan of Treatment Upcoming Encounters Date Type Department Care Team (Latest Contact Info) Description 12/25/2023 9:[address] [place] [phone] Xavier Malhotra MD [facility] [place] [address] 12/29/2023 Hospital Encounter [place] [phone] Xavier Malhotra MD [facility] [place] [address] Paroxysmal atrial fibrillation 12/29/2023 7:30 AM EDT - 12/29/2023 12:00 PM EDT Surgery [place] [phone] Xavier Malhotra MD [facility] [place] [address] ELECTROPHYSIOLOGY PROCEDURE 01/14/2024 10:40 AM EDT Office Visit Cardiology at [address] [phone] Carmen Castaneda PA [facility] [place] [address] Scheduled Procedures Name Priority Associated Diagnoses Date/Ti me TRANSESOPHAGEAL ECHO DURING CATH/EP PROCEDURE Paroxysmal atrial fibrillation 12/29/2023 7:30 AM EDT documented as of this encounter Goals Goal Patient Goal Type Associated Problems Recent Progress Patient-Stated? Author DH Home Medication Compliance and Understanding Patient Facing Action Plan Lani Love, [facility] Note: Maintain control of disease for as long as possible as assessed by tumor marker levels and scans in clinic every 3 to 6 months documented as of this encounter Visit Diagnoses Not on filedocumented in this encounter Care Teams Beater Engineer Relationship Specialty Start Date End Date Evelyne Hunt APRN [address] [place] [address] PCP - General Internal Medicine 09/23/17 documented as of this encounter
--- OUTSIDE RECORDS SUMMARY | 2023-12-01 02:14 | XMS_ITS | Encounter Summary ---
Author Organization [facility] Address [facility] [place] [address] Care Team Providers Care Granite Polisher Machine Name Role Phone Kiki Huntyce Dat STEVEN Primary Care Provider [phone] Encounter Details Date Type Department Care Team (Late st Contact Info) Description 07/20/2020 Telephone [place] [phone] Chris Jose MD [facility] [place] [address] Social History Tobacco Use Types Packs/Day Years [...] encounter Miscellaneous Notes * Telephone Encounter - Chris Jose MD - 07/20/2020 11:46 PM EDTSummary: Telephone Note Returned a call to Ivana, her Sandoval picked up from the hospital at [facility]. He was atthe parking lot, as she had presented there for ongoing heart palpitations that were difficult to control. As she is being evaluated in the emergency room discussed that we are happy to provide any information that they may need to wean her care and that if he needs to touch base with us we would be happy to talk to them about ongoing treatment. I did not talk with Ivana as she was in the hospitaland her phone was out in the car with her . documented in this encounter Plan of Treatment Upcoming Encounters Date Type Department Care Team (Latest Contact Info) Description 12/25/2023 9:[address] Scan at [place] [phone] Xavier Malhotra MD [facility] [place] [address] 12/29/2023 Hospital Encounter [place] [address] Xavier Malhotra MD [facility] [place] [address] Paroxysmal atrial fibrillation 12/29/2023 7:30 AM EDT - 12/29/2023 12:00 PM EDT Surgery Electrophysiology Lab at [address] Xavier Malhotra MD [facility] [place] [address] ELECTROPHYSIOLOGY PROCEDURE 01/14/2024 10:40 AM EDT Office Visit Cardiology at [place] [phone] Carmen Castaneda PA [facility] [address] Scheduled Procedures Name Priority Associated Diagnoses Date/Ti me TRANSESOPHAGEAL ECHO DURING CATH/EP PROCEDURE Paroxysmal atrial fibrillation 12/29/2023 7:30 AM EDT documented as of this encounter Goals Goal Patient Goal Type Associated Problems Recent Progress Patient-Stated? Author DH Home Medication Compliance and Understanding Patient Facing Action Plan Lani Love, [facility] Note: Maintain control of disease for as long as possible as assessed by tumor marker levels and scans in clinic every 3 to 6 months documented as of this encounter Visit Diagnoses Not on filedocumented in this encounter Care Teams Granite Polisher Machine Relationship Specialty Start Date End Date Evelyne Hunt, BUS INSPECTOR [address] [place] [address] PCP - General Internal Medicine 09/23/17 documented as of this encounter
--- OUTSIDE RECORDS SUMMARY | 2023-12-01 02:14 | XMS_ITS | Encounter Summary ---
Author Organization [facility] [place] [address] Care Team Providers Care Inside Sales Coordinator Name Role Phone Marilee Evelyne Dat STEVEN Primary Care Provider [phone] Reason for Visit * Reason Onset Date Comments Results 05/12/2020 Encounter Details Date Type Department Care Team (Late st Contact Info) Description 05/12/2020 Telephone [place] [phone] Jaqueline Doran RN Results Social History Tobacco Use Types [...] Telephone Encounter - Jaqueline Doran RN - 05/12/2020 9:12 AM EST LM to inform of lab results were great. Also informed that lab slip and covid vaccine faq are sent in the mail and to do labs monthly and inform of next f/u on 06/14 as video appointment. documented in this encounter Plan of Treatment Upcoming Encounters Date Type Department Care Team (Latest Contact Info) Description 12/25/2023 9:[address] [place] [address] Xavier Malhotra MD [facility] [place] [address] 12/29/2023 Hospital Encounter Electrophysiology Lab at [place] [address] Xavier Malhotra MD [facility] [place] [place] [address] Paroxysmal atrial fibrillation 12/29/2023 7:30 AM EDT - 12/29/2023 12:00 PM EDT Surgery Electrophysiology Lab at [place] [phone] Xavier Malhotra MD [facility] [place] [address] ELECTROPHYSIOLOGY PROCEDURE 01/14/2024 10:40 AM EDT Office Visit Cardiology at [place] [address] Carmen Castaneda PA [facility] [place] [address] Scheduled Procedures Name Priority Associated Diagnoses Date/Ti me TRANSESOPHAGEAL ECHO DURING CATH/EP PROCEDURE Paroxysmal atrial fibrillation 12/29/2023 7:30 AM EDT documented as of this encounter Goals Goal Patient Goal Type Associated Problems Recent Progress Patient-Stated? Author [facility] Medication Compliance and Understanding Patient Facing Action Plan Lani Love, [facility] Note: Maintain control of disease for as long as possible as assessed by tumor marker levels and scans in clinic every 3 to 6 months documented as of this encounter Visit Diagnoses Not on filedocumented in this encounter Care Teams Inside Sales Coordinator Relationship Specialty Start Date End Date Evelyne Hunt APRN [address] [place] [address] PCP - General Internal Medicine 09/23/17 documented as of this encounter
--- OUTSIDE RECORDS SUMMARY | 2023-12-01 02:14 | XMS_ITS | Encounter Summary ---
Author Organization [facility] Address [facility] [place] [address] Care Team Providers Care Stone Chimney Mason Name Role Phone Evelyne Hunt Dat STEVEN Primary Care Provider [phone] Encounter Details Date Type Department Care Team (Late st Contact Info) Description 05/03/2020 Abstract Cardiology at [address] [phone] Praveena Petty, RN Social History [...] 9:[address] [place] [address] Xavier Malhotra MD [facility] [place] [address] 12/29/2023 Hospital Encounter [place] [address] Xavier Malhotra MD [facility] [place] [address] Paroxysmal atrial fibrillation 12/29/2023 7:30 AM EDT - 12/29/2023 12:00 PM EDT Surgery [place] [phone] Xavier Malhotra MD [facility] [place] [address] ELECTROPHYSIOLOGY PROCEDURE 01/14/2024 10:40 AM EDT Office Visit Cardiology at [address] [phone] Carmen Castaneda PA [facility] CARDIOLOGY [place], [place] [phone] Scheduled Procedures Name Priority Associated Diagnoses Date/Ti [...] on filedocumented in this encounter Care Teams Stone Chimney Mason Relationship Specialty Start Date End Date Evelyne Hunt APRN [address] [place] [address] PCP - General Internal Medicine 09/23/17 documented as of this encounter
--- OUTSIDE RECORDS SUMMARY | 2023-12-01 02:14 | XMS_ITS | Encounter Summary ---
Author Organization [facility] [place] [address] Care Team Providers Care Coffee Break Attendant Name Role Phone Kiki Huntyce Dat STEVEN Primary Care Provider [phone] Reason for Visit * Reason Comments Medication Refill Encounter Details Date Type Department Care Team (Late st Contact Info) Description 06/06/2020 Specialty [place] [phone] Lizz Jones [facility] Social History Tobacco Use Types Packs/Day Years [...] Progress Notes * Lizz Jones RPH - 06/06/2020 2:57 PM EST Clinical Management Plan: Refill Specialty Pharmacy Consultation; Lizz Jones Red Comprehensive Medication Management (CMM) Gabi Smithrhonda [...] complete drug. Medication Reconciliation Discrepancies (compared to [facility] med list) No Specialty Pharmacy Refill Questionnaire Refill Questionnaire 06/06/2020 What is the name of the specialty medication you are refilling? Zejula Are you taking any new medications? No Any new medical condition? No Any new allergies? No Any new side effects that are bothersome? No Adherence: Any missed doses? No Patient understands no changes to current drug regimen were made.. Lizz Jones RPH 06/06/20 2:58 PM documented in this encounter Plan of Treatment Upcoming Encounters Date Type Department Care Team (Latest Contact Info) Description 12/25/2023 9:[address] [place] [phone] Xavier Malhotra MD [facility] [place] [address] 12/29/2023 Hospital Encounter Electrophys[place] [address] [facility] [place] [address] Paroxysmal atrial fibrillation 12/29/2023 7:30 AM EDT - 12/29/2023 12:00 PM EDT Surgery Electrophys[place] [phone] [facility] [address] ELECTROPHYSIOLOGY PROCEDURE 01/14/2024 10:40 AM EDT Office Visit Cardiology at [address] [address] [facility] [address] Scheduled Procedures Name Priority Associated Diagnoses Date/Ti [...] on filedocumented in this encounter Care Teams Coffee Break Attendant Relationship Specialty Start Date End Date Evelyne Hunt APRN [address] [place] [address] PCP - General Internal Medicine 09/23/17 documented as of this encounter
--- OUTSIDE RECORDS SUMMARY | 2023-12-01 02:14 | XMS_ITS | Encounter Summary ---
Author Organization [facility] Address [facility] [place] [address] Care Team Providers Care Dimension Quarry Supervisor Name Role Phone MarileeEvelyne APRN Primary Care Provider [phone] Encounter Details Date Type Department Care Team (Latest Contact Info) Description 05/11/2020 8:20 AM EST TH Visit (TeleHealth) [place] [phone] Natalie Vallejo MD [facility] [place] [address] Ovarian cancer, lateral, stage IIIb high-grade serous/endometrioid, 07/20/2019 s/p FREDI/BSO/oment/PPALND /RSReanstomosis Social History Tobacco Use Types Packs/Day Years [...] - Inhaled Oxygen Concentration - - Weight 60.2 kg (132 lb 11.2 oz) 021 10:03 AM EST Height 164.4 cm (5' 4.72) 05/09/2020 1 0:03 AM EST Body Mass Index 22.27 05/09/2020 10:03 AM EST documented in this encounter Progress Notes * Eleni Marcial LNA - 05/11/2020 8:20 AM EST _xx___Patient reached and the following information was reviewed/obtained per protocol. _xx__Confirmed patient name and date of _xx__Confirmed tele med appt (Virtual visit) is downloaded and functioning xx___Confirmed location of patient- TeleVisit is taking place in [place]__ [place]__ If not on myD, working on signing up for my DH Confirmed has completed any pre-visit questionnaires If has not received required previsit questionnaires, send via [facility] _xx__Reviewed medications, allergies, pharmacy, pain, education _xx_Documented height/weight 132.7lb Other information or concerns: * Natalie Vallejo MD - 05/11/2020 8:20 AM EST 8:48- (first 8 minutes with computer issues) - 920 Gynecologic Oncology-Telehealth Encounter. ?? Reason/purpose for telehealth [...] been doing well since that time. She does not have nausea or fatigue or other symptoms and overall is feeling quite well. She is wondering about her neuropathy which is in both feet but particularly worse in her right foot. She is wondering if this will improve. We are still waiting on her labs. She has had a recent adjustment in her cardiac meds to help with an increase in her SVT. She had her diltiazem increased to 240 mg and her metoprolol decreased. She notes that since this time she is feeling much better and more back to normal. She weighs 132 pounds this week and is back up about 10 #. She is pleased with this. Her appetite is good. Her CA125 is reportedly 6 most recently. ??Results for MARK WALLER ( ) as of 05/11/2020 08:53 Ref. Range 04/18/2020 00:00 WBC Unknown 6.75 (External Lab) Hemoglobin Unknown 12.5 (External Lab) Hematocrit Unknown 36.9 (External Lab) Platelets Unknown 178 (External Lab) Neutrophil % Unknown 67.9 (External Lab) Neutrophil Abs Unknown 4,580 (External Lab) Sodium Unknown 137 (External Lab) Potassium Unknown 4.0 (External Lab) Chloride Unknown 103 (External Lab) CO2 Unknown 27 (External Lab) BUN Unknown 21 (UF) Creatinine Unknown 0.83 (External Lab) Calcium Unknown 9.5 (External Lab) Total Protein Unknown 7.5 (External Lab) Albumin Unknown 4.1 (External Lab) Total Bilirubin Unknown 0.9 (External Lab) Alk Phos Unknown 81 (External Lab) AST Unknown 17 (External Lab) ALT Unknown 27 (External Lab) CA 125 Unknown 6 I spent a total of 32 minutes on this visit,including time with the patient and pre-/post-visit planning for the management of ovarian cancer maintenance. ?? Items to Complete - (To-Do List): 1. Tolerating PARP well. Continue at 100 mg at night. 2. Also answered questions about the COVID vaccine 3. Keep [facility] labs monthly 4. followup via telehealth in 1 month 5. Questions answered about intimacy. documented in this encounter Plan of Treatment Upcoming Encounters Date Type Department Care Team (Latest Contact Info) Description 12/25/2023 9:[address] [place] [address] Xavier Malhotra MD [facility] [place] [address] 12/29/2023 Hospital Encounter [place] [phone] Xavier Malhotra MD [facility] [place] [address] Paroxysmal atrial fibrillation 12/29/2023 7:30 AM EDT - 12/29/2023 12:00 PM EDT Surgery [place] [phone] Xavier Malhotra MD [facility] [place] [address] ELECTROPHYSIOLOGY PROCEDURE 01/14/2024 10:40 AM EDT Office Visit Cardiology at [address] [phone] Carmen Castaneda PA [facility] [place] [address] Scheduled Procedures Name Priority Associated Diagnoses Date/Ti me TRANSESOPHAGEAL ECHO DURING CATH/EP PROCEDURE Paroxysmal atrial fibrillation 12/29/2023 7:30 AM EDT documented as of this encounter Goals Goal Patient Goal Type Associated Problems Recent Progress Patient-Stated? Author DH Home Medication Compliance and Understanding Patient Facing Action Plan Lani Love, [facility] Note: [...] fibrillation documented in this encounter Care Teams Dimension Quarry Supervisor Relationship Specialty Start Date End Date Evelyne Hunt APRN [address] [place] [address] PCP - General Internal Medicine 09/23/17 documented as of this encounter
--- OUTSIDE RECORDS SUMMARY | 2023-12-01 02:14 | XMS_ITS | Encounter Summary ---
Author Organization [place] [address] Care Team Providers Care Fish Packer Name Role Phone Kiki Huntyce Dat STEVEN Primary Care Provider [phone] Encounter Details Date Type Department Care Team (Late st Contact Info) Description 05/03/2020 Telephone Cardiology at [address] [phone] Praveena Petty, RN Social History Tobacco Use [...] Telephone Encounter - Praveena Petty RN - 05/03/2020 4:15 PM EST Patient called with an update on how she has done on the increased dose of Diltiazem at 240mg daily. Lengthy call ensued x 30 minutes. Patient states she has noticed an improvement and she also has not needed to take any break throughDilt. She has also made some positive changes at home though still undergoing some stress. She joined a yoga class and also a meditation class so she hopes those will also help reduce the frequency and severity of her SVT episodes even more than now. Overall patient is encouraged about where she is with her heart health. She will call team nurse weekly as needed for updates and any support. Praveena Vega RNlaser beam machine operator [facility] General Team-[place] documented in this encounter Plan of Treatment Upcoming Encounters Date Type Department Care Team (Latest Contact Info) Description 12/25/2023 9:[address] Scan at [place] [phone] Xavier Malhotra MD [facility] [place] [address] 12/29/2023 Hospital Encounter Electrophysiology Lab at [address] Xavier Malhotra MD [facility] [place] [address] Paroxysmal atrial fibrillation 12/29/2023 7:30 AM EDT - 12/29/2023 12:00 PM EDT Surgery [place] [address] Xavier Malhotra MD [facility] [place] [address] ELECTROPHYSIOLOGY PROCEDURE 01/14/2024 10:40 AM EDT Office Visit Cardiology at [address] Carmen Castaneda PA [facility] [place] [address] Scheduled Procedures Name Priority Associated Diagnoses Date/Ti [...] on filedocumented in this encounter Care Teams Fish Packer Relationship Specialty Start Date End Date Evelyne Hunt APRN [address] [place] [address] PCP - General Internal Medicine 09/23/17 documented as of this encounter
--- OUTSIDE RECORDS SUMMARY | 2023-12-01 02:14 | XMS_ITS | Encounter Summary ---
Author Organization [facility] [place] [address] Care Team Providers Care Terrazzo Helper Name Role Phone Evelyne Hunt Dat STEVEN Primary Care Provider [phone] Encounter Details Date Type Department Care Team (Late st Contact Info) Description 08/02/2020 External Results [place] [address] Tri Milian V, RN Social History Tobacco Use Types Packs/Day [...] 9:[address] [place] [address] Xavier Malhotra MD [facility] [place] [address] 12/29/2023 Hospital Encounter [place] [address] Xavier Malhotra MD [facility] [place] [address] Paroxysmal atrial fibrillation 12/29/2023 7:30 AM EDT - 12/29/2023 12:00 PM EDT Surgery [place] [phone] Xavier Malhotra MD [facility] [place] [address] ELECTROPHYSIOLOGY PROCEDURE 01/14/2024 10:40 AM EDT Office Visit Cardiology at [address] [phone] Carmen Castaneda PA [facility] [place] [address] Scheduled Procedures Name Priority Associated Diagnoses Date/Ti me TRANSESOPHAGEAL ECHO DURING CATH/EP PROCEDURE Paroxysmal atrial fibrillation 12/29/2023 7:30 AM EDT documented as of this encounter Goals Goal Patient Goal Type Associated Problems Recent Progress Patient-Stated? Author [facility] Medication Compliance and Understanding Patient Facing Action Plan Lani Love, [facility] Note: Maintain control of disease for as long as possible as assessed by tumor marker levels and scans in clinic every 3 to 6 months documented as of this encounter Procedures Procedure Name Priority Date/Time Associated Diagnosis Comments CBC (WITH DIFF) Routine 07/31/2020 12:30 PM EDT COMPREHENSIVE METABOLIC PANEL Routine 07/31/2020 12:30 PM EDT documented in this encounter Results * Comprehensive metabolic panel (non-fasting) (07/31/2020 12:30 PM EDT) Glucose 128 EXTERNAL LAB Blood Urea Nitrogen 13 EXTERNAL LAB Creatinine 0.8 EXTERNAL LAB Est Glomerular Filtration Rate >60.00 EXTERNAL LAB Sodium 138 EXTERNAL LAB Potassium 3.8 EXTERNAL LAB Chloride 101 EXTERNAL LAB Carbon Dioxide 27 EXTERNAL LAB Calcium 10.0 EXTERNAL LAB Protein, Total 7.6 EXTERNAL LAB Albumin 4.3 EXTERNAL LAB Bilirubin, Total 0.8 EXTERNAL LAB Anion Gap 10 EXTERNAL LAB Alkaline Phosphatase 95 EXTERNAL LA B Aspartate Aminotransferase 18 EXTERNAL LAB Alanine Aminotransferase 28 EXTERNAL LAB CA 125 pending EXTERNAL LAB Blood 07/31/2020 12:3 0 PM EDT Natalie Vallejo MD CHEMISTRY ORDERABLES EXTERNAL LAB * (ABNORMAL) CBC (with Diff) (07/31/2020 12:30 PM EDT) White Blood Cell 5.80 EXTERNAL LAB Red Blood Cell 3.36(L) EXTERNAL LAB Hemoglobin 12.8 EXTERNAL LAB Hematocrit 35.8(L) EXTERNAL LAB Mean Cell Volume 106.5(H) EXTERNAL LAB Mean Cell Hemoglobin 38.1(H) EXTERNAL LAB Mean Cell Hemoglobin Concentration 35.8 EXTERNAL LAB RDW coefficient of variation 12.0 EXTERNAL LAB Platelet 207 EXTERNAL LAB Mean Platelet Volume 8.9 EXTERNAL LAB Neutrophil % 60.6 EXTERNAL LAB Lymph % 25.0 EXTERNAL LAB Monocyte % 9.1 EXTERNAL LAB Eosinophil Manual 3.8 EXTERNAL LAB Basophil % 1.2 EXTERNAL LAB Immature Gran % 0.3 EXTERNAL LAB ANC 3.51 EXTERNAL LAB Lymph Absolute Manual 1.45 EXTERNAL LAB Monocyte Abs 0.53 EXTERNAL LAB Eos Absolute Manual 0.22 EXTERNAL LAB Baso Absolute Manual 0.07 EXTERNAL LAB Blood 07/31/2020 12:3 0 PM EDT Natalie Vallejo MD HEMATOLOGY ORDERABLE S EXTERNAL LAB documented in this encounter Visit Diagnoses Not on filedocumented in this encounter Care Teams Terrazzo Helper Relationship Specialty Start Date End Date Evelyne Hunt, PROGRAM COORDINATOR [address] [place] [address] PCP - General Internal Medicine 09/23/17 documented as of this encounter
--- OUTSIDE RECORDS SUMMARY | 2023-12-01 02:14 | XMS_ITS | Encounter Summary ---
Author Organization [facility] [place] [address] Care Team Providers Care Box Repairer Name Role Phone Evelyne Hunt APRN Primary Care Provider [phone] Reason for Visit * Reason Onset Date Comments Results 06/06/2020 Encounter Details Date Type Department Care Team (Late st Contact Info) Description 06/06/2020 Telephone [place] [phone] Jaqueline Doran, RN Results Social History Tobacco [...] Telephone Encounter - Jaqueline Doran RN - 06/06/2020 3:46 PM EST Called to inform that all her labs are fine. Ca 125 is 6. She's happy with this. Recent Results (from the past 72 hour(s)) CBC / CMP / Thyroid External Results Result Value Ref Range WBC 8.03 RBC 3.44 Hemoglobin 12.7 Hematocrit 36.8 Platelets 201 Sodium 137 Potassium 3.8 Chloride 103 CO2 26 BUN 19 Creatinine 0.7 Glucose Lvl 110 Calcium 9.2 Total Protein 7.3 Albumin 3.9 Total Bilirubin 1.0 Alk Phos 96 AST 21 ALT 30 Neutr Abs (ANC) 5.38 CA 125 6 documented in this encounter Plan of Treatment Upcoming Encounters Date Type Department Care Team (Latest Contact Info) Description 12/25/2023 9:[address] Scan at [place] [phone] Xavier Malhotra MD [facility] [place] [address] 12/29/2023 Hospital Encounter [place] [address] Xavier Malhotra MD [facility] [place] [address] Paroxysmal atrial fibrillation 12/29/2023 7:30 AM EDT - 12/29/2023 12:00 PM EDT Surgery Electrophysiology Lab at [address] Xavier Malhotra MD [facility] [place] [address] ELECTROPHYSIOLOGY PROCEDURE 01/14/2024 10:40 AM EDT Office Visit Cardiology at [address] Carmen Castaneda PA [facility] [place] [address] Scheduled Procedures Name Priority Associated Diagnoses Date/Ti me TRANSESOPHAGEAL ECHO DURING CATH/EP PROCEDURE Paroxysmal atrial fibrillation 12/29/2023 7:30 AM EDT documented as of this encounter Goals Goal Patient Goal Type Associated Problems Recent Progress Patient-Stated? Author [facility] Medication Compliance and Understanding Patient Facing Action Plan Lani Love, [facility] Note: Maintain control of disease for as long as possible as assessed by tumor marker levels and scans in clinic every 3 to 6 months documented as of this encounter Visit Diagnoses Not on filedocumented in this encounter Care Teams Box Repairer Relationship Specialty Start Date End Date Evelyne Hunt APRN [address] [place] [address] PCP - General Internal Medicine 09/23/17 documented as of this encounter
--- OUTSIDE RECORDS SUMMARY | 2023-12-01 02:14 | XMS_ITS | Encounter Summary ---
Author Organization [facility] Address [facility] [place] [address] Care Team Providers Care Dog Behaviorist Name Role Phone Evelyne Hunt APRN Primary Care Provider [phone] Reason for Referral * Diagnostic Test (Routine) - Closed Specialty Diagnoses / Procedures Referred By Yanelisac t Referred To Contact Cardiology Diagnoses Palpitations Procedures Ziopatch 48 Hrs-15 Days Franklyn Younger PA [facility] [place] [address] [facility] [place] [address] Referral ID Status Reason Start Date Expiration Date V isits Requested Visits Authorized [id number] Closed Specialty Service Requested 08/08/2020 11/07/2020 1 1 Reason for Visit * Auth/Cert Specialty Diagnoses [...] Expiration Date Visits Re quested Visits Authorized [id number] 1 1 Encounter Details Date Type Department Care Team (Latest Contact Info) Description 08/08/2020 6:19 AM EDT - 08/08/2020 4:12 PM EDT Hospital Encounter Same Day Program [place] [facility] [place] [address] Andrey Esqueda MD [facility] [place] [address] SVT (supraventricular tachycardia); Palpitations Discharge Disposition: Home Social History Tobacco Use [...] Sign Reading Time Taken Comments Blood Pressure 134/92 08/08/2020 3:30 PM EDT Pulse 96 08/08/2020 3:30 PM EDT Temperature 36.8 ??C (98.2 ??F) 08/08/2020 1 1:19 AM EDT Respiratory Rate 16 08/08/2020 3:30 PM EDT Oxygen Saturation 99% 08/08/2020 3:30 PM EDT Inhaled Oxygen Concentration - - [...] by your doctor, do not take any ukrg-jxw-cxcaygl medicinesor herbal preparations without first discussing this with your doctor or pharmacist. There is the possibility of side effects and interactions when these are combined. Follow Up Care Who to call with questions or problems If there are any questions or problems that you think might be related to your cardiac cath or angioplasty, contact the cut and print machine operator migration agent by calling [facility] at . documented in this encounter Medications [...] escorted out of department via wheelchair with GOVERNMENT SERVICE EXECUTIVE. documented in this encounter H&P Notes * Andrey Esqueda MD - 08/08/2020 7:43 AM EDT Cardiac Electrophysiology Procedure [place] August 08, 2020 Reason for Procedure: Rapid [...] to the clinic note dated July 26 ([facility]) Allergies & Sensitivities: Paroxetine, Penicillins, Sertraline, Venlafaxine, and Taxol [paclitaxel] Medications: Diltiaem and metoprolol (held) Social History: , accompanied by her . Is followed by muffler tender. Smoking: Quit previously Alcohol: No Interval Review [...] Comprehensive Electrophysiology Evaluation Indication: Recurrent supraventricular tachycardia Community Affairs Manager: Andrey Esqueda MD Procedure: After discussion with [...] cuff) Signal data was stored digitally using Amanda WorkMate in Laboratory 4, and the stimulator utilizedwas the Aveso EP-4 system (atypically high local capture thresholds noted when using either channel 1 or 2). Baseline Assessment: 1) Baseline rhythm was sinus rhythm with mean ventricular cycle length 770 ms: PA: 150 ms AH: 60 ms HV: 50 ms QRS: 90 ms QT: 390 ms 2) Atrial overdrive pacing was accomplished from a bipole of the decapolar catheter within the coronary sinus, and the atrioventricular (AV) Wenckebach block cycle length (CL) was observed at 360 ms.There was no pre-excitation or conduction aberrancy identified. The wvoqjnpl-vw-FSP was slightly longer than the QRS-QRS interval just prior to the observed AV Wenckebach block CL, and no echo beats were elicited. 3) Atrial extrastimulus testing was accomplished using an atrial drive train of CL 500 ms; the atrial effective refractory period (ERP) was noted at an S2 coupling interval of 290 ms (atrial tsqhkudu12 mA @ 2 ms), and the AV [...] 9:[address] Scan at [place] [phone] Xavier Malhotra MD [facility] [place] [address] 12/29/2023 Hospital Encounter [place] [address] Xavier Malhotra MD [facility] [place] [address] Paroxysmal atrial fibrillation 12/29/2023 7:30 AM EDT - 12/29/2023 12:00 PM EDT Surgery [place] [address] Xavier Malhotra MD [facility] [place] [address] ELECTROPHYSIOLOGY PROCEDURE 01/14/2024 10:40 AM EDT Office Visit Cardiology at [place] [phone] Carmen Castaneda PA [facility] [place] [address] Scheduled Procedures Name Priority Associated Diagnoses Date/Ti me TRANSESOPHAGEAL ECHO DURING CATH/EP PROCEDURE Paroxysmal atrial fibrillation 12/29/2023 7:30 AM EDT documented as of this encounter Goals Goal Patient Goal Type Associated Problems Recent Progress Patient-Stated? Author DH Home Medication Compliance and Understanding Patient Facing Action Plan Lani Love, [facility] ED [...] EDT SVT (supraventricular tachycardia) RAPID COVID-19 PCR ([facility]) Routine 08/08/2020 7:48 AM EDT BMP W/FASTING [...] Modality Other Narrative 09/04/2020 7:[address] [facility] ? Zio Patch? Ambulatory Cardiac Event [...] SARS-CoV-2 RNA (Rapid) Not Detected Not Detected [facility] Comment: This result should be [...] using the Simplexa COVID-19 Direct Assay by [employer] as authorized by the FDA issued Emergency [...] Department of Pathology and Laboratory Medicine at [facility], certified under the Clinical Laboratory Improvement Amendments [...] fact sheets at the following FDA website: https://www.fda.gov/medical-devices/zdokxjrqduj-agcauae-7935-qyjza-58-eyuensybg- use-a pudbimmheataf-ebtmoax-hurnrck/encjr-hzlokmzopwa-owqk SARS-CoV-2 Source SPRINKLER WORKER Swab [facility] Nasopharyngeal swab (specimen) 08/08/2020 7:48 AM EDT 08/08/2020 8:26 AM EDT Comment:Symptoms->Surveillan ce Narrative Resulting Agency Comment Spec In Lab Alvarez Barnard MD MICROBIOLOGY - GENER AL ORDER[place] [address] * Scan, Peripheral Blood (08/08/2020 7:15 AM EDT) Plat estimate Normal [facility] RBC Morphology Abnormal [facility] Macrocyte 1-5 /HPF [facility] Blood specimen (specimen) 08/08/2020 7:15 AM EDT 08/08/2020 7:27 AM EDT Narrative Resulting Agency Comment Spec In Lab Dwain Gibson MD [place] [address] * Differential, Automated (08/08/2020 7:15 AM EDT) Pathologist [facility] Neutrophil % 57.4 % [facility] Neutrophil Absolute 2.64 1.70 - 6.10 x10(3)/[facility] Lymph % 27.0 % [facility] Lymphocytes Abs 1.2 0.9 - 3.2 x10(3)/[facility] Monocyte % 10.2 % [facility] Monocyte Abs 0.5 0.3 - 0.9 x10(3)/[facility] Eos % 4.1 % [facility] Eosinophils Abs 0.2 0.0 - 0.4 x10(3)/[facility] Basophil % 1.1 % [facility] Baso Absolute 0.0 0.0 - 0.1 x10(3)/[facility] Immature Gran % 0.20 % [facility] Comment: Immature granulocytes(IG's)percentage and absolute count will include metamyelocytes, myelocytes, and promyelocytes. Blood smears from CBCs yielding IG's will be scanned manually for concordance. If this scan disagrees with the automated IG or if promyelocytes are noted, a manual differential will be performed. Immature Gran Absolute 0.01 0.00 - 0.04 x10(3)/[facility] Blood specimen (specimen) 08/08/2020 7:15 AM EDT 08/08/2020 7:27 AM EDT Narrative Resulting Agency Comment Spec In Lab Dwain Gibson MD HEMATOLOGY ORDERABLE S [facility] [place] [address] * (ABNORMAL) Hemogram (08/08/2020 7:15 AM EDT) White Blood Cell 4.6 4.0 - 9.5 x10(3)/[facility] Red Blood Cell 3.47(L) 4.00 - 5.21 x10(6)/[facility] Hemoglobin 13.0 11.7 - 15.5 gm/dL [facility] Hematocrit 37.0 35.7 - 45.8 % [facility] Mean Cell Volume 106.6(H) 82.6 - 94.4 fL [facility] Mean Cell Hemoglobin 37.5(H) 27.1 - 32.0 pg [facility] Mean Cell Hemoglobin Concentration 35.1(H) 31.7 - 35.0 gm/dL [facility] Platelet 164 145 - 357 x10(3)/[facility] RDW Standard Deviation 48.2(H) 37.0 - 46.0 [facility] RDW coefficient of variation 12.3 11.5 - 14.1 % [facility] Mean Platelet Volume 9.0 7.6 - 12.9 [facility] NRBC% auto 0.0 % [facility] NRBC Absolute 0.000 0.000 - 0.000 x10(3)/ L [facility] Blood specimen (specimen) 08/08/2020 7:15 AM EDT 08/08/2020 7:27 AM EDT Narrative Resulting Agency Comment Spec In Lab Dwain Gibson MD HEMATOLOGY ORDERABLE S Performing Organization Address [facility] Co de Phone Number [facility] [place] [address] * Prothrombin Time (08/08/2020 7:15 AM EDT) Prothrombin Time 11.5 9.4 - 12.5 sec [facility] International Normalization Ratio 1.0 [facility] Comment: An INR <2.0 indicates [...] Lab Dwain Gibson MD HEMATOLOGY ORDERABLE S Performing Organization Address [facility] Co de Phone Number [facility] [place] [address] * BMP w/fasting Glucose (08/08/2020 7:15 AM EDT) Glucose Fasting 91 65 - 99 mg/dL [facility] Comment: ?Fasting* Glucose Interpretive Criteria [...] of Diabetes Mellitus, Position Statement from the [place] [employer]. ??Diabetes Care, Volume 33, Supplement 1, Apr 2009 Blood Urea Nitrogen 14 8 - 18 mg/dL [facility] Creatinine 0.81 0.70 - 1.20 mg/dL [facility] Sodium 141 135 - 145 mmol/L [facility] Potassium 4.5 3.5 - 5.0 mmol/L [facility] Comment: Please note: ??Patients with WBC >100,000 may have falsely elevated Potassium levels. ??For accurate Potassium quantification in these patients send serum separator tube (gold top) for subsequent determinations. ??Contact the Clinical Chemistry Laboratory if there are any questions. Chloride 105 98 - 107 mmol/L [facility] Carbon Dioxide 25 22 - 31 mmol/L [facility] Anion Gap 11 5 - 15 mmol/L [facility] Calcium 9.9 8.5 - 10.5 mg/dL [facility] Est Glomerular Filtration Rate 79 >=60 mL/min/1. 73 m?? [facility] Comment: This patient? s estimated [...] In Lab Dwain Gibson MD CHEMISTRY ORDERABLES [facility] [place] [address] documented in this encounter Visit Diagnoses Diagnosis [...] (30 mL), Subcutaneous, ONCE, 1 dose, On 08/08/20 at 0915, EP (Intra-Procedure), Routine Given 08/08/2020 8:57 AM EDT 150 mg lidocaine (Xylocaine) (20 mg/mL) 2% injection 400 mg 400 mg (20 mL), Subcutaneous, ONCE, 1 dose, On 08/08/20 at 0915, EP (Intra-Procedure), Routine Given 08/08/2020 8:57 AM EDT 400 mg documented in this encounter Active and Recently Administered Medications Times are shown in EDT. Scheduled Medication Order 08/06/2020 08/07/2020 08/08/2020 BUpivacaine (pf) (Marcaine) (5 mg/mL) 0.5% injection 150 mg (COMPLETED) 150 mg (30 mL), Subcutaneous, ONCE, 1 dose, On 08/08/20 at 0915, EP (Intra-Procedure), Routine 0857 (Given - Provid er: Jose Lopez RN) lidocaine (Xylocaine) (20 mg/mL) 2% injection 400 mg (COMPLETED) 400 mg (20 mL), Subcutaneous, ONCE, 1 dose, On 08/08/20 at 0915, EP (Intra-Procedure), Routine 0857 (Given - Provid er: Jose Lopez RN) documented in this encounter Care Teams Dog Behaviorist Relationship Specialty Start Date End Date Evelyne Hunt APRN [address] [place] [address] PCP - General Internal Medicine 09/23/17 documented as of this encounter
--- OUTSIDE RECORDS SUMMARY | 2023-12-01 02:14 | XMS_ITS | Encounter Summary ---
[place] [address] Care Team Providers Care Hot Metal Mixer Operator Helper Name Role Phone Evelyne Hunt APRN Primary Care Provider [phone] Reason for Visit * Reason Onset Date Comments Pre Procedure Call 08/01/2020 Encounter Details Date Type Department Care Team (Late st Contact Info) Description 08/01/2020 Telephone Cardiology at [address] [phone] Edyta Mchugh, RN Pre Procedure Call Social History Tobacco Use Types [...] Telephone Encounter - Edyta Mchugh RN - 08/01/2020 10:58 AM EDTSummary: Pre Procedure Call: SVT ablation EP PUBLIC RELATIONS STUDIES DIRECTOR COORDINATION CHECKLIST\ Patient Name: Gabi Luna Patient Initials: PS Date Scheduled: 08/08/20 Arrival Time/ Case Time: 6:30 am / 7:30 am Date Patient was Called: 08/01/20 Procedure: SVT ablation Orders: Y Anesthesia: GA Med Instructions: BB/CCB - hold metoprolol & diltiazem for 48 hrs prior to procedure (no doses beginning 08/06/20) Anticoag Type: N/A Imaging: N/A COVID TEST?: Yes - provided number to COVID hotline Contrast Allergy: N/A ABX allergy:PENICILLINS - ANAPHYLAXIS DM: No Coming from an assisted living facility?: No Any recent S/S of infection (fevers, on oral ABX)?: No Other Instructions: NPO after midnight on day of procedure, AM medications w/ small sips of water, Same Day will call 08/07/20. Will be staying overnight, understands that they will need emt driver on day of discharge Notified pt that Durham catheter may be placed on day of procedure depending on type & duration of case. documented in this encounter Plan of Treatment Upcoming Encounters Date Type Department Care Team (Latest Contact Info) Description 12/25/2023 9:[address] [place] [phone] Xavier Malhotra MD [facility] [place] [address] 12/29/2023 Hospital Encounter Electrophysiology Lab at [place] [phone] Xavier Malhotra MD [facility] [place] [address] Paroxysmal atrial fibrillation 12/29/2023 7:30 AM EDT - 12/29/2023 12:00 PM EDT Surgery [place] [phone] Xavier Malhotra MD [facility] [place] [address] ELECTROPHYSIOLOGY PROCEDURE 01/14/2024 10:40 AM EDT Office Visit Cardiology at [address] [phone] Carmen Castaneda PA [facility] [place] [address] Scheduled Procedures Name Priority Associated Diagnoses Date/Ti [...] on filedocumented in this encounter Care Teams Hot Metal Mixer Operator Helper Relationship Specialty Start Date End Date Evelyne Hunt APRN [address] [place] [address] PCP - General Internal Medicine 09/23/17 documented as of this encounter
--- OUTSIDE RECORDS SUMMARY | 2023-12-01 02:14 | XMS_ITS | Encounter Summary ---
Author Organization [facility] [place] [address] Care Team Providers Care Assistant Technician Name Role Phone Evelyne Hunt TENISHA Primary Care Provider [phone] Reason for Visit * Reason Onset Date Comments Medication Refill 05/19/2020 Encounter Details Date Type Department Care Team (Late st Contact Info) Description 05/19/2020 Refill Cardiology at [address] [phone] Franklyn Toure MD [facility] [place] [address] Medication Refill Social History Tobacco Use Types [...] 9:[address] [place] [address] Xavier Malhotra MD [facility] [place] [address] 12/29/2023 Hospital Encounter Electrophysiology [place] [address] Xavier Malhotra MD [facility] [address] [place] [address] Paroxysmal atrial fibrillation 12/29/2023 7:30 AM EDT - 12/29/2023 12:00 PM EDT Surgery Electrophysiology [place] [phone] Xavier Malhotra MD [facility] [place] [address] ELECTROPHYSIOLOGY PROCEDURE 01/14/2024 10:40 AM EDT Office Visit Cardiology at [address] [phone] Carmen Castaneda PA [facility] [place] [address] Scheduled Procedures Name Priority Associated Diagnoses Date/Ti [...] (supraventricular tachycardia)- Primary Other specified cardiac dysrhythmias Paroxysmal atrial fibrillation Atrial fibrillation Paroxysmal atrial fibrillation Atrial fibrillation documented in this encounter Care Teams Assistant Technician Relationship Specialty Start Date End Date Evelyne Hunt APRN [address] [place] [address] PCP - General Internal Medicine 09/23/17 documented as of this encounter
--- OUTSIDE RECORDS SUMMARY | 2023-12-01 02:14 | XMS_ITS | Encounter Summary ---
Author Organization [facility] Address [facility] [place] [address] Care Team Providers Care Customer Insight Analyst Name Role Phone Evelyne Hunt APRN Primary Care Provider [phone] Encounter Details Date Type Department Care Team (Latest Contact Info) Description 06/15/2020 8:00 AM EST TH Visit (TeleHealth) Gy[place] [phone] Natalie Vallejo MD [facility] [place] [address] Ovarian cancer, unspecified laterality; Drug-induced constipation Social History Tobacco Use Types Packs/Day Years [...] - Inhaled Oxygen Concentration - - Weight 59 kg (130 lb) 06/12/2020 1:39 PM EST Height 164.4 cm (5' 4.72) 06/12/2020 1:39 PM ES T Body Mass Index 21.82 06/12/2020 1:39 PM EST documented in this encounter Progress Notes * Mehreen VilaKHOA - 06/15/2020 8:00 AM EST ____ Patient not reached _X__Patient reached and the following information was reviewed/obtained per protocol. _X__Confirmed patient name and date of _X__Confirmed tele med appt (Virtual visit) is downloaded and functioning _X__Confirmed location of patient- TeleVisit is taking place in [place]_ [place]__[place]__ [place]__ If not on myDH, working on signing up for my DH Confirmed has completed any pre-visit questionnaires If has not received required previsit questionnaires, send via [facility] _X__Reviewed medications, allergies, pharmacy, pain/depression, education _X__Documented height/weight/LMP Other information or concerns: Received both COVID vaccines * Natalie Vallejo MD - 06/15/2020 8:00 AM EST 8:18- 8:39 Gynecologic Oncology-Telehealth Encounter. ?? Reason/purpose for telehealth [...] than she has in years. Her only issue is with some constipation which is easily resolved with miralax. She has a daily BM with the miralax but hard pellet stools without it. Her appetite is good and she has gained back her weight. She does not have nausea or fatigue or other symptoms and overall is feeling quite well. she is seeing an coat examiner for her neuropathy. She is back to work and very busy. She has had both of her Pfizer COVID vaccines. Her cardiac med adjustment has been very good and she is feeling much better. She is out xc skiing a lot and feels great. Her CA125 is reportedly 6 most recently. Results for MARK WALLER ( ) as of 06/15/2020 08:19 Ref. Range 06/05/2020 00:00 WBC Unknown 8.03 RBC Unknown 3.44 Hemoglobin Unknown 12.7 Hematocrit Unknown 36.8 Platelets Unknown 201 Neutr Abs (ANC) Unknown 5.38 Sodium Unknown 137 Potassium Unknown 3.8 Chloride Unknown 103 CO2 Unknown 26 BUN Unknown 19 Creatinine Unknown 0.7 Calcium Unknown 9.2 Glucose Lvl Unknown 110 Total Protein Unknown 7.3 Albumin Unknown 3.9 Total Bilirubin Unknown 1.0 Alk Phos Unknown 96 AST Unknown 21 ALT Unknown 30 CA 125 Unknown 6 I spent a total of 21 minutes on this visit,including time with the patient and pre-/post-visit planning for the management of ovarian cancer maintenance. ?? Items to Complete - (To-Do List): 1. Tolerating PARP well. Continue at 100 mg at night. 2. Constipation: Continue miralax as it is working well. 3. adjust [facility] labs to every 6 weeks. 4. followup via telehealth in 6 weeks after labs are resulted documented in this encounter Plan of Treatment Upcoming Encounters Date Type Department Care Team (Latest Contact Info) Description 12/25/2023 9:[address] [place] [phone] Xavier Malhotra MD [facility] [place] [address] 12/29/2023 Hospital Encounter Electrophys[place] [phone] Xavier Malhotra MD [facility] [place] [address] Paroxysmal atrial fibrillation 12/29/2023 7:30 AM EDT - 12/29/2023 12:00 PM EDT Surgery [place] [phone] Xavier Malhotra MD [facility] [place] [address] ELECTROPHYSIOLOGY PROCEDURE 01/14/2024 10:40 AM EDT Office Visit Cardiology at [address] [phone] Carmen Castaneda PA [facility] [place] [address] Scheduled Procedures Name Priority Associated Diagnoses Date/Ti me TRANSESOPHAGEAL ECHO DURING CATH/EP PROCEDURE Paroxysmal atrial fibrillation 12/29/2023 7:30 AM EDT documented as of this encounter Goals Goal Patient Goal Type Associated Problems Recent Progress Patient-Stated? Author [facility] Medication Compliance and Understanding Patient Facing Action Plan No Lani Vargas, [facility] Note: Maintain control of disease for as long as possible as assessed by tumor marker levels and scans in clinic every 3 to 6 months documented as of this encounter Visit Diagnoses Diagnosis Ovarian cancer, unspecified laterality Drug-induced constipation Other constipation Paroxysmal atrial fibrillation Atrial fibrillation Paroxysmal atrial fibrillation Atrial fibrillation documented in this encounter Care Teams Customer Insight Analyst Relationship Specialty Start Date End Date Evelyne Hunt APRN [address] [place] [address] PCP - General Internal Medicine 09/23/17 documented as of this encounter
--- OUTSIDE RECORDS SUMMARY | 2023-12-01 02:14 | XMS_ITS | Encounter Summary ---
[place] [address] Care Team Providers Care Loan Processing Supervisor Name Role Phone Kiki Huntyce Dat STEVEN Primary Care Provider [phone] Encounter Details Date Type Department Care Team (Late Contact Info) Description 07/31/2020 Telephone [place] [phone] Doreen Nielson Social History Tobacco Use Types Packs/Day Years [...] encounter Miscellaneous Notes * Telephone Encounter - Doreen Nielson - 07/31/2020 4:27 PM EDTSummary: EP Procedure Jail Guard Checklist - 08/08 EP Procedure Jail Guard Patient Coordination Checklist DATE CALLED: 07/31 DATE OF PROCEDURE: 08/08 0630/0730 PERFORMING MD: KALEIGH PROCEDURE TYPE: SVT [employer]BLATION COMPANY: [employer] ANESTHESIA TYPE: GA IMAGING NEEDED: N/A DATES OF SCHEDULED IMAGING: N/A ORDERS: Y ANTICOAG TYPE: N/A MANAGED BY (IF ON WARFARIN): N/A FACILITY NAME - N/A MD - N/A CONTACT INFO - N/A DATE OF INR PRIOR TO PROCEDURE: N/A DISCHARGE STATUS: OVERNIGHT documented in this encounter Plan of Treatment Upcoming Encounters Date Type Department Care Team (Latest Contact Info) Description 12/25/2023 9:[address] Scan at [place] [phone] Xavier Malhotra MD [facility] [place] [address] 12/29/2023 Hospital Encounter [place] [address] Xavier Malhotra MD [facility] [place] [address] Paroxysmal atrial fibrillation 12/29/2023 7:30 AM EDT - 12/29/2023 12:00 PM EDT Surgery [place] [phone] Xavier Malhotra MD [facility] [place] [address] ELECTROPHYSIOLOGY PROCEDURE 01/14/2024 10:40 AM EDT Office Visit Cardiology at [address] [phone] Carmen Castaneda PA [facility] [place] [address] Scheduled Procedures Name Priority Associated Diagnoses Date/Ti me TRANSESOPHAGEAL ECHO DURING CATH/EP PROCEDURE Paroxysmal atrial fibrillation 12/29/2023 7:30 AM EDT documented as of this encounter Goals Goal Patient Goal Type Associated Problems Recent Progress Patient-Stated? Author [facility] Medication Compliance and Understanding Patient Facing Action Plan Lani Love, [facility] Note: Maintain control of disease for as long as possible as assessed by tumor marker levels and scans in clinic every 3 to 6 months documented as of this encounter Visit Diagnoses Not on filedocumented in this encounter Care Teams Loan Processing Supervisor Relationship Specialty Start Date End Date Evelyne Hunt APRN [address] [place] [address] PCP - General Internal Medicine 09/23/17 documented as of this encounter
--- OUTSIDE RECORDS SUMMARY | 2023-12-01 02:14 | XMS_ITS | Encounter Summary ---
Author Organization [facility] [place] [address] Care Team Providers Care Nuclear Pharmacist Name Role Phone Evelyne Hunt Dat STEVEN Primary Care Provider [phone] Encounter Details Date Type Department Care Team (Late st Contact Info) Description 04/20/2020 External Results Gynecology Oncology at [place] [phone] Jaqueline Doran, RN Social History Tobacco Use [...] 9:[address] [place] [address] Xavier Malhotra MD [facility] [place] [address] 12/29/2023 Hospital Encounter [place] [address] Xavier Malhotra MD [facility] [place] [address] Paroxysmal atrial fibrillation 12/29/2023 7:30 AM EDT - 12/29/2023 12:00 PM EDT Surgery [place] [phone] Xavier Malhotra MD [facility] [place] [address] ELECTROPHYSIOLOGY PROCEDURE 01/14/2024 10:40 AM EDT Office Visit Cardiology at [address] [phone] Carmen Castaneda PA [facility] CARDIOLOGY [place], [place] [phone] Scheduled Procedures Name Priority Associated Diagnoses Date/Ti me TRANSESOPHAGEAL ECHO DURING CATH/EP PROCEDURE Paroxysmal atrial fibrillation 12/29/2023 7:30 AM EDT documented as of this encounter Goals Goal Patient Goal Type Associated Problems Recent Progress Patient-Stated? Author [facility] Medication Compliance and Understanding Patient Facing Action Plan Lani Love, [facility] Note: Maintain control of disease for as long as possible as assessed by tumor marker levels and scans in clinic every 3 to 6 months documented as of this encounter Procedures Procedure Name Priority Date/Time Associated Diagnosis Comments EXTERNAL LAB CBC CMP THYROID RESULTS PANEL Routine 04/20/2020 CANCER ANTIGEN 125 Routine 04/18/2020 documented in this encounter Results * CBC / CMP / Thyroid External Results (04/20/2020) Naatlie Vallejo MD EXTERNAL LAB ORDERAB LES * Cancer Antigen 125 (04/18/2020) CA 125 6 Blood specimen (specimen) 04/18/2020 Natalie Vallejo MD CHEMISTRY ORDERABLES documented in this encounter Visit Diagnoses Not on filedocumented in this encounter Care Teams Nuclear Pharmacist Relationship Specialty Start Date End Date Evelyne Hunt APRN [address] [place] [address] PCP - General Internal Medicine 09/23/17 documented as of this encounter
--- OUTSIDE RECORDS SUMMARY | 2023-12-01 02:14 | XMS_ITS | Encounter Summary ---
Author Organization [facility] [place] [address] Care Team Providers Care Clinical Staff Rn Name Role Phone Kiki Huntyce Dat STEVEN Primary Care Provider [phone] Encounter Details Date Type Department Care Team (Late st Contact Info) Description 04/24/2020 Telephone Cardiology at [address] [phone] Praveena Petty, RN Social History Tobacco Use [...] Telephone Encounter - Praveena Petty RN - 04/24/2020 9:49 AM EST Patient was called regarding F/U message where she spoke to Dr. Roger on 04/22/20. Patient states she had tried the increased break through dosing as he suggested but it didn't really seem to help. She became teary over the phone and stated she is very frustrated at her sx. She says she stayed inside all weekend on the couch not feeling like she could do anything. She says she didn't want to say anything at the last call but she admits to being under a lot of extra stress around the holidays due to a personal issue ( she did not want to elaborate) but she feels that now that the issue has been taken care of.But she still has ongoing sx. Patient agrees to try the increased daily dose of Dilt at 240mg per Dr. Toure's message. A new prescription will be called in and she will try this starting tomorrow and call team nurse in one weekor sooner if needed with an update. For any ongoing or worsening sx patient agrees to make an appointment for more detailed approach to management. Praveena Vega RNdata entry assistant [facility] General Team-Ottoniel documented in this encounter Plan of Treatment Upcoming Encounters Date Type Department Care Team (Latest Contact Info) Description 12/25/2023 9:[address] Scan at [place] [phone] Xavier Malhotra MD [facility] [place] [address] 12/29/2023 Hospital Encounter Electrophysiology Lab at [place] [phone] Xavier Malhotra MD [facility] [place] [address] Paroxysmal atrial fibrillation 12/29/2023 7:30 AM EDT - 12/29/2023 12:00 PM EDT Surgery Electrophysiology Lab at [place] [phone] Xavier Malhotra MD [facility] [place] [address] ELECTROPHYSIOLOGY PROCEDURE 01/14/2024 10:40 AM EDT Office Visit Cardiology at [place] [phone] Carmen Castaneda PA [facility] [place] [address] Scheduled Procedures Name Priority Associated Diagnoses Date/Ti [...] on filedocumented in this encounter Care Teams Clinical Staff Rn Relationship Specialty Start Date End Date Evelyne Hunt APRN [address] [place] [address] PCP - General Internal Medicine 09/23/17 documented as of this encounter
--- OUTSIDE RECORDS SUMMARY | 2023-12-01 02:14 | XMS_ITS | Encounter Summary ---
Author Organization [facility] [place] [address] Care Team Providers Care Valance Cutter Name Role Phone Evelyne Hunt TENISHA Primary Care Provider [phone] Reason for Visit * Reason Onset Date Comments Medication Refill 05/05/2020 Medication Refill 05/08/2020 Encounter Details Date Type Department Care Team (Late st Contact Info) Description 05/05/2020 Refill [place] [phone] Natalie Vallejo MD [facility] [place] [address] Ovarian cancer, lateral, stage IIIb high-grade serous/endometrioid, 07/20/2019 s/p FREDI/BSO/oment/PPALND/RSR eanstomosis Social History Tobacco Use Types Packs/Day Years [...] 9:[address] [place] [phone] Xavier Malhotra MD [facility] [place] [address] 12/29/2023 Hospital Encounter Electrophysiology Lab at [place] [phone] Xavier Malhotra MD [facility] [place] [address] Paroxysmal atrial fibrillation 12/29/2023 7:30 AM EDT - 12/29/2023 12:00 PM EDT Surgery Electrophysiology Lab at [place] [phone] Xavier Malhotra MD [facility] [place] [address] ELECTROPHYSIOLOGY PROCEDURE 01/14/2024 10:40 AM EDT Office Visit Cardiology at [address] [phone] Carmen Castaneda PA [facility] [place] [address] Scheduled Procedures Name Priority Associated Diagnoses Date/Ti [...] fibrillation documented in this encounter Care Teams Valance Cutter Relationship Specialty Start Date End Date Evelyne Hunt APRN [address] [place] [address] PCP - General Internal Medicine 09/23/17 documented as of this encounter
--- OUTSIDE RECORDS SUMMARY | 2023-12-01 02:14 | XMS_ITS | Encounter Summary ---
Author Organization [facility] [place] [address] Care Team Providers Care Automotive Sales Professional Name Role Phone Kiki Huntyce Dat STEVEN Primary Care Provider [phone] Encounter Details Date Type Department Care Team (Late st Contact Info) Description 05/05/2020 Orders [place] [address] Lani Vargas, [facility] Social History Tobacco Use Types [...] 9:[address] [place] [address] Xavier Malhotra MD [facility] [place] [address] 12/29/2023 Hospital Encounter [place] [address] Xavier Malhotra MD [facility] [place] [address] Paroxysmal atrial fibrillation 12/29/2023 7:30 AM EDT - 12/29/2023 12:00 PM EDT Surgery [place] [phone] Xavier Malhotra MD [facility] [place] [address] ELECTROPHYSIOLOGY PROCEDURE 01/14/2024 10:40 AM EDT Office Visit Cardiology at [address] [phone] Carmen Castaneda PA [facility] [place] [address] Scheduled Procedures Name Priority Associated Diagnoses Date/Ti me TRANSESOPHAGEAL ECHO DURING CATH/EP PROCEDURE Paroxysmal atrial fibrillation 12/29/2023 7:30 AM EDT documented as of this encounter Goals Goal Patient Goal Type Associated Problems Recent Progress Patient-Stated? Author [facility] Medication Compliance and Understanding Patient Facing Action Plan No Lani Vargas, [facility] Note: Maintain control of disease for as long as possible as assessed by tumor marker levels and scans in clinic every 3 to 6 months documented as of this encounter Visit Diagnoses Not on filedocumented in this encounter Care Teams Automotive Sales Professional Relationship Specialty Start Date End Date Evelyne Hunt APRN [address] [place] [address] PCP - General Internal Medicine 09/23/17 documented as of this encounter
--- OUTSIDE RECORDS SUMMARY | 2023-12-01 02:14 | XMS_ITS | Encounter Summary ---
Author Organization [facility] Address [facility] [place] [address] Care Team Providers Care Senior Ios Software Engineer Name Role Phone Evelyne Hunt Dat STEVEN Primary Care Provider [phone] Encounter Details Date Type Department Care Team (Late st Contact Info) Description 04/22/2020 Telephone Cardiology at [address] [phone] Hang Roger MD [facility] [place] [address] Social History Tobacco Use Types Packs/Day Years [...] encounter Miscellaneous Notes * Telephone Encounter - Hang Roger MD - 04/22/2020 10:26 AM EST Called by patient for concerns of increased episodes of SVT. She had called the clinic a few days ago and was instructed to take additional dose of diltiazem. She is wondering how much diltiazem she can take. I recommended the patient can take diltiazem 30mg every 6 hours if her symptoms are still not controlled. She is a patient of Dr. Toure and there was a possibility of increasing her metoprolol but I will have her call the clinic to discuss this. In the meantime she is not have any symptoms but ifshe were to be symptomatic (CP, SOB) then I recommended the patient seek medical attention. documented in this encounter Plan of Treatment Upcoming Encounters Date Type Department Care Team (Latest Contact Info) Description 12/25/2023 9:[address] Scan at [place] [phone] Xavier Malhotra MD [facility] [place] [address] 12/29/2023 Hospital Encounter Elect[place] [address] Xavier Malhotra MD [facility] [place] [address] Paroxysmal atrial fibrillation 12/29/2023 7:30 AM EDT - 12/29/2023 12:00 PM EDT Surgery Electrophysiology Lab at [address]1000 Xavier Malhotra MD [facility] [place] [address] ELECTROPHYSIOLOGY PROCEDURE 01/14/2024 10:40 AM EDT Office Visit Cardiology at [place] [phone] Carmen Castaneda PA [facility] [place] [address] Scheduled Procedures Name Priority Associated Diagnoses Date/Ti me TRANSESOPHAGEAL ECHO DURING CATH/EP PROCEDURE Paroxysmal atrial fibrillation 12/29/2023 7:30 AM EDT documented as of this encounter Goals Goal Patient Goal Type Associated Problems Recent Progress Patient-Stated? Author [facility] Medication Compliance and Understanding Patient Facing Action Plan Lani Love, [facility] Note: Maintain control of disease for as long as possible as assessed by tumor marker levels and scans in clinic every 3 to 6 months documented as of this encounter Visit Diagnoses Not on filedocumented in this encounter Care Teams Senior Ios Software Engineer Relationship Specialty Start Date End Date Evelyne Hunt APRN [address] [place] [address] PCP - General Internal Medicine 09/23/17 documented as of this encounter
--- OUTSIDE RECORDS SUMMARY | 2023-12-01 02:14 | XMS_ITS | Encounter Summary ---
Author Organization [facility] [place] [address] Care Team Providers Care Associate Professor Name Role Phone Evelyne Hunt Dat STEVEN Primary Care Provider [phone] Encounter Details Date Type Department Care Team (Late st Contact Info) Description 05/12/2020 External Results [place] [address] Jaqueline Doran, RN Social History [...] 9:[address] [place] [address] Xavier Malhotra MD [facility] [place] [address] 12/29/2023 Hospital Encounter [place] [address] Xavier Malhotra MD [facility] [place] [address] Paroxysmal atrial fibrillation 12/29/2023 7:30 AM EDT - 12/29/2023 12:00 PM EDT Surgery [place] [phone] Xavier Malhotra MD [facility] [place] [address] ELECTROPHYSIOLOGY PROCEDURE 01/14/2024 10:40 AM EDT Office Visit Cardiology at [address] [phone] Carmen Castaneda PA [facility] CARDIOLOGY [place], [place] [phone] Scheduled Procedures Name Priority Associated Diagnoses Date/Ti me TRANSESOPHAGEAL ECHO DURING CATH/EP PROCEDURE Paroxysmal atrial fibrillation 12/29/2023 7:30 AM EDT documented as of this encounter Goals Goal Patient Goal Type Associated Problems Recent Progress Patient-Stated? Author [facility] Medication Compliance and Understanding Patient Facing Action Plan No Lani Vargas, [facility] Note: Maintain control of disease for as long as possible as assessed by tumor marker levels and scans in clinic every 3 to 6 months documented as of this encounter Procedures Procedure Name Priority Date/Time Associated Diagnosis Comments EXTERNAL LAB CBC CMP THYROID RESULTS PANEL Routine 05/08/2020 EXTERNAL LAB CBC CMP THYROID RESULTS PANEL Routine 05/08/2020 documented in this encounter Results * CBC / CMP / Thyroid External Results (05/08/2020) Natalie Vallejo MD EXTERNAL LAB ORDERAB LES * CBC / CMP / Thyroid External Results (05/08/2020) White Blood Cell 6.63 Hemoglobin 3.4 Hematocrit 12.7 Platelet 187 Sodium 138 Potassium 3.7 Chloride 103 Carbon Dioxide 28 Blood Urea Nitrogen 18 Creatinine 0.80 Glucose 91 Calcium 9.3 Protein, Total 7.4 Albumin 4.0 Bilirubin, Total 0.8 Alkaline Phosphatase 87 Aspartate Aminotransferase 18 Alanine Aminotransferase 28 ANC 4.26 CA 125 6 05/08/2020 Natalie Vallejo MD EXTERNAL LAB ORDERAB LES documented in this encounter Visit Diagnoses Not on filedocumented in this encounter Care Teams Associate Professor Relationship Specialty Start Date End Date Evelyne Hunt APRN [address] [place] [address] PCP - General Internal Medicine 09/23/17 documented as of this encounter
--- OUTSIDE RECORDS SUMMARY | 2023-12-01 02:14 | XMS_ITS | Encounter Summary ---
Author Organization [facility] [place] [address] Care Team Providers Care Director Revenue Name Role Phone Kiki Huntyce Dat STEVEN Primary Care Provider [phone] Reason for Visit * Reason Comments Medication Refill Encounter Details Date Type Department Care Team (Late st Contact Info) Description 07/11/2020 Specialty [place] [phone] Lizz Jones [facility] Social History [...] Progress Notes * Lizz Jones RPH - 07/11/2020 9:12 AM EDT Clinical Management Plan: Refill Specialty [...] complete drug. Medication Reconciliation Discrepancies (compared to [facility] med list) No Specialty Pharmacy Refill Questionnaire Refill Questionnaire 07/11/2020 What is the name of the specialty medication you are refilling? Zejula Are you taking any new medications? No Any new medical condition? No Any new allergies? No Any new side effects that are bothersome? No Adherence: Any missed doses? No Patient understands no changes to current drug regimen were made.. Lizz Jones RPH 07/11/20 9:14 AM documented in this encounter Plan of Treatment Upcoming Encounters Date Type Department Care Team (Latest Contact Info) Description 12/25/2023 9:[address] [place] [address] Xavier Malhotra MD [facility] [place] [address] 12/29/2023 Hospital Encounter [place] [address] Xavier Malhotra MD [facility] [place] [address] Paroxysmal atrial fibrillation 12/29/2023 7:30 AM EDT - 12/29/2023 12:00 PM EDT Surgery [place] [phone] Xavier Malhotra MD [facility] [place] [address] ELECTROPHYSIOLOGY PROCEDURE 01/14/2024 10:40 AM EDT Office Visit Cardiology at [address] [address] Carmen Castaneda PA [facility] [place] [address] Scheduled Procedures Name Priority Associated Diagnoses Date/Ti wv TRANSESOPHAGEAL ECHO DURING CATH/EP PROCEDURE Paroxysmal atrial [...] filedocumented in this encounter Care Teams Director Revenue Relationship Specialty Start Date End Date Evelyne Hunt APRN [address] [facility] [place] [address] PCP - General Internal Medicine 09/23/17 documented as of this encounter
--- OUTSIDE RECORDS SUMMARY | 2023-12-01 02:14 | XMS_ITS | Encounter Summary ---
Author Organization [facility] Address [facility] [place] [address] Care Team Providers Care Coat Maker Name Role Phone Kiki Huntyce Dat STEVEN Primary Care Provider [phone] Reason for Visit * Auth/Cert Specialty Diagnoses [...] Expiration Date Visits Re quested Visits Authorized [id number] 1 1 Encounter Details Date Type Department Care Team (Late st Contact Info) Description 08/08/2020 7:58 AM EDT Anesthesia Event [place] [address] Alvarez Barnard MD [facility] [place] [address] Anesthesia Record Procedure Summary Procedure Name Responsible Anesthesiologist Anesthesia Start Time Anesthesia Stop Time ELECTROPHYSIOLOGY PROCEDURE Alvarez Barnard MD 08/08/20 0758 08/08/20 1116 Events Date Time Event Comment 08/08/2020 0718 0758 AN Verify 0758 Start 0758 An Start Data 0808 Anesthesia Ready 0943 Break/Relief In I assumed ca re for Break Relief before which we: 1. Identified the patient 2. Identified the responsible provider(s) 3. Reviewed the pertinent medical history 4. Discussed the surgical plan and course 5. Reviewed intra-op anesthesia management and issues during anesthesia 6. Set expectations for the relief (and/or post-procedure) period 7. Allowed opportunity for questions and acknowledgement of understanding Shani Hollis CRNA 1004 Break/Relief Out 1111 an stop data 1115 Recovery or ICU Handoff Lorena ent care was transferred to the destination unit staff after review of the patient's medical history, current anesthetic/surgical status and plan, according to the Provider Handoff Checklist. 1116 Stop Meds Name Total Midazolam 2 mg fentaNYL 75 mcg Propofol 180 mg Propofol INF 1,017 mg PHENYLephrine 160 mcg PHENYLephrine INF 240 mcg Dexmedetomidine 4 mcg DOBUTamine INF 20.76 mg Lactated Ringers 1,300 mL * Agents Name O2 Air N2O O2 Auxiliary Flowmeter 1 * Blood No blood administrations on file. Lines, Drains, and Airways Type Details Placement Removal Incision 07/20/19; 0829; abdo men; vertical; 12/17/21 (LDA cleanup utility RA#[id number]); 1715 (LDA cleanup utility RA#[id number]) 07/20/19 0829 by Vee Abbott RN 12/17/21 1715 by Keila Arceo Incision 08/20/19; 0946; neck ; non-laparascopic puncture; Mediport insertion site ; 12/17/21 (LDA cleanup utility RA#[id number]); 1715 (LDA cleanup utility RA#[id number]) 08/20/19 0946 by Catherine Estrada RN 12/17/21 1715 by Keila Arceo Incision 08/20/19; 0948; ches t; horizontal, non-laparascopic puncture; Mediport pocket site ; 12/17/21 (LDA cleanup utility RA#[id number]); 1715 (LDA cleanup utility RA#[id number]) 08/20/19 0948 by Catherine Estrada, RN 12/17/21 1715 by Keila Arceo (RETIRED) Implanted Port - Single Lumen (non-apheresis) 08/20/19; 0952; infraclavicular fossa, right; power injectable port; superior vena cava; Jourdan SEARS; [address] Port Lot # [id number]; 10/04/20; 1422 08/20/19 0952 by Catherine sEtrada RN 10/04/20 1422 by Gertrude Whitlock RN Arterial Line 08/08/20; 0803; radi al artery; 20 gauge; Anatomical Landmarks; md; Sterile Prep, Sterile Gloves; 08/08/20; 1555 08/08/20 0803 by Kate Deleon, CIVIL ENGINEERING PROFESSIONAL 08/08/20 1555 by Amy Molina RN (RETIRED) Peripheral IV Line - Single Lumen 08/08/20; 0805; metacarpal vein (top of hand), left; [id number] catheter system; Anatomical Landmarks; 18 gauge; md; 08/08/20; 1554 08/08/20 0805 by Kate Deleon, CIVIL ENGINEERING PROFESSIONAL 08/08/20 1554 by Amy Molina RN LDA Cath/EP Sheath 08/08/20; 0900; 8 Fr ench (Fr); Right; Femoral; Venous 08/08/20 0900 by Jose Lopez RN 08/08/20 1055 by Jose Lopez RN LDA Cath/EP Sheath 08/08/20; 0900; 6.5 Belarusian (Fr); Right; Femoral; Venous 08/08/20 0900 by Jose Lopez RN 08/08/20 1055 by Jose Lopez RN LDA Cath/EP Sheath 08/08/20; 0900; 7 Fr ench (Fr); Right; Femoral; Venous 08/08/20 0900 by Jose Lopez RN 08/08/20 1055 by Jose Lopez RN LDA Cath/EP Sheath 08/08/20; 0909; 8 Fr ench (Fr); Right; Internal jugular; Venous 08/08/20 0909 by Jose Lopez RN 08/08/20 1055 by Jose Lopez RN documented in this encounter Social History [...] OR Notes * Anesthesia Postprocedure Evaluation - Alvarez Barnard MD - 08/08/2020 1:39 PM EDT Department of Anesthesiology Post-procedure Note Patient: Gabi Luna Procedure Summary Date: 08/08/20 Room / Location: [facility] B-LAB ROOM 4 / [facility] Anesthesia Start: 8 Anesthesia Stop: 1115 Procedure: ELECTROPHYSIOLOGY PROCEDURE (N/A ) Diagnosis: SVT (supraventricular tachycardia) (SVT (supraventricular tachycardia) [I47.1]) Providers: Andrey Esqueda MD Responsible Provider: Alvarez Barnard MD Anesthesia Type: MAC ASA Status: 3 All Anesthesia Providers: Anesthesiologist: Alvarez Barnard MD CIVIL ENGINEERING PROFESSIONAL: Kate Deleon CRNA Vitals Value Taken Time BP 142/115 08/08/20 1330 Temp 36.8 ??C (98.2 ??F) 08/08/20 1119 Pulse 90 08/08/20 1338 Resp 12 08/08/20 1338 SpO2 97 % 08/08/20 1338 Pain Level 0 08/08/20 1230 Vitals shown include unvalidated device data. Patient Location: PACU[facility] Level of Consciousness: Awake and Alert Pain Management: Satisfactory Analgesia PONV: None Cardiovascular Status: Hemodynamically Stable and At Baseline Respiratory Status: At Baseline and Room Air Postoperative Fluid Status: Intravascular EUvolemia Possible Anesthetic Complications: NONE apparent at time of evaluation Final Primary Anesthesia Type: MAC (The anesthetic type performed was the same as planned.) Comments: * Anesthesia Preprocedure Evaluation - Alvarez Barnard MD - 08/08/2020 7:16 AM EDT Pre-Anesthesia Evaluation for: Gabi Luna a 59 y.o. female. Procedure(s): ELECTROPHYSIOLOGY PROCEDURE Patient Active Problem List Diagnosis ??? SVT (supraventricular tachycardia) ??? BRCA negative no germline (heritable) mutation was [...] BRCA2 (sequencing only). ? Ovarian cancer, lateral, stage IIIb high-grade serous/endometrioid, 07/20/2019 s/p FREDI/BSO/oment/PPALND/RSReanstomosis ??? HTN (hypertension) ??? Aortic valve stenosis ??? Chest pain ??? Bicuspid aortic valve ??? Hypothyroidism Past Medical History: Diagnosis Date ??? Allergic [...] IR Mediport Placement 08/20/2019 Jourdan Lopez PA [facility] INTERVENTIONL RAD ??? PRO GINA SALP-OOPH W/OMENTECT, FREDI, RAD DISSECT N/A 07/20/2019 @HYSTERECTOMY, FREDI, BSO, DEBULKING (WRVU 34.13) performed by Natalie Vallejo MD at [facility] MAIN OR Social History Tobacco Use ??? Smoking status: Former Smoker Quit date: 07/12/1977 Years since quittin.1 ??? Smokeless tobacco: Never Used Substance Use Topics ??? Alcohol use: Never Comment: rare Social History Substance and Sexual Activity Drug Use Not Currently Allergies Allergen Reactions ??? Paroxetine ??? Penicillins [...] Physical Exam: Preprocedure Vitals Current as of 08/08/20 0716 BP: 144/87 Pulse: 85 Resp: 16 SpO2: 99 Temp: 36.5 ??C (97.7 ??F) Height: 166.4 cm (5' 5.5) (08/08/20) Weight: 59.3 kg (130 lb 12.8 oz) (08/08/20) BMI: 21.43 IBW: 58.2 kg (128 lb 4.1 oz) Last edited 08/08/20 0637 by DM Airway Assessment: Mallampati: II TM distance: >3 FB Neck ROM: full Cardiovascular Assessment: Rhythm: regular Pulmonary Assessment: unlabored breathing Dental Assessment: - normal exam Misc Assessment: IV access: Central line Last Filed Perioperative Cognitive Screening None Anesthesia Plan: ASA 3 MAC, with a(n) intravenous induction 59 y/o woman with a PMH of moderate to severe , septal hypertrophy with LVOT obstruction and JERRY,HTN, HLD, ovarian cancer s/p FREDI and debulking/chemo, SVT now for ablation. Tolerated GA in the past. NPO. Plan for MAC with GA backup. Arterial line, port access with additional PIV. Region - Intrathoracic Cardiac Informed Consent: Anesthetic plan and risks discussed with patient and spouse. Plan discussed with CIVIL ENGINEERING PROFESSIONAL. PAT Clinic Note documented in this encounter Plan of Treatment Upcoming Encounters Date Type Department Care Team (Latest Contact Info) Description 12/25/2023 9:[address] [place] [address] Xavier Malhotra MD [facility] [place] [address] 12/29/2023 Hospital Encounter [place] [phone] Xavier Malhotra MD [facility] [place] [address] Paroxysmal atrial fibrillation 12/29/2023 7:30 AM EDT - 12/29/2023 12:00 PM EDT Surgery [place] [phone] Xavier Malhotra MD [facility] [place] [address] ELECTROPHYSIOLOGY PROCEDURE 01/14/2024 10:40 AM EDT Office Visit Cardiology at [address] [phone] Carmen Castaneda PA [facility] [place] [address] Scheduled Procedures Name Priority Associated Diagnoses Date/Ti me TRANSESOPHAGEAL ECHO DURING CATH/EP PROCEDURE Paroxysmal atrial fibrillation 12/29/2023 7:30 AM EDT documented as of this encounter Goals Goal Patient Goal Type Associated Problems Recent Progress Patient-Stated? Author [facility] Medication Compliance and Understanding Patient [...] MAR Action Action Date Dose Rate Site dexmedetomidine (Precedex) (4 mcg/mL) bolus injection (Anesthsia) Intravenous, PRN, Starting on Fri08/08/20 at 0934, Until Fri08/08/20 at 1339, Anesthesia Intra-op, Routine Given 08/08/2020 9:34 AM EDT 4 mcg DOBUTamine (Dobutrex) (2,000 mcg/mL) in dextrose 5% 250 mL infusion Intravenous, CONTINUOUS PRN, Starting on Fri08/08/20 at 0958, Until Fri08/08/20 at 1339, Anesthesia Intra-op Rate/Dose Change 08/08/2020 10:09 AM EDT 20 mcg/kg/min 35.58 mL/hr New Bag 08/08/2020 9:58 AM EDT 10 mcg/kg/min 17.79 mL/h r fentaNYL (pf) (50 mcg/mL) multi-dose injection Intravenous, PRN, Starting on Fri08/08/20 at 0804, Until Fri08/08/20 at 1339, Anesthesia Intra-op, Routine Given 08/08/2020 10:23 AM EDT 25 mcg Given 08/08/2020 9:32 AM EDT 25 mcg Given 08/08/2020 8:04 AM EDT 25 mcg lactated ringers infusion Intravenous, CONTINUOUS PRN, Starting on Fri08/08/20 at 0730, Until Fri08/08/20 at 1339, Anesthesia Intra-op New Bag 08/08/2020 9:42 AM EDT New Bag 08/08/2020 7:30 AM EDT midazolam (pf) (Versed) (1 mg/mL) multi-dose injection Intravenous, PRN, Starting on Fri08/08/20 at 0758, Until Fri08/08/20 at 1339, Anesthesia Intra-op, Routine Given 08/08/2020 7:58 AM EDT 2 mg PHENYLephrine (Nahum-Synephrine) (80 mcg/mL) in sodium chloride 0.9% 250 mL infusion Intravenous, CONTINUOUS PRN, Starting on Fri08/08/20 at 0903, Until Fri08/08/20 at 1339, Anesthesia Intra-op, Routine Rate/Dose Change 08/08/2020 9:14 AM EDT 10 mcg/min 7.5 mL/hr New Bag 08/08/2020 9:03 AM EDT 20 mcg/min 15 mL/hr PHENYLephrine in NS (PF) (NAHUM-SYNEPHRINE) 0.8 mg/10 mL (80 mcg/mL) multi-dose injection Syrg Intravenous, PRN, Starting on Fri08/08/20 at 0849, Until Fri08/08/20 at 1339, Anesthesia Intra-op, Routine Given 08/08/2020 8:58 AM EDT 80 mcg Given 08/08/2020 8:52 AM EDT 40 mcg Given 08/08/2020 8:49 AM EDT 40 mcg propofoL (Diprivan) 10 mg/mL bolus injection (Anesthesia) Intravenous, PRN, Starting on Fri08/08/20 at 0802, Until Fri08/08/20 at 1339, Anesthesia Intra-op Given 08/08/2020 10:23 AM EDT 20 mg Given 08/08/2020 10:16 AM EDT 50 mg Given 08/08/2020 9:32 AM EDT 30 mg propofoL (Diprivan) infusion Intravenous, CONTINUOUS PRN, Starting on Fri08/08/20 at 0804, Until Fri08/08/20 at 1339, Anesthesia Intra-op, Routine Rate/Dose Change 08/08/2020 10:26 AM EDT 150 mcg/kg/min 53.37 mL/hr Rate/Dose Change 08/08/2020 10:17 AM EDT 125 mcg/kg/min 44 .475 mL/hr Rate/Dose Change 08/08/2020 8:58 AM EDT 75 mcg/kg/min 26.6 85 mL/hr documented in this encounter Care Teams Coat Maker Relationship Specialty Start Date End Date Evelyne Hunt, MEND WORKER [address] [place] [address] PCP - General Internal Medicine 09/23/17 documented as of this encounter
--- OUTSIDE RECORDS SUMMARY | 2023-12-01 02:14 | XMS_ITS | Encounter Summary ---
Author Organization [facility] Address [facility] [place] [address] Care Team Providers Care Metal Annealer Name Role Phone Evelyne Hunt TENISHA Primary Care Provider Encounter Details Date Type Department Care Team (Late st Contact Info) Description 04/24/2020 Orders Only Cardiology at [address] [phone] Franklyn Toure MD [facility] [place] [address] SVT (supraventricular tachycardia) (Primary Dx) Social History Tobacco Use Types [...] 9:[address] [place] [address] Xavier Malhotra MD [facility] [place] [address] 12/29/2023 Hospital Encounter [place] [address] Xavier Malhotra MD [facility] [place] [address] Paroxysmal atrial fibrillation 12/29/2023 7:30 AM EDT - 12/29/2023 12:00 PM EDT Surgery [place] [phone] Xavier Malhotra MD [facility] [place] [address] ELECTROPHYSIOLOGY PROCEDURE 01/14/2024 10:40 AM EDT Office Visit Cardiology at [address] [phone] Carmen Castaneda PA [facility] [place] [address] Scheduled Procedures Name Priority Associated Diagnoses Date/Ti [...] documented in this encounter Care Teams Metal Annealer Relationship Specialty Start Date End Date Evelyne Hunt APRN [address] [place] [id number] PCP - General Internal Medicine 09/23/17 documented as of this encounter
--- OUTSIDE RECORDS SUMMARY | 2023-12-01 02:15 | XMS_ITS | Encounter Summary ---
Author Organization [facility] [place] [address] Care Team Providers Care Anatomic Pathologist Name Role Phone Marilee, Evelyne Daugherty APRN Primary Care Provider [phone] Encounter Details Date Type Department Care Team (Late st Contact Info) Description 02/21/2020 Telephone Cardiology at [address] [phone] Praveena Petty RN Social History Tobacco Use [...] Telephone Encounter - Praveena Petty RN - 02/21/2020 10:28 AM EST Patient called to report that she has not been feeling well since she was seen on 02/01/20. Last OVnote reviewed. Patient states she was started on Metoprolol Succ. 50mg daily for SVT episodes and while she thinksshe worked through the tiredness side effect it may have been giving her over the past several weeks, she says she is now so exhausted she can barely do anything after she gets home from work. She says she works about 20 hours weekly and she is in remission from ovarian cancer, having recently completed chemo. She says she isn't currently taking Zejula but she may be put back on it by her oncologist so she asked that it not be removed from her med list. Patient states she also feels SOB with activity and she also doesn't think the Metoprolol is reallystopping her SVT episodes well so she wonders if she is exhausted from her heart racing along. Patient admits she has no appetite but has made a point of drinking a lot of water since she was advised to. Patient does say she sleeps well. She also will have this electric shock like sensation down her left arm to her hand,like a gaona/tingling sensation but it only lasts seconds. She denies any fever, chills, CP or other sx. She is not checking her BP at home. She says her PLT's have been low recently even though they were higher during her chemo she says. She says her PCP is aware to some degree of what has been going on but she is not sure what to do now. Praveena Vega RNdramatic coach Cardiovascular Clinic General Team-Harned documented in this encounter Plan of Treatment Upcoming Encounters Date Type Department Care Team (Latest Contact Info) Description 12/25/2023 9:[address] [place] [phone] Xavier Malhotra MD [facility] [place] [address] 12/29/2023 Hospital Encounter [place] [address] Xavier Malhotra MD [facility] [place] [address] Paroxysmal atrial fibrillation 12/29/2023 7:30 AM EDT - 12/29/2023 12:00 PM EDT Surgery [place] [phone] Xavier Malhotra MD [facility] [place] [address] ELECTROPHYSIOLOGY PROCEDURE 01/14/2024 10:40 AM EDT Office Visit Cardiology at [address] [phone] Carmen Castaneda PA [facility] [place] [address] Scheduled Procedures Name Priority Associated Diagnoses Date/Ti me TRANSESOPHAGEAL ECHO DURING CATH/EP PROCEDURE Paroxysmal atrial fibrillation 12/29/2023 7:30 AM EDT documented as of this encounter Goals Goal Patient Goal Type Associated Problems Recent Progress Patient-Stated? Author [facility] Medication Compliance and Understanding Patient Facing Action Plan Lani Love, [facility] Note: Maintain control of disease for as long as possible as assessed by tumor marker levels and scans in clinic every 3 to 6 months documented as of this encounter Visit Diagnoses Not on filedocumented in this encounter Care Teams Anatomic Pathologist Relationship Specialty Start Date End Date Evelyne Hunt APRN [address] [place] [address] PCP - General Internal Medicine 09/23/17 documented as of this encounter
--- OUTSIDE RECORDS SUMMARY | 2023-12-01 02:15 | XMS_ITS | Encounter Summary ---
Author Organization [facility] Address [facility] [place] [address] Care Team Providers Care Fishery Biologist Name Role Phone Evelyne Hunt Dat STEVEN Primary Care Provider [phone] Encounter Details Date Type Department Care Team (Late st Contact Info) Description 02/23/2020 Telephone Gyne[place] [phone] Amrit Ram MD [facility] [place] [address] Social History Tobacco Use Types Packs/Day Years [...] encounter Miscellaneous Notes * Telephone Encounter - Amrit Ram MD - 02/23/2020 5:25 PM EST I was called by a local emergency room provider to discuss this patient. She presented with some shortness of breath. Hemogram showed hemoglobin approximately 8, but due to shortness of breath, a CT was performed to exclude a DVT, which was indeed excluded. Follow-up hemoglobin was 7.2. The patientwas given 1 unit of packed red blood cells. The provider wanted to make sure that we had follow-up plan for this patient, as her platelets havedecreased to approximately 25,000, but there is no concern for active ongoing bleeding. I reviewed that a suspect that she has some pancytopenia related to current therapy, which is beingheld, and that additional laboratory study follow-ups will be obtained. documented in this encounter Plan of Treatment Upcoming Encounters Date Type Department Care Team (Latest Contact Info) Description 12/25/2023 9:[address] Scan at [place] [phone] Xavier Malhotra MD [facility] [place] [address] 12/29/2023 Hospital Encounter Electrophysiology Lab at [place] [phone] Xavier Malhotra MD [facility] [place] [place] [address] Paroxysmal atrial fibrillation 12/29/2023 7:30 AM EDT - 12/29/2023 12:00 PM EDT Surgery Electrophysiology Lab at [place] [phone] Xavier Malhotra MD [facility] [place] [address] ELECTROPHYSIOLOGY PROCEDURE 01/14/2024 10:40 AM EDT Office Visit Cardiology at [address] [phone] Carmen Castaneda PA [facility] [place] [address] Scheduled Procedures Name Priority Associated Diagnoses Date/Ti me TRANSESOPHAGEAL ECHO DURING CATH/EP PROCEDURE Paroxysmal atrial fibrillation 12/29/2023 7:30 AM EDT documented as of this encounter Goals Goal Patient Goal Type Associated Problems Recent Progress Patient-Stated? Author [facility] Medication Compliance and Understanding Patient Facing Action Plan No Lani Vargas, [facility] Note: Maintain control of disease for as long as possible as assessed by tumor marker levels and scans in clinic every 3 to 6 months documented as of this encounter Visit Diagnoses Not on filedocumented in this encounter Care Teams Fishery Biologist Relationship Specialty Start Date End Date Evelyne Hunt APRN [address] [place] [address] PCP - General Internal Medicine 09/23/17 documented as of this encounter
--- OUTSIDE RECORDS SUMMARY | 2023-12-01 02:15 | XMS_ITS | Encounter Summary ---
Author Organization [facility] [place] [address] Care Team Providers Care Economic Development Director Name Role Phone Evelyne Hunt APRN Primary Care Provider [phone] Reason for Visit * Reason Onset Date Comments Results 03/13/2020 Encounter Details Date Type Department Care Team (Late Contact Info) Description 03/13/2020 Telephone Hematology [place] [phone] Mary Mclain, RN Results Social History Tobacco Use Types [...] encounter Miscellaneous Notes * Telephone Encounter - Mary Mclain RN - 03/13/2020 3:28 PM EST Message left with the following satisfactory labs. Recent Results (from the past 72 hour(s)) CBC (with Diff) Result Value Ref Range WBC 8.06 (External Lab) Hemoglobin 11.0 (ExtL) Hematocrit 32.5 (ExtL) Platelets 275 (External Lab) Neutrophils % 74.3 (External Lab) Neutr Abs (ANC) 5,980 (External Lab) documented in this encounter Plan of Treatment Upcoming Encounters Date Type Department Care Team (Latest Contact Info) Description 12/25/2023 9:[address] Scan at [place] [address] Xavier Malhotra MD [facility] [place] [address] 12/29/2023 Hospital Encounter [place] [address] Xavier Malhotra MD [facility] [place] [address] Paroxysmal atrial fibrillation 12/29/2023 7:30 AM EDT - 12/29/2023 12:00 PM EDT Surgery [place] [address] Xavier Malhotra MD [facility] [place] [address] ELECTROPHYSIOLOGY PROCEDURE 01/14/2024 10:40 AM EDT Office Visit Cardiology at [place] [phone] Carmen Castaneda PA [facility] [place] [address] Scheduled Procedures Name Priority Associated Diagnoses Date/Ti [...] on filedocumented in this encounter Care Teams Economic Development Director Relationship Specialty Start Date End Date Evelyne Hunt APRN [address] [place] [address] PCP - General Internal Medicine 09/23/17 documented as of this encounter
--- OUTSIDE RECORDS SUMMARY | 2023-12-01 02:15 | XMS_ITS | Encounter Summary ---
Author Organization [facility] [place] [address] Care Team Providers Care Insulation Batting Machine Operator Name Role Phone Evelyne Hunt APRN Primary Care Provider [phone] Encounter Details Date Type Department Care Team (Late st Contact Info) Description 02/07/2020 Telephone Obstetrics [place] [phone] Ludy Valero RN Social History Tobacco Use Types Packs/Day [...] Miscellaneous Notes * Telephone Encounter - Ludy Valero RN - 02/07/2020 4:09 PM EDT Patient reports having a BM and feels so much better. Will continue with bowel meds and will up themiralax to BID until regular. * Telephone Encounter - Ludy Valero RN - 02/07/2020 4:09 PM EDT ----- Message from Janelle Camejo sent at 02/07/2020 12:04 PM EDT ----- Patient called wanted to speak with you again, said you would know what its about.Also mentioned that she is going to get her blood work done tomorrow instead Janelle documented in this encounter Plan of Treatment Upcoming Encounters Date Type Department Care Team (Latest Contact Info) Description 12/25/2023 9:[address] [place] [address] Xavier Malhotra MD [facility] [place] [address] 12/29/2023 Hospital Encounter [place] [address] Xavier Malhotra MD [facility] [place] [address] Paroxysmal atrial fibrillation 12/29/2023 7:30 AM EDT - 12/29/2023 12:00 PM EDT Surgery Electrophysiology Lab at [address] Xavier Malhotra MD [facility] [place] [address] ELECTROPHYSIOLOGY PROCEDURE 01/14/2024 10:40 AM EDT Office Visit Cardiology at [place] [phone] Carmen Castaneda PA [facility] [place] [address] Scheduled Procedures Name Priority Associated Diagnoses Date/Ti me TRANSESOPHAGEAL ECHO DURING CATH/EP PROCEDURE Paroxysmal atrial fibrillation 12/29/2023 7:30 AM EDT documented as of this encounter Goals Goal Patient Goal Type Associated Problems Recent Progress Patient-Stated? Author DH Home Medication Compliance and Understanding Patient Facing Action Plan Lani Love, [facility] Note: Maintain control of disease for as long as possible as assessed by tumor marker levels and scans in clinic every 3 to 6 months documented as of this encounter Visit Diagnoses Not on filedocumented in this encounter Care Teams Insulation Batting Machine Operator Relationship Specialty Start Date End Date Evelyne Hunt APRN [address] [place] [address] PCP - General Internal Medicine 09/23/17 documented as of this encounter
--- OUTSIDE RECORDS SUMMARY | 2023-12-01 02:15 | XMS_ITS | Encounter Summary ---
Author Organization [facility] [place] [address] Care Team Providers Care Paper Roller Name Role Phone Evelyne Hunt APRN Primary Care Provider [phone] Reason for Visit * Reason Onset Date Comments Results 03/27/2020 Encounter Details Date Type Department Care Team (Late st Contact Info) Description 03/27/2020 Telephone Hematology [place] [phone] Mary Mclain, RN Results Social History Tobacco [...] Telephone Encounter - Mary Mclain RN - 03/27/2020 2:30 PM EST Relayed following satisfactory results to pt. Recent Results (from the past 72 hour(s)) CBC / CMP / Thyroid External Results Result Value Ref Range WBC 6.63 (External Lab) Hemoglobin 11.8 (External Lab) Hematocrit 35.3 (ExtL) Platelets 165 (External Lab) Sodium 134 (ExtL) Potassium 4.1 (External Lab) Chloride 101 (External Lab) CO2 28 (External Lab) BUN 16 (External Lab) Creatinine 0.81 (External Lab) Calcium 9.5 (External Lab) Total Protein 7.6 (External Lab) Albumin 4.1 (External Lab) Total Bilirubin 0.9 (External Lab) Alk Phos 79 (External Lab) AST 18 (External Lab) ALT 25 (External Lab) Neutrophil % 67 (External Lab) Neutrophil Abs 4,440 (External Lab) documented in this encounter Plan of Treatment Upcoming Encounters Date Type Department Care Team (Latest Contact Info) Description 12/25/2023 9:[address] Scan at [place] [phone] Xavier Malhotra MD [facility] [place] [address] 12/29/2023 Hospital Encounter Electrophysiology Lab at [place] [phone] Xavier Malhotra MD [facility] [place] [address] Paroxysmal atrial fibrillation 12/29/2023 7:30 AM EDT - 12/29/2023 12:00 PM EDT Surgery Electrophysiology Lab at [place] [phone] Xavier Malhotra MD [facility] [place] [address] ELECTROPHYSIOLOGY PROCEDURE 01/14/2024 10:40 AM EDT Office Visit Cardiology at [address] [phone] Carmen Castaneda PA [facility] [place] [address] Scheduled Procedures Name Priority Associated Diagnoses Date/Ti me TRANSESOPHAGEAL ECHO DURING CATH/EP PROCEDURE Paroxysmal atrial fibrillation 12/29/2023 7:30 AM EDT documented as of this encounter Goals Goal Patient Goal Type Associated Problems Recent Progress Patient-Stated? Author DH Home Medication Compliance and Understanding Patient Facing Action Plan No Lani Vargas, [facility] Note: Maintain control of disease for as long as possible as assessed by tumor marker levels and scans in clinic every 3 to 6 months documented as of this encounter Visit Diagnoses Not on filedocumented in this encounter Care Teams Paper Roller Relationship Specialty Start Date End Date Evelyne Hunt APRN [address] [place] [address] PCP - General Internal Medicine 09/23/17 documented as of this encounter
--- OUTSIDE RECORDS SUMMARY | 2023-12-01 02:15 | XMS_ITS | Encounter Summary ---
Author Organization [facility] [place] [address] Care Team Providers Care Tricot Knitting Machine Operator Name Role Phone MarileeEvelyne APRN Primary Care Provider [phone] Reason for Visit * Reason Onset Date Comments Results 02/23/2020 Encounter Details Date Type Department Care Team (Late st Contact Info) Description 02/23/2020 Telephone [place] [phone] Jaqueline Doran, RN Results Social History Tobacco [...] Miscellaneous Notes * Telephone Encounter - Jaqueline Doran, RN - 02/23/2020 12:23 PM EST Received a critical plt 26 from Emelina of [facility]. Hgb 8.0 ANC 1.95. Patient made aware. She states that she she's so out of breath, can't even walk that much to her car, also can't easily climb the stairsand she's also very tired. Consulted Dr. Vallejo. Per her to send patient to the ED for evaluation for PE. Informed patient of above recommendation and she agrees to head to the ED. Report given to Crystal in [facility] ED. documented in this encounter Plan of Treatment Upcoming Encounters Date Type Department Care Team (Latest Contact Info) Description 12/25/2023 9:[address] Scan at [place] [phone] Xavier Malhotra MD [facility] [place] [address] 12/29/2023 Hospital Encounter Electrophysiology Lab at [address] Xavier Malhotra MD [facility] [place] [address] Paroxysmal atrial fibrillation 12/29/2023 7:30 AM EDT - 12/29/2023 12:00 PM EDT Surgery [place] [phone] Xavier Malhotra MD [facility] [place] [address] ELECTROPHYSIOLOGY PROCEDURE 01/14/2024 10:40 AM EDT Office Visit Cardiology at [place] [phone] Carmen Castaneda PA [facility] [place] [address] Scheduled Procedures Name Priority Associated Diagnoses Date/Ti me TRANSESOPHAGEAL ECHO DURING CATH/EP PROCEDURE Paroxysmal atrial fibrillation 12/29/2023 7:30 AM EDT documented as of this encounter Goals Goal Patient Goal Type Associated Problems Recent Progress Patient-Stated? Author DH [place] Medication Compliance and Understanding Patient Facing Action Plan Lani Love, [facility] Note: Maintain control of disease for as long as possible as assessed by tumor marker levels and scans in clinic every 3 to 6 months documented as of this encounter Visit Diagnoses Not on filedocumented in this encounter Care Teams Tricot Knitting Machine Operator Relationship Specialty Start Date End Date Evelyne Hunt APRN [address] [place] [address] PCP - General Internal Medicine 09/23/17 documented as of this encounter
--- OUTSIDE RECORDS SUMMARY | 2023-12-01 02:15 | XMS_ITS | Encounter Summary ---
Author Organization [facility] [place] [address] Care Team Providers Care Textile Engineer Name Role Phone Evelyne Hunt Dat STEVEN Primary Care Provider [phone] Encounter Details Date Type Department Care Team (Late st Contact Info) Description 02/14/2020 External Results Hematology and Oncology at [place] [phone] Mary Mclain, RN Social History Tobacco Use [...] 9:[address] [place] [phone] Xavier Malhotra MD [facility] [place] [address] 12/29/2023 Hospital Encounter Electrophysiology Lab at [place] [phone] Xavier Malhotra MD [facility] [address] [place] [place] [phone] Paroxysmal atrial fibrillation 12/29/2023 7:30 AM EDT - 12/29/2023 12:00 PM EDT Surgery [place] [phone] Xavier Malhotra MD [facility] [address] ELECTROPHYSIOLOGY PROCEDURE 01/14/2024 10:40 AM EDT Office Visit Cardiology at [address] [phone] Carmen Castaneda PA [facility] [place] [address] Scheduled Procedures Name Priority Associated Diagnoses Date/Ti me TRANSESOPHAGEAL ECHO DURING CATH/EP PROCEDURE Paroxysmal atrial fibrillation 12/29/2023 7:30 AM EDT documented as of this encounter Goals Goal Patient Goal Type Associated Problems Recent Progress Patient-Stated? Author [facility] Medication Compliance and Understanding Patient Facing Action Plan No Lani Vargas, [facility] Note: Maintain control of disease for as long as possible as assessed by tumor marker levels and scans in clinic every 3 to 6 months documented as of this encounter Procedures Procedure Name Priority Date/Time Associated Diagnosis Comments EXTERNAL LAB CBC CMP THYROID RESULTS PANEL Routine 02/14/2020 EXTERNAL LAB CBC CMP THYROID RESULTS PANEL Routine 02/14/2020 documented in this encounter Results * CBC / CMP / Thyroid External Results (02/14/2020) Historical Provider EXTERNAL LAB TONJA SUAREZ * (ABNORMAL) CBC / CMP / Thyroid External Results (02/14/2020) White Blood Cell 6.38(Exte rnal Lab) Hemoglobin 10.2(ExtL ) Hematocrit 29.0(ExtL ) Platelet 18(ExtLL) Sodium 133(Exter nal Lab) Potassium 3.5(Exter nal Lab) Chloride 99(Chemical Packager al Lab) Carbon Dioxide 99(Chemical Packager al Lab) Blood Urea Nitrogen 22(Chemical Packager al Lab) Creatinine 0.83(Exte rnal Lab) Calcium 9.4(Exter nal Lab) Protein, Total 7.5(Exter nal Lab) Albumin 3.9(Exter nal Lab) Bilirubin, Total 1.0(Exter nal Lab) Alkaline Phosphatase 95(Chemical Packager al Lab) Aspartate Aminotransferase 24(Chemical Packager al Lab) Alanine Aminotransferase 35(Chemical Packager al Lab) Segmented Neutrophils Manual 61.8(Exte rnal Lab) Segs Absolute Manual 3,940(Ext ernal Lab) 02/14/2020 Natalie Vallejo MD EXTERNAL LAB ORDERAB LES documented in this encounter Visit Diagnoses Not on filedocumented in this encounter Care Teams Textile Engineer Relationship Specialty Start Date End Date Evelyne Hunt APRN [address] [place] [address] PCP - General Internal Medicine 09/23/17 documented as of this encounter
--- OUTSIDE RECORDS SUMMARY | 2023-12-01 02:15 | XMS_ITS | Encounter Summary ---
Author Organization [facility] [place] [address] Care Team Providers Care Loss Control Engineer Name Role Phone Evelyne Hunt Dat STEVEN Primary Care Provider [phone] Encounter Details Date Type Department Care Team (Late st Contact Info) Description 02/28/2020 External Results Hematology and Oncology at [place] [phone] Mary Mclain, RN Social History Tobacco Use [...] 9:[address] [place] [phone] Xavier Malhotra MD [facility] [place] [address] 12/29/2023 Hospital Encounter Electrophysiology Lab at [place] [phone] Xavier Malhotra MD [facility] [address] [place] [phone] Paroxysmal atrial fibrillation 12/29/2023 7:30 AM EDT - 12/29/2023 12:00 PM EDT Surgery [place] [phone] Xavier Malhotra MD [facility] [place] [address] ELECTROPHYSIOLOGY PROCEDURE 01/14/2024 10:40 AM EDT Office Visit Cardiology at [address] [phone] Carmen Castaneda PA [facility] [place] [address] Scheduled Procedures Name Priority Associated Diagnoses Date/Ti me TRANSESOPHAGEAL ECHO DURING CATH/EP PROCEDURE Paroxysmal atrial fibrillation 12/29/2023 7:30 AM EDT documented as of this encounter Goals Goal Patient Goal Type Associated Problems Recent Progress Patient-Stated? Author [facility] Medication Compliance and Understanding Patient Facing Action Plan Lani Love, [facility] Note: Maintain control of disease for as long as possible as assessed by tumor marker levels and scans in clinic every 3 to 6 months documented as of this encounter Procedures Procedure Name Priority Date/Time Associated Diagnosis Comments EXTERNAL LAB CBC CMP THYROID RESULTS PANEL Routine 02/28/2020 EXTERNAL LAB CBC CMP THYROID RESULTS PANEL Routine 02/28/2020 EXTERNAL LAB CBC CMP THYROID RESULTS PANEL Routine 02/28/2020 documented in this encounter Results * CBC / CMP / Thyroid External Results (02/28/2020) Historical Provider MD CURT SUAREZ * CBC / CMP / Thyroid External Results (02/28/2020) Historical Provider MD CURT SUAREZ * (ABNORMAL) CBC / CMP / Thyroid External Results (02/28/2020) White Blood Cell 5.09(Exte rnal Lab) Hemoglobin 9.7(ExtL) Hematocrit 27.8(ExtL ) Platelet 145(Exter nal Lab) Sodium 138(Exter nal Lab) Potassium 3.9(Exter nal Lab) Chloride 102(Exter nal Lab) Carbon Dioxide 27(Cardiothoracic Anesthesia Technician al Lab) Blood Urea Nitrogen 12(Cardiothoracic Anesthesia Technician al Lab) Creatinine 0.72(Exte rnal Lab) Calcium 9.5(Exter nal Lab) Protein, Total 7.6(Exter nal Lab) Albumin 4.0(Exter nal Lab) Bilirubin, Total 0.7(Exter nal Lab) Alkaline Phosphatase 82(Cardiothoracic Anesthesia Technician al Lab) Aspartate Aminotransferase 15(Cardiothoracic Anesthesia Technician al Lab) Alanine Aminotransferase 21(Cardiothoracic Anesthesia Technician al Lab) Segs Absolute Manual 2,470(Ext ernal Lab) Segmented Neutrophils Manual 48.5(Exte rnal Lab) 02/28/2020 Natalie Vallejo MD EXTERNAL LAB ORDERAB LES documented in this encounter Visit Diagnoses Not on filedocumented in this encounter Care Teams Loss Control Engineer Relationship Specialty Start Date End Date Evelyne Hunt, TENISHA [address] [place] [address] PCP - General Internal Medicine 09/23/17 documented as of this encounter
--- OUTSIDE RECORDS SUMMARY | 2023-12-01 02:15 | XMS_ITS | Encounter Summary ---
Author Organization [facility] Address [facility] [place] [address] Care Team Providers Care Casino Dealer Name Role Phone Evelyne Hunt APRN Primary Care Provider [phone] Encounter Details Date Type Department Care Team (Latest Contact Info) Description 04/03/2020 9:00 AM EST TH Visit (TeleHealth) Gy[place] [phone] Natalie Vallejo MD [facility] [place] [address] Ovarian cancer, lateral, stage IIIb high-grade serous/endometrioid, [...] - Inhaled Oxygen Concentration - - Weight 54 kg (119 lb) 03/28/2020 2:03 PM EST clothing fitting better and thinks has gained Height 164.4 cm (5' 4.72) 03/28/2020 2 :03 PM EST Body Mass Index 19.97 03/28/2020 2:03 PM EST documented in this encounter Progress Notes * Natalie Vallejo MD - 04/03/2020 9:00 AM EST Division [place] [address] Gynecologic Oncology-Telehealth Encounter. 8:49- 9:17 Reason/purpose for telehealth encounter: ovarian cancer, niraparib followup Patient's physical location at the time of this telehealth/telephone visit: Home, in [place]. The patient voiced an understanding of the [...] and provided verbal consent for the encounter. Summary of conversation, decision making, and plan: ovarian cancer on maintenance niraparib She is back on niraparib at 100 mg each night. She had had a dose delay and reduction due to low platelets. She is back to eating better and has gained some weight back. She is feeling much better lately and more like herself. Her bowels are back to normal. She has no chest pain, or shortness of breath. She has no vaginal bleeding and no blood in the stool or urine. Her CA125 is reportedly 6 most recently. Recent labs: Results for MARK WALLER ( ) as of 04/03/2020 08:50 Ref. Range 03/27/2020 00:00 WBC Unknown 6.63 (External Lab) Hemoglobin Unknown 11.8 (External Lab) Hematocrit Unknown 35.3 (UF) Platelets Unknown 165 (External Lab) Neutrophil % Unknown 67 (External Lab) Neutrophil Abs Unknown 4,440 (External Lab) Sodium Unknown 134 (UF) Potassium Unknown 4.1 (External Lab) Chloride Unknown 101 (External Lab) CO2 Unknown 28 (External Lab) BUN Unknown 16 (External Lab) Creatinine Unknown 0.81 (External Lab) Calcium Unknown 9.5 (External Lab) Total Protein Unknown 7.6 (External Lab) Albumin Unknown 4.1 (External Lab) Total Bilirubin Unknown 0.9 (External Lab) Alk Phos Unknown 79 (External Lab) AST Unknown 18 (External Lab) ALT Unknown 25 (External Lab) I spent a total of 28 minutes on this visit,including time with the patient and pre-/post-visit planning for the management of ovarian cancer maintenance. Items to Complete - (To-Do List): 1. Answered questions about tumor marker and how it is used. 2. Also answered questions about the COVID vaccine, estrogen and concerns of facial hair, 3. Change [facility] labs to monthly given recent normal and COVID pandemic to minimize exposures. Mary to let [facility] know. 4. followup via telehealth in 1 month documented in this encounter Plan of Treatment Upcoming Encounters Date Type Department Care Team (Latest Contact Info) Description 12/25/2023 9:[address] [place] [address] Xavier Malhotra MD [facility] [place] [address] 12/29/2023 Hospital Encounter [place] [phone] Xavier Malhotra MD [facility] [place] [place] [address] Paroxysmal atrial fibrillation 12/29/2023 7:30 AM EDT - 12/29/2023 12:00 PM EDT Surgery [place] [address] Xavier Malhotra MD [facility] [place] [place] [address] ELECTROPHYSIOLOGY PROCEDURE 01/14/2024 10:40 AM EDT Office Visit Cardiology at [address] [phone] Carmen Castaneda PA [facility] [place] [address] Scheduled Procedures Name Priority Associated Diagnoses Date/Ti [...] fibrillation documented in this encounter Care Teams Casino Dealer Relationship Specialty Start Date End Date Evelyne Hunt APRN [address] [place] [address] PCP - General Internal Medicine 09/23/17 documented as of this encounter
--- OUTSIDE RECORDS SUMMARY | 2023-12-01 02:15 | XMS_ITS | Encounter Summary ---
Author Organization [facility] Address [facility] [place] [address] Care Team Providers Care Closing Specialist Name Role Phone Evelyne Hunt TENISHA Primary Care Provider Encounter Details Date Type Department Care Team (Late st Contact Info) Description 02/25/2020 Orders Only Cardiology at [address] [phone] Franklyn Toure MD [facility] [place] [address] SVT (supraventricular tachycardia) (Primary Dx); Hypertension, unspecified type Social History Tobacco Use [...] 9:[address] [place] [address] Xavier Malhotra MD [facility] [place] [address] 12/29/2023 Hospital Encounter [place] [address] Xavier Malhotra MD [facility] [place] [address] Paroxysmal atrial fibrillation 12/29/2023 7:30 AM EDT - 12/29/2023 12:00 PM EDT Surgery [place] [phone] Xavier Malhotra MD [facility] [place] [address] ELECTROPHYSIOLOGY PROCEDURE 01/14/2024 10:40 AM EDT Office Visit Cardiology at [address] [phone] Carmen Castaneda PA [facility] [place] [address] Scheduled Procedures Name Priority Associated Diagnoses Date/Ti [...] fibrillation documented in this encounter Care Teams Closing Specialist Relationship Specialty Start Date End Date Evelyne Hunt APRN [address] [place] [address] PCP - General Internal Medicine 09/23/17 documented as of this encounter
--- OUTSIDE RECORDS SUMMARY | 2023-12-01 02:15 | XMS_ITS | Encounter Summary ---
Author Organization Formerly [facility] [place] [address] Care Team Providers Care Watch Crystal Grinder Name Role Phone MarileeEvelyne APRN Primary Care Provider [phone] Reason for Visit * Reason Onset Date Comments Results 02/14/2020 Encounter Details Date Type Department Care Team (Late st Contact Info) Description 02/14/2020 Telephone Hematology [place] [phone] Mary Mclain, RN Results Social History Tobacco [...] Telephone Encounter - Mary Mclain RN - 02/14/2020 12:39 PM EDT Relayed following results to pt. Ivana denies any signs of bleeding. She will call if she has any signs of bleeding. She will repeat labs on Friday. Recent Results (from the past 72 hour(s)) CBC / CMP / Thyroid External Results Result Value Ref Range WBC 6.38 (External Lab) Hemoglobin 10.2 (ExtL) Hematocrit 29.0 (ExtL) Platelets 18 (ExtLL) Sodium 133 (External Lab) Potassium 3.5 (External Lab) Chloride 99 (External Lab) CO2 99 (External Lab) BUN 22 (External Lab) Creatinine 0.83 (External Lab) Calcium 9.4 (External Lab) Total Protein 7.5 (External Lab) Albumin 3.9 (External Lab) Total Bilirubin 1.0 (External Lab) Alk Phos 95 (External Lab) AST 24 (External Lab) ALT 35 (External Lab) Neutrophil % 61.8 (External Lab) Neutrophil Abs 3,940 (External Lab) documented in this encounter Plan of Treatment Upcoming Encounters Date Type Department Care Team (Latest Contact Info) Description 12/25/2023 9:[address] [place] [phone] Xavier Malhotra MD [facility] [place] [address] 12/29/2023 Hospital Encounter [place] [phone] Xavier Malhotra MD [facility] [place] [address] Paroxysmal atrial fibrillation 12/29/2023 7:30 AM EDT - 12/29/2023 12:00 PM EDT Surgery [place] [phone] Xavier Malhotra MD [facility] [place] [address] ELECTROPHYSIOLOGY PROCEDURE 01/14/2024 10:40 AM EDT Office Visit Cardiology at [address] [phone] Carmen Castaneda PA [facility] [place] [address] Scheduled Procedures Name Priority Associated Diagnoses Date/Ti me TRANSESOPHAGEAL ECHO DURING CATH/EP PROCEDURE Paroxysmal atrial fibrillation 12/29/2023 7:30 AM EDT documented as of this encounter Goals Goal Patient Goal Type Associated Problems Recent Progress Patient-Stated? Author DH Home Medication Compliance and Understanding Patient Facing Action Plan Lani Love, [facility] Note: Maintain control of disease for as long as possible as assessed by tumor marker levels and scans in clinic every 3 to 6 months documented as of this encounter Visit Diagnoses Not on filedocumented in this encounter Care Teams Watch Crystal Grinder Relationship Specialty Start Date End Date Evelyne Hunt APRN [address] [place] [address] PCP - General Internal Medicine 09/23/17 documented as of this encounter
--- OUTSIDE RECORDS SUMMARY | 2023-12-01 02:15 | XMS_ITS | Encounter Summary ---
Author Organization [facility] Address [facility] [place] [address] Care Team Providers Care Edge Stripper Name Role Phone Evelyne Hunt APRN Primary Care Provider [phone] Encounter Details Date Type Department Care Team (Late st Contact Info) Description 02/23/2020 Notes Only Cardiology at [address] [phone] Franklyn Toure MD [facility] [place] [address] Social History Tobacco Use Types Packs/Day Years [...] as of this encounter Progress Notes * Franklyn Toure MD - 02/23/2020 11:46 AM EST I returned Ms. Luna's call on February 20 to discuss her feelings of fatigue. She feels tired most of the time, particularly in the morning. Symptoms are not necessarily related to exertion. She is still experiencing palpitations. She queried whether it may be related to metoprolol, but notes that symptoms may have worsened initially on metoprolol but have improved somewhat since then. Her TSH ws slightly elevated. She is having blood drawn soon. I suggested that her PCP ad T4 and T3. I also suggested a trial of a lower dose of metoprolol (25 mg qd). Of note, recent labs have shown thrombocytopenia. I do not think symptoms are caused by her aortic stenosis. She had been taking Zejula, and I wonder if that may be responsible in pa for her symptoms. It has been stopped. I will speak with her again in several days. documented in this encounter Plan of Treatment Upcoming Encounters Date Type Department Care Team (Latest Contact Info) Description 12/25/2023 9:[address] [place] [address] Xavier Malhotra MD [facility] [place] [address] 12/29/2023 Hospital Encounter [place] [phone] Xavier Malhotra MD [facility] [place] [address] Paroxysmal atrial fibrillation 12/29/2023 7:30 AM EDT - 12/29/2023 12:00 PM EDT Surgery [place] [address] Xavier Malhotra MD [facility] [place] [address] ELECTROPHYSIOLOGY PROCEDURE 01/14/2024 10:40 AM EDT Office Visit Cardiology at [address] [phone] Carmen Castaneda PA [facility] [place] [address] Scheduled Procedures Name Priority Associated Diagnoses Date/Ti [...] on filedocumented in this encounter Care Teams Edge Stripper Relationship Specialty Start Date End Date Evelyne Hunt, TENISHA [address] [place] [address] PCP - General Internal Medicine 09/23/17 documented as of this encounter
--- OUTSIDE RECORDS SUMMARY | 2023-12-01 02:15 | XMS_ITS | Encounter Summary ---
Author Organization [facility] [place] [address] Care Team Providers Care Lemon Grower Name Role Phone Evelyne Hunt Dat STEVEN Primary Care Provider [phone] Encounter Details Date Type Department Care Team (Late st Contact Info) Description 02/23/2020 External Results Gy[place] [address] Natalie Vallejo MD [facility] [place] [address] Social History Tobacco Use Types [...] AM EDT [place]ment [place] [address] Xavier Malhotra MD [facility] [place] [address] 12/29/2023 Hospital Encounter [place] [address] Xavier Malhotra MD [facility] [place] [address] Paroxysmal atrial fibrillation 12/29/2023 7:30 AM EDT - 12/29/2023 12:00 PM EDT Surgery [place] [phone] Xavier Malhotra MD [facility] [place] [address] ELECTROPHYSIOLOGY PROCEDURE 01/14/2024 10:40 AM EDT Office Visit Cardiology at [address] [phone] Carmen Castaneda PA [facility] [place] [address] Scheduled Procedures Name Priority Associated Diagnoses Date/Ti [...] LAB CBC CMP THYROID RESULTS PANEL Routine 02/23/2020 documented in this encounter Results * CBC / CMP / Thyroid External Results (02/23/2020) White Blood Cell 4.79 Red Blood Cell 2.26 Hemoglobin 8.0 Hematocrit 22.8 Platelet 26 ANC 1.95 02/23/2020 Natalie Vallejo MD EXTERNAL LAB ORDERAB LES documented in this encounter Visit Diagnoses Not on filedocumented in this encounter Care Teams Lemon Grower Relationship Specialty Start Date End Date Evelyne Hunt, AGRICULTURAL TECHNICAL OFFICER [address] [place] [address] PCP - General Internal Medicine 09/23/17 documented as of this encounter
--- OUTSIDE RECORDS SUMMARY | 2023-12-01 02:15 | XMS_ITS | Encounter Summary ---
[place] [address] Care Team Providers Care Nutritionist Public Health Name Role Phone Evelyne Hunt APRN Primary Care Provider [phone] Encounter Details Date Type Department Care Team (Latest Contact Info) Description 02/16/2020 1:48 PM EDT - 02/16/2020 11:59 PM EDT Hospital Encounter Hematology [place] [address] Ovarian cancer, lateral, stage IIIb high-grade serous/endometrioid , 07/20/2019 s/p FREDI/BSO/oment/PPALN D/RSReanstomosis Discharge Disposition: Home Social History Tobacco Use [...] Sign Reading Time Taken Comments Blood Pressure 124/80 02/16/2020 4:27 PM EDT Pulse 72 02/16/2020 4:27 PM EDT Temperature 35.8 ??C (96.4 ??F) 02/16/2020 3:30 PM ED T Respiratory Rate 18 02/16/2020 4:27 PM EDT Oxygen Saturation 100% 02/16/2020 4:27 PM EDT Inhaled Oxygen Concentration - - Weight - - Height - - Body Mass Index - - documented in this encounter Medications at Time of Discharge Medication Sig Dispensed Refills Start Date End Date buPROPion XL (Wellbutrin XL) 300 mg Tablet Extended Release 24 hr TK 1 T PO QAM 10/01/2019 metoprolol succinate XL (Toprol-XL) 50 mg Tablet Sustained Release 24 hr Take 1 tablet by mouth daily. 30 tablet 12 02/01/2020 02/25/2020 niraparib (ZEJULA) capsule Take 200 mg by mouth daily for 30 days. Call clinic before starting medication. 30 Doses of treatment to dispense 11 01/04/2020 05/05/2020 clobetasoL (TEMOVATE) 0.05 % Ointment Apply to the affected area daily at night for 6 to 12 weeks and then one to three times per week for maintenance. Apply sparingly (a dot 3 mm wide) in a thin film over the affected area. 15 g 3 12/13/2019 05/14/2021 acetaminophen (Tylenol) 325 mg Tablet Take 2 tablets by mouth every 6 hours as needed for Pain. 50 tablet 07/24/2019 05/03/2020 ibuprofen (Advil;Motrin) 600 mg Tablet Take 1 tablet by mouth every 6 hours as needed for Pain. 50 tablet 07/24/2019 05/03/2020 ergocalciferol, vitamin D2, (VITAMIN D ORAL) Take by mouth daily. 02/06/2022 UNABLE TO FIND daily. CBD - 25 mg 020 atorvastatin (LIPITOR) 10 mg Tablet Take 10 mg by mouth daily. 09/20/2021 dilTIAZem (CARDIZEM CD) 180 mg Capsule, Sust. Release 24 hrIndications:SVT (supraventricular tachycardia) Take 1 capsule by mouth daily. 60 capsule 5 09/17/2017 04/24/2020 documented as of this encounter Progress Notes * Jane Ramirez RN - 02/16/2020 4:16 PM EDT Patient is here for transfusion of 1 unit(s) of Platelts. Prior to transfusion initiation, RN educated patient regarding signs and symptoms of a transfusion reaction as follows: Fever, chills/rigors, nausea/vomiting, hypotension, bloody or dark urine, cough, dyspnea, SOB, wheezing, hypoxemia, decreased O2 saturations, back or flank pain, headache, infusion site pain. Directed patient to alert staff right away if beginning to experience any of these signs/symptoms. Patient verbalized understanding. Patient tolerated transfusion with out issue signs or symptoms of complication. RN shared [facility] Information for Transfusion Recipients (Form H-1154) with patient via AVS. RN directed them to call clinic or hospital if any listed signs/symptoms develop within the next 24 hours, or go to the emergency department if more urgent care is needed. Patient verbalized understanding.Pat ient Name: Gabi Luna Patient Age: 59 y.o. Birthdate: 1960 Admit date: 02/16/2020 Attending Physician: Cherry att. providers found documented in this encounter Plan of Treatment Upcoming Encounters Date Type Department Care Team (Latest Contact Info) Description 12/25/2023 9:[address] Scan at [place] [phone] Xavier Malhotra MD [facility] [place] [address] 12/29/2023 Hospital Encounter Electrophysiology Lab at [place] [phone] Xavier Malhotra MD [facility] [place] [place] [address] Paroxysmal atrial fibrillation 12/29/2023 7:30 AM EDT - 12/29/2023 12:00 PM EDT Surgery [place] [phone] Xavier Malhotra MD [facility] [place] [address] ELECTROPHYSIOLOGY PROCEDURE 01/14/2024 10:40 AM EDT Office Visit Cardiology at [address] [phone] Carmen Castaneda PA [facility] [place] [address] Scheduled Procedures Name Priority Associated Diagnoses Date/Ti [...] Procedure Name Priority Date/Time Associated Diagnosis Comments TRANSFUSE 1 UNIT PLATELET PHERESIS Routine 02/16/2020 3:15 PM EDT SCAN, PERIPHERAL BLOOD STAT 02/16/2020 2:00 PM EDT HEMOGRAM STAT 02/16/2020 2:00 PM EDT Ovarian cancer, lateral, stage IIIb high-grade serous/endometrioid , 07/20/2019 s/p FREDI/BSO/oment/PPALN D/RSReanstomosis DIFFERENTIAL, AUTOMATED STAT 02/16/2020 2:00 PM EDT Ovarian cancer, lateral, stage IIIb high-grade serous/endometrioid , 07/20/2019 s/p FREDI/BSO/oment/PPALN D/RSReanstomosis HC CBC,PLT & AUTO DIFF STAT 02/16/2020 2:00 PM EDT Ovarian cancer, lateral, stage IIIb high-grade serous/endometrioid , 07/20/2019 s/p FREDI/BSO/oment/PPALN D/RSReanstomosis PREPARE PLATELETS, APHERESIS Routine 02/16/2020 1:55 PM EDT LAB SCAN 02/16/2020 12:00 AM EDT documented in this encounter Results * Transfuse 1 unit platelets, apheresis (02/16/2020 4:36 PM EDT) Natalie Vallejo MD NURSING TREATMENT OR DERABLES - BLOOD ADMIN * Transfuse 1 unit platelets, apheresis (02/16/2020 4:36 PM EDT) Natalie Vallejo MD NURSING TREATMENT OR DERABLES - BLOOD ADMIN * Scan, Peripheral Blood (02/16/2020 2:00 PM EDT) Plat estimate Decreased [facility] RBC Morphology Abnormal [facility] Tear Cell 1-5 /HPF [facility] Blood specimen (specimen) 02/16/2020 2:00 PM EDT 02/16/2020 2:12 PM EDT Narrative Resulting Agency Comment Spec In Lab Natalie Vallejo MD HEMATOLOGY ORDERABLE S Performing Organization Address City/State/[facility] Co de Phone Number [facility] [place] [address] * (ABNORMAL) Differential, Automated (02/16/2020 2:00 PM EDT) Neutrophil % 46.9 % [facility] Neutrophil Absolute 2.42 1.70 - 6.10 x10(3)/mc L [facility] Lymph % 43.5 % [facility] Lymphocytes Abs 2.2 0.9 - 3.2 x10(3)/mc L [facility] Monocyte % 4.3 % [facility] Monocyte Abs 0.2(L) 0.3 - 0.9 x10(3)/mc L [facility] Eos % 3.9 % [facility] Eosinophils Abs 0.2 0.0 - 0.4 x10(3)/mc L [facility] Basophil % 1.2 % [facility] Baso Absolute 0.1 0.0 - 0.1 x10(3)/mc L [facility] Immature Gran % 0.20 % [facility] Comment: Immature granulocytes(IG's)percentage and absolute count will include metamyelocytes, myelocytes, and promyelocytes. Blood smears from CBCs yielding IG's will be scanned manually for concordance. If this scan disagrees with the automated IG or if promyelocytes are noted, a manual differential will be performed. Immature Gran Absolute 0.01 0.00 - 0.04 x10(3)/mc L [facility] Blood specimen (specimen) 02/16/2020 2:00 PM EDT 02/16/2020 2:12 PM EDT Narrative Resulting Agency Comment Spec In Lab Natalie Vallejo MD HEMATOLOGY ORDERABLE S [facility] [place] [address] * (ABNORMAL) Hemogram (02/16/2020 2:00 PM EDT) White Blood Cell 5.2 4.0 - 9.5 x10(3)/mc L [facility] Red Blood Cell 2.66(L) 4.00 - 5.21 x10(6)/mc L [facility] Hemoglobin 9.8(L) 11.7 - 15.5 gm/dL [facility] Hematocrit 26.3(L) 35.7 - 45.8 % [facility] Mean Cell Volume 98.9(H) 82.6 - 94.4 fL [facility] Mean Cell Hemoglobin 36.8(H) 27.1 - 32.0 pg [facility] Mean Cell Hemoglobin Concentration 37.3(H) 31.7 - 35.0 gm/dL [facility] Platelet 8(Critica l) 145 - 357 x10(3)/mc L [facility] Comment: This result has been called to NADINE EASTMAN by KULDEEP MONIQUE on 02 16 2020 at 1457, and has been read back. RDW Standard Deviation 43.2 37.0 - 46.0 fL [facility] RDW coefficient of variation 12.0 11.5 - 14.1 % [facility] Mean Platelet Volume 12.2 7.6 - 12.9 fL [facility] NRBC% auto 0.0 % [facility] NRBC Absolute 0.000 0.000 - 0.000 x10(3)/mc L [facility] Blood specimen (specimen) 02/16/2020 2:00 PM EDT 02/16/2020 2:12 PM EDT Narrative Resulting Agency Comment Spec In Lab Natalie Vallejo MD HEMATOLOGY ORDERABLE S Performing Organization Address [facility]/ZIP Co de Phone Number [facility] [place] [address] * Prepare Platelets, Apheresis (02/16/2020 1:55 PM EDT) Dispensed? Yes [facility] Blood specimen (specimen) 02/16/2020 1:55 PM EDT 02/16/2020 1:52 PM EDT Narrative Resulting Agency Comment Spec In Lab Natalie Vallejo MD BLOOD BANK PRODUCT O RDERABLES Performing Organization Address [facility]/ZIP Co de Phone Number [facility] [place] [address] * SCAN DOC: LAB (02/16/2020 12:00 AM EDT) Narrative 02/16/2020 12:00 AM EDT Ordered by an unspecified provider. Scanning Provider MEDIA MGR SCAN EXT O RDR/RSLT documented in this encounter Visit Diagnoses Diagnosis Ovarian cancer, lateral, stage IIIb high-grade serous/endometrioid, 07/20/2019 s/p FREDI/BSO/oment/PPALND/RSReanstomosis Paroxysmal atrial fibrillation Atrial fibrillation Paroxysmal atrial fibrillation Atrial fibrillation documented in this encounter Care Teams Nutritionist Public Health Relationship Specialty Start Date End Date Evelyne Hunt APRN [address] [facility] [place] [address] PCP - General Internal Medicine 09/23/17 documented as of this encounter
--- OUTSIDE RECORDS SUMMARY | 2023-12-01 02:15 | XMS_ITS | Encounter Summary ---
Author Organization [facility] [place] [address] Care Team Providers Care Relationship Consultant Name Role Phone Evelyne Hunt Dat STEVEN Primary Care Provider [phone] Reason for Visit * Reason Onset Date Comments Results 02/16/2020 Encounter Details Date Type Department Care Team (Late st Contact Info) Description 02/16/2020 Telephone [place] [address] Jaqueline Doran, RN Results Social History Tobacco [...] Telephone Encounter - Jaqueline Doran RN - 02/16/2020 2:58 PM EDT Received a call from [facility] lab for a critical platelets of 8. Pt will receive platelet transfusion this pm in 3K as ordered by Dr. Vallejo. documented in this encounter Plan of Treatment Upcoming Encounters Date Type Department Care Team (Latest Contact Info) Description 12/25/2023 9:[address] [place] [address] Xavier Malhotra MD [facility] [place] [address] 12/29/2023 Hospital Encounter Electrophysiology Lab at [place] [phone] Xavier Malhotra MD [facility] [place] [address] Paroxysmal atrial fibrillation 12/29/2023 7:30 AM EDT - 12/29/2023 12:00 PM EDT Surgery [place] [address] Xavier Malhotra MD [facility] [place] [address] ELECTROPHYSIOLOGY PROCEDURE 01/14/2024 10:40 AM EDT Office Visit Cardiology at [place] [phone] Carmen Castaneda PA [facility] [place] [address] Scheduled Procedures Name Priority Associated Diagnoses Date/Ti me TRANSESOPHAGEAL ECHO DURING CATH/EP PROCEDURE Paroxysmal atrial fibrillation 12/29/2023 7:30 AM EDT documented as of this encounter Goals Goal Patient Goal Type Associated Problems Recent Progress Patient-Stated? Author [facility] Medication Compliance and Understanding Patient Facing Action Plan Lani Love, [facility] Note: Maintain control of disease for as long as possible as assessed by tumor marker levels and scans in clinic every 3 to 6 months documented as of this encounter Visit Diagnoses Not on filedocumented in this encounter Care Teams Relationship Consultant Relationship Specialty Start Date End Date Evelyne Hunt APRN [address] [place] [address] PCP - General Internal Medicine 09/23/17 documented as of this encounter
--- OUTSIDE RECORDS SUMMARY | 2023-12-01 02:15 | XMS_ITS | Encounter Summary ---
[place] [address] Care Team Providers Care Plunket Nurse Name Role Phone Kiki Huntyce Dat STEVEN Primary Care Provider [phone] Reason for Visit * Reason Onset Date Comments Other 03/07/2020 Encounter Details Date Type Department Care Team (Late st Contact Info) Description 03/07/2020 Telephone Gynecology [place] [phone] Jaqueline Doran RN Other Social History Tobacco Use Types Packs/Day Years [...] Telephone Encounter - Jaqueline Doran RN - 03/07/2020 4:42 PM EST Received a call from patient asking whether it's ok to restart Zejula 100 mg daily now that her counts are better and she feels great but wants to wait after her dental appointment tomorrow. documented in this encounter Plan of Treatment Upcoming Encounters Date Type Department Care Team (Latest Contact Info) Description 12/25/2023 9:[address] [place] [address] Xavier Malhotra MD [facility] [place] [address] 12/29/2023 Hospital Encounter Electrophysiology Lab at [address] Xavier Malhotra MD [facility] [place] [address] Paroxysmal atrial fibrillation 12/29/2023 7:30 AM EDT - 12/29/2023 12:00 PM EDT Surgery [place] [address] Xavier Malhotra MD [facility] [place] [address] ELECTROPHYSIOLOGY PROCEDURE 01/14/2024 10:40 AM EDT Office Visit Cardiology at [place] [address] Carmen Castaneda PA [facility] [place] [address] Scheduled Procedures Name Priority Associated Diagnoses Date/Ti [...] on filedocumented in this encounter Care Teams Plunket Nurse Relationship Specialty Start Date End Date Evelyne Hunt APRN [address] [place] [address] PCP - General Internal Medicine 09/23/17 documented as of this encounter
--- OUTSIDE RECORDS SUMMARY | 2023-12-01 02:15 | XMS_ITS | Encounter Summary ---
Author Organization [facility]ly [facility] [place] [address] Care Team Providers Care Bark Press Operator Name Role Phone Marilee Evelyne Daugherty APRN Primary Care Provider [phone] Encounter Details Date Type Department Care Team (Late st Contact Info) Description 02/16/2020 External Results [place] [address] Social History Tobacco Use Types [...] 9:[address] [place] [address] Xavier Malhotra MD [facility] [place] [address] 12/29/2023 Hospital Encounter [place] [address] Xavier Malhotra MD [facility] [place] [address] Paroxysmal atrial fibrillation 12/29/2023 7:30 AM EDT - 12/29/2023 12:00 PM EDT Surgery [place] [phone] Xavier Malhotra MD [facility] [place] [address] ELECTROPHYSIOLOGY PROCEDURE 01/14/2024 10:40 AM EDT Office Visit Cardiology at [address] [phone] Carmen Castaneda PA [facility] [place] [address] Scheduled Procedures Name Priority Associated Diagnoses Date/Ti me TRANSESOPHAGEAL ECHO DURING CATH/EP PROCEDURE Paroxysmal atrial fibrillation 12/29/2023 7:30 AM EDT documented as of this encounter Goals Goal Patient Goal Type Associated Problems Recent Progress Patient-Stated? Author [facility] Medication Compliance and Understanding Patient Facing Action Plan No Lani Vargas, [facility] Note: Maintain control of disease for as long as possible as assessed by tumor marker levels and scans in clinic every 3 to 6 months documented as of this encounter Procedures Procedure Name Priority Date/Time Associated Diagnosis Comments CBC (WITH DIFF) Routine 02/16/2020 documented in this encounter Results * CBC (with Diff) (02/16/2020) Blood specimen (specimen) Historical Provider HEMATOLOGY ORDERA BLES documented in this encounter Visit Diagnoses Not on filedocumented in this encounter Care Teams Bark Press Operator Relationship Specialty Start Date End Date Evelyne Hunt APRN [address] [place] [address] PCP - General Internal Medicine 09/23/17 documented as of this encounter
--- OUTSIDE RECORDS SUMMARY | 2023-12-01 02:15 | XMS_ITS | Encounter Summary ---
Author Organization [facility] [place] [address] Care Team Providers Care Supportive Employment Case Manager Name Role Phone Evelyne Hunt Dat STEVEN Primary Care Provider [phone] Encounter Details Date Type Department Care Team (Late st Contact Info) Description 02/25/2020 Telephone Cardiology at [address] [phone] Praveena Petty RN Social History Tobacco Use [...] Telephone Encounter - Praveena Petty RN - 02/25/2020 1:17 PM EST Patient called to report that she had labs done yesterday and she is anemic which she didn't know. She was told that some of what she has been feeling might be due to that. She also stated she is taking a half tablet daily of her Metoprolol and requested a new prescription be sent to her pharmacy for this because her is having trouble cutting the 50mg tablets. Patient states she just wanted Dr. Toure to know so he could review her labs after Tuesdays call.She is generally feeling the same but no worse. Praveena Vega RNassistant to the ceo Cardiovascular Clinic General Team-Otto[place] documented in this encounter Plan of Treatment Upcoming Encounters Date Type Department Care Team (Latest Contact Info) Description 12/25/2023 9:[address] Scan at [place] [phone] Xavier Malhotra MD [facility] [place] [address] 12/29/2023 Hospital Encounter [place] [phone] Xavier Malhotra MD [facility] [place] [address] Paroxysmal atrial fibrillation 12/29/2023 7:30 AM EDT - 12/29/2023 12:00 PM EDT Surgery [place] [phone] Xavier Malhotra MD [facility] [place] [address] ELECTROPHYSIOLOGY PROCEDURE 01/14/2024 10:40 AM EDT Office Visit Cardiology at [address] [phone] Carmen Castaneda PA [facility] [place] [address] Scheduled Procedures Name Priority Associated Diagnoses Date/Ti me TRANSESOPHAGEAL ECHO DURING CATH/EP PROCEDURE Paroxysmal atrial fibrillation 12/29/2023 7:30 AM EDT documented as of this encounter Goals Goal Patient Goal Type Associated Problems Recent Progress Patient-Stated? Author [facility] Medication Compliance and Understanding Patient Facing Action Plan Lani Love, [facility] Note: Maintain control of disease for as long as possible as assessed by tumor marker levels and scans in clinic every 3 to 6 months documented as of this encounter Visit Diagnoses Not on filedocumented in this encounter Care Teams Supportive Employment Case Manager Relationship Specialty Start Date End Date Evelyne Hunt APRN [address] [place] [address] PCP - General Internal Medicine 09/23/17 documented as of this encounter
--- OUTSIDE RECORDS SUMMARY | 2023-12-01 02:15 | XMS_ITS | Encounter Summary ---
Author Organization [facility] [place] [address] Care Team Providers Care Marketing Admin Name Role Phone Evelyne Hunt Dat STEVEN Primary Care Provider [phone] Encounter Details Date Type Department Care Team (Late st Contact Info) Description 02/24/2020 External Results Gy[place] [address] Natalie Vallejo MD [facility] [place] [address] Social History Tobacco Use Types [...] 9:[address] [place] [address] Xavier Malhotra MD [facility] [place] [address] 12/29/2023 Hospital Encounter Elect[place] [address] Xavier Malhotra MD [facility] [place] [address] Paroxysmal atrial fibrillation 12/29/2023 7:30 AM EDT - 12/29/2023 12:00 PM EDT Surgery Elect[place] [phone] Xavier Malhotra MD [facility] [place] [address] ELECTROPHYSIOLOGY PROCEDURE 01/14/2024 10:40 AM EDT Office Visit Cardiology at [address] [phone] Carmen Castaneda PA [facility] [place] [address] Scheduled Procedures Name Priority Associated Diagnoses Date/Ti [...] CBC CMP THYROID RESULTS PANEL Routine 02/23/2020 EXTERNAL LAB CBC CMP THYROID RESULTS PANEL Routine 02/23/2020 documented in this encounter Results * CBC / CMP / Thyroid External Results (02/23/2020) Natalie Vallejo MD EXTERNAL LAB ORDERAB LES * CBC / CMP / Thyroid External Results (02/23/2020) Sodium 136 Potassium 4.1 Chloride 101 Carbon Dioxide 28 Blood Urea Nitrogen 16 Creatinine 0.73 Glucose 113 Calcium 9.2 Protein, Total 7.5 Albumin 4.0 Bilirubin, Total 0.8 Alkaline Phosphatase 83 Aspartate Aminotransferase 15 Alanine Aminotransferase 22 02/23/2020 Natalie Vallejo MD EXTERNAL LAB ORDERAB LES documented in this encounter Visit Diagnoses Not on filedocumented in this encounter Care Teams Marketing Admin Relationship Specialty Start Date End Date Evelyne Hunt APRN [address] [place] [address] PCP - General Internal Medicine 09/23/17 documented as of this encounter
--- OUTSIDE RECORDS SUMMARY | 2023-12-01 02:15 | XMS_ITS | Encounter Summary ---
Author Organization [facility] [place] [address] Care Team Providers Care Cooler Conveyor Loader Name Role Phone Evelyne Hunt APRN Primary Care Provider [phone] Reason for Visit * Reason Onset Date Comments Results 02/16/2020 Encounter Details Date Type Department Care Team (Late st Contact Info) Description 02/16/2020 Telephone Hematology [place] [phone] Mary Mclain, RN Results Social History Tobacco [...] Telephone Encounter - Mary Mclain RN - 02/16/2020 12:32 PM EDT Relayed following critical results to pt. Per Dr Vallejo pt is to come in for platelet transfusion.Pt aware. Recent Results (from the past 72 hour(s)) [...] (External Lab) Neutrophil Abs 3,940 (External Lab) Cancer Antigen 125 Result Value Ref Range CA 125 7 CBC (with Diff) Result Value Ref Range WBC 5.81 (External Lab) Hemoglobin 9.8 (ExtL) Hematocrit 27.2 (ExtL) Platelets 8 (ExtLL) Neutrophils % 53.0 (External Lab) Neutr Abs (ANC) 3,080 (External Lab) documented in this encounter Plan of Treatment Upcoming Encounters Date Type Department Care Team (Latest Contact Info) Description 12/25/2023 9:[address] [place] [address] Xavier Malhotra MD [facility] [place] [address] 12/29/2023 Hospital Encounter Electrophysiology Lab at [place] [phone] Xavier Malhotra MD [facility] [place] [place] [address] Paroxysmal atrial fibrillation 12/29/2023 7:30 AM EDT - 12/29/2023 12:00 PM EDT Surgery [place] [phone] Xavier Malhotra MD [facility] [place] [address] ELECTROPHYSIOLOGY PROCEDURE 01/14/2024 10:40 AM EDT Office Visit Cardiology at [address] [phone] Carmen Castaneda PA [facility] [place] [place] [address] Scheduled Procedures Name Priority Associated Diagnoses Date/Ti [...] on filedocumented in this encounter Care Teams Cooler Conveyor Loader Relationship Specialty Start Date End Date Evelyne Hunt APRN [address] [place] [address] PCP - General Internal Medicine 09/23/17 documented as of this encounter
--- OUTSIDE RECORDS SUMMARY | 2023-12-01 02:15 | XMS_ITS | Encounter Summary ---
Author Organization [facility] [place] [address] Care Team Providers Care Veterinary Hospital Attendant Name Role Phone Evelyne Hunt Dat STEVEN Primary Care Provider [phone] Encounter Details Date Type Department Care Team (Late st Contact Info) Description 03/27/2020 External Results Hematology and Oncology at [place] [phone] Mary Mclain, RN Social History Tobacco Use [...] 9:[address] [place] [address] Xavier Malhotra MD [facility] [place] [place] [address] 12/29/2023 Hospital Encounter Electrophysiology Lab at [place] [phone] Xavier Malhotra MD [facility] [address] [place] [phone] Paroxysmal atrial fibrillation 12/29/2023 7:30 AM EDT - 12/29/2023 12:00 PM EDT Surgery [place] [phone] Xavier Malhotra MD [facility] [place] [address] ELECTROPHYSIOLOGY PROCEDURE 01/14/2024 10:40 AM EDT Office Visit Cardiology at [address] [phone] Carmen Castaneda PA [facility] [place] [address] Scheduled Procedures Name Priority Associated Diagnoses Date/Ti me TRANSESOPHAGEAL ECHO DURING CATH/EP PROCEDURE Paroxysmal atrial fibrillation 12/29/2023 7:30 AM EDT documented as of this encounter Goals Goal Patient Goal Type Associated Problems Recent Progress Patient-Stated? Author [facility] Medication Compliance and Understanding Patient Facing Action Plan No Lani Vargas, [facility] Note: Maintain control of disease for as long as possible as assessed by tumor marker levels and scans in clinic every 3 to 6 months documented as of this encounter Procedures Procedure Name Priority Date/Time Associated Diagnosis Comments EXTERNAL LAB CBC CMP THYROID RESULTS PANEL Routine 03/27/2020 EXTERNAL LAB CBC CMP THYROID RESULTS PANEL Routine 03/27/2020 documented in this encounter Results * CBC / CMP / Thyroid External Results (03/27/2020) Historical Provider EXTERNAL LAB TONJA SUAREZ * (ABNORMAL) CBC / CMP / Thyroid External Results (03/27/2020) White Blood Cell 6.63(Exte rnal Lab) Hemoglobin 11.8(Exte rnal Lab) Hematocrit 35.3(ExtL ) Platelet 165(Exter nal Lab) Sodium 134(ExtL) Potassium 4.1(Exter nal Lab) Chloride 101(Exter nal Lab) Carbon Dioxide 28(Bottling Supervisor al Lab) Blood Urea Nitrogen 16(Bottling Supervisor al Lab) Creatinine 0.81(Exte rnal Lab) Calcium 9.5(Exter nal Lab) Protein, Total 7.6(Exter nal Lab) Albumin 4.1(Exter nal Lab) Bilirubin, Total 0.9(Exter nal Lab) Alkaline Phosphatase 79(Bottling Supervisor al Lab) Aspartate Aminotransferase 18(Bottling Supervisor al Lab) Alanine Aminotransferase 25(Bottling Supervisor al Lab) Segmented Neutrophils Manual 67(Bottling Supervisor al Lab) Segs Absolute Manual 4,440(Ext ernal Lab) 03/27/2020 Natalie Vallejo MD EXTERNAL LAB ORDERAB LES documented in this encounter Visit Diagnoses Not on filedocumented in this encounter Care Teams Veterinary Hospital Attendant Relationship Specialty Start Date End Date Evelyne Hunt APRN [address] [place] [address] PCP - General Internal Medicine 09/23/17 documented as of this encounter
--- OUTSIDE RECORDS SUMMARY | 2023-12-01 02:15 | XMS_ITS | Encounter Summary ---
Author Organization [facility] [place] [address] Care Team Providers Care Hand Tapper Name Role Phone Evelyne Hunt Dat STEVEN Primary Care Provider [phone] Encounter Details Date Type Department Care Team (Late st Contact Info) Description 03/13/2020 External Results Hematology and Oncology at [place] [phone] Mary Mclain, RN Social History Tobacco Use [...] 9:[address] [place] [address] Xavier Malhotra MD [facility] [place] [address] 12/29/2023 Hospital Encounter Electrophysiology Lab at [place] [phone] Xavier Malhotra MD [facility] [address] [place] [phone] Paroxysmal atrial fibrillation 12/29/2023 7:30 AM EDT - 12/29/2023 12:00 PM EDT Surgery Elect[place] [phone] Xavier Malhotra MD [facility] [place] [address] ELECTROPHYSIOLOGY PROCEDURE 01/14/2024 10:40 AM EDT Office Visit Cardiology at [address] [phone] Carmen Castaneda PA [facility] [place] [address] Scheduled Procedures Name Priority Associated Diagnoses Date/Ti me TRANSESOPHAGEAL ECHO DURING CATH/EP PROCEDURE Paroxysmal atrial fibrillation 12/29/2023 7:30 AM EDT documented as of this encounter Goals Goal Patient Goal Type Associated Problems Recent Progress Patient-Stated? Author [facility] Medication Compliance and Understanding Patient Facing Action Plan Lani Love, [facility] Note: Maintain control of disease for as long as possible as assessed by tumor marker levels and scans in clinic every 3 to 6 months documented as of this encounter Procedures Procedure Name Priority Date/Time Associated Diagnosis Comments CBC (WITH DIFF) Routine 03/13/2020 CBC (WITH DIFF) Routine 03/13/2020 documented in this encounter Results * CBC (with Diff) (03/13/2020) Blood specimen (specimen) Historical Provider HEMATOLOGY ORDERA BLES * (ABNORMAL) CBC (with Diff) (03/13/2020) White Blood Cell 8.06(Exter nal Lab) Hemoglobin 11.0(ExtL) Hematocrit 32.5(ExtL) Platelet 275(Cross Tie Cutter al Lab) Neutrophil % 74.3(Exter nal Lab) ANC 5,980(Exte rnal Lab) Blood specimen (specimen) 03/13/2020 Natalie Vallejo MD HEMATOLOGY ORDERABLE S documented in this encounter Visit Diagnoses Not on filedocumented in this encounter Care Teams Hand Tapper Relationship Specialty Start Date End Date Evelyne Hunt APRN [address] [place] [address] PCP - General Internal Medicine 09/23/17 documented as of this encounter
--- OUTSIDE RECORDS SUMMARY | 2023-12-01 02:15 | XMS_ITS | Encounter Summary ---
Author Organization [facility] [place] [address] Care Team Providers Care Die Maintenance Name Role Phone Evelyne Hunt TENISHA Primary Care Provider [phone] Encounter Details Date Type Department Care Team (Late st Contact Info) Description 02/16/2020 Orders Only Gynecology [place] [address] [facility] [place] [address] Ovarian cancer, lateral, stage IIIb high-grade serous/endometrioid, [...] 9:[address] [place] [phone] [facility] ELECTROPHYSIOL [place], [place] [address] 12/29/2023 Hospital Encounter Electrophysiology [place] [phone] [facility] [place] [address] Paroxysmal atrial fibrillation 12/29/2023 7:30 AM EDT - 12/29/2023 12:00 PM EDT Surgery Electrophysiology [place] [phone] [facility] [place] [address] ELECTROPHYSIOLOGY PROCEDURE 01/14/2024 10:40 AM EDT Office Visit Cardiology at [address] [phone] [facility] [place] [address] Scheduled Procedures Name Priority Associated Diagnoses Date/Ti [...] fibrillation documented in this encounter Care Teams Die Maintenance Relationship Specialty Start Date End Date Evelyne Hunt APRN [address] [place] [address] PCP - General Internal Medicine 09/23/17 documented as of this encounter
--- OUTSIDE RECORDS SUMMARY | 2023-12-01 02:15 | XMS_ITS | Encounter Summary ---
Author [place] [address] Care Team Providers Care Fire Medic Name Role Phone Evelyne Hunt APRN Primary Care Provider [phone] Encounter Details Date Type Department Care Team (Latest Contact Info) Description 02/24/2020 10:00 AM EST - 02/24/2020 11:59 PM EST Hospital Encounter Hematology [place] [address] Ovarian cancer, lateral, stage IIIb high-grade serous/endometrioid [...] Sign Reading Time Taken Comments Blood Pressure 115/76 02/24/2020 11:52 AM EST Pulse 84 02/24/2020 11:52 AM EST Temperature 36.6 ??C (97.9 ??F) 02/24/2020 11:[address] Respiratory Rate 16 02/24/2020 11:52 AM EST Oxygen Saturation 100% 02/24/2020 11:52 AM EST Inhaled Oxygen Concentration - - Weight - - Height - - Body Mass Index - - documented in this encounter Discharge Instructions * Patient Instructions* Leeann, Cosme A, RN - 02/24/2020 10:56 AM EST [place], [place] INFORMATION FOR TRANSFUSION RECIPIENTS: You have received a transfusion of a blood product obtainedfrom a volunteer donor. Before you leave the hospital, we will carefully check for any adverse reactions. However, once you leave, please pay attention to the signs of a transfusion reaction listed on the other side of this card. Should you notice any of these symptoms or should you be worried about this transfusion for any reason, you should call or come back to the hospital. Most reactions to blood product transfusions are mild and can be easily treated. However, a mild reaction could be a warning of a more serious reaction to come. Therefore, we urge you to contact the hospital should you suspect a transfusion reactionor are worried. SIGNS AND SYMPTOMS OF A TRANSFUSION REACTION: ?? Fever ?? Chills or shaking ?? Hives, rash or itching ?? Shortness of breath or difficulty breathing ?? Dizziness or lightheadedness ?? Brown, pink, or bloody urine ?? New cough ?? Back pain (or any new and unexplainable pain) ?? Yellowing of skin or whites of the eyes (jaundice) ?? Pain or swelling at or near the transfusion site. If you discover any of these symptoms or need help, call [facility] at and ask to speak to your provider or the provider chemical radiation technician. You may also call the provider chemical radiation technician for the Blood Bank at . If you need emergency care, you should come to our Emergency Department or to any other hospital. Details of your transfusion will be available by calling [facility]. documented in this encounter Medications at Time [...] medication. 30 Doses of treatment to dispense 01/04/2020 05/05/2020 clobetasoL (TEMOVATE) 0.05 % Ointment [...] as of this encounter Progress Notes * Cosme Bradshaw RN - 02/24/2020 10:54 AM EST Patient Name: Gabi Luna Patient Age: 59 y.o. Birthdate: 1960 Admit date: 02/24/2020 Attending Physician: No att. providers found Patient is here for transfusion of 1 unit(s) of platletts. Prior to transfusion initiation, RN educated patient [...] signs or symptoms of complication. RN shared [facility] Information for Transfusion Recipients (Form [id number]) with patient via AVS. RN directed them to call clinic or hospital if any listed signs/symptoms develop within the next 24 hours, or go to the emergency department if more urgent care is needed. Patient verbalized understanding. documented in this encounter Plan of Treatment Upcoming Encounters Date Type Department Care Team (Latest Contact Info) Description 12/25/2023 9:[address] [place] [address] Xavier Malhotra MD [facility] [place] [address] 12/29/2023 Hospital Encounter [place] [address] Xavier Malhotra MD [facility] [place] [address] Paroxysmal atrial fibrillation 12/29/2023 7:30 AM EDT - 12/29/2023 12:00 PM EDT Surgery [place] [address] Xavier Malhotra MD [facility] [place] [address] ELECTROPHYSIOLOGY PROCEDURE 01/14/2024 10:40 AM EDT Office Visit Cardiology at [address] [address] Carmen Castaneda PA [facility] [place] [place] [address] Scheduled Procedures Name Priority Associated Diagnoses Date/Ti me TRANSESOPHAGEAL ECHO DURING CATH/EP PROCEDURE Paroxysmal atrial fibrillation 12/29/2023 7:30 AM EDT documented as of this encounter Goals Goal Patient Goal Type Associated Problems Recent Progress Patient-Stated? Author DH Home Medication Compliance and Understanding Patient Facing Action Plan No Lani Vargas, [facility] Note: Maintain control of disease for as long as possible as assessed by tumor marker levels and scans in clinic every 3 to 6 months documented as of this encounter Procedures Procedure Name Priority Date/Time Associated Diagnosis Comments TRANSFUSE 1 UNIT PLATELET PHERESIS Routine 02/24/2020 11:36 AM EST Ovarian cancer, lateral, stage IIIb high-grade serous/endometrioid , 07/20/2019 s/p FREDI/BSO/oment/PPALN D/RSReanstomosis PREPARE PLATELETS, APHERESIS Routine 02/24/2020 10:55 AM EST Ovarian cancer, lateral, stage IIIb high-grade serous/endometrioid , 07/20/2019 s/p FREDI/BSO/oment/PPALN D/RSReanstomosis ABORH RECHECK STATUS STAT 02/24/2020 10:15 AM EST HEMOGRAM STAT 02/24/2020 10:15 AM EST Ovarian cancer, lateral, stage IIIb high-grade serous/endometrioid , 07/20/2019 s/p FREDI/BSO/oment/PPALN D/RSReanstomosis DIFFERENTIAL, AUTOMATED STAT 02/24/2020 10:15 AM EST Ovarian cancer, lateral, stage IIIb high-grade serous/endometrioid , 07/20/2019 s/p FREDI/BSO/oment/PPALN D/RSReanstomosis ABO/RH TYPING STAT 02/24/2020 10:15 AM EST HC CBC,PLT & AUTO DIFF STAT 02/24/2020 10:15 AM EST Ovarian cancer, lateral, stage IIIb high-grade serous/endometrioid , 07/20/2019 s/p FREDI/BSO/oment/PPALN D/RSReanstomosis ANTIBODY SCREEN STAT 02/24/2020 10:15 AM EST HC ABO-MICROTITER STAT 02/24/2020 10: 15 AM EST LAB SCAN 02/24/2020 12:00 AM EST documented in this encounter Results * Transfuse 1 unit platelets, apheresis (02/24/2020 12:48 PM EST) Natalie Vallejo MD NURSING TREATMENT OR DERABLES - BLOOD ADMIN * Transfuse 1 unit platelets, apheresis (02/24/2020 12:48 PM EST) Natalie Vallejo MD NURSING TREATMENT OR DERABLES - BLOOD ADMIN * Prepare Platelets, Apheresis (02/24/2020 10:55 AM EST) Dispensed? Yes [facility] Blood specimen (specimen) 02/24/2020 10:55 AM EST 02/24/2020 10:51 AM EST Narrative Resulting Agency Comment Spec In Lab Natalie Vallejo MD BLOOD BANK PRODUCT O RDERABLES Performing Organization Address City/[facility]/ZIP Co de Phone Number [facility] [place] [address] * ABORH Recheck Status (02/24/2020 10:15 AM EST) ABORH Type Recheck Completed [facility] Blood specimen (specimen) 02/24/2020 10:15 AM EST 02/24/2020 10:36 AM EST Narrative Resulting Agency Comment Spec In Lab Natalie Vallejo MD BLOOD BANK LAB ORDER ZAMZAM Performing Organization Address City/[facility]/ZIP Co de Phone Number [facility] [place] [address] * Differential, Automated (02/24/2020 10:15 AM EST) Neutrophil % 44.5 % [facility] Neutrophil Absolute 1.93 1.70 - 6.10 x10(3)/mcL [facility] Lymph % 41.1 % [facility] Lymphocytes Abs 1.8 0.9 - 3.2 x10(3)/[facility] Monocyte % 11.8 % [facility] Monocyte Abs 0.5 0.3 - 0.9 x10(3)/[facility] Eos % 1.6 % [facility] Eosinophils Abs 0.1 0.0 - 0.4 x10(3)/[facility] Basophil % 0.5 % [facility] Baso Absolute 0.0 0.0 - 0.1 x10(3)/[facility] Immature Gran % 0.50 % [facility] Comment: Immature granulocytes(IG's)percentage and absolute count will include metamyelocytes, myelocytes, and promyelocytes. Blood smears from CBCs yielding IG's will be scanned manually for concordance. If this scan disagrees with the automated IG or if promyelocytes are noted, a manual differential will be performed. Immature Gran Absolute 0.02 0.00 - 0.04 x10(3)/[facility] Blood specimen (specimen) 02/24/2020 10:15 AM EST 02/24/2020 10:28 AM EST Narrative Resulting Agency Comment Spec In Lab Natalie Vallejo MD HEMATOLOGY ORDERABLE S [facility] [place] [address] * (ABNORMAL) Hemogram (02/24/2020 10:15 AM EST) White Blood Cell 4.3 4.0 - 9.5 x10(3)/ L [facility] Red Blood Cell 3.01(L) 4.00 - 5.21 x10(6)/ L [facility] Hemoglobin 10.0(L) 11.7 - 15.5 gm/dL [facility] Hematocrit 28.8(L) 35.7 - 45.8 % [facility] Mean Cell Volume 95.7(H) 82.6 - 94.4 fL [facility] Mean Cell Hemoglobin 33.2(H) 27.1 - 32.0 pg [facility] Mean Cell Hemoglobin Concentration 34.7 31.7 - 35.0 gm/dL [facility] Platelet 25(L) 145 - 357 x10(3)/mc L [facility] RDW Standard Deviation 49.9(H) 37.0 - 46.0 fL [facility] RDW coefficient of variation 14.2(H) 11.5 - 14.1 % [facility] Mean Platelet Volume 11.0 7.6 - 12.9 fL [facility] NRBC% auto 0.0 % [facility] NRBC Absolute 0.000 0.000 - 0.000 x10(3)/mc L [facility] Blood specimen (specimen) 02/24/2020 10:15 AM EST 02/24/2020 10:28 AM EST Narrative Resulting Agency Comment Spec In Lab Natalie Vallejo MD HEMATOLOGY ORDERABLE S [facility] [place] [address] * Antibody screen (02/24/2020 10:15 AM EST) Ab Screen Interp Negative [facility] Expires at [id number] on: 02/27/2020 [facility] Blood specimen (specimen) 02/24/2020 10:15 AM EST 02/24/2020 10:36 AM EST Narrative Resulting Agency Comment Spec In Lab Natalie Vallejo MD BLOOD BANK LAB ORDER ZAMZAM [facility] [place] [address] * ABO/Rh Typing (02/24/2020 10:15 AM EST) ABORH Type O Pos [facility] Blood specimen (specimen) 02/24/2020 10:15 AM EST 02/24/2020 10:36 AM EST Narrative Resulting Agency Comment Spec In Lab Natalie Vallejo MD BLOOD BANK LAB ORDER ZAMZAM [facility] [place] [address] * SCAN DOC: LAB (02/24/2020 12:00 AM EST) Narrative 02/24/2020 12:00 AM EST Ordered by an unspecified provider. Scanning Provider MEDIA MGR SCAN EXT O RDR/RSLT documented in this encounter Visit Diagnoses Diagnosis Ovarian cancer, lateral, stage IIIb high-grade serous/endometrioid, 07/20/2019 s/p FREDI/BSO/oment/PPALND/RSReanstomosis Paroxysmal atrial fibrillation Atrial fibrillation Paroxysmal atrial fibrillation Atrial fibrillation documented in this encounter Care Teams Fire Medic Relationship Specialty Start Date End Date Evelyne Hunt APRN [address] [place] [address] PCP - General Internal Medicine 09/23/17 documented as of this encounter
--- OUTSIDE RECORDS SUMMARY | 2023-12-01 02:15 | XMS_ITS | Encounter Summary ---
Author Organization [facility] Address [facility] [place] [address] Care Team Providers Care Sanding Machine Buffer Name Role Phone Marilee Evelyne Daugherty APRN Primary Care Provider [phone] Reason for Visit * Consultation (Routine) - Closed Specialty Diagnoses / Procedures Referred By Contac t Referred To Contact Cardiology Diagnoses Other specified symptoms and signs involving the circulatory and respiratory systems Palpitations Sick-euthyroid syndrome Other specified symptoms and signs involving the circulatory and respiratory systems, palpitations, & Sick-euthyroid syndrome *SCANNED DOCS Angie Arguello, DO [address] [place] [address] Marcos Tuore MD [facility] [place] [address] Referral ID Status Reason Start Date Expiration Date V isits Requested Visits Authorized [id number] Closed Consult, Test & [facility] Connection [facility] PCP Updated and/or Approved 01/31/2020 01/30/2021 6 6 Encounter Details Date Type Department Care Team (Late st Contact Info) Description 02/01/2020 11:20 AM EDT Office Visit Cardiology at [address] [phone] Marcos Toure MD [facility] [address] SVT (supraventricular tachycardia); Aortic valve stenosis, etiology of cardiac valve disease unspecified; Dehydration; Hypertension, unspecified type; Palpitations; Dizziness; Postural dizziness with presyncope Social History Tobacco Use Types Packs/Day Years [...] Sign Reading Time Taken Comments Blood Pressure 139/88 02/01/2020 10:15 AM EDT Pulse 95 02/01/2020 10:15 AM EDT Temperature - - Respiratory Rate - - Oxygen Saturation 99% 02/01/2020 10:15 AM EDT Inhaled Oxygen Concentration - - Weight 54 kg (119 lb) 02/01/2020 10:15 AM EDT Height 166.4 cm (5' 5.5) 02/01/2020 10:15 AM ED T Body Mass Index 19.5 02/01/2020 10:15 AM EDT documented in this encounter Patient Instructions * Patient Instructions* Praveena Bernard MD - 02/01/2020 11:20 AM EDT Start taking metoprolol succinate 50mg once daily. This will help control your heart rate. Continuediltiazem which you are already taking for SVT/ your fast heart rate. Stop taking Hydrochlorothiazide. This may be dehydrating you. It is very important for you to stay hydrated. (See below). Make an appointment with us again in 6 months to check in. Call sooner if things worsen. Let us know if your thyroid test comes back abnormal. How much water should you drink each day? It's a simple question with no easy answer. Studies have produced varying recommendations over the years. But your individual water needs depend on many factors, including your health, how active you are and where you live. No single formula fits everyone. But knowing more about your body's need for fluids will help you estimate how much water to drink each day. Health benefits of water Water is your body's principal chemical component and makes up about 60 percent of your body weight. Your body depends on water to survive. Every cell, tissue and organ in your body needs water to work properly. For example, water: Gets rid of wastes through urination, perspiration and bowel movements Keeps your temperature normal Lubricates and cushions joints Protects sensitive tissues Lack of water can lead to dehydration -- a condition that occurs when you don't have enough water in your body to carry out normal functions. Even mild dehydration can drain your energy and make you tired. How much water do you need? Every day you lose water through your breath, perspiration, urine and bowel movements. For your body to function properly, you must replenish its water supply by consuming beverages and foods that contain water. So how much fluid does the average, healthy adult living in a temperate climate need? The National Academies of Sciences, Engineering, and Medicine determined that an adequate daily fluid intake is: About 15.5 cups (3.7 liters) of fluids for men About 11.5 cups (2.7 liters) of fluids a day for women These recommendations cover fluids from water, other beverages and food. About 20 percent of daily fluid intake usually comes from food and the rest from drinks. What about the advice to drink 8 glasses a day? You've probably heard the advice, Drink eight 8-ounce glasses of water a day. That's easy to remember, and it's a reasonable goal. Most healthy people can stay hydrated by drinking water and other fluids whenever they feel thirsty. For some people, fewer than eight glasses a day might be enough. But other people might need more. Factors that influence water needs You might need to modify your total fluid intake based on several factors: Exercise. If you do any activity that makes you sweat, you need to drink extra water to cover the fluid loss. It's important to drink water before, during and after a workout. If exercise is intense and lasts more than an hour, a sports drink can replace minerals in your blood (electrolytes) lost through sweat. Environment. Hot or humid weather can make you sweat and requires additional fluid intake. Dehydration also can occur at high altitudes. Overall health. Your body loses fluids when you have a fever, vomiting or diarrhea. Drink more water or follow a doctor's recommendation to drink oral rehydration solutions. Other conditions that might require increased fluid intake include bladder infections and urinary tract stones. or breast-feeding. Women who are or breast-feeding need additional fluids to stay hydrated. The Office on Women's Health recommends that women drink about 10 cups (2.4 liters) of fluids daily and women who breast-feed consume about 13 cups (3.1 liters) of fluids a day. Beyond the tap: Other sources of water You don't need to rely only on what you drink to meet your fluid needs. What you eat also provides a significant portion. For example, many fruits and vegetables, such as watermelon and spinach, are almost 100 percent water by weight. In addition, beverages such as milk, juice and herbal teas are composed mostly of water. Even caffeinated drinks -- such as coffee and soda -- can contribute to your daily water intake. But water is your best bet because it's calorie- free, inexpensive and readily available. Sports drinks should be used only when you're exercising intensely for more than an hour. These drinks help replace electrolytes lost through perspiration and sugar needed for energy during longer bouts of exercise. Energy drinks are different from sports drinks. Energy drinks generally aren't formulated to replace electrolytes. Energy drinks also usually contain large amounts of caffeine or other stimulants, sugar, and other additives. Staying safely hydrated Your fluid intake is probably adequate if: You rarely feel thirsty Your urine is colorless or light yellow A doctor or registered dietitian can help you determine the amount of water that's right for you every day. To prevent dehydration and make sure your body has the fluids it needs, make water your beverage ofchoice. It's also a good idea to: Drink a glass of water or other calorie-free or low-calorie beverage with each meal and between each meal. Drink water before, during and after exercise. Drink water if you're feeling hungry. Thirst is often confused with hunger. Although uncommon, it's possible to drink too much water. When your kidneys can't excrete the excess water, the sodium content of your blood is diluted (hyponatremia) -- which can be life-threatening. Athletes -- especially if they participate in long or intense workouts or endurance events -- are at higher risk of hyponatremia. In general, though, drinking too much water is rare in healthy adultswho eat an average Malaysian diet. documented in this encounter Progress Notes * Praveena Brenard MD - 02/01/2020 11:20 AM EDT Images from the original note were not included. [facility] [address] CARDIOLOGY OUTPATIENT NOTE Patient: Gabi Luna Primary Care: Evelyne Hunt APRN : 1960 Referring Provider: Evelyne Hunt Date of service: 02/01/2020 Reason for visit: Follow-up for severe symptomatic palpitations and MIRANDA HISTORY OF PRESENT ILLNESS Gabi Luna is a 59 y.o. female with moderate-severe (last valve area 1.01cm2, mean gradient 39mmHg 04/2019), moderate AI, SVT, stage IIIb ovarian cancer s/p Taxol/Avastin/Carbo, now on Zeluja in remission. Ms. Luna recently visited the ER and PCP office with palpitations. She reportsthat she has felt rushes that caused her to feel as if she was going to pass out on . Rosarioo reports MIRANDA along with these palpitations. She went to the ER at first at [facility] then to her PCP's office at that time. Her HR was in the 80s- 90s. CTA was negative for PE. Her PCP was concerned about an irregular HR on pulse ox though an EKG was not done. An EKG was done the day before in the ER, and this showed sinus rhythm. She was ordered for a Holter monitor. I spoke with Dr. Subramanian who read this today- There were 15 episodes of SVT, longest 53 beats, rate 185bpm. She was dizzy in the office here on standing. Orthostatics were negative today. She began Zejula a few weeks ago as a follow-up for ovarian cancer. Currently in remission for 8 weeks. MEDICAL AND SURGICAL HISTORY Patient Active Problem List Diagnosis ??? BRCA negative no germline (heritable) mutation [...] 07/20/2019 s/p FREDI/BSO/oment/PPALND/RSReanstomosis ??? HTN (hypertension) ??? Nonrheumatic aortic valve stenosis--moderate to severe per 2019 echo (scanned docs) ??? Chest pain ??? SVT (supraventricular tachycardia) ??? Bicuspid aortic valve ??? Hypothyroidism Past Surgical History: Procedure Laterality Date ??? APPENDECTOMY 08/26/2013 ??? SECTION ??? IR MEDIPORT PLACEMENT/EXCHANGE 08/20/2019 IR Mediport Placement 08/20/2019 Jourdan Lopez, [facility] INTERVENTIONL RAD ??? PRO GINA SALP-OOPH W/OMENTECT, FREDI, RAD DISSECT N/A 07/20/2019 @HYSTERECTOMY, FREDI, BSO, DEBULKING (WRVU 34.13) performed by Natalie Vallejo MD at [facility] MAIN OR MEDICATIONS AND ALLERGIES Current Outpatient Medications Medication Sig Dispense Refill ??? niraparib (ZEJULA) capsule Take 200 mg [...] hr TK 1 T PO QAM ??? acetaminophen (Tylenol) 325 mg Tablet Take 2 tablets by mouth every 6 hours as needed for Pain.50 tablet 0 ??? ibuprofen (Advil;Motrin) 600 mg Tablet Take 1 tablet by mouth every 6 hours as needed for Pain.50 tablet 0 ??? ergocalciferol, vitamin D2, (VITAMIN D ORAL) Take by mouth daily. ??? UNABLE TO FIND daily. CBD - 25 mg ??? atorvastatin (LIPITOR) 10 mg Tablet Take 10 mg by mouth daily. ??? hydroCHLOROthiazide (HYDRODIURIL) 25 mg Tablet Take 25 mg by mouth daily. ??? dilTIAZem (CARDIZEM CD) 180 mg Capsule, Sust. Release 24 hr Take 1 capsule by mouth daily. 60 capsule 5 No current facility-administered medications for this visit. Allergies: Allergies Allergen Reactions ??? Penicillins Anaphylaxis ??? Taxol [Paclitaxel] Palpitations and Other (See Comments) 17 mls into Taxol C/O of palpitations/lower back pain.Drug stopped. Benadryl/Pepcid/Ativan given. Was able to start drug at half rate when symptoms subsided and increased rate every 30-60 mins. Was able to complete drug. SOCIAL HISTORY Social History Social History Narrative ??? Not on file FAMILY HISTORY Family History Problem Relation Age of Onset ??? Heart Disease Mother ??? Heart Disease Brother 3 brothers, all with history of ME; one with valvular disease ??? Heart Disease Maternal Grandfather ??? Ovarian Cancer Maternal Aunt 48 ??? Breast Cancer Maternal Cousin 61 recurrence at 71 ??? Breast Cancer Maternal Cousin 68 daughter had breast cancer in her 30's REVIEW OF SYSTEMS: Negative except as noted above. EXAM/ DATA: Vitals: 02/01/20 1015 BP: 139/88 Pulse: 95 SpO2: 99% Weight: 54 kg (119 lb) Height: 166.4 cm (5' 5.5) General: No acute distress, conversational, hairless from chemo HEENT: Anicteric sclera Neck: No lymphadenopathy Cardiac: tachy, regular, systolic murmur, preserved heartsounds, no rubs, or gallops, normal JVP Lungs: CTA bilaterally, no wheezes, rales, or rhonchi Abdomen: Soft, nontender, nondistended Extremities: 2+ radial pulses, no edema Prior Cardiac Studies: TTE Today SUMMARY: ?? 1. Technically limited imaging. 2. The left [...] TTE dated 05/05/19, findings appear qualitatively similar. Assessment and Plan: Gabi Luna is a 59 y.o. female with moderate-severe (last valve area 1.01cm2, mean gradient 39mmHg 04/2019), moderate AI, SVT, stage IIIb ovarian cancer s/p Taxol/Avastin/Carbo, now on Zeluja in remission. Her symptoms are likely related to paroxysmal SVT as well as dehydration with her underlying complicated physiology seen on echo. Overall her aortic stenosis and aortic insufficiency are unchanged since 04/2019 and is qualitatively moderate. Monitor yearly echo for / AI. Her echo today reveals increased gradients through the LVOT as well as mid-cavitary, likely contributing to dizziness/ orthostasis. Plans today surround controlling HR and avoiding dehydration. We will add meto prolol succinate 50mg daily (on top of diltiazem 180mg which is a long-standing med). Discontinue HCTZ as this contributes to dehydration and increased LVOT/ mid-cavitary gradients. We have also counseled Ms. Bertolini on staying hydrated. She had thyroid studies done at [facility]- if this returns abnormal, Ms. Luna will make us aware. Zeluja (new drug she is on for ovarian cancer) is not known to cause arrhythmia. We will be monitoring BP with discontinuation of HCTZ on follow-up visit in 6 months. RTC in 6 months. Call sooner if concerns. Praveena Bernard, PGY5 Cardiovascular Disease Fellow Thank you for the opportunity to participate in the care of your patient. Please don't hesitate to call with any questions. Cardiovascular Medicine Attending I have interviewed and examined the patient and reviewed the information in this note. I agree withthe details as written.?The assessment and plan were formulated in discussion with me and I agree with them as documented. Marcos Toure MD documented in this encounter Miscellaneous Notes * Addendum Note - Marcos Toure MD - 02/01/2020 11:20 AM EDTAddended by: MARCOS TOURE on: 02/07/2020 08:58 AM Modules accepted: Level of Service documented in this encounter Plan of Treatment Upcoming Encounters Date Type Department Care Team (Latest Contact Info) Description 12/25/2023 9:[address] [place] [address] Xavier Malhotra MD [facility] [place] [address] 12/29/2023 Hospital Encounter [place] [address] Xavier Malhotra MD [facility] [place] [address] Paroxysmal atrial fibrillation 12/29/2023 7:30 AM EDT - 12/29/2023 12:00 PM EDT Surgery [place] [phone] Xavier Malhotra MD [facility] [place] [address] ELECTROPHYSIOLOGY PROCEDURE 01/14/2024 10:40 AM EDT Office Visit Cardiology at [address] [place] [phone] Carmen Castaneda PA [facility] [place] [place] [address] Scheduled Procedures Name Priority Associated Diagnoses Date/Ti [...] stenosis, etiology of cardiac valve disease unspecified Dehydration Hypertension, unspecified type Palpitations Dizziness Dizziness and giddiness Postural dizziness with presyncope Paroxysmal atrial fibrillation Atrial fibrillation Paroxysmal atrial fibrillation Atrial fibrillation documented in this encounter Care Teams Sanding Machine Buffer Relationship Specialty Start Date End Date Evelyne Hunt APRN [address] [place] [address] PCP - General Internal Medicine 09/23/17 documented as of this encounter
--- OUTSIDE RECORDS SUMMARY | 2023-12-01 02:15 | XMS_ITS | Encounter Summary ---
Author Organization [facility] [place] [address] Care Team Providers Care Hot Dip Galvanizer Name Role Phone Evelyne Hunt TENISHA Primary Care Provider [phone] Encounter Details Date Type Department Care Team (Late st Contact Info) Description 02/24/2020 Orders Only Gynecology [place] [address] Natalie Vallejo MD [facility] [place] [address] Ovarian cancer, lateral, stage IIIb high-grade serous/endometrioid, [...] AM EDT Appointment [place] [phone] Xavire Malhotra MD [facility] ELECTROPHYSIOL [address] [place], [place] [id number] 12/29/2023 Hospital Encounter Electrophysiology [place] [phone] Xavier Malhotra MD [facility] [place] [address] Paroxysmal atrial fibrillation 12/29/2023 7:30 AM EDT - 12/29/2023 12:00 PM EDT Surgery Electrophysiology [place] [phone] Xavier Malhotra MD [facility] [place] [address] ELECTROPHYSIOLOGY PROCEDURE 01/14/2024 10:40 AM EDT Office Visit Cardiology at [address] [phone] Carmen Castaneda PA [facility] [place] [address] Scheduled Procedures Name Priority Associated Diagnoses Date/Ti [...] fibrillation documented in this encounter Care Teams Hot Dip Galvanizer Relationship Specialty Start Date End Date Evelyne Hunt APRN [address] [place] [address] PCP - General Internal Medicine 09/23/17 documented as of this encounter
--- OUTSIDE RECORDS SUMMARY | 2023-12-01 02:15 | XMS_ITS | Encounter Summary ---
Author Organization [facility] [place] [address] Care Team Providers Care Business Functional Analyst Name Role Phone Evelyne Hunt APRN Primary Care Provider [phone] Reason for Visit * Reason Onset Date Comments Results 02/15/2020 Encounter Details Date Type Department Care Team (Late st Contact Info) Description 02/15/2020 Telephone Gy[place] [phone] Jaqueline Doran, RN Results Social History Tobacco [...] Telephone Encounter - Jaqueline Doran RN - 02/15/2020 10:28 AM EDT Called to inform of Ca 125 of 7. Patient was so happy for this great news. Reviewed s/s bleeding like bleeding in the rectum, mouth/gums, on her port or prolonged bleeding if has a small cut. Advisedto make sure that she doesn't strain on her BM by taking a stool softener or miralax. She states that her port bled a bit after blood draw yesterday and she gets her CBC rechecked tomorrow so advisedto apply a pressure dressing to port after blood draw. States understanding of instructions. documented in this encounter Plan of Treatment Upcoming Encounters Date Type Department Care Team (Latest Contact Info) Description 12/25/2023 9:[address] Scan at [place] [phone] Xavier Malhotra MD [facility] [place] [address] 12/29/2023 Hospital Encounter Electrophysiology Lab at [address] Xavier Malhotra MD [facility] [place] [address] Paroxysmal atrial fibrillation 12/29/2023 7:30 AM EDT - 12/29/2023 12:00 PM EDT Surgery [place]rophys[place] [phone] Xavier Malhotra MD [facility] [place] [address] ELECTROPHYSIOLOGY PROCEDURE 01/14/2024 10:40 AM EDT Office Visit Cardiology at [place] [phone] Carmen Castaneda PA [facility] [place] [address] Scheduled Procedures Name Priority Associated Diagnoses Date/Ti me TRANSESOPHAGEAL ECHO DURING CATH/EP PROCEDURE Paroxysmal atrial fibrillation 12/29/2023 7:30 AM EDT documented as of this encounter Goals Goal Patient Goal Type Associated Problems Recent Progress Patient-Stated? Author [facility] Medication Compliance and Understanding Patient Facing Action Plan Lani Love, [facility] Note: Maintain control of disease for as long as possible as assessed by tumor marker levels and scans in clinic every 3 to 6 months documented as of this encounter Visit Diagnoses Not on filedocumented in this encounter Care Teams Business Functional Analyst Relationship Specialty Start Date End Date Evelyne Hunt, TENISHA [address] [place] [address] PCP - General Internal Medicine 09/23/17 documented as of this encounter
--- OUTSIDE RECORDS SUMMARY | 2023-12-01 02:15 | XMS_ITS | Encounter Summary ---
Author Organization [facility] [place] [address] Care Team Providers Care Director Telecommunications Name Role Phone Marilee, Evelyne Daugherty APRN Primary Care Provider [phone] Reason for Visit * Reason Onset Date Comments Results 02/01/2020 Encounter Details Date Type Department Care Team (Late st Contact Info) Description 02/01/2020 Telephone Hematology [place] [phone] Mary Mclain, RN Results Social History Tobacco [...] Telephone Encounter - Mary Mclain RN - 02/01/2020 3:48 PM EDT Relayed following normal results to pt Recent Results (from the past 72 hour(s)) CBC / CMP / Thyroid External Results Result Value Ref Range WBC 6.89 Hemoglobin 13.4 Hematocrit 37.9 Platelets 254 Neutrophil % 70.8 Neutrophil Abs 4,880 Echocardiogram Transthoracic([facility] or [facility]) Result Value Ref Range EF 75 documented in this encounter Plan of Treatment Upcoming Encounters Date Type Department Care Team (Latest Contact Info) Description 12/25/2023 9:[address] [place] [address] Xavier Malhotra MD [facility] [place] [address] 12/29/2023 Hospital Encounter Electrophysiology Lab at [place] [phone] Xavier Malhotra MD [facility] [place] [address] Paroxysmal atrial fibrillation 12/29/2023 7:30 AM EDT - 12/29/2023 12:00 PM EDT Surgery [place] [phone] Xavier Malhotra MD [facility] [place] [address] ELECTROPHYSIOLOGY PROCEDURE 01/14/2024 10:40 AM EDT Office Visit Cardiology at [address] [phone] Carmen Castaneda PA [facility] [place] [place] [address] Scheduled Procedures Name Priority Associated Diagnoses Date/Ti [...] filedocumented in this encounter Care Teams Director Telecommunications Relationship Specialty Start Date End Date Evelyne Hunt APRN [address] [place] [address] PCP - General Internal Medicine 09/23/17 documented as of this encounter
--- OUTSIDE RECORDS SUMMARY | 2023-12-01 02:15 | XMS_ITS | Encounter Summary ---
Author Organization [facility] [place] [address] Care Team Providers Care Sack Repairer Name Role Phone Evelyne Hunt Dat STEVEN Primary Care Provider [phone] Reason for Visit * Reason Comments Specialty Pharmacy Review Zejula Encounter Details Date Type Department Care Team (Late st Contact Info) Description 04/03/2020 Specialty [place] [phone] Erick Guzman, [facility] Social History Tobacco Use Types Packs/Day [...] encounter Progress Notes * Kennedi Soler - 04/03/2020 11:59 PM EST The [facility] has completed a benefits investigation for Gabi Luna to review their eligibility to fill at [facility]. Per patient's medication list they are prescribed ZEJULA and the medication is able to be filled at the [facility]. Fills with Pharmacy. documented in this encounter Plan of Treatment Upcoming Encounters Date Type Department Care Team (Latest Contact Info) Description 12/25/2023 9:[address] [place] [address] Xavier Malhotra MD [facility] [place] [address] 12/29/2023 Hospital Encounter Electrophysiology Lab at [address] Xavier Malhotra MD [facility] [place] [address] Paroxysmal atrial fibrillation 12/29/2023 7:30 AM EDT - 12/29/2023 12:00 PM EDT Surgery Electrophysiology Lab at [address] Xavier Malhotra MD [facility] [address] [place] [address] ELECTROPHYSIOLOGY PROCEDURE 01/14/2024 10:40 AM EDT Office Visit Cardiology at [place] [address] Carmen Castaneda PA [facility] [place] [address] Scheduled Procedures Name Priority Associated Diagnoses Date/Ti me TRANSESOPHAGEAL ECHO DURING CATH/EP PROCEDURE Paroxysmal atrial fibrillation 12/29/2023 7:30 AM EDT documented as of this encounter Goals Goal Patient Goal Type Associated Problems Recent Progress Patient-Stated? Author [facility] [place] Medication Compliance and Understanding Patient Facing Action Plan Lani Love, [facility] Note: Maintain control of disease for as long as possible as assessed by tumor marker levels and scans in clinic every 3 to 6 months documented as of this encounter Visit Diagnoses Not on filedocumented in this encounter Care Teams Sack Repairer Relationship Specialty Start Date End Date Evelyne Hunt APRN [address] [place] [address] PCP - General Internal Medicine 09/23/17 documented as of this encounter
--- OUTSIDE RECORDS SUMMARY | 2023-12-01 02:15 | XMS_ITS | Encounter Summary ---
Author Organization [facility] [place] [address] Care Team Providers Care Network Control Technician Name Role Phone Evelyne Hunt Dat STEVEN Primary Care Provider [phone] Encounter Details Date Type Department Care Team (Late st Contact Info) Description 02/16/2020 External Results Hematology and Oncology at [place] [phone] Mary Mclain, RN Social History Tobacco Use [...] 9:[address] [place] [address] Xavier Malhotra MD [facility] [place] [address] 12/29/2023 Hospital Encounter Electrophysiology Lab at [place] [phone] Xavier Malhotra MD [facility] [address] [place] [phone] Paroxysmal atrial fibrillation 12/29/2023 7:30 AM EDT - 12/29/2023 12:00 PM EDT Surgery [place]rophys[place] [phone] Xavier Malhotra MD [facility] [place] [address] ELECTROPHYSIOLOGY PROCEDURE 01/14/2024 10:40 AM EDT Office Visit Cardiology at [address] [address] Carmen Castaneda PA [facility] [place] [address] Scheduled Procedures Name Priority Associated [...] 02/16/2020 documented in this encounter Results * (ABNORMAL) CBC (with Diff) (02/16/2020) White Blood Cell 5.81(Exter nal Lab) Hemoglobin 9.8(ExtL) Hematocrit 27.2(ExtL) Platelet 8(ExtLL) Neutrophil % 53.0(Exter nal Lab) ANC 3,080(Exte rnal Lab) Blood specimen (specimen) 02/16/2020 Natalie Vallejo MD HEMATOLOGY ORDERABLE S documented in this encounter Visit Diagnoses Not on filedocumented in this encounter Care Teams Network Control Technician Relationship Specialty Start Date End Date Evelyne Hunt, [employer] [address] [place] [address] PCP - General Internal Medicine 09/23/17 documented as of this encounter
--- OUTSIDE RECORDS SUMMARY | 2023-12-01 02:15 | XMS_ITS | Encounter Summary ---
Author Organization [facility] [place] [address] Care Team Providers Care Director Physical Name Role Phone Evelyne Hunt Dat STEVEN Primary Care Provider [phone] Encounter Details Date Type Department Care Team (Late st Contact Info) Description 03/06/2020 External Results Hematology and Oncology at [place] [phone] Mary Mclain, RN Social History Tobacco Use [...] 9:[address] [place] [address] Xavier Malhotra MD [facility] [place] [address] 12/29/2023 Hospital Encounter Electrophysiology Lab at [place] [phone] Xavier Malhotra MD [facility] [address] [place] [place] [phone] Paroxysmal atrial fibrillation 12/29/2023 7:30 AM EDT - 12/29/2023 12:00 PM EDT Surgery [place] [phone] Xavier Malhotra MD [facility] [place] [address] ELECTROPHYSIOLOGY PROCEDURE 01/14/2024 10:40 AM EDT Office Visit Cardiology at [address] [address] Carmen Castaneda PA [facility] [place] [address] Scheduled Procedures Name Priority Associated [...] LAB CBC CMP THYROID RESULTS PANEL Routine 03/06/2020 EXTERNAL LAB CBC CMP THYROID RESULTS PANEL Routine 03/06/2020 documented in this encounter Results * CBC / CMP / Thyroid External Results (03/06/2020) Historical Provider EXTERNAL LAB TONJA SUAREZ * (ABNORMAL) CBC / CMP / Thyroid External Results (03/06/2020) White Blood Cell 5.92(Exte rnal Lab) Hemoglobin 10.3(ExtL ) Hematocrit 31.2(ExtL ) Platelet 306(Exter nal Lab) Sodium 138(Exter nal Lab) Potassium 3.8(Exter nal Lab) Chloride 104(Exter nal Lab) Carbon Dioxide 26(Senior Accounts Payable Specialist al Lab) Blood Urea Nitrogen 11(Senior Accounts Payable Specialist al Lab) Creatinine 0.8(Exter nal Lab) Calcium 9.1(Exter nal Lab) Protein, Total 7.4(Exter nal Lab) Albumin 3.9(Exter nal Lab) Bilirubin, Total 0.6(Exter nal Lab) Alkaline Phosphatase 81(Senior Accounts Payable Specialist al Lab) Aspartate Aminotransferase 14(ExtL) Alanine Aminotransferase 24(Senior Accounts Payable Specialist al Lab) Segmented Neutrophils Manual 65.4(Exte rnal Lab) Segs Absolute Manual 3,870(Ext ernal Lab) 03/06/2020 Natalie Vallejo MD EXTERNAL LAB ORDERAB LES documented in this encounter Visit Diagnoses Not on filedocumented in this encounter Care Teams Director Physical Relationship Specialty Start Date End Date Evelyne Hunt APRN [address] [place] [address] PCP - General Internal Medicine 09/23/17 documented as of this encounter
--- OUTSIDE RECORDS SUMMARY | 2023-12-01 02:15 | XMS_ITS | Encounter Summary ---
Author Organization [facility] [place] [address] Care Team Providers Care Public Bath Attendant Name Role Phone Marilee, Evelyne Daugherty APRN Primary Care Provider [phone] Reason for Visit * Reason Onset Date Comments Other 03/10/2020 Encounter Details Date Type Department Care Team (Late st Contact Info) Description 03/10/2020 Telephone Hematology [place] [phone] Mary Mclain RN Other Social History Tobacco Use Types [...] Telephone Encounter - Mary Mclain RN - 03/10/2020 4:32 PM EST Zejula restarted at 100 mg a day on Friday. Ivana states she is starting to feel funky. Heart racing for a few seconds then goes back to normal. pt states she would like to try taking the zejula every other day. documented in this encounter Plan of Treatment Upcoming Encounters Date Type Department Care Team (Latest Contact Info) Description 12/25/2023 9:[address] [place] [address] Xavier Malhotra MD [facility] [place] [place] [address] 12/29/2023 Hospital Encounter Electrophysiology Lab at [place] [address] Xavier Malhotra MD [facility] [place] [address] Paroxysmal atrial fibrillation 12/29/2023 7:30 AM EDT - 12/29/2023 12:00 PM EDT Surgery Electrophysiology Lab at [place] [phone] Xavier Malhotra MD [facility] [place] [address] ELECTROPHYSIOLOGY PROCEDURE 01/14/2024 10:40 AM EDT Office [place] [address] Carmen Castaneda PA [facility] [place] [address] Scheduled Procedures Name Priority Associated Diagnoses Date/Ti me TRANSESOPHAGEAL ECHO DURING CATH/EP PROCEDURE Paroxysmal atrial fibrillation 12/29/2023 7:30 AM EDT documented as of this encounter Goals Goal Patient Goal Type Associated Problems Recent Progress Patient-Stated? Author [facility] Medication Compliance and Understanding Patient Facing Action Plan Lani Love, [facility] Note: Maintain control of disease for as long as possible as assessed by tumor marker levels and scans in clinic every 3 to 6 months documented as of this encounter Visit Diagnoses Not on filedocumented in this encounter Care Teams Public Bath Attendant Relationship Specialty Start Date End Date Evelyne Hunt APRN [address] [place] [address] PCP - General Internal Medicine 09/23/17 documented as of this encounter
--- OUTSIDE RECORDS SUMMARY | 2023-12-01 02:15 | XMS_ITS | Encounter Summary ---
Author Organization [facility] [place] [address] Care Team Providers Care Assessment Specialist Name Role Phone Evelyne Hunt APRN Primary Care Provider [phone] Encounter Details Date Type Department Care Team (Late st Contact Info) Description 02/07/2020 Telephone Obstetrics [place] [phone] Ludy Valero, RN Social History Tobacco Use Types Packs/Day [...] Encounter - Ludy Valero RN - 02/07/2020 10:23 AM EDT Pt called because she has not had a BM in 3-4 days. Unable to pass gas, belly is slightly distended, pressure and pain when she sits. Patient taking Miralax once daily and a stool softener daily. Advised patient to come in for an appt. Patient declined. Advised pt go to local ER. Patient declined. Advised that she can try doing a fleet enema or bisacodyl suppository or up her Miralax to 2-3 times a day until she is able to go. But, if she has any nausea, vomiting, severe abdominal pain- she really does needs to go to the ER promptly. Patient states that she understands and agrees with that plan and will call me back if she has success or needs to go to to the ER. * Telephone Encounter - Ludy Valero RN - 02/07/2020 10:23 AM EDT ----- Message from Justina Jolly sent at 02/07/2020 9:23 AM EDT ----- Regarding: BM The above patient called and would like a call back at [phone] or [phone]. Extremely uncomfortable has not been able to have a bowel movement, has tried just about everything Thank you, Justina documented in this encounter Plan of Treatment Upcoming Encounters Date Type Department Care Team (Latest Contact Info) Description 12/25/2023 9:[address] [place] [address] Xavier Malhotra MD [facility] [place] [address] 12/29/2023 Hospital Encounter [place] [address] Xavier Malhotra MD [facility] [place] [address] Paroxysmal atrial fibrillation 12/29/2023 7:30 AM EDT - 12/29/2023 12:00 PM EDT Surgery [place] [phone] Xavier Malhotra MD [facility] [place] [address] ELECTROPHYSIOLOGY PROCEDURE 01/14/2024 10:40 AM EDT Office Visit Cardiology at [address] [address] Carmen Castaneda PA [facility] [place] [address] Scheduled Procedures Name Priority Associated Diagnoses Date/Ti me TRANSESOPHAGEAL ECHO DURING CATH/EP PROCEDURE Paroxysmal atrial fibrillation 12/29/2023 7:30 AM EDT documented as of this encounter Goals Goal Patient Goal Type Associated Problems Recent Progress Patient-Stated? Author [facility] Medication Compliance and Understanding Patient Facing Action Plan No Lani Vargas, [facility] Note: Maintain control of disease for as long as possible as assessed by tumor marker levels and scans in clinic every 3 to 6 months documented as of this encounter Visit Diagnoses Not on filedocumented in this encounter Care Teams Assessment Specialist Relationship Specialty Start Date End Date Evelyne Hunt APRN [address] [place] [address] PCP - General Internal Medicine 09/23/17 documented as of this encounter
--- OUTSIDE RECORDS SUMMARY | 2023-12-01 02:15 | XMS_ITS | Encounter Summary ---
Author Organization [facility] [place] [address] Care Team Providers Care Hot Knife Cutter Name Role Phone Kiki Huntyce Dat STEVEN Primary Care Provider [phone] Reason for Visit * Reason Comments Medication Refill Encounter Details Date Type Department Care Team (Late st Contact Info) Description 03/09/2020 Specialty [place] [phone] Lani Vargas [facility] Social History Tobacco [...] Progress Notes * Lani Coats RPH - 03/09/2020 9:19 AM EST Clinical Management Plan: Refill Specialty Pharmacy Consultation; Lani Coats Red Comprehensive Medication Management (CMM) Gabi Benitoyvonne Ms. Gabi Luna is a 59 y.o. (1960) female who was contacted in regard to a specialty medication refill reminder. Spoke with patient regarding Zejula. A review of the medication therapy was performed. The medication was Refilled as scheduled, and all medication related questions and concerns were addressed. The specialty pharmacy staff will follow up with the patient 5-7 days prior to next refill. Was a change made to the Care Plan: yes - dose reduced temporarily per clinic instructions due to low platelets If yes, should the medication be held: No Assessment and Recommendations: Title Type of Medication [...] complete drug. Medication Reconciliation Discrepancies (compared to [facility] med list) none New medications: no New medical conditions: no New allergies: no Adherence: Medication Adherence Patient reported X missed [...] Refills needed for supportive medications: not needed Are you experiencing any side effects from your medications? no Pt understands no changes to current drug regimen were made at the appointment and that [facility] is providing recommendations (summary located at top of note) for provider review and follow up. Lani Coats RPH 03/09/20 9:22 AM documented in this encounter Plan of Treatment Upcoming Encounters Date Type Department Care Team (Latest Contact Info) Description 12/25/2023 9:[address] [place] [place] [phone] Xavier Malhotra MD [facility] [place] [address] 12/29/2023 Hospital Encounter [place] [address] Xavier Malhotra MD [facility] [place] [address] Paroxysmal atrial fibrillation 12/29/2023 7:30 AM EDT - 12/29/2023 12:00 PM EDT Surgery [place] [address] Xavier Malhotra MD [facility] [place] [address] ELECTROPHYSIOLOGY PROCEDURE 01/14/2024 10:40 AM EDT Office Visit Cardiology at [address] [phone] Carmen Castaneda PA [facility] [place] [address] Scheduled Procedures Name Priority Associated Diagnoses Date/Ti [...] filedocumented in this encounter Care Teams Hot Knife Cutter Relationship Specialty Start Date End Date Evelyne Hunt APRN [address] [place] [address] PCP - General Internal Medicine 09/23/17 documented as of this encounter
--- OUTSIDE RECORDS SUMMARY | 2023-12-01 02:15 | XMS_ITS | Encounter Summary ---
Author Organization [facility] [place] [address] Care Team Providers Care Wall Attendant Name Role Phone Evelyne Hunt Dat STEVEN Primary Care Provider [phone] Encounter Details Date Type Department Care Team (Late st Contact Info) Description 02/08/2020 External Results Hematology and Oncology at [place] [phone] Mary Mclain, RN Social History Tobacco Use [...] 9:[address] [place] [address] Xavier Malhotra MD [facility] [place] [address] 12/29/2023 Hospital Encounter Electrophysiology Lab at [place] [phone] Xavier Malhotra MD [facility] [address] [place] [phone] Paroxysmal atrial fibrillation 12/29/2023 7:30 AM EDT - 12/29/2023 12:00 PM EDT Surgery [place] [address] Xavier Malhotra MD [facility] [place] [address] ELECTROPHYSIOLOGY PROCEDURE 01/14/2024 10:40 AM EDT Office Visit Cardiology at [address] [address] Carmen Castaneda PA [facility] [place] [address] Scheduled Procedures Name Priority Associated Diagnoses Date/Ti me TRANSESOPHAGEAL ECHO DURING CATH/EP PROCEDURE Paroxysmal atrial fibrillation 12/29/2023 7:30 AM EDT documented as of this encounter Goals Goal Patient Goal Type Associated Problems Recent Progress Patient-Stated? Author [facility] Medication Compliance and Understanding Patient Facing Action Plan Lani Love, [facility] Note: Maintain control of disease for as long as possible as assessed by tumor marker levels and scans in clinic every 3 to 6 months documented as of this encounter Procedures Procedure Name Priority Date/Time Associated Diagnosis Comments EXTERNAL LAB CBC CMP THYROID RESULTS PANEL Routine 02/08/2020 documented in this encounter Results * (ABNORMAL) CBC / CMP / Thyroid External Results (02/08/2020) White Blood Cell 5.87(Exte rnal Lab) Hemoglobin 11.5(Exte rnal Lab) Hematocrit 32.2(ExtL ) Platelet 128(ExtL) Sodium 133(ExtL) Potassium 3.5(Exter nal Lab) Chloride 97(ExtL) Carbon Dioxide 29(Motorcycle Mechanic al Lab) Blood Urea Nitrogen 16(Motorcycle Mechanic al Lab) Creatinine 0.9(Exter nal Lab) Calcium 9.3(Exter nal Lab) Protein, Total 7.3(Exter nal Lab) Albumin 3.8(Exter nal Lab) Bilirubin, Total 1.1(ExtH) Alkaline Phosphatase 82(Motorcycle Mechanic al Lab) Aspartate Aminotransferase 27(Motorcycle Mechanic al Lab) Alanine Aminotransferase 35(Motorcycle Mechanic al Lab) Segmented Neutrophils Manual 64.5(Exte rnal Lab) Segs Absolute Manual 3,780(Ext L) 02/08/2020 Natalie Vallejo MD EXTERNAL LAB ORDERAB LES documented in this encounter Visit Diagnoses Not on filedocumented in this encounter Care Teams Wall Attendant Relationship Specialty Start Date End Date Evelyne Hunt, CONTENT DEVELOPMENT SPECIALIST [address] [place] [address] PCP - General Internal Medicine 09/23/17 documented as of this encounter
--- OUTSIDE RECORDS SUMMARY | 2023-12-01 02:15 | XMS_ITS | Encounter Summary ---
Author Organization [facility] [place] [address] Care Team Providers Care Hitting Coach Name Role Phone Marilee, Evelyne Dat STEVEN Primary Care Provider [phone] Reason for Visit * Reason Onset Date Comments Bleeding/Bruising 02/24/2020 Encounter Details Date Type Department Care Team (Late st Contact Info) Description 02/24/2020 Telephone [place] [phone] Jaqueline Doran RN Bleeding/Bruising Social History Tobacco Use Types Packs/Day Years [...] Telephone Encounter - Jaqueline Doran RN - 02/24/2020 8:21 AM EST Spoke with patient who states that last night she woke up with mouth bleeding and this morning had clots in her mouth. She states that when she was in the [facility] ED her plt was 21. Consulted with Dr. Vallejo and she recommends bringing the patient in 3K for plt transfusion. Spoke with kim Hurtado RN in 3K and patient will be scheduled harriett. Called patient with instructions to be here for plt transfusion harriett. She agrees with this plan. documented in this encounter Plan of Treatment Upcoming Encounters Date Type Department Care Team (Latest Contact Info) Description 12/25/2023 9:[address] Scan at [place] [phone] Xavier Malhotra MD [facility] E[place] [address] 12/29/2023 Hospital Encounter [place] [phone] Xavier Malhotra MD [facility] [place] [address] Paroxysmal atrial fibrillation 12/29/2023 7:30 AM EDT - 12/29/2023 12:00 PM EDT Surgery [place] [phone] Xavier Malhotra MD [facility] [place] [address] ELECTROPHYSIOLOGY PROCEDURE 01/14/2024 10:40 AM EDT Office Visit Cardiology at [address] [phone] Carmen Castaneda PA [facility] [place] [address] Scheduled Procedures Name Priority Associated Diagnoses Date/Ti me TRANSESOPHAGEAL ECHO DURING CATH/EP PROCEDURE Paroxysmal atrial fibrillation 12/29/2023 7:30 AM EDT documented as of this encounter Goals Goal Patient Goal Type Associated Problems Recent Progress Patient-Stated? Author [facility] Medication Compliance and Understanding Patient Facing Action Plan Lani Love, [facility] Note: Maintain control of disease for as long as possible as assessed by tumor marker levels and scans in clinic every 3 to 6 months documented as of this encounter Visit Diagnoses Not on filedocumented in this encounter Care Teams Hitting Coach Relationship Specialty Start Date End Date Evelyne Hunt APRN [address] [place] [address] PCP - General Internal Medicine 09/23/17 documented as of this encounter
--- OUTSIDE RECORDS SUMMARY | 2023-12-01 02:15 | XMS_ITS | Encounter Summary ---
Author Organization [facility] [place] [address] Care Team Providers Care Automobile Mechanic Name Role Phone Evelyne Hunt Dat STEVEN Primary Care Provider [phone] Encounter Details Date Type Department Care Team (Late st Contact Info) Description 02/18/2020 External Results Hematology and Oncology at [place] [phone] Mary Mclain, RN Social History Tobacco Use [...] 9:[address] [place] [address] Xavier Malhotra MD [facility] [place] [address] 12/29/2023 Hospital Encounter Electrophysiology Lab at [place] [phone] Xavier Malhotra MD [facility] [address] [place] [phone] Paroxysmal atrial fibrillation 12/29/2023 7:30 AM EDT - 12/29/2023 12:00 PM EDT Surgery [place] [phone] Xavier Malhotra MD [facility] [place] [address] ELECTROPHYSIOLOGY PROCEDURE 01/14/2024 10:40 AM EDT Office Visit Cardiology at [address] [phone] Carmen Castaneda PA [facility] [place] [address] Scheduled Procedures Name Priority Associated Diagnoses Date/Ti me TRANSESOPHAGEAL ECHO DURING CATH/EP PROCEDURE Paroxysmal atrial fibrillation 12/29/2023 7:30 AM EDT documented as of this encounter Goals Goal Patient Goal Type Associated Problems Recent Progress Patient-Stated? Author [facility] Medication Compliance and Understanding Patient Facing Action Plan No Lani Vargas, [facility] Note: Maintain control of disease for as long as possible as assessed by tumor marker levels and scans in clinic every 3 to 6 months documented as of this encounter Procedures Procedure Name Priority Date/Time Associated Diagnosis Comments CBC (WITH DIFF) Routine 02/18/2020 CBC (WITH DIFF) Routine 02/18/2020 documented in this encounter Results * CBC (with Diff) (02/18/2020) Blood specimen (specimen) Historical Provider HEMATOLOGY ORDERA BLES * (ABNORMAL) CBC (with Diff) (02/18/2020) White Blood Cell 4.8(Seasonal Clerk al Lab) Hemoglobin 9.3(ExtL) Hematocrit 26.2(ExtL) Platelet 50(ExtL) Neutrophil % 44.3(Exter nal Lab) ANC 2,120(Exte rnal Lab) Blood specimen (specimen) 02/18/2020 Natalie Vallejo MD HEMATOLOGY ORDERABLE S documented in this encounter Visit Diagnoses Not on filedocumented in this encounter Care Teams Automobile Mechanic Relationship Specialty Start Date End Date Evelyne Hunt APRN [address] [place] [address] PCP - General Internal Medicine 09/23/17 documented as of this encounter
--- OUTSIDE RECORDS SUMMARY | 2023-12-01 02:15 | XMS_ITS | Encounter Summary ---
Author Organization [facility] [place] [address] Care Team Providers Care Payroll Human Resources Assistant Name Role Phone Kiki Huntyce Dat STEVEN Primary Care Provider [phone] Encounter Details Date Type Department Care Team (Late st Contact Info) Description 03/01/2020 Telephone [place] [address] Akanksha Álvarez Social History Tobacco Use Types Packs/Day Years [...] 9:[address] [place] [address] Xavier Malhotra MD [facility] [place] [address] 12/29/2023 Hospital Encounter [place] [address] Xavier Malhotra MD [facility] [place] [address] Paroxysmal atrial fibrillation 12/29/2023 7:30 AM EDT - 12/29/2023 12:00 PM EDT Surgery [place] [phone] Xavier Malhotra MD [facility] [place] [address] ELECTROPHYSIOLOGY PROCEDURE 01/14/2024 10:40 AM EDT Office Visit Cardiology at [address] [phone] Carmen Castaneda PA [facility] CARDIOLOGY [place], [place] [phone] Scheduled Procedures Name Priority Associated Diagnoses Date/Ti me TRANSESOPHAGEAL ECHO DURING CATH/EP PROCEDURE Paroxysmal atrial fibrillation 12/29/2023 7:30 AM EDT documented as of this encounter Goals Goal Patient Goal Type Associated Problems Recent Progress Patient-Stated? Author [facility] Medication Compliance and Understanding Patient Facing Action Plan No Lani Vargas, [facility] Note: Maintain control of disease for as long as possible as assessed by tumor marker levels and scans in clinic every 3 to 6 months documented as of this encounter Visit Diagnoses Not on filedocumented in this encounter Care Teams Payroll Human Resources Assistant Relationship Specialty Start Date End Date Evelyne Hunt APRN [address] [facility] [place] [address] PCP - General Internal Medicine 09/23/17 documented as of this encounter
--- OUTSIDE RECORDS SUMMARY | 2023-12-01 02:15 | XMS_ITS | Encounter Summary ---
Author Organization [facility] [place] [address] Care Team Providers Care Manager Trade Marketing Name Role Phone Evelyne Hunt Dat STEVEN Primary Care Provider [phone] Encounter Details Date Type Department Care Team (Late st Contact Info) Description 02/15/2020 External Results [place] [address] Natalie Vallejo MD [facility] [place] [address] Social History Tobacco Use Types [...] 9:[address] [place] [place] [address] Xavier Malhotra MD [facility] [place] [address] 12/29/2023 Hospital Encounter [place] [address] Xavier Malhotra MD [facility] [place] [address] Paroxysmal atrial fibrillation 12/29/2023 7:30 AM EDT - 12/29/2023 12:00 PM EDT Surgery [place] [address] Xavier Malhotra MD [facility] [place] [address] ELECTROPHYSIOLOGY PROCEDURE 01/14/2024 10:40 AM EDT Office Visit Cardiology at [address] [address] Carmen Castaneda PA [facility] [place] [address] Scheduled Procedures Name Priority Associated Diagnoses Date/Ti [...] Associated Diagnosis Comments CANCER ANTIGEN 125 Routine 02/14/2020 CANCER ANTIGEN 125 Routine 02/08/2020 documented in this encounter Results * Cancer Antigen 125 (02/14/2020) CA 125 7 Blood specimen (specimen) 02/14/2020 Natalie Vallejo MD CHEMISTRY ORDERABLES * Cancer Antigen 125 (02/08/2020) Blood specimen (specimen) Natalie Vallejo MD CHEMISTRY ORDERABLES documented in this encounter Visit Diagnoses Not on filedocumented in this encounter Care Teams Manager Trade Marketing Relationship Specialty Start Date End Date Evelyne Hunt APRN [address] [place] [address] PCP - General Internal Medicine 09/23/17 documented as of this encounter
--- OUTSIDE RECORDS SUMMARY | 2023-12-01 02:15 | XMS_ITS | Encounter Summary ---
Author Organization [facility] [place] [address] Care Team Providers Care Television Program Director Name Role Phone Evelyne Hunt APRN Primary Care Provider [phone] Reason for Visit * Reason Onset Date Comments Results 02/08/2020 Encounter Details Date Type Department Care Team (Late st Contact Info) Description 02/08/2020 Telephone H[place] [phone] Mary Mclain, RN Results Social History Tobacco [...] Telephone Encounter - Mary Mclain RN - 02/08/2020 2:27 PM EDT Relayed following satisfactory results to pt Recent Results (from the past 72 hour(s)) CBC / CMP / Thyroid External Results Result Value Ref Range WBC 5.87 (External Lab) Hemoglobin 11.5 (External Lab) Hematocrit 32.2 (ExtL) Platelets 128 (ExtL) Sodium 133 (ExtL) Potassium 3.5 (External Lab) Chloride 97 (ExtL) CO2 29 (External Lab) BUN 16 (External Lab) Creatinine 0.9 (External Lab) Calcium 9.3 (External Lab) Total Protein 7.3 (External Lab) Albumin 3.8 (External Lab) Total Bilirubin 1.1 (ExtH) Alk Phos 82 (External Lab) AST 27 (External Lab) ALT 35 (External Lab) Neutrophil % 64.5 (External Lab) Neutrophil Abs 3,780 (ExtL) documented in this encounter Plan of Treatment Upcoming Encounters Date Type Department Care Team (Latest Contact Info) Description 12/25/2023 9:[address] Scan at [place] [phone] Xavier Malhotra MD [facility] [place] [address] 12/29/2023 Hospital Encounter Elect[place] [address] Xavier Malhotra MD [facility] [place] [address] Paroxysmal atrial fibrillation 12/29/2023 7:30 AM EDT - 12/29/2023 12:00 PM EDT Surgery Electrophysiology Lab at [place] [phone] Xavier Malhotra MD [facility] [place] [address] ELECTROPHYSIOLOGY PROCEDURE 01/14/2024 10:40 AM EDT Office Visit Cardiology at [address] [phone] Carmen Castaneda PA [facility] [place] [address] Scheduled Procedures Name Priority Associated Diagnoses Date/Ti me TRANSESOPHAGEAL ECHO DURING CATH/EP PROCEDURE Paroxysmal atrial fibrillation 12/29/2023 7:30 AM EDT documented as of this encounter Goals Goal Patient Goal Type Associated Problems Recent Progress Patient-Stated? Author [facility] Medication Compliance and Understanding Patient Facing Action Plan No Lani Vargas, [facility] Note: Maintain control of disease for as long as possible as assessed by tumor marker levels and scans in clinic every 3 to 6 months documented as of this encounter Visit Diagnoses Not on filedocumented in this encounter Care Teams Television Program Director Relationship Specialty Start Date End Date Evelyne Hunt, TENISHA Karen[address] [place] [address] PCP - General Internal Medicine 09/23/17 documented as of this encounter
--- OUTSIDE RECORDS SUMMARY | 2023-12-01 02:16 | XMS_ITS | Encounter Summary ---
Author Organization [facility] [place] [address] Care Team Providers Care Corrugated Fastener Driver Name Role Phone Kiki Huntyce Dat STEVEN Primary Care Provider [phone] Reason for Visit * Reason Onset Date Comments Proteinuria 11/23/2019 Encounter Details Date Type Department Care Team (Late st Contact Info) Description 11/23/2019 Telephone Hematology [place] [phone] Mary Mclain, RN Proteinuria Social History Tobacco Use Types Packs/Day Years [...] Miscellaneous Notes * Telephone Encounter - Mary Mclain, RN - 11/23/2019 8:31 AM EDT Pt calls very emotional about not being able to get her avastin yesterday due to proteinuria. Pt has many questions related to this. Asking if it means her cancer is worse. Asking if she can do anything or take anything to reverse the proteinuria. Pt reassurance provided. She will make sure she is getting plenty of po fluids. Ivana states understanding and agrees. Also, asking if her can come in to her last appointment with her. 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 documented in this encounter Plan of Treatment Upcoming Encounters Date Type Department Care Team (Latest Contact Info) Description 12/25/2023 9:[address] Scan at [place] [phone] Xavier Malhotra MD [facility] [place] [address] 12/29/2023 Hospital Encounter Electrophysiology Lab at [place] [phone] Xavier Malhotra MD [facility] [place] [address] Paroxysmal atrial fibrillation 12/29/2023 7:30 AM EDT - 12/29/2023 12:00 PM EDT Surgery Electrophysiology Lab at [place] [phone] Xavier Malhotra MD [facility] [place] [address] ELECTROPHYSIOLOGY PROCEDURE 01/14/2024 10:40 AM EDT Office Visit Cardiology at [address] [phone] Carmen Castaneda PA [facility] [place] [address] Scheduled Procedures Name Priority Associated Diagnoses Date/Ti me TRANSESOPHAGEAL ECHO DURING CATH/EP PROCEDURE Paroxysmal atrial fibrillation 12/29/2023 7:30 AM EDT documented as of this encounter Visit Diagnoses Not on filedocumented in this encounter Care Teams Corrugated Fastener Driver Relationship Specialty Start Date End Date Evelyne Hunt APRN [address] [place] [address] PCP - General Internal Medicine 09/23/17 documented as of this encounter
--- OUTSIDE RECORDS SUMMARY | 2023-12-01 02:16 | XMS_ITS | Encounter Summary ---
Author [facility] [place] [address] Care Team Providers Care Automotive Sales Manager Name Role Phone Marilee Evelyne Dat STEVEN Primary Care Provider [phone] Reason for Visit * Reason Onset Date Comments Results 11/18/2019 Encounter Details Date Type Department Care Team (Late st Contact Info) Description 11/18/2019 Telephone Gynecology [place] [phone] Jaqueline Doran, RN Results Social History Tobacco [...] Telephone Encounter - Jaqueline Doran RN - 11/18/2019 4:34 PM EDT Called to inform that CBC results are fine. K 3.4. Advised to eat banana, potato/skin, oranges. Encouraged to call for any questions. Recent Results (from the past 72 hour(s)) CBC / CMP / Thyroid External Results Result Value Ref Range WBC 3.72 RBC 3.34 Hemoglobin 11.9 Hematocrit 34.0 Platelets 224 Sodium 135 Potassium 3.4 Chloride 98 CO2 28 BUN 10 Creatinine 0.61 Glucose Lvl 108 Calcium 9.4 Total Protein 7.5 Albumin 3.9 Total Bilirubin 0.8 Alk Phos 75 AST 18 ALT 28 Neutr Abs (ANC) 1.92 documented in this encounter Plan of Treatment Upcoming Encounters Date Type Department Care Team (Latest Contact Info) Description 12/25/2023 9:[address] Scan at [place] [address] Xavier Malhotra MD [facility] [place] [address] 12/29/2023 Hospital Encounter Electrophysiology Lab at [place] [address] Xavier Malhotra MD [facility] [place] [address] Paroxysmal atrial fibrillation 12/29/2023 7:30 AM EDT - 12/29/2023 12:00 PM EDT Surgery Electrophysiology Lab at [place] [address] Xavier Malhotra MD [facility] [place] [address] ELECTROPHYSIOLOGY PROCEDURE 01/14/2024 10:40 AM EDT Office Visit Cardiology at [place] [address] Carmen Castaneda PA [facility] [place] [place] [address] Scheduled Procedures Name Priority Associated Diagnoses Date/Ti me TRANSESOPHAGEAL ECHO DURING CATH/EP PROCEDURE Paroxysmal atrial fibrillation 12/29/2023 7:30 AM EDT documented as of this encounter Visit Diagnoses Not on filedocumented in this encounter Care Teams Automotive Sales Manager Relationship Specialty Start Date End Date Evelyne Hunt APRN [address] [place] [address] PCP - General Internal Medicine 09/23/17 documented as of this encounter
--- OUTSIDE RECORDS SUMMARY | 2023-12-01 02:16 | XMS_ITS | Encounter Summary ---
Author Organization [facility] [place] [address] Care Team Providers Care Heating Equipment Installer Name Role Phone Evelyne Hunt APRN Primary Care Provider [phone] Reason for Visit * Reason Onset Date Comments Results 12/10/2019 Encounter Details Date Type Department Care Team (Late st Contact Info) Description 12/10/2019 Telephone Hematology [place] [phone] Mary Mclain, RN Results Social History Tobacco [...] Telephone Encounter - Mary Mclain RN - 12/10/2019 11:15 AM EDT Relayed following satisfactory results to pt. Recent Results (from the past 72 hour(s)) CBC / CMP / Thyroid External Results Result Value Ref Range WBC 4.3 (ExtL) Hemoglobin 12.0 (External Lab) Hematocrit 33.6 (ExtL) Platelets 165 (External Lab) Sodium 138 (External Lab) Potassium 3.5 (External Lab) Chloride 99 (External Lab) CO2 28 (External Lab) BUN 12 (External Lab) Creatinine 0.59 (External Lab) Calcium 9.5 (External Lab) Total Protein 7.9 (External Lab) Albumin 4.0 (External Lab) Total Bilirubin 0.8 (External Lab) Alk Phos 76 (External Lab) AST 20 (External Lab) ALT 30 (External Lab) Neutrophil % 54.9 (External Lab) Neutrophil Abs 2,360 (External Lab) documented in this encounter Plan of Treatment Upcoming Encounters Date Type Department Care Team (Latest Contact Info) Description 12/25/2023 9:[address] [place] [phone] Xavier Malhotra MD [facility] [place] [address] 12/29/2023 Hospital Encounter Electrophysiology Lab at [place] [phone] Xavier Malhotra MD [facility] [place] [address] Paroxysmal atrial fibrillation 12/29/2023 7:30 AM EDT - 12/29/2023 12:00 PM EDT Surgery Electrophysiology Lab at [place] [phone] Xavier Malhotra MD [facility] [place] [address] ELECTROPHYSIOLOGY PROCEDURE 01/14/2024 10:40 AM EDT Office Visit Cardiology at [address] [phone] Carmen Castaneda PA [facility] [place] [address] Scheduled Procedures Name Priority Associated Diagnoses Date/Ti me TRANSESOPHAGEAL ECHO DURING CATH/EP PROCEDURE Paroxysmal atrial fibrillation 12/29/2023 7:30 AM EDT documented as of this encounter Visit Diagnoses Not on filedocumented in this encounter Care Teams Heating Equipment Installer Relationship Specialty Start Date End Date Evelyne Hunt APRN [address] [place] [address] PCP - General Internal Medicine 09/23/17 documented as of this encounter
--- OUTSIDE RECORDS SUMMARY | 2023-12-01 02:16 | XMS_ITS | Encounter Summary ---
Author Organization [facility] [place] [address] Care Team Providers Care Electrical Discharge Machine Operator Name Role Phone Evelyne Hunt Dat STEVEN Primary Care Provider [phone] Encounter Details Date Type Department Care Team (Late st Contact Info) Description 12/20/2019 External Results Hematology and Oncology at [place] [phone] Mary Mclain, RN Social History Tobacco Use [...] 9:[address] [place] [address] Xavier Malhotra MD [facility] [place] [address] 12/29/2023 Hospital Encounter Electrophysiology Lab at [place] [phone] Xavier Malhotra MD [facility] [address] [place] [phone] Paroxysmal atrial fibrillation 12/29/2023 7:30 AM EDT - 12/29/2023 12:00 PM EDT Surgery [place] [phone] Xavier Malhotra MD [facility] [place] [address] ELECTROPHYSIOLOGY PROCEDURE 01/14/2024 10:40 AM EDT Office Visit Cardiology at [address] [phone] Carmen Castaneda PA [facility] [place] [address] Scheduled Procedures Name Priority Associated Diagnoses Date/Ti me TRANSESOPHAGEAL ECHO DURING CATH/EP PROCEDURE Paroxysmal atrial fibrillation 12/29/2023 7:30 AM EDT documented as of this encounter Procedures Procedure Name Priority Date/Time Associated Diagnosis Comments CBC (WITH DIFF) Routine 12/20/2019 CBC (WITH DIFF) Routine 12/20/2019 documented in this encounter Results * CBC (with Diff) (12/20/2019) Blood specimen (specimen) Historical Provider HEMATOLOGY ORDERA BLES * (ABNORMAL) CBC (with Diff) (12/20/2019) White Blood Cell 5.03(Exter nal Lab) Hemoglobin 11.2(Exter nal Lab) Hematocrit 31.0(ExtL) Platelet 135(Independent Crop Consultant al Lab) Neutrophil % 66.4(Exter nal Lab) ANC 3,340(Exte rnal Lab) Blood specimen (specimen) 12/20/2019 Natalie Vallejo MD HEMATOLOGY ORDERABLE S documented in this encounter Visit Diagnoses Not on filedocumented in this encounter Care Teams Electrical Discharge Machine Operator Relationship Specialty Start Date End Date Evelyne Hunt, MATERIAL LIAISON [address] [place] [address] PCP - General Internal Medicine 09/23/17 documented as of this encounter
--- OUTSIDE RECORDS SUMMARY | 2023-12-01 02:16 | XMS_ITS | Encounter Summary ---
Author Organization [facility] Address [facility] [place] [address] Care Team Providers Care Couture Alterations Dressmaker Name Role Phone Evelyne Hunt APRN Primary Care Provider [phone] Encounter Details Date Type Department Care Team (Latest Contact Info) Description 01/03/2020 9:30 AM EDT TH Visit (TeleHealth) [place] [phone] Pasquale Mederos MD [facility] [place] [address] Ovarian cancer, unspecified laterality Social History Tobacco [...] - Inhaled Oxygen Concentration - - Weight 54.4 kg (120 lb) 12/29/2019 11:08 AM EDT Height 164.4 cm (5' 4.72) 12/29/2019 11:08 AM E DT Body Mass Index 20.14 12/29/2019 11:08 AM EDT documented in this encounter Progress Notes * Eleni Macrial LNA - 01/03/2020 9:30 AM EDT ____ _x___Patient reached and the following information was reviewed/obtained per protocol. x___Confirmed patient name and date of ___Confirmed tele med appt (Virtual visit) is downloaded and functioning _x__Confirmed location of patient- TeleVisit is taking place in [place]__ If not on [facility], working on signing up for my DH Confirmed has completed any pre-visit questionnaires If has not received required previsit questionnaires, send via [facility] x___Reviewed medications, allergies, pharmacy, pain, education x___Documented height/weight Other information or concerns: Please use land line for phone call visit [phone] * Pasquale Mederos MD - 01/03/2020 9:30 AM EDT Division [place] [address] post-chemotherapy Visit: [id number] Patient Active Problem List Diagnosis Code ??? Hypothyroidism E03.9 ??? SVT (supraventricular tachycardia) I47.1 ??? Bicuspid aortic valve Q23.1 ??? Chest pain R07.9 ??? Nonrheumatic aortic valve stenosis--moderate to severe per 2019 echo (scanned docs) I35.0 ??? HTN (hypertension) I10 ??? 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 BRCA negative Z13.71 Reason for visit: Gabi Smithpérezyvonne is seen today in anticipation of chemotherapy clearance for primary ovarian cancer. This visit was done on the telephone due to the COVID 19 pandemic. Oncology history: Stage IIIb mixed endometrioid and [...] PALB2, RAD51C, RAD51D, BRCA1, BRCA2 (sequencing only). ?? Subjective: Gabi Luna has completed 6 cycles of Taxol/Carbo/Avastin chemotherapy. She did well with herlast cycle and had no issues. She feels that she is recovering well from chemo and feels quite good. 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 She is hopeful to update her vaccinations as well. Her hair has started to regrow and her appetite is good. Her energy is significantly improving. Objective: Vitals: 12/29/19 1108 Weight: 54.4 kg (120 lb) Height: 164.4 cm (5' 4.72) Body mass index is 20.14 kg/m??. Body surface area is 1.58 meters squared. GOG performance status= 0 EXAMINATION: CT CHEST ABDOMEN PELVIS W CONTRAST (GENERIC) ?? CLINICAL HISTORY: Ovarian cancer, assess treatment response Status post total abdominal hysterectomy, bilateral salpingo-oophorectomy, omentectomy, rectosigmoid resection and lymph node dissection on 07/20/2019. Now status post completion of chemotherapy. End of treatment scan ?? TECHNIQUE: Helical CT of the chest, abdomen, and pelvis was performed following the intravenous administration of contrast. Administered 66.0 ml of OMNIPAQUE 350.00 mg/ml. Oral contrast was also administered. ?? COMPARISON: CT abdomen and pelvis 07/08/2019. ?? FINDINGS: Chest: Lungs and large airways: No pulmonary nodules or consolidation. The central airways are patent and normal in appearance. Pleura: No effusion. Heart/vasculature: Normal heart size. Aortic valve and coronary artery calcifications are present. Mild ectasia of the ascending thoracic aorta, which measures 3.7 cm maximally at the level of the main pulmonary artery. Lymph nodes: No pathologically enlarged lymph nodes. Mediastinum and kassie: Normal. Chest wall: Right chest port with catheter tip terminating in the superior cavoatrial junction. ?? Abdomen/pelvis: Liver: Normal size and attenuation. The 2.8 cm right posterior lobe hepatic cyst appears unchanged compared to 07/08/2019. Bile ducts: Nondilated. Gallbladder: No calcified gallstones. Normal gallbladder wall thickness. Pancreas: Normal attenuation, no ductal dilatation. Spleen: Normal. Adrenals: Normal. Kidneys: Symmetric bilateral nephrograms. No renal masses or hydronephrosis. Urinary Bladder: Partially distended, and therefore not completely assessed on this examination. ?? Vasculature: No abdominal aortic aneurysm. Lymph Nodes: No pathologically enlarged lymph nodes. Retroperitoneal surgical clips at site of prior lymph node dissection. Bowel: The stomach is partially distended with contrast, and is normal in appearance. Enteric contrast opacifies nondilated normal-appearing loops of small bowel up to the distal ileum. There are stool fill nondilated loops of large bowel, with a surgical anastomosis present in the rectosigmoid region. Status post appendectomy. Peritoneum and mesentery: No ascites, intraperitoneal free air or loculated fluid collections. No mesenteric inflammation. Abdominal wall: Well-healed midline ventral incision. ?? Reproductive organs: Status post hysterectomy and bilateral salpingo-oophorectomy. No pelvic nodularity or adnexal masses seen. Osseous structures: No suspicious lesions. ?? IMPRESSION No CT evidence of local, regional or distant metastatic disease. Labs: CA 125 Date Value Ref Range Status 12/28/2019 9 Final 10/07/2019 10 Final Assessment and Plan: Gabi Luna is a 59 y.o. year old stage IIIB mixed serous and endometrioid ovarian cancer whohas completed 6 cycles of Taxol/carbo/Avastin with a normal CT scan and a normal tumor marker as above. These results were reviewed with her and her via telephone today. 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 We will plan to start maintenance and she is advised to call before beginning this medication. We will plan for niraparib maintenance 200 mg p.o. twice daily. She will start this after she returns from [place]. She will need labs starting this and then weekly for the first 8 weeks. Once stability is present, we will plan for labs monthly with visits every other month initially and then every 3 months.. 14 minutes of this visit was spent on the telephone in direct communication with an additional 3 minutes of documentation and coordination of care for a total of 17 minutes. PASQUALE MEDEROS MD documented in this encounter Plan of Treatment Upcoming Encounters Date Type Department Care Team (Latest Contact Info) Description 12/25/2023 9:[address] [place] [address] Xavier Malhotra MD [facility] [place] [address] 12/29/2023 Hospital Encounter [place] [phone] Xavier Malhotra MD [facility] [place] [address] Paroxysmal atrial fibrillation 12/29/2023 7:30 AM EDT - 12/29/2023 12:00 PM EDT Surgery [place] [phone] Xavier Malhotra MD [facility] [place] [address] ELECTROPHYSIOLOGY PROCEDURE 01/14/2024 10:40 AM EDT Office Visit Cardiology at [place] [phone] Carmen Castaneda PA [facility] [place] [address] Scheduled Procedures Name Priority Associated Diagnoses Date/Ti me TRANSESOPHAGEAL ECHO DURING CATH/EP PROCEDURE Paroxysmal atrial fibrillation 12/29/2023 7:30 AM EDT documented as of this encounter Visit Diagnoses Diagnosis Ovarian cancer, unspecified laterality Paroxysmal atrial fibrillation Atrial fibrillation Paroxysmal atrial fibrillation Atrial fibrillation documented in this encounter Care Teams Couture Alterations Dressmaker Relationship Specialty Start Date End Date Evelyne Hunt APRN [address] [place] [address] PCP - General Internal Medicine 09/23/17 documented as of this encounter
--- OUTSIDE RECORDS SUMMARY | 2023-12-01 02:16 | XMS_ITS | Encounter Summary ---
Author Organization [facility] [place] [address] Care Team Providers Care Draw Tender Name Role Phone Evelyne Hunt Dat STEVEN Primary Care Provider [phone] Encounter Details Date Type Department Care Team (Late st Contact Info) Description 12/10/2019 External Results Hematology and Oncology at [place] [phone] Mary Mclain, RN Social History Tobacco Use [...] 9:[address] [place] [address] Xavier Malhotra MD [facility] [place] [address] 12/29/2023 Hospital Encounter Electrophysiology Lab at [place] [phone] Xavier Malhotra MD [facility] [address] [place] [phone] Paroxysmal atrial fibrillation 12/29/2023 7:30 AM EDT - 12/29/2023 12:00 PM EDT Surgery [place]rophys[place] [phone] Xavier Malhotra MD [facility] [place] [address] ELECTROPHYSIOLOGY PROCEDURE 01/14/2024 10:40 AM EDT Office Visit Cardiology at [address] [phone] Carmen Castaneda PA [facility] CARDIOLOGY [place], [place] [phone] Scheduled Procedures Name Priority Associated Diagnoses Date/Ti me TRANSESOPHAGEAL ECHO DURING CATH/EP PROCEDURE Paroxysmal atrial fibrillation 12/29/2023 7:30 AM EDT documented as of this encounter Procedures Procedure Name Priority Date/Time Associated Diagnosis Comments EXTERNAL LAB CBC CMP THYROID RESULTS PANEL Routine 12/09/2019 documented in this encounter Results * (ABNORMAL) CBC / CMP / Thyroid External Results (12/09/2019) White Blood Cell 4.3(ExtL) Hemoglobin 12.0(Exte rnal Lab) Hematocrit 33.6(ExtL ) Platelet 165(Exter nal Lab) Sodium 138(Exter nal Lab) Potassium 3.5(Exter nal Lab) Chloride 99([facility]) Carbon Dioxide 28([facility]) Blood Urea Nitrogen 12([facility]) Creatinine 0.59(Exte rnal Lab) Calcium 9.5(Exter nal Lab) Protein, Total 7.9(Exter nal Lab) Albumin 4.0(Exter nal Lab) Bilirubin, Total 0.8(Exter nal Lab) Alkaline Phosphatase 76([facility]) Aspartate Aminotransferase 20([facility]) Alanine Aminotransferase 30([facility]) Segmented Neutrophils Manual 54.9(Exte rnal Lab) Segs Absolute Manual 2,360(Ext ernal Lab) 12/09/2019 Natalie Vallejo MD EXTERNAL LAB ORDERAB LES documented in this encounter Visit Diagnoses Not on filedocumented in this encounter Care Teams Draw Tender Relationship Specialty Start Date End Date Evelyne Hunt APRN [address] [place] [address] PCP - General Internal Medicine 09/23/17 documented as of this encounter
--- OUTSIDE RECORDS SUMMARY | 2023-12-01 02:16 | XMS_ITS | Encounter Summary ---
Author Organization [facility] [place] [address] Care Team Providers Care Roving Or Yarn Color Checker Name Role Phone Evelyne Hunt Dat STEVEN Primary Care Provider [phone] Encounter Details Date Type Department Care Team (Late st Contact Info) Description 12/28/2019 External Results Gy[place] [phone] Natalie Vallejo MD [facility] [address] Social History Tobacco Use Types [...] 9:[address] [place] [phone] Xavier Malhotra MD [facility] [place] [address] 12/29/2023 Hospital Encounter Elect[place] [phone] Xavier Malhotra MD [facility] [place] [address] Paroxysmal atrial fibrillation 12/29/2023 7:30 AM EDT - 12/29/2023 12:00 PM EDT Surgery Electrophys[place] [phone] Xavier Malhotra MD [facility] [place] [address] ELECTROPHYSIOLOGY PROCEDURE 01/14/2024 10:40 AM EDT Office Visit Cardiology at [address] [phone] Carmen Castaneda PA [facility] [place] [address] Scheduled Procedures Name Priority Associated Diagnoses Date/Ti me TRANSESOPHAGEAL ECHO DURING CATH/EP PROCEDURE Paroxysmal atrial fibrillation 12/29/2023 7:30 AM EDT documented as of this encounter Procedures Procedure Name Priority Date/Time Associated Diagnosis Comments EXTERNAL LAB CBC CMP THYROID RESULTS PANEL Routine 12/28/2019 documented in this encounter Results * CBC / CMP / Thyroid External Results (12/28/2019) White Blood Cell 2.60 Hemoglobin 10.5 Hematocrit 30.1 Platelet 124 Sodium 135 Potassium 3.2 Chloride 99 Carbon Dioxide 29 Blood Urea Nitrogen 15 Creatinine 0.68 Glucose 105 Calcium 9.0 Protein, Total 7.4 Albumin 3.8 Bilirubin, Total 0.8 Alkaline Phosphatase 75 Aspartate Aminotransferase 19 Alanine Aminotransferase 25 ANC 0.79 12/28/2019 Natalie Vallejo MD EXTERNAL LAB ORDERAB LES documented in this encounter Visit Diagnoses Not on filedocumented in this encounter Care Teams Roving Or Yarn Color Checker Relationship Specialty Start Date End Date Evelyne Hunt APRN [address] [place] [address] PCP - General Internal Medicine 09/23/17 documented as of this encounter
--- OUTSIDE RECORDS SUMMARY | 2023-12-01 02:16 | XMS_ITS | Encounter Summary ---
Author Organization [facility] [place] [address] Care Team Providers Care Area Sales Manager Name Role Phone Evelyne Hunt APRN Primary Care Provider [phone] Reason for Visit * Reason Comments Ovarian Cancer * High Dollar Medication (Routine) - Specialty Diagnoses / Procedures Referred By Marcel t Referred To Contact Infusion Therapy / Hematology and Oncology Diagnoses Malignant neoplasm of unspecified ovary CARBO TAXOL AVASTIN STAND ALONE PTI 08/17 First Time Chemo (3) Procedures Q5107- MVASI J9045 - TC CARBOPLATIN, 50MG, INJECTION (PARAPLATIN) J2469 - TC PALONOSETRON HCL, 25MCG, INJECTION (ALOXI) J0185 - TC APREPITANT, 1 MG, INJECTION J9267 - TC PACLITAXEL, 1MG, INJ Natalie Vallejo MD [facility] DR [place] [address] [facility] Infusion [address] [place] [address] Referral ID Status Reason Start Date Expiration Date V isits Requested Visits Authorized [id number] 08/30/2019 05/28/2020 13 13 Encounter Details Date Type Department Care Team (Latest Contact Info) Description 12/13/2019 7:58 AM EDT - 12/13/2019 11:59 PM EDT Hospital Encounter [place] [address] Ovarian cancer, lateral, stage IIIb high-grade serous/endometrioid , 07/20/2019 s/p FREDI/BSO/oment/PPALN D/RSReanstomosis (Primary Dx) Discharge Disposition: Home Social History Tobacco Use [...] Sign Reading Time Taken Comments Blood Pressure 151/84 12/13/2019 9:39 AM EDT Pulse - - Temperature - - Respiratory Rate - - Oxygen Saturation - - Inhaled Oxygen Concentration - - Weight - - Height - - Body Mass Index - - documented in this encounter Medications at Time of Discharge Medication Sig Dispensed Refills Start Date End Date buPROPion XL (Wellbutrin XL) 300 mg Tablet Extended Release 24 hr TK 1 T PO QAM 10/01/2019 clobetasoL (TEMOVATE) 0.05 % Ointment Apply to the affected area daily at night for 6 to 12 weeks and then one to three times per week for maintenance. Apply sparingly (a dot 3 mm wide) in a thin film over the affected area. 15 g 3 12/13/2019 05/14/2021 prochlorperazine (Compazine) 10 mg Tablet TAKE 1 TABLET BY MOUTH EVERY 6 HOURS NEEDED FOR NAUSEA 30 tablet 3 09/10/2019 12/29/2019 Zinc 50 mg Tablet Take 1 tablet by mouth daily. 02/01/2020 ascorbic acid, vitamin C, (Vitamin C) 1,000 mg Tablet Take 1,000 mg by mouth daily. 02/01/2020 pyridoxine, vitamin B6, (B-6) 100 mg Tablet Take 100 mg by mouth daily. 02/01/2020 glutamine 15 gram Powder in Packet Take 15 g by mouth. Will resume as needed 12/29/2019 Alpha Lipoic Acid 600 mg Capsule Take 600 mg by mouth daily. 02/01/2020 ondansetron (Zofran) 8 mg Tablet Take 1 tablet by mouth every 8 hours as needed for Nausea. 30 tablet 3 08/18/2019 12/29/2019 LORazepam (Ativan) 0.5 mg Tablet Take 1 tablet by mouth every 6 hours as needed for Anxiety. 30 tablet 08/18/2019 12/29/2019 acetaminophen (Tylenol) 325 mg Tablet Take 2 tablets by mouth every 6 hours as needed for Pain. 50 tablet 07/24/2019 05/03/2020 ibuprofen (Advil;Motrin) 600 mg Tablet Take 1 tablet by mouth every 6 hours as needed for Pain. 50 tablet 07/24/2019 05/03/2020 polyethylene glycol (Miralax) 17 gram Powder in Packet Take 17 g by mouth daily. 14 each 07/24/2019 12/29/2019 ergocalciferol, vitamin D2, (VITAMIN D ORAL) Take by mouth daily. 022 UNABLE TO FIND daily. CBD - 25 mg 020 atorvastatin (LIPITOR) 10 mg Tablet Take 10 mg by mouth daily. 09/20/2021 hydroCHLOROthiazide (HYDRODIURIL) 25 mg Tablet Take 25 mg by mouth daily. 02/01/2020 dilTIAZem (CARDIZEM CD) 180 mg Capsule, Sust. Release 24 hrIndications:SVT (supraventricular tachycardia) Take 1 capsule by mouth daily. 60 capsule 5 09/17/2017 04/24/2020 dilTIAZem (CARDIZEM) 30 mg TabletIndications:SVT (supraventricular tachycardia) Take 1 tablet by mouth as needed (Palpitations. If you use more than 3 tablets in a day, please call our office.). 60 tablet 3 09/17/2017 01/04/2020 documented as of this encounter Progress Notes * Darya Whitt RN - 12/13/2019 10:26 AM EDT Patient Name: Gabi Luna Patient Age: 59 y.o. Birthdate: 1960 Admit date: 12/13/2019 Attending Physician: MD Yoni TIME TREATMENT STARTED: 944 TIME TREATMENT ENDED: 1549 Gabi Luna, 59 y.o. female with diagnosis of ovarian cancer, is here for chemotherapy infusion of Paclitaxel, Carboplatin, and bevacizumab. CYCLE: 6 DAY: 1 S: Patient offers no complaints, questions, or concerns regarding treatment today. Today is her last chemotherapy infusion treatment! O: Chemotherapy orders independently verified for correct drug name, route and dosage per patient'sheight, weight and BSA by Darya Whitt RN, pharmacy RN, and two pharmacists. REACTIONS (DESCRIPTION, TIME, INTERVENTION AND EFFECTIVENESS) none A: Gabi Luna tolerated treatment well and confirms that all questions and issues have been addressed. P: Return to clinic as advised. documented in this encounter Plan of Treatment Upcoming Encounters Date Type Department Care Team (Latest Contact Info) Description 12/25/2023 9:[address] [place] [place] [phone] Xavier Malhotra MD [facility] [place] [address] 12/29/2023 Hospital Encounter [place] [phone] Xavier Malhotra MD [facility] [place] [address] Paroxysmal atrial fibrillation 12/29/2023 7:30 AM EDT - 12/29/2023 12:00 PM EDT Surgery [place] [phone] Xavier Malhotra MD [facility] [place] [address] ELECTROPHYSIOLOGY PROCEDURE 01/14/2024 10:40 AM EDT Office Visit Cardiology at [address] [phone] Carmen Castaneda PA [facility] [place] [address] Scheduled Procedures Name Priority Associated Diagnoses Date/Ti me TRANSESOPHAGEAL ECHO DURING CATH/EP PROCEDURE Paroxysmal atrial fibrillation 12/29/2023 7:30 AM EDT documented as of this encounter Procedures Procedure Name Priority Date/Time Associated Diagnosis Comments POCT URINE DIPSTICK Routine 12/13/2019 9 :47 AM EDT Ovarian cancer, lateral, stage IIIb high-grade serous/endometrioid , 07/20/2019 s/p FREDI/BSO/oment/PPALN D/RSReanstomosis documented in this encounter Results * POCT urine dipstick (12/13/2019 9:47 AM EDT) POC Protein, UA 1+ Negative - Negative mg/dL Natalie Vallejo MD POINT OF CARE TEST O RDERABLES documented in this encounter Visit Diagnoses Diagnosis Ovarian cancer, lateral, stage IIIb high-grade serous/endometrioid, 07/20/2019 s/p FREDI/BSO/oment/PPALND/RSReanstomosis- Primary Paroxysmal atrial fibrillation Atrial fibrillation Paroxysmal atrial fibrillation Atrial fibrillation documented in this encounter Administered Medications Inactive Administered Medications - up to 3 most recent administrations Medication Order MAR Action Action Date Dose Rate Site acetaminophen (Tylenol) tablet 650 mg 650 mg, Oral, ONCE, 1 dose, On Fri12/13/19 at 1015, Administer prior to BEVACizumab., Routine Given 12/13/2019 3:08 PM EDT 650 mg aprepitant (CINVANTI) injection Emul 130 mg 130 mg, Intravenous, Administer over 2 Minutes, ONCE, 1 dose, On Fri12/13/19 at 0945, Alternative administration of IV push over 2 minutes is a recommendation from the mixer operator raw salt. Administer prior to chemotherapy., Routine Given 12/13/2019 10:07 AM EDT 130 mg BEVACizumab-awwb (MVASI) 800 mg in sodium chloride 0.9% 132 mL infusion 800 mg, Intravenous, ONCE, 1 dose, On Fri12/13/19 at 1045, Administer over 30 Minutes, Compatible with 0.9% sodium chloride ONLY Dose Ordered = 855 mg (15 mg/kg). Pharmacist rounded dose per procedure., This agent is restricted to outpatient use. Is this drug being given as an outpatient? Yes New Bag 12/13/2019 3:11 PM EDT 800 mg 264 mL/hr CARBOplatin (PARAPLATIN) 599 mg in dextrose 5% 309.9 mL chemo infusion 599 mg (Target AUC = 5), Intravenous, ONCE, 1 dose, On Fri12/13/19 at 1045, Administer over 30 Minutes, Warning Vesicant/Irritant Medication New Bag 12/13/2019 2:33 PM EDT 599 mg 619.8 mL/hr dexamethasone 20 mg in sodium chloride 0.9% 50 mL infusion 20 mg, Intravenous, ONCE, 1 dose, On Fri12/13/19 at 0945, Administer over 10 Minutes, Administer 30 minutes prior to PACLitaxel New Bag 12/13/2019 10:16 AM EDT 20 mg 300 mL/hr diphenhydrAMINE (Benadryl) capsule 25 mg 25 mg, Oral, ONCE, 1 dose, On Fri12/13/19 at 0945, Routine Given 12/13/2019 10:07 AM EDT 25 mg famotidine (PEPCID) injection 20 mg 20 mg, Intravenous, ONCE, 1 dose, On Fri12/13/19 at 0945, Administer 30 minutes prior to PACLitaxel Given 12/13/2019 10:07 AM EDT 20 mg PACLitaxeL (TAXOL) 282 mg in sodium chloride 0.9% Non-PVC 547 mL chemo infusion 282 mg (rounded from 281.75 mg = 175 mg/m2/dose ? 1.61 m2 Treatment Plan BSA from Recorded weight), Intravenous, ONCE, 1 dose, On Fri12/13/19 at 1045, Administer over 3 Hours, Warning Vesicant/Irritant Medication New Bag 12/13/2019 11:08 AM EDT 282 mg 182.3 mL/hr palonosetron (ALOXI) injection 0.25 mg 0.25 mg, Intravenous, ONCE, 1 dose, On Fri12/13/19 at 0945, Administer over 30 seconds., Routine Given 12/13/2019 10:07 AM EDT 0.25 mg documented in this encounter Care Teams Area Sales Manager Relationship Specialty Start Date End Date Evelyne Hunt APRN [address] [place] [address] PCP - General Internal Medicine 09/23/17 documented as of this encounter
--- OUTSIDE RECORDS SUMMARY | 2023-12-01 02:16 | XMS_ITS | Encounter Summary ---
Author Organization [facility] [place] [address] Care Team Providers Care Associate Creative Director Name Role Phone Evelyne Hunt Dat STEVEN Primary Care Provider [phone] Reason for Visit * Reason Comments Specialty Pharmacy Review Zejula Encounter Details Date Type Department Care Team (Late st Contact Info) Description 01/03/2020 Specialty [place] [phone] Erick Guzman, [facility] Social History Tobacco [...] as of this encounter Progress Notes * Edyta Mann - 01/03/2020 11:59 PM EDT The [facility] has completed a benefits investigation for Gabi Luna to review their eligibility to fill at [facility]. Per patient's medication list they are prescribed ZEJULA and is able to be filled at the [facility]. documented in this encounter Plan of Treatment Upcoming Encounters Date Type Department Care Team (Latest Contact Info) Description 12/25/2023 9:[address] [place] [address] Xavier Malhotra MD [facility] [place] [address] 12/29/2023 Hospital Encounter Electrophysiology Lab at [address] Xavier Malhotra MD [facility] [place] [place] [address] Paroxysmal atrial fibrillation 12/29/2023 7:30 AM EDT - 12/29/2023 12:00 PM EDT Surgery Electrophysiology Lab at [address] Xavier Malhotra MD [facility] [place] [place] [address] ELECTROPHYSIOLOGY PROCEDURE 01/14/2024 10:40 AM EDT Office Visit Cardiology at [place] [address] Carmen Castaneda PA [facility] [place] [address] Scheduled Procedures Name Priority Associated Diagnoses Date/Ti me TRANSESOPHAGEAL ECHO DURING CATH/EP PROCEDURE Paroxysmal atrial fibrillation 12/29/2023 7:30 AM EDT documented as of this encounter Goals Goal Patient Goal Type Associated Problems Recent Progress Patient-Stated? Author DH Mcdowell Medication Compliance and Understanding Patient Facing Action Plan Lani Love, [facility] Note: Maintain control of disease for as long as possible as assessed by tumor marker levels and scans in clinic every 3 to 6 months documented as of this encounter Visit Diagnoses Not on filedocumented in this encounter Care Teams Associate Creative Director Relationship Specialty Start Date End Date Evelyne Hunt APRN [address] [place] [address] PCP - General Internal Medicine 09/23/17 documented as of this encounter
--- OUTSIDE RECORDS SUMMARY | 2023-12-01 02:16 | XMS_ITS | Encounter Summary ---
Author Organization [facility] Address [facility] [place] [address] Care Team Providers Care Hvac Service Tech Name Role Phone Kiki Huntyce Dat STEVEN Primary Care Provider [phone] Reason for Referral * Diagnostic Test (Routine) - Denied Specialty Diagnoses / Procedures Referred By Contac t Referred To Contact Radiology Diagnoses Malignant neoplasm of ovary, unspecified laterality Procedures CT Chest Abdomen Pelvis w Contrast (Generic) Natalie Vallejo MD [facility] [place] [address] [facility] [place] [address] Referral ID Status Reason Start Date Expiration Date V isits Requested Visits Authorized [id number] Denied Specialty Service Requested 12/30/2019 06/19/2020 1 0 Reason for Visit * Diagnostic Test (Routine) - Denied Specialty Diagnoses / Procedures Referred By Contac t Referred To Contact Radiology Diagnoses Malignant neoplasm of ovary, unspecified laterality Procedures CT Chest Abdomen Pelvis w Contrast (Generic) Natalie Vallejo MD [facility] [place] [address] [facility] [place] [address] Referral ID Status Reason Start Date Expiration Date V isits Requested Visits Authorized [id number] Denied Specialty Service Requested 12/30/2019 06/19/2020 1 0 Encounter Details Date Type Department Care Team (Latest Contact Info) Description 12/30/2019 3:23 PM EDT - 12/30/2019 11:59 PM EDT Hospital Encounter [place] [address] Natalie Vallejo MD [facility] [place] [address] Malignant neoplasm of ovary, unspecified laterality Discharge Disposition: Home Social History [...] affected area. 15 g 3 12/13/2019 05/14/2021 Zinc 50 mg Tablet Take 1 tablet by mouth daily. 02/01/2020 ascorbic acid, vitamin C, (Vitamin C) 1,000 mg Tablet Take 1,000 mg by mouth daily. 02/01/2020 pyridoxine, vitamin B6, (B-6) 100 mg Tablet Take 100 mg by mouth daily. 02/01/2020 Alpha Lipoic Acid 600 mg Capsule Take 600 mg by mouth daily. 02/01/2020 acetaminophen (Tylenol) 325 mg Tablet Take 2 [...] 09/17/2017 01/04/2020 documented as of this encounter Plan of Treatment Upcoming Encounters Date Type Department Care Team (Latest Contact Info) Description 12/25/2023 9:[address] [place] [phone] Xavier Malhotra MD [facility] [place] [address] 12/29/2023 Hospital Encounter Electrophys[place] [address] Xavier Malhotra MD [facility] [place] [address] Paroxysmal atrial fibrillation 12/29/2023 7:30 AM EDT - 12/29/2023 12:00 PM EDT Surgery [place]rophys[place] [phone] Xavier Malhotra MD [facility] [place] [address] ELECTROPHYSIOLOGY PROCEDURE 01/14/2024 10:40 AM EDT Office Visit Cardiology at [address] [address] Carmen Castaneda PA [facility] [place] [address] Scheduled Procedures Name Priority Associated Diagnoses Date/Ti me TRANSESOPHAGEAL ECHO DURING CATH/EP PROCEDURE Paroxysmal atrial fibrillation 12/29/2023 7:30 AM EDT documented as of this encounter Procedures Procedure Name Priority Date/Time Associated Diagnosis Comments CT CHEST ABDOMEN PELVIS W CONTRAST (GENERIC) Routine 12/30/2019 6:18 PM EDT Malignant neoplasm of ovary, unspecified laterality documented in this encounter Results * CT Chest Abdomen Pelvis w Contrast (Generic) (12/30/2019 6:18 PM EDT) Anatomical Region Laterality Modality Abdomen, Pelvis Computed Tomogra phy Impressions 12/31/2019 9:[address] evidence of local, regional or distant metastatic disease. Preliminary report signed by: Kassandra Juan at 12/31/2019 9:12 AM I have personally reviewed the image(s) and the resident's interpretation and agree with the findings, Jesus Childress MD at 12/31/2019 9:30 AM Thank you for letting us participate in the care of this patient. For questions regarding this report, please contact the number below. ? Electronically signed by: Jesus Childress MD, [facility] ([phone]), at 12/31/2019 9:30 AM Narrative 12/31/2019 9:30 AM EDT EXAMINATION: CT CHEST ABDOMEN PELVIS W CONTRAST (GENERIC) CLINICAL HISTORY: Ovarian cancer, assess treatment response Status post total abdominal hysterectomy, bilateral salpingo-oophorectomy, omentectomy, rectosigmoid resection and lymph node dissection on 07/20/2019. Now status post completion of chemotherapy. End of treatment scan TECHNIQUE: Helical CT of the chest, abdomen, and pelvis was performed following the intravenous administration of contrast. Administered 66.0 ml of OMNIPAQUE 350.00 mg/ml. Oral contrast was also administered. COMPARISON: CT abdomen and pelvis 07/08/2019. FINDINGS: Chest: Lungs and large airways: No [...] tip terminating in the superior cavoatrial junction. Abdomen/pelvis: Liver: Normal size and attenuation. The 2.8 cm right posterior lobe hepatic cyst appears unchanged compared to 07/08/2019. Bile ducts: Nondilated. Gallbladder: No calcified gallstones. Normal gallbladder wall thickness. Pancreas: Normal attenuation, no ductal dilatation. Spleen: Normal. Adrenals: Normal. Kidneys: Symmetric bilateral nephrograms. No renal masses or hydronephrosis. Urinary Bladder: Partially distended, and therefore not completely assessed on this examination. Vasculature: No abdominal aortic aneurysm. Lymph Nodes: ??No pathologically enlarged lymph nodes. Retroperitoneal surgical clips [...] inflammation. Abdominal wall: Well-healed midline ventral incision. Reproductive organs: Status post hysterectomy and bilateral salpingo-oophorectomy. No pelvic nodularity or adnexal masses seen. Osseous structures: No suspicious lesions. Procedure Note Jesus Childress MD - 12/31/2019 EXAMINATION: CT CHEST ABDOMEN PELVIS W CONTRAST (GENERIC) CLINICAL HISTORY: Ovarian cancer, assess treatment response Status post total abdominal hysterectomy, bilateralsalpingo-oophorectomy, omentectomy, rectosigmoid resection and lymph node dissection on07/20/2019. Now status post completion of chemotherapy. End of treatment scan TECHNIQUE: Helical CT of the chest, abdomen, and pelvis was performedfollowing the intravenous administration of contrast. Administered 66.0 ml ofOMNIPAQUE 350.00 mg/ml. Oral contrast was also administered. COMPARISON: CT abdomen and pelvis 07/08/2019. FINDINGS: Chest: Lungs and large airways: No pulmonary nodules or consolidation. Thecentral airways are patent and normal in appearance. Pleura: No effusion. Heart/vasculature: Normal heart size. Aortic valve and coronary artery calcifications are present. Mild ectasia of the ascending thoracic aorta,which measures 3.7 cm maximally at the level of the main pulmonary artery. Lymph nodes: No pathologically enlarged lymph nodes. Mediastinum and kassie: Normal. Chest wall: Right chest port with catheter tip terminating in thesuperior cavoatrial junction. Abdomen/pelvis: Liver: Normal size and attenuation. The 2.8 cm right posterior lobehepatic cyst appears unchanged compared to 07/08/2019. Bile ducts: Nondilated. Gallbladder: No calcified gallstones. Normal gallbladder wall thickness. Pancreas: Normal attenuation, no ductal dilatation. Spleen: Normal. Adrenals: Normal. Kidneys: Symmetric bilateral nephrograms. No renal masses orhydronephrosis. Urinary Bladder: Partially distended, and therefore not completelyassessed on this examination. Vasculature: No abdominal aortic aneurysm. Lymph Nodes: No pathologically enlarged lymph nodes. Retroperitonealsurgical clips at site of prior lymph node dissection. Bowel: The stomach is partially distended with contrast, and is normalin appearance. Enteric contrast opacifies nondilated normal-appearing loopsof small bowel up to the distal ileum. There are stool fill nondilated loopsof large bowel, with a surgical anastomosis present in the rectosigmoidregion. Status post appendectomy. Peritoneum and mesentery: No ascites, intraperitoneal free air orloculated fluid collections. No mesenteric inflammation. Abdominal wall: Well-healed midline ventral incision. Reproductive organs: Status post hysterectomy and bilateral salpingo-oophorectomy. No pelvic nodularity or adnexal masses seen. Osseous structures: No suspicious lesions. IMPRESSION No CT evidence of local, regional or distant metastatic disease. Preliminary report signed by: Kassandra Juan at 12/31/2019 9:12 AM I have personally reviewed the image(s) and the resident's interpretationand agree with the findings, Jesus Childress MD at 12/31/2019 9:30 AM Thank you for letting us participate in the care of this patient. Forquestions regarding this report, please contact the number below. Electronically signed by: Jesus Childress MD, [facility]([phone]), at 12/31/2019 9:30 AM Natalie Vallejo MD IMG CT ORDERABLES documented in this encounter Visit Diagnoses Diagnosis Malignant neoplasm of ovary, unspecified laterality Paroxysmal atrial fibrillation Atrial fibrillation Paroxysmal atrial fibrillation Atrial fibrillation documented in this encounter Administered Medications Inactive Administered Medications - up to 3 most recent administrations Medication Order MAR Action Action Date Dose Rate Site iohexoL (Omnipaque) 350 mg/mL solution 0-200 mL 0-200 mL, Intravenous, ONCE PRN, 1 dose, Starting on Louisa 12/30/19 at 1818, Until Louisa 12/30/19 at 1819, Per Protocol, Warning Vesicant/Irritant Medication , Radiology Contrast, Routine Given 12/30/2019 6:19 PM EDT 66 mLs iohexoL (Omnipaque) 350 mg/mL solution 0-50 mL 0-50 mL, Oral, ONCE PRN, 1 dose, Starting on Louisa 12/30/19 at 1818, Until Louisa 12/30/19 at 1819, Per Protocol, Warning Vesicant/Irritant Medication , Radiology Contrast, Routine Given 12/30/2019 6:19 PM EDT 50 mLs documented in this encounter Care Teams Hvac Service Tech Relationship Specialty Start Date End Date Evelyne Hunt APRN [address] [place] [address] PCP - General Internal Medicine 09/23/17 documented as of this encounter
--- OUTSIDE RECORDS SUMMARY | 2023-12-01 02:16 | XMS_ITS | Encounter Summary ---
Author Organization [facility] [place] [address] Care Team Providers Care Personal Injury Litigation Paralegal Name Role Phone Evelyne Hunt APRN Primary Care Provider [phone] Reason for Visit * Reason Onset Date Comments Results 11/29/2019 Encounter Details Date Type Department Care Team (Late st Contact Info) Description 11/29/2019 Telephone Hematology [place] [phone] Mary Mclain, RN Results Social History Tobacco [...] Telephone Encounter - Mary Mclain RN - 11/29/2019 12:40 PM EDT Message left with following normal results Recent Results (from the past 72 hour(s)) CBC / CMP / Thyroid External Results Result Value Ref Range WBC 5.33 (External Lab) Hemoglobin 11.3 (External Lab) Hematocrit 31.5 (ExtL) Platelets 128 (EXTERNAL/ABN) Neutrophil % 73.1 (External Lab) Neutrophil Abs 3,900 (External Lab) documented in this encounter Plan of Treatment Upcoming Encounters Date Type Department Care Team (Latest Contact Info) Description 12/25/2023 9:[address] Scan at [place] [address] Xavier Malhotra MD [facility] [place] [address] 12/29/2023 Hospital Encounter Electrophysiology Lab at [address] Xavier Malhotra MD [facility] [place] [address] Paroxysmal atrial fibrillation 12/29/2023 7:30 AM EDT - 12/29/2023 12:00 PM EDT Surgery Electrophysiology Lab at [place] [address] Xavier Malhotra MD [facility] [place] [address] ELECTROPHYSIOLOGY PROCEDURE 01/14/2024 10:40 AM EDT Office Visit Cardiology at [place] [address] Carmen Castaneda PA [facility] [place] [address] Scheduled Procedures Name Priority Associated Diagnoses Date/Ti me TRANSESOPHAGEAL ECHO DURING CATH/EP PROCEDURE Paroxysmal atrial fibrillation 12/29/2023 7:30 AM EDT documented as of this encounter Visit Diagnoses Not on filedocumented in this encounter Care Teams Personal Injury Litigation Paralegal Relationship Specialty Start Date End Date Evelyne Hunt APRN [address] [place] [address] PCP - General Internal Medicine 09/23/17 documented as of this encounter
--- OUTSIDE RECORDS SUMMARY | 2023-12-01 02:16 | XMS_ITS | Encounter Summary ---
Author Organization [facility] Address [facility] [place] [address] Care Team Providers Care Bean Snipper Name Role Phone Marilee Evelyne Daugherty APRN Primary Care Provider [phone] Encounter Details Date Type Department Care Team (Late st Contact Info) Description 01/28/2020 External Results Administration [place] [phone] Social History Tobacco Use Types Packs/Day Years [...] 9:[address] [place] [address] Xavier Malhotra MD [facility] [place] [address] 12/29/2023 Hospital Encounter [place] [address] Xavier Malhotra MD [facility] [place] [address] Paroxysmal atrial fibrillation 12/29/2023 7:30 AM EDT - 12/29/2023 12:00 PM EDT Surgery [place] [address] Xavier Malhotra MD [facility] [place] [address] ELECTROPHYSIOLOGY PROCEDURE 01/14/2024 10:40 AM EDT Office Visit Cardiology at [address] [phone] Carmen Castaneda PA [facility] [place] [address] Scheduled Procedures Name Priority Associated Diagnoses Date/Ti [...] Date/Time Associated Diagnosis Comments ECG SCAN Routine 01/28/2020 ECG SCAN Routine 01/28/2020 documented in this encounter Results * Scan Doc: ECG (01/28/2020) Historical Provider MEDIA MGR SCAN EX T ORDR/RSLT * Scan Doc: ECG (01/28/2020) Historical Provider MEDIA MGR SCAN EX T ORDR/RSLT documented in this encounter Visit Diagnoses Not on filedocumented in this encounter Care Teams Bean Snipper Relationship Specialty Start Date End Date Evelyne Hunt APRN [address] [place] [address] PCP - General Internal Medicine 09/23/17 documented as of this encounter
--- OUTSIDE RECORDS SUMMARY | 2023-12-01 02:16 | XMS_ITS | Encounter Summary ---
Author Organization [facility] [place] [address] Care Team Providers Care Vehicle Safety Inspector Name Role Phone Evelyne Hunt Dat STEVEN Primary Care Provider [phone] Encounter Details Date Type Department Care Team (Late st Contact Info) Description 02/01/2020 External Results Hematology and Oncology at [place] [phone] Mary Mclain, RN Social History Tobacco Use [...] 9:[address] [place] [address] Xavier Malhotra MD [facility] [place] [address] 12/29/2023 Hospital Encounter Electrophysiology Lab at [place] [phone] Xavier Malhotra MD [facility] [address] [place] [phone] Paroxysmal atrial fibrillation 12/29/2023 7:30 AM EDT - 12/29/2023 12:00 PM EDT Surgery [place] [phone] Xavier Malhotra MD [facility] [place] [address] ELECTROPHYSIOLOGY PROCEDURE 01/14/2024 10:40 AM EDT Office Visit Cardiology at [address] [address] Carmen Castaneda PA [facility] [place] [address] Scheduled Procedures Name Priority Associated Diagnoses Date/Ti me TRANSESOPHAGEAL ECHO DURING CATH/EP PROCEDURE Paroxysmal atrial fibrillation 12/29/2023 7:30 AM EDT documented as of this encounter Goals Goal Patient Goal Type Associated Problems Recent Progress Patient-Stated? Author [facility] Medication Compliance and Understanding Patient Facing Action Plan Lani Love, [facility] Note: Maintain control of disease for as long as possible as assessed by tumor marker levels and scans in clinic every 3 to 6 months documented as of this encounter Procedures Procedure Name Priority Date/Time Associated Diagnosis Comments EXTERNAL LAB CBC CMP THYROID RESULTS PANEL Routine 01/31/2020 CBC (WITH DIFF) Routine 01/31/2020 documented in this encounter Results * CBC (with Diff) (01/31/2020) Blood specimen (specimen) Historical Provider HEMATOLOGY ORDERA BLES * CBC / CMP / Thyroid External Results (01/31/2020) White Blood Cell 6.89 Hemoglobin 13.4 Hematocrit 37.9 Platelet 254 Segmented Neutrophils Manual 70.8 Segs Absolute Manual 4,880 01/31/2020 Natalie Vallejo MD EXTERNAL LAB ORDERAB LES documented in this encounter Visit Diagnoses Not on filedocumented in this encounter Care Teams Vehicle Safety Inspector Relationship Specialty Start Date End Date Evelyne Hunt APRN [address] [place] [address] PCP - General Internal Medicine 09/23/17 documented as of this encounter
--- OUTSIDE RECORDS SUMMARY | 2023-12-01 02:16 | XMS_ITS | Encounter Summary ---
Author Organization [facility] [place] [address] Care Team Providers Care [employer] Intermediary Name Role Phone Evelyne Hutn Dat STEVEN Primary Care Provider [phone] Encounter Details Date Type Department Care Team (Late st Contact Info) Description 11/29/2019 External Results Hematology and Oncology at [place] [phone] Mary Mclain, RN Social History Tobacco Use [...] 9:[address] [place] [address] Xavier Malhotra MD [facility] [place] [address] 12/29/2023 Hospital Encounter Electrophysiology Lab at [place] [phone] Xavier Malhotra MD [facility] [address] [place] [phone] Paroxysmal atrial fibrillation 12/29/2023 7:30 AM EDT - 12/29/2023 12:00 PM EDT Surgery [place] [phone] Xavier Malhotra MD [facility] [place] [address] ELECTROPHYSIOLOGY PROCEDURE 01/14/2024 10:40 AM EDT Office Visit Cardiology at [address] [address] Carmen Castaneda PA [facility] CARDIOLOGY [place], [place] [phone] Scheduled Procedures Name Priority Associated Diagnoses Date/Ti me TRANSESOPHAGEAL ECHO DURING CATH/EP PROCEDURE Paroxysmal atrial fibrillation 12/29/2023 7:30 AM EDT documented as of this encounter Procedures Procedure Name Priority Date/Time Associated Diagnosis Comments EXTERNAL LAB CBC CMP THYROID RESULTS PANEL Routine 11/29/2019 CBC (WITH DIFF) Routine 11/29/2019 documented in this encounter Results * CBC (with Diff) (11/29/2019) Blood specimen (specimen) Historical Provider HEMATOLOGY ORDERA BLES * (ABNORMAL) CBC / CMP / Thyroid External Results (11/29/2019) White Blood Cell 5.33(Exter nal Lab) Hemoglobin 11.3(Exter nal Lab) Hematocrit 31.5(ExtL) Platelet 128(INKER AL/ABN) Segmented Neutrophils Manual 73.1(Exter nal Lab) Segs Absolute Manual 3,900(Exte rnal Lab) 11/29/2019 Natalie Vallejo MD EXTERNAL LAB ORDERAB LES documented in this encounter Visit Diagnoses Not on filedocumented in this encounter Care Teams [employer] Intermediary Relationship Specialty Start Date End Date Evelyne Hunt, TENISHA [address] [place] [address] PCP - General Internal Medicine 09/23/17 documented as of this encounter
--- OUTSIDE RECORDS SUMMARY | 2023-12-01 02:16 | XMS_ITS | Encounter Summary ---
Author Organization [facility] [place] [address] Care Team Providers Care Speech Professor Name Role Phone Evelyne Hunt APRN Primary Care Provider [phone] Reason for Visit * Reason Comments Chemotherapy * High Dollar Medication (Routine) - Specialty [...] TC PACLITAXEL, 1MG, INJ Natalie Vallejo MD [facility] [place] [address] [facility] [address] [place] [address] Referral ID Status Reason Start Date Expiration Date V isits Requested Visits Authorized [id number] 08/30/2019 05/28/2020 13 13 Encounter Details Date Type Department Care Team (Latest Contact Info) Description 11/22/2019 8:00 AM EDT - 11/22/2019 11:59 PM EDT Hospital Encounter [place] [address] Ovarian cancer, unspecified laterality; Ovarian cancer, lateral, stage IIIb high-grade serous/endometrioid [...] Sign Reading Time Taken Comments Blood Pressure 151/85 11/22/2019 8:26 AM EDT Pulse 88 11/22/2019 8:26 AM EDT Temperature 36.4 ??C (97.5 ??F) 11/22/2019 8:26 AM ED T Respiratory Rate 17 11/22/2019 8:26 AM EDT Oxygen Saturation 100% 11/22/2019 8:26 AM EDT Inhaled Oxygen Concentration - - Weight 54.9 kg (121 lb 1.6 oz) 11/22/2019 8:26 A M EDT Height 164 cm (5' 4.57) 11/22/2019 8:26 AM EDT Body Mass Index 20.42 11/22/2019 8:26 AM EDT documented in this encounter Medications at Time of Discharge Medication Sig Dispensed Refills Start Date End Date buPROPion XL (Wellbutrin XL) 300 mg Tablet Extended Release 24 hr TK 1 T PO QAM 10/01/2019 prochlorperazine (Compazine) 10 mg Tablet TAKE 1 [...] of this encounter Progress Notes * Lizz Liao, RN - 11/22/2019 8:01 AM EDT Patient Name: Gabi Luna Patient Age: 59 y.o. Birthdate: 1960 Admit date: (Not on file) Attending Physician: No att. providers found Gabi Luna, 59 y.o. female with diagnosis of ovarian cancer is here for chemotherapy infusion of paclitael, carboplatin and bevacizumab. Patient had taxol reaction on 08/30/19 but has toleratedtaxol infusions well since then. Avastin held today d/t elevated urine protein (+3) per Dr. Singh. UA with culture reflex collected. PROTOCOL: no CYCLE: 5 DAY: 1 Urine protein: +3. Pharmacy RN notified BP: 151/85 S: Patient offers no complaints at this time. O: Chemotherapy orders independently verified for correct drug name, route and dosage per patient'sheight, weight and BSA by Mee Liao RN and onsite pharmacist REACTIONS (DESCRIPTION, TIME, INTERVENTION AND EFFECTIVENESS) None A: Pt. Tolerated treatment well. Gabi Luna confirms that all questions and issues have beenaddressed. P: Return to clinic as scheduled Pt. chemo teaching instructions included: During clinic hours (8am-5pm Friday-Friday): pt. can call [phone] with questions or concerns. After clinic hours (5pm-8am Friday-Friday and weekends) pt can call [phone] and ask for the wellness spa manager/oncologist licensed nurse practitioner. Gabi Luna verbalized understanding of potential chemotherapy side effects and home care including but not limited to- handwashing to prevent infection, signs and symptoms of low blood counts (fever, fatigue, bleeding), to call with a fever of 100.4 or greater, any significant constipation/diarrhea, importance of nutrition and fluid intake (drinking at least 32-64 ounces of non-caffeinatedbeverages/day), mouth care. Gabi Luna verbalized understanding of how to take prescription medications given for home use after chemotherapy. documented in this encounter Plan of Treatment Upcoming Encounters Date Type Department Care Team (Latest Contact Info) Description 12/25/2023 9:[address] [place] [address] Xavier Malhotra MD [facility] [place] [place] [address] 12/29/2023 Hospital Encounter [place] [address] Xavier Malhotra MD [facility] [place] [address] Paroxysmal atrial fibrillation 12/29/2023 7:30 AM EDT - 12/29/2023 12:00 PM EDT Surgery [place] [phone] Xavier Malhotra MD [facility] [place] [address] ELECTROPHYSIOLOGY PROCEDURE 01/14/2024 10:40 AM EDT Office Visit Cardiology at [address] [phone] Carmen Castaneda PA [facility] [place] [address] Scheduled Procedures Name Priority Associated Diagnoses Date/Ti me TRANSESOPHAGEAL ECHO DURING CATH/EP PROCEDURE Paroxysmal atrial fibrillation 12/29/2023 7:30 AM EDT documented as of this encounter Procedures Procedure Name Priority Date/Time Associated Diagnosis Comments URINALYSIS WITH REFLEX CULTURE Routine 11/22/2019 11:20 AM EDT Ovarian cancer, unspecified laterality POCT URINE DIPSTICK Routine 11/22/2019 documented in this encounter Results * Urinalysis with reflex Culture (11/22/2019 11:20 AM EDT) Glucose, Urine Dipstick Negative Negative mg/dL [facility] Protein, Urine Dipstick Negative Negative mg/dL [facility] Bilirubin, Urine Dipstick Negative Negative mg/dL [facility] Comment: Clinical correlation required for positive Urine Bilirubin results as false positive may occur with some drugs and drug related products. If a false positive is suspected a serum total bilirubin should be considered if clinically indicated. Urobilinogen, Urine Dipstick Normal Normal mg/dL [facility] pH, Urn (dipstick) 7.5 5.0 - 8.0 [facility] Blood, Urine Dipstick Negative Negative mg/dL [facility] Ketone, Urine Dipstick Negative Negative mg/dL [facility] Nitrite, Urine Dipstick Negative Negative [facility] Leukocytes, Urine Dipstick Negative Negative [facility] Appearance, Urine Dipstick Clear Clear [facility] Specific Mentcle Urine Automated 1.010 1.006 - 1.030 [facility] Color, Urine Dipstick Yellow Yellow [facility] Reflex to Culture No [facility] Urine specimen obtained by clean catch procedure (specimen) 11/22/2019 11:20 AM EDT 11/22/2019 11:29 AM EDT Narrative Resulting Agency Comment Spec In Lab Gabriela Singh MD URINE ORDERABLES Performing Organization Address City/State/[facility] Co de Phone Number [facility] [place] [address] * (ABNORMAL) POCT urine dipstick (11/22/2019) POC Protein, UA 500mg/dL( A) Negative - Negative mg/dL 11/22/2019 Natalie Vallejo MD POINT OF CARE TEST O RDERABLES documented in this encounter Visit Diagnoses Diagnosis Ovarian cancer, lateral, stage IIIb high-grade serous/endometrioid, 07/20/2019 s/p FREDI/BSO/oment/PPALND/RSReanstomosis Paroxysmal atrial fibrillation Atrial fibrillation Paroxysmal atrial fibrillation Atrial fibrillation documented in this encounter Administered Medications Inactive Administered Medications - up to 3 most recent administrations Medication Order MAR Action Action Date Dose Rate Site aprepitant (CINVANTI) injection Emul 130 mg 130 mg, Intravenous, Administer over 2 Minutes, ONCE, 1 dose, On 11/22/19 at 1000, Alternative administration of IV push over 2 minutes is a recommendation from the sandwich peddler. Administer prior to chemotherapy., Routine Given 11/22/2019 9:58 AM EDT 130 mg CARBOplatin (PARAPLATIN) 584 mg in dextrose 5% 308.4 mL chemo infusion 584 mg (rounded from 583.5 mg, Target AUC = 5), Intravenous, ONCE, 1 dose, On Fri11/22/19 at 1045, Administer over 30 Minutes, Warning Vesicant/Irritant Medication New Bag 11/22/2019 1:55 PM EDT 584 mg 616.8 mL/hr dexamethasone 20 mg in sodium chloride 0.9% 50 mL infusion 20 mg, Intravenous, ONCE, 1 dose, On Fri11/22/19 at 1000, Administer over 10 Minutes, Administer 30 minutes prior to PACLitaxel New Bag 11/22/2019 9:58 AM EDT 20 mg 300 mL/hr diphenhydrAMINE (Benadryl) capsule 25 mg 25 mg, Oral, ONCE, 1 dose, On Fri11/22/19 at 1000, Routine Given 11/22/2019 9:57 AM EDT 25 mg famotidine (PEPCID) injection 20 mg 20 mg, Intravenous, ONCE, 1 dose, On Fri11/22/19 at 1000, Administer 30 minutes prior to PACLitaxel Given 11/22/2019 9:58 AM EDT 20 mg PACLitaxeL (TAXOL) 282 mg in sodium chloride 0.9% Non-PVC 547 mL chemo infusion 282 mg (rounded from 281.75 mg = 175 mg/m2/dose ? 1.61 m2 Treatment Plan BSA from Recorded weight), Intravenous, ONCE, 1 dose, On Fri11/22/19 at 1045, Administer over 3 Hours, Warning Vesicant/Irritant Medication New Bag 11/22/2019 10:41 AM EDT 282 mg 182.3 mL/hr palonosetron (ALOXI) injection 0.25 mg 0.25 mg, Intravenous, ONCE, 1 dose, On Fri11/22/19 at 1000, Administer over 30 seconds., Routine Given 11/22/2019 9:58 AM EDT 0.25 mg documented in this encounter Care Teams Speech Professor Relationship Specialty Start Date End Date Evelyne Hunt APRN [address] [place] [address] PCP - General Internal Medicine 09/23/17 documented as of this encounter
--- OUTSIDE RECORDS SUMMARY | 2023-12-01 02:16 | XMS_ITS | Encounter Summary ---
Author Organization [facility] Address [facility] [address] Care Team Providers Care Shoe Cementer Name Role Phone Evelyne Hunt APRN Primary Care Provider [phone] Encounter Details Date Type Department Care Team (Latest Contact Info) Description 02/01/2020 8:49 AM EDT - 02/01/2020 9:06 AM EDT Hospital Encounter XRay at [address] [place] [address] Franklyn Toure MD [facility] [place] [address] Chest pain, unspecified type; SOB (shortness of breath) Discharge Disposition: Home Social History Tobacco Use [...] TK 1 T PO QAM 10/01/2019 niraparib (ZEJULA) capsule Take 200 mg by [...] 09/17/2017 04/24/2020 documented as of this encounter Plan of Treatment Upcoming Encounters Date Type Department Care Team (Latest Contact Info) Description 12/25/2023 9:[address] [place] [phone] Xavier Malhotra MD [facility] [place] [address] 12/29/2023 Hospital Encounter Elect[place] [address] Xavier Malhotra MD [facility] [place] [address] Paroxysmal atrial fibrillation 12/29/2023 7:30 AM EDT - 12/29/2023 12:00 PM EDT Surgery [place]rophys[place] [phone] Xavier Malhotra MD [facility] [place] [address] ELECTROPHYSIOLOGY PROCEDURE 01/14/2024 10:40 AM EDT Office Visit Cardiology at [address] [address] Carmen Castaneda PA [facility] [address] Scheduled Procedures Name Priority Associated Diagnoses Date/Ti [...] Comments XR CHEST PA AND LATERAL Routine 02/01/2020 8:56 AM EDT Chest pain, unspecified type SOB (shortness of breath) documented in this encounter Results * XR Chest PA & Lateral (Generic) (02/01/2020 8:56 AM EDT) Anatomical Region Laterality Modality Chest N/A Digital Radiogra phy Impressions 02/01/2020 9:34 AM EDT No acute cardiopulmonary disease. Thank you for letting us participate in the care of this patient. For questions regarding this report, please contact the number below. ? Narrative 02/01/2020 9:34 AM EDT EXAMINATION: XR CHEST PA AND LATERAL (GENERIC) CLINICAL HISTORY: SOB TECHNIQUE: PA and lateral views of the chest COMPARISON: CT scan December 30, 2019 Chest radiographs April 17, 2018 FINDINGS: The heart is normal in size and the mediastinum has a normal contour. Both lungs are clear and costophrenic angles are sharp. No acute bone abnormalities are present. There is a shallow dextroconvex curvature of the thoracic spine. A right anterior chest wall port is seen and has a central venous catheter extending to the level of the distal superior vena cava. Procedure Note Zan Casiano MD - 02/01/2020 EXAMINATION: XR CHEST PA AND LATERAL (GENERIC) CLINICAL HISTORY: SOB TECHNIQUE: PA and lateral views of the chest COMPARISON: CT scan December 30, 2019 Chest radiographs April 17, 2018 FINDINGS: The heart is normal in size and the mediastinum has a normal contour. Both lungs are clear and costophrenic angles are sharp. No acute bone abnormalities are present. There is a shallow dextroconvex curvature of the thoracic spine. A right anterior chest wall port is seen and has a central venouscatheter extending to the level of the distal superior vena cava. IMPRESSION No acute cardiopulmonary disease. Thank you for letting us participate in the care of this patient. Forquestions regarding this report, please contact the number below. Franklyn Daugherty [facility] DX ORDERABLES documented in this encounter Visit Diagnoses Diagnosis Chest pain, unspecified type SOB (shortness of breath) Shortness of breath Paroxysmal atrial fibrillation Atrial fibrillation Paroxysmal atrial fibrillation Atrial fibrillation documented in this encounter Care Teams Shoe Cementer Relationship Specialty Start Date End Date Evelyne Hunt APRN [address] [place] [address] PCP - General Internal Medicine 09/23/17 documented as of this encounter
--- OUTSIDE RECORDS SUMMARY | 2023-12-01 02:16 | XMS_ITS | Encounter Summary ---
Author Organization [facility] [place] [address] Care Team Providers Care Commissioner Of Conciliation Name Role Phone Evelyne Hunt TENISHA Primary Care Provider [phone] Reason for Visit * Reason Onset Date Comments Medication Refill 01/03/2020 Encounter Details Date Type Department Care Team (Late st Contact Info) Description 01/03/2020 Refill [place] [phone] Natalie Vallejo MD [facility] [place] [address] Social History Tobacco Use Types Packs/Day Years [...] 9:[address] [place] [phone] Xavier Malhotra MD [facility] [place] [address] 12/29/2023 Hospital Encounter [place] [address] Xaiver Malhotra MD [facility] [place] [address] Paroxysmal atrial fibrillation 12/29/2023 7:30 AM EDT - 12/29/2023 12:00 PM EDT Surgery [place] [phone] Xavier Malhotra MD [facility] [place] [address] ELECTROPHYSIOLOGY PROCEDURE 01/14/2024 10:40 AM EDT Office Visit Cardiology at [address] [phone] Carmen Castaneda PA [facility] [place] [address] Scheduled Procedures Name Priority Associated Diagnoses Date/Ti me TRANSESOPHAGEAL ECHO DURING CATH/EP PROCEDURE Paroxysmal atrial fibrillation 12/29/2023 7:30 AM EDT documented as of this encounter Goals Goal Patient Goal Type Associated Problems Recent Progress Patient-Stated? Author [facility] [place] Medication Compliance and Understanding Patient Facing Action Plan Lani Love, [facility] Note: Maintain control of disease for as long as possible as assessed by tumor marker levels and scans in clinic every 3 to 6 months documented as of this encounter Visit Diagnoses Not on filedocumented in this encounter Care Teams Commissioner Of Conciliation Relationship Specialty Start Date End Date Evelyne Hunt APRN [address] [place] [address] PCP - General Internal Medicine 09/23/17 documented as of this encounter
--- OUTSIDE RECORDS SUMMARY | 2023-12-01 02:16 | XMS_ITS | Encounter Summary ---
Author Organization [facility] [place] [address] Care Team Providers Care Novelty Balloon Assembler And Packer Name Role Phone Kiki Huntyce Dat STEVEN Primary Care Provider [phone] Reason for Visit * Reason Onset Date Comments Palpitations 01/31/2020 Encounter Details Date Type Department Care Team (Late st Contact Info) Description 01/31/2020 Telephone [place]ology [place] [phone] Mary Mclain RN Palpitations Social History Tobacco Use Types Packs/Day [...] Telephone Encounter - Mary Mclain RN - 01/31/2020 10:55 AM EDT Ivana calls very emotional stating she has finished with her holter monitor as of Friday. States Friday night was the worst I didn't know if I would see morning. States she can't see cardiology until the end of February and asking if Dr Vallejo can talk to them and get her in sooner. States she is dizzy and having palpitations. Pt instructed to go to the ER or call her PCP. Pt states she doesn't want to pay for another ER visit. documented in this encounter Plan of Treatment Upcoming Encounters Date Type Department Care Team (Latest Contact Info) Description 12/25/2023 9:[address] Scan at [place] [phone] Xavier Malhotra MD [facility] [place] [address] 12/29/2023 Hospital Encounter [place] [phone] Xavier Malhotra MD [facility] [place] [address] Paroxysmal atrial fibrillation 12/29/2023 7:30 AM EDT - 12/29/2023 12:00 PM EDT Surgery [place] [phone] Xavier Malhotra MD [facility] [place] [address] ELECTROPHYSIOLOGY PROCEDURE 01/14/2024 10:40 AM EDT Office Visit Cardiology at [address] [phone] Carmen Castaneda PA [facility] [place] [address] Scheduled Procedures Name Priority Associated Diagnoses Date/Ti me TRANSESOPHAGEAL ECHO DURING CATH/EP PROCEDURE Paroxysmal atrial fibrillation 12/29/2023 7:30 AM EDT documented as of this encounter Goals Goal Patient Goal Type Associated Problems Recent Progress Patient-Stated? Author [facility] Medication Compliance and Understanding Patient Facing Action Plan Lani Love, [facility] Note: Maintain control of disease for as long as possible as assessed by tumor marker levels and scans in clinic every 3 to 6 months documented as of this encounter Visit Diagnoses Not on filedocumented in this encounter Care Teams Novelty Balloon Assembler And Packer Relationship Specialty Start Date End Date Evelyne Hunt APRN [address] [place] [address] PCP - General Internal Medicine 09/23/17 documented as of this encounter
--- OUTSIDE RECORDS SUMMARY | 2023-12-01 02:16 | XMS_ITS | Encounter Summary ---
Author Organization [facility] Address [facility] [place] [address] Care Team Providers Care Movement Education Specialist Name Role Phone Evelyne Hunt TENISHA Primary Care Provider [phone] Encounter Details Date Type Department Care Team (Late st Contact Info) Description 01/31/2020 Orders Only Cardiology at [address] [phone] Franklyn Toure MD [facility] [place] [address] SOB (shortness of breath) (Primary Dx); Chest pain, unspecified type Social History Tobacco Use Types [...] 9:[address] [place] [address] Xavier Malhotra MD [facility] [place] [address] 12/29/2023 Hospital Encounter [place] [address] Xavier Malhotra MD [facility] [place] [address] Paroxysmal atrial fibrillation 12/29/2023 7:30 AM EDT - 12/29/2023 12:00 PM EDT Surgery [place] [phone] Xavier Malhotra MD [facility] [address] [place] [address] ELECTROPHYSIOLOGY PROCEDURE 01/14/2024 10:40 AM EDT Office Visit Cardiology at [address] [phone] Carmen Castaneda PA [facility] [place] [address] Scheduled Procedures Name Priority Associated Diagnoses Date/Ti me TRANSESOPHAGEAL ECHO DURING CATH/EP PROCEDURE Paroxysmal atrial fibrillation 12/29/2023 7:30 AM EDT documented as of this encounter Goals Goal Patient Goal Type Associated Problems Recent Progress Patient-Stated? Author [facility] Medication Compliance and Understanding Patient Facing Action Plan Lani Love, [facility] Note: Maintain [...] the number below. ? Electronically signed by: Zan Casiano MD, [facility] ([phone]), at 02/01/2020 9:34 AM Narrative 02/01/2020 9:34 AM EDT EXAMINATION: XR [...] report, please contact the number below. Franklyn PARHAM DX ORDERABLES documented in this encounter Visit Diagnoses Diagnosis SOB (shortness of breath)- Primary Shortness of breath Chest pain, unspecified type Chest pain, unspecified type SOB (shortness of breath) Shortness of breath Paroxysmal atrial fibrillation Atrial fibrillation Paroxysmal atrial fibrillation Atrial fibrillation documented in this encounter Care Teams Movement Education Specialist Relationship Specialty Start Date End Date Evelyne Hunt APRN [address] [place] [address] PCP - General Internal Medicine 09/23/17 documented as of this encounter
--- OUTSIDE RECORDS SUMMARY | 2023-12-01 02:16 | XMS_ITS | Encounter Summary ---
Author Organization [facility] [place] [address] Care Team Providers Care Machine Cage Maker Name Role Phone Evelyne Hunt Dat STEVEN Primary Care Provider [phone] Encounter Details Date Type Department Care Team (Late st Contact Info) Description 12/10/2019 External Results Hematology and Oncology at [place] [phone] Mary Mclain, RN Social History Tobacco Use [...] 9:[address] [place] [address] Xavier Malhotra MD [facility] [place] [address] 12/29/2023 Hospital Encounter Electrophysiology Lab at [place] [phone] Xavier Malhotra MD [facility] [address] [place] [phone] Paroxysmal atrial fibrillation 12/29/2023 7:30 AM EDT - 12/29/2023 12:00 PM EDT Surgery [place] [phone] Xavier Malhotra MD [facility] [place] [address] ELECTROPHYSIOLOGY PROCEDURE 01/14/2024 10:40 AM EDT Office Visit Cardiology at [address] [phone] Carmen Castaneda PA [facility] CARDIOLOGY [place], [place] [phone] Scheduled Procedures Name Priority Associated Diagnoses Date/Ti me TRANSESOPHAGEAL ECHO DURING CATH/EP PROCEDURE Paroxysmal atrial fibrillation 12/29/2023 7:30 AM EDT documented as of this encounter Procedures Procedure Name Priority Date/Time Associated Diagnosis Comments EXTERNAL LAB CBC CMP THYROID RESULTS PANEL Routine 12/09/2019 EXTERNAL LAB CBC CMP THYROID RESULTS PANEL Routine 12/09/2019 CBC (WITH DIFF) Routine 12/06/2019 CBC (WITH DIFF) Routine 12/06/2019 documented in this encounter Results * CBC / CMP / Thyroid External Results (12/09/2019) Historical Provider EXTERNAL LAB TONJA SUAREZ * CBC / CMP / Thyroid External Results (12/09/2019) Historical Provider EXTERNAL LAB TONJA SUAREZ * CBC (with Diff) (12/06/2019) Blood specimen (specimen) Historical Provider HEMATOLOGY ORDERA BLES * (ABNORMAL) CBC (with Diff) (12/06/2019) White Blood Cell 2.98(ExtL) Hemoglobin 11.3(Exter nal Lab) Hematocrit 32.4(ExtL) Platelet 158(Miter Operator al Lab) Neutrophil % 40.6(Exter nal Lab) ANC 1,210(Exte rnal Lab) Blood specimen (specimen) 12/06/2019 Natalie Vallejo MD HEMATOLOGY ORDERABLE S documented in this encounter Visit Diagnoses Not on filedocumented in this encounter Care Teams Machine Cage Maker Relationship Specialty Start Date End Date Evelyne Hunt APRN [address] [place] [address] PCP - General Internal Medicine 09/23/17 documented as of this encounter
--- OUTSIDE RECORDS SUMMARY | 2023-12-01 02:16 | XMS_ITS | Encounter Summary ---
Author Organization [facility] [place] [address] Care Team Providers Care Umbrella Tipper Machine Name Role Phone Kiki Huntyce Dat STEVEN Primary Care Provider [phone] Reason for Visit * Reason Onset Date Comments Palpitations 01/28/2020 Encounter Details Date Type Department Care Team (Late st Contact Info) Description 01/28/2020 Telephone [place] [phone] Mary Mclain RN Palpitations Social History Tobacco [...] Telephone Encounter - Mary Mclain RN - 01/28/2020 9:21 AM EDT Pt states she went to [facility] ER yesterday for palpitations. States she had a CT and an EKG. They toldher that her thyroid levels are quite high. She is wearing a heart monitor for 72 hours. She is going to call her PCP for further instructions/advice. documented in this encounter Plan of Treatment Upcoming Encounters Date Type Department Care Team (Latest Contact Info) Description 12/25/2023 9:[address] [place] [place] [address] Xavier Malhotra MD [facility] [place] [address] 12/29/2023 Hospital Encounter [place] [phone] Xavier Malhotra MD [facility] [place] [address] Paroxysmal atrial fibrillation 12/29/2023 7:30 AM EDT - 12/29/2023 12:00 PM EDT Surgery [place] [phone] Xavier Malhotra MD [facility] [place] [address] ELECTROPHYSIOLOGY PROCEDURE 01/14/2024 10:40 AM EDT Office Visit Cardiology at [address] [phone] Carmen Castaneda PA [facility] [place] [address] Scheduled Procedures Name Priority Associated Diagnoses Date/Ti me TRANSESOPHAGEAL ECHO DURING CATH/EP PROCEDURE Paroxysmal atrial fibrillation 12/29/2023 7:30 AM EDT documented as of this encounter Goals Goal Patient Goal Type Associated Problems Recent Progress Patient-Stated? Author DH [place] Medication Compliance and Understanding Patient Facing Action Plan No Lani Vargas, [facility] Note: Maintain control of disease for as long as possible as assessed by tumor marker levels and scans in clinic every 3 to 6 months documented as of this encounter Visit Diagnoses Not on filedocumented in this encounter Care Teams Umbrella Tipper Machine Relationship Specialty Start Date End Date Evelyne Hunt APRN [address] [place] [address] PCP - General Internal Medicine 09/23/17 documented as of this encounter
--- OUTSIDE RECORDS SUMMARY | 2023-12-01 02:16 | XMS_ITS | Encounter Summary ---
Author Organization [facility] [place] [address] Care Team Providers Care Turret Lathe Tender Name Role Phone MarileeEvelyne APRN Primary Care Provider [phone] Reason for Referral * Diagnostic Test (Routine) - Closed Specialty Diagnoses / Procedures Referred By Contac t Referred To Contact Cardiology Diagnoses Nonrheumatic aortic valve stenosis Procedures Echocardiogram Transthoracic([facility]) Franklyn Toure MD [facility] [place] [address] [facility] [place] [address] Referral ID Status Reason Start Date Expiration Date V isits Requested Visits Authorized [id number] Closed Specialty Service Requested 05/18/2019 05/17/2020 1 1 Reason for Visit * Diagnostic Test (Routine) - Closed Specialty Diagnoses / Procedures Referred By Contac t Referred To Contact Cardiology Diagnoses Nonrheumatic aortic valve stenosis Procedures Echocardiogram Transthoracic([facility]) Franklyn Toure MD [facility] [place] [address] [facility] [place] [address] Referral ID Status Reason Start Date Expiration Date V isits Requested Visits Authorized [id number] Closed Specialty Service Requested 05/18/2019 05/17/2020 1 1 Encounter Details Date Type Department Care Team (Latest Contact Info) Description 02/01/2020 9:07 AM EDT - 02/01/2020 11:59 PM EDT Hospital Encounter Non-Invasive Cardiology Lab [place] [address] Franklyn Toure MD [facility] [place] [address] Nonrheumatic aortic valve stenosis Discharge Disposition: Home [...] 9:[address] [place] [phone] Xavier Malhotra MD [facility] [place] [address] 12/29/2023 Hospital Encounter [place] [phone] Xavier Malhotra MD [facility] [place] [address] Paroxysmal atrial fibrillation 12/29/2023 7:30 AM EDT - 12/29/2023 12:00 PM EDT Surgery [place] [phone] Xavier Malhotra MD [facility] [place] [address] ELECTROPHYSIOLOGY PROCEDURE 01/14/2024 10:40 AM EDT Office Visit Cardiology at [address] [phone] Carmen Castaneda PA [facility] [place] [address] Scheduled Procedures Name Priority Associated Diagnoses Date/Ti [...] Date/Time Associated Diagnosis Comments ECHO COMPLETE Routine 02/01/2020 10:17 AM EDT Nonrheumatic aortic valve stenosis documented in this encounter Results * ECHO COMPLETE (02/01/2020 10:17 AM EDT) EF 75 [employer] SYSTEM Anatomical Region Laterality Modality Other 02/01/2020 Narrative 02/01/2020 10:58 AM EDT Procedure: ?Transthoracic Echocardiogram Patient: ?SRIDHAR FLORES Eber ? (Age): 1960(59y) Med Rec#: ? [id number] ?Sex: ?F ? Site Loc: ? [facility] ?Ht / Wt: ??164(cm)/54(kg) Pt. Loc: ?[place] [facility] ?BSA: ?1.58 Study Date: ?? 02/01/2020 ?Pt. Type: Outpatient Tape: ? Referring: Franklyn Toure ([id number]) Reading: Gabe Mancera ([id number]) Teachers' Assistant: Guanaco Rodriguez Diagnosis: *Nonrheumatic aortic (valve) stenosis (I35.0) BP: ? 150/100 SUMMARY: 1. Technically limited imaging. 2. The left ventricular chamber size is normal. ??Basal septal hypertrophy is observed (1.7 cm). ??Global left ventricular systolic function appears hyperdynamic. ??The quantitative left ventricular ejection fraction by biplane Arndt's method is 75%. 3. There is LV mid-cavitary flow acceleration (obstruction). ??There is also systolic anterior motion of the mitral valve is present with what appears to be mild left ventricular outflow tract obstruction (peak resting LVOT gradient of approximately 14 mmHg). 4. The right ventricle is normal in size. ??Right ventricular global systolic function is normal. ??The estimated pulmonary artery systolic pressure is 27 mmHg. 5. The aortic valve is not well visualized but appears bicommissural and heavily calcified. ??There appears to be moderate aortic valve stenosis. Doppler assessment is made less accurate by LV obstructive physiology. The calculated aortic valve area is 1.34 cm2. ??The mean trans-valvular gradient across ??the aortic valve is 33 mmHg. ??Moderate (2+/4+) aortic valve regurgitation is present. 6. There is mild dilatation of the aortic root (4 cm). 7. See remainder of report for additional findings. ??Compared to the outside TTE dated 05/05/19, findings appear qualitatively similar. Findings ? : Study Quality: ? Technically limited Left Ventricle: ? The left ventricular chamber size is normal. ?Basal septal hypertrophy is observed. ?Mild LVOT obstruction is present. ?No ventricular septal defect is visualized. ?Global left ventricular systolic function appears hyperdynamic. ?The visually estimated left ventricular ejection fraction is 80%. ?The quantitative left ventricular ejection fraction by biplane Arndt's method is 75%. ?There are no left ventricular segmental wall motion abnormalities. ?Assessment of diastolic function is indeterminate. ?Doppler assessment is consistent with normal left sided filling pressure. Left Atrium: ? The left atrium is normal in size.(19ml/m2) Right Ventricle: ? The right ventricle is normal in size. ?Right ventricular global systolic function is normal. ?The estimated pulmonary artery systolic pressure is 27 mmHg. ?The estimated right atrial pressure is 3 mmHg. Right Atrium: ? The right atrium is normal in size. Aortic Valve: ? The aortic valve is not well visualized. ?The aortic valve is bicommissural. 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 ?Systolic excursion of the aortic valve cusps is reduced. ?There is aortic annular calcification. ?The peak instantaneous trans-valvular gradient across ??the aortic valve is 62 mmHg.Acquired from the apical position with the non-imaging probe. ?The mean trans-valvular gradient across ??the aortic valve is 33 mmHg. SVI= 59ml/m2. DOI= .43 ?The calculated aortic valve area is 1.34 cm2. ?There is moderate aortic valve stenosis. ?Moderate (2+/4+) aortic valve regurgitation is present. ?There is flow reversal noted in the descending aorta Doppler signal. Mitral Valve: ? The mitral valve leaflets are mildly thickened. ?Mitral valve leaflet mobility appears normal. ?There is trace mitral regurgitation present. ?Systolic anterior motion of the mitral valve is present with left ventricular outflow tract obstruction. Tricuspid Valve: ? The tricuspid valve is probably normal. ?There is trace tricuspid regurgitation present. Pulmonic Valve: ? The pulmonic valve is not well visualized. Pericardium: ? A trivial pericardial effusion is visualized. Aorta: ? There is mild dilatation of the aortic root. ?The ascending aorta was not well visualized. ?The aortic arch is normal in size. Pulmonary Artery: ? The main pulmonary artery is not well visualized. Venous: ? The inferior vena cava appears normal in size. ?There is a greater than 50% respiratory change in the inferior vena cava dimension. Misc: ? See remainder of report for additional findings. ?Two-dimensional echo, spectral Doppler and color Doppler performed. Chambers 2D ?Value ?Units (Range) ? RVIDd ??Base ? 2.8 ?cm ? IVSd (2D) ? 1.68 ? cm ? LVPWd (2D) ?1.02 ? cm ? IVS:LVPW ratio (2D) 1.65 ? ratio ? RWT (2D) ?0.81 ? ratio ? RWT PW (2D) ? 0.61 ? ratio ? LVIDd (2D) ?3.32 ? cm ? LVIDd (2D) index ?2.1 ?cm/m2 ? Ao root diameter (2D4 ?cm (2.1 - 3.6) ? Volumes/Mass ?Value ?Units (Range) ? LA Area 4 CH ?11 ? cm2 (<21) ? RA AREA 4CH ? 12 ? cm2 ? LA ESV BP (MOD) inde19.44 ?ml/m2 ? LV ESV SP 4CH (MOD) 9.53 ? ml ? LV ESV SP 2CH (MOD) 7.68 ? ml ? LV EDV BP ? 33.7 ? ml ? LV ESV BP ? 8.45 ? ml ? LV EDV BP index ? 21.34 ?ml/m2 ? LV ESV BP index ? 5.35 ? ml/m2 ? BP EF (MOD) ? 74.93 ?% ? LV mass (2D) ?151.67 ? g ? LV mass (2D) index ??96.05 ?g/m2 ? Diastolic/Systolic Function ?Value ?Units (Range) ? MV E-wave Vmax ?0.52 ? m/sec ? MV A-wave Vmax ?0.84 ? m/sec ? MV E:A ratio ?0.62 ? ratio ? LV septal e' Vmax ?? 0.05 ? m/sec ? LV lateral e' Vmax ??0.09 ? m/sec ? LV average e' Vmax ??0.07 ? m/sec ? LV E:e' septal ratio10.44 ?ratio ? LV E:e' lateral rati5.8 ?ratio ? LV average E:e' rati7.46 ? ratio ? Aortic Valve ?Value ?Units (Range) ? AV Vmax ? 3.93 ? m/sec ? AV VTI ?64.5 ? cm ? AV peak gradient ?62 ? mmHg ? AV mean gradient ?33 ? mmHg ? LVOT diameter ? 2 ?cm ? LVOT Vmax ? 1.74 ? m/sec ? LVOT VTI ?27.5 ? cm ? LVOT peak gradient ??12 ? mmHg ? LVOT mean gradient ??6 ?mmHg ? DOI (VTI) ? 0.43 ? ratio ? DOI (Vmax) ?0.44 ? ratio ? SV LVOT ? 86.35 ?ml ? SV LVOT Index ? 59 ? ml/m2 ? SUDHAKAR (continuity Vmax1.34 ? cm2 ? SUDHAKAR (continuity Vmax0.88 ? cm2/m2 ? SUDHAKAR (continuity VTI)1.34 ? cm ? SUDHAKAR (continuity VTI)0.85 ? cm2/m2 ? Tricuspid Valve ?Value ?Units (Range) ? TAPSE ? 1.7 ?cm ? RV lateral s' Vmax ??0.11 ? m/sec ? TR Vmax ? 2.46 ? m/sec ? TR peak gradient ?24 ? mmHg ? RAP ? 3 ?mmHg ? RVSP ?27 ? mmHg ? Wall Motion: Segment Name ?Rest ? Base-Anteroseptal ?? Normal ? Base-Anterior ? Normal ? Base-Anterolateral ??Normal ? Base-Posterolateral Normal ? Base-Inferior ? Normal ? Base-Inferoseptal ?? Normal ? Mid-Anteroseptal ?Normal ? Mid-Anterior ?Normal ? Mid-Anterolateral ?? Normal ? Mid-Posterolateral ??Normal ? Mid-Inferior ?Normal ? Mid-Inferoseptal ?Normal ? [place]-Septal ? Normal ? [place]-Anterior ? Normal ? [place]-Lateral ?Normal ? [place]-Inferior ? Normal ? [place]-Tip ?Normal ? This report has been electronically signed by: Gabe Mancera MD ? 02/01/2020 10:57:04 Images reviewed and interpretation verified [facility] Cardiac Ultrasound Laboratory Procedure Note Gabe Mancera MD - 02/01/2020 Procedure: Transthoracic Echocardiogram Patient: SRIDHAR Velázquez DOB(Age): 1960(59y) Med Rec#: [id number] Sex: F Site Loc: [facility] [facility] Ht / Wt: 164(cm)/54(kg) Pt. Loc: [place] [facility] BSA: 1.58 Study Date: 02/01/2020 Pt. Type: Outpatient Tape: Referring: Franklyn Toure ([id number]) Reading: Gabe Mancera ([id number]) Teachers' Assistant: Guanaco Rodriguez Diagnosis: *Nonrheumatic aortic (valve) stenosis (I35.0) BP: 150/100 SUMMARY: 1. Technically limited imaging. 2. The left [...] TTE dated 05/05/19, findings appear qualitatively similar. Findings : Study Quality: Technically limited Left Ventricle: The left ventricular chamber size is normal. Basal septal hypertrophy is observed. Mild LVOT obstruction is present. No ventricular septal defect is visualized. Global left ventricular systolic function appears hyperdynamic. The visually estimated left ventricular ejection fraction is 80%. The quantitative left ventricular ejection fraction by biplane Arndt's method is 75%. There are no left ventricular segmental wall motion abnormalities. Assessment of diastolic function is indeterminate. Doppler assessment is consistent with normal left sided filling pressure. Left Atrium: The left atrium is normal in size.(19ml/m2) Right Ventricle: The right ventricle is normal in size. Right ventricular global systolic function is normal. The estimated pulmonary artery systolic pressure is 27 mmHg. The estimated right atrial pressure is 3 mmHg. Right Atrium: The right atrium is normal in size. Aortic Valve: The aortic valve is not well visualized. The aortic valve is bicommissural. There is fusion of theright and left cusps. Systolic excursion of the aortic valve cusps is reduced. There is aortic annular calcification. The peak instantaneous trans-valvular gradient across the aortic valve is 62 mmHg.Acquired from the apical position with the non-imaging probe. The mean trans-valvular gradient across the aortic valve is 33 mmHg. SVI= 59ml/m2. DOI= .43 The calculated aortic valve area is 1.34 cm2. There is moderate aortic valve stenosis. Moderate (2+/4+) aortic valve regurgitation is present. There is flow reversal noted in the descending aorta Doppler signal. Mitral Valve: The mitral valve leaflets are mildly thickened. Mitral valve leaflet mobility appears normal. There is trace mitral regurgitation present. Systolic anterior motion of the mitral valve is present with left ventricular outflow tract obstruction. Tricuspid Valve: The tricuspid valve is probably normal. There is trace tricuspid regurgitation present. Pulmonic Valve: The pulmonic valve is not well visualized. Pericardium: A trivial pericardial effusion is visualized. Aorta: There is mild dilatation of the aortic root. The ascending aorta was not well visualized. The aortic arch is normal in size. Pulmonary Artery: The main pulmonary artery is not well visualized. Venous: The inferior vena cava appears normal in size. There is a greater than 50% respiratory change in the inferior vena cava dimension. Misc: See remainder of report for additional findings. Two-dimensional echo, spectral Doppler and color Doppler performed. Chambers 2D Value Units (Range) RVIDd Base 2.8 cm IVSd (2D) 1.68 cm LVPWd (2D) 1.02 cm IVS:LVPW ratio (2D) 1.65 ratio RWT (2D) 0.81 ratio RWT PW (2D) 0.61 ratio LVIDd (2D) 3.32 cm LVIDd (2D) index 2.1 cm/m2 Ao root diameter (2D4 cm (2.1 - 3.6) Volumes/Mass Value Units (Range) LA Area 4 CH 11 cm2 (<21) RA AREA 4CH 12 cm2 LA ESV BP (MOD) inde19.44 ml/m2 LV ESV SP 4CH (MOD) 9.53 ml LV ESV SP 2CH (MOD) 7.68 ml LV EDV BP 33.7 ml LV ESV BP 8.45 ml LV EDV BP index 21.34 ml/m2 LV ESV BP index 5.35 ml/m2 BP EF (MOD) 74.93 % LV mass (2D) 151.67 g LV mass (2D) index 96.05 g/m2 Diastolic/Systolic Function Value Units (Range) MV E-wave Vmax 0.52 m/sec MV A-wave Vmax 0.84 m/sec MV E:A ratio 0.62 ratio LV septal e' Vmax 0.05 m/sec LV lateral e' Vmax 0.09 m/sec LV average e' Vmax 0.07 m/sec LV E:e' septal ratio10.44 ratio LV E:e' lateral rati5.8 ratio LV average E:e' rati7.46 ratio Aortic Valve Value Units (Range) AV Vmax 3.93 m/sec AV VTI 64.5 cm AV peak gradient 62 mmHg AV mean gradient 33 mmHg LVOT diameter 2 cm LVOT Vmax 1.74 m/sec LVOT VTI 27.5 cm LVOT peak gradient 12 mmHg LVOT mean gradient 6 mmHg DOI (VTI) 0.43 ratio DOI (Vmax) 0.44 ratio SV LVOT 86.35 ml SV LVOT Index 59 ml/m2 SUDHAKAR (continuity Vmax1.34 cm2 SUDHAKAR (continuity Vmax0.88 cm2/m2 SUDHAKAR (continuity VTI)1.34 cm SUDHAKAR (continuity VTI)0.85 cm2/m2 Tricuspid Valve Value Units (Range) TAPSE 1.7 cm RV lateral s' Vmax 0.11 m/sec TR Vmax 2.46 m/sec TR peak gradient 24 mmHg RAP 3 mmHg RVSP 27 mmHg Wall Motion: Segment Name Rest Base-Anteroseptal Normal Base-Anterior Normal Base-Anterolateral Normal Base-Posterolateral Normal Base-Inferior Normal Base-Inferoseptal Normal Mid-Anteroseptal Normal Mid-Anterior Normal Mid-Anterolateral Normal Mid-Posterolateral Normal Mid-Inferior Normal Mid-Inferoseptal Normal [place]-Septal Normal [place]-Anterior Normal [place]-Lateral Normal [place]-Inferior Normal [place]-Tip Normal This report has been electronically signed by: Gabe Mancera MD 02/01/2020 10:57:04 Images reviewed and interpretation verified [facility] Cardiac Ultrasound Laboratory Franklyn Toure MD ECHO ORDERABLES documented in this encounter Visit Diagnoses Diagnosis Nonrheumatic aortic valve stenosis Aortic valve disorders Paroxysmal atrial fibrillation Atrial fibrillation Paroxysmal atrial fibrillation Atrial fibrillation documented in this encounter Care Teams Turret Lathe Tender Relationship Specialty Start Date End Date Evelyne Hunt APRN [address] [place] [address] PCP - General Internal Medicine 09/23/17 documented as of this encounter
--- OUTSIDE RECORDS SUMMARY | 2023-12-01 02:16 | XMS_ITS | Encounter Summary ---
Author Organization [facility] [place] [address] Care Team Providers Care Balloon Artist Name Role Phone MarileeEvelyne APRN Primary Care Provider [phone] Reason for Visit * Reason Onset Date Comments Palpitations 01/27/2020 Encounter Details Date Type Department Care Team (Late st Contact Info) Description 01/27/2020 Telephone [place] [phone] Jaqueline Doran RN Palpitations Social History Tobacco Use Types [...] Telephone Encounter - Jaqueline Doran RN - 01/27/2020 9:32 AM EDT Received a call from Gabi stating that her heart is racing. She feels it periodically like a rushto the head since yesterday afternoon. She recently started taking zejula 2 days ago. She has a history of aortic stenosis and SVT. Denies chest pain and SOB. Denies this to be a panic attack because she never had one. Consulted with Dr. Vallejo and per her to get to the ED for evaluation and consultation with her district court judge. Called patient back with this instructions and she's heading to her nearest ED harriett. documented in this encounter Plan of Treatment Upcoming Encounters Date Type Department Care Team (Latest Contact Info) Description 12/25/2023 9:[address] Scan at [place] [phone] Xavier Malhotra MD [facility] [place] [address] 12/29/2023 Hospital Encounter [place] [address] Xavier Malhotra MD [facility] [place] [address] Paroxysmal atrial fibrillation 12/29/2023 7:30 AM EDT - 12/29/2023 12:00 PM EDT Surgery [place] [phone] Xavier Malhotra MD [facility] [place] [address] ELECTROPHYSIOLOGY PROCEDURE 01/14/2024 10:40 AM EDT Office Visit Cardiology at [place] [phone] Cramen Castaneda PA [facility] [place] [address] Scheduled Procedures Name Priority Associated Diagnoses Date/Ti me TRANSESOPHAGEAL ECHO DURING CATH/EP PROCEDURE Paroxysmal atrial fibrillation 12/29/2023 7:30 AM EDT documented as of this encounter Goals Goal Patient Goal Type Associated Problems Recent Progress Patient-Stated? Author DH [place] Medication Compliance and Understanding Patient Facing Action Plan Lani Love, [facility] Note: Maintain control of disease for as long as possible as assessed by tumor marker levels and scans in clinic every 3 to 6 months documented as of this encounter Visit Diagnoses Not on filedocumented in this encounter Care Teams Balloon Artist Relationship Specialty Start Date End Date Evelyne Hunt APRN [address] [place] [address] PCP - General Internal Medicine 09/23/17 documented as of this encounter
--- OUTSIDE RECORDS SUMMARY | 2023-12-01 02:16 | XMS_ITS | Encounter Summary ---
Author Organization Formerly [facility] [place] [address] Care Team Providers Care Reimbursement Counselor Name Role Phone Evelyne Hunt Dat STEVEN Primary Care Provider [phone] Encounter Details Date Type Department Care Team (Late st Contact Info) Description 01/24/2020 External Results Hematology and Oncology at [place] [phone] Mary Mclain, RN Social History Tobacco Use [...] 9:[address] [place] [address] Xavier Malhotra MD [facility] [place] [address] 12/29/2023 Hospital Encounter Electrophysiology Lab at [place] [phone] Xavier Malhotra MD [facility] [address] [place] [id number] Paroxysmal atrial fibrillation 12/29/2023 7:30 AM EDT - 12/29/2023 12:00 PM EDT Surgery [place] [phone] Xavier Malhotra MD [facility] [place] [address] ELECTROPHYSIOLOGY PROCEDURE 01/14/2024 10:40 AM EDT Office Visit Cardiology at [address] [address] Carmen Castaneda PA [facility] [address] Scheduled Procedures Name Priority Associated Diagnoses Date/Ti me TRANSESOPHAGEAL ECHO DURING CATH/EP PROCEDURE Paroxysmal atrial fibrillation 12/29/2023 7:30 AM EDT documented as of this encounter Goals Goal Patient Goal Type Associated Problems Recent Progress Patient-Stated? Author [facility] Medication Compliance and Understanding Patient [...] LAB CBC CMP THYROID RESULTS PANEL Routine 01/24/2020 EXTERNAL LAB CBC CMP THYROID RESULTS PANEL Routine 01/24/2020 documented in this encounter Results * CBC / CMP / Thyroid External Results (01/24/2020) Historical Provider EXTERNAL LAB TONJA SUAREZ * (ABNORMAL) CBC / CMP / Thyroid External Results (01/24/2020) White Blood Cell 6.15(Exte rnal Lab) Hemoglobin 13.1(Exte rnal Lab) Hematocrit 37.3(Exte rnal Lab) Platelet 263(Exter nal Lab) Sodium 136(Exter nal Lab) Potassium 3.5(Exter nal Lab) Chloride 99(Branding Machine Tender al Lab) Carbon Dioxide 28(Branding Machine Tender al Lab) Blood Urea Nitrogen 8(Externa l Lab) Creatinine 0.63(Exte rnal Lab) Calcium 9.9(Exter nal Lab) Protein, Total 7.8(Exter nal Lab) Albumin 4.1(Exter nal Lab) Bilirubin, Total 1.0(Exter nal Lab) Alkaline Phosphatase 70(Branding Machine Tender al Lab) Aspartate Aminotransferase 18(Branding Machine Tender al Lab) Alanine Aminotransferase 22(Branding Machine Tender al Lab) Segmented Neutrophils Manual 67.6(Exte rnal Lab) Segs Absolute Manual 4,160(Ext ernal Lab) 01/24/2020 Natalie Vallejo MD EXTERNAL LAB ORDERAB LES documented in this encounter Visit Diagnoses Not on filedocumented in this encounter Care Teams Reimbursement Counselor Relationship Specialty Start Date End Date Evelyne uHnt APRN [address] [place] [address] PCP - General Internal Medicine 09/23/17 documented as of this encounter
--- OUTSIDE RECORDS SUMMARY | 2023-12-01 02:16 | XMS_ITS | Encounter Summary ---
Author Organization [facility] [place] [address] Care Team Providers Care Agronomy Instructor Name Role Phone Evelyne Hunt Dat STEVEN Primary Care Provider [phone] Encounter Details Date Type Department Care Team (Late st Contact Info) Description 11/22/2019 Orders Only [place] [phone] Gabriela Singh MD [facility] [place] [address] Social History Tobacco Use Types Packs/Day Years [...] as of this encounter Progress Notes * Gabriela Singh MD - 11/22/2019 9:26 AM EDT Bevacizumab held for Udip +3 protein. Will recheck and send UA and Urine Cx. BP 151/85 today, whichis stable for Ivana. Will defer future management to Dr. Vallejo. documented in this encounter Plan of Treatment Upcoming Encounters Date Type Department Care Team (Latest Contact Info) Description 12/25/2023 9:[address] [place] [address] Xavier Malhotra MD [facility] [place] [address] 12/29/2023 Hospital Encounter Electrophysiology Lab at [place] [phone] Xavier Malhotra MD [facility] [place] [place] [address] Paroxysmal atrial fibrillation 12/29/2023 7:30 AM EDT - 12/29/2023 12:00 PM EDT Surgery [place] [address] Xavier Malhotra MD [facility] [place] [place] [address] ELECTROPHYSIOLOGY PROCEDURE 01/14/2024 10:40 AM EDT Office Visit Cardiology at [place] [phone] Carmen Castaneda PA [facility] [place] [address] Scheduled Procedures Name Priority Associated Diagnoses Date/Ti me TRANSESOPHAGEAL ECHO DURING CATH/EP PROCEDURE Paroxysmal atrial fibrillation 12/29/2023 7:30 AM EDT documented as of this encounter Visit Diagnoses Not on filedocumented in this encounter Care Teams Agronomy Instructor Relationship Specialty Start Date End Date Evelyne Hunt APRN [address] [place] [address] PCP - General Internal Medicine 09/23/17 documented as of this encounter
--- OUTSIDE RECORDS SUMMARY | 2023-12-01 02:16 | XMS_ITS | Encounter Summary ---
Author Organization [facility] [place] [address] Care Team Providers Care Shearer Screen Measurer And Trimmer Name Role Phone Kiki Huntyce Dat STEVEN Primary Care Provider [phone] Reason for Visit * Reason Onset Date Comments Other 11/25/2019 Encounter Details Date Type Department Care Team (Late st Contact Info) Description 11/25/2019 Telephone Gynecology [place] [address] Jaqueline Doran RN Other Social History Tobacco [...] Telephone Encounter - Jaqueline Doran RN - 11/25/2019 9:52 AM EDT Called to inform that lab slips are faxed to [phone] and sent it to her via mail too. documented in this encounter Plan of Treatment Upcoming Encounters Date Type Department Care Team (Latest Contact Info) Description 12/25/2023 9:[address] [place] [phone] Xavier Malhotra MD [facility] [place] [address] 12/29/2023 Hospital Encounter Electrophysiology Lab at [place] [address] Xavier Malhotra MD [facility] [place] [address] Paroxysmal atrial fibrillation 12/29/2023 7:30 AM EDT - 12/29/2023 12:00 PM EDT Surgery Electrophysiology Lab at [place] [address] Xavier Malhotra MD [facility] [place] [address] ELECTROPHYSIOLOGY PROCEDURE 01/14/2024 10:40 AM EDT Office Visit Cardiology at [place] [address] Carmen Castaneda PA [facility] [place] [address] Scheduled Procedures Name Priority Associated Diagnoses Date/Ti me TRANSESOPHAGEAL ECHO DURING CATH/EP PROCEDURE Paroxysmal atrial fibrillation 12/29/2023 7:30 AM EDT documented as of this encounter Visit Diagnoses Not on filedocumented in this encounter Care Teams Shearer Screen Measurer And Trimmer Relationship Specialty Start Date End Date Evelyne Hunt APRN [address] [place] [address] PCP - General Internal Medicine 09/23/17 documented as of this encounter
--- OUTSIDE RECORDS SUMMARY | 2023-12-01 02:16 | XMS_ITS | Encounter Summary ---
Author Organization Formerly [facility] Address [facility] [place] [address] Care Team Providers Care Hearing Dog Trainer Name Role Phone Kiki Huntyce Dat STEVEN Primary Care Provider [phone] Reason for Referral * Diagnostic Test (Routine) - Denied Specialty Diagnoses / Procedures Referred By Contac t Referred To Contact Radiology Diagnoses Malignant neoplasm of ovary, unspecified laterality Procedures CT Chest Abdomen Pelvis w Contrast (Generic) Natalie Vallejo MD [facility] [place] [address] [facility] [place] [address] Referral ID Status Reason Start Date Expiration Date V isits Requested Visits Authorized [id number] Denied Specialty Service Requested 12/30/2019 06/19/2020 1 0 Reason for Visit * Reason Onset Date Comments Other 12/13/2019 Encounter Details Date Type Department Care Team (Late st Contact Info) Description 12/13/2019 Telephone [place] [address] Natalie Valeljo MD [facility] [place] [address] Other Social History Tobacco Use Types Packs/Day [...] 9:[address] Scan at [place] [phone] Xavier Malhotra MD [facility] [place] [address] 12/29/2023 Hospital Encounter Elect[place] [address] Xavier Malhotra MD [facility] [place] [address] Paroxysmal atrial fibrillation 12/29/2023 7:30 AM EDT - 12/29/2023 12:00 PM EDT Surgery Electrophysiology Lab at [place] [address] Xavier Malhotra MD [facility] [address] [place] [address] ELECTROPHYSIOLOGY PROCEDURE 01/14/2024 10:40 AM EDT Office [place] [address] Carmen Castaneda PA [facility] [place] [address] Scheduled Procedures Name Priority Associated Diagnoses Date/Ti me TRANSESOPHAGEAL ECHO DURING CATH/EP PROCEDURE Paroxysmal atrial fibrillation 12/29/2023 7:30 AM EDT documented as of this encounter Results * CT Chest Abdomen [...] ? Electronically signed by: Jesus Childress MD, [facility] ([phone]), at 12/31/2019 9:30 AM Narrative 12/31/2019 9:30 [...] below. 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
--- OUTSIDE RECORDS SUMMARY | 2023-12-01 02:16 | XMS_ITS | Encounter Summary ---
Author Organization [facility] [place] [address] Care Team Providers Care Feltmaker Name Role Phone Kiki Huntjunaid Daugherty APRN Primary Care Provider [phone] Encounter Details Date Type Department Care Team (Late st Contact Info) Description 01/28/2020 Telephone Cardiology at [address] [address] Misha Gutierrez [facility] [address] Social History Tobacco Use Types Packs/Day Years [...] encounter Miscellaneous Notes * Telephone Encounter - Misha Gutierrez DO - 01/28/2020 5:20 PM EDT Phone call: Request for Patient transfer or consultation Requesting physician: Dr. Arguello Location: [facility] primary care Indication for transfer request: consult for ? A-fib Pertinent clinical details: HPI: 59 yo female with a hx of moderate-severe with bicuspid aortic valve, SVT, hyothyroidism and stage IIIb high-grade ovarian cancer. Pt presented to the ED yesterday with complaints of palpitations and tachycardia different from hernormal SVT. Her SVT normally breaks with vagal maneuvers and this was different. Her EKG at that time showed mild sinus tachycardia. Per report CTA PE was performed which was unremarkable. Ultimatelyher workup in the ED was remarkable only for a mildly elevated TSH (? ~ 4.5) and pt was discharged home with a holter monitor and PCP follow-up. Today in her PCPs office pt was noted to have an irregular HR on pulse ox monitor, fluctuating fromthe high 80s to low 90s, however on exam pt had a regular HR in the 80s. PCP is calling asking about potential atrial fibrillation and if there is a need for adding metoprolol and anticoagulation. She does not have an EKG of the current rhythm but pt does currently have a holter monitor on. At this time multiple explanation for irregular rate on pulse ox including PVC, PAC, and natural variations in HR. Given low suspicion for AF and the fact that definite answer will be seen on Holter monitor recommended deferring anticoagulation and even if pt was in AF, her rate would be acceptableon her home diltiazem. Recommened waiting for final results of holter before making further changes. Misha Gutierrez DO Regional Operations Manager, PGY-5 01/28/2020 documented in this encounter Plan of Treatment Upcoming Encounters Date Type Department Care Team (Latest Contact Info) Description 12/25/2023 9:[address] [place] [address] Xavier Malhotra MD [facility] [place] [address] 12/29/2023 Hospital Encounter [place] [address] Xavier Malhotra MD [facility] [place] [address] Paroxysmal atrial fibrillation 12/29/2023 7:30 AM EDT - 12/29/2023 12:00 PM EDT Surgery [place] [address] Xavier Malhotra MD [facility] [place] [address] ELECTROPHYSIOLOGY PROCEDURE 01/14/2024 10:40 AM EDT Office Visit Cardiology at [address] [phone] Carmen Castaneda PA [facility] [place] [place] [address] Scheduled Procedures Name Priority Associated Diagnoses Date/Ti me TRANSESOPHAGEAL ECHO DURING CATH/EP PROCEDURE Paroxysmal atrial fibrillation 12/29/2023 7:30 AM EDT documented as of this encounter Goals Goal Patient Goal Type Associated Problems Recent Progress Patient-Stated? Author [facility] Medication Compliance and Understanding Patient Facing Action Plan No Lani Vargas, [facility] Note: Maintain control of disease for as long as possible as assessed by tumor marker levels and scans in clinic every 3 to 6 months documented as of this encounter Visit Diagnoses Not on filedocumented in this encounter Care Teams Feltmaker Relationship Specialty Start Date End Date Evelyne Hunt APRN [address] [place] [address] PCP - General Internal Medicine 09/23/17 documented as of this encounter
--- OUTSIDE RECORDS SUMMARY | 2023-12-01 02:16 | XMS_ITS | Encounter Summary ---
Author Organization [facility] [place] [address] Care Team Providers Care Employment Legal Assistant Name Role Phone Evelyne Hunt TENISHA Primary Care Provider [phone] Encounter Details Date Type Department Care Team (Late st Contact Info) Description 11/22/2019 Orders Only [place] [address] Gabriela Singh MD [facility] [place] [address] Ovarian cancer, lateral, stage IIIb high-grade serous/endometrioid, [...] 9:[address] [place] [phone] Xavier Malhotra MD [facility] ELECTROPHYSIOL [place]ENNA [place], [place] [phone] 12/29/2023 Hospital Encounter [place] [address] Xavier Malhotra MD [facility] [place] [address] Paroxysmal atrial fibrillation 12/29/2023 7:30 AM EDT - 12/29/2023 12:00 PM EDT Surgery [place] [address] Xavier Malhotra MD [facility] [place] [address] ELECTROPHYSIOLOGY PROCEDURE 01/14/2024 10:40 AM EDT Office Visit Cardiology at [address] [phone] Carmen Castaneda PA [facility] [place] [address] Scheduled Procedures Name Priority Associated Diagnoses Date/Ti me TRANSESOPHAGEAL ECHO DURING CATH/EP PROCEDURE Paroxysmal atrial fibrillation 12/29/2023 7:30 AM EDT documented as of this encounter Results * Urinalysis with reflex Culture (11/22/2019 11:20 AM EDT) Glucose, Urine Dipstick Negative Negative mg/dL [facility] Protein, Urine Dipstick Negative Negative mg/dL [facility] Bilirubin, Urine Dipstick Negative Negative mg/dL [facility] Comment: Clinical correlation required for positive Urine Bilirubin results as false positive may occur with some drugs and drug related products. If a false positive is suspected a serum total bilirubin should be considered if clinically indicated. Urobilinogen, Urine Dipstick Normal Normal mg/dL [facility] pH, Urn (dipstick) 7.5 5.0 - 8.0 [facility] Blood, Urine Dipstick Negative Negative mg/dL [facility] Ketone, Urine Dipstick Negative Negative mg/dL [facility] Nitrite, Urine Dipstick Negative Negative [facility] Leukocytes, Urine Dipstick Negative Negative [facility] Appearance, Urine Dipstick Clear Clear [facility] Specific Shirley Urine Automated 1.010 1.006 - 1.030 [facility] Color, Urine Dipstick Yellow Yellow [facility] Reflex to Culture No [facility] Urine specimen obtained by clean catch procedure (specimen) 11/22/2019 11:20 AM EDT 11/22/2019 11:29 AM EDT Narrative Resulting Agency Comment Spec In Lab Gabriela Singh MD URINE ORDERABLES Performing Organization Address City/State/[facility] Co de Phone Number [facility] [place] [address] documented in this encounter Visit Diagnoses Diagnosis Ovarian cancer, lateral, stage IIIb high-grade serous/endometrioid, 07/20/2019 s/p FREDI/BSO/oment/PPALND/RSReanstomosis Paroxysmal atrial fibrillation Atrial fibrillation Paroxysmal atrial fibrillation Atrial fibrillation documented in this encounter Care Teams Employment Legal Assistant Relationship Specialty Start Date End Date Evelyne Hunt APRN [address] [place] [address] PCP - General Internal Medicine 09/23/17 documented as of this encounter
--- OUTSIDE RECORDS SUMMARY | 2023-12-01 02:16 | XMS_ITS | Encounter Summary ---
Author Organization [facility] [place] [address] Care Team Providers Care Web Feeder Name Role Phone Kiki Huntyce Dat STEVEN Primary Care Provider [phone] Reason for Visit * Reason Onset Date Comments Results 12/28/2019 Encounter Details Date Type Department Care Team (Late st Contact Info) Description 12/28/2019 Telephone [place] [phone] Jaqueline Doran RN Results Social History Tobacco [...] Telephone Encounter - Jaqueline Doran RN - 12/28/2019 4:42 PM EDT Called to inform of lab results. Hgb 10.5, plt 124, ANC 790. K 3.2 Advised on neutropenic precautions like staying away from sick contacts, frequent handwashing, checking temp BID making sure temp isnot 100.4 and above and if it is to call [facility]riett. Increase intake of K enriched food like oranges, potatoes, bananas, etc. documented in this encounter Plan of Treatment Upcoming Encounters Date Type Department Care Team (Latest Contact Info) Description 12/25/2023 9:[address] Scan at [place] [phone] Xavier Malhotra MD [facility] [place] [address] 12/29/2023 Hospital Encounter [place] [address] Xavier Malhotra MD [facility] [place] [address] Paroxysmal atrial fibrillation 12/29/2023 7:30 AM EDT - 12/29/2023 12:00 PM EDT Surgery [place] [address] Xavier Malhotra MD [facility] [place] [address] ELECTROPHYSIOLOGY PROCEDURE 01/14/2024 10:40 AM EDT Office Visit [place] [address] Carmen Castaneda PA [facility] [place] [address] Scheduled Procedures Name Priority Associated Diagnoses Date/Ti me TRANSESOPHAGEAL ECHO DURING CATH/EP PROCEDURE Paroxysmal atrial fibrillation 12/29/2023 7:30 AM EDT documented as of this encounter Visit Diagnoses Not on filedocumented in this encounter Care Teams Web Feeder Relationship Specialty Start Date End Date Evelyne Hunt APRN [address] [place] [address] PCP - General Internal Medicine 09/23/17 documented as of this encounter
--- OUTSIDE RECORDS SUMMARY | 2023-12-01 02:16 | XMS_ITS | Encounter Summary ---
Author Organization Formerly [facility] [place] [address] Care Team Providers Care Oil Rig Driller Name Role Phone MarileeEvelyne APRN Primary Care Provider [phone] Reason for Visit * Reason Comments Patient Education Medication Management Encounter Details Date Type Department Care Team (Late st Contact Info) Description 01/04/2020 Specialty [place] [phone] Lani Vargas Red Social History Tobacco Use [...] Progress Notes * Lani Coats RPH - 01/04/2020 1:32 PM EDT Specialty Pharmacy Consultation; Lani Coats RPH [...] the Clinical Assessment? Yes Summary and Recommendations: Potential side effects of Zejula such as fatigue, fever, bleeding, myalgia, N/V, MONTANO, rash, and cough reviewed with possible management strategies. The patient was feeling well today and happy to be taking oral therapy at home. Med list reviewed - no major interactions identified. The patient noted that she was taking blood pressure medication for what she believed was elevations during her infusions that may have been due to anxiety. She still takes these without headache, dizziness, tachycardia, or fatigue. She states that her blood pressure has been normal on recent readings and she will discuss reducing the antihypertensive regimen with her primary care provider. She also continues to take her bupropion and other herbal supplements including CBD oil and understands her dose of Zejula may change if she were to gain weight. The patient is aware of the importance [...] or new medications and OTC products. Resources areavailable to the patient from the cancer center such as geology instructor consultation and social work services. Administration, allergies, dosage, safe storage away from pets or children, handling and disposal were reviewed. The pharmacy's contact information, operating hours, and on-call services were given to the patient verbally and in writing. The medication will be mailed out for a $0 copay. Clinic follow-up needed: no Allergies and Drug intolerance: Allergies Allergen Reactions ??? Penicillins Anaphylaxis CIS - Anaphylaxis ??? Taxol [Paclitaxel] Palpitations and Other [...] calculate BMI. Medication reconciliation discrepancies (compared to [facility] med list): yes - removed duplicate diltiazem titration dose Medication Adherence Patient reported X missed doses [...] hr TK 1 T PO QAM ??? Zinc 50 mg Tablet Take by mouth. ??? ascorbic acid, vitamin C, (Vitamin C) 1,000 mg Tablet Take 1,000 mg by mouth daily. ??? pyridoxine, vitamin B6, (B-6) 100 mg Tablet Take 100 mg by mouth daily. ??? Alpha Lipoic Acid 600 mg Capsule Take 600 mg by mouth. ??? acetaminophen (Tylenol) 325 mg Tablet Take [...] capsule by mouth daily. 60 capsule 5 ??? dilTIAZem (CARDIZEM) 30 mg Tablet Take 1 tablet by mouth as needed (Palpitations. If you use more than 3 tablets in a day, please call our office.). (Patient not taking: Reported on 12/29/2019) 60 tablet 3 No current facility-administered medications for this visit. Most Recent Vitals: Ht Readings from Last 1 Encounters: 12/29/19 164.4 cm (5' 4.72) Wt Readings from Last 3 Encounters: 12/29/19 54.4 kg (120 lb) 12/13/19 54.4 kg (120 lb) 12/13/19 54.5 kg (120 lb 2.4 oz) Temp Readings from Last 3 Encounters: 12/13/19 36.6 ??C (97.8 ??F) (Temporal) 11/22/19 36.4 ??C (97.5 ??F) (Temporal) 11/01/19 36.4 ??C (97.6 ??F) (Temporal) BP Readings from Last 3 Encounters: 12/13/19 151/84 12/13/19 (!) 145/105 11/22/19 151/85 Pulse Readings from Last 3 Encounters: 12/13/19 (!) 101 11/22/19 88 11/01/19 93 Pertinent Lab values: Lab Results Component Value Date NA 135 12/28/2019 K 3.2 12/28/2019 CL 99 12/28/2019 CO2 29 12/28/2019 BUN 15 12/28/2019 CREATININE 0.68 12/28/2019 GLUCOSE 93 07/23/2019 CALCIUM 9.0 12/28/2019 Lab Results Component Value Date ALT 25 12/28/2019 AST 19 12/28/2019 ALKPHOS 75 12/28/2019 BILITOT 0.8 12/28/2019 ALBUMIN 3.8 12/28/2019 PROT 7.4 12/28/2019 Lab Results Component Value Date WBC 2.60 12/28/2019 HGB 10.5 12/28/2019 HCT 30.1 12/28/2019 MCV 93.8 09/20/2019 PLATELET 124 12/28/2019 No results found for: HA1C Immunization History Administered Date(s) Administered ??? Influenza Vaccine (Novel) [id number], Injectable 04/06/2009 Assessment and Recommendations: Title Type of Medication Management: chronic disease management Recipient: beneficiary Provider: plan sponsor pharmacist Method of Contact: by telephone Cognitive Ability: good Cognitive Impairment Status Verified this Year: no Drug Interactions Provided the patient with educational material regarding drug interactions: yes Patient Counseling Counseled the patient on the following: reviewed medication changes since last visit, medication safety precautions education provided, drug interaction education provided to patient, safe handling, storage, and disposal discussed, possible adverse effects and management discussed, lab monitoring and follow-up discussed, cost of medications and cost implications discussed, adherence and missed doses discussed, monitoring medication discussed, over the counter products discussed Drug Medication Management Summary Topics discussed: reviewed medication changes since last visit, medication safety precautions education provided, drug interaction education provided to patient, safe handling, storage, and disposal discussed, possible adverse effects and management discussed, lab monitoring and follow-up discussed, cost of medications and cost implications discussed, adherence and missed doses discussed, monitoring medication discussed, over the counter products discussed Number of adverse drug events identified: 0 Time spent: 16-30 min Treatment Outcomes 01/04/2020 1501 Disease progression: Stable Patient Overall Status: Stable [...] and mitigation strategies, and interruptions in therapy: yes Physical and Cognitive Assessment: Functional limitations identified: no Cognitive limitations identified: no Concern regarding orientation/memory: no Concern with reasoning/judgement: no Is patient a fall risk: no Other needed information: no Social Assessment: Does the patient have a primary career and technology education teacher? no Does the patient have an emergency contact on file: Yes Does patient need referral to social science analyst: No Does patient need referral to [...] Amount: $0 Day Supply: 30 Date Needed: 01/06/20 Copay assistance required: no Therapy Assessment: Current Medication Dosing/Route/Frequency: Zejula 200mg PO QD Appropriate therapy: Yes Patient's Problems/Needs: The patient has had hypertension in the past but feels this may have beenrelated to anxiety over her infusion therapy and has since improved. She will need to monitor this closely for signs of dizziness, headaches, or edema upon initiation and ongoing Expected outcome: Slow disease progression as assessed by labs and scans in clinic every 3 to 6 months or more as indicated Patient Goals: Hematology/Oncology related goals may include remission, palliative or hospice care, a bridge to future surgery, transplant, and radiation or infusion therapy. Goals ??? DH Home Medication Compliance and Understanding Maintain control of disease for as long as possible as assessed by tumor marker levels and scans inclinic every 3 to 6 months Care Plan Reviewed and Approved by both Pharmacist and Patient: Yes Interventions (if applicable): No Additional care/services needed: no Educational information or adherence tools provided: Yes Additional equipment/supplies required: no Monitoring requirements for prescribed medication: CBC, CMP, CT or MRI Patient Status and Counseling: Is the patient experiencing pain? no Relevant monitoring results reviewed for bone marrow suppression, opportunistic infection, tumor lysis syndrome, metabolic disturbance and end organ dysfunction yes - . Pharmacist follow-up needed: Yes Patient Satisfaction with care/services provided: Yes Informed patient of specialty pharmacy services: Yes -Patient will be provided with welcome packet: Yes Date to be provided: mailed today -Patient is aware a licensed pharmacist is available 24 hours a day, 7 days a week to discuss medication-related questions or concerns: Yes -Patient verbalizes understanding of the common side effect profile of their medication. The patient is able to call 911 or seek urgent care if signs/symptoms of allergy or harmful adverse reactions occur: Yes Patient understands any changes to current drug regimen were made at the appointment and that [facility] is providing recommendations (summary located at top of note) for provider review and follow up. Lani Coats RPH 01/04/20 3:01 PM documented in this encounter Plan of Treatment Upcoming Encounters Date Type Department Care Team (Latest Contact Info) Description 12/25/2023 9:[address] [place] [address] Xavier Malhotra MD [facility] [place] [address] 12/29/2023 Hospital Encounter [place] [address] Xavier Malhotra MD [facility] [place] [address] Paroxysmal atrial fibrillation 12/29/2023 7:30 AM EDT - 12/29/2023 12:00 PM EDT Surgery [place] [address] Xavier Malhotra MD [facility] [place] [address] ELECTROPHYSIOLOGY PROCEDURE 01/14/2024 10:40 AM EDT Office Visit Cardiology at [address] [address] Carmen Castaneda PA [facility] [place] [address] Scheduled Procedures Name Priority Associated Diagnoses Date/Ti me TRANSESOPHAGEAL ECHO DURING CATH/EP PROCEDURE Paroxysmal atrial fibrillation 12/29/2023 7:30 AM EDT documented as of this encounter Goals Goal Patient Goal Type Associated Problems Recent Progress Patient-Stated? Author DH Home Medication Compliance and Understanding Patient Facing Action Plan No Lani Vargas, [facility] Note: Maintain control of disease for as long as possible as assessed by tumor marker levels and scans in clinic every 3 to 6 months documented as of this encounter Visit Diagnoses Not on filedocumented in this encounter Care Teams Oil Rig Driller Relationship Specialty Start Date End Date Evelyne Hunt APRN [address] [place] [address] PCP - General Internal Medicine 09/23/17 documented as of this encounter
--- OUTSIDE RECORDS SUMMARY | 2023-12-01 02:16 | XMS_ITS | Encounter Summary ---
Author Organization Formerly [facility] [place] [address] Care Team Providers Care Sand Mixer Name Role Phone Marilee Evelyne Daugherty APRN Primary Care Provider [phone] Encounter Details Date Type Department Care Team (Late st Contact Info) Description 12/29/2019 External Results Gynecology [place] [address] Social History Tobacco Use Types [...] AM EDT [place]ment [place] [address] Xavier Malhotra MD [facility] [place] [address] 12/29/2023 Hospital Encounter Electrophys[place] [address] Xavier Malhotra MD [facility] [place] [address] Paroxysmal atrial fibrillation 12/29/2023 7:30 AM EDT - 12/29/2023 12:00 PM EDT Surgery [place]rophys[place] [address] Xavier Malhotra MD [facility] [place] [address] ELECTROPHYSIOLOGY PROCEDURE 01/14/2024 10:40 AM EDT Office Visit Cardiology at [address] [phone] Carmen Castaneda PA [facility] [place] [address] Scheduled Procedures Name Priority Associated Diagnoses Date/Ti me TRANSESOPHAGEAL ECHO DURING CATH/EP PROCEDURE Paroxysmal atrial fibrillation 12/29/2023 7:30 AM EDT documented as of this encounter Procedures Procedure Name Priority Date/Time Associated Diagnosis Comments EXTERNAL LAB CBC CMP THYROID RESULTS PANEL Routine 12/28/2019 documented in this encounter Results * CBC / CMP / Thyroid External Results (12/28/2019) Historical Provider EXTERNAL LAB TONJA SUAREZ documented in this encounter Visit Diagnoses Not on filedocumented in this encounter Care Teams Sand Mixer Relationship Specialty Start Date End Date Evelyne Hunt APRN [address] [place] [address] PCP - General Internal Medicine 09/23/17 documented as of this encounter
--- OUTSIDE RECORDS SUMMARY | 2023-12-01 02:16 | XMS_ITS | Encounter Summary ---
Author Organization [facility] [place] [address] Care Team Providers Care Treasury Consultant Name Role Phone Evelyne Hunt APRN Primary Care Provider [phone] Reason for Visit * Reason Onset Date Comments Results 12/20/2019 Encounter Details Date Type Department Care Team (Late st Contact Info) Description 12/20/2019 Telephone Hematology [place] [phone] Mary Mclain, RN Results Social History Tobacco [...] Telephone Encounter - Mary Mclain RN - 12/20/2019 12:59 PM EDT Relayed following satisfactory labs to pt Recent Results (from the past 72 hour(s)) CBC (with Diff) Result Value Ref Range WBC 5.03 (External Lab) Hemoglobin 11.2 (External Lab) Hematocrit 31.0 (ExtL) Platelets 135 (External Lab) Neutrophils % 66.4 (External Lab) Neutr Abs (ANC) 3,340 (External Lab) documented in this encounter Plan of Treatment Upcoming Encounters Date Type Department Care Team (Latest Contact Info) Description 12/25/2023 9:[address] Scan at [place] [address] Xavier Malhotra MD [facility] [place] [address] 12/29/2023 Hospital Encounter [place] [address] Xavier Malhotra MD [facility] [place] [address] Paroxysmal atrial fibrillation 12/29/2023 7:30 AM EDT - 12/29/2023 12:00 PM EDT Surgery Electrophysiology Lab at [address] Xavier Malhotra MD [facility] [place] [place] [address] ELECTROPHYSIOLOGY PROCEDURE 01/14/2024 10:40 AM EDT [place] [address] Carmen Castaneda PA [facility] [place] [address] Scheduled Procedures Name Priority Associated Diagnoses Date/Ti me TRANSESOPHAGEAL ECHO DURING CATH/EP PROCEDURE Paroxysmal atrial fibrillation 12/29/2023 7:30 AM EDT documented as of this encounter Visit Diagnoses Not on filedocumented in this encounter Care Teams Treasury Consultant Relationship Specialty Start Date End Date Evelyne Hunt APRN [address] [facility] [address] PCP - General Internal Medicine 09/23/17 documented as of this encounter
--- OUTSIDE RECORDS SUMMARY | 2023-12-01 02:16 | XMS_ITS | Encounter Summary ---
Author Organization [facility] [place] [address] Care Team Providers Care Wax Coating Machine Tender Name Role Phone Kiki Huntyce Dat STEVEN Primary Care Provider [phone] Encounter Details Date Type Department Care Team (Late st Contact Info) Description 02/01/2020 Telephone Cardiology at [address] [phone] Rosalee Toledo RN Social History Tobacco Use Types Packs/Day [...] Telephone Encounter - Rosalee Toledo RN - 02/01/2020 8:11 AM EDT If she had an ECHO at [facility] last week, she does not need another one at [facility]. However, it was an ED visit, and I doubt it was done.Please check. Book her with me after the CXR, but tell her my clinic is filled and she may have to wait. Call to scheduling for assist and routed to psychiatric secretary. Awaiting response and then plan to call Gabi regarding ECHO Rosalee Toledo RN 4A Cardiology documented in this encounter Plan of Treatment Upcoming Encounters Date Type Department Care Team (Latest Contact Info) Description 12/25/2023 9:[address] [place] [address] Xavier Malhotra MD [facility] [place] [address] 12/29/2023 Hospital Encounter Electrophysiology Lab at [place] [phone] Xavier Malhotra MD [facility] [place] [address] Paroxysmal atrial fibrillation 12/29/2023 7:30 AM EDT - 12/29/2023 12:00 PM EDT Surgery [place] [address] Xavier Malhotra MD [facility] [place] [address] ELECTROPHYSIOLOGY PROCEDURE 01/14/2024 10:40 AM EDT Office Visit Cardiology at [place] [phone] Carmen Castaneda PA [facility] [place] [address] Scheduled Procedures Name Priority Associated Diagnoses Date/Ti [...] on filedocumented in this encounter Care Teams Wax Coating Machine Tender Relationship Specialty Start Date End Date Evelyne Hunt APRN [address] [place] [address] PCP - General Internal Medicine 09/23/17 documented as of this encounter
--- OUTSIDE RECORDS SUMMARY | 2023-12-01 02:16 | XMS_ITS | Encounter Summary ---
Author Organization [facility] Address [facility] [place] [address] Care Team Providers Care Certified Ethical Hacker Name Role Phone Evelyne Hunt APRN Primary Care Provider [phone] Encounter Details Date Type Department Care Team (Late st Contact Info) Description 01/27/2020 Telephone Hematology [place] [phone] Claudine Soria MD [facility] DR HEMATOLOGY/[place] [address] Social History Tobacco Use Types Packs/Day Years [...] encounter Miscellaneous Notes * Telephone Encounter - Claudine Soria - 01/27/2020 12:31 PM EDT Reason for call: Tosin Whitlock APRN called for recommendations Gabi Luna is a 59 y.o. female with Ovarian ca on Carbo/pacli/avastin and recently started on Zejula who presented to OSH with palpitation. Work up showed some electrolyte abnormalities. Initially in SVT but improved by the time of call. Vitals as below: 144/93-91-98%RA-17-36.3 Recommendations: Requested to call Dr. Vallejo. documented in this encounter Plan of Treatment Upcoming Encounters Date Type Department Care Team (Latest Contact Info) Description 12/25/2023 9:[address] Scan at [place] [phone] Xavier Malhotra MD [facility] [address] [place] [address] 12/29/2023 Hospital Encounter Electrophysiology Lab at [address] Xavier Malhotra MD [facility] [address] [place] [address] Paroxysmal atrial fibrillation 12/29/2023 7:30 AM EDT - 12/29/2023 12:00 PM EDT Surgery Electrophysiology Lab at [address] Xavier Malhotra MD [facility] [address] [place] [address] ELECTROPHYSIOLOGY PROCEDURE 01/14/2024 10:40 AM EDT [place] [address] Carmen Castaneda PA [facility] [place] [address] Scheduled Procedures Name Priority Associated Diagnoses Date/Ti [...] filedocumented in this encounter Care Teams Certified Ethical Hacker Relationship Specialty Start Date End Date Evelyne Hunt APRN [address] [place] [address] PCP - General Internal Medicine 09/23/17 documented as of this encounter
--- OUTSIDE RECORDS SUMMARY | 2023-12-01 02:16 | XMS_ITS | Encounter Summary ---
Author Organization [facility] [place] [address] Care Team Providers Care Computer Game Programmer Name Role Phone Evelyne Hunt APRN Primary Care Provider [phone] Reason for Visit * Reason Comments Prior Authorization Zejula 100mg capsule s Encounter Details Date Type Department Care Team (Late st Contact Info) Description 01/04/2020 Specialty [place] [address] Love Helms, VICE PRESIDENT RESEARCH Social History Tobacco Use Types Packs/Day Years [...] of this encounter Progress Notes * Love Helms - 01/04/2020 9:32 AM EDT [facility], Medication Prior Authorization Request Patient: Gabi Luna Patient : 1960 Patient Address: [address] [address] (home) Medication Name: ZEJULA 100 MG CAPSULE Medication ID: [id number] Patient Location: [facility] 3K Patient Location Comment: Medication Strength Frequency Requested: Zejula 100mg capsules - Take two capsules by mouth every day. Qty/Day Supply: 60/30 New Start: New to Therapy Diagnosis & ICD-10 Code: Ovarian Cancer C56.9 Subscriber Insurance: [employer] (ADV) Subscriber Insurance Comment: Fax: Physician: PASQUALE MEDEROS Physician Comment : PA Status: NO PA REQUIRED Pharmacy: [facility] Insurance requirements/notes: Can fill w/ [facility] Copay: $0.00 Copay assistance: None Copay assistance comment: Fillable at [facility] Special[facility] Pharmacy: Yes Insurance mandated Pharmacy: [facility] documented in this encounter Plan of Treatment Upcoming Encounters Date Type Department Care Team (Latest Contact Info) Description 12/25/2023 9:[address] [place] [phone] Xavier Malhotra MD [facility] [place] [address] 12/29/2023 Hospital Encounter [place] [phone] Xavier Malhotra MD [facility] [place] [place] [address] Paroxysmal atrial fibrillation 12/29/2023 7:30 AM EDT - 12/29/2023 12:00 PM EDT Surgery [place] [phone] Xavier Malhotra MD [facility] [place] [address] ELECTROPHYSIOLOGY PROCEDURE 01/14/2024 10:40 AM EDT Office Visit Cardiology at [address] [address] Carmen Castaneda PA [facility] [place] [address] Scheduled Procedures Name Priority Associated Diagnoses Date/Ti me TRANSESOPHAGEAL ECHO DURING CATH/EP PROCEDURE Paroxysmal atrial fibrillation 12/29/2023 7:30 AM EDT documented as of this encounter Goals Goal Patient Goal Type Associated Problems Recent Progress Patient-Stated? Author [facility] Medication Compliance and Understanding Patient Facing Action Plan Lani Love, [facility] Note: Maintain control of disease for as long as possible as assessed by tumor marker levels and scans in clinic every 3 to 6 months documented as of this encounter Visit Diagnoses Not on filedocumented in this encounter Care Teams Computer Game Programmer Relationship Specialty Start Date End Date Evelyne Hunt APRN [address] [place] [address] PCP - General Internal Medicine 09/23/17 documented as of this encounter
--- OUTSIDE RECORDS SUMMARY | 2023-12-01 02:16 | XMS_ITS | Encounter Summary ---
Author Organization [facility] Address [facility] [place] [address] Care Team Providers Care Six Pack Loader Operator Name Role Phone Evelyne Hunt APRN Primary Care Provider [phone] Encounter Details Date Type Department Care Team (Late st Contact Info) Description 12/13/2019 8:00 AM EDT Office Visit [place] [phone] Pasquale Mederos MD [facility] [place] [address] Ovarian cancer, unspecified laterality Social History Tobacco [...] Sign Reading Time Taken Comments Blood Pressure 145/105 12/13/2019 8:11 AM EDT Pulse 101 12/13/2019 8:11 AM EDT Temperature 36.6 ??C (97.8 ??F) 12/13/2019 8:11 AM ED T Respiratory Rate 16 12/13/2019 8:11 AM EDT Oxygen Saturation 100% 12/13/2019 8:11 AM EDT Inhaled Oxygen Concentration - - Weight 54.5 kg (120 lb 2.4 oz) 12/13/2019 8:11 A M EDT Height 164.4 cm (5' 4.72) 12/13/2019 8:11 AM ED T Body Mass Index 20.16 12/13/2019 8:11 AM EDT documented in this encounter Progress Notes * Pasquale Mederos MD - 12/13/2019 8:00 AM EDT Division [place] [address] Pre-chemotherapy Visit: Patient Active Problem List Diagnosis Code ??? Hypothyroidism E03.9 ??? SVT (supraventricular tachycardia) I47.1 ??? Bicuspid aortic valve Q23.1 ??? Chest pain R07.9 ??? Nonrheumatic aortic valve stenosis--moderate to severe per 2019 echo (scanned docs) I35.0 ??? HTN (hypertension) I10 ??? 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 BRCA negative Z13.71 Reason for visit: Gabi Luna is seen today in anticipation of chemotherapy clearance for primary ovarian cancer. Oncology history: Stage IIIb mixed endometrioid and [...] BRCA2 (sequencing only). ?? Subjective: Gabi Luna comes to the office today before cycle # 6 of Taxol/Carbo/Avastin chemotherapy. She did well with her last cycle and had no issues. Today, she is feeling well overall and denies nausea, vomiting, diarrhea, fever, chills, dysuria, shortness of breath, rashes, cough/cold symptoms, mouth sores or sore throat. No numbness/tingling inher hands/feet. No neuropathy in her hands, it is in both balls of the feet but is not interfering with walking. Review of Systems Constitutional: Positive for fatigue. Negative for appetite change and fever. Respiratory: Negative for cough and shortness of breath. Cardiovascular: Negative. Negative for chest pain. Gastrointestinal: Negative for abdominal pain, blood in stool, constipation, diarrhea, nausea and vomiting. Genitourinary: Negative. Negative for dysuria. Musculoskeletal: Negative. Skin: Negative. Neurological: Negative for numbness. Psychiatric/Behavioral: Negative. The patient is not nervous/anxious. All other systems reviewed and are negative. Objective: Vitals: 12/13/19 0811 BP: (!) 145/105 Patient Position: Sitting Pulse: (!) 101 Resp: 16 Temp: 36.6 ??C (97.8 ??F) TempSrc: Temporal SpO2: 100% Weight: 54.5 kg (120 lb 2.4 oz) Height: 164.4 cm (5' 4.72) Body mass index is 20.16 kg/m??. Body surface area is 1.58 meters squared. Physical Exam Constitutional: General: She is not in acute distress. Appearance: She is well-developed. Comments: Here today with her Sandoval. Eyes: General: No scleral icterus. Right eye: No discharge. Left eye: No discharge. Neck: Musculoskeletal: Neck supple. Cardiovascular: Rate and Rhythm: Normal rate and regular rhythm. Heart sounds: Murmur (harsh KANDY at RUSB) present. No friction rub. No gallop. Pulmonary: Effort: Pulmonary effort is normal. No respiratory distress. Breath sounds: Normal breath sounds. No wheezing. Abdominal: General: There is no distension. Palpations: Abdomen is soft. There is no mass. Tenderness: There is no abdominal tenderness. There is no rebound. Comments: Vertical midline incision is well-healed. Musculoskeletal: General: No swelling or tenderness. Lymphadenopathy: Cervical: No cervical adenopathy. Upper Body: Right upper body: No supraclavicular adenopathy. Left upper body: No supraclavicular adenopathy. Skin: General: Skin is warm and dry. Coloration: Skin is not pale. Findings: No erythema or rash. Neurological: General: No focal deficit present. Mental Status: She is alert. Coordination: Coordination normal. Gait: Gait normal. Psychiatric: Mood and Affect: Mood normal. Behavior: Behavior normal. GOG performance status= 0 CTCAE Toxicity grading for the prior cycle: Neutrophils: 2- < 1500 - 1000/mm3 ; < 1.5 - 1.0 x 10(9)/L Hemoglobin: 0- Normal / not present Platelets: 1- < LLN - 75,000/mm3 ; < LLN - 75.0 x 10 (9)/L Creatinine: 0- Normal Fatigue: 1- Mild fatigue over baseline Hand-foot: 0- Normal / not present Nausea: 0- Normal / not present Vomitin- Normal / not present Neuropathy (sensory): 1- Asymptomatic; loss of deep tendon reflexes or paresthesia (including tingling) but not interfering with function Labs: Acceptable for chemotherapy CA 125 Date Value Ref Range Status 10/07/2019 10 Final 09/14/2019 12 Final Assessment and Plan: Gabi Luna is a 59 y.o. year old stage IIIB mixed serous and endometrioid ovarian cancer whois here today for cycle 6 of Taxol/carbo/Avastin. As this is her last cycle, we discussed next steps including: port maintenance, post treatment baseline CT scan and PARP maintenance. All of her and Sandoval's questions were answered. No dose-limiting toxicities, will proceed with chemotherapy today as scheduled. RTC three weeks. PASQUALE MEDEROS MD documented in this encounter Plan of Treatment Upcoming Encounters Date Type Department Care Team (Latest Contact Info) Description 12/25/2023 9:[address] [place] [address] Xavier Malhotra MD [facility] [place] [address] 12/29/2023 Hospital Encounter Electrophysiology Lab at [place] [phone] Xavier Malhotra MD [facility] [place] [address] Paroxysmal atrial fibrillation 12/29/2023 7:30 AM EDT - 12/29/2023 12:00 PM EDT Surgery [place] [address] Xavier Malhotra MD [facility] [place] [address] ELECTROPHYSIOLOGY PROCEDURE 01/14/2024 10:40 AM EDT Office Visit Cardiology at [place] [phone] Carmen Castaneda PA [facility] [place] [address] Scheduled Procedures Name Priority Associated Diagnoses Date/Ti me TRANSESOPHAGEAL ECHO DURING CATH/EP PROCEDURE Paroxysmal atrial fibrillation 12/29/2023 7:30 AM EDT documented as of this encounter Visit Diagnoses Diagnosis Ovarian cancer, unspecified laterality Paroxysmal atrial fibrillation Atrial fibrillation Paroxysmal atrial fibrillation Atrial fibrillation documented in this encounter Care Teams Six Pack Loader Operator Relationship Specialty Start Date End Date Evelyne Hunt APRN [address] [place] [address] PCP - General Internal Medicine 09/23/17 documented as of this encounter
--- OUTSIDE RECORDS SUMMARY | 2023-12-01 02:16 | XMS_ITS | Encounter Summary ---
Author Organization [facility] [place] [address] Care Team Providers Care Director Of Institutional Research Name Role Phone Evelyne Hunt Dat STEVEN Primary Care Provider [phone] Encounter Details Date Type Department Care Team (Late st Contact Info) Description 12/31/2019 External Results Gynecology [place] [address] Natalie Vallejo MD [facility] [place] [address] Social History Tobacco Use Types [...] 9:[address] [place] [address] Xavier Malhotra MD [facility] [place] [address] 12/29/2023 Hospital Encounter Elect[place] [address] Xavier Malhotra MD [facility] [place] [address] Paroxysmal atrial fibrillation 12/29/2023 7:30 AM EDT - 12/29/2023 12:00 PM EDT Surgery Electrophys[place] [phone] Xavier Malhotra MD [facility] [place] [address] ELECTROPHYSIOLOGY PROCEDURE 01/14/2024 10:40 AM EDT Office Visit Cardiology at [address] [phone] Carmen Castaneda PA [facility] [place] [address] Scheduled Procedures Name Priority Associated Diagnoses Date/Ti me TRANSESOPHAGEAL ECHO DURING CATH/EP PROCEDURE Paroxysmal atrial fibrillation 12/29/2023 7:30 AM EDT documented as of this encounter Procedures Procedure Name Priority Date/Time Associated Diagnosis Comments CANCER ANTIGEN 125 Routine 12/29/2019 CANCER ANTIGEN 125 Routine 12/28/2019 documented in this encounter Results * Cancer Antigen 125 (12/29/2019) Blood specimen (specimen) Historical Provider CHEMISTRY ORDERAB LES * Cancer Antigen 125 (12/28/2019) CA 125 9 Blood specimen (specimen) 12/28/2019 Historical Provider CHEMISTRY ORDERAB LES documented in this encounter Visit Diagnoses Not on filedocumented in this encounter Care Teams Director Of Institutional Research Relationship Specialty Start Date End Date Evelyne Hunt APRN [address] [place] [address] PCP - General Internal Medicine 09/23/17 documented as of this encounter
--- OUTSIDE RECORDS SUMMARY | 2023-12-01 02:16 | XMS_ITS | Encounter Summary ---
Author Organization [facility] [place] [address] Care Team Providers Care Division Operations Specialist Name Role Phone Evelyne Hunt Dat STEVEN Primary Care Provider [phone] Encounter Details Date Type Department Care Team (Late st Contact Info) Description 11/18/2019 External Results [place] [address] Natalie Vallejo MD [facility] [place] [address] Social History Tobacco Use Types [...] 9:[address] [place] [address] Xavier Malhotra MD [facility] [place] [address] 12/29/2023 Hospital Encounter [place] [address] Xavier Malhotra MD [facility] [place] [address] Paroxysmal atrial fibrillation 12/29/2023 7:30 AM EDT - 12/29/2023 12:00 PM EDT Surgery [place] [phone] Xavier Malhotra MD [facility] [place] [address] ELECTROPHYSIOLOGY PROCEDURE 01/14/2024 10:40 AM EDT Office Visit Cardiology at [address] [phone] Carmen Castaneda PA [facility] [place] [address] Scheduled Procedures Name Priority Associated Diagnoses Date/Ti me TRANSESOPHAGEAL ECHO DURING CATH/EP PROCEDURE Paroxysmal atrial fibrillation 12/29/2023 7:30 AM EDT documented as of this encounter Procedures Procedure Name Priority Date/Time Associated Diagnosis Comments EXTERNAL LAB CBC CMP THYROID RESULTS PANEL Routine 11/18/2019 EXTERNAL LAB CBC CMP THYROID RESULTS PANEL Routine 11/18/2019 documented in this encounter Results * CBC / CMP / Thyroid External Results (11/18/2019) Natalie Vallejo MD EXTERNAL LAB ORDERAB LES * CBC / CMP / Thyroid External Results (11/18/2019) White Blood Cell 3.72 Red Blood Cell 3.34 Hemoglobin 11.9 Hematocrit 34.0 Platelet 224 Sodium 135 Potassium 3.4 Chloride 98 Carbon Dioxide 28 Blood Urea Nitrogen 10 Creatinine 0.61 Glucose 108 Calcium 9.4 Protein, Total 7.5 Albumin 3.9 Bilirubin, Total 0.8 Alkaline Phosphatase 75 Aspartate Aminotransferase 18 Alanine Aminotransferase 28 ANC 1.92 11/18/2019 Natalie Vallejo MD EXTERNAL LAB ORDERAB LES documented in this encounter Visit Diagnoses Not on filedocumented in this encounter Care Teams Division Operations Specialist Relationship Specialty Start Date End Date Evelyne Hunt APRN [address] [place] [address] PCP - General Internal Medicine 09/23/17 documented as of this encounter
--- OUTSIDE RECORDS SUMMARY | 2023-12-01 02:17 | XMS_ITS | Encounter Summary ---
Author Organization [facility] [place] [address] Care Team Providers Care Medical Administrator Name Role Phone Evelyne Hunt Dat STEVEN Primary Care Provider [phone] Encounter Details Date Type Department Care Team (Late st Contact Info) Description 10/05/2019 External Results [place] [address] Natalie Vallejo MD [facility] [place] [address] Social History Tobacco Use Types [...] 9:[address] [place] [address] Xavier Malhotra MD [facility] [place] [address] 12/29/2023 Hospital Encounter [place] [address] Xavier Malhotra MD [facility] [place] [address] Paroxysmal atrial fibrillation 12/29/2023 7:30 AM EDT - 12/29/2023 12:00 PM EDT Surgery [place] [phone] Xavier Malhotra MD [facility] [place] [place] [address] ELECTROPHYSIOLOGY PROCEDURE 01/14/2024 10:40 AM EDT Office Visit Cardiology at [place] [phone] Carmen Castaneda PA [facility] [place] [address] Scheduled Procedures Name Priority Associated Diagnoses Date/Ti me TRANSESOPHAGEAL ECHO DURING CATH/EP PROCEDURE Paroxysmal atrial fibrillation 12/29/2023 7:30 AM EDT documented as of this encounter Procedures Procedure Name Priority Date/Time Associated Diagnosis Comments EXTERNAL LAB CBC CMP THYROID RESULTS PANEL Routine 10/04/2019 CBC (WITH DIFF) Routine 10/04/2019 documented in this encounter Results * CBC (with Diff) (10/04/2019) Blood specimen (specimen) Historical Provider HEMATOLOGY ORDERA BLES * CBC / CMP / Thyroid External Results (10/04/2019) White Blood Cell 4.03 Red Blood Cell 4.09 Hemoglobin 13.9 Hematocrit 39.1 Platelet 231 ANC 2.01 10/04/2019 Natalie Vallejo MD EXTERNAL LAB ORDERAB LES documented in this encounter Visit Diagnoses Not on filedocumented in this encounter Care Teams Medical Administrator Relationship Specialty Start Date End Date Evelyne Hunt, [employer] [address] [place] [address] PCP - General Internal Medicine 09/23/17 documented as of this encounter
--- OUTSIDE RECORDS SUMMARY | 2023-12-01 02:17 | XMS_ITS | Encounter Summary ---
Author Organization [facility] [place] [address] Care Team Providers Care Skin Peeling Machine Operator Name Role Phone Evelyne Hunt TENISHA Primary Care Provider [phone] Reason for Visit * Reason Onset Date Comments Medication Refill Medication Refill 09/10/2019 Encounter Details Date Type Department Care Team (Late st Contact Info) Description 09/10/2019 Refill Gynecology [place] [phone] Sarah De La Torre APRN [facility] [place] [address] Social History Tobacco Use Types Packs/Day Years [...] 9:[address] [place] [phone] Xavier Malhotra MD [facility] [place] [address] 12/29/2023 Hospital Encounter Electrophys[place] [address] Xavier Malhotra MD [facility] [place] [address] Paroxysmal atrial fibrillation 12/29/2023 7:30 AM EDT - 12/29/2023 12:00 PM EDT Surgery [place] [phone] Xavier Malhotra MD [facility] [place] [address] ELECTROPHYSIOLOGY PROCEDURE 01/14/2024 10:40 AM EDT Office Visit Cardiology at [address] [phone] Carmen Castaneda PA [facility] [place] [address] Scheduled Procedures Name Priority Associated Diagnoses Date/Ti me TRANSESOPHAGEAL ECHO DURING CATH/EP PROCEDURE Paroxysmal atrial fibrillation 12/29/2023 7:30 AM EDT documented as of this encounter Visit Diagnoses Not on filedocumented in this encounter Care Teams Skin Peeling Machine Operator Relationship Specialty Start Date End Date Evelyne Hunt APRN [address] [place] [address] PCP - General Internal Medicine 09/23/17 documented as of this encounter
--- OUTSIDE RECORDS SUMMARY | 2023-12-01 02:17 | XMS_ITS | Encounter Summary ---
Author Organization [facility] [place] [address] Care Team Providers Care Assembler Musical Equipment Name Role Phone Evelyne Hunt APRN Primary Care Provider [phone] Encounter Details Date Type Department Care Team (Latest Contact Info) Description 09/20/2019 8:09 AM EDT Hospital Encounter Hematology [place] [phone] Ovarian cancer, lateral, stage IIIb high-grade serous/endometrioid [...] Sig Dispensed Refills Start Date End Date prochlorperazine (Compazine) 10 mg Tablet TAKE 1 TABLET BY MOUTH EVERY 6 HOURS NEEDED FOR NAUSEA 30 tablet 3 09/10/2019 12/29/2019 buPROPion XL (Wellbutrin XL) 150 mg Tablet Extended Release 24 hr Take 300 mg by mouth every morning. 11/01/2019 Zinc 50 mg Tablet Take 1 tablet by mouth daily. 02/01/2020 ascorbic acid, vitamin C, (Vitamin C) 1,000 mg Tablet Take 1,000 mg by mouth daily. 02/01/2020 HYDROcodone-acetaminoph en ([place]) 5-325 mg Tablet Take 1-2 tablets by mouth as needed. 09/02/2019 11/01/2019 pyridoxine, vitamin B6, (B-6) 100 mg Tablet [...] as of this encounter Progress Notes * Valery Ho, RN - 09/20/2019 8:35 AM EDT Patient Name: Gabi Luna Patient Age: 58 y.o. Birthdate: 1960 Admit date: 09/20/2019 Attending Physician: Cherry att. providers found Access visit. See MAR and/or flowsheet. documented in this encounter Plan of Treatment Upcoming Encounters Date Type Department Care Team (Latest Contact Info) Description 12/25/2023 9:[address] Scan at [place] [phone] Xavier Malhotra MD [facility] [place] [address] 12/29/2023 Hospital Encounter Electrophysiology Lab at [place] [phone] Xavier Malhotra MD [facility] [place] [address] Paroxysmal atrial fibrillation 12/29/2023 7:30 AM EDT - 12/29/2023 12:00 PM EDT Surgery [place] [phone] Xavier Malhotra MD [facility] [place] [address] ELECTROPHYSIOLOGY PROCEDURE 01/14/2024 10:40 AM EDT Office Visit Cardiology at [address] [phone] Carmen Castaneda PA [facility] [place] [address] Scheduled Procedures Name Priority Associated Diagnoses Date/Ti me TRANSESOPHAGEAL ECHO DURING CATH/EP PROCEDURE Paroxysmal atrial fibrillation 12/29/2023 7:30 AM EDT documented as of this encounter Procedures Procedure Name Priority Date/Time Associated Diagnosis Comments HEMOGRAM STAT 09/20/2019 8:30 AM EDT Ovarian cancer, lateral, stage IIIb high-grade serous/endometrioid , 07/20/2019 s/p FREDI/BSO/oment/PPALN D/RSReanstomosis DIFFERENTIAL, AUTOMATED STAT 09/20/2019 8:30 AM EDT Ovarian cancer, lateral, stage IIIb high-grade serous/endometrioid , 07/20/2019 s/p FREDI/BSO/oment/PPALN D/RSReanstomosis HC CBC,PLT & AUTO DIFF STAT 09/20/2019 8:30 AM EDT Ovarian cancer, lateral, stage IIIb high-grade serous/endometrioid , 07/20/2019 s/p FREDI/BSO/oment/PPALN D/RSReanstomosis documented in this encounter Results * (ABNORMAL) Differential, Automated (09/20/2019 8:30 AM EDT) Neutrophil % 77.6 % [facility] Neutrophil Absolute 7.98(H) 1.70 - 6.10 x10(3)/mc L [facility] Lymph % 12.6 % [facility] Lymphocytes Abs 1.3 0.9 - 3.2 x10(3)/mc L [facility] Monocyte % 7.6 % [facility] Monocyte Abs 0.8 0.3 - 0.9 x10(3)/mc L [facility] Eos % 1.1 % [facility] Eosinophils Abs 0.1 0.0 - 0.4 x10(3)/mc L [facility] Basophil % 0.7 % [facility] Baso Absolute 0.1 0.0 - 0.1 x10(3)/mc L [facility] Immature Gran % 0.40 % [facility] Comment: Immature granulocytes(IG's)percentage and absolute count will include metamyelocytes, myelocytes, and promyelocytes. Blood smears from CBCs yielding IG's will be scanned manually for concordance. If this scan disagrees with the automated IG or if promyelocytes are noted, a manual differential will be performed. Immature Gran Absolute 0.04 0.00 - 0.04 x10(3)/mc L [facility] Blood specimen (specimen) 09/20/2019 8:30 AM EDT 09/20/2019 9:13 AM EDT Narrative Resulting Agency Comment Spec In Lab Natalie Vallejo MD HEMATOLOGY ORDERABLE S [facility] [place] [address] * (ABNORMAL) Hemogram (09/20/2019 8:30 AM EDT) White Blood Cell 10.3(H) 4.0 - 9.5 x10(3)/ L [facility] Red Blood Cell 4.37 4.00 - 5.21 x10(6)/mc L [facility] Hemoglobin 14.3 11.7 - 15.5 gm/dL [facility] Hematocrit 41.0 35.7 - 45.8 % [facility] Mean Cell Volume 93.8 82.6 - 94.4 fL [facility] Mean Cell Hemoglobin 32.7(H) 27.1 - 32.0 pg [facility] Mean Cell Hemoglobin Concentration 34.9 31.7 - 35.0 gm/dL [facility] Platelet 268 145 - 357 x10(3)/mc L [facility] RDW Standard Deviation 44.3 37.0 - 46.0 fL [facility] RDW coefficient of variation 12.9 11.5 - 14.1 % [facility] Mean Platelet Volume 9.0 7.6 - 12.9 fL [facility] NRBC% auto 0.0 % [facility] NRBC Absolute 0.000 0.000 - 0.000 x10(3)/mc L [facility] Blood specimen (specimen) 09/20/2019 8:30 AM EDT 09/20/2019 9:13 AM EDT Narrative Resulting Agency Comment Spec In Lab Natalie Vallejo MD HEMATOLOGY ORDERABLE S [facility] [place] [address] documented in this encounter Visit Diagnoses Diagnosis Ovarian cancer, lateral, stage IIIb high-grade serous/endometrioid, 07/20/2019 s/p FREDI/BSO/oment/PPALND/RSReanstomosis- Primary Paroxysmal atrial fibrillation Atrial fibrillation Paroxysmal atrial fibrillation Atrial fibrillation documented in this encounter Administered Medications Inactive Administered Medications - up to 3 most recent administrations Medication Order MAR Action Action Date Dose Rate Site sodium chloride 0.9 % (flush) flush 20 mL 20 mL, Intravenous, EVERY 1 MIN PRN, Starting on Fri09/20/19 at 0811, Until Fri09/21/19 at 0442, Director Physical Therapy, Routine Given 09/20/2019 4:53 PM EDT 20 mLs Given 09/20/2019 8:35 AM EDT 20 mLs documented in this encounter Care Teams Assembler Musical Equipment Relationship Specialty Start Date End Date Evelyne Hunt APRN [address] [place] [address] PCP - General Internal Medicine 09/23/17 documented as of this encounter
--- OUTSIDE RECORDS SUMMARY | 2023-12-01 02:17 | XMS_ITS | Encounter Summary ---
Author Organization [facility] [place] [place] [address] Care Team Providers Care Housecleaner Floor Name Role Phone MarileeEvelyne APRN Primary Care Provider [phone] Encounter Details Date Type Department Care Team (Latest Contact Info) Description 09/14/2019 8:40 AM EDT TH Visit (TeleHealth) Cardiology at [address] [address] Franklyn Toure MD [facility] [address] SVT (supraventricular tachycardia); Bicuspid aortic valve; Chest pain, unspecified type; Nonrheumatic aortic valve stenosis--moderate to severe per 2020 echo (scanned docs); Hypertension, unspecified type Social History Tobacco Use [...] Progress Notes * Franklyn Toure MD - 09/14/2019 8:40 AM EDT Images from the original note were not included. changes [facility] [place] [address] Gabi Luna [id number] 09/14/2019 REFERRING PROVIDER: Evelyne Hunt PROBLEM LIST Patient Active Problem List Diagnosis ??? Ovarian cancer, lateral, stage IIIb high-grade serous/endometrioid, 07/20/2019 s/p FREDI/BSO/oment/PPALND/RSReanstomosis ??? HTN (hypertension) ??? Nonrheumatic aortic valve stenosis--moderate to severe per 2020 echo (scanned docs) ??? Chest pain ??? SVT (supraventricular tachycardia) ??? Bicuspid aortic valve ??? Hypothyroidism HISTORY OF PRESENT ILLNESS: Ms. Luna is being seen for follow-up cardiovascular examination, particularly in regard to aortic stenosis. Since her last visit with me in April 2019, she was diagnosed with ovarian cancer. In July 2019, she underwent a total abdominal hysterectomy, bilateral salpingo-oophorectomy, bilateral pelvic and paraaortic lymph adenectomy, omentectomy, rectosigmoid resection and reanastomosis. She is now undergoing chemotherapy. There is been no significant change in her cardiac symptoms. She does note anterior chest discomfort at night when she moves around in bed. However, she does not experience chest discomfort with exertion. Shortness of breath may occur after climbing several flights of stairs. She denies orthopnea, nocturnal dyspnea, ankle swelling, lightheadedness, or syncope. She also has not had any recent palpitations. ?? PAST MEDICAL HISTORY: Past Medical History: Diagnosis Date ??? Allergic rhinitis ??? Anxiety ??? Aortic insufficiency due to bicuspid aortic valve ??? Aortic stenosis, moderate ??? Bicuspid aortic valve ??? H/O: 09/10/2013 x2 ??? Heart valve [...] ??? Subclinical hypothyroidism ??? SVT (supraventricular tachycardia) REVIEW OF SYSTEMS No flowsheet data found. General: [See HPI] Pulmonary: [No cough, or hemoptysis.] GI: [See HPI.] : [See HPI.] Musculoskeletal: [No limb pain, joint pain, or joint swelling.] Neuro: [No focal weakness, ataxia, confusion, paresthesias or headache.] Cardiac: See HPI FAMILY HISTORY: Family History Problem Relation Age of Onset ??? Heart Disease Mother ??? Cancer Mother ??? Heart Disease Brother 3 brothers, all with history of [place]; one with valvular disease ??? Heart Disease Maternal Grandfather SOCIAL HISTORY: Social History Tobacco Use ??? Smoking status: Former Smoker Last attempt to quit: 07/12/1977 Years since quittin.2 ??? Smokeless tobacco: Never Used Substance Use Topics ??? Alcohol use: Yes Comment: 4 drinks per week MEDICATIONS: Current Outpatient Medications Medication Sig Dispense Refill ??? prochlorperazine (Compazine) 10 mg Tablet TAKE 1 TABLET BY MOUTH EVERY 6 HOURS NEEDED FOR NAUSEA 30 tablet 3 ??? buPROPion XL (Wellbutrin XL) 150 mg Tablet Extended Release 24 hr Take 150 mg by mouth every morning. ??? Zinc 50 mg Tablet Take by mouth. ??? ascorbic acid, vitamin C, (Vitamin C) 1,000 mg Tablet Take 1,000 mg by mouth daily. ??? HYDROcodone-acetaminophen ([place]) 5-325 mg Tablet Take 1-2 tablets by mouth as needed. ??? pyridoxine, vitamin B6, (B-6) 100 mg Tablet Take 100 mg by mouth daily. ??? glutamine 15 gram Powder in Packet Take 15 g by mouth. Will resume as needed ??? Alpha Lipoic Acid 600 mg Capsule Take 600 mg by mouth. ??? ondansetron (Zofran) 8 mg Tablet Take 1 tablet by mouth every 8 hours as needed for Nausea. 30 tablet 3 ??? LORazepam (Ativan) 0.5 mg Tablet Take 1 tablet by mouth every 6 hours as needed for Anxiety. 30tablet 0 ??? acetaminophen (Tylenol) 325 mg Tablet Take 2 tablets by mouth every 6 hours as needed for Pain.50 tablet 0 ??? ibuprofen (Advil;Motrin) 600 mg Tablet Take 1 tablet by mouth every 6 hours as needed for Pain.50 tablet 0 ??? polyethylene glycol (Miralax) 17 gram Powder in Packet Take 17 g by mouth daily. 14 each 0 ??? ergocalciferol, vitamin D2, (VITAMIN D [...] please call our office.). 60 tablet 3 No current facility-administered medications for this visit. ALLERGIES: Penicillins and Taxol [paclitaxel] PHYSICAL EXAMINATION: Vital Signs: There were no vitals taken for this visit. Exam Details: This is a telehealth visit and no examination was performed DATA: None from today's visit. ASSESSMENT: She is a following problems relevant to this visit: 1). Aortic stenosis. Moderate to severe (SUDHAKAR 1.01 cm??). It is not clear whether the valve is is bicuspid or tricuspid. It is difficult to determine whether there any associated symptoms, though she may experience shortness of breath when climbing1-2 flights of stairs, a symptom that she does not recall from 2 years ago. Her diagnosis of metastatic ovarian cancer must be taken into account if the severity of her aortic stenosis or symptoms progress to the point where AVR would be considered. She will have an echocardiogram at her next visit.. 2). History of supraventricular tachycardia. No recent symptoms. She will continue diltiazem. 3).Hypertension. Her blood pressure was not assessed today.. ?? PLAN: RTC in 3 months. Echocardiogram at that time. documented in this encounter Plan of Treatment Upcoming Encounters Date Type Department Care Team (Latest Contact Info) Description 12/25/2023 9:[address] [place] [phone] Xavier Malhotra MD [facility] [place] [address] 12/29/2023 Hospital Encounter [place] [phone] Xavier Malhotra MD [facility] [place] [address] Paroxysmal atrial fibrillation 12/29/2023 7:30 AM EDT - 12/29/2023 12:00 PM EDT Surgery [place] [phone] Xavier Malhotra MD [facility] [place] [address] ELECTROPHYSIOLOGY PROCEDURE 01/14/2024 10:40 AM EDT Office Visit Cardiology at [address] [phone] Carmen Castaneda PA [facility] [place] [address] Scheduled Procedures Name Priority Associated Diagnoses Date/Ti me TRANSESOPHAGEAL ECHO DURING CATH/EP PROCEDURE Paroxysmal atrial fibrillation 12/29/2023 7:30 AM EDT documented as of this encounter Visit Diagnoses Diagnosis SVT (supraventricular tachycardia) Other specified cardiac dysrhythmias Bicuspid aortic valve Congenital insufficiency of aortic valve Chest pain, unspecified type Nonrheumatic aortic valve stenosis--moderate to severe per 2020 echo (scanned docs) Aortic valve disorders Hypertension, unspecified type Paroxysmal atrial fibrillation Atrial fibrillation Paroxysmal atrial fibrillation Atrial fibrillation documented in this encounter Care Teams Housecleaner Floor Relationship Specialty Start Date End Date Evelyne Hunt APRN [address] [place] [address] PCP - General Internal Medicine 09/23/17 documented as of this encounter
--- OUTSIDE RECORDS SUMMARY | 2023-12-01 02:17 | XMS_ITS | Encounter Summary ---
Author Organization [facility] [place] [address] Care Team Providers Care Head Grease Maker Name Role Phone Kiki Huntyce Dat STEVEN Primary Care Provider [phone] Reason for Visit * Reason Onset Date Comments Chest Pain 09/06/2019 Encounter Details Date Type Department Care Team (Late st Contact Info) Description 09/06/2019 Telephone Hematology [place] [phone] Mary Mclain RN Chest Pain Social History Tobacco Use Types Packs/Day Years [...] Telephone Encounter - Mary Mclain RN - 09/06/2019 9:05 AM EDT Ivana states over the weekend she had some pain around her heart. States she has aortic stenosis and SVT. States she often has these pains. Pt advised to call her PCP or systems support engineer. Advised to go to her nearest ER if she experiences this pain again. Pt agrees with plan. documented in this encounter Plan of Treatment Upcoming Encounters Date Type Department Care Team (Latest Contact Info) Description 12/25/2023 9:[address] [place] [address] [facility] [place] [address] 12/29/2023 Hospital Encounter Electrophys[place] [address] [facility] [place] [address] Paroxysmal atrial fibrillation 12/29/2023 7:30 AM EDT - 12/29/2023 12:00 PM EDT Surgery Electrophys[place] [address] [facility] [place] [address] ELECTROPHYSIOLOGY PROCEDURE 01/14/2024 10:40 AM EDT Office Visit Cardiology at [address] [address] [facility] [place] [address] Scheduled Procedures Name Priority Associated Diagnoses Date/Ti me TRANSESOPHAGEAL ECHO DURING CATH/EP PROCEDURE Paroxysmal atrial fibrillation 12/29/2023 7:30 AM EDT documented as of this encounter Visit Diagnoses Not on filedocumented in this encounter Care Teams Head Grease Maker Relationship Specialty Start Date End Date Evelyne Hunt APRN [address] [place] [id number] PCP - General Internal Medicine 09/23/17 documented as of this encounter
--- OUTSIDE RECORDS SUMMARY | 2023-12-01 02:17 | XMS_ITS | Encounter Summary ---
[place] [address] Care Team Providers Care Meat Process Worker Name Role Phone MarileeEvelyne APRN Primary Care Provider [phone] Reason for Visit * Reason Onset Date Comments Results 10/08/2019 Encounter Details Date Type Department Care Team (Late st Contact Info) Description 10/08/2019 Telephone Gyne[place] [phone] Jaqueline Doran, RN Results Social History Tobacco [...] Telephone Encounter - Jaqueline Doran RN - 10/08/2019 2:13 PM EDT Called to inform lab results are all fine. Recent Results (from the past 72 hour(s)) CBC / CMP / Thyroid External Results Result Value Ref Range WBC 4.59 RBC 3.94 Hemoglobin 13.5 Hematocrit 37.8 Platelets 226 Sodium 135 Potassium 3.7 Chloride 98 CO2 28 BUN 14 Creatinine 0.78 Glucose Lvl 103 Calcium 9.2 Total Protein 7.6 Albumin 4.1 Total Bilirubin 0.9 Alk Phos 76 AST 19 ALT 35 Neutr Abs (ANC) 2.42 CA 125 10 documented in this encounter Plan of Treatment Upcoming Encounters Date Type Department Care Team (Latest Contact Info) Description 12/25/2023 9:[address] Scan at [place] [phone] Xavier Malhotra MD [facility] [place] [address] 12/29/2023 Hospital Encounter Electrophysiology Lab at [place] [address] Xavier Malhotra MD [facility] [place] [address] Paroxysmal atrial fibrillation 12/29/2023 7:30 AM EDT - 12/29/2023 12:00 PM EDT Surgery Electrophysiology Lab at [place] [address] Xavier Malhotra MD [facility] [place] [address] ELECTROPHYSIOLOGY PROCEDURE 01/14/2024 10:40 AM EDT Office Visit Cardiology at [place] [address] Carmen Castaneda PA [facility] [place] [address] Scheduled Procedures Name Priority Associated Diagnoses Date/Ti me TRANSESOPHAGEAL ECHO DURING CATH/EP PROCEDURE Paroxysmal atrial fibrillation 12/29/2023 7:30 AM EDT documented as of this encounter Visit Diagnoses Not on filedocumented in this encounter Care Teams Meat Process Worker Relationship Specialty Start Date End Date Evelyne Hunt APRN [address] [facility] [place] [address] PCP - General Internal Medicine 09/23/17 documented as of this encounter
--- OUTSIDE RECORDS SUMMARY | 2023-12-01 02:17 | XMS_ITS | Encounter Summary ---
Author Organization [facility] [place] [address] Care Team Providers Care Accounting Associate Name Role Phone Evelyne Hunt TENISHA Primary Care Provider [phone] Encounter Details Date Type Department Care Team (Late st Contact Info) Description 09/17/2019 Orders Only [place] [address] [facility] [place] [address] Ovarian cancer, lateral, stage IIIb high-grade serous/endometrioid, [...] 9:[address] [place] [phone] [facility] ELECTROPHYSIOL [place], [place] [phone] 12/29/2023 Hospital Encounter [place] [phone] [facility] [place] [address] Paroxysmal atrial fibrillation 12/29/2023 7:30 AM EDT - 12/29/2023 12:00 PM EDT Surgery [place] [phone] [facility] [place] [address] ELECTROPHYSIOLOGY PROCEDURE 01/14/2024 10:40 AM EDT Office Visit Cardiology at [address] [phone] [facility] [place] [address] Scheduled Procedures Name Priority Associated Diagnoses Date/Ti me TRANSESOPHAGEAL ECHO DURING CATH/EP PROCEDURE Paroxysmal atrial fibrillation 12/29/2023 7:30 AM EDT documented as of this encounter Visit Diagnoses Diagnosis Ovarian cancer, lateral, stage IIIb high-grade serous/endometrioid, 07/20/2019 s/p FREDI/BSO/oment/PPALND/RSReanstomosis Paroxysmal atrial fibrillation Atrial fibrillation Paroxysmal atrial fibrillation Atrial fibrillation documented in this encounter Care Teams Accounting Associate Relationship Specialty Start Date End Date Evelyne Hunt APRN [address] [place] [address] PCP - General Internal Medicine 09/23/17 documented as of this encounter
--- OUTSIDE RECORDS SUMMARY | 2023-12-01 02:17 | XMS_ITS | Encounter Summary ---
Author Organization [facility] [place] [address] Care Team Providers Care Pyridine Recovery Operator Name Role Phone Evelyne Hunt Dat STEVEN Primary Care Provider [phone] Encounter Details Date Type Department Care Team (Late st Contact Info) Description 09/27/2019 External Results Hematology and Oncology at [place] [phone] Mary Mclain, RN Social History Tobacco Use [...] 9:[address] [place] [address] Xavier Malhotra MD [facility] [place] [address] 12/29/2023 Hospital Encounter Electrophysiology Lab at [place] [phone] Xavier Malhotra MD [facility] [address] [place] [place] [phone] Paroxysmal atrial fibrillation 12/29/2023 7:30 AM EDT - 12/29/2023 12:00 PM EDT Surgery Electrophys[place] [phone] Xavier Malhotra MD [facility] [place] [address] ELECTROPHYSIOLOGY PROCEDURE 01/14/2024 10:40 AM EDT Office Visit Cardiology at [address] [phone] Carmen Castaneda PA [facility] CARDIOLOGY [place], [place] [phone] Scheduled Procedures Name Priority Associated Diagnoses Date/Ti me TRANSESOPHAGEAL ECHO DURING CATH/EP PROCEDURE Paroxysmal atrial fibrillation 12/29/2023 7:30 AM EDT documented as of this encounter Procedures Procedure Name Priority Date/Time Associated Diagnosis Comments CBC (WITH DIFF) Routine 09/27/2019 CBC (WITH DIFF) Routine 09/27/2019 documented in this encounter Results * CBC (with Diff) (09/27/2019) Blood specimen (specimen) Historical Provider HEMATOLOGY ORDERA BLES * CBC (with Diff) (09/27/2019) White Blood Cell 5.91 Hemoglobin 13.4 Hematocrit 36.7 Platelet 213 Neutrophil % 69.3 ANC 4,090 Blood specimen (specimen) 09/27/2019 Natalie Vallejo MD HEMATOLOGY ORDERABLE S documented in this encounter Visit Diagnoses Not on filedocumented in this encounter Care Teams Pyridine Recovery Operator Relationship Specialty Start Date End Date Evelyne Hunt APRN [address] [place] [address] PCP - General Internal Medicine 09/23/17 documented as of this encounter
--- OUTSIDE RECORDS SUMMARY | 2023-12-01 02:17 | XMS_ITS | Encounter Summary ---
Author Organization [facility] [place] [facility] [place] [address] Care Team Providers Care Food Equipment Service Technician Name Role Phone Evelyne Hunt Dat STEVEN Primary Care Provider [phone] Encounter Details Date Type Department Care Team (Late st Contact Info) Description 11/15/2019 External Results Gy[place]cology [place] [address] Natalie Vallejo MD [facility] [place] [address] Social History Tobacco Use Types [...] 9:[address] [place] [address] Xavier Malhotra MD [facility] [place] [address] 12/29/2023 Hospital Encounter Elect[place] [address] Xavier Malhotra MD [facility] [place] [address] Paroxysmal atrial fibrillation 12/29/2023 7:30 AM EDT - 12/29/2023 12:00 PM EDT Surgery [place] [phone] Xavier Malhotra MD [facility] [place] [place] [address] ELECTROPHYSIOLOGY PROCEDURE 01/14/2024 10:40 AM EDT Office Visit Cardiology at [place] [phone] Carmen Castaneda PA [facility] [place] [address] Scheduled Procedures Name Priority Associated Diagnoses Date/Ti me TRANSESOPHAGEAL ECHO DURING CATH/EP PROCEDURE Paroxysmal atrial fibrillation 12/29/2023 7:30 AM EDT documented as of this encounter Procedures Procedure Name Priority Date/Time Associated Diagnosis Comments EXTERNAL LAB CBC CMP THYROID RESULTS PANEL Routine 11/15/2019 CBC (WITH DIFF) Routine 11/15/2019 documented in this encounter Results * CBC (with Diff) (11/15/2019) Blood specimen (specimen) Historical Provider HEMATOLOGY ORDERA BLES * CBC / CMP / Thyroid External Results (11/15/2019) White Blood Cell 2.90 Red Blood Cell 3.37 Hemoglobin 12.0 Hematocrit 34.0 Platelet 234 ANC 1.190 11/15/2019 Natalie Vallejo MD EXTERNAL LAB ORDERAB LES documented in this encounter Visit Diagnoses Not on filedocumented in this encounter Care Teams Food Equipment Service Technician Relationship Specialty Start Date End Date Evelyne Hunt, LOCOMOTIVE DRIVER [address] [place] [address] PCP - General Internal Medicine 09/23/17 documented as of this encounter
--- OUTSIDE RECORDS SUMMARY | 2023-12-01 02:17 | XMS_ITS | Encounter Summary ---
Author Organization [facility] Address [facility] [address] Care Team Providers Care Vice President Of Compliance Name Role Phone Kiki Huntyce Dat STEVEN Primary Care Provider [phone] Reason for Visit * Reason Comments Chemotherapy carbo/taxol/avastin, Urine dip negative Encounter Details Date Type Department Care Team (Late st Contact Info) Description 11/01/2019 8:30 AM EDT Office Visit [place] [address] Pasquale Mederos MD [facility] [place] [address] Ovarian cancer, unspecified laterality (Primary Dx) Social History Tobacco Use Types [...] Sign Reading Time Taken Comments Blood Pressure 150/96 11/01/2019 8:24 AM EDT Pulse 93 11/01/2019 8:24 AM EDT Temperature 36.4 ??C (97.6 ??F) 11/01/2019 8:24 AM ED T Respiratory Rate 16 11/01/2019 8:24 AM EDT Oxygen Saturation 100% 11/01/2019 8:24 AM EDT Inhaled Oxygen Concentration - - Weight 54.7 kg (120 lb 9.5 oz) 11/01/2019 8:24 A M EDT Height 164.4 cm (5' 4.72) 11/01/2019 8:24 AM ED T Body Mass Index 20.24 11/01/2019 8:24 AM EDT documented in this encounter Progress Notes * Pasquale Mederos MD - 11/01/2019 8:30 AM EDT Division [place] [address] Pre-chemotherapy Visit: Patient Active Problem List Diagnosis [...] Taxol/carbo/Avastin. Tumor Testing: The [employer] analysis of vIana's blood showed no germline (heritable) mutation was [...] to the office today before cycle # 4 of Taxol/Carbo/Avastin chemotherapy. She did well with her last cycle and did not have a Taxol reaction and feels so much better today without anxiety going into this next cycle. Today, she is feeling well overall and denies nausea, vomiting, diarrhea, fever, chills, dysuria, shortness of breath, rashes, cough/cold symptoms, mouth sores or sore throat. No numbness/tingling inher hands/feet. Review of Systems Constitutional: Positive for unexpected weight change (lost a few more pouds). Respiratory: Negative for cough and shortness of breath. Cardiovascular: Negative. Negative for chest pain. Gastrointestinal: Negative for abdominal pain, blood in stool, constipation, diarrhea, nausea and vomiting. Genitourinary: Negative. Negative for dysuria. Musculoskeletal: Negative. Skin: Negative. Neurological: Negative for numbness. Psychiatric/Behavioral: The patient is nervous/anxious ( improved). All other systems reviewed and are negative. Objective: Vitals: 11/01/19 0824 BP: (!) 150/96 Patient Position: Sitting Pulse: 93 Resp: 16 Temp: 36.4 ??C (97.6 ??F) TempSrc: Temporal SpO2: 100% Weight: 54.7 kg (120 lb 9.5 oz) Height: 164.4 cm (5' 4.72) Body mass index is 20.24 kg/m??. Body surface area is 1.58 meters squared. Physical Exam Constitutional: General: She is not in acute distress. Appearance: She is well-developed. Eyes: General: No scleral icterus. Right eye: [...] Hemoglobin: 0- Normal / not present Platelets: 0- Normal / not present Creatinine: 0- Normal Fatigue: 1- Mild fatigue over baseline Hand-foot: 0- Normal / not present Nausea: 0- Normal / not present Vomitin- Normal / not present Neuropathy (sensory): 0- Normal / not present Labs: Acceptable for chemotherapy CA 125 Date Value Ref Range Status 10/07/2019 10 Final 09/14/2019 12 Final Assessment and Plan: Gabi Luna is a 59 y.o. year old stage IIIB mixed serous and endometrioid ovarian cancer whois here today for cycle 4 of Taxol/carbo/Avastin. History of mild Taxol reaction: This went better with the last cycle and she should be outside the window of this at this time. No dose-limiting toxicities, will proceed with chemotherapy today as scheduled. RTC three weeks. PASQUALE MEDEROS MD documented in this encounter Plan of Treatment Upcoming Encounters Date Type Department Care Team (Latest Contact Info) Description 12/25/2023 9:[address] [place] [address] Xavier Malhotra MD [facility] [place] [address] 12/29/2023 Hospital Encounter Electrophysiology Lab at [place] [phone] Xavire Malhotra MD [facility] [place] [address] Paroxysmal atrial fibrillation 12/29/2023 7:30 AM EDT - 12/29/2023 12:00 PM EDT Surgery [place] [address] Xavier Malhotra MD [facility] [place] [address] ELECTROPHYSIOLOGY PROCEDURE 01/14/2024 10:40 AM EDT Office Visit Cardiology at [place] [phone] Carmen Castaneda PA [facility] [place] [address] Scheduled Procedures Name Priority Associated Diagnoses Date/Ti me TRANSESOPHAGEAL ECHO DURING CATH/EP PROCEDURE Paroxysmal atrial fibrillation 12/29/2023 7:30 AM EDT documented as of this encounter Procedures Procedure Name Priority Date/Time Associated Diagnosis Comments POCT URINE DIPSTICK Routine 11/01/2019 8 :30 AM EDT Ovarian cancer, unspecified laterality documented in this encounter Results * POCT urine dipstick (11/01/2019 8:30 AM EDT) POC Protein, UA Negative Negative - Negative mg/dL 11/01/2019 8:30 AM EDT Pasquale Mederos MD POINT OF CARE TEST O RDERABLES documented in this encounter Visit Diagnoses Diagnosis Ovarian cancer, unspecified laterality- Primary Paroxysmal atrial fibrillation Atrial fibrillation Paroxysmal atrial fibrillation Atrial fibrillation documented in this encounter Care Teams Vice President Of Compliance Relationship Specialty Start Date End Date Evelyne Hunt APRN [address] [place] [address] PCP - General Internal Medicine 09/23/17 documented as of this encounter
--- OUTSIDE RECORDS SUMMARY | 2023-12-01 02:17 | XMS_ITS | Encounter Summary ---
Author Organization [facility] Address [facility] [place] [address] Care Team Providers Care B2B Sales Representative Name Role Phone Evelyne Hunt Dat STEVEN Primary Care Provider [phone] Encounter Details Date Type Department Care Team (Late Contact Info) Description 09/08/2019 Telephone Cardiology at [address] [phone] Lilly Sherman LNA Social History Tobacco Use Types Packs/Day [...] encounter Miscellaneous Notes * Telephone Encounter - Lilly Sherman LNA - 09/08/2019 11:54 AM EDT I spoke with Ms. Luna regarding his upcoming Visit with Dr. Toure. No current BP WT: 130lb (08/30/2019) No hospitalizations. All medications and allergies have been updated. documented in this encounter Plan of Treatment Upcoming Encounters Date Type Department Care Team (Latest Contact Info) Description 12/25/2023 9:[address] [place] [address] Xavier Malhotra MD [facility] [address] [place] [address] 12/29/2023 Hospital Encounter Electrophysiology Lab at [place] [phone] Xavier Malhotra MD [facility] [place] [address] Paroxysmal atrial fibrillation 12/29/2023 7:30 AM EDT - 12/29/2023 12:00 PM EDT Surgery [place] [address] Xavier Malhotra MD [facility] [address] [place] [address] ELECTROPHYSIOLOGY PROCEDURE 01/14/2024 10:40 AM EDT Office Visit Cardiology at [place] [phone] Carmen Castaneda PA [facility] [place] [address] Scheduled Procedures Name Priority Associated Diagnoses Date/Ti me TRANSESOPHAGEAL ECHO DURING CATH/EP PROCEDURE Paroxysmal atrial fibrillation 12/29/2023 7:30 AM EDT documented as of this encounter Visit Diagnoses Not on filedocumented in this encounter Care Teams B2B Sales Representative Relationship Specialty Start Date End Date Evelyne Hunt APRN [address] [place] [address] PCP - General Internal Medicine 09/23/17 documented as of this encounter
--- OUTSIDE RECORDS SUMMARY | 2023-12-01 02:17 | XMS_ITS | Encounter Summary ---
Author Organization [facility] Address [facility] [place] [address] Care Team Providers Care Operations Support Professionals Name Role Phone Evelyne Hunt TENISHA Primary Care Provider [phone] Encounter Details Date Type Department Care Team (Late st Contact Info) Description 09/06/2019 Telephone Cardiology at [address] [phone] Praveena Petty RN Social History Tobacco Use [...] Telephone Encounter - Praveena Petty RN - 09/06/2019 10:04 AM EDT Call attempt made to reach patient regarding message left over concerns she has with her heart while undergoing chemo (ovarian Ca).Message was left by team nurse. Will re-attempt again shortly. Praveena Vega RNbehavioral science chair Cardiovascular Clinic General Team-Ottoniel documented in this encounter Plan of Treatment Upcoming Encounters Date Type Department Care Team (Latest Contact Info) Description 12/25/2023 9:[address] [place] [address] Xavier Malhotra MD [facility] [place] [address] 12/29/2023 Hospital Encounter Electrophysiology Lab at [place] [phone] Xavier Malhotra MD [facility] [place] [address] Paroxysmal atrial fibrillation 12/29/2023 7:30 AM EDT - 12/29/2023 12:00 PM EDT Surgery Electrophysiology Lab at [address] Xavier Malhotra MD [facility] [place] [address] ELECTROPHYSIOLOGY PROCEDURE 01/14/2024 10:40 AM EDT Office Visit Cardiology at [place] [phone] Carmen Castaneda PA [facility] [place] [address] Scheduled Procedures Name Priority Associated Diagnoses Date/Ti me TRANSESOPHAGEAL ECHO DURING CATH/EP PROCEDURE Paroxysmal atrial fibrillation 12/29/2023 7:30 AM EDT documented as of this encounter Visit Diagnoses Not on filedocumented in this encounter Care Teams Operations Support Professionals Relationship Specialty Start Date End Date Evelyne Hunt APRN [address] [place] [address] PCP - General Internal Medicine 09/23/17 documented as of this encounter
--- OUTSIDE RECORDS SUMMARY | 2023-12-01 02:17 | XMS_ITS | Encounter Summary ---
Author Organization [facility] [place] [address] Care Team Providers Care Sterile Technician Name Role Phone Kiki Huntyce Dat STEVEN Primary Care Provider [phone] Encounter Details Date Type Department Care Team (Late st Contact Info) Description 09/06/2019 Telephone Cardiology at [address] [phone] Praveena Petty, RN Social History Tobacco Use [...] Encounter - Praveena Petty RN - 09/06/2019 1:15 PM EDT Patient called per recommendation of gynecology nurse to report that she has been having brief episodes of chest ache/pains that come and go. She is concerned about her heart since she has started chemo for ovarian ca- this is her first week she says. Patient reports she doesn't have any other sx along with the CP, denying SOB, syncope, no palpitations or N/V reported thus far. She felt a little lightheaded today after chemo which resolved.Patientstates she had an allergic reaction to the first chemo infusion but it was restarted about an hour later. Patient states she has been trying to walk daily and she has some tingling in her fingers she says is from neuropathy. After lengthy discussion patient does not appear to be in any distress and the CP is what she has had for some time though may feel a bit differently this time ( not started at time of chemo). She has already made a THC appt. for 09/15/19 and feels this is best and she says she just needs some reassurance that her heart is OK going through chemo. Patient states Dr. Vallejo told her the medication would not be too hard on her heart. Patient agrees to call team nurse back with any worsening sx or changes. Praveena Vega RNskin grader Cardiovascular Clinic General Team-Green documented in this encounter Plan of Treatment Upcoming Encounters Date Type Department Care Team (Latest Contact Info) Description 12/25/2023 9:[address] Scan at [place] [phone] Xavier Malhotra MD [facility] [place] [address] 12/29/2023 Hospital Encounter [place] [address] Xavier Malhotra MD [facility] [place] [address] Paroxysmal atrial fibrillation 12/29/2023 7:30 AM EDT - 12/29/2023 12:00 PM EDT Surgery [place] [phone] Xavier Malhotra MD [facility] [place] [address] ELECTROPHYSIOLOGY PROCEDURE 01/14/2024 10:40 AM EDT Office Visit Cardiology at [place] [phone] Carmen Castaneda PA [facility] [place] [address] Scheduled Procedures Name Priority Associated Diagnoses Date/Ti me TRANSESOPHAGEAL ECHO DURING CATH/EP PROCEDURE Paroxysmal atrial fibrillation 12/29/2023 7:30 AM EDT documented as of this encounter Visit Diagnoses Not on filedocumented in this encounter Care Teams Sterile Technician Relationship Specialty Start Date End Date Evelyne Hunt APRN [address] [place] [address] PCP - General Internal Medicine 09/23/17 documented as of this encounter
--- OUTSIDE RECORDS SUMMARY | 2023-12-01 02:17 | XMS_ITS | Encounter Summary ---
Author Organization [facility] [place] [address] Care Team Providers Care Forensic Structural Engineer Name Role Phone Marilee Evelyne Daugherty APRN Primary Care Provider [phone] Encounter Details Date Type Department Care Team (Late st Contact Info) Description 11/01/2019 External Results [place] [address] Social History Tobacco Use Types [...] 9:[address] [place] [address] [facility] [place] [address] 12/29/2023 Hospital Encounter [place] [address] [facility] [place] [address] Paroxysmal atrial fibrillation 12/29/2023 7:30 AM EDT - 12/29/2023 12:00 PM EDT Surgery [place] [phone] [facility] [place] [address] ELECTROPHYSIOLOGY PROCEDURE 01/14/2024 10:40 AM EDT Office Visit Cardiology at [address] [phone] [facility] [place] [place] [address] Scheduled Procedures Name Priority Associated Diagnoses Date/Ti me TRANSESOPHAGEAL ECHO DURING CATH/EP PROCEDURE Paroxysmal atrial fibrillation 12/29/2023 7:30 AM EDT documented as of this encounter Procedures Procedure Name Priority Date/Time Associated Diagnosis Comments EXTERNAL LAB CBC CMP THYROID RESULTS PANEL Routine 10/28/2019 documented in this encounter Results * CBC / CMP / Thyroid External Results (10/28/2019) Historical Provider EXTERNAL LAB TONJA SUAREZ documented in this encounter Visit Diagnoses Not on filedocumented in this encounter Care Teams Forensic Structural Engineer Relationship Specialty Start Date End Date Evelyne Hunt APRN [address] [place] [address] PCP - General Internal Medicine 09/23/17 documented as of this encounter
--- OUTSIDE RECORDS SUMMARY | 2023-12-01 02:17 | XMS_ITS | Encounter Summary ---
Author Organization [facility] [place] [address] Care Team Providers Care Apparatus Cleaner Name Role Phone Evelyne Hunt Dat STEVEN Primary Care Provider [phone] Encounter Details Date Type Department Care Team (Late st Contact Info) Description 10/26/2019 External Results [place] [address] Natalie Vallejo MD [facility] [place] [address] Social History Tobacco Use Types [...] 9:[address] [place] [address] Xavier Malhotra MD [facility] [place] [address] 12/29/2023 Hospital Encounter [place] [address] Xavier Malhotra MD [facility] [place] [address] Paroxysmal atrial fibrillation 12/29/2023 7:30 AM EDT - 12/29/2023 12:00 PM EDT Surgery [place] [phone] Xavier Malhotra MD [facility] [place] [address] ELECTROPHYSIOLOGY PROCEDURE 01/14/2024 10:40 AM EDT Office Visit Cardiology at [place] [phone] Carmen Castaneda PA [facility] [place] [address] Scheduled Procedures Name Priority Associated Diagnoses Date/Ti me TRANSESOPHAGEAL ECHO DURING CATH/EP PROCEDURE Paroxysmal atrial fibrillation 12/29/2023 7:30 AM EDT documented as of this encounter Procedures Procedure Name Priority Date/Time Associated Diagnosis Comments EXTERNAL LAB CBC CMP THYROID RESULTS PANEL Routine 10/25/2019 documented in this encounter Results * CBC / CMP / Thyroid External Results (10/25/2019) White Blood Cell 2.59 Red Blood Cell 3.62 Hemoglobin 12.6 Hematocrit 35.0 Platelet 270 ANC 1.00 10/25/2019 Natalie Vallejo MD EXTERNAL LAB ORDERAB LES documented in this encounter Visit Diagnoses Not on filedocumented in this encounter Care Teams Apparatus Cleaner Relationship Specialty Start Date End Date Evelyne Hunt APRN [address] [place] [address] PCP - General Internal Medicine 09/23/17 documented as of this encounter
--- OUTSIDE RECORDS SUMMARY | 2023-12-01 02:17 | XMS_ITS | Encounter Summary ---
Author Organization [facility] [place] [address] Care Team Providers Care Field Supervisor Name Role Phone Evelyne Hunt APRN Primary Care Provider [phone] Reason for Visit * Reason Comments Chemotherapy [...] TC PACLITAXEL, 1MG, INJ Natalie Vallejo MD [facility] [place] [address] [facility] [address] [place] [address] Referral ID Status Reason Start Date Expiration Date V isits Requested Visits Authorized [id number] 08/30/2019 05/28/2020 13 13 Encounter Details Date Type Department Care Team (Latest Contact Info) Description 10/11/2019 8:11 AM EDT - 10/11/2019 11:59 PM EDT Hospital Encounter Hematology [place] [address] Ovarian cancer, lateral, stage IIIb [...] Sign Reading Time Taken Comments Blood Pressure 156/85 10/11/2019 9:53 AM EDT Pulse - - Temperature - [...] mg by mouth daily. 02/01/2020 HYDROcodone-acetaminoph en ([place]) 5-325 mg Tablet Take 1-2 tablets by [...] as of this encounter Progress Notes * Isabella Razo, RN - 10/11/2019 4:32 PM EDT Patient Name: Gabi Luna Patient Age: 59 y.o. Birthdate: 1960 Admit date: 10/11/2019 Attending Physician: No att. providers found TIME TREATMENT STARTED: 1040 TIME TREATMENT ENDED: 1630 Gabi Luna, 59 y.o. female with diagnosis of Ovarian Cancer is here for chemotherapy infusion of Taxol/Carbo/Pavithra. PROTOCOL: NA CYCLE: 3 WEEK: NA DAY: 1 S: Pt. offers no complaints at this time. O: Chemotherapy orders independently verified for correct drug name, route and dosage per patient'sheight, weight and BSA by Isabella Razo RN and onsite pharmacist REACTIONS (DESCRIPTION, TIME, INTERVENTION AND EFFECTIVENESS) None A: Pt. Tolerated treatment well. Gabi Lnua confirms that all questions and issues have beenaddressed. P: Return to clinic per routine documented in this encounter Plan of Treatment Upcoming Encounters Date Type Department Care Team (Latest Contact Info) Description 12/25/2023 9:[address] [place] [phone] Xavier Malhotra MD [facility] [place] [address] 12/29/2023 Hospital Encounter [place] [phone] Xavier Malhotra MD [facility] [place] [address] Paroxysmal atrial fibrillation 12/29/2023 7:30 AM EDT - 12/29/2023 12:00 PM EDT Surgery [place] [phone] Xavier Malhotra MD [facility] [place] [address] ELECTROPHYSIOLOGY PROCEDURE 01/14/2024 10:40 AM EDT Office Visit Cardiology at [address] [phone] Carmen Castaneda PA [facility] [place] [place] [address] Scheduled Procedures Name Priority Associated Diagnoses Date/Ti [...] 650 mg, Oral, ONCE, 1 dose, On Fri10/11/19 at 1045, Administer prior to BEVACizumab., Routine Given 10/11/2019 3:08 PM EDT 650 mg aprepitant (CINVANTI) injection Emul 130 mg 130 mg, Intravenous, Administer over 2 Minutes, ONCE, 1 dose, On Fri10/11/19 at 1045, Alternative administration of IV push over 2 minutes is a recommendation from the game producer. Administer prior to chemotherapy., Routine Given 10/11/2019 10:42 AM EDT 130 mg BEVACizumab-awwb (MVASI) 900 mg in sodium chloride 0.9% 136 mL infusion 900 mg, Intravenous, ONCE, 1 dose, On Fri10/11/19 at 1145, Administer over 30 Minutes, Compatible with 0.9% sodium chloride ONLY, Dose Ordered = 855 mg (15 mg/kg). Pharmacist rounded dose per procedure., This agent is restricted to outpatient use. Is this drug being given as an outpatient? Yes New Bag 10/11/2019 3:46 PM EDT 900 mg 272 mL/hr CARBOplatin (PARAPLATIN) 484 mg in dextrose 5% 298.4 mL chemo infusion 484 mg (rounded from 483.5 mg, Target AUC = 5), Intravenous, ONCE, 1 dose, On Fri10/11/19 at 1145, Administer over 30 Minutes, Warning Vesicant/Irritant Medication New Bag 10/11/2019 3:05 PM EDT 484 mg 596.8 mL/hr dexamethasone 20 mg in sodium chloride 0.9% 50 mL infusion 20 mg, Intravenous, ONCE, 1 dose, On Fri10/11/19 at 1045, Administer over 10 Minutes, Administer 30 minutes prior to PACLitaxel New Bag 10/11/2019 10:47 AM EDT 20 mg 300 mL/hr diphenhydrAMINE (Benadryl) capsule 25 mg 25 mg, Oral, ONCE, 1 dose, On Fri10/11/19 at 1045, Routine Given 10/11/2019 10:40 AM EDT 25 mg famotidine (PEPCID) injection 20 mg 20 mg, Intravenous, ONCE, 1 dose, On Fri10/11/19 at 1045, Administer 30 minutes prior to PACLitaxel Given 10/11/2019 10:42 AM EDT 20 mg PACLitaxeL (TAXOL) 282 mg in sodium chloride 0.9% Non-PVC 547 mL chemo infusion 282 mg (rounded from 281.75 mg = 175 mg/m2/dose ? 1.61 m2 Treatment Plan BSA from Recorded weight), Intravenous, ONCE, 1 dose, On Fri10/11/19 at 1145, Administer over 3 Hours, Warning Vesicant/Irritant Medication New Bag 10/11/2019 11:40 AM EDT 282 mg 182.3 mL/hr palonosetron (ALOXI) injection 0.25 mg 0.25 mg, Intravenous, ONCE, 1 dose, On Fri10/11/19 at 1045, Administer over 30 seconds., Routine Given 10/11/2019 10:42 AM EDT 0.25 mg documented in this encounter Care Teams Field Supervisor Relationship Specialty Start Date End Date Evelyne Hunt, CLAIM APPROVER [address] [place] [address] PCP - General Internal Medicine 09/23/17 documented as of this encounter
--- OUTSIDE RECORDS SUMMARY | 2023-12-01 02:17 | XMS_ITS | Encounter Summary ---
Author Organization [facility] [place] [address] Care Team Providers Care Fence Erector Name Role Phone Kiki Huntyce Dat STEVEN Primary Care Provider [phone] Encounter Details Date Type Department Care Team (Late st Contact Info) Description 09/20/2019 Notes Only Hematology [place] [phone] Leo Flores MD [facility] DR HEMATOLOGY/[place] [address] Social History Tobacco Use Types Packs/Day Years [...] as of this encounter Progress Notes * Leo Flores MD - 09/20/2019 9:00 AM EDT I have reviewed the patient's record and given personal and/or family history of cancer she should be seen by genetic counselor. This is scheduled for later today. documented in this encounter Plan of Treatment Upcoming Encounters Date Type Department Care Team (Latest Contact Info) Description 12/25/2023 9:[address] [place] [address] Xavier Malhotra MD [facility] [place] [address] 12/29/2023 Hospital Encounter Electrophysiology Lab at [place] [address] Xavier Malhotra MD [facility] [place] [address] Paroxysmal atrial fibrillation 12/29/2023 7:30 AM EDT - 12/29/2023 12:00 PM EDT Surgery Electrophysiology Lab at [place] [address] Xavier Malhotra MD [facility] [place] [address] ELECTROPHYSIOLOGY PROCEDURE 01/14/2024 10:40 AM EDT Office Visit Cardiology at [place] [address] Carmen Castaneda PA [facility] [place] [address] Scheduled Procedures Name Priority Associated Diagnoses Date/Ti me TRANSESOPHAGEAL ECHO DURING CATH/EP PROCEDURE Paroxysmal atrial fibrillation 12/29/2023 7:30 AM EDT documented as of this encounter Visit Diagnoses Not on filedocumented in this encounter Care Teams Fence Erector Relationship Specialty Start Date End Date Evelyne Hunt APRN 4 [facility] [place] [address] PCP - General Internal Medicine 09/23/17 documented as of this encounter
--- OUTSIDE RECORDS SUMMARY | 2023-12-01 02:17 | XMS_ITS | Encounter Summary ---
Author Organization [facility] [place] [address] Care Team Providers Care Band Log Mill And Carriage Operator Name Role Phone MarileeEvelyne APRN Primary Care Provider [phone] Reason for Visit * Reason Onset Date Comments Results 10/13/2019 Encounter Details Date Type Department Care Team (Late st Contact Info) Description 10/13/2019 Telephone Hematology [place] [address] Crystal Navarrete LGC [facility] HEMATOLOGY/[place] [address] Results Social History Tobacco Use Types Packs/Day [...] encounter Miscellaneous Notes * Telephone Encounter - Crystal Navarrete LGC - 10/13/2019 2:37 PM EDT Left message asking Gabi to call me back to go over her genetic test results. documented in this encounter Plan of Treatment Upcoming Encounters Date Type Department Care Team (Latest Contact Info) Description 12/25/2023 9:[address] [place] [address] Xavier Malhotra MD [facility] [place] [address] 12/29/2023 Hospital Encounter Electrophysiology Lab at [place] [address] Xavier Malhotra MD [facility] [place] [address] Paroxysmal atrial fibrillation 12/29/2023 7:30 AM EDT - 12/29/2023 12:00 PM EDT Surgery [place]rophys[place] [address] Xavier Malhotra MD [facility] [place] [address] ELECTROPHYSIOLOGY PROCEDURE 01/14/2024 10:40 AM EDT Office Visit Cardiology at [place] [address] Carmen Castaneda PA [facility] [place] [address] Scheduled Procedures Name Priority Associated Diagnoses Date/Ti me TRANSESOPHAGEAL ECHO DURING CATH/EP PROCEDURE Paroxysmal atrial fibrillation 12/29/2023 7:30 AM EDT documented as of this encounter Visit Diagnoses Not on filedocumented in this encounter Care Teams Band Log Mill And Carriage Operator Relationship Specialty Start Date End Date [facility] Hunt [facility] [place] [address] PCP - General Internal Medicine 09/23/17 documented as of this encounter
--- OUTSIDE RECORDS SUMMARY | 2023-12-01 02:17 | XMS_ITS | Encounter Summary ---
Author Organization [facility] [place] [address] Care Team Providers Care Adult Remedial Education Instructor Name Role Phone Evelyne Hunt APRN Primary Care Provider [phone] Reason for Visit * Reason Comments Chemotherapy [...] [facility] [place] [address] [facility] [address] [place] [address] Referral ID Status Reason Start Date Expiration Date V isits Requested Visits Authorized [id number] 08/30/2019 05/28/2020 13 13 Encounter Details Date Type Department Care Team (Latest Contact Info) Description 11/01/2019 8:10 AM EDT - 11/01/2019 11:59 PM EDT Hospital Encounter Hematology [place] [address] Ovarian cancer, lateral, stage IIIb high-grade serous/endometrioid [...] of this encounter Progress Notes * Isabella Razo RN - 11/01/2019 3:37 PM EDT Patient Name: Gabi Luna Patient Age: 59 y.o. Birthdate: 1960 Admit date: 11/01/2019 Attending Physician: No att. providers found TIME TREATMENT STARTED: 1030 TIME TREATMENT ENDED: 1600 Gabi Luna, 59 y.o. female with diagnosis of Ovarian Cancer is here for chemotherapy infusion of Taxol/Carbo/Avastin. PROTOCOL: NA CYCLE: 4 WEEK: NA DAY: 1 S: Pt. offers [...] 9:[address] Scan at [place] [phone] Xavier Malhotra MD [facility] [place] [address] 12/29/2023 Hospital Encounter Electrophysiology Lab at [place] [address] Xavier Malhotra MD [facility] [place] [address] Paroxysmal atrial fibrillation 12/29/2023 7:30 AM EDT - 12/29/2023 12:00 PM EDT Surgery Electrophysiology Lab at [place] [address] Xavier Malhotra MD [facility] [place] [address] ELECTROPHYSIOLOGY PROCEDURE 01/14/2024 10:40 AM EDT Office Visit Cardiology at [address] [address] Carmen Castaneda PA [facility] [place] [address] Scheduled Procedures Name Priority Associated Diagnoses Date/Ti [...] 650 mg, Oral, ONCE, 1 dose, On 11/01/19 at 0945, Administer prior to BEVACizumab., Routine Given 11/01/2019 2:41 PM EDT 650 mg aprepitant (CINVANTI) injection Emul 130 mg 130 mg, Intravenous, Administer over 2 Minutes, ONCE, 1 dose, On Fri11/01/19 at 0945, Alternative administration of IV push over 2 minutes is a recommendation from the coal tram driver. Administer prior to chemotherapy., Routine Given 11/01/2019 10:31 AM EDT 130 mg BEVACizumab-awwb (MVASI) 800 mg in sodium chloride 0.9% 132 mL infusion 800 mg, Intravenous, ONCE, 1 dose, On Fri11/01/19 at 1045, Administer over 30 Minutes, Compatible with 0.9% sodium chloride ONLY, Dose Ordered = 855 mg (15 mg/kg). Pharmacist rounded dose per procedure., This agent is restricted to outpatient use. Is this drug being given as an outpatient? Yes New Bag 11/01/2019 3:23 PM EDT 800 mg 264 mL/hr CARBOplatin (PARAPLATIN) 549 mg in dextrose 5% 304.9 mL chemo infusion 549 mg (Target AUC = 5), Intravenous, ONCE, 1 dose, On Fri11/01/19 at 1045, Administer over 30 Minutes, Warning Vesicant/Irritant Medication New Bag 11/01/2019 2:44 PM EDT 549 mg 609.8 mL/hr dexamethasone 20 mg in sodium chloride 0.9% 50 mL infusion 20 mg, Intravenous, ONCE, 1 dose, On Fri11/01/19 at 0945, Administer over 10 Minutes, Administer 30 minutes prior to PACLitaxel New Bag 11/01/2019 10:38 AM EDT 20 mg 300 mL/hr diphenhydrAMINE (Benadryl) capsule 25 mg 25 mg, Oral, ONCE, 1 dose, On Fri11/01/19 at 0945, Routine Given 11/01/2019 10:29 AM EDT 25 mg famotidine (PEPCID) injection 20 mg 20 mg, Intravenous, ONCE, 1 dose, On Fri11/01/19 at 0945, Administer 30 minutes prior to PACLitaxel Given 11/01/2019 10:31 AM EDT 20 mg PACLitaxeL (TAXOL) 282 mg in sodium chloride 0.9% Non-PVC 547 mL chemo infusion 282 mg (rounded from 281.75 mg = 175 mg/m2/dose ? 1.61 m2 Treatment Plan BSA from Recorded weight), Intravenous, ONCE, 1 dose, On Fri11/01/19 at 1045, Administer over 3 Hours, Warning Vesicant/Irritant Medication New Bag 11/01/2019 11:20 AM EDT 282 mg 182.3 mL/hr palonosetron (ALOXI) injection 0.25 mg 0.25 mg, Intravenous, ONCE, 1 dose, On Fri11/01/19 at 0945, Administer over 30 seconds., Routine Given 11/01/2019 10:31 AM EDT 0.25 mg documented in this encounter Care Teams Adult Remedial Education Instructor Relationship Specialty Start Date End Date Evelyne Hunt APRN [address] [place] [address] PCP - General Internal Medicine 09/23/17 documented as of this encounter
--- OUTSIDE RECORDS SUMMARY | 2023-12-01 02:17 | XMS_ITS | Encounter Summary ---
Author Organization [facility] [place] [address] Care Team Providers Care Precision Lathe Operator Name Role Phone Kiki Huntyce Dat STEVEN Primary Care Provider [phone] Reason for Visit * Reason Onset Date Comments Results 10/20/2019 Encounter Details Date Type Department Care Team (Late st Contact Info) Description 10/20/2019 Telephone Hematology [place] [phone] Mary Mclain, RN Results Social History Tobacco [...] Telephone Encounter - Mary Mclain RN - 10/20/2019 3:00 PM EDT Relayed following results to pt Recent Results (from the past 72 hour(s)) CBC (with Diff) Result Value Ref Range WBC 4.53 Hemoglobin 12.8 Hematocrit 35.4 (L) Platelets 166 Neutrophils % 62.5 Neutr Abs (ANC) 2,830 documented in this encounter Plan of Treatment Upcoming Encounters Date Type Department Care Team (Latest Contact Info) Description 12/25/2023 9:[address] [place] [address] Xavier Malhotra MD [facility] [place] [address] 12/29/2023 Hospital Encounter Electrophysiology Lab at [place] [address] Xavier aMlhotra MD [facility] [place] [address] Paroxysmal atrial fibrillation 12/29/2023 7:30 AM EDT - 12/29/2023 12:00 PM EDT Surgery [place] [address] Xavier Malhotra MD [facility] [place] [address] ELECTROPHYSIOLOGY PROCEDURE 01/14/2024 10:40 AM EDT Office Visit Cardiology at [place] [phone] Carmen Castaneda PA [facility] [place] [address] Scheduled Procedures Name Priority Associated Diagnoses Date/Ti me TRANSESOPHAGEAL ECHO DURING CATH/EP PROCEDURE Paroxysmal atrial fibrillation 12/29/2023 7:30 AM EDT documented as of this encounter Visit Diagnoses Not on filedocumented in this encounter Care Teams Precision Lathe Operator Relationship Specialty Start Date End Date Evelyne Hunt APRN [address] [place], [place] [address] [place] [address] PCP - General Internal Medicine 09/23/17 documented as of this encounter
--- OUTSIDE RECORDS SUMMARY | 2023-12-01 02:17 | XMS_ITS | Encounter Summary ---
Author Organization [facility] [place] [address] Care Team Providers Care Dynamics Ax Technical Architect Name Role Phone Evelyne Hunt Dat STEVEN Primary Care Provider [phone] Encounter Details Date Type Department Care Team (Late st Contact Info) Description 10/29/2019 External Results [place] [address] Natalie Vallejo MD [facility] [place] [address] Social History Tobacco Use Types [...] 9:[address] [place] [address] Xavier Malhotra MD [facility] [place] [address] 12/29/2023 Hospital Encounter [place] [address] Xavier Malhotra MD [facility] [place] [address] Paroxysmal atrial fibrillation 12/29/2023 7:30 AM EDT - 12/29/2023 12:00 PM EDT Surgery [place] [address] Xavier Malhotra MD [facility] [place] [address] ELECTROPHYSIOLOGY PROCEDURE 01/14/2024 10:40 AM EDT Office Visit Cardiology at [address] [phone] Carmen Castaneda PA [facility] [place] [address] Scheduled Procedures Name Priority Associated Diagnoses Date/Ti me TRANSESOPHAGEAL ECHO DURING CATH/EP PROCEDURE Paroxysmal atrial fibrillation 12/29/2023 7:30 AM EDT documented as of this encounter Procedures Procedure Name Priority Date/Time Associated Diagnosis Comments EXTERNAL LAB CBC CMP THYROID RESULTS PANEL Routine 10/28/2019 documented in this encounter Results * CBC / CMP / Thyroid External Results (10/28/2019) White Blood Cell 3.62 Red Blood Cell 3.72 Hemoglobin 13.0 Hematocrit 36.2 Platelet 323 Sodium 136 Potassium 3.5 Chloride 98 Carbon Dioxide 28 Blood Urea Nitrogen 12 Creatinine 0.66 Glucose 109 Calcium 9.7 Protein, Total 7.8 Albumin 4.0 Bilirubin, Total 0.9 Alkaline Phosphatase 76 Aspartate Aminotransferase 19 Alanine Aminotransferase 32 ANC 1.73 10/28/2019 Natalie Vallejo MD EXTERNAL LAB ORDERAB LES documented in this encounter Visit Diagnoses Not on filedocumented in this encounter Care Teams Dynamics Ax Technical Architect Relationship Specialty Start Date End Date Evelyne Hunt APRN [address] [place] [address] PCP - General Internal Medicine 09/23/17 documented as of this encounter
--- OUTSIDE RECORDS SUMMARY | 2023-12-01 02:17 | XMS_ITS | Encounter Summary ---
Author Organization [facility] [place] [address] Care Team Providers Care Cloth Dyeing Range Tender Name Role Phone Evelyne Hunt Dat STEVEN Primary Care Provider [phone] Encounter Details Date Type Department Care Team (Late st Contact Info) Description 11/08/2019 External Results Hematology and Oncology at [place] [phone] Mary Mclain, RN Social History Tobacco Use [...] 9:[address] [place] [address] Xavier Malhotra MD [facility] [place] [address] 12/29/2023 Hospital Encounter Electrophysiology Lab at [place] [phone] Xavier Malhotra MD [facility] [address] [place] [phone] Paroxysmal atrial fibrillation 12/29/2023 7:30 AM EDT - 12/29/2023 12:00 PM EDT Surgery Electrophys[place] [phone] Xavier Malhotra MD [facility] [place] [address] ELECTROPHYSIOLOGY PROCEDURE 01/14/2024 10:40 AM EDT Office Visit Cardiology at [address] [phone] Carmen Castaneda PA [facility] CARDIOLOGY [place], [place] [phone] Scheduled Procedures Name Priority Associated Diagnoses Date/Ti me TRANSESOPHAGEAL ECHO DURING CATH/EP PROCEDURE Paroxysmal atrial fibrillation 12/29/2023 7:30 AM EDT documented as of this encounter Procedures Procedure Name Priority Date/Time Associated Diagnosis Comments CBC (WITH DIFF) Routine 11/08/2019 CBC (WITH DIFF) Routine 11/08/2019 documented in this encounter Results * CBC (with Diff) (11/08/2019) Blood specimen (specimen) Historical Provider HEMATOLOGY ORDERA BLES * (ABNORMAL) CBC (with Diff) (11/08/2019) White Blood Cell 4.24(EXTER NAL/ABN) Hemoglobin 11.7(EXTER NAL/ABN) Hematocrit 32.6(EXTER NAL/ABN) Platelet 179 Neutrophil % 66.7 ANC 2,830 Blood specimen (specimen) 11/08/2019 Natalie Vallejo MD HEMATOLOGY ORDERABLE S documented in this encounter Visit Diagnoses Not on filedocumented in this encounter Care Teams Cloth Dyeing Range Tender Relationship Specialty Start Date End Date Evelyne Hunt APRN [address] [place] [address] PCP - General Internal Medicine 09/23/17 documented as of this encounter
--- OUTSIDE RECORDS SUMMARY | 2023-12-01 02:17 | XMS_ITS | Encounter Summary ---
Author Organization [facility] Address [facility] [place] [address] Care Team Providers Care Property Disposal Officer Name Role Phone Kiki Huntyce Dat STEVEN Primary Care Provider [phone] Reason for Visit * Reason Onset Date Comments Patient Education 09/21/2019 Encounter Details Date Type Department Care Team (Late st Contact Info) Description 09/21/2019 Telephone [place] [address] Natalie Vallejo MD [facility] [place] [address] Patient Education Social History Tobacco Use Types Packs/Day Years [...] encounter Miscellaneous Notes * Telephone Encounter - Ivonne Campbell [facility] - 09/21/2019 10:05 AM EDT Oncology Clinical Pharmacist Consultation: Cycle 2, Day 1 follow-up Visit Type: Telephone Subjective: Patient ID: Gabi Luna is a 58 y.o. female diagnosed with stage IIIB ovarian cancer who presents today for cycle 2, day 1 of carboplatin/paclitaxel/bevacizumab. Chemotherapy regimen including supportive care was reviewed during the telephone call with the patient. Allergies and Drug intolerance: Allergies Allergen Reactions ??? Penicillins Anaphylaxis CIS - Anaphylaxis ??? Taxol [Paclitaxel] Palpitations and Other (See Comments) 17 mls into Taxol C/O of palpitations/lower back pain.Drug stopped. Benadryl/Pepcid/Ativan given. Was able to start drug at half rate when symptoms subsided and increased rate every 30-60 mins. Was able to complete drug. Chemotherapy Regimen includes the following agents: ?? Carboplatin AUC=5 (592 mg) ?? Paclitaxel 175 mg/m2 (282 mg) ?? Bevacizumab-awwb 15 mg/kg (900 mg) Current Supportive Care Regimen: ?? Acetaminophen 650 mg PO pre-chemotherapy ?? Dexamethasone 20 mg IV pre-chemotherapy ?? Diphenhydramine 50 mg IV pre-chemotherapy ?? Famotidine 20 mg IV pre-chemotherapy ?? Aprepitant 130 mg IV pre-chemotherapy ?? Palonosetron 0.25 mg IV pre-chemotherapy ?? Prochelorperazine 10 mg PO every 6 hours as needed (home med) ?? Ondansetron 8 mg PO every 8 hours as needed (home med) ?? Lorazepam 0.5 mg PO every 6 hours as needed (home med) Common side effects of this regimen include, but are not limited to: ?? Hair thinning/loss ?? Peripheral neuropathy ?? Musculoskeletal pain ?? Nausea/vomiting ?? Diarrhea ?? Myelosuppression (decreased red and white blood cell counts) Patient reports the following side effects during cycle 1: ?? Abdominal pain uncontrolled by acetaminophen or ibuprofen. Called clinic who informed her she can take hydrocodone-acetaminophen left over from surgery. ?? 1 day of constipation followed by diarrhea that lasted all night. Took Miralax last night, has not had a bowel movement today. ?? Fatigue for longer than expected Assessment and Recommendations: Assessment Gabi Luna is a 58 y.o. female diagnosed with ovarian cancer who presents today for cycle 2,day 1 of carboplatin/paclitaxel. She reported the following side effects during cycle 1 of therapy:abdominal pain, constipation/diarrhea, and fatigue. The chemotherapy schedule, supportive care, common side effects, and ways to manage side effects were discussed with the patient during the phone call today. The following side effect mitigation and management strategies were discussed with the patient: ?? Encouraged patient to call clinic again should she have abdominal pain not controlled with ibuprofen or acetaminophen. ?? Reviewed bowel regiment: patient to take another dose of miralax this afternoon, and if no bowelmovement by this evening she should take a senna/docusate. ?? Encouraged patient to continue to be active and get at least 30 minutes of movement in per day to help with fatigue and constipation. Additional Recommendations: Patient asked about pH adjusting water filter and whether that could help with treatment/side effects. Informed patient that there are no studies showing alkaline water has health benefits. Encouraged patient to get a water filter if the taste of her water is unpleasant, or if her water testing shows toxins in her water supply. F/u needed? no Ivana was provided with clinic pharmacist contact information. Pt understands no changes to current drug regimen were made at the appointment and that [facility] is providing recommendations for provider review and follow up. Ivonne Campbell RPH 09/21/19 10:05 AM 30 minutes were spent providing patient education. documented in this encounter Plan of Treatment Upcoming Encounters Date Type Department Care Team (Latest Contact Info) Description 12/25/2023 9:[address] [place] [address] Xavier Malhotra MD [facility] [place] [address] 12/29/2023 Hospital Encounter [place] [phone] Xavier Malhotra MD [facility] [place] [address] Paroxysmal atrial fibrillation 12/29/2023 7:30 AM EDT - 12/29/2023 12:00 PM EDT Surgery [place] [phone] Xavier Malhotra MD [facility] [place] [address] ELECTROPHYSIOLOGY PROCEDURE 01/14/2024 10:40 AM EDT Office Visit Cardiology at [address] [address] Carmen Castaneda PA [facility] [place] [address] Scheduled Procedures Name Priority Associated Diagnoses Date/Ti me TRANSESOPHAGEAL ECHO DURING CATH/EP PROCEDURE Paroxysmal atrial fibrillation 12/29/2023 7:30 AM EDT documented as of this encounter Visit Diagnoses Not on filedocumented in this encounter Care Teams Property Disposal Officer Relationship Specialty Start Date End Date Eveylne Hunt APRN [address] [place] [address] PCP - General Internal Medicine 09/23/17 documented as of this encounter
--- OUTSIDE RECORDS SUMMARY | 2023-12-01 02:17 | XMS_ITS | Encounter Summary ---
Author Organization Formerly [facility] [place] [address] Care Team Providers Care Shipboard Intelligence Analyst Name Role Phone MarileeEvelyne APRN Primary Care Provider [phone] Reason for Visit * Reason Onset Date Comments Results 09/17/2019 Encounter Details Date Type Department Care Team (Late st Contact Info) Description 09/17/2019 Telephone [place] [phone] Jaqueline Doran, RN Results Social History Tobacco [...] Telephone Encounter - Jaqueline Doran, RN - 09/17/2019 12:24 PM EDT Patient called to inform about ANC 1100. Per Dr. Vallejo, if patient wants her labs drawn on Friday, she can come or if she doesn't want to do this then delay treatment for a week. Patient agreeable to get labs drawn on Friday prior to seeing Dr. Vallejo. Stated feeling very confused about this situation, asking if there's anything she can eat or do to bump her counts. Stating she's feeling ok, eating well, no fevers, independent with ADL's and able to drive self to lab appointment. Explained that she's doing everything right taking care of self and having low counts is an expected side effects of chemo and sometimes the body needs some time to recover. Patient feels badly about missing chemo treatment. Encouraged to be hopeful that maybe on Friday her counts will be ok to receive her treatment and to focus on the positive and maybe approach things one day at a time. Patient expressed gratitude for the conversation/clarification and understood to check in at 3k on Friday. documented in this encounter Plan of Treatment Upcoming Encounters Date Type Department Care Team (Latest Contact Info) Description 12/25/2023 9:[address] Scan at [place] [phone] Xavier Malhotra MD [facility] [place] [address] 12/29/2023 Hospital Encounter [place] [phone] Xavier Malhotra MD [facility] [place] [address] Paroxysmal atrial fibrillation 12/29/2023 7:30 AM EDT - 12/29/2023 12:00 PM EDT Surgery Electrophysiology Lab at [place] [phone] Xavier Malhotra MD [facility] [place] [address] ELECTROPHYSIOLOGY PROCEDURE 01/14/2024 10:40 AM EDT Office Visit Cardiology at [address] [phone] Carmen Castaneda PA [facility] [place] [address] Scheduled Procedures Name Priority Associated Diagnoses Date/Ti me TRANSESOPHAGEAL ECHO DURING CATH/EP PROCEDURE Paroxysmal atrial fibrillation 12/29/2023 7:30 AM EDT documented as of this encounter Visit Diagnoses Not on filedocumented in this encounter Care Teams Shipboard Intelligence Analyst Relationship Specialty Start Date End Date Evelyne Hunt, SPEECH CLINICIAN [address] [place] [address] PCP - General Internal Medicine 09/23/17 documented as of this encounter
--- OUTSIDE RECORDS SUMMARY | 2023-12-01 02:17 | XMS_ITS | Encounter Summary ---
Author Organization [facility] [place] [address] Care Team Providers Care Towel Inspector Name Role Phone Evelyne Hunt APRN Primary Care Provider [phone] Reason for Visit * Reason Comments [facility]varian [...] [facility] [place] [address] [facility] Infusion [address] [place] [address] Referral ID Status Reason Start Date Expiration Date V isits Requested Visits Authorized [id number] 08/30/2019 05/28/2020 13 13 Encounter Details Date Type Department Care Team (Latest Contact Info) Description 09/20/2019 8:09 AM EDT Hospital Encounter H[place]ology [place] [address] Ovarian cancer, unspecified laterality; Ovarian [...] Sign Reading Time Taken Comments Blood Pressure 149/93 09/20/2019 11:41 AM EDT Pulse 106 09/20/2019 11:41 AM EDT Temperature - - Respiratory Rate 24 09/20/2019 11:41 AM EDT Oxygen Saturation 100% 09/20/2019 11:41 AM EDT Inhaled Oxygen Concentration - - [...] mg by mouth daily. 02/01/2020 HYDROcodone-acetaminoph en ([place]) 5-325 mg Tablet Take 1-2 tablets by [...] Progress Notes * Darya Whitt RN - 09/20/2019 10:10 AM EDT Patient Name: Gabi Luna Patient Age: 58 y.o. Birthdate: 1960 Admit date: 09/20/2019 Attending Physician: MD Yoni TIME TREATMENT STARTED: 1009 TIME TREATMENT ENDED: 1699 Gabi Luna - Ivana - 58 y.o. female with diagnosis of ovarian cancer, is here for chemotherapy infusion of paclitaxel, carboplatin, and bevacizumab. 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 She takes some relief in knowing she is receiving more premedications today to help prevent a HSR reaction. She has no questions about the treatment. O: Chemotherapy orders independently verified for correct drug name, route and dosage per patient'sheight, weight and BSA by Darya Whitt RN, pharmacy RN, and two pharmacists. REACTIONS (DESCRIPTION, TIME, INTERVENTION AND EFFECTIVENESS) none A: Ivana tolerated treatment well and confirms that all questions and issues have been addressed. P: Return to clinic as advised. documented in this encounter Plan of Treatment Upcoming Encounters Date Type Department Care Team (Latest Contact Info) Description 12/25/2023 9:[address] Scan at [place] [phone] Xavier Malhotra MD [facility] [place] [place] [address] 12/29/2023 Hospital Encounter Electrophysiology Lab at [place] [phone] Xavier Malhotra MD [facility] [place] [place] [address] Paroxysmal atrial fibrillation 12/29/2023 7:30 AM EDT - 12/29/2023 12:00 PM EDT Surgery Electrophysiology Lab at [place] [phone] Xavier Malhotra MD [facility] [place] [place] [address] ELECTROPHYSIOLOGY PROCEDURE 01/14/2024 10:40 AM EDT Office Visit Cardiology at [address] [phone] Carmen Castaneda PA [facility] [place] [address] Scheduled Procedures Name Priority Associated Diagnoses Date/Ti [...] 650 mg, Oral, ONCE, 1 dose, On Fri09/20/19 at 1115, Administer prior to BEVACizumab., Routine Given 09/20/2019 4:17 PM EDT 650 mg aprepitant (CINVANTI) injection Emul 130 mg 130 mg, Intravenous, Administer over 2 Minutes, ONCE, 1 dose, On Fri09/20/19 at 1115, Alternative administration of IV push over 2 minutes is a recommendation from the bank president. Administer prior to chemotherapy., Routine Given 09/20/2019 11:24 AM EDT 130 mg BEVACizumab-awwb (MVASI) 900 mg in sodium chloride 0.9% 136 mL infusion 900 mg, Intravenous, ONCE, 1 dose, On Fri09/20/19 at 1215, Administer over 30 Minutes, Compatible with 0.9% sodium chloride ONLY, Dose Ordered = 855 mg (15 mg/kg). Pharmacist rounded dose per procedure., This agent is restricted to outpatient use. Is this drug being given as an outpatient? Yes New Bag 09/20/2019 4:21 PM EDT 900 mg 272 mL/hr CARBOplatin (PARAPLATIN) 592 mg in dextrose 5% 309.2 mL chemo infusion 592 mg (Target AUC = 5), Intravenous, ONCE, 1 dose, On Fri09/20/19 at 1215, Administer over 30 Minutes, Warning Vesicant/Irritant Medication New Bag 09/20/2019 3:44 PM EDT 592 mg 618.4 mL/hr dexamethasone 20 mg in sodium chloride 0.9% 50 mL infusion 20 mg, Intravenous, ONCE, 1 dose, On Fri09/20/19 at 1115, Administer over 10 Minutes, Administer 30 minutes prior to PACLitaxel New Bag 09/20/2019 11:36 AM EDT 20 mg 300 mL/hr diphenhydrAMINE (BENADRYL) injection 50 mg 50 mg, Intravenous, ONCE, 1 dose, On Fri09/20/19 at 1115, Administer 30 minutes prior to PACLitaxel, Routine Given 09/20/2019 11:18 AM EDT 50 mg famotidine (PEPCID) injection 20 mg 20 mg, Intravenous, ONCE, 1 dose, On Fri09/20/19 at 1115, Administer 30 minutes prior to PACLitaxel Given 09/20/2019 11:20 AM EDT 20 mg heparin, porcine 100 unit/mL flush 500 Units 500 Units, Intravenous, ONCE, 1 dose, On Fri09/20/19 at 0830, Routine Given 09/20/2019 4:53 PM EDT 500 Units PACLitaxeL (TAXOL) 282 mg in sodium chloride 0.9% Non-PVC 547 mL chemo infusion 282 mg (rounded from 281.75 mg = 175 mg/m2/dose ? 1.61 m2 Treatment Plan BSA from Recorded weight), Intravenous, ONCE, 1 dose, On Fri09/20/19 at 1215, Administer over 3 Hours, Warning Vesicant/Irritant Medication New Bag 09/20/2019 12:32 PM EDT 282 mg 182.3 mL/hr palonosetron (ALOXI) injection 0.25 mg 0.25 mg, Intravenous, ONCE, 1 dose, On Fri09/20/19 at 1115, Administer over 30 seconds., Routine Given 09/20/2019 11:22 AM EDT 0.25 mg sodium chloride 0.9 % (flush) flush 20 mL 20 mL, Intravenous, EVERY 1 MIN PRN, Starting on Fri09/20/19 at 0811, Until Fri09/21/19 at 0442, Change Management Consultant, Routine Given 09/20/2019 4:53 PM EDT 20 mLs Given 09/20/2019 8:35 AM EDT 20 mLs documented in this encounter Care Teams Towel Inspector Relationship Specialty Start Date End Date Evelyne Hunt, DIRECTOR OF INDIVIDUAL GIVING [address] [place] [address] PCP - General Internal Medicine 09/23/17 documented as of this encounter
--- OUTSIDE RECORDS SUMMARY | 2023-12-01 02:17 | XMS_ITS | Encounter Summary ---
Author Organization [facility] Address [facility] [place] [address] Care Team Providers Care Customer Solutions Supervisor Name Role Phone Kiki Huntyce Dat STEVEN Primary Care Provider [phone] Reason for Visit * Reason Comments Chemotherapy carbo/taxol/avastin Encounter Details Date Type Department Care Team (Late st Contact Info) Description 10/11/2019 8:30 AM EDT Office Visit [place] [address] Pasquale Mederos MD [facility] [place] [address] Ovarian cancer, unspecified laterality (Primary Dx) Social [...] Sign Reading Time Taken Comments Blood Pressure 155/102 10/11/2019 8:25 AM EDT crying, will retake Pulse 98 10/11/2019 8:25 AM EDT Temperature 36.9 ??C (98.4 ??F) 10/11/2019 8 :25 AM EDT Respiratory Rate 20 10/11/2019 8:25 AM EDT Oxygen Saturation 100% 10/11/2019 8:2 5 AM EDT Inhaled Oxygen Concentration - - Weight 55.6 kg (122 lb 9.2 oz) 10/11/2019 8:25 AM EDT Height 164.4 cm (5' 4.72) 10/11/2019 8 :25 AM EDT Body Mass Index 20.57 10/11/2019 8:25 AM EDT documented in this encounter Progress Notes * Pasquale Mederos MD - 10/11/2019 8:30 AM EDT Division [place] [address] Pre-chemotherapy Visit: Patient Active Problem List Diagnosis Code ??? Hypothyroidism E03.9 ??? SVT (supraventricular tachycardia) I47.1 ??? Bicuspid aortic valve Q23.1 ??? Chest pain R07.9 ??? Nonrheumatic aortic valve stenosis--moderate to severe per 2019 echo (scanned docs) I35.0 ??? HTN (hypertension) I10 ??? Ovarian cancer, lateral, stage IIIb high-grade serous/endometrioid, 07/20/2019 s/p FREDI/BSO/oment/PPALND/RSReanstomosis C56.9 Reason for visit: Gabi Luna is seen today in anticipation of chemotherapy clearance for primary ovarian cancer. 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 07/20/19 TAHBSO/omentectomy/rectosigmoid resection/PPALND. R0. #1 Taxol/carbo/Avastin. Subjective: Gabi Luna comes to the office today before cycle # 3 of Taxol/Carbo/Avastin chemotherapy. She did well with her last cycle aside from a mild Taxol reaction. She is very upset today with worryabout the Benadryl injection that she needed to get with the reaction. This was very scary for her and she was in a dark room by herself and was scared. The benadryl made her feel like she was goingto have a heart attack. Understandably, she has been very nervous over the past several days aboutcoming in today. Today, she is feeling well overall and denies nausea, vomiting, diarrhea, fever, chills, dysuria, shortness of breath, rashes, cough/cold symptoms, mouth sores or sore throat. No numbness/tingling inher hands/feet. Review of Systems Constitutional: Positive for unexpected weight change (lost a few pounds). Respiratory: Negative for cough and shortness of breath. Cardiovascular: Negative. Negative for chest pain. Gastrointestinal: Positive for abdominal pain (sore muscles from tubing). Negative for blood in stool (this has resolved), constipation, diarrhea, nausea and vomiting. Genitourinary: Negative. Negative for dysuria. Skin: Negative. Neurological: Negative for numbness. Psychiatric/Behavioral: The patient is nervous/anxious. All other systems reviewed and are negative. Objective: Vitals: 10/11/19 0825 Weight: 55.6 kg (122 lb 9.2 oz) Height: 164.4 cm (5' 4.72) Body mass index is 20.57 kg/m??. Body surface area is 1.59 meters squared. Physical Exam Constitutional: General: She is not in acute distress. Appearance: She is well-developed. Eyes: General: No scleral icterus. Right eye: No discharge. Left eye: No discharge. Neck: Musculoskeletal: Neck supple. Cardiovascular: Rate and Rhythm: Normal rate and regular rhythm. Heart sounds: Normal heart sounds. No murmur. No friction rub. No gallop. Pulmonary: Effort: Pulmonary effort is normal. No respiratory distress. Breath sounds: Normal breath sounds. No wheezing. Abdominal: General: There is no distension. Palpations: Abdomen is soft. There is no mass. Tenderness: There is no abdominal tenderness. There is no rebound. Comments: Vertical midline incision is healing well. Musculoskeletal: General: No swelling or tenderness. Lymphadenopathy: Cervical: No cervical adenopathy. Upper Body: Right upper body: No supraclavicular adenopathy. Left upper body: No supraclavicular adenopathy. Skin: General: Skin is warm and dry. Coloration: Skin is not pale. Findings: No erythema or rash. Neurological: General: No focal deficit present. Mental Status: She is alert. Coordination: Coordination normal. Gait: Gait normal. Psychiatric: Behavior: Behavior normal. GOG performance status= 0 CTCAE Toxicity grading for the prior cycle: Neutrophils: 0- Normal / not present Hemoglobin: 0- Normal / not present Platelets: [...] ovarian cancer whois here today for cycle 3 of Taxol/carbo/Avastin. History of mild Taxol reaction: We will change Benadryl to oral to see if this improves its tolerability. If Taxol remains problematic may consider switching to Taxotere. No dose-limiting toxicities, will proceed with chemotherapy today as scheduled. RTC three weeks. PASQUALE MEDEROS MD documented in this encounter Plan of Treatment Upcoming Encounters Date Type Department Care Team (Latest Contact Info) Description 12/25/2023 9:[address] [place] [address] Xavier Malhotra MD [facility] [place] [address] 12/29/2023 Hospital Encounter [place] [address] Xavier Malhotra MD [facility] [place] [address] Paroxysmal atrial fibrillation 12/29/2023 7:30 AM EDT - 12/29/2023 12:00 PM EDT Surgery [place] [phone] Xavier Malhotra MD [facility] [place] [address] ELECTROPHYSIOLOGY PROCEDURE 01/14/2024 10:40 AM EDT Office Visit Cardiology at [address] [phone] Carmen Castaneda PA [facility] [place] [address] Scheduled Procedures Name Priority Associated Diagnoses Date/Ti me TRANSESOPHAGEAL ECHO DURING CATH/EP PROCEDURE Paroxysmal atrial fibrillation 12/29/2023 7:30 AM EDT documented as of this encounter Procedures Procedure Name Priority Date/Time Associated Diagnosis Comments POCT URINE DIPSTICK Routine 10/11/2019 8 :41 AM EDT Ovarian cancer, unspecified laterality documented in this encounter Results * POCT urine dipstick (10/11/2019 8:41 AM EDT) POC Protein, UA Negative Negative - Negative mg/dL 10/11/2019 8:41 AM EDT Pasquale Mederos MD POINT OF CARE TEST O RDERABLES documented in this encounter Visit Diagnoses Diagnosis Ovarian cancer, unspecified laterality- Primary Paroxysmal atrial fibrillation Atrial fibrillation Paroxysmal atrial fibrillation Atrial fibrillation documented in this encounter Care Teams Customer Solutions Supervisor Relationship Specialty Start Date End Date Evelyne Hunt APRN [address] [place] [address] PCP - General Internal Medicine 09/23/17 documented as of this encounter
--- OUTSIDE RECORDS SUMMARY | 2023-12-01 02:17 | XMS_ITS | Encounter Summary ---
Author Organization [facility] [place] [address] Care Team Providers Care Toucher Up Name Role Phone Evelyne Hunt Dat STEVEN Primary Care Provider [phone] Encounter Details Date Type Department Care Team (Late st Contact Info) Description 10/08/2019 External Results [place] [address] Natalie Vallejo MD [facility] [place] [address] Social History Tobacco Use Types [...] 9:[address] [place] [phone] Xavier Malhotra MD [facility] [place] [address] 12/29/2023 Hospital Encounter [place] [address] Xavier Malhotra MD [facility] [place] [address] Paroxysmal atrial fibrillation 12/29/2023 7:30 AM EDT - 12/29/2023 12:00 PM EDT Surgery [place] [phone] Xavier Malhotra MD [facility] [place] [address] ELECTROPHYSIOLOGY PROCEDURE 01/14/2024 10:40 AM EDT Office Visit Cardiology at [address] [phone] Carmen Castaneda PA [facility] [place] [address] Scheduled Procedures Name Priority Associated Diagnoses Date/Ti me TRANSESOPHAGEAL ECHO DURING CATH/EP PROCEDURE Paroxysmal atrial fibrillation 12/29/2023 7:30 AM EDT documented as of this encounter Procedures Procedure Name Priority Date/Time Associated Diagnosis Comments EXTERNAL LAB CBC CMP THYROID RESULTS PANEL Routine 10/08/2019 EXTERNAL LAB CBC CMP THYROID RESULTS PANEL Routine 10/07/2019 documented in this encounter Results * CBC / CMP / Thyroid External Results (10/08/2019) Historical Provider EXTERNAL LAB TONJA SUAREZ * CBC / CMP / Thyroid External Results (10/07/2019) White Blood Cell 4.59 Red Blood Cell 3.94 Hemoglobin 13.5 Hematocrit 37.8 Platelet 226 Sodium 135 Potassium 3.7 Chloride 98 Carbon Dioxide 28 Blood Urea Nitrogen 14 Creatinine 0.78 Glucose 103 Calcium 9.2 Protein, Total 7.6 Albumin 4.1 Bilirubin, Total 0.9 Alkaline Phosphatase 76 Aspartate Aminotransferase 19 Alanine Aminotransferase 35 ANC 2.42 CA 125 10 10/07/2019 Natalie Vallejo MD EXTERNAL LAB ORDERAB LES documented in this encounter Visit Diagnoses Not on filedocumented in this encounter Care Teams Toucher Up Relationship Specialty Start Date End Date Evelyne Hunt APRN [address] [place] [address] PCP - General Internal Medicine 09/23/17 documented as of this encounter
--- OUTSIDE RECORDS SUMMARY | 2023-12-01 02:17 | XMS_ITS | Encounter Summary ---
Author Organization [facility] Address [facility] Bert cassdiy [place] [id number] Care Team Providers Care Assistant Front End Manager Name Role Phone Evelyne Hunt APRN Primary Care Provider [phone] Reason for Visit * Reason Comments Genetic Evaluation * Consultation (Routine) - Closed Specialty Diagnoses / Procedures Referred By Marcel edwarsd Referred To Contact Hematology and Oncology Diagnoses genetic counseling ovarian cancer Natalie Vallejo MD [facility] [place] [address] [facility] Hem Onc [address] [place] [address] Referral ID Status Reason Start Date Expiration Date Visits Re quested Visits Authorized [id number] Closed 08/10/2019 08/09/2020 1 1 Encounter Details Date Type Department Care Team (Late st Contact Info) Description 09/20/2019 11:00 AM EDT Office Visit [place] [address] Crystal Navarrete Patricia [facility] HEMATOLOGY/[place] [address] Ovarian cancer, unspecified laterality; Family history of breast cancer; Family history of malignant neoplasm of ovary Social History Tobacco Use Types Packs/Day Years [...] as of this encounter Progress Notes * Crystal Navarrete LGC - 09/20/2019 11:00 AM EDT Gabi Luna was seen by MARLEE Pham in consultation at the request of Natalie Vallejo to advise regarding possible heritable predisposition to cancer. Due to COVID-19 restrictions this was a phone consult. I spent 30 minutes of this telephone encounter with the patient gathering medical and family history and discussing the likelihood of a genetic predisposition to cancer and the option of genetic testing. Reason for referral/Chief complaint Personal history of ovarian cancer and family history of ovarian and breast cancer. Medical history Cancer hx and treatment: Stage IIIB mixed serous and endometrioid ovarian cancer. Had cytoreductivesurgery including FREDI/BSO on 07/20/2019. Currently undergoing chemo. Age at 1st menses: 15 Age at 1st child: 22 Menopause status: post-menopause Oral contraceptive use: used for a short time Hormone replacement therapy use: none Current cancer screening: Annual mammograms. Has had a colonoscopy for GI issues when younger but has not had any routine screening. Sees a genetic counsellor periodically for skin checks Family History of Cancer Problem Relation Age of Onset ??? Ovarian Cancer Maternal Aunt 48 ??? Breast Cancer Maternal Cousin 61 recurrence at 71 ??? Breast Cancer Maternal Cousin 68 daughter had breast cancer in her 30's Maternal ethnic background is Italian. Paternal ethnic background is [place]i. Genetic risk assessment Based on personal history of ovarian cancer, the likelihood that Ivana would be found to have a mutation in a cancer predisposition gene is high enough to offer the option of genetic testing. Paired tumor and germline testing for homologous recombination deficiency and an inherited predisposition toovarian cancer respectively (TumorNext-HRD with CancerNext) at [facility] was discussed. The risks, benefits and limitations of germline and somatic genetic testing were reviewed, specifically a possibility of identifying a variant of uncertain significance. The likelihood that Ivana would be found to have a germline or somatic mutation in one of the ovarian cancer predisposition genes, such as BRCA1 and BRCA2 or mismatch repair genes associated with Taylor syndrome, is high enough to offer the option of germline and somatic genetic testing. If a mutation in BRCA1, BRCA2, or other specific genes is found in either the somatic or germline testing, this may have potential treatment implications. Ivana opted for testing and was consented. Her blood sample was drawn and sent to [facility]. [facility] will coordinate obtaining her tumor sample from [facility]. Insurance pre-authorization and testing will take approximately 6-8 weeks. Ivana will be contacted via telephone once her test results become available. If positive, we will offer a follow-up appointment. At that time, we will discuss with Ivana the implications that this test result may have for her, as well as her family members and answer any questions she may have. documented in this encounter Plan of Treatment Upcoming Encounters Date Type Department Care Team (Latest Contact Info) Description 12/25/2023 9:[address] [place] [address] Xavier Malhotra MD [facility] [place] [address] 12/29/2023 Hospital Encounter [place] [address] Xavier Malhotra MD [facility] [place] [place] [address] Paroxysmal atrial fibrillation 12/29/2023 7:30 AM EDT - 12/29/2023 12:00 PM EDT Surgery [place] [address] Xavier Malhotra MD [facility] [place] [place] [address] ELECTROPHYSIOLOGY PROCEDURE 01/14/2024 10:40 AM EDT Office Visit Cardiology at [address] [address] Carmen Castaneda PA [facility] [place] [address] Scheduled Procedures Name Priority Associated Diagnoses Date/Ti me TRANSESOPHAGEAL ECHO DURING CATH/EP PROCEDURE Paroxysmal atrial fibrillation 12/29/2023 7:30 AM EDT documented as of this encounter Visit Diagnoses Diagnosis Ovarian cancer, unspecified laterality Family history of breast cancer Family history of malignant neoplasm of breast Family history of malignant neoplasm of ovary Paroxysmal atrial fibrillation Atrial fibrillation Paroxysmal atrial fibrillation Atrial fibrillation documented in this encounter Care Teams Assistant Front End Manager Relationship Specialty Start Date End Date Evelyne Hunt, TENISHA [address] [place] [address] PCP - General Internal Medicine 09/23/17 documented as of this encounter
--- OUTSIDE RECORDS SUMMARY | 2023-12-01 02:17 | XMS_ITS | Encounter Summary ---
Author Organization [facility] [place] [address] Care Team Providers Care Clinical Allergist Name Role Phone Kiki Huntyce Dat STEVEN Primary Care Provider [phone] Reason for Visit * Reason Onset Date Comments Results 10/11/2019 Encounter Details Date Type Department Care Team (Late st Contact Info) Description 10/11/2019 Telephone Hematology [place] [address] Crystal Navarrete [facility] HEMATOLOGY/[place] [address] Results Social History Tobacco Use Types Packs/Day [...] Notes * Telephone Encounter - Crystal Navarrete [facility] - 10/18/2019 11:12 AM EDT This test result was discussed with the patient by phone. A summary of these results is provided below. A copy of the lab report has been scanned in the medical record and provided to the patient. Please be advised that [place] law requires that all health care workers respect the confidentiality of this information and not pass it along to other health care providers, insurance companies, or individuals without the written permission of the patient. The [facility]amil[facility] Cancer Program welcomes any questions about these matters. Our phone number is: [phone]. On 09/20/2019, Ivana underwent genetic testing for a hereditary predisposition to ovarian cancer and homologous recombination deficiency in her tumor with [facility] TumorNext-HRD with CancerNext. Following are the results of this test. Result: The CancerNext analysis of Ivana's blood showed [...] PALB2, RAD51C, RAD51D, BRCA1, BRCA2 (sequencing only). Interpretation: Since mutations were not found in either the germline or tumor testing, we can not determine the cause of Ivana's ovarian cancer. Possible explanations for this negative test result include: ?? Ivana's cancer and the cancer in her family may be due to non genetic, environmental causes. ?? There could be a mutation in Ivana's family that Ivana did not inherit. It is possible that Ivana'saunt who had ovarian cancer at age 48 and/or this aunt's granddaughter who had breast cancer at age35 could have a mutation. We would recommend that Ivana's cousin consider genetic testing if this has not already been done. ?? There could be mutations in other cancer genes not included in this test, or in genes yet to be discovered. ?? There is a very small chance that a pathogenic variant/mutation could be missed due to limitations in the testing. Additional genetic testing for Ivana is not recommended at this time. Treatment with PARP inhibitors has not been approved by the FDA for women who have not been found to have mutations. Screening Recommendations Based on genetic test results and personal and/or family history, we recommend: Breast cancer screening ?? Be aware of any breast changes and share concerns with primary care provider. ?? Annual clinical breast exams ?? Annual mammograms Ovarian cancer risk management for Ivana's daughter Ovarian cancer (and related serous cancers of the fallopian tube and peritoneum) are very difficultto detect early due to a lack of symptoms. Additionally, there are no reliable means to screen women to detect these cancers early, when there is a good chance for a cure. For this reason, surgical removal of the at-risk organs is an option for those with a 1st degree relative (mother, sister, or da ughter) with ovarian cancer and a lifetime risk of 4-5%. This is outlined below: ??? Risk reducing surgery to remove ones ovaries and fallopian tubes, a bilateral salpingo-oophorectomy, is an option between the age of 35-40 or after childbearing is complete, as it has been shown to reduce the risk of ovarian and fallopian tube cancer. ??? Short term use of hormone replacement therapy for treatment of surgical menopause after an oophorectomy is an option for those with no personal history of breast cancer. ??? CA125 blood test every 6 months after prophylactic oophorectomy because of a risk of an ovarian-like cancer (called primary peritoneal cancer). ??? Those who have not completed childbearing or who are not good surgical candidates, may considertwice yearly transvaginal ultrasounds and a blood test called CA125, in addition to pelvic exams with their station repairer. This should start at age 35 or 5-10 years earlier than the earliest age of ovarian cancer in the family. It is important to note that the effectiveness of these modalities for screening for ovarian cancer has not been established and patients should not be falsely reassured bynegative screening test results. ??? Young women in need of contraception should consider taking an oral contraceptive, as it has been shown to reduce the incidence of ovarian cancer in women at risk. Colon cancer screening ?? Baseline colorectal cancer screening starting at age 50 is recommended for all individuals. Huould discuss her screening options with her primary home care companion. Other cancer screening ?? Periodic skin checks as recommended by Ivana's steel post installer documented in this encounter Plan of Treatment Upcoming Encounters Date Type Department Care Team (Latest Contact Info) Description 12/25/2023 9:[address] Scan at [place] [phone] Xavier Malhotra MD [facility] [place] [address] 12/29/2023 Hospital Encounter Electrophysiology Lab at [place] [address] Xavier Malhotra MD [facility] [place] [address] Paroxysmal atrial fibrillation 12/29/2023 7:30 AM EDT - 12/29/2023 12:00 PM EDT Surgery Electrophysiology Lab at [place] [address] Xavier Malhotra MD [facility] [place] [address] ELECTROPHYSIOLOGY PROCEDURE 01/14/2024 10:40 AM EDT Office Visit Cardiology at [place] [address] Carmen Castaneda PA [facility] [place] [address] Scheduled Procedures Name Priority Associated Diagnoses Date/Ti me TRANSESOPHAGEAL ECHO DURING CATH/EP PROCEDURE Paroxysmal atrial fibrillation 12/29/2023 7:30 AM EDT documented as of this encounter Visit Diagnoses Not on filedocumented in this encounter Care Teams Clinical Allergist Relationship Specialty Start Date End Date Evelyne Hunt APRN [address] [place] [address] PCP - General Internal Medicine 09/23/17 documented as of this encounter
--- OUTSIDE RECORDS SUMMARY | 2023-12-01 02:17 | XMS_ITS | Encounter Summary ---
Author Organization [facility] [place] [address] Care Team Providers Care Assessment Services Manager Name Role Phone Evelyne Hunt Dat STEVEN Primary Care Provider [phone] Encounter Details Date Type Department Care Team (Late st Contact Info) Description 09/17/2019 External Results [place] [address] [facility] [place] [address] Social History Tobacco Use Types [...] 9:[address] [place] [address] [facility] [place] [address] 12/29/2023 Hospital Encounter [place] [address] [facility] [place] [address] Paroxysmal atrial fibrillation 12/29/2023 7:30 AM EDT - 12/29/2023 12:00 PM EDT Surgery [place] [address] [facility] [place] [address] ELECTROPHYSIOLOGY PROCEDURE 01/14/2024 10:40 AM EDT Office Visit Cardiology at [address] [phone] [facility] CARDIOLOGY [place], [place] [phone] Scheduled Procedures Name Priority Associated Diagnoses Date/Ti me TRANSESOPHAGEAL ECHO DURING CATH/EP PROCEDURE Paroxysmal atrial fibrillation 12/29/2023 7:30 AM EDT documented as of this encounter Procedures Procedure Name Priority Date/Time Associated Diagnosis Comments EXTERNAL LAB CBC CMP THYROID RESULTS PANEL Routine 09/14/2019 EXTERNAL LAB CBC CMP THYROID RESULTS PANEL Routine 09/14/2019 documented in this encounter Results * CBC / CMP / Thyroid External Results (09/14/2019) Natalie Vallejo MD EXTERNAL LAB ORDERAB LES * CBC / CMP / Thyroid External Results (09/14/2019) White Blood Cell 3.72 Red Blood Cell 4.19 Hemoglobin 14.0 Hematocrit 39.0 Platelet 273 Sodium 136 Potassium 3.5 Chloride 99 Carbon Dioxide 27 Blood Urea Nitrogen 15 Creatinine 0.64 Glucose 98 Calcium 9.5 Protein, Total 7.2 Albumin 4.1 Bilirubin, Total 0.8 Alkaline Phosphatase 84 Aspartate Aminotransferase 19 Alanine Aminotransferase 35 ANC 1.16 CA 125 12 09/14/2019 Natalie Vallejo MD EXTERNAL LAB ORDERAB LES documented in this encounter Visit Diagnoses Not on filedocumented in this encounter Care Teams Assessment Services Manager Relationship Specialty Start Date End Date Evelyne Hunt APRN [address] [place] [address] PCP - General Internal Medicine 09/23/17 documented as of this encounter
--- OUTSIDE RECORDS SUMMARY | 2023-12-01 02:17 | XMS_ITS | Encounter Summary ---
Author Organization [facility] [place] [address] Care Team Providers Care Java Sybase Developer Name Role Phone Evelyne Hunt Dat STEVEN Primary Care Provider [phone] Encounter Details Date Type Department Care Team (Late st Contact Info) Description 10/20/2019 External Results Hematology and Oncology at [place] [phone] Mary Mclain, RN Social History Tobacco Use [...] 9:[address] [place] [address] Xavier Malhotra MD [facility] [place] [address] 12/29/2023 Hospital Encounter Electrophysiology Lab at [place] [phone] Xavier Malhotra MD [facility] [address] [place] [phone] Paroxysmal atrial fibrillation 12/29/2023 7:30 AM EDT - 12/29/2023 12:00 PM EDT Surgery [place] [phone] Xavier Malhotra MD [facility] [place] [address] ELECTROPHYSIOLOGY PROCEDURE 01/14/2024 10:40 AM EDT Office Visit Cardiology at [address] [phone] Carmen Castaneda PA [facility] CARDIOLOGY [place], [place] [phone] Scheduled Procedures Name Priority Associated Diagnoses Date/Ti me TRANSESOPHAGEAL ECHO DURING CATH/EP PROCEDURE Paroxysmal atrial fibrillation 12/29/2023 7:30 AM EDT documented as of this encounter Procedures Procedure Name Priority Date/Time Associated Diagnosis Comments CBC (WITH DIFF) Routine 10/18/2019 CBC (WITH DIFF) Routine 10/18/2019 documented in this encounter Results * CBC (with Diff) (10/18/2019) Blood specimen (specimen) Historical Provider HEMATOLOGY ORDERA BLES * (ABNORMAL) CBC (with Diff) (10/18/2019) White Blood Cell 4.53 Hemoglobin 12.8 Hematocrit 35.4(L) Platelet 166 Neutrophil % 62.5 ANC 2,830 Blood specimen (specimen) 10/18/2019 Natalie Vallejo MD HEMATOLOGY ORDERABLE S documented in this encounter Visit Diagnoses Not on filedocumented in this encounter Care Teams Java Sybase Developer Relationship Specialty Start Date End Date Evelyne Hunt APRN [address] [place] [address] PCP - General Internal Medicine 09/23/17 documented as of this encounter
--- OUTSIDE RECORDS SUMMARY | 2023-12-01 02:17 | XMS_ITS | Encounter Summary ---
[place] [address] Care Team Providers Care Shift Commander Name Role Phone Evelyne Hunt Dat STEVEN Primary Care Provider [phone] Reason for Visit * Reason Onset Date Comments Questions 09/17/2019 Encounter Details Date Type Department Care Team (Late st Contact Info) Description 09/17/2019 Telephone [place] [phone] Jaqueline Doran RN Questions Social History Tobacco Use Types Packs/Day Years [...] Telephone Encounter - Jaqueline Doran RN - 09/17/2019 9:52 AM EDT Patient called asking where to go first for her appointment on Friday. Instructed to check in at [address] Vallejo for 830 then 10 am for infusion. Patient understood instructions. documented in this encounter Plan of Treatment Upcoming Encounters Date Type Department Care Team (Latest Contact Info) Description 12/25/2023 9:[address] [place] [address] Xavier Malhotra MD [facility] [place] [place] [address] 12/29/2023 Hospital Encounter Electrophysiology Lab at [place] [address] Xavier Malhotra MD [facility] [place] [place] [address] Paroxysmal atrial fibrillation 12/29/2023 7:30 AM EDT - 12/29/2023 12:00 PM EDT Surgery Electrophysiology Lab at [place] [address] Xavier Malhotra MD [facility] [place] [place] [address] ELECTROPHYSIOLOGY PROCEDURE 01/14/2024 10:40 AM EDT Office Visit Cardiology at [place] [address] Carmen Castaneda PA [facility] [place] [address] Scheduled Procedures Name Priority Associated Diagnoses Date/Ti me TRANSESOPHAGEAL ECHO DURING CATH/EP PROCEDURE Paroxysmal atrial fibrillation 12/29/2023 7:30 AM EDT documented as of this encounter Visit Diagnoses Not on filedocumented in this encounter Care Teams Shift Commander Relationship Specialty Start Date End Date Evelyne Hunt APRN [address] [place] [address] PCP - General Internal Medicine 09/23/17 documented as of this encounter
--- OUTSIDE RECORDS SUMMARY | 2023-12-01 02:17 | XMS_ITS | Encounter Summary ---
[place] [address] Care Team Providers Care Compensation Associate Name Role Phone Kiki Huntyce Dat STEVEN Primary Care Provider [phone] Reason for Visit * Reason Onset Date Comments Results 10/29/2019 Encounter Details Date Type Department Care Team (Late st Contact Info) Description 10/29/2019 Telephone [place] [phone] Jaqueline Doran RN Results Social History Tobacco [...] Telephone Encounter - Jaqueline Doran RN - 10/29/2019 10:38 AM EDT Called to inform about lab results drawn 10/28/19. Hgb 13.0, plt 323, ANC 1730, Ca 125 pending. Covidtest Negative. Patient felt relieved they were all Ok for chemo on Friday. documented in this encounter Plan of Treatment Upcoming Encounters Date Type Department Care Team (Latest Contact Info) Description 12/25/2023 9:[address] [place] [address] Xavier Malhotra MD [facility] [place] [address] 12/29/2023 Hospital Encounter Electrophysiology Lab at [place] [address] Xavier Malhotra MD [facility] [address] [place] [address] Paroxysmal atrial fibrillation 12/29/2023 7:30 AM EDT - 12/29/2023 12:00 PM EDT Surgery [place] [address] Xavier Malhotra MD [facility] [place] [address] ELECTROPHYSIOLOGY PROCEDURE 01/14/2024 10:40 AM EDT Office Visit Cardiology at [place] [phone] Carmen Castaneda PA [facility] [place] [address] Scheduled Procedures Name Priority Associated Diagnoses Date/Ti me TRANSESOPHAGEAL ECHO DURING CATH/EP PROCEDURE Paroxysmal atrial fibrillation 12/29/2023 7:30 AM EDT documented as of this encounter Visit Diagnoses Not on filedocumented in this encounter Care Teams Compensation Associate Relationship Specialty Start Date End Date Evelyne Hunt APRN [address] [place], [place] [address] [place] [address] PCP - General Internal Medicine 09/23/17 documented as of this encounter
--- OUTSIDE RECORDS SUMMARY | 2023-12-01 02:17 | XMS_ITS | Encounter Summary ---
[place] [address] Care Team Providers Care Poultry Offal Icer Name Role Phone Kiki Huntyce Dat STEVEN Primary Care Provider [phone] Reason for Visit * Reason Onset Date Comments Results 10/26/2019 Encounter Details Date Type Department Care Team (Late st Contact Info) Description 10/26/2019 Telephone Gynecology [place] [phone] Jaqueline Doarn RN Results Social History Tobacco Use Types [...] Telephone Encounter - Jaqueline Doran RN - 10/26/2019 9:40 AM EDT Patient calling about CBC results. Everything looks fine except for ANC 1000. Reviewed neutropenic precautions. Patient stated understanding of this. Also stated that she wants to be tested for Covidfor her peace of mind. documented in this encounter Plan of Treatment Upcoming Encounters Date Type Department Care Team (Latest Contact Info) Description 12/25/2023 9:[address] [place] [address] Xavier Malhotra MD [facility] [place] [address] 12/29/2023 Hospital Encounter Electrophysiology Lab at [place] [address] Xavier Malhotra MD [facility] [place] [address] Paroxysmal atrial fibrillation 12/29/2023 7:30 AM EDT - 12/29/2023 12:00 PM EDT Surgery Electrophysiology Lab at [place] [address] Xavier Malhotra MD [facility] [place] [address] ELECTROPHYSIOLOGY PROCEDURE 01/14/2024 10:40 AM EDT Office Visit Cardiology at [place] [address] Carmen Castaneda PA [facility] [place] [address] Scheduled Procedures Name Priority Associated Diagnoses Date/Ti me TRANSESOPHAGEAL ECHO DURING CATH/EP PROCEDURE Paroxysmal atrial fibrillation 12/29/2023 7:30 AM EDT documented as of this encounter Visit Diagnoses Not on filedocumented in this encounter Care Teams Poultry Offal Icer Relationship Specialty Start Date End Date Evelyne Hunt APRN [address] [facility] [place] [address] PCP - General Internal Medicine 09/23/17 documented as of this encounter
--- OUTSIDE RECORDS SUMMARY | 2023-12-01 02:17 | XMS_ITS | Encounter Summary ---
Author Organization [facility] Address [facility] [place] [address] Care Team Providers Care Manganese Wheeler Name Role Phone Kiki Huntyce Dat STEVEN Primary Care Provider [phone] Encounter Details Date Type Department Care Team (Late st Contact Info) Description 09/13/2019 Telephone Gy[place] [phone] Gabriela Singh MD [facility] [place] [address] Social History Tobacco Use Types Packs/Day Years [...] encounter Miscellaneous Notes * Telephone Encounter - Gabriela Singh MD - 09/13/2019 10:43 PM EDT Gabi called concerned that she was not able to get her radha labs due to a scheduling issue. She was feeling well at the time and I reassured her it was OK to wait until labs were open on 09/13 to get her labs drawn. She then called 09/12 reporting small volume bright red blood in her stool. She felt well otherwise and it was not happening with every bowel movement. We discussed that this was likely due to a hemorrhoid, but to call back if the bleeding increased. She will still plan for labs 09/13. documented in this encounter Plan of Treatment Upcoming Encounters Date Type Department Care Team (Latest Contact Info) Description 12/25/2023 9:[address] Scan at [place] [phone] Xavier Malhotra MD [facility] [place] [address] 12/29/2023 Hospital Encounter [place] [address] Xavier Malhotra MD [facility] [place] [address] Paroxysmal atrial fibrillation 12/29/2023 7:30 AM EDT - 12/29/2023 12:00 PM EDT Surgery Electrophysiology Lab at [place] [address] Xavier Malhotra MD [facility] [place] [address] ELECTROPHYSIOLOGY PROCEDURE 01/14/2024 10:40 AM EDT Office Visit Cardiology at [address] Carmen Castaneda PA [facility] [place] [address] Scheduled Procedures Name Priority Associated Diagnoses Date/Ti me TRANSESOPHAGEAL ECHO DURING CATH/EP PROCEDURE Paroxysmal atrial fibrillation 12/29/2023 7:30 AM EDT documented as of this encounter Visit Diagnoses Not on filedocumented in this encounter Care Teams Manganese Wheeler Relationship Specialty Start Date End Date Evelyne Hunt APRN [address] [place] [address] PCP - General Internal Medicine 09/23/17 documented as of this encounter
--- OUTSIDE RECORDS SUMMARY | 2023-12-01 02:17 | XMS_ITS | Encounter Summary ---
[place] [address] Care Team Providers Care Director Of Strategy & Mobile Name Role Phone MarileeEvelyne APRN Primary Care Provider [phone] Reason for Visit * Reason Onset Date Comments Results 11/08/2019 Encounter Details Date Type Department Care Team (Late st Contact Info) Description 11/08/2019 Telephone [place]ematology [place] [phone] Mary Mclain, RN Results Social History Tobacco [...] Telephone Encounter - Mary Mclain RN - 11/08/2019 3:05 PM EDT Relayed following results to pt Recent Results (from the past 72 hour(s)) CBC (with Diff) Result Value Ref Range WBC 4.24 (EXTERNAL/ABN) Hemoglobin 11.7 (EXTERNAL/ABN) Hematocrit 32.6 (EXTERNAL/ABN) Platelets 179 Neutrophils % 66.7 Neutr Abs (ANC) 2,830 documented in this encounter Plan of Treatment Upcoming Encounters Date Type Department Care Team (Latest Contact Info) Description 12/25/2023 9:[address] [place] [address] Xavier Malhotra MD [facility] [place] [address] 12/29/2023 Hospital Encounter Electrophysiology Lab at [address] Xavier Malhotra MD [facility] [place] [address] Paroxysmal atrial fibrillation 12/29/2023 7:30 AM EDT - 12/29/2023 12:00 PM EDT Surgery [place] [address] Xavier Malhotra MD [facility] [place] [address] ELECTROPHYSIOLOGY PROCEDURE 01/14/2024 10:40 AM EDT Office Visit Cardiology at [place] [phone] Carmen Castaneda PA [facility] [address] Scheduled Procedures Name Priority Associated Diagnoses Date/Ti me TRANSESOPHAGEAL ECHO DURING CATH/EP PROCEDURE Paroxysmal atrial fibrillation 12/29/2023 7:30 AM EDT documented as of this encounter Visit Diagnoses Not on filedocumented in this encounter Care Teams Director Of Strategy & Mobile Relationship Specialty Start Date End Date Evelyne Hunt APRN [address] [place] [address] PCP - General Internal Medicine 09/23/17 documented as of this encounter
--- OUTSIDE RECORDS SUMMARY | 2023-12-01 02:17 | XMS_ITS | Encounter Summary ---
Author Organization [facility] [place] [address] Care Team Providers Care Flask Fitter Name Role Phone Evelyne Hunt Dat STEVEN Primary Care Provider [phone] Reason for Visit * Reason Onset Date Comments Questions 09/30/2019 Encounter Details Date Type Department Care Team (Late st Contact Info) Description 09/30/2019 Telephone [place] [phone] Jaqueline Doran RN Questions Social History Tobacco [...] Telephone Encounter - Jaqueline Doran RN - 09/30/2019 4:56 PM EDT Patient called asking if she can eat lobster that her brought her. Informed that it's fine. documented in this encounter Plan of Treatment Upcoming Encounters Date Type Department Care Team (Latest Contact Info) Description 12/25/2023 9:[address] [place] [phone] Xavier Malhotra MD [facility] [place] [address] 12/29/2023 Hospital Encounter Electrophysiology Lab at [place] [address] Xavier Malhotra MD [facility] [place] [place] [address] Paroxysmal atrial fibrillation 12/29/2023 7:30 AM EDT - 12/29/2023 12:00 PM EDT Surgery Electrophysiology Lab at [place] [address] Xavier Malhotra MD [facility] [place] [address] ELECTROPHYSIOLOGY PROCEDURE 01/14/2024 10:40 AM EDT Office Visit Cardiology at [place] [address] Carmen Castaneda PA [facility] [place] [address] Scheduled Procedures Name Priority Associated Diagnoses Date/Ti me TRANSESOPHAGEAL ECHO DURING CATH/EP PROCEDURE Paroxysmal atrial fibrillation 12/29/2023 7:30 AM EDT documented as of this encounter Visit Diagnoses Not on filedocumented in this encounter Care Teams Flask Fitter Relationship Specialty Start Date End Date Evelyne Hunt APRN [address] [place] [address] PCP - General Internal Medicine 09/23/17 documented as of this encounter
--- OUTSIDE RECORDS SUMMARY | 2023-12-01 02:17 | XMS_ITS | Encounter Summary ---
Author Organization [facility] Address [facility] [place] [address] Care Team Providers Care Tree Worker Name Role Phone MarileeEvelyne APRN Primary Care Provider [phone] Reason for Visit * Reason Comments Chemotherapy Encounter Details Date Type Department Care Team (Late st Contact Info) Description 09/20/2019 8:30 AM EDT Office Visit Gy[place] [address] Natalie Vallejo MD [facility] [place] [address] Ovarian cancer, lateral, stage IIIb high-grade serous/endometrioid, 07/20/2019 s/p FREDI/BSO/oment/PPALND/ RSReanstomosis Social History Tobacco Use Types Packs/Day Years [...] Sign Reading Time Taken Comments Blood Pressure 155/93 09/20/2019 8:40 AM EDT Pulse 103 09/20/2019 8:40 AM EDT Temperature 36.3 ??C (97.3 ??F) 09/20/2019 8:40 AM ED T Respiratory Rate - - Oxygen Saturation 99% 09/20/2019 8:40 AM EDT Inhaled Oxygen Concentration - - Weight 56.9 kg (125 lb 7.1 oz) 09/20/2019 8:40 A M EDT Height 164.4 cm (5' 4.72) 09/20/2019 8:40 AM ED T Body Mass Index 21.05 09/20/2019 8:40 AM EDT documented in this encounter Progress Notes * Janelle Daugherty MD - 09/20/2019 8:30 AM EDT Division [place] [address] Pre-Chemo Visit: Patient Active Problem List Diagnosis Code ??? Hypothyroidism E03.9 ??? SVT (supraventricular tachycardia) I47.1 ??? Bicuspid aortic valve Q23.1 ??? Chest pain R07.9 ??? Nonrheumatic aortic valve stenosis--moderate to severe per 2019 echo (scanned docs) I35.0 ??? HTN (hypertension) I10 ??? Ovarian cancer, lateral, stage IIIb high-grade serous/endometrioid, 07/20/2019 s/p FREDI/BSO/oment/PPALND/RSReanstomosis C56.9 Subjective: Gabi Luna returns to the office today for a pre-chemo visit. On 07/20/19 she underwent a ovarian cancer cytoreductive surgery including TAHBSO/omentectomy/rectosigmoid resection/PPALND. Her postoperative course was uncomplicated. She received Cycle 1 Day 1 Carbo/Taxol/Avastin on 08/30/19 and t olerated it well without significant side effects - did not have any nausea/vomiting, tingling or numbness. She had some mid-abdominal pain after chemo requiring pain meds, which has resolved. She has noticed new blood in her stool starting a week ago. She had intermittent constipation/diarrhea preceding the new onset blood. Bright red blood coats the outside of the stool, unclear if mixed in. She has roughly 2 BMs per day, now well formed. Diarrhea/constipation resolved, and she denies any rectal pain. She has intermittent LLQ discomfort. No hx of blood in the stool or hemorrhoids. She denies fevers, chills, cough, SOB, CP, abdominal pain, N/V, or any urinary changes. She denies any abnormal vaginal bleeding. Denies any surgical incision pain. She is incredibly nervous about cancer treatment in general. She is very worried about low blood counts and worried about any prospect of missing cancer treatment. She has many questions about chemo in general, all of which were answered. She has a friend who is a 17yr ovarian cancer survivor who has been very helpful for emotional reassurance along the way. Medications: Current Outpatient Medications on File Prior to Visit Medication Sig Dispense Refill ??? prochlorperazine (Compazine) [...] 1,000 mg by mouth daily. ??? HYDROcodone-acetaminophen ([place]) 5-325 mg Tablet Take 1-2 tablets by [...] 60 tablet 3 No current facility-administered medications on file prior to visit. Objective: Vitals: 09/20/19 0840 BP: (!) 155/93 BP Location (NBP): Left arm Patient Position: Sitting Pulse: (!) 103 Temp: 36.3 ??C (97.3 ??F) TempSrc: Temporal SpO2: 99% Weight: 56.9 kg (125 lb 7.1 oz) Height: 164.4 cm (5' 4.72) Body mass index is 21.05 kg/m??. Body surface area is 1.61 meters squared. Physical Exam Gen: WD/WN F, A&C in NAD - mild anxious distress Skin: warm and dry, no suspect rashes. Abdominal incision well healed. HEENT: Conjunctiva clear, sclera anicteric, MMM, OP clear w/out lesions/ulcers Neck: Supple Lymph: no palpable cervical, supraclavicular adenopathy. Chest: R. Chest port site well healed. Lungs CTA Bilat, no wheezes, rales Cardiac: RRR, III/ systolic murmur best heard at RUSB Abdomen: Soft, Non-distended. Mid-abdominal incision well healed. normoactive BS, Mild tenderness to deep palpation in LLQ, no rebound or guarding Extremities: WWP w/out cyanosis or edema Neuro: No gross deficits Psych: very nervous - many questions Labs: Recent Results (from the past 72 hour(s)) POCT urine dipstick Result Value Ref Range POC Protein, UA trace Negative - Negative mg/dL Hemogram Result Value Ref Range WBC 10.3 (H) 4.0 - 9.5 x10(3)/mcL RBC 4.37 4.00 - 5.21 x10(6)/mcL Hemoglobin 14.3 11.7 - 15.5 gm/dL Hematocrit 41.0 35.7 - 45.8 % MCV 93.8 82.6 - 94.4 fL MCH 32.7 (H) 27.1 - 32.0 pg MCHC 34.9 31.7 - 35.0 gm/dL Platelets 268 145 - 357 x10(3)/mcL RDWSD 44.3 37.0 - 46.0 fL RDWCV 12.9 11.5 - 14.1 % MPV 9.0 7.6 - 12.9 fL nRBC % Auto 0.0 % nRBC Abs Auto 0.000 0.000 - 0.000 x10(3)/mcL Differential, Automated Result Value Ref Range Neutrophils % 77.6 % Neutr Abs (ANC) 7.98 (H) 1.70 - 6.10 x10(3)/mcL Lymphocytes % 12.6 % Lymphocytes Abs 1.3 0.9 - 3.2 x10(3)/mcL Monocytes % 7.6 % Monocyte Abs 0.8 0.3 - 0.9 x10(3)/mcL Eosinophils % 1.1 % Eosinophils Abs 0.1 0.0 - 0.4 x10(3)/mcL Basophils % 0.7 % Basophils Abs 0.1 0.0 - 0.1 x10(3)/mcL Immature Gran % 0.40 % Mercedes Gran Abs 0.04 0.00 - 0.04 x10(3)/mcL CA 125 Trend: 07/12/19 - 350.0 (pre-surgically) 08/25/19 - 09/14/19 - Imaging: - No interval imaging Surgical Pathology: ? DIAGNOSIS A - Left fallopian tube and ovary, salpingo-oophorectomy: ?? - High-grade ovarian carcinoma, mixed high-grade serous ? and FIGO grade 3 endometrioid type involving ovary, ? ovarian surface, and fallopian tube surface (see ? Synoptic Report and Discussion) B - Uterus, cervix, right fallopian tube and ovary and anterior-posterior ? pelvic peritoneum, hysterectomy and salpingo-oophorectomy: ?? - High-grade serous carcinoma involving the ovary, ovarian surface, ? fallopian tube, fallopian tube surface, uterine serosa, and pelvic ? peritoneum (see Synoptic Report and Discussion) ?? - Serous tubal intraepithelial carcinoma (STIC), fallopian tube ?? - Benign cervix ?? - Benign inactive endometrium ?? - Uterine leiomyoma C - Anterior pelvic peritoneum, excision: ?? - High-grade ovarian carcinoma D - Tumor on the surface of the rectosigmoid colon below pelvic ? rim, excision: ?? - High-grade ovarian carcinoma E - Left pelvic lymph nodes, excision: ?? - Nine lymph nodes, negative for malignancy (0/9) F - Right pelvic lymph nodes, excision: ?? - Twenty-one lymph nodes, negative for malignancy (0/21) G - Omentum, excision: ?? - Metastatic high-grade ovarian carcinoma ?? - One lymph node, negative for malignancy (0/1) H - Lazara-aortic lymph nodes, excision: ?? - One lymph node, negative for malignancy (0/1) I - Left para colic gutter biopsy: ?? - Cauterized fibrous connective tissue, negative for malignancy J - Right para colic gutter biopsy: ?? - Cauterized fibrous connective tissue, negative for malignancy K - Rectosigmoid resection: ?? - Metastatic high-grade ovarian carcinoma within mesenteric ? adipose tissue ?? - Metastatic carcinoma in one of seven mesenteric lymph nodes (1/7) L - Mucosal sigmoid rectal donuts, excision: ?? - Negative for malignancy SYNOPTIC REPORT Tumor DIAGNOSIS ?Tumor Site: ??Bilateral tubo-ovarian ?Histologic Type: ?? Mixed epithelial carcinoma (types and percentages) - Left ? tube and ovary = high-grade serous carcinoma (50%) and high- grade/ FIGO ? 3 endometrioid carcinoma (50%). Right tube and ovary = high-grade serous ? carcinoma (100%) ?Histologic Grade: ?? High grade ?Tumor Size: ?? 5.2 cm ?Laterality: ?? Right ?Ovarian Surface Involvement: ?? Present ? Laterality: ??bilateral ?Fallopian Tube Surface Involvement: ?Present ? Laterality: ??bilateral ?Other Tissue / Organ Involvement: ?Uterus; ??Pelvic peritoneum; ??Abdominal ? peritoneum; ??Omentum ?Largest Extrapelvic Peritoneal Focus: ?Macroscopic (2 cm or less) ? Site: ??Rectosigmoid mesentery ?Peritoneal Ascitic Fluid: ?? Results pending Lymph Nodes ?Number of Nodes with Metastasis Greater than 10 mm: ? 0 ?Number of Nodes with Metastasis 10 mm or Less (excludes isolated tumor ? cells): ??1 ?Number of Nodes with Isolated Tumor Cells (ITCs): ? 0 ?Toni Site(s) with Tumor Cells: ?Mesenteric lymph node ?Size of Largest Metastatic Deposit (Millimeters): ? 2 mm ?Number of Lymph Nodes Examined: ?39 Pathologic Stage Classification (pTNM, AJCC 8th Edition) ?Primary Tumor (pT): ?? pT3b ?Regional Lymph Nodes (pN): ?? pN1a FIGO Stage ?FIGO Stage: ??IIIB Additional Findings ?Additional Pathologic Findings: ?? Serous tubal intraepithelial carcinoma Assessment and Plan: Gabi Luna is a 58 y.o. 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 She underwent cytoreductive surgery including TAHBSO/omentectomy/rectosigmoid resection/PPALND on 07/20/19 and recovered well post-operatively. CA 125 has normalized beautifully. She presents today in anticipation of her next cycle of chemotherapy. She received cycle 1 Carboplatin/Paclitaxel and Bevacizumab on 08/30/19 and tolerated treatment well aside for some constipation and new blood surrounding her stool for the last week. Bowels are now regular, with decreased bleeding. Suspect small amount of blood is likely d/t hemorrhoids related to the constipation - no evidenceof infection or significant bleeding in the stool or abdominal pain to suggest problem with her anastamosis (should be well healed by now). Recommended a regular bowel regimen and will monitor for now. Labs reviewed and stable for treatment today. Proceed with cycle 2 Carbo/Taxol/Avastin. She had many questions about chemotherapy and side effects, all of which were answered. Plan: # Stage IIIB Ovarian Cancer - Proceed with Cycle 2 Carbo/Taxol/Avastin - Plan for chemo q21 days for 6 cycles - will consider maintenance w/ PARP inhibitor pending mutational testing - scheduled to meet with Genetic Counselor today - previously discussed prognosis and I reviewed with her the statistics surrounding stage IIIb disease with a 41.5% 5-year survival, with the limitations in applying population statistics to a singleindividual and have noted that we are making strides in treatment of this disease through our nation al research efforts. # Constipation + Hematochezia - likely d/t antiemetic induced constipation and subsequent hemorrhoids - recommend mirilax nightly and senna/docusate prn for constipation to remain regular - she will call if bleeding worsens or fails to improve -However, given her bowel resection and reanastomosis, she is at risk for bleeding from this area as well and strong precautions surrounding anastomotic leak were reviewed with the patient and she verbalized understanding. # Anxiety - admits to baseline anxiety, worsened by her cancer diagnosis and anxiety about treatment - counseled on the importance of healthy coping strategies - additional support services available as needed (can consider referral to Counseling vs.referral to palliative care prn) # Follow up - RTC in 2 weeks with labs, clinic in 3 weeks for next cycle of chemo - she knows to call with any questions/concerns in the interim This patient was evaluated with Dr. White who agrees with the plan as above. Janelle Daugherty MD Hematology/Oncology Fellow Pager #[phone] 09/20/19 I have seen and examined the patient and reviewed and edited the resident's above history and I agree with the details as written. The assessment and plan were formulated in discussion with me and I agree with them as documented. Natalie Vallejo MD documented in this encounter Plan of Treatment Upcoming Encounters Date Type Department Care Team (Latest Contact Info) Description 12/25/2023 9:[address] Scan at [place] [phone] Xavier Malhotra MD [facility] [place] [address] 12/29/2023 Hospital Encounter Electrophysiology Lab at [place] [phone] Xavier Malhotra MD [facility] [place] [address] Paroxysmal atrial fibrillation 12/29/2023 7:30 AM EDT - 12/29/2023 12:00 PM EDT Surgery Electrophysiology Lab at [place] [phone] Xavier Malhotra MD [facility] [place] [place] [address] ELECTROPHYSIOLOGY PROCEDURE 01/14/2024 10:40 AM EDT Office Visit Cardiology at [address] [phone] Carmen Castaneda PA [facility] [place] [address] Scheduled Procedures Name Priority Associated Diagnoses Date/Ti me TRANSESOPHAGEAL ECHO DURING CATH/EP PROCEDURE Paroxysmal atrial fibrillation 12/29/2023 7:30 AM EDT documented as of this encounter Procedures Procedure Name Priority Date/Time Associated Diagnosis Comments POCT URINE DIPSTICK Routine 09/20/2019 8 :30 AM EDT Ovarian cancer, lateral, stage IIIb high-grade serous/endometrioid , 07/20/2019 s/p FREDI/BSO/oment/PPALN D/RSReanstomosis documented in this encounter Results * POCT urine dipstick (09/20/2019 8:30 AM EDT) POC Protein, UA trace Negative - Negative mg/dL 09/20/2019 8:30 AM EDT Natalie Vallejo MD POINT OF CARE TEST O RDERABLES documented in this encounter Visit Diagnoses Diagnosis Ovarian cancer, lateral, stage IIIb high-grade serous/endometrioid, 07/20/2019 s/p FREDI/BSO/oment/PPALND/RSReanstomosis Paroxysmal atrial fibrillation Atrial fibrillation Paroxysmal atrial fibrillation Atrial fibrillation documented in this encounter Care Teams Tree Worker Relationship Specialty Start Date End Date Evelyne Hunt APRN [address] [place] [place] [address] PCP - General Internal Medicine 09/23/17 documented as of this encounter
--- OUTSIDE RECORDS SUMMARY | 2023-12-01 02:17 | XMS_ITS | Encounter Summary ---
[place] [address] Care Team Providers Care Naval Designer Name Role Phone Kiki Huntyce Dat STEVEN Primary Care Provider [phone] Reason for Visit * Reason Onset Date Comments Results 11/15/2019 Encounter Details Date Type Department Care Team (Late st Contact Info) Description 11/15/2019 Telephone Gynecology [place] [phone] Jaqueline Doran, RN Results Social History Tobacco [...] Telephone Encounter - Jaqueline Doran RN - 11/15/2019 3:28 PM EDT Called to inform that CBC results are WNL. Stated that she a couple of mouth sores that are gettingbetter and she uses salt and water rinses. Advised to use soft toothbrush to clean mouth and keep an eye on it. Recent Results (from the past 72 hour(s)) CBC / CMP / Thyroid External Results Result Value Ref Range WBC 2.90 RBC 3.37 Hemoglobin 12.0 Hematocrit 34.0 Platelets 234 Neutr Abs (ANC) 1.190 documented in this encounter Plan of Treatment Upcoming Encounters Date Type Department Care Team (Latest Contact Info) Description 12/25/2023 9:[address] [place] [address] Xavier Malhotra MD [facility] [place] [address] 12/29/2023 Hospital Encounter Electrophysiology [place] [phone] Xavier Malhotra MD [facility] [place] [address] Paroxysmal atrial fibrillation 12/29/2023 7:30 AM EDT - 12/29/2023 12:00 PM EDT Surgery Electrophysiology [place] [phone] Xavier Malhotra MD [facility] [place] [address] ELECTROPHYSIOLOGY PROCEDURE 01/14/2024 10:40 AM EDT Office Visit Cardiology at [address] [phone] Carmen Castaneda PA [facility] [place] [address] Scheduled Procedures Name Priority Associated Diagnoses Date/Ti me TRANSESOPHAGEAL ECHO DURING CATH/EP PROCEDURE Paroxysmal atrial fibrillation 12/29/2023 7:30 AM EDT documented as of this encounter Visit Diagnoses Not on filedocumented in this encounter Care Teams Naval Designer Relationship Specialty Start Date End Date Evelyne Hunt APRN [address] [place] [address] PCP - General Internal Medicine 09/23/17 documented as of this encounter
--- OUTSIDE RECORDS SUMMARY | 2023-12-01 02:17 | XMS_ITS | Encounter Summary ---
Author Organization [facility] [place] [address] Care Team Providers Care Engine Repairer Production Name Role Phone Kiki Huntyce Dat STEVEN Primary Care Provider [phone] Reason for Visit * Reason Onset Date Comments Results 10/05/2019 Encounter Details Date Type Department Care Team (Late st Contact Info) Description 10/05/2019 Telephone [place] [phone] Jaqueline Doran, RN Results Social History Tobacco [...] Telephone Encounter - Jaqueline Doran RN - 10/05/2019 8:47 AM EDT Called patient to inform that CBC results are all OK. She's happy to hear this stated,I thought you're giving me a bad news. Thank you, I appreciate you calling me, more than you know. Recent Results (from the past 72 hour(s)) CBC / CMP / Thyroid External Results Result Value Ref Range WBC 4.03 RBC 4.09 Hemoglobin 13.9 Hematocrit 39.1 Platelets 231 Neutr Abs (ANC) 2.01 documented in this encounter Plan of Treatment Upcoming Encounters Date Type Department Care Team (Latest Contact Info) Description 12/25/2023 9:[address] Scan at [place] [phone] Xavier Malhotra MD [facility] [place] [address] 12/29/2023 Hospital Encounter Electrophysiology Lab at [place] [phone] Xavier Malhotra MD [facility] [address] Paroxysmal atrial fibrillation 12/29/2023 7:30 AM EDT - 12/29/2023 12:00 PM EDT Surgery Electrophysiology Lab at [place] [phone] Xavier Malhotra MD [facility] [place] [address] ELECTROPHYSIOLOGY PROCEDURE 01/14/2024 10:40 AM EDT Office Visit Cardiology at [place] [phone] Carmen Castaneda PA [facility] [place] [address] Scheduled Procedures Name Priority Associated Diagnoses Date/Ti me TRANSESOPHAGEAL ECHO DURING CATH/EP PROCEDURE Paroxysmal atrial fibrillation 12/29/2023 7:30 AM EDT documented as of this encounter Visit Diagnoses Not on filedocumented in this encounter Care Teams Engine Repairer Production Relationship Specialty Start Date End Date Evelyne Hunt APRN [address] [place] [address] PCP - General Internal Medicine 09/23/17 documented as of this encounter
--- OUTSIDE RECORDS SUMMARY | 2023-12-01 02:18 | XMS_ITS | Encounter Summary ---
Author Organization [facility] [place] [address] Care Team Providers Care Commercial Leasing Manager Name Role Phone Evelyne Hunt APRN Primary Care Provider [phone] Reason for Visit * Auth/Cert Specialty Diagnoses / Procedures Referred By Contac t Referred To Contact Diagnoses PELVIC MASS Procedures PRO EDER SALP-OOPH W/OMENTECT, FREDI, RAD DISSECT @[email or web address], FREDI, BSO, DEBULKING (WRVU [id number]) Referral ID Status Reason Start Date Expiration Date Visits Re quested Visits Authorized [id number] 1 1 Encounter Details Date Type Department Care Team (Late st Contact Info) Description 07/20/2019 7:30 AM EDT - 07/20/2019 11:25 AM EDT [place] [address] Pasquale Vallejo MD [facility] [place] [address] @[email or web address], FREDI, BSO, DEBULKING (WRVU 34.13) Social History Tobacco Use Types Packs/Day Years [...] Sign Reading Time Taken Comments Blood Pressure 143/77 07/20/2019 6:18 AM EDT Pulse 70 07/20/2019 6:18 AM EDT Temperature 36.6 ??C (97.9 ??F) 07/20/2019 6:18 AM ED T Respiratory Rate 18 07/20/2019 6:18 AM EDT Oxygen Saturation 100% 07/20/2019 6:18 AM EDT Inhaled Oxygen Concentration - - Weight 62.6 kg (138 lb) 07/20/2019 6:18 AM EDT Height 165.1 cm (5' 5) 07/20/2019 6:18 AM EDT Body Mass Index 24.51 07/20/2019 6:18 AM EDT documented in this encounter Discharge Summaries * Misha Ding MD - 07/24/2019 11:15 AM EDT Images from the original note were not included. Discharge Summary Patient Name: Gabi Luna Patient Age: 58 y.o. Language: South Korean Race: White Ethnicity: Not nor Admit date: 07/20/2019 Discharge date and time: 07/24/2019 Attending Physician: Pasquale Vallejo MD Discharge Physician: Gabriela Singh MD Follow-up Recommendations for Providers: -Staple removal with Dr. Harrison on 07/29 or 08/01 (Dr. Harrison is going to arrange with Ivana) -Follow-up with Dr. Vallejo on 08/10/19 at 9:30AM via telephone visit Inpatient Provider Contact Information: Dr. Pasquale Vallejo, [facility] Gynecologic Oncology, Discharge Diagnoses (Hospital Problems) and Secondary Diagnoses (Chronic Problems): Active Hospital Problems Diagnosis ??? Pelvic mass Resolved Hospital Problems No resolved problems to display. Active Non-Hospital Problems Diagnosis ??? HTN (hypertension) ??? Nonrheumatic aortic valve stenosis--moderate to severe per 2020 echo (scanned docs) ??? Chest pain ??? SVT (supraventricular tachycardia) ??? Bicuspid aortic valve ??? Hypothyroidism Operations/Major Procedures: 07/20/2019 Total abdominal hysterectomy, bilateral salpingo-oophorectomy, bilateral pelvic and paraaortic lymphadenectomy, infracolic omentectomy, rectosigmoid resection and reanastomosis History of Presentation: Gabi Luna is a 58 y.o. female referred for evaluation of a pelvic mass. ?? On 07/08/2019 the patient underwent a CT scan of the abdomen and pelvis for pelvic pain. This was done with contrast oral and IV. Fatty liver was noted. A liver cyst was seen. There is no abdominal orpelvic adenopathy. There is a complex multicystic mass of the pelvis with multiple apparent solid components. 12 x 8 cm in diameter. Cancer was suspected. Small quantity of free fluid seen in the pelvis. ?? The patient also underwent a transvaginal ultrasound which was performed on 07/05/2019 which revealed a 6.5 x 2.9 x 3.8 cm anteverted uterus. Complex fluid was seen around the right ovary. The right ovary itself was thought to measure 3.8 x 1.3 x 2.3 cm. The fluid around the ovary was thought to represent hemorrhagic or infected material. There was also a 7.3 x 5.4 cm complex round lesion surrounding the left ovary. No internal blood flow was seen. Complex fluid was seen in the cul-de-sac. ?? In the office the patient notes that she started having some lower pelvic pain. It persisted and her pants were not able to fit around the waist. Her appetite is decreased, she feels full after a fewbites. She is also peeing more frequently. She has no dysuria. She is moving her bowels normally. Surgical management was recommended and the patient accepted. Preoperative laboratory survey showeda hemoglobin of 14.8, normal electrolytes, creatinine of 0.73, and CA125 of 350. Due to her history of aortic stenosis, preoperative anesthesia evaluation was recommended. During her preadmission testing evaluation the anesthesia provider reached out to the patient's cardiologistwho recommended proceeding with surgery as he felt she is not at the point where she needs an aortic valve replacement and recommended invasive monitoring and optimization of her cardiac loading conditions. Hospital Course: Gabi Luna was admitted through Same Day Surgery and underwent the above procedures without complication. EBL was 250mL. Findings were notable for: -On EUA: Large cystic pelvic mass palpated in the left pelvis with minimal mobility -On laparotomy: Approximately 100 mL of clear blood-tinged ascites. An approximately 8 cm, left, multicystic ovarian mass was noted along with tumor studding over the anterior and posterior cul-de-sac peritoneum. The right ovary appeared irregular and multicystic with a greatest dimension of approximately 4 cm. Tumor studding extended on the anterior surface of the rectosigmoid colon. The remainder of the colon and the small bowel were examined and no evidence of disease was noted. Bilateral paracolic gutters and omentum were free of visible or palpable disease. The upper abdomen was palpatedand no evidence of disease was noted. Frozen section: Left tube and ovary, carcinoma, favor endometrioid type Residual disease: None, R0 Postoperatively the patient was taken to PACU and on POD #0 was transferred to the floor. Ivana had numbness over her left anterior knee which was felt to be related to a positioning relatedneuropraxia. She was evaluated by PT/OT and deemed to be safe for discharge with a walker. Her post-operative course was otherwise uncomplicated. She was able to tolerate a regular diet and ambulate without difficulty. Wong catheter was removed on POD#2 and pt was able to void without issue. Her pain was well-controlled on oral medications by the time of discharge. She was discharged home on POD#4 in stable condition with follow-up in place. We discussed discharge instructions and plan of care, all questions answered. Due to her post-operative pain the patient was given a prescription for hydromorphone to take only for breakthrough pain not responsive to acetaminophen and ibuprofen. She was counseled regarding thedangers of these medications including sedation which would impair her ability to drive safely. Thepotential for addiction with continued use of narcotic was discussed and the need to stop use as soon as possible. It was recommended that she promptly destroy unused medication or take them back to drop box locations. The opioid risk assessment was done, opioid informed consent reviewed and signedby patient, PDMP query completed. Discharge instructions discussing the risk of opioids are included in her discharge instructions which are printed and given to the patient at discharge. Vital signs at Discharge: BP: 120/82, Heart Rate: 77, Temp: 37 ??C (98.6 ??F), Resp: 20, BMI (Calculated): 22.96 Height: 165.1 cm (5' 5) (07/20/19 0618) Weight: 66.8 kg (147 lb 4.3 oz) (07/24/19 0734) Functional and Cognitive status: At baseline Important Studies and Lab Data: Results for orders placed or performed during the hospital encounter of 07/20/19 Basic Metabolic Panel (non-fasting) Result Value Ref Range Glucose Lvl 119 65 - 199 mg/dL BUN 8 8 - 18 mg/dL Creatinine 0.53 (L) 0.70 - 1.20 mg/dL Sodium 138 135 - 145 mmol/L Potassium 3.9 3.5 - 5.0 mmol/L Chloride 103 98 - 107 mmol/L CO2 23 22 - 31 mmol/L Anion Gap 12 5 - 15 mmol/L Calcium 8.3 (L) 8.5 - 10.5 mg/dL eGFR 105 >=60 mL/min/1.73 m?? eGFR 121 >=60 mL/min/1.73 m?? Magnesium Result Value Ref Range Magnesium 0.60 (L) 0.69 - 1.07 mmol/L Hemogram Result Value Ref Range WBC 10.2 (H) 4.0 - 9.5 x10(3)/mcL RBC 3.28 (L) 4.00 - 5.21 x10(6)/mcL Hemoglobin 11.1 (L) 11.7 - 15.5 gm/dL Hematocrit 33.0 (L) 35.7 - 45.8 % MCV 100.6 (H) 82.6 - 94.4 fL MCH 33.8 (H) 27.1 - 32.0 pg MCHC 33.6 31.7 - 35.0 gm/dL Platelets 224 145 - 357 x10(3)/mcL RDWSD 42.6 37.0 - 46.0 fL RDWCV 11.7 11.5 - 14.1 % MPV 9.4 7.6 - 12.9 fL nRBC % Auto 0.0 % nRBC Abs Auto 0.000 0.000 - 0.000 x10(3)/mcL Differential, Automated Result Value Ref Range Neutrophils % 84.9 % Neutr Abs (ANC) 8.64 (H) 1.70 - 6.10 x10(3)/mcL Lymphocytes % 7.1 % Lymphocytes Abs 0.7 (L) 0.9 - 3.2 x10(3)/mcL Monocytes % 7.4 % Monocyte Abs 0.8 0.3 - 0.9 x10(3)/mcL Eosinophils % 0.0 % Eosinophils Abs 0.0 0.0 - 0.4 x10(3)/mcL Basophils % 0.2 % Basophils Abs 0.0 0.0 - 0.1 x10(3)/mcL Immature Gran % 0.40 % Mercedes Gran Abs 0.04 0.00 - 0.04 x10(3)/mcL Basic Metabolic Panel (non-fasting) Result Value Ref Range Glucose Lvl 104 65 - 199 mg/dL BUN 7 (L) 8 - 18 mg/dL Creatinine 0.53 (L) 0.70 - 1.20 mg/dL Sodium 137 135 - 145 mmol/L Potassium 3.8 3.5 - 5.0 mmol/L Chloride 103 98 - 107 mmol/L CO2 26 22 - 31 mmol/L Anion Gap 8 5 - 15 mmol/L Calcium 8.4 (L) 8.5 - 10.5 mg/dL eGFR 105 >=60 mL/min/1.73 m?? eGFR 121 >=60 mL/min/1.73 m?? Magnesium Result Value Ref Range Magnesium 0.84 0.69 - 1.07 mmol/L Hemogram Result Value Ref Range WBC 8.0 4.0 - 9.5 x10(3)/mcL RBC 3.02 (L) 4.00 - 5.21 x10(6)/mcL Hemoglobin 10.2 (L) 11.7 - 15.5 gm/dL Hematocrit 30.8 (L) 35.7 - 45.8 % MCV 102.0 (H) 82.6 - 94.4 fL MCH 33.8 (H) 27.1 - 32.0 pg MCHC 33.1 31.7 - 35.0 gm/dL Platelets 188 145 - 357 x10(3)/mcL RDWSD 44.5 37.0 - 46.0 fL RDWCV 11.9 11.5 - 14.1 % MPV 9.7 7.6 - 12.9 fL nRBC % Auto 0.0 % nRBC Abs Auto 0.000 0.000 - 0.000 x10(3)/mcL Differential, Automated Result Value Ref Range Neutrophils % 71.2 % Neutr Abs (ANC) 5.70 1.70 - 6.10 x10(3)/mcL Lymphocytes % 19.3 % Lymphocytes Abs 1.5 0.9 - 3.2 x10(3)/mcL Monocytes % 6.8 % Monocyte Abs 0.5 0.3 - 0.9 x10(3)/mcL Eosinophils % 1.8 % Eosinophils Abs 0.1 0.0 - 0.4 x10(3)/mcL Basophils % 0.5 % Basophils Abs 0.0 0.0 - 0.1 x10(3)/mcL Immature Gran % 0.40 % Mercedes Gran Abs 0.03 0.00 - 0.04 x10(3)/mcL Basic Metabolic Panel (non-fasting) Result Value Ref Range Glucose Lvl 93 65 - 199 mg/dL BUN 6 (L) 8 - 18 mg/dL Creatinine 0.47 (L) 0.70 - 1.20 mg/dL Sodium 140 135 - 145 mmol/L Potassium 3.6 3.5 - 5.0 mmol/L Chloride 107 98 - 107 mmol/L CO2 26 22 - 31 mmol/L Anion Gap 7 5 - 15 mmol/L Calcium 8.5 8.5 - 10.5 mg/dL eGFR 109 >=60 mL/min/1.73 m?? eGFR 126 >=60 mL/min/1.73 m?? Magnesium Result Value Ref Range Magnesium 0.78 0.69 - 1.07 mmol/L Hemogram Result Value Ref Range WBC 6.7 4.0 - 9.5 x10(3)/mcL RBC 3.06 (L) 4.00 - 5.21 x10(6)/mcL Hemoglobin 10.2 (L) 11.7 - 15.5 gm/dL Hematocrit 31.5 (L) 35.7 - 45.8 % MCV 102.9 (H) 82.6 - 94.4 fL MCH 33.3 (H) 27.1 - 32.0 pg MCHC 32.4 31.7 - 35.0 gm/dL Platelets 186 145 - 357 x10(3)/mcL RDWSD 44.6 37.0 - 46.0 fL RDWCV 11.7 11.5 - 14.1 % MPV 9.5 7.6 - 12.9 fL nRBC % Auto 0.0 % nRBC Abs Auto 0.000 0.000 - 0.000 x10(3)/mcL Differential, Automated Result Value Ref Range Neutrophils % 66.9 % Neutr Abs (ANC) 4.50 1.70 - 6.10 x10(3)/mcL Lymphocytes % 19.1 % Lymphocytes Abs 1.3 0.9 - 3.2 x10(3)/mcL Monocytes % 8.0 % Monocyte Abs 0.5 0.3 - 0.9 x10(3)/mcL Eosinophils % 4.7 % Eosinophils Abs 0.3 0.0 - 0.4 x10(3)/mcL Basophils % 0.9 % Basophils Abs 0.1 0.0 - 0.1 x10(3)/mcL Immature Gran % 0.40 % Mercedes Gran Abs 0.03 0.00 - 0.04 x10(3)/mcL Hemogram Result Value Ref Range WBC 6.0 4.0 - 9.5 x10(3)/mcL RBC 3.30 (L) 4.00 - 5.21 x10(6)/mcL Hemoglobin 11.2 (L) 11.7 - 15.5 gm/dL Hematocrit 34.1 (L) 35.7 - 45.8 % MCV 103.3 (H) 82.6 - 94.4 fL MCH 33.9 (H) 27.1 - 32.0 pg MCHC 32.8 31.7 - 35.0 gm/dL Platelets 232 145 - 357 x10(3)/mcL RDWSD 43.5 37.0 - 46.0 fL RDWCV 11.5 11.5 - 14.1 % MPV 9.7 7.6 - 12.9 fL nRBC % Auto 0.0 % nRBC Abs Auto 0.000 0.000 - 0.000 x10(3)/mcL Differential, Automated Result Value Ref Range Neutrophils % 61.5 % Neutr Abs (ANC) 3.70 1.70 - 6.10 x10(3)/mcL Lymphocytes % 22.6 % Lymphocytes Abs 1.4 0.9 - 3.2 x10(3)/mcL Monocytes % 8.0 % Monocyte Abs 0.5 0.3 - 0.9 x10(3)/mcL Eosinophils % 6.6 % Eosinophils Abs 0.4 0.0 - 0.4 x10(3)/mcL Basophils % 1.0 % Basophils Abs 0.1 0.0 - 0.1 x10(3)/mcL Immature Gran % 0.30 % Mercedes Gran Abs 0.02 0.00 - 0.04 x10(3)/mcL Green Tube HOLD Result Value Ref Range Green Hold Sample in lab. POCT Glucose Result Value Ref Range POC Glucose 97 65 - 199 mg/dL Surgical Pathology Report Result Value Ref Range Surgical Pathology Report [id number] Location: OR; OR26; A The signing pathologist has (i) examined the relevant preparation(s) for the specimen(s) and (ii) rendered or confirmed the diagnosis(es). . Frozen Section FROZEN SECTION DIAGNOSIS AFS - Left tube and ovary: Carcinoma, favor endometrioid type 07/20/19 09:27 Electronically signed by: Lani Arceo DO Verified: 07/20/2019 Pathologist Performed at: -[facility] Dept. of Pathology, [place], [place] This intraoperative consultation should be interpreted as a preliminary diagnosis pending review of the entire specimen and special studies, if any. Pending Studies and Lab Data: Final pathology PEND Discharge Conditions/Prognosis: stable Discharge to: Home Updated Allergies/ADRs: Allergies Allergen Reactions ??? Penicillins CIS - Anaphylaxis Immunizations Given this Hospitalization: Immunization History Administered Date(s) Administered ??? Influenza Vaccine (Novel) [id number], Injectable 04/06/2009 Discharge Medications: Your Medications New Medications Dose Details acetaminophen 325 mg Tab Commonly known as: Tylenol Take 2 tablets by mouth every 6 hours as needed for Pain. 650 mg Quantity: 50 tablet Refills: 0 ibuprofen 600 mg Tab Commonly known as: Advil;Motrin Take 1 tablet by mouth every 6 hours as needed for Pain. 600 mg Quantity: 50 tablet Refills: 0 polyethylene glycol 17 gram Pwpk Commonly known as: Miralax Take 17 g by mouth daily. 17 g Quantity: 14 each Refills: 0 senna-docusate 8.6-50 mg Tab Commonly known as: Pericolace Take 2 tablets by mouth 2 times daily. Please use if taking hydromorphone; can hold if you have >2 loose bowel movements in 24hrs 2 tablet Quantity: 60 tablet Refills: 0 Continued medications with new dosing Dose Details HYDROmorphone 2 mg Tab Commonly known as: Dilaudid Take 1-2 tablets by mouth every 4 hours as needed for Pain. What changed: ?? how much to take ?? how to take this ?? when to take this ?? reasons to take this 2-4 mg Quantity: 40 tablet Refills: 0 Continued medications, unchanged Dose Details atorvastatin 10 mg Tab Commonly known as: Lipitor Take 10 mg by mouth daily. 10 mg Refills: 0 * dilTIAZem CD 180 mg Cp24 Commonly known as: Cardizem CD Take 1 capsule by mouth daily. 180 mg Quantity: 60 capsule Refills: 5 * dilTIAZem 30 mg Tab Commonly known as: Cardizem Take 1 tablet by mouth as needed (Palpitations. If you use more than 3 tablets in a day, please call our office.). 30 mg Quantity: 60 tablet Refills: 3 hydroCHLOROthiazide 25 mg Tab Commonly known as: Hydrodiuril Take 25 mg by mouth daily. 25 mg Refills: 0 UNABLE TO FIND daily. CBD - 25 mg Refills: 0 VITAMIN D ORAL Take by mouth daily. Refills: 0 * This list has 2 medication(s) that are the same as other medications prescribed for you. Read thedirections carefully, and ask your doctor or other care provider to review them with you. Smoking Status at Discharge: Social History Tobacco Use Smoking Status Former Smoker ??? Last attempt to quit: 07/12/1977 ??? Years since quittin.0 Smokeless Tobacco Never Used Instructions Given to Patient at Discharge: Patient Instructions PATIENT DISCHARGE INSTRUCTIONS Gynecologic Oncology phone number: [phone]. After hours and on weekends please call hospital video camera operator at [phone] and ask for Gynecologic Oncologist certified residential medication aide. Call your doctor if you develop: --A fever over 101 degrees --Severe pain --Heavy vaginal bleeding- soaking through a pad an hour --Increasing pain, redness, or discharge at your incision --It is normal to have continuous or intermittent light spotting from the vagina for up to 6 weeks following hysterectomy -Staple removal with Dr. Harrison on 07/29 or 08/01 (Dr. Harrison is going to arrange with Ivana) -Follow-up with Dr. Vallejo will be via phone discussion on 08/10/19 at 9:30AM due to the current COVID-19 situation (they will try to call you within 30 minutes of this time). If at any time you haveconcerns that you feel need to be addressed in person please call our office to schedule an appointment. Activity level: No heavy lifting, pushing or pulling for 6 weeks. No sexual intercourse, no tampons, nothing in the vagina for 8 weeks. Nothing in your rectum for 8 weeks (including no suppositories or enemas). Diet: You may resume your regular diet. Be sure you drink plenty of fluids. Bowel regimen: Please use lazara-colace (senna-S or docusate-senna) 1-2 tablets twice daily for the entire time that you are taking narcotic pain medication to keep your bowel movements soft and regular. You may consider using this post- operatively even if you are not using narcotic pain medication. You can increase this to up to 8 tablets a day (and may take 6-12 hours for effect). If you are constipated or have not had a bowel movement in 2 days, you may add in polyethylene glycol (Miralax) 17g(one capful) 1-2 times daily (may take 1-2 days for effect). If this is ineffective you may add Milk of Magnesia 30mL (2 Tablespoons) daily (may take 30 minutes - 6 hours to work). The next step is to use Magnesium Citrate 1 bottle (295mL)- this usually produces a bowel movement in 30 minutes-3 hours. Please call if you have not had a bowel movement in 3-4 days. Driving: Do not drive until you are off of all narcotic medications and you are not feeling pain; usually about 2 weeks. Shower/Bath: Showering is fine. Short baths are okay but you should avoid having any abdominal incision submerged for more than 10-15 minutes for the next 2 weeks. Wound Care: You will have your dominick removed 10-14 days after surgery by a healthcare provider, who will place small pieces of paper tape over your incision. This tape can get wet in the shower, just ensure that you dry them well. These pieces of tape should fall off within 7 days; if they have not, please remove them after one week. Pain Control: For your post-operative pain please use ibuprofen, acetaminophen, heating pad, and narcotic pain medication (hydromorphone [Dilaudid]) for your pain management. Your goal is to be able to take several short walks every day (increase the duration each day) and to be able to sleep at night. If you are unable to do these things using the ibuprofen and acetaminophen and heating pad thenyou will need to use the narcotic pain medication (hydromorphone) for breakthrough pain. You shouldbe able to use less hydromorphone every couple days and require no breakthrough narcotic pain medication in about 1-4 weeks. 1. Please use ibuprofen (Advil/Motrin) 600mg every 6 hours around the clock (with food) for the next 5-7 days. After that, use as needed. 2. Please use acetaminophen (Tylenol) 650mg every 6 hours as needed (or 1000mg every 8 hours as needed). Do not exceed 3000mg of acetaminophen from any source in 24 hours. 3. Please use hydromorphone [Dilaudid] every 4-6 hours as needed for pain that ???breaks through?? the ibuprofen and acetaminophen. Please take your medication exactly as prescribed. Read all instructions that come with your medication. ?? Using narcotic pain medication (such as oxycodone, hydromorphone (Dilaudid), morphine, fentanyl,or tramadol) may cause addiction. While addiction is more common in people with a personal or family history of addiction, it can occur in anyone. ?? Taking more than the prescribed amount of medication or using with alcohol or other drugs can cause you to stop breathing resulting in coma, brain damage, or . ?? Opioids (oxycodone, hydromorphone/Dilaudid, morphine, fentanyl, tramadol) can slow reaction time, cause drowsiness, or cloud judgement. It is unsafe for you to drive or operate heavy machinery while taking this medication. ?? Opioids (oxycodone, hydromorphone/Dilaudid, morphine, fentanyl, tramadol) are at risk of being diverted by anyone with access to your home. Opioids should be stored in a safe and secure place, such as a locked cabinet or safe. Unused opioids (oxycodone, hydromorphone/Dilaudid, morphine, fentanyl, tramadol) should be disposedof according to the label or patient information. If there are no specific instructions, medications may be returned to a take-back location or mixed with a small amount of water and an undesirable waste substance such as coffee grounds or cat litter. General Instructions None Future Appointments and Orders Future Appointments and Orders Future Appointments Provider Department Dept Phone 08/10/2019 9:30 AM Pasquale Vallejo MD Gynecology Oncology at [facility] Arrive at: Home [phone] Please do not come in for this visit. Your provider will call you at the number you provided. Future Orders Complete By Expires Walker rolling [EQ134 Custom] As directed Process Instructions: Scheduling Instructions: Comments: Gabi Luna [address] [facility] [phone] (home) [phone] (cell) Diagnosis: post-operative with Unsteady gait Significant weakness, ataxia or gait abnormality Patient's: Hgt: 165.1 cm Wgt: 66.1 kg VENDOR: [facility] Located @ [place], [place] Ordering: Front wheel walker Deliver to 's hospital room #: 114a Questions: Vendor Name/Contact information: [facility] Discharge References/Attachments None Provider Contact Information: Evelyne Hunt, TENISHA [phone] documented in this encounter Discharge Instructions * Patient Instructions* Nathaly Zamora PA - 07/20/2019 7:27 AM EDT Images from the original note were not included. PATIENT DISCHARGE INSTRUCTIONS Gynecologic Oncology phone number: [phone]. After hours and on weekends please call hospital video camera operator at [phone] and ask for Gynecologic Oncologist certified residential medication aide. Call your doctor if you develop: --A fever over 101 degrees --Severe pain --Heavy vaginal bleeding- soaking through a pad an hour --Increasing pain, redness, or discharge at your incision --It is normal to have continuous or intermittent light spotting from the vagina for up to 6 weeks following hysterectomy -Staple removal with Dr. Harrison on 07/29 or 08/01 (Dr. Harrison is going to arrange with Ivana) -Follow-up with Dr. Vallejo will be via phone discussion on 08/10/19 at 9:30AM due to the current COVID-19 situation (they will try to call you within 30 minutes of this time). If at any time you haveconcerns that you feel need to be addressed in person please call our office to schedule an appointment. Activity level: No heavy lifting, pushing or pulling for 6 weeks. No sexual intercourse, no tampons, nothing in the vagina for 8 weeks. Nothing in your rectum for 8 weeks (including no suppositories or enemas). Diet: You may resume your regular diet. Be sure you drink plenty of fluids. Bowel regimen: Please use lazara-colace (senna-S or docusate-senna) 1-2 tablets twice daily for the entire time that you are taking narcotic pain medication to keep your bowel movements soft and regular. You may consider using this post- operatively even if you are not using narcotic pain medication. You can increase this to up to 8 tablets a day (and may take 6-12 hours for effect). If you are constipated or have not had a bowel movement in 2 days, you may add in polyethylene glycol (Miralax) 17g(one capful) 1-2 times daily (may take 1-2 days for effect). If this is ineffective you may add Milk of Magnesia 30mL (2 Tablespoons) daily (may take 30 minutes - 6 hours to work). The next step is to use Magnesium Citrate 1 bottle (295mL)- this usually produces a bowel movement in 30 minutes-3 hours. Please call if you have not had a bowel movement in 3-4 days. Driving: Do not drive until you are off of all narcotic medications and you are not feeling pain; usually about 2 weeks. Shower/Bath: Showering is fine. Short baths are okay but you should avoid having any abdominal incision submerged for more than 10-15 minutes for the next 2 weeks. Wound Care: You will have your dominick removed 10-14 days after surgery by a healthcare provider, who will place small pieces of paper tape over your incision. This tape can get wet in the shower, just ensure that you dry them well. These pieces of tape should fall off within 7 days; if they have not, please remove them after one week. Pain Control: For your post-operative pain please use ibuprofen, acetaminophen, heating pad, and narcotic pain medication (hydromorphone [Dilaudid]) for your pain management. Your goal is to be able to take several short walks every day (increase the duration each day) and to be able to sleep at night. If you are unable to do these things using the ibuprofen and acetaminophen and heating pad thenyou will need to use the narcotic pain medication (hydromorphone) for breakthrough pain. You shouldbe able to use less hydromorphone every couple days and require no breakthrough narcotic pain medication in about 1-4 weeks. 1. Please use ibuprofen (Advil/Motrin) 600mg every 6 hours around the clock (with food) for the next 5-7 days. After that, use as needed. 2. Please use acetaminophen (Tylenol) 650mg every 6 hours as needed (or 1000mg every 8 hours as needed). Do not exceed 3000mg of acetaminophen from any source in 24 hours. 3. Please use hydromorphone [Dilaudid] every 4-6 hours as needed for pain that ???breaks through?? the ibuprofen and acetaminophen. Please take your medication exactly as prescribed. Read all instructions that come with your medication. ?? Using narcotic pain medication (such as oxycodone, hydromorphone (Dilaudid), morphine, fentanyl,or tramadol) may cause addiction. While addiction is more common in people with a personal or family history of addiction, it can occur in anyone. ?? Taking more than the prescribed amount of medication or using with alcohol or other drugs can cause you to stop breathing resulting in coma, brain damage, or . ?? Opioids (oxycodone, hydromorphone/Dilaudid, morphine, fentanyl, tramadol) can slow reaction time, cause drowsiness, or cloud judgement. It is unsafe for you to drive or operate heavy machinery while taking this medication. ?? Opioids (oxycodone, hydromorphone/Dilaudid, morphine, fentanyl, tramadol) are at risk of being diverted by anyone with access to your home. Opioids should be stored in a safe and secure place, such as a locked cabinet or safe. Unused opioids (oxycodone, hydromorphone/Dilaudid, morphine, fentanyl, tramadol) should be disposedof according to the label or patient information. If there are no specific instructions, medications may be returned to a take-back location or mixed with a small amount of water and an undesirable waste substance such as coffee grounds or cat litter. documented in this encounter Medications at Time of Discharge Medication Sig Dispensed Refills Start Date End Date HYDROmorphone (Dilaudid) 2 mg Tablet Take 1-2 tablets by mouth every 4 hours as needed for Pain. 40 tablet 07/24/2019 09/08/2019 acetaminophen (Tylenol) 325 mg Tablet Take 2 tablets by mouth every 6 hours as needed for Pain. 50 tablet 07/24/2019 05/03/2020 ibuprofen (Advil;Motrin) 600 mg Tablet Take 1 tablet by mouth every 6 hours as needed for Pain. 50 tablet 07/24/2019 05/03/2020 polyethylene glycol (Miralax) 17 gram Powder in Packet Take 17 g by mouth daily. 14 each 07/24/2019 12/29/2019 senna-docusate (Pericolace) 8.6-50 mg Tablet Take 2 tablets by mouth 2 times daily. Please use if taking hydromorphone; can hold if you have >2 loose bowel movements in 24hrs 60 tablet 07/24/2019 09/08/2019 ergocalciferol, vitamin D2, (VITAMIN D ORAL) Take [...] of this encounter Progress Notes * Lani Nino RN - 07/24/2019 12:07 PM EDT Patient discharged today. Prior to discharge, Pt able to eat, drink, urinate, and ambulate adequately. BM occurrence yesterday. Able to perform ADL's with minimal assistance. AVS reviewed with pt, verbalized understanding and all questions answered. Pain adequately controlled. Left to the [facility] Entrance with all belongings (including walker). To go home in personal vehicle driven by spouse. * Misha Ding MD - 07/24/2019 7:11 AM EDT Gynecologic Oncology Progress Note ID: Gabi Luna is a 58 y.o. woman with PMH of aortic stenosis, bicuspid aortic valve, SVT, HTN, HLD, anxiety and hypothyroidism, who is post operative day #4 s/p total abdominal hysterectomy, bilateral salpingo-oophorectomy, bilateral pelvic and paraaortic lymph adenectomy, omentectomy, rectosigmoid resection and reanastomosis for large multicystic pelvic mass; frozen pathology resulting ovarian carcinoma, favor endometrioid type. Interval Events -- No acute events Subjective: Ivana reports her night was much better. She was able to sleep well. She her pain is well controlled with po medication and she has been spacing it out. She is tolerating a regular diet without nausea or vomiting. She has been ambulating with assistance and voiding her bladder without issue. She is passing flatus and had a bowel movement. She feels her left knee numbness is stable and not inhibiting her mobilization. ROS: in addition to above, denies CP, palpitations, SOB, lightheadedness/dizziness, or leg pain. Objective: Last value Range last 8 hrs Temperature Temp: 36.7 ??C (98.1 ??F) Temp: [36.7 ??C (98.1 ??F)-36.8 ??C (98.2 ??F)] Heart Rate Heart Rate: 77 Heart Rate: -- Blood Pressure BP: 124/79 BP: (110-124)/(73-79) Respiratory Rate Resp: 20 Resp: [17-20] SpO2 SpO2: 91 % SpO2: [90 %-91 %] Intake/Output Summary (Last 24 hours) at 07/24/2019 1055 Last data filed at 07/24/2019 0831 Gross per 24 hour Intake 1010 ml Output 1775 ml Net -765 ml UOP: ~62 mL/hr over the last 12 recorded hours Patient Vitals for the past 168 hrs: Weight 07/23/19 1619 67.8 kg (149 lb 7.6 oz) 07/22/19 1500 66.1 kg (145 lb 11.2 oz) 07/20/19 0618 62.6 kg (138 lb) Physical Exam Gen: Resting comfortably in bed. NAD. Cardiac: RRR. 2/6 C-D murmur heard most strongly at the right sternal border Pulm: CTA b/l. No crackles, wheezes. Abd: Normoactive bowel sounds, soft, non distended and minimally tender to palpation. No rebound orguarding. Incision: Incision well approximated with dominick, no drainage expressed. Extremities: Numbness over left anterior knee stable. Calves non-tender. Legs equal in size with no lower extremity edema. SCDs on and functioning. Labs: Last 3 wbc, hgb, hct plt Recent Labs 07/24/19 0324 07/23/19 0309 07/22/19 0200 WBC 6.0 6.7 8.0 HGB 11.2* 10.2* 10.2* HCT 34.1* 31.5* 30.8* PLATELET 232 186 188 Last 3 Lytes Recent Labs 07/23/19 0309 07/22/19 0200 07/21/19 0235 NA 140 137 138 K 3.6 3.8 3.9 CL 107 103 103 CO2 26 26 23 BUN 6* 7* 8 CREATININE 0.47* 0.53* 0.53* 07/20/2019 Pathology FROZEN SECTION DIAGNOSIS AFS - Left tube and ovary: Carcinoma, favor endometrioid type Assessment and Plan Gabiteresa Luna is a 58 y.o. woman with PMH of aortic stenosis, bicuspid aortic valve, SVT, HTN, HLD, anxiety and hypothyroidism, who is s/p above procedure for large multicystic pelvic mass; frozen pathology resulting ovarian carcinoma, favor endometrioid type. Patient is overall recovering well in the immediate post-operative period. She is meeting postoperative milestones and ready for discharge. Neuro/Pain: Isolated left knee numbness; likely positional related. Pain well controlled; s/p TAP. Ordered for ibuprofen, Tylenol, Dilaudid PO. Alert and oriented. Heating pad prn. -- PT and OT following; appreciate recommendations. Cardiovascular: History of aortic stenosis, bicuspid aortic valve, SVT, HTN and HLD; ECHO 05/05/19 LVEF 60-65%, [employer] is Dr. Toure. Vital signs wnl. Hemodynamically stable, no evidence of bleeding. -- Hg stable at 11.2. Anemia likely due to acute blood loss but may also have a component of dilution from IVF resuscitation. Also suspect some hemoconcentration at the time of the preop CBC. -- continue home diltiazem with additional dose prn palpitations -- hold home HCTZ and Lipitor Pulmonary: Adequate spO2 on RA, lungs clear, no concerns, will wean as tolerated -- Encourage incentive spirometry GI: S/p rectosigmoid resection and reanastimosis. Denies nausea, vomiting. Tolerating regular diet.Passing flatus and BM. -- Pericolace BID and Miralax daily -- Zofran prn nausea -- No HI meds due to bowel resection : Voiding with adequate urine output. -Monitor intake and output FEN: IVF: off. Tolerating po fluid. Onc: Frozen section revealed malignancy. Final pathology report pending. -- Follow-up as scheduled in about 3 weeks. Endocrine: History of hypothyroidism. -- No current home medications ID: Afebrile, received prophylactic antibiotics preop, no evidence of infection -continue to monitor vital signs. Psych: History of anxiety. -- Mood stable Prophylaxis: Received 5000u subq Heparin preoperatively. -- Lovenox daily -- incentive spirometry. -- encourage ambulation. -- SCDs. Code Status: Full Code Dispo: Discharge to home Misha Ding MD PGY4 07/24/2019 Associated attestation - Gabriela Singh MD - 07/24/2019 7:41 PM EDT I have seen and examined the patient, providing butler components as outlined below. I have reviewed the resident???s above note; my evaluation of the patient is below: Feeling well this am. She was able to sleep overnight and has been able to space out her Dilaudid. She has also had a BM. Will d/c home. Reviewed s/sx for which to call. * Katelyn Winkler RN - 07/23/2019 2:19 PM EDT OFFICE OF CARE MANAGEMENT [facility] Discharge Note Patient plan of care discussed in multidisciplinary rounds and assessment for continuing care and discharge needs. [facility]: INSURANCE: Payor: MVP / Plan: [employer] [place] / Product Type: *No Product type* / SECONDARY INSURANCE: N/A DECISION MAKER: Full Code <no information> Patient continues to require hospitalization. Current Referral in place: [facility] maldonado [facility] cancelled. Pearl Fisherman to follow with team and family to assist with discharge needs when patient ready for discharge. Katelyn Winkler RN Case Management pgr [phone] * Katelyn Winkler RN - 07/23/2019 8:14 AM EDT The patient has been provided a list of DME vendors which serve their preferred geographic area. Patient requests referral to [facility] [place], [place] Expected date of discharge: 07/23/2019. NEED WALKER TODAY Referral routed to the Technical Spec for matching with agency/vendor and to provide any required information. * Katelyn Winkler RN - 07/23/2019 8:12 AM EDT The patient has been provided a list of Home Health Agencies which serve their preferred geographicarea. Patient requests referral to [facility] PHONE: [phone] FAX: [phone]. Expected date of discharge: 07/23/2019. Referral routed to the Technical Spec for matching with agency/vendor and to provide any required information. * Misha Ding MD - 07/23/2019 6:14 AM EDT Images from the original note were not included. Gynecologic Oncology Progress Note ID: Gabi Luna is a 58 y.o. woman with PMH of aortic stenosis, bicuspid aortic valve, SVT, HTN, HLD, anxiety and hypothyroidism, who is post operative day #3 s/p total abdominal hysterectomy, bilateral salpingo-oophorectomy, bilateral pelvic and paraaortic lymph adenectomy, omentectomy, rectosigmoid resection and reanastomosis for large multicystic pelvic mass; frozen pathology resulting ovarian carcinoma, favor endometrioid type. Interval Events -- Occupational therapy consulted for left inner thigh/knee numbness and provided adaptive techniques for mobilization Subjective: Ivana reports her night was not good. She is unhappy after her move to the first floor. She had pain early this morning which has been successfully treated with po medication. She is tolerating a regular diet without nausea or vomiting. She has been ambulating with assistance and voiding her bladder without issue. She is passing flatus; no bowel movement. She feels her left knee numbness is stable and not inhibiting her mobilization. ROS: in addition to above, denies CP, palpitations, SOB, lightheadedness/dizziness, or leg pain. Objective: Last value Range last 8 hrs Temperature Temp: 37.2 ??C (99 ??F) Temp: [37.1 ??C (98.8 ??F)-37.2 ??C (99 ??F)] Heart Rate Heart Rate: 77 Heart Rate: [77] Blood Pressure BP: 112/74 BP: (111-112)/(74) Respiratory Rate Resp: 12 Resp: [12] SpO2 SpO2: 92 % SpO2: [92 %-94 %] UOP: ~70 mL/hr over the last 12 recorded hours Patient Vitals for the past 168 hrs: Weight 07/22/19 1500 66.1 kg (145 lb 11.2 oz) 07/20/19 0618 62.6 kg (138 lb) Physical Exam Gen: Resting comfortably in bed. NAD. Patient upset, answers questions appropriately Cardiac: RRR. 2/6 C-D murmur heard most strongly at the right sternal border Pulm: CTA b/l. No crackles, wheezes. Abd: Normoactive bowel sounds, soft, non distended and minimally tender to palpation. No rebound orguarding. Incision: Incision well approximated with dominick, no drainage expressed. Minimal dry serosanguinous drainage on ABD pad. Loose ABD pad replaced. : no vaginal bleeding Extremities: Numbness over anterior knee and anterior thigh (7-8 cm above knee); otherwise normal sensation. Calves non-tender. Legs equal in size with no lower extremity edema. No erythema. Strength5/5 bilaterally. SCDs on and functioning. Labs: Last 3 wbc, hgb, hct plt Recent Labs 07/23/19 0309 07/22/19 0200 07/21/19 0235 WBC 6.7 8.0 10.2* HGB 10.2* 10.2* 11.1* HCT 31.5* 30.8* 33.0* PLATELET 186 188 224 Last 3 Lytes Recent Labs 07/23/19 0309 07/22/19 0200 07/21/19 0235 NA 140 137 138 K 3.6 3.8 3.9 CL 107 103 103 CO2 26 26 23 BUN 6* 7* 8 CREATININE 0.47* 0.53* 0.53* 07/20/2019 Pathology FROZEN SECTION DIAGNOSIS AFS - Left tube and ovary: Carcinoma, favor endometrioid type Assessment and Plan Gabi Luna is a 58 y.o. woman with PMH of aortic stenosis, bicuspid aortic valve, SVT, HTN, HLD, anxiety and hypothyroidism, who is s/p above procedure for large multicystic pelvic mass; frozen pathology resulting ovarian carcinoma, favor endometrioid type. Patient is overall recovering well in the immediate post-operative period. She is meeting postoperative milestones and ready for discharge. Neuro/Pain: Isolated left knee numbness; likely positional related. Pain well controlled; s/p TAP. Ordered for ibuprofen, Tylenol, Dilaudid PO. Alert and oriented. Heating pad prn. -- PT and OT following; appreciate recommendations. Likely d/c with [facility] Cardiovascular: History of aortic stenosis, bicuspid aortic valve, SVT, HTN and HLD; ECHO 05/05/19 LVEF 60-65%, [employer] is Dr. Toure. Vital signs wnl. Hemodynamically stable, no evidence of bleeding. -- Hg stable at 10.2. Anemia likely due to acute blood loss but may also have a component of dilution from IVF resuscitation. Also suspect some hemoconcentration at the time of the preop CBC. -- continue home diltiazem with additional dose prn palpitations -- hold home HCTZ and Lipitor Pulmonary: Adequate spO2 on RA, lungs clear, no concerns, will wean as tolerated -- Encourage incentive spirometry GI: S/p rectosigmoid resection and reanastimosis. Denies nausea, vomiting. Tolerating regular diet.Passing flatus. -- Pericolace BID and Miralax daily -- Zofran prn nausea -- No HI meds due to bowel resection : Wong removed. Voiding with adequate urine output. -Monitor intake and output FEN: IVF: off. Tolerating po fluid. - Lytes WNL this morning. Replete Mg to 1 due to hx of cardiac disease. Onc: Frozen section revealed malignancy. Final pathology report pending. -- Follow-up as scheduled in about 3 weeks. Endocrine: History of hypothyroidism. -- No current home medications ID: Afebrile, received prophylactic antibiotics preop, no evidence of infection -continue to monitor vital signs. Psych: History of anxiety. -- Mood stable Prophylaxis: Received 5000u subq Heparin preoperatively. -- Lovenox daily -- incentive spirometry. -- encourage ambulation. -- SCDs. Code Status: Full Code Dispo: Discharge to home Misha Ding MD PGY4 07/23/2019 Associated attestation - Gabriela Singh MD - 07/23/2019 3:51 PM EDT Patient seen and examined with the resident. I agree with their assessment and plan with the following additions: Gabi is feeling OK. She is meeting post op milestones, but continues to require q 3 hr dilaudid including a breakthrough dose overnight. In addition she had a difficult night and struggled when her meds were spaced to q4hr. We talked today about her narcotic requirement. Her pain is primarily cramping in nature in her lower abdomen and is well treated with the combination of ibuprofen, tylenol, and dilaudid. She is scared to get behind on pain meds. We discussed trying to space out her medications and see if she is able to go some additional time between doses. Will have her stay overnight to work on pain control. Plan for d/c home tomorrow if she continues to meet post op milestones and pain is adequately controlled overnight. * Mercedes Rizzo RN - 07/22/2019 5:04 PM EDT Ivana is POD#2 for a TAHBSO, bowel resection, and ex lap. Admitted to [facility] from [facility]. Pain incisional, PRN dilauded given 4mg. Pain not controlled, additional 2mg one time given due to order unable to pull additional 2mg from omnicel (range in order 4-6mg). Patient passing gas, voiding WNL. VSS.Patient very tearful and frustrated at end of shift. MD notified pain still not controlled, new pain scale placed, 6mg administered for incr pain. Patient educated about if pain still increasing, letnursing staff know, patient expressed understanding. * Kassandra Bassett RN - 07/22/2019 3:02 PM EDT Patient moving to [facility], report called to Mercedes ANDRES, Patients belongings gathered for transpo. * Mandeep Dietz - 07/22/2019 9:56 AM EDT TAP block resolved appropriately. No residual weakness/numbness/decreased sensation in block region. No sign of infection at injection site. Tolerating POs appropriately. Does report pain as block wore off, now controlled with PO and MINK RANCHER. Of note patient does report left knee numbness without change in strength which primary team is addressing. Mandeep Dietz MD 07/22/19 * Iram Laird MD - 07/22/2019 6:11 AM EDT Images from the original note were not included. Gynecologic Oncology Daily Progress Note ID: Gabi Luna is a 58 y.o. woman with PMH of aortic stenosis, bicuspid aortic valve, SVT, HTN, HLD, anxiety and hypothyroidism, who is post operative day #2 s/p total abdominal hysterectomy, bilateral salpingo-oophorectomy, bilateral pelvic and paraaortic lymph adenectomy, omentectomy, rectosigmoid resection and reanastomosis for large multicystic pelvic mass; frozen pathology resulting ovarian carcinoma, favor endometrioid type. 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 She had poor pain control at change of shift but this has since improved. Current pain is 4-5/10 in severity; controlled on Tylenol, ibuprofen and PO Dilaudid (4mg every 3-4 hours). She did not use her Dilaudid MINK RANCHER overnight. Has a minimal appetite; ate a roll for dinner without nausea/vomiting. Yesterday, she was out of bed and sitting in her chair mostof the day and worked with physical therapy for ongoing left knee numbness. Minimal ambulation. Sheasks if wong catheter can be removed today as she thinks this would help her discomfort. Began to pass flatus this morning; no bowel movement. Regarding her left knee numbness, she reports isolated numbness on the anterior knee and surrounding anterior thigh muscles. No numbness to medial/lateral/posterior thigh or calves. Denies change in strength or swelling. No pain, it just feels weird. ROS: in addition to above, denies CP, palpitations, SOB, lightheadedness/dizziness, or leg pain. Objective: Last value Range last 8 hrs Temperature Temp: 37.2 ??C (99 ??F) Temp: [37.1 ??C (98.8 ??F)-37.2 ??C (99 ??F)] Heart Rate Heart Rate: 72 Heart Rate: -- Blood Pressure BP: 102/62 BP: (101-102)/(62) Respiratory Rate Resp: 16 Resp: [16] SpO2 SpO2: 90 % SpO2: [90 %-91 %] UOP: 150 mL/hr over the last 8 recorded hours Physical Exam Gen: Resting comfortably in bed. NAD. Pleasant and cooperative, answers questions appropriately Cardiac: RRR. 2/6 C-D murmur heard most strongly at the right sternal border Pulm: CTA b/l. No crackles, wheezes. Abd: Normoactive bowel sounds, soft, mildly distended and tender to palpation. No rebound or guarding. Incision: Dressing removed this morning, saturated with serosanguinous drainage. Incision closed with dominick, mild drainage in the posterior aspect when pressure applied. ABD pain replaced. : Wong draining clear, yellow urine. 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 Calves non-tender. Legs equal in size with no lower extremity edema. Negative Crispin's sign, no erythema. Bilateral DP/PT pulse present and equal. Strength 5/5 bilaterally. SCDs off; replacedthis morning. Labs: Last 3 wbc, hgb, hct plt Recent Labs 07/22/19 0200 07/21/19 0235 07/12/19 1717 WBC 8.0 10.2* 7.1 HGB 10.2* 11.1* 14.8 HCT 30.8* 33.0* 43.3 PLATELET 188 224 292 Last 3 Lytes Recent Labs 07/22/19 0200 07/21/19 0235 07/12/19 1717 NA 137 138 141 K 3.8 3.9 3.5 CL 103 103 101 CO2 26 23 26 BUN 7* 8 12 CREATININE 0.53* 0.53* 0.73 07/20/2019 Pathology FROZEN SECTION DIAGNOSIS AFS - Left tube and ovary: Carcinoma, favor endometrioid type Assessment and Plan Gabi Luna is a 58 y.o. woman with PMH of aortic stenosis, bicuspid aortic valve, SVT, HTN, HLD, anxiety and hypothyroidism, who is s/p above procedure for large multicystic pelvic mass; frozen pathology resulting ovarian carcinoma, favor endometrioid type. Patient is overall recovering well in the immediate post-operative period. Pain has improved, now only on PO medications. Heating pad and blanket for abdominal bracing applied. Will discontinue MINK RANCHER today and continue to monitor. Will also discontinue wong catheter and complete voiding trial. Regarding isolated anterior left knee/thigh numbness, likely related to positioning or lymph node dissection. S/p physical therapy consult, who recommended likely home with assist and occupational therapy. Will continue to follow. Neuro/Pain: Isolated left knee numbness; likely positional or related to lymph node dissection. Pain well controlled; s/p TAP. Ordered for ketorolac-> ibuprofen, Tylenol, with Dilaudid MINK RANCHER as wellas PO. Alert and oriented. Heating pad in place. -- Will discontinue MINK RANCHER as pain well controlled on PO -- PT and OT following; appreciate recommendations Cardiovascular: History of aortic stenosis, bicuspid aortic valve, SVT, HTN and HLD; ECHO 05/05/19 LVEF 60-65%, [employer] Fisherman is Dr. Toure. Vital signs wnl. Hemodynamically stable, no evidence of bleeding. -- Hg decreased from 14.8 preop --> 11.1 --> 10.8. Anemia likely due to acute blood loss but may also have a component of dilution from IVF resuscitation. Also suspect some hemoconcentration atthe time of the preop CBC. -- continue home diltiazem with additional dose prn palpitations -- hold home HCTZ and Lipitor Pulmonary: Adequate spO2 on 2LNC, lungs clear, no concerns, will wean as tolerated -- Encourage incentive spirometry GI: S/p rectosigmoid resection and reanastimosis. Denies nausea, vomiting. Tolerating minimal PO; regular diet ordered -- Advance diet as tolerated. -- Pericolace BID and Miralax daily -- Zofran prn nausea -- No HI meds due to bowel resection : Wong is in place draining clear, yellow urine. Adequate urine output. -D/C wong later today -Monitor intake and output FEN: IVF: LR @100mL/hr- will keep euvolemic to slightly hypervolemic given (good LVEF). Tolerating po fluid. - Lytes WNL this morning Onc: Frozen section revealed malignancy. Final pathology report pending. -- Follow-up as scheduled in about 3 weeks. Endocrine: History of hypothyroidism. -- No current home medications ID: Afebrile, received prophylactic antibiotics preop, no evidence of infection -continue to monitor vital signs. Psych: History of anxiety. -- Mood stable Prophylaxis: Received 5000u subq Heparin preoperatively. -- Lovenox daily -- incentive spirometry. -- encourage ambulation. -- SCDs. Code Status: Full Code Dispo: Discharge to home when meeting all post-operative milestones, likely in 3-5 days. Discussed with attending Gynecologic Oncologist, Dr. Iram Laird. Anita Christiansen MD PGY3 Gynecologic Oncology #[id number] 07/22/2019 I have reviewed and concur with the resident's note, exam, and assessment. The patient was seen andexamined by Dr. Laird and all pertinent portions of the history, exam and decision-making for this patient encounter were performed by Dr Laird. Patient doing better this AM, less pain. Still has numbness in left knee but able to move leg with normal range of motion today. Plans to work with PT to ambulate better. Wong out this Am and plan to transition to oral pain medications and heplock IV. Iram Laird MD * Tayler Desai - 07/21/2019 9:09 PM EDT Called by floor RN due to patient complaint of ongoing numbness of left knee and now associated erythema, diminished pedal pulse on left. S: Ivana describes stable numbness over anterior left knee extending to ~2 cm above and below the patella. There is no associated tingling or pain. O: BP 111/71 (BP Location (NBP): Right arm, Patient Position: Lying) Pulse 72 Temp 37.1 ??C (98.8 ??F) (Oral) Resp 16 Ht 165.1 cm (5' 5) Wt 62.6 kg (138 lb) SpO2 91% BMI 22.96 kg/m?? BLEs symmetric, no difference in temperature between L and R knee to this examiner. No tenderness to palpation diffusely. Tibialis posterior and dorsalis pedis pulses are equal bilaterally. Negative Crispin's sign. A/P: Stable numbness isolated to left knee, most consistent with possible positional neuropathy. Additional considerations include venous or arterial thrombus. No clinical signs or symptoms to suggest DVT, specifically no asymmetry, no tenderness to palpation making DVT and no associated pain or signs of reduced perfusion to raise suspicion of arterial thrombus. Will continue to manage expectantly but maintain low threshold to obtain Dopplers if worsening or if new signs/symptoms. Tayler Desai MD, PGY-3 * Misha Ding MD - 07/21/2019 6:06 AM EDT Gynecologic Oncology Post-Op Check Gabi Luna is a 58 y.o. woman whose PMH is significant for aortic stenosis, bicuspid aortic valve, SVT, htn, anxiety, hypothyroidism, hyperlipidemia who is post operative day #1 s/p total abdominal hysterectomy, bilateral salpingo-oophorectomy, bilateral pelvic and paraaortic lymph adenectomy, omentectomy, rectosigmoid resection and reanastomosis for large multicystic pelvic mass. Subjective: Ivana reports her night went well overall. She had some episodes of pain which resolved with medications. She is currently having minimal pain. She is feeling hungry and ordered breakfast. She has notbeen out of bed yet. She has no dizziness or light-headedness. No heart racing or palpitations, no chest pain, no shortness of breath or cough, no numbness or tingling in hands/feet, no nausea/vomiting/flatus. Physical Exam: Last value Range last 8 hrs Temperature Temp: 36.7 ??C (98.1 ??F) Temp: [36.7 ??C (98.1 ??F)-37 ??C (98.6 ??F)] Heart Rate Heart Rate: 70 Heart Rate: [70-74] Blood Pressure BP: 101/62 BP: (97-101)/(62-64) Respiratory Rate Resp: 15 Resp: [15] SpO2 SpO2: 95 % SpO2: [95 %-97 %] Intake/Output Summary (Last 24 hours) at 07/21/2019 0754 Last data filed at 07/21/2019 0700 Gross per 24 hour Intake 5063.1 ml Output 1158 ml Net 3905.1 ml UOP at ~50 mL/hr over the last 7 recorded hours Gen: Resting comfortably in bed. NAD.Pleasant and cooperative, answers questions appropriately Neuro: Alert and oriented. Cardiac: RRR. 2/6 C-D murmur heard most strongly at the right sternal border Pulm: CTA b/l. No crackles, wheezes. Abd: Soft, mildly distended, absent BS, appropriately tender. No rebound or guarding. Incision: Tape and gauze dressing in place, no drainage outside of dressing, dressing not taken down : Wong draining clear, yellow urine. Dairy Store Manager: peripad with scant staining Extremities: No lower extremity edema. SCDs off, Pt reports they were recently removed and she worethem overnight Laboratory (Last 24 Hours): Frozen Section: Left tube and ovary: Carcinoma, favor endometrioid type Final Pathology Pending Assessment and Plan Gabi Luna is a 58 y.o. female with a past medical history significant for aortic stenosis, bicuspid aortic valve, SVT, hypertension, hypothyroidism, anxiety, hyperlipidemia who is s/p total abdominal hysterectomy, bilateral salpingo-oophorectomy, bilateral pelvic and paraaortic lymphadenectomy, omentectomy, rectosigmoid resection and reanastomosis for large cystic pelvic mass which frozensection showed endometrioid malignancy, recovering well in the immediate post-operative period. Neuro: Pain well controlled. s/p TAP, ketorolac-> ibuprofen, acetaminophen, with hydromorphone IV and po and MINK RANCHER ordered. Alert and oriented. Heating pad in place. -Transition off MINK RANCHER to PO narcotics once tolerating regular diet Cardiovascular: Vital signs wnl. Hemodynamically stable, no evidence of bleeding. -Hb 11.1 from 14.8 preop. Anemia due to acute blood loss but likely with a component of dilution from IVF resuscitation. Also suspect some hemoconcentration at the time of the preop CBC. -h/o aortic stenosis, bicuspid aortic valve, SVT, hyperlipidemia- cont home diltiazem with diltiazem prn palpitations -will hold HCTZ for now as patient is normotensive -holding home Lipitor -ECHO 05/05/19 LVEF 60-65% -Commercial Fisherman is Dr. Toure Pulmonary: Adequate spO2 on 2LNC, lungs clear, no concerns, will wean as tolerated - Encourage incentive spirometry GI: S/p rectosigmoid resection and reanastimosis. Denies nausea, vomiting. Tolerating po fluids. Hungry and ordered breakfast. -Advance diet as tolerated. -pericolace/miralax standing with ondansetron prn. -No HI meds due to bowel resection : Wong is in place draining clear,yellow urine. Adequate urine output. I/O has not been updated since 0000, RN notified to rectify. -D/C wong when ambulatory -Monitor intake and output FEN:IVF: LR @100mL/hr- will keep euvolemic to slightly hypervolemic given (good LVEF). Tolerating po fluid -lytes wnl, Mg 2g IV ordered for mild hypoMg Onc: Frozen section revealed malignancy. Final pathology report pending. Follow- up as scheduled in about 3 weeks. Endocrine: Hypothyroid- not on any home meds currently ID: Afebrile, received prophylactic antibiotics preop, no evidence of infection -continue to monitor vital signs. Prophylaxis: - SCDs while in bed, encourage ambulation, incentive spirometry Code Status: Full Code Dispo: Discharge to home when meeting all post-operative milestones, likely in 3-5 days. Misha Ding MD PGY4 07/21/2019 Associated attestation - Gabriela Singh MD - 07/21/2019 2:08 PM EDT Patient seen and examined with the resident. I agree with their assessment and plan with the following additions: Feeling OK this morning. She does have some numbness over her left inner thigh and knee. This knee did give out when she was walking. 5/5 strength in her leg on ab/ad duction and flexion/extension on exam. I am most suspicious for numbness related to positioning or lymph node dissectio n. She will continue to walk with assistance and if weakness is noted will have her work with PT. Otherwise she is advancing slowly. She does have a phone conversation planned with Dr. Vallejo to review operative findings. Will trned labs for at least one more day. Otherwise advance as tolerated. Continue home cardiac meds. * Candelaria Hernandez MD - 07/21/2019 1:46 AM EDT Interval Gynecologic Oncology Postoperative Note: ID: Gabi Luna is a 58 y.o. woman whose PMH is significant for aortic stenosis, bicuspid aortic valve, SVT, htn, anxiety, hypothyroidism, hyperlipidemia who is post operative day #0 s/p total abdominal hysterectomy, bilateral salpingo-oophorectomy, bilateral pelvic and paraaortic lymph adenec nicole, omentectomy, rectosigmoid resection and reanastomosis for large multicystic pelvic mass. S: Ivana reports adequate pain control with MINK RANCHER. Passing gas, not yet had a bowel movement. Wong catheter in place draining straw-colored urine. She has tolerated water and bites of food without nausea or vomiting. She denies chest pain, palpitations, heart racing, cough, SOB, lightheadedness, vision changes, or severe abdominal pain. O: Patient Vitals for the past 8 hrs: BP Temp Temp src Pulse Resp SpO2 07/21/19 0021 97/64 37 ??C (98.6 ??F) Oral 74 15 97 % 07/20/192021 96/65 37 ??C (98.6 ??F) Oral -- 12 96 % Gen: Resting comfortably in bed in NAD Heart: RRR, 2/6 systolic ejection murmur Lungs: CTAB, no wheezes, crackles Abd: Nondistended, +BS, soft, nontender. No rebound or guarding. Incision: Incision well approximated with dominick, no edema or erythema, some ecchymosis at inferior border, modified pressure dressing intact with stable scant shadowing : Wong draining clear, orange-colored colored urine. Extremities: No lower extremity edema. SCDs running I/O: Intake/Output Summary (Last 24 hours) at 07/21/2019 0155 Last data filed at 07/21/2019 0000 Gross per 24 hour Intake 4233 ml Output 1158 ml Net 3075 ml UOP 66 cc/hr over the last 3 recorded hours A/P: Gabi Luna is a 58 y.o. female with a past medical history significant for aortic stenosis, bicuspid aortic valve, SVT, hypertension, hypothyroidism, anxiety, hyperlipidemia who is POD#0 from total abdominal hysterectomy, bilateral salpingo-oophorectomy, bilateral pelvic and paraaortic l ymph adenectomy, omentectomy, rectosigmoid resection and reanastomosis for large cystic pelvic masswhich frozen section showed endometrioid malignancy, recovering well in the immediate post-operative period. Cardiovascular: History of moderate to severe aortic stenosis 2/2 bicuspid aortic valve. ECHO (05/05/2019) LVEF 60 - 65%, mean gradient 39, AV valve area 1.01. At high risk for postoperative cardiovascular compromise. Vital signs with persistent blood pressures in 90s/60s, however remains asymptomatic without compensatory tachycardia. No evidence of volume overload on exam. Good UOP at ~66 cc/hr over last 3 hours. Per anesthesia recommendation, avoid tachycardia and symptomatic hypotension; no evidence at this time. Hemodynamically stable, no evidence of bleeding. No palpitations or tachycardia with diltiazem PRN for palpitations. Will plan to continue to monitor for tachycardia and symptomatic hypotension with low threshold to involve anesthesia/critical care medicine if become hemodynamically unstable or develops chest pain or SOB. - Daily CBC -Cont home diltiazem with diltiazem PRN palpitations - Will hold HCTZ for now but resume likely POD#1 or 2 -holding home Lipitor - LR@ 100 cc/hr Candelaria Hernandez MD PGY-1 Gynecologic Oncology 07/21/2019 * Pasquale Vallejo MD - 07/20/2019 5:06 PM EDT Gynecologic Oncology Post-Op Check Gabi Luna is a 58 y.o. woman whose PMH is significant for aortic stenosis, bicuspid aortic valve, SVT, htn, anxiety, hypothyroidism, hyperlipidemia who is post operative day #0 s/p total abdominal hysterectomy, bilateral salpingo-oophorectomy, bilateral pelvic and paraaortic lymph adenectomy, omentectomy, rectosigmoid resection and reanastomosis for large multicystic pelvic mass. Intraoperative: I: 2.7L crystalloid + albumin O: 250mL ebl + 250mL uop Subjective: Ivana notes she is still feeling crampy pressure/pain in her abdomen but it is improved on MINK RANCHER. She does feel a little sleepy, she has no dizziness or light- headedness but she has not yet been out of bed. No heart racing or palpitations, no chest pain, no shortness of breath or cough, no numbness ortingling in hands/feet. She has had some ice chips and is thirsty for water, no nausea. Physical Exam: Last value Range last 8 hrs Temperature Temp: 37 ??C (98.6 ??F) Temp: [36 ??C (96.8 ??F)-37 ??C (98.6 ??F)] Heart Rate Heart Rate: 68 Heart Rate: [67-79] Blood Pressure BP: 99/69 BP: (92-120)/(53-94) Respiratory Rate Resp: 14 Resp: [11-18] SpO2 SpO2: 98 % SpO2: [96 %-100 %] Intake/Output Summary (Last 24 hours) at 07/20/2019 1706 Last data filed at 07/20/2019 1400 Gross per 24 hour Intake 3300 ml Output 683 ml Net 2617 ml I/O this shift: In: 3300 [I.V.:2700; Other:600] Out: 683 [Urine:433; Blood:250] Post-operative I/O (4hrs) I: 400mL+ O: ~253mL UOP at ~63 mL/hr Gen: Resting comfortably in bed. NAD. Awakes to voice, pleasant and cooperative, answers questions appropriately Neuro: Alert and oriented. Cardiac: RRR. Pulm: CTA b/l. No crackles, wheezes. Abd: Nondistended, +BS- hypoactive but present, soft, nontender. No rebound or guarding. Incision: [place] with small amount staining superiorly, soaked through inferiorly. Removed dressing- incision well approximated with dominick, no edema or erythema, some ecchymosis at inferior border, slight serosanguinous drainage at body fold toward inferior edge of incision, placed folded gauze, ABD pads and tape in modified pressure dressing : Wong draining clear, orange-colored colored urine. Dairy Store Manager: peripad with scant staining Extremities: No lower extremity edema. SCDs- leg cuffs on but no machine present- requested Laboratory (Last 24 Hours): Frozen Section: Left tube and ovary: Carcinoma, favor endometrioid type Final Pathology Pending Assessment and Plan Gabi Luna is a 58 y.o. female with a past medical history significant for aortic stenosis, bicuspid aortic valve, SVT, hypertension, hypothyroidism, anxiety, hyperlipidemia who is POD#0 from total abdominal hysterectomy, bilateral salpingo-oophorectomy, bilateral pelvic and paraaortic lymph adenectomy, omentectomy, rectosigmoid resection and reanastomosis for large cystic pelvic mass which frozen section showed endometrioid malignancy, recovering well in the immediate post-operative period. Neuro: Pain now improved on hydromorphone MINK RANCHER. s/p TAP, ketorolac-> ibuprofen, acetaminophen, with hydromorphone IV and po and MINK RANCHER now ordered. Alert and oriented. Requested heating pad ordered Cardiovascular: Vital signs wnl. Hemodynamically stable, no evidence of bleeding. -Daily CBC -h/o aortic stenosis, bicuspid aortic valve, SVT, hyperlipidemia- cont home diltiazem with diltiazem prn palpitations -will hold HCTZ for now but resume likely POD#1 or 2 -holding home Lipitor -ECHO 05/05/19 LVEF 60-65% -Commercial Fisherman is Dr. Toure Pulmonary: Adequate spO2 on 2LNC, lungs clear, no concerns, will wean as she wakes up more - Encourage incentive spirometry GI: Denies nausea, vomiting. Tolerating ice chips -Advance diet as tolerated. -pericolace standing with ondansetron prn. : Wong is in place draining clear, oranged colored urine. ~63mL/hr; good urine output. -D/C wong when ambulatory -Monitor intake and output FEN:IVF: LR @100mL/hr- will keep euvolemic to slightly hypervolemic given (good LVEF). Tolerating ice chips only at this time -Daily BMP. Onc: Frozen section revealed malignancy. Final pathology report pending. Follow- up as scheduled in about 3 weeks. Endocrine: Hypothyroid- not on any home meds currently ID: Afebrile, received prophylactic antibiotics preop, no evidence of infection -continue to monitor vital signs. Prophylaxis: - SCDs while in bed, encourage ambulation, incentive spirometry Code Status: Full Code Dispo: Discharge to home when meeting all post-operative milestones, likely in 3-5 days. RENU NEELY Gynecologic Oncology [id number] 07/20/2019 Addendum: 07/21/2019: A telephone conference was held today with myself, the patient, her , and Nathaly are present. Due to the COVID [address], I am not able to see the patient postoperatively. I have discussed her care with my partner Dr. James Pino who saw her in person today as well as with Nathaly. Today I reviewed her surgical findings and the implications of an endometrioid ovarian cancer with her and her . I also reviewed healing expectations and likely the need for postoperative chemotherapy. All the patient and her 's questions were answered. PASQUALE VALLEJO MD * Kaylen Jean RN - 07/20/2019 3:15 PM EDT Received report from diego in PACU. Arrived to room 209 at 15:15. A&O x4. VSS. Pain 6/10. IS teaching completed. SCD's ordered. Oriented to use of call sun, bed.chair alarm, and 2 West falls prevention program. Will check MD orders and continue to monitor. * Diego Mcgraw RN - 07/20/2019 2:17 PM EDT 1215 patient arrived to PACU from OR. Report received from Dr. Ding.. 1225 Pt thriving in pain, c/o pressure in the lower pelvic region and left side. Pt asking to have wong removed. Bladder scan performed and no urine noted in bladder. Dr. Ding paged. 1228 - Nancy fell out during patient being restless r/t pain. 1230 - wong flushed at Dr. Ding recommendation and pain medication given see I/O. 1300 - Dr. Ding paged second time r/t pt pain and discomfort. Dr. Ding stated the wong cannot be removed. Recommendation was to give more pain medication and that a MINK RANCHER may be needed. Informed MD that wong was not putting out a lot of urine. 1309 - Bladder scan performed for second time, see I/O 1315 - Dr. iDng ordered MINK RANCHER and obtained, See JUN. 1330 - Pt becoming less restless with MINK RANCHER 1331- Dr. Ding in to see patient and reassured her, the pain she was feeling was normal for this type of procedure. 1340 - Pt snoring. 1430 - Pt calm, opening her eyes sporadically and falling back asleep. Pt taking ice chips without difficulty 1446 -Report called to Kaylen Salazar on . Transportation requested. 1500 - Pt calm and cooperative at this time. Pt continues to doze off and appears comfortable at this time. 1510 - Pt transferred to [facility] via transportation. Pt had all her personal belongings at transfer. White bags of clothes, computer bag, and large cloth bag documented in this encounter H&P Notes * Pasquale Vallejo MD - 07/20/2019 6:40 AM EDT Inpatient DESKTOP ADMINISTRATOR - Admission Interval Note I have reviewed the pre-procedure H&P completed by Dr. Vallejo on 07/12/19. (X) Condition unchanged since H&P originally performed. Interval Note: Patient reports that her health has not changed since her preop visit. She denies any new illnesses, hospitalizations, or medications. Her allergies were reviewed and are as documentedin the chart. The consent was reviewed and the patient agrees to it as signed. Ample time was givenfor the patient to ask questions about the procedure and all questions were answered to the patients satisfaction. The patient has tolerated acetomenophen and ibuprofen in the past. The patient has tolerated Dilaudid for narcotic pain medication in the past. Exam: Cor: RRR, 2/6 systolic murmur Pulm: CTAB Plan: Proceed with scheduled procedure The opioid consent was completed. Misha Ding MD PGY4 07/20/2019 I have seen and examined the patient and reviewed and edited the resident's above history and I agree with the details as written. The assessment and plan were formulated in discussion with me and I agree with them as documented. Pasquale Vallejo MD documented in this encounter Miscellaneous Notes * Plan of Care - Dulce Maria Gonzales RN - 07/24/2019 2:48 AM EDT Problem: Patient Care Overview Goal: Plan of Care Review OUTCOME EVALUATION NOTE: OUTCOME SUMMARY: Ivana has remained stable throughout shift. Reports pain 5/10 in lower abdomen, schedule pain medication administered as well as PRN dilaudid x1. Patient trying to lengthen the time between dilaudid doses while still achieving pain tolerance. Had multiple small formed bowel movements over night, patient reports feeling better after passing stool. VSS, will continue to monitor. PLAN MOVING FORWARD: Pain control Monitor labs and VS Discharge home 07/23 INDIVIDUALIZED FALL PREVENTION INTERVENTIONS: Patient-specific fall risk factors per assessment: [current deficits]: Acute pain, new walker requirement Assistance [level of assistance required for transfers and ambulation]: SBA with walker Supervision [direct monitoring required during toileting and ADLs]: Independent with ADLs Surveillance [continuous indirect monitoring]: Hourly rounding, in room near nurse's station, call light within reach, masimo monitor and bed alarm in use. Patient-specific fall prevention interventions for sensory deficits provided, if applicable: [X] N/A CPG GOAL OUTCOME EVALUATION: Ongoing * Plan of Care - Mercedes Rizzo RN - 07/23/2019 5:04 PM EDT Problem: Patient Care Overview Goal: Plan of Care Review Outcome: Ongoing (Interventions Implemented as Appropriate) 07/23/19 7778 Plan of Care Review Progress progress towards functional goals is fair Coping/Psychosocial Plan Of Care Reviewed With patient OUTCOME EVALUATION NOTE: OUTCOME SUMMARY: vIana is POD #3 for a TAHBSO, ex lap, and bowel resection. Anxious this shift, concern for decr appetite/pain with eating, PA aware. Additional dose of senna/miralax. Continued on PRN dilauded, see MAR, and scheduled tylenol/IBU for incisional pain. Passing flatus. Midline with some serous drainage,ABD pad changed. Patient showered. Patient ambulated around unit with staff this afternoon. Emotional support provided. Plan moving forward: D/C 07/23? Pain mgmt Monitor labs and VS INDIVIDUALIZED FALL PREVENTION INTERVENTIONS: Patient-specific fall risk factors per assessment: [current deficits]: Intermit IV pole, recent surgery, hospitalization Assistance [level of assistance required for transfers and ambulation]: SBA Supervision [direct monitoring required during toileting and ADLs]: Eyes on Surveillance [continuous indirect monitoring]: Purposeful rounding, call sun within reach with appropriate use, masimo, bed alarm Patient-specific fall prevention interventions for sensory deficits provided, if applicable: [X] N/A CPG GOAL OUTCOME EVALUATION: * Plan of Care - Cristóbal Moore OTA - 07/23/2019 12:03 PM EDT Occupational Therapy Treatment Note Treatment Number OT: 2 Patient Dx: Gabi Luna??is a 58 y.o.??woman with??PMH??of??aortic stenosis, bicuspid aortic valve, SVT, HTN, HLD, anxiety??and??hypothyroidism,??who is post operative day??#2??s/p total abdomin al hysterectomy, bilateral salpingo-oophorectomy, bilateral pelvic and paraaortic lymph adenectomy,omentectomy, rectosigmoid resection and reanastomosis for large multicystic pelvic mass; frozen pathology resulting ovarian carcinoma,??favor endometrioid type. Therapy consulted as pt noted to have isolated anterior left knee/thigh numbness, likely related to positioning or lymph node dissection (per Gynecology progress note 07/21) ?? Precautions/Special Considerations: activity as tolerated, midline incision, L knee numbness, LUE PIV ?? Interval History: Per MD note: Occupational therapy consulted for left inner thigh/knee numbness and provided adaptive techniques for mobilization ?? S: My left knee lets go slowly but it's makes me nervous. O: Patient seen for therapeutic activities and demonstrated the following: ?? Self-care: ?? Pt performed toileting activity in her bathroom with close supervision and extended time. Pt wasable to manage her own cloths and hygiene. ?? Performed showering activity with set up, shower bench, LH sponge and extended time. Pt was given distant supervision but was able to perform all activities by herself. ?? UB / LB dressing with set up and extended time while seated EOB. Pt donned LB clothing with figure four technique ?? Functional Mobility: ?? Supine to sitting EOB: supervision with log roll technique to her L side ?? Sit to stand X3: from EOB, toilet and shower bench with RW and CGA / supervision. Pt had one episode of her L knee failing and she had to sit back on the shower bench. Pt sat slowly but felt she couldn't stop herself from sitting. ?? Pt ambulated ~20ft throughout her room and bathroom with RW and CGA with no LOB ?? Cognition: ?? Behavior / Mood: alert and cooperative ?? Alert and oriented to: person, place, time and situation ?? Follows commands: multi step ?? Attention: WFL ?? Safety awareness: WFL ?? Vision:WFL with corrective lenses ?? Endurance:fair ?? Vitals: stable throughout session ?? Strength/ROM:Decreased. Pt was issued red thera band and educated on tricep / chest exercises tobetter use the RW. Pt demonstrated her understanding of the exercises. Pt was also educated on leg extensions to improve her ability to carry weight through her L LE, specifically her L knee. Pain: 5/10 at beginning of session, 4/10 at end of session Education: Pt/family/caregiver education ongoing regarding: Role of occupational therapy/rehabilitation, Transfers, Exercise, Safety, Precautions/Protocol and Activity pacing/Energy conservation. Staff Communication: Patient status, treatment, and mobility recommendations discussed with nursing/other staff. ASSESSMENT: Pt was seen this morning for skilled OT. Session focussed on toileting, showering, UB /LB dressing, energy conservation / safety education and strengthening exercises for UE / LE. Pt demonstrated good improvement with her OT goals and activity tolerance. Pt verbalized and demonstrated her understanding of pacing / safety education and her UE / LE exercises. Pt will benefit from ongoing therapeutic interventions to achieve pt's and therapy goals Anticipated Discharge Disposition: home with assist, home with home health Equipment Recommendations: FWW ?? Daily schedule / Staff Recommendations: OOB to chair for meals, ambulate as tolerated to/from bathroom and into [place] with CGA and FWW ?? Encourage participation in ADL's by providing set up A on tray table and physical assist only asneeded ?? Occupational Therapy Goals: To be achieved by 07/28. Pt will perform seated shower with conditional independence Pt will stand at sink to brush teeth and wash face with conditional independence Pt will dress UB/LB with conditional independence Pt will perform all aspects of toileting with conditional independence Pt will ambulate household distance with conditional independence and use of LRD Pt will perform simple kitchen task with conditional independence Therapy Frequency: 1-3 more visits Total Evaluation Minutes, Occupational Therapy: 55 Pager: [phone] JUAN Shen Occupational Therapy Rehabilitation Department * Plan of Care - Ac Lemon PT - 07/23/2019 11:15 AM EDT 07/23/19 1115 Rehab Evaluation Document Type contact Total Evaluation Minutes, Physical Therapy 0 Met with pt in am, asked to be medicated. Returned to see pt at scheduled time. Pt was tired after showering with OT. Plan to d/c home at 1pm. FWW delivered to pt's room. No PT needs. Spoke with caremgr, message left for METAL ANNEALER * Plan of Care - Jamee Turcios RN - 07/23/2019 3:49 AM EDT Problem: Patient Care Overview Goal: Plan of Care Review Outcome: Ongoing (Interventions Implemented as Appropriate) 07/21/19 0153 07/22/192012 Plan of Care Review Progress progress toward functional goals as expected -- Coping/Psychosocial Plan Of Care Reviewed With -- patient OUTCOME EVALUATION NOTE: OUTCOME SUMMARY: Pt VSS, afebrile, diminished in the bases on RA. No c/o nausea, SOB. Admits to numbness in L knee, team aware. C/o 4-6/10 generalized abdominal pain. DOE Tylenol and Ibuprofen continued. PRN PO Dilaudid 2mg given x1 with good effect. Midline incision clean and intact. Dominick intact. Covered with ABD pad and tape, small amount of senguinous drainage. Ax1 up to toilet, voiding appropriately. Positive bowel sounds and passing flatus. No acute events to report at this time. Will continue to monitor. PLAN MOVING FORWARD: Monitor VS, labs Pain management D/c today 07/22? INDIVIDUALIZED FALL PREVENTION INTERVENTIONS: Patient-specific fall risk factors per assessment: [current deficits]: Generalized weakness, post-op, pain, IV access Assistance [level of assistance required for transfers and ambulation]: Ax1 w/ FWW Supervision [direct monitoring required during toileting and ADLs]: Eyes on Surveillance [continuous indirect monitoring]: Masimo, bed alarm set, call sun within reach, purposeful rounding completed Patient-specific fall prevention interventions for sensory deficits provided, if applicable: [X] N/A CPG GOAL OUTCOME EVALUATION: * Plan of Care - Kassandra Bassett RN - 07/22/2019 3:27 PM EDT Problem: Patient Care Overview Goal: Plan of Care Review Outcome: Ongoing (Interventions Implemented as Appropriate) 07/21/19 0153 07/22/19 0745 Plan of Care Review Progress progress toward functional goals as expected -- Coping/Psychosocial Plan Of Care Reviewed With -- patient OUTCOME EVALUATION NOTE: OUTCOME SUMMARY: Patient stated 4-7/10 pain today. Scheduled tylenol and toradol and PRN dilaudid given with good effect. MINK RANCHER d/c today. Wong d/c today, adequate UOP. No BM this shift, active bowel sounds. Left kneestill has some numbness. She worked with PT/OT today. She ambulated to the and was ambulating inhallway with walker, doing very well. She is tolerating her regular diet, no nausea. Midline incision has some serous drainage, dressing changed x1. Rested between care, transferred to [facility], see other progress note. PLAN MOVING FORWARD: D/c tomorrow INDIVIDUALIZED FALL PREVENTION INTERVENTIONS: Patient-specific fall risk factors per assessment: [current deficits]: Left knee numbess, generalized weakness Assistance [level of assistance required for transfers and ambulation]: 1 assist w/FWW Supervision [direct monitoring required during toileting and ADLs]: Hand son Surveillance [continuous indirect monitoring]: Nurse knowledge exchange, purposeful rounding, environmental modifications (waste basket is out of the path and the IV tubing and cords are free from the floor), fall reduction program in place, lighting adjusted for task, bed in low position, wheels lo cked, side rails up (x2), nonskid socks worn OOB, no restraints, call light is within reach at all times, assistive device, bed/chair alarm, [place] ID band on \ Patient-specific fall prevention interventions for sensory deficits provided, if applicable: [X] Yes glasses CPG GOAL OUTCOME EVALUATION: Goal: Fall Prevention-Safe Patient Handling Outcome: Ongoing (Interventions Implemented as Appropriate) 07/21/19 0153 07/22/19 0745 07/22/19 1100 Daily Care Interventions Self-Care Promotion independence encouraged;safe use of adaptive equipment encouraged;BADL personalroutines maintained;BADL personal objects within reach -- -- Armstrong Fall Risk History of Falling -- 0 -- Secondary Diagnosis -- 15 -- Ambulatory Aids -- 15 -- Intravenous Therapy/Heparin/Saline Lock -- 20 -- Gait/Transferring -- 0 -- Mental Status -- 0 -- Score -- 50 -- OTHER Armstrong Fall Risk -- High -- Restraint Interventions Safety Promotion/Fall Prevention -- activity supervised;elopement precautions initiated;fall prevention program maintained;nonskid shoes/slippers when out of bed;safety round/check completed -- Positioning Body Position -- -- supine Activity Activity Type -- -- -- Activity Assistance Provided -- -- -- Assistive Device Utilized -- -- -- 07/22/19 1500 Daily Care Interventions Self-Care Promotion -- Armstrong Fall Risk History of Falling -- Secondary Diagnosis -- Ambulatory Aids -- Intravenous Therapy/Heparin/Saline Lock -- Gait/Transferring -- Mental Status -- Score -- OTHER Armstrong Fall Risk -- Restraint Interventions Safety Promotion/Fall Prevention -- Positioning Body Position -- Activity Activity Type activity adjusted per tolerance;ambulated in [place];up in chair;ambulated to bathroom Activity Assistance Provided assistance, 1 person Assistive Device Utilized front-wheel walker Goal: Infection Control Outcome: Ongoing (Interventions Implemented as Appropriate) 07/22/19 0745 Safety Interventions Isolation Precautions standard precautions maintained Infection Prevention environmental surveillance performed Coping Strategies Supportive Measures active listening utilized Goal: Discharge Needs Assessment Outcome: Ongoing (Interventions Implemented as Appropriate) 07/22/19 0252 Discharge Needs Assessment Concerns To Be Addressed adjustment to diagnosis/illness concerns;coping/stress concerns;grief and loss concerns Goal: Interdisciplinary Rounds/Family Conf Outcome: Ongoing (Interventions Implemented as Appropriate) 07/21/19 0153 Interdisciplinary Rounds/Family Conf Participants patient;nursing * Plan of Care - Love Crooks OT - 07/22/2019 11:32 AM EDT Occupational Therapy Evaluation Patient profile: Gabi Luna is a 58 y.o. woman with PMH of aortic stenosis, bicuspid aortic valve, SVT, HTN, HLD, anxiety and hypothyroidism, who is post operative day #2 s/p total abdominal hysterectomy, bilateral salpingo- oophorectomy, bilateral pelvic and paraaortic lymph adenectomy, omentectomy, rectosigmoid resection and reanastomosis for large multicystic pelvic mass; frozen pathology resulting ovarian carcinoma, favor endometrioid type. Therapy consulted as pt noted to have isolated anterior left knee/thigh numbness, likely related to positioning or lymph node dissection (per Gynecology progress note 4/2) Past Medical History: Diagnosis Date ??? Allergic [...] vagal maneuvers, and medication for breakthrough ??? Subclinical hypothyroidism ??? SVT (supraventricular tachycardia) Past Surgical History: Procedure Laterality Date ??? APPENDECTOMY 08/26/2013 ??? SECTION ??? PRO EDER SALP-OOPH W/OMENTECT, FRDEI, RAD DISSECT N/A 07/20/2019 @HYSTERECTOMY, FREDI, BSO, DEBULKING (WRVU 34.13) performed by Pasquale Vallejo MD at [facility] MAIN OR Social History: Patient lives with her Home Setup: One level home with 1 QUEENIE. Bathroom with walk-in shower, shower chair and grab bar. DME: none Baseline ADL/Mobility: Pt is fully independent with ADL/IADL tasks at baseline and ambulates without assist. 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 She reports that her is able to assist with ADLs and cooking/cleaning as needed at home. Precautions/Special Considerations: activity as tolerated, midline incision, L knee numbness, LUE PIV Subjective: Thank you so much! I feel much better today. Objective: Seen today for OT evaluation. Cognitive Status/Behavior: ?? Behavior / Mood: alert and cooperative ?? Alert and oriented to: person, place, time and situation ?? Follows commands: multi step ?? Attention: WFL ?? Safety awareness: WFL Vision & Perception: WNL ?? corrective lenses for reading Communication: WFL Range of motion, strength, coordination: Hand dominance: right Bilateral UEs are within functional limitations- reported mild discomfort in L shoulder (L flank bruising, likely 2' OR positioning) Sensation: reports numbness in L ayden Activities of Daily Living: Self-feeding: independent after set-up Grooming: independent after set-up Dressing: pt able to don underwear and pants with Rose, educated pt on adaptive strategies for LB dressing Bathing: Toileting: pt able to transfer on/off commode with CGA and FWW, independent with lazara-care, assist with clothing management Transfer: CGA with FWW Hygiene: Functional Mobility: Supine to sit: Rose with HOB elevated Sit to stand: CGA with FWW Ambulation: ~15 ft with CGA and use of FWW Stand to sit: CGA with FWW Sit to supine: not observed as pt left upright in chair- alarm on, RN aware Balance: Sitting balance: good Standing balance: good with FWW Vitals: WNL on RA Pain: reported increased pain with mobility- did not rate Education: patient have been educated on Role of occupational therapy/rehabilitation, Transfers, Assistive device/technique, ADL, Positioning, Safety, Functional Mobility, Activity pacing/Energy conservation and Recommendations and verbalize understanding. Patient status, treatment, and mobility recommendations discussed with nursing. Assessment: Pt has been seen for occupational therapy evaluation. Gabi Luna presents with the following performance skill deficits and client factors: increased pain, decreased activity tolerance, decreased flexibility/ROM and sensory deficits. These performance deficits have led to activity limitations and participation restrictions in the following areas of occupation: dressing, bathing, toileting, transfers/mobility, rest/sleep, home management, work, leisure, driving, community mobility and social participation. Pt pleasant and cooperative, very motivated to mobilize with therapy.Pt tolerated transfer on/off commode as well as short distance ambulation to chair with CGA and useof FWW. Educated pt on adaptive strategies for ADLs, and pt demonstrated ability to don pants and underwear with Rose and use of adaptive techniques. At this time, participation and independence withADl/IADL tasks most limited by pain and LLE numbness. Pt is fully independent at baseline and wouldbenefit from further inpatient OT interventions to address performance deficits and maximize partici pation and independence with occupations of daily living. Anticipate that pt will progress to discharge home with family assist and VNA services when medically ready. Equipment needs at discharge: TBD: ? FWW Anticipated Discharge Disposition: home with assist(?VNA OT) Other Recommendations: ?? OOB to chair for meals, ambulate as tolerated to/from bathroom and into [place] with CGA and FWW ?? Encourage participation in ADL's by providing set up A on tray table and physical assist only asneeded Goals: To be achieved by 07/28. Pt will perform seated shower with conditional independence Pt will stand at sink to brush teeth and wash face with conditional independence Pt will dress UB/LB with conditional independence Pt will perform all aspects of toileting with conditional independence Pt will ambulate household distance with conditional independence and use of LRD Pt will perform simple kitchen task with conditional independence Plan: OT: Therapy Frequency: 1-3 more visits Planned OT interventions: Transfers, Assistive device/technique, Adaptive equipment training, ADL, Positioning, Safety, Functional Mobility, Activity pacing/Energy conservation, Home Management, Recommendations and Discharge planning. Total Evaluation Minutes, Occupational Therapy: 40(moderate complexity eval) 2017 OT Evaluation Code Rationale: ?? Diagnosis & Pertinent Co-Morbidities affecting Plan of Care: see PMHx ?? Occupational Profile & Client History: Brief Expanded Extensive x ?? Assessment of Occupational Performance: 1-3 performance deficits 3-5 performance deficits x 5 + performance deficits ?? Clinical Decision Making: Low Moderate High x Clinical decision making of moderate complexity using standardized patient assessment instrument and measurable assessment of functional outcome. Pager: [phone] Love Crooks OT 07/22/2019 Occupational Therapy Rehabilitation Department * Plan of Care - Shani Monsivais, PT - 07/22/2019 11:00 AM EDT Physical Therapy Note Treatment Number PT: 2 Patient profile: 58 y.o.??woman whose PMH is significant for aortic stenosis, bicuspid aortic valve, SVT, htn, anxiety, hypothyroidism, hyperlipidemia who is post operative day #1??s/p total abdominal hysterectomy, bilateral salpingo- oophorectomy, bilateral pelvic and paraaortic lymph adenectomy, omentectomy, rectosigmoid resection and reanastomosis for large multicystic pelvic mass Interval History: [place], pt endorses continued numbness to L knee Social History: , lives in a one level home with one QUEENIE, walk in shower with a built in seat, has 2 english shepherds, 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 Pt to utilize FWW and 1 assist for ambulation and transfers with nursing. ?? Please encourage up to chair for meal times as able. ?? Pt encouraged to ambulate frequently with staff, getting into the bathroom for toileting and walking out in the [place] >/= 3 times daily as able. Subjective: I just don't want my knee to buckle. Objective: Patient seen for physical therapy and demonstrated the following: Pain: Pt had no c/o pain during session. Vital Signs: VSS throughout session. Bed mobility: Supine to Sit: supervisionx1 with HOB slightly elevated Transfers: Sit to Stand: CGAx1 with FWW Stand to Sit: CGAx1 with FWW Bed to Chair: CGAx1 with FWW Gait: Distance: 20' Device Used: FWW Level of Assist: CGAx1 Gait Mechanics: reduced brandon, step-length decreased (B), swing-through gait and weight shifting ability decreased to the (L) Stairs: NT Balance: Static Sitting: good Dynamic Sitting: good Static Standing: fair Dynamic Standing/Gait: fair Therapeutic Exercise: Pt educated on the importance of getting OOB, ambulating in hallway with staff as able, and sittingupright in chair frequently throughout the day. Pt verbalized understanding. Pt left in bedside recliner chair, with all needs met, with call sun in reach and with chair alarmactive RN updated following visit. Education: patient has been educated on Bed mobility, Transfers, Assistive device/technique, Exercise, Breathing exercises, Positioning, Safety , Precautions/protocol, Gait , Role of therapy and Discharge planning and verbalizes understanding. Patient status, treatment, and mobility recommendations discussed with nursing. Assessment: Gabi Luna was seen today for physical therapy treatment session for continuation of POC. Upon arrival, pt initially reclined in bed, agreeable to participate. Pt performed bed mobility with supervisionx1 and HOB slightly elevated. Pt performed transfers and gait with FWW and CGAx1. Anticipate pt will be able to return home with assist and home health when medically ready. Willplan to see again to practice stairs and progress gait as able. Pt will benefit from ongoing therapeutic interventions to achieve therapy goals. Discharge Recommendations: Based on the current findings, Anticipated Discharge Disposition: home with assist, home with home health when medically ready for hospital discharge. Consult Recommendations: No other consults recommended at this time. Equipment needs: FWW Physical Therapy Goals: to be achieved by to be achieved by 08/09/19 1. Pt. to demonstrate knowledge of safety limitations and precautions and will appropriately request assistance for functional activities and to mobilize. 2. Pt. to demonstrate understanding of appropriate LE strengthening exercises. 3. Pt. to perform bed mobility with modified independence, log roll. 4. Pt. to perform sit to stand transfers with modified independence using a front wheeled walker. 5. Pt. to ambulate 25 feet with supervision using a a front wheeled walker. 6. Pt. to ambulate up/down 1 step/stairs using front wheeled walker with supervision. 7. Family or caregiver to demonstrate understanding of therapeutic interventions to support the care of the patient. All goals ongoing 07/22/19 Plan: Therapy Frequency: 1-3 more visits for therapy as outlined in initial evaluation. Patient agrees with plan as stated. Time IN / OUT: 10:15 - 11:00 Total Evaluation Minutes, Physical Therapy: 40(TE-Fx3) Shani Monsivais PT, DPT Pager: [phone] Physical Therapy Inpatient Rehabilitation Department * Plan of Care - Hugh Lombardi RN - 07/22/2019 2:59 AM EDT Problem: Patient Care Overview Goal: Plan of Care Review Outcome: Ongoing (Interventions Implemented as Appropriate) 07/21/19 0153 07/21/192127 Plan of Care Review Progress progress toward functional goals as expected -- Coping/Psychosocial Plan Of Care Reviewed With -- patient OUTCOME EVALUATION NOTE: ?? OUTCOME SUMMARY: ?? Pain managed with MINK RANCHER, tylenol and PO dilaudid and Ibuprofen. Patient tolerating a regular diet. She denies any nausea/emesis, SOB, or dizziness. Patient expressed concerns of her left knee. Nursing assessed and found area to be warmer the right knee with a slightly weaker pedal pulse present. Gynecology team paged and subsequently assessed patient at the bedside. No new orders or changes to her plan of care at this time. Urine output WNL. She is producing an average of 100ml/hr. Abdominal incision remains covered by abdominal pad dressing. Moist drainage seeping from distal part of her incision. Additional abd pad used to reinforce dressing in place. Care clustered to promote rest. ?? 07/21 Update: Mag level: 0.84 WNL Potassium: 3.8 WNL H/H: 10.2/30.8 L ?? PLAN MOVING FORWARD: ?? Measure VS, assess patients level of sedation r/t MINK RANCHER, and record patient's I+Os q4hr. Weights measured daily. Encourage IS use and PO fluid intake. Cluster care to promote rest. ?? INDIVIDUALIZED FALL PREVENTION INTERVENTIONS: High Fall Risk ?? Patient-specific fall risk factors per assessment: [current deficits]: ??Patient's current risk factors include: abdominal pain, PIV, SCDs, MINK RANCHER and PO Opioid use for pain management, wong, multiple incisions, uses an ambulatory aid and generalized weakness related to current medical status. ?? Assistance [level of assistance required for transfers and ambulation]: 2 assist with FWW ?? Supervision [direct monitoring required during toileting and ADLs]: Eyes on ?? Surveillance [continuous indirect monitoring]: Bed/Chair alarm, yellow fall band, NKE at bedside, purposeful rounding, environmental modification (floor free of clutter, tubing secured), bed in low position, lighting adjusted for task/safety, nonskid slippers when out of bed, wheels locked, call light in reach, upper side-rails raised X2, ID bands on. ?? Patient-specific fall prevention interventions for sensory deficits provided, if applicable: [X] Yes, glasses ? CPG GOAL OUTCOME EVALUATION: * Plan of Care - Kassandra Bassett RN - 07/21/2019 4:01 PM EDT Problem: Patient Care Overview Goal: Plan of Care Review Outcome: Ongoing (Interventions Implemented as Appropriate) 07/21/19 0153 07/21/19 0901 Plan of Care Review Progress progress toward functional goals as expected -- Coping/Psychosocial Plan Of Care Reviewed With -- patient OUTCOME EVALUATION NOTE: OUTCOME SUMMARY: Patient stated 3-09/28 pain today in abdomen, MINK RANCHER in use, scheduled tylenol and toradol, PRN PO dilaudid given x2. Goal is to d/c MINK RANCHER tomorrow. Patient UOP via wong averages to 30mL per hour, PO intake encouraged and IVF infusing. She is tolerating regular diet, No BM this shift. She has not passedflatus. She is experiencing some numbness in her left knee and thigh, MD aware. Patient was OOB in chair today, d/t numbness her left knee gave out on her while transitioning from bed to chair. PT worked with her today. She could not ambulate in the [place] d/t numbness but did ambulate in the room. She is resting between care, will continue to monitor. PLAN MOVING FORWARD: D/c MINK RANCHER D/c Herminio HAQUE Pain control INDIVIDUALIZED FALL PREVENTION INTERVENTIONS: Patient-specific fall risk factors per assessment: [current deficits]: LLE numbness, generalized weakness, IVF infusing Assistance [level of assistance required for transfers and ambulation]: 1-2 assist w/FWW Supervision [direct monitoring required during toileting and ADLs]: Eyes on Surveillance [continuous indirect monitoring]: Nurse knowledge exchange, purposeful rounding, environmental modifications (waste basket is out of the path and the IV tubing and cords are free from the floor), fall reduction program in place, lighting adjusted for task, bed in low position, wheels lo cked, side rails up (x2), nonskid socks worn OOB, no restraints, call light is within reach at all times, assistive device, bed/chair alarm, [place] ID band on Patient-specific fall prevention interventions for sensory deficits provided, if applicable: [X] Yes glasses CPG GOAL OUTCOME EVALUATION: Goal: Fall Prevention-Safe Patient Handling Outcome: Ongoing (Interventions Implemented as Appropriate) 07/21/19 0153 07/21/19 0907/21/19 1500 Daily Care Interventions Self-Care Promotion independence encouraged;safe use of adaptive equipment encouraged;BADL personalroutines maintained;BADL personal objects within reach -- -- Armstrong Fall Risk History of Falling -- 0 -- Secondary Diagnosis -- 15 -- Ambulatory Aids -- 15 -- Intravenous Therapy/Heparin/Saline Lock -- 20 -- Gait/Transferring -- 10 -- Mental Status -- 0 -- Score -- 60 -- OTHER Armstrong Fall Risk -- High -- Restraint Interventions Safety Promotion/Fall Prevention -- activity supervised;elopement precautions initiated;fall prevention program maintained;nonskid shoes/slippers when out of bed;safety round/check completed -- Positioning Body Position -- -- up in chair Activity Activity Type -- activity adjusted per tolerance;up in chair -- Activity Assistance Provided -- assistance, 1 person -- Assistive Device Utilized -- none -- Goal: Infection Control Outcome: Ongoing (Interventions Implemented as Appropriate) 07/21/19 0901 Safety Interventions Isolation Precautions standard precautions maintained Infection Prevention environmental surveillance performed Coping Strategies Supportive Measures active listening utilized Goal: Discharge Needs Assessment Outcome: Ongoing (Interventions Implemented as Appropriate) 07/21/19 1550 Discharge Needs Assessment Concerns To Be Addressed adjustment to diagnosis/illness concerns Goal: Interdisciplinary Rounds/Family Conf Outcome: Ongoing (Interventions Implemented as Appropriate) 07/21/19 0153 Interdisciplinary Rounds/Family Conf Participants patient;nursing * Plan of Care - Ac Lemon, PT - 07/21/2019 3:29 PM EDT Physical Therapy Evaluation Patient profile: 58 y.o. woman whose PMH is significant for aortic stenosis, bicuspid aortic valve,SVT, htn, anxiety, hypothyroidism, hyperlipidemia who is post operative day #1 s/p total abdominal hysterectomy, bilateral salpingo- oophorectomy, bilateral pelvic and paraaortic lymph adenectomy, omentectomy, rectosigmoid resection and reanastomosis for large multicystic pelvic mass Patient with the following active problems: Past Medical History: Diagnosis Date ??? Allergic [...] vagal maneuvers, and medication for breakthrough ??? Subclinical hypothyroidism ??? SVT (supraventricular tachycardia) Past Surgical History: Procedure Laterality Date ??? APPENDECTOMY 08/26/2013 ??? SECTION ??? PRO EDER SALP-OOPH W/OMENTECT, FREDI, RAD DISSECT N/A 07/20/2019 @HYSTERECTOMY, FREDI, BSO, DEBULKING (WRVU 34.13) performed by Pasquale Vallejo MD at 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 Pt. to utilize FWW and assist of 2for ambulation and transfers with nursing. ?? Please encourage up to chair for meal times as able. ?? Pt encouraged to ambulate frequently with staff, getting into the bathroom for toileting and walking out in the [place] >/= 3 times daily as able. Subjective: ??? My knee is numb?? They said it could take a while for it to recover Objective: Pt seen for evaluation today. Pain: 5/10, dilaudid and MINK RANCHER Vital Signs: SpO2: 96 % on RA, IS to 1500 ml HR: 70-74 BP: 103/65 in sitting, improved from this am per pt Mental Status: alert, oriented to person, place, and time Vision: WNL Skin: midline incision, IVs, lap sites, mild abdominal edema Musculoskeletal: ROM: decreased trunk Strength: UEs and RLE WNL, L knee good quad sets, performed LAQs in sitting, took wt on LLE with use of FWW Sensation: LT decreased proximal thigh to below L patella, LT intact in L foot Bed Mobility: Supine to Sit: up with nursing Sit to Supine: min asst to LEs, Transfers: Sit to Stand: min asst of 2 from chair to FWW Stand to Sit: min asst of 2 and cues to turn fully and back up to bed Bed to Chair: assist of 2 to chair, LLE gave out this morning per RN, Min asst of 2 in pm with FWW Gait: Distance: a few steps from bed to chair Device used: FWW Level of assist: Min asst of 2 Gait mechanics: able to wt bear on LLE with use of FWW without buckling, decreased sensation in RLE Stairs: NT, has one step to enter her home Balance: good sitting balance, fair standing balance due to impaired L knee sensation, using FWW Therex: quad sets, ankle pumps, IS, splinted cough Education: patient has been educated on Bed mobility, Transfers, Assistive device/technique, Exercise, Breathing exercises, Positioning, Safety , Precautions/protocol, Gait , Role of therapy and Discharge planning and verbalizes understanding. Patient status, treatment, and mobility recommendations discussed with nursing. Assessment: Gabi Luna was seen today for physical therapy evaluation. Pt presents with abdominal incision, pain, mild edema, decreased sensation in L knee, cardiac impairment, impaired abdominal integument, decreased balance, impaired mobility tasks, impaired gait, decreased activity tolerance. Pt has good quad contractions and can stand on L LE with use of FWW but was limited with gait due to L knee numbness. Will progress gait activities, will likely need the FWW for discharge. The pt would benefit from skilled therapy services while in the hospital to maximize functional abilities. Discharge Recommendations: Anticipated Discharge Disposition: (P) home with assist, home with home health Consult Recommendations: Occupational therapy consult Equipment needs: Rolling walker Goals: To be achieved by 4/5: 1. Pt. to demonstrate knowledge of safety limitations and precautions and will appropriately request assistance for functional activities and to mobilize. 2. Pt. to demonstrate understanding of appropriate LE strengthening exercises. 3. Pt. to perform bed mobility with modified independence, log roll. 4. Pt. to perform sit to stand transfers with modified independence using a front wheeled walker. 5. Pt. to ambulate 25 feet with supervision using a a front wheeled walker. 6. Pt. to ambulate up/down 1 step/stairs using front wheeled walker with supervision. 7. Family or caregiver to demonstrate understanding of therapeutic interventions to support the care of the patient. Plan: Therapy Frequency: (P) 1-3 more visits for therapy including bed mobility training, gait training, home exercise program, patient/family education, strengthening and transfer training. Patient/family understand and agree with plan as stated above. 2017 PT Evaluation Code Rationale: ?? Diagnosis & Pertinent Co-Morbidities, personal factors, and present illness affecting Plan of Care: (see above); Additional personal factors or co- morbidities that impact plan: ?? Total # of Factors: 0 1-2 3+ x ?? Examination of body system impairments, functional limitations and behaviors, and/or participation restrictions. Addressing 1-2 elements Addressing 3 + elements Addressing 4 + elements x ?? Clinical presentation: See assessment above. Stable/Uncomplicated Evolving/Fluctuating Symptoms Unstable/Unpredictable x ?? Clinical decision making of moderate complexity based on pt's functional performance as outlinedin this evaluation. Time IN / OUT: 14:54-15:29 Total Evaluation Minutes, Physical Therapy: (P) 35 AC LEMON, PT Pager: [phone] Physical Therapy Inpatient Rehabilitation Department * Initial Assessments - Katelyn Winkler, RN - 07/21/2019 3:09 PM EDT Office of Care Management??Assessment ? Medical record reviewed. Plan of care and patient status discussed with direct care RN and/or Care Team in multidisciplinary rounds. Unable to reach patient via phone. ?? Screening: ?? 58 y.o. female here for Pelvic mass requiring surgery . ?? Present on Admission: ??? Pelvic mass ?? Patient has not been admitted to a hospital within the last 30 days. ?? Patient receiving hospital care under Inpatient status. Admission order reviewed. ?? Primary Insurance on file: MVP Secondary Insurance on file:??N/A ?? Primary care provider on file: Evelyne Hunt, [employer] [facility] [phone] ?? Advance Directive on file and Code Status: <no information>, Full Code, ?? If AD's have not been completed Sandoval would be surrogate decision maker [place]. ?? Any patient receiving care at [facility] must abide by [place] law. The hierarchy for surrogate decision making [...] (f) Any grandparent of the patient. (g) ??Any adult aunt, uncle, niece, or nephew of the patient. (h) ??A close friend of the patient. (i) ?The agent with financial power of criminal attorney or a conservator appointed in accordance with RSA 464-A. (j) The guardian of the patient???s estate. ?? Patient???s Functional Status: Independent ?? Living Situation: ?? [address] [facility] [address] ?? Supports: ?? Assessment:? Patient with no apparent RNCM/SW needs at this time. No housing, transportation, insurance, resources concerns identified at this time. Supports in place to achieve a safe post-hospital transition. No identified barriers to accessing necessary care and/or follow-up after discharge. ?? Plan:?? Patient to d/c to home via private car when medically ready.? cow buyer/Decal Transferrer will continue to follow patient???s progress and remain available if situation changes for coordination of care, psychosocial support and/or discharge planning. ?? Katelyn Winkler RN Pager [phone] Extension [phone] * Plan of Care - Hugh Lombardi RN - 07/21/2019 2:01 AM EDT Problem: Patient Care Overview Goal: Plan of Care Review Outcome: Ongoing (Interventions Implemented as Appropriate) 07/20/19205707/21/19 0153 Plan of Care Review Progress -- progress toward functional goals as expected Coping/Psychosocial Plan Of Care Reviewed With patient -- OUTCOME EVALUATION NOTE: OUTCOME SUMMARY: Pain managed with MINK RANCHER, tylenol, Ketoralac, and PO dilaudid. Patient tolerating a regular diet. She denies any nausea/emesis, SOB, or dizziness. Patient intermittently hypotensive, gynecology team aware. Nursing closely monitored overnight and patient remained asymptomatic. Urine output remains orange due to previous pyridium administration. She is producing an average of 50ml/hr. Abdominal incision remains covered by abdominal pad dressing. No signs of drainage or break through bleeding noted during assessment. Patient slept well overnight. Care clustered to promote rest. Update: Mag level: 0.60 Repleated with 2g/50ml at 0641am PLAN MOVING FORWARD: Measure VS, assess patients level of sedation r/t MINK RANCHER, and record patient's I+Os q4hr. Weights measured daily. Encourage IS use and PO fluid intake. Cluster care to promote rest. INDIVIDUALIZED FALL PREVENTION INTERVENTIONS: High Fall Risk Patient-specific fall risk factors per assessment: [current deficits]: ??Patient's current risk factors include: abdominal pain, PIV, SCDs, MINK RANCHER and PO Opioid use for pain management, wong, multiple incisions, uses an ambulatory aid and generalized weakness related to current medical status. Assistance [level of assistance required for transfers and ambulation]: 1 assist with FWW Supervision [direct monitoring required during toileting and ADLs]: Eyes on Surveillance [continuous indirect monitoring]: Bed/Chair alarm, yellow fall band, NKE at bedside, purposeful rounding, environmental modification (floor free of clutter, tubing secured), bed in low position, lighting adjusted for task/safety, nonskid slippers when out of bed, wheels locked, call light in reach, upper side-rails raised X2, ID bands on. Patient-specific fall prevention interventions for sensory deficits provided, if applicable: [X] Yes, glasses CPG GOAL OUTCOME EVALUATION: * Op Note - Pasquale Vallejo MD - 07/20/2019 4:46 PM EDT [facility] Operative Note Patient Name: Gabi Luna : [id number] MR#: [id number] Case Date: 07/20/2019 Surgeon: Surgeon(s) and Role: * Pasquale Vallejo MD - Primary * Misha Ding MD - Resident Preoperative diagnosis: multicystic pelvic masses concerning for ovarian malignancy Postoperative diagnosis: Carcinoma of the left ovary, frozen section favors endometrioid type Procedure(s) (LRB): @HYSTERECTOMY, FREDI, BSO, DEBULKING (WRVU 34.13) (N/A) Procedure per surgeon: 1. Bilateral salpingo-oophorectomy with total abdominal hysterectomy and staging for ovarian cancer 2. Pelvic and para-aortic lymphadenectomy 3. Infracolic omentectomy 4. Rectosigmoid resection and re-anastomosis 5. Peritoneal biopsies, washings, diaphragmatic scraping 6. Pelvic peritonectomy Findings: On EUA: Large cystic pelvic mass palpated in the left pelvis with minimal mobility On laparotomy: Approximately 100 mL of clear blood-tinged ascites. An approximately 8 cm, left, multicystic ovarian mass was noted along with tumor studding over the anterior and posterior [id number]. The right ovary appeared irregular and multicystic with a greatest dimension of approximately 4 cm. Tumor studding extended on the anterior surface of the rectosigmoid colon. The remainder of the colon and the small bowel were examined and no evidence of disease was noted. Bilateral paracolic gutters and omentum were free of visible or palpable disease. The upper abdomen was palpated and no evidence of disease was noted. Frozen section: Left tube and ovary, carcinoma, favor endometrioid type Residual disease: None, R0 Anesthesia: General Estimated Blood Loss: 250 mL Specimens removed during surgery: Order Name Source Comment Collection Info Order Time CYTOPATHOLOGY NON-GYNECOLOGICAL Pelvic Washings taken intra-op 07/20/2019 8:33 AM Pertinent clinical data and significant therapy: PELVIC MASS Clinical impression: PELVIC MASS Procedure Type: Other (please specify in Comments Field below) Specimen Type: Pelvic wash SPECIMEN TO PATHOLOGY O.R. [id number] Frozen PELVIC MASS Left Tube and Ovary biopsy No 07/20/2019 8:52 AM Time specimen removed from patient: 8:52 AM Number of tissue samples (in container) 1 Biospecimen to store? No SPECIMEN TO PATHOLOGY PELVIC MASS Uterus, Cervix, Right Tube and Ovary, Anterior-Posterior Pelvic Peritoneum biopsy No 07/20/2019 9:29 AM Time specimen removed from patient: 9:29 AM Number of tissue samples (in container) 1 Biospecimen to store? No SPECIMEN TO PATHOLOGY PELVIC MASS Anterior Pelvic Peritoneum biopsy No 07/20/2019 9:36 AM Time specimen removed from patient: 9:35 AM Number of tissue samples (in container) 1 Biospecimen to store? No SPECIMEN TO PATHOLOGY PELVIC MASS Tumor on the surface of the recto-sigmoid colon below pelvic rim biopsy No 07/20/2019 9:36 AM Time specimen removed from patient: 9:36 AM Number of tissue samples (in container) 1 Biospecimen to store? No SPECIMEN TO PATHOLOGY PELVIC MASS Left Pelvic Lymph Nodes biopsy No 07/20/2019 9:51 AM Time specimen removed from patient: 9:51 AM Number of tissue samples (in container) 1 Biospecimen to store? No SPECIMEN TO PATHOLOGY PELVIC MASS Right Pelvic Lymph Nodes biopsy No 07/20/2019 9:54 AM Time specimen removed from patient: 9:54 AM Number of tissue samples (in container) 1 Biospecimen to store? No SPECIMEN TO PATHOLOGY PELVIC MASS Omentum biopsy No 07/20/2019 10:03 AM Time specimen removed from patient: 10:03 AM Number of tissue samples (in container) 1 Biospecimen to store? No SPECIMEN TO PATHOLOGY PELVIC MASS Lazara-Aortic Lymph Nodes biopsy No 07/20/2019 10:24 AM Time specimen removed from patient: 10:24 AM Number of tissue samples (in container) 1 Biospecimen to store? No SPECIMEN TO PATHOLOGY PELVIC MASS Left Para Colic Gutter BX biopsy No 07/20/2019 10:33 AM Time specimen removed from patient: 10:29 AM Number of tissue samples (in container) 1 Biospecimen to store? No SPECIMEN TO PATHOLOGY PELVIC MASS Right Para Colic Bx biopsy No 07/20/2019 10:33 AM Time specimen removed from patient: 10:30 AM Number of tissue samples (in container) 1 Biospecimen to store? No SPECIMEN TO PATHOLOGY PELVIC MASS Recto-Sigmoid Dissection biopsy No 07/20/2019 10:48 AM Time specimen removed from patient: 10:47 AM Number of tissue samples (in container) 1 Biospecimen to store? No SPECIMEN TO PATHOLOGY Pelvic Mass Mucosal Sigmoid Rectal Donuts biopsy No 07/20/2019 11:15 AM Time specimen removed from patient: 11:14 AM Number of tissue samples (in container) 1 Biospecimen to store? No CYTOPATHOLOGY NON-GYNECOLOGICAL 07/20/2019 11:42 AM Pertinent clinical data and significant therapy: Pelvic Mass Clinical impression: Pelvic Mass Procedure Type: Other (please specify in Comments Field below) Specimen Type: Other, add description and source of specimen in comments Description and source of specimen: Diaphragmatic Scrapings Drains: Wong to gravity draining clear yellow urine Surgical Closure: Primary Closure - skin incision is completely closed without any wires, aravind, drains or other devices Disposition: awakened from anesthesia, extubated and taken to the recovery room in a stable condition, having suffered no apparent untoward event. Condition: doing well without problems (Please see the Surgical Encounter Summary for any Implant and Specimen details pertinent to this patient.) Infection Bundle used? Yes Infection present at time of surgery?: No Chlorhexidine wipes in Same Day prior to surgery: Yes Expected bowel surgery? No. Fingerstick glucose checked in Same Day: Yes Chlorhexidine-alcohol skin prep: Yes Pre-op IV antibiotics: Other: Levofloxacin and metronidazole due to penicillin anaphylaxis Vaginal prep: Yes. Chlorhexidine Open case? Yes. 10% Povidone Iodine wound Irrigation: Yes Sterile closure tray: Yes New suction/cautery for closure: Yes Gown/glove change for closure: Yes Re-draping for closure: Yes HPI/Surgical Indications: Gabi J Bertolini is a 58 y.o. postmenopausal woman who presented with a symptomatic multicystic pelvic mass in the setting of early satiety, abdominal bloating, and pain. A preoperative CA125 tumor marker was 350. She was counseled on the concern for an ovarian malignancy and recommended definitive surgical management. She presents today for her scheduled surgery. Procedure Description: The patient was identified, consent was reaffirmed. She was taken to the operating room where a transverse abdominis plane block was administered by the acute pain service after anesthesia was administered. She was positioned to lithotomy using yellowfin stirrups with her arms tucked at her sides padded with gelpads. An exam under anesthesia was conducted. An antiseptic preparation of the abdomen, perineum, and vagina was performed. The patient was sterilely draped. A Wong catheter was inserted into the urinary bladder for drainage. A surgical pause was performed, correctly identifying the patient, intended procedures, equipment, antibiotic and DVT prophylaxis. ?? A vertical incision was made, beginning at the symphysis pubis, and extending up and around the umbilicus to accommodate the necessary procedures. The celiotomy was performed sharply, avoiding the underlying bowel and bladder. The ascites was collected along with pelvic washings and sent for permanent cytology. Manual exploration was done with the findings as above. A Bookwalter retractor was assembled and used to assist in exposure. The bowel was packed free of the pelvis to the extent possible with moistened laparotomy tapes. The left cornu of the uterus was grasped with a Esvin clamp. The left pelvic peritoneum was opened, lateral to the ovarian vessels, to develop an adequate space in the retroperitoneum, to easily identify the ureter, which was avoided during the subsequently described procedures. The left ovarian vessels were clamped divided and ligated. Using a LigaSure device, the fallopian tube, and utero-ovarian ligaments were divided adjacent to the uterus. Attention was turned to the left ureter, which was further dissected off the peritoneum, to ensure clearance from the resection area. Once the area was cleared, the abnormal left tube and ovary was extirpated andsent for frozen section pathology with results above. ?? With this cancer diagnosis staging/cytoreduction ensued. The right ovarian vessels were divided in a similar fashion, after visualization of the ureter. This adnexa was skeletonized around the right uterine cornua. A bladder flap was developed to a point over the upper vagina. The peritoneum of theanterior cul-de-sac which was covered with tumor studding was excised with the specimen while the bladder flap was developed. The peritoneum of the posterior cul-de-sac with tumor studding was dissected and excised with the specimen in the following steps. Using Zeppelin clamps, serial bites of theremaining broad and cardinal ligaments were obtained, moving down the length of the uterus, where ea ch pedicle was divided and ligated. The vagina was crossclamped just distal to the cervix and colpotomy was made with Robert scissors. The vagina was closed with a combination of interrupted figure of 8 sutures and running 0 Vicryl sutures. The pelvis was then irrigated. ?? Next, a pelvic lymphadenectomy was performed bilaterally, removing all lymph node bearing tissue distally to the circumflex iliac veins, medially to the superior vesicle arteries, dorsally to the floor of the obturator space, and approximately to the mid common iliac arteries. The preaortic area was exposed, and the preaortic nodes were also collected, using the ESU and hemoclips as necessary forhemostasis. These were sent as left and right pelvic and para- aortic nodes respectively. Hemostasiswas excellent following this procedure. ?? The infracolic omentum was visualized, and the infracolic portion was excised with the LigaSure device. Bilateral paracolic gutter biopsies and diaphragmatic scrapings were collected for staging. Theupper abdomen was palpated, noting no additional tumor, with smooth hemidiaphragms, smooth liver and splenic capsules, normal feeling stomach and pancreas and no evidence of any upper abdominal disease. The appendix was surgically absent. Finally attention was returned the rectosigmoid bowel. Initially, attempts were made at resecting tumor nodules from the surface but in doing so, there were adherent areas and an unavoidable rectal well defect occurred. Thus, the decision was made to resect the entire tumor involved segment of rectosigmoid colon. Tumor free, uninjured segments were identified and stapled off with the PAULO. The mesentery was then divided with the Ligasure. The distal bowel beneath the pelvic peritoneum was defatted and then stapled with the contour stapler with a blue load. The 14 cm segment of rectosigmoid colon was handed off the field for permanent section. The EEA stapler was then advanced into the rectum and the point brought through the distal staple line. The anvil was placed in the proximal end along a defect made in the tinea colon and held in place with a pursestring of 2-0 Prolene. The ends were brought together and the EEA fired and then gently withdrawn. The rings were inspected and noted to be circumferentially intact. The stapled anastomosis was inspected and noted to be hemostatic and off tension. The abdominal cavity was then filled with saline and the distal rectum and sigmoid was filled with air and no leaks were identified. After irrigation and retrieval of laparotomy tapes, Surgi-Timmy hemostatic agent was applied in the posterior cul-de-sac due to ooziness. The OR team re-scrubbed and regowned. The patient was redraped and the abdominal wall was closed with #1 looped PDS in a running, mass technique. The subcutaneous space was closed with a 2-0 plain gut suture in interrupted fashion. After irrigation with Betadine followed by saline per infection bundle protocol, the skin was closed with dominick and a sterile drydressing was applied. Wong catheter remained in the bladder for postoperative use. ?? Anesthesia was discontinued and the patient was returned to a supine position, transferred to the PACU in stable condition accompanied by the anesthesiologist. ?? Complications: None. Antibiotic prophylaxis: Levofloxacin and metronidazole IV DVT prophylaxis: SCDs to apply to lower extremities; heparin, [address] Vallejo, attending gynecologic oncologist, was present and scrubbed for the entire procedure. Misha Ding MD PGY4 07/20/2019 Pasquale Monson MD, attest that I performed this surgery with the assistance of a resident. Iwas present and participated in the entire surgery, from start to finish, as the primary and attending surgeon of record. documented in this encounter Plan of Treatment Upcoming Encounters Date Type Department Care Team (Latest Contact Info) Description 12/25/2023 9:[address] [place] [phone] Xavier Malhotra MD [facility] [place] [address] 12/29/2023 Hospital Encounter Electrophysiology Lab at [place] [phone] Xavier Malhotra MD [facility] [place] [address] Paroxysmal atrial fibrillation 12/29/2023 7:30 AM EDT - 12/29/2023 12:00 PM EDT Surgery [place] [phone] Xavier Malhotra MD [facility] [place] [address] ELECTROPHYSIOLOGY PROCEDURE 01/14/2024 10:40 AM EDT Office Visit Cardiology at [address] [phone] Carmen Castaneda PA [facility] [place] [address] Scheduled Procedures Name Priority Associated Diagnoses Date/Ti me TRANSESOPHAGEAL ECHO DURING CATH/EP PROCEDURE Paroxysmal atrial fibrillation 12/29/2023 7:30 AM EDT documented as of this encounter Procedures Procedure Name Priority Date/Time Associated Diagnosis Comments HEMOGRAM Routine 07/24/2019 3:24 AM EDT DIFFERENTIAL, AUTOMATED Routine 07/24/2019 3:24 AM EDT GREEN TUBE HOLD Routine 07/24/2019 3:24 AM EDT HC VENIPUNCTURE Routine 07/24/2019 3:24 AM EDT HEMOGRAM Routine 07/23/2019 3:09 AM EDT DIFFERENTIAL, AUTOMATED Routine 07/23/2019 3:09 AM EDT HC VENIPUNCTURE Routine 07/23/2019 3:09 AM EDT HC MAGNESIUM, SERUM Routine 07/23/2019 3 :09 AM EDT BASIC METABOLIC PANEL Routine 07/23/2019 3:09 AM EDT HEMOGRAM Routine 07/22/2019 2:00 AM EDT DIFFERENTIAL, AUTOMATED Routine 07/22/2019 2:00 AM EDT HC CBC,PLT & AUTO DIFF Routine 0 2:00 AM EDT HC MAGNESIUM, SERUM Routine 07/22/2019 2 :00 AM EDT BASIC METABOLIC PANEL Routine 07/22/2019 2:00 AM EDT HEMOGRAM Routine 07/21/2019 2:35 AM EDT DIFFERENTIAL, AUTOMATED Routine 07/21/2019 2:35 AM EDT HC VENIPUNCTURE Routine 07/21/2019 2:35 AM EDT HC MAGNESIUM, SERUM Routine 07/21/2019 2 :35 AM EDT BASIC METABOLIC PANEL Routine 07/21/2019 2:35 AM EDT NON-HR INTERNSHIP FINAL REPORT Routine 07/20/2019 11:42 AM EDT CYTOPATHOLOGY NON-GYNECOLOGICAL Routine 07/20/2019 11:42 AM EDT SPECIMEN TO PATHOLOGY Routine 07/20/2019 11:15 AM EDT SPECIMEN TO PATHOLOGY Routine 07/20/2019 10:48 AM EDT SPECIMEN TO PATHOLOGY Routine 07/20/2019 10:33 AM EDT SPECIMEN TO PATHOLOGY Routine 07/20/2019 10:33 AM EDT SPECIMEN TO PATHOLOGY Routine 07/20/2019 10:24 AM EDT SPECIMEN TO PATHOLOGY Routine 07/20/2019 10:03 AM EDT SPECIMEN TO PATHOLOGY Routine 07/20/2019 9:54 AM EDT SPECIMEN TO PATHOLOGY Routine 07/20/2019 9:51 AM EDT SPECIMEN TO PATHOLOGY Routine 07/20/2019 9:36 AM EDT SPECIMEN TO PATHOLOGY Routine 07/20/2019 9:36 AM EDT SPECIMEN TO PATHOLOGY Routine 07/20/2019 9:29 AM EDT SPECIMEN TO PATHOLOGY Routine 07/20/2019 8:53 AM EDT SURGICAL PATHOLOGY REPORT Routine 07/20/2019 8:52 AM EDT NON-HR INTERNSHIP FINAL REPORT Routine 07/20/2019 8:33 AM EDT CYTOPATHOLOGY NON-GYNECOLOGICAL Routine 07/20/2019 8:33 AM EDT Eder Salp-Ooph W/Omentect, Fredi, Rad Dissect ([id number]) Yes 07/20/2019 7:31 AM EDT PELVIC MASS POCT GLUCOSE Routine 07/20/2019 6:17 AM EDT documented in this encounter Results * Green Tube HOLD (07/24/2019 3:24 AM EDT) Green Hold Sample in lab. [facility] Blood specimen (specimen) Venous Draw / Unknown 07/24/2019 3:24 AM EDT 07/24/2019 3:58 AM EDT Nathaly SEARS CHEMISTRY ORDERABLES [facility] [place] [address] * Differential, Automated (07/24/2019 3:24 AM EDT) Pathologist [facility] Neutrophil % 61.5 % [facility] Neutrophil Absolute 3.70 1.70 - 6.10 x10(3)/[facility] Lymph % 22.6 % [facility] Lymphocytes Abs 1.4 0.9 - 3.2 x10(3)/[facility] Monocyte % 8.0 % [facility] Monocyte Abs 0.5 0.3 - 0.9 x10(3)/[facility] Eos % 6.6 % [facility] Eosinophils Abs 0.4 0.0 - 0.4 x10(3)/[facility] Basophil % 1.0 % [facility] Baso Absolute 0.1 0.0 - 0.1 x10(3)/[facility] Immature Gran % 0.30 % [facility] Comment: Immature granulocytes(IG's)percentage and absolute count will include metamyelocytes, myelocytes, and promyelocytes. Blood smears from CBCs yielding IG's will be scanned manually for concordance. If this scan disagrees with the automated IG or if promyelocytes are noted, a manual differential will be performed. Immature Gran Absolute 0.02 0.00 - 0.04 x10(3)/[facility] Blood specimen (specimen) 07/24/2019 3:24 AM EDT 07/24/2019 3:58 AM EDT Narrative Resulting Agency Comment Spec In Lab Nathaly SEARS HEMATOLOGY ORDERABLE S [facility] [place] [address] * (ABNORMAL) Hemogram (07/24/2019 3:24 AM EDT) Pathologist [facility] White Blood Cell 6.0 4.0 - 9.5 x10(3)/mc L [facility] Red Blood Cell 3.30(L) 4.00 - 5.21 x10(6)/mc L [facility] Hemoglobin 11.2(L) 11.7 - 15.5 gm/dL [facility] Hematocrit 34.1(L) 35.7 - 45.8 % [facility] Mean Cell Volume 103.3(H) 82.6 - 94.[address] [facility] Mean Cell Hemoglobin 33.9(H) 27.1 - 32.[address] [facility] Mean Cell Hemoglobin Concentration 32.8 31.7 - 35.0 gm/dL [facility] Platelet 232 145 - 357 x10(3)/ L [facility] RDW Standard Deviation 43.5 37.0 - 46.[address] [facility] RDW coefficient of variation 11.5 11.5 - 14.1 % [facility] Mean Platelet Volume 9.7 7.6 - 12.[address] [facility] NRBC% auto 0.0 % [facility] NRBC Absolute 0.000 0.000 - 0.000 x10(3)/[facility] Blood specimen (specimen) 07/24/2019 3:24 AM EDT 07/24/2019 3:58 AM EDT Narrative Resulting Agency Comment Spec In Lab Nathaly SEARS HEMATOLOGY ORDERABLE S [facility] [place] [address] * Differential, Automated (07/23/2019 3:09 AM EDT) Neutrophil % 66.9 % [facility] Neutrophil Absolute 4.50 1.70 - 6.10 x10(3)/[facility] Lymph % 19.1 % [facility] Lymphocytes Abs 1.3 0.9 - 3.2 x10(3)/[facility] Monocyte % 8.0 % [facility] Monocyte Abs 0.5 0.3 - 0.9 x10(3)/[facility] Eos % 4.7 % [facility] Eosinophils Abs 0.3 0.0 - 0.4 x10(3)/[facility] Basophil % 0.9 % [facility] Baso Absolute 0.1 0.0 - 0.1 x10(3)/[facility] Immature Gran % 0.40 % [facility] Comment: Immature granulocytes(IG's)percentage and absolute count will include metamyelocytes, myelocytes, and promyelocytes. Blood smears from CBCs yielding IG's will be scanned manually for concordance. If this scan disagrees with the automated IG or if promyelocytes are noted, a manual differential will be performed. Immature Gran Absolute 0.03 0.00 - 0.04 x10(3)/[facility] Blood specimen (specimen) 07/23/2019 3:09 AM EDT 07/23/2019 3:22 AM EDT Narrative Resulting Agency Comment Spec In Lab Misha Ding MD HEMATOLOGY ORDERAB LES [facility] [place] [address] * (ABNORMAL) Hemogram (07/23/2019 3:09 AM EDT) White Blood Cell 6.7 4.0 - 9.5 x10(3)/mc L [facility] Red Blood Cell 3.06(L) 4.00 - 5.21 x10(6)/mc L [facility] Hemoglobin 10.2(L) 11.7 - 15.5 gm/dL [facility] Hematocrit 31.5(L) 35.7 - 45.8 % [facility] Mean Cell Volume 102.9(H) 82.6 - 94.[address] [facility] Mean Cell Hemoglobin 33.3(H) 27.1 - 32.[address] [facility] Mean Cell Hemoglobin Concentration 32.4 31.7 - 35.0 gm/dL [facility] Platelet 186 145 - 357 x10(3)/mc L [facility] RDW Standard Deviation 44.6 37.0 - 46.0 [facility] RDW coefficient of variation 11.7 11.5 - 14.1 % [facility] Mean Platelet Volume 9.5 7.6 - 12.9 [facility] NRBC% auto 0.0 % [facility] NRBC Absolute 0.000 0.000 - 0.000 x10(3)/mc L [facility] Blood specimen (specimen) 07/23/2019 3:09 AM EDT 07/23/2019 3:22 AM EDT Narrative Resulting Agency Comment Spec In Lab Misha Ding MD HEMATOLOGY ORDERAB LES Performing Organization Address City/[facility]/ZIP Co de Phone Number [facility] [place] [address] * Magnesium (07/23/2019 3:09 AM EDT) Magnesium 0.78 0.69 - 1.07 mmol/L [facility] Blood specimen (specimen) 07/23/2019 3:09 AM EDT 07/23/2019 3:22 AM EDT Narrative Resulting Agency Comment Spec In Lab Pasquale Vallejo MD CHEMISTRY ORDERABLES Performing Organization Address City/[facility]/ZIP Co de Phone Number [facility] [place] [address] * (ABNORMAL) Basic Metabolic Panel (non-fasting) (07/23/2019 3:09 AM EDT) Glucose 93 65 - 199 mg/dL [facility] Comment:Diabetes: >=200 mg/d L plus symptoms Blood Urea Nitrogen 6(L) 8 - 18 mg/dL [facility] Creatinine 0.47(L) 0.70 - 1.20 mg/dL [facility] Sodium 140 135 - 145 mmol/L [facility] Potassium 3.6 3.5 - 5.0 mmol/L [facility] Comment: Please note: ??Patients with WBC >100,000 may have falsely elevated Potassium levels. ??For accurate Potassium quantification in these patients send serum separator tube (gold top) for subsequent determinations. ??Contact the Clinical Chemistry Laboratory if there are any questions. Chloride 107 98 - 107 mmol/L [facility] Carbon Dioxide 26 22 - 31 mmol/L [facility] Anion Gap 7 5 - 15 mmol/L [facility] Calcium 8.5 8.5 - 10.5 mg/dL [facility] Est Glomerular Filtration Rate 109 >=60 mL/min/1. 73 m?? [facility] Comment: The eGFR was calculated using the CKD-EPI equation. As with all creatinine based estimates of kidney function, eGFR values calculated with the CKD-EPI equation are not accurate in patients with acute kidney failure, extremes of body mass or the acutely ill. [email or web address] eGFR 126 >=60 mL/min/1. 73 m?? [facility] Comment: The eGFR was calculated using the CKD-EPI equation. As with all creatinine based estimates of kidney function, eGFR values calculated with the CKD-EPI equation are not accurate in patients with acute kidney failure, extremes of body mass or the acutely ill. [email or web address] Blood specimen (specimen) 07/23/2019 3:09 AM EDT 07/23/2019 3:22 AM EDT Narrative Resulting Agency Comment Spec In Lab Pasquale Vallejo MD CHEMISTRY ORDERABLES [facility] [place] [address] * Differential, Automated (07/22/2019 2:00 AM EDT) Neutrophil % 71.2 % [facility] Neutrophil Absolute 5.70 1.70 - 6.10 x10(3)/[facility] Lymph % 19.3 % [facility] Lymphocytes Abs 1.5 0.9 - 3.2 x10(3)/[facility] Monocyte % 6.8 % [facility] Monocyte Abs 0.5 0.3 - 0.9 x10(3)/[facility] Eos % 1.8 % [facility] Eosinophils Abs 0.1 0.0 - 0.4 x10(3)/[facility] Basophil % 0.5 % [facility] Baso Absolute 0.0 0.0 - 0.1 x10(3)/[facility] Immature Gran % 0.40 % [facility] Comment: Immature granulocytes(IG's)percentage and absolute count will include metamyelocytes, myelocytes, and promyelocytes. Blood smears from CBCs yielding IG's will be scanned manually for concordance. If this scan disagrees with the automated IG or if promyelocytes are noted, a manual differential will be performed. Immature Gran Absolute 0.03 0.00 - 0.04 x10(3)/[facility] Blood specimen (specimen) 07/22/2019 2:00 AM EDT 07/22/2019 2:08 AM EDT Narrative Resulting Agency Comment Spec In Lab Misha Ding MD HEMATOLOGY ORDERAB LES [facility] [place] [address] * (ABNORMAL) Hemogram (07/22/2019 2:00 AM EDT) White Blood Cell 8.0 4.0 - 9.5 x10(3)/mc L [facility] Red Blood Cell 3.02(L) 4.00 - 5.21 x10(6)/ L [facility] Hemoglobin 10.2(L) 11.7 - 15.5 gm/dL [facility] Hematocrit 30.8(L) 35.7 - 45.8 % [facility] Mean Cell Volume 102.0(H) 82.6 - 94.[address] [facility] Mean Cell Hemoglobin 33.8(H) 27.1 - 32.[address] [facility] Mean Cell Hemoglobin Concentration 33.1 31.7 - 35.0 gm/dL [facility] Platelet 188 145 - 357 x10(3)/mc L [facility] RDW Standard Deviation 44.5 37.0 - 46.[address] [facility] RDW coefficient of variation 11.9 11.5 - 14.1 % [facility] Mean Platelet Volume 9.7 7.6 - 12.[address] [facility] NRBC% auto 0.0 % [facility] NRBC Absolute 0.000 0.000 - 0.000 x10(3)/mc L [facility] Blood specimen (specimen) 07/22/2019 2:00 AM EDT 07/22/2019 2:08 AM EDT Narrative Resulting Agency Comment Spec In Lab Misha Ding MD HEMATOLOGY ORDERAB LES Performing Organization Address City/[facility]/ZIP Co de Phone Number [facility] [place] [address] * Magnesium (07/22/2019 2:00 AM EDT) Magnesium 0.84 0.69 - 1.07 mmol/L [facility] Blood specimen (specimen) 07/22/2019 2:00 AM EDT 07/22/2019 2:08 AM EDT Narrative Resulting Agency Comment Spec In Lab Pasquale Vallejo MD CHEMISTRY ORDERABLES Performing Organization Address City/[facility]/ZIP Co de Phone Number [facility] [place] [address] * (ABNORMAL) Basic Metabolic Panel (non-fasting) (07/22/2019 2:00 AM EDT) Glucose 104 65 - 199 mg/dL [facility] Comment:Diabetes: >=200 mg/d L plus symptoms Blood Urea Nitrogen 7(L) 8 - 18 mg/dL [facility] Creatinine 0.53(L) 0.70 - 1.20 mg/dL [facility] Sodium 137 135 - 145 mmol/L [facility] Potassium 3.8 3.5 - 5.0 mmol/L [facility] Comment: Please note: ??Patients with WBC >100,000 may have falsely elevated Potassium levels. ??For accurate Potassium quantification in these patients send serum separator tube (gold top) for subsequent determinations. ??Contact the Clinical Chemistry Laboratory if there are any questions. Chloride 103 98 - 107 mmol/L [facility] Carbon Dioxide 26 22 - 31 mmol/L [facility] Anion Gap 8 5 - 15 mmol/L [facility] Calcium 8.4(L) 8.5 - 10.5 mg/dL [facility] Est Glomerular Filtration Rate 105 >=60 mL/min/1. 73 m?? [facility] Comment: The eGFR was calculated using the CKD-EPI equation. As with all creatinine based estimates of kidney function, eGFR values calculated with the CKD-EPI equation are not accurate in patients with acute kidney failure, extremes of body mass or the acutely ill. [email or web address]kf eGFR 121 >=60 mL/min/1. 73 m?? [facility] Comment: The eGFR was calculated using the CKD-EPI equation. As with all creatinine based estimates of kidney function, eGFR values calculated with the CKD-EPI equation are not accurate in patients with acute kidney failure, extremes of body mass or the acutely ill. [email or web address] Blood specimen (specimen) 07/22/2019 2:00 AM EDT 07/22/2019 2:08 AM EDT Narrative Resulting Agency Comment Spec In Lab Pasquale Vallejo MD CHEMISTRY ORDERABLES Performing Organization Address City/[facility]/[place] [address] * (ABNORMAL) Differential, Automated (07/21/2019 2:35 AM EDT) Neutrophil % 84.9 % [facility] Neutrophil Absolute 8.64(H) 1.70 - 6.10 x10(3)/mc L [facility] Lymph % 7.1 % [facility] Lymphocytes Abs 0.7(L) 0.9 - 3.2 x10(3)/ L [facility] Monocyte % 7.4 % [facility] Monocyte Abs 0.8 0.3 - 0.9 x10(3)/mc L [facility] Eos % 0.0 % [facility] Eosinophils Abs 0.0 0.0 - 0.4 x10(3)/ L [facility] Basophil % 0.2 % [facility] Baso Absolute 0.0 0.0 - 0.1 x10(3)/ L [facility] Immature Gran % 0.40 % [facility] Comment: Immature granulocytes(IG's)percentage and absolute count will include metamyelocytes, myelocytes, and promyelocytes. Blood smears from CBCs yielding IG's will be scanned manually for concordance. If this scan disagrees with the automated IG or if promyelocytes are noted, a manual differential will be performed. Immature Gran Absolute 0.04 0.00 - 0.04 x10(3)/mc L [facility] Blood specimen (specimen) 07/21/2019 2:35 AM EDT 07/21/2019 2:50 AM EDT Narrative Resulting Agency Comment Spec In Lab Misha Ding MD HEMATOLOGY ORDERAB LES Performing Organization Address City/[facility]/ZIP Co de Phone Number [facility] [place] [address] * (ABNORMAL) Hemogram (07/21/2019 2:35 AM EDT) Pathologist [facility] White Blood Cell 10.2(H) 4.0 - 9.5 x10(3)/[facility] Red Blood Cell 3.28(L) 4.00 - 5.21 x10(6)/[facility] Hemoglobin 11.1(L) 11.7 - 15.5 gm/dL [facility] Hematocrit 33.0(L) 35.7 - 45.8 % [facility] Mean Cell Volume 100.6(H) 82.6 - 94.[address] [facility] Mean Cell Hemoglobin 33.8(H) 27.1 - 32.[address] [facility] Mean Cell Hemoglobin Concentration 33.6 31.7 - 35.0 gm/dL [facility] Platelet 224 145 - 357 x10(3)/[facility] RDW Standard Deviation 42.6 37.0 - 46.0 [facility] RDW coefficient of variation 11.7 11.5 - 14.1 % [facility] Mean Platelet Volume 9.4 7.6 - 12.9 [facility] NRBC% auto 0.0 % [facility] NRBC Absolute 0.000 0.000 - 0.000 x10(3)/[facility] Blood specimen (specimen) 07/21/2019 2:35 AM EDT 07/21/2019 2:50 AM EDT Narrative Resulting Agency Comment Spec In Lab Misha Ding MD HEMATOLOGY ORDERAB LES [facility] [place] [address] * (ABNORMAL) Magnesium (07/21/2019 2:35 AM EDT) Pathologist [facility] Magnesium 0.60(L) 0.69 - 1.07 mmol/L [facility] Blood specimen (specimen) 07/21/2019 2:35 AM EDT 07/21/2019 2:50 AM EDT Narrative Resulting Agency Comment Spec In Lab Pasquale Vallejo MD CHEMISTRY ORDERABLES [facility] [place] [address] * (ABNORMAL) Basic Metabolic Panel (non-fasting) (07/21/2019 2:35 AM EDT) Glucose 119 65 - 199 mg/dL [facility] Comment:Diabetes: >=200 mg/d L plus symptoms Blood Urea Nitrogen 8 8 - 18 mg/dL [facility] Creatinine 0.53(L) 0.70 - 1.20 mg/dL [facility] Sodium 138 135 - 145 mmol/L [facility] Potassium 3.9 3.5 - 5.0 mmol/L [facility] mmol/L [facility] Anion Gap 12 5 - 15 mmol/L [facility] Calcium 8.3(L) 8.5 - 10.5 mg/dL [facility] Est Glomerular Filtration Rate 105 >=60 mL/min/1. 73 m?? [facility] Comment: The eGFR was calculated using the CKD-EPI equation. As with all creatinine based estimates of kidney function, eGFR values calculated with the CKD-EPI equation are not accurate in patients with acute kidney failure, extremes of body mass or the acutely ill. [email or web address] eGFR 121 >=60 mL/min/1. 73 m?? [facility] Comment: The eGFR was calculated using the CKD-EPI equation. As with all creatinine based estimates of kidney function, eGFR values calculated with the CKD-EPI equation are not accurate in patients with acute kidney failure, extremes of body mass or the acutely ill. [email or web address]kf Blood specimen (specimen) 07/21/2019 2:35 AM EDT 07/21/2019 2:50 AM EDT Narrative Resulting Agency Comment Spec In Lab Pasquale Vallejo MD CHEMISTRY ORDERABLES [facility] [place] [address] * Non-Dairy Store Manager Final Report (07/20/2019 11:42 AM EDT) Diagnosis Discussion [id number] ? Location: 1WST; 0114; A The signing pathologist has (i) examined the relevant preparation(s) for the specimen(s) and (ii) rendered or confirmed the diagnosis(es). . ? Non-Dairy Store Manager Final DIAGNOSIS Positive for Malignancy Electronically signed by: ??Mirtha Hector MD Verified: ??07/29/2019 ?Pathologist Performed at: ??-[facility] Dept. of Pathology, [place], [place] DISCUSSION Diaphragmatic scrapings: Carcinoma (see note). 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 ? Cell block was examined. CLINICAL INFORMATION Specimen Source : Diaphragmatic scrapings Pertinent Clinical Data and Significant Therapy: Pelvic mass Clinical Impression : Pelvic mass Pertinent Radiologic Findings ??: (not provided) Gross Description: Received in ThinPrep vial approximately 20 mL total volume of ? clear, colorless fluid, with light flecks. Total Preparation: Liquid-Based Prep 1; Cell Block 1. 07/29/2019 11:[address] [facility] Diaphragm Scrape 07/20/2019 11:42 AM EDT 07/20/2019 11:42 AM EDT Pasquale Vallejo MD PATHOLOGY/CYTOLOGY O TAMICA Performing Organization Address [facility] Co de Phone Number [facility] [place] [address] * Cytopathology Non-Gynecological (07/20/2019 11:42 AM EDT) AP Specimen 07/20/2019 11:4 2 AM EDT 07/20/2019 11:[address] [facility] - 07/20/2019 11:42 AM EDT Specimen requisition ordered. ??Separate Pathology report to follow Pasquale Vallejo MD PATHOLOGY/CYTOLOGY O TAMICA Performing Organization Address [facility] Co de Phone Number [facility] [place] [address] * Specimen to Pathology (07/20/2019 11:15 AM EDT) AP Specimen 07/20/2019 11:1 5 AM EDT 07/20/2019 11:[address] [facility] - 07/20/2019 11:15 AM EDT Specimen requisition ordered. ??Separate Pathology report to follow Pasquale Vallejo MD PATHOLOGY/CYTOLOGY O TAMICA Performing Organization Address [facility] Co de Phone Number [facility] [place] [address] * Specimen to Pathology (07/20/2019 10:48 AM EDT) AP Specimen 07/20/2019 10:4 8 AM EDT 07/20/2019 10:[address] [facility] - 07/20/2019 10:48 AM EDT Specimen requisition ordered. ??Separate Pathology report to follow Pasquale Vallejo MD PATHOLOGY/CYTOLOGY O TAMICA Performing Organization Address City/[facility]/ZIP Co de Phone Number [place], [place] [id number] * Specimen to Pathology (07/20/2019 10:33 AM EDT) AP Specimen 07/20/2019 10:3 3 AM EDT 07/20/2019 10:[address] [facility] - 07/20/2019 10:33 AM EDT Specimen requisition ordered. ??Separate Pathology report to follow Pasuqale Vallejo MD PATHOLOGY/CYTOLOGY O TAMICA Performing Organization Address [facility] Co de Phone Number [facility] [place] [address] * Specimen to Pathology (07/20/2019 10:33 AM EDT) AP Specimen 07/20/2019 10:3 3 AM EDT 07/20/2019 10:[address] [facility] - 07/20/2019 10:33 AM EDT Specimen requisition ordered. ??Separate Pathology report to follow Pasquale Vallejo MD PATHOLOGY/CYTOLOGY O TAMICA Performing Organization Address [facility]/[place] [address] * Specimen to Pathology (07/20/2019 10:24 AM EDT) AP Specimen 07/20/2019 10:2 4 AM EDT 07/20/2019 10:[address] [facility] - 07/20/2019 10:24 AM EDT Specimen requisition ordered. ??Separate Pathology report to follow Pasquale Vallejo MD PATHOLOGY/CYTOLOGY O TAMICA Performing Organization Address City/[facility]/ZIP Co de Phone Number [facility] [place] [address] * Specimen to Pathology (07/20/2019 10:03 AM EDT) AP Specimen 07/20/2019 10:0 3 AM EDT 07/20/2019 10:[address] [facility] - 07/20/2019 10:03 AM EDT Specimen requisition ordered. ??Separate Pathology report to follow Pasquale Vallejo MD PATHOLOGY/CYTOLOGY O TAMICA Performing Organization Address [facility] [place] [address] * Specimen to Pathology (07/20/2019 9:54 AM EDT) AP Specimen 07/20/2019 9:54 AM EDT 07/20/2019 9:[address] [facility] - 07/20/2019 9:54 AM EDT Specimen requisition ordered. ??Separate Pathology report to follow Pasquale Vallejo MD PATHOLOGY/CYTOLOGY O TAMICA Performing Organization Address [facility] Co de Phone Number [facility] [place] [address] * Specimen to Pathology (07/20/2019 9:51 AM EDT) AP Specimen 07/20/2019 9:51 AM EDT 07/20/2019 9:[address] [facility] - 07/20/2019 9:51 AM EDT Specimen requisition ordered. ??Separate Pathology report to follow Pasquale Vallejo MD PATHOLOGY/CYTOLOGY O TAMICA Performing Organization Address [facility] [place] [address] * Specimen to Pathology (07/20/2019 9:36 AM EDT) AP Specimen 07/20/2019 9:36 AM EDT 07/20/2019 9:[address] [facility] - 07/20/2019 9:36 AM EDT Specimen requisition ordered. ??Separate Pathology report to follow Pasquale Vallejo MD PATHOLOGY/CYTOLOGY O TAMICA Performing Organization Address City/[facility]/[place] [address] * Specimen to Pathology (07/20/2019 9:36 AM EDT) AP Specimen 07/20/2019 9:36 AM EDT 07/20/2019 9:[address] [facility] - 07/20/2019 9:36 AM EDT Specimen requisition ordered. ??Separate Pathology report to follow Pasquale Vallejo MD PATHOLOGY/CYTOLOGY O TAMICA Performing Organization Address [facility] [place] [address] * Specimen to Pathology (07/20/2019 9:29 AM EDT) AP Specimen 07/20/2019 9:29 AM EDT 07/20/2019 9:[address] [facility] - 07/20/2019 9:29 AM EDT Specimen requisition ordered. ??Separate Pathology report to follow Pasquale Vallejo MD PATHOLOGY/CYTOLOGY O TAMICA Performing Organization Address [facility]/[place] [address] * Specimen to Pathology (07/20/2019 8:53 AM EDT) AP Specimen 07/20/2019 8:53 AM EDT 07/20/2019 8:[address] [facility] - 07/20/2019 8:53 AM EDT Specimen requisition ordered. ??Separate Pathology report to follow Pasquale Vallejo MD PATHOLOGY/CYTOLOGY O TAMICA Performing Organization Address [facility]/[place] [address] * Surgical Pathology Report (07/20/2019 8:52 AM EDT) Final Diagnosis [id number] ? Location: [facility]; 0114; A The signing pathologist has (i) examined the relevant preparation(s) for the specimen(s) and (ii) rendered or confirmed the diagnosis(es). . 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 involving ovary, ?ovarian surface, and fallopian tube surface (see ?Synoptic Report and Discussion) B - Uterus, cervix, right fallopian tube and ovary and anterior-posterior ?pelvic peritoneum, hysterectomy and salpingo-oophorectom y: ??- High-grade serous carcinoma involving the ovary, ovarian surface, ?fallopian tube, fallopian tube surface, uterine serosa, and pelvic ?peritoneum (see Synoptic Report and Discussion) ??- Serous tubal intraepithelial carcinoma (STIC), fallopian tube ??- Benign cervix ??- Benign inactive endometrium ??- Uterine leiomyoma C - Anterior pelvic peritoneum, excision: ??- High-grade ovarian carcinoma D - Tumor on the surface of the rectosigmoid colon below pelvic ?rim, excision: ??- High-grade ovarian carcinoma E - Left pelvic lymph nodes, excision: ??- Nine lymph nodes, negative for malignancy (0/9) F - Right pelvic lymph nodes, excision: ??- Twenty-one lymph nodes, negative for malignancy (0/21) G - Omentum, excision: ??- Metastatic high-grade ovarian carcinoma ??- One lymph node, negative for malignancy (0/1) H - Lazara-aortic lymph nodes, excision: ??- One lymph node, negative for malignancy (0/1) I - Left para colic gutter biopsy: ??- Cauterized fibrous connective tissue, negative for malignancy J - Right para colic gutter biopsy: ??- Cauterized fibrous connective tissue, negative for malignancy K - Rectosigmoid resection: ??- 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 DIAGNOSIS ? Tumor Site: ??Bilateral tubo-ovarian ? Histologic Type: ?? 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 Right tube and ovary = high-grade serous ?carcinoma (100%) ? Histologic Grade: ?? High grade ? Tumor Size: ?? 5.2 cm ? Laterality: ?? Right ? Ovarian Surface Involvement: ?? Present ?Laterality: ??bilateral ? Fallopian Tube Surface Involvement: ?Present ?Laterality: ??bilateral ? Other Tissue / Organ Involvement: ?Uterus; ??Pelvic peritoneum; ??Abdominal ?peritoneum; ??Omentum ? Largest Extrapelvic Peritoneal Focus: ?Macroscopic (2 cm or less) ?Site: ??Rectosigmoid mesentery ? Peritoneal Ascitic Fluid: ?? Results pending Lymph Nodes ? Number of Nodes with Metastasis Greater than 10 mm: ? 0 ? Number of Nodes with Metastasis 10 mm or Less (excludes isolated tumor ?cells): ??1 ? Number of Nodes with Isolated Tumor Cells (ITCs): ? 0 ? Toni Site(s) with Tumor Cells: ?Mesenteric lymph node ? Size of Largest Metastatic Deposit (Millimeters): ? 2 mm ? Number of Lymph Nodes Examined: ?39 Pathologic Stage Classification (pTNM, AJCC 8th Edition) ? Primary Tumor (pT): ?? pT3b ? Regional Lymph Nodes (pN): ?? pN1a FIGO Stage ? FIGO Stage: ??IIIB Additional Findings ? Additional Pathologic Findings: ?? 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 A4, B11 CAP eCC May 2018 Annual Release Electronically signed by: ??Lani Arceo DO Verified: ??07/27/2019 ?Pathologist Performed at: ??-[facility] Dept. of Pathology, [place], [place] DISCUSSION The tumor in the left ovary shows different morphologic growth patterns including areas with solid and glandular architecture showing a p53+ p16+(nondiffuse) ER +(strong and diffuse) immunophenotype most compatible with a high-grade [id number] endometrioid carcinoma. There are also foci with papillary growth morphologically compatible with high-grade serous carcinoma. 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 The tumor in the right ovary predominantly shows papillary high-grade serous morphology with a p53+ p16+(strong and diffuse) ER+(moderate to strong, nondiffuse) immunophenotype and is associated with a STIC in the right fallopian tube. Taken together, the tumor in the right ovary is most compatible with a high-grade serous carcinoma. ADDITIONAL STUDIES Immunohistochemistry Studies: Formalin-fixed, paraffin-embedded tissue [...] absence is evaluated within the context of . ADDITIONAL STUDIES clinical presentation, morphology, histopathological criteria and other diagnostic tests. Block ? Antibody ? Result (Positive/Negative) A4 ? p53 ? Positive ? p16 ? Positive - nondiffuse ? ER ?Positive - strong and diffuse ? HI ?Positive - strong and focal ? WT1 ? Positive B12 ?p53 ? Positive ? p16 ? Positive - diffuse ? ER ?Positive - moderate - strong and nondiffuse ? HI ?Positive - strong and focal ? WT1 ? Positive Block ? Antibody ? Result (Positive/Negative) A4, B12 ??MLH1 ?Positive, intact nuclear staining ? MSH2 ?Positive, intact nuclear staining ? MSH6 ?Positive, intact nuclear staining ? PMS2 ?Positive, intact nuclear staining Interpretation: Immunostains for MLH1, MSH2, MSH6, and PMS2 reveal intact nuclear staining in tumor cells. ??In a very small percentage of tumors, there may still be an underlying hereditary defect in these DNA mismatch repair genes despite intact nuclear expression of the protein in tumor cells ?? . Genetic counseling and/or additional workup is indicated in patients with a family history that meets current criteria for HNPCC screening. Immunohistochemical assay was performed on paraffin-embedded tissue sections fixed in 10% neutral buffered formalin for 6-72 hours using the polymer system technique with appropriate controls. The assay was performed according to the roof truss detailer's intructions using anti-MLH-1 ([id number]), anti-MSH-2 ([id number]), anti-MSH-6 (44), and anti-PMS-2 ([id number]) antibodies. CLINICAL INFORMATION Specimen Submitted: A - Left tube and ovary B - Uterus, cervix, right tube and ovary, anterior-posterior pelvic peritoneum C - Anterior pelvic peritoneum D - Tumor on the surface of the recto-sigmoid colon below pelvic rim E - Left pelivic lymph nodes F - Right pelvic lymph nodes G - Omentum H - Lazara-aortic lymph nodes I - Left para colic gutter BX J - Right para colic gutter BX K - Recto-sigmoid resection L - Mucosal sigmoid rectal donuts Clinical History and Diagnosis: Pelvic mass SPECIMEN PROCESSING A - Labeled/Fixative: Left tube and ovary, fresh. Quantity/Size/Weight : ??Single, 9.5 x 6.5 x 5.0 cm, 40 g (overall). Tissue Description: Intact, Salpingo-oophorectom y. LEFT OVARY ?? Size: 9.5 x 6.5 x 5.0 cm. ?? Outer Surface: red-purple, smoothcystic, nodular. . SPECIMEN PROCESSING ?? Cut Surface: Cystic, nodular. There are multiple yellow, soft excrescences. There is cyst wall thickening with nodularity. There are foster-white rubbery nodules measuring up to 4.0 x 2.7 x 1.5 cm cm. There is no identifiable ovarian parenchyma. Left Fallopian Tube: 6.5 x 0.6 cm, fimbriated, with paratubal cysts. Sections/Processing: The following tissue is submitted for frozen section: AFS1: Three chain sales representative sections of cyst wall with excrescences and solid area. Insurance Law Specialist sections in 12 cassettes as follows: ?A1: ??AFS1: Frozen section remnant, three chain sales representative sections of cyst wall with ? excrescences and solid area ?A2-A4: ??Left ovary, chain sales representative nodules ?A5-A6: ??Left ovary, chain sales representative excrescences ?A7: ??Left ovary, chain sales representative cyst wall ?A8: ??Left fallopian tube, fimbriated end, bisected ?A9-A12: ??Left fallopian tube, cross-sections, entirely submitted B - Labeled/Fixative: Uterus, cervix, right tube and ovary, anterior ?-posterior pelvic peritoneum, fresh. Quantity/Size/Weight : ??Single, 10.0 x 7.8 x 2.3 cm, 88 g (overall). Tissue Description: Intact, total hysterectomy. UTERUS Endometrium: 0.1 cm. Myometrium: 1.1-1.6 cm thick, 2.6 ??x 1.5 x 1.5 cm white whorled nodule in the posterior myometrium. 0.8 x 0.6 x 0.5 cm white whorled nodule in the anterior myometrium. Serosa: Uninvolved. CERVIX Diameter: 2.9 cm Os: 0.2 cm, circular RIGHT OVARY ?? Size: 5.2 x 3.9 x 2.6 cm. ?? Outer Surface: red-purple, smoothCystic. ?? Cut Surface: Multiple cysts filled with brown, thin fluid. There are foster-white soft/rubbery nodular areas. Right Fallopian Tube: 7.4 x 0.5 cm, fimbriated. Sections/Processing: Insurance Law Specialist sections in 19 cassettes as follows: ?B1: ??Right fallopian tube, fimbriated end, bisected ?B2-B4: ??Right fallopian tube, cross-sections, entirely submitted from distal to ? proximal ?B5: ??Possible additional right fallopian tube cross-sections at cornu ?B6-B13: ??Right ovary, chain sales representative sections ?B14: ??Anterior cervix ?B15: ??Posterior cervix ?B16: ??Anterior endomyometrium, full thickness ?B17: ??Posterior endomyometrium, full thickness ?B18: ??Anterior myometrial white whorled nodule, chain sales representative section ?B19: ??Posterior myometrial white whorled nodule, chain sales representative section C - Labeled/Fixative: Anterior pelvic peritoneum, fresh. Quantity/Size: Single, 0.8 x 0.6 x 0.3 cm. Tissue Description: Fragment of foster-red soft tissue. Sections/Processing: Submitted en toto ??in 1 cassette labeled C1. D - Labeled/Fixative: Tumor on the surface of the rectosigmoid colon below pelvic rim, fresh. Quantity/Size: Fragments, 2.1 x 1.2 x 0.6 cm in aggregate. Tissue Description: Fragments of foster-pink rubbery tissue. Sections/Processing: Submitted en toto ??in 2 cassettes labeled D1-D2. E - Labeled/Fixative: Left pelvic lymph node, fresh. . SPECIMEN PROCESSING Quantity/Size: Two, 6.0 x 5.0 x 1.5 cm in aggregate. Tissue Description: Adipose tissue with multiple lymph nodes, up to 2.8 x 1.5 x 0.5 cm. Sections/Processing: Insurance Law Specialist sections in 8 cassettes as follows: ?E1-E2: ??Single candidate lymph node, serially sectioned ?E3-E4: ??Single candidate lymph node, serially sectioned ?E5: ??Single candidate lymph node, trisected ?E6: ??Single candidate lymph node, quadrasected ?E7: ??Six candidate lymph nodes ?E8: ??Five candidate lymph nodes F - Labeled/Fixative: Right pelvic lymph nodes, fresh. Quantity/Size: Multiple, 4.8 x 5.2 x 1.4 cm in aggregate. Tissue Description: Adipose tissue with multiple lymph nodes, up to 1.5 x 1.0 x 0.6 cm. Sections/Processing: Insurance Law Specialist sections in 15 cassettes as follows: ?F1-F2: ??Single candidate lymph node (largest), serially sectioned ?F3-F4: ??Single candidate lymph node, serially sectioned ?F5: ??Single candidate lymph node, serially sectioned ?F6: ??Single candidate lymph node, quadrasected ?F7: ??Single candidate lymph node, serially sectioned ?F8: ??Single candidate lymph node, quadrasected ?F9: ??Single candidate lymph node, trisected ?F10: ??Single candidate lymph node, quadrasected ?F11: ??Single candidate lymph node, quadrasected ?F12: ??Single candidate lymph node, trisected ?F13: ??Single candidate lymph node, trisected ?F14: ??Five candidate lymph nodes ?F15: ??Five candidate lymph nodes G - Labeled/Fixative: Omentum, fresh. Quantity/Size: Single, 45.0 x 8.5 x 1.0 cm. Tissue Description: Single fragment of omentum composed primarily of yellow adipose tissue. The adipose tissue at the center of the specimen is firmer than the periphery. Sections/Processing: Insurance Law Specialist sections in 3 cassettes as follows: ?G1: ??Insurance Law Specialist omentum with lymph node ?G2-G3: ??Insurance Law Specialist omentum H - Labeled/Fixative: Periaortic lymph nodes, fresh. Quantity/Size: Single, 1.9 x 1.6 x 0.5 cm. Tissue Description: Adipose tissue with one lymph node, up to 1.5 x 0.7 x 0.3 cm. Sections/Processing: Insurance Law Specialist sections in 1 cassettes as follows: ?H1: ??Single lymph node, serially sectioned I - Labeled/Fixative: Left paracolic gutter bx, fresh. Quantity/Size: Single, 1.1 x 0.8 x 0.2 cm. Tissue Description: Fragment of foster-pink soft tissue with cauterized edge. Sections/Processing: Serially sectioned and entirely submitted in 1 cassette labeled I1. J - Labeled/Fixative: Right pericolic gutter biopsy, fresh. Quantity/Size: Single, 0.7 x 0.6 x 0.3 cm. Tissue Description: Fragment of foster pink soft tissue with cauterized edge. Sections/Processing: Trisected and entirely submitted in 1 cassette labeled J1. K - Labeled/Fixative: Rectosigmoid resection, fresh. Resection Specimen: Intact, partial colectomy. . SPECIMEN PROCESSING Length/Diameter: 15.1 x 3.5 cm. External Architecture: Preserved. Serosa: Smooth, glistening with focal nodularity up to 0.5 cm. Mucosa: Foster-pink with normal foldings. Wall: 0.2 cm thick. Margins: Grossly uninvolved. Sections/Processing: Insurance Law Specialist sections in 11 cassettes as follows: ?K1: ??Proximal margin ?K2: ??Distal margin ?K3-K4: ??Largest serosal nodule, bisected, entirely submitted ?K5-K7: ??Mesenteric serosal nodularity ?K8: ??Bowel with serosal nodularity ?K9: ??Five candidate lymph nodes ?K10: ??Five candidate lymph nodes ?K11: ??Single candidate lymph node, trisected L - Labeled/Fixative: Mucosal sigmoid rectal donuts, fresh. Quantity/Size: ??Two, averaging 2.8 x 2.1 x 1.1 cm, 1.7 x 1.3 x 0.6 cm. TissueDescription: Annular portions of foster-pink mucosa. Sections/Processing: Insurance Law Specialist section of each is submitted in 1 cassette labeled L1. ??RMO ?Frozen Section FROZEN SECTION DIAGNOSIS AFS - Left tube and ovary: Carcinoma, favor endometrioid type 07/20/19 09:27 Electronically signed by: ??Lani Arceo DO Verified: ??07/20/2019 ?Pathologist Performed at: ??-[facility] Dept. of Pathology, [place], [place] This intraoperative consultation should be interpreted as a preliminary diagnosis pending review of the entire specimen and special studies, if any. 07/27/2019 9:[address] [facility] COLON STRUCTURE / Unknown 07/20/2019 8:52 AM EDT 07/20/2019 8:52 AM EDT Uterine Corpus 07/20/2019 8: 52 AM EDT 07/20/2019 8:52 AM EDT SPECIMEN FROM PERITONEUM / Unknown 07/20/2019 8:52 AM EDT 07/20/2019 8:52 AM EDT BIOPSY SPECIMEN / Unknown 07/20/2019 8:52 AM EDT 07/20/2019 8:52 AM EDT LYMPH NODE SPECIMEN / Unknown 07/20/2019 8:52 AM EDT 07/20/2019 8:52 AM EDT LYMPH NODE SPECIMEN / Unknown 07/20/2019 8:52 AM EDT 07/20/2019 8:52 AM EDT OMENTUM STRUCTURE / Unknown 07/20/2019 8:52 AM EDT 07/20/2019 8:52 AM EDT LYMPH NODE SPECIMEN / Unknown 07/20/2019 8:52 AM EDT 07/20/2019 8:52 AM EDT BIOPSY SPECIMEN / Unknown 07/20/2019 8:52 AM EDT 07/20/2019 8:52 AM EDT BIOPSY SPECIMEN / Unknown 07/20/2019 8:52 AM EDT 07/20/2019 8:52 AM EDT COLON STRUCTURE / Unknown 07/20/2019 8:52 AM EDT 07/20/2019 8:52 AM EDT COLON STRUCTURE / Unknown 07/20/2019 8:52 AM EDT 07/20/2019 8:52 AM EDT Pasquale Vallejo MD PATHOLOGY/CYTOLOGY O TAMICA [facility] [place] [address] * Non-Dairy Store Manager Final Report (07/20/2019 8:33 AM EDT) Diagnosis Discussion [id number] ? [facility]; A The signing pathologist has (i) examined the relevant preparation(s) for the specimen(s) and (ii) rendered or confirmed the diagnosis(es). . ? Non-Dairy Store Manager Final DIAGNOSIS Positive for Malignancy Electronically signed by: ??Mirtha Hector MD Verified: ??07/29/2019 ?Pathologist Performed at: ??-[facility] Dept. of Pathology, [place], [place] DISCUSSION Pelvic wash: Carcinoma (see note). Note: Findings are consistent with involvement by the patient's high-grade bilateral tubo-ovarian mixed epithelial carcinoma ([id number]) . ?Cell block was examined. CLINICAL INFORMATION Specimen Source : Pelvic wash Pertinent Clinical Data and Significant Therapy: Pelvic mass Clinical Impression : Pelvic mass Pertinent Radiologic Findings ??: (not provided) Gross Description: Received ??fresh approximately 115 mL total volume of ?? cloudy, red fluid, with light flecks. Total Preparation: Liquid-Based Prep 1; Cell Block 1. 07/29/2019 11:[address] [facility] Pelvic Washing 07/20/2019 8: 33 AM EDT 07/20/2019 8:33 AM EDT Pasquale Vallejo MD PATHOLOGY/CYTOLOGY O TAMICA Performing Organization Address [facility] Co de Phone Number [facility] [place] [address] * Cytopathology Non-Gynecological (07/20/2019 8:33 AM EDT) AP Specimen 07/20/2019 8:33 AM EDT 07/20/2019 8:[address] [facility] - 07/20/2019 8:33 AM EDT Specimen requisition ordered. ??Separate Pathology report to follow Pasquale Vallejo MD PATHOLOGY/CYTOLOGY O TAMICA Performing Organization Address [facility] de Phone Number [facility] [place] [address] * POCT Glucose (07/20/2019 6:17 AM EDT) Glucose, POC 97 65 - 199 mg/dL [facility] Comment: Supplemental ranges: <140 mg/dL before meals <180 mg/dL all other times of the day Blood specimen (specimen) 07/20/2019 6:17 AM EDT 07/20/2019 6:17 AM EDT Pasquale Vallejo MD POINT OF CARE TEST O TAMICA Performing Organization Address [facility] Co de Phone Number [facility] [place] [address] documented in this encounter Visit Diagnoses Not on filedocumented in this encounter Admitting Diagnoses Diagnosis Pelvic mass Abdominal or pelvic swelling, mass or lump, unspecified site documented in this encounter Administered Medications Inactive Administered Medications - up to 3 most recent administrations Medication Order MAR Action Action Date Dose Rate Site acetaminophen (Tylenol) tablet 650 mg 650 mg, Oral, EVERY 6 HOURS SCHEDULED, First dose on Fri07/20/19 at 1800, Until Discontinued, - If ordered with other PRN pain medications give Ibuprofen first, then acetaminophen, then additional agents according to the pain scale. - Not to exceed 4g in 24 hours, Routine Given 07/24/2019 8:31 AM EDT 650 mg Given 07/24/2019 2:16 AM EDT 650 mg Given 07/23/2019 8:45 PM EDT 650 mg dilTIAZem CD (Cardizem CD) capsule 180 mg 180 mg, Oral, DAILY, First dose on Fri07/21/19 at 0900, Until Discontinued, DO NOT CRUSH OR OPEN, Routine Given 07/24/2019 8:31 AM EDT 180 mg Given 07/23/2019 8:17 AM EDT 180 mg Given 07/22/2019 9:31 AM EDT 180 mg enoxaparin (LOVENOX) injection 40 mg 40 mg, Subcutaneous, EVERY 24 HOURS SCHEDULED (Daily), First dose on Fri07/22/19 at 0900, Until Discontinued, Routine Given 07/24/2019 8:31 AM EDT 40 mg Given 07/23/2019 8:17 AM EDT 40 mg Given 07/22/2019 9:31 AM EDT 40 mg HYDROmorphone (DILAUDID) injection 0.2 mg 0.2 mg, Intravenous, ONCE PRN, 1 dose, Starting on Fri07/23/19 at 1159, Until 07/24/19 at 1414, Pain, extreme breakthrough, Routine HYDROmorphone (Dilaudid) tablet 4 mg 4 mg, Oral, EVERY 3 HOURS PRN, Starting on Fri07/23/19 at 0745, Until 07/24/19 at 1414, Pain, Routine Given 07/24/2019 11:04 AM EDT 4 mg Given 07/24/2019 7:34 AM EDT 4 mg Given 07/24/2019 3:04 AM EDT 4 mg ibuprofen (Advil;Motrin) tablet 600 mg 600 mg, Oral, EVERY 6 HOURS, First dose on Fri07/21/19 at 2145, Until Discontinued, - Begin after ketorolac discontinued. , Routine Given 07/24/2019 11:03 AM EDT 600 mg Given 07/24/2019 5:12 AM EDT 600 mg Given 07/23/2019 9:59 PM EDT 600 mg polyethylene glycol (Miralax) packet 17 g 17 g, Oral, DAILY, First dose on Fri07/20/19 at 1900, Until Discontinued, Administer if no bowel movement within 48 hours to achieve: (1) One bowel movement at least every 48 hours, AND (2) without straining. If multiple PRN bowel medications ordered, start with polyethylene glycol, then lactulose, then oral bisacodyl, then bisacodyl suppository, then magnesium citrate, then tap water enema. Multiple medications may be given concomitantly for constipation., Routine Given 07/24/2019 8:31 AM EDT 17 g Given 07/23/2019 8:17 AM EDT 17 g Given 07/22/2019 9:31 AM EDT 17 g scopolamine (TRANSDERM-SCOP) 1 mg patch Patch Verification Transdermal, 2 TIMES DAILY, First dose on Fri07/20/19 at 2100, Until Discontinued, Verify scopolamine 1.5 mg patch., Recovery (Recovery-Hospital Unit) senna-docusate (Pericolace) 8.6-50 mg per tablet 2 tablet 2 tablet, Oral, 2 TIMES DAILY, First dose on Fri07/20/19 at 2100, Until Discontinued, Routine Given 07/24/2019 8:31 AM EDT 2 tablets Given 07/23/2019 8:17 AM EDT 2 tablets Given 07/22/2019 8:13 PM EDT 2 tablets sodium chloride 0.9 % (flush) flush 5 mL 5 mL, Intravenous, 2 TIMES DAILY, First dose on Fri07/20/19 at 2100, Until Discontinued, Routine Given 07/24/2019 8:31 AM EDT 5 mLs Given 07/23/2019 8:46 PM EDT 10 mLs Given 07/23/2019 8:17 AM EDT 10 mLs documented in this encounter Active and Recently Administered Medications Times are shown in EDT. Scheduled Medication Order 07/22/2019 07/23/2019 07/24/2019 acetaminophen (Tylenol) tablet 650 mg 650 mg, Oral, EVERY 6 HOURS SCHEDULED, First dose on Fri07/20/19 at 1800, Until Discontinued, - If ordered with other PRN pain medications give Ibuprofen first, then acetaminophen, then additional agents according to the pain scale. - Not to exceed 4g in 24 hours, Routine 0540 (Given - Provider: Hugh Lombardi RN)1413 (Given - Provider: Kassandra Bassett RN)2012 (Given - Provider: Jamee Turcios, DMITRY) 0244 (Given - Provider: Jamee Turcios, DMITRY)0738 (Given - Provider: Mercedes Poon RN)1356 (Given - Provider: Mercedes Poon RN)2045 (Given - Provider: Dulce Maria Gonzales RN) 0216 (Given - Provider: Dulce Maria Gonzales RN)0831 (Given - Provider: Lani Nino, DMITRY) dilTIAZem CD (Cardizem CD) capsule 180 mg 180 mg, Oral, DAILY, First dose on Fri07/21/19 at 0900, Until Discontinued, DO NOT CRUSH OR OPEN, Routine 09 (Given - Provider: Kassandra Bassett RN) 0817 (Given - Provider: Mercedes Poon RN) 0831 (Given - Provider: Lani Nino RN) enoxaparin (LOVENOX) injection 40 mg 40 mg, Subcutaneous, EVERY 24 HOURS SCHEDULED (Daily), First dose on Fri07/22/19 at 0900, Until Discontinued, Routine 0931 (Given - Provider: Kassandra Bassett RN) 0817 (Given - Provider: Mercedes Poon RN) 0831 (Given - Provider: Lani Nino RN) HYDROmorphone (Dilaudid) tablet 2 mg (COMPLETED) 2 mg, Oral, ONCE, 1 dose, On Louisa 07/22/19 at 1745, Routine 1732 (Given - Provider: Mercedes Poon RN) HYDROmorphone (Dilaudid) tablet 4 mg (COMPLETED) 4 mg, Oral, ONCE, 1 dose, On Fri07/23/19 at 0800, STAT 0738 (Given - Provider: Mercedes Poon RN) ibuprofen (Advil;Motrin) tablet 600 mg(Linked Group 1) 600 mg, Oral, EVERY 6 HOURS, First dose on Fri07/21/19 at 2145, Until Discontinued, - Begin after ketorolac discontinued. , Routine 0305 (Given - Provider: Hugh Lombardi RN)1045 (Given - Provider: Kassandra Bassett RN)1520 (Given - Provider: Mercedes Poon RN)2148 (Given - Provider: Jamee Turcios RN) 0327 (Given - Provider: Jamee Turcios RN)0956 (Given - Provider: Mercedes Poon RN)1531 (Given - Provider: Mercedes Poon RN)2159 (Given - Provider: Dulce Maria Gonzales RN) 0512 (Given - Provider: Dulce Maria Gonzales, DMITRY)1103 (Given - Provider: Lani Nino, DMITRY) magnesium sulfate 2 g in sterile water 50 mL (COMPLETED) 2 g, Intravenous, ONCE, 1 dose, On Fri07/23/19 at 0630, Administer over 120 Minutes 0633 (New Bag - Provider: Jamee Turcios RN)0833 (Stopped - Provider: Mercedes Poon RN) polyethylene glycol (Miralax) packet 17 g 17 g, Oral, DAILY, First dose on Fri07/20/19 at 1900, Until Discontinued, Administer if no bowel movement within 48 hours to achieve: (1) One bowel movement at least every 48 hours, AND (2) without straining. If multiple PRN bowel medications ordered, start with polyethylene glycol, then lactulose, then oral bisacodyl, then bisacodyl suppository, then magnesium citrate, then tap water enema. Multiple medications may be given concomitantly for constipation., Routine 0931 (Given - Provider: Kassandra Bassett, DMITRY) 0817 (Given - Provider: Mercedes Poon RN) 0831 (Given - Provider: Lani Nino, DMITRY) polyethylene glycol (Miralax) packet 17 g (COMPLETED) 17 g, Oral, ONCE, 1 dose, On Fri07/23/19 at 1445, Routine 1532 (Given - Provider: Mercedes Poon RN) scopolamine (TRANSDERM-SCOP) 1 mg patch Patch Verification Transdermal, 2 TIMES DAILY, First dose on Fri07/20/19 at 2100, Until Discontinued, Verify scopolamine 1.5 mg patch., Recovery (Recovery-Hospital Unit) 0900 (Patch Not Verified (add comment) - Provider: Kassandra Bassett RN)2099 (Patch Not Verified (add comment) - Provider: Jamee Turcios RN - Comment: patch not present on assessment) 0900 (Patch Not Verified (add comment) - Provider: Mercedes Poon RN - Comment: not wearing patch)2099 (Patch Not Verified (add comment) - Provider: Dulce Maria Gonzales RN) 09 (Patch Not Verified (add comment) - Provider: Lani Nino RN - Comment: patch not present) senna-docusate (Pericolace) 8.6-50 mg per tablet 2 tablet 2 tablet, Oral, 2 TIMES DAILY, First dose on Fri07/20/19 at 2100, Until Discontinued, Routine 0931 (Given - Provider: Kassandra Bassett RN)2012 (Given - Provider: Jamee Turcios RN) 816 (Given - Provider: Mercedes Poon RN)2099 (Not Given - Provider: Dulce Maria Gonzales RN - Reason: Patient/family refused) 08 (Given - Provider: Lani Nino, DMITRY) senna-docusate (Pericolace) 8.6-50 mg per tablet 2 tablet (COMPLETED) 2 tablet, Oral, ONCE, 1 dose, On Fri07/23/19 at 1445, Routine 1531 (Given - Provider: Mercedes Poon RN) sodium chloride 0.9 % (flush) flush 5 mL 5 mL, Intravenous, 2 TIMES DAILY, First dose on Fri07/20/19 at 2100, Until Discontinued, Routine 0932 (Given - Provider: Kassandra Bassett RN)2012 (Given - Provider: Jamee Turcios RN) 816 (Given - Provider: Mercedes Poon RN)2045 (Given - Provider: Dulce Maria Gonzales RN) 0831 (Given - Provider: Lani Nino, DMITRY) PRN Medication Order 07/22/2019 07/23/2019 07/24/2019 dilTIAZem (Cardizem) tablet 30 mg 30 mg, Oral, 3 TIMES DAILY PRN, Starting on Fri07/20/19 at 1527, Until 07/24/19 at 1414, Use for palpitations. Page resident at 4344 if this PRN medication is used, Routine HYDROmorphone (DILAUDID) injection 0.2 mg 0.2 mg, Intravenous, ONCE PRN, 1 dose, Starting on Fri07/23/19 at 1159, Until 07/24/19 at 1414, Pain, extreme breakthrough, Routine HYDROmorphone (Dilaudid) tablet 4 mg (CANCELED) 4 mg, Oral, EVERY 4 HOURS PRN, Starting on Louisa 07/22/19 at 1846, Until Fri07/23/19 at 0737, Pain, for moderate pain (4-6), May give an additional 2 mg once if pain not relieved in 30-60 minutes., Routine 1854 (See Alternative - Provider: Mercedes Poon RN) 0009 (Given - Provider: Jamee Turcios RN)0418 (See Alternative - Provider: Jamee Turcios RN) HYDROmorphone (Dilaudid) tablet 4 mg(Linked Group 2) 4 mg, Oral, EVERY 3 HOURS PRN, Starting on Fri07/23/19 at 0745, Until 07/24/19 at 1414, Pain, Routine 1027 (Given - Provider: Mercedes Poon RN)1356 (Given - Provider: Mercedes Poon RN)1759 (Given - Provider: Mercedes Poon RN)2159 (Given - Provider: Dulce Maria Gonzales RN) 0304 (Given - Provider: Dulce Maria Gonzales RN)0734 (Given - Provider: Dulce Maria Gonzales RN)1104 (Given - Provider: Lani Nino RN) HYDROmorphone (Dilaudid) tablet 4-6 mg (CANCELED) 4-6 mg, Oral, EVERY 3 HOURS PRN, Starting on Fri07/21/19 at 1100, Until Louisa 07/22/19 at 1847, Pain, Severe pain (7-10), 4mg to start; give extra 2mg in 30-60min if needed, Routine 0311 (Given - Provider: Hugh L Silviculture Professor, RN)0614 (Given - Provider: Hugh Lombardi RN)0930 (Given - Provider: Kassandra Bassett, RN)1248 (Given - Provider: Kassandra Bassett, RN)1602 (Given - Provider: Jeri Galloway RN) HYDROmorphone (Dilaudid) tablet 6 mg (CANCELED) 6 mg, Oral, EVERY 4 HOURS PRN, Starting on Louisa 07/22/19 at 1846, Until Fri07/23/19 at 0737, Pain, for severe pain (7-10), May give an additional 2 mg once if pain not relieved in 30-60 minutes., Routine 1854 (Given - Provider: Mercedes Poon RN) 0009 (See Alternative - Provider: Jamee Turcios RN)0418 (Given - Provider: Jamee Turcios RN - Comment: witnessed by Griselda Encinas RN) lidocaine (XYLOCAINE) 10 mg/mL (1 %) injection 3 mg 3 mg (0.3 mL), Subcutaneous, ONCE PRN, 1 dose, Starting on Fri07/20/19 at 1527, Until 07/24/19 at 1414, for discomfort with PIV insertion, Routine ondansetron (ZOFRAN) injection 4 mg 4 mg, Intravenous, EVERY 8 HOURS PRN, Starting on Fri07/20/19 at 1527, Until 07/24/19 at 1414, Nausea, Routine sodium chloride 0.9 % (flush) flush 5-20 mL 5-20 mL, Intravenous, EVERY 1 MIN PRN, Starting on Fri07/20/19 at 1527, Until 07/24/19 at 1414, flush, Flush pertains to all indwelling lines. Flush per protocol found in the job aid using the link provided on this medication record., Routine Linked Groups Order Group 1: ketorolac (TORADOL) injection 15 mg (COMPLETED) 15 mg, Intravenous, EVERY 6 HOURS, 5 doses, First dose on Fri07/20/19 at 1545, Last dose on Fri07/21/19 at 1545, Routine Followed by ibuprofen (Advil;Motrin) tablet 600 mgJump to med 600 mg, Oral, EVERY 6 HOURS, First dose on Fri07/21/19 at 2145, Until Discontinued, - Begin after ketorolac discontinued. , Routine Group 2: HYDROmorphone (Dilaudid) tablet 4 mgJump to med 4 mg, Oral, EVERY 3 HOURS PRN, Starting on Fri07/23/19 at 0745, Until 07/24/19 at 1414, Pain, Routine documented in this encounter Care Teams Commercial Leasing Manager Relationship Specialty Start Date End Date Eevlyne Hunt, METAL ANNEALER [address] [place] [address] PCP - General Internal Medicine 09/23/17 documented as of this encounter
--- OUTSIDE RECORDS SUMMARY | 2023-12-01 02:18 | XMS_ITS | Encounter Summary ---
Author Organization [facility]ly [facility] Address [facility] [place] [address] Care Team Providers Care Citrus Picker Name Role Phone Evelyne Hunt Dat STEVEN Primary Care Provider [phone] Encounter Details Date Type Department Care Team (Late st Contact Info) Description 08/10/2019 Telephone [place] [phone] Natalie Vallejo MD [facility] DR [place] [address] Social History Tobacco Use Types Packs/Day Years [...] encounter Miscellaneous Notes * Telephone Encounter - Natalie Vallejo MD - 08/10/2019 4:22 PM EDT Returned call to the patient and clarified questions about prognosis and treatment. * Telephone Encounter - Natalie Vallejo MD - 08/10/2019 4:22 PM EDT ----- Message from Dali Easton sent at 08/10/2019 11:16 AM EDT ----- Hi Dr. Vallejo, This patient called (you had spoke to her earlier) and said that there was a lot of information given to her and she has some additional questions that she would like to speak to you about it possible. She is asking if you could call her later this afternoon if you get a moment, she can be reached at [phone] Thank you,Elizabeth documented in this encounter Plan of Treatment Upcoming Encounters Date Type Department Care Team (Latest Contact Info) Description 12/25/2023 9:[address] Scan at [place] [phone] Xavier Malhotra MD [facility] [place] [address] 12/29/2023 Hospital Encounter Electrophysiology Lab at [place] [phone] Xavier Malhotra MD [facility] [place] [address] Paroxysmal atrial fibrillation 12/29/2023 7:30 AM EDT - 12/29/2023 12:00 PM EDT Surgery Electrophysiology Lab at [place] [phone] Xavier Malhotra MD [facility] [place] [address] ELECTROPHYSIOLOGY PROCEDURE 01/14/2024 10:40 AM EDT Office Visit Cardiology at [address] [phone] Carmen Castaneda PA [facility] [place] [address] Scheduled Procedures Name Priority Associated Diagnoses Date/Ti me TRANSESOPHAGEAL ECHO DURING CATH/EP PROCEDURE Paroxysmal atrial fibrillation 12/29/2023 7:30 AM EDT documented as of this encounter Visit Diagnoses Not on filedocumented in this encounter Care Teams Citrus Picker Relationship Specialty Start Date End Date Evelyne Hunt APRN [address] [place] [address] PCP - General Internal Medicine 09/23/17 documented as of this encounter
--- OUTSIDE RECORDS SUMMARY | 2023-12-01 02:18 | XMS_ITS | Encounter Summary ---
Author Organization [facility] [place] [address] Care Team Providers Care Communication Instructor Name Role Phone Evelyne Hunt APRN Primary Care Provider [phone] Reason for Visit * Auth/Cert Specialty Diagnoses / Procedures Referred By Contac t Referred To Contact Diagnoses PELVIC MASS Procedures PRO EDER SALP-OOPH W/OMENTECT, FREDI, RAD DISSECT @HYSTERECTOMY, FREDI, BSO, DEBULKING (WRVU 34.13) Referral ID Status Reason Start Date Expiration Date Visits Re quested Visits Authorized [id number] 1 1 Encounter Details Date Type Department Care Team (Latest Contact Info) Description 07/20/2019 5:58 AM EDT - 07/24/2019 12:14 PM EDT Hospital Encounter 1 [place] [address] Pasquale Vallejo MD [facility] [place] [address] Pelvic mass Discharge Disposition: Home Social History Tobacco Use [...] Sign Reading Time Taken Comments Blood Pressure 120/82 07/24/2019 8:13 AM EDT Pulse 77 07/23/2019 12:11 AM EDT Temperature 37 ??C (98.6 ??F) 07/24/2019 8:13 AM EDT Respiratory Rate 20 07/24/2019 8:13 AM EDT Oxygen Saturation 96% 07/24/2019 8:13 AM EDT Inhaled Oxygen Concentration - - Weight 66.8 kg (147 lb 4.3 oz) 07/24/2019 7:34 A M EDT Height 165.1 cm (5' 5) 07/20/2019 6:18 AM EDT Body Mass Index 24.51 07/20/2019 6:18 AM EDT documented in this encounter Discharge Summaries * Misha Ding MD - 07/24/2019 11:15 AM EDT Images from the original note were not included. Discharge Summary Patient Name: Gabi Luna Patient Age: 58 y.o. Language: Luxembourger Race: White Ethnicity: Not nor Admit date: 07/20/2019 Discharge date and time: 07/24/2019 Attending Physician: Pasquale Vallejo MD Discharge Physician: Gabriela Singh MD Follow-up Recommendations for Providers: -Staple removal with Dr. Harrison on 07/29 or 08/01 (Dr. Harrison is going to arrange with Ivana) -Follow-up with Dr. Vallejo on 08/10/19 at 9:30AM via telephone visit Inpatient Provider Contact Information: Dr. Pasquale Vallejo, [facility] Gynecologic Oncology, Discharge Diagnoses (Hospital Problems) [...] Result Value Ref Range Surgical Pathology Report [id number] Location: OR; OR26; A The signing pathologist has (i) examined the relevant preparation(s) for the specimen(s) and (ii) rendered or confirmed the diagnosis(es). . Frozen Section FROZEN SECTION DIAGNOSIS AFS - Left tube and ovary: Carcinoma, favor endometrioid type 07/20/19 09:27 Electronically signed by: Lani Arceo DO Verified: 07/20/2019 Pathologist Performed at: [place], [place], [place] This intraoperative consultation should be interpreted as a preliminary diagnosis pending review of the entire specimen and special studies, if any. Pending Studies and Lab Data: Final pathology PEND Discharge Conditions/Prognosis: stable Discharge to: Home Updated Allergies/ADRs: Allergies Allergen Reactions ??? Penicillins CIS - Anaphylaxis Immunizations Given this Hospitalization: Immunization History Administered Date(s) Administered ??? Influenza Vaccine (Novel) [id number], Injectable 04/06/2009 Discharge Medications: Your Medications New [...] PATIENT DISCHARGE INSTRUCTIONS Gynecologic Oncology phone number: [phone]. After hours and on weekends please call hospital automatic profile shaper operator at [phone] and ask for Gynecologic Oncologist coffee plantation worker. Call your doctor if you develop: --A [...] plenty of fluids. Bowel regimen: Please use addie-colace (senna-S or docusate-senna) 1-2 tablets twice daily [...] AM Pasquale Vallejo MD [place]necology [place] [facility] [place] Arrive at: Home [phone] Please do not come in for this visit. Your provider will call you at the number you provided. Future Orders Complete By Expires Walker rolling [EQ134 Custom] As directed Process Instructions: Scheduling Instructions: Comments: Gabi Eber Luna [address] [facility] [address] (home) [phone] (cell) Diagnosis: post-operative with Unsteady gait Significant weakness, ataxia or gait abnormality Patient's: Hgt: 165.1 cm Wgt: 66.1 kg VENDOR: [facility] @ [place], [place] Ordering: Front wheel walker Deliver to pt's hospital room #: 114a Questions: Vendor Name/Contact information: [facility] Discharge References/Attachments None Provider Contact Information: Evelyne Hunt, ARTERIAL EMBALMER [phone] documented in this encounter Discharge Instructions * Patient Instructions* Nathaly Zamora PA - 07/20/2019 7:27 AM EDT Images from the original note were not included. PATIENT DISCHARGE INSTRUCTIONS Gynecologic Oncology phone number: [phone]. After hours and on weekends please call hospital automatic profile shaper operator at [phone] and ask for Gynecologic Oncologist coffee plantation worker. Call your doctor if you develop: --A [...] plenty of fluids. Bowel regimen: Please use addie-colace (senna-S or docusate-senna) 1-2 tablets twice daily [...] answered. Pain adequately controlled. Left to the North Entrance with all belongings (including walker). To [...] HTN and HLD; ECHO 05/05/19 LVEF 60-65%, Dental Technology Advisor is Dr. Toure. Vital signs wnl. Hemodynamically [...] daily -- Zofran prn nausea -- No DC meds due to bowel resection : Voiding [...] 2:19 PM EDT OFFICE OF CARE MANAGEMENT Electric Meter Tester Helper Discharge Note Patient plan of care discussed in multidisciplinary rounds and assessment for continuing care and discharge needs. [facility]: 3 INSURANCE: Payor: MVP / Plan: MVP [place] / Product Type: *No Product type* / SECONDARY INSURANCE: N/A DECISION MAKER: Full Code <no information> Patient continues to require hospitalization. Current Referral in place: [facility] cancelled. Electric Meter Tester Helper to follow with team and family to assist with discharge needs when patient ready for discharge. Katelyn Winkler RN Case Management pgr [phone] * Katelyn Winkler RN - 07/23/2019 8:14 AM EDT The patient has been provided a list of DME vendors which serve their preferred geographic area. Patient requests referral to [facility] Loc[facility] @ [place], [place] Expected date of discharge: 07/23/2019. NEED WALKER TODAY Referral routed to the Floor Worker [place] for matching with agency/vendor and to provide any required information. * Katelyn Winkler RN - 07/23/2019 8:12 AM EDT The patient has been provided a list of Home Health Agencies which serve their preferred geographicarea. Patient requests referral to [facility]. PHONE: [phone] FAX: [phone]. Expected date of discharge: 07/23/2019. Referral routed to the Floor Worker [place] for matching with agency/vendor and to provide [...] HTN and HLD; ECHO 05/05/19 LVEF 60-65%, Dental Technology Advisor is Dr. Toure. Vital signs wnl. Hemodynamically [...] daily -- Zofran prn nausea -- No DC meds due to bowel resection : Wong [...] bowel resection, and ex lap. Admitted to [facility] from [facility]. Pain incisional, PRN dilauded given 4mg. Pain [...] 07/22/2019 3:02 PM EDT Patient moving to [facility], report called to Mercedes ANDRES, Patients belongings gathered for transpo. * Mandeep Dietz - 07/22/2019 9:56 AM EDT TAP block resolved appropriately. No residual weakness/numbness/decreased sensation in block region. No sign of infection at injection site. Tolerating POs appropriately. Does report pain as block wore off, now controlled with PO and SCIENTIFIC HELPER. Of note patient does report left knee [...] hours). She did not use her Dilaudid SCIENTIFIC HELPER overnight. Has a minimal appetite; ate a [...] replaced. : Wong draining clear, yellow urine. Early Childhood Teacher: peripad with scant staining Extremities: Numbness over [...] blanket for abdominal bracing applied. Will discontinue SCIENTIFIC HELPER today and continue to monitor. Will also [...] Ordered for ketorolac-> ibuprofen, Tylenol, with Dilaudid SCIENTIFIC HELPER as wellas PO. Alert and oriented. Heating pad in place. -- Will discontinue SCIENTIFIC HELPER as pain well controlled on PO -- PT and OT following; appreciate recommendations Cardiovascular: History of aortic stenosis, bicuspid aortic valve, SVT, HTN and HLD; ECHO 05/05/19 LVEF 60-65%, Dental Technology Advisor is Dr. Toure. Vital signs wnl. Hemodynamically [...] daily -- Zofran prn nausea -- No DC meds due to bowel resection : Wong [...] Laird. Anita Christiansen MD PGY3 Gynecologic Oncology #[id number] 07/22/2019 I have reviewed and concur with [...] down : Wong draining clear, yellow urine. Early Childhood Teacher: peripad with scant staining Extremities: No lower [...] acetaminophen, with hydromorphone IV and po and SCIENTIFIC HELPER ordered. Alert and oriented. Heating pad in place. -Transition off SCIENTIFIC HELPER to PO narcotics once tolerating regular diet [...] -holding home Lipitor -ECHO 05/05/19 LVEF 60-65% -Dental Technology Advisor is Dr. Toure Pulmonary: Adequate spO2 on 2LNC, lungs clear, no concerns, will wean as tolerated - Encourage incentive spirometry GI: S/p rectosigmoid resection and reanastimosis. Denies nausea, vomiting. Tolerating po fluids. Hungry and ordered breakfast. -Advance diet as tolerated. -pericolace/miralax standing with ondansetron prn. -No DC meds due to bowel resection : Wong [...] S: Ivana reports adequate pain control with SCIENTIFIC HELPER. Passing gas, not yet had a bowel [...] her abdomen but it is improved on SCIENTIFIC HELPER. She does feel a little sleepy, she [...] : Wong draining clear, orange-colored colored urine. Early Childhood Teacher: peripad with scant staining Extremities: No lower [...] period. Neuro: Pain now improved on hydromorphone SCIENTIFIC HELPER. s/p TAP, ketorolac-> ibuprofen, acetaminophen, with hydromorphone IV and po and SCIENTIFIC HELPER now ordered. Alert and oriented. Requested heating pad ordered Cardiovascular: Vital signs wnl. Hemodynamically stable, no evidence of bleeding. -Daily CBC -h/o aortic stenosis, bicuspid aortic valve, SVT, hyperlipidemia- cont home diltiazem with diltiazem prn palpitations -will hold HCTZ for now but resume likely POD#1 or 2 -holding home Lipitor -ECHO 05/05/19 LVEF 60-65% -Dental Technology Advisor is Dr. Toure Pulmonary: Adequate spO2 on [...] 07/20/2019 3:15 PM EDT Received report from priti in PACU. Arrived to room 209 at 15:15. A&O x4. VSS. Pain 6/10. IS teaching completed. SCD's ordered. Oriented to use of call sun, bed.chair alarm, and 2 West falls prevention program. Will check MD orders and continue to monitor. * Priti Mcgraw RN - 07/20/2019 2:17 PM EDT 1215 patient arrived to PACU from OR. Report received from Dr. Ding.. 1225 Pt thriving in pain, c/o pressure in the lower pelvic region and left side. Pt asking to have wong removed. Bladder scan performed and no urine noted in bladder. Dr. Ding paged. 1228 - [place] fell out during patient being restless r/t pain. 1230 - wong flushed at Dr. Ding recommendation and pain medication given see I/O. 1300 - Dr. Ding paged second time r/t pt pain and discomfort. Dr. Ding stated the wong cannot be removed. Recommendation was to give more pain medication and that a SCIENTIFIC HELPER may be needed. Informed MD that wong was not putting out a lot of urine. 1309 - Bladder scan performed for second time, see I/O 1315 - Dr. Ding ordered SCIENTIFIC HELPER and obtained, See JUN. 1330 - Pt becoming less restless with SCIENTIFIC HELPER 1331- Dr. Ding in to see patient [...] this time. 1510 - Pt transferred to [facility] via transportation. Pt had all her personal belongings at transfer. White bags of clothes, computer bag, and large cloth bag documented in this encounter H&P Notes * Pasquale Vallejo MD - 07/20/2019 6:40 AM EDT Inpatient FINISHING AREA OPERATOR - Admission Interval Note I have reviewed [...] Outcome: Ongoing (Interventions Implemented as Appropriate) 07/23/19 7781 Plan of Care Review Progress progress towards functional goals is fair Coping/Psychosocial Plan Of Care Reviewed With patient OUTCOME EVALUATION NOTE: OUTCOME SUMMARY: Ivana is POD #3 for a TAHBSO, ex [...] Total Evaluation Minutes, Occupational Therapy: 55 Pager: [phone] JUAN Shen Occupational Therapy Rehabilitation Department * Plan of Care - Machelle Lemon PT - 07/23/2019 11:15 AM EDT 07/23/19 1115 Rehab Evaluation Document Type contact Total Evaluation Minutes, Physical Therapy 0 Met with pt in am, asked to be medicated. Returned to see pt at scheduled time. Pt was tired after showering with OT. Plan to d/c home at 1pm. FWW delivered to pt's room. No PT needs. Spoke with caremgnehemiah, message left for ARTERIAL EMBALMER * Plan of Care - Jamee Turcios [...] good effect. Midline incision clean and intact. [place] intact. Covered with ABD pad and tape, [...] OUTCOME EVALUATION NOTE: OUTCOME SUMMARY: Patient stated 4-7 pain today. Scheduled tylenol and toradol and PRN dilaudid given with good effect. SCIENTIFIC HELPER d/c today. Wong d/c today, adequate UOP. No BM this shift, active bowel sounds. Left kneestill has some numbness. She worked with PT/OT today. She ambulated to the BR and was ambulating inhallway with walker, doing very well. She is tolerating her regular diet, no nausea. Midline incision has some serous drainage, dressing changed x1. Rested between care, transferred to [facility], see other progress note. PLAN MOVING FORWARD: [...] 34.13) performed by Pasquale Vallejo MD at [facility] MAIN OR Social History: Patient lives with her Home Setup: One level home with 1 QUEENIE. Bathroom with walk-in shower, shower chair and grab bar. DME: none Baseline ADL/Mobility: Pt is fully independent with ADL/IADL tasks at baseline and ambulates without assist. 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 She reports that her is able to [...] commode with CGA and FWW, independent with addie-care, assist with clothing management Transfer: CGA with [...] and measurable assessment of functional outcome. Pager: [phone] Love Crooks OT 07/22/2019 Occupational Therapy Rehabilitation [...] with a built in seat, has 2 malay shepherds, property consultant Precautions/Special Considerations: Full code, High risk for [...] Therapy: 40(TE-Fx3) Shani Monsivais PT, DPT Pager: [phone] Physical Therapy Inpatient Rehabilitation Department * Plan [...] ?? OUTCOME SUMMARY: ?? Pain managed with SCIENTIFIC HELPER, tylenol and PO dilaudid and Ibuprofen. Patient [...] VS, assess patients level of sedation r/t SCIENTIFIC HELPER, and record patient's I+Os q4hr. Weights measured daily. Encourage IS use and PO fluid intake. Cluster care to promote rest. ?? INDIVIDUALIZED FALL PREVENTION INTERVENTIONS: High Fall Risk ?? Patient-specific fall risk factors per assessment: [current deficits]: ??Patient's current risk factors include: abdominal pain, PIV, SCDs, SCIENTIFIC HELPER and PO Opioid use for pain management, [...] OUTCOME EVALUATION NOTE: OUTCOME SUMMARY: Patient stated 3-6/10 pain today in abdomen, SCIENTIFIC HELPER in use, scheduled tylenol and toradol, PRN PO dilaudid given x2. Goal is to d/c SCIENTIFIC HELPER tomorrow. Patient UOP via wong averages to [...] continue to monitor. PLAN MOVING FORWARD: D/c SCIENTIFIC HELPER D/c Herminio HAQUE Pain control INDIVIDUALIZED FALL [...] Implemented as Appropriate) 07/21/19 0153 07/21/19 0901 07/21/19 1500 Daily Care Interventions Self-Care Promotion independence [...] Participants patient;nursing * Plan of Care - Machelle Lemon, PT - 07/21/2019 3:29 PM EDT [...] 34.13) performed by Pasquale Vallejo MD at [facility] MAIN OR Social History: , lives in a one level home with one QUEENIE, walk in shower with a built in seat, has 2 malay shepherds, property consultant Precautions/Special Considerations: SVT, , impaired sensation in L knee, fall risk, midline incision, SCIENTIFIC HELPER, wong, IVs Mobility and Positioning Recommendations: ?? [...] for evaluation today. Pain: 5/10, dilaudid and SCIENTIFIC HELPER Vital Signs: SpO2: 96 % on RA, [...] Total Evaluation Minutes, Physical Therapy: (P) 35 MACHELLE LEMON, PT Pager: [phone] Physical Therapy Inpatient Rehabilitation Department * Initial Assessments - Katelyn Winkler RN - 07/21/2019 3:09 PM EDT Office [...] Primary care provider on file: Evelyne Hunt, ARTERIAL EMBALMER [phone] ?? Advance Directive on file and Code Status: <no information>, Full Code, ?? If AD's have not been completed [place] would be surrogate decision maker per [place] surrogate decision making law. ?? Any patient receiving care at [facility] [place] must abide by [place] law. The hierarchy for surrogate decision making [...] (i) ?The agent with financial power of deputy attorney general or a conservator appointed in accordance with RSA 464-A. (j) The guardian of the patient???s estate. ?? Patient???s Functional Status: Independent ?? Living Situation: ?? [address] [facility] [address] ?? Supports: ?? Assessment:? Patient with no apparent RNCM/SW needs at this time. No housing, transportation, insurance, resources concerns identified at this time. Supports in place to achieve a safe post-hospital transition. No identified barriers to accessing necessary care and/or follow-up after discharge. ?? Plan:?? Patient to d/c to home via private car when medically ready.? maker up folding/Laboratory Scientist will continue to follow patient???s progress and remain available if situation changes for coordination of care, psychosocial support and/or discharge planning. ?? Katelyn Winkler RN Pager [phone] * Plan of Care - Hugh Lombardi RN - 07/21/2019 2:01 AM EDT Problem: Patient Care Overview Goal: Plan of Care Review Outcome: Ongoing (Interventions Implemented as Appropriate) 07/20/19205707/21/19152 Plan of Care Review Progress -- progress toward functional goals as expected Coping/Psychosocial Plan Of Care Reviewed With patient -- OUTCOME EVALUATION NOTE: OUTCOME SUMMARY: Pain managed with SCIENTIFIC HELPER, tylenol, Ketoralac, and PO dilaudid. Patient tolerating [...] VS, assess patients level of sedation r/t SCIENTIFIC HELPER, and record patient's I+Os q4hr. Weights measured daily. Encourage IS use and PO fluid intake. Cluster care to promote rest. INDIVIDUALIZED FALL PREVENTION INTERVENTIONS: High Fall Risk Patient-specific fall risk factors per assessment: [current deficits]: ??Patient's current risk factors include: abdominal pain, PIV, SCDs, SCIENTIFIC HELPER and PO Opioid use for pain management, [...] Vallejo MD - 07/20/2019 4:46 PM EDT [facility] [place] Patient Name: Gabi Luna : [id number] MR#: [id number] Case Date: 07/20/2019 Surgeon: Surgeon(s) and Role: [...] tumor studding over the anterior and posterior jkf-eg-fzonydwocfqgt. The right ovary appeared irregular and multicystic [...] Pelvic wash SPECIMEN TO PATHOLOGY O.R. 26 [id number] Frozen PELVIC MASS Left Tube and Ovary [...] store? No SPECIMEN TO PATHOLOGY PELVIC MASS Addie-Aortic Lymph Nodes biopsy No 07/20/2019 10:24 AM [...] Re-draping for closure: Yes HPI/Surgical Indications: Gabi Luna is a 58 y.o. postmenopausal woman who [...] entire procedure. Misha Ding MD PGY4 07/20/2019 IPasquale MD, attest that I performed this surgery with the assistance of a resident. Iwas present and participated in the entire surgery, from start to finish, as the primary and attending surgeon of record. documented in this encounter Plan of Treatment Upcoming Encounters Date Type Department Care Team (Latest Contact Info) Description 12/25/2023 9:[address] [place] [address] Xavier Malhotra MD [facility] [place] [address] 12/29/2023 Hospital Encounter Electrophys[place] [address] Xavier Malhotra MD [facility] [place] [address] Paroxysmal atrial fibrillation 12/29/2023 7:30 AM EDT - 12/29/2023 12:00 PM EDT Surgery Electrophys[place] [address] Xavier Malhotra MD [facility] [place] [address] ELECTROPHYSIOLOGY PROCEDURE 01/14/2024 10:40 AM EDT Office Visit Cardiology at [address] [address] Carmen Castaneda PA [facility] [place] [address] Scheduled Procedures Name Priority Associated Diagnoses Date/Ti [...] METABOLIC PANEL Routine 07/21/2019 2:35 AM EDT NON-DOUPER FINAL REPORT Routine 07/20/2019 11:42 AM EDT [...] PATHOLOGY REPORT Routine 07/20/2019 8:52 AM EDT NON-DOUPER FINAL REPORT Routine 07/20/2019 8:33 AM EDT CYTOPATHOLOGY NON-GYNECOLOGICAL Routine 07/20/2019 8:33 AM EDT Eder Salp-Ooph W/Omentect, Fredi, Rad Dissect ([id number]) Yes 07/20/2019 7:31 AM EDT PELVIC MASS POCT GLUCOSE Routine 07/20/2019 6:17 AM EDT documented in this encounter Results * Green Tube HOLD (07/24/2019 3:24 AM EDT) Pathologist Bren Green Hold Sample in lab. [facility] Blood specimen (specimen) Venous Draw / Unknown 07/24/2019 3:24 AM EDT 07/24/2019 3:58 AM EDT Nathaly SEARS CHEMISTRY ORDERABLES [facility] [place] [address] * Differential, Automated (07/24/2019 3:24 AM EDT) [facility] Neutrophil % 61.5 % [facility] Neutrophil Absolute 3.70 1.70 - 6.10 x10(3)/[facility] Lymph % 22.6 % [facility] Lymphocytes Abs 1.4 0.9 - 3.2 x10(3)/[facility] Monocyte % 8.0 % [facility] Monocyte Abs 0.5 0.3 - 0.9 x10(3)/[facility] Eos % 6.6 % [facility] Eosinophils Abs 0.4 0.0 - 0.4 x10(3)/[facility] Basophil % 1.0 % [facility] Baso Absolute 0.1 0.0 - 0.1 x10(3)/[facility] Immature Gran % 0.30 % [facility] Comment: Immature granulocytes(IG's)percentage and absolute count will include metamyelocytes, myelocytes, and promyelocytes. Blood smears from CBCs yielding IG's will be scanned manually for concordance. If this scan disagrees with the automated IG or if promyelocytes are noted, a manual differential will be performed. Immature Gran Absolute 0.02 0.00 - 0.04 x10(3)/[facility] Blood specimen (specimen) 07/24/2019 3:24 AM EDT 07/24/2019 3:58 AM EDT Narrative Resulting Agency Comment Spec In Lab Nathaly SEARS HEMATOLOGY ORDERABLE S [facility] [place] [address] * (ABNORMAL) Hemogram (07/24/2019 3:24 AM EDT) [facility] White Blood Cell 6.0 4.0 - 9.5 x10(3)/mc L [facility] Red Blood Cell 3.30(L) 4.00 - 5.21 x10(6)/ L [facility] Hemoglobin 11.2(L) 11.7 - 15.5 gm/dL [facility] Hematocrit 34.1(L) 35.7 - 45.8 % [facility] Mean Cell Volume 103.3(H) 82.6 - 94.4 fL [facility] Mean Cell Hemoglobin 33.9(H) 27.1 - 32.0 pg [facility] Mean Cell Hemoglobin Concentration 32.8 31.7 - 35.0 gm/dL [facility] Platelet 232 145 - 357 x10(3)/mc L [facility] RDW Standard Deviation 43.5 37.0 - 46.0 fL [facility] RDW coefficient of variation 11.5 11.5 - 14.1 % [facility] Mean Platelet Volume 9.7 7.6 - 12.9 fL [facility] NRBC% auto 0.0 % [facility] NRBC Absolute 0.000 0.000 - 0.000 x10(3)/ L [facility] Blood specimen (specimen) 07/24/2019 3:24 AM EDT 07/24/2019 3:58 AM EDT Narrative Resulting Agency Comment Spec In Lab Nathaly SEARS HEMATOLOGY ORDERABLE S Performing Organization Address City/State/[facility] Co de Phone Number [facility] [place] [place] [address] * Differential, Automated (07/23/2019 3:09 AM EDT) Neutrophil % 66.9 % [facility] Neutrophil Absolute 4.50 1.70 - 6.10 x10(3)/[facility] LABORATORY Lymph % 19.1 % [facility] Lymphocytes Abs 1.3 0.9 - 3.2 x10(3)/[facility] LABORATORY Monocyte % 8.0 % [facility] Monocyte Abs 0.5 0.3 - 0.9 x10(3)/[facility] LABORATORY Eos % 4.7 % [facility] Eosinophils Abs 0.3 0.0 - 0.4 x10(3)/[facility] LABORATORY Basophil % 0.9 % [facility] Baso Absolute 0.1 0.0 - 0.1 x10(3)/[facility] LABORATORY Immature Gran % 0.40 % [facility] Comment: Immature granulocytes(IG's)percentage and absolute count will include metamyelocytes, myelocytes, and promyelocytes. Blood smears from CBCs yielding IG's will be scanned manually for concordance. If this scan disagrees with the automated IG or if promyelocytes are noted, a manual differential will be performed. Immature Gran Absolute 0.03 0.00 - 0.04 x10(3)/[facility] LABORATORY Blood specimen (specimen) 07/23/2019 3:09 AM EDT 07/23/2019 3:22 AM EDT Narrative Resulting Agency Comment Spec In Lab Misha Ding MD HEMATOLOGY ORDERAB LES [facility] [place] [address] * (ABNORMAL) Hemogram (07/23/2019 3:09 AM EDT) White Blood Cell 6.7 4.0 - 9.5 x10(3)/mc L [facility] Red Blood Cell 3.06(L) 4.00 - 5.21 x10(6)/mc L [facility] Hemoglobin 10.2(L) 11.7 - 15.5 gm/dL [facility] Hematocrit 31.5(L) 35.7 - 45.8 % [facility] Mean Cell Volume 102.9(H) 82.6 - 94.4 fL [facility] Mean Cell Hemoglobin 33.3(H) 27.1 - 32.0 pg [facility] Mean Cell Hemoglobin Concentration 32.4 31.7 - 35.0 gm/dL [facility] Platelet 186 145 - 357 x10(3)/mc L [facility] RDW Standard Deviation 44.6 37.0 - 46.0 fL [facility] RDW coefficient of variation 11.7 11.5 - 14.1 % [facility] Mean Platelet Volume 9.5 7.6 - 12.9 fL [facility] NRBC% auto 0.0 % [facility] NRBC Absolute 0.000 0.000 - 0.000 x10(3)/mc L [facility] Blood specimen (specimen) 07/23/2019 3:09 AM EDT 07/23/2019 3:22 AM EDT Narrative Resulting Agency Comment Spec In Lab Misha Ding MD HEMATOLOGY ORDERAB LES Performing Organization Address [facility] Co de Phone Number [facility] [place] [address] * Magnesium (07/23/2019 3:09 AM EDT) Magnesium 0.78 0.69 - 1.07 mmol/L [facility] Blood specimen (specimen) 07/23/2019 3:09 AM EDT 07/23/2019 3:22 AM EDT Narrative Resulting Agency Comment Spec In Lab Pasquale Vallejo MD CHEMISTRY ORDERABLES Performing Organization Address City/[facility]/ZIP Co de Phone Number [facility] [place] [place] [address] * (ABNORMAL) Basic Metabolic Panel (non-fasting) (07/23/2019 3:09 AM EDT) Glucose 93 65 - 199 mg/dL [facility] Comment:Diabetes: >=200 mg/d L plus symptoms Blood Urea Nitrogen 6(L) 8 - 18 mg/dL [facility] Creatinine 0.47(L) 0.70 - 1.20 mg/dL [facility] Sodium 140 135 - 145 mmol/L [facility] Potassium 3.6 3.5 - 5.0 mmol/L [facility] Comment: Please note: ??Patients with WBC >100,000 may have falsely elevated Potassium levels. ??For accurate Potassium quantification in these patients send serum separator tube (gold top) for subsequent determinations. ??Contact the Clinical Chemistry Laboratory if there are any questions. Chloride 107 98 - 107 mmol/L [facility] Carbon Dioxide 26 22 - 31 mmol/L [facility] Anion Gap 7 5 - 15 mmol/L [facility] Calcium 8.5 8.5 - 10.5 mg/dL [facility] Est Glomerular Filtration Rate 109 >=60 mL/min/1. 73 m?? [facility] Comment: The eGFR was calculated using the CKD-EPI equation. As with all creatinine based estimates of kidney function, eGFR values calculated with the CKD-EPI equation are not accurate in patients with acute kidney failure, extremes of body mass or the acutely ill. [email or web address] eGFR 126 >=60 mL/min/1. 73 m?? [facility] Comment: The eGFR was calculated using the CKD-EPI equation. As with all creatinine based estimates of kidney function, eGFR values calculated with the CKD-EPI equation are not accurate in patients with acute kidney failure, extremes of body mass or the acutely ill. [email or web address] Blood specimen (specimen) 07/23/2019 3:09 AM EDT 07/23/2019 3:22 AM EDT Narrative Resulting Agency Comment Spec In Lab Pasquale Vallejo MD CHEMISTRY ORDERABLES [facility] [place] [address] * Differential, Automated (07/22/2019 2:00 AM EDT) Neutrophil % 71.2 % [facility] Neutrophil Absolute 5.70 1.70 - 6.10 x10(3)/[facility] LABORATORY Lymph % 19.3 % [facility] Lymphocytes Abs 1.5 0.9 - 3.2 x10(3)/[facility] LABORATORY Monocyte % 6.8 % [facility] Monocyte Abs 0.5 0.3 - 0.9 x10(3)/[facility] LABORATORY Eos % 1.8 % [facility] Eosinophils Abs 0.1 0.0 - 0.4 x10(3)/[facility] LABORATORY Basophil % 0.5 % [facility] Baso Absolute 0.0 0.0 - 0.1 x10(3)/[facility] LABORATORY Immature Gran % 0.40 % [facility] Comment: Immature granulocytes(IG's)percentage and absolute count will include metamyelocytes, myelocytes, and promyelocytes. Blood smears from CBCs yielding IG's will be scanned manually for concordance. If this scan disagrees with the automated IG or if promyelocytes are noted, a manual differential will be performed. Immature Gran Absolute 0.03 0.00 - 0.04 x10(3)/[facility] LABORATORY Blood specimen (specimen) 07/22/2019 2:00 AM EDT 07/22/2019 2:08 AM EDT Narrative Resulting Agency Comment Spec In Lab Misha Ding MD HEMATOLOGY ORDERAB LES [facility] [place] [address] * (ABNORMAL) Hemogram (07/22/2019 2:00 AM EDT) White Blood Cell 8.0 4.0 - 9.5 x10(3)/mc L [facility] Red Blood Cell 3.02(L) 4.00 - 5.21 x10(6)/mc L [facility] Hemoglobin 10.2(L) 11.7 - 15.5 gm/dL [facility] Hematocrit 30.8(L) 35.7 - 45.8 % [facility] Mean Cell Volume 102.0(H) 82.6 - 94.4 fL [facility] Mean Cell Hemoglobin 33.8(H) 27.1 - 32.0 pg [facility] Mean Cell Hemoglobin Concentration 33.1 31.7 - 35.0 gm/dL [facility] Platelet 188 145 - 357 x10(3)/mc L [facility] RDW Standard Deviation 44.5 37.0 - 46.0 [facility] LABORATORY RDW coefficient of variation 11.9 11.5 - 14.1 % [facility] Mean Platelet Volume 9.7 7.6 - 12.9 [facility] LABORATORY NRBC% auto 0.0 % [facility] NRBC Absolute 0.000 0.000 - 0.000 x10(3)/mc L [facility] Blood specimen (specimen) 07/22/2019 2:00 AM EDT 07/22/2019 2:08 AM EDT Narrative Resulting Agency Comment Spec In Lab Misha Ding MD HEMATOLOGY ORDERAB LES Performing Organization Address [facility] Co de Phone Number [facility] [place] [address] * Magnesium (07/22/2019 2:00 AM EDT) Magnesium 0.84 0.69 - 1.07 mmol/L [facility] Blood specimen (specimen) 07/22/2019 2:00 AM EDT 07/22/2019 2:08 AM EDT Narrative Resulting Agency Comment Spec In Lab Pasquale Vallejo MD CHEMISTRY ORDERABLES Performing Organization Address City/[facility]/ZIP Co de Phone Number [facility] [place] [address] * (ABNORMAL) Basic Metabolic Panel (non-fasting) (07/22/2019 2:00 AM EDT) Glucose 104 65 - 199 mg/dL [facility] Comment:Diabetes: >=200 mg/d L plus symptoms Blood Urea Nitrogen 7(L) 8 - 18 mg/dL [facility] Creatinine 0.53(L) 0.70 - 1.20 mg/dL [facility] Sodium 137 135 - 145 mmol/L [facility] Potassium 3.8 3.5 - 5.0 mmol/L [facility] Comment: Please note: ??Patients with WBC >100,000 may have falsely elevated Potassium levels. ??For accurate Potassium quantification in these patients send serum separator tube (gold top) for subsequent determinations. ??Contact the Clinical Chemistry Laboratory if there are any questions. Chloride 103 98 - 107 mmol/L [facility] Carbon Dioxide 26 22 - 31 mmol/L [facility] Anion Gap 8 5 - 15 mmol/L [facility] Calcium 8.4(L) 8.5 - 10.5 mg/dL [facility] Est Glomerular Filtration Rate 105 >=60 mL/min/1. 73 m?? [facility] Comment: The eGFR was calculated using the CKD-EPI equation. As with all creatinine based estimates of kidney function, eGFR values calculated with the CKD-EPI equation are not accurate in patients with acute kidney failure, extremes of body mass or the acutely ill. [email or web address]/[facility] [place] eGFR 121 >=60 mL/min/1. 73 m?? [facility] Comment: The eGFR was calculated using the CKD-EPI equation. As with all creatinine based estimates of kidney function, eGFR values calculated with the CKD-EPI equation are not accurate in patients with acute kidney failure, extremes of body mass or the acutely ill. [email or web address]/[facility] [place] Blood specimen (specimen) 07/22/2019 2:00 AM EDT 07/22/2019 2:08 AM EDT Narrative Resulting Agency Comment Spec In Lab Pasquale Vallejo MD CHEMISTRY ORDERABLES Performing Organization Address [facility]/ZIP Co de Phone Number [facility] [place] [address] * (ABNORMAL) Differential, Automated (07/21/2019 2:35 AM EDT) Neutrophil % 84.9 % [facility] Neutrophil Absolute 8.64(H) 1.70 - 6.10 x10(3)/ L [facility] Lymph % 7.1 % [facility] Lymphocytes Abs 0.7(L) 0.9 - 3.2 x10(3)/[facility] LABORATORY Monocyte % 7.4 % [facility] Monocyte Abs 0.8 0.3 - 0.9 x10(3)/[facility] LABORATORY Eos % 0.0 % [facility] Eosinophils Abs 0.0 0.0 - 0.4 x10(3)/[facility] LABORATORY Basophil % 0.2 % [facility] Baso Absolute 0.0 0.0 - 0.1 x10(3)/[facility] LABORATORY Immature Gran % 0.40 % [facility] Comment: Immature granulocytes(IG's)percentage and absolute count will include metamyelocytes, myelocytes, and promyelocytes. Blood smears from CBCs yielding IG's will be scanned manually for concordance. If this scan disagrees with the automated IG or if promyelocytes are noted, a manual differential will be performed. Immature Gran Absolute 0.04 0.00 - 0.04 x10(3)/mc L [facility] Blood specimen (specimen) 07/21/2019 2:35 AM EDT 07/21/2019 2:50 AM EDT Narrative Resulting Agency Comment Spec In Lab Misha Ding MD HEMATOLOGY ORDERAB LES Performing Organization Address City/[facility]/ZIP Co de Phone Number [facility] [place] [address] * (ABNORMAL) Hemogram (07/21/2019 2:35 AM EDT) White Blood Cell 10.2(H) 4.0 - 9.5 x10(3)/[facility] LABORATORY Red Blood Cell 3.28(L) 4.00 - 5.21 x10(6)/[facility] LABORATORY Hemoglobin 11.1(L) 11.7 - 15.5 gm/dL [facility] Hematocrit 33.0(L) 35.7 - 45.8 % [facility] Mean Cell Volume 100.6(H) 82.6 - 94.4 fL [facility] Mean Cell Hemoglobin 33.8(H) 27.1 - 32.0 pg [facility] Mean Cell Hemoglobin Concentration 33.6 31.7 - 35.0 gm/dL [facility] Platelet 224 145 - 357 x10(3)/[facility] LABORATORY RDW Standard Deviation 42.6 37.0 - 46.0 [facility] LABORATORY RDW coefficient of variation 11.7 11.5 - 14.1 % [facility] Mean Platelet Volume 9.4 7.6 - 12.9 [facility] LABORATORY NRBC% auto 0.0 % [facility] NRBC Absolute 0.000 0.000 - 0.000 x10(3)/[facility] LABORATORY Blood specimen (specimen) 07/21/2019 2:35 AM EDT 07/21/2019 2:50 AM EDT Narrative Resulting Agency Comment Spec In Lab Misha Ding MD HEMATOLOGY ORDERAB LES [facility] [place] [address] * (ABNORMAL) Magnesium (07/21/2019 2:35 AM EDT) Magnesium 0.60(L) 0.69 - 1.07 mmol/L [facility] Blood specimen (specimen) 07/21/2019 2:35 AM EDT 07/21/2019 2:50 AM EDT Narrative Resulting Agency Comment Spec In Lab Pasquale Vallejo MD CHEMISTRY ORDERABLES [facility] [place] [address] * (ABNORMAL) Basic Metabolic Panel (non-fasting) (07/21/2019 2:35 AM EDT) Glucose 119 65 - 199 mg/dL [facility] Comment:Diabetes: >=200 mg/d L plus symptoms Blood Urea Nitrogen 8 8 - 18 mg/dL [facility] Creatinine 0.53(L) 0.70 - 1.20 mg/dL [facility] Sodium 138 135 - 145 mmol/L [facility] Potassium 3.9 3.5 - 5.0 mmol/L [facility] Comment: Please note: ??Patients with WBC >100,000 may have falsely elevated Potassium levels. ??For accurate Potassium quantification in these patients send serum separator tube (gold top) for subsequent determinations. ??Contact the Clinical Chemistry Laboratory if there are any questions. Chloride 103 98 - 107 mmol/L [facility] Carbon Dioxide 23 22 - 31 mmol/L [facility] Anion Gap 12 5 - 15 mmol/L [facility] Calcium 8.3(L) 8.5 - 10.5 mg/dL [facility] Est Glomerular Filtration Rate 105 >=60 mL/min/1. 73 m?? [facility] Comment: The eGFR was calculated using the CKD-EPI equation. As with all creatinine based estimates of kidney function, eGFR values calculated with the CKD-EPI equation are not accurate in patients with acute kidney failure, extremes of body mass or the acutely ill. [email or web address] eGFR 121 >=60 mL/min/1. 73 m?? [facility] Comment: The eGFR was calculated using the CKD-EPI equation. As with all creatinine based estimates of kidney function, eGFR values calculated with the CKD-EPI equation are not accurate in patients with acute kidney failure, extremes of body mass or the acutely ill. [email or web address]/[facility] [place] Blood specimen (specimen) 07/21/2019 2:35 AM EDT 07/21/2019 2:50 AM EDT Narrative Resulting Agency Comment Spec In Lab Pasquale Vallejo MD CHEMISTRY ORDERABLES [facility] [place] [address] * Non-Early Childhood Teacher Final Report (07/20/2019 11:42 AM EDT) Diagnosis Discussion [id number] ? Location: 1WST; 0114; A The signing pathologist has (i) examined the relevant preparation(s) for the specimen(s) and (ii) rendered or confirmed the diagnosis(es). . ? Non-Early Childhood Teacher Final DIAGNOSIS Positive for Malignancy Electronically signed by: ??Mirtha Hector MD Verified: ??07/29/2019 ?Pathologist Performed at: ??-[facility] [place], [place], [place] DISCUSSION Diaphragmatic scrapings: Carcinoma (see note). 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 ? Cell block was examined. CLINICAL INFORMATION Specimen Source : Diaphragmatic scrapings Pertinent Clinical Data and Significant Therapy: Pelvic mass Clinical Impression : Pelvic mass Pertinent Radiologic Findings ??: (not provided) Gross Description: Received in ThinPrep vial approximately 20 mL total volume of ? clear, colorless fluid, with light flecks. Total Preparation: Liquid-Based Prep 1; Cell Block 1. 07/29/2019 11:32 AM EDT [facility] Diaphragm Scrape 07/20/2019 11:42 AM EDT 07/20/2019 11:42 AM EDT Pasquale Vallejo MD PATHOLOGY/CYTOLOGY O TAMICA Performing Organization Address [facility] Co de Phone Number [facility] [place] [address] * Cytopathology Non-Gynecological (07/20/2019 11:42 AM EDT) AP Specimen 07/20/2019 11:4 2 AM EDT 07/20/2019 11:42 AM EDT Narrative [facility] - 07/20/2019 11:42 AM EDT Specimen requisition ordered. ??Separate Pathology report to follow Pasquale Vallejo MD PATHOLOGY/CYTOLOGY O TAMICA Performing Organization Address [facility] Co de Phone Number [facility] [place] [address] * Specimen to Pathology (07/20/2019 11:15 AM EDT) AP Specimen 07/20/2019 11:1 5 AM EDT 07/20/2019 11:15 AM EDT Narrative [facility] - 07/20/2019 11:15 AM EDT Specimen requisition ordered. ??Separate Pathology report to follow Pasquale Vallejo MD PATHOLOGY/CYTOLOGY O TAMICA Performing Organization Address [facility] Co de Phone Number [facility] [place] [address] * Specimen to Pathology (07/20/2019 10:48 AM EDT) AP Specimen 07/20/2019 10:4 8 AM EDT 07/20/2019 10:48 AM EDT Narrative [facility] - 07/20/2019 10:48 AM EDT Specimen requisition ordered. ??Separate Pathology report to follow Pasquale Vallejo MD PATHOLOGY/[place] [address] * Specimen to Pathology (07/20/2019 10:33 AM EDT) AP Specimen 07/20/2019 10:3 3 AM EDT 07/20/2019 10:33 AM EDT Narrative [facility] - 07/20/2019 10:33 AM EDT Specimen requisition ordered. ??Separate Pathology report to follow Pasquale Vallejo MD PATHOLOGY/CYTOLOGY O TAMICA Performing Organization Address [facility]/[place] [address] * Specimen to Pathology (07/20/2019 10:33 AM EDT) AP Specimen 07/20/2019 10:3 3 AM EDT 07/20/2019 10:33 AM EDT Narrative [facility] - 07/20/2019 10:33 AM EDT Specimen requisition ordered. ??Separate Pathology report to follow Pasquale Vallejo MD PATHOLOGY/CYTOLOGY O TAMICA Performing Organization Address City/[facility]/[place] [address] * Specimen to Pathology (07/20/2019 10:24 AM EDT) AP Specimen 07/20/2019 10:2 4 AM EDT 07/20/2019 10:24 AM EDT Narrative [facility] - 07/20/2019 10:24 AM EDT Specimen requisition ordered. ??Separate Pathology report to follow Pasquale Vallejo MD PATHOLOGY/[place] [address] * Specimen to Pathology (07/20/2019 10:03 AM EDT) AP Specimen 07/20/2019 10:0 3 AM EDT 07/20/2019 10:03 AM EDT Narrative [facility] - 07/20/2019 10:03 AM EDT Specimen requisition ordered. ??Separate Pathology report to follow Pasquale Vallejo MD PATHOLOGY/CYTOLOGY O TAMICA Performing Organization Address [facility] [place] [place] [address] * Specimen to Pathology (07/20/2019 9:54 AM EDT) AP Specimen 07/20/2019 9:54 AM EDT 07/20/2019 9:54 AM EDT Narrative [facility] - 07/20/2019 9:54 AM EDT Specimen requisition ordered. ??Separate Pathology report to follow Pasquale Vallejo MD PATHOLOGY/CYTOLOGY O TAMICA Performing Organization Address [facility] [place] [place] [address] * Specimen to Pathology (07/20/2019 9:51 AM EDT) AP Specimen 07/20/2019 9:51 AM EDT 07/20/2019 9:51 AM EDT Narrative [facility] - 07/20/2019 9:51 AM EDT Specimen requisition ordered. ??Separate Pathology report to follow Pasquale Vallejo MD PATHOLOGY/CYTOLOGY O TAMICA Performing Organization Address [facility] [place] [address] * Specimen to Pathology (07/20/2019 9:36 AM EDT) AP Specimen 07/20/2019 9:36 AM EDT 07/20/2019 9:36 AM EDT Narrative [facility] - 07/20/2019 9:36 AM EDT Specimen requisition ordered. ??Separate Pathology report to follow Pasquale Vallejo MD PATHOLOGY/CYTOLOGY O RDERABLES Performing Organization Address City/[facility]/[place] [address] * Specimen to Pathology (07/20/2019 9:36 AM EDT) AP Specimen 07/20/2019 9:36 AM EDT 07/20/2019 9:36 AM EDT Narrative [facility] - 07/20/2019 9:36 AM EDT Specimen requisition ordered. ??Separate Pathology report to follow Pasquale Vallejo MD PATHOLOGY/CYTOLOGY O TAMICA Performing Organization Address [facility] [place] [address] * Specimen to Pathology (07/20/2019 9:29 AM EDT) AP Specimen 07/20/2019 9:29 AM EDT 07/20/2019 9:29 AM EDT Narrative [facility] - 07/20/2019 9:29 AM EDT Specimen requisition ordered. ??Separate Pathology report to follow Pasquale Vallejo MD PATHOLOGY/CYTOLOGY O TAMICA Performing Organization Address [facility]/[place] [address] * Specimen to Pathology (07/20/2019 8:53 AM EDT) AP Specimen 07/20/2019 8:53 AM EDT 07/20/2019 8:53 AM EDT Narrative [facility] - 07/20/2019 8:53 AM EDT Specimen requisition ordered. ??Separate Pathology report to follow Pasquale Vallejo MD PATHOLOGY/CYTOLOGY O TAMICA Performing Organization Address [facility] [place] [address] * Surgical Pathology Report (07/20/2019 8:52 AM EDT) Final Diagnosis [id number] ? Location: 1WST; 0114; A The signing [...] node, negative for malignancy (0/1) H - Addie-aortic lymph nodes, excision: ??- One lymph node, [...] Arceo DO Verified: ??07/27/2019 ?Pathologist Performed at: ??-[facility] [place], [place], [place] DISCUSSION The tumor in the left ovary shows different morphologic growth patterns including areas with solid and glandular architecture showing a p53+ p16+(nondiffuse) ER +(strong and diffuse) immunophenotype most compatible with a high-grade [id number] endometrioid carcinoma. There are also foci with [...] ER ?Positive - strong and diffuse ? DC ?Positive - strong and focal ? WT1 ? Positive B12 ?p53 ? Positive ? p16 ? Positive - diffuse ? ER ?Positive - moderate - strong and nondiffuse ? DC ?Positive - strong and focal ? WT1 [...] The assay was performed according to the absorption and adsorption engineer's intructions using anti-MLH-1 ([id number]), anti-MSH-2 ([id number]), anti-MSH-6 (44), and anti-PMS-2 ([id number]) antibodies. CLINICAL INFORMATION Specimen Submitted: A - Left tube and ovary B - Uterus, cervix, right tube and ovary, anterior-posterior pelvic peritoneum C - Anterior pelvic peritoneum D - Tumor on the surface of the recto-sigmoid colon below pelvic rim E - Left pelivic lymph nodes F - Right pelvic lymph nodes G - Omentum H - Addie-aortic lymph nodes I - Left para colic [...] is submitted for frozen section: AFS1: Three advertising sales representative sections of cyst wall with excrescences and solid area. Sleeve Wheel Maker sections in 12 cassettes as follows: ?A1: ??AFS1: Frozen section remnant, three advertising sales representative sections of cyst wall with ? excrescences and solid area ?A2-A4: ??Left ovary, advertising sales representative nodules ?A5-A6: ??Left ovary, advertising sales representative excrescences ?A7: ??Left ovary, advertising sales representative cyst wall ?A8: ??Left fallopian [...] Tube: 7.4 x 0.5 cm, fimbriated. Sections/Processing: Sleeve Wheel Maker sections in 19 cassettes as follows: ?B1: ??Right fallopian tube, fimbriated end, bisected ?B2-B4: ??Right fallopian tube, cross-sections, entirely submitted from distal to ? proximal ?B5: ??Possible additional right fallopian tube cross-sections at cornu ?B6-B13: ??Right ovary, advertising sales representative sections ?B14: ??Anterior cervix ?B15: ??Posterior cervix ?B16: ??Anterior endomyometrium, full thickness ?B17: ??Posterior endomyometrium, full thickness ?B18: ??Anterior myometrial white whorled nodule, advertising sales representative section ?B19: ??Posterior myometrial white whorled nodule, advertising sales representative section C - Labeled/Fixative: Anterior [...] 2.8 x 1.5 x 0.5 cm. Sections/Processing: Sleeve Wheel Maker sections in 8 cassettes as follows: ?E1-E2: [...] 1.5 x 1.0 x 0.6 cm. Sections/Processing: Sleeve Wheel Maker sections in 15 cassettes as follows: ?F1-F2: [...] specimen is firmer than the periphery. Sections/Processing: Sleeve Wheel Maker sections in 3 cassettes as follows: ?G1: ??Sleeve Wheel Maker omentum with lymph node ?G2-G3: ??Sleeve Wheel Maker omentum H - Labeled/Fixative: Periaortic lymph nodes, fresh. Quantity/Size: Single, 1.9 x 1.6 x 0.5 cm. Tissue Description: Adipose tissue with one lymph node, up to 1.5 x 0.7 x 0.3 cm. Sections/Processing: Sleeve Wheel Maker sections in 1 cassettes as follows: ?H1: [...] 0.2 cm thick. Margins: Grossly uninvolved. Sections/Processing: Sleeve Wheel Maker sections in 11 cassettes as follows: ?K1: [...] TissueDescription: Annular portions of foster-pink mucosa. Sections/Processing: Sleeve Wheel Maker section of each is submitted in 1 cassette labeled L1. ??RMO ?Frozen Section FROZEN SECTION DIAGNOSIS AFS - Left tube and ovary: Carcinoma, favor endometrioid type 07/20/19 09:27 Electronically signed by: ??Lani Arceo DO Verified: ??07/20/2019 ?Pathologist Performed at: ??[place] [place], [place] This intraoperative consultation should be interpreted as a preliminary diagnosis pending review of the entire specimen and special studies, if any. 07/27/2019 9:37 AM EDT [facility] COLON STRUCTURE / Unknown 07/20/2019 [...] AM EDT Pasquale Vallejo MD PATHOLOGY/CYTOLOGY O RDERABLES [facility] [place] [address] * Non-Early Childhood Teacher Final Report (07/20/2019 8:33 AM EDT) Diagnosis Discussion [id number] ? Location: [facility]; [facility]; A The signing pathologist has (i) examined the relevant preparation(s) for the specimen(s) and (ii) rendered or confirmed the diagnosis(es). . ? Non-Early Childhood Teacher Final DIAGNOSIS Positive for Malignancy Electronically signed by: ??Mirtha Hector MD Verified: ??07/29/2019 ?Pathologist Performed at: ??-[facility] [place], [place], [place] DISCUSSION Pelvic wash: Carcinoma (see note). 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 ?Cell block was examined. CLINICAL INFORMATION Specimen Source : Pelvic wash Pertinent Clinical Data and Significant Therapy: Pelvic mass Clinical Impression : Pelvic mass Pertinent Radiologic Findings ??: (not provided) Gross Description: Received ??fresh approximately 115 mL total volume of ?? cloudy, red fluid, with light flecks. Total Preparation: Liquid-Based Prep 1; Cell Block 1. 07/29/2019 11:30 AM EDT [facility] Pelvic Washing 07/20/2019 8: 33 AM EDT 07/20/2019 8:33 AM EDT Pasquale Vallejo MD PATHOLOGY/CYTOLOGY O TAMICA Performing Organization Address [facility] Co de Phone Number [facility] [place] [place] [address] * Cytopathology Non-Gynecological (07/20/2019 8:33 AM EDT) AP Specimen 07/20/2019 8:33 AM EDT 07/20/2019 8:33 AM EDT Narrative [facility] - 07/20/2019 8:33 AM EDT Specimen requisition ordered. ??Separate Pathology report to follow Pasquale Vallejo MD PATHOLOGY/CYTOLOGY O TAMICA Performing Organization Address [facility] Co de Phone Number [facility] [place] [place] [address] * POCT Glucose (07/20/2019 6:17 AM EDT) Glucose, POC 97 65 - 199 mg/dL [facility] Comment: Supplemental ranges: <140 mg/dL before meals <180 mg/dL all other times of the day Blood specimen (specimen) 07/20/2019 6:17 AM EDT 07/20/2019 6:17 AM EDT Pasquale Vallejo MD POINT OF CARE TEST O RDMIKALA Performing Organization Address [facility] Co de Phone Number [facility] [place] [address] documented in this encounter Visit Diagnoses Diagnosis Pelvic mass- Primary Abdominal or pelvic swelling, mass or lump, unspecified site Pelvic mass Abdominal or pelvic swelling, mass or lump, unspecified site Paroxysmal atrial fibrillation Atrial fibrillation Paroxysmal atrial fibrillation Atrial fibrillation documented in this encounter Admitting Diagnoses Diagnosis Pelvic mass Abdominal or pelvic swelling, mass or lump, unspecified site documented in this encounter Administered Medications Inactive Administered Medications - up to 3 most recent administrations Medication Order MAR Action Action Date Dose Rate Site acetaminophen (Tylenol) tablet 1,000 mg 1,000 mg, Oral, ONCE, 1 dose, On Fri07/20/19 at 0700, Administer with SIP of H2O only., Day of Surgery (Day of Procedure), Routine Given 07/20/2019 7:18 AM EDT 1,000 mg acetaminophen (Tylenol) tablet 650 mg 650 mg, [...] Given 07/22/2019 9:31 AM EDT 40 mg gabapentin (Neurontin) capsule 600 mg 600 mg, Oral, ONCE, 1 dose, On Fri07/20/19 at 0700, Administer with SIP of H2O only., Day of Surgery (Day of Procedure), Routine Given 07/20/2019 7:18 AM EDT 600 mg heparin (Porcine) subcutaneous injection 5,000 Units 5,000 Units, Subcutaneous, ONCE, 1 dose, On Fri07/20/19 at 0700, Day of Surgery (Day of Procedure), Routine Given 07/20/2019 7:17 AM EDT 5,000 Units Right Lower Quadrant HYDROmorphone (DILAUDID) 1 mg/mL SCIENTIFIC HELPER 50 mL Intravenous, SCIENTIFIC HELPER ONLY, Starting on Fri07/20/19 at 1330, Until Fri07/20/19 at 1533 New Syringe/Cartridg e 07/20/2019 1:30 PM EDT HYDROmorphone (DILAUDID) 1 mg/mL SCIENTIFIC HELPER 50 mL Intravenous, SCIENTIFIC HELPER ONLY, Starting on Fri07/20/19 at 1600, Until Fri07/22/19 at 0722 Rate/Dose Change 07/20/2019 4:53 PM EDT HYDROmorphone (DILAUDID) injection 0.2 mg 0.2 mg, Intravenous, ONCE PRN, 1 dose, Starting on Fri07/23/19 at 1159, Until Fri07/24/19 at 1414, Pain, extreme breakthrough, Routine HYDROmorphone (DILAUDID) injection 0.2-0.4 mg 0.2-0.4 mg, Intravenous, EVERY 5 MIN PRN, Starting on Fri07/20/19 at 1202, Until Fri07/20/19 at 1308, Pain, Give 0.2 mg every 5 minutes PRN for mild to moderate pain (1-5) Give 0.4 mg every 5 minutes PRN for moderate to severe pain (6-10). Hold for respiratory rate less than 10 per minute. Maximum dose 4 mg over one hour. If multiple pain medications are ordered, start with hydromorphone or morphine and use fentanyl for breakthrough pain., PACU Recovery, Routine Given 07/20/2019 1:01 PM EDT 0.4 mg Given 07/20/2019 12:56 PM EDT 0.4 mg Given 07/20/2019 12:49 PM EDT 0.4 mg HYDROmorphone (Dilaudid) tablet 2 mg 2 mg, Oral, ONCE, 1 dose, On Fri07/22/19 at 1745, Routine Given 07/22/2019 5:32 PM EDT 2 mg HYDROmorphone (Dilaudid) tablet 2-4 mg 2-4 mg, Oral, EVERY 4 HOURS PRN, Starting on Fri07/20/19 at 1527, Until Fri07/21/19 at 1054, Pain, Severe pain (7-10), - Initial dose 2 mg. - If pain control not adequate in 60 minutes, give additional 2 mg., Routine Given 07/21/2019 9:01 AM EDT 2 mg Given 07/21/2019 12:37 AM EDT 2 mg HYDROmorphone (Dilaudid) tablet 4 mg 4 mg, Oral, EVERY 4 HOURS PRN, Starting on Louisa 07/22/19 at 1846, Until Fri07/23/19 at 0737, Pain, for moderate pain (4-6), May give an additional 2 mg once if pain not relieved in 30-60 minutes., Routine Given 07/23/2019 12:09 AM EDT 4 mg HYDROmorphone (Dilaudid) tablet 4 mg 4 mg, Oral, ONCE, 1 dose, On Fri07/23/19 at 0800, STAT Given 07/23/2019 7:38 AM EDT 4 mg HYDROmorphone (Dilaudid) tablet 4 mg 4 mg, Oral, EVERY 3 HOURS PRN, Starting on Fri07/23/19 at 0745, Until 07/24/19 at 1414, Pain, Routine Given 07/24/2019 11:04 AM EDT 4 mg Given 07/24/2019 7:34 AM EDT 4 mg Given 07/24/2019 3:04 AM EDT 4 mg HYDROmorphone (Dilaudid) tablet 4-6 mg 4-6 mg, Oral, EVERY 3 HOURS PRN, Starting on Fri07/21/19 at 1100, Until Louisa 07/22/19 at 1847, Pain, Severe pain (7-10), 4mg to start; give extra 2mg in 30-60min if needed, Routine Given 07/22/2019 4:02 PM EDT 4 m g Given 07/22/2019 12:48 PM EDT 4 mg Given 07/22/2019 9:30 AM EDT 6 mg HYDROmorphone (Dilaudid) tablet 6 mg 6 mg, Oral, EVERY 4 HOURS PRN, Starting on Louisa 07/22/19 at 1846, Until Fri07/23/19 at 0737, Pain, for severe pain (7-10), May give an additional 2 mg once if pain not relieved in 30-60 minutes., Routine Given 07/23/2019 4:18 AM EDT 6 mg Given 07/22/2019 6:54 PM EDT 6 mg ibuprofen (Advil;Motrin) tablet 600 mg 600 mg, Oral, EVERY 6 HOURS, First dose on Fri07/21/19 at 2145, Until Discontinued, - Begin after ketorolac discontinued. , Routine Given 07/24/2019 11:03 AM EDT 600 mg Given 07/24/2019 5:12 AM EDT 600 mg Given 07/23/2019 9:59 PM EDT 600 mg ketorolac (TORADOL) injection 15 mg 15 mg, Intravenous, EVERY 6 HOURS, 5 doses, First dose on Fri07/20/19 at 1545, Last dose on Fri07/21/19 at 1545, Routine Given 07/21/2019 4:20 PM EDT 15 mg Given 07/21/2019 9:03 AM EDT 15 mg Given 07/21/2019 3:54 AM EDT 15 mg lactated ringers infusion 1,000 mL, at 100 mL/hr, Intravenous, CONTINUOUS, Starting on Fri07/20/19 at 0700, Until Fri07/20/19 at 1442, Day of Surgery (Day of Procedure) New Bag 07/20/2019 1:26 PM EDT 1,000 mLs 100 mL/hr New Bag 07/20/2019 10:45 AM EDT New Bag 07/20/2019 9:35 AM EDT lactated ringers infusion 100 mL/hr, Intravenous, CONTINUOUS, Starting on Fri07/20/19 at 1545, Until Fri07/22/19 at 1010 New Bag 07/21/2019 7:44 PM EDT 100 mL/hr 100 mL/hr New Bag 07/21/2019 9:46 AM EDT 100 mL/hr 100 mL/hr New Bag 07/20/2019 10:33 PM EDT 100 mL/hr 100 mL/hr magnesium sulfate 2 g in sterile water 50 mL 2 g, Intravenous, ONCE, 1 dose, On Fri07/21/19 at 0645, Administer over 120 Minutes New Bag 07/21/2019 6:41 AM EDT 2 g 25 mL/hr magnesium sulfate 2 g in sterile water 50 mL 2 g, Intravenous, ONCE, 1 dose, On Fri07/23/19 at 0630, Administer over 120 Minutes New Bag 07/23/2019 6:33 AM EDT 2 g 25 mL/hr phenazopyridine (Pyridium) tablet 200 mg 200 mg, Oral, ONCE, On Fri07/20/19 at 0700, 1 dose, Day of Surgery (Day of Procedure) Given 07/20/2019 7:18 AM EDT 200 mg polyethylene glycol (Miralax) packet 17 g [...] Given 07/22/2019 9:31 AM EDT 17 g polyethylene glycol (Miralax) packet 17 g 17 g, Oral, ONCE, 1 dose, On Fri07/23/19 at 1445, Routine Given 07/23/2019 3:32 PM EDT 17 g scopolamine (TRANSDERM-SCOP) 1 mg over 3 days patch 1 patch 1 patch, Transdermal, ONCE, 1 dose, On Fri07/20/19 at 0700, Day of Surgery (Day of Procedure), Routine Patch Applied 07/20/2019 7:17 AM EDT 1 patch 02- Ear Behind (Right) scopolamine (TRANSDERM-SCOP) 1 mg patch Patch Verification [...] Given 07/22/2019 8:13 PM EDT 2 tablets senna-docusate (Pericolace) 8.6-50 mg per tablet 2 tablet 2 tablet, Oral, ONCE, 1 dose, On Fri07/23/19 at 1445, Routine Given 07/23/2019 3:31 PM EDT 2 tablets sodium chloride 0.9 [...] RN)2012 (Given - Provider: Jamee Turcios RN) 0244 (Given - Provider: Jamee Turcios RN)0738 (Given - Provider: Mercedes Poon RN)1356 (Given - Provider: Mercedes Poon RN)2045 (Given - Provider: Dulce Maria Gonzales RN) 0216 (Given - Provider: Dulce Maria Gonzales RN)0831 (Given - Provider: Lani Nino, DMITRY) dilTIAZem CD (Cardizem CD) capsule 180 mg 180 mg, Oral, DAILY, First dose on Fri07/21/19 at 0900, Until Discontinued, DO NOT CRUSH OR OPEN, Routine 0931 (Given - Provider: Kassandra Bassett RN) 0817 (Given - Provider: Mercedes Poon RN) 0831 (Given - Provider: Lani Nino, DMITRY) enoxaparin (LOVENOX) injection 40 mg 40 mg, Subcutaneous, EVERY 24 HOURS SCHEDULED (Daily), First dose on Fri07/22/19 at 0900, Until Discontinued, Routine 0931 (Given - Provider: Kassandra Bassett RN) 0817 (Given - Provider: Mercedes Poon RN) 0831 (Given - Provider: Lani Nino, DMITRY) HYDROmorphone (Dilaudid) tablet 2 mg (COMPLETED) 2 [...] RN) 0512 (Given - Provider: Dulce Maria Gonzales RN)1103 (Given - Provider: Lani Nino, DMITRY) magnesium [...] may be given concomitantly for constipation., Routine 09 (Given - Provider: Kassandra Bassett RN) 08 (Given - Provider: Mercedes Poon RN) 08 (Given - Provider: Lani Nino, DMITRY) polyethylene [...] Mercedes Poon RN - Comment: not wearing patch)2100 (Patch Not Verified (add comment) - Provider: Dulce Maria Gonzales RN) 0900 (Patch Not Verified (add comment) - Provider: Lani Nino RN - Comment: patch not present) senna-docusate (Pericolace) 8.6-50 mg per tablet 2 tablet 2 tablet, Oral, 2 TIMES DAILY, First dose on Fri07/20/19 at 2100, Until Discontinued, Routine 0931 (Given - Provider: Kassandra Bassett RN)2012 (Given - Provider: Jamee Turcios RN) 08 (Given - Provider: Mercedes Poon RN)2099 (Not [...] Discontinued, Routine 0932 (Given - Provider: Kassandra Bassett, RN)2012 (Given - Provider: Jamee Turcios RN) 08 (Given - Provider: Mercedes Poon RN)2045 (Given - Provider: Dulce Maria Gonzales RN) 0831 (Given - Provider: Lani Nino, DMITRY) PRN Medication Order 07/22/2019 07/23/2019 07/24/2019 dilTIAZem (Cardizem) tablet 30 mg 30 mg, Oral, 3 TIMES DAILY PRN, Starting on Fri07/20/19 at 1527, Until 07/24/19 at 1414, Use for palpitations. Page resident at 2424 if this PRN medication is used, Routine [...] needed, Routine 0311 (Given - Provider: Hugh Lombardi RN)0614 (Given - Provider: Hugh Lombardi RN)0930 (Given - Provider: Kassandra Bassett RN)1248 (Given - Provider: Kassandra Bassett, DMITRY)1602 (Given - Provider: Jeri Galloway RN) HYDROmorphone (Dilaudid) tablet 6 mg (CANCELED) 6 mg, Oral, EVERY 4 HOURS PRN, Starting on Louisa 07/22/19 at 1846, Until 07/23/19 at 0737, Pain, for severe pain (7-10), May give an additional 2 mg once if pain not relieved in 30-60 minutes., Routine 1854 (Given - Provider: Mercedes Poon RN) 0009 (See Alternative - Provider: Jamee Turcios, DMITRY)0418 (Given - Provider: Jamee Turcois RN - Comment: witnessed by Griselda Encinas [...] Routine documented in this encounter Care Teams Communication Instructor Relationship Specialty Start Date End Date Evelyne Hunt APRN [address] [place] [address] PCP - General Internal Medicine 09/23/17 documented as of this encounter
--- OUTSIDE RECORDS SUMMARY | 2023-12-01 02:18 | XMS_ITS | Encounter Summary ---
Author Organization [facility]ly [facility] [place] [address] Care Team Providers Care Trenching Machine Operator Name Role Phone MarileeEvelyne APRN Primary Care Provider [phone] Encounter Details Date Type Department Care Team (Latest Contact Info) Description 08/02/2019 Multidisciplinary Ca re Committee Hematology [place] [phone] Mary Mclain, RN Social History Tobacco Use [...] as of this encounter Progress Notes * Mary Mclain, RN - 08/02/2019 3:22 PM EDT SUTURE [facility] ONC - Tumor Board Note Date Presented: 07/28/19 Presenting Physician: Dr Sommers for Dr Vallejo Diagnosis/Tumor Site: ovarian Is this Metastatic Disease: yes Synopsis of History/HPI: Gabi Luna is a 58 y.o. female referred for evaluation of a pelvic mass. ?? Imaging:On 07/08/2019 the patient underwent a CT scan of the abdomen and pelvis for pelvic pain. This was done with contrast oral and IV. Fatty liver was noted. A liver cyst was seen. There is no abdominal or pelvic adenopathy. There is a complex multicystic mass of the pelvis with multiple apparentsolid components. 12 x 8 cm in diameter. Cancer was suspected. Small quantity of free fluid seen inthe pelvis. ?? The patient also underwent a [...] Complex fluid was seen in the cul-de-sac. Pathology/Histology: ?? Surgical Pathology DIAGNOSIS A - Left fallopian tube [...] - Negative for malignancy SYNOPTIC REPORT Tumor . 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 A4, B11 CAP eCC May 2018 Annual Release Electronically signed by: ??Lani Arceo DO Verified: ??07/27/2019 ?Pathologist Performed at: ??-[facility], [place], [place] DISCUSSION The tumor in the left ovary shows different morphologic growth patterns including ??areas with solid and glandular architecture showing a p53+ p16+(nondiffuse) ER +(strong and diffuse) immunophenotype most compatible with a high-grade [id number] ??endometrioid carcinoma. There are also foci with papillary growth morphologically ??compatible with high-grade serous carcinoma. 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 The tumor in the right ovary predominantly shows papillary high-grade serous ??morphology with a p53+ p16+(strong and diffuse) ER+(moderate to strong, nondiffuse) ??immunophenotype and is associated with a STIC in the right fallopian tube. Taken ??together, the tumor in the right ovary is most compatible with a high-grade serous ??carcinoma. ADDITIONAL STUDIES Immunohistochemistry Studies: Formalin-fixed, paraffin-embedded tissue sections are studied using the polymer ??technique with appropriate positive and negative controls. ?These IHC studies ??provide the pathologist with adjunctive diagnostic information. Antibody specificity ??has been verified by testing antibodies on a series of in-house tissues with known ??immunohistochemical performance characteristics. The clinical interpretation of ??any antibody positive staining or its absence is evaluated within the context of . ADDITIONAL STUDIES ??clinical presentation, morphology, histopathological criteria and other diagnostic ??tests. Block ? Antibody ? Result (Positive/Negative) A4 ? p53 ? Positive ?p16 ? Positive - nondiffuse ?ER ?Positive - strong and diffuse ?NH ?Positive - strong and focal ?WT1 ? Positive B12 ?p53 ? Positive ?p16 ? Positive - diffuse ?ER ?Positive - moderate - strong and nondiffuse ?NH ?Positive - strong and focal ?WT1 ? Positive Block ? Antibody ? Result (Positive/Negative) A4, B12 ??MLH1 ?Positive, intact nuclear staining ?MSH2 ?Positive, intact nuclear staining ?MSH6 ?Positive, intact nuclear staining ?PMS2 ?Positive, intact nuclear staining Interpretation: Immunostains for MLH1, MSH2, MSH6, and PMS2 reveal intact nuclear staining in tumor ??cells. ??In a very small percentage of tumors, there may still be an underlying ??hereditary defect in these DNA mismatch repair genes despite intact nuclear ??expression of the protein in tumor cells ?? . Genetic counseling and/or additional ??workup is indicated in patients with a family history that meets current criteria ??for HNPCC screening. Immunohistochemical assay was performed on paraffin-embedded tissue sections fixed ??in 10% neutral buffered formalin for 6-72 hours using the polymer system technique ??with appropriate controls. The assay was performed according to the rotary screen printing machine operator's ??intructions using anti-MLH-1 ([id number]), anti-MSH-2 ([id number]), anti-MSH-6 (44), and ??anti-PMS-2 ([id number]) antibodies. CLINICAL INFORMATION Specimen Submitted: A [...] - Labeled/Fixative: Left tube and ovary, fresh. Quantity/Size/Weight: ??Single, 9.5 x 6.5 x 5.0 cm, 40 g (overall). Tissue Description: Intact, Salpingo-oophorectomy. LEFT OVARY ?Size: 9.5 x 6.5 x 5.0 cm. ?Outer Surface: red-purple, smoothcystic, nodular. . SPECIMEN PROCESSING ?Cut Surface: Cystic, nodular. There are multiple yellow, soft excrescences. ??There is cyst wall thickening with nodularity. There are foster-white rubbery nodules ??measuring up to 4.0 x 2.7 x 1.5 cm cm. There is no identifiable ovarian parenchyma. Left Fallopian Tube: 6.5 x 0.6 cm, fimbriated, with paratubal cysts. Sections/Processing: The following tissue is submitted for frozen section: AFS1: Three fuels sales representative ??sections of cyst wall with excrescences and solid area. Flight Kitchen Manager sections in 12 cassettes as follows: ? A1: ??AFS1: Frozen section remnant, three fuels sales representative sections of cyst wall with ?excrescences and solid area ? A2-A4: ??Left ovary, fuels sales representative nodules ? A5-A6: ??Left ovary, fuels sales representative excrescences ? A7: ??Left ovary, fuels sales representative cyst wall ? A8: ??Left fallopian tube, fimbriated end, bisected ? A9-A12: ??Left fallopian tube, cross-sections, entirely submitted B - Labeled/Fixative: Uterus, cervix, right tube and ovary, anterior ?- posterior pelvic ??peritoneum, fresh. Quantity/Size/Weight: ??Single, 10.0 x 7.8 x 2.3 cm, 88 g (overall). Tissue Description: Intact, total hysterectomy. UTERUS Endometrium: 0.1 cm. Myometrium: 1.1-1.6 cm thick, 2.6 ??x 1.5 x 1.5 cm white whorled nodule in the ??posterior myometrium. 0.8 x 0.6 x 0.5 cm white whorled nodule in the anterior ??myometrium. Serosa: Uninvolved. CERVIX Diameter: 2.9 cm Os: 0.2 cm, circular RIGHT OVARY ?Size: 5.2 x 3.9 x 2.6 cm. ?Outer Surface: red-purple, smoothCystic. ?Cut Surface: Multiple cysts filled with brown, thin fluid. There are foster-white ??soft/rubbery nodular areas. Right Fallopian Tube: 7.4 x 0.5 cm, fimbriated. Sections/Processing: Flight Kitchen Manager sections in 19 cassettes as follows: ? B1: ??Right fallopian tube, fimbriated end, bisected ? B2-B4: ??Right fallopian tube, cross-sections, entirely submitted from distal to ?proximal ? B5: ??Possible additional right fallopian tube cross-sections at cornu ? B6-B13: ??Right ovary, fuels sales representative sections ? B14: ??Anterior cervix ? B15: ??Posterior cervix ? B16: ??Anterior endomyometrium, full thickness ? B17: ??Posterior endomyometrium, full thickness ? B18: ??Anterior myometrial white whorled nodule, fuels sales representative section ? B19: ??Posterior myometrial white whorled nodule, fuels sales representative section C - Labeled/Fixative: Anterior pelvic peritoneum, fresh. Quantity/Size: Single, 0.8 x 0.6 x 0.3 cm. Tissue Description: Fragment of foster-red soft tissue. Sections/Processing: Submitted en toto ??in 1 cassette labeled C1. D - Labeled/Fixative: Tumor on the surface of the rectosigmoid colon below pelvic ??rim, fresh. Quantity/Size: Fragments, 2.1 x 1.2 x 0.6 cm in aggregate. Tissue Description: Fragments of foster-pink rubbery tissue. Sections/Processing: Submitted en toto ??in 2 cassettes labeled D1-D2. Stage: IIIB Clinical Data (Exams, Labs, etc.): 07/20/2019 Total abdominal hysterectomy, bilateral salpingo-oophorectomy, bilateral pelvic and paraaortic lymphadenectomy, infracolic omentectomy, rectosigmoid resection and reanastomosis ?? Clinical Trial Availability: no Options Discussed: Chemotherapy Recommendations: 6 cycles chemotherapy; genetics DISCLAIMER: The patient was discussed and the tumor board made recommendations but it is ultimatelyup to the treatment provider(s) and the patient to determine the patient???s care. documented in this encounter Plan of Treatment Upcoming Encounters Date Type Department Care Team (Latest Contact Info) Description 12/25/2023 9:[address] [place] [address] Xavier Malhotra MD [facility] [place] [address] 12/29/2023 Hospital Encounter Electrophys[place] [phone] Xavier Malhotra MD [facility] [place] [address] Paroxysmal atrial fibrillation 12/29/2023 7:30 AM EDT - 12/29/2023 12:00 PM EDT Surgery Electrophys[place] [phone] Xavier Malhotra MD [facility] [place] [address] ELECTROPHYSIOLOGY PROCEDURE 01/14/2024 10:40 AM EDT Office Visit Cardiology at [address] [phone] Carmen Castaneda PA [facility] [place] [address] Scheduled Procedures Name Priority Associated Diagnoses Date/Ti me TRANSESOPHAGEAL ECHO DURING CATH/EP PROCEDURE Paroxysmal atrial fibrillation 12/29/2023 7:30 AM EDT documented as of this encounter Visit Diagnoses Not on filedocumented in this encounter Care Teams Trenching Machine Operator Relationship Specialty Start Date End Date Evelyne Hunt APRN [address] [place] [address] PCP - General Internal Medicine 09/23/17 documented as of this encounter
--- OUTSIDE RECORDS SUMMARY | 2023-12-01 02:18 | XMS_ITS | Encounter Summary ---
Author Organization Formerly [facility] [place] [address] Care Team Providers Care Auto Parts Delivery Driver Name Role Phone Evelyne Hunt Dat STEVEN Primary Care Provider [phone] Encounter Details Date Type Department Care Team (Late st Contact Info) Description 08/27/2019 External Results Hematology and Oncology at [place] [phone] Mary Mclain, RN Social History Tobacco Use [...] 9:[address] [place] [phone] Xavier Malhotra MD [facility] [place] [address] 12/29/2023 Hospital Encounter Electrophysiology Lab at [place] [phone] Xavier Malhotra MD [facility] [address] [place] [id number] Paroxysmal atrial fibrillation 12/29/2023 7:30 AM EDT - 12/29/2023 12:00 PM EDT Surgery [place]rophys[place] [phone] Xavier Malhotra MD [facility] [place] [address] ELECTROPHYSIOLOGY PROCEDURE 01/14/2024 10:40 AM EDT Office Visit Cardiology at [address] [phone] Carmen Castaneda PA [facility] CARDIOLOGY [place], [place] [phone] Scheduled Procedures Name Priority Associated Diagnoses Date/Ti me TRANSESOPHAGEAL ECHO DURING CATH/EP PROCEDURE Paroxysmal atrial fibrillation 12/29/2023 7:30 AM EDT documented as of this encounter Procedures Procedure Name Priority Date/Time Associated Diagnosis Comments EXTERNAL LAB CBC CMP THYROID RESULTS PANEL Routine 08/25/2019 CBC (WITH DIFF) Routine 08/25/2019 documented in this encounter Results * CBC / CMP / Thyroid External Results (08/25/2019) Historical Provider EXTERNAL LAB TONJA SUAREZ * CBC (with Diff) (08/25/2019) White Blood Cell 8.05 Hemoglobin 13.7 Hematocrit 38.8 Platelet 294 Neutrophil % 64.6 ANC 5,200 CA 125 23 Blood specimen (specimen) Natalie Vallejo MD HEMATOLOGY ORDERABLE S documented in this encounter Visit Diagnoses Not on filedocumented in this encounter Care Teams Auto Parts Delivery Driver Relationship Specialty Start Date End Date Evelyne Hunt APRN [address] [place] [address] PCP - General Internal Medicine 09/23/17 documented as of this encounter
--- OUTSIDE RECORDS SUMMARY | 2023-12-01 02:18 | XMS_ITS | Encounter Summary ---
Author Organization [facility] Address [facility] [place] [address] Care Team Providers Care Gaming Surveillance Observer Name Role Phone Kiki Huntjunaid Daugherty APRN Primary Care Provider [phone] Encounter Details Date Type Department Care Team (Late st Contact Info) Description 09/02/2019 Telephone [place] [phone] Iram Laird MD [facility] DR OBSTETRICS [place] [address] Social History Tobacco Use Types Packs/Day Years [...] encounter Miscellaneous Notes * Telephone Encounter - Iram Laird MD - 09/02/2019 11:38 AM EDT Tell Call: patient called last night for diffuse pain following chemotherapy. Patient had chemotherapy Friday, first cycle, has been doing well post op. Now with persistent pain, legs, back and unable to get comfortable. Tried tylenol and motrin. No fevers no nausea. Was directed to try shower for some of leg pain and back pain and ok to take narcotic left over from surgery. documented in this encounter Plan of Treatment Upcoming Encounters Date Type Department Care Team (Latest Contact Info) Description 12/25/2023 9:[address] Scan at [place] [phone] Xavier Malhotra MD [facility] [place] [address] 12/29/2023 Hospital Encounter Electrophysiology Lab at [place] [phone] Xavier Malhotra MD [facility] [place] [address] Paroxysmal atrial fibrillation 12/29/2023 7:30 AM EDT - 12/29/2023 12:00 PM EDT Surgery Electrophysiology Lab at [place] [phone] Xavier Malhotra MD [facility] [place] [address] ELECTROPHYSIOLOGY PROCEDURE 01/14/2024 10:40 AM EDT Office Visit Cardiology at [place] [phone] Carmen Castaneda PA [facility] [place] [address] Scheduled Procedures Name Priority Associated Diagnoses Date/Ti me TRANSESOPHAGEAL ECHO DURING CATH/EP PROCEDURE Paroxysmal atrial fibrillation 12/29/2023 7:30 AM EDT documented as of this encounter Visit Diagnoses Not on filedocumented in this encounter Care Teams Gaming Surveillance Observer Relationship Specialty Start Date End Date Evelyne Hunt APRN [address] [place] [address] PCP - General Internal Medicine 09/23/17 documented as of this encounter
--- OUTSIDE RECORDS SUMMARY | 2023-12-01 02:18 | XMS_ITS | Encounter Summary ---
Author Organization [facility] [place] [address] Care Team Providers Care Forms Analysis Manager Name Role Phone Evelyne Hunt APRN Primary Care Provider [phone] Reason for Referral * Diagnostic Test (Routine) - Closed Specialty Diagnoses / Procedures Referred By Contac t Referred To Contact Radiology Diagnoses Malignant neoplasm of ovary, unspecified laterality Procedures IR Mediport Placement Natalie Vallejo MD [facility] [place] [address] [facility] [place] [address] Referral ID Status Reason Start Date Expiration Date V isits Requested Visits Authorized [id number] Closed Specialty Service Requested 08/10/2019 02/08/2021 1 1 Reason for Visit * Diagnostic Test (Routine) - Closed Specialty Diagnoses / Procedures Referred By Contac t Referred To Contact Radiology Diagnoses Malignant neoplasm of ovary, unspecified laterality Procedures IR Mediport Placement Natalie Vallejo MD [facility] [place] [address] [facility] [place] [address] Referral ID Status Reason Start Date Expiration Date V isits Requested Visits Authorized [id number] Closed Specialty Service Requested 08/10/2019 02/08/2021 1 1 Encounter Details Date Type Department Care Team (Latest Contact Info) Description 08/20/2019 8:30 AM EDT - 08/20/2019 11:59 PM EDT Hospital [place] [address] Natalie Vallejo MD [facility] GYNECOLOG[place] [address] Malignant neoplasm of ovary, unspecified laterality Discharge [...] Sign Reading Time Taken Comments Blood Pressure 115/64 08/20/2019 10:15 AM EDT Pulse 83 08/20/2019 9:55 AM EDT Temperature 36.3 ??C (97.3 ??F) 08/20/2019 10:00 AM E DT Respiratory Rate 18 08/20/2019 10:15 AM EDT Oxygen Saturation 97% 08/20/2019 10:15 AM EDT Inhaled Oxygen Concentration - - Weight - - Height - - Body Mass Index - - documented in this encounter Discharge Instructions * Discharge Instructions* Catherine Estrada RN - 08/20/2019 8:54 AM EDT Images from the original note were not included. [facility] Department of Vascular and Interventional Radiology Discharge Instructions for your Chest Port You have received a ???Power Port?? , which provides access for infusions and blood draws. What makes this a ???Power Port?? is the unique ability to ???power inject?? contrast (intravenous dye) through the port when getting a CT scan, which produces superior images (pictures). Patients who don???t have these special ports need to have an IV started if they need dye injected for their CT scan. Your port is printed with the letters ???CT?? which can be detected by x- ray to identify it as a ???Power Port?? . You will be provided with an ID card stating the regulatory affairs consultant and type of port you have. Please carry this with you in a safe place. Bandage: There is a sterile dressing over the port site consisting of small gauze with a clear dressing (Tegaderm or [id number] ). This dressing should be left in place for 48 hours. If the clear dressing becomes loose you should place tape over the edges to secure it in place. Note: If you have steri-strips beneath your dressing, simply allow them to fall off. Do not peel them off. There may be [place] (skin glue) also, allow this to flake off. Pain: Apply ice bag to site (s) at 30 minute intervals (30 minutes on and 30 minutes off) for 24 hours?? . May use as needed for pain and/or bruising after 24 hours. Bathing: Do not take a shower until 48 hours after your port is placed; after this time you may shower with the dressing in place, then remove it and pat your skin dry. After 48 hours, we recommend that you cover the area with THE AQUA GUARD PROVIDED for 1 week while showering, facing away from theshower stream. You may use a bandaid to cover the site after the 48 hours are up if there is any drainage. No tub baths, whirlpools or swimming for one week following port placement. Flushing the mediport: If your port has not been used, it must be flushed every 30 days. What to expect when your port is accessed: 1. You may feel tenderness the first few times it is accessed but generally this subsides over time. Ask your healthcare provider to use a local anesthetic on the site if discomfort is a problem for you. You may ask for a prescription for a topical cream (EMLA) from your clinician; you may apply athome prior to your appointments, to help numb the skin over your port. 2. The clinician should be wearing sterile gloves and a mask during the access procedure. Anyone inthe room with you should also have a mask on. 3. The skin over and 2 inches around the port should be cleaned with a disinfectant 4. Tell the clinician if you would like the skin numbed (lidocaine) before the access needle is placed. 5. Unless you are unable to take heparin (blood thinner), the port should be injected with a heparin solution before deaccess (at end of each treatment or blood draw). When to call your healthcare provider: ??? If you notice bleeding from the puncture site in your neck, or from the port incision on your chest, you should apply firm pressure over the site for 10-15 minutes, keeping the site covered. Callif you are still bleeding after 10-15 minutes. ??? If you develop pain, redness, drainage or swelling at or around the port site, or the puncture site in the neck ??? If you develop fever (elevation of more than 2 degrees or greater than 101F) and/or shaking chills When to call the Interventional Radiology Department: Please call with any questions or concerns. If it is during regular office hours, please call [phone]. If it is after regular office hours, or on weekends or holidays, please call [phone] and ask to speak to the [facility] Worker rn neonatal for Interventional Radiology. XXX You have received medication during your procedure to help lessen anxiety and keep you comfortable. These medications affect judgement and reaction time. We [...] End Date prochlorperazine (Compazine) 10 mg Tablet Take 1 tablet by mouth every 6 hours as needed for Nausea. 30 tablet 3 08/18/2019 09/10/2019 ondansetron (Zofran) 8 mg Tablet Take 1 tablet by mouth every 8 hours as needed for Nausea. 30 tablet 3 08/18/2019 12/29/2019 LORazepam (Ativan) 0.5 mg Tablet Take 1 tablet by mouth every 6 hours as needed for Anxiety. 30 tablet 08/18/2019 12/29/2019 HYDROmorphone (Dilaudid) 2 mg Tablet Take 1-2 [...] as of this encounter Progress Notes * Catherine Estrada RN - 08/20/2019 9:26 AM EDT ANGIO NURSING DATABASE Name: GABI WALLER Date of : 1960 AGE: 58 y.o. Address: [address] [address] (home) Mobile: Telephone Information: Referring Provider: Natalie Vallejo REASON FOR VISIT: Order Questions Answers Where will study be performed? [facility] Radiology [120] Prefered insertion location: No Preference Is the patient on anticoagulant / anitplatelet therapy ? No Reason for exam and clinical history: ovarian cancer starting chemo in few weeks Plan Planned procedure: Chest Port - Single Lumen Placement (08/11/19 132) Labs to be performed day of procedure: No labs (08/11/19 1326) Sedation: Moderate (Conscious sedation) (08/11/19 1326) Prophylactic antibiotic : Other (See comments)(Clindamycin) (08/11/19 1326) Contrast: No contrast (08/11/19 132) Additional medications for procedure: Lidocaine (08/11/19 132) Medications to discontinue (and days held): None (08/11/19 132) Planned access site: Right IJ (08/11/19 132) Position: Supine (08/11/19 132) Cytopathology presence needed: No (08/11/19 132) Consent: Pending (08/11/19 132) Allergies Allergen Reactions ??? Penicillins CIS - Anaphylaxis Pertinent PSH: Past Surgical History: Procedure Laterality Date ??? APPENDECTOMY 08/26/2013 ??? SECTION ??? PRO GINA SALP-OOPH W/OMENTECT, FREDI, RAD DISSECT N/A 07/20/2019 @HYSTERECTOMY, FREDI, BSO, DEBULKING (WRVU 34.13) performed by Natalie Vallejo MD at [facility] MAIN OR Date/Procedure Meds given/comments 08/20/19 Mediport placement Clindamycin 900 mg IV, Fentanyl 150 mcg IV, Versed 3 mg IV. Pt tolerated procedure well. Laboratory Results: Lab Results Component Value Date INR 1.0 04/17/2018 Lab Results Component Value Date CREATININE 0.47 (L) 07/23/2019 Lab Results Component Value Date K 3.6 07/23/2019 Lab Results Component Value Date PLATELET 232 07/24/2019 * Catherine Estrada RN - 08/20/2019 9:18 AM EDT To procedure room 2 via stretcher. Onto table supine. All monitors, O2, safety strap in place. Med's per protocol. documented in this encounter H&P Notes * Travis De Paz DO - 08/20/2019 8:47 AM EDT INTERVENTIONAL RADIOLOGY FOCUSED H&P: Procedure: Planned procedure: Chest Port - Single Lumen Placement The patient's history and physical exam have been reviewed and completed. There has been no interval change from that of the pre-operative history and physical exam done within the last 30 days. Physical Exam: Cardiovascular: Regular rate and rhythm Pulmonary: Breath sounds clear to auscultation The planned procedure (and sedation plan if appropriate) , its benefits and risks, and alternativeswere discussed with the patient. The patient consented to the procedure. PRE-SEDATION ASSESSMENT: Sedation Plan: moderate (conscious sedation) ASA: 2: Patient with mild systemic disease Mallampati: III: only the base of the uvula can be seen Confirm NPO status: Yes History of anesthetic complications: No Current medications reviewed: Yes Allergies reviewed: Yes Source Note - Erick Pop P - 08/11/2019 1:23 PM EDT INTERVENTIONAL RADIOLOGY FOCUSED H&P and PRE-PROCEDURE NOTE: PCP: Evelyne Hunt APRN Referring Provider: Natalie Vallejo Planned Procedure: Planned procedure: Chest Port - Single Lumen Placement Procedure Indication: Order Questions Answers Where will study be performed? [facility] Radiology [120] Prefered insertion location: No Preference Is the patient on anticoagulant / anitplatelet therapy ? No Reason for exam and clinical history: ovarian cancer starting chemo in few weeks Presenting Diagnosis/ Complaint: Gabi Waller is a 58 y.o. female with a past medical history of SVT, HTN and recently diagnosed ovarian carcinoma who on 07/20/19 underwent a ovarian cancer cytoreductive surgery including TAHBSO / omentectomy / rectosigmoid resection / PPALND. IR is consulted for placement of chest port - single lumen for need for durable, long-term venous access for chemotherapy. Past Medical/Surgical History: Patient Active Problem List Diagnosis Code ??? Hypothyroidism E03.9 ??? SVT (supraventricular tachycardia) I47.1 ??? Bicuspid aortic valve Q23.1 ??? Chest pain R07.9 ??? Nonrheumatic aortic valve stenosis--moderate to severe per 2020 echo (scanned docs) I35.0 ??? HTN (hypertension) I10 ??? Ovarian cancer, lateral, stage IIIb high-grade serous/endometrioid, 07/20/2019 s/p FREDI/BSO/oment/PPALND/RSReanstomosis C56.9 Past Medical History: Diagnosis Date ??? Allergic [...] ??? APPENDECTOMY 08/26/2013 ??? SECTION ??? PRO GINA SALP-OOPH W/OMENTECT, FREDI, RAD DISSECT N/A 07/20/2019 @HYSTERECTOMY, FREDI, BSO, DEBULKING (WRVU 34.13) performed by Natalie Vallejo MD at [facility] MAIN OR Medications: Current Outpatient Medications on File Prior to Encounter Medication Sig Dispense Refill ??? HYDROmorphone (Dilaudid) 2 mg Tablet Take 1-2 tablets by mouth every 4 hours as needed for Pain. 40 tablet 0 ??? acetaminophen (Tylenol) 325 mg Tablet Take 2 tablets by mouth every 6 hours as needed for Pain.50 tablet 0 ??? ibuprofen (Advil;Motrin) 600 mg Tablet Take 1 tablet by mouth every 6 hours as needed for Pain.50 tablet 0 ??? polyethylene glycol (Miralax) 17 gram Powder in Packet Take 17 g by mouth daily. 14 each 0 ??? senna-docusate (Pericolace) 8.6-50 mg Tablet Take 2 tablets by mouth 2 times daily. Please use if taking hydromorphone; can hold if you have >2 loose bowel movements in 24hrs 60 tablet 0 ??? ergocalciferol, vitamin D2, (VITAMIN [...] medications on file prior to encounter. Allergies: Penicillins Social History and Habits: Social History Socioeconomic History ??? Marital status: Spouse name: Not on file ??? Number of children: Not on file ??? Years of education: Not on file ??? Highest education level: Not on file Occupational History ??? Not on file Social Needs ??? Financial resource strain: Not on file ??? Food insecurity Worry: Not on file Inability: Not on file ??? Transportation needs Medical: Not on file Non-medical: Not on file Tobacco Use ??? Smoking status: Former Smoker Last attempt to quit: 07/12/1977 Years since quittin.1 ??? Smokeless tobacco: Never Used Substance and Sexual Activity ??? Alcohol use: Yes Comment: 4 drinks per week ??? Drug use: Yes Types: Pain Pills Comment: dilaudid PO PRN ??? Sexual activity: Not on file Lifestyle ??? Physical activity Days per week: Not on file Minutes per session: Not on file ??? Stress: Not on file Relationships ??? Social connections Talks on phone: Not on file Gets together: Not on file Attends tenriism service: Not on file Active member of club or organization: Not on file Attends meetings of clubs or organizations: Not on file Relationship status: Not on file ??? Intimate partner violence Fear of current or ex partner: Not on file Emotionally abused: Not on file Physically abused: Not on file Forced sexual activity: Not on file Other Topics Concern ??? Not on file Social History Narrative ??? Not on file Significant Family History: Family History Problem Relation Age of Onset ??? Heart Disease Mother ??? Cancer Mother ??? Heart Disease Brother 3 brothers, all with history of [place]; one with valvular disease ??? Heart Disease Maternal Grandfather Pertinent ROS: as per HPI Labs: Lab Results Component Value Date WBC 6.0 07/24/2019 HCT 34.1 (L) 07/24/2019 PLATELET 232 07/24/2019 INR 1.0 04/17/2018 BUN 6 (L) 07/23/2019 CREATININE 0.47 (L) 07/23/2019 K 3.6 07/23/2019 Imaging: No pertinent imaging. Physical Exam: Pending (to be performed in angio the day of procedure) ASA: Pending (to be assessed in angio the day of procedure) Mallampati Class: Pending (to be assessed in angio the day of procedure) Assessment: 58 y.o. female with a past medical history of SVT, HTN and recently diagnosed ovarian carcinoma who on 07/20/19 underwent a ovarian cancer cytoreductive surgery including TAHBSO / omentectomy / rectosigmoid resection / PPALND. IR is consulted for placement of chest port - single lumen for need for durable, long-term venous access for chemotherapy. Plan: Plan Planned procedure: Chest Port - Single Lumen Placement Labs to be performed day of procedure: No labs Sedation: Moderate (Conscious sedation) Prophylactic antibiotic : Other (See comments)(Clindamycin) Contrast: No contrast Additional medications for procedure: Lidocaine Medications to discontinue (and days held): None Planned access site: Right IJ Position: Supine Cytopathology presence needed: No Consent: Pending 08/11/2019 * Erick Pop P - 08/11/2019 1:23 PM EDT INTERVENTIONAL RADIOLOGY FOCUSED H&P and PRE-PROCEDURE NOTE: PCP: Evelyne Hunt APRN Referring Provider: Natalie Vallejo Planned Procedure: Planned procedure: Chest Port - Single Lumen Placement Procedure Indication: Order Questions Answers Where will study be performed? [facility] Radiology [120] Prefered insertion location: No Preference Is the patient on anticoagulant / anitplatelet therapy ? No Reason for exam and clinical history: ovarian cancer starting chemo in few weeks Presenting Diagnosis/ Complaint: Gabi Waller is a 58 y.o. female with a past medical history of SVT, HTN and recently diagnosed ovarian carcinoma who on 07/20/19 underwent a ovarian cancer cytoreductive surgery including TAHBSO / omentectomy / rectosigmoid resection / PPALND. IR is consulted for placement of chest port - single lumen for need for durable, long-term venous access for chemotherapy. Past Medical/Surgical History: Patient Active Problem List Diagnosis Code ??? Hypothyroidism E03.9 ??? SVT (supraventricular tachycardia) I47.1 ??? Bicuspid aortic valve Q23.1 ??? Chest pain R07.9 ??? Nonrheumatic aortic valve stenosis--moderate to severe per 2019 echo (scanned docs) I35.0 ??? HTN (hypertension) I10 ??? Ovarian cancer, lateral, stage IIIb high-grade serous/endometrioid, 07/20/2019 s/p FREDI/BSO/oment/PPALND/RSReanstomosis C56.9 Past Medical History: Diagnosis Date ??? Allergic [...] ??? APPENDECTOMY 08/26/2013 ??? SECTION ??? PRO GINA SALP-OOPH W/OMENTECT, FREDI, RAD DISSECT N/A 07/20/2019 @HYSTERECTOMY, FREDI, BSO, DEBULKING (WRVU 34.13) performed by Natalie Vallejo MD at [facility] MAIN OR Medications: Current Outpatient Medications on File Prior to Encounter Medication Sig Dispense Refill ??? HYDROmorphone (Dilaudid) 2 mg Tablet Take 1-2 tablets by mouth every 4 hours as needed for Pain. 40 tablet 0 ??? acetaminophen (Tylenol) 325 mg Tablet Take 2 tablets by mouth every 6 hours as needed for Pain.50 tablet 0 ??? ibuprofen (Advil;Motrin) 600 mg Tablet Take 1 tablet by mouth every 6 hours as needed for Pain.50 tablet 0 ??? polyethylene glycol (Miralax) 17 gram Powder in Packet Take 17 g by mouth daily. 14 each 0 ??? senna-docusate (Pericolace) 8.6-50 mg Tablet Take 2 tablets by mouth 2 times daily. Please use if taking hydromorphone; can hold if you have >2 loose bowel movements in 24hrs 60 tablet 0 ??? ergocalciferol, vitamin D2, (VITAMIN [...] medications on file prior to encounter. Allergies: Penicillins Social History and Habits: Social History Socioeconomic History ??? Marital status: Spouse name: Not on file ??? Number of children: Not on file ??? Years of education: Not on file ??? Highest education level: Not on file Occupational History ??? Not on file Social Needs ??? Financial resource strain: Not on file ??? Food insecurity Worry: Not on file Inability: Not on file ??? Transportation needs Medical: Not on file Non-medical: Not on file Tobacco Use ??? Smoking status: Former Smoker Last attempt to quit: 07/12/1977 Years since quittin.1 ??? Smokeless tobacco: Never Used Substance and Sexual Activity ??? Alcohol use: Yes Comment: 4 drinks per week ??? Drug use: Yes Types: Pain Pills Comment: dilaudid PO PRN ??? Sexual activity: Not on file Lifestyle ??? Physical activity Days per week: Not on file Minutes per session: Not on file ??? Stress: Not on file Relationships ??? Social connections Talks on phone: Not on file Gets together: Not on file Attends tenriism service: Not on file Active member of club or organization: Not on file Attends meetings of clubs or organizations: Not on file Relationship status: Not on file ??? Intimate partner violence Fear of current or ex partner: Not on file Emotionally abused: Not on file Physically abused: Not on file Forced sexual activity: Not on file Other Topics Concern ??? Not on file Social History Narrative ??? Not on file Significant Family History: Family History Problem Relation Age of Onset ??? Heart Disease Mother ??? Cancer Mother ??? Heart Disease Brother 3 brothers, all with history of [place]; one with valvular disease ??? Heart Disease Maternal Grandfather Pertinent ROS: as per HPI Labs: Lab Results Component Value Date WBC 6.0 07/24/2019 HCT 34.1 (L) 07/24/2019 PLATELET 232 07/24/2019 INR 1.0 04/17/2018 BUN 6 (L) 07/23/2019 CREATININE 0.47 (L) 07/23/2019 K 3.6 07/23/2019 Imaging: No pertinent imaging. Physical Exam: Pending (to be performed in angio the day of procedure) ASA: Pending (to be assessed in angio the day of procedure) Mallampati Class: Pending (to be assessed in angio the day of procedure) Assessment: 58 y.o. female with a past medical history of SVT, HTN and recently diagnosed ovarian carcinoma who on 07/20/19 underwent a ovarian cancer cytoreductive surgery including TAHBSO / omentectomy / rectosigmoid resection / PPALND. IR is consulted for placement of chest port - single lumen for need for durable, long-term venous access for chemotherapy. Plan: Plan Planned procedure: Chest Port - Single Lumen Placement Labs to be performed day of procedure: No labs Sedation: Moderate (Conscious sedation) Prophylactic antibiotic : Other (See comments)(Clindamycin) Contrast: No contrast Additional medications for procedure: Lidocaine Medications to discontinue (and days held): None Planned access site: Right IJ Position: Supine Cytopathology presence needed: No Consent: Pending 08/11/2019 documented in this encounter Plan of Treatment Upcoming Encounters Date Type Department Care Team (Latest Contact Info) Description 12/25/2023 9:[address] [place] [place] [phone] Xavier Malhotra MD [facility] [place] [address] 12/29/2023 Hospital Encounter [place] [phone] Xavier Malhotra MD [facility] [place] [address] Paroxysmal atrial fibrillation 12/29/2023 7:30 AM EDT - 12/29/2023 12:00 PM EDT Surgery [place] [phone] Xavier Malhotra MD [facility] ELECTROP[place] [address] ELECTROPHYSIOLOGY PROCEDURE 01/14/2024 10:40 AM EDT Office Visit Cardiology at [address] [phone] Carmen Castaneda PA [facility] CARDIOLOGY [place], [place] [id number] Scheduled Procedures Name Priority Associated Diagnoses Date/Ti me TRANSESOPHAGEAL ECHO DURING CATH/EP PROCEDURE Paroxysmal atrial fibrillation 12/29/2023 7:30 AM EDT documented as of this encounter Procedures Procedure Name Priority Date/Time Associated Diagnosis Comments IR MEDIPORT PLACEMENT Routine 08/20/2019 10:05 AM EDT Malignant neoplasm of ovary, unspecified laterality documented in this encounter Results * IR Mediport Placement (08/20/2019 10:05 AM EDT) Anatomical Region Laterality Modality X-Ray Angiograph y Narrative 08/20/2019 11:09 AM EDT Interventional Radiology Procedure Note Procedure: Subcutaneous venous port implant Indication: Ovarian cancer, durable retirement central venous access for chemotherapy Procedure summary: 1.) Venous access with ultrasound guidance 2.) Tunneled port insertion under fluoroscopic guidance Pre-procedure: Informed consent for the procedure including risks, benefits and alternatives was obtained and time-out was performed prior to the procedure. The site was prepared and draped using all elements of maximal sterile barrier technique including sterile gloves, sterile gown, cap, mask, large sterile sheet, sterile ultrasound probe cover, hand hygiene and cutaneous antisepsis. ?? Sedation: Due to the painful nature of the procedure, patient received split doses of intravenous midazolam and fentanyl from the interventional radiology nurse while pulse, pressure, and oxygen saturation were continuously monitored. Technique: The right internal jugular vein was sonographically evaluated and determined to be patent. A permanent image was stored. Local anesthetic was administered. The vein was accessed via real-time ultrasound and micropuncture set with 21 gauge needle. A 0.018 wire was advanced into superior vena cava. The remainder of the procedure was performed under fluoroscopic guidance. A 4 Fr introducer sheath was placed and the wire exchanged for a 0.035 J wire. The wire was advanced into the inferior vena cava. 1% lidocaine and 2% lidocaine with epinephrine was then infiltrated in a caudal-lateral direction, and infiltrated over a 2x2 cm infraclavicular area for pocket creation. A 2 cm transverse incision was made in the right anterior chest wall, and with blunt dissection a pocket was created. A tunneler was then used to advance the catheter subcutaneously to the venous access site. A 4 Fr introducer sheath was exchanged for a peel-away sheath over the wire. The wire and inner obturator were removed and the catheter advanced into the superior vena cava under fluoroscopic guidance. The catheter was trimmed to appropriate length and attached to the port. The port was inserted into the pocket and the sheath was removed. Catheter tip location was identified and a permanent image was stored. The port flushed and aspirated well. ??The pocket was closed using a two-layer technique with 2-0 vicryl deep interrupted and 4-0 vicryl running sutures. The skin closed was with dermabond. The port was not left accessed. Medications: 1% lidocaine <10 mL subcut, 2% lidocaine with epinephrine <20 mL subcut, midazolam 3 mg IV, fentanyl 150 mcg IV Antibiotic prophylaxis: Clindamycin 900 mg IV Contrast: None Fluoroscopy time: 0.36 minutes Estimated blood loss: 10 mL Complications: No immediate Impression: Implantation of power-injectable, Medcomp 8 Fr Dignity Mini Profile single-lumen port in right chest with tip in cavoatrial junction. The port may be used immediately. Plan: Patient to IR recovery unit, may discharge home when meets criteria. Service provider: Jourdan Lopez PA-C. Present during the intraservice time as documented by the interventional radiology nurse. Attending of record: Mahesh Wick MD 08/20/2019 Natalie Vallejo MD IMG IR ORDERABLES documented in this encounter Visit Diagnoses Diagnosis Malignant neoplasm of ovary, unspecified laterality Paroxysmal atrial fibrillation Atrial fibrillation Paroxysmal atrial fibrillation Atrial fibrillation documented in this encounter Administered Medications Inactive Administered Medications - up to 3 most recent administrations Medication Order MAR Action Action Date Dose Rate Site clindamycin (CLEOCIN) 900mg in dextrose 5% 50mL 900 mg, Intravenous, ONCE, 1 dose, On Fri08/20/19 at 0915, Administer over 30 Minutes, Give over 30-60 minutes. Do not exceed 30mg/minute. Redose every 6 hours if CrCl is greater than 20. Redose every 6 hours if CrCl is less than 20., Angio/IR (Day of Procedure), Indication for (Active or Suspected): Prophylaxis New Bag 08/20/2019 9:15 AM EDT 900 mg 100 mL/hr fentaNYL 50 mcg/mL multi-dose injection 25-50 mcg, Intravenous, EVERY 3 MIN PRN, Starting on Fri08/20/19 at 0847, Until Fri08/20/19 at 1033, Pain, per unit protocol, - Start dose 50 mcg (reduce dose to 25 mcg if history of sedation sensitivity). - Titration dose 25-50 mcg IV, (based on patient response) every 3 minutes PRN, to maintain procedural pain less than 2 per pain Scale. Maximum dose: 50 mcg/dose, 250 mcg/hour For use in Interventional Radiology (IR) only for procedural sedation with direct provider supervision and verbal order., Angio/IR (Intra-Procedure), Routine Given 08/20/2019 9:44 AM EDT 25 mcg Given 08/20/2019 9:40 AM EDT 25 mcg Given 08/20/2019 9:31 AM EDT 50 mcg lidocaine (XYLOCAINE) 10 mg/mL (1 %) injection 10 mg 10 mg, Subcutaneous, ONCE, 1 dose, On Fri08/20/19 at 0915, For use in Interventional Radiology (IR) only for procedure with direct provider supervision and verbal order., Angio/IR (Intra-Procedure), Routine Given 08/20/2019 9:42 AM EDT 10 mg lidocaine-EPINEPHrine 1 %-1:100,000 injection 20 mL 20 mL, Intradermal, ONCE, 1 dose, On Fri08/20/19 at 0915, For use in Interventional Radiology (IR) only for procedural sedation with direct provider supervision and verbal order., Angio/IR (Intra-Procedure), Routine Given 08/20/2019 9:43 AM E DT 20 mLs midazolam (PF) (VERSED) multi-dose injection 0.5-1 mg 0.5-1 mg, Intravenous, EVERY 3 MIN PRN, Starting on Fri08/20/19 at 0847, Until Fri08/20/19 at 1033, Sleep, - Start dose; 1 mg (Reduce dose to 0.5 mg if history of sedation sensitivity). - Titration dose: 0.5 mg - 1 mg (based on patient response) every 3 minutes PRN to obtain RASS score of -3. Maximum dose: 1 mg per dose, 5 mg/hour. For use in Interventional Radiology (IR) only for procedural sedation with direct provider supervision and verbal order., Angio/IR (Intra-Procedure), Routine Given 08/20/2019 9:44 AM EDT 0.5 mg Given 08/20/2019 9:40 AM EDT 0.5 mg Given 08/20/2019 9:31 AM EDT 1 mg sodium chloride 0.9 % (flush) flush 5 mL 5 mL, Intravenous, EVERY 12 HOURS, First dose on Fri08/20/19 at 0915, Until Discontinued, Angio/IR (Day of Procedure), Routine Given 08/20/2019 9:15 AM EDT 5 mLs sodium chloride 0.9% infusion 1,000 mL, at 100 mL/hr, Intravenous, CONTINUOUS, Starting on Fri08/20/19 at 0915, Until Fri08/20/19 at 1033, Angio/IR (Day of Procedure) New Bag 08/20/2019 9:15 AM EDT 1,000 mLs 100 mL/hr documented in this encounter Care Teams Forms Analysis Manager Relationship Specialty Start Date End Date Evelyne Hunt APRN [address] [place] [address] PCP - General Internal Medicine 09/23/17 documented as of this encounter
--- OUTSIDE RECORDS SUMMARY | 2023-12-01 02:18 | XMS_ITS | Encounter Summary ---
Author Organization [facility] [place] [address] Care Team Providers Care Roll Off Driver Name Role Phone Marilee, Evelyne Daugherty APRN Primary Care Provider [phone] Reason for Visit * Reason Onset Date Comments Abdominal Pain 09/02/2019 Encounter Details Date Type Department Care Team (Late st Contact Info) Description 09/02/2019 Telephone Hematology [place] [phone] Mary Mclain RN Abdominal Pain Social History Tobacco Use Types Packs/Day [...] Telephone Encounter - Mary Mclain RN - 09/02/2019 9:25 AM EDT Ivana calls very emotional that she is having a lot of crampy abd pain, leg pain and back pain. States alternating tylenol and ibuprofen around the clock is not helping. States she called the tooth cutter pinion doctor and was advised to take one of her hydromorphone. Asking if it is ok to take another. Pt is using heating pad and hot showers which she thinks may be helping some. documented in this encounter Plan of Treatment Upcoming Encounters Date Type Department Care Team (Latest Contact Info) Description 12/25/2023 9:[address] Scan at [place] [phone] Xavier Malhotra MD [facility] [place] [address] 12/29/2023 Hospital Encounter Electrophysiology Lab at [address] Xavier Malhotra MD [facility] [place] [address] Paroxysmal atrial fibrillation 12/29/2023 7:30 AM EDT - 12/29/2023 12:00 PM EDT Surgery Electrophysiology Lab at [address] Xavier Malhotra MD [facility] [place] [address] ELECTROPHYSIOLOGY PROCEDURE 01/14/2024 10:40 AM EDT Office Visit Cardiology at [place] [phone] Carmen Castaneda PA [facility] [place] [address] Scheduled Procedures Name Priority Associated Diagnoses Date/Ti me TRANSESOPHAGEAL ECHO DURING CATH/EP PROCEDURE Paroxysmal atrial fibrillation 12/29/2023 7:30 AM EDT documented as of this encounter Visit Diagnoses Not on filedocumented in this encounter Care Teams Roll Off Driver Relationship Specialty Start Date End Date Evelyne Hunt APRN [address] [place] [address] PCP - General Internal Medicine 09/23/17 documented as of this encounter
--- OUTSIDE RECORDS SUMMARY | 2023-12-01 02:18 | XMS_ITS | Encounter Summary ---
Author Organization [facility]ly [facility] [address] Care Team Providers Care Product Distribution Specialist Name Role Phone Evelyne Hunt Dat STEVEN Primary Care Provider [phone] Encounter Details Date Type Department Care Team (Late st Contact Info) Description 09/01/2019 Telephone Hematology [place] [phone] Emma Coats MD [facility] DR HEMATOLOGY/[place] [address] Social History Tobacco Use Types Packs/Day Years [...] encounter Miscellaneous Notes * Telephone Encounter - Emma Coats MD - 09/01/2019 8:59 PM EDT Entered in error. documented in this encounter Plan of Treatment Upcoming Encounters Date Type Department Care Team (Latest Contact Info) Description 12/25/2023 9:[address] [place] [phone] Xavier Malhotra MD [facility] [place] [address] 12/29/2023 Hospital Encounter Electrophys[place] [address] Xavier Malhotra MD [facility] [place] [address] Paroxysmal atrial fibrillation 12/29/2023 7:30 AM EDT - 12/29/2023 12:00 PM EDT Surgery Electrophysiology Lab at [place] [phone] Xavier Malhotra MD [facility] [place] [address] ELECTROPHYSIOLOGY PROCEDURE 01/14/2024 10:40 AM EDT Office Visit Cardiology at [address] [phone] Carmen Castaneda PA [facility] [place] [address] Scheduled Procedures Name Priority Associated Diagnoses Date/Ti me TRANSESOPHAGEAL ECHO DURING CATH/EP PROCEDURE Paroxysmal atrial fibrillation 12/29/2023 7:30 AM EDT documented as of this encounter Visit Diagnoses Not on filedocumented in this encounter Care Teams Product Distribution Specialist Relationship Specialty Start Date End Date Evelyne Hunt APRN [address] [place] [address] PCP - General Internal Medicine 09/23/17 documented as of this encounter
--- OUTSIDE RECORDS SUMMARY | 2023-12-01 02:18 | XMS_ITS | Encounter Summary ---
Author Organization [facility] [place] [address] Care Team Providers Care Sketcher Name Role Phone Evelyne Hunt APRN Primary Care Provider [phone] Reason for Visit * Reason Onset Date Comments Pelvic Pain 08/02/2019 Encounter Details Date Type Department Care Team (Late st Contact Info) Description 08/02/2019 Telephone Hematology [place] [phone] Mary Mclain RN Pelvic Pain Social History Tobacco Use Types Packs/Day [...] Telephone Encounter - Mary Mclain RN - 08/02/2019 3:35 PM EDT Evelyne from pt's PCP's office calls to report the pt called her for more dilaudid. Ivana is concernedthat she is having more pain than normal. She is taking dilaudid once or twice a day and alternating tylenol and ibuprofen around the clock. Pt asks that she not get her pathology results until the tele visit with Dr Vallejo on 08/09 because her will be with her at that time and she wants him to hear it too. documented in this encounter Plan of Treatment Upcoming Encounters Date Type Department Care Team (Latest Contact Info) Description 12/25/2023 9:[address] Scan at [place] [phone] Xavier Malhotra MD [facility] [place] [address] 12/29/2023 Hospital Encounter Electrophysiology Lab at [place] [phone] Xavier Malhotra MD [facility] [place] [address] Paroxysmal atrial fibrillation 12/29/2023 7:30 AM EDT - 12/29/2023 12:00 PM EDT Surgery Electrophysiology Lab at [place] [phone] Xavier Malhotra MD [facility] [place] [address] ELECTROPHYSIOLOGY PROCEDURE 01/14/2024 10:40 AM EDT Office Visit Cardiology at [place] [phone] Carmen Castaneda PA [facility] [place] [address] Scheduled Procedures Name Priority Associated Diagnoses Date/Ti me TRANSESOPHAGEAL ECHO DURING CATH/EP PROCEDURE Paroxysmal atrial fibrillation 12/29/2023 7:30 AM EDT documented as of this encounter Visit Diagnoses Not on filedocumented in this encounter Care Teams Sketcher Relationship Specialty Start Date End Date Evelyne Hunt APRN [address] [place] [address] PCP - General Internal Medicine 09/23/17 documented as of this encounter
--- OUTSIDE RECORDS SUMMARY | 2023-12-01 02:18 | XMS_ITS | Encounter Summary ---
Author Organization [facility] Address [facility] [place] [address] Care Team Providers Care Campaign Director Name Role Phone Evelyne Hunt Dat STEVEN Primary Care Provider [phone] Reason for Visit * Reason Comments Medication Refill Encounter Details Date Type Department Care Team (Late Contact Info) Description 08/02/2019 Refill Obstetrics [place] [phone] Misha Ding MD [facility] DR OBSTETRICS [place] [address] Social History Tobacco Use Types Packs/Day Years [...] 9:[address] [place] [phone] Xavier Malhotra MD [facility] [place] [address] 12/29/2023 Hospital Encounter [place] [address] Xavier Malhotra MD [facility] [place] [address] Paroxysmal atrial fibrillation 12/29/2023 7:30 AM EDT - 12/29/2023 12:00 PM EDT Surgery [place] [phone] Xavier Malhotra MD [facility] [place] [address] ELECTROPHYSIOLOGY PROCEDURE 01/14/2024 10:40 AM EDT Office Visit Cardiology at [address] [phone] Carmen Castaneda PA [facility] [place] [address] Scheduled Procedures Name Priority Associated Diagnoses Date/Ti [...] on filedocumented in this encounter Care Teams Campaign Director Relationship Specialty Start Date End Date Evelyne Hunt APRN [address] [place] [address] PCP - General Internal Medicine 09/23/17 documented as of this encounter
--- OUTSIDE RECORDS SUMMARY | 2023-12-01 02:18 | XMS_ITS | Encounter Summary ---
Author Organization [facility] [place] [address] Care Team Providers Care Medium Cycle Salesperson Name Role Phone MarileeEvelyne APRN Primary Care Provider [phone] Reason for Visit * Reason Onset Date Comments Results 08/27/2019 Encounter Details Date Type Department Care Team (Late st Contact Info) Description 08/27/2019 Telephone Hematology [place] [phone] Mary Mclain, RN Results Social History Tobacco [...] Telephone Encounter - Mary Mclain RN - 08/27/2019 8:51 AM EDT Relayed following results to pt Recent Results (from the past 72 hour(s)) CBC (with Diff) Result Value Ref Range WBC 8.05 Hemoglobin 13.7 Hematocrit 38.8 Platelets 294 Neutrophils % 64.6 Neutr Abs (ANC) 5,200 CA 125 23 CBC / CMP / Thyroid External Results Result Value Ref Range Sodium 136 Potassium 3.3 (L) Chloride 100 CO2 28 BUN 14 Creatinine 0.59 Calcium 9.7 Total Protein 7.2 Albumin 4.1 Total Bilirubin 0.8 Alk Phos 93 AST 15 ALT 24 documented in this encounter Plan of Treatment Upcoming Encounters Date Type Department Care Team (Latest Contact Info) Description 12/25/2023 9:[address] [place] [phone] Xavier Malhotra MD [facility] [place] [address] 12/29/2023 Hospital Encounter Electrophysiology Lab at [place] [address] Xavier Malhotra MD [facility] [place] [address] Paroxysmal atrial fibrillation 12/29/2023 7:30 AM EDT - 12/29/2023 12:00 PM EDT Surgery Electrophysiology Lab at [place] [address] Xavier Malhotra MD [facility] [place] [address] ELECTROPHYSIOLOGY PROCEDURE 01/14/2024 10:40 AM EDT Office Visit Cardiology at [place] [address] Carmen Castaneda PA [facility] [place] [address] Scheduled Procedures Name Priority Associated Diagnoses Date/Ti me TRANSESOPHAGEAL ECHO DURING CATH/EP PROCEDURE Paroxysmal atrial fibrillation 12/29/2023 7:30 AM EDT documented as of this encounter Visit Diagnoses Not on filedocumented in this encounter Care Teams Medium Cycle Salesperson Relationship Specialty Start Date End Date Evelyne Hunt APRN [address] [place] [address] PCP - General Internal Medicine 09/23/17 documented as of this encounter
--- OUTSIDE RECORDS SUMMARY | 2023-12-01 02:18 | XMS_ITS | Encounter Summary ---
Author Organization Formerly [facility] [place] [address] Care Team Providers Care News Photographer Name Role Phone Marilee, Evelyne Daugherty APRN Primary Care Provider [phone] Encounter Details Date Type Department Care Team (Late st Contact Info) Description 08/27/2019 Telephone [place] [phone] Tayler Abdi Social History Tobacco Use Types Packs/Day Years [...] encounter Miscellaneous Notes * Telephone Encounter - Tayler Abdi - 08/27/2019 10:16 AM EDT ..Called Ms. Juarez to provide the following information: In order to keep our facility safe for patients and staff during the uncertain time, [facility] is currently not allowing visitors in the facility. If you require assistance to enter the facility to reach your appointment at [facility], we will provide that assistance for you. We request that you enter at the Cancer Center Entrance for your appointment at least 15-30 minutesin advance to allow for the screening process at the door, and someone will be there to meet you and transport you to your destination. We will screen you, and anyone with you, for shortness of breath, cough, fever or other symptoms when you enter the facility, as well as take your temperature. This is being done for all who enter the facility including staff who will take care of you to help ensure your safety. Please be aware that the screeners will allow you to wear your own home-made mask or will give you one to wear, if you are symptomatic you will need to wear a [facility] mask. We are also monitoring temperatures at the door, please do not take any medications to hide a fever. If you have someone who needs to be a part of your medical care and decision making, please arrive to your appointment with their phone number, and the provider will call that person during your appointment. If you require someone to drive you to your appointment due to long distance, we have a designated area for your dirver to wait for you while you go to your appointment(s). S/he will not be allowed to sit in the designated patient waiting area. In order for us to be able to make the best plan to provide your care safely, we need to ask you some screening questions: Patient replied no to all. Are you currently experiencing any new (within the last 14 days) shortness of breath, cough, nasal congestion or drainage, or fever? Have you recently been exposed to anyone with CoVID 19? Do you or anyone in your household have a CoVID 19 test pending or been tested recently? We are asking that you share this to allow us to make the appropriate plan to provide your care safely. Patient was advised that should they develop any of the described symptoms prior to your appointment, do not come in for your appointment but rather contact the Cancer Center for further instructions. Patient verbalized understanding. documented in this encounter Plan of Treatment Upcoming Encounters Date Type Department Care Team (Latest Contact Info) Description 12/25/2023 9:[address] [place] [address] Xavier Malhotra MD [facility] [place] [address] 12/29/2023 Hospital Encounter [place] [address] Xavier Malhotra MD [facility] [place] [address] Paroxysmal atrial fibrillation 12/29/2023 7:30 AM EDT - 12/29/2023 12:00 PM EDT Surgery [place] [phone] Xavier Malhotra MD [facility] [place] [address] ELECTROPHYSIOLOGY PROCEDURE 01/14/2024 10:40 AM EDT Office Visit Cardiology at [address] [phone] Carmen Castaneda PA [facility] [place] [address] Scheduled Procedures Name Priority Associated Diagnoses Date/Ti me TRANSESOPHAGEAL ECHO DURING CATH/EP PROCEDURE Paroxysmal atrial fibrillation 12/29/2023 7:30 AM EDT documented as of this encounter Visit Diagnoses Not on filedocumented in this encounter Care Teams News Photographer Relationship Specialty Start Date End Date Evelyne Hunt APRN [address] [place] [address] PCP - General Internal Medicine 09/23/17 documented as of this encounter
--- OUTSIDE RECORDS SUMMARY | 2023-12-01 02:18 | XMS_ITS | Encounter Summary ---
Author Organization [facility] [place] [address] Care Team Providers Care Electronic Data Processing Auditor Name Role Phone Evelyne Hunt APRN Primary Care Provider [phone] Reason for Visit * Reason Comments Chemotherapy [...] [id number] - TC PACLITAXEL, 1MG, INJ Natalie Valleoj MD [facility] [place] [address] [facility] [address] [place] [address] Referral ID Status Reason Start Date Expiration Date V isits Requested Visits Authorized [id number] 08/30/2019 05/28/2020 13 13 Encounter Details Date Type Department Care Team (Latest Contact Info) Description 08/30/2019 8:15 AM EDT - 08/30/2019 11:59 PM EDT Hospital Encounter Hematology [place] [address] Ovarian cancer, lateral, stage IIIb high-grade serous/endometrioid [...] Sign Reading Time Taken Comments Blood Pressure 105/73 08/30/2019 4:11 PM EDT Pulse 86 08/30/2019 4:11 PM EDT Temperature 36.9 ??C (98.4 ??F) 08/30/2019 4:11 PM ED T Respiratory Rate 16 08/30/2019 4:11 PM EDT Oxygen Saturation 99% 08/30/2019 4:11 PM EDT Inhaled Oxygen Concentration - - Weight 59.1 kg (130 lb 6.4 oz) 08/30/2019 8:47 A M EDT Height 164.4 cm (5' 4.72) 08/30/2019 8:47 AM ED T Body Mass Index 21.89 08/30/2019 8:47 AM EDT documented in this encounter Discharge Instructions * Patient Instructions* Monse Fernandez RN - 08/30/2019 4:14 PM EDT Pt. chemo teaching instructions reinforced: During clinic hours (8am-5pm Friday-Friday): pt. can call [phone] with questions or concerns. After clinic hours (5pm-8am Friday-Friday and weekends) pt can call [phone] and ask for the wicker worker/oncologist data visualization developer. Gabi Luna verbalized understanding of potential chemotherapy side effects and home care including but not limited to- handwashing to prevent infection, signs and symptoms of low blood counts (fever, fatigue, bleeding), to call with a fever of 100.4 or greater, any significant constipation/diarrhea, importance of nutrition and fluid intake (drinking at least 32-64 ounces of non-caffeinatedbeverages/day), mouth care. CALL IF YOU EXPERIENCE ?? Fever of 38 C /100.4 F or higher (do not take medicine to lower your temperature unless your care Team tells you it is OK) ?? Shaking chills with or without fever ?? Difficulty breathing-different from your normal breathing ?? New or uncontrolled pain anywhere ?? Inability to keep fluids down ?? Bleeding ?? Chest pain or palpitations ?? Fluttering in the chest (may feel like butterflies) ?? Swelling of the legs, arm or face ?? Sudden change in vision ?? Seizure ?? Changes in your bowel pattern, with or without abdominal pain (more than 3 loose stools per day,or no stool for 2 days) ?? Sudden changes in your ability to speak CALL IF YOU EXPERIENCE PROBLEM WITH YOUR CATHETER ?? Redness, swelling, discharge or pain at the IV catheter or Mediport site, or leaking around the catheter ?? Catheter has been pulled out ?? Difficulty flushing catheter This list includes many but not all of the most urgent symptoms you might experience. Call your Care Team RIGHT AWAY if you experience any of these as a new symptom. Always call if you have serious concerns about any symptom. [facility] # [phone] and ask for the oncologist or wicker worker on-call documented in this encounter Medications at Time of Discharge Medication Sig Dispensed Refills Start Date End Date pyridoxine, vitamin B6, (B-6) 100 mg Tablet Take 100 mg by mouth daily. 02/01/2020 glutamine 15 gram Powder in Packet Take 15 g by mouth. Will resume as needed 12/29/2019 Alpha Lipoic Acid 600 mg Capsule Take 600 mg by mouth daily. 02/01/2020 prochlorperazine (Compazine) 10 mg Tablet Take 1 [...] as of this encounter Progress Notes * Monse Fernandez RN - 08/30/2019 4:59 PM EDT Patient Name: Gabi Luna Patient Age: 58 y.o. Birthdate: 1960 Admit date: 08/30/2019 Attending Physician: No att. providers found Accepted care of patient from Caroline Velez RN at 1600. Taxol infusing and completed without furtherincidence. Carboplatin and Avastin administered as ordered. Tolerated well. Patient discharged ambulatory with . Verbalized when and where to call should questions or concerns arise. * Caroline Velez RN - 08/30/2019 8:34 AM EDT Patient Name: Gabi Luna Patient Age: 58 y.o. Birthdate: 1960 Admit date: 08/30/2019 Attending Physician: No att. providers found TIME TREATMENT STARTED: 829 TIME TREATMENT ENDED: Transferred care to Elan Fernandez RN @ 1600 Gabi Luna, 58 y.o. female with diagnosis of Ovarian Ca is here for chemotherapy infusion ofTaxol/Carboplatin/Avastin. PROTOCOL: NO CYCLE: 1 WEEK: 1 DAY: 1 S: Pt. offers no complaints at this time. Had first time teaching with. Zora Ward APRN. Has printed information on drugs/side effects/and treatment for neuropathy and antiemetics. O: Chemotherapy orders independently verified for correct drug name, route and dosage per patient'sheight, weight and BSA by Xuan Velez RN and onsite pharmacist Pt. chemo teaching instructions included: During clinic hours (8am-5pm Friday-Friday): pt. can call [phone] with questions or concerns. After clinic hours (5pm-8am Friday-Friday and weekends) pt can call [phone] and ask for the wicker worker/oncologist data visualization developer. Gabi Luna verbalized understanding of potential chemotherapy [...] medications given for home use after chemotherapy. REACTIONS (DESCRIPTION, TIME, INTERVENTION AND EFFECTIVENESS) 17 mls into Taxol C/O of palpitations/lower back pain. Taxol stopped --given Benadryl/pepcid/ativan--see JUN. BP @ time of reaction 179/99 HR 128. Once symptoms subsided restarted @ half rate and rate gradually increased every 30-60 mins and was able to complete Taxol without further incident. Discussed with Dr. Vallejo. A: Pt. Tolerated treatment well. Gabi Luna confirms that all questions and issues have beenaddressed. P: Return to clinic as scheduled documented in this encounter Plan of Treatment Upcoming Encounters Date Type Department Care Team (Latest Contact Info) Description 12/25/2023 9:[address] Scan at [place] [phone] Xavier Malhotra MD [facility] [place] [address] 12/29/2023 Hospital Encounter Elect[place] [phone] Xavier Malhotra MD [facility] [place] [address] Paroxysmal atrial fibrillation 12/29/2023 7:30 AM EDT - 12/29/2023 12:00 PM EDT Surgery Electrophysiology Lab at [place] [phone] Xavier Malhotra MD [facility] [place] [address] ELECTROPHYSIOLOGY PROCEDURE 01/14/2024 10:40 AM EDT Office Visit Cardiology at [address] [phone] Carmen Castaneda PA [facility] [place] [address] Scheduled Procedures Name Priority Associated Diagnoses Date/Ti me TRANSESOPHAGEAL ECHO DURING CATH/EP PROCEDURE Paroxysmal atrial fibrillation 12/29/2023 7:30 AM EDT documented as of this encounter Procedures Procedure Name Priority Date/Time Associated Diagnosis Comments POCT URINE DIPSTICK Routine 08/30/2019 9 :09 AM EDT documented in this encounter Results * POCT urine dipstick (08/30/2019 9:09 AM EDT) POC Protein, UA trace Negative - Negative mg/dL 08/30/2019 9:09 AM EDT Natalie Vallejo MD POINT OF [...] 650 mg, Oral, ONCE, 1 dose, On Fri08/30/19 at 1000, Administer prior to BEVACizumab., Routine Given 08/30/2019 4:46 PM EDT 650 mg aprepitant (CINVANTI) injection Emul 130 mg 130 mg, Intravenous, Administer over 2 Minutes, ONCE, 1 dose, On Fri08/30/19 at 1000, Alternative administration of IV push over 2 minutes is a recommendation from the diaper folder. Administer prior to chemotherapy., Routine Given 08/30/2019 10:06 AM EDT 130 mg BEVACizumab-awwb (MVASI) 900 mg in sodium chloride 0.9% 136 mL infusion 900 mg, Intravenous, ONCE, 1 dose, On Fri08/30/19 at 1100, Administer over 30 Minutes, Compatible with 0.9% sodium chloride ONLY, Dose Ordered = 945 mg (15 mg/kg). Pharmacist rounded dose per procedure., This agent is restricted to outpatient use. Is this drug being given as an outpatient? Yes New Bag 08/30/2019 5:27 PM EDT 900 mg 272 mL/hr CARBOplatin (PARAPLATIN) 610 mg in dextrose 5% 311 mL chemo infusion 610 mg (rounded from 609.8 mg, Target AUC = 5), Intravenous, ONCE, 1 dose, On Fri08/30/19 at 1100, Administer over 30 Minutes, Warning Vesicant/Irritant Medication New Bag 08/30/2019 4:47 PM EDT 610 mg 622 mL/hr dexamethasone 20 mg in sodium chloride 0.9% 50 mL infusion 20 mg, Intravenous, ONCE, 1 dose, On Fri08/30/19 at 1000, Administer over 10 Minutes, Administer 30 minutes prior to PACLitaxel New Bag 08/30/2019 10:16 AM EDT 20 mg 300 mL/hr diphenhydrAMINE (BENADRYL) injection 25 mg 25 mg, Intravenous, ONCE, 1 dose, On Fri08/30/19 at 1000, Administer 30 minutes prior to PACLitaxel, Routine Given 08/30/2019 10:15 AM EDT 25 mg diphenhydrAMINE (BENADRYL) injection 25 mg 25 mg, Intravenous, ONCE PRN, 2 doses, Starting on Fri08/30/19 at 1122, Until Fri08/31/19 at 0434, Itching, for itching, hives and flushing., May repeat once after 10 minutes. IV push over 1 minute once., Routine Given 08/30/2019 11:20 AM EDT 25 mg famotidine (PEPCID) injection 20 mg 20 mg, Intravenous, ONCE, 1 dose, On Fri08/30/19 at 1000, Administer 30 minutes prior to PACLitaxel Given 08/30/2019 10:09 AM EDT 20 mg famotidine (PEPCID) injection 20 mg 20 mg, Intravenous, ONCE, 1 dose, On Fri08/30/19 at 1145, IV push over 1 minute once., Routine Given 08/30/2019 11:23 AM EDT 20 mg heparin, porcine 100 unit/mL flush 500 Units 500 Units, Intravenous, ONCE PRN, Starting on Fri08/30/19 at 1034, Until Fri08/31/19 at 0434, Line Care, Refer to Intravenous (IV) Procedure: Accessing Implanted Vascular Access Devices (332) procedure and/or Intravenous (IV) Job Aid: Adult Flushing & Catheter Care (2143) job aid for additional information regarding guidelines and administration., Routine Given 08/30/2019 6:05 PM EDT 500 Units LORazepam (ATIVAN) injection 0.5 mg 0.5 mg, Intravenous, EVERY 4 HOURS PRN, Starting on Fri08/30/19 at 1131, Until Fri08/31/19 at 0434, Anxiety, Nausea, Vomiting, If multiple antiemetics are ordered, use in the following sequence: Ondansetron>Prochlorperazi ne or Promethazine>Lorazepam>Met oclopramide, Routine Given 08/30/2019 11:35 AM EDT 0.5 mg PACLitaxeL (TAXOL) 298 mg in sodium chloride 0.9% Non-PVC 549.6667 mL chemo infusion 298 mg (rounded from 297.5 mg = 175 mg/m2/dose ? 1.7 m2 Order-specific BSA), Intravenous, ONCE, 1 dose, On Fri08/30/19 at 1100, Administer over 3 Hours, Warning Vesicant/Irritant Medication Rate/Dose Change 08/30/2019 3:30 PM EDT 183 mL/hr Rate/Dose Change 08/30/2019 2:30 PM EDT 150 mL/ hr Rate/Dose Change 08/30/2019 1:40 PM EDT 120 mL/ hr palonosetron (ALOXI) injection 0.25 mg 0.25 mg, Intravenous, ONCE, 1 dose, On Fri08/30/19 at 1000, Administer over 30 seconds., Routine Given 08/30/2019 10:03 AM EDT 0.25 mg sodium chloride 0.9 % (flush) flush 5-20 mL 5-20 mL, Intravenous, EVERY 1 MIN PRN, Starting on Fri08/30/19 at 1034, Until Fri08/31/19 at 0434, Line Care, Flush pertains to all indwelling lines. Flush per protocol found in the job aid using the link provided on this medication record. Refer to Intravenous (IV) Job Aid: Adult Flushing & Catheter Care (4767) job aid for additional information regarding guidelines and administration., Routine Given 08/30/2019 6:05 PM EDT 20 mLs sodium chloride 0.9% infusion 500 mL, Intravenous, CONTINUOUS, Starting on Fri08/30/19 at 1145, Until Fri08/31/19 at 0434, Ensure patent IV access to keep vein open New Bag 08/30/2019 11:27 AM EDT 500 mLs documented in this encounter Care Teams Electronic Data Processing Auditor Relationship Specialty Start Date End Date Evelyne Hunt, GOLF CLUB MANAGER [address] [place] [address] PCP - General Internal Medicine 09/23/17 documented as of this encounter
--- OUTSIDE RECORDS SUMMARY | 2023-12-01 02:18 | XMS_ITS | Encounter Summary ---
Author Organization [facility] [place] [address] Care Team Providers Care Electrician Control Equipment Name Role Phone Kiki Huntyce Dat STEVEN Primary Care Provider [phone] Encounter Details Date Type Department Care Team (Latest Contact Info) Description 08/18/2019 9:00 AM EDT TH Visit (TeleHealth) Gy[place] [address] Sarah De La Torre APRN [facility] [place] [address] Ovarian cancer, lateral, stage IIIb high-grade serous/endometrioid, [...] as of this encounter Progress Notes * Sarah De La Torre APRN - 08/18/2019 9:00 AM EDT Division of [place] [address] Gynecologic Oncology-Telephone Encounter. 1. Reason/purpose for phone call: Chemotherapy teaching 2. The patient voiced an understanding of the reason and intent of the phone call, and provided verbal consent to discuss clinical issues by phone. Additionally, the patient acknowledged that a telephone consultation is a billable encounter, and that the patient or their medical insurance carrier co uld be billed. 3. Date: 08/18/19 Time: Call began at: 9:22; call ended at: 10:25 Total time of call: 63 minutes. 4. 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 07/20/19 s/p TAHBSO/omentectomy/rectosigmoid resection/PPALND ??? 08/30/19 initiate carboplatin/paclitaxel and bevacizumab chemotherapy Attending BRINE PURIFIER/ONC: Dr. Vallejo Treatment plan: 6 cycles of carboplatin/paclitaxel and bevacizumab chemotherapy. 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 Telehealth visit conducted todayvia telephone with patient and her [place] for chemotherapy education/teaching. Patient Active Problem List Diagnosis Code ??? Hypothyroidism E03.9 ??? SVT (supraventricular tachycardia) I47.1 ??? Bicuspid aortic valve Q23.1 ??? Chest pain R07.9 ??? Nonrheumatic aortic valve stenosis--moderate to severe per 2019 echo (scanned docs) I35.0 ??? HTN (hypertension) I10 ??? Ovarian cancer, lateral, stage IIIb high-grade serous/endometrioid, 07/20/2019 s/p FREDI/BSO/oment/PPALND/RSReanstomosis C56.9 Current Outpatient Medications on File Prior to Visit Medication Sig Dispense Refill ??? HYDROmorphone (Dilaudid) [...] facility-administered medications on file prior to visit. Allergies Allergen Reactions ??? Penicillins CIS - Anaphylaxis Assessment and Plan: Gabi Luna is a 58 y.o. 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 Approximately 60 minutes time was spent with patient in discussion/education. The general flow of appointments, and infusion room reviewed and discussed, patient made aware of [facility] support services. Information on Carbo/Taxol/Pavithra reviewed with patient in detail, written educational documents have been sent to patient to review and have on hand to refer to. We discussed expected schedule of treatment as follows: she will be treated once every 3 weeks with both agents, and will require routine lab draws. CBC and CMP will need to be drawn within 5 days prior to her next cycle start. She stated understanding with this schedule and will be getting labs drawn @ [facility], initial lab slip sent to patient. The usual side effects of chemotherapy reviewed with patient including but not limited to the following: fatigue, bone marrow suppression, (including impact to white blood cells, red bloods cells andplatelets), injury to kidneys and liver, hearing/vision problems, infection, arthralgias, neuropathy, diarrhea/constipation, hair loss, decreased appetite (including changes in taste and smell), mouth sores, nausea/vomiting, hypersensitivity reaction, changes to skin/nails, changes to electrolytes,slow wound healing, risk of bleeding, GI perforation, elevated blood pressure and in rare cases neurological disorder or were reviewed. She was given advise on how to manage the above side effect s at home and explained when to call the office for further assistance and to report side effects. We also discussed use of tylenol, patient made aware of antipyretic effects and encouraged she monitor temperature prior to taking when at risk for infection. We also discussed ibuprofen, made her aware of risks of bleeding with NSAIDS and to monitor this throughout treatment. We discussed importance of oral hygiene. Reviewed anti-emetic regimen. Prescriptions for prochlorperazine, ondansetron, and lorazepam were sent to her preferred pharmacy. Each medication reviewed with patient, she was mailed written instructions for their use, including but not limited to not to take ondansetron for 3 days following chemotherapy. Patient verbalized understanding. More detailed discussion re: potential for peripheral neuropathy with paclitaxel. Hand out to be mailed re: cold gloves/socks, L-glutamine powder, B6, Alpha lipoic acid Discussed fatigue and importance of physical activity. At least 20 minutes a day, at least 5 days aweek. Best to incorporate both light aerobic (light sweat) and strength training. Reviewed energy conservation and activity management also reviewed. Planning, delegating, setting priorities, pacing,resting and planning high energy-use activities at times of peak energy were encouraged. Strategiesto optimize sleep quality also reviewed. Discussion re: bowel function and bowel regimen. Recommended increase fiber, fluids and activity tohelp bowel function. Discussed possible need for stool softener, gentle laxative and fiber supplement if she is having issues with constipation. Advised that she call the clinic if she has not had a bowel movement in > 48 hours. Handout to be mailed to patient re: bowel function. We discussed her hair loss, and potential need for prescription and letter of medical necessity fora wig, she declines a wig/rx at this time. She will let us know if she changes her mind. The following resources discussed and will be sent to patient: -Support for People with Cancer [employer] booklets, Chemotherapy and You; Eating Hints Before, During,and After Cancer Treatment; and Taking Time. -[facility] handouts, When to Call My Care Team; Cancer Resources; and Wig and Personal Care Resources Patient and her verbalized understanding of all teaching. She was instructed to call if she had s/sx of infection, or side effects that she was not able to manage,. She will f/u as scheduled for her next chemotherapy visit. She will call/rtc sooner prn with questions, concerns or chemotherapy side effects that she is not able to control with the above strategies. Sarah De La Torre APRN documented in this encounter Plan of Treatment Upcoming Encounters Date Type Department Care Team (Latest Contact Info) Description 12/25/2023 9:[address] Scan at [place] [phone] Xavier Malhotra MD [facility] [place] [address] 12/29/2023 Hospital Encounter [place] [phone] Xavier Malhotra MD [facility] [place] [address] Paroxysmal atrial fibrillation 12/29/2023 7:30 AM EDT - 12/29/2023 12:00 PM EDT Surgery Electrophysiology Lab at [place] [phone] Xavier Malhotra MD [facility] [place] [address] ELECTROPHYSIOLOGY PROCEDURE 01/14/2024 10:40 AM EDT Office Visit Cardiology at [address] [phone] Carmen Castaneda PA [facility] [place] [address] Scheduled Procedures Name Priority Associated Diagnoses Date/Ti me TRANSESOPHAGEAL ECHO DURING CATH/EP PROCEDURE Paroxysmal atrial fibrillation 12/29/2023 7:30 AM EDT documented as of this encounter Visit Diagnoses Diagnosis Ovarian cancer, lateral, stage IIIb high-grade serous/endometrioid, 07/20/2019 s/p FREDI/BSO/oment/PPALND/RSReanstomosis Paroxysmal atrial fibrillation Atrial fibrillation Paroxysmal atrial fibrillation Atrial fibrillation documented in this encounter Care Teams Electrician Control Equipment Relationship Specialty Start Date End Date Evelyne Hunt, TENISHA [address] [place] [address] PCP - General Internal Medicine 09/23/17 documented as of this encounter
--- OUTSIDE RECORDS SUMMARY | 2023-12-01 02:18 | XMS_ITS | Encounter Summary ---
Author Organization [facility] [place] [address] Care Team Providers Care Loss Control Manager Name Role Phone MarileeEvelyne APRN Primary Care Provider [phone] Encounter Details Date Type Department Care Team (Latest Contact Info) Description 08/10/2019 9:30 AM EDT TH Visit (TeleHealth) [place] [address] Pasquale Mederos MD [facility] DR G[place]EC[place] [address] Pelvic mass; Ovarian cancer, lateral, stage IIIb high-grade serous/endometrioid, [...] Progress Notes * Pasquale Mederos MD - 08/10/2019 9:30 AM EDT Division [place] [address] Gynecologic Oncology-Telephone Encounter. Reason/purpose for phone call: Operative checkup and discussion of ovarian cancer diagnosis and treatment Patient location during this visit: Home, in [place]. The patient voiced [...] and provided verbal consent for the encounter. Date: 08/10/2019. Total time of call/video conference: 26 minutes. Summary of conversation, decision making, and plan: See below I spent a total of 44 minutes on this visit,including time with the patient and pre-/post-visit planning for the management of a new diagnosis of ovarian cancer. 9:37 - 10:03 = 26 minutes on the phone followed by an additional 8 minutes and documentation and coordination of care. Division of [place] [address] Postoperative Visit: Patient Active Problem List Diagnosis Code ??? Hypothyroidism E03.9 ??? SVT (supraventricular tachycardia) I47.1 ??? Bicuspid aortic valve Q23.1 ??? Chest pain R07.9 ??? Nonrheumatic aortic valve stenosis--moderate to severe per 2019 echo (scanned docs) I35.0 ??? HTN (hypertension) I10 ??? Pelvic mass R19.00 Subjective: Gabi Luna returns to the office today for her postoperative visit. On 07/20/19 she underwenta ovarian cancer cytoreductive surgery including TAHBSO/omentectomy/rectosigmoid resection/PPALND. Her postoperative course was uncomplicated. She has been doing well since surgery aside from ongoingabdominal pain. She is using Tylenol/ibuprofen during the day and vicodin at night and in the morning. She is frustrated to still be in pain. She denies fevers or bleeding. She notes her incision looks good. She is taking miralax daily to keep her bowels moving and had a normal bowel movement for the past 2 days. She is eating but her appetite is not back to normal. She denies fevers, chills, dysu do, incisional concerns, vaginal bleeding, nausea, vomiting or diarrhea. Objective: There were no vitals filed for this visit. There is no height or weight on file to calculate BMI. There is no height or weight on file to calculate BSA. Physical Exam not done due to the telephone nature of the visit Surgical Pathology: ? 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 She isdoing well postoperatively and is advised that she may resume full activities at 6 weeks postoperatively. She is encouraged to increase her activity slowly each day by introducing some outdoor time and walking. Her recovery at this time appears typical given the surgery that she has undergone. I reviewed her pathology with her and her via phone today. I reviewed that this cancer will require chemotherapy and that the majority of patients will go into remission. The chemotherapy consistsof Taxol, carbo, and bevacizumab given every 21 days for a total of 6 cycles. At the completion of c hemotherapy, we will plan for repeat CT scan and monitoring of CA 125 every cycle. At the completion of chemotherapy, we will consider maintenance with a PARP inhibitor. I have discussed BRCA mutations with the patient and have recommended an appointment with genetic counseling. She is amenable to this. The logistics of the chemotherapy were reviewed and I have recommended that she receive this here under my guidance. We will plan for a port placement and for chemotherapy teaching appointment in the near future. Tiffany had several questions about prognosis and I reviewed with her the statisticssurrounding stage IIIb disease with a 41.5% 5-year survival. I explained the limitations in applying population statistics to a single individual and have noted that we are making strides in treatment of this disease through our national research efforts. Tiffany was understandably quite shocked with this news today and I think may benefit from a palliative care referral in the future to help her deal with this very serious and likely life limiting disease. However this was not addressed today dueto the patient's extreme distress over hearing this news. Referrral to genetic counseling. Referral to IR for mediport placement APPLICATIONS CHEMIST visit for chemo teaching: Taxol/Carbo/Avastin q 21 days to start in 2-3 weeks This encounter was primarily counseling-based (>50 % of total time), with total time of 44 minutes, unrelated to the surgical global period/procedures itself, to discuss a new cancer diagnosis andtreatment as described below, of which 20 minutes was spent with the patient/family discussing: * Diagnostic/test results and/or recommendations for additional diagnostic or confirmatory studies; * Prognosis - related of the diagnosis/stage of the disease and course of treatment; * Risks and benefits of pertinent management and treatment options; * Instructions for disease management and the importance of compliance with recommended treatment; * Risk factor reduction, including additional screening and/or surveillance studies, as well as recommended lifestyle modifications; * Patient and family education, answering questions/concerns. PASQUALE MEDEROS MD documented in this encounter Plan of Treatment Upcoming Encounters Date Type Department Care Team (Latest Contact Info) Description 12/25/2023 9:[address] [place] [address] Xavier Malhotra MD [facility] [place] [address] 12/29/2023 Hospital Encounter [place] [address] Xavier Malhotra MD [facility] [place] [address] Paroxysmal atrial fibrillation 12/29/2023 7:30 AM EDT - 12/29/2023 12:00 PM EDT Surgery [place] [address] Xavier Malhotra MD [facility] [place] [address] ELECTROPHYSIOLOGY PROCEDURE 01/14/2024 10:40 AM EDT Office Visit Cardiology at [address] [address] Carmen Castaneda PA [facility] [place] [address] Scheduled Procedures Name Priority Associated Diagnoses Date/Ti me TRANSESOPHAGEAL ECHO DURING CATH/EP PROCEDURE Paroxysmal atrial fibrillation 12/29/2023 7:30 AM EDT documented as of this encounter Visit Diagnoses Diagnosis Pelvic mass Abdominal or pelvic swelling, mass or lump, unspecified site Ovarian cancer, lateral, stage IIIb high-grade serous/endometrioid, 07/20/2019 s/p FREDI/BSO/oment/PPALND/RSReanstomosis Paroxysmal atrial fibrillation Atrial fibrillation Paroxysmal atrial fibrillation Atrial fibrillation documented in this encounter Care Teams Loss Control Manager Relationship Specialty Start Date End Date Evelyne Hunt APRN [address] [facility] [place] [address] PCP - General Internal Medicine 09/23/17 documented as of this encounter
--- OUTSIDE RECORDS SUMMARY | 2023-12-01 02:18 | XMS_ITS | Encounter Summary ---
Author Organization [facility] [place] [address] Care Team Providers Care Supervisor Incising Name Role Phone Kiki Huntyce Dat STEVEN Primary Care Provider [phone] Reason for Visit * Reason Onset Date Comments Other 08/04/2019 Encounter Details Date Type Department Care Team (Late st Contact Info) Description 08/04/2019 Telephone [place] [address] Kendal Mitchell Other Social History Tobacco Use Types Packs/Day [...] encounter Miscellaneous Notes * Telephone Encounter - Kendal Mitchell - 08/04/2019 9:44 AM EDT Called patient to let her know we would switch her appt to telehealth instead of TOV and I will send her instructions through her [facility]. Left VM to have her call back. documented in this encounter Plan of Treatment Upcoming Encounters Date Type Department Care Team (Latest Contact Info) Description 12/25/2023 9:[address] [place] [address] Xavier Malhotra MD [facility] [place] [address] 12/29/2023 Hospital Encounter Electrophysiology Lab at [place] [phone] Xavier Malhotra MD [facility] [place] [address] Paroxysmal atrial fibrillation 12/29/2023 7:30 AM EDT - 12/29/2023 12:00 PM EDT Surgery Electrophysiology Lab at [address] Xavier Malhotra MD [facility] [place] [address] ELECTROPHYSIOLOGY PROCEDURE 01/14/2024 10:40 AM EDT Office Visit Cardiology at [place] [phone] Carmen Castaneda PA [facility] [place] [address] Scheduled Procedures Name Priority Associated Diagnoses Date/Ti me TRANSESOPHAGEAL ECHO DURING CATH/EP PROCEDURE Paroxysmal atrial fibrillation 12/29/2023 7:30 AM EDT documented as of this encounter Visit Diagnoses Not on filedocumented in this encounter Care Teams Supervisor Incising Relationship Specialty Start Date End Date Evelyne Hunt APRN [address] [place] [address] PCP - General Internal Medicine 09/23/17 documented as of this encounter
--- OUTSIDE RECORDS SUMMARY | 2023-12-01 02:18 | XMS_ITS | Encounter Summary ---
Author Organization [facility] [place] [address] Care Team Providers Care Plumber Cub Name Role Phone Evelyne Hunt Dat STEVEN Primary Care Provider [phone] Encounter Details Date Type Department Care Team (Late st Contact Info) Description 08/27/2019 External Results Hematology and Oncology at [place] [phone] Mary Mclain, RN Social History Tobacco Use [...] 9:[address] [place] [address] Xavier Malhotra MD [facility] [place] [place] [address] 12/29/2023 Hospital Encounter Electrophysiology Lab at [place] [phone] Xavier Malhotra MD [facility] [address] [place] [phone] Paroxysmal atrial fibrillation 12/29/2023 7:30 AM EDT - 12/29/2023 12:00 PM EDT Surgery [place] [phone] Xavier Malhotra MD [facility] [place] [address] ELECTROPHYSIOLOGY PROCEDURE 01/14/2024 10:40 AM EDT Office Visit Cardiology at [address] [phone] Carmen Castaneda PA [facility] CARDIOLOGY [place], [place] [phone] Scheduled Procedures Name Priority Associated Diagnoses Date/Ti me TRANSESOPHAGEAL ECHO DURING CATH/EP PROCEDURE Paroxysmal atrial fibrillation 12/29/2023 7:30 AM EDT documented as of this encounter Procedures Procedure Name Priority Date/Time Associated Diagnosis Comments EXTERNAL LAB CBC CMP THYROID RESULTS PANEL Routine 08/25/2019 documented in this encounter Results * (ABNORMAL) CBC / CMP / Thyroid External Results (08/25/2019) Sodium 136 Potassium 3.3(L) Chloride 100 Carbon Dioxide 28 Blood Urea Nitrogen 14 Creatinine 0.59 Calcium 9.7 Protein, Total 7.2 Albumin 4.1 Bilirubin, Total 0.8 Alkaline Phosphatase 93 Aspartate Aminotransferase 15 Alanine Aminotransferase 24 08/25/2019 Natalie Vallejo MD EXTERNAL LAB ORDERAB LES documented in this encounter Visit Diagnoses Not on filedocumented in this encounter Care Teams Plumber Cub Relationship Specialty Start Date End Date Evelyne Hunt APRN [address] [place] [address] PCP - General Internal Medicine 09/23/17 documented as of this encounter
--- OUTSIDE RECORDS SUMMARY | 2023-12-01 02:18 | XMS_ITS | Encounter Summary ---
Author Organization [facility] Address [facility] Bert cassidy [place] [id number] Care Team Providers Care Exchange Trouble Shooter Name Role Phone MarileeEvelyne APRN Primary Care Provider [phone] Reason for Referral * Diagnostic Test (Routine) - Closed Specialty Diagnoses / Procedures Referred By Contac t Referred To Contact Radiology Diagnoses Malignant neoplasm of ovary, unspecified laterality Procedures IR Mediport Placement Natalie Vallejo MD [facility] [place] [address] [place] [address] Referral ID Status Reason Start Date Expiration Date V isits Requested Visits Authorized [id number] Closed Specialty Service Requested 08/10/2019 02/08/2021 1 1 Reason for Visit * Reason Onset Date Comments Other 08/10/2019 Encounter Details Date Type Department Care Team (Late st Contact Info) Description 08/10/2019 Telephone [place] [phone] Natalie Vallejo MD [facility] [place] [address] Other Social History Tobacco Use Types Packs/Day [...] 9:[address] Scan at [place] [phone] Xavier Malhotra MD [facility] [place] [address] 12/29/2023 Hospital Encounter Electrophysiology Lab at [place] [phone] Xavier Malhotra MD [facility] [place] [address] Paroxysmal atrial fibrillation 12/29/2023 7:30 AM EDT - 12/29/2023 12:00 PM EDT Surgery [place] [address] Xavier Malhotra MD [facility] [place] [address] ELECTROPHYSIOLOGY PROCEDURE 01/14/2024 10:40 AM EDT Office Visit Cardiology at [address] [phone] Carmen Castaneda PA [facility] [place] [address] Scheduled Procedures Name Priority Associated Diagnoses Date/Ti me TRANSESOPHAGEAL ECHO DURING CATH/EP PROCEDURE Paroxysmal atrial fibrillation 12/29/2023 7:30 AM EDT documented as of this encounter Results * IR Mediport Placement (08/20/2019 10:05 AM EDT) Anatomical Region Laterality Modality X-Ray Angiograph y Narrative 08/20/2019 11:09 AM EDT Interventional Radiology Procedure Note Procedure: Subcutaneous venous port implant Indication: Ovarian cancer, durable long-term central venous access for chemotherapy Procedure summary: [...] Malignant neoplasm of ovary, unspecified laterality- Primary Malignant neoplasm of ovary, unspecified laterality Paroxysmal atrial fibrillation Atrial fibrillation Paroxysmal atrial fibrillation Atrial fibrillation documented in this encounter Care Teams Exchange Trouble Shooter Relationship Specialty Start Date End Date Evelyne Hunt APRN [address] [place] [address] PCP - General Internal Medicine 09/23/17 documented as of this encounter
--- OUTSIDE RECORDS SUMMARY | 2023-12-01 02:19 | XMS_ITS | Encounter Summary ---
Author Organization [facility] Address [facility] [place] [address] Care Team Providers Care Autocad Technician Name Role Phone Tavon Hanna Dow APRN Primary Care Provider [phone] Encounter Details Date Type Department Care Team (Late st Contact Info) Description 09/09/2013 Orders [place] [address] Cristóbal Baldwin MD [facility] [place] [address] Intraabdominal fluid collection (Primary Dx) Social History Tobacco Use Types Packs/Day Years Used Date Smoking Tobacco: Never Assessed Sex and Gender Information Value Date Recorded Sex Assigned at Not on file Gender Identity Not on file Sexual Orientation Not on file documented as of this encounter Progress Notes * Cristóbal Baldwin MD - 09/09/2013 12:40 PM EDT VIR PRE-PROCEDURE NOTE Name: Gabi Luna Date of : 1960 Age: 52 y.o. Referring Physician (if different): Dr. Mesfin Hinds Indication: Abscess Planned Procedure: CT guided drain placement. Chief Complaint/Diagnosis: 52 yo ~2 weeks s/p appendectomy returned with pain, fever and chills. CTobtained in [facility] by report shows 5cm RLQ collection. Plan is to have pt come to [facility] for CT guideddrain placement and then return to [facility]. There is no problem list on file for this patient. Allergies Allergen Reactions ??? Penicillins CIS - Anaphylaxis No current outpatient prescriptions on file prior to visit. Labs: No results found for this basename: wbc, anc, hct, PLATELET, inr, bun, creatinine Imaging: No images are attached to the encounter or orders placed in the encounter. Physical Exam: pending ASA: pending Mallampati Class: pending Assessment / Plan: 52 yo inpatient in [facility] with 5cm RLQ collection following appendectomy.Plan is to have pt come to [facility] for CT guided drain placement and then return to [facility]. documented in this encounter Plan of Treatment Upcoming Encounters Date Type Department Care Team (Latest Contact Info) Description 12/25/2023 9:[address] [place] [address] Xavier Malhotra MD [facility] [place] [address] 12/29/2023 Hospital Encounter Electrophysiology Lab at [place] [phone] Xavier Malhotra MD [facility] [place] [address] Paroxysmal atrial fibrillation 12/29/2023 7:30 AM EDT - 12/29/2023 12:00 PM EDT Surgery [place] [address] Xavier Malhotra MD [facility] [place] [address] ELECTROPHYSIOLOGY PROCEDURE 01/14/2024 10:40 AM EDT Office Visit Cardiology at [address] [phone] Carmen Castaneda PA [facility] [place] [place] [address] Scheduled Procedures Name Priority Associated Diagnoses Date/Ti me TRANSESOPHAGEAL ECHO DURING CATH/EP PROCEDURE Paroxysmal atrial fibrillation 12/29/2023 7:30 AM EDT documented as of this encounter Visit Diagnoses Diagnosis Intraabdominal fluid collection- Primary Other ascites Paroxysmal atrial fibrillation Atrial fibrillation Paroxysmal atrial fibrillation Atrial fibrillation documented in this encounter Care Teams Autocad Technician Relationship Specialty Start Date End Date Hanna Montes De Oca APRN [address] [place] [address] PCP - General 03/13/10 09/22/17 documented as of this encounter
--- OUTSIDE RECORDS SUMMARY | 2023-12-01 02:19 | XMS_ITS | Referral Summary ---
Author Organization [facility] Address [address] [place] [address] Care Team Providers Care Ostrich Farmer Name Role Phone MarileeKikiEvelyne A TRANSPORTATION SOLUTIONS MANAGER Primary Care Provider [phone] Active Problems Patient Care Coordination No te Formatting of this note migh t be different from the original. Pt's legal name is Gabi but she goes by Ivana. No additional problems on file Social History Tobacco Use Types Packs/Day Years Used Date Smoking Tobacco: Never Assessed Interpersonal Safety Answer Date Record ed Physically Hurt Never 11/21/2019 Verbally Threaten Not on file 11/21/2019 Sex and Gender Information Value Date Recorded Sex Assigned at Not on file Gender Identity Female 08/19/2019 15:16 EDT Sexual Orientation Not on file Plan of Treatment Not on file Care Teams Ostrich Farmer Relationship Specialty Start Date End Date Evelyne Hunt NP [address] [place] [id number] PCP - General 08/19/19
--- OUTSIDE RECORDS SUMMARY | 2023-12-01 02:19 | XMS_ITS | Encounter Summary ---
Author Organization [facility] [place] [address] Care Team Providers Care Fire Extinguisher Tester Name Role Phone Evelyne Hunt TENISHA Primary Care Provider [phone] Encounter Details Date Type Department Care Team (Late st Contact Info) Description 07/05/2019 Ancillary Procedure [place] [address] Natalie Vallejo MD [facility] [place] [address] Social History Tobacco Use Types Packs/Day Years Used Date Smoking Tobacco: Former Smokeless Tobacco: Never Alcohol Use Standard Drinks/Week Comments Yes 0 (1 standard drink = 0.6 oz pur e alcohol) 2-3 drinks per day Sex and Gender Information Value Date Recorded Sex Assigned at Not on file Gender Identity Not on file Sexual Orientation Not on file documented as of this encounter Plan of Treatment Upcoming Encounters Date Type Department Care Team (Latest Contact Info) Description 12/25/2023 9:[address] [place] [address] Xavier Malhotra MD [facility] [place] [address] 12/29/2023 Hospital Encounter Elect[place] [address] Xavier Malhotra MD [facility] [place] [address] Paroxysmal atrial fibrillation 12/29/2023 7:30 AM EDT - 12/29/2023 12:00 PM EDT Surgery Electrophys[place] [phone] Xavier Malhotra MD [facility] [place] [address] ELECTROPHYSIOLOGY PROCEDURE 01/14/2024 10:40 AM EDT Office Visit Cardiology at [address] [phone] Carmen Castaneda PA [facility] [place] [place] [address] Scheduled Procedures Name Priority Associated Diagnoses Date/Ti me TRANSESOPHAGEAL ECHO DURING CATH/EP PROCEDURE Paroxysmal atrial fibrillation 12/29/2023 7:30 AM EDT documented as of this encounter Procedures Procedure Name Priority Date/Time Associated Diagnosis Comments FILM LIBRARY STORAGE ONLY ULTRASOUND STUDY Routine 07/05/2019 12:00 AM EDT documented in this encounter Results * Film Library- Storage Only Ultrasound Study (07/05/2019 12:00 AM EDT) Narrative [facility] - 07/08/2019 3:40 PM EDT This exam is auto-finalizing. It's purpose is for storage only. Natalie Vallejo MD IMG FILM LIBRARY ORD ERABLES [place], [place] documented in this encounter Visit Diagnoses Not on filedocumented in this encounter Care Teams Fire Extinguisher Tester Relationship Specialty Start Date End Date Evelyne Hunt APRN [address] [place] [address] PCP - General Internal Medicine 09/23/17 documented as of this encounter
--- OUTSIDE RECORDS SUMMARY | 2023-12-01 02:19 | XMS_ITS | Encounter Summary ---
Author Organization Formerly [facility] [place] [address] Care Team Providers Care Atv Mechanic Name Role Phone Evelyne Hunt TENISHA Primary Care Provider [phone] Encounter Details Date Type Department Care Team (Late st Contact Info) Description 2017 Telephone Cardiology at [address] [phone] Blossom Field RN Social History Tobacco Use Types Packs/Day Years Used Date Smoking Tobacco: Never Smokeless Tobacco: Never Sex and Gender Information Value Date Recorded Sex Assigned at Not on file Gender Identity Not on file Sexual Orientation Not on file documented as of this encounter Miscellaneous Notes * Telephone Encounter - Blossom Field RN - 2017 10:24 AM EDT Received patient call requesting results of her Echo Stress test on 09/26/17. Patient was read and discussed the Impression statement and patient verbalized her understanding. Questions answered to her satisfaction. Patient scheduled for f/u with Dr. Trujillo on 12/17/17. Patient knows how to contact Cardiology office and understands they may do so at any time with further questions or concerns.\ Blossom Field RN, BSN Ambulatory Cardiology Department documented in this encounter Plan of Treatment Upcoming Encounters Date Type Department Care Team (Latest Contact Info) Description 12/25/2023 9:[address] [place] [place] [address] Xavier Malhotra MD [facility] [place] [address] 12/29/2023 Hospital Encounter Electrophysiology Lab at [place] [phone] Xavier Malhotra MD [facility] [place] [address] Paroxysmal atrial fibrillation 12/29/2023 7:30 AM EDT - 12/29/2023 12:00 PM EDT Surgery Electrophysiology Lab at [place] [phone] Xavier Malhotra MD [facility] [place] [address] ELECTROPHYSIOLOGY PROCEDURE 01/14/2024 10:40 AM EDT Office Visit Cardiology at [address] [phone] Carmen Castaneda PA [facility] [place] [address] Scheduled Procedures Name Priority Associated Diagnoses Date/Ti me TRANSESOPHAGEAL ECHO DURING CATH/EP PROCEDURE Paroxysmal atrial fibrillation 12/29/2023 7:30 AM EDT documented as of this encounter Visit Diagnoses Not on filedocumented in this encounter Care Teams Atv Mechanic Relationship Specialty Start Date End Date Evelyne Hunt APRN [address] [place] [address] PCP - General Internal Medicine 09/23/17 documented as of this encounter
--- OUTSIDE RECORDS SUMMARY | 2023-12-01 02:19 | XMS_ITS | Encounter Summary ---
Author Organization Formerly [facility] [place] [address] Care Team Providers Care Winemaker Name Role Phone Tavon Hanna Dow APRN Primary Care Provider [phone] Encounter Details Date Type Department Care Team (Late st Contact Info) Description 09/09/2013 Orders Only Radiology at [place] [phone] Cristóbal Baldwin MD [facility] [place] [address] Social History Tobacco Use Types Packs/Day Years Used Date Smoking Tobacco: Never Assessed Sex and Gender Information Value Date Recorded Sex Assigned at Not on file Gender Identity Not on file Sexual Orientation Not on file documented as of this encounter Plan of Treatment Upcoming Encounters Date Type Department Care Team (Latest Contact Info) Description 12/25/2023 9:[address] [place] [phone] Xavier Malhotra MD [facility] [place] [place] [address] 12/29/2023 Hospital Encounter [place] [address] Xavier Malhotra MD [facility] [place] [address] Paroxysmal atrial fibrillation 12/29/2023 7:30 AM EDT - 12/29/2023 12:00 PM EDT Surgery [place] [phone] Xavier Malhotra MD [facility] [place] [address] ELECTROPHYSIOLOGY PROCEDURE 01/14/2024 10:40 AM EDT Office Visit Cardiology at [address] [phone] Carmen Castaneda PA [facility] [place] [address] Scheduled Procedures Name Priority Associated Diagnoses Date/Ti me TRANSESOPHAGEAL ECHO DURING CATH/EP PROCEDURE Paroxysmal atrial fibrillation 12/29/2023 7:30 AM EDT documented as of this encounter Procedures Procedure Name Priority Date/Time Associated Diagnosis Comments FILM LIBRARY STORAGE ONLY CT ABDOMEN AND PELVIS Routine 09/09/2013 12:46 PM EDT documented in this encounter Results * Film Library- Storage only CT abdomen & pelvis (09/09/2013 12:46 PM EDT) Anatomical Region Laterality Modality Abdomen, Pelvis Other 09/09/2013 12:4 6 PM EDT Narrative 09/09/2013 12:51 PM EDT This is a Non-reportable exam Procedure Note 09/09/2013 This is a Non-reportable exam Cristóbal Baldwin MD IM FILM LIBRARY ORD ERABLES documented in this encounter Visit Diagnoses Not on filedocumented in this encounter Care Teams Winemaker Relationship Specialty Start Date End Date Hanna Montes De Oca APRN [address] [place] [address] PCP - General 03/13/10 09/22/17 documented as of this encounter
--- OUTSIDE RECORDS SUMMARY | 2023-12-01 02:19 | XMS_ITS | Encounter Summary ---
Author Organization [facility] [place] [address] Care Team Providers Care Log Feeder Name Role Phone Evelyne Hunt Dat STVEEN Primary Care Provider [phone] Encounter Details Date Type Department Care Team (Late st Contact Info) Description 04/17/2018 10:00 AM EST Ancillary Procedure [place] [address] Mason Trujillo II, MD [facility] [place] [address] Social History Tobacco Use Types [...] 9:[address] [place] [address] Xavier Malhotra MD [facility] [place] [address] 12/29/2023 Hospital Encounter [place] [address] Xavier Malhotra MD [facility] [place] [address] Paroxysmal atrial fibrillation 12/29/2023 7:30 AM EDT - 12/29/2023 12:00 PM EDT Surgery [place]rophys[place] [address] Xavier Malhotra MD [facility] [place] [address] ELECTROPHYSIOLOGY PROCEDURE 01/14/2024 10:40 AM EDT Office Visit Cardiology at [address] [phone] Carmen Castaneda PA [facility] [place] [address] Scheduled Procedures Name Priority Associated Diagnoses Date/Ti me TRANSESOPHAGEAL ECHO DURING CATH/EP PROCEDURE Paroxysmal atrial fibrillation 12/29/2023 7:30 AM EDT documented as of this encounter Procedures Procedure Name Priority Date/Time Associated Diagnosis Comments FILM LIBRARY STORAGE ONLY DX CHEST Routine 04/17/2018 9:57 AM EST documented in this encounter Results * Film Library- Storage Only DX Chest (04/17/2018 9:57 AM EST) Narrative [facility] - 04/17/2018 9:57 AM EST This exam is for storage only and is auto-finalizing. Mason Trujillo II, MD IMG FILM LIBRAR Y ORDERABLES Performing Organization Address City/State/[facility] Co de Phone Number [place], [place] documented in this encounter Visit Diagnoses Not on filedocumented in this encounter Care Teams Log Feeder Relationship Specialty Start Date End Date Evelyne Hunt APRN [address] [place] [address] PCP - General Internal Medicine 6/5/18 documented as of this encounter
--- OUTSIDE RECORDS SUMMARY | 2023-12-01 02:19 | XMS_ITS | Encounter Summary ---
Author Organization [facility] Address [facility] [place] [address] Care Team Providers Care Strip Mill Operator Name Role Phone Marilee Evelyne Dat STEVEN Primary Care Provider [phone] Reason for Visit * Reason Comments Aortic Stenosis Aortic valve is bicu spid. SUDHAKAR 0.8, DOI 0.25, grads 57/30 mmHg. Moderate AI Tachycardia Encounter Details Date Type Department Care Team (Late st Contact Info) Description 12/17/2017 1:20 PM EDT Office Visit Cardiology at [address] [phone] Mason Trujillo II, MD [facility] [place] [address] Aortic valve disorder; SVT (supraventricular tachycardia) Social History Tobacco Use [...] Sign Reading Time Taken Comments Blood Pressure 122/75 12/17/2017 1:10 PM EDT Pulse 68 12/17/2017 1:10 PM EDT Temperature - - Respiratory Rate - - Oxygen Saturation 100% 12/17/2017 1:10 PM EDT Inhaled Oxygen Concentration - - Weight 58.5 kg (129 lb) 12/17/2017 1:10 PM EDT Height 166.4 cm (5' 5.5) 12/17/2017 1:10 PM EDT Body Mass Index 21.14 12/17/2017 1:10 PM EDT documented in this encounter Progress Notes * Mason Trujillo II - 12/17/2017 1:20 PM EDT Patient Name: Gabi Luna : 1960 Age: 57 y.o. Date of Visit: 12/17/2017 Primary Care Physician: Evelyne Hunt APRN The patient is a 57 y.o. female who is seen in follow up in Cardiology Clinic and who has the cardiovascular and other diagnoses as below: Patient Active Problem List Diagnosis ??? SVT (supraventricular tachycardia) ??? Aortic valve disorder Aortic valve is bicuspid. SUDHAKAR 0.8, DOI 0.25, grads 57/30 mmHg. Moderate AI ??? Hypothyroidism ??? H/O: x2 Current medications were reviewed and include: Outpatient Prescriptions Marked as Taking for the 12/17/17 encounter (Office Visit) with Mason Trujillo II, MD Medication Sig Dispense Refill ??? amino acids/mv,tx,iron,mineral (BIOTECT PLUS ORAL) Take 5,000 mcg by mouth daily. ??? atorvastatin (LIPITOR) 10 [...] please call our office.). 60 tablet 3 ??? buPROPion (WELLBUTRIN XL) 150 mg 24 hr tablet Take 300 mg by mouth every morning. Interval History: I last saw Mrs. Luna with Dr. Good on September 17, 2017. She had had a long history of palpitations and had presented to hospital in [facility] with palpitations and presyncope and was diagnosed with a supraventricular tachycardia. She was initially started on a beta-jessa but then switched to diltiazem. An echocardiogram showed aortic stenosis [facility] evaluation here we requested a stress echocardiogram which was performed on September 26, 2017. That study confirmed a bicuspid aortic valve with a mean gradient of 24. Her calculated aortic valve area was 1.28 with a DOI of 0.38 consistent with moderate aortic stenosis. She also had 1-2+ aortic regurgitation and 1+ mitral regurgitation there was no evidence of ischemia and she stopped at 11 metastases for exertional dyspnea. Since that appointment she is continued to be free of significant symptoms. She denies chest discomfort she gets short of breath only with significant exertion, she does have continued rare palpitations. ROS: Otherwise normal. Exam: Vital signs this visit: Vitals: 12/17/17 1310 BP: 122/75 Pulse: 68 SpO2: 100% Weight: 58.5 kg (129 lb) Height: 166.4 cm (5' 5.5) Chest: Clear to auscultation. Cardiac exam: Normal S1, decreased S2 with a 2-3/6 mid peaking systolic murmur heard best in the aortic area and radiating to the carotids. Carotid upstrokes are brisk. There are no carotid bruits. Jugular venous pressure is not elevated. Abdominal exam is benign without organomegaly, masses, tenderness. Examination of the extremities reveals no edema. Neurologic exam is grossly nonfocal. No results for input(s): WBC, HGB, HCT, PLATELET, NA, K, BUN, CREATININE, HA1C, ALT, CHLPL in the last 720 hours. Assessment: 57-year-old female with a history of supraventricular tachycardia and moderate mixed aortic valve disease. Her stress echo shows good exercise tolerance and she is essentially asymptomatic. Her SVT seems to be suppressed with diltiazem. Unfortunately we do not have a strip showing what the SVT was so I have asked her to send me the one that she has in her records. She also had a Ziopatch performed by Dr. Childress which she was wearing at the time of her last evaluation here which she was wearing at the time of her last evaluation here. We will call his office and retrieve those results. Plan: 1. Retrieve results of Ziopatch. 2. Follow-up in this clinic in 1 year with echocardiogram 3. Continue diltiazem Mason Trujillo MD Mason [place], [place] documented in this encounter Plan of Treatment Upcoming Encounters Date Type Department Care Team (Latest Contact Info) Description 12/25/2023 9:[address] [place] [address] Xavier Malhorta MD [facility] [place] [address] 12/29/2023 Hospital Encounter Electrophysiology Lab at [place] [address] Xavier Malhotra MD [facility] [place] [address] Paroxysmal atrial fibrillation 12/29/2023 7:30 AM EDT - 12/29/2023 12:00 PM EDT Surgery [place] [address] Xavier Malhotra MD [facility] [place] [address] ELECTROPHYSIOLOGY PROCEDURE 01/14/2024 10:40 AM EDT Office Visit Cardiology at [address] [phone] Carmen Castaneda PA [facility] [place] [address] Scheduled Procedures Name Priority Associated Diagnoses Date/Ti me TRANSESOPHAGEAL ECHO DURING CATH/EP PROCEDURE Paroxysmal atrial fibrillation 12/29/2023 7:30 AM EDT documented as of this encounter Visit Diagnoses Diagnosis Aortic valve disorder Aortic valve disorders SVT (supraventricular tachycardia) Other specified cardiac dysrhythmias Paroxysmal atrial fibrillation Atrial fibrillation Paroxysmal atrial fibrillation Atrial fibrillation documented in this encounter Care Teams Strip Mill Operator Relationship Specialty Start Date End Date Evelyne Hunt APRN [address] [place] [address] PCP - General Internal Medicine 09/23/17 documented as of this encounter
--- OUTSIDE RECORDS SUMMARY | 2023-12-01 02:19 | XMS_ITS | Encounter Summary ---
Author Organization [facility] Address [facility] Bert cassidy [place] [id number] Care Team Providers Care Dairy Processing Supervisor Name Role Phone Evelyne Hunt APRN Primary Care Provider [phone] Reason for Referral * Diagnostic Test (Routine) - Closed Specialty Diagnoses / Procedures Referred By Contac t Referred To Contact Cardiology Diagnoses Nonrheumatic aortic valve stenosis Procedures Echocardiogram Transthoracic([facility]) Franklyn Toure MD [facility] [place] [address] [facility] [place] [address] Referral ID Status Reason Start Date Expiration Date V isits Requested Visits Authorized [id number] Closed Specialty Service Requested 05/18/2019 05/17/2020 1 1 Encounter Details Date Type Department Care Team (Late st Contact Info) Description 05/18/2019 8:00 AM EST Office Visit Cardiology at [address] [address] Franklyn Toure MD [facility] [place] [address] SVT (supraventricular tachycardia); Chest pain, unspecified type; Nonrheumatic aortic valve stenosis; Bicuspid aortic valve Social History Tobacco Use [...] Sign Reading Time Taken Comments Blood Pressure 123/81 05/18/2019 8:11 AM EST Pulse 69 05/18/2019 8:11 AM EST Temperature - - Respiratory Rate - - Oxygen Saturation 99% 05/18/2019 8:11 AM EST Inhaled Oxygen Concentration - - Weight 62.9 kg (138 lb 9.6 oz) 05/18/2019 8:11 A M EST Height 166.4 cm (5' 5.5) 05/18/2019 8:11 AM EST Body Mass Index 22.71 05/18/2019 8:11 AM EST documented in this encounter Progress Notes * Franklyn Toure MD - 05/18/2019 8:00 AM EST Images from the original note were not included. changes [facility] [place] [phone] changes [facility] [place] [address] Gabi Luna [id number] 05/18/2019 REFERRING PROVIDER: Evelyne Hunt PROBLEM LIST Patient Active Problem List Diagnosis ??? Nonrheumatic aortic valve stenosis ??? Chest pain ??? SVT (supraventricular tachycardia) ??? Bicuspid aortic valve ??? Hypothyroidism ??? H/O: x2 HISTORY OF PRESENT ILLNESS: Ms. Luna is being seen for follow-up cardiovascular examination, particular regard to aortic stenosis. She has been followed by Dr. Unique Trujillo and last saw him during a hospitalization for atypical chest pain in March 2018. Stress echocardiography was negative for myocardial ischemia in which she was discharged home. Prior to that he had seen her in the office in November 2017 for evaluationof aortic stenosis, which by echocardiogram was determined to be moderate with an aortic valve areaof 1.28 cm??. She was advised to follow-up in approximately 1 year. Recently her primary care physician arrange for her to have an echocardiogram at [facility], which demonstrated progression in the severity of the aortic stenosis. Dr. Trujillo was informed and he arranged for this follow- up visit. Compared to how she felt a year ago, she feels she is less inclined to exercise than she had previously but with no particular reason. She is able to climb 2-3 flights of stairs, but may observe shortness of breath at the top of 1 or 2 flights. She denies chest discomfort, orthopnea, nocturnal dyspnea, or ankle swelling. She denies lightheadedness or syncope. Several weeks ago she had 2 distinct episodes of palpitations, feeling as though her heart rate was rapid, each lasting 1/2-hour. The each occurred at rest and resolved spontaneously. PAST MEDICAL HISTORY: Past Medical History: Diagnosis Date ??? Allergic rhinitis ??? Anxiety ??? Aortic insufficiency due to bicuspid aortic valve ??? Aortic stenosis, moderate ??? Bicuspid aortic valve ??? History of appendectomy ??? Hyperlipidemia ??? Hypertension ??? Subclinical hypothyroidism ??? SVT (supraventricular tachycardia) Appendectomy about 5 years ago. REVIEW OF SYSTEMS: No flowsheet data found. General: [No weight loss, fatigue, anorexia, insomnia, or fever.] Eyes: [No visual loss, double vision, drainage, eye pain, or dry eyes.] ENT: [No sore throat or dry mouth.] Pulmonary: [No cough, or hemoptysis.] Hem/Lymph: [No swollen glands, fever, or bleeding.] GI: [No abdominal pain, change in bowel habits, melena, nausea, vomiting or dysphagia.] : [No urethral discharge, dysuria, frequency, or nocturia.] Musculoskeletal: [No limb pain, joint pain, or joint swelling.] Neuro: [No focal weakness, ataxia, confusion, paresthesias or headache.] Cardiac: See HPI FAMILY HISTORY: Family History Problem Relation Age of Onset ??? Heart Disease Mother ??? Cancer Mother ??? Heart Disease Brother 3 brothers, all with history of [place]; one with valvular disease ??? Heart Disease Maternal Grandfather SOCIAL HISTORY: Social History Tobacco Use ??? Smoking status: Former Smoker ??? Smokeless tobacco: Never Used Substance Use Topics ??? Alcohol use: Yes Comment: 2-3 drinks per day MEDICATIONS: Current Outpatient Medications Medication Sig Dispense Refill ??? ergocalciferol, vitamin D2, (VITAMIN D ORAL) [...] facility-administered medications for this visit. ALLERGIES: Penicillins PHYSICAL EXAMINATION: Vital Signs: BP 123/81 Pulse 69 Ht 166.4 cm (5' 5.5) Wt 62.9 kg (138 lb 9.6 oz) SpO2 99% BMI 22.71 kg/m?? Exam Details: The patient is oriented to person, place, and time, and in no acute distress. The neck is supple. The JVD is 6 cm above the mid right atrium. Normal carotid pulse contour. Transmitted murmur over theneck, but there are no distinct carotid or subclavian bruits. The lungs are resonant to percussion and clear to auscultation. On cardiac examination, the PMI is in the 5th IS at the MCL. The rate is regular. S1 is normal. S2 is single there is no S3 or S4. There a grade 3/6 mid peaking systolic ejection murmur best heard at the right upper sternal border radiating to the neck and also audible along the left sternal border.There is a contiguous and similar quality grade 2/6 midsystolic murmur is present at the apex. There is a grade 1/4 early diastolic decrescendo murmur at the left upper sternal border. Abdominal examination is unremarkable. There are no masses and no hepatomegaly. Extremities are symmetric. There is no peripheral edema. There are 2+ bilateral femoral, popliteal, dp and pt pulses. DATA: Her electrocardiogram today demonstrates sinus rhythm and is within normal limits. Echocardiogram May 10, 2019 performed at [facility] I reviewed the scanned report, summarized as follows: Normal left ventricular size, wall thickness, and systolic function. Left ventricular ejection fraction 60 to 65%. Moderate thickening of aortic valve leaflets. Possible bicuspid aortic valve. Moderate aortic regurgitation. Mean gradient 39 mmHg. Aortic valve area 1.01 cm??. Moderate to severe aortic stenosis. Mild mitral regurgitation. The ascending aorta is not dilated. Compared to the echocardiogram of August 28, 2017, the severity of the aortic stenosis is worsened with a mean aortic valvegradient increasing from 30 to 39 mmHg. I will arrange for her echocardiogram images to be pushed from [facility] to [facility] and reviewed these with1 of the echo faculty after the visit. This review confirmed the findings summarized above, although it is difficult to ascertain whether this was a bicuspid or tricuspid valve. ASSESSMENT: She is a following problems relevant to this visit: 1). Aortic stenosis. Echocardiographic findingsare consistent with progression of her aortic stenosis to the cusp of moderate to severe (SUDHAKAR 1.01 cm??). It is not clear whether the valve is is bicuspid or tricuspid. It is difficult to determine whether there any associated symptoms, though with questioning she seems to acknowledge that she may experience shortness of breath when climbing 1-2 flights of stairs, a symptom that she does not recall from 2 years ago. Taken together, I think a short period of additional surveillance is warranted.I reviewed with her the symptoms that might be attributable to severe aortic stenosis and asked herto get in touch with me should any of these occur. There is been no onset of no symptoms, she will return in 6 months for an office visit and echocardiogram. Worsening severity of aortic stenosis or onset of symptoms would prompt consideration of surgical aortic valve replacement. 2). History of sup raventricular tachycardia. She had 2 recent episodes of palpitations, each lasting approximately 30minutes. I presume this was likely SVT. She will continue diltiazem. 3). Hypertension. Her blood pressure is within acceptable limits. PLAN: RTC and echocardiogram in 6 months. documented in this encounter Plan of Treatment Upcoming Encounters Date Type Department Care Team (Latest Contact Info) Description 12/25/2023 9:[address] [place] [address] Xavier Malhotra MD [facility] [place] [address] 12/29/2023 Hospital Encounter Electrophysiology Lab at [place] [phone] Xavier Malhotra MD [facility] [place] [address] Paroxysmal atrial fibrillation 12/29/2023 7:30 AM EDT - 12/29/2023 12:00 PM EDT Surgery Electrophysiology Lab at [place] [phone] Xavier Malhotra MD [facility] [place] [address] ELECTROPHYSIOLOGY PROCEDURE 01/14/2024 10:40 AM EDT Office Visit Cardiology at [address] [address] Carmen Castaneda PA [facility] [address] Scheduled Procedures Name Priority Associated Diagnoses Date/Ti me TRANSESOPHAGEAL ECHO DURING CATH/EP PROCEDURE Paroxysmal atrial fibrillation 12/29/2023 7:30 AM EDT documented as of this encounter Procedures Procedure Name Priority Date/Time Associated Diagnosis Comments EKG 12-LEAD Routine 05/18/2019 8:14 AM EST SVT (supraventricular tachycardia) Chest pain, unspecified type documented in this encounter Results * ECHO COMPLETE (02/01/2020 10:17 AM EDT) EF 75 [employer] SYSTEM Anatomical Region Laterality Modality Other 02/01/2020 Narrative 02/01/2020 10:58 AM EDT Procedure: ?Transthoracic Echocardiogram Patient: ?BERTOLINI GABI J ? (Age): 1960(59y) Med Rec#: ? [id number] ?Sex: ?F ? Site Loc: ? [facility] ?Ht / Wt: ??164(cm)/54(kg) Pt. Loc: ?Echo Lab ?BSA: ?1.58 Study Date: ?? 02/01/2020 ?Pt. Type: Outpatient Tape: ? Referring: Franklyn Toure ([id number]) Reading: Gabe Mancera ([id number]) Speech/Language Therapist: Guanaco Rodriguez Diagnosis: *Nonrheumatic aortic (valve) stenosis [...] ? Mid-Inferior ?Normal ? Mid-Inferoseptal ?Normal ? [place]-Septal ? Normal ? [place]-Anterior ? Normal ? [place]-Lateral ?Normal ? [place]-Inferior ? Normal ? [place]-Tip ?Normal ? This report has been electronically signed by: Gabe Mancera MD ? 02/01/2020 10:57:04 Images reviewed and interpretation verified [facility] Procedure Note Gabe Mancera MD - 02/01/2020 Procedure: Transthoracic Echocardiogram Patient: SRIDHAR SILVA(Age): 1960(59y) Med Rec#: [id number] Sex: F Site Loc: [facility] Ht / Wt: 164(cm)/54(kg) Pt. Loc: Echo Lab BSA: 1.58 Study Date: 02/01/2020 Pt. Type: Outpatient Tape: Referring: Franklyn Toure ([id number]) Reading: Gabe Mancera ([id number]) Speech/Language Therapist: Guanaco Rodriguez Diagnosis: *Nonrheumatic aortic (valve) stenosis [...] 86.35 ml SV LVOT Index 59 ml/m2 SDUHAKAR (continuity Vmax1.34 cm2 SUDHAKAR (continuity Vmax0.88 cm2/m2 [...] Normal Mid-Posterolateral Normal Mid-Inferior Normal Mid-Inferoseptal Normal [place]-Septal Normal [place]-Anterior Normal [place]-Lateral Normal [place]-Inferior Normal [place]-Tip Normal This report has been electronically signed by: Gabe Mancera MD 02/01/2020 10:57:04 Images reviewed and interpretation verified [facility] Franklyn Toure MD ECHO ORDERABLES * EKG 12 Lead (05/18/2019 8:14 AM EST) Ventricular rate 63 BPM MUSE SYSTEM Atrial Rate 63 BPM MUSE SYSTEM P-R Interval 124 ms MUSE SYSTEM QRS Duration 92 ms MUSE SYSTEM Q-T Interval 422 ms MUSE SYSTEM QTC Calculated (Bezet) 431 ms MUSE SYSTEM Calculated P [place] 31 degrees MUSE SYSTEM Calculated R [place] 42 degrees MUSE SYSTEM Calculated T [place] 29 degrees MUSE SYSTEM INTERPRETATION Normal sinus rhythm Normal ECG When compared with ECG of 17-APR-2018 12:27, No significant change was found Confirmed by MD JARED, DANIEL ([id number]) on 05/18/2019 4:23:00 PM MUSE SYSTEM 05/18/2019 8:14 AM EST 05/18/2019 4:23 PM EST Franklyn Toure MD ECG ORDERABLES MUSE SYSTEM documented in this encounter Visit Diagnoses Diagnosis SVT (supraventricular tachycardia) Other specified cardiac dysrhythmias Chest pain, unspecified type Nonrheumatic aortic valve stenosis Aortic valve disorders Bicuspid aortic valve Congenital insufficiency of aortic valve Nonrheumatic aortic valve stenosis Aortic valve disorders Paroxysmal atrial fibrillation Atrial fibrillation Paroxysmal atrial fibrillation Atrial fibrillation documented in this encounter Care Teams Dairy Processing Supervisor Relationship Specialty Start Date End Date Evelyne Hunt, BRASS BOBBIN WINDER [address] [place] [address] PCP - General Internal Medicine 09/23/17 documented as of this encounter
--- OUTSIDE RECORDS SUMMARY | 2023-12-01 02:19 | XMS_ITS | Encounter Summary ---
Author Organization [facility] Address [address] [place] [address] Care Team Providers Care Integrity Manager Name Role Phone Marilee, Evelyne Daugherty CORPORATE VP ADVERTISING & ONLINE Primary Care Provider [phone] Encounter Details Date Type Department Care Team (Late st Contact Info) Description 02/05/2021 Lab Requisition [facility] Pathology & [facility] [address], [place] [address] Outr Resulting Lab, Provider Social History Tobacco Use Types Packs/Day Years Used Date Smoking Tobacco: Never Assessed Interpersonal Safety Answer Date Record ed Physically Hurt Never 11/21/2019 Verbally Threaten Not on file 11/21/2019 Sex and Gender Information Value Date Recorded Sex Assigned at Not on file Gender Identity Female 08/19/2019 15:16 EDT Sexual Orientation Not on file documented as of this encounter Plan of Treatment Not on file documented as of this encounter Procedures Procedure Name Priority Date/Time Associated Diagnosis Comments FECAL BACTERIAL PATHOGENS BY PCR Routine 02/05/2021 12:00 EDT documented in this encounter Results * FECAL BACTERIAL PATHOGENS BY PCR (02/05/2021 12:00 EDT) Salmonella PCR Negative Negative 02/06/2021 11:50 EDT [facility] Shigella/Enteroin vasive E. coli Negative Negative 02/06/2021 11:50 EDT [facility] HN LAB CAMPYLOBACTER PCR Negative Negative 02/06/2021 11:50 EDT [facility] Shiga Toxin PCR Negative Negative 11:50 EDT [facility] Feces SPECIMEN FROM RECTUM / Unknown 02/05/2021 12:00 EDT 02/05/2021 21:18 EDT Provider Outr Resulting Lab MICROBIOLOGY - GENERAL ORDERABLES Performing Organization Address City/State/[facility] Co de Phone Number [facility] [address] [place] [address] documented in this encounter Visit Diagnoses Not on filedocumented in this encounter Care Teams Integrity Manager Relationship Specialty Start Date End Date Evelyne Hunt NP [address] [place] [address] PCP - General 08/19/19 documented as of this encounter
--- OUTSIDE RECORDS SUMMARY | 2023-12-01 02:19 | XMS_ITS | Clinical Summary ---
Author Organization [facility] Address [address] [place] [address] Care Team Providers Care Helix Coil Winder Name Role Phone MarileeKikiEvelyne A PRODUCTION TEAM MEMBER Primary Care Provider [phone] Active Problems Patient Care Coordination No te [...] Orientation Not on file Plan of Treatment Health Maintenance Due Date Last Done Comments Hepatitis C Screen 1960 RSV Immunization ( o r 60+ Years) (1 - 1-dose 60+ series) 2020 COVID-19 Vaccine (2022-24 season) 2022 Care Teams Helix Coil Winder Relationship Specialty Start Date End Date Evelyne Hunt NP [address] [place] [id number] PCP - General 08/19/19
--- OUTSIDE RECORDS SUMMARY | 2023-12-01 02:19 | XMS_ITS | Encounter Summary ---
Author Organization Formerly [facility] Address [facility] Bert cassidy [place] [id number] Care Team Providers Care Senior Sas Programmer Name Role Phone Evelyne Hunt APRN Primary Care Provider [phone] Reason for Referral * Diagnostic Test (Routine) - Closed Specialty Diagnoses / Procedures Referred By Contac t Referred To Contact Diagnoses Aortic valve disorder Procedures Echocardiogram Stress (Treadmill) Jourdan Jensen MD [facility] [address] [facility] [place] [address] Referral ID Status Reason Start Date Expiration Date V isits Requested Visits Authorized [id number] Closed Specialty Service Requested 09/22/2017 11/20/2017 1 1 Encounter Details Date Type Department Care Team (Late st Contact Info) Description 09/17/2017 2:00 PM EDT Office Visit Cardiology at [address] [phone] Mason Trujillo II, MD [facility] [place] [address] SVT (supraventricular tachycardia); Aortic valve disorder Social History Tobacco Use Types Packs/Day Years Used Date Smoking Tobacco: Never Smokeless Tobacco: Never Sex and Gender Information Value Date Recorded Sex Assigned at Not on file Gender Identity Not on file Sexual Orientation Not on file documented as of this encounter Last Filed Vital Signs Vital Sign Reading Time Taken Comments Blood Pressure 141/76 09/17/2017 2:11 PM EDT Pulse 78 09/17/2017 2:11 PM EDT Temperature - - Respiratory Rate - - Oxygen Saturation 98% 09/17/2017 2:11 PM EDT Inhaled Oxygen Concentration - - Weight 59.9 kg (132 lb) 09/17/2017 2:11 PM EDT Height 166.4 cm (5' 5.5) 09/17/2017 2:11 PM EDT Body Mass Index 21.63 09/17/2017 2:11 PM EDT documented in this encounter Progress Notes * Jourdan Jensen - 09/17/2017 2:00 PM [place] [address] CARDIOLOGY OUTPATIENT NEW PATIENT NOTE PRIMARY CARE PROVIDER: Hanna Montes De Oca APRN PROBLEM LIST: Patient Active Problem List Diagnosis ??? SVT (supraventricular tachycardia) ??? Aortic valve disorder ??? Hypothyroidism ??? H/O: x2 MEDICATIONS: Current Outpatient Prescriptions Medication Sig Dispense Refill ??? dilTIAZem (DILTIAZEM CD) 120 mg Capsule, Sust. Release 24 hr Take 120 mg by mouth daily. ??? dilTIAZem (CARDIZEM) 30 mg Tablet Take 30 mg by mouth 2 times daily. ??? atorvastatin (LIPITOR) 10 mg Tablet Take 10 mg by mouth daily. ??? hydroCHLOROthiazide (HYDRODIURIL) 25 mg Tablet Take 25 mg by mouth daily. ??? buPROPion (WELLBUTRIN XL) 150 mg 24 hr tablet Take 300 mg by mouth every morning. ??? fish oil-omega-3 fatty acids 1,000 mg capsule Take 2 g by mouth daily. ??? loratadine (CLARITIN) 10 mg tablet Take 10 mg by mouth daily. No current facility-administered medications for this visit. Subjective: Patient ID: Gabi Luna is a 56 y.o. female. HPI: 56 F presents for new onset SVT and discovery of MAVD. Patient was in her US[place] until about 1.5 months ago, when she visited [place], [place] on vacation. One morning there, she noted palpitations that were not necessarily atypical to that which she has had in the past. However, with becoming as calm as possible (which typically breaks it), there was continued palpitations. They lasted for much longer than usual, and she developed the new associated symptom of presyncope. She then called EMS, which brought her to the hospital. During the EMS, she notes that they said her HR was in the 250s, and they gave her a medication that was not adenosine that slowed down the HR somewhat. In the ED, the reported SVT broke via her own mechanism. She has never trialed vagal maneuvers. She has never syncopized. A Preventice device was placed, which she endorses having a couple minor episodes of palpitations during that interim. She is to send it in today. She has had palpitations for a long time, and on average they occur about once a month. She was started on metoprolol at the ED, but this led to fatigue and continued palpitations, so shewas switched to diltiazem, which at a TDD of 180mg seems to have had a good effect. During the evaluation of palpitations, she had an echocardiogram which demonstrated a bicuspid aortic valve with severe stenosis (as reported below). She is typically very active, able to ski, bike, hike, etc without issue. She also takes about 3 flights of stairs at work without issue. However, she has noted that perhaps since winter she becomes fatigued much easier, and is limited to NYHA II activity level. She sometimes now takes the elevator at work, and is lags behind her exercise group.She has not had exertional angina nor presyncope/syncope. Denies orthopnea/pnd ROS: 11 point ros either negative or per hpi Family history: No family history on file. Social history: Social History Substance Use Topics ??? Smoking status: Never Smoker ??? Smokeless tobacco: Never Used ??? Alcohol use None Objective: Most Recent Vitals: 09/17/17 1411 BP: 141/76 Pulse: 78 SpO2: 98% Gen: pleasant female in NAD Cor: rrr, s1/s2 of nl character and amplitude, harsh II/ mid-peaking C-D at base, I/IV holodiastolic murmur at base, pulses timely and full. jvp not elevated Pulm: CTAB Ab: soft, nt, nd, nabs throughout Ext: no c/c/e. Dp/pt ++ Neuro: without focal deficit EKG: NSR without infarct/ischemia [facility] echo 08/2017 - LVEF 65-70 with normal cavity size and wall thickness - Aortic valve is bicuspid. SUDHAKAR 0.8, DOI 0.25, grads 57/30 mmHg. Moderate AI Assessment and Plan: # SVT: Per report. At this time, the palpitations seem under control. Will convert diltiazem to a single XR pill with IR tablets PRN. Low threshold for referral to EP for consideration of ablation - Change diltiazem to 180mg XR QD + 30mg IR PRN - Attempt to gather telemetry from [facility] - Follow-up Preventice device - Reiterated various vagal abortive maneuvers # Aortic valve disease: Because of the bicuspid status, the patient would require a surgical approach. Although she has symptoms of relative exertional intolerance that could be a result of the aortic stenosis, it is not disabling at this time. Reassuringly, her LV and Aortic dimensions remain normal. Will evaluate exertional capacity with exercise echocardiogram - exercise echocardiogram. RTC 3 months Jourdan Jensen MD Cardiology Staff Addendum Gabi Luna is seen in conjunction with Dr. Jourdan Jensen. Please refer to his note for a full discussion of the chief complaint, history of present illness, past medical history, current medications, current physical examination, evaluation and recommendations. I am meeting the patient with Dr. Chavez's for the first time. She is self- referred for cardiac evaluation because of a recent episode of supraventricular tachycardia as well as a recent diagnosis of aortic stenosis/aortic regurgitation. She has a long history of occasional palpitations bothering her about 1 time per month. About 6 weeks ago while visiting [place] she presented to a hospital in [place] with a prolonged episode of palpitations resulting in presyncope. Per her report her heart rate was 256 bpm she was given medication and her heart rate slowed and ultimately broke to normal sinus rhythm. She is not sure what they gave her. She was discharged on metoprolol but was unable to tolerate it. She followed up with Dr. Reji Garrido in [place]. He discontinued the metoprolol and started her on diltiazem 120 mg sustained release. She had a recurrent episode of SVT on September 05 and was advised in the emergency room to take an additional 30 mg of diltiazem twice a day. On this regimen her palpitations seem to have resolved. She is currently wearing a Ziopatch. An echocardiogram was also ordered by her scrap iron cutter. That study showed a bicuspid aortic valve with an area of 0.8 cm?? and a mean gradient of 30 mmHg. Her ejection fraction was normal and there was moderate aortic regurgitation. In retrospect she believes she has [place] [employer] functional class II exertional fatigue. She denies any syncope or chest discomfort. The remainder of herreview of systems is negative. On physical exam: Heart rate 78, blood pressure 141/76. There is a midsystolic murmur, I do not hear a diastolic murmur. Her lung rodríguez are clear. The remainder of the exam is unremarkable as per Dr. Chavez's. Electrocardiogram: Normal sinus rhythm, heart rate 67, incomplete right bundle branch block. Assessment: 56-year-old female who presents in follow-up after an episode of supraventricular tachycardia. At present the arrhythmia seems to be adequately controlled on about 180 mg of diltiazem perday. In order to simplify her medications I think she should be put on diltiazem 180 mg sustained-release, and take additional short acting diltiazem only for breakthrough arrhythmia. Her echocardiogram shows moderate to severe mixed aortic valve disease with a bicuspid aortic valve. I agree she isunlikely to be a candidate for TAVR. Although she believes she has significant symptoms she actually is only minimally affected and is still able to be quite active. I think an echo stress test wouldhelp us understand her limitation better. It would also give us a view of her resting aortic valve and the severity of her /AR. Plan 1. Change diltiazem to 180 mg sustained release per day with 30 mg short acting diltiazem as needed 2. Have cautioned her about involving herself in strenuous, competitive exertion. Have advised thatshe back off of exercise should she feel uncomfortable. 3. Will arrange exercise stress echocardiogram 4. We will await the results of the Ziopatch she is wearing 5. We will try and obtain the discharge summary from her episode of care in [place] in order to more clearly understand her arrhythmia. 6. Return to this clinic in 8 weeks. 7. Otherwise as per Dr. Braswells. Mason Trujillo MD documented in this encounter Plan of Treatment Upcoming Encounters Date Type Department Care Team (Latest Contact Info) Description 12/25/2023 9:[address] [place] [phone] Xavier Malhotra MD [facility] [place] [address] 12/29/2023 Hospital Encounter [place] [phone] Xavier Malhotra MD [facility] [place] [address] Paroxysmal atrial fibrillation 12/29/2023 7:30 AM EDT - 12/29/2023 12:00 PM EDT Surgery Electrophysiology Lab at [place] [phone] Xavier Malhotra MD [facility] [place] [address] ELECTROPHYSIOLOGY PROCEDURE 01/14/2024 10:40 AM EDT Office Visit Cardiology at [address] [phone] Carmen Castaneda PA [facility] [place] [address] Scheduled Procedures Name Priority Associated Diagnoses Date/Ti me TRANSESOPHAGEAL ECHO DURING CATH/EP PROCEDURE Paroxysmal atrial fibrillation 12/29/2023 7:30 AM EDT documented as of this encounter Procedures Procedure Name Priority Date/Time Associated Diagnosis Comments EKG 12-LEAD Routine 09/17/2017 2:29 PM EDT SVT (supraventricular tachycardia) Aortic valve disorder documented in this encounter Results * STRESS ECHO W LMTD SPEC DOPP COLOR DOPP (09/26/2017 12:32 PM EDT) EF 70 HEARTLAB SYSTEM Anatomical Region Laterality Modality Other 09/26/2017 Narrative 09/26/2017 1:13 PM EDT Procedure: ?Stress Echocardiogram Patient: ?SRIDHAR Velázquez ? (Age): 1960(56y) Med Rec#: ? [id number] ?Sex: ?F ? Site Loc: ? [facility] ?Ht / Wt: ??166(cm)/60(kg) Pt. Loc: ?Echo Lab ?BSA: ?1.67 Study Date: ?? 09/26/2017 ?Pt. Type: Tape: ? Referring: TANIYA JENSEN ([id number]) Referring: AVNI Reading: Zan Gillespie ([id number]) Grainer Machine: Mercedes He Grainer Machine: Sahra Peralta Registered Client Associate: Adelia Isaac Diagnosis: *ICD-10-PCS Nonrheumatic aortic valve disorder, unspecified (I35.9) Stage ? BP ?HR ? Rest ?126/82 ?82 ? Peak ?168/96 ?144 ? Recovery ?146/94 ?91 ? SUMMARY: 1. BASELINE: ??There is normal global left ventricular systolic function. Ejection fraction is estimated to be 70%. There are no left ventricular segmental wall motion abnormalities. Right ventricular global systolic function is normal. The aortic valve appears bicuspid or functionally bicuspid. The aortic valve leaflets are mildly thickened. Systolic excursion of the aortic valve cusps is reduced. The peak instantaneous/ mean ??trans-valvular gradient across ??the aortic valve is 46 mmHg/ 24 mmHg. 2. The calculated aortic valve area is 1.28 cm2 with a SVI= 58.9 ml/m2, and a DOI=0.38. There is moderate aortic valve stenosis. Mild to moderate (1-2+/4+) aortic valve regurgitation is present. The calculated pressure half-time is 332 msec. There is mild (1+/4+) mitral regurgitation present. 3. EKG: normal sinus rhythm. The patient's oxygen saturation was 98% 4. STRESS: ?? Patient followed a Stoney protocol, ??exercised into stage 4, and the ??total exercise duration was:9:30 mins. The patient achieved a level of 11 METS, attaining peak CY=373 bpm, (94 % MPHR), and ritesh BP= 168/96 mmHg for a DP=26.0K. ??The patient did not express feelings of chest discomfort. he patient experienced shortness of breath. 4/10 shortness of breath at peak exercise. here were frequent atrial premature contractions. A brief run of SVT (5 beats) and rare premature ventricular contractions noted. ??All seo increased in contractile thickening with no segmental wall motion abnormalities. ??EF increased from 70% to 80%. 5. IMPRESSION: ??Moderate aortic valve stenosis. ??Good exercise tolerance, with normal BP response, and no symptoms, EKG changes, or imaging evidence for ischemia in response to an adequate stress and workload (Intracavitary pressure would be higher than measured blood pressure). Findings Rest: Left Ventricle: ? The left ventricle is probably normal in size. ?There is normal global left ventricular systolic function. ??Ejection fraction is estimated to be 70%. ?There are no left ventricular segmental wall motion abnormalities. Right Ventricle: ? Right ventricular global systolic function is normal. ?The estimated pulmonary artery systolic pressure is 17 mmHg.Plus RAP Aortic Valve: ? The aortic valve appears bicuspid. ?The aortic valve leaflets are mildly thickened. ?Systolic excursion of the aortic valve cusps is reduced. ?There is aortic annular calcification. ?The peak instantaneous trans-valvular gradient across ??the aortic valve is 46 mmHg. ?The mean trans-valvular gradient across ??the aortic valve is 24 mmHg. ?The calculated aortic valve area is 1.28 cm2. ?There is moderate aortic valve stenosis. ?The calculated pressure half-time is 332 msec. ?Mild to moderate (1-2+/4+) aortic valve regurgitation is present. Mitral Valve: ? The mitral valve leaflets do not appear thickened. ?There is no evidence of mitral stenosis. ?There is mild (1+/4+) mitral regurgitation present. ?Systolic anterior motion of the mitral valve chordae is present. Tricuspid Valve: ? The tricuspid valve appears normal in structure and function. ?There is trace tricuspid regurgitation present. Pericardium: ? The pericardium appears normal and there is no evidence of a pericardial effusion. Stress: ? EKG: normal sinus rhythm. ?The patient's oxygen saturation was 98% ?The patient is taking a lipid lowering agent. ?The patient is taking a calcium channel jessa. ??(Pt did not hold 24 hours). ?The patient is taking a diuretic. Misc: ? Other echo and stress findings as noted in report. ?Stress echo, limited spectral Doppler, color Doppler and ECG interpretation performed. Findings Peak: Predicted Values:The patient achieved a maximum heart rate of 144 which is 88% of the maximum predicted heart rate (164 beats/min). ??The target heart rate was achieved. Left Ventricle: ? Global left ventricular systolic function appears hyperdynamic. ?There are no left ventricular segmental wall motion abnormalities. Stress: ? Patient followed a Stoney protocol. ?The patient exercised into stage 4. ?The total exercise duration was:9:30 mins ?The study was terminated because of fatigue. ?The patient did not express feelings of chest discomfort. ?The patient experienced shortness of breath. 4/10 shortness of breath at peak exercise. ?The blood pressure response was normal. ?Exercise capacity was excellent. ?The patient achieved a level of 11 METS. ?There were frequent atrial premature contractions. ?There were atrial couplets. ?There was ST segment depression noted. ?This was an equivocal electrocardiographic stress test. ?This was a negative echocardiographic stress test. ?EKG: sinus tachycardia. ?The patient's oxygen saturation was 97%. Findings Recovery: Stress: ? EKG: normal sinus rhythm. ?EKG: Premature atrial contractions noted. ?EKG: Premature ventricular contractions noted. ?EKG: SVTBrief run of SVT (5 beats). Chambers 2D ?Value ?Units (Range) ? Ao root diameter (2D3.4 ?cm (2.1 - 3.6) ? Ascending Ao ?3.3 ?cm (2 - 3.5) ? Diastolic/Systolic Function ?Value ?Units (Range) ? MV E-wave Vmax ?0.8 ?m/sec ? MV deceleration nctw504.8 ?msec ? MV A-wave Vmax ?0.6 ?m/sec ? MV E:A ratio ?1.4 ?ratio ? Aortic Valve ?Value ?Units (Range) ? AV Vmax ? 3.4 ?m/sec ? AV VTI ?66.5 ? cm ? AV peak gradient ?46 ? mmHg ? AV mean gradient ?24 ? mmHg ? LVOT diameter ? 2.2 ?cm ? LVOT Vmax ? 1.1 ?m/sec ? LVOT VTI ?25.4 ? cm ? LVOT peak gradient ??5.1 ?mmHg ? LVOT mean gradient ??3.1 ?mmHg ? DOI (VTI) ? 0.4 ?ratio ? DOI (Vmax) ?0.3 ?ratio ? SV LVOT ? 98.2 ? ml ? CO LVOT ? 8.1 ?l/min ? Cardiac index ? 4.8 ?l/min/m2 ? SUDHAKAR (continuity Vmax1.3 ?cm2 ? SUDHAKAR (continuity Vmax0.8 ?cm2/m2 ? SUDHAKAR (continuity VTI)1.5 ?cm ? SUDHAKAR (continuity VTI)0.9 ?cm2/m2 ? AR PHT ?332 ?msec ? AR peak gradient ?102.9 ?mmHg ? Tricuspid Valve ?Value ?Units (Range) ? TR Vmax ? 2 ?m/sec ? TR peak gradient ?16.6 ? mmHg ? RVSP ?17 ? mmHg ? Wall Motion: Segment Name ?Rest ? Base-Anteroseptal ?? Normal ? Base-Anterior ? Normal ? Base-Anterolateral ??Normal ? Base-Posterolateral Normal ? Base-Inferior ? Normal ? Base-Inferoseptal ?? Normal ? Mid-Anteroseptal ?Normal ? Mid-Anterior ?Normal ? Mid-Anterolateral ?? Normal ? Mid-Posterolateral ??Normal ? Mid-Inferior ?Normal ? Mid-Inferoseptal ?Normal ? Chicken-Septal ? Normal ? Chicken-Anterior ? Normal ? Chicken-Lateral ?Normal ? Chicken-Inferior ? Normal ? Chicken-Tip ?Normal ? This report has been electronically signed by: Zan Sharma. MD Jose Miguel ? 09/26/2017 13:12:40 Images reviewed and interpretation verified [facility] Procedure Note Zan Gillespie MD - 09/26/2017 Procedure: Stress Echocardiogram Patient: SRIDHAR Velázquez DOB(Age): 1960(56y) Med Rec#: [id number] Sex: F Site Loc: [facility] Ht / Wt: 166(cm)/60(kg) Pt. Loc: Echo Lab BSA: 1.67 Study Date: 09/26/2017 Pt. Type: Tape: Referring: TANIYA JENSEN ([id number]) Referring: AVNI Reading: Zan Gillespie ([id number]) Grainer Machine: Mercedes He Grainer Machine: Sahra Peralta Registered Client Associate: Adelia Isaac Diagnosis: *ICD-10-PCS Nonrheumatic aortic valve disorder, unspecified (I35.9) Stage BP HR Rest 126/82 82 Peak 168/96 144 Recovery 146/94 91 SUMMARY: 1. BASELINE: There is normal global left ventricular systolic function. Ejection fraction is estimated to be 70%. There are no left ventricular segmental wall motion abnormalities. Right ventricular global systolic function is normal. The aortic valve appears bicuspid or functionally bicuspid. The aortic valve leaflets are mildly thickened. Systolic excursion of the aortic valve cusps is reduced. The peak instantaneous/ mean trans-valvular gradient across the aortic valve is 46 mmHg/ 24 mmHg. 2. The calculated aortic valve area is 1.28 cm2 with a SVI= 58.9 ml/m2, and a DOI=0.38. There is moderate aortic valve stenosis. Mild to moderate (1-2+/4+) aortic valve regurgitation is present. The calculated pressure half-time is 332 msec. There is mild (1+/4+) mitral regurgitation present. 3. EKG: normal sinus rhythm. The patient's oxygen saturation was 98% 4. STRESS: Patient followed a Stoney protocol, exercised into stage 4, and the total exercise duration was:9:30 mins. The patient achieved a level of 11 METS, attaining peak MO=776 bpm, (94 % MPHR), and ritesh BP= 168/96 mmHg for a DP=26.0K. The patient did not express feelings of chest discomfort. he patient experienced shortness of breath. 4/10 shortness of breath at peak exercise. here were frequent atrial premature contractions. A brief run of SVT (5 beats) and rare premature ventricular contractions noted. All seo increased in contractile thickening with no segmental wall motion abnormalities. EF increased from 70% to 80%. 5. IMPRESSION: Moderate aortic valve stenosis. Good exercise tolerance, with normal BP response, and no symptoms, EKG changes, or imaging evidence for ischemia in response to an adequate stress and workload (Intracavitary pressure would be higher than measured blood pressure). Findings Rest: Left Ventricle: The left ventricle is probably normal in size. There is normal global left ventricular systolic function. Ejection fraction is estimated to be 70%. There are no left ventricular segmental wall motion abnormalities. Right Ventricle: Right ventricular global systolic function is normal. The estimated pulmonary artery systolic pressure is 17 mmHg.Plus RAP Aortic Valve: The aortic valve appears bicuspid. The aortic valve leaflets are mildly thickened. Systolic excursion of the aortic valve cusps is reduced. There is aortic annular calcification. The peak instantaneous trans-valvular gradient across the aortic valve is 46 mmHg. The mean trans-valvular gradient across the aortic valve is 24 mmHg. The calculated aortic valve area is 1.28 cm2. There is moderate aortic valve stenosis. The calculated pressure half-time is 332 msec. Mild to moderate (1-2+/4+) aortic valve regurgitation is present. Mitral Valve: The mitral valve leaflets do not appear thickened. There is no evidence of mitral stenosis. There is mild (1+/4+) mitral regurgitation present. Systolic anterior motion of the mitral valve chordae is present. Tricuspid Valve: The tricuspid valve appears normal in structure and function. There is trace tricuspid regurgitation present. Pericardium: The pericardium appears normal and there is no evidence of a pericardial effusion. Stress: EKG: normal sinus rhythm. The patient's oxygen saturation was 98% The patient is taking a lipid lowering agent. The patient is taking a calcium channel jessa. (Pt did not hold 24 hours). The patient is taking a diuretic. Misc: Other echo and stress findings as noted in report. Stress echo, limited spectral Doppler, color Doppler and ECG interpretation performed. Findings Peak: Predicted Values:The patient achieved a maximum heart rate of 144 which is 88% of the maximum predicted heart rate (164 beats/min). The target heart rate was achieved. Left Ventricle: Global left ventricular systolic function appears hyperdynamic. There are no left ventricular segmental wall motion abnormalities. Stress: Patient followed a Stoney protocol. The patient exercised into stage 4. The total exercise duration was:9:30 mins The study was terminated because of fatigue. The patient did not express feelings of chest discomfort. The patient experienced shortness of breath. 4/10 shortness of breath at peak exercise. The blood pressure response was normal. Exercise capacity was excellent. The patient achieved a level of 11 METS. There were frequent atrial premature contractions. There were atrial couplets. There was ST segment depression noted. This was an equivocal electrocardiographic stress test. This was a negative echocardiographic stress test. EKG: sinus tachycardia. The patient's oxygen saturation was 97%. Findings Recovery: Stress: EKG: normal sinus rhythm. EKG: Premature atrial contractions noted. EKG: Premature ventricular contractions noted. EKG: SVTBrief run of SVT (5 beats). Chambers 2D Value Units (Range) Ao root diameter (2D3.4 cm (2.1 - 3.6) Ascending Ao 3.3 cm (2 - 3.5) Diastolic/Systolic Function Value Units (Range) MV E-wave Vmax 0.8 m/sec MV deceleration [id number] msec MV A-wave Vmax 0.6 m/sec MV E:A ratio 1.4 ratio Aortic Valve Value Units (Range) AV Vmax 3.4 m/sec AV VTI 66.5 cm AV peak gradient 46 mmHg AV mean gradient 24 mmHg LVOT diameter 2.2 cm LVOT Vmax 1.1 m/sec LVOT VTI 25.4 cm LVOT peak gradient 5.1 mmHg LVOT mean gradient 3.1 mmHg DOI (VTI) 0.4 ratio DOI (Vmax) 0.3 ratio SV LVOT 98.2 ml CO LVOT 8.1 l/min Cardiac index 4.8 l/min/m2 SUDHAKAR (continuity Vmax1.3 cm2 SUDHAKAR (continuity Vmax0.8 cm2/m2 SUDHAKAR (continuity VTI)1.5 cm SUDHAKAR (continuity VTI)0.9 cm2/m2 AR PHT 332 msec AR peak gradient 102.9 mmHg Tricuspid Valve Value Units (Range) TR Vmax 2 m/sec TR peak gradient 16.6 mmHg RVSP 17 mmHg Wall Motion: Segment Name Rest Base-Anteroseptal Normal Base-Anterior Normal Base-Anterolateral Normal Base-Posterolateral Normal Base-Inferior Normal Base-Inferoseptal Normal Mid-Anteroseptal Normal Mid-Anterior Normal Mid-Anterolateral Normal Mid-Posterolateral Normal Mid-Inferior Normal Mid-Inferoseptal Normal Chicken-Septal Normal Chicken-Anterior Normal Chicken-Lateral Normal Chicken-Inferior Normal Chicken-Tip Normal This report has been electronically signed by: Zan Gillespie MD 09/26/2017 13:12:40 Images reviewed and interpretation verified [facility] Mason Trujillo II, MD ECHO ORDERABLES * EKG 12 Lead (09/17/2017 2:29 PM EDT) Ventricular rate 67 BPM MUSE SYSTEM Atrial Rate 67 BPM MUSE SYSTEM P-R Interval 126 ms MUSE SYSTEM QRS Duration 96 ms MUSE SYSTEM Q-T Interval 416 ms MUSE SYSTEM QTC Calculated (Bezet) 439 ms MUSE SYSTEM Calculated P Watchung 66 degrees MUSE SYSTEM Calculated R Watchung 38 degrees MUSE SYSTEM Calculated T Watchung 20 degrees MUSE SYSTEM INTERPRETATION Normal sinus rhythm Incomplete right bundle branch block Borderline ECG No previous ECGs available Confirmed by MD Erin, Favio ([id number]) on 09/17/2017 3:50:35 PM MUSE SYSTEM 09/17/2017 2:29 PM EDT 09/17/2017 3:50 PM EDT Mason Trujillo II, MD ECG ORDERABLES MUSE SYSTEM documented in this encounter Visit Diagnoses Diagnosis SVT (supraventricular tachycardia) Other specified cardiac dysrhythmias Aortic valve disorder Aortic valve disorders Aortic valve disorder Aortic valve disorders Paroxysmal atrial fibrillation Atrial fibrillation Paroxysmal atrial fibrillation Atrial fibrillation documented in this encounter Care Teams Senior Sas Programmer Relationship Specialty Start Date End Date Evelyne Hunt APRN [address] [place] [address] PCP - General Internal Medicine 09/23/17 documented as of this encounter
--- OUTSIDE RECORDS SUMMARY | 2023-12-01 02:19 | XMS_ITS | Encounter Summary ---
Author Organization [facility] Address [facility] [place] [address] Care Team Providers Care Allergy And Immunology Specialist Name Role Phone MarileeEvelyne APRN Primary Care Provider [phone] Reason for Visit * Auth/Cert Specialty Diagnoses / Procedures Referred By Contac t Referred To Contact Diagnoses PELVIC MASS Procedures PRO GINA SALP-OOPH W/OMENTECT, FREDI, RAD DISSECT @HYSTERECTOMY, FREDI, BSO, DEBULKING (WRVU 34.13) Referral ID Status Reason Start Date Expiration Date Visits Re quested Visits Authorized [id number] 1 1 Encounter Details Date Type Department Care Team (Late st Contact Info) Description 07/20/2019 7:37 AM EDT Anesthesia Event [place] [address] Aldo Kim MD [facility] [place] [address] Jess Suarez APRN [address] [facility] [place] [address]-1 [place] [address] Anesthesia Record Procedure Summary Procedure Name Responsible Anesthesiologist Anesthesia Start Time Anesthesia Stop Time @HYSTERECTOMY, FREDI, BSO, DEBULKING (WRVU 34.13) (Abdomen) Aldo Kim MD 07/20/19 0737 07/20/19 1211 Events Date Time Event Comment 07/20/2019 0710 0737 AN Verify 0737 Start 0737 An Start Data 0748 An Induction 0751 An Intubation 0815 Anesthesia Ready 0907 Break/Relief In I assumed ca re for Break Relief before which we: 1. Identified the patient 2. Identified the responsible provider(s) 3. Reviewed the pertinent medical history 4. Discussed the surgical plan and course 5. Reviewed intra-op anesthesia management and issues during anesthesia 6. Set expectations for the relief (and/or post-procedure) period 7. Allowed opportunity for questions and acknowledgement of understanding LORAINE GASTON CRNA 0926 Break/Relief Out 1206 Extubation/LMA Out 1210 an stop data 1210 Recovery or ICU Handoff Lorena ent care was transferred to the destination unit staff after review of the patient's medical history, current anesthetic/surgical status and plan, according to the Provider Handoff Checklist. 1211 Stop Meds Name Total Midazolam 2 mg fentaNYL 100 mcg Propofol 200 mg Rocuronium 160 mg PHENYLephrine 160 mcg Ondansetron 8 mg Dexamethasone 4 mg BUpivacaine 0.25% 50 mL levoFLOXacin (LEVAQUIN) 500 mg in dextro se 5% 100 mL 500 mg metroNIDAZOLE (FLAGYL) 500 mg in sodium chloride 0.9% 100 mL 500 mg PHENYLephrine INF 4,560 mcg Dexmedetomidine 20 mcg Sugammadex 200 mg HYDROmorphone 0.6 mg lactated ringers infusion 2,700 mL Albumin (human) 5% 500 mL * Agents Name O2 Air N2O Sevoflurane (et) * Blood No blood administrations on file. Lines, Drains, and Airways Type Details Placement Removal (RETIRED) Peripheral IV Line - Single Lumen 07/20/19; 0713; cephalic vein (lateral side of arm), left; [id number] catheter system; 20 gauge, 1 in length; Antionette Simmons RN; distraction, intradermal injection, tolerated well, appears comfortable; 0; removed per policy/procedure, catheter/device intact; 07/24/19; 1055 07/20/19 0713 by Jody Gandara, RN 07/24/19 1055 by Brittney Denny [facility] Line 07/20/19; 0746; radi al artery, left; 20 gauge; Record; Sterile Prep, Sterile Gloves; removed inadvertently; 07/20/19; 1225 07/20/19 0746 by Erick Nixon 07/20/19 1225 by Priti Mcgraw RN (RETIRED) Peripheral IV Line - Single Lumen 07/20/19; 0823; median cubital vein (antecubital fossa), right; [id number]-mlomqv catheter system; 16 gauge; Record; (GA); 2; metacarpal vein (top of hand), right, cephalic vein (lateral side of arm), right; 07/20/19; 1215 07/20/19 0823 by Erick Nixon 07/20/19 1215 by Priti Mcgraw RN ETT Mask Ventilation: Ea edil (1); ETT Type: Cuffed, Oral; ETT Size: 7 mm; Mac Blade: 3; Notes: Asleep, Pre-O2, Cricoid Pressure, Stylette; Attempts: 1; Laryngoscopy Grade: 1; ETT Placement Verified By: Auscultation; Secured at Teeth: 23 cm; Inserted by: Record; Removal Date: 07/20/19; Removal Time: 1206 07/20/19 0827 by Erick Nixon 07/20/19 1206 by Erick Nixon Urethral Catheter 07/20/19; 0829; Surg pedro longer than 2 hours, Need for intraoperative urine output monitoring; Physician order; indwelling double lumen catheter; latex, silicone coated; 14; inserted at this facility; 1; 5; 5; other (see comments) (UNDER ANESTHESIA); leg bag to dependent drainage; 07/22/19; 0800 07/20/19 0829 by Vee Abbott RN 07/22/19 0800 by Kassandra Bassett RN Incision 07/20/19; 0829; abdo men; vertical; 12/17/21 (LDA cleanup utility RA#[id number]); 1715 (LDA cleanup utility RA#[id number]) 07/20/19 0829 by Vee Abbott RN 12/17/21 171 by Keila Arceo documented in this encounter Social History Tobacco [...] OR Notes * Anesthesia Postprocedure Evaluation - Aldo Kim MD - 07/21/2019 3:23 PM EDT Department of Anesthesiology Post-procedure Note Patient: Gabi Luna Procedure Summary Date: 07/20/19 Room / Location: [facility] OR [address] [place] [address] MAIN OR Anesthesia Start: 736 Anesthesia Stop: 121 Procedure: @HYSTERECTOMY, FREDI, BSO, DEBULKING (WRVU 34.13) (N/A Abdomen) Diagnosis: (PELVIC MASS) Surgeon: Natalie Vallejo MD Responsible Provider: Aldo Kim MD Anesthesia Type: general ASA Status: 3 All Anesthesia Providers: Anesthesiologist: Aldo Kim MD Dredge Hand: Erick Nixon MD Vitals Value Taken Time BP 92/53 07/20/2019 2:45 PM Temp 37 ??C (98.6 ??F) 07/20/2019 2:30 PM Pulse 68 07/20/2019 2:45 PM Resp 12 07/20/2019 2:45 PM SpO2 99 % 07/20/2019 3:06 PM Pain Level 6 07/20/2019 2:30 PM Vitals shown include unvalidated device data. Patient Location: PACU/[facility] Level of Consciousness: Awake and Alert Pain Management: Satisfactory Analgesia PONV: Cardiovascular Status: At Baseline Respiratory Status: At Baseline Postoperative Fluid Status: Intravascular EUvolemia Possible Anesthetic Complications: NONE apparent at time of evaluation Final Primary Anesthesia Type: General (The anesthetic type performed was the same as planned.) Comments: * Anesthesia Procedure Notes - Greta Garza MD - 07/20/2019 8:09 AM EDT Associated Order(s): Anesthesia Block Anesthesia Block Date/Time: 07/20/2019 8:07 AM Performed by: Greta Garza MD Authorized by: Joshua Pittman MD Start Time: 07/20/2019 8:00 AM End Time: 07/20/2019 8:07 AM Patient Location: Main OR The patient was greeted; the risks and benefits of the procedure were reviewed. Indication: Post-op Pain Control Post-op pain management at the request of surgeon. Block Type: TAP Laterality: Bilateral Position: Supine B-tumyg-lrmgu 21 10 cm Ultrasound Guided: YES and in-plane. Ultrasound Image(s) were saved. Ultrasound guidance was used to identify the targeted neuronal structure. Ultrasound was also used to identify needle position and to identify tissue (bone, muscle, and blood vessels) to prevent inadvertent intraneural or intravascular needle placement and injection. The spread of local anesthetic was confirmed with live ultrasound imaging. Single-Shot: Single-shot Injection Pressure Monitored: 15-20 PSI BUpivacaine 0.25%, 50 mL no complications Negative intermittent aspiration. 25cc injeted per side. Resident/CASTING AGENT:: Jeffrey Rangel MD Second Resident/CASTING AGENT:: Greta Garza MD Attending Physician:: Joshua Pittman MD * Anesthesia Preprocedure Evaluation - Erick Nixon - 07/13/2019 9:58 AM EDT Pre-Anesthesia Evaluation for: Gabi parker 58 y.o. female. Procedure(s): @HYSTERECTOMY, FREDI, BSO, DEBULKING (WRVU 34.13) Patient Active Problem List Diagnosis ??? HTN (hypertension) ??? Nonrheumatic aortic [...] Laterality Date ??? APPENDECTOMY 08/26/2013 ??? SECTION Social History Tobacco Use ??? Smoking status: Former Smoker Last attempt to quit: 07/12/1977 Years since quittin.0 ??? Smokeless tobacco: Never Used Substance Use Topics ??? Alcohol use: Yes Comment: 4 drinks per week Social History Substance and Sexual Activity Drug Use Never Allergies Allergen Reactions ??? Penicillins CIS - Anaphylaxis Medications: MAR and/or home medications have been reviewed. Physical Exam: There were no vitals filed for this visit. There is no height or weight on file to calculate BMI. Airway Assessment: Mallampati: II TM distance: >3 FB Neck ROM: limited Cardiovascular Assessment: (+) murmur Pulmonary Assessment: pulmonary exam normal Dental Assessment: - normal exam Misc Assessment: IV access: Peripheral line Anesthesia Plan: ASA 3 general, with a(n) intravenous induction Please see attached PAT clinic note for further details, in brief: This is a 58yo 63kg female w/pmhx notable for bicuspid aortic valve (mean gradient 39 mmHg, AV area1.01, asymptomatic with activity) and symptomatic large, multicystic pelvic masses who presents [facility] w/Dr. Vallejo. No prior airway/anesthetic records. Plan for preinduction arterial line for invasive BP monitoring., followed by GETA. Candidate for epidural per APS. Local Telephone Operator (MD Kim) Agree with above. Patient seen and examined. Very apprehensive about epidural, so will defer for now in favor of TAP blocks. Region - Other Informed Consent: Anesthetic plan and risks discussed with patient. Use of blood products discussed with patient who consented to blood products. Plan discussed with resident and attending. [facility] PAT Clinic Note: Date and Time of Entry: 07/13/2019 9:58 AM Entered By: Jess Suarez APRN Reason for Evaluation: Surgeon Request Hx of Anesthesia Problem: Denies. PAT Visit Type: Telephone Call Additional/Outside Records Requested? Did not request medical information from outside organization. Findings, Assessment and Plan: Ms. Luna is a 58 y.o. year old female not seen in the PAT Clinic but with whom I spoke prior to planned HYSTERECTOMY, FREDI, BSO, DEBULKING with Dr. Natalie Vallejo. Relevant PMH includes: HTN (diltiazem, HCTZ); SVT (diltiazem prn); ; hypothyroidism. ROS: Denies chest discomfort, syncope, orthopnea, lower extremity edema. One recent episode of SVT. Denies cough, SOB, wheezing. Denies GERD sx. She rates her pain over the past 24 hours as 6/10 (abdomen). Patient Reported Substance History: Smoking:no Alcohol:3-4 drinks per week Other drugs:CBD pill Caffeine:2 cups of coffee daily Exercise tolerance is moderate. She is independent with ADLs, attends to light and moderate knotter, works outside the home, and ascends stairs daily--all without cardiopulmonary sx. Previously she exercised regularly but has not gone skiing this year. Echo 05/05/2019 (scanned docs): EF 60-65%; no LV WMA, diastolic function indeterminate; moderate to severe (mean gradient 39 mmHg, AV area 1.01); moderate AR, mild MR and TR; RVSP 27-30 mmHg. We discussed expectations re: and options to manage post-operative pain. She is not keen to have anepidural but is willing to discuss this further on the day of surgery. Based on patient's report and available information, her co-morbidities appear optimized at this time with further input from Dr. Toure to be requested. I told her I would reach out to Dr. Toure to seek his recommendations regarding her and the implications of this on her perioperative care for this extensive surgery. I assured her that she would have the opportunity to speak with her anesthesiologist the morning ofthe surgery regarding the specific plan for anesthesia. Addendum: Per In Basket Message from Dr. Toure: Given the severity of her , she ??is at increased risk for an adverse cardiovascular event, including and postoperative [place]. As you saw from my note of she has moderate to severe , but ??had not yet reached the stage of requiring AVR. Given the relative urgency of the ROD HANGER surgery, and the extraordianry circumstances that we are facing, I am not recommending AVR. Prior to the Riveter Hand surgery. Rather, I suggest that she have invasive hemodynamic monitoring and optimization of loading conditions during the intraoperative and immediate postoperative period to guide management by anesthesia and our intensivists. I am happy to discuss further. Jess Suarez APRN Pre-Admission Testing [phone] documented in this encounter Miscellaneous Notes * Addendum Note - Joshua Pittman MD - 07/22/2019 9:20 AM EDT Addendum created 07/22/19919 by Joshua Pittman MD Attestation recorded in Intraprocedure, Intraprocedure Attestations filed documented in this encounter Plan of Treatment Upcoming Encounters Date Type Department Care Team (Latest Contact Info) Description 12/25/2023 9:[address] Scan at [place] [phone] Xavier Malhotra MD [facility] [place] [address] 12/29/2023 Hospital Encounter Electrophysiology Lab at [place] [phone] Xavier Malhotra MD [facility] [place] [address] Paroxysmal atrial fibrillation 12/29/2023 7:30 AM EDT - 12/29/2023 12:00 PM EDT Surgery [place] [address] Xavier Malhotra MD [facility] [place] [place] [address] ELECTROPHYSIOLOGY PROCEDURE 01/14/2024 10:40 AM EDT Office Visit Cardiology at [place] [phone] Carmen Castaneda PA [facility] [place] [address] Scheduled Procedures Name Priority Associated Diagnoses Date/Ti me TRANSESOPHAGEAL ECHO DURING CATH/EP PROCEDURE Paroxysmal atrial fibrillation 12/29/2023 7:30 AM EDT documented as of this encounter Procedures Procedure Name Priority Date/Time Associated Diagnosis Comments ANESTHESIA BLOCK Routine 07/20/2019 8:09 AM EDT documented in this encounter Results * Anesthesia Block (07/20/2019 8:09 AM EDT) Narrative Joshua Pittman MD - 07/20/2019 8:09 AM EDT Greta Garza MD ? 07/20/2019 ??8:12 AM Anesthesia Block Date/Time: 07/20/2019 8:07 AM Performed by: Greta Garza MD Authorized by: Joshua Pittman MD Start Time: ??07/20/2019 8:00 AM End Time: ??07/20/2019 8:07 AM Patient Location: ??Main OR The patient was greeted; the risks and benefits of the procedure were reviewed. ?? Indication: ??Post-op Pain Control Post-op pain management at the request of surgeon. ?? Block Type: ??TAP Laterality: ??Bilateral Position: ??Supine C-zlwdh-hguts 21 10 cm Ultrasound Guided: ??YES and in-plane. ??Ultrasound Image(s) were saved. Ultrasound guidance was used to identify the targeted neuronal structure. Ultrasound was also used to identify needle position and to identify tissue (bone, muscle, and blood vessels) to prevent inadvertent intraneural or intravascular needle placement and injection. The spread of local anesthetic was confirmed with live ultrasound imaging. ?? Single-Shot: ??Single-shot Injection Pressure Monitored: ??15-20 PSI BUpivacaine 0.25%, 50 mL no complications ?? Negative intermittent aspiration. ??25cc injeted per side. Resident/CASTING AGENT:: ??Jeffrey Rangel MD Second Resident/CASTING AGENT:: ??Greta Garza MD Attending Physician:: ??Joshua Pittman MD Joshua Pittman MD MAGNETOMETER OPERATOR [facility] documented in this encounter Visit Diagnoses Not on filedocumented in this encounter Administered Medications Inactive Administered Medications - up to 3 most recent administrations Medication Order MAR Action Action Date Dose Rate Site albumin (human) 5% 250 mL intravenous solution Intravenous, CONTINUOUS PRN, Starting on Fri07/20/19 at 1023, Until Fri07/20/19 at 1211, Anesthesia Intra-op, Routine New Bag 07/20/2019 10:35 AM EDT New Bag 07/20/2019 10:23 AM EDT BUpivacaine (MARACAINE) 0.25% bolus injection (Anesthesia) Epidural, Starting on Fri07/20/19 at 0807, Until Fri07/20/19 at 0807, Anesthesia Intra-op, Routine Given 07/20/2019 8:07 AM EDT 50 mLs dexamethasone (DECADRON) injection PRN, Starting on Fri07/20/19 at 0826, Until Fri07/20/19 at 1211, Anesthesia Intra-op, Routine Given 07/20/2019 8:26 AM EDT 4 mg dexmedetomidine (PRECEDEX) injection PRN, Starting on Fri07/20/19 at 0836, Until Fri07/20/19 at 1211, Anesthesia Intra-op, Routine Given 07/20/2019 9:28 AM EDT 4 mcg Given 07/20/2019 9:01 AM EDT 4 mcg Given 07/20/2019 8:54 AM EDT 4 mcg fentaNYL 50 mcg/mL multi-dose injection PRN, Starting on Fri07/20/19 at 0738, Until Fri07/20/19 at 1211, Anesthesia Intra-op, Routine Given 07/20/2019 7:38 AM EDT 100 mcg HYDROmorphone (DILAUDID) injection PRN, Starting on Fri07/20/19 at 1032, Until Fri07/20/19 at 1211, Anesthesia Intra-op, Routine Given 07/20/2019 11:55 AM EDT 0.4 mg Given 07/20/2019 10:32 AM EDT 0.2 mg lactated ringers infusion 1,000 mL, at 100 mL/hr, Intravenous, CONTINUOUS, Starting on Fri07/20/19 at 0700, Until Fri07/20/19 at 1442, Day of Surgery (Day of Procedure) New Bag 07/20/2019 1:26 PM EDT 1,000 mLs 100 mL/hr New Bag 07/20/2019 10:45 AM EDT New Bag 07/20/2019 9:35 AM EDT levoFLOXacin (LEVAQUIN) 500 mg in dextrose 5% 100 mL 500 mg, Intravenous, at 100 mL/hr, Administer over 60 Minutes, ONCE, 1 dose, On Fri07/20/19 at 0700, Continuous Linter Drier Operator to OR Infuse over 60 minutes., Day of Surgery (Day of Procedure), Routine, Indication for (Active or Suspected): Prophylaxis Given 07/20/2019 8:19 AM EDT 500 mg metroNIDAZOLE (FLAGYL) 500 mg in sodium chloride 0.9% 100 mL 500 mg, Intravenous, ONCE, 1 dose, On Fri07/20/19 at 0700, Administer over 30 Minutes, Continuous Linter Drier Operator to OR Infuse over 30 minutes., Day of Surgery (Day of Procedure), Indication for (Active or Suspected): Prophylaxis Given 07/20/2019 8:19 AM EDT 500 mg midazolam (PF) (VERSED) multi-dose injection PRN, Starting on Fri07/20/19 at 0738, Until Fri07/20/19 at 1211, Anesthesia Intra-op, Routine Given 07/20/2019 7:38 AM EDT 2 mg ondansetron (ZOFRAN) injection PRN, Starting on Fri07/20/19 at 1039, Until Fri07/20/19 at 1211, Anesthesia Intra-op, Routine Given 07/20/2019 10:39 AM EDT 8 mg PHENYLephrine (JESUS-SYNEPHRINE) 20 mg in sodium chloride 250 mL (standard ADULT & Pedi greater than 20kg) infusion CONTINUOUS PRN, Starting on Fri07/20/19 at 0745, Until Fri07/20/19 at 1211, Anesthesia Intra-op, Routine Rate/Dose Change 07/20/2019 10:56 AM EDT 10 mcg/min 7.5 mL/hr Rate/Dose Change 07/20/2019 10:51 AM EDT 20 mcg/min 15 mL/ hr Rate/Dose Change 07/20/2019 10:38 AM EDT 30 mcg/min 22.5 m L/hr PHENYLephrine in NS (PF) (JESUS-SYNEPHRINE) 0.8 mg/10 mL (80 mcg/mL) multi-dose injection Syrg PRN, Starting on Fri07/20/19 at 0747, Until Fri07/20/19 at 1211, Anesthesia Intra-op, Routine Given 07/20/2019 10:36 AM EDT 80 mcg Given 07/20/2019 7:47 AM EDT 80 mcg propofol (DIPRIVAN) 10 mg/mL bolus injection (Anesthesia) PRN, Starting on Fri07/20/19 at 0748, Until Fri07/20/19 at 1211, Anesthesia Intra-op Given 07/20/2019 7:48 AM EDT 120 mg Given 07/20/2019 7:47 AM EDT 20 mg Given 07/20/2019 7:45 AM EDT 20 mg rocuronium (ZEMURON) multi-dose injection PRN, Starting on Fri07/20/19 at 0836, Until Fri07/20/19 at 1211, Anesthesia Intra-op, Routine Given 07/20/2019 11:03 AM EDT 10 mg Given 07/20/2019 10:32 AM EDT 10 mg Given 07/20/2019 10:16 AM EDT 10 mg sugammadex (BRIDION) 100 mg/mL injection PRN, Starting on Fri07/20/19 at 1153, Until Fri07/20/19 at 1211, Anesthesia Intra-op, Routine Given 07/20/2019 11:53 AM EDT 200 mg documented in this encounter Care Teams Allergy And Immunology Specialist Relationship Specialty Start Date End Date Evelyne Hunt APRN [address] [place] [address] PCP - General Internal Medicine 09/23/17 documented as of this encounter
--- OUTSIDE RECORDS SUMMARY | 2023-12-01 02:19 | XMS_ITS | Encounter Summary ---
Author Organization [facility] [place] [address] Care Team Providers Care Emergency Man Name Role Phone Tavon Hanna Dow APRN Primary Care Provider [phone] Encounter Details Date Type Department Care Team (Late st Contact Info) Description 09/09/2013 Orders Only Radiology at [place] [phone] Cristóbal Baldwin MD [facility] [place] [address] Social History Tobacco Use Types Packs/Day Years Used Date Smoking Tobacco: Never Assessed Sex and Gender Information Value Date Recorded Sex Assigned at Not on file Gender Identity Not on file Sexual Orientation Not on file documented as of this encounter Plan of Treatment Upcoming Encounters Date Type Department Care Team (Latest Contact Info) Description 12/25/2023 9:[address] [place] [address] Xavier Malhotra MD [facility] [place] [address] 12/29/2023 Hospital Encounter [place] [address] Xavier Malhotra MD [facility] [place] [address] Paroxysmal atrial fibrillation 12/29/2023 7:30 AM EDT - 12/29/2023 12:00 PM EDT Surgery [place] [phone] Xavier Malhotra MD [facility] [place] [address] ELECTROPHYSIOLOGY PROCEDURE 01/14/2024 10:40 AM EDT Office Visit Cardiology at [address] [phone] Carmen Castaneda PA [facility] [place] [address] Scheduled Procedures Name Priority Associated Diagnoses Date/Ti me TRANSESOPHAGEAL ECHO DURING CATH/EP PROCEDURE Paroxysmal atrial fibrillation 12/29/2023 7:30 AM EDT documented as of this encounter Procedures Procedure Name Priority Date/Time Associated Diagnosis Comments FILM LIBRARY STORAGE ONLY CT PELVIS Routine 09/09/2013 3:30 PM EDT documented in this encounter Results * Film Library- Storage only CT Pelvis (09/09/2013 3:30 PM EDT) Anatomical Region Laterality Modality Pelvis Other 09/09/2013 3:30 PM EDT Narrative 09/09/2013 3:43 PM EDT This is a Non-reportable exam Procedure Note 09/09/2013 This is a Non-reportable exam Cristóbal Baldwin MD [facility]D ERABLES documented in this encounter Visit Diagnoses Not on filedocumented in this encounter Care Teams Emergency Man Relationship Specialty Start Date End Date Hanna Montes De Oca APRN [address] [place] [address] PCP - General 03/13/10 09/22/17 documented as of this encounter
--- OUTSIDE RECORDS SUMMARY | 2023-12-01 02:19 | XMS_ITS | Encounter Summary ---
Author Organization [facility] Address [facility] [place] [address] Care Team Providers Care Assistant Clinical Director Name Role Phone Evelyne Hunt TENISHA Primary Care Provider [phone] Reason for Visit * Reason Comments Skin Check Encounter Details Date Type Department Care Team (Late st Contact Info) Description 10/08/2017 3:45 PM EDT Office Visit Dermatology at [facility] [address] [place] [address] Valarie Tee MD [facility] [address] [place] [address] Multiple benign nevi; AK (actinic keratosis); Strickland angioma; Seborrheic keratosis; Lentigines Social History Tobacco Use Types Packs/Day Years Used Date Smoking Tobacco: Never Smokeless Tobacco: Never Sex and Gender Information Value Date Recorded Sex Assigned at Not on file Gender Identity Not on file Sexual Orientation Not on file documented as of this encounter Progress Notes * Valarie Tee MD - 10/08/2017 3:45 PM EDT DERMATOLOGY CONSULT NOTE Date of service: 10/08/2017 Gabi Luna : 1960 Provider: Valarie Tee MD Chief Complaint Patient presents with ??? Skin Check The patient is self referred. SKIN HX: No personal hx of skin cancer or skin diseases Tanning bed use several years ago HPI Gabi Luna is a 57 y.o. year old female. She has a history of a flesh colored papule on the posterior right upper arm. It has been there quite a while and is asymptomatic. She has no other concerns. ADR: Penicillins MEDS: Current Outpatient Prescriptions Medication Sig Dispense Refill ??? atorvastatin (LIPITOR) 10 mg Tablet Take [...] No current facility-administered medications for this visit. ROS General: feeling well Skin: denies other skin complaints EXAM General: NAD, pleasant, cooperative Skin: Patient was asked to disrobe to the level of their comfort. A total body skin exam except forthe genitalia was performed. This includes examination of the skin of the face, ears, neck, chest, axillae, left and right upper and lower extremities, hands, feet, abdomen, back, and buttocks. The genitalia, perineum, and perianal areas were not examined. Significant skin findings: A. Trunk and extremities: Multiple, 0.3-0.5cm, medium-brown, evenly-pigmented macules and papules. All with regular pigment pattern on dermoscopy. No pigmented lesions suspicious for melanoma. B. Trunk and extremities: 0.3-0.6cm light-brown evenly pigmented, well- demarcated macule C. Above left medial eyebrow: 0.2-0.3cm scaly irregular pink papule D. Above right medial eyebrow: 0.2cm bright red, well-demarcated papule E. Right upper arm: waxy stuck on macule ASSESSMENT/PLAN: A. Benign appearing nevi - Discussed benign nature of lesion and provided reassurance - No treatment necessary at this time - Observe skin for change in color, size or character. Call if such occur B. Lentigines - Discussed benign nature of lesion and provided reassurance - No treatment necessary at this time - Observe skin for change in color, size or character. Call if such occur C. Actinic keratosis - Discussed at length the natural history and etiology of actinic keratoses. Discussed premalignentpotential of these lesions. Discussed that a surgical procedure would likely be needed if these were to progress to skin cancer. Discussed treatment options. - Patient declines treatment at this time; would prefer to watch and wait. D. Strickland Angioma(s) - Discussed benign nature of lesion and provided reassurance - No treatment necessary at this time E. Seborrheic Keratosis - Etiology discussed - Patient reassured lesions are benign in nature - Explained that these are hereditary, adult onset and acquired. Follow up: PRN I am documenting this encounter acting as the scribe for and in the presence of Dr. Tee.: DANIELE HENENSSY LPN and Silvia Graves I performed the above scribed service and agree with the accuracy of the documentation in this encounter. Valarie Tee MD Section of Dermatology [facility] documented in this encounter Plan of Treatment Upcoming Encounters Date Type Department Care Team (Latest Contact Info) Description 12/25/2023 9:[address] [place] [phone] Xavier Malhotra MD [facility] [place] [address] 12/29/2023 Hospital Encounter [place] [phone] Xavier Malhotra MD [facility] [place] [place] [address] Paroxysmal atrial fibrillation 12/29/2023 7:30 AM EDT - 12/29/2023 12:00 PM EDT Surgery [place] [address] Xavier Malhotra MD [facility] [place] [address] ELECTROPHYSIOLOGY PROCEDURE 01/14/2024 10:40 AM EDT Office Visit Cardiology at [address] [phone] Carmen Castaneda PA [facility] [place] [address] Scheduled Procedures Name Priority Associated Diagnoses Date/Ti me TRANSESOPHAGEAL ECHO DURING CATH/EP PROCEDURE Paroxysmal atrial fibrillation 12/29/2023 7:30 AM EDT documented as of this encounter Visit Diagnoses Diagnosis Multiple benign nevi Benign neoplasm of skin, site unspecified AK (actinic keratosis) Actinic keratosis Strickland angioma Nevus, non-neoplastic Seborrheic keratosis Other seborrheic keratosis Lentigines Other dyschromia Paroxysmal atrial fibrillation Atrial fibrillation Paroxysmal atrial fibrillation Atrial fibrillation documented in this encounter Care Teams Assistant Clinical Director Relationship Specialty Start Date End Date Evelyne Hunt APRN [address] [place] [address] PCP - General Internal Medicine 09/23/17 documented as of this encounter
--- OUTSIDE RECORDS SUMMARY | 2023-12-01 02:19 | XMS_ITS | Encounter Summary ---
Author Organization [facility] Address [address] [place] [address] Care Team Providers Care Quality Control Checker Name Role Phone Marilee Evelyne Daugherty SENIOR LEAD DEVELOPER Primary Care Provider [phone] Encounter Details Date Type Department Care Team (Late st Contact Info) Description 08/13/2023 Lab Requisition [facility] Pathology & Laboratory Medicine - [facility] [address] [place], [place] [address] Outr Resulting Lab, Provider Social History Tobacco [...] Procedure Name Priority Date/Time Associated Diagnosis Comments CA 125 Routine 08/13/2023 8:16 EDT documented in this encounter Results * CA 125 (08/13/2023 8:16 EDT) CA 125 13 <30 U/mL 08/13/2023 19:22 EDT [facility] Comment: NOTE: Serum CA 125 concentration should not be interpreted as absolute evidence for the presence or absence of malignant disease. Assayed on Siemens ADVIA Centaur XPT using chemiluminescent technology. ??Values obtained by using different assay methods cannot be used interchangeably. Blood VENOUS BLOOD / Unknown 08/13/2023 8:16 EDT 08/13/2023 17:35 EDT Provider Outr Resulting Lab CHEMISTRY & BLOOD GAS ORDERABLES Performing Organization Address City/State/[facility] Co de Phone Number [facility] [address] [place], [place] [id number] documented in this encounter Visit Diagnoses Not on filedocumented in this encounter Care Teams Quality Control Checker Relationship Specialty Start Date End Date Evelyne Hunt NP [address] [place] [id number] PCP - General 08/19/19 documented as of this encounter
--- OUTSIDE RECORDS SUMMARY | 2023-12-01 02:19 | XMS_ITS | Encounter Summary ---
Author Organization [facility] Address [facility] [place] [address] Care Team Providers Care Tape Making Machine Operator Name Role Phone Evelyne Hunt APRN Primary Care Provider [phone] Reason for Visit * Reason Comments Establish Care LEFT ADNEXAL MASS * Consultation (Urgent) - Specialty Diagnoses / Procedures Referred By Marcel edwards Referred To Contact Gynecology Oncology Diagnoses PELVIC PAIN LEFT ADNEXAL MASS Regi Harrison MD [address] [place] [address] [facility] [employer] [address] [place] [address] Referral ID Status Reason Start Date Expiration Date V isits Requested Visits Authorized [id number] Consult, Test & Treat Connection Center PCP Updated and/or Approved 07/08/2019 07/07/2020 6 6 Encounter Details Date Type Department Care Team (Late st Contact Info) Description 07/12/2019 3:00 PM EDT Office Visit [place] [address] Pasquale Mederos MD [facility] [place] [address] Pelvic mass in female (Primary Dx) Social History Tobacco Use Types [...] Sign Reading Time Taken Comments Blood Pressure 145/88 07/12/2019 2:48 PM EDT Pulse 71 07/12/2019 2:48 PM EDT Temperature 36.8 ??C (98.3 ??F) 07/12/2019 2:48 PM ED T Respiratory Rate 20 07/12/2019 2:48 PM EDT Oxygen Saturation 99% 07/12/2019 2:48 PM EDT Inhaled Oxygen Concentration - - Weight 63 kg (138 lb 14.2 oz) 07/12/2019 2:48 PM EDT Height 165 cm (5' 4.96) 07/12/2019 2:48 PM EDT Body Mass Index 23.14 07/12/2019 2:48 PM EDT documented in this encounter Progress Notes * Pasquale Mederos MD - 07/12/2019 3:00 PM EDT Images from the original note were not included. Division of Gynecologic Oncology Brigette Mark MD [facility] Pasquale Mederos MD [facility] [place] [address] MD Sarah Cid, [facility] New Outpatient Visit: Reason for visit: Gabi Luna is being seen in the clinic today at the [place] [address] for the evaluation of pelvic masses. I have reviewed the available records, interviewed and examined the patient. History of Present Illness: Gabi Luna is a 58 y.o. female referred for evaluation of a pelvic mass. On 07/08/[address] the patient [address] a CT [...] of free fluid seen in the pelvis. The patient also underwent a transvaginal ultrasound [...] Complex fluid was seen in the cul-de-sac. today in the office the patient notes that she started having some lower pelvic pain. It persisted and her pants were not able to fit around the waist. Her appetite is decreased, she feels full aftera few bites. She is also peeing more frequently. She has no dysuria. She is moving her bowels normally. Review of Systems: Review of Systems Constitutional: Positive for appetite change. Negative for activity change, fever and unexpected weight change. HENT: Negative. Eyes: Negative. Respiratory: Negative for cough and shortness of breath. Cardiovascular: Positive for palpitations (h/o SVT). Negative for leg swelling. Gastrointestinal: Positive for abdominal distention and abdominal pain. Negative for blood in stool, constipation, diarrhea, nausea and vomiting. Genitourinary: Positive for frequency. Negative for hematuria. Musculoskeletal: Negative. Skin: Negative. Neurological: Negative for syncope, numbness and headaches. Hematological: Negative. Psychiatric/Behavioral: Negative. All other systems reviewed and are negative. Medical History: Past Medical History: Diagnosis Date ??? Allergic rhinitis ??? Anxiety ??? Aortic insufficiency due to bicuspid aortic valve ??? Aortic stenosis, moderate ??? Bicuspid aortic valve ??? History of appendectomy ??? Hyperlipidemia ??? Hypertension ??? Subclinical hypothyroidism ??? SVT (supraventricular tachycardia) Surgical History: Past Surgical History: Procedure Laterality Date ??? APPENDECTOMY 08/26/2013 ??? SECTION Medications: Current Outpatient Medications Medication Sig Dispense Refill ??? HYDROmorphone (Dilaudid) 2 mg Tablet ??? ergocalciferol, vitamin D2, (VITAMIN D ORAL) [...] visit. Allergies: Allergies Allergen Reactions ??? Penicillins CIS - Anaphylaxis Obstetric History: . C/s x 2. Gynecologic History/Health Maintenance: Menarche at age 15. Menopause at age unknown. Denies HRT use other than topical estrogen. Denies postmenopausal bleeding/spotting. Has had regular Pap smear screening and they have all been wnl. Mammograms are up to date and are wnl per the patient. Last colonoscopy = wnl, due soon Family History: Family History Problem (# of Occurrences) Relation (Name,Age of Onset) Cancer (1) Mother Heart Disease (3) Mother, Brother: 3 brothers, all with history of [place]; one with valvular disease, Maternal Grandfather Mother had a hysterectomy for unknown reasons. Social History: reports that she has quit smoking. She has never used smokeless tobacco. She reports current alcohol use. She is . She lives with her . 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 Physical Exam: Vitals: 07/12/19 1448 BP: 145/88 Patient Position: Sitting Pulse: 71 Resp: 20 Temp: 36.8 ??C (98.3 ??F) TempSrc: Temporal SpO2: 99% Weight: 63 kg (138 lb 14.2 oz) Height: 165 cm (5' 4.96) Body mass index is 23.14 kg/m??. Body surface area is 1.7 meters squared. Physical Exam Constitutional: General: She is not in acute distress. Appearance: Normal appearance. She is well-developed. She is not ill-appearing. Comments: Presents alone due to Covid restrictions. HENT: Head: Normocephalic and atraumatic. Eyes: General: No scleral icterus. Right eye: No discharge. Left eye: No discharge. Neck: Musculoskeletal: Neck supple. Cardiovascular: Rate and Rhythm: Normal rate and regular rhythm. Heart sounds: Murmur ( Her systolic ejection murmur heard best at right upper sternal border. 2-3 out of 6.) present. No friction rub. No gallop. Pulmonary: Effort: Pulmonary effort is normal. No respiratory distress. Breath sounds: Normal breath sounds. No wheezing or rales. Comments: Good breath sounds at both bases. Abdominal: General: There is no distension. Palpations: Abdomen is soft. There is no mass. Tenderness: There is no abdominal tenderness. Hernia: No hernia is present. Comments: No hepatosplenomegaly. Well-healed Pfannenstiel incision. Nondistended Genitourinary: Comments: There is whitened lichenified change around the urethra and clitoris and labia minora consistent with lichen sclerosis. The Bartholin's and [place]'s glands are unremarkable. The urethra is without masses. The urethral meatus is without prolapse. The vagina is and atrophic. There are no vaginal lesions. The patient is unable to tolerate a speculum exam. Bimanual exam reveals a left pelvicmass which does not feel fixed. The exam is significantly limited by the patient's discomfort. Rectovaginal exam was not attempted. Musculoskeletal: General: No tenderness. Right lower leg: No edema. Left lower leg: No edema. Lymphadenopathy: Cervical: No cervical adenopathy. Upper Body: Right upper body: No supraclavicular adenopathy. Left upper body: No supraclavicular adenopathy. Skin: General: Skin is warm and dry. Findings: No erythema or rash. Neurological: Mental Status: She is alert. Coordination: Coordination normal. Gait: Gait normal. Psychiatric: Behavior: Behavior normal. GOG Performance Status: 0 Pertinent Radiographic/Diagnostic Results: Impression/Plan: Gabi Luna is a 58 y.o. female seen for evaluation of symptomatic large, multicystic pelvic masses in the setting of early satiety, abdominal bloating, and pain. Upon review of these findings with Gabi Luna, I explained that this finding warrants removal given the symptomatic and complex nature of the masses. I further explained that a definitive diagnosis can only be made at the time of surgery and that this represented ovarian cancer. Benign and borderline lesions were also described. Given these findings, the decision was made to proceed with surgical exploration. Specifically, an open surgery as her masses should be ideally removed intact. During the course of obtaining informedconsent, I explained that the goal of surgery is twofold. First, it would allow us to remove the mass and obtain a frozen section for diagnosis and second it would allow for surgical staging if in fact this is a cancer. The risks of bleeding, infection, damage to surrounding organs, including but not limited to, the bowel, bladder, ureters and blood vessels, and DVT/PE were also reviewed with thepatient. At the conclusion of our visit all of her questions were answered and she verbalized understanding of the nature of her condition and the plan of care that was outlined. I discussed with the patient that given our current restrictions on elective surgical procedures due to the [place] V[place] 19 pandemic. I could not offer her a date for surgery today but that this would be reviewed by our surgical committee and that she would get a phone call hopefully within the week. History of aortic stenosis. Followed here by Dr. Melara in cardiology. Last ECHO, 05/06/19 at [facility],scanned docs. will ask for formal preoperative anesthesia consultation. There is also a recent EKG on file. We will plan to minimize perioperative fluids. Mass associated pain: She already has a prescription for Dilaudid and is encouraged to use this andsupplement with extra strength Tylenol as needed. Vulvar lichen sclerosis: She did note that she has been told this before and has a prescription forclobetasol. The pre-cancerous nature of this lesion was reviewed with her and she is encouraged to resume use of clobetasol. Thank you for referring this obi patient to [facility] for her care. I will keep you apprised of her progress. PASQUALE MEDEROS MD documented in this encounter Plan of Treatment Upcoming Encounters Date Type Department Care Team (Latest Contact Info) Description 12/25/2023 9:[address] [place] [address] Xavier Malhotra MD [facility] [place] [address] 12/29/2023 Hospital Encounter [place] [phone] Xavier Malhotra MD [facility] [place] [address] Paroxysmal atrial fibrillation 12/29/2023 7:30 AM EDT - 12/29/2023 12:00 PM EDT Surgery [place] [phone] Xavier Malhotra MD [facility] [place] [address] ELECTROPHYSIOLOGY PROCEDURE 01/14/2024 10:40 AM EDT Office Visit Cardiology at [address] [phone] Carmen Castaneda PA [facility] [place] [address] Scheduled Procedures Name Priority Associated Diagnoses Date/Ti me TRANSESOPHAGEAL ECHO DURING CATH/EP PROCEDURE Paroxysmal atrial fibrillation 12/29/2023 7:30 AM EDT documented as of this encounter Procedures Procedure Name Priority Date/Time Associated Diagnosis Comments HC CANCER ANTIGEN 125 Routine 07/12/2019 5:17 PM EDT documented in this encounter Results * (ABNORMAL) Cancer Antigen 125 (07/12/2019 5:17 PM EDT) CA 125 350.0(H) <=38.1 unit/mL [facility] Comment: CA 125 Reference Interval ??Postmenopausal: 6.2 to 31.5 U/mL. ??Premenopausal: 6.9 to 45.9 U/mL. ??Pre and Postmenopausal subjects combined: 6.4 to 38.1 U/mL. Blood specimen (specimen) 07/12/2019 5:17 PM EDT 07/12/2019 5:25 PM EDT Narrative Resulting Agency Comment Spec In Lab Pasquale Mederos MD CHEMISTRY ORDERABLES Performing Organization Address [facility] [address] [facility]/ZIP Co de Phone Number [facility] [place] [address] * BUN (07/12/2019 5:17 PM EDT) Blood Urea Nitrogen 12 8 - 18 mg/dL [facility] Blood specimen (specimen) 07/12/2019 5:17 PM EDT 07/12/2019 5:25 PM EDT Narrative Resulting Agency Comment Spec In Lab Pasquale Mederos MD CHEMISTRY ORDERABLES Performing Organization Address [facility] [address]/[facility] Co de Phone Number [facility] [place] [address] * Creatinine (07/12/2019 5:17 PM EDT) Creatinine 0.73 0.70 - 1.20 mg/dL [facility] Est Glomerular Filtration Rate 91 >=60 mL/min/1.7 3 m?? [facility] Comment: The eGFR was calculated using the CKD-EPI equation. As with all creatinine based estimates of kidney function, eGFR values calculated with the CKD-EPI equation are not accurate in patients with acute kidney failure, extremes of body mass or the acutely ill. [email or web address] [place]f eGFR 105 >=60 mL/min/1.7 3 m?? [facility] Comment: The eGFR was calculated using the CKD-EPI equation. As with all creatinine based estimates of kidney function, eGFR values calculated with the CKD-EPI equation are not accurate in patients with acute kidney failure, extremes of body mass or the acutely ill. [email or web address] [place] Blood specimen (specimen) 07/12/2019 5:17 PM EDT 07/12/2019 5:25 PM EDT Narrative Resulting Agency Comment Spec In Lab Pasquale Mederos MD CHEMISTRY ORDERABLES Performing Organization Address City/[facility] [address]/ZIP Co de Phone Number [facility] [place] [address] * Electrolytes panel (07/12/2019 5:17 PM EDT) Sodium 141 135 - 145 mmol/L [facility] Potassium 3.5 3.5 - 5.0 mmol/L [facility] Comment: Please note: ??Patients with WBC >100,000 may have falsely elevated Potassium levels. ??For accurate Potassium quantification in these patients send serum separator tube (gold top) for subsequent determinations. ??Contact the Clinical Chemistry Laboratory if there are any questions. Chloride 101 98 - 107 mmol/L [facility] Carbon Dioxide 26 22 - 31 mmol/L [facility] Anion Gap 14 5 - 15 mmol/L [facility] Blood specimen (specimen) 07/12/2019 5:17 PM EDT 07/12/2019 5:25 PM EDT Narrative Resulting Agency Comment Spec In Lab Pasquale Mederos MD CHEMISTRY ORDERABLES Performing Organization Address City/[facility] [address]/ZIP Co de Phone Number [facility] [place] [address] documented in this encounter Visit Diagnoses Diagnosis Pelvic mass in female- Primary Abdominal or pelvic swelling, mass or lump, unspecified site Paroxysmal atrial fibrillation Atrial fibrillation Paroxysmal atrial fibrillation Atrial fibrillation documented in this encounter Care Teams Tape Making Machine Operator Relationship Specialty Start Date End Date Evelyne Hunt APRN [address] [place] [address] PCP - General Internal Medicine 09/23/17 documented as of this encounter
--- OUTSIDE RECORDS SUMMARY | 2023-12-01 02:19 | XMS_ITS | Encounter Summary ---
Author Organization [facility] Address [address] [place] [address] Care Team Providers Care Christmas Tree Farmer Name Role Phone Evelyne Hunt SALESPERSON HOSIERY Primary Care Provider [phone] Encounter Details Date Type Department Care Team (Late st Contact Info) Description 05/08/2021 Lab Requisition [facility] Pathology & Laboratory Medicine - [facility] [address], [place] [address] Outr Resulting Lab, Provider Social History Tobacco [...] Date/Time Associated Diagnosis Comments CA 125 Routine 05/08/2021 11:58 EST documented in this encounter Results * CA 125 (05/08/2021 11:58 EST) CA 125 8 <30 U/mL 05/09/2021 11:19 EST [facility] Comment: NOTE: Serum CA 125 concentration should not be interpreted as absolute evidence for the presence or absence of malignant disease. Assayed on Siemens ADVIA Centaur XPT using chemiluminescent technology. ??Values obtained by using different assay methods cannot be used interchangeably. Blood VENOUS BLOOD / Unknown 05/08/2021 11:58 EST 05/08/2021 21:56 EST Provider Outr Resulting Lab CHEMISTRY & BLOOD GAS ORDERABLES Performing Organization Address City/State/[facility] Co de Phone Number [facility] [address] [place] [address] documented in this encounter Visit Diagnoses Not on filedocumented in this encounter Care Teams Christmas Tree Farmer Relationship Specialty Start Date End Date Evelyne Hunt, MEERA [address] [place] [address] PCP - General 08/19/19 documented as of this encounter
--- OUTSIDE RECORDS SUMMARY | 2023-12-01 02:19 | XMS_ITS | Encounter Summary ---
Author Organization [facility] Bert cassidy [place] [id number] Care Team Providers Care Grants Director Name Role Phone Kiki Huntyce Dat STEVEN Primary Care Provider [phone] Reason for Referral * Diagnostic Test (Routine) - Closed Specialty Diagnoses / Procedures Referred By Contac t Referred To Contact Diagnoses Aortic valve disorder Procedures Echocardiogram Stress (Treadmill) Jourdan Jensen MD [facility] [place] [address] [facility] [place] [address] Referral ID Status Reason Start Date Expiration Date V isits Requested Visits Authorized [id number] Closed Specialty Service Requested 09/22/2017 11/20/2017 1 1 Reason for Visit * Diagnostic Test (Routine) - Closed Specialty Diagnoses / Procedures Referred By Contac t Referred To Contact Diagnoses Aortic valve disorder Procedures Echocardiogram Stress (Treadmill) Jourdan Jensen MD [facility] [place] [address] [facility] [place] [address] Referral ID Status Reason Start Date Expiration Date V isits Requested Visits Authorized [id number] Closed Specialty Service Requested 09/22/2017 11/20/2017 1 1 Encounter Details Date Type Department Care Team (Late st Contact Info) Description 09/26/2017 11:00 AM EDT - 09/26/2017 11:59 PM EDT Hospital Encounter [place] [address] Mason Trujillo II, MD [facility] [place] [address] Aortic valve disorder Discharge Disposition: Home Social History Tobacco Use Types Packs/Day Years Used Date Smoking Tobacco: Never Smokeless Tobacco: Never Sex and Gender Information Value Date Recorded Sex Assigned at Not on file Gender Identity Not on file Sexual Orientation Not on file documented as of this encounter Medications at Time of Discharge Medication Sig Dispensed Refills Start Date End Date atorvastatin (LIPITOR) 10 mg Tablet Take 10 [...] our office.). 60 tablet 3 09/17/2017 01/04/2020 buPROPion (WELLBUTRIN XL) 150 mg 24 hr tablet Take 300 mg by mouth every morning. 05/18/2019 fish oil-omega-3 fatty acids 1,000 mg capsule Take 2 g by mouth daily. 12/17/2017 loratadine (CLARITIN) 10 mg tablet Take 10 mg by mouth daily. 12/17/2017 documented as of this encounter Plan of Treatment Upcoming Encounters Date Type Department Care Team (Latest Contact Info) Description 12/25/2023 9:[address] [place] [phone] Xavier Malhotra MD [facility] [place] [address] 12/29/2023 Hospital Encounter Electrophysiology Lab at [place] [phone] Xavier Malhotra MD [facility] [place] [address] Paroxysmal atrial fibrillation 12/29/2023 7:30 AM EDT - 12/29/2023 12:00 PM EDT Surgery Electrophysiology Lab at [place] [phone] Xavier Malhotra MD [facility] [place] [address] ELECTROPHYSIOLOGY PROCEDURE 01/14/2024 10:40 AM EDT Office Visit Cardiology at [place] [phone] Carmen Castaneda PA [facility] [place] [address] Scheduled Procedures Name Priority Associated Diagnoses Date/Ti me TRANSESOPHAGEAL ECHO DURING CATH/EP PROCEDURE Paroxysmal atrial fibrillation 12/29/2023 7:30 AM EDT documented as of this encounter Procedures Procedure Name Priority Date/Time Associated Diagnosis Comments STRESS ECHO W LMTD SPEC DOPP COLOR DOPP Routine 09/26/2017 12:32 PM EDT Aortic valve disorder documented in this encounter Results * STRESS ECHO W LMTD SPEC DOPP COLOR DOPP (09/26/2017 12:32 PM EDT) EF 70 HEARTLAB SYSTEM Anatomical Region Laterality Modality Other 09/26/2017 Narrative 09/26/2017 1:13 PM EDT Procedure: ?Stress Echocardiogram Patient: ?SRIDHAR Velázquez ? (Age): 1960(56y) Med Rec#: ? [id number] ?Sex: ?F ? Site Loc: ? [facility] ?Ht / Wt: ??166(cm)/60(kg) Pt. Loc: ?Echo Lab ?BSA: ?1.67 Study Date: ?? 09/26/2017 ?Pt. Type: Tape: ? Referring: TANIYA JENSEN ([id number]) Referring: AVNI Reading: Zan Gillespie ([id number]) Photoengraver: Mercdees He Photoengraver: Sahra Peralta Vehicle Return Associate: Adelia Isaac Diagnosis: *ICD-10-PCS Nonrheumatic aortic [...] a level of 11 METS, attaining peak EI=165 bpm, (94 % MPHR), and ritesh BP= [...] E-wave Vmax ?0.8 ?m/sec ? MV deceleration upep693.8 ?msec ? MV A-wave Vmax ?0.6 ?m/sec [...] ? Mid-Inferior ?Normal ? Mid-Inferoseptal ?Normal ? [place]-Septal ? Normal ? [place]-Anterior ? Normal ? [place]-Lateral ?Normal ? [place]-Inferior ? Normal ? [place]-Tip ?Normal ? This report has been electronically signed by: Zan Gillespie MD ? 09/26/2017 13:12:40 Images reviewed and interpretation verified [facility] Cardiac Ultrasound Laboratory Procedure Note Zan Gillespie MD - 09/26/2017 Procedure: Stress Echocardiogram Patient: SRIDHAR SILVA(Age): 1960(56y) Med Rec#: [id number] Sex: F Site Loc: [facility] Ht / Wt: 166(cm)/60(kg) Pt. Loc: Echo Lab BSA: 1.67 Study Date: 09/26/2017 Pt. Type: Tape: Referring: TANIYA JENSEN ([id number]) Referring: AVNI Reading: Zan Gillespie ([id number]) Photoengraver: Mercedes He Photoengraver: Sahra Peralta Vehicle Return Associate: Adelia Isaac Diagnosis: *ICD-10-PCS Nonrheumatic aortic [...] a level of 11 METS, attaining peak RZ=443 bpm, (94 % MPHR), and ritesh BP= [...] MV E-wave Vmax 0.8 m/sec MV deceleration kykw694.8 msec MV A-wave Vmax 0.6 m/sec MV [...] Normal Mid-Posterolateral Normal Mid-Inferior Normal Mid-Inferoseptal Normal [place]-Septal Normal [place]-Anterior Normal [place]-Lateral Normal [place]-Inferior Normal [place]-Tip Normal This report has been electronically signed by: Zan Gillespie MD 09/26/2017 13:12:40 Images reviewed and interpretation verified [facility] Cardiac Ultrasound Laboratory Mason Trujillo II, MD ECHO ORDERABLES documented in this encounter Visit Diagnoses Diagnosis Aortic valve disorder Aortic valve disorders Paroxysmal atrial fibrillation Atrial fibrillation Paroxysmal atrial fibrillation Atrial fibrillation documented in this encounter Care Teams Grants Director Relationship Specialty Start Date End Date Evelyne Hunt APRN [address] [place] [address] PCP - General Internal Medicine 09/23/17 documented as of this encounter
--- OUTSIDE RECORDS SUMMARY | 2023-12-01 02:19 | XMS_ITS | Encounter Summary ---
Author [place] [address] Care Team Providers Care Robotics Application Engineer Name Role Phone Marilee Evelyne Daugherty APRN Primary Care Provider [phone] Reason for Visit * Reason Onset Date Comments Results 05/12/2019 Encounter Details Date Type Department Care Team (Late st Contact Info) Description 05/12/2019 Telephone Cardiology at [address] [phone] Ruby Moyer Results Social History Tobacco Use Types Packs/Day [...] encounter Miscellaneous Notes * Telephone Encounter - Mason Trujillo II - 05/14/2019 5:23 PM EST I have not seen the patient since her admission to the hospital in March 2018. She had a follow-up appointment in April 2018 but apparently this was canceled. I called the patient back and apparently she has not been followed by a electric power line repairer in the interim. Her PCP ordered the echocardiogram and that study shows progression in her aortic stenosis with a current gradient of 39 mmHg and a current valve area of 1.01 cm??. When she was given the results ofher echo by her PCP she was told to contact me to discuss these results. She tells me she continues to remain asymptomatic however she has not been pursuing any vigorous exercise recently because of job demands. However, she would like to resume vigorous exercise (specifically she mentions cross-country skiing). I advised her that given the new echo results repeating anecho stress test would probably be prudent prior to resuming high-level strenuous exercise. Unfortunately I will not be available to be the patient's electric power line repairer over the next 2 months so I recommended that she have an appointment with 1 of the other electric power line repairer here since her preference is to keep her care here at . I will have my confidential secretary arrange an appointment for her hopefully within the next 30 days. NN * Telephone Encounter - Ruby Moyer - 05/12/2019 1:[address] Trujillo, Patient would like you to review her recent echo from 05/05/2019 done at [facility] (scanned docs) She hopes you can give her a call at earliest convenience to review results with her. documented in this encounter Plan of Treatment Upcoming Encounters Date Type Department Care Team (Latest Contact Info) Description 12/25/2023 9:[address] [place] [place] [address] Xavier Malhotra MD [facility] [place] [address] 12/29/2023 Hospital Encounter [place] [phone] Xavier Malhotra MD [facility] [place] [address] Paroxysmal atrial fibrillation 12/29/2023 7:30 AM EDT - 12/29/2023 12:00 PM EDT Surgery [place] [phone] Xavier Malhotra MD [facility] [address] ELECTROPHYSIOLOGY PROCEDURE 01/14/2024 10:40 AM EDT Office Visit Cardiology at [address] [phone] Carmen Castaneda PA [facility] [place] [address] Scheduled Procedures Name Priority Associated Diagnoses Date/Ti ri TRANSESOPHAGEAL ECHO DURING CATH/EP PROCEDURE Paroxysmal atrial fibrillation 12/29/2023 7:30 AM EDT documented as of this encounter Visit Diagnoses Not on filedocumented in this encounter Care Teams Robotics Application Engineer Relationship Specialty Start Date End Date Evelyne Hunt APRN [address] [place] [address] PCP - General Internal Medicine 09/23/17 documented as of this encounter
--- OUTSIDE RECORDS SUMMARY | 2023-12-01 02:19 | XMS_ITS | Encounter Summary ---
Author Organization [facility] [place] [address] Care Team Providers Care Warehouse Checker Name Role Phone Marilee Evelyne Daugherty APRN Primary Care Provider [phone] Encounter Details Date Type Department Care Team (Late st Contact Info) Description 04/17/2018 External Results [address] [place] [address] Social History Tobacco Use Types [...] 9:[address] [place] [address] Xavier Malhotra MD [facility] [place] [address] 12/29/2023 Hospital Encounter [place] [address] Xavier Malhotra MD [facility] [place] [address] Paroxysmal atrial fibrillation 12/29/2023 7:30 AM EDT - 12/29/2023 12:00 PM EDT Surgery [place] [phone] Xavier Malhotra MD [facility] [place] [address] ELECTROPHYSIOLOGY PROCEDURE 01/14/2024 10:40 AM EDT Office Visit Cardiology at [address] [phone] Carmen Castaneda PA [facility] [place] [address] Scheduled Procedures Name Priority Associated Diagnoses Date/Ti me TRANSESOPHAGEAL ECHO DURING CATH/EP PROCEDURE Paroxysmal atrial fibrillation 12/29/2023 7:30 AM EDT documented as of this encounter Procedures Procedure Name Priority Date/Time Associated Diagnosis Comments ECG SCAN Routine 04/17/2018 documented in this encounter Results * Scan Doc: ECG (04/17/2018) Historical Provider MD [facility] SCAN EX T ORDR/RSLT documented in this encounter Visit Diagnoses Not on filedocumented in this encounter Care Teams Warehouse Checker Relationship Specialty Start Date End Date Evelyne Hunt APRN [address] [place] [address] PCP - General Internal Medicine 09/23/17 documented as of this encounter
--- OUTSIDE RECORDS SUMMARY | 2023-12-01 02:19 | XMS_ITS | Encounter Summary ---
Author Organization [facility] Address [address] [place] [address] Care Team Providers Care Erp Manager Name Role Phone Evelyne Hunt [employer] INSPECTOR AND ADJUSTER Primary Care Provider [phone] Encounter Details Date Type Department Care Team (Late st Contact Info) Description 08/10/2021 Lab Requisition [facility] Pathology & Laboratory Medicine - [facility] [address], [place] [id number] Outr Resulting Lab, Provider Social History Tobacco [...] Date/Time Associated Diagnosis Comments CA 125 Routine 08/10/2021 11:50 EDT documented in this encounter Results * CA 125 (08/10/2021 11:50 EDT) CA 125 8 <30 U/mL 08/13/2021 10:39 EDT [facility] Comment: NOTE: Serum CA 125 concentration should not be interpreted as absolute evidence for the presence or absence of malignant disease. Assayed on Siemens ADVIA Centaur XPT using chemiluminescent technology. ??Values obtained by using different assay methods cannot be used interchangeably. Blood VENOUS BLOOD / Unknown 08/10/2021 11:50 EDT 08/10/2021 20:50 EDT Provider Outr Resulting Lab CHEMISTRY & BLOOD GAS ORDERABLES Performing Organization Address City/State/[facility] Co de Phone Number [facility] [address] [place] [address] documented in this encounter Visit Diagnoses Not on filedocumented in this encounter Care Teams Erp Manager Relationship Specialty Start Date End Date Evelyne Hunt NP [address] [place] [address] PCP - General 08/19/19 documented as of this encounter
--- OUTSIDE RECORDS SUMMARY | 2023-12-01 02:19 | XMS_ITS | Encounter Summary ---
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 Name Role Phone Marilee Evelyne Daugherty APRN Primary Care Provider [phone] Reason for Visit * Auth/Cert Specialty Diagnoses / Procedures Referred By Contac t Referred To Contact Diagnoses Chest pain CP Procedures EMERGENCY IPI Referral ID Status Reason Start Date Expiration Date Visits Re quested Visits Authorized [id number] 1 1 Encounter Details Date Type Department Care Team (Late st Contact Info) Description 04/17/2018 11:40 AM EST - 04/17/2018 5:28 PM EST Hospital Encounter [place] [phone] Mason Trujillo II, MD [facility] [place] [address] Aortic valve disorder; Chest pain, unspecified type Discharge Disposition: Home Social History [...] Sign Reading Time Taken Comments Blood Pressure 134/94 04/17/2018 4:25 PM EST aware Pulse 84 04/17/2018 4:25 PM EST Temperature 36.8 ??C (98.2 ??F) 04/17/2018 4:25 PM ES T Respiratory Rate 13 04/17/2018 4:25 PM EST Oxygen Saturation 97% 04/17/2018 4:25 PM EST Inhaled Oxygen Concentration - - Weight 62.1 kg (137 lb) 04/17/2018 4:22 PM EST Height 166.4 cm (5' 5.5) 04/17/2018 12:24 PM ES T Body Mass Index 22.45 04/17/2018 12:24 PM EST documented in this encounter Discharge Summaries * Danny Piña DO - 04/17/2018 5:24 PM EST Images from the original note were not included. Cardiology - Discharge Summary Patient Name: Gabi Luna Patient Age: 57 y.o. Birthdate: 1960 Admit date: 04/17/2018 Discharge date and time: 04/17/2018 Attending Physician: Mason Trujillo II, MD Follow-up Recommendations for Providers: # Patient was admitted for chest pain workup, exercise stress test was largely unremarkable as below # As of now, chest pain seems unlikely to be ischemic in origin (however, vasospasm could be a cause), but if patient continues to have chest pain she may need a cardiac catheterization to better characterize coronary anatomy # Patient tolerated stress test well and was no longer having chest pain and was discharged on sameday of admission Discharge Diagnoses (Hospital Problems) and Secondary Diagnoses (Chronic Problems): Active Hospital Problems Diagnosis ??? Chest pain Resolved Hospital Problems No resolved problems to display. Procedures/Cardiac Studies: exercise treadmill test (see full report below) History of Presentation: Gabi Luna is a 57 y.o. old female with history of SVT on home diltiazem, hypertension and moderate with a bicuspid aortic valve. who is transferred from [facility] for evaluation of several hours atypical chest pain. ?? Pt was in her usual state of health (frequently biking, skiing, etc.) until 4pm yesterday when she developed chest discomfort over her midline lower chest. These episodes lasted from seconds to minutes and would then resolve completely for a few minutes before recurring. The pain was mild and both sharp and aching in quality and did not radiate. She had some associated diaphoresis but no dyspnea,nausea, or palpitations. The symptoms resolved before she went to sleep at 9pm, but she was awakened at 12:30am with more severe pain in the same location and of the same quality, again coming in bursts of seconds-minutes followed by periods of seconds-minutes without symptoms. After waiting for 2 h ours, she woke her up and he drove her to local ER. After she arrived at [facility] ER, her chestpain resolved spontaneously and since then, she remained chest pain free. She was given 324 mg of aspirin and after two sets of enzymes were negative, as they did not have cardiology coverage due to weather, she is sent here for further assessment. She continues to remain chest pain free. ?? From cardiac stand point, she has SVT diagnosed earlier this year and was started on diltiazem daily in spring 2017 with a pill in pocket which she has only ever had to use once. She had a stress echo 6 months ago here at [facility] which was ordered for evaluation of symptom burden; was initially reported as severe on OSH TTE but on stress echo at [facility] she was found to have only mild with SUDHAKAR 1.28. She exceeded 11 METs with normal BP response, no imaging evidence for ischemia. 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. Quit smoking 36 years ago Hospital Course: Patient was admitted for workup of atypical chest pain as described above. As of 3am today, patienthas no longer had any chest pain. 3 sets of troponins were negative including x 2 at OSH. It was decided to perform stress echo test, which was subsequently negative as below, and thought that this chest pain was unlikely to be cardiac in origin, however vasospasm could have been a culprit. Patientwas chest pain free and tolerated stress test well and was enthusiastic about discharge, so patientwas discharged in stable condition with follow in the outpatient setting with PCP and cardiology. If patient continues to have chest pain, she may require cardiac cath for better characterization. ?? Important Studies and Lab Data: Discharge Labs: Recent Labs 04/17/18 1245 WBC 5.8 HGB 15.2 PLATELET 269 Recent Labs 04/17/18 1245 NA 141 K 4.0 CL 106 CO2 23 BUN 10 CREATININE 0.68* GLUCOSE 95 Recent Labs 04/17/18 1245 CALCIUM 9.5 MAGNESIUM 0.83 Recent Labs 04/17/18 1245 TROPONINT <0.01 No results for input(s): AST, ALT, ALKPHOS, BILITOT, BILIDIR in the last 168 hours. Recent Labs 04/17/18 1245 INR 1.0 No results for input(s): HA1C in the last 7068 hours. Studies: Exercise echo stress test: Stage BP HR Rest 128/82 93 Peak 188/88 146 Recovery 136/78 87 ?? SUMMARY: ?? 1. REST: The ECG shows sinus rhythm at 76 bpm with no pathologic Q waves and no ST depression. The LV is normal in size and systolic function. The aortic valve is not well seen but appears bicuspid with Doppler evidence of moderate stenosis (estimated SUDHAKAR of 1.3 cm2). 2. STRESS: The pericardium appears normal and there is no evidence of a pericardial effusion. The patient achieved a level of 12 METs (greater than 150% of predicted). The blood pressure response was normal. The patient did not express feelings of chest discomfort. There were no significant ST segment changes. On echo, all wall segments augmented. 3. CONCLUSION: This was a negative echocardiographic stress test. Discharge Conditions/Prognosis: Upon discharge the pt is hemodynamically stable, fully ambulatory without requiring supplemental oxygen, holding down food/drink, afebrile and pain free controlled with stable oral regimen. Discharge to: Home Discharge Medications: Your Medications New Medications Dose Details nitroGLYcerin 0.4 mg Subl Commonly known as: NITROSTAT Place 1 tablet under the tongue every 5 minutes as needed for Chest pain. 0.4 mg Quantity: 90 tablet Refills: 12 simethicone 80 mg Chew Commonly known as: MYLICON Take 1 tablet by mouth every 6 hours as needed for Flatulence. 80 mg Quantity: 30 tablet Refills: 0 Continued medications, unchanged Dose Details atorvastatin 10 mg Tab Commonly known as: LIPITOR Take 10 mg by mouth daily. 10 mg Refills: 0 BIOTECT PLUS ORAL Take 5,000 mcg by mouth daily. 5000 mcg Refills: 0 buPROPion 150 mg Tablet Extended Release 24 hr Commonly known as: WELLBUTRIN XL Take 300 mg by mouth every morning. 300 mg Refills: 0 * dilTIAZem 180 mg Cp24 Commonly known as: CARDIZEM CD Take 1 capsule by mouth daily. 180 mg Quantity: 60 capsule Refills: 5 * dilTIAZem 30 mg Tab Commonly known as: CARDIZEM Take 1 tablet by mouth as needed (Palpitations. If you use more than 3 tablets in a day, please call our office.). 30 mg Quantity: 60 tablet Refills: 3 hydroCHLOROthiazide 25 mg Tab Commonly known as: HYDRODIURIL Take 25 mg by mouth daily. 25 mg Refills: 0 * This list has 2 medication(s) that are the same as other medications prescribed for you. Read thedirections carefully, and ask your doctor or other care provider to review them with you. Updated Allergies/ADRs: Allergies Allergen Reactions ??? Penicillins CIS - Anaphylaxis Future Appointments and Orders Future Appointments and Orders Future Appointments Provider Department Dept Phone 05/14/2018 11:00 AM Mason Trujillo II, MD Cardiology at [place] Arrive at: [facility] [phone] General Instructions None Patient Instructions Instruction after leaving the hospital Why you were hospitalized: You were hospitalized for work up of chest pain. Exercise stress test was performed which did not show any evidence of reduced blood flow to the heart. We suspect your painis likely non-cardiac in origin. However, if you are continuing to have symptoms without a clear identified cause, you may need more invasive cardiac testing in the future. Patient Instructions: - All your outpatient appointments have been scheduled, see below for all the appointment dates andtimes - No urgent indications for cardiology follow up at this time, can see cardiology as needed - We will give you short-acting diltiazem before leaving the hospital to last you until you next take your long-acting dose tomorrow Call your doctor or seek medical attention if you develop the following: Call your doctor or seek medical attention if you experience any alarming symptoms. This may include, but is not limited to, fever, chest pain, severe shortness of breath, nausea with vomiting, persistent decrease in your urinary output, severe pain, or any other concerning symptoms. New medications: - Nitroglycerin tablet as needed for chest pain - Simethicone as needed for chest/upper abdominal pain. Activity level: As tolerated. Diet: No new restrictions. Driving: Please do not drive if you feel lightheaded, dizzy, faint, or taking any opioids/narcotics(i.e oxycodone). It is advisable that you do not drive till you follow-up with your primary care physician. Shower/Bath: No new restrictions. Home Oxygen therapy: N/A Changes in Your Medications: None Follow-Up Appointments Future appointment with PCP on 05/05 at 11:00am Date and Time Provider and Specialty Location 05/05/18 at 11am Evelyne Hunt APRN , PCP [address] [facility] [address] 05/14/[address] Trujillo, Cardiology Your Inpatient Doctor(s) at [facility]: MD Ronnie Farooq II, MD Your Primary Care Provider: Evelyne Hunt APRN [address] [facility] [address] For questions regarding this document or issues relating to this hospitalization on the Medical Service, please contact your inpatient physician through the [facility] [employer] . Issues afterhours and on weekends will be handled by the Hospitalist staff on-call. Signed: Danny Piña Internal Medicine PGY-1 Cardiovascular Medicine Pager [phone] documented in this encounter Discharge Instructions * Patient Instructions* Ronnie Granger - 04/17/2018 3:43 PM EST Instruction after leaving the hospital Why you were hospitalized: You were hospitalized for work up of chest pain. Exercise stress test was performed which did not show any evidence of reduced blood flow to the heart. We suspect your painis likely non-cardiac in origin. However, if you are continuing to have symptoms without a clear identified cause, you may need more invasive cardiac testing in the future. Patient Instructions: - All your outpatient appointments have been scheduled, see below for all the appointment dates andtimes - No urgent indications for cardiology follow up at this time, can see cardiology as needed - We will give you short-acting diltiazem before leaving the hospital to last you until you next take your long-acting dose tomorrow Call your doctor or seek medical attention if you develop the following: Call your doctor or seek medical attention if you experience any alarming symptoms. This may include, but is not limited to, fever, chest pain, severe shortness of breath, nausea with vomiting, persistent decrease in your urinary output, severe pain, or any other concerning symptoms. New medications: - Nitroglycerin tablet as needed for chest pain - Simethicone as needed for chest/upper abdominal pain. Activity level: As tolerated. Diet: No new restrictions. Driving: Please do not drive if you feel lightheaded, dizzy, faint, or taking any opioids/narcotics(i.e oxycodone). It is advisable that you do not drive till you follow-up with your primary care physician. Shower/Bath: No new restrictions. Home Oxygen therapy: N/A Changes in Your Medications: None Follow-Up Appointments Future appointment with PCP on 05/05 at 11:00am Date and Time Provider and Specialty Location 05/05/18 at 11am Evelyne Hunt APRN , PCP [address] [facility] [address] 05/14/[address] Trujillo, Cardiology Your Inpatient Doctor(s) at [facility]: MD Ronnie Farooq II, MD Your Primary Care Provider: Evelyne Hunt APRN [address] [facility] [address] For questions regarding this document or issues relating to this hospitalization on the Medical Service, please contact your inpatient physician through the [facility] [employer] . Issues afterhours and on weekends will be handled by the Hospitalist staff on-call. documented in this encounter Medications at Time of Discharge Medication Sig Dispensed Refills Start Date End Date nitroGLYcerin (NITROSTAT) 0.4 mg Tablet, Sublingual Place 1 tablet under the tongue every 5 minutes as needed for Chest pain. 90 tablet 12 04/17/2018 05/18/2019 simethicone (MYLICON) 80 mg Tablet, Chewable Take 1 tablet by mouth every 6 hours as needed for Flatulence. 30 tablet 04/17/2018 05/18/2019 amino acids/mv,tx,iron,minera l (BIOTECT PLUS ORAL) Take 5,000 mcg by mouth daily. 05/18/2019 atorvastatin (LIPITOR) 10 mg Tablet Take 10 [...] 300 mg by mouth every morning. 05/18/2019 documented as of this encounter Progress Notes * Joselyn Coats RN - 04/17/2018 5:20 PM EST Pt arrived from OSH around noon today. Pt denied chest pain. Pt A+O. No complaints of SOB. EKG and labs obtained. SR on tele rates 70s-90s with sabi christensens- aware. Pt went for stress test today. Pt being discharged to home this evening with . Pt's IVs and tele removed. Pt's AVS given to andgone over with patient- verbalizes understanding. No questions at the time of discharge. Pt wheeledout to the [facility] entrance by nursing staff. documented in this encounter H&P Notes * Mason Trujillo II - 04/17/2018 12:21 PM EST Cardiology Admission H&P April 17, 2018 Name: Gabi Smithrhonda Gender: female : 1960 Age: 57 y.o. Date of Admit: 04/17/2018 Attending Physician Mason Trujillo II, MD Chief Complaint: Chest pain Patient Active Problem List Diagnosis ??? Chest pain ??? SVT (supraventricular tachycardia) ??? Bicuspid aortic valve Overview Note: Mod with SUDHAKAR 1.28 cm2 SVI= 58.9 ml/m2, DOI=0.38 ??? Hypothyroidism ??? H/O: Overview Note: x2 History of Presenting Illness: Gaib Luna is a 57 y.o. old female with history of SVT on home diltiazem, hypertension and moderate with a bicuspid aortic valve. who is transferred from [facility] for evaluation of several hours atypical chest pain. Pt was in her usual state of health (frequently biking, skiing, etc.) until 4pm yesterday when she developed chest discomfort over her midline lower chest. These episodes lasted from seconds to minutes and would then resolve completely for a few minutes before recurring. The pain was mild and both sharp and aching in quality and did not radiate. She had some associated diaphoresis but no dyspnea,nausea, or palpitations. The symptoms resolved before she went to sleep at 9pm, but she was awakened at 12:30am with more severe pain in the same location and of the same quality, again coming in bursts of seconds-minutes followed by periods of seconds-minutes without symptoms. After waiting for 2 h ours, she woke her up and he drove her to local ER. After she arrived at [facility] ER, her chestpain resolved spontaneously and since then, she remained chest pain free. She was given 324 mg of aspirin and after two sets of enzymes were negative, as they did not have cardiology coverage due to weather, she is sent here for further assessment. She continues to remain chest pain free. From cardiac stand point, she has SVT diagnosed earlier this year and was started on diltiazem daily in spring 2017 with a pill in pocket which she has only ever had to use once. She had a stress echo 6 months ago here at [facility] which was ordered for evaluation of symptom burden; was initially reported as severe on OSH TTE but on stress echo at [facility] she was found to have only mild with SUDHAKAR 1.28. She exceeded 11 METs with normal BP response, no imaging evidence for ischemia. 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 Review of Systems: General ROS: No fatigue or weakness. Psychological: No anxiety or depression, no mood swings. Ophthalmic: No blurred vision or watery or red eyes. ENT: Negative for ear discharge or running nose or cold or throat swelling. Allergy: negative for - itchy/watery eyes Heme: Negative for-bleeding, bruising, fatigue, jaundice, night sweats Endocrine: negative for - polydipsia/polyuria/ heat intolerance Respiratory: As in HPI CVS: As in HPI GI: No abd pain, change in bowel habits, or black or bloody stools Genitourinary: No dysuria, trouble voiding, or hematuria MSK: negative for - joint pain, joint stiffness or joint swelling Neurological: No TIA or stroke symptoms Allergies:Penicillins Medications: No current facility-administered medications on file prior to encounter. Current Outpatient Medications on File Prior to Encounter Medication Sig Dispense Refill ??? amino acids/mv,tx,iron,mineral [...] Take 300 mg by mouth every morning. Past Medical History: Diagnosis Date ??? Allergic rhinitis ??? Anxiety ??? Aortic insufficiency due to bicuspid aortic valve ??? Aortic stenosis, moderate ??? Bicuspid aortic valve ??? Hyperlipidemia ??? Hypertension ??? Subclinical hypothyroidism ??? SVT (supraventricular tachycardia) Past Surgical History: Procedure Laterality Date ??? APPENDECTOMY 08/26/2013 Family History Problem Relation Age of Onset ??? Heart Disease Mother ??? Cancer Mother ??? Heart Disease Brother 3 brothers, all with history of MT; one with valvular disease ??? Heart Disease Maternal Grandfather Social History Socioeconomic History ??? Marital status: Spouse name: Not on file ??? Number of children: Not on file ??? Years of education: Not on file ??? Highest education level: Not on file Social Needs ??? Financial resource strain: Not on file ??? Food insecurity - worry: Not on file ??? Food insecurity - inability: Not on file ??? Transportation needs - medical: Not on file ??? Transportation needs - non-medical: Not on file Occupational History ??? Not on file Tobacco Use ??? Smoking status: Former Smoker ??? Smokeless tobacco: Never Used Substance and Sexual Activity ??? Alcohol use: Yes Comment: 2-3 drinks per day ??? Drug use: Not on file ??? Sexual activity: Not on file Other Topics Concern ??? Not on file Social History Narrative ??? Not on file Physical Exam: Most Recent Vitals: 04/17/18 1625 BP: (!) 134/94 Pulse: 84 Resp: 13 Temp: 36.8 ??C (98.2 ??F) SpO2: Gen/Constitutional: Alert, appears comfortable. HEENT: SHAWN, EOMI, No conjunctival pallor or scleral icterus Cardiac/CVS: RRR S1 S2, mid-peaking 3/6 systolic crescendo/decrescendo murmur over RUSB Pulm/Chest: Clear to auscultation, no rales or ronchi. Abd/GI: No tenderness, not distended, soft, BS present, no organomegaly Musculoskeletal: No edema, Pulses palpable, no calf tenderness Neuro/WAITER/WAITRESS HEAD: AAO x 3, No evident deficits Labs: Labs from [facility] reviewed. Negative troponins x 2, (Troponin I First <0.02, second 0.02, ULN 0.06) Neg D-dimer, normal CBC, BUN/Cr: 12/0.6, H/H: 16.6/47.4, Plt 284 LFTs at [facility] WNL Treadmill stress echo from September 2017: SUMMARY: 1. BASELINE: There is normal global [...] a level of 11 METS, attaining peak XP=900 bpm, (94 % MPHR), and ritesh BP= [...] would be higher than measured blood pressure). Impression and Plan: Gabi Luna is a 57 y.o. old female with history of SVT on home diltiazem, hypertension and moderate with a bicuspid aortic valve. who is transferred from [facility] for evaluation of several hours atypical chest pain. She is currently CP free since ~3am today and had negative troponins x 2 at OSH. Although she had normal treadmill stress echo 6 months ago, she now has new chest pain which was not present at that time (prior stress echo was for evaluation of symptom burden). As such, it is reasonable to repeatstress echo today. If stress echo is positive for ischemia, or if she has a negative stress echo but continuing symptoms, she may need cardiac catheterization in the future. 1. Chest Pain: - Check third troponin - Repeat stress echo today - If negative and remaining chest pain-free, will discharge with close cardiology follow up 2. SVT: - Convert to short-acting diltiazem for today, resume long-acting diltiazem with [id number] at discharge Signature: Ronnie Granger MD Date: April 17, 2018 Time: 4:50 PM Cardiology S1, #[id number] Cardiology Staff Addendum I have seen the patient and reviewed Dr. Granger's above history and I agree with the details aswritten. The assessment and plan were formulated in discussion with me and I agree with them as documented. In brief, this is an active, 57-year-old female with a history of supraventricular tachycardia controlled with oral diltiazem as well as moderate severity bicuspid aortic stenosis, who presents with a chest pain syndrome beginning yesterday but becoming most severe in the [facility] [place] hours today. She ended up presenting to the ED at 2:30 in the morning but pain seemed to resolve spontaneously after presentation. She was treated with aspirin and a an ECG during pain showed minimal ST segment depression in the anterolateral leads. Her troponins were negative up to 8 hours after pain onset. Of note she had a stress echocardiogram in September of this year which revealed moderate aortic stenosis and no evidence of ischemia. Her exam today is significant for a 2/6 to 3/6 systolic murmur but is otherwise unremarkable as perDr. Granger's note. Our plan will be to perform another stress echo today to evaluate this new symptom of chest discomfort. If it is positive we will followed up with a cardiac catheterization tomorrow, if negative we would consider her a candidate for discharge. Mason Trujillo MD documented in this encounter Plan of Treatment Upcoming Encounters Date Type Department Care Team (Latest Contact Info) Description 12/25/2023 9:[address] [place] [address] Xavier Malhotra MD [facility] [place] [address] 12/29/2023 Hospital Encounter [place] [address] Xavier Malhotra MD [facility] [place] [address] Paroxysmal atrial fibrillation 12/29/2023 7:30 AM EDT - 12/29/2023 12:00 PM EDT Surgery [place] [phone] Xavier Mahlotra MD [facility] [place] [address] ELECTROPHYSIOLOGY PROCEDURE 01/14/2024 10:40 AM EDT Office Visit Cardiology at [address] [phone] Carmen Castaneda PA [facility] [place] [address] Scheduled Procedures Name Priority Associated Diagnoses Date/Ti me TRANSESOPHAGEAL ECHO DURING CATH/EP PROCEDURE Paroxysmal atrial fibrillation 12/29/2023 7:30 AM EDT documented as of this encounter Procedures Procedure Name Priority Date/Time Associated Diagnosis Comments STRESS ECHO W CONTRAST W LMTD SPEC DOPP COLOR DOPP Routine 04/17/2018 3:05 PM EST Chest pain, unspecified type HEMOGRAM STAT 04/17/2018 12:45 PM EST DIFFERENTIAL, AUTOMATED STAT 04/17/2018 12:45 PM EST APTT STAT 04/17/2018 12:45 PM EST PROTHROMBIN TIME STAT 04/17/2018 12:4 5 PM EST CBC (WITH DIFF) STAT 04/17/2018 12:45 PM EST TROPONIN STAT 04/17/2018 12:45 PM EST PRO-BRAIN NATRIURETIC PEPTIDE STAT 04/17/2018 12:45 PM EST MAGNESIUM STAT 04/17/2018 12:45 PM EST LIPASE STAT 04/17/2018 12:45 PM EST BASIC METABOLIC PANEL STAT 04/17/2018 12:45 PM EST EKG 12-LEAD STAT 04/17/2018 12:27 PM EST Aortic valve disorder Chest pain, unspecified type documented in this encounter Results * STRESS ECHO W CONTRAST W LMTD SPEC DOPP COLOR DOPP (04/17/2018 3:05 PM EST) EF 65 HEARTLAB SYSTEM Anatomical Region Laterality Modality Other 04/17/2018 Narrative 04/17/2018 3:47 PM EST Procedure: ?Stress Echocardiogram Patient: ?SRIDHAR Velázquez ? (Age): 1960(57y) Med Rec#: ? [id number] ?Sex: ?F ? Site Loc: ? [facility] [place] ?Ht / Wt: ??166(cm)/59(kg) Pt. Loc: ?Echo Lab ?BSA: ?1.65 Study Date: ?? 04/17/2018 ?Pt. Type: Tape: ? Referring: JULICERYEVGENIY Referring: Mason Trujillo Reading: Stoney Lang ([id number]) Human Resources Operations Director: Lisy Torres Chicken Picker: Nilda Lindsey Interpreting Fellow: Nakul Zarco ??([id number]) Interpreting Fellow: Matthew Simms V. ([id number]) Diagnosis: *Chest pain, unspecified (R07.9) Stage ? BP ?HR ? Rest ?128/82 ?93 ? Peak ?188/88 ?146 ? Recovery ?136/78 ?87 ? SUMMARY: 1. REST: The ECG shows sinus rhythm at 76 bpm with no pathologic Q waves and no ST depression. The LV is normal in size and systolic function. The aortic valve is not well seen but appears bicuspid with Doppler evidence of moderate stenosis (estimated SUDHAKAR of 1.3 cm2). 2. STRESS: ??The pericardium appears normal and there is no evidence of a pericardial effusion. The patient achieved a level of 12 METs (greater than 150% of predicted). The blood pressure response was normal. The patient did not express feelings of chest discomfort. There were no significant ST segment changes. ??On echo, all wall segments augmented. 3. CONCLUSION: ??This was a negative echocardiographic stress test. Findings Rest: Left Ventricle: ? Left ventricular chamber size, wall thickness, global and segmental systolic function are within normal limits. Ejection fraction is estimated to be 65%. Right Ventricle: ? Right ventricular chamber size, wall thickness, and systolic function are within normal limits. Aortic Valve: ? The aortic valve appears bicuspid. ?The aortic valve leaflets are moderately thickened. ?Systolic excursion of the aortic valve cusps is reduced. ?There is aortic annular calcification. ?The peak instantaneous trans-valvular gradient across ??the aortic valve is 46 mmHg. ?The mean trans-valvular gradient across ??the aortic valve is 24 mmHg. ?The calculated aortic valve area is 1.29 cm2. ?There is moderate aortic valve stenosis. ?Mild (1+/4+) aortic valve regurgitation is present. Mitral Valve: ? The mitral valve appears normal in structure and function. ?There is trace mitral regurgitation present. Tricuspid Valve: ? The tricuspid valve appears normal in structure and function. ?There is trace tricuspid regurgitation present. Pericardium: ? The pericardium appears normal and there is no evidence of a pericardial effusion. Stress: ? EKG: normal sinus rhythm. ?EKG: nondiagnostic ST-T changes. ?EKG: Premature atrial contractions noted. ?EKG: SVT4 beat run nonsustained SVT at baseline ?The patient's oxygen saturation was 98% ?The patient is on an anti-hypertensive; ??( ) hours since taken. ?The patient is taking a lipid lowering agent. ?The patient is taking a calcium channel jessa. ?The patient is taking aspirin. ?The patient is taking an anti-platelet medication. Misc: ? Other echo and stress findings as noted in report. ?Definity contrast (one 1.5 ml vial)was used to enhance endocardial definition. Excess contrast was discarded. ?Stress echo, limited spectral Doppler, color Doppler and ECG interpretation performed. Findings Peak: Predicted Values:The patient achieved a maximum heart rate of 146 which is 90% of the maximum predicted heart rate (163 beats/min). ??The target heart rate was achieved. Left Ventricle: ? Global left ventricular systolic function appears hyperdynamic. Stress: ? Patient followed a Stoney protocol. ?The patient exercised into stage 4. ?The total exercise duration was:10:20 ?The study was terminated because of fatigue. ?The patient did not express feelings of chest discomfort. ?The blood pressure response was normal. ?Exercise capacity was good. ?The patient achieved a level of 12 METS. ?There were single atrial premature contractions. ?There were rare ventricular premature beats. ?There were no significant ST segment changes. ?This was a negative electrocardiographic stress test for ischemia. ?This was a negative echocardiographic stress test. ?EKG: sinus tachycardia. ?The patient's oxygen saturation was 97% Findings Recovery: Stress: ? EKG: normal sinus rhythm. ?EKG: Premature atrial contractions noted. Diastolic/Systolic Function ?Value ?Units (Range) ? MV E-wave Vmax ?0.5 ?m/sec ? MV deceleration idwc306.9 ?msec ? MV A-wave Vmax ?0.7 ?m/sec ? MV E:A ratio ?0.7 ?ratio ? LV septal e' Vmax ?? 0.1 ?m/sec ? LV lateral e' Vmax ??0.1 ?m/sec ? LV E:e' septal ratio6.1 ?ratio ? LV E:e' lateral rati7 ?ratio ? Aortic Valve ?Value ?Units (Range) ? AV Vmax ? 3.4 ?m/sec ? AV VTI ?63.3 ? cm ? AV peak gradient ?46 ? mmHg ? AV mean gradient ?24 ? mmHg ? LVOT diameter ? 2.2 ?cm ? LVOT Vmax ? 1.1 ?m/sec ? LVOT VTI ?26.2 ? cm ? LVOT peak gradient ??4.9 ?mmHg ? LVOT mean gradient ??2.7 ?mmHg ? DOI (VTI) ? 0.4 ?ratio ? DOI (Vmax) ?0.3 ?ratio ? SV LVOT ? 103.2 ?ml ? CO LVOT ? 9.6 ?l/min ? Cardiac index ? 5.8 ?l/min/m2 ? SUDHAKAR (continuity Vmax1.3 ?cm2 ? SUDHAKAR (continuity Vmax0.8 ?cm2/m2 ? SUDHAKAR (continuity VTI)1.6 ?cm ? SUDHAKAR (continuity VTI)1 ?cm2/m2 ? Wall Motion: Segment Name ?Rest ? Peak ? Base-Anteroseptal ?? Normal ? Normal ? Base-Anterior ? Normal ? Normal ? Base-Anterolateral ??Normal ? Normal ? Base-Posterolateral Normal ? Normal ? Base-Inferior ? Normal ? Normal ? Base-Inferoseptal ?? Normal ? Normal ? Mid-Anteroseptal ?Normal ? Normal ? Mid-Anterior ?Normal ? Normal ? Mid-Anterolateral ?? Normal ? Normal ? Mid-Posterolateral ??Normal ? Normal ? Mid-Inferior ?Normal ? Normal ? Mid-Inferoseptal ?Normal ? Normal ? Raven[place]-Septal ? Normal ? Normal ? Raven[place]-Anterior ? Normal ? Normal ? Raven[place]-Lateral ?Normal ? Normal ? Raven[place]-Inferior ? Normal ? Normal ? [place]-Tip ?Normal ? Normal ? This report has been electronically signed by: Stoney Lang M.D. ? 04/17/2018 15:47:14 Images reviewed and interpretation verified [facility] Cardiac Ultrasound [facility] Procedure Note Stoney Lang MD - 04/17/2018 Procedure: Stress Echocardiogram Patient: SRIDHAR Velázquez DOB(Age): 1960(57y) Med Rec#: [id number] Sex: F Site Loc: [facility] [place] Ht / Wt: 166(cm)/59(kg) Pt. Loc: Echo Lab BSA: 1.65 Study Date: 04/17/2018 Pt. Type: Tape: Referring: RADHA Referring: Mason Trujillo Reading: Stoney Lang ([id number]) Human Resources Operations Director: Lisy Torres Chicken Picker: Nilda Lindsey Interpreting Fellow: Nakul Zarco ([id number]) Interpreting Fellow: Matthew Simms V. ([id number]) Diagnosis: *Chest pain, unspecified (R07.9) Stage BP HR Rest 128/82 93 Peak 188/88 146 Recovery 136/78 87 SUMMARY: 1. REST: The ECG shows sinus rhythm at 76 bpm with no pathologic Q waves and no ST depression. The LV is normal in size and systolic function. The aortic valve is not well seen but appears bicuspid with Doppler evidence of moderate stenosis (estimated SUDHAKAR of 1.3 cm2). 2. STRESS: The pericardium appears normal and there is no evidence of a pericardial effusion. The patient achieved a level of 12 METs (greater than 150% of predicted). The blood pressure response was normal. The patient did not express feelings of chest discomfort. There were no significant ST segment changes. On echo, all wall segments augmented. 3. CONCLUSION: This was a negative echocardiographic stress test. Findings Rest: Left Ventricle: Left ventricular chamber size, wall thickness, global and segmental systolic function are within normal limits. Ejection fraction is estimated to be 65%. Right Ventricle: Right ventricular chamber size, wall thickness, and systolic function are within normal limits. Aortic Valve: The aortic valve appears bicuspid. The aortic valve leaflets are moderately thickened. Systolic excursion of the aortic valve cusps is reduced. There is aortic annular calcification. The peak instantaneous trans-valvular gradient across the aortic valve is 46 mmHg. The mean trans-valvular gradient across the aortic valve is 24 mmHg. The calculated aortic valve area is 1.29 cm2. There is moderate aortic valve stenosis. Mild (1+/4+) aortic valve regurgitation is present. Mitral Valve: The mitral valve appears normal in structure and function. There is trace mitral regurgitation present. Tricuspid Valve: The tricuspid valve appears normal in structure and function. There is trace tricuspid regurgitation present. Pericardium: The pericardium appears normal and there is no evidence of a pericardial effusion. Stress: EKG: normal sinus rhythm. EKG: nondiagnostic ST-T changes. EKG: Premature atrial contractions noted. EKG: SVT4 beat run nonsustained SVT at baseline The patient's oxygen saturation was 98% The patient is on an anti-hypertensive; ( ) hours since taken. The patient is taking a lipid lowering agent. The patient is taking a calcium channel jessa. The patient is taking aspirin. The patient is taking an anti-platelet medication. Misc: Other echo and stress findings as noted in report. Definity contrast (one 1.5 ml vial)was used to enhance endocardial definition. Excess contrast was discarded. Stress echo, limited spectral Doppler, color Doppler and ECG interpretation performed. Findings Peak: Predicted Values:The patient achieved a maximum heart rate of 146 which is 90% of the maximum predicted heart rate (163 beats/min). The target heart rate was achieved. Left Ventricle: Global left ventricular systolic function appears hyperdynamic. Stress: Patient followed a Stoney protocol. The patient exercised into stage 4. The total exercise duration was:10:20 The study was terminated because of fatigue. The patient did not express feelings of chest discomfort. The blood pressure response was normal. Exercise capacity was good. The patient achieved a level of 12 METS. There were single atrial premature contractions. There were rare ventricular premature beats. There were no significant ST segment changes. This was a negative electrocardiographic stress test for ischemia. This was a negative echocardiographic stress test. EKG: sinus tachycardia. The patient's oxygen saturation was 97% Findings Recovery: Stress: EKG: normal sinus rhythm. EKG: Premature atrial contractions noted. Diastolic/Systolic Function Value Units (Range) MV E-wave Vmax 0.5 m/sec MV deceleration [id number] msec MV A-wave Vmax 0.7 m/sec MV E:A ratio 0.7 ratio LV septal e' Vmax 0.1 m/sec LV lateral e' Vmax 0.1 m/sec LV E:e' septal ratio6.1 ratio LV E:e' lateral rati7 ratio Aortic Valve Value Units (Range) AV Vmax 3.4 m/sec AV VTI 63.3 cm AV peak gradient 46 mmHg AV mean gradient 24 mmHg LVOT diameter 2.2 cm LVOT Vmax 1.1 m/sec LVOT VTI 26.2 cm LVOT peak gradient 4.9 mmHg LVOT mean gradient 2.7 mmHg DOI (VTI) 0.4 ratio DOI (Vmax) 0.3 ratio SV LVOT 103.2 ml CO LVOT 9.6 l/min Cardiac index 5.8 l/min/m2 SUDHAKAR (continuity Vmax1.3 cm2 SUDHAKAR (continuity Vmax0.8 cm2/m2 SUDHAKAR (continuity VTI)1.6 cm SUDHAKAR (continuity VTI)1 cm2/m2 Wall Motion: Segment Name Rest Peak Base-Anteroseptal Normal Normal Base-Anterior Normal Normal Base-Anterolateral Normal Normal Base-Posterolateral Normal Normal Base-Inferior Normal Normal Base-Inferoseptal Normal Normal Mid-Anteroseptal Normal Normal Mid-Anterior Normal Normal Mid-Anterolateral Normal Normal Mid-Posterolateral Normal Normal Mid-Inferior Normal Normal Mid-Inferoseptal Normal Normal Ravenel-Septal Normal Normal Ravenel-Anterior Normal Normal Ravenel-Lateral Normal Normal Ravenel-Inferior Normal Normal Raven[place]-Tip Normal Normal This report has been electronically signed by: Stoney Lang M.D. 04/17/2018 15:47:14 Images reviewed and interpretation verified [facility]ound [facility] Mason Trujillo II, MD ECHO ORDERABLES * Lipase (04/17/2018 12:45 PM EST) Pathologist [facility] Lipase 19 0 - 60 unit/L [facility] Blood specimen (specimen) Venous Draw / Unknown 04/17/2018 12:45 PM EST 04/17/2018 3:52 PM EST Narrative Resulting Agency Comment Spec In Lab Ronnie Granger MD CHEMISTRY TONJA SUAREZ [facility] [place] [address] * Troponin (04/17/2018 12:45 PM EST) Pathologist [facility] Troponin-T <0.01 0.00 - 0.00 ng/mL [facility] Comment: The 99th percentile for Troponin T is less than 0.01 ng/mL, any detectable cTnT concentration using this assay should be considered elevated. According to the third universal definition of myocardial infarction the following criteria with a clinical presentation consistent with acute myocardial ischemia meets the diagnosis for a myocardial infarction (MT). Detection of a rise and/or fall of cTnT, with at least one value greater than the 99th percentile (> or = 0.01) and with at least one of the following ?? Symptoms of ischemia ?? New or presumed new significant HW-lkuvlet-I wave (ST-T) changes or new left bundle branch block (LBBB) ?? Development of pathologic Q waves in the ECG ?? Imaging evidence of new loss of viable myocardium or new regional wall motion abnormality ?? Identification of an intracoronary thrombus by angiography or autopsy Samples for cTnT testing should be obtained serially upon first assessment and again 3 to 6 hours later. If the clinical suspicion is high and previous samples have been negative an additional sample may be indicated. Reference: Third [place] Definition of Myocardial Infarction. Journal of the [place] [employer] 2012;60:1581-98 Blood specimen (specimen) Venous Draw / Unknown 04/17/2018 12:45 PM EST 04/17/2018 1:03 PM EST Narrative Resulting Agency Comment Spec In Lab Mathtew Poon MD CHEMISTRY ORDERABLE S [facility] [place] [address] * Differential, Automated (04/17/2018 12:45 PM EST) Neutrophil % 57.7 % [facility] Neutrophil Absolute 3.33 1.70 - 6.10 x10(3)/[facility] Lymph % 29.2 % [facility] Lymphocytes Abs 1.7 0.9 - 3.2 x10(3)/[facility] Monocyte % 9.7 % [facility] Monocyte Abs 0.6 0.3 - 0.9 x10(3)/[facility] Eos % 1.9 % [facility] Eosinophils Abs 0.1 0.0 - 0.4 x10(3)/[facility] Basophil % 1.2 % [facility] Baso Absolute 0.1 0.0 - 0.1 x10(3)/[facility] Immature Gran % 0.30 % [facility] Comment: Immature granulocytes(IG's)percentage and absolute count will include metamyelocytes, myelocytes, and promyelocytes. Blood smears from CBCs yielding IG's will be scanned manually for concordance. If this scan disagrees with the automated IG or if promyelocytes are noted, a manual differential will be performed. Immature Gran Absolute 0.02 0.00 - 0.04 x10(3)/[facility] Blood specimen (specimen) 04/17/2018 12:45 PM EST 04/17/2018 12:54 PM EST Narrative Resulting Agency Comment Spec In Lab Matthew Poon MD HEMATOLOGY ORDERABL ES [facility] [place] [address] * (ABNORMAL) Hemogram (04/17/2018 12:45 PM EST) White Blood Cell 5.8 4.0 - 9.5 x10(3)/[facility] Red Blood Cell 4.51 4.00 - 5.21 x10(6)/ L [facility] Hemoglobin 15.2 11.7 - 15.5 gm/dL [facility] Hematocrit 43.6 35.7 - 45.8 % [facility] Mean Cell Volume 96.7(H) 82.6 - 94.[address] [facility] Mean Cell Hemoglobin 33.7(H) 27.1 - 32.[address] [facility] Mean Cell Hemoglobin Concentration 34.9 31.7 - 35.0 gm/dL [facility] Platelet 269 145 - 357 x10(3)/ L [facility] RDW Standard Deviation 39.7 37.0 - 46.[address] [facility] RDW coefficient of variation 11.1(L) 11.5 - 14.1 % [facility] Mean Platelet Volume 9.3 7.6 - 12.[address] [facility] NRBC% auto 0.0 % [facility] NRBC Absolute 0.000 0.000 - 0.000 x10(3)/mc L [facility] Blood specimen (specimen) 04/17/2018 12:45 PM EST 04/17/2018 12:54 PM EST Narrative Resulting Agency Comment Spec In Lab Matthew Poon MD HEMATOLOGY ORDERABL ES Performing Organization Address [facility] Co de Phone Number [facility] [place] [address] * APTT (04/17/2018 12:45 PM EST) Partial Thromboplastin Time 28 25 - [address] [facility] Comment: The PTT is NOT appropriate for heparin monitoring. Use the Anti-Xa level for heparin monitoring (HEP UFH) or LMWH monitoring (HEP LMW). A PTT less than 37 seconds generally indicates adequate hemostasis. Blood specimen (specimen) 04/17/2018 12:45 PM EST 04/17/2018 12:54 PM EST Narrative Resulting Agency Comment Spec In Lab Mason Trujillo II, MD HEMATOLOGY TONJA SUAREZ Performing Organization Address [facility] Co de Phone Number [facility] [place] [address] * Prothrombin Time (04/17/2018 12:45 PM EST) Prothrombin Time 11.2 9.4 - 12.[address] [facility] International Normalization Ratio 1.0 [facility] Comment: An INR [...] depending on clinical circumstances. Blood specimen (specimen) 04/17/2018 12:45 PM EST 04/17/2018 12:54 PM EST Narrative Resulting Agency Comment Spec In Lab Mason Trujillo II, MD HEMATOLOGY TONJA CAROLINSUNDAY [facility] [place] [address] * pro-Brain Natriuretic Peptide (04/17/2018 12:45 PM EST) NT-proBNP 104 <=125 pg/mL [facility] Blood specimen (specimen) 04/17/2018 12:45 PM EST 04/17/2018 12:54 PM EST Narrative Resulting Agency Comment Spec In Lab Mason Trujillo II, MD CHEMISTRY ORDER ZAMZAM Performing Organization Address [facility] Co de Phone Number [facility] [place] [address] * Magnesium (04/17/2018 12:45 PM EST) Magnesium 0.83 0.69 - 1.07 mmol/L [facility] Blood specimen (specimen) 04/17/2018 12:45 PM EST 04/17/2018 12:54 PM EST Narrative Resulting Agency Comment Spec In Lab Mason Trujillo II, MD CHEMISTRY ORDER ZAMZAM Performing Organization Address City/[facility]/ZIP Co de Phone Number [facility] [place] [address] * (ABNORMAL) Basic Metabolic Panel (non-fasting) (04/17/2018 12:45 PM EST) Glucose 95 65 - 199 mg/dL [facility] Comment:Diabetes: >=200 mg/d L plus symptoms Blood Urea Nitrogen 10 8 - 18 mg/dL [facility] Creatinine 0.68(L) 0.70 - 1.20 mg/dL [facility] Sodium 141 135 - 145 mmol/L [facility] Potassium 4.0 3.5 - 5.0 mmol/L [facility] Comment: Please note: ??Patients with WBC >100,000 may have falsely elevated Potassium levels. ??For accurate Potassium quantification in these patients send serum separator tube (gold top) for subsequent determinations. ??Contact the Clinical Chemistry Laboratory if there are any questions. Chloride 106 98 - 107 mmol/L [facility] Carbon Dioxide 23 22 - 31 mmol/L [facility] Anion Gap 12 5 - 15 mmol/L [facility] Calcium 9.5 8.5 - 10.5 mg/dL [facility] Est Glomerular Filtration Rate 97 >=60 mL/min/1. 73 m?? [facility] Comment: The eGFR was calculated using the CKD-EPI equation. As with all creatinine based estimates of kidney function, eGFR values calculated with the CKD-EPI equation are not accurate in patients with acute kidney failure, extremes of body mass or the acutely ill. [email or web address] eGFR 113 >=60 mL/min/1. 73 m?? [facility] Comment: The eGFR was calculated using the CKD-EPI equation. As with all creatinine based estimates of kidney function, eGFR values calculated with the CKD-EPI equation are not accurate in patients with acute kidney failure, extremes of body mass or the acutely ill. [email or web address] Blood specimen (specimen) 04/17/2018 12:45 PM EST 04/17/2018 12:54 PM EST Narrative Resulting Agency Comment Spec In Lab Mason Trujillo II, MD CHEMISTRY ORDER ZAMZAM [facility] [place] [address] * EKG 12 Lead (04/17/2018 12:27 PM EST) Ventricular rate 73 BPM MUSE SYSTEM Atrial Rate 73 BPM MUSE SYSTEM P-R Interval 124 ms MUSE SYSTEM QRS Duration 90 ms MUSE SYSTEM Q-T Interval 414 ms MUSE SYSTEM QTC Calculated (Bezfanny) 456 ms MUSE SYSTEM Calculated P Julian 63 degrees MUSE SYSTEM Calculated R Julian 23 degrees MUSE SYSTEM Calculated T Julian 33 degrees MUSE SYSTEM INTERPRETATION Normal sinus rhythm Normal ECG When compared with ECG of 17-SEP-2017 14:29, No significant change was found Confirmed by MD LANG BRUCE ([id number]) on 04/17/2018 7:52:00 PM MUSE SYSTEM 04/17/2018 12:2 7 PM EST 04/17/2018 7:52 PM EST Mason Trujillo II, MD ECG ORDERABLES MUSE SYSTEM documented in this encounter Visit Diagnoses Diagnosis Aortic valve disorder Aortic valve disorders Chest pain, unspecified type Chest pain Chest pain, unspecified Paroxysmal atrial fibrillation Atrial fibrillation Paroxysmal atrial fibrillation Atrial fibrillation documented in this encounter Admitting Diagnoses Diagnosis Chest pain Chest pain, unspecified documented in this encounter Administered Medications Inactive Administered Medications - up to 3 most recent administrations Medication Order MAR Action Action Date Dose Rate Site atorvastatin (LIPITOR) tablet 10 mg 10 mg, Oral, EVERY EVENING, First dose on Fri04/17/18 at 1400, Until Discontinued, Routine Given 04/17/2018 3:30 PM EST 10 mg dilTIAZem (CARDIZEM) tablet 45 mg 45 mg, Oral, EVERY 6 HOURS SCHEDULED, First dose on Fri04/17/18 at 1800, Until Discontinued, Routine Given 04/17/2018 5:04 PM EST 45 mg perflutren lipid microspheres (DEFINITY) injection 1.2 mL 1.2 mL, Intravenous, ONCE PRN, 1 dose, Starting on Fri04/17/18 at 1505, Until Fri04/17/18 at 1500, Other, Routine Given 04/17/2018 3:00 PM EST 1.2 mLs documented in this encounter Active and Recently Administered Medications Times are shown in EST. Scheduled Medication Order 04/15/2018 04/16/2018 04/17/2018 atorvastatin (LIPITOR) tablet 10 mg 10 mg, Oral, EVERY EVENING, First dose on Fri04/17/18 at 1400, Until Discontinued, Routine 1530 (Given - Provid er: Joselyn Coats RN) buPROPion (WELLBUTRIN XL) XL tablet 300 mg 300 mg, Oral, EVERY MORNING, First dose on Fri04/18/18 at 0700, Until Discontinued, DO NOT CRUSH OR OPEN, Routine dilTIAZem (CARDIZEM) tablet 45 mg 45 mg, Oral, EVERY 6 HOURS SCHEDULED, First dose on Fri04/17/18 at 1800, Until Discontinued, Routine 1704 (Given - Provid er: Joselyn Coats RN) heparin (Porcine) subcutaneous injection 5,000 Units 5,000 Units, Subcutaneous, EVERY 8 HOURS SCHEDULED, First dose on Fri04/17/18 at 1400, Until Discontinued, Routine 1528 (Not Given - Pr ovider: Joselyn Coats RN - Reason: Patient/family refused) sodium chloride 0.9 % flush 5 mL 5 mL, Intravenous, 2 TIMES DAILY, First dose on Fri04/17/18 at 1400, Until Discontinued, Routine 1429 (Not Given - Pr ovider: Joselyn Coats RN - Reason: See comment - Comment: flushed earlier) PRN Medication Order 04/15/2018 04/16/2018 04/17/2018 lidocaine (XYLOCAINE) 10 mg/mL (1 %) injection 3 mg 3 mg (0.3 mL), Subcutaneous, ONCE PRN, 1 dose, Starting on Fri04/17/18 at 1341, Until Fri04/17/18 at 1929, for discomfort with PIV insertion, Routine nitroGLYcerin (NITROSTAT) SL tablet 0.4 mg 0.4 mg, Sublingual, EVERY 5 MIN PRN, Starting on Fri04/17/18 at 1341, Until Fri04/17/18 at 1929, Chest pain, May repeat every 5 minutes for a total of three doses. Notify provider if chest pain not relieved with nitroglycerin. Do not administer nitroglycerin if the patient has received or taken phosphodiesterase (PDE-5) inhibitors such as sildenafil, tadalafil or vardenafil within the last 24 to 72 hours., Routine perflutren lipid microspheres (DEFINITY) injection 1.2 mL (COMPLETED) 1.2 mL, Intravenous, ONCE PRN, 1 dose, Starting on Fri04/17/18 at 1505, Until Fri04/17/18 at 1500, Other, Routine 1500 (Given - Provid er: Nilda Lindsey) sodium chloride 0.9 % flush 5-20 mL 5-20 mL, Intravenous, EVERY 1 MIN PRN, Starting on Fri04/17/18 at 1341, Until Fri04/17/18 at 1929, flush, Flush pertains to all indwelling lines. Flush per protocol found in the job aid using the link provided on this medication record., Routine documented in this encounter Care Teams Sewer Connector Relationship Specialty Start Date End Date Evelyne Hunt, LIGHT OUT EXAMINER [address] [place] [address] PCP - General Internal Medicine 09/23/17 documented as of this encounter
--- OUTSIDE RECORDS SUMMARY | 2023-12-01 02:19 | XMS_ITS | Encounter Summary ---
Author Organization [facility] Address [facility] [place] [address] Care Team Providers Care Tool Crib Supervisor Name Role Phone Evelyne Hunt Dat STEVEN Primary Care Provider [phone] Encounter Details Date Type Department Care Team (Late st Contact Info) Description 05/17/2019 Orders Only Cardiology at [address] [phone] Franklyn Toure MD [facility] [place] [address] SVT (supraventricular tachycardia) (Primary Dx); Chest pain, unspecified type Social [...] AM EDT [place]ment [place] [address] Xavier Malhotra MD [facility] [place] [address] 12/29/2023 Hospital Encounter Electrophys[place] [address] Xavier Malhotra MD [facility] [place] [address] Paroxysmal atrial fibrillation 12/29/2023 7:30 AM EDT - 12/29/2023 12:00 PM EDT Surgery Electrophys[place] [phone] Xavier Malhotra MD [facility] [place] [address] ELECTROPHYSIOLOGY PROCEDURE 01/14/2024 10:40 AM EDT Office Visit Cardiology at [address] [phone] Carmen Castaneda PA [facility] [place] [address] Scheduled Procedures Name Priority Associated Diagnoses Date/Ti me TRANSESOPHAGEAL ECHO DURING CATH/EP PROCEDURE Paroxysmal atrial fibrillation 12/29/2023 7:30 AM EDT documented as of this encounter Results * EKG 12 Lead (05/18/2019 8:14 AM EST) Ventricular rate 63 BPM MUSE SYSTEM Atrial Rate 63 BPM MUSE SYSTEM P-R Interval 124 ms MUSE SYSTEM QRS Duration 92 ms MUSE SYSTEM Q-T Interval 422 ms MUSE SYSTEM QTC Calculated (Bezet) 431 ms MUSE SYSTEM Calculated P Nelson 31 degrees MUSE SYSTEM Calculated R Nelson 42 degrees MUSE SYSTEM Calculated T Nelson 29 degrees MUSE SYSTEM INTERPRETATION Normal sinus [...] (supraventricular tachycardia)- Primary Other specified cardiac dysrhythmias Chest pain, unspecified type Paroxysmal atrial fibrillation Atrial fibrillation Paroxysmal atrial fibrillation Atrial fibrillation documented in this encounter Care Teams Tool Crib Supervisor Relationship Specialty Start Date End Date Evelyne Hunt APRN [address] [place] [address] PCP - General Internal Medicine 09/23/17 documented as of this encounter
--- OUTSIDE RECORDS SUMMARY | 2023-12-01 02:19 | XMS_ITS | Encounter Summary ---
Author Organization [facility] [place] [address] Care Team Providers Care User Interface Developer Name Role Phone Marilee Evelyne Daugherty APRN Primary Care Provider [phone] Encounter Details Date Type Department Care Team (Latest Contact Info) Description 07/12/2019 4:45 PM EDT Laboratory Appointment Lab at [place] [phone] Pelvic mass in female Social History Tobacco Use Types Packs/Day [...] 9:[address] [place] [address] Xavier Malhotra MD [facility] [place] [address] 12/29/2023 Hospital Encounter [place] [address] Xavier Malhotra MD [facility] [place] [address] Paroxysmal atrial fibrillation 12/29/2023 7:30 AM EDT - 12/29/2023 12:00 PM EDT Surgery [place] [phone] Xavier Malhotra MD [facility] [place] [address] ELECTROPHYSIOLOGY PROCEDURE 01/14/2024 10:40 AM EDT Office Visit Cardiology at [address] [phone] Carmen Castaneda PA [facility] CARDIOLOGY [place], [place] [phone] Scheduled Procedures Name Priority Associated Diagnoses Date/Ti me TRANSESOPHAGEAL ECHO DURING CATH/EP PROCEDURE Paroxysmal atrial fibrillation 12/29/2023 7:30 AM EDT documented as of this encounter Procedures Procedure Name Priority Date/Time Associated Diagnosis Comments ABORH RECHECK STATUS Routine 07/12/2019 5:17 PM EDT HEMOGRAM Routine 07/12/2019 5:17 PM EDT Pelvic mass in female DIFFERENTIAL, AUTOMATED Routine 07/12/2019 5:17 PM EDT Pelvic mass in female HC ANTIBODY DETECTION,CAPTURE-R Routine 07/12/2019 5:17 PM EDT Pelvic mass in female HC CREATININE Routine 07/12/2019 5:17 PM EDT Pelvic mass in female ABO/RH TYPING Routine 07/12/2019 5:17 PM EDT Pelvic mass in female HC CBC,PLT & AUTO DIFF Routine 07/12/2019 5:17 PM EDT Pelvic mass in female ANTIBODY SCREEN Routine 07/12/2019 5:17 PM EDT Pelvic mass in female HC UREA NITROGEN, SERUM Routine 07/12/2019 5:17 PM EDT Pelvic mass in female ELECTROLYTES PANEL Routine 07/12/2019 5: 17 PM EDT Pelvic mass in female documented in this encounter Results * ABORH Recheck Status (07/12/2019 5:17 PM EDT) ABORH Recheck Order Order Placed [facility] ABORH Type Recheck Complete [facility] Blood specimen (specimen) 07/12/2019 5:17 PM EDT 07/12/2019 5:19 PM EDT Narrative Resulting Agency Comment Spec In Lab Natalie Vallejo MD BLOOD BANK LAB ORDER ZAMZAM Performing Organization Address City/[facility]/ZIP Co de Phone Number [facility] [place] [address] * Antibody screen (07/12/2019 5:17 PM EDT) Ab Screen Interp Negative [facility] Expires at [id number] on: 07/23/2019 [facility] Comment: Corrected from 08/26/19 0:00:00 EDT [Unknown] on 07/15/19 14:09:50 EDT by Chery Cabrera Blood specimen (specimen) 07/12/2019 5:17 PM EDT 07/12/2019 5:19 PM EDT Narrative Resulting Agency Comment Spec In Lab Natalie Vallejo MD BLOOD BANK LAB ORDER ZAMZAM Performing Organization Address City/[facility]/ZIP Co de Phone Number [facility] [place] [address] * ABO/Rh Typing (07/12/2019 5:17 PM EDT) ABORH Type O Pos [facility] Blood specimen (specimen) 07/12/2019 5:17 PM EDT 07/12/2019 5:19 PM EDT Narrative Resulting Agency Comment Spec In Lab Natalie Vallejo MD BLOOD BANK LAB ORDER ZAMZAM [facility] [place] [address] * Differential, Automated (07/12/2019 5:17 PM EDT) [facility] Neutrophil % 65.3 % [facility] Neutrophil Absolute 4.64 1.70 - 6.10 x10(3)/[facility] Lymph % 22.4 % [facility] Lymphocytes Abs 1.6 0.9 - 3.2 x10(3)/[facility] Monocyte % 7.3 % [facility] Monocyte Abs 0.5 0.3 - 0.9 x10(3)/[facility] Eos % 3.4 % [facility] Eosinophils Abs 0.2 0.0 - 0.4 x10(3)/[facility] Basophil % 1.3 % [facility] Baso Absolute 0.1 0.0 - 0.1 x10(3)/[facility] Immature Gran % 0.30 % [facility] Comment: Immature granulocytes(IG's)percentage and absolute count will include metamyelocytes, myelocytes, and promyelocytes. Blood smears from CBCs yielding IG's will be scanned manually for concordance. If this scan disagrees with the automated IG or if promyelocytes are noted, a manual differential will be performed. Immature Gran Absolute 0.02 0.00 - 0.04 x10(3)/[facility] Blood specimen (specimen) 07/12/2019 5:17 PM EDT 07/12/2019 5:25 PM EDT Narrative Resulting Agency Comment Spec In Lab Natalie Vallejo MD HEMATOLOGY ORDERABLE S Performing Organization Address City/[facility]/ZIP Co de Phone Number [facility] [place] [address] * (ABNORMAL) Hemogram (07/12/2019 5:17 PM EDT) [facility] White Blood Cell 7.1 4.0 - 9.5 x10(3)/ L [facility] Red Blood Cell 4.43 4.00 - 5.21 x10(6)/ L [facility] Hemoglobin 14.8 11.7 - 15.5 gm/dL [facility] Hematocrit 43.3 35.7 - 45.8 % [facility] Mean Cell Volume 97.7(H) 82.6 - 94.4 fL [facility] Mean Cell Hemoglobin 33.4(H) 27.1 - 32.0 pg [facility] Mean Cell Hemoglobin Concentration 34.2 31.7 - 35.0 gm/dL [facility] Platelet 292 145 - 357 x10(3)/[facility] LABORATORY RDW Standard Deviation 40.3 37.0 - 46.0 fL [facility] RDW coefficient of variation 11.2(L) 11.5 - 14.1 % [facility] Mean Platelet Volume 9.6 7.6 - 12.9 fL [facility] NRBC% auto 0.0 % [facility] NRBC Absolute 0.000 0.000 - 0.000 x10(3)/[facility] Blood specimen (specimen) 07/12/2019 5:17 PM EDT 07/12/2019 5:25 PM EDT Narrative Resulting Agency Comment Spec In Lab Natalie Vallejo MD HEMATOLOGY ORDERABLE S [facility] [place] [address] * Electrolytes panel (07/12/2019 5:17 PM EDT) [facility] Sodium 141 135 - 145 mmol/L [facility] Potassium 3.5 3.5 - 5.0 mmol/L [facility] Comment: Please note: ??Patients with WBC >100,000 may have falsely elevated Potassium levels. ??For accurate Potassium quantification in these patients send serum separator tube (gold top) for subsequent determinations. ??Contact the Clinical Chemistry Laboratory if there are any questions. Chloride 101 98 - 107 mmol/L [facility] Carbon Dioxide 26 22 - 31 mmol/L [facility] Anion Gap 14 5 - 15 mmol/L [facility] Blood specimen (specimen) 07/12/2019 5:17 PM EDT 07/12/2019 5:25 PM EDT Narrative Resulting Agency Comment Spec In Lab Natalie Vallejo MD CHEMISTRY ORDERABLES Performing Organization Address City/[facility]/ZIP Co de Phone Number [facility] [place] [address] * Creatinine (07/12/2019 5:17 PM EDT) Creatinine 0.73 0.70 - 1.20 mg/dL [facility] Est Glomerular Filtration Rate 91 >=60 mL/min/1.7 3 m?? [facility] Comment: The eGFR was calculated using the CKD-EPI equation. As with all creatinine based estimates of kidney function, eGFR values calculated with the CKD-EPI equation are not accurate in patients with acute kidney failure, extremes of body mass or the acutely ill. http://[employer]/DHnkf eGFR 105 >=60 mL/min/1.7 3 m?? [facility] Comment: The eGFR was calculated using the CKD-EPI equation. As with all creatinine based estimates of kidney function, eGFR values calculated with the CKD-EPI equation are not accurate in patients with acute kidney failure, extremes of body mass or the acutely ill. http://[employer]/DHMCnkf Blood specimen (specimen) 07/12/2019 5:17 PM EDT 07/12/2019 5:25 PM EDT Narrative Resulting Agency Comment Spec In Lab Natalie Vallejo MD CHEMISTRY ORDERABLES Performing Organization Address City/[facility]/ZIP Co de Phone Number [facility] [place] [address] * BUN (07/12/2019 5:17 PM EDT) Blood Urea Nitrogen 12 8 - 18 mg/dL [facility] Blood specimen (specimen) 07/12/2019 5:17 PM EDT 07/12/2019 5:25 PM EDT Narrative Resulting Agency Comment Spec In Lab Natalie Vallejo MD CHEMISTRY ORDERABLES [facility] [place] [address] documented in this encounter Visit Diagnoses Diagnosis Pelvic mass in female Abdominal or pelvic swelling, mass or lump, unspecified site Paroxysmal atrial fibrillation Atrial fibrillation Paroxysmal atrial fibrillation Atrial fibrillation documented in this encounter Care Teams User Interface Developer Relationship Specialty Start Date End Date Evelyne Hunt APRN [address] [place] [address] PCP - General Internal Medicine 09/23/17 documented as of this encounter
--- OUTSIDE RECORDS SUMMARY | 2023-12-01 02:19 | XMS_ITS | Encounter Summary ---
Author Organization [facility] [place] [address] Care Team Providers Care Toy Maker Name Role Phone Evelyne Hunt APRN Primary Care Provider [phone] Encounter Details Date Type Department Care Team (Late st Contact Info) Description 04/17/2018 Telephone Cardiology at [address] [phone] Germaine Gtz APRN [facility] [place] [address] Social History Tobacco Use Types Packs/Day Years [...] encounter Miscellaneous Notes * Telephone Encounter - Germaine Gtz APRN - 04/17/2018 9:20 AM EST 04/17/2018 Gabi Luna Initial Contact Date: 04/17/2018 Initial contact time: 825 Referring Provider: Dr. Izquierdo Patient Location: [facility] Past Medical History: SVT Mixed aortic valve disease, SUDHAKAR 1.8 DOI 0.38 on Negative treadmill echo September 2017 -- EF 70% no WMAs Presenting Symptoms per OSH: Gabi Velázquez Cheryl is a 57 y.o. female with a pmh as above and noted keisha fairly active at baseline. She does not smoke and does not have diabetes. [facility] of atypical chest pain that started after 4 PM yesterday, she describes the pain as waxing and waning, however it was persistent enough to send her to the emergency department. She denies exertional symptoms prior to this episode. Her chest pain resolved before receiving nitroglycerin and therefore we do not know if this pain was responsive to nitrates. Troponin was negative x2, however they were subtle ST depressions while she was experiencing chest pain in thelateral leads compared to her prior EKG. Due to this outside hospital requested transfer as they are unable to perform an ischemic evaluation at this time. Pertinent Diagnostic Findings: ECG - initial SR with no sig ST segment changes, subsequent ECG with SR and mild ST depression of lateral leads Troponin negative x2 Other labs reported to be WNL BP 120/80, HR 83, 97% RA Past cardiac studies: Stress Echocardiogram - September 2017 SUMMARY: ?? 1. BASELINE: There is normal global left [...] a level of 11 METS, attaining peak CX=605 bpm, (94 % MPHR), and ritesh BP= [...] would be higher than measured blood pressure). OSH Interventions: Pain resolved prior to intervention. Plan: Discussed case with Dr. Trujillo as to whether or not this would be more appropriate for an outpatientworkup and are willing to accept should OSH provider feel that the patient needs to be admitted. OSH provider felt strongly that the patient should at least undergo a stress test and was reluctant to pursue further workup outpatient at this time. Accepted in transfer for ischemic evaluation. Germaine Gtz APRN Cardiovascular Medicine Pager [phone] 04/17/2018 documented in this encounter Plan of Treatment Upcoming Encounters Date Type Department Care Team (Latest Contact Info) Description 12/25/2023 9:[address] [place] [address] Xavier Malhotra MD [facility] [place] [address] 12/29/2023 Hospital Encounter [place] [address] Xavier Malhotra MD [facility] [place] [place] [address] Paroxysmal atrial fibrillation 12/29/2023 7:30 AM EDT - 12/29/2023 12:00 PM EDT Surgery [place] [address] Xavier Malhotra MD [facility] [place] [address] ELECTROPHYSIOLOGY PROCEDURE 01/14/2024 10:40 AM EDT Office Visit Cardiology at [address] [address] Carmen Castaneda PA [facility] [place] [address] Scheduled Procedures Name Priority Associated Diagnoses Date/Ti me TRANSESOPHAGEAL ECHO DURING CATH/EP PROCEDURE Paroxysmal atrial fibrillation 12/29/2023 7:30 AM EDT documented as of this encounter Visit Diagnoses Not on filedocumented in this encounter Care Teams Toy Maker Relationship Specialty Start Date End Date Evelyne Hunt APRN [address] [place] [address] PCP - General Internal Medicine 09/23/17 documented as of this encounter
--- OUTSIDE RECORDS SUMMARY | 2023-12-01 02:19 | XMS_ITS | Encounter Summary ---
Author Organization [facility] [place] [address] Care Team Providers Care Wall Covering Contractor Name Role Phone Evelyne Hunt Dat STEVEN Primary Care Provider [phone] Encounter Details Date Type Department Care Team (Late st Contact Info) Description 07/13/2019 11:45 AM EDT Clinical [place] [phone] Social History Tobacco Use Types Packs/Day Years [...] as of this encounter Progress Notes * Doretha Chan RN - 07/13/2019 11:45 AM EDT PAT questionnaire reviewed with patient via phone. Patient verbalizes a good understanding of all information reviewed. PLAN: Testing: Testing done 07/12/19, pt to have phone anesthesia consult today. Special medication instructions: Procedure date: Not booked documented in this encounter Plan of Treatment Upcoming Encounters Date Type Department Care Team (Latest Contact Info) Description 12/25/2023 9:[address] [place] [phone] Xavier Malhotra MD [facility] [place] [address] 12/29/2023 Hospital Encounter Electrophysiology Lab at [place] [address] Xavier Malhotra MD [facility] [place] [place] [address] Paroxysmal atrial fibrillation 12/29/2023 7:30 AM EDT - 12/29/2023 12:00 PM EDT Surgery Electrophysiology Lab at [place] [address] Xavier Malhotra MD [facility] [place] [place] [address] ELECTROPHYSIOLOGY PROCEDURE 01/14/2024 10:40 AM EDT Office Visit Cardiology at [place] [address] Carmen Castaneda PA [facility] [place] [address] Scheduled Procedures Name Priority Associated Diagnoses Date/Ti me TRANSESOPHAGEAL ECHO DURING CATH/EP PROCEDURE Paroxysmal atrial fibrillation 12/29/2023 7:30 AM EDT documented as of this encounter Visit Diagnoses Not on filedocumented in this encounter Care Teams Wall Covering Contractor Relationship Specialty Start Date End Date Evelyne Hunt APRN [address] [place] [address] PCP - General Internal Medicine 09/23/17 documented as of this encounter
--- OUTSIDE RECORDS SUMMARY | 2023-12-01 02:19 | XMS_ITS | Encounter Summary ---
Author Organization [facility] Address [address] [place] [address] Care Team Providers Care Meteorological Aide Name Role Phone Marilee Evelyne Daugherty ENGINEER GAS PUMPING STATION Primary Care Provider [phone] Encounter Details Date Type Department Care Team (Late st Contact Info) Description 11/21/2022 Lab Requisition [facility] Pathology & Laboratory Medicine - [facility] [address] [address], [place] [address] Outr Resulting Lab, Provider Social History Tobacco [...] Procedure Name Priority Date/Time Associated Diagnosis Comments LYME AB Routine 11/21/2022 9:00 EDT documented in this encounter Results * LYME AB (11/21/2022 9:00 EDT) Lyme Ab Negative Negative 11/22/2022 12:12 EDT [facility] Blood VENOUS BLOOD / Unknown 11/21/2022 9:00 EDT 11/21/2022 21:48 EDT Provider Outr Resulting Lab IMMUNOLOGY A ND SEROLOGY ORDERABLES [facility] [address] [place] [address] documented in this encounter Visit Diagnoses Not on filedocumented in this encounter Care Teams Meteorological Aide Relationship Specialty Start Date End Date Evelyne Hunt, MEERA [address] [place] [id number] PCP - General 08/19/19 documented as of this encounter
--- OUTSIDE RECORDS SUMMARY | 2023-12-01 02:19 | XMS_ITS | Encounter Summary ---
Author Organization [facility] Address [address] [place] [address] Care Team Providers Care Marketing Reps [employer] Entertainment Name Role Phone Evelyne Hunt SHIRT SORTER Primary Care Provider [phone] Encounter Details Date Type Department Care Team (Late st Contact Info) Description 05/21/2022 Lab Requisition [facility] Pathology & Laboratory Medicine - [facility] [address] [place], [place] [address] Outr Resulting Lab, Provider Social History Tobacco [...] Date/Time Associated Diagnosis Comments CA 125 Routine 05/21/2022 8:44 EST documented in this encounter Results * CA 125 (05/21/2022 8:44 EST) CA 125 7 <30 U/mL 05/22/2022 10:34 EST [facility] Comment: NOTE: Serum CA 125 concentration should not be interpreted as absolute evidence for the presence or absence of malignant disease. Assayed on Siemens ADVIA Centaur XPT using chemiluminescent technology. ??Values obtained by using different assay methods cannot be used interchangeably. Blood VENOUS BLOOD / Unknown 05/21/2022 8:44 EST 05/21/2022 16:39 EST Provider Outr Resulting Lab CHEMISTRY & BLOOD GAS ORDERABLES Performing Organization Address City/State/[facility] Co de Phone Number [facility] [address] [place] [address] documented in this encounter Visit Diagnoses Not on filedocumented in this encounter Care Teams Marketing [employer] Relationship Specialty Start Date End Date Evelyne Hunt, MEERA [address] [place] [address] PCP - General 08/19/19 documented as of this encounter
--- OUTSIDE RECORDS SUMMARY | 2023-12-01 02:19 | XMS_ITS | Encounter Summary ---
Author Organization [facility] Address [address] [place] [address] Care Team Providers Care Steel Roller Name Role Phone Evelyne Hunt MANAGER VISUAL Primary Care Provider [phone] Encounter Details Date Type Department Care Team (Late st Contact Info) Description 10/26/2021 Lab Requisition [facility] Pathology & Laboratory Medicine - [facility] [address], [place] [id number] Outr Resulting Lab, Provider Social History Tobacco [...] Date/Time Associated Diagnosis Comments CA 125 Routine 10/26/2021 12:20 EDT documented in this encounter Results * CA 125 (10/26/2021 12:20 EDT) CA 125 8 <30 U/mL 10/29/2021 9:00 EDT [facility] Comment: NOTE: Serum CA 125 concentration should not be interpreted as absolute evidence for the presence or absence of malignant disease. Assayed on Siemens ADVIA Centaur XPT using chemiluminescent technology. ??Values obtained by using different assay methods cannot be used interchangeably. Blood VENOUS BLOOD / Unknown 10/26/2021 12:20 EDT 10/26/2021 21:38 EDT Provider Outr Resulting Lab CHEMISTRY & BLOOD GAS ORDERABLES [facility] [address] [place] [address] documented in this encounter Visit Diagnoses Not on filedocumented in this encounter Care Teams Steel Roller Relationship Specialty Start Date End Date Evelyne Hunt NP [address] [place] [address] PCP - General 08/19/19 documented as of this encounter
--- OUTSIDE RECORDS SUMMARY | 2023-12-01 02:19 | XMS_ITS | Encounter Summary ---
[place] [address] Care Team Providers Care Wire Strander Name Role Phone Hanna Romo APRN Primary Care Provider [phone] Encounter Details Date Type Department Care Team (Late st Contact Info) Description 09/10/2013 10:05 AM EDT - 09/10/2013 11:59 PM EDT Hospital [place] [address] CLINIC, Mesfin Perdomo, DO [address] [place] [address] H/O: ; Intraabdominal fluid collection Discharge Disposition: Home Social History Tobacco Use Types Packs/Day Years Used Date Smoking Tobacco: Never Assessed Sex and Gender Information Value Date Recorded Sex Assigned at Not on file Gender Identity Not on file Sexual Orientation Not on file documented as of this encounter Last Filed Vital Signs Vital Sign Reading Time Taken Comments Blood Pressure 127/90 09/10/2013 11:00 AM EDT Pulse 66 09/10/2013 11:00 AM EDT Temperature 36.3 ??C (97.4 ??F) 09/10/2013 11:00 AM E DT Respiratory Rate 20 09/10/2013 11:00 AM EDT Oxygen Saturation 97% 09/10/2013 11:00 AM EDT Inhaled Oxygen Concentration - - Weight - - Height - - Body Mass Index - - documented in this encounter Medications at Time of Discharge Medication Sig Dispensed Refills Start Date End Date buPROPion (WELLBUTRIN XL) 150 mg 24 hr tablet Take 300 mg by mouth every morning. 05/18/2019 levothyroxine (SYNTHROID) 50 mcg tablet Take 50 mcg by mouth daily. 09/17/2017 fish oil-omega-3 fatty acids 1,000 mg capsule Take 2 g by mouth daily. 12/17/2017 multivitamin (THERAGRAN) tablet Take 1 tablet by mouth daily. 09/17/2017 loratadine (CLARITIN) 10 mg tablet Take 10 mg by mouth daily. 12/17/2017 documented as of this encounter Progress Notes * Nikolas Liao MD - 09/10/2013 10:26 AM EDT Pre-procedure VIR Exam Procedure: CT-guided RLQ abscess drain placement, moderate IV sedation Heart: RRR, no m/r/g Lungs: BS slightly decreased at right lung base, otherwise CTA. ASA Classification ___ Class 1 Healthy patient, no medical problems _x_ Class 2 Mild systemic disease ___ Class 3 Severe systemic disease, but not incapacitating ___ Class 4 Severe systemic disease that is a constant threat to life ___ Class 5 Moribund, not expected to live 24 hours irrespective of operation Mallampati Classification ___ Class I: soft palate, fauces, uvula, pillars _x_ Class II: soft palate, fauces, portion of uvula ___ Class III: soft palate, base of uvula ___ Class IV: hard palate only Informed consent obtained * Laure Hayes - 09/09/2013 5:10 PM EDT Images from the original note were not included. PRE-PROCEDURE VIR NOTE: PCP: HANNA ROMO APRN Referring Physician: Cristóbal Baldwin Planned Procedure: CT guided placement of drain in RLQ Procedure Indication: RLQ collection, s/p appendectomy Presenting Diagnosis/ Complaint: Mark Waller is a 52 y.o. female 2 weeks s/p appendectomy returned with pain, fever and chills. CT obtained in [facility] by report shows 5cm RLQ collection. Plan is to have pt come to [facility] for CT guided drain placement and then return to [facility] Allergies: Penicillins Physical Exam: Pending Labs: No labs available, will need to obtain CBC and Coags tomorrow. Prior Imaging: Assessment/Plan: 52 y.o. female 2 weeks s/p appendectomy with RLQ collection, plan to place of RLQ drain. Labs: CBC, Coags Prophylactic antibiotic: [none] Medications to discontinue (and when): [none] Patient Position: [supine] Access site: RLQ General Anesthesia: [no] LAURE HAYES MD * Tayler Medellin RN - 09/09/2013 2:56 PM EDT [facility] NURSING DATABASE Name: MARK WALLER Date of : 1960 AGE 52 y.o. Address: [address] [place] [id number] Phone: There are no phone numbers on file. Mobile: Telephone Information: Referring Provider: Cristóbal Baldwin Planned Procedure: CT guided drain placement. Chief Complaint/Diagnosis: 52 yo ~2 weeks s/p appendectomy returned with pain, fever and chills. CTobtained in [facility] by report shows 5cm RLQ collection. Plan is to have pt come to [facility] for CT guideddrain placement and then return to [facility]. Allergies Allergen Reactions ??? Penicillins CIS - Anaphylaxis Pertinent PMH: There is no problem list on file for this patient. Pertinent PSH: Date/Procedure Comments: 09/10/13 CT guided Drain Fentanyl 50 mcg IV Case canceled by No drain/aspiration needed Laboratory Results: No results found for this basename: inr No results found for this basename: PT, PTT No results found for this basename: BUN No results found for this basename: creatinine No results found for this basename: k No results found for this basename: PLATELET Medications: Prior to Admission medications Not on File For outpatient procedures: This patient has been informed that they require a high lift driver to drive them home after this procedure. In the absence of a high lift driver, IR will not be able to perform this procedureand will need to reschedule. Pt verbalized understanding of these instructions during the pre-procedure education via phone. documented in this encounter Miscellaneous Notes * Miscellaneous - Provider, Scanning - 09/22/2013 10:21 AM EDT documented in this encounter Plan of Treatment Upcoming Encounters Date Type Department Care Team (Latest Contact Info) Description 12/25/2023 9:[address] [place] [place] [phone] Xavier Malhotra MD [facility] [place] [address] 12/29/2023 Hospital Encounter [place] [phone] Xavier Malhotra MD [facility] [place] [address] Paroxysmal atrial fibrillation 12/29/2023 7:30 AM EDT - 12/29/2023 12:00 PM EDT Surgery [place] [phone] Xavier Malhotra MD [facility] [place] [address] ELECTROPHYSIOLOGY PROCEDURE 01/14/2024 10:40 AM EDT Office Visit Cardiology at [address] [phone] Camren Castaneda PA [facility] [place] [address] Scheduled Procedures Name Priority Associated Diagnoses Date/Ti me TRANSESOPHAGEAL ECHO DURING CATH/EP PROCEDURE Paroxysmal atrial fibrillation 12/29/2023 7:30 AM EDT documented as of this encounter Procedures Procedure Name Priority Date/Time Associated Diagnosis Comments CT PELVIS SOFT TISSUE (GI GROUND SURVEILLANCE SYSTEMS OPERATOR) WO CONTRAST Routine 09/10/2013 10:58 AM EDT documented in this encounter Results * CT pelvis WO contrast (09/10/2013 10:58 AM EDT) Anatomical Region Laterality Modality Pelvis Computed Tomogra phy 09/10/2013 10:5 8 AM EDT Narrative 09/10/2013 12:[address] Pelvis Without Contrast Clinical History RLQ abscess 2 weeks after appendectomy Comparison CT scan of September 09, 2013. Technique Noncontrast CT pelvis performed as part of localization for anticipated right lower quadrant drainage catheter placement. Findings Previously noted right lower quadrant fluid collection has decompressed. ?? Thickened soft tissue surrounding surgical clips. ??No apparent enteric contrast extravasation. ??No drainable fluid collection. Impression No drainable fluid collection. ??Previously noted fluid has decompressed. ??Mural thickening about right lower quadrant surgical clips may represent enteric wall or possibly phlegmonous material. Procedure Note Regi Michel MD - 09/10/[address] Pelvis Without Contrast Clinical History RLQ abscess 2 weeks after appendectomy Comparison CT scan of September 09, 2013. Technique Noncontrast CT pelvis performed as part of localization for anticipatedright lower quadrant drainage catheter placement. Findings Previously noted right lower quadrant fluid collection has decompressed. Thickened soft tissue surrounding surgical clips. No apparent entericcontrast extravasation. No drainable fluid collection. Impression No drainable fluid collection. Previously noted fluid has decompressed.Mural thickening about right lower quadrant surgical clips may represent entericwall or possibly phlegmonous material. Cristóbal Baldwin MD IMG CT ORDERABLES documented in this encounter Visit Diagnoses Diagnosis H/O: Other postprocedural status Intraabdominal fluid collection Other ascites Paroxysmal atrial fibrillation Atrial fibrillation Paroxysmal atrial fibrillation Atrial fibrillation documented in this encounter Administered Medications Inactive Administered Medications - up to 3 most recent administrations Medication Order MAR Action Action Date Dose Rate Site fentaNYL 50mcg/mL injection 25-50 mcg, Intravenous, EVERY 5 MIN PRN, Starting on Fri09/10/13 at 1003, Until Fri09/10/13 at 1118, Pain, per unit protocol, Angio/IR (Intra-Procedure), Routine Given 09/10/2013 11:15 AM EDT 50 mcg documented in this encounter Care Teams Wire Strander Relationship Specialty Start Date End Date Hanna Romo APRN [address] [place] [address] PCP - General 03/13/10 09/22/17 documented as of this encounter
--- OUTSIDE RECORDS SUMMARY | 2023-12-01 02:19 | XMS_ITS | Encounter Summary ---
Author Organization [facility] Address [address] [place] [address] Care Team Providers Care Crew Scheduler Name Role Phone Evelyne Hunt BRIM EDGE TRIMMER Primary Care Provider Encounter Details Date Type Department Care Team (Late st Contact Info) Description 03/22/2021 Lab Requisition [facility] Pathology & Laboratory Medicine - [facility] [address] [place], [place] [address] Outr Resulting Lab, Provider Social History Tobacco [...] Date/Time Associated Diagnosis Comments CA 125 Routine 03/22/2021 11:25 EST documented in this encounter Results * CA 125 (03/22/2021 11:25 EST) CA 125 7 <30 U/mL 03/23/2021 9:45 EST [facility] Comment: NOTE: Serum CA 125 concentration should not be interpreted as absolute evidence for the presence or absence of malignant disease. Assayed on Siemens ADVIA Centaur XPT using chemiluminescent technology. ??Values obtained by using different assay methods cannot be used interchangeably. Blood VENOUS BLOOD / Unknown 03/22/2021 11:25 EST 03/22/2021 17:22 EST Provider Outr Resulting Lab CHEMISTRY & BLOOD GAS ORDERABLES Performing Organization Address City/State/[facility] Co de Phone Number [facility] [address] [place] [address] documented in this encounter Visit Diagnoses Not on filedocumented in this encounter Care Teams Crew Scheduler Relationship Specialty Start Date End Date Evelyne Hunt, MEERA [address] [place] [address] PCP - General 08/19/19 documented as of this encounter
--- OUTSIDE RECORDS SUMMARY | 2023-12-01 02:19 | XMS_ITS | Encounter Summary ---
Author Organization [facility] [place] [address] Care Team Providers Care Analysis Or Research Safety Inspector Name Role Phone Marilee Evelyne Daugherty APRN Primary Care Provider [phone] Encounter Details Date Type Department Care Team (Late st Contact Info) Description 07/13/2019 12:00 PM EDT Office Visit Same Day at [place] [phone] Social History Tobacco Use Types Packs/Day Years [...] 9:[address] [place] [address] Xavier Malhotra MD [facility] [place] [address] 12/29/2023 Hospital Encounter [place] [address] Xavier Malhotra MD [facility] [address] [place] [id number] Paroxysmal atrial fibrillation 12/29/2023 7:30 AM EDT - 12/29/2023 12:00 PM EDT Surgery [place]rophys[place] [phone] Xavier Malhotra MD [facility] [address] ELECTROPHYSIOLOGY PROCEDURE 01/14/2024 10:40 AM EDT Office Visit Cardiology at [address] [phone] Carmen Castaneda PA [facility] [place] [address] Scheduled Procedures Name Priority Associated Diagnoses Date/Ti me TRANSESOPHAGEAL ECHO DURING CATH/EP PROCEDURE Paroxysmal atrial fibrillation 12/29/2023 7:30 AM EDT documented as of this encounter Visit Diagnoses Not on filedocumented in this encounter Care Teams Analysis Or Research Safety Inspector Relationship Specialty Start Date End Date Evelyne Hunt APRN [address] [place] [address] PCP - General Internal Medicine 09/23/17 documented as of this encounter
--- OUTSIDE RECORDS SUMMARY | 2023-12-01 02:19 | XMS_ITS | Encounter Summary ---
Author Organization [facility] [place] [address] Care Team Providers Care Software Test Manager Name Role Phone Evelyne Hunt Dat STEVEN Primary Care Provider [phone] Encounter Details Date Type Department Care Team (Late st Contact Info) Description 07/08/2019 3:45 PM EDT Ancillary Procedure [place] [address] Natalie Vallejo MD [facility] [place] [address] Social History Tobacco Use Types [...] 9:[address] [place] [address] Xavier Malhotra MD [facility] [place] [address] 12/29/2023 Hospital Encounter [place] [address] Xavier Malhotra MD [facility] [place] [address] Paroxysmal atrial fibrillation 12/29/2023 7:30 AM EDT - 12/29/2023 12:00 PM EDT Surgery [place] [phone] Xavier Malhotra MD [facility] [place] [address] ELECTROPHYSIOLOGY PROCEDURE 01/14/2024 10:40 AM EDT Office Visit Cardiology at [address] [phone] Carmen Castaneda PA [facility] [place] [address] Scheduled Procedures Name Priority Associated Diagnoses Date/Ti me TRANSESOPHAGEAL ECHO DURING CATH/EP PROCEDURE Paroxysmal atrial fibrillation 12/29/2023 7:30 AM EDT documented as of this encounter Procedures Procedure Name Priority Date/Time Associated Diagnosis Comments FILM LIBRARY STORAGE ONLY CT ABDOMEN AND PELVIS Routine 07/08/2019 3:42 PM EDT documented in this encounter Results * Film Library- Storage Only CT Abdomen & Pelvis (07/08/2019 3:42 PM EDT) Narrative [facility] - 07/08/2019 3:42 PM EDT This exam is auto-finalizing. It's purpose is for storage only. Natalie Vallejo MD IMG FILM LIBRARY ORD ERABLES [place], [place] documented in this encounter Visit Diagnoses Not on filedocumented in this encounter Care Teams Software Test Manager Relationship Specialty Start Date End Date Evelyne Hunt APRN [address] [place] [address] PCP - General Internal Medicine 09/23/17 documented as of this encounter
--- OUTSIDE RECORDS SUMMARY | 2023-12-01 02:19 | XMS_ITS | Encounter Summary ---
Author Organization [facility] Address [facility] [place] [address] Care Team Providers Care Lead Electrical Controls Engineer Name Role Phone MarileeEvelyne APRN Primary Care Provider [phone] Encounter Details Date Type Department Care Team (Late st Contact Info) Description 07/12/2019 4:30 PM EDT Clinical Support Same Day at [facility] [place] [phone] Social History Tobacco Use Types Packs/Day Years [...] as of this encounter Progress Notes * Flaco Steven, RN - 07/12/2019 4:30 PM EDT Patient given abbreviated Pre Anesthesia screening questionnaire, while in Pre Admission testing. Reviewed answers with patient. Pre-operative instruction booklet reviewed. Patient verbalizes a good understanding of all information reviewed. Anesthesia consult was requested today so we I will leave a note for them tomorrow for perhaps a phone consult as patient does live 90+ minutes away. 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 PLAN: Testing: T&S and blood work Procedure date: No booking at this time with Yoni. documented in this encounter Plan of Treatment Upcoming Encounters Date Type Department Care Team (Latest Contact Info) Description 12/25/2023 9:[address] Scan at [place] [phone] Xavier Malhotra MD [facility] [place] [address] 12/29/2023 Hospital Encounter Electrophysiology Lab at [place] [address] Xavier Malhotra MD [facility] [address] [place] [address] Paroxysmal atrial fibrillation 12/29/2023 7:30 AM EDT - 12/29/2023 12:00 PM EDT Surgery Electrophysiology Lab at [place] [phone] Xavier Malhotra MD [facility] [place] [address] ELECTROPHYSIOLOGY PROCEDURE 01/14/2024 10:40 AM EDT Office Visit Cardiology at [place] [address] Carmen Castaneda PA [facility] [place] [address] Scheduled Procedures Name Priority Associated Diagnoses Date/Ti me TRANSESOPHAGEAL ECHO DURING CATH/EP PROCEDURE Paroxysmal atrial fibrillation 12/29/2023 7:30 AM EDT documented as of this encounter Visit Diagnoses Not on filedocumented in this encounter Care Teams Lead Electrical Controls Engineer Relationship Specialty Start Date End Date Evelyne Hunt APRN [address] [place] [address] PCP - General Internal Medicine 09/23/17 documented as of this encounter
--- OUTSIDE RECORDS SUMMARY | 2023-12-01 02:19 | XMS_ITS | Encounter Summary ---
Author Organization [facility] Address [address] [place] [address] Care Team Providers Care Animal Husbandry Manager Name Role Phone Marilee Evelyne Daugherty MARKETING ANALYTICS LEAD Primary Care Provider [phone] Encounter Details Date Type Department Care Team (Late st Contact Info) Description 07/18/2022 Lab Requisition [facility] Pathology & Laboratory Medicine - [facility] [address] [place], [place] [address] Outr Resulting Lab, Provider Social History Tobacco [...] Date/Time Associated Diagnosis Comments CA 125 Routine 07/17/2022 12:04 EDT documented in this encounter Results * CA 125 (07/17/2022 12:04 EDT) CA 125 8 <30 U/mL 07/19/2022 9:45 EDT [facility] Comment: NOTE: Serum CA 125 concentration should not be interpreted as absolute evidence for the presence or absence of malignant disease. Assayed on Siemens ADVIA Centaur XPT using chemiluminescent technology. ??Values obtained by using different assay methods cannot be used interchangeably. Blood VENOUS BLOOD / Unknown 07/17/2022 12:04 EDT 07/18/2022 17:14 EDT Provider Outr Resulting Lab CHEMISTRY & BLOOD GAS ORDERABLES Performing Organization Address City/State/[facility] Co de Phone Number [facility] [address] [place] [address] documented in this encounter Visit Diagnoses Not on filedocumented in this encounter Care Teams Animal Husbandry Manager Relationship Specialty Start Date End Date Evelyne Hunt NP [address] [place] [address] PCP - General 08/19/19 documented as of this encounter
--- OUTSIDE RECORDS SUMMARY | 2023-12-01 02:20 | XMS_ITS | Encounter Summary ---
Author Organization [facility] Address [address] [place] [address] Care Team Providers Care Auto Claim Representative Name Role Phone Evelyne Hunt MANAGER REIMBURSEMENT Primary Care Provider [phone] Encounter Details Date Type Department Care Team (Late st Contact Info) Description 03/15/2020 Lab Requisition [facility] Pathology & Laboratory Medicine - [facility] [address], [place] [address] Outr Resulting Lab, Provider Social History Tobacco [...] Procedure Name Priority Date/Time Associated Diagnosis Comments T3 FREE After X-Ray 02/23/2020 11:05 EST documented in this encounter Results * T3 FREE (02/23/2020 11:05 EST) T3, Free 4.1 2.8 - 5.3 pg/mL 04/04/2020 12:29 EST [facility] Blood VENOUS BLOOD / Unknown 02/23/2020 11:05 EST 04/04/2020 11:47 EST Provider Outr Resulting Lab CHEMISTRY & BLOOD GAS ORDERABLES [facility] [address] [place] [address] documented in this encounter Visit Diagnoses Not on filedocumented in this encounter Care Teams Auto Claim Representative Relationship Specialty Start Date End Date Evelyne Hunt, MEERA [address] [place] [address] PCP - General 08/19/19 documented as of this encounter
--- OUTSIDE RECORDS SUMMARY | 2023-12-01 02:20 | XMS_ITS | Encounter Summary ---
Author Organization [facility] Address [address] [place] [address] Care Team Providers Care Automotive Engineering Technician Name Role Phone Marilee Evelyne Daugherty COMMERCIAL LENDING VICE PRESIDENT Primary Care Provider [phone] Encounter Details Date Type Department Care Team (Late st Contact Info) Description 09/12/2020 Lab Requisition [facility] Pathology & Laboratory Medicine - [facility] [address] [place], [place] [address] Outr Resulting Lab, Provider Social History Tobacco [...] Date/Time Associated Diagnosis Comments CA 125 Routine 09/12/2020 14:30 EDT documented in this encounter Results * CA 125 (09/12/2020 14:30 EDT) CA 125 5 <30 U/mL 09/13/2020 10:12 EDT [facility] Comment: NOTE: Serum CA 125 concentration should not be interpreted as absolute evidence for the presence or absence of malignant disease. Assayed on Siemens ADVIA Centaur XPT using chemiluminescent technology. ??Values obtained by using different assay methods cannot be used interchangeably. Blood VENOUS BLOOD / Unknown 09/12/2020 14:30 EDT 09/12/2020 21:36 EDT Provider Outr Resulting Lab CHEMISTRY & BLOOD GAS ORDERABLES Performing Organization Address City/State/[facility] Co de Phone Number [facility] [address] [place] [address] documented in this encounter Visit Diagnoses Not on filedocumented in this encounter Care Teams Automotive Engineering Technician Relationship Specialty Start Date End Date Evelyne Hunt NP [address] [place] [address] PCP - General 08/19/19 documented as of this encounter
--- OUTSIDE RECORDS SUMMARY | 2023-12-01 02:20 | XMS_ITS | Encounter Summary ---
Author Organization [facility] Address [address] [place] [address] Care Team Providers Care Horse Exerciser Name Role Phone Unavailable Primary Care Provider Unavailabl e Encounter Details Date Type Department Care Team (Late st Contact Info) Description 01/29/2012 Results Only [facility] Laboratory Services - [facility] [place] [address] [place] [address] Angie Gonzalez, MACHINE CELL TUBER Social History Tobacco Use Types Packs/Day Years Used Date Smoking Tobacco: Never Assessed Sex and Gender Information Value Date Recorded Sex Assigned at Not on file Gender Identity Female 08/19/2019 15:16 EDT Sexual Orientation Not on file documented as of this encounter Plan of Treatment Not on file documented as of this encounter Procedures Procedure Name Priority Date/Time Associated Diagnosis Comments PAP TEST- RESULT ONLY Routine 01/29/2012 0:00 EDT documented in this encounter Results * PAP TEST- RESULT ONLY (01/29/2012 0:00 EDT) Pathology Report: CYTOPATHOLOGY REPORT Reports generated via electronic interface contain original data; however they are lacking the format of the original report. Caution should be taken when reading/interpreti ng unformatted reports. Name: ? KELVIN WALLER ? Accession #: ? [id number] ? : ? 1960 (Age: 51) ??F ?Collect Date: ? 01/29/2012 ? Location: ? [facility] ? Receive Date: ? 01/31/2012 ? Provider: ANGIE GONZALEZ MACHINE CELL TUBER Copy to: PA NIETOBRAYDEN PROCESS DEVELOPMENT MANAGER ? Final Report SPECIMEN ADEQUACY ? Satisfactory for Evaluation - transformation zone component absent GENERAL CATEGORIZATION ? Negative for Intraepithelial Lesion or Malignancy ?? Specimen/Source: ??Pap Test, Cervix/Endocervix, ThinPrep Imaging System with manual evaluation Document reviewed and electronically signed by: ? Mariann Piña, CT(ASCP) ? Report ??Date: 02/04/2012 13:49 HPV with Pap Test ? Date Ordered: ? 02/04/2012 ? Status: ?? Signed Out ?Date Complete: ? 02/06/2012 ? By: ??System Interface ? Date Reported: ? 02/06/2012 ? Interpretation RESULT: Negative for HPV. No E6 or E7 mRNA is detected from HPV types 16,18,31,33,35, 39,45,51,52,56,58, 59,66, and 68 by hub borer mediated amplification. Comments Document reviewed and electronically signed by: ? System Interface ? Report date: 02/06/2012 By the signature above, the attending physician certifies that he/she has personally conducted a gross and/or microscopic examination of the described specimens and rendered or confirmed the above diagnosis. End of Report [facility] 01/29/2012 01/31/2012 Angie Gonzalez NP PATHOLOGY ORDERABLES Performing Organization Address City/State/[facility] Co de Phone Number [facility] [address] [place] [address] documented in this encounter Visit Diagnoses Not on filedocumented in this encounter
--- OUTSIDE RECORDS SUMMARY | 2023-12-01 02:20 | XMS_ITS | Encounter Summary ---
Author Organization [facility] Address [address] [place] [address] Care Team Providers Care Fruit Sprayer Name Role Phone Marilee Evelyne Daugherty LEARNING PROGRAM MANAGER Primary Care Provider [phone] Encounter Details Date Type Department Care Team (Late st Contact Info) Description 03/15/2020 Lab Requisition [facility] Pathology & Laboratory Medicine - [facility] [address] [place], [place] [address] Outr Resulting Lab, Provider Social History Tobacco [...] Priority Date/Time Associated Diagnosis Comments CA 125 After X-Ray 03/13/2020 10:56 EST documented in this encounter Results * CA 125 (03/13/2020 10:56 EST) CA 125 6 <30 U/mL 04/04/2020 13:56 EST [facility] Comment: NOTE: Serum CA 125 concentration should not be interpreted as absolute evidence for the presence or absence of malignant disease. Assayed on Siemens ADVIA Centaur XPT using chemiluminescent technology. ??Values obtained by using different assay methods cannot be used interchangeably. Blood VENOUS BLOOD / Unknown 03/13/2020 10:56 EST 04/04/2020 11:48 EST Provider Outr Resulting Lab CHEMISTRY & BLOOD GAS ORDERABLES [facility] [address] [place] [address] documented in this encounter Visit Diagnoses Not on filedocumented in this encounter Care Teams Fruit Sprayer Relationship Specialty Start Date End Date Evelyne Hunt NP [address] [place] [address] PCP - General 08/19/19 documented as of this encounter
--- OUTSIDE RECORDS SUMMARY | 2023-12-01 02:20 | XMS_ITS | Encounter Summary ---
Author Organization [facility] Address [address] [place] [address] Care Team Providers Care Boat Hop Name Role Phone Evelyne Hunt AUDIOPROSTHOLOGIST Primary Care Provider [phone] Encounter Details Date Type Department Care Team (Late st Contact Info) Description 04/18/2020 Lab Requisition [facility] Pathology & Laboratory Medicine - [facility] [address] [place], [place] [address] Outr Resulting Lab, Provider Social History Tobacco [...] Date/Time Associated Diagnosis Comments CA 125 Routine 04/18/2020 11:10 EST documented in this encounter Results * CA 125 (04/18/2020 11:10 EST) CA 125 6 <30 U/mL 04/19/2020 9:44 EST [facility] Comment: NOTE: Serum CA 125 concentration should not be interpreted as absolute evidence for the presence or absence of malignant disease. Assayed on Siemens ADVIA Centaur XPT using chemiluminescent technology. ??Values obtained by using different assay methods cannot be used interchangeably. Blood VENOUS BLOOD / Unknown 04/18/2020 11:10 EST 04/18/2020 15:54 EST Provider Outr Resulting Lab CHEMISTRY & BLOOD GAS ORDERABLES [facility] [address] [place] [address] documented in this encounter Visit Diagnoses Not on filedocumented in this encounter Care Teams Boat Hop Relationship Specialty Start Date End Date Evelyne Hunt NP [address] [place] [address] PCP - General 08/19/19 documented as of this encounter
--- OUTSIDE RECORDS SUMMARY | 2023-12-01 02:20 | XMS_ITS | Encounter Summary ---
Author Organization [facility] Address [address] [place] [address] Care Team Providers Care Research Statistician Name Role Phone Marilee vEelyne Daugherty NICKEL PLATER Primary Care Provider [phone] Encounter Details Date Type Department Care Team (Late st Contact Info) Description 07/31/2020 Lab Requisition [facility] Pathology & Laboratory Medicine - [facility] [address] [place], [place] [address] Outr Resulting Lab, Provider Social History Tobacco [...] Date/Time Associated Diagnosis Comments CA 125 Routine 07/31/2020 12:30 EDT documented in this encounter Results * CA 125 (07/31/2020 12:30 EDT) CA 125 3 <30 U/mL 08/01/2020 9:25 EDT [facility] Comment: NOTE: Serum CA 125 concentration should not be interpreted as absolute evidence for the presence or absence of malignant disease. Assayed on Siemens ADVIA Centaur XPT using chemiluminescent technology. ??Values obtained by using different assay methods cannot be used interchangeably. Blood VENOUS BLOOD / Unknown 07/31/2020 12:30 EDT 07/31/2020 21:12 EDT Provider Outr Resulting Lab CHEMISTRY & BLOOD GAS ORDERABLES Performing Organization Address City/State/[facility] Co de Phone Number [facility] [address] [place] [address] documented in this encounter Visit Diagnoses Not on filedocumented in this encounter Care Teams Research Statistician Relationship Specialty Start Date End Date Evelyne Hunt NP [address] [place] [address] PCP - General 08/19/19 documented as of this encounter
--- OUTSIDE RECORDS SUMMARY | 2023-12-01 02:20 | XMS_ITS | Encounter Summary ---
Author Organization [facility] Address [address] [place] [address] Care Team Providers Care Poultry Farm Supervisor Name Role Phone Walter Akanksha Paloma STEVEN Primary Care Provider [phone] Encounter Details Date Type Department Care Team (Late st Contact Info) Description 12/02/2014 Results Only [facility] [phone] Hanna Romo, WELL LOGGING CAPTAIN MUD ANALYSIS [facility] [address] [place] [address] Social History Tobacco Use Types Packs/Day Years [...] Diagnosis Comments PAP TEST- RESULT ONLY Routine 12/02/2014 0:00 EDT documented in this encounter Results * PAP TEST- RESULT ONLY (12/02/2014 0:00 EDT) Pathology Report: CYTOPATHOLOGY REPORT Reports generated via electronic interface contain original data; however they are lacking the format of the original report. Caution should be taken when reading/interpreti ng unformatted reports. Name: ? KELVIN WALLER ? Accession #: ? [id number] : ? 1960 (Age: 54) ??F ?Collect Date: ? 12/02/2014 Location: ? [facility] ? Receive Date: ? 12/05/2014 Provider: ?HANNA ROMO WELL LOGGING CAPTAIN MUD ANALYSIS Copy to: ? Specimen/Source: ?Pap Test, Vagina, ThinPrep Imaging System with manual evaluation Last Menstrual Period: ? Other: ? Additional clinical information: Erythematous lesion at introitus ? SPECIMEN ADEQUACY ? Satisfactory for Evaluation - transformation zone component present GENERAL CATEGORIZATION ? Negative for Intraepithelial Lesion or Malignancy ? Document reviewed and electronically signed by: ? OTILIO Linda(ASCP) ? Report Date: ??12/07/2014 09:04 End of Report [facility] 12/02/2014 12/05/2014 Hanna Romo WELL LOGGING CAPTAIN MUD ANALYSIS PATHOLOGY ORDERABLE S [facility] [address] [place] [address] documented in this encounter Visit Diagnoses Not on filedocumented in this encounter Care Teams Poultry Farm Supervisor Relationship Specialty Start Date End Date Akanksha Watson APRN [address] [place] [address] PCP - General 06/03/12 08/18/19 documented as of this encounter
--- OUTSIDE RECORDS SUMMARY | 2023-12-01 02:20 | XMS_ITS | Encounter Summary ---
Author Organization [facility] Address [address] [place] [address] Care Team Providers Care Gripper Machine Operator Name Role Phone Marilee Evelyne Daugherty ATTENDANT HONOR BAR Primary Care Provider [phone] Encounter Details Date Type Department Care Team (Late st Contact Info) Description 12/28/2020 Lab Requisition [facility] Pathology & Laboratory Medicine - [facility] [address] [place], [place] [address] Outr Resulting Lab, Provider Social History Tobacco [...] Date/Time Associated Diagnosis Comments CA 125 Routine 12/28/2020 11:25 EDT documented in this encounter Results * CA 125 (12/28/2020 11:25 EDT) CA 125 6 <30 U/mL 12/29/2020 9:33 EDT [facility] Comment: NOTE: Serum CA 125 concentration should not be interpreted as absolute evidence for the presence or absence of malignant disease. Assayed on Siemens ADVIA Centaur XPT using chemiluminescent technology. ??Values obtained by using different assay methods cannot be used interchangeably. Blood VENOUS BLOOD / Unknown 12/28/2020 11:25 EDT 12/28/2020 21:00 EDT Provider Outr Resulting Lab CHEMISTRY & BLOOD GAS ORDERABLES [facility] [address] [place] [address] documented in this encounter Visit Diagnoses Not on filedocumented in this encounter Care Teams Gripper Machine Operator Relationship Specialty Start Date End Date Evelyne Hunt NP [address] [place] [address] PCP - General 08/19/19 documented as of this encounter
--- OUTSIDE RECORDS SUMMARY | 2023-12-01 02:20 | XMS_ITS | Encounter Summary ---
Author Organization [facility] Address [address] [place] [address] Care Team Providers Care Licensed Occupational Therapy Assistant Name Role Phone Akanksha Watson APRN Primary Care Provider [phone] Reason for Visit * (Routine) - Receiving Office to Obtain Authorization Specialty Diagnoses / Procedures Referred By Marcel edwards Referred To Contact Procedures CT OUTSIDE IMAGES BODY Unknown, Provider, Referral ID Status Reason Start Date Expiration Date Visits Requested Visits Authorized [id number] Receiving Office to Obtain Authorization 08/18/2019 1 1 Encounter Details Date Type Department Care Team (Latest Contact Info) Description 07/08/2019 - 07/08/2019 23:59 EDT Hospital Encounter [facility] Radiology - [facility] [place] [address] [place] [address] Discharge Disposition: Home or Self Care Social History Tobacco Use Types Packs/Day Years Used Date Smoking Tobacco: Never Assessed Sex and Gender Information Value Date Recorded Sex Assigned at Not on file Gender Identity Female 08/19/2019 15:16 EDT Sexual Orientation Not on file documented as of this encounter Discharge Disposition Disposition Code Departure Means Destination Home or Self Care documented in this encounter Plan of Treatment Not on file documented as of this encounter Procedures Procedure Name Priority Date/Time Associated Diagnosis Comments CT OUTSIDE IMAGES BODY Routine 08/18/2019 13:09 EDT documented in this encounter Results * CT OUTSIDE IMAGES BODY (08/18/2019 13:09 EDT) Narrative ZORA - 08/18/2019 13:09 EDT This is a non-reportable exam. Physician Fa_General MD [facility] OTHER IMAGIN G ORDERABLES [facility] documented in this encounter Visit Diagnoses Not on filedocumented in this encounter Care Teams Licensed Occupational Therapy Assistant Relationship Specialty Start Date End Date Akanksha Watson, TENISHA [address] [place] [address] PCP - General 06/03/12 08/18/19 documented as of this encounter
--- OUTSIDE RECORDS SUMMARY | 2023-12-01 02:20 | XMS_ITS | Encounter Summary ---
Author Organization [facility] Address [address] [place] [address] Care Team Providers Care Subway Operator Name Role Phone Unavailable Primary Care Provider Unavailabl e Encounter Details Date Type Department Care Team (Late st Contact Info) Description 10/08/1999 Results Only [facility] [place] [facility] [address] [place] [address] Angie Gonzalez, MEERA Social History Tobacco Use Types Packs/Day Years Used Date Smoking Tobacco: Never Assessed Sex and Gender Information Value Date Recorded Sex Assigned at Not on file Gender Identity Female 08/19/2019 15:16 EDT Sexual Orientation Not on file documented as of this encounter Plan of Treatment Not on file documented as of this encounter Procedures Procedure Name Priority Date/Time Associated Diagnosis Comments CYTOPATHOLOGY Routine 10/08/1999 0:00 EDT documented in this encounter Results * CYTOPATHOLOGY (10/08/1999 0:00 EDT) Pathology Report: CYTOPATHOLOGY REPORT Reports generated via electronic interface contain original data; however they are lacking the format of the original report. Caution should be taken when reading/interpreti ng unformatted reports. Name: ? KELVIN WALLER ? Accession #: ? [id number] : ? 1960 (Age: 39) ??F ?Collect Date: ? 10/08/1999 Location: ? [facility] ? Receive Date: ? 10/09/1999 Provider: ?ANGIE GONZALEZ RELEASE COORDINATOR Copy to: ? Specimen/Source: ?ThinPrep Pap Test, Cervix/Endocervix Last Menstrual Period: ? 05/?/00 ? SPECIMEN ADEQUACY ? Satisfactory for evaluation. GENERAL CATEGORIZATION ? Within Normal Limits ? Document reviewed and electronically signed by: ? OTILIO King(ASCP) ? Report Date: ??10/10/1999 07:26 End of Report [facility] 10/08/1999 10/09/1999 Angie Gonzalez RELEASE COORDINATOR PATHOLOGY ORDERABLES [facility] [address] [place] [address] documented in this encounter Visit Diagnoses Not on filedocumented in this encounter
--- OUTSIDE RECORDS SUMMARY | 2023-12-01 02:20 | XMS_ITS | Encounter Summary ---
Author Organization [facility] Address [address] [place] [address] Care Team Providers Care Chairlift Operator Name Role Phone Evelyne Hunt WOOL WASHER FEEDER Primary Care Provider [phone] Encounter Details Date Type Department Care Team (Late st Contact Info) Description 01/30/2021 Lab Requisition [facility] Pathology & Laboratory Medicine - [facility] [address] [place], [place] [address] Outr Resulting Lab, Provider Social History Tobacco [...] Date/Time Associated Diagnosis Comments CA 125 Routine 01/30/2021 10:32 EDT documented in this encounter Results * CA 125 (01/30/2021 10:32 EDT) CA 125 5 <30 U/mL 01/31/2021 11:48 EDT [facility] Comment: NOTE: Serum CA 125 concentration should not be interpreted as absolute evidence for the presence or absence of malignant disease. Assayed on Siemens ADVIA Centaur XPT using chemiluminescent technology. ??Values obtained by using different assay methods cannot be used interchangeably. Blood VENOUS BLOOD / Unknown 01/30/2021 10:32 EDT 01/30/2021 16:02 EDT Provider Outr Resulting Lab CHEMISTRY & BLOOD GAS ORDERABLES [facility] [address] [place] [address] documented in this encounter Visit Diagnoses Not on filedocumented in this encounter Care Teams Chairlift Operator Relationship Specialty Start Date End Date Evelyne Hunt NP [address] [place] [address] PCP - General 08/19/19 documented as of this encounter
--- OUTSIDE RECORDS SUMMARY | 2023-12-01 02:20 | XMS_ITS | Encounter Summary ---
Author Organization [facility] Address [address] [place] [address] Care Team Providers Care Manager Of Product Name Role Phone Unavailable Primary Care Provider Unavailabl e Encounter Details Date Type Department Care Team (Late st Contact Info) Description 11/26/2006 Results Only [facility] conversion [address] [place] [address] Angie Gonzalez, MEERA Social History Tobacco Use [...] Priority Date/Time Associated Diagnosis Comments CYTOPATHOLOGY Routine 11/26/2006 0:00 EDT documented in this encounter Results * CYTOPATHOLOGY (11/26/2006 0:00 EDT) Pathology Report: CYTOPATHOLOGY REPORT Reports generated via electronic interface contain original data; however they are lacking the format of the original report. Caution should be taken when reading/interpreti ng unformatted reports. Name: ? KELVIN WALLER ? Accession #: ? [id number] : ? 1960 (Age: 46) ??F ?Collect Date: ? 11/26/2006 Location: ? [facility] ? Receive Date: ? 11/27/2006 Provider: ?ANGIE GONZALEZ PERSONAL FINANCIAL PLANNER Copy to: ? Specimen/Source: ?ThinPrep Pap Test, Cervix/Endocervix, processed on XillianTV ThinPrep Imaging System, with manual evaluation Last Menstrual Period: ? 11/19/06 Other: ? HPVA - HPV testing requested if ASC-US on the current ThinPrep Pap test. ? SPECIMEN ADEQUACY ? Satisfactory for Evaluation - transformation zone component present GENERAL CATEGORIZATION ? Negative for Intraepithelial Lesion or Malignancy ? Document reviewed and electronically signed by: ? OTILIO Garcia(ASCP) ? Report Date: ??12/02/2006 09:27 End of Report [facility] 11/26/2006 11/27/2006 Angie Gonzalez NP PATHOLOGY ORDERABLES Performing Organization Address City/State/[facility] Co de Phone Number [facility] [address] [place] [address] documented in this encounter Visit Diagnoses Not on filedocumented in this encounter
--- OUTSIDE RECORDS SUMMARY | 2023-12-01 02:20 | XMS_ITS | Encounter Summary ---
Author Organization [facility] Address [address] [place] [address] Care Team Providers Care Dispensing Lead Name Role Phone MarileeDarleen hoffmanntahira Daugherty NAILING MACHINE OPERATOR Primary Care Provider [phone] Encounter Details Date Type Department Care Team (Late st Contact Info) Description 10/07/2019 Lab Requisition [facility] Pathology & Laboratory Medicine - [facility] [address] [place], [place] [address] Outr Resulting Lab, Provider Social History Tobacco [...] Date/Time Associated Diagnosis Comments CA 125 Routine 10/07/2019 11:00 EDT documented in this encounter Results * CA 125 (10/07/2019 11:00 EDT) CA 125 10 <30 U/mL 10/08/2019 11:[address] [facility] Comment: NOTE: Serum CA 125 concentration should not be interpreted as absolute evidence for the presence or absence of malignant disease. Assayed on Siemens ADVIA Droid system masteraur XPT using chemiluminescent technology. ??Values obtained by using different assay methods cannot be used interchangeably. Blood VENOUS BLOOD / Unknown 10/07/2019 11:00 EDT 10/07/2019 15:55 EDT Provider Outr Resulting Lab CHEMISTRY & BLOOD GAS ORDERABLES [facility] [address] [place] [address] documented in this encounter Visit Diagnoses Not on filedocumented in this encounter Additional Health Concerns Infection Onset Date Last Indicated Resolved Time R/O COVID-19 10/26/2019 10/26/2019 10/31/2019 22:1 7 EDT documented as of this encounter Care Teams Dispensing Lead Relationship Specialty Start Date End Date Evelyne Hunt, MEERA [address] [place] [address] PCP - General 08/19/19 documented as of this encounter
--- OUTSIDE RECORDS SUMMARY | 2023-12-01 02:20 | XMS_ITS | Encounter Summary ---
Author Organization [facility] Address [address] [place] [address] Care Team Providers Care Licensed Appraiser Name Role Phone Akanksha Watson APRN Primary Care Provider [phone] Reason for Visit * (Routine) - Receiving Office to Obtain Authorization Specialty Diagnoses / Procedures Referred By Marcel edwards Referred To Contact Procedures US OUTSIDE IMAGES BODY Unknown, Provider, Referral ID Status Reason Start Date Expiration Date Visits Requested Visits Authorized [id number] Receiving Office to Obtain Authorization 08/18/2019 1 1 Encounter Details Date Type Department Care Team (Latest Contact Info) Description 07/05/2019 - 07/05/2019 23:59 EDT Hospital Encounter [facility] Radiology - Main [place] [address] [place] [address] Discharge Disposition: Home or Self Care Social [...] Procedure Name Priority Date/Time Associated Diagnosis Comments US OUTSIDE IMAGES BODY Routine 08/18/2019 13:14 EDT documented in this encounter Results * US OUTSIDE IMAGES BODY (08/18/2019 13:14 EDT) Narrative ZORA - 08/18/2019 13:14 EDT This is a non-reportable exam. Physician Fa_General IMG OTHER IMAGIN G ORDERABLES [facility] documented in this encounter Visit Diagnoses Not on filedocumented in this encounter Care Teams Licensed Appraiser Relationship Specialty Start Date End Date Akanksha Watson, TENISHA [address] [place] [address] PCP - General 06/03/12 08/18/19 documented as of this encounter
--- OUTSIDE RECORDS SUMMARY | 2023-12-01 02:20 | XMS_ITS | Encounter Summary ---
Author Organization [facility] Address [address] [place] [address] Care Team Providers Care Planning Aide Name Role Phone Marilee Evelyne Daugherty HSE MANAGER Primary Care Provider [phone] Encounter Details Date Type Department Care Team (Late st Contact Info) Description 12/28/2019 Lab Requisition [facility] Pathology & Laboratory Medicine - [facility] [address] [place], [place] [address] Outr Resulting Lab, Provider Social History Tobacco [...] Date/Time Associated Diagnosis Comments CA 125 Routine 12/28/2019 10:48 EDT documented in this encounter Results * CA 125 (12/28/2019 10:48 EDT) CA 125 9 <30 U/mL 12/29/2019 10:51 EDT [facility] Comment: NOTE: Serum CA 125 concentration should not be interpreted as absolute evidence for the presence or absence of malignant disease. Assayed on Siemens ADVIA Centaur XPT using chemiluminescent technology. ??Values obtained by using different assay methods cannot be used interchangeably. Blood VENOUS BLOOD / Unknown 12/28/2019 10:48 EDT 12/28/2019 16:40 EDT Provider Outr Resulting Lab CHEMISTRY & BLOOD GAS ORDERABLES [facility] [address] [place] [address] documented in this encounter Visit Diagnoses Not on filedocumented in this encounter Care Teams Planning Aide Relationship Specialty Start Date End Date Evelyne Hunt, MEERA [address] [place] [address] PCP - General 08/19/19 documented as of this encounter
--- OUTSIDE RECORDS SUMMARY | 2023-12-01 02:20 | XMS_ITS | Encounter Summary ---
Author Organization [facility] Address [address] [place] [address] Care Team Providers Care Retail Supervisor Name Role Phone MarileeDarleen hoffmanntahira Daugherty PLASTERER ROUGH Primary Care Provider [phone] Encounter Details Date Type Department Care Team (Late st Contact Info) Description 08/25/2019 Lab Requisition [facility] Pathology & Laboratory Medicine - [facility] [address] [place], [place] [address] Outr Resulting Lab, Provider Social History Tobacco [...] Date/Time Associated Diagnosis Comments CA 125 Routine 08/25/2019 15:08 EDT documented in this encounter Results * CA 125 (08/25/2019 15:08 EDT) CA 125 23 <30 U/mL 08/26/2019 11:43 EDT [facility] Comment: NOTE: Serum CA 125 concentration should not be interpreted as absolute evidence for the presence or absence of malignant disease. Assayed on Siemens ADVIA Messagemindaur XPT using chemiluminescent technology. ??Values obtained by using different assay methods cannot be used interchangeably. Blood VENOUS BLOOD / Unknown 08/25/2019 15:08 EDT 08/25/2019 20:33 EDT Provider Outr Resulting Lab CHEMISTRY & BLOOD GAS ORDERABLES [facility] [address] [place] [address] documented in this encounter Visit Diagnoses Not on filedocumented in this encounter Additional Health Concerns Infection Onset Date Last Indicated Resolved Time R/O COVID-19 10/26/2019 10/26/2019 10/31/2019 22:1 7 EDT documented as of this encounter Care Teams Retail Supervisor Relationship Specialty Start Date End Date Evelyne Hunt, MEERA [address] [place] [address] PCP - General 08/19/19 documented as of this encounter
--- OUTSIDE RECORDS SUMMARY | 2023-12-01 02:20 | XMS_ITS | Encounter Summary ---
Author Organization [facility] Address [address] [place] [address] Care Team Providers Care Automotive Buyer Name Role Phone Evelyne Hunt TIRE CHANGER [employer]CRAFT Primary Care Provider [phone] Encounter Details Date Type Department Care Team (Late st Contact Info) Description 06/05/2020 Lab Requisition [facility] Pathology & Laboratory Medicine - [facility] [address] [place], [place] [address] Outr Resulting Lab, Provider Social History Tobacco [...] Date/Time Associated Diagnosis Comments CA 125 Routine 06/05/2020 11:05 EST documented in this encounter Results * CA 125 (06/05/2020 11:05 EST) CA 125 6 <30 U/mL 06/06/2020 11:00 EST [facility] Comment: NOTE: Serum CA 125 concentration should not be interpreted as absolute evidence for the presence or absence of malignant disease. Assayed on Siemens ADVIA Centaur XPT using chemiluminescent technology. ??Values obtained by using different assay methods cannot be used interchangeably. Blood VENOUS BLOOD / Unknown 06/05/2020 11:05 EST 06/05/2020 16:03 EST Provider Outr Resulting Lab CHEMISTRY & BLOOD GAS ORDERABLES Performing Organization Address City/State/[facility] Co de Phone Number [facility] [address] [place] [address] documented in this encounter Visit Diagnoses Not on filedocumented in this encounter Care Teams Automotive Buyer Relationship Specialty Start Date End Date Evelyne Hunt, MEERA [address] [place] [id number] PCP - General 08/19/19 documented as of this encounter
--- OUTSIDE RECORDS SUMMARY | 2023-12-01 02:20 | XMS_ITS | Encounter Summary ---
Author Organization [facility] Address [address] [place] [address] Care Team Providers Care Reaming Press Operator Name Role Phone MarileeKikiEvelyne A DISPLAY DIRECTOR Primary Care Provider [phone] Encounter Details Date Type Department Care Team (Late st Contact Info) Description 11/18/2019 Lab Requisition [facility] Pathology & Laboratory Medicine - [facility] [address] [place], [place] [address] Outr Resulting Lab, Provider Social History Tobacco [...] Date/Time Associated Diagnosis Comments CA 125 Routine 11/18/2019 11:04 EDT documented in this encounter Results * CA 125 (11/18/2019 11:04 EDT) CA 125 9 <30 U/mL 11/19/2019 10:37 EDT [facility] Comment: NOTE: Serum CA 125 concentration should not be interpreted as absolute evidence for the presence or absence of malignant disease. Assayed on Siemens ADVIA Centaur XPT using chemiluminescent technology. ??Values obtained by using different assay methods cannot be used interchangeably. Blood VENOUS BLOOD / Unknown 11/18/2019 11:04 EDT 11/18/2019 16:34 EDT Provider Outr Resulting Lab CHEMISTRY & BLOOD GAS ORDERABLES [facility] [address] [place] [address] documented in this encounter Visit Diagnoses Not on filedocumented in this encounter Care Teams Reaming Press Operator Relationship Specialty Start Date End Date Evelyne Hunt, MEERA [address] [place] [id number] PCP - General 08/19/19 documented as of this encounter
--- OUTSIDE RECORDS SUMMARY | 2023-12-01 02:20 | XMS_ITS | Encounter Summary ---
Author Organization [facility] Address [address] [place] [address] Care Team Providers Care Supervisor Sample Preparation Name Role Phone WalterAkanksha Paloma STEVEN Primary Care Provider [phone] Encounter Details Date Type Department Care Team (Late st Contact Info) Description 10/08/2017 Results Only [facility] [phone] Regi Lopez MD [facility] [place], [place] [address] Social History Tobacco Use Types Packs/Day Years [...] Diagnosis Comments PAP TEST- RESULT ONLY Routine 10/08/2017 0:00 EDT documented in this encounter Results * PAP TEST- RESULT ONLY (10/08/2017 0:00 EDT) Pathology Report: CYTOPATHOLOGY REPORT Reports generated via electronic interface contain original data; however they are lacking the format of the original report. Caution should be taken when reading/interpreti ng unformatted reports. Name: ? KELVIN WALLER ? Accession #: ? [id number] ? : ? 1960 (Age: 57) ??F ?Collect Date: ? 10/08/2017 ? Location: ? [facility] ? Receive Date: ? 10/09/2017 ? Provider: REGI LOPEZ MD Copy to: RAVINDRA LEON NP ? Final Report SPECIMEN ADEQUACY ? Satisfactory for Evaluation - transformation zone component present GENERAL CATEGORIZATION ? Negative for Intraepithelial Lesion or Malignancy ?? Other: Previous NIL Pap(s) Specimen/Source: ??Pap Test, Cervix/Endocervix, ThinPrep Imaging System with manual evaluation Document reviewed and electronically signed by: ? Carmella Roberts, CT(ASCP)(IAC) ? Report ??Date: 10/15/2017 15:19 HPV with Pap Test ? Date Ordered: ? 10/15/2017 ? Status: ?? Signed Out ?Date Complete: ? 10/16/2017 ? By: ??System Interface ? Date Reported: ? 10/16/2017 ? Interpretation RESULT: Negative for HPV. No E6 or E7 mRNA is detected from HPV types 16,18,31,33,35, 39,45,51,52,56,58, 59,66, and 68 by hydrometeorological technician mediated amplification. Comments Document reviewed and electronically signed by: ? System Interface ? Report date: 10/16/2017 By the signature above, the attending physician certifies that he/she has personally conducted a gross and/or microscopic examination of the described specimens and rendered or confirmed the above diagnosis. End of Report [facility] 10/08/2017 10/09/2017 Regi Lopez MD PATHOLOGY ORDERABLES Performing Organization Address City/State/[facility] Co de Phone Number [facility] [address] [place] [address] documented in this encounter Visit Diagnoses Not on filedocumented in this encounter Care Teams Supervisor Sample Preparation Relationship Specialty Start Date End Date Akanksha Watson APRN [address] [place] [address] PCP - General 06/03/12 08/18/19 documented as of this encounter
--- OUTSIDE RECORDS SUMMARY | 2023-12-01 02:20 | XMS_ITS | Encounter Summary ---
Author Organization [facility] Address [address] [place] [address] Care Team Providers Care Collateral Specialist Name Role Phone Evelyne Hunt FAMILY DENTIST Primary Care Provider [phone] Reason for Visit * Reason Comments Advice Only * Consult (Routine) - Closed Specialty Diagnoses / Procedures Referred By Marcel edwards Referred To Contact Gynecologic Oncology Diagnoses Ovarian cancer (HCC-[facility]) Evelyne Hunt, MEERA [address] [place] [address] [facility]4 Manager Staffing Oncology [address] [place] [id number] Referral ID Status Reason Start Date Expiration Date Visits Re quested Visits Authorized [id number] Closed 1 1 Encounter Details Date Type Department Care Team (Late st Contact Info) Description 08/21/2019 10:30 EDT Telemedicine [facility] Gynecologic Oncology - [facility] [address] [place] [address] Jeancarlos Nunes MD [address] [facility], [facility], [address] [place] [address] Malignant neoplasm of ovary, unspecified laterality (HCC-CMS) (Primary Dx) Social History Tobacco Use Types Packs/Day Years Used Date Smoking Tobacco: Never Assessed Sex and Gender Information Value Date Recorded Sex Assigned at Not on file Gender Identity Female 08/19/2019 15:16 EDT Sexual Orientation Not on file documented as of this encounter Progress Notes * Jeancarlos Nunes MD - 08/21/2019 1030 EDT Thank you much for requesting a consult on your patient Ivana Luna. As you will recall, Ivana gin 58-year-old female who on August 02, 2019 underwent a total abdominal hysterectomy, bilateral salpingo-nephrectomy, cytoreductive surgery, and rectosigmoid resection. 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 The pathology report demonstrates that peritoneal implants and serosal implants were positive for malignancy. Preoperative CA 125 was 350. It [facility] be [facility]. The patient presents today for a discussion of her proposed treatment options described by her oncologist at [facility]. It should be noted that her maternal aunt was diagnosed with advanced stage ovarian cancer and was unable to undergo cytoreductive surgery. No current outpatient medications on file. No current facility-administered medications for this visit. Allergies not on file Social History Socioeconomic History ??? Marital status: Spouse name: Not on file ??? Number of children: Not on file ??? Years of education: Not on file ??? Highest education level: Not on file Occupational History ??? Not on file Social Needs ??? Financial resource strain: Not on file ??? Food insecurity: Worry: Not on file Inability: Not on file ??? Transportation needs: Medical: Not on file Non-medical: Not on file Tobacco Use ??? Smoking status: Not on file Substance and Sexual Activity ??? Alcohol use: Not on file ??? Drug use: Not on file ??? Sexual activity: Not on file Lifestyle ??? Physical activity: Days per week: Not on file Minutes per session: Not on file ??? Stress: Not on file Relationships ??? Social connections: Talks on phone: Not on file Gets together: Not on file Attends yazdanism service: Not on file Active member of club or organization: Not on file Attends meetings of clubs or organizations: Not on file Relationship status: Not on file ??? Intimate partner violence: Fear of current or ex partner: Not on file Emotionally abused: Not on file Physically abused: Not on file Forced sexual activity: Not on file Other Topics Concern ??? Not on file Social History Narrative ??? Not on file Objective: There were no vitals taken for this visit. Physical Exam was deferred. Assessment & Plan: Today, I explained to Ivana that I have reviewed all the medical records that have been made available to me. The pathology reports and operative reports from [facility] were reviewed. The final pathology port demonstrates that she has stage IIIb endometrioid adenocarcinoma of the ovaries. The planned adjuvant treatment plan for Ivana is Taxol, carboplatin, Avastin. The plan is also for Ivana to undergo genetic testing. Today, I explained to Ivana and her partner that I agree with the treatment plan that is outlined for her. I also explained to Ivana the biology of ovarian cancer. I explained to Ivana that she is considered treatable but not curable. However, with that said, there are some newer therapies for ovarian cancer such as Avastin and parp inhibitors. I did explain to Ivana that genetic testing would not only be helpful for her children but may outline as to whether or not Ivana is appropriate for PARP inhibitors. Today, Eder had a lot of questions and I have answered all of these questions to her satisfaction. I explained to Radha that I do not see any reason why she would need to come to [place] for her chemotherapy treatments. Ivana will continue with her care with the oncologist at [facility]. If she has any further questions, I explained to her that I would be more than happy to answer them. As always, I thank you for allowing me to participate in the care of your patients. I will keep youinformed of her progress. Sincerely, Jeancarlos Nunes MD Director, Division of Manager Staffing Oncology [facility] Today's visit was provided through telemedicine audio-visual conferencing: Consent: The concept of telemedicine?? has been described to the patient. Patient has been informed of theanticipated benefits and possible risks. Patient understands the information provided regarding telemedicine, has had the opportunity to ask questions about this information, and all questions have been answered to patient's satisfaction. Patient consents for the use of telemedicine in his/her medical care and authorizes the transmission of any relevant medical information to providers and their staff involved in patient's medical or mental health care. The location of the patient : Home The location of the provider: Office The following people (and their respective roles) participated in today's encounter: Gabi Luna, patient Jeancarlos Nunes MD, provider The audio-video application used to conduct the visit was [employer] I spent a total of 30 minutes with Gabi Eber Benitoyvonne today and 30 minutes of that time was spent incounseling and coordination of care as described in the progress note. documented in this encounter Plan of Treatment Not on file documented as of this encounter Visit Diagnoses Diagnosis Malignant neoplasm of ovary, unspecified laterality (HCC-CMS)- Primary documented in this encounter Care Teams Collateral Specialist Relationship Specialty Start Date End Date Evelyne Hunt NP [address] [place] [address] PCP - General 08/19/19 documented as of this encounter
--- OUTSIDE RECORDS SUMMARY | 2023-12-01 02:20 | XMS_ITS | Encounter Summary ---
Author Organization [facility] Address [address] [place] [address] Care Team Providers Care Icebox Man Name Role Phone Marilee Evelyne Daugherty VISION REHABILITATION THERAPIST Primary Care Provider [phone] Encounter Details Date Type Department Care Team (Late st Contact Info) Description 01/31/2020 Lab Requisition [facility] Pathology & Laboratory Medicine - [facility] [address] [place], [place] [address] Outr Resulting Lab, Provider Social History Tobacco [...] Procedure Name Priority Date/Time Associated Diagnosis Comments THYROID ANTIBODIES Routine 01/31/2020 11 :32 EDT documented in this encounter Results * THYROID ANTIBODIES (01/31/2020 11:32 EDT) Anti-Thyroglobulin <15 <=60 U/mL 2019 22:05 EDT [facility] Thyroperoxidase Ab 32 <=60 U/mL 2019 22:05 EDT [facility] Blood VENOUS BLOOD / Unknown 01/31/2020 11:32 EDT 01/31/2020 20:53 EDT Provider Outr Resulting Lab CHEMISTRY & BLOOD GAS ORDERABLES [facility] [address] [place] [address] documented in this encounter Visit Diagnoses Not on filedocumented in this encounter Care Teams Icebox Man Relationship Specialty Start Date End Date Evelyne Hunt, MEERA [address] [place] [address] PCP - General 08/19/19 documented as of this encounter
--- OUTSIDE RECORDS SUMMARY | 2023-12-01 02:20 | XMS_ITS | Data Portability ---
Author Organization [facility] [place] [address] Care Team Providers Care Beater Room Supervisor Name Role Phone EDWARDEVELYNE Hayward Primary Care Provider Assessment No assessment recorded. Plan of Treatment Reminders Order Date Submit Date Provider Last Modified By Organization Details Last Modified Time Details Appointments None recorded. Lab None recorded. Referral None recorded. Procedures None recorded. Surgeries None recorded. Imaging XR, chest, 2 view - Cough X2 weeks, worsening in the last 4 days. 2023 024 [facility] (Radiology), [address] [place] [address] [place], [address], 10:40:21 Medication Orders albuterol sulfate HFA 90 mcg/actuati on aerosol inhaler 2023 024 [facility], [address] [place], [address], 4 11:10:29 prednisone 20 mg tablet 2023 024 JOSE MANUEL [facility], [address] [place], [address], 4 11:10:28 Patient TargetsNo targets recorded. Patient Instructions Encounter Date Encounter Id Patient Instructions Last Modified By Organization Details Last Modified Time 08/02/2023 [id number] Today, we will get a chest xray. Check in through the [facility] Emergency Room, and you can head straight to radiology. I will call with results. With any signs of infection/pneumon ia, we will start an oral antibiotic. If no signs of infection, we can continue to treat the post viral cough symptoms with a rescue inhaler and possible oral steroid. [email or web address] Not available 08/02/2023 09:47:01 Reason for Referral None Reported. Results Created Date Observation Date Name Description Value Unit Range Abnormal Flag LastModifiedBy Organization Detail LastModifiedTime 08/02/19 24 11/29/2022 MAMMO , diagn ostic , bilat eral No observ ation record ed. BARCODE Not Available 08/02/2023 09:23:12 08/02/19 24 05/01/2021 colon oscop y outco mes repor ting* No observ ation record ed. BARCODE Not Available 08/02/2023 09:23:12 08/02/19 24 08/02/2023 XR, chest , 2 view No observ ation record ed. [email or web address] [facility] [address], [place], [address], 08/02/2023 11:12:01 08/02/19 24 08/02/2023 XR, chest , 2 view Patien t Name: Miranda Bernard Unit #: [id number] Loc: DI Orderi ng Provid er: MICHAEL DE LA TORRE t #: [id number] Status : REG REF Primar y Care Provid er: Evelyne Hunt PAPER CUTTER OPERATOR Date of Exam: Sex: F Admiss ion Date: : 1960 Age: 62 Exam(s ) XR CHEST 2V PA LATERA L EXAM: XR CHEST 2V PA LATERA L CLINIC AL HISTOR Y: COUGH TECHNI QUE: 2D digita l imagin g was perfor med of the chest. Two images were obtain ed. PA and latera l views were obtain ed. COMPAR DOLLY: CR XR CHEST 2V PA LATERA L from 2017 FINDIN GS: MEDIAS TINUM: Normal . HEART: Normal . There is an aortic valve prosth esis. PULMON NIDHI VASCUL ATURE: Normal . LUNGS: Clear. PLEURA L SPACE: No pleura l effusi on or pneumo thorax . BONE:W ithin normal limits for the patien t's age. Sterna l wires are in place. OTHER FINDIN GS:Nor mal. IMPRES JACE: No acute pulmon nidhi findin gs. DATA REPOSI TORY: RADIAT ION DOSE DELIVE RED: Ordere d By: MICHAEL DE LA TORRE CC: ------ ------ ------ ------ ------ ------ ------ ------ ------ ------ ------ ------ - Dictat ed By: Yovani Coats M.D. 1318 Transc ribed By: Yovani Coats 1318 This is privil eged, confid ential inform ation intend ed only for the provid er named. Any use or distri bution by any person other than this provid er is strict ly prohib ited. If you receiv e this report in error, please notify us immedi ately at [phone] and return the origin al report to us at the addres s above. Thank- you. [email or web address] [facility] (Radiology) [address] [place] [address] [place], [address], 08/02/2023 14:12:23 Result Notes None recorded. Procedures Surgical History None recorded. Imaging Results Imaging Date Name Status LastModified by Organiz [email or web address] Details LastModified Time 11/29/2022 MAMMO, diagnostic, bilateral completed BARCODE Information not available 08/02/2023 09:23:12 05/01/2021 colonoscopy outcomes reporting* completed BARCODE Information not available 08/02/2023 09:23:12 08/02/2023 XR, chest, 2 view completed [email or web address] [facility] [address], [place], [address], 08/02/2023 11:12:01 08/02/2023 XR, chest, 2 view completed [email or web address] [facility] (Radiology) [address], [place], [address], 08/02/2023 14:12:23 Procedure Notes None recorded. Medical Equipment None Reported. Allergies Allergen ID Allergen Name Allergen Category Reaction Reaction Severity Criticality Documentation Date Start Date Code Code System Note Provider Name and Address Organization Details Recorded Time 89756 Medicinal product containin g penicilli n and acting as antibacte rial agent (product) medicatio n facial swelling itching moderate mild low 08/02/2023 54164 05 SNOMED DMITRY Olsen, [facility] 4 09:24:05 82136 paroxetin e Not available Not available Not available Not available 08/02/2023 08997 RxDMITRY Roman, [facility] 4 09:30:13 93252 paclitaxe l medicatio n Not available Not available Not available 08/02/2023 08153 RxDMITRY Roman, [facility] 4 09:30:27 91151 sertralin e medicatio n Not available Not available low 08/02/2023 76100 DMITRY Hung, [facility] 4 09:30:38 84429 venlafaxi ne medicatio n Not available Not available Not available 08/02/2023 78895 DMITRY Hung, [facility] 4 09:30:45 29314 betametha sone medicatio n tachycard ia moderate low 08/02/2023 1514 RxDMITRY Roman, [facility] 4 09:31:04 Medications Name Sig Start Date Stop Date Status Note LastModified by Organization Details LastModified Time trazodone 50 mg tablet Take 1 tablet every day by oral route. active Not Available Not Available No t Available atorvastatin 10 mg tablet Take 1 tablet every day by oral route. active Not Available Not Available No t Available metoprolol succinate ER 50 mg tablet,exten ded release 24 hr Take 1 tablet every day by oral route. active Not Available Not Available No t Available prednisone 20 mg tablet Take 2 tablets every day by oral route for 5 days. 2023 active Not Available Not Available Not Avai lable albuterol sulfate HFA 90 mcg/actuatio n aerosol inhaler Inhale 2 puffs every 4 hours by inhalation route as needed, for cough/wheez e/shortness of breath. 2023 active Not Available Not Available Not Avai lable bupropion HCl XL 300 mg 24 hr tablet, extended release Take 1 tablet every day by oral route. active Not Available Not Available No t Available Adult Low Dose Aspirin active Not Available Not Available Not Available Vitamin D3 50 mcg (2,000 unit) capsule Take 1 capsule every day by oral route. active Not Available Not Available No t Available Adults Multivitamin active Not Available Not Available Not Available Vitals Date Recorded Body height Body mass index (BMI) Body weight Body temperature Respiratory rate Oxygen saturation Oxygen saturation in Arterial blood by Pulse oximetry Heart rate Systolic blood pressure Diastolic blood pressure Provider Name and Address Organization Details Last Updated DateTime 165.1 cm 20.8 kg/m2 59830.0 5 g 97 [degF] 17 /min 96 % 96 % 83 /min 126 mm[Hg] 89 mm[Hg] Cari Armstrong RN [facility] 09:23:33 Social History Question Answer Notes LastModified by Organizat ion Details LastModified Time Tobacco Smoking Status Former Smoker Cari Armstrong RN [facility], [facility] 08/02/2023 09:26:30 When Did You Quit Smoking? 16+yearssinc elastcigaret te Information not available 08/02/2023 What Was The Date Of Your Most Recent Tobacco Screening? 08/02/2023 Information not available 08/02/2023 Has Tobacco Cessation Counseling Been Provided? Yes Information not available 08/02/2023 On What Date Was Tobacco Cessation Counseling Provided? 08/02/2023 Information not available 08/02/2023 Do You Or Have You Ever Used Any Other Forms Of Tobacco Or Nicotine? No Information not available 08/02/2023 Sex: Female Functional Status None recorded. Mental Status None recorded. Family History Nothing Reported. Medical History No medical history recorded. Gynecological HistoryNo gynecological history recorded. Obstetrics History GPAL:G 0 P 0 0 0 0 Immunizations Vaccine Type Date Status Provider Name and Address Organization Details Recorded Time COVID-19, mRNA, LNP-S, bivalent, PF, 50 mcg/0.5 mL or 25mcg/0.25 mL dose 02/05/2023 completed DMITRY Olsen, [facility] 08/02/2023 10:01:56 COVID-19, mRNA, LNP-S, bivalent, PF, 30 mcg/0.3 mL dose 05/17/2020 completed DMITRY Olsen, [facility] 08/02/2023 10:02:05 COVID-19, mRNA, LNP-S, bivalent, PF, 30 mcg/0.3 mL dose 06/07/2020 completed DMITRY Olsen, [facility] 08/02/2023 10:02:09 COVID-19, mRNA, LNP-S, bivalent, PF, 30 mcg/0.3 mL dose 12/26/2020 completed DMITRY Olsen, [facility] 08/02/2023 10:02:11 COVID-19, mRNA, LNP-S, bivalent, PF, 30 mcg/0.3 mL dose 01/08/2022 completed DMITRY Olsen, [facility] 08/02/2023 10:02:14 COVID-19, mRNA, LNP-S, bivalent, PF, 30 mcg/0.3 mL dose 07/19/2021 completed DMITRY Olsen, [facility] 08/02/2023 10:02:18 Tdap 11/03/2012 completed DMITRY Olsen, [facility] 08/02/2023 10:02:25 zoster live 06/14/2021 completed DMITRY Olsen, [facility] 08/02/2023 10:02:43 zoster live 08/29/2021 completed DMITRY Olsen, [facility] 08/02/2023 10:02:46 influenza, unspecified formulation 01/21/2023 completed Cari Armstrong RN null, [facility] 08/02/2023 10:02:54 Past Encounters Encounter ID Performer Location Encounter Start Date Encounter Closed Date Diagnosis/Indication Diagnosis SNOMED-CT Code [id number] GRANT MORAN [address] [place] [address] 08/02/2023 09:05:48 08/02/2023 09:49:00 Cough [id number] Health Concerns Section Related Observation LastModified by Organization Detai ls LastModified Time None Recorded Concern Status LastModified by Organization Details LastModified Time None Recorded Advance Directives Directive None Recorded Payers Encounter Date Sequence Insurance Name Policy Number Policy Smith Covered Member ID Smith Member ID Guarantor Name 08/02/2023 1 *SELF PAY* Ca mary Luna Notes Date Note Type Note Provider Name and Address Organization Details Recorded Time 08/02/2023 text/html HPI Notes: Patie nt with onset of symptoms approximately 2 weeks ago, mild cough, rhinitis, congestion. No sore throat, no fevers when symptoms began. 4 days ago, began to notice worsening, with worsening cough (occasionally productive of thick, green sputum, other times dry), increase fatigue, chest heaviness and tightness, decreased appetite. Cough worse when laying down at night. Patient denies any lung issues, never a regular smoker. Patient with no history of PN. Has been taking OTC Tylenol due to headache worsened by coughing, and muscle aches/pains from frequent cough. Has trialed OTC Mucinex DM and plain guafenesin. Has used nasal saline, neti pot lavage. GRANT MORAN [facility] [address], [place], [address], [facility] 08/02/2023 11:11:52 OBGyn Episode No OBEpisode recorded.
--- OUTSIDE RECORDS SUMMARY | 2023-12-01 02:20 | XMS_ITS | Encounter Summary ---
Author Organization [facility] Address [address] [place] [address] Care Team Providers Care Timber Framer Helper Name Role Phone Evelyne Hunt DIRECTOR SALES Primary Care Provider [phone] Encounter Details Date Type Department Care Team (Late st Contact Info) Description 10/26/2020 Lab Requisition [facility] Pathology & Laboratory Medicine - [facility] [address] [place], [place] [address] Outr Resulting Lab, Provider Social History Tobacco [...] Date/Time Associated Diagnosis Comments CA 125 Routine 10/26/2020 11:08 EDT documented in this encounter Results * CA 125 (10/26/2020 11:08 EDT) CA 125 7 <30 U/mL 10/27/2020 10:13 EDT [facility] Comment: NOTE: Serum CA 125 concentration should not be interpreted as absolute evidence for the presence or absence of malignant disease. Assayed on Siemens ADVIA Centaur XPT using chemiluminescent technology. ??Values obtained by using different assay methods cannot be used interchangeably. Blood VENOUS BLOOD / Unknown 10/26/2020 11:08 EDT 10/26/2020 15:48 EDT Provider Outr Resulting Lab CHEMISTRY & BLOOD GAS ORDERABLES [facility] [address] [place] [address] documented in this encounter Visit Diagnoses Not on filedocumented in this encounter Care Teams Timber Framer Helper Relationship Specialty Start Date End Date Evelyne Hunt NP [address] [place] [id number] PCP - General 08/19/19 documented as of this encounter
--- OUTSIDE RECORDS SUMMARY | 2023-12-01 02:20 | XMS_ITS | Encounter Summary ---
Author Organization [facility] Address [address] [place] [address] Care Team Providers Care Airconditioning Plant Operator Name Role Phone Marilee, Evelyne A GLUE SPREADER Primary Care Provider [phone] Encounter Details Date Type Department Care Team (Late st Contact Info) Description 10/26/2019 Lab Requisition [facility] Pathology & Laboratory Medicine - [facility] [address] [place], [place] [address] Outr Resulting Lab, Provider Social History Tobacco [...] Procedure Name Priority Date/Time Associated Diagnosis Comments ZZCOVID-19 TEST [facility] PCR Today 10/26/2019 11:57 EDT COVID-19 TESTING Routine 10/26/2019 11:5 7 EDT documented in this encounter Results * COVID-19 TEST [facility] PCR (10/26/2019 11:57 EDT) Swab ENTIRE NASOPHARYNX / Unknown 10/26/2019 11:57 EDT 10/26/2019 16:00 EDT Provider Outr Resulting Lab MICROBIOLOGY - GENERAL ORDERABLES Performing Organization Address [facility] Co de Phone Number [facility] [address] [place] [address] * COVID-19 TESTING (10/26/2019 11:57 EDT) COVID-19 rt-PCR Result Negative Negative 10/26/2019 22:46 EDT [facility] Comment: This test has not been FDA cleared or approved. This test has been authorized by FDA under an EUA for use by authorized laboratories. This test has been authorized only for detection of nucleic acid from 2019-nCoV, not for any other viruses or pathogens. This test is only authorized for the duration of the declaration that circumstances exist justifying the authorization of emergency use of in vitro diagnostic tests for detection and/or diagnosis of 2019-nCoV under section 564(b)(1) of Act, 21 U.S.C ?? 360bbb-3(b) (1), unless the authorization is terminated or revoked sooner. Negative results do not preclude 2019-nCoV infection and should not be used as the sole basis for treatment or other patient management decisions. Negative results must be combined with clinical observations, patient history, and epidemiological information. Performed on the XGraphher Fusion instrument Performing Lab [facility] Lab 10/26/2019 22:46 EDT [facility] Swab 10/26/2019 11:5 7 EDT 10/26/2019 16:00 EDT Provider Outr Resulting Lab MICROBIOLOGY - GENERAL ORDERABLES Performing Organization Address [facility] Co de Phone Number [facility] [address] [place] [address] documented in this encounter Visit Diagnoses Not on filedocumented in this encounter Additional Health Concerns Infection Onset Date Last Indicated Resolved Time R/O COVID-19 10/26/2019 10/26/2019 10/31/2019 22:1 7 EDT documented as of this encounter Care Teams Airconditioning Plant Operator Relationship Specialty Start Date End Date Evelyne Hunt NP [address] [place] [address] PCP - General 08/19/19 documented as of this encounter
--- OUTSIDE RECORDS SUMMARY | 2023-12-01 02:20 | XMS_ITS | Encounter Summary ---
Author Organization [facility] Address [address] [place] [address] Care Team Providers Care Automatic Nailing Machine Feeder Name Role Phone Marilee Evelyne Daugherty MARITIME PILOT Primary Care Provider [phone] Encounter Details Date Type Department Care Team (Late st Contact Info) Description 12/09/2019 Lab Requisition [facility] Pathology & Laboratory Medicine - [facility] [address] [place], [place] [address] Outr Resulting Lab, Provider Social History Tobacco [...] Date/Time Associated Diagnosis Comments CA 125 Routine 12/09/2019 11:00 EDT documented in this encounter Results * CA 125 (12/09/2019 11:00 EDT) CA 125 8 <30 U/mL 12/10/2019 9:23 EDT [facility] Comment: NOTE: Serum CA 125 concentration should not be interpreted as absolute evidence for the presence or absence of malignant disease. Assayed on Siemens ADVIA Centaur XPT using chemiluminescent technology. ??Values obtained by using different assay methods cannot be used interchangeably. Blood VENOUS BLOOD / Unknown 12/09/2019 11:00 EDT 12/09/2019 15:42 EDT Provider Outr Resulting Lab CHEMISTRY & BLOOD GAS ORDERABLES [facility] [address] [place] [address] documented in this encounter Visit Diagnoses Not on filedocumented in this encounter Care Teams Automatic Nailing Machine Feeder Relationship Specialty Start Date End Date Evelyne Hunt NP [address] [place] [address] PCP - General 08/19/19 documented as of this encounter
--- OUTSIDE RECORDS SUMMARY | 2023-12-01 02:20 | XMS_ITS | Encounter Summary ---
Author Organization [facility] Address [address] [place] [address] Care Team Providers Care Surgery Attendant Name Role Phone MarileeKikiEvelyne A STOCK PATCHER Primary Care Provider [phone] Encounter Details Date Type Department Care Team (Late st Contact Info) Description 02/14/2020 Lab Requisition [facility] Pathology & Laboratory Medicine - [facility] [address] [place], [place] [address] Outr Resulting Lab, Provider Social History Tobacco [...] Date/Time Associated Diagnosis Comments CA 125 Routine 02/14/2020 11:09 EDT documented in this encounter Results * CA 125 (02/14/2020 11:09 EDT) CA 125 7 <30 U/mL 02/15/2020 8:56 EDT [facility] Comment: NOTE: Serum CA 125 concentration should not be interpreted as absolute evidence for the presence or absence of malignant disease. Assayed on Siemens ADVIA Centaur XPT using chemiluminescent technology. ??Values obtained by using different assay methods cannot be used interchangeably. Blood VENOUS BLOOD / Unknown 02/14/2020 11:09 EDT 02/14/2020 16:37 EDT Provider Outr Resulting Lab CHEMISTRY & BLOOD GAS ORDERABLES [facility] [address] [place] [address] documented in this encounter Visit Diagnoses Not on filedocumented in this encounter Care Teams Surgery Attendant Relationship Specialty Start Date End Date Evelyne Hunt NP [address] [place] [address] PCP - General 08/19/19 documented as of this encounter
--- OUTSIDE RECORDS SUMMARY | 2023-12-01 02:20 | XMS_ITS | Encounter Summary ---
Author Organization [facility] Address [address] [place] [address] Care Team Providers Care Tower Watchman Name Role Phone Akanksha Watson APRN Primary Care Provider [phone] Encounter Details Date Type Department Care Team (Latest Contact Info) Description 08/26/2013 17:15 EDT - 08/26/2013 23:59 EDT Hospital Encounter [address] [address] Unknown, Provider, Discharge Disposition: Home or Self Care Social History Tobacco Use Types Packs/Day Years Used Date Smoking Tobacco: Never Assessed Sex and Gender Information Value Date Recorded Sex Assigned at Not on file Gender Identity Female 08/19/2019 15:16 EDT Sexual Orientation Not on file documented as of this encounter Discharge Disposition Disposition Code Departure Means Destination Home or Self Senior Living documented in this encounter Plan of Treatment Not on file documented as of this encounter Visit Diagnoses Not on filedocumented in this encounter Care Teams Tower Watchman Relationship Specialty Start Date End Date Akanksha Watson APRN [address] [place] [address] PCP - General 06/03/12 08/18/19 documented as of this encounter
--- OUTSIDE RECORDS SUMMARY | 2023-12-01 02:20 | XMS_ITS | Data Portability ---
Author Organization [place] [facility] , Main Office--[place] Address [address] [address] Assessment Encounter Date Assessment Date Assessment LastModified by Organization Details LastModified Time 09/19/2020 09/19/2020 Telemedicine consult today. Consent attained prior to our meeting today, concept of telemedicine is well-understood . 30 minutes in consult today. Reviewed organic acid profile, reviewed diet diary. Discussed care plan options. [email or web address] Not available 09/19/2020 21:54:19 10/18/2020 10/18/2020 Telemedicine consult today. Consent attained prior to our meeting today, concept of telemedicine is well-understood . 30 minutes in consult today. [email or web address] Not available 10/18/2020 15:02:57 11/16/2020 11/16/2020 Telemedicine consult today. Consent attained prior to our meeting today, concept of telemedicine is well-understood . 30 minutes in consult today. [email or web address] Not available 11/22/2020 23:22:45 02/06/2021 02/06/2021 30 minutes were spent in [id number] visit today. During this time, I reviewed CT scan and recent labs during visit today on [facility]. CT scan on 02/01/2021 was unremarkable. CBC results low RBC and elevated RBC indices noted. CMP wnl except minor elevation (1.1) in bilirubin marker. Labs run on 01/30/21. Stool PCR for C. diff and O&P were WNL on 02/05/2021. We discussed treatment options, expectations for treatment, and potential benefit/risk profile of working with the protocol detailed below. [email or web address] Not available 02/06/2021 14:36:42 03/26/2021 03/26/2021 Telemedicine consult today. Consent attained prior to our meeting today, concept of telemedicine is well-understood . 39 minutes in consult today. -Discontinue Biocidin LSF -Switch probiomed 100 to 50 -Let's finish glutamine and then pulse off -Liposomal Vitamin C-- -redo organix in 2 months 39 minutes were spent in [id number] visit today. During this time, I reviewed recent labs during visit today on [facility]. CBC and CMP were stable since last assessment in January. Ca125 marker remains low. [email or web address] Not available 03/26/2021 16:35:15 Plan of Treatment Reminders Order Date Submit Date Provider Last Modified By Organization Details Last Modified Time Details Appointments None recorded. Lab T3, free, serum or plasma - Please fax results to 021 [email or web address] [facility] [address] [place] [address] [place], [address], 19:35:18 T4, free, serum - Please fax results to 021 [email or web address] [facility] [address] [place] [address] [place], [address], 19:35:49 TSH, serum or plasma - Please fax results to 021 [facility] [address] [place] [address] [place], [address], 16:32:07 Referral None recorded. Procedures None recorded. Surgeries None recorded. Imaging None recorded. Medication Orders None recorded. Patient TargetsNo targets recorded. Patient Instructions Encounter Date Encounter Id Patient Instructions Last Modified By Organization Details Last Modified Time 09/19/2020 [id number] Ivana Atkins! It was so nice to see you today in our visit. As promised, I am including an attachment (See the attachment to this correspondence) with an interpretive guide to the organic acid testing. I am hoping the the recommendations that I made will be a helpful part of your healing strategy. I was able to locate a liposomal form of the glutathione supplement here, so it will be straightforward to have it ordered all in one spot after all. The glutathione is a powerful antioxidant. Make sure to hold under your tongue for 30 seconds before swallowing. The glutathione was directly indicated on your organic acid test and I hope it will be helpful in protestant. I would like to start the GI healing with a glutamine supplement indicated below. This is [...] The B vitamins were indicated in a number of areas. These should be important to improving energy levels as well. For dietary recommendations, let's focus on the following: -Make it a goal to eat 5 full servings of vegetables daily. For reference, a full serving is generally 1/2 cup cooked vegetables or 1 cup raw. -Consider the food choices on the low-glycemic handout that I have attached here. -Ideally, please include at least 1 animal source of protein per day. -Focus on hydration. I want to make sure we support your digestive tract with adequate water each day. Make sure to drink at least 60 oz water per day. Continue to work with metta/lovingkindness exercises daily. I am hoping this is a good start. We have lots of tools to help in your healing process. Let's plan to follow-up on your progress in 4 weeks. Jose A, MM Attached documents: [email or web address]_one_shee t_1_.pdf, Organix_-_Interpretive _Guide.pdf Supplement recommendations: Active B-Complex (60 capsules) ([employer]): Please take 2 capsules, once / day (with meals. With breakfast or lunch. Can divide dose to one capsule daily. ). Liposomal Glutathione (50 Milliliters) (Mobiplex): 2 pumps, twice daily. Hold under tongue for 30 seconds before swallowing. Can be taken with or away from meals. . CoQ10 100mg (60 Softgels) ([employer]): Please take 1 gel, twice / day (with meals). L-Glutamine Powder (300 Grams) ([employer]): Please take 1 scoop, twice / day (1 scoop to liquid twice daily. Morning, Evening. Away from food by 30 minutes or more. ) Not available 09/19/2020 21:55:12 10/18/2020 [id number] Ivana Atkins! It was so nice to see you today! As a summary: -Consider a chiropractic consult for your neck pain and leg swelling. -Keep an eye on the swelling. If you note that there is any pain, throbbing, or discoloration of your skin, please get a physical exam or elicit an urgent care visit. Let's plan to discontinue glutamine for now to make sure that it's not contributing to the headaches. I am more suspicious that this is sinus related. -Let's plan to try mucinex and do some nasal/saline rinses to clear passages. I like the NeilMed rinses and squeeze bottles which can be found at the drug store. For memory, let's trial the phosphatidylserine listed below. Here are the recommendations that we'll trial this time. Warmly, MM Supplement recommendations: Active B-Complex (60 capsules) ([employer]): Please take 2 capsules, once / day (with meals. With breakfast or lunch. Can divide dose to one capsule daily. ). Liposomal Glutathione (50 Milliliters) (M[employer]): 2 pumps, twice daily. Hold under tongue for 30 seconds before swallowing. Can be taken with or away from meals. . CoQ10 100mg (60 Softgels) ([employer]): Please take 1 gel, twice / day (with meals). Phosphatidyl Serine (60 capsules) ([facility] [employer]): Please take 1 capsule, twice / day Not available 10/18/2020 15:02:55 11/16/2020 [id number] Dear Ivana, I hope that all is starting to resolve related to your skin concerns. As promised, I have faxed a lab order to [facility] for thyroid testing. Once things have stabilized, as discussed, let's plan to slowly add back the energy support supplements. Please plan to add one at a time to better assess response to each: Supplement recommendations: Active B-Complex (60 capsules) ([employer]): Please take 2 capsules, once / day (with meals. With breakfast or lunch. Can divide dose to one capsule daily. ). Liposomal Glutathione (50 Milliliters) (M[employer]): 2 pumps, twice daily. Hold under tongue for 30 seconds before swallowing. Can be taken with or away from meals. . CoQ10 100mg (60 Softgels) ([employer]): Please take 1 gel, twice / day (with meals). Phosphatidyl Serine (60 capsules) ([employer]): Please take 1 capsule, twice / day [email or web address] Not available 11/22/2020 23:35:13 02/06/2021 [id number] Dear Ivana, It wa s so nice to see you today! Here is the modified plan detailed below. GI Support: Biocidin drops -start with one drop daily to water for several days -slowly increase drops to 5 drops once daily. L-glutamine powder 1 scoop twice daily, away from food by 30 minutes (not firm) Probiomed 100 1 capsule daily with dinner For energy support: Liposomal glutathione 2 pumps, twice daily (AM, PM)--away from food by 30 minutes (not firm) CoQ10 100 mg (1 gelcap) once daily in the morning with breakfast Let's meet in 3 weeks to assess your progress and next steps. Warmly, MM Supplement recommendations: Liposomal Glutathione (50 Milliliters) ([employer]): null . CoQ10 100mg (60 Softgels) ([employer]): Please take 1 gel, three times / day . Biocidin Broad Spectrum Liquid Formula (Formerly Advanced Formula) (1 Ounce) (Biocidin): Please take 1 drop, three times / day (Gradually increase dosage to 5 drops. Children may use 1 drop per 10 lbs body weight per day, divided into 2 or 3 doses.). ProbioMed? ? 100 (30 capsules) ([employer]): Please take 1 capsule, once / day [email or web address] Not available 02/06/2021 13:55:37 03/26/2021 1632 Dear Ivana, It wa s so nice to see you today! Here is the modified plan detailed below. GI Support: When you have exhausted your supply, it's a good time to discontinue the Biocidin drops Continue at lower dosing: L-glutamine powder 1 scoop once daily, away from food by 30 minutes (not firm) Switch probiotics to lower potency formula: Probiomed 50 1 capsule daily with dinner For energy support: Continue: Liposomal glutathione 2 pumps, twice daily (AM, PM)--away from food by 30 minutes (not firm) Continue: CoQ10 100 mg (1 gelcap) once daily in the morning with breakfast Add back: B-complex at 1 capsule 2-3 times per week. If tolerated, consider dosing once daily with food in the AM. Please don't hesitate to reach out if you need any support. I am here for you and am hoping that you have a great new direction ahead. MAU Naranjo Supplement recommendations: Liposomal Glutathione (50 Milliliters) (M[employer]iplex): 2 pumps twice daily CoQ10 100mg (60 Softgels) ([employer]): Please take 1 gel, three times / day . ProbioMed? ? 50 (30 capsules) ([employer]): Please take 1 capsule, once / day L-glutamine powder 1 scoop once daily, away from food by 30 minutes (not firm) [email or web address] Not available 03/26/2021 16:38:28 Reason for Referral None Reported. Results Created Date Observation Date Name Description Value Unit Range Abnormal Flag LastModifiedBy Organization Detail LastModifiedTime Result Notes None recorded. Procedures Surgical History Date Name Laterality Status Provider Name and Address Organization Details Recorded Time 04/21/19 20 hysterectomy completed Jaqueline He [address], [address], [facility] 09/19/2020 19:34:50 04/21/19 20 Appendectomy completed Jaqueline He ND [address] [place] [address], [address], [facility] 09/19/2020 19:35:21 04/21/18 82 section completed Jaqueline He [address], [address], [facility] 09/19/2020 19:35:51 Imaging Results None recorded. Procedure Notes None recorded. Medical Equipment None Reported. Allergies Allergen ID Allergen Name Allergen Category Reaction Reaction Severity Criticality Documentation Date Start Date Code Code System Note Provider Name and Address Organization Details Recorded Time 245 Medicinal product containin g penicilli n and acting as antibacte rial agent (product) medicatio n anaphylax is Not available Not available 08/21/2020 18832 05 SNOMED Jaqueline He, [place] [address], [address], [place], [address], [place] [facility] 10:45:13 246 paroxetin e Not available other Not available Not available 08/21/2020 22060 RxNorm Jaqueline He, ND [address], [address], [place], [address], [place] [facility] 10:46:43 247 paclitaxe l medicatio n anaphylax is Not available Not available 08/21/2020 37290 RxEhsan He, ND [address], [address], [place], [address], [place] [facility] 10:46:51 Medications Name Sig Start Date Stop Date Status Note LastModified by Organization Details LastModified Time atorvastati n 40 mg tablet active Not Available Not Available Not Available cetirizine 10 mg tablet TAKE ONE TABLET BY MOUTH DAILY active Not Available Not Available No t Available atorvastati n 10 mg tablet TAKE 1 TABLET BY MOUTH DAILY active Not Available Not Available No t Available ibuprofen 800 mg tablet TAKE 1 TABLET BY MOUTH THREE TIMES DAILY NEEDED FOR FOR PAIN active Not Available Not Available No t Available diltiazem CD 180 mg capsule,ext ended release 24 hr TK ONE C PO D active Not Available Not Available No t Available benzonatate 200 mg capsule TAKE 1 CAPSULE BY MOUTH THREE TIMES DAILY NEEDED FOR COUGH active Not Available Not Available No t Available metoprolol succinate ER 50 mg tablet,exte nded release 24 hr TAKE ONE TABLET BY MOUTH DAILY active Not Available Not Available No t Available hydrocodone 5 mg-acetamin ophen 325 mg tablet active Not Available Not Available No t Available diltiazem CD 240 mg capsule,ext ended release 24 hr TAKE 1 CAPSULE BY MOUTH DAILY active Not Available Not Available No t Available prochlorper azine maleate 10 mg tablet TK 1 T PO Q 6 H PRF NAUSEA active Not Available Not Available No t Available triamcinolo ne acetonide 0.1 % topical cream APPLY TO AFFECTED AREA OF THE TRUNK AND EXTREMITI ES TWICE DAILY FOR 14 DAYS THEN TAKE 1 WEEK OFF. REPEAT NEEDED active Not Available Not Available No t Available lorazepam 0.5 mg tablet TAKE 1 TABLET BY MOUTH EVERY 6 HOURS NEEDED FOR ANXIETY active Not Available Not Available No t Available diltiazem CD 120 mg capsule,ext ended release 24 hr TAKE 3 CAPSULES BY MOUTH DAILY active Not Available Not Available No t Available hydrochloro thiazide 25 mg tablet TK 1 T PO QD active Not Available Not Available No t Available metoprolol succinate ER 25 mg tablet,exte nded release 24 hr TAKE 1 TABLET BY MOUTH DAILY active Not Available Not Available No t Available clobetasol 0.05 % topical ointment APPLY A SMALL DOT SPARINGLY 3 MM WIDE EVERY NIGHT FOR 6 WEEKS THEN 1TO 3 TIMES PER WEEK FOR MAINTAINC E active Not Available Not Available No t Available methylpredn isolone 4 mg tablets in a dose pack TAKE DIRECTED PER PACKAGE 02/06 completed Not Available Not Available Not Available hydrocodone 10 mg-chlorphe niramine 8 mg/5 mL oral susp extend.rel 12hr active Not Available Not Available Not Available bupropion HCl XL 300 mg 24 hr tablet, extended release TAKE 1 TABLET BY MOUTH EVERY MORNING active Not Available Not Available No t Available bupropion HCl XL 150 mg 24 hr tablet, extended release TK 1 T PO QAM 02/06 completed Not Available Not Available Not Available Zejula 100 mg capsule Take 1 capsule every day by oral route. active Not Available Not Available No t Available Vitals Date Recorded Body height Body temperature Body mass index (BMI) Body weight Systolic blood pressure Diastolic blood pressure Provider Name and Address Organization Details Last Updated DateTime 1 165.1 cm 97.3 [degF] 22.5 kg/m2 91330.9 7 g 120 mm[Hg] 75 mm[Hg] Jaqueline He, [address], [address], [place], [address] , [place] [facility] 1 14:19:18 Social History None recorded. Functional Status None recorded. Mental Status None recorded. Family History Relationship Description Onset Age of this Age Resolved Age Notes Brother Heart disease Brother Parkinson's disease Brother Alcohol abuse Mother Heart disease Mother Asthma Father Alcohol abuse Maternal Aunt Ovarian cancer, disseminated Medical History Condition Response Heart Problems Headaches Y Depression Y Gynecological HistoryNo gynecological history recorded. Obstetrics History GPAL:G 0 P 0 0 0 0 Past Encounters Encounter ID Performer Location Encounter Start Date Encounter Closed Date Diagnosis/Indication Diagnosis SNOMED-CT Code [id number] [facility] [address] 08/21/2020 09:56:09 08/23/2020 22:57:49 Fatigue 45141883 History of malignant neoplasm of ovary [id number] Jaqueline He [place] [facility] [address] 09/19/2020 08:29:39 09/19/2020 22:05:05 Fatigue 14210644 History of malignant neoplasm of ovary 125269479 Supraventr icular tachycardia 0631260 Aortic valve stenosis 60 [id number] Jaqueline SOUMYA [facility]H [facility] [address] 10/18/2020 13:59:11 10/18/2020 15:40:40 Fatigue 61779764 History of malignant neoplasm of ovary 693987503 Supraventr icular tachycardia 5745438 Aortic valve stenosis 60 [id number] Jaqueline He SOUMYA [facility] [address] 11/16/2020 13:23:12 11/16/2020 15:11:05 Pruritic rash 99099194 Hypothyroidism 51199252 Fatigue 12131594 [id number] Jaqueline SOUMYA He [facility] [address] 02/06/2021 13:00:14 02/06/2021 14:08:53 Fatigue 85174685 Altered bethany wel function [id number] Jaqueline He [place] [facility] [address] 03/26/2021 09:30:21 03/26/2021 10:30:45 Fatigue 17896055 Altered bethany wel function 03541058 Health Concerns Section Related Observation LastModified by Organization Detai ls LastModified Time None Recorded Concern Status LastModified by Organization Details LastModified Time None Recorded Advance Directives Directive None Recorded Payers Encounter Date Sequence Insurance Name Policy Number Policy Smith Covered Member ID Smith Member ID Guarantor Name 09/19/2020 1 [employer] [facility] [place] [facility] ([place] [id number] Gabi Bertolini [id number] Gabi Bertolini 10/18/2020 1 [employer] [facility] [place] [facility] [place] [facility] ([place] [id number] Gabi Bertolini [id number] Gabi Bertolini 11/16/2020 1 [employer] [facility] [place] [facility] [place] [facility] ([place] [id number] Gabi Bertolini [id number] Gabi Bertolini 02/06/2021 1 [employer] [facility] [place] [facility] [place] [facility] ([place] [id number] Gabi Bertolini [id number] Gabi Bertolini 03/26/2021 1 [employer] [facility] [place] [facility] [place] [facility] ([place] [id number] Gabi Bertolini [id number] Gabi Bertolini Notes Date Note Type Note Provider Name and Address Organization Details Recorded Time 09/19/2020 text/html HPI Notes: Ivana and I met by by telemedicine today to review labs and to review updates since last meeting. Ivana reports that she did have continuous cardiac event monitoring for 19 days. 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 No changes were made to her care plan. Ivana reports intense fatigue. This is the aspect of her current health status that creates disruption. 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 She is currently monitored for this concern. Jaqueline He, [address], [address], [place], [address], [place] [facility] 09/19/2020 22:03:43 10/18/2020 text/html HPI Notes: Ivana and I had a telemedicine consult today to check in on chronic concerns and progress on protocol. A couple of weeks ago, she had a massage and after this, had an onset of symptoms come on for which she cannot pinpoint a cause. Ivana noted that she had some body work recently and found herself very sore after the body work. Swelling of left leg. This is up and down, intermittently symptom. She notes that there is no pitting edema. Swelling includes knee to ankle. Prior trauma to the L. ankle but nothing recent. She denies pain in the leg. No throbbing, no temperature change in the leg. She does have neuropathy in both feet. She finds that her left foot looks a bit more blue, but this is not a major concern to her. She notes that the symptom tends to come on late in the day. Elevating the leg helps somewhat. She felt very sore following the She notes swelling of the left leg. She is having headache, origin is at the left orbit. She finds that her neck is very sore. She has had MONTANO intermittently. Several times per week. Ivana has a hx of migraine MONTANO. She has a hx of left-sided migraines. These current MONTANO are not as severe. This is a dull, constant ache. Localized pain in the orbit. She is trying not to take acetaminophen or NSAIDs for fear of rebound MONTANO. She is adequately hydrated. She has had more post-nasal drip than typical. She has had once incident in which she feels cross eyed. This seems to last for a few seconds. She can close her eyes and things improve shortly thereafter. Ivana had her port removed 2 weeks ago today. She is scheduled for blood work next week and has a meeting with the oncologist soon. She reports that since she began taking the new supplements, her energy has improved and fatigue has been minimized. Ivana reports that she hasn't had any palpitations. This has improved. She was planning to have her blood drawn next Friday or Friday. Neck pain--worse with movement. Pain in upper traps and neck. She hasn't had spiritual care coordinator. She reports that one things she had hoped to discuss today is that she's having some memory issues. 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 She notes that the healthier she gets, the more she notices this. She gets stuck. Someone can tell her something and then in five minutes, she cannot recall what they have said. Jaqueline He, [place] [address] [facility], [address], [place], [address], [facility] 10/18/2020 15:04:45 11/16/2020 text/html HPI Notes: Ivana and Ermias had a telemedicine consult today to follow up on several concerns including pruritis, skin rashes. Ivana and Ermias had spoken by phone on 11/08 regarding abdominal bloating and pruritis. At the time, I had advised Ivana to discontinue all supplementation, although She had stopped doing all supplementation. She consulted with her PCP regarding skin rashes. She sent photos of some of the lesions on her trunk today. She has stopped everything that she was taking. She is taking methylprednisone and another antihistamine tx right now. She noted that the rash symptoms and pruritis began to decrease in severity when she began to take the medrol dose pack. Questions role of stress in the outbreak of her skin rash. Reviewed thyroid function markers, which were remarkable for elevated TSH and borderline high TSH over serial assessments. 119 to 138 change in weight Eating a lot. High appetite. Follow-up scheduled for next week. February 2020: Cancer dx December 20, 2019 She had 2 platelet transfusions and a blood transfusion Due to PARP-inhibitor therapy. [facility] Oncology--aware of skin rash. No colonoscopy since 2016. Cannot schedule this at local hospital due to underlying cardiac abnormality. Her PCP has initiated a referral for colo at [facility]. In February 2020, her dosing of Zejula was dropped from 200 mg to 100 g due to hematologic adverse effects. Antihistamine and medrol dose pack were prescribed at the same time with pruritic symptoms. Jaqueline He, [address], [address] [facility], [place], [address], [place] [facility] 11/22/2020 23:35:52 02/06/2021 text/html HPI Notes: Ivana and Ermias met today to follow up on energy levels (fatigue), rashes (hives), and to discuss new concerns of digestive function changes. Recently had blood work and CT scan of chest, abdomen, and pelvis. All were WNL. These have been done in the past two weeks. Consult with [facility] dermatology -rash -was evaluated, no known cause of rash -was prescribed a topical antisteroidal -biopsied lesion on back, benign findings on biopsy -has been using Ceravie lotions and creams per [facility] recommendations Concern about digestive symptoms: -She reports that she had been doing well until recently re: digestion; very regular, daily BM -symptoms of alternating constipation and diarrhea, pain in the abdomen came out of the blue, no particular inciting incident about 1 month ago. -reports that she's had significant diarrhea for days -was having a BM multiple times per day, she had been going 6 times in one night -greasy stools, grease or mucus in the water -denies blood -abdominal pain when she has the diarrhea, lower abdomen, more pronounced discomfort on the left side -severe pain was followed by diarrhea -avoiding: bread, dairy (minimal) -drinking kombucha, eating yogurt -She has not had a BM since last night. -had been extremely constipated, had to take miralax two weeks ago -She would have a couple of days between bowel movements. -alternating constipation and diarrhea since cancer treatment -feels like she's lost weight with the digestive distress -felt like heartburn in the lower abdomen. No GERD symptoms. -eating regular meals, has an appetite -She reports that the stools were really odorous. Had CT scan of chest, pelvis, abdomen per her PCP recommendation. I reviewed these on VITL. Fatigue: -she felt like she had been doing well on her supplements. -once she broke out into hives, she had stopped doing all of her supplement -has had some decrease in energy since she stopped her supplementation. She quit her job 3 weeks ago, January 18 was her last day. She had a very high stress job and finally decided to liberate herself from the responsibility. She has decided to take a long break to engage in some self care for a while. Still having blood work every 6 weeks due to her Zejula medication. Body weight loss from 138 to 133 with recent diarrheal illness. Jaqueline He, [place] [address] [facility], [address], [place], [address], [place] - [facility] 02/06/2021 14:36:47 03/26/2021 text/html HPI Notes: Ivana and I had a telemedicine consult today to follow up on digestive concerns, fatigue, and hx of rashes/hives. Reporting on acute URI: -had a nasty cold for one month -tickles in her throat, runny nose -has been taking mucinex -she is feeling much improved -down for one month on and off -had two COVID tests, which were both negative -blood work last week was mostly normal Digestion: -glutamine powder in the AM -lemon water in the AM -finds that alt constipation and diarrhea are not problematic at present on current protocol -having regular, formed daily BM. Energy: -later in the day, her energy is awful -she is uncertain about whether this is normal or whether it's indicative of a larger problem -walking daily -has a yoga class on Tuesdays Ivana reports that she's not taking the B-complex at present. Was unsure if this contributed to rash in the past. Has resumed phosphatidylserine, probiotic, CoQ10, liposomal glutathione, and biocidin drops. Skin has been clear, no rashes, no hives. Hair is not growing. 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 Feeling pretty good overall. Mental/emotional/stres s: -since quitting job, has been in a transition phase -relieved that she has less stress around job circumstances/responsi blity, but feels stressed about financial ramifications of not working -big lifestyle shift at present -has some concerns about listlessness since d/c frantic work pace -has some concerns about next direction in her life -has good social support, walks with a friend regularly Jaqueline He, [place] [address], [address], [place], [address], [place] [facility] 03/26/2021 16:38:50 OBGyn Episode No OBEpisode recorded.
--- OUTSIDE RECORDS SUMMARY | 2023-12-01 02:20 | XMS_ITS | Encounter Summary ---
Author Organization [facility] Address [address] [place] [address] Care Team Providers Care Luggage Liner Name Role Phone Evelyne Hunt Dat ELECTRIC ACCOUNTING MACHINE OPERATOR Primary Care Provider [phone] Encounter Details Date Type Department Care Team (Late st Contact Info) Description 03/13/2020 Lab Requisition [facility] Pathology & Laboratory Medicine - [facility] [address] [place] [address] Natalie Vallejo MD [facility] [id number] Encounter for other general examination Social History Tobacco Use Types Packs/Day Years [...] Priority Date/Time Associated Diagnosis Comments CA 125 Today 03/13/2020 10:56 EST Encounter for other general examination documented in this encounter Results * CA 125 (03/13/2020 10:56 EST) CA 125 6 <30 U/mL 03/14/2020 9:25 EST [facility] Comment: NOTE: Serum CA 125 concentration should not be interpreted as absolute evidence for the presence or absence of malignant disease. Assayed on Siemens ADVIA Xuanyixiaaur XPT using chemiluminescent technology. ??Values obtained by using different assay methods cannot be used interchangeably. Blood VENOUS BLOOD / Unknown 03/13/2020 10:56 EST 03/13/2020 16:21 EST Natalie Vallejo MD CHEMISTRY & BLOOD GA S ORDERABLES [facility] [address] [place] [address] documented in this encounter Visit Diagnoses Diagnosis Encounter for other general examination documented in this encounter Care Teams Luggage Liner Relationship Specialty Start Date End Date Evelyne Hunt NP [address] [place] [address] PCP - General 08/19/19 documented as of this encounter
--- OUTSIDE RECORDS SUMMARY | 2023-12-01 02:20 | XMS_ITS | Encounter Summary ---
Author Organization [facility] Address [address] [place] [address] Care Team Providers Care Business Technology Professor Name Role Phone Unavailable Primary Care Provider Unavailabl e Encounter Details Date Type Department Care Team (Late st Contact Info) Description 06/27/2003 Results Only [facility] [address] [place] [address] Angie Gonzalez, MEERA Social History Tobacco Use [...] Priority Date/Time Associated Diagnosis Comments CYTOPATHOLOGY Routine 06/27/2003 0:00 EST documented in this encounter Results * CYTOPATHOLOGY (06/27/2003 0:00 EST) Pathology Report: CYTOPATHOLOGY REPORT Reports generated via electronic interface contain original data; however they are lacking the format of the original report. Caution should be taken when reading/interpreti ng unformatted reports. Name: ? KELVIN WALLER ? Accession #: ? [id number] : ? 1960 (Age: 42) ??F ?Collect Date: ? 06/27/2003 Location: ? [facility] ? Receive Date: ? 06/29/2003 Provider: ?ANGIE GONZALEZ TRANSPORTATION ASSISTANT Copy to: ? Specimen/Source: ?ThinPrep Pap Test, Cervix/Endocervix Last Menstrual Period: ? 06/08/2003 ? SPECIMEN ADEQUACY ? Satisfactory for Evaluation - transformation zone component present GENERAL CATEGORIZATION ? Negative for Intraepithelial Lesion or Malignancy ? Document reviewed and electronically signed by: ? CINDY Chao(ASCP) ? Report Date: ??07/05/2003 10:45 End of Report [facility] 06/27/2003 06/29/2003 Angie Gonzalez NP PATHOLOGY ORDERABLES [facility] [address] [place] [address] documented in this encounter Visit Diagnoses Not on filedocumented in this encounter
--- OUTSIDE RECORDS SUMMARY | 2023-12-01 02:20 | XMS_ITS | Encounter Summary ---
Author Organization [facility] Address [address] [place] [address] Care Team Providers Care Agronomist Name Role Phone MarileeDarleen hoffmanntahira Daugherty TOP SCREW Primary Care Provider [phone] Encounter Details Date Type Department Care Team (Late st Contact Info) Description 10/28/2019 Lab Requisition [facility] Pathology & Laboratory Medicine - [facility] [address] [place], [place] [address] Outr Resulting Lab, Provider Social History Tobacco [...] Date/Time Associated Diagnosis Comments CA 125 Routine 10/28/2019 10:54 EDT documented in this encounter Results * CA 125 (10/28/2019 10:54 EDT) CA 125 9 <30 U/mL 10/29/2019 10:02 EDT [facility] Comment: NOTE: Serum CA 125 concentration should not be interpreted as absolute evidence for the presence or absence of malignant disease. Assayed on Siemens ADVIA ContinuityX Solutionsaur XPT using chemiluminescent technology. ??Values obtained by using different assay methods cannot be used interchangeably. Blood VENOUS BLOOD / Unknown 10/28/2019 10:54 EDT 10/28/2019 16:10 EDT Provider Outr Resulting Lab CHEMISTRY & BLOOD GAS ORDERABLES [facility] [address] [place] [address] documented in this encounter Visit Diagnoses Not on filedocumented in this encounter Additional Health Concerns Infection Onset Date Last Indicated Resolved Time R/O COVID-19 10/26/2019 10/26/2019 10/31/2019 22:1 7 EDT documented as of this encounter Care Teams Agronomist Relationship Specialty Start Date End Date Evelyne Hunt, MEERA [address] [place] [address] PCP - General 08/19/19 documented as of this encounter
--- OUTSIDE RECORDS SUMMARY | 2023-12-01 02:20 | XMS_ITS | Encounter Summary ---
Author Organization [facility] Address [address] [place] [address] Care Team Providers Care Medical Logistics Specialist Name Role Phone Unavailable Primary Care Provider Unavailabl e Encounter Details Date Type Department Care Team (Late st Contact Info) Description 12/05/2010 Results Only [facility] [phone] Pa Watson, CLOTH DOFFER [address] [place], [place] [address] Social History Tobacco Use Types Packs/Day Years [...] Diagnosis Comments PAP TEST- RESULT ONLY Routine 12/05/2010 0:00 EDT documented in this encounter Results * PAP TEST- RESULT ONLY (12/05/2010 0:00 EDT) Pathology Report: CYTOPATHOLOGY REPORT ? Reports generated via electronic interface contain original data; ? however they are lacking the format of the original report. ? Caution should be taken when reading/interpreti ng unformatted reports. ? Name: ? KELVIN WALLER ? Accession #: ? [id number] ? : ? 1960 (Age: 50) ??F ?Collect Date: ? 12/05/2010 ? Location: ? [facility] ? Receive Date: ? 12/07/2010 ? Provider: ?PA WATSON CLOTH DOFFER ? Copy to: ? Specimen/Source: ?Pap Test, Cervix, ThinPrep Imaging System with manual ?? evaluation ? Last Menstrual Period: ? Previous Gynecologic Pathology: ? Yes: ? SPECIMEN ADEQUACY ? Satisfactory for Evaluation ? - transformation zone component present ? GENERAL CATEGORIZATION ? Negative for Intraepithelial Lesion or Malignancy ? Document reviewed and electronically signed by: ? Yovani Dickinson, CT(ASCP) ? Report Date: ??12/12/2010 14:49 ? End of Report ? [facility] 12/05/2010 12/07/2010 Pa Watson CLOTH DOFFER PATHOLOGY ORDERAB LES [facility] [address] [place] [address] documented in this encounter Visit Diagnoses Not on filedocumented in this encounter
--- OUTSIDE RECORDS SUMMARY | 2023-12-01 02:20 | XMS_ITS | Encounter Summary ---
Author Organization [facility] Address [address] [place] [address] Care Team Providers Care It Senior Software Engineer Java Name Role Phone Unavailable Primary Care Provider Unavailabl e Encounter Details Date Type Department Care Team (Late st Contact Info) Description 03/09/2007 Results Only [facility] [place] [address] [place] [address] Sandoval Maldonado MD [address] [place] [address] Social History Tobacco Use Types Packs/Day Years Used Date Smoking Tobacco: Never Assessed Sex and Gender Information Value Date Recorded Sex Assigned at Not on file Gender Identity Female 08/19/2019 15:16 EDT Sexual Orientation Not on file documented as of this encounter Plan of Treatment Not on file documented as of this encounter Procedures Procedure Name Priority Date/Time Associated Diagnosis Comments SURGICAL PATHOLOGY Routine 03/09/2007 0:00 EST documented in this encounter Results * SURGICAL PATHOLOGY (03/09/2007 0:00 EST) Pathology Report: SURGICAL PATHOLOGY REPORT Reports generated via electronic interface contain original data; however they are lacking the format of the original report. Caution should be taken when reading/interpreti ng unformatted reports. Name: ? KELVIN WALLER ? Accession #: ? [id number] ? : ? 1960 (Age: 46) ??F ? Collect Date: ? 03/09/2007 ? Location: ? [facility] ? Receive Date: ? 03/09/2007 ? Provider: SANDOVAL MALDONADO MD Copy to: ? Final Pathologic Diagnosis: A. ?Duodenum, mucosa, biopsies: 1. ?Duodenal mucosa with no pathologic features. 2. ? No evidence of celiac sprue. B. ?Stomach, antrum, biopsy: 1. ?Antral mucosa with no pathologic features. 2. ? No Helicobacter pylori-like microorganisms identified on H&E-stained sections. C. ?Stomach, body, biopsy: 1. ?Body-type mucosa with no pathologic features. 2. ? No evidence of Helicobacter pylori-like organisms on H&E stain. D. ?Gastroesophageal junction, 40 cm, biopsy: 1. ?No tissue received. ??See comment. E. ?Terminal ileum, biopsies: 1. ?Ileal mucosa with no pathologic features. F. ?Colon, random, biopsies: 1. ?Colonic mucosa with no pathologic features. G. ?Rectum, biopsies: 1. ?Colonic mucosa with no pathologic features. H. ?Rectum, ? polyp, biopsy: 1. ?Colonic mucosa with no pathologic features. 2. ? No polyp identified. Comment: ? There is no specimen received in the container labelled gastroesophageal junction. ??Correlation with endoscopic report is essential. ??There is a small lymphoid aggregate within the rectum ? polyp biopsy which may correlate with the endoscopic findings. ??(Dr. Rivera)/[facility] Document reviewed and electronically signed by: Monse Rivera MD Report ??Date: 03/11/2007 17:26 By the signature above, the attending physician certifies that he/she has personally conducted a gross and/or microscopic examination of the described specimens and rendered or confirmed the above diagnosis. Specimen(s) Received: A. ?Duodenal mucosa bx B. ? Gastric antrum bx C. ? Gastric body bx D. ? EG junction at 40 cm bx E. ? Terminal ileum bx F. ? Random colon bx G. ? Rectal bx H. ? rectal polyp Clinical History: ? Change in bowel habits; diarrhea; rectal bleeding Gross Description: ? Received in Hollande's fixative labelled Bertolini and #1 bx duodenal mucosa are two biopsies measuring 0.2 x 0.2 x 0.1 cm and 0.3 x 0.2 x 0.2 cm. The specimens are submitted intact as (A). Received in Hollande's fixative labelled Bertolini and #2 gastric antrum bx is a 0.2 x 0.2 x 0.2 cm biopsy. ??The specimen is submitted intact as (B). Received in Hollande's fixative labelled Bertolini and gastric body bx is a 0.3 x 0.2 x 0.2 cm biopsy. ??The specimen is submitted intact as (C). Received in Hollande's fixative labelled Bertolini and #4 EG junction at 40 cm is a specimen container which contains no specimen. ??The clinician has been notified. ??No block (D) submitted. Received in Hollande's fixative labelled Bertolini and #5 terminal ileum are two biopsies measuring 0.3 x 0.2 x 0.1 cm and 0.2 x 0.2 x 0.2 cm. ??The specimens are submitted intact as (E). Received in Hollande's fixative labelled Bertolini and #6 random colon bx are six biopsies which vary in size from 0.1 x 0.1 x 0.1 cm up to 0.3 x 0.2 x 0.1 cm. ??The specimens are submitted intact as (F1) and (F2). Received in Hollande's fixative labelled Bertolini and #7 rectal biopsy are two biopsies measuring 0.2 x 0.2 x 0.2 cm and 0.3 x 0.2 x 0.2 cm. ??The specimens are submitted intact as (G). Received in Hollande's fixative labelled Bertolini and #8 ? rectal polyp is a 0.3 x 0.3 x 0.2 cm biopsy. ??The specimen is submitted intact as (H). ??(DARLIN Goss)/jef End of Report [facility] 03/09/2007 03/09/2007 20: 26 EST Sandoval Maldonado MD PATHOLOGY ORDERABLES [facility] [address] [place] [address] documented in this encounter Visit Diagnoses Not on filedocumented in this encounter
--- OUTSIDE RECORDS SUMMARY | 2023-12-01 02:20 | XMS_ITS | Encounter Summary ---
Author Organization [facility] Address [address] [place] [address] Care Team Providers Care Yard Crane Operator Name Role Phone Evelyne Hunt Dat ASSISTANT PROFESSOR OF COMMUNICATION Primary Care Provider [phone] Encounter Details Date Type Department Care Team (Late st Contact Info) Description 09/14/2019 Lab Requisition [facility] Pathology & Laboratory Medicine - [facility] [address] [place], [place] [address] Outr Resulting Lab, Provider Social History Tobacco [...] Date/Time Associated Diagnosis Comments CA 125 Routine 09/14/2019 12:15 EDT documented in this encounter Results * CA 125 (09/14/2019 12:15 EDT) CA 125 12 <30 U/mL 09/15/2019 10:12 EDT [facility] Comment: NOTE: Serum CA 125 concentration should not be interpreted as absolute evidence for the presence or absence of malignant disease. Assayed on Siemens ADVIA Yippyaur XPT using chemiluminescent technology. ??Values obtained by using different assay methods cannot be used interchangeably. Blood VENOUS BLOOD / Unknown 09/14/2019 12:15 EDT 09/14/2019 15:34 EDT Provider Outr Resulting Lab CHEMISTRY & BLOOD GAS ORDERABLES [facility] [address] [place] [address] documented in this encounter Visit Diagnoses Not on filedocumented in this encounter Additional Health Concerns Infection Onset Date Last Indicated Resolved Time R/O COVID-19 10/26/2019 10/26/2019 10/31/2019 22:1 7 EDT documented as of this encounter Care Teams Yard Crane Operator Relationship Specialty Start Date End Date Evelyne Hunt, MEERA [address] [place] [address] PCP - General 08/19/19 documented as of this encounter
--- OUTSIDE RECORDS SUMMARY | 2023-12-01 02:20 | XMS_ITS | Encounter Summary ---
Author Organization [facility] Address [address] [place] [address] Care Team Providers Care Earth Sciences Professor Name Role Phone Evelyne Hunt RESEARCH DIETITIAN Primary Care Provider [phone] Encounter Details Date Type Department Care Team (Late st Contact Info) Description 02/05/2021 Lab Requisition [facility] Pathology & Laboratory Medicine - [facility] [address] [place], [place] [address] Outr Resulting Lab, Provider Social History Tobacco [...] Procedure Name Priority Date/Time Associated Diagnosis Comments OVA/PARASITE EXAM Routine 02/05/2021 12: 00 EDT documented in this encounter Results * OVA/PARASITE EXAM (02/05/2021 12:00 EDT) Parasite No ova and parasites seen. 02/06/2021 11:10 EDT [facility] Feces SPECIMEN FROM RECTUM / Unknown 02/05/2021 12:00 EDT 02/05/2021 21:18 EDT Narrative [facility] - 02/06/2021 11:10 EDT (If Cryptosporidium, Cyclospora, or Microsporidium are suspected, specific tests must be requested.) Single negative specimen does not rule out the possibility of a parasitic infection. Provider Outr Resulting Lab MICROBIOLOGY - GENERAL ORDERABLES Performing Organization Address City/State/[facility] Co de Phone Number [facility] [address] [place] [address] documented in this encounter Visit Diagnoses Not on filedocumented in this encounter Care Teams Earth Sciences Professor Relationship Specialty Start Date End Date Evelyne Hunt NP [address] [place] [address] PCP - General 08/19/19 documented as of this encounter
--- OUTSIDE RECORDS SUMMARY | 2023-12-01 02:20 | XMS_ITS | Encounter Summary ---
Author Organization [facility] Address [address] [place] [address] Care Team Providers Care Mortgage Processing Clerk Name Role Phone Marilee Evelyne Daugherty GLUE MILL OPERATOR Primary Care Provider Encounter Details Date Type Department Care Team (Late st Contact Info) Description 01/27/2020 Lab Requisition [facility] Pathology & Laboratory Medicine - [facility] [address] [place], [place] [address] Outr Resulting Lab, Provider Social History Tobacco [...] Priority Date/Time Associated Diagnosis Comments T3 FREE Routine 01/27/2020 10:05 EDT documented in this encounter Results * T3 FREE (01/27/2020 10:05 EDT) T3, Free 3.5 2.8 - 5.3 pg/mL 01/27/2020 17:38 EDT [facility] Blood VENOUS BLOOD / Unknown 01/27/2020 10:05 EDT 01/27/2020 17:10 EDT Provider Outr Resulting Lab CHEMISTRY & BLOOD GAS ORDERABLES [facility] [address] [place] [address] documented in this encounter Visit Diagnoses Not on filedocumented in this encounter Care Teams Mortgage Processing Clerk Relationship Specialty Start Date End Date Evelyne Hunt NP [address] [place] [address] PCP - General 08/19/19 documented as of this encounter
--- OUTSIDE RECORDS SUMMARY | 2023-12-01 02:20 | XMS_ITS | Encounter Summary ---
Author Organization [facility] Address [address] [place] [address] Care Team Providers Care Traverse Rod Assembler Name Role Phone Evelyne Hunt SHEET ROCK TAPER HELPER Primary Care Provider [phone] Encounter Details Date Type Department Care Team (Late st Contact Info) Description 05/08/2020 Lab Requisition [facility] Pathology & Laboratory Medicine - [facility] [address] [place], [place] [address] Outr Resulting Lab, Provider Social History Tobacco [...] Date/Time Associated Diagnosis Comments CA 125 Routine 05/08/2020 11:16 EST documented in this encounter Results * CA 125 (05/08/2020 11:16 EST) CA 125 6 <30 U/mL 05/09/2020 10:04 EST [facility] Comment: NOTE: Serum CA 125 concentration should not be interpreted as absolute evidence for the presence or absence of malignant disease. Assayed on Siemens ADVIA Centaur XPT using chemiluminescent technology. ??Values obtained by using different assay methods cannot be used interchangeably. Blood VENOUS BLOOD / Unknown 05/08/2020 11:16 EST 05/08/2020 20:49 EST Provider Outr Resulting Lab CHEMISTRY & BLOOD GAS ORDERABLES Performing Organization Address City/State/[facility] Co de Phone Number [facility] [address] [place] [address] documented in this encounter Visit Diagnoses Not on filedocumented in this encounter Care Teams Traverse Rod Assembler Relationship Specialty Start Date End Date Evelyne Hunt, MEERA [address] [place] [address] PCP - General 08/19/19 documented as of this encounter
--- OUTSIDE RECORDS SUMMARY | 2023-12-01 02:20 | XMS_ITS | Encounter Summary ---
Author Organization [facility] Address [address] [place] [address] Care Team Providers Care Licensed Prosthetist/Orthotist Name Role Phone WalterPa Paloma STEVEN Primary Care Provider [phone] Encounter Details Date Type Department Care Team (Late st Contact Info) Description 08/26/2013 Results Only [facility] - [facility] ([facility]) [address] [place], [place] [address] Jalen Tripathi MD [address] [place] [id number] Social History Tobacco Use Types Packs/Day Years [...] Date/Time Associated Diagnosis Comments SURGICAL PATHOLOGY Routine 08/26/2013 18 :04 EDT documented in this encounter Results * SURGICAL PATHOLOGY (08/26/2013 18:04 EDT) Pathology Report: SURGICAL PATHOLOGY REPORT Reports generated via electronic interface contain original data; however they are lacking the format of the original report. Caution should be taken when reading/interpreti ng unformatted reports. Name: ? KELVIN WALLER ? Accession #: ? [id number] ? : ? 1960 (Age: 52) ??F ? Collect Date: ? 08/26/2013 ? Location: ? [facility] ? Receive Date: ? 08/27/2013 ? Provider: JALEN TRIPATHI MD Copy to: PAETHAN WATSON SOFTWARE TEST ANALYST ? Final Pathologic Diagnosis: APPENDIX, APPENDECTOMY: - ??Acute appendicitis and periappendicitis. Document reviewed and electronically signed by: JENNA CABEZAS MD Report ??Date: 09/01/2013 10:45 By the signature above, the attending physician certifies that he/she has personally conducted a gross and/or microscopic examination of the described specimens and rendered or confirmed the above diagnosis. Specimen(s) Received: Appendix Clinical History: Acute appendicitis Gross Description: ? Received in formalin labelled with proper patient identification (initials B, K) and appendix is a vermiform appendix (6.0 cm in length x 0.9 cm in diameter) with moderate mesoappendix. The proximal margin is stapled. ? The serosa is champion-foster, smooth, and dusky. The cut surface is foster-white with focal red granular mucosa. The average wall thickness is 0.1 cm, with no discernable perforation site. The lumen ranges from 0.5 cm to 0.8 cm in diameter and contains a single hard brown fecalith (0.6 cm). The proximal margin is inked blue. ? The section adjacent to the proximal stapled margin, one statement services representative cross section, and one-half of the longitudinally bisected distal tip are submitted in cassette 1. Praveena Vallejo 08/30/2013 08:39 AM End of Report [facility] 08/26/2013 18:0 4 EDT 08/27/2013 18:04 EDT Jalen Tripathi MD PATHOLOGY ORDERABLE S Performing Organization Address City/State/[facility] Co de Phone Number [facility] [address] [place] [address] documented in this encounter Visit Diagnoses Not on filedocumented in this encounter Care Teams Licensed Prosthetist/Orthotist Relationship Specialty Start Date End Date Pa Watson APRN [address] [place] [address] PCP - General 06/03/12 08/18/19 documented as of this encounter
--- OUTSIDE RECORDS SUMMARY | 2023-12-01 02:20 | XMS_ITS | Encounter Summary ---
Author Organization [facility] Address [address] [place] [address] Care Team Providers Care Web Offset Press Feeder Name Role Phone Unavailable Primary Care Provider Unavailabl e Encounter Details Date Type Department Care Team (Late st Contact Info) Description 02/25/2001 Results Only [facility] [place] conversion [address] [place] [address] Angie Gonzalez, MEERA Social History Tobacco Use [...] Priority Date/Time Associated Diagnosis Comments CYTOPATHOLOGY Routine 02/25/2001 0:00 EST documented in this encounter Results * CYTOPATHOLOGY (02/25/2001 0:00 EST) Pathology Report: CYTOPATHOLOGY REPORT Reports generated via electronic interface contain original data; however they are lacking the format of the original report. Caution should be taken when reading/interpreti ng unformatted reports. Name: ? KELVIN WALLER ? Accession #: ? [id number] : ? 1960 (Age: 40) ??F ?Collect Date: ? 02/25/2001 Location: ? [facility] ? Receive Date: ? 02/26/2001 Provider: ?ANGIE GONZALEZ HORTICULTURAL FARMWORKER Copy to: ? Specimen/Source: ?ThinPrep Pap Test, Cervix/Endocervix Last Menstrual Period: ? 02/07/01 Other: ? Additional clinical information: Recent DUB ? SPECIMEN ADEQUACY ? Satisfactory for evaluation. GENERAL CATEGORIZATION ? Within Normal Limits ? Document reviewed and electronically signed by: ? OTILIO Horn(ASCP) ? Report Date: ??02/26/2001 13:24 End of Report [facility] 02/25/2001 02/26/2001 Angie Gonzalez NP PATHOLOGY ORDERABLES [facility] [address] [place] [address] documented in this encounter Visit Diagnoses Not on filedocumented in this encounter
--- OUTSIDE RECORDS SUMMARY | 2023-12-01 02:20 | XMS_ITS | Encounter Summary ---
Author Organization [facility] Address [address] [place] [address] Care Team Providers Care Gis Software Engineer Name Role Phone Unavailable Primary Care Provider Unavailabl e Encounter Details Date Type Department Care Team (Late st Contact Info) Description 08/17/2008 Orders Only [facility] Laboratory Services - [facility] ([address] [address] Angie Gonzalez, DIVISION CHIEF Social History Tobacco Use Types Packs/Day Years Used Date Smoking Tobacco: Never Assessed Sex and Gender Information Value Date Recorded Sex Assigned at Not on file Gender Identity Female 08/19/2019 15:16 EDT Sexual Orientation Not on file documented as of this encounter Plan of Treatment Not on file documented as of this encounter Procedures Procedure Name Priority Date/Time Associated Diagnosis Comments HPV DETECTION, HIGH RISK TYPES Routine 08/17/2008 11:30 EDT CYTOPATHOLOGY Routine 08/17/2008 0:00 EDT documented in this encounter Results * HUMAN PAPILLOMA VIRUS DNA TEST (08/17/2008 11:30 EDT) Specimen Description Cervix, ThinPrep vial [facility] Result Negative for HPV types 16, 18, 31, 33, 35, 39, 45, 51, 52, 56, 58, 59, and 68. [facility] Report Status Final 08/25/2008 [facility] 08/17/2008 11:3 0 EDT 08/22/2008 11:51 EDT Angie Gonzalez DIVISION CHIEF MICROBIOLOGY - GENER AL ORDERABLES [facility] [address] [place] [address] * CYTOPATHOLOGY (08/17/2008 0:00 EDT) Pathology Report: CYTOPATHOLOGY REPORT ? Reports generated via electronic interface contain original data; ? however they are lacking the format of the original report. ? Caution should be taken when reading/interpreti ng unformatted reports. ? Name: ? KELVIN WALLER ? Accession #: ? [id number] ? : ? 1960 (Age: 47) ??F ?Collect Date: ? 08/17/2008 ? Location: ? [facility] ? Receive Date: ? 08/18/2008 ? Provider: ?ANGIE M ARLINE DIVISION CHIEF ? Copy to: ? Specimen/Source: ?Pap Test, Cervix/Endocervix, ThinPrep Imaging System ? with manual evaluation ? Last Menstrual Period: ? 04/29/09 ? Other: ? HPVDX - HPV testing requested regardless of diagnosis on current ThinPrep Pap ?? test. ? SPECIMEN ADEQUACY ? Satisfactory for Evaluation ? - transformation zone component present ? - scant squamous epithelial component secondary to excessive blood ? GENERAL CATEGORIZATION ? Negative for Intraepithelial Lesion or Malignancy ? Document reviewed and electronically signed by: ? Eleni Verville,CT(ASCP) ? Report Date: ??08/19/2008 15:08 ? End of Report ? [facility] 08/17/2008 08/18/2008 Angie Gonzalez DIVISION CHIEF PATHOLOGY ORDERABLES [facility] [address] [place] [address] documented in this encounter Visit Diagnoses Not on filedocumented in this encounter
--- OUTSIDE RECORDS SUMMARY | 2023-12-01 02:20 | XMS_ITS | Encounter Summary ---
Author Organization [facility] Address [address] [place] [address] Care Team Providers Care Sorting Machine Operator Name Role Phone Unavailable Primary Care Provider Unavailabl e Encounter Details Date Type Department Care Team (Late st Contact Info) Description 06/01/2012 Results Only [facility] Laboratory Services - [facility] ([facility]) [address] [place] [address] Hanna Baldears MD [address] [place] [address] [place] [address] Social History Tobacco Use Types Packs/Day Years [...] Date/Time Associated Diagnosis Comments SURGICAL PATHOLOGY Routine 06/01/2012 8:44 EST documented in this encounter Results * SURGICAL PATHOLOGY (06/01/2012 8:44 EST) Pathology Report: SURGICAL PATHOLOGY REPORT Reports generated via electronic interface contain original data; however they are lacking the format of the original report. Caution should be taken when reading/interpreti ng unformatted reports. Name: ? ENRIQUE WALLERE ? Accession #: ? [id number] ? : ? 1960 (Age: 51) ??F ? Collect Date: ? 06/01/2012 ? Location: ? [facility] ? Receive Date: ? 06/02/2012 ? Provider: HANNA BALDERAS MD Copy to: PA LOVING HAND SALTER ? Final Pathologic Diagnosis: ? Endometrium, biopsy: 1. ?Scant fragments of benign endocervical tissue and squamous mucosa admixed with abundant mucous. ?? 2. ?No endometrial tissue identified. Document reviewed and electronically signed by: RAHUL HARP MD Report ??Date: 06/08/2012 07:44 By the signature above, the attending physician certifies that he/she has personally conducted a gross and/or microscopic examination of the described specimens and rendered or confirmed the above diagnosis. Specimen(s) Received: ? Endometrial bx Clinical History: ? D.U.B. bleeding since 03/2012 Gross Description: ? Received in formalin labelled Luisolini, Ivana and endometrial bx are approximately 8-cc of blood-tinged mucus admixed with fragments of red-brown tissue. ??The specimen is submitted entirely as block (1)-(4) following filtration. (Chadwick Goss)/tegan End of Report [facility] 06/01/2012 8:44 EST 06/02/2012 8:44 EST Hanna Balderas MD PATHOLOGY ORDERABLES [facility] [address] [place] [address] documented in this encounter Visit Diagnoses Not on filedocumented in this encounter
--- OUTSIDE RECORDS SUMMARY | 2023-12-01 02:20 | XMS_ITS | Encounter Summary ---
Author Organization [facility] Address [address] [place] [address] Care Team Providers Care Channeler Name Role Phone Unavailable Primary Care Provider Unavailabl e Encounter Details Date Type Department Care Team (Late st Contact Info) Description 05/01/2001 Results Only [facility] conversion [address] [place] [address] Allie Montiel MD [address] [place] [address] [address] Social History Tobacco Use Types Packs/Day Years [...] Date/Time Associated Diagnosis Comments SURGICAL PATHOLOGY Routine 05/01/2001 0:00 EST documented in this encounter Results * SURGICAL PATHOLOGY (05/01/2001 0:00 EST) Pathology Report: SURGICAL PATHOLOGY REPORT Reports generated via electronic interface contain original data; however they are lacking the format of the original report. Caution should be taken when reading/interpreti ng unformatted reports. Name: ? NIALISAErmias KELVIN ? Accession #: ? [id number] ? : ? 1960 (Age: 40) ??F ? Collect Date: ? 05/01/2001 ? Location: ? [facility] ? Receive Date: ? 05/01/2001 ? Provider: ALLIE MONTIEL MD Copy to: VAL BRASWELL MD ? Final Pathologic Diagnosis: ? Endometrium, curettage: - Proliferative endometrium. ??See comment. Comment: ? The presence of rare fibrin thrombi in the stroma is suggestive of breakdown changes. ??(Dr. Hagan)/replaced by [facility] Document reviewed and electronically signed by: Girma Crawford MD Report ??Date: 05/05/2001 16:59 By the signature above, the attending physician certifies that he/she has personally conducted a gross and/or microscopic examination of the described specimens and rendered or confirmed the above diagnosis. Specimen(s) Received: ? Endometrial curettage Clinical History: ? Menorrhagia Gross Description: ? Received in formalin labelled Bertolini and endometrial curettings is a 3.8 x 3.8 x 0.5 cm aggregate of multiple red-brown hemorrhagic irregularly shaped spongy soft tissue fragments. ??The specimen is entirely submitted in cassettes (A1) and (A2). ??(Satya Brooks)/[facility] End of Report [facility] 05/01/2001 05/01/2001 15: 29 EST Allie Montiel MD PATHOLOGY ORDERABLES [facility] [address] [place] [address] documented in this encounter Visit Diagnoses Not on filedocumented in this encounter
--- NOTE | 2023-12-01 06:45 | DI.MAMMO_ITS ---
Exam(s) MAMMO SCREENING EXAM: MAMMO SCREENING CLINICAL HISTORY: screening, z12.39 TECHNIQUE: Bilateral full field digital CC and MLO mammographic images were obtained with 3D tomosyn thesis and utilizing computer aided detection (CAD). COMPARISON: Available for comparison. FINDINGS: Masses/Architectural Distortion: None seen. Microcalcifications: No suspicious pleomorphic-type are seen. Skin Thickening/Nipple Retraction: None. IMPRESSION: 1. No significant interval change with no specific features of malignancy noted. 2. Unless there is more urgent need, screening mammography is recommended, as per [employer] guidelines. BI-RADS Category 1 - Negative Breast Density - Category B - Scattered areas of fibroglandular density Breast density category C or D implies that the patient has dense breast tissue. Dense breast tissue is very common and is not abnormal but dense breast tissue can make it harder to find cancer on a ma mmogram. Also, dense breast tissue may increase their breast cancer risk. This information about the result of the mammogram report was provided to the patient to raise their awareness. Use this report when you speak with the patient about their risks for breast cancer, which includes their family hist ory. At that time, you may recommend for more screening tests (Ultrasound or MRI) as they might be us eful based on their risk. A negative radiographic report should not delay biopsy if a dominant or clinically suspicious mass is present. Up to ten percent of cancers are not identified on mammography. A negative report may reinforce clinical impression. Adenosis and dense breasts may obscure an underlying neoplasm. False positive reports average 6 to 10%. Patient will receive a letter notifying them of these results.
== END 2023-12-01 02:26 ==
LOC: DI 02:06
PROVIDERS: PCP Nurse Practitioner; Visit Provider Nurse Practitioner
DX: Z12.39 Encounter for other screening for malignant neoplasm of breast (principal); Z12.31 Encounter for screening mammogram for malignant neoplasm of breast
CPT/HCPCS: 77063; 77067

== ENCOUNTER 2023-12-18 04:35 | Outpatient (CLI) | payer MEDICARE, SELFPAY ==
[2023-12-18 10:23] LABS: Abs Immature Grans 0.01 10^3/uL (0.0-0.06); Absolute Basophil Count 0.08 10^3/uL (0.0-0.2); Absolute Eosinophil Count 0.23 10^3/uL (0.0-0.7); Absolute Lymphocyte Count 1.73 10^3/uL (1.2-3.4); Absolute Monocyte Count 0.45 10^3/uL (0.1-0.8); Absolute Neutrophil Count 3.27 10^3/uL (1.2-6.7); Basophils % 1.4 %; HGB 15.2 g/dL (11.2-15.7); Immature Grans % 0.2 %; MCH 33.9 pg (27.0-33.0); MCHC 33.8 % (32.0-36.0); MCV 100 fL (80-95); MPV 9.1 fL (8.0-11.0); Monocytes % 7.8 %; Neutrophils % 56.6 %; Platelet Count 218 10^3/uL (130-400); RBC 4.48 10^6/uL (3.93-5.22); RDW 11.8 % (11.7-14.6); RDW-SD 43.6 fL; WBC 5.77 10^3/uL (4.4-10.8)
[2023-12-18 10:29] LABS: Anion Gap 7.8 mmol/L (3-11); BUN 11 mg/dL (7-18); CO2 29.2 mmol/L (21.0-32.0); CREATININE 0.8 mg/dL (0.55-1.02); Calcium 9.6 mg/dL (8.5-10.1); Chloride 103 mmol/L (98-107); Estimated GFR 82.74 (mL/min/1.73m2); Glucose 79 mg/dL (74-106); Potassium 4.3 mmol/L (3.5-5.1); Sodium 140 mmol/L (136-145)
== END 2023-12-18 04:36 | disposition home or self-care (01) ==
LOC: LBO 04:36
PROVIDERS: PCP Nurse Practitioner; Visit Provider Physician Assistant
DX: I48.0 Paroxysmal atrial fibrillation (principal)
CPT/HCPCS: 36415; 80048; 85025

== ENCOUNTER 2024-08-20 15:29 | Outpatient (CLI) | payer MEDICARE, SELFPAY ==
[2024-08-20 16:28] LABS: Abs Immature Grans 0.01 10^3/uL (0.0-0.06); Absolute Basophil Count 0.06 10^3/uL (0.0-0.2); Absolute Eosinophil Count 0.18 10^3/uL (0.0-0.7); Absolute Monocyte Count 0.78 10^3/uL (0.1-0.8); Absolute Neutrophil Count 4.97 10^3/uL (1.2-6.7); Basophils % 0.8 %; Eosinophils % 2.3 %; HCT 40.3 % (36.0-46.0); HGB 14.2 g/dL (11.2-15.7); Immature Grans % 0.1 %; Lymphocytes % 22.1 %; MCH 34.7 pg (27.0-33.0); MCHC 35.2 % (32.0-36.0); MCV 99 fL (80-95); Monocytes % 10.1 %; Neutrophils % 64.6 %; Platelet Count 203 10^3/uL (130-400); RBC 4.09 10^6/uL (3.93-5.22); RDW 11.6 % (11.7-14.6); RDW-SD 42.2 fL
[2024-08-20 16:34] LABS: Hemoglobin A1C 4.8 % (<5.7)
[2024-08-20 16:54] LABS: ALT 25 U/L (14-59); AST 23 U/L (15-37); Alkaline Phosphatase 107 U/L (46-116); Anion Gap 7.3 mmol/L (3-11); BUN 13 mg/dL (7-18); Bilirubin, Total 1.5 mg/dL (0.2-1.0); CO2 27.7 mmol/L (21.0-32.0); CREATININE 0.7 mg/dL (0.55-1.02); Calcium 9.4 mg/dL (8.5-10.1); Calculated LDL 49 mg/dL (<100); Chloride 100 mmol/L (98-107); Cholesterol 170 mg/dL (<200); Estimated GFR 97.12 (mL/min/1.73m2); Glucose 92 mg/dL (74-106); HDL Cholesterol 110 mg/dL (>or=50); Potassium 4.2 mmol/L (3.5-5.1); Sodium 135 mmol/L (136-145); TSH 2.18 uIU/mL (0.36-3.74); Total Protein 7.7 g/dL (6.4-8.2); Triglyceride 57 mg/dL (<150)
[2024-08-20 17:43] LABS: Bilirubin Negative (Negative); Blood Trace-intact (Negative); Clarity Clear (Clear); Glucose Negative (Negative); Ketones Negative (Negative); Leukocyte Esterase Negative (Negative); Nitrite Negative (Negative); Specific Gravity <= 1.005 (1.005-1.025); Urobilinogen 0.2 mg/dL (Up to 0.2)
[2024-08-20 18:01] LABS: Bacteria Few HPF (Negative); Crystals Negative HPF (Negative); Epithelial Cells Rare HPF (Negative); Mucus Negative (Negative); WBC 0-2 HPF (0-5)
[2024-08-20 18:02] LABS: C & S Indicated? No; Casts Negative LPF (Negative)
[2024-08-23 10:39] LABS: CA 125 8 U/mL (<30)
== END 2024-08-20 15:30 | disposition home or self-care (01) ==
LOC: LBO 15:29
PROVIDERS: PCP Nurse Practitioner Adult Health; Visit Provider Family Medicine
DX: Z85.43 Personal history of malignant neoplasm of ovary (principal); D64.9 Anemia, unspecified; E78.5 Hyperlipidemia, unspecified; E03.9 Hypothyroidism, unspecified; R73.9 Hyperglycemia, unspecified; Z13.9 Encounter for screening, unspecified; E86.0 Dehydration; R35.0 Frequency of micturition
CPT/HCPCS: 36415; 80053; 80061; 86304; 81003; 81015; 83036; 84443; 85025

== ENCOUNTER 2024-09-09 08:54 | Outpatient (REF) | payer MEDICARE, SELFPAY ==
[2024-09-10 14:18] LABS: Helicobacter pylori Ag, Feces Negative (Negative)
== END 2024-09-09 08:55 | disposition home or self-care (01) ==
LOC: LBN 08:54
PROVIDERS: PCP Nurse Practitioner Adult Health; Visit Provider Nurse Practitioner Adult Health
DX: R14.3 Flatulence (principal); R10.30 Lower abdominal pain, unspecified
CPT/HCPCS: 87338

== ENCOUNTER 2024-09-10 17:13 | Outpatient (REF) | payer MEDICARE, SELFPAY | END 2024-09-10 17:14 | disposition home or self-care (01) | LOC: LBN 17:13 | PROVIDERS: PCP Nurse Practitioner Adult Health; Visit Provider Nurse Practitioner Adult Health | DX: B83.9 Helminthiasis, unspecified (principal) | CPT/HCPCS: 87015; 87177; 87209; 87269; 87272 ==

== ENCOUNTER 2024-09-28 00:49 | Outpatient (CLI) | payer MEDICARE, SELFPAY ==
--- NOTE | 2024-09-28 07:30 | DI.CT_ITS ---
Exam(s) CT CHEST/ABD/PEL W EXAM: CT CHEST/ABD/PEL W CLINICAL HISTORY: ? mass/malignancy,h/o ovarian ca 2020,Z85.43 TECHNIQUE: Imaging Protocol: Axial computed tomography images with coronal and sagittal reformatted images were created and reviewed. Lung Computer Aided Detection (CAD) was utilized. CONTRAST MATERIAL: Intravenous: Omnipaque 350 contrast volume:100 mL Oral: Yes COMPARISON: CT CT ABDOMEN PELVIS W from 08/30/[address] CHEST PE CTA from 09/13/2023 FINDINGS: CHEST: Tracheobronchial tree: Patent where visualized. No evidence of bronchiectasis. Pulmonary parenchyma: No consolidation or dominant measurable mass. No suspicious pulmonary nodules a re present. Visualized thyroid gland: Unremarkable. Mediastinum and Kae: No dominant adenopathy or fluid collection. The esophagus is unremarkable. Pleura: No effusion or pneumothorax. Heart: Cardiomegaly. Coronary artery calcifications are present. There is a prosthetic aortic valve . No pericardial effusion. Pulmonary arteries: No pulmonary emboli are identified. Aorta: Ascending thoracic aorta measures 4.3 x 4.2 cm. There is no evidence of dissection. Mild ath erosclerotic calcification is present. Lymph nodes: Within normal limits. Soft tissues: Unremarkable. Bones:Within normal limits for the patient's age. Sternal wires are in place. ABDOMEN: Liver: Normal density. There is a cyst again seen in the right lobe. No suspicious hepatic masses ar e present. Portal, Superior Mesenteric, and Splenic Veins: Unremarkable. Gallbladder and Biliary Tract: No radiodense calculus or dilation. Pancreas: Normal density, no abnormal calcifications or inflammatory process. Spleen: Normal. Adrenals: No masses seen. Kidneys: Normal size, contour and axis. No radiodense stones or obstructive uropathy. No masses seen. Abdominal Aorta: Abdominal portion non-dilated. Atherosclerotic calcification is present. Bowel: There is no evidence of bowel obstruction. There is a segment of thickening of the wall of th e small bowel in the left abdomen (series 23, images 55-95.). There is an anastomosis in the rectosi gmoid junction. The patient is status post appendectomy. Peritoneal Cavity: No ascites, collection or mesenteric inflammatory response. No free air. Lymph Nodes: Within normal limits. Bones: Within normal limits for the patient's age. Soft Tissues: Unremarkable. PELVIS: Bladder: Symmetric distention, no gross wall thickening. Reproductive Organs: Unremarkable as visualized. Lymph Nodes: Within normal limits. Bones: Within normal limits. IMPRESSION: 1. There is a segment of small bowel in the left abdomen which shows wall thickening (series 23, imag es 55-95). An infectious or inflammatory process may have this appearance. This may also be seconda ry to underdistention. Neoplasm cannot be entirely excluded. Small-bowel follow-through is requeste d for further evaluation. 2. No acute pulmonary process. 3. No evidence of a pulmonary embolism or thoracic aortic dissection. RADIATION DOSE DELIVERED: 494.07mGy.cm Total DLP DATA REPOSITORY: All CT scans at this facility are submitted to the National Radiology Data Registry (NRDR) Dose Index Registry (DIR) with the [employer] (ACR). RADIATION OPTIMIZATION: All CT scans at this facility use at least one of these dose optimization te chniques: automated exposure control; mA and/or kV adjustment per patient size (includes targeted exa ms where dose is matched to clinical indication); or iterative reconstruction.
[2024-09-28] MEDS: Barium Sulfate 2% W/V-Berry Smoothie 450 ML BTL PO ×2 (12:01→12:02)
[2024-09-28] MEDS: Normal Saline - Diluent 50 ML VIAL IJ (14:10)
[2024-09-28] MEDS: Omnipaque 350 MG/ML 100 ML BTL IJ (14:10)
== END 2024-09-28 01:09 ==
LOC: DI 00:49
PROVIDERS: PCP Nurse Practitioner Adult Health; Visit Provider Nurse Practitioner Adult Health
DX: Z85.43 Personal history of malignant neoplasm of ovary (principal); Z08 Encounter for follow-up examination after completed treatment for malignant neoplasm
CPT/HCPCS: 74177; 71260; J3490

== ENCOUNTER 2024-10-27 02:08 | Outpatient (CLI) | payer MEDICARE, SELFPAY ==
[2024-10-27] MEDS: Barium Sulfate 60% W/V 355 ML BTL PO ×2 (11:01→11:03)
--- NOTE | 2024-10-27 12:16 | DI.RAD_ITS ---
Exam(s) RF SMALL BOWEL SERIES EXAM: RF SMALL BOWEL SERIES CLINICAL HISTORY: Characterize abn small bowel finding on recent CT,ABD PAIN,R10.30,R93.5 TECHNIQUE: 2D and realtime digital imaging was performed. CONTRAST MATERIAL: Oral barium contrast was administered. COMPARISON: CT CT CHEST/ABD/PEL W from 09/28/2024 FINDINGS: The small bowel demonstrates no structural abnormalities including structure, dilation, adhesion, or mass. The terminal ileum is identified and appears unremarkable. The findings on recent CT may have been secondary to contraction. Normal transit time of 60 minutes. IMPRESSION: Normal small bowel follow-through RADIATION DOSE DELIVERED: nehemiah Cherry=9.39 mGy
== END 2024-10-27 02:28 ==
LOC: DI 02:08
PROVIDERS: PCP Nurse Practitioner Adult Health; Visit Provider Nurse Practitioner Adult Health
DX: R93.5 Abnormal findings on diagnostic imaging of other abdominal regions, including retroperitoneum (principal); R10.30 Lower abdominal pain, unspecified
CPT/HCPCS: 74250